=== PATIENT | female | born 1960 | race Caucasian/White ===

== ENCOUNTER 2018-01-17 21:27 | Inpatient (IN) | payer OTHER ==
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
--- OUTSIDE RECORDS SUMMARY | 2018-01-17 21:30 | XMS REPORT ---
:1960 [facility] [address] [place] [address] Care Team Providers Name Role Phone HESHAM MENDOZA Unavailable Unavailable Problems This patient has no known problems. Allergies, Adverse Reactions, Alerts This patient has no known allergies or adverse reactions. Medications This patient has no known medications. Results Test Description Test Time Test Comments Text Results Atomic Results Result Comments BASIC METABOLIC PANEL 2017-02-26 05:26:00 Test Item Value Reference Range Comments SODIUM (BEAKER) (test 139 meq/L 136-145 gyoq=268) POTASSIUM (BEAKER) (test 3.5 meq/L 3.5-5.1 kmat=120) CHLORIDE (BEAKER) (test 95 meq/L 98-107 onpv=177) CO2 (BEAKER) (test yauv=186) 40 meq/L 22-29 BLOOD UREA NITROGEN (BEAKER) 14 mg/dL 7-21 (test fomj=065) CREATININE (BEAKER) (test 0.64 mg/dL 0.57-1.25 ralb=872) GLUCOSE RANDOM (BEAKER) 92 mg/dL 70-105 (test wjau=768) CALCIUM (BEAKER) (test 8.4 mg/dL 8.4-10.2 qfsl=061) EGFR (BEAKER) (test 96 mL/min/1.73 sq m ESTIMATED GFR IS NOT fydi=1843) ACCURATE CREATININE CLEARANCE IN PREDICTING GLOMERULAR FILTRATION RATE. ESTIMATED GFR IS NOT APPLICABLE FOR DIALYSIS PATIENTS. CBC (HEMOGRAM ONLY)2017-02-26 05:21:00 Test Item Value Reference Range Comments WHITE BLOOD CELL COUNT (BEAKER) (test audj=362) 6.4 K/ L 4.0-10.0 RED BLOOD CELL COUNT (BEAKER) (test mana=084) 4.17 M/ L 4.00-5.00 HEMOGLOBIN (BEAKER) (test lnol=519) 12.0 GM/DL 12.0-15.0 HEMATOCRIT (BEAKER) (test dzpe=204) 39.4 % 36.0-45.0 MEAN CORPUSCULAR VOLUME (BEAKER) (test ftjy=547) 94.4 fL 82.0-99.0 MEAN CORPUSCULAR HEMOGLOBIN (BEAKER) (test 28.8 pg 27.0-33.0 sign=281) MEAN CORPUSCULAR HEMOGLOBIN CONC (BEAKER) (test 30.5 GM/DL 32.0-36.0 vvsz=369) RED CELL DISTRIBUTION WIDTH (BEAKER) (test 13.1 % 10.3-14.2 jaah=674) PLATELET COUNT (BEAKER) (test umrp=191) 137 K/CU MM 150-430 MEAN PLATELET VOLUME (BEAKER) (test oyfk=739) 7.2 fL 6.5-10.5 NUCLEATED RED BLOOD CELLS (BEAKER) (test 0 /100 WBC 0-0 rvif=164) 0.00POCT-GLUCOSE [id number] 17:50:00 Test Item Value Reference Range Comments POC-GLUCOSE METER (BEAKER) 118 mg/dL 70-110 TESTED AT [address] (test wnkm=3614) [place] [address] POCT-GLUCOSE [id number] 11:59:00 Test Item Value Reference Range Comments POC-GLUCOSE METER (BEAKER) 247 mg/dL 70-110 TESTED AT [address] (test rnou=6696) [place] [id number] POCT-GLUCOSE [id number] 07:54:00 Test Item Value Reference Range Comments POC-GLUCOSE METER (BEAKER) 141 mg/dL 70-110 TESTED AT [address] (test wdeq=0219) [place] [id number] CBC W/PLT COUNT & AUTO [id number] 03:45:00 Test Item Value Reference Range Comments WHITE BLOOD CELL COUNT (BEAKER) (test dmvp=436) 4.9 K/ L 4.0-10.0 RED BLOOD CELL COUNT (BEAKER) (test fyto=073) 4.03 M/ L 4.00-5.00 HEMOGLOBIN (BEAKER) (test ujop=118) 12.2 GM/DL 12.0-15.0 HEMATOCRIT (BEAKER) (test zmrs=841) 37.3 % 36.0-45.0 MEAN CORPUSCULAR VOLUME (BEAKER) (test aivy=886) 92.5 fL 82.0-99.0 MEAN CORPUSCULAR HEMOGLOBIN (BEAKER) (test 30.3 pg 27.0-33.0 jnwu=763) MEAN CORPUSCULAR HEMOGLOBIN CONC (BEAKER) (test 32.8 GM/DL 32.0-36.0 mpiz=810) RED CELL DISTRIBUTION WIDTH (BEAKER) (test 14.3 % 10.3-14.2 nfrl=749) PLATELET COUNT (BEAKER) (test ptgh=119) 122 K/CU MM 150-430 MEAN PLATELET VOLUME (BEAKER) (test eloo=281) 8.0 fL 6.5-10.5 NUCLEATED RED BLOOD CELLS (BEAKER) (test 0 /100 WBC 0-0 sizq=618) NEUTROPHILS RELATIVE PERCENT (BEAKER) (test 88 % cwgp=997) LYMPHOCYTES RELATIVE PERCENT (BEAKER) (test 10 % ijzy=593) MONOCYTES RELATIVE PERCENT (BEAKER) (test 2 % cwsv=253) EOSINOPHILS RELATIVE PERCENT (BEAKER) (test 0 % sipz=881) BASOPHILS RELATIVE PERCENT (BEAKER) (test 0 % fedd=027) NEUTROPHILS ABSOLUTE COUNT (BEAKER) (test 4.32 K/ L 1.80-8.00 vkcr=475) LYMPHOCYTES ABSOLUTE COUNT (BEAKER) (test 0.49 K/ L 1.48-4.50 yegy=976) MONOCYTES ABSOLUTE COUNT (BEAKER) (test 0.09 K/ L 0.00-1.30 yudr=512) EOSINOPHILS ABSOLUTE COUNT (BEAKER) (test 0.02 K/ L 0.00-0.50 zqsj=539) BASOPHILS ABSOLUTE COUNT (BEAKER) (test 0.01 K/ L 0.00-0.20 askk=574) [id number] 03:29:00 Test Item Value Reference Range Comments MAGNESIUM (BEAKER) (test 1.8 mg/dL 1.6-2.6 Specimen slightly hemolyzed youb=656) BASIC METABOLIC [id number] 03:29:00 Test Item Value Reference Range Comments SODIUM (BEAKER) (test 139 meq/L 136-145 asol=093) POTASSIUM (BEAKER) (test 4.4 meq/L 3.5-5.1 Specimen slightly vsll=350) hemolyzed CHLORIDE (BEAKER) (test 93 meq/L 98-107 kfqj=350) CO2 (BEAKER) (test 39 meq/L 22-29 bvtv=866) BLOOD UREA NITROGEN 15 mg/dL 7-21 (BEAKER) (test ducr=706) CREATININE (BEAKER) (test 0.67 mg/dL 0.57-1.25 Specimen slightly cpde=246) hemolyzed GLUCOSE RANDOM (BEAKER) 150 mg/dL 70-105 (test hnpt=116) CALCIUM (BEAKER) (test 8.6 mg/dL 8.4-10.2 losv=898) EGFR (BEAKER) (test 91 mL/min/1.73 sq m ESTIMATED GFR IS NOT uhso=6035) ACCURATE CREATININE CLEARANCE IN PREDICTING GLOMERULAR FILTRATION RATE. ESTIMATED GFR IS NOT APPLICABLE FOR DIALYSIS PATIENTS. POCT-GLUCOSE [id number] 00:05:00 Test Item Value Reference Range Comments POC-GLUCOSE METER (BEAKER) 117 mg/dL 70-110 TESTED AT [address] (test hktq=1840) [facility] [address] POCT-GLUCOSE [id number] 18:17:00 Test Item Value Reference Range Comments POC-GLUCOSE METER (BEAKER) 141 mg/dL 70-110 TESTED AT [address] (test vyma=0026) [place] [id number] CREATINE KINASE (CK), TOTAL AND [id number] 15:43:00 Test Item Value Reference Range Comments CREATINE KINASE TOTAL (BEAKER) (test fgvl=316) 31 U/L 29-200 CREATINE KINASE-MB (BEAKER) (test klzi=573) 1.3 ng/mL 0.0-6.6 CREATINE KINASE-MB INDEX (BEAKER) (test hzyo=067) 4.2 % Effective 08/09/2014: CK-MB Reference Range ChangeNew: 0.0-6.6 Previous: 0.0- 4.9CK-MB Reference Range:<6.7 Normal6.7-10.0 Borderline>10.0 AbnormalBLOOD GAS, [id number] 15:26:00 Test Item Value Reference Range Comments PH ARTERIAL (BEAKER) (test cxfu=783) 7.41 7.35-7.45 PCO2 ARTERIAL (BEAKER) (test tzbg=348) 68 mmHg 35-45 PO2 ARTERIAL (BEAKER) (test qhpj=329) 67 mmHg 80-90 O2 SATURATION ARTERIAL (BEAKER) (test dyql=087) 92.2 % 96.0-97.0 HCO3 ARTERIAL (BEAKER) (test ergz=425) 42 mmol/L 21-29 BASE EXCESS ARTERIAL (BEAKER) (test jfoe=121) 14.8 mmol/L -2.0-3.0 PATIENT TEMPERATURE (BEAKER) (test ewvq=2102) 37.5 C FIO2 (BEAKER) (test udva=5670) 35.0 % POCT-GLUCOSE [id number] 11:45:00 Test Item Value Reference Range Comments POC-GLUCOSE METER (BEAKER) 122 mg/dL 70-110 TESTED AT [facility] [address] [facility] (test rmcl=4251) [facility] [address] CREATINE KINASE (CK), TOTAL AND [id number] 10:29:00 Test Item Value Reference Range Comments CREATINE KINASE TOTAL (BEAKER) (test qusm=470) 31 U/L 29-200 CREATINE KINASE-MB (BEAKER) (test dvuc=570) 1.5 ng/mL 0.0-6.6 CREATINE KINASE-MB INDEX (BEAKER) (test svww=311) 4.8 % Effective 08/09/2014: CK-MB Reference Range ChangeNew: 0.0-6.6 Previous: 0.0- 4.9CK-MB Reference Range:<6.7 Normal6.7-10.0 Borderline>10.0 AbnormalTROPONIN [id number] 10:29:00 Test Item Value Reference Range Comments TROPONIN I (BEAKER) (test zthc=410) < ng/mL 0.00-0.03 Effective 08/09/2014: Reference Range ChangeNew: 0.00-0.03 Previous 0.00- 0.15Troponin I (TnI) levels must be interpreted in the context of the presenting symptoms and the clinical findings. Elevated TnI levels indicate myocardial damage, but are not specific for ischemic heart disease. Elevated TnI levels are seen in patients with other cardiac conditions (including myocarditis and congestive heartfailure), and slight TnI elevations occur in patients with other conditions, including sepsis, renalfailure, acidosis, acute neurological disease, and persistent tachyarrhythmia.[id number] 10:22:00 Test Item Value Reference Range Comments PARTIAL THROMBOPLASTIN TIME (BEAKER) (test 22.5 seconds 22.5-36.0 sndz=518) PROTHROMBIN TIME/[id number] 10:21:00 Test Item Value Reference Range Comments PROTIME (BEAKER) (test tifc=678) 12.4 seconds 11.7-14.7 INR (BEAKER) (test ikqi=378) 0.9 <=5.9 RECOMMENDED COUMADIN/WARFARIN INR THERAPY RANGESSTANDARD DOSE: 2.0 - 3.0 Includes: PROPHYLAXIS forvenous thrombosis, systemic embolization; TREATMENT for venous thrombosis and/or pulmonary embolus.HIGH RISK: Target INR is 2.5-3.5 for patients with mechanical heart valves.BLOOD GAS, [id number] 10:17:00 Test Item Value Reference Range Comments PH ARTERIAL (BEAKER) (test kkwu=493) 7.42 7.35-7.45 PCO2 ARTERIAL (BEAKER) (test nbnj=438) 63 mmHg 35-45 PO2 ARTERIAL (BEAKER) (test kbsl=181) 51 mmHg 80-90 O2 SATURATION ARTERIAL (BEAKER) (test jawm=486) 85.7 % 96.0-97.0 HCO3 ARTERIAL (BEAKER) (test pmbm=618) 40 mmol/L 21-29 BASE EXCESS ARTERIAL (BEAKER) (test ozay=279) 12.7 mmol/L -2.0-3.0 PATIENT TEMPERATURE (BEAKER) (test jjyp=5024) 37.0 C FIO2 (BEAKER) (test wohr=8361) 40.0 % PLATELET [id number] 10:13:00 Test Item Value Reference Range Comments PLATELET COUNT (BEAKER) (test fuxg=936) 111 K/CU MM 150-430
[2018-01-17] MEDS ORDERED: METHYLPREDNISOLONE 125 MG INJ ONE (21:43)
[2018-01-17] MEDS ORDERED: IPRATROPIUM BROM 0.5MG/2.5ML ONE (21:43)
[2018-01-17] MEDS ORDERED: LEVALBUTEROL 0.63 MG/3 ML NEB ONE (21:43)
[2018-01-17] MEDS ORDERED: MEPERIDINE HCL 25 MG/0.5 ML ONE (22:26)
[2018-01-17 22:27] LABS: Absolute Lymphocytes (CBC) 2.5 K/uL (0.7-4.9); Absolute Monocytes 1.1 K/uL (0.1-1.3); Basophils % 0.3 % (0-1.3); Eosinophils % 1.1 % (0-4.4); Hematocrit 39.2 % (36.0-45.0); Lymphocytes % 25.7 % (15.3-44.8); MCH 27.6 pg (27.0-35.0); MCV 84.9 fL (80-100); MPV 7.6 fL (7.6-11.3); Monocytes % 11.3 % (3.3-12.3); RBC Red Blood Cell Count 4.62 M/uL (3.86-4.86)
[2018-01-17 22:33] LABS: Protime INR 0.84
[2018-01-17 23:10] LABS: Bicarbonate 39 mEq/L (21-31); Potassium 3.8 mEq/L (3.6-5.0); Sodium Level 141 mEq/L (135-145)
[2018-01-17 23:14] LABS: BUN Blood Urea Nitrogen 10 mg/dL (6-20); Glucose Level 103 mg/dL (65-120)
--- NOTE | 2018-01-18 00:40 | ER ---
Nurse's Notes [facility] Name: Vikki Zamudio Age: 57 yrs Sex: Female : 1960 Arrival Date: 01/17/2018 Time: 21:28 Bed 4 Private MD: Diagnosis: Chronic obstructive pulmonary disease, unspecified;Dyspnea, unspecified Presentation: 01/17 21:28 Presenting complaint: Patient states: neck pain x 1.5 weeks and was recently started on aa1 steroids and Flexeril but reports about 3 hrs ago it became worse and she started having SOB. States, "It feels like someone hit me with a baseball bat." EMS reports O2 sat on 2L home O2 was 78% which increased to 92% after breathing tx. Upon arrival to ED pt RA O2 sat 90%. Transition of care: patient was not received from another setting of care. Onset of symptoms was January 17, 2018 at 18:30. Initial Sepsis Screen: Does the patient meet any 2 criteria? No. Patient's initial sepsis screen is negative. Does the patient have a suspected source of infection? Yes: Productive cough/pneumonia. Care prior to arrival: Medication(s) given: Albuterol Neb x 1, Atrovent Neb x 1. 21:28 Method Of Arrival: EMS: [facility] aa1 21:28 Acuity: LIZETH 3 aa1 Historical: - Allergies: 21:51 Codeine; aa1 - Home Meds: 21:51 Albuterol Inhl [Active]; aspirin 81 mg Oral TbEC 1 tab once daily [Active]; prednisone aa1 20 mg oral tab 1 tab 2 times per day [Active]; clonazepam 0.5 mg oral tab 1 tab daily [Active]; cyclobenzaprine 5 mg Oral tab 1 tab nightly [Active]; fluticasone 50 mcg/actuation nasal spsn 1 spray once daily [Active]; furosemide 20 mg Oral tab 1 tab once daily [Active]; acetazolamide 250 mg Oral tab 1 tab 2 times per day [Active]; atorvastatin 20 mg oral tab 1 tab once daily [Active]; levothyroxine 112 mcg oral tab 1 tab once daily [Active]; carvedilol 6.25 mg oral tab 1 tab 2 times per day [Active]; Daliresp 500 mcg oral tab 1 tab once daily [Active]; latanoprost 0.005 % ophthalmic drop 1 drop once daily [Active]; - PMHx: 21:51 CHF; COPD; High Cholesterol; Hypertension; Hypothyroidism; Panic Attacks; aa1 - Immunization history:: Flu vaccine is not up to date. - Social history:: Smoking status: Patient/guardian denies using tobacco, the patient reports quitting approximately 0.2 years ago. - Family history:: not pertinent. - Hospitalizations: : No recent hospitalization is reported. Screenin:30 Abuse screen: Denies threats or abuse. Denies injuries from another. Nutritional aa1 screening: No deficits noted. Tuberculosis screening: No symptoms or risk factors identified. Fall Risk None identified. Assessment: 21:30 General: Appears in no apparent distress. uncomfortable, obese, Behavior is calm, aa1 cooperative, appropriate for age. Pain: Complains of pain in back and neck Pain currently is 10 out of 10 on a pain scale. Pain began 1 week ago Is continuous. Neuro: Level of Consciousness is awake, alert, obeys commands, Oriented to person, place, time, situation. Cardiovascular: Heart tones S1 S2 Rhythm is regular. Respiratory: Reports shortness of breath at rest cough that is productive, Airway is patent Respiratory effort is even, labored, Respiratory pattern is symmetrical, tachypnea Breath sounds with wheezes bilaterally. the patient has moderate shortness of breath. GI: No signs and/or symptoms were reported involving the gastrointestinal system. : No signs and/or symptoms were reported regarding the genitourinary system. EENT: No signs and/or symptoms were reported regarding the EENT system. Derm: Skin is intact, is healthy with good turgor, Skin is pink, warm \\T\\ dry. Musculoskeletal: Circulation, motion, and sensation intact. Capillary refill < 3 seconds, Range of motion: intact in all extremities. 22:32 Reassessment: Patient appears in no apparent distress at this time. Patient and/or aa1 family updated on plan of care and expected duration. Pain level reassessed. Patient is alert, oriented x 3, equal unlabored respirations, skin warm/dry/pink. Awaiting lab results. Pt reports SOB improved but still having severe pain in neck. MD notified Patient states symptoms have improved. 23:36 Reassessment: Patient appears in no apparent distress at this time. Patient and/or aa1 family updated on plan of care and expected duration. Pain level reassessed. Patient is alert, oriented x 3, equal unlabored respirations, skin warm/dry/pink. Awaiting provider reassessment. 01/18 00:34 Reassessment: Patient appears in no apparent distress at this time. Patient and/or aa1 family updated on plan of care and expected duration. Pain level reassessed. Patient is alert, oriented x 3, equal unlabored respirations, skin warm/dry/pink. Awaiting admission orders. 01:32 Reassessment: Patient appears in no apparent distress at this time. Patient is alert, aa1 oriented x 3, equal unlabored respirations, skin warm/dry/pink. Report given to Aby on 4th floor Patient denies pain at this time. Patient states feeling better. Vital Signs: 01/17 21:28 BP 169 / 105; Pulse 78; Resp 30; Temp 99.1; Pulse Ox 90% on R/A; Weight 125.19 kg; aa1 Height 5 ft. 9 in. (175.26 cm); Pain 10/10; 22:32 BP 147 / 95; Pulse 84; Resp 24; Pulse Ox 93% on 2 lpm NC; aa1 23:36 BP 125 / 72; Pulse 77; Resp 22; Pulse Ox 95% on 2 lpm NC; aa1 01/18 00:34 BP 131 / 67; Pulse 68; Resp 20; Pulse Ox 93% on 2 lpm NC; aa1 01:27 BP 154 / 87; Pulse 66; Resp 20; Temp 98.8; Pulse Ox 96% on 3 lpm NC; Pain 0/10; aa1 01/17 21:28 Body Mass Index 40.76 (125.19 kg, 175.26 cm) [facility] ED Course: 01/17 21:28 Patient arrived in ED. am2 21:28 Arm band placed on left wrist. Patient placed in an exam room, on a stretcher. aa1 21:30 Donta An MD is Attending Physician. rn 21:30 Patient has correct armband on for positive identification. Bed in low position. Call aa1 light in reach. Side rails up X2. supervisor marble on. Pulse ox on. NIBP on. Warm blanket given. 21:30 Initial lab(s) drawn, by ED staff, sent to lab. Inserted saline lock: 20 gauge in right aa1 hand, using aseptic technique. ,using aseptic technique. by García Ramirez RN. 21:31 Oxygen administration via nasal cannula \\T\\ 2L/min. aa1 21:39 Pooja Levine RN is Primary Nurse. aa1 21:44 Triage completed. aa1 22:14 X-ray completed. Portable x-ray completed in exam room. Patient tolerated procedure ml well. 22:17 XRAY CXR (1 view) In Process Unspecified. EDMS 22:35 EKG done, by ED staff, reviewed by Donta An MD. aa1 01/18 00:35 No provider procedures requiring assistance completed. Patient admitted, IV remains in aa1 place. 00:38 Sarah Young MD is Hospitalizing Provider. rn Administered Medications: 01/17 21:52 Drug: Xopenex (3) 1.25 mg Route: Inhalation; tl2 21:52 Drug: AtroVENT Aerosol 0.5 mg Route: Inhalation; tl2 21:53 Drug: SOLU-Medrol 125 mg Route: IVP; Site: right hand; tl2 22:35 Drug: Demerol 25 mg Route: IVP; Site: right hand; aa1 01/18 00:54 Follow up: Response: No adverse reaction; Pain is decreased aa1 Outcome: 00:39 Decision to Hospitalize by Provider. rn 01:54 Admitted to Tele accompanied by tech, via wheelchair, room 428, with oxygen, with aa1 chart, Report called to Aby 01:54 Condition: stable 01:54 Instructed on the need for admit, Demonstrated understanding of instructions. 01:55 Patient left the ED. aa1 Signatures: Dispatcher [employer] EDMS Pooja Levine, RN RN aa1 Candida Turcios Roman, MD MD rn Knox, Taylor, RN RN tl2 Marleny Vazquez am2 Corrections: (The following items were deleted from the chart) 01/17 23:37 23:36 BP 125 / 72; Pulse 77bpm; Resp 22bpm; Pulse Ox 93% 2 lpm Nasal Cannula; aa1 aa1
--- NOTE | 2018-01-18 00:40 | EDPHYS ---
Physician Documentation [facility] Name: Vikki Zamudio Age: 57 yrs Sex: Female : 1960 Arrival Date: 01/17/2018 Time: 21:28 Bed 4 Private MD: ED Physician Donta An HPI: 01/17 21:45 This 57 yrs old Female presents to ER via EMS with complaints of Breathing rn Difficulty. 21:45 The patient has shortness of breath at rest, with light activity. Onset: The rn symptoms/episode began/occurred this morning. Duration: The symptoms are continuous. Severity of symptoms: At their worst the symptoms were moderate in the emergency department the symptoms have improved. The patient has experienced similar episodes in the past. Reports sob, productive cough, no fever, got worse this AM, no chest pain. seen recently for "crick in my neck", given steroids. No trauma. . Historical: - Allergies: 21:51 Codeine; aa1 - Home Meds: 21:51 Albuterol Inhl [Active]; aspirin 81 mg Oral TbEC 1 tab once daily [Active]; prednisone aa1 20 mg oral tab 1 tab 2 times per day [Active]; clonazepam 0.5 mg oral tab 1 tab daily [Active]; cyclobenzaprine 5 mg Oral tab 1 tab nightly [Active]; fluticasone 50 mcg/actuation nasal spsn 1 spray once daily [Active]; furosemide 20 mg Oral tab 1 tab once daily [Active]; acetazolamide 250 mg Oral tab 1 tab 2 times per day [Active]; atorvastatin 20 mg oral tab 1 tab once daily [Active]; levothyroxine 112 mcg oral tab 1 tab once daily [Active]; carvedilol 6.25 mg oral tab 1 tab 2 times per day [Active]; Daliresp 500 mcg oral tab 1 tab once daily [Active]; latanoprost 0.005 % ophthalmic drop 1 drop once daily [Active]; - PMHx: 21:51 CHF; COPD; High Cholesterol; Hypertension; Hypothyroidism; Panic Attacks; aa1 - Immunization history:: Flu vaccine is not up to date. - Social history:: Smoking status: Patient/guardian denies using tobacco, the patient reports quitting approximately 0.2 years ago. - Family history:: not pertinent. - Hospitalizations: : No recent hospitalization is reported. ROS: 21:45 Constitutional: Negative for fever, chills, and weight loss, Eyes: Negative for injury, rn pain, redness, and discharge, Cardiovascular: Negative for chest pain, palpitations, and edema, Respiratory: + cough and sob Abdomen/GI: Negative for abdominal pain, nausea, vomiting, diarrhea, and constipation, Back: Negative for injury and pain, MS/Extremity: Negative for injury and deformity, Skin: Negative for injury, rash, and discoloration, Neuro: Negative for headache, weakness, numbness, tingling, and seizure. Exam: 21:45 Constitutional: This is a well developed, well nourished patient who is awake, alert, rn + mild tachypnea Head/Face: Normocephalic, atraumatic. Eyes: Pupils equal round and reactive to light, extra-ocular motions intact. Lids and lashes normal. Conjunctiva and sclera are non-icteric and not injected. Cornea within normal limits. Periorbital areas with no swelling, redness, or edema. ENT: dry MM, no stridor Neck: Trachea midline, no thyromegaly or masses palpated, and no cervical lymphadenopathy. Supple, full range of motion without nuchal rigidity, or vertebral point tenderness. No Meningismus. Cardiovascular: Regular rate and rhythm with a normal S1 and S2. No gallops, murmurs, or rubs. Normal PMI, no JVD. No pulse deficits. Respiratory: + mild tachypnea with poor inspiratory air movement MS/ Extremity: Pulses equal, no cyanosis. Neurovascular intact. Full, normal range of motion. Equal circumference. Neuro: Awake and alert, GCS 15, oriented to person, place, time, and situation. Cranial nerves II-XII grossly intact. Motor strength 5/5 in all extremities. Sensory grossly intact. 23:49 ECG was reviewed by the Attending Physician. rn Vital Signs: 21:28 BP 169 / 105; Pulse 78; Resp 30; Temp 99.1; Pulse Ox 90% on R/A; Weight 125.19 kg; aa1 Height 5 ft. 9 in. (175.26 cm); Pain 10/10; 22:32 BP 147 / 95; Pulse 84; Resp 24; Pulse Ox 93% on 2 lpm NC; aa1 23:36 BP 125 / 72; Pulse 77; Resp 22; Pulse Ox 95% on 2 lpm NC; aa1 01/18 00:34 BP 131 / 67; Pulse 68; Resp 20; Pulse Ox 93% on 2 lpm NC; aa1 01:27 BP 154 / 87; Pulse 66; Resp 20; Temp 98.8; Pulse Ox 96% on 3 lpm NC; Pain 0/10; aa1 01/17 21:28 Body Mass Index 40.76 (125.19 kg, 175.26 cm) [facility] MDM: 01/17 21:30 Patient medically screened. rn 01/18 00:34 Differential diagnosis: Bronchitis CHF exacerbation, Chronic Obstructive Pulmonary rn Disease pneumonia. Data reviewed: vital signs, nurses notes, lab test result(s), EKG, radiologic studies, plain films, and as a result, I will admit patient. Counseling: I had a detailed discussion with the patient and/or guardian regarding: the historical points, exam findings, and any diagnostic results supporting the discharge/admit diagnosis, lab results, radiology results, the need for further work-up and treatment in the hospital. Response to treatment: the patient's symptoms have mildly improved after treatment, and as a result, I will admit patient. Admission orders: after a detailed discussion of the patient's condition and case, the admit orders are written by me. 01/17 21:36 Order name: Blood Culture Adult (2) rn 01/17 21:36 Order name: BMP; Complete Time: 23:27 01/17 21:36 Order name: BNP rn 01/17 21:36 Order name: CBC with Diff; Complete Time: 23:27 01/17 21:36 Order name: PT-INR; Complete Time: 23:27 01/17 21:36 Order name: Ptt, Activated; Complete Time: 23:27 01/17 21:36 Order name: Troponin (emerg Dept Use Only); Complete Time: 23:27 rn 01/18 01:20 Order name: CBC with Automated Diff EDMS 01/18 01:20 Order name: CBC with Automated Diff EDMS 01/18 01:20 Order name: CBC with Automated Diff EDMS 01/18 01:20 Order name: Comprehensive Metabolic Panel EDMS 01/18 01:20 Order name: Comprehensive Metabolic Panel EDMS 01/18 01:20 Order name: Comprehensive Metabolic Panel EDMS 01/18 01:20 Order name: Magnesium EDMS 01/17 21:36 Order name: XRAY CXR (1 view) rn 01/17 21:36 Order name: EKG; Complete Time: 21:36 rn 01/17 21:36 Order name: Cardiac monitoring; Complete Time: 22:56 rn 01/17 21:36 Order name: EKG - Nurse/Tech; Complete Time: 22:39 rn 01/17 21:36 Order name: IV Saline Lock; Complete Time: 21:53 rn 01/18 01:20 Order name: Heart Healthy [facility] 01/18 01:20 Order name: Magnesium EDFL 01/18 01:20 Order name: Magnesium EDFL 01/18 01:20 Order name: Phosphorus [facility] 01/18 01:20 Order name: Phosphorus EDFL 01/18 01:20 Order name: Phosphorus [facility] 01/18 01:21 Order name: Urinalysis [facility] 01/17 21:36 Order name: Labs collected and sent; Complete Time: 21:53 rn 01/17 21:36 Order name: O2 Per Protocol; Complete Time: 21:39 rn 01/17 21:36 Order name: O2 Sat Monitoring; Complete Time: 21:39 rn EC/28 23:49 Rate is 84 beats/min. Rhythm is regular. QRS [place] is Normal. SD interval is normal. QRS rn interval is normal. QT interval is normal. No Q waves. T waves are Normal. No ST changes noted. Clinical impression: Normal ECG. Interpreted by me. Administered Medications: 21:52 Drug: Xopenex (3) 1.25 mg Route: Inhalation; tl2 21:52 Drug: AtroVENT Aerosol 0.5 mg Route: Inhalation; tl2 21:53 Drug: SOLU-Medrol 125 mg Route: IVP; Site: right hand; tl2 22:35 Drug: Demerol 25 mg Route: IVP; Site: right hand; aa1 01/18 00:54 Follow up: Response: No adverse reaction; Pain is decreased aa1 Disposition: 01/18/18 00:39 Hospitalization ordered by Sarah Young for Inpatient Admission. Preliminary diagnosis are Chronic obstructive pulmonary disease, unspecified, Dyspnea, unspecified. - Bed requested for Telemetry/MedSurg (Inpatient). - Status is Inpatient Admission. aa1 - Condition is Stable. - Problem is an acute exacerbation. - Symptoms have improved. UTI on Admission? No Signatures: Dispatcher [employer] EDMS Sheryl Olivia RN RN Pooja Cuellar RN RN aa1 Donta An MD MD rn Knox, Taylor RN RN tl2
[2018-01-18] MEDS ORDERED: MAGNESIUM HYDROXIDE 8% 30 ML PO PRN (01:17)
[2018-01-18] MEDS ORDERED: ONDANSETRON 4 MG/2 ML VIAL IV PRN (01:17)
[2018-01-18] MEDS: ALBUTEROL 2.5 MG/3 ML NEB SOL NEB SCH ×4 (02:00→19:32)
[2018-01-18] MEDS: IPRATROPIUM BROM 0.5MG/2.5ML NEB SCH ×4 (02:00→19:32)
[2018-01-18] MEDS ORDERED: CYCLOBENZAPRINE 10 MG TAB PO ONE (04:40)
[2018-01-18] MEDS: METHYLPREDNISOLONE 125 MG INJ IV SCH ×3 (05:08→17:07)
--- NOTE | 2018-01-18 06:20 | P.HP ---
Certification for Inpatient Patient admitted to: Inpatient With expected LOS: >2 Midnights Patient will require the following post-hospital care: None Practitioner: I am a practitioner with admitting privileges, knowledge of patient current condition, hospital course, and medical plan of care. Services: Services provided to patient in accordance with Admission requirements found in Title 42 Section 412.3 of the Code of Federal Regulations Patient History Date of Service: 01/18/18 Reason for admission: Acute COPD exacerbation History of Present Illness: Patient is a 57-year-old female who is well known to me from multiple admissions in the past. Patient states she has been getting weighed in her lower extremities for the last few days. She had been doing well and keeping her feet elevated had helped her quite a bit. However, she started drinking more and the swelling in her lower extremity has increased. Patient was brought into the hospital for further evaluation. Patient was given nebs, steroids, and we will also start on antibiotics. Patient may need some diuresis as well. Will need to monitor fluid status very carefully. Otherwise , patient states she stopped smoking 7 8 months ago. She does not smoke and has been doing better and caring for herself. Hopefully this will continue. At this time, we will go ahead and admit patient for treatment of COPD. Allergies codeine [Codeine] Adverse Reaction (Mild, Verified 02/07/16 19:04) itch Home Medications: Clonazepam [Klonopin*] 0.5 mg PO BID PRN #60 tab 04/26/15 Albuterol Sulfate [Proair Hfa] 8.5 gm IH Q6HP PRN 10/22/15 Formoterol Fumarate [Perforomist*] 20 mcg NEB BIDRESP #60 vial.neb 06/02/16 Levothyroxine [Synthroid*] 0.075 mg PO DAILYAC #30 tab 06/02/16 Pantoprazole [Protonix Tab*] 40 mg PO DAILYAC #30 tab 06/02/16 Prednisone [Deltasone*] 10 mg PO DAILY 9 Days #21 tab 09/12/17 Atorvastatin Calcium [Atorvastatin Calcium] 20 mg PO BEDTIME 10/10/17 Carvedilol [Carvedilol] 6.25 mg PO BID 10/10/17 Fluticasone [Flonase 50MCG Nasal [place]*] 1 spr IN DAILY 10/10/17 Furosemide [Furosemide] 20 mg PO DAILY 10/10/17 Latanoprost Ophth [Xalatan 0.005%*] 1 gtt EACH EYE BEDTIME 10/10/17 Nicotine [Nicoderm] 1 patch TD DAILY 10/10/17 Roflumilast [Daliresp*] 500 mcg PO DAILY 10/10/17 Umeclidinium Brm/Vilanterol Tr [Anoro Ellipta 62.5-25 Mcg INH] 1 puff IH DAILY 10/10/17 Prednisone [Deltasone*] 10 mg PO BID #21 tab 10/14/17 Acetazolamide [Diamox*] 250 mg PO BID #60 tab 10/20/17 Prednisone [Deltasone*] 10 mg PO BID 7 Days #14 tab 10/20/17 - Past Medical/Surgical History Has patient received pneumonia vaccine in the past: Yes Diabetic: No -: Severe COPD, oxygen/steroid dependent,Pulmonary-Dr. Do -: Mild pulmonary hypertension -: Hypothyroidism -: Bipolar disorder -: Hypertension -: Chronic low back pain -: Obstructive sleep apnea -: Tobacco abuse -: Appendectomy -: Psychosocial/ Personal History: She lives with a partner. She has 1 child. She is currently disabled. - Family History Father Medical History: Heart disease, Diabetes Notes: from CHF Mother Medical History: Heart disease, Diabetes Notes: from CHF Brother Medical History: Diabetes Sister Medical History: Heart disease, Diabetes Notes: from CHF - Social History Smoking Status: Former smoker Alcohol use: No CD- Drugs: No Caffeine use: Yes Place of Residence: Home Review of Systems 10-point ROS is otherwise unremarkable Physical Examination - Vital Signs Temperature: 99.4 F Blood Pressure: 134/66 Pulse: 90 Respirations: 20 Pulse Ox (%): 90 - Physical Exam General: Alert, In no apparent distress, Oriented x3 HEENT: Atraumatic, PERRLA, Mucous membr. moist/pink, EOMI, Sclerae nonicteric Neck: Supple, 2+ carotid pulse no bruit, No LAD, Without JVD or thyroid abnormality Respiratory: Diminished, Expiratory wheezes Cardiovascular: Regular rate/rhythm, Normal S1 S2, No murmurs Gastrointestinal: Normal bowel sounds, Soft and benign, Non-distended, No tenderness Musculoskeletal: No clubbing, No tenderness, Swelling Integumentary: No rashes Neurological: Normal gait, Normal speech, Normal strength at 5/5 x4 extr, Normal tone, Sensation intact, Cranial nerves 3-12 intact, Normal affect Lymphatics: No axilla or inguinal lymphadenopathy - Studies Laboratory Data (last 24 hrs) 01/17/18 22:14: PT 9.9, INR 0.84, APTT 23.4 L 01/17/18 22:14: WBC 9.7, Hgb 12.7, Hct 39.2, Plt Count 165 01/17/18 22:14: B-Natriuretic Peptide 58 01/17/18 22:14: Sodium 141, Potassium 3.8, BUN 10, Creatinine 0.61, Glucose 103 Assessment & Plan - Problems (Diagnosis) (1) Acute exacerbation of chronic obstructive airways disease Onset Date: 05/09/15 Current Visit: No Status: Acute (2) Atypical angina Onset Date: 09/02/14 Current Visit: No Status: Acute (3) Fever Onset Date: 09/07/14 Current Visit: No Status: Acute Qualifiers: (4) Respiratory distress Onset Date: 05/30/16 Current Visit: No Status: Acute (5) Bipolar 1 disorder Onset Date: 09/12/14 Current Visit: No Status: Chronic (6) Hypertension Onset Date: 03/20/17 Current Visit: No Status: Chronic Qualifiers: (7) Hypothyroidism Onset Date: 09/12/14 Current Visit: No Status: Chronic Qualifiers: (8) Nicotine dependence Onset Date: 03/20/17 Current Visit: No Status: Chronic Qualifiers: (9) Obesity Onset Date: 03/05/17 Current Visit: No Status: Chronic (10) Obstructive sleep apnea Onset Date: 03/20/17 Current Visit: No Status: Chronic (11) Steroid dependent Current Visit: No Status: Chronic (12) Tobacco abuse Onset Date: 03/05/17 Current Visit: No Status: Chronic Discharge Plan: Prison Plan to discharge in: 72 Hours - Advance Directives Does patient have a Living Will: No Does patient have a Durable POA for Healthcare: No - Code Status/Comfort Care Code Status Assessed: Yes Code Status: Full Code Critical Care: No Time Spent Managing PTS Care (In Minutes): 50
[2018-01-18 07:40] LABS: Absolute Lymphocytes (CBC) 0.6 K/uL (0.7-4.9); Absolute Monocytes 0.1 K/uL (0.1-1.3); Absolute Neutrophil 8.2 K/uL (1.8-8.0); Basophils % 0.1 % (0-1.3); Eosinophils % 0.1 % (0-4.4); Lymphocytes % 6.7 % (15.3-44.8); MCH 27.5 pg (27.0-35.0); MCV 85.6 fL (80-100); MPV 7.5 fL (7.6-11.3); Monocytes % 0.9 % (3.3-12.3); RBC Red Blood Cell Count 4.44 M/uL (3.86-4.86)
[2018-01-18] MEDS: CEFTRIAXONE/SWI 1gm 1 GM/10 ML SYR IV SCH (08:31)
[2018-01-18] MEDS: ENOXAPARIN 40 MG/0.4 ML SQ SCH (08:31)
[2018-01-18 08:34] LABS: ALT/SGPT 19 IU/L (10-60); AST/SGOT 19 IU/L (10-42); Albumin 3.7 g/dL (3.2-5.5); Alkaline Phosphatase 79 IU/L (42-121); BUN Blood Urea Nitrogen 11 mg/dL (6-20); Bilirubin Total 0.4 mg/dL (0.3-1.2); Glucose Level 168 mg/dL (65-120); Phosphorus 5.4 mg/dL (2.5-4.3); Protein, Total 6.4 g/dL (6.0-8.3)
[2018-01-18 08:35] LABS: Bicarbonate 40 mEq/L (21-31); Potassium 4.9 mEq/L (3.6-5.0); Sodium Level 140 mEq/L (135-145)
[2018-01-18] MEDS ORDERED: CEFTRIAXONE 1 GM/NS 50 ML 1 GM/50 ML BAG IV SCH (09:00)
[2018-01-18] MEDS: AZITHROMYCIN IV 250 MG in NA CHLORIDE 0.9% 250 ML IVPB SCH (09:07)
--- NOTE | 2018-01-18 10:06 | RAD REPORT ---
EXAM DESCRIPTION: RAD - Chest Single View - 01/17/2018 10:17 pm CLINICAL HISTORY: Cough, dyspnea, shortness of breath COMPARISON: October 15 TECHNIQUE: AP portable chest image was obtained 2206 hours . FINDINGS: No peripheral mass, consolidation or failure finding. Patient has chronic interstitial ramo g disease that is similar to the comparison. Trachea is midline. Heart and vasculature are normal. No measurable pleural effusion and no pneumothorax. No gross bony abnormality seen. No acute aortic fin dings suspected. IMPRESSION: No acute cardiopulmonary process. Chronic interstitial lung disease is present similar to comparison.
[2018-01-18 10:12] LABS: Blood Morphology Comment NOT SEEN (NOT SEEN); Platelet Estimate ADEQ
[2018-01-18 12:55] LABS: Urine Appearance CLEAR; Urine Bilirubin NEGATIVE (NEG); Urine Blood NEGATIVE (NEG); Urine Color YELLOW; Urine Glucose NEGATIVE (NEG); Urine Protein NEGATIVE (NEG); Urine Specific Gravity 1.015 (1.005-1.030); Urine Urobilinogen 0.2 mg/dL (0.2-1.0)
[2018-01-18 13:10] LABS: Urine Microscopic Reflex NO UMIC
[2018-01-18] MEDS: CYCLOBENZAPRINE 10 MG TAB PO PRN (17:05)
[2018-01-18] MEDS: BENZONATATE 100 MG CAP PO PRN (17:06)
[2018-01-18] MEDS: ACETAMINOPHEN 500 MG TAB PO PRN (18:46)
[2018-01-18] MEDS: NICOTINE 21 MG/PAT TD SCH (21:13)
[2018-01-18] MEDS: HYDROCODONE/APAP 10/325 TAB PO PRN (23:05)
[2018-01-19] MEDS: METHYLPREDNISOLONE 125 MG INJ IV SCH ×4 (00:35→17:38)
[2018-01-19] MEDS: IPRATROPIUM BROM 0.5MG/2.5ML NEB SCH ×4 (01:10→20:01)
[2018-01-19] MEDS: ALBUTEROL 2.5 MG/3 ML NEB SOL NEB SCH ×4 (01:10→20:01)
[2018-01-19] MEDS: HYDROCODONE/APAP 10/325 TAB PO PRN ×3 (06:22→20:34)
[2018-01-19 06:28] LABS: ALT/SGPT 17 IU/L (10-60); AST/SGOT 19 IU/L (10-42); Albumin 3.4 g/dL (3.2-5.5); Alkaline Phosphatase 69 IU/L (42-121); BUN Blood Urea Nitrogen 13 mg/dL (6-20); Bilirubin Total 0.5 mg/dL (0.3-1.2); Glucose Level 144 mg/dL (65-120); Magnesium 2.2 mg/dL (1.8-2.5); Phosphorus 4.3 mg/dL (2.5-4.3)
[2018-01-19 06:29] LABS: Potassium 4.5 mEq/L (3.6-5.0); Sodium Level 141 mEq/L (135-145)
[2018-01-19 06:32] LABS: Bicarbonate 42 mEq/L (21-31)
[2018-01-19 06:44] LABS: Absolute Lymphocytes (CBC) 0.8 K/uL (0.7-4.9); Absolute Monocytes 0.3 K/uL (0.1-1.3); Basophils % 0.1 % (0-1.3); Hematocrit 35.8 % (36.0-45.0); MCH 27.7 pg (27.0-35.0); MCV 84.4 fL (80-100); MPV 7.8 fL (7.6-11.3); Monocytes % 3.5 % (3.3-12.3); RBC Red Blood Cell Count 4.25 M/uL (3.86-4.86)
--- NOTE | 2018-01-19 07:19 | EKG ---
Test Date: 2018-01-17 Test Time: 22:33:05 Middleware Architect: MEASUREMENT RESULTS: Intervals: Rate: 94 DC: 142 QRSD: 78 QT: 360 QTc: 450 [place]: P: 84 DC: 142 QRS: 78 T: 69 INTERPRETIVE STATEMENTS: Sinus rhythm with sinus arrhythmia Normal ECG Compared to ECG 10/15/2017 05:01:57 Right-axis deviation no longer present Myocardial infarct finding no longer present Electronically Signed On 01-19-18 07:18:47 CDT by Carlos Montaño
[2018-01-19 07:40] LABS: Blood Morphology Comment NOT SEEN (NOT SEEN); Platelet Estimate ADEQ; Urine White Blood Cell Casts OK
[2018-01-19] MEDS: ENOXAPARIN 40 MG/0.4 ML SQ SCH (08:56)
[2018-01-19] MEDS: NICOTINE 21 MG/PAT TD SCH (08:57)
[2018-01-19] MEDS: AZITHROMYCIN IV 250 MG in NA CHLORIDE 0.9% 250 ML IVPB SCH (08:58)
[2018-01-19] MEDS: CEFTRIAXONE/SWI 1gm 1 GM/10 ML SYR IV SCH (09:00)
--- NOTE | 2018-01-19 10:33 | EKG ---
Test Date: 2018-01-17 Test Time: 22:33:58 [employer]el Supervisor: MEASUREMENT RESULTS: Intervals: Rate: 84 [place]: 146 QRSD: 84 QT: 364 QTc: 430 [place]: P: 72 [place]: 146 QRS: 77 T: 72 INTERPRETIVE STATEMENTS: Sinus rhythm with marked sinus arrhythmia Otherwise normal ECG Compared to ECG 01/17/2018 22:33:05 No significant changes Electronically Signed On 01-19-18 10:32:42 CDT by Carlos Montaño
[2018-01-19] MEDS: BENZONATATE 100 MG CAP PO PRN (12:28)
[2018-01-19] MEDS ORDERED: TRAMADOL HCL 50 MG TAB PO PRN (13:20)
[2018-01-19] MEDS: LORazepam 2 MG/ML VIAL IV PRN ×2 (13:42→20:19)
[2018-01-19 15:14] LABS: Arterial Blood Carboxyhemoglob 1.3 % (0-1.5); Blood Gas Oxyhemoglobin 77.2 % (94-97); Blood O2 Saturation 79.6 % (92-98.5)
--- NOTE | 2018-01-19 15:48 | RAD REPORT ---
EXAM DESCRIPTION: Nel Single View01/19/2018 3:18 pm CLINICAL HISTORY: Shortness of breath COMPARISON: January 17 FINDINGS: The lungs appear clear of acute infiltrate. The heart is normal size IMPRESSION: No acute abnormalities displayed
[2018-01-19] MEDS ORDERED: LORazepam 2 MG/ML VIAL IV ONE (17:31)
--- NOTE | 2018-01-19 18:25 | P.PN ---
Subjective Date of Service: 01/19/18 Primary Care Provider: Dr. Enriquez Chief Complaint: Acute COPD exacerbation Subjective: Other (Patient with respiratory distress. Patient was having increasing shortness of breath with anxiety. She also reported some neck pain.) Physical Examination - Vital Signs Temperature: 97.8 F Blood Pressure: 136/60 Pulse: 73 Respirations: 20 Pulse Ox (%): 87 - Physical Exam General: Alert, Other (Patient appears very anxious but appropriate. Patient answers questions.) HEENT: Atraumatic Neck: Supple Respiratory: Expiratory wheezes (Bilateral), Other (Poor inspiration and expiration.) Cardiovascular: Abnormal pulses (Sinus tachycardia) Gastrointestinal: Normal bowel sounds, Non-distended, No ascites, No tenderness , No masses, No rebound Musculoskeletal: No erythema, No tenderness, No warmth Integumentary: No erythema, No warmth, No cyanosis, Tenderness/swelling (Mild edema to the lower extremities) Neurological: Normal speech, Normal strength at 5/5 x4 extr, Normal tone, Normal affect - Studies Medications List Reviewed: Yes Assessment & Plan - Problems (Diagnosis) (1) Acute and chronic respiratory failure ([id number]-[id number]) Onset Date: 03/05/17 Current Visit: No Status: Acute Plan: Patient was on a nasal cannular earlier. Patient was having increasing shortness of breath. ABG ordered. Patient switched to BiPAP. Patient still with increased anxiety. Patient still tachypneic at times. Will transition the patient to ICU for close monitoring. Will discuss case with pulmonology. If her condition continues the patient may need to be intubated. Will recheck ABG. X-ray shows no significant pneumonia. Patient on DVT prophylaxis, IV antibiotic therapy, IV steroids, and medication for anxiety. Will continue monitor patient closely. Patient currently on BiPAP. Patient started on her medications for CHF. Patient likely has underlying obesity hypoventilation syndrome. Will discuss case with PCP who will take over tomorrow. Qualifiers: Respiratory failure complication: hypoxia and hypercapnia Qualified Code(s) : J96.21 - Acute and chronic respiratory failure with hypoxia; J96.22 - Acute and chronic respiratory failure with hypercapnia; J96.22 - Acute and chronic respiratory failure with hypercapnia; J96.22 - Acute and chronic respiratory failure with hypercapnia (2) Acute exacerbation of chronic obstructive airways disease Onset Date: 05/09/15 Current Visit: No Status: Acute Plan: Will continue with BiPAP. Will recheck ABG. Patient on IV steroids, COPD medication. Pulmonology consulted. Await further recommendation. (3) Acute respiratory acidosis Onset Date: 02/08/16 Current Visit: No Status: Acute Plan: Will recheck ABG. Will continue monitor closely. Patient be transferred to ICU. (4) CHF (congestive heart failure) Onset Date: 05/09/15 Current Visit: No Status: Chronic Plan: Patient with history of CHF. This is likely diastolic dysfunction. Patient on Lasix. Will continue with this. Will give IV Lasix at this time. Qualifiers: Heart failure type: diastolic Heart failure chronicity: acute on chronic Qualified Code(s): I50.33 - Acute on chronic diastolic (congestive) heart failure (5) Bipolar 1 disorder Onset Date: 09/12/14 Current Visit: No Status: Chronic Plan: Will need to review home medication. Will provide medication for anxiety. (6) Hypertension Onset Date: 03/20/17 Current Visit: No Status: Chronic Plan: Will continue with her medication. Will monitor and adjust appropriately. Qualifiers: Hypertension type: essential hypertension (7) Hypothyroidism Onset Date: 09/12/14 Current Visit: No Status: Chronic Plan: Will continue with her thyroid medication. Qualifiers: (8) Nicotine dependence Onset Date: 03/20/17 Current Visit: No Status: Chronic Plan: Will provide nicotine patch. Cessation addressed. Qualifiers: (9) Obesity Onset Date: 03/05/17 Current Visit: No Status: Chronic Plan: Will address lifestyle modification education. Qualifiers: Obesity type: due to excess calories Obesity classification: adult class 3 (BMI >= 40) Serious obesity comorbidity presence: with serious comorbidity Body mass index: BMI 40.0-44.9 Qualified Code(s): E66.01 - Morbid (severe) obesity due to excess calories; Z68.41 - Body mass index (BMI) 40.0-44.9, adult ; Z68.41 - Body mass index (BMI) 40.0-44.9, adult; Z68.41 - Body mass index (BMI ) 40.0-44.9, adult; Z68.41 - Body mass index (BMI) 40.0-44.9, adult (10) Obstructive sleep apnea Onset Date: 03/20/17 Current Visit: No Status: Chronic Plan: Will continue with CPAP at night. (11) Obesity hypoventilation syndrome Current Visit: Yes Status: Acute Plan: Will continue as above. Await further recommendations from pulmonology. Discharge Plan: Home Plan to discharge in: Greater than 2 days Time Spent Managing Pts Care (In Minutes): 55
[2018-01-19] MEDS ORDERED: FUROSEMIDE 40 MG/4 ML VIAL IV ONE (18:33)
[2018-01-19 18:39] LABS: Arterial Blood Carboxyhemoglob 1.4 % (0-1.5); Blood Gas Oxyhemoglobin 89.2 % (94-97); Blood O2 Saturation 92.2 % (92-98.5)
[2018-01-19] MEDS: CYCLOBENZAPRINE 10 MG TAB PO PRN (20:34)
[2018-01-19] MEDS: acetaZOLAMIDE 250 MG TAB PO SCH (20:35)
[2018-01-19] MEDS: CARVEDILOL 6.25 MG TAB PO SCH (20:35)
[2018-01-19] MEDS: ATORVASTATIN 20 MG TAB PO SCH (20:35)
[2018-01-19 22:45] LABS: Arterial Blood Carboxyhemoglob 1.4 % (0-1.5); Blood Gas Oxyhemoglobin 79.7 % (94-97); Blood O2 Saturation 82.4 % (92-98.5)
[2018-01-20 00:22] LABS: Arterial Blood Carboxyhemoglob 1.4 % (0-1.5); Blood Gas Oxyhemoglobin 86.7 % (94-97); Blood O2 Saturation 89.7 % (92-98.5)
[2018-01-20] MEDS: METHYLPREDNISOLONE 125 MG INJ IV SCH ×4 (00:34→17:40)
[2018-01-20] MEDS ORDERED: RSI MEDICATION KIT IV ONE (01:36)
[2018-01-20] MEDS ORDERED: PROPOFOL 1,000 MG/100 ML VIAL IV ONE (01:42)
[2018-01-20] MEDS ORDERED: ETOMIDATE 20 MG/10 ML VIAL IV ONE ×3 (01:48→10:44)
[2018-01-20] MEDS ORDERED: PROPOFOL 1,000 MG/100 ML VIAL IV PRN (02:00)
[2018-01-20] MEDS ORDERED: NA CHLORIDE 0.9% 250 ML ONE ×2 (02:21→02:34)
--- NOTE | 2018-01-20 02:28 | P.PN ---
Date of Service: 01/20/18 The patient gradually become more exauted, ABG shows CO2 escalating from 109 to 132, PH 7.11 on BiPAP. It was decided to intubate the patient. This was a difficult procedure and she was at risk for aspiration. Will change antibiotics for Zosyn. D/C Rocephin and Azithromycin.
[2018-01-20] MEDS ORDERED: NA CHLORIDE 0.9% 100 ML ONE (02:31)
[2018-01-20] MEDS ORDERED: NOREPINEPHRINE 4 MG/4 ML VIAL ONE (02:32)
[2018-01-20] MEDS ORDERED: NOREPINEPHRINE 4 MG in D5W 250 ML IV PRN (02:35)
[2018-01-20] MEDS ORDERED: FENTANYL CITR 100 MCG/2 ML ONE (02:36)
[2018-01-20] MEDS: IPRATROPIUM BROM 0.5MG/2.5ML NEB SCH ×4 (02:42→19:36)
[2018-01-20] MEDS: ALBUTEROL 2.5 MG/3 ML NEB SOL NEB SCH ×4 (02:42→19:36)
[2018-01-20] MEDS ORDERED: DOPAMINE/D5W 0 MG/0 ML BAG IV ONE (02:52)
[2018-01-20 03:06] LABS: Arterial Blood Carboxyhemoglob 1.6 % (0-1.5); Blood Gas Oxyhemoglobin 95.6 % (94-97); Blood O2 Saturation 98.8 % (92-98.5)
[2018-01-20 03:31] LABS: Potassium 4.9 mEq/L (3.6-5.0)
[2018-01-20 05:50] LABS: Arterial Blood Carboxyhemoglob 1.8 % (0-1.5); Blood Gas Oxyhemoglobin 82.5 % (94-97); Blood O2 Saturation 85.4 % (92-98.5)
[2018-01-20] MEDS ORDERED: PIPER/TAZO/NS 3.375gm 3.375 GM/100 ML BAG IVPB SCH (06:00)
[2018-01-20] MEDS: LEVOTHYROXINE SOD 0.112 MG TAB PO SCH (06:30)
--- NOTE | 2018-01-20 06:37 | RAD REPORT ---
EXAM DESCRIPTION: RAD - Chest Single View - 01/20/2018 4:15 am CLINICAL HISTORY: PICC line placement COMPARISON: January 20, 2018 FINDINGS: Two portable chest films were obtained following placement of a right upper extremity PICC line. The initial image shows the left subclavian PICC line extending across the midline tracking ou tward into the right subclavian vein. The second, final image shows the tip of the left subclavian PI CC line in the proximal SVC.
--- NOTE | 2018-01-20 06:43 | RAD REPORT ---
EXAM DESCRIPTION: RAD - Chest Single View - 01/20/2018 2:18 am CLINICAL HISTORY: Intubation, respiratory distress COMPARISON: January 19 TECHNIQUE: AP portable chest image was obtained 0206 hours supine position . FINDINGS: No new or enlarging lung parenchymal process. Trachea is midline. Heart and vasculature ar e normal. No measurable pleural effusion and no pneumothorax. ET tube tip is top of the aortic arch T 3 -T4 level. Gastric tube extends below the diaphragm, off the field of view. No acute aortic finding s suspected. IMPRESSION: Endotracheal tube tip is T3-4 level top of the aortic arch. Gastric tube extends below t he diaphragm. Heart, vasculature and lung markings are not outside of normal range.
[2018-01-20] MEDS ORDERED: NA CHLORIDE 0.9% 250 ML IV PRN (07:24)
--- NOTE | 2018-01-20 07:27 | P.CNS ---
Date of Consult: 01/20/18 Reason for Consult: Respiratory failure Primary Care Provider: Dr. Enriquez Chief Complaint: Acute COPD exacerbation History of Present Illness: Patient is 57 years of age recurrent hospital admissions terminal COPD admitted with worsening dyspnea hypoxemia intolerance to BiPAP and was subsequently intubated last night she is alert responsive cooperative right now wants to be extubated hemodynamically stable no evidence of sepsis Allergies codeine [Codeine] Adverse Reaction (Mild, Verified 02/07/16 19:04) itch Home Medications: Albuterol Sulfate [Proair Hfa] 8.5 gm IH DAILY 10/22/15 Atorvastatin Calcium [Atorvastatin Calcium] 20 mg PO BEDTIME 10/10/17 Carvedilol [Carvedilol] 6.25 mg PO BID 10/10/17 Fluticasone [Flonase 50MCG Nasal Bruno*] 1 spr IN DAILY 10/10/17 Furosemide [Furosemide] 20 mg PO DAILY 10/10/17 Latanoprost Ophth [Xalatan 0.005%*] 1 gtt EACH EYE BEDTIME 10/10/17 Nicotine [Nicoderm] 1 patch TD DAILY 10/10/17 Roflumilast [Daliresp*] 500 mcg PO DAILY 10/10/17 Umeclidinium Brm/Vilanterol Tr [Anoro Ellipta 62.5-25 Mcg INH] 1 puff IH DAILY 10/10/17 Acetazolamide [Diamox*] 250 mg PO BID #60 tab 10/20/17 Aspirin [Aspirin EC 81 MG] 81 mg PO DAILY 01/18/18 Clonazepam [Klonopin*] 0.5 mg PO DAILY 01/18/18 Cyclobenzaprine HCl [Flexeril] 5 mg PO BEDTIME 01/18/18 Levothyroxine [Synthroid*] 112 mcg PO DAILYAC 01/18/18 Prednisone [Deltasone*] 20 mg PO BID 01/18/18 - Past Medical/Surgical History Diabetic: No -: Severe COPD, oxygen/steroid dependent,Pulmonary-Dr. Do -: Mild pulmonary hypertension -: Hypothyroidism -: Bipolar disorder -: Hypertension -: Chronic low back pain -: Obstructive sleep apnea -: Tobacco abuse -: Appendectomy -: Psychosocial/ Personal History: She lives with a partner. She has 1 child. She is currently disabled. - Family History Father Medical History: Heart disease, Diabetes Notes: from CHF Mother Medical History: Heart disease, Diabetes Notes: from CHF Brother Medical History: Diabetes Sister Medical History: Heart disease, Diabetes Notes: from CHF - Social History Smoking Status: Current every day smoker Alcohol use: No CD- Drugs: No Caffeine use: Yes Place of Residence: Home Review of Systems is unable to be obtained Physical Examination Temp Pulse Resp BP Pulse Ox 98.7 F 74 14 91/60 96 01/20/18 04:00 01/20/18 07:00 01/20/18 07:00 01/20/18 07:00 01/20/18 07:00 General: Alert, Cooperative Neck: Supple Respiratory: Clear to auscultation bilaterally, Diminished Cardiovascular: No edema, Normal pulses Gastrointestinal: Normal bowel sounds, Soft and benign Musculoskeletal: No clubbing, No swelling, No contractures Integumentary: No rashes, No breakdown - Problems (1) Acute and chronic respiratory failure (wyqdq-nv-[id number]) Onset Date: 03/05/17 Current Visit: No Status: Acute Plan: Patient is 57 years of age admitted with acute on chronic respiratory failure recurrent hospital admissions frequent exacerbations intermittent smoker terminal COPD no evidence of sepsis chest x-rays clear white count is normal became worse overnight and had to be intubated start patient on bra 9 9 ipratropium cultures are pending wean off propofol rule out pulmonary embolism change to SIMV Qualifiers: Respiratory failure complication: hypoxia and hypercapnia Qualified Code(s) : J96.21 - Acute and chronic respiratory failure with hypoxia; J96.22 - Acute and chronic respiratory failure with hypercapnia; J96.22 - Acute and chronic respiratory failure with hypercapnia; J96.22 - Acute and chronic respiratory failure with hypercapnia
[2018-01-20] MEDS ORDERED: IPRATROPIUM BROM 0.5MG/2.5ML NEB SCH (08:00)
[2018-01-20] MEDS: ARFORMOTEROL TARTRATE 15 MCG/2 ML VIAL.NEB NEB SCH ×2 (08:04→19:34)
--- NOTE | 2018-01-20 08:13 | P.PN ---
Subjective Date of Service: 01/20/18 Primary Care Provider: Dr. Enriquze Chief Complaint: Acute COPD exacerbation Subjective: No new changes Review of Systems is unable to be obtained Physical Examination - Vital Signs Temperature: 98.7 F Blood Pressure: 91/60 Pulse: 74 Respirations: 14 Pulse Ox (%): 96 - Physical Exam General: Unresponsive (on propfol) HEENT: Atraumatic, PERRLA, EOMI Neck: Supple, JVD not distended Respiratory: Clear to auscultation bilaterally, Diminished Cardiovascular: Regular rate/rhythm, Normal S1 S2 Gastrointestinal: Normal bowel sounds, No tenderness Musculoskeletal: No tenderness Integumentary: No rashes Neurological: Normal speech, Normal tone, Normal affect Lymphatics: No axilla or inguinal lymphadenopathy - Studies Medications List Reviewed: Yes Assessment & Plan - Problems (Diagnosis) (1) Acute and chronic respiratory failure (zecms-vp-[id number]) Onset Date: 03/05/17 Current Visit: No Status: Acute Plan: Patient to have a ct today to rule out PE. If negative will most likely try stopping the propfol and weaning her off the vent. Qualifiers: Respiratory failure complication: hypoxia and hypercapnia Qualified Code(s) : J96.21 - Acute and chronic respiratory failure with hypoxia; J96.22 - Acute and chronic respiratory failure with hypercapnia; J96.22 - Acute and chronic respiratory failure with hypercapnia; J96.22 - Acute and chronic respiratory failure with hypercapnia (2) CHF (congestive heart failure) Onset Date: 05/09/15 Current Visit: No Status: Chronic Plan: She is not currently fluid overloaded Lungs are clear Qualifiers: Heart failure type: diastolic Heart failure chronicity: acute on chronic Qualified Code(s): I50.33 - Acute on chronic diastolic (congestive) heart failure (3) Tobacco abuse Onset Date: 03/05/17 Current Visit: No Status: Chronic Plan: Will need to [place] tobacco cessation again. She has had multiple intubations due to smoking. The patient is aware. however it is a bad addiction to treat. Discharge Plan: Home Plan to discharge in: Greater than 2 days - Code Status/Comfort Care Code Status Assessed: No Code Status: Full Code Physician Review: Patient Assessed, Agree with Above Assessment and Plan Critical Care: Yes Time Spent Managing Pts Care (In Minutes): 20
[2018-01-20] MEDS: FUROSEMIDE 40 MG/4 ML VIAL IV SCH (08:24)
[2018-01-20] MEDS: acetaZOLAMIDE 250 MG TAB PO SCH ×2 (08:25→21:25)
[2018-01-20] MEDS: NICOTINE 21 MG/PAT TD SCH (08:26)
[2018-01-20] MEDS: ENOXAPARIN 40 MG/0.4 ML SQ SCH (08:27)
[2018-01-20] MEDS: ROFLUMILAST 500 MCG TABLET PO SCH (08:27)
[2018-01-20] MEDS: ASPIRIN EC 81 MG TAB PO SCH (08:28)
[2018-01-20] MEDS: FAMOTIDINE 20 MG/2 ML VIAL IV SCH ×2 (08:51→21:24)
[2018-01-20] MEDS: PIPER/TAZO/NS 3.375gm 3.375 GM/100 ML BAG IVPB SCH ×2 (08:51→16:18)
[2018-01-20] MEDS: CARVEDILOL 6.25 MG TAB PO SCH ×2 (09:00→21:00)
[2018-01-20] MEDS ORDERED: FUROSEMIDE 40 MG/4 ML VIAL IV SCH (09:00)
[2018-01-20] MEDS ORDERED: FUROSEMIDE 20 MG TABLET PO SCH (09:00)
[2018-01-20] MEDS: FLUTICASONE 50MCG NASAL SPRAY NAS SCH (09:00)
[2018-01-20] MEDS ORDERED: SUCCINYLCHOLINE 20 MG/ML (10 ML) IV ONE (10:44)
[2018-01-20] MEDS: FENTANYL CITR 100 MCG/2 ML IV PRN ×3 (10:52→18:11)
--- NOTE | 2018-01-20 11:09 | RAD REPORT ---
EXAM DESCRIPTION: CT - Chest For Pe Angio - 01/20/2018 10:43 am CLINICAL HISTORY: Chest pain, shortness of breath, possible pulmonary embolism COMPARISON: Portable chest January 20, 2018 TECHNIQUE: Dynamically enhanced 3 mm thick images of the chest were obtained during administration o f approximately 150mL Isovue 370 IV contrast. Coronal and oblique reconstruction images were generate d and reviewed. Exam utilizes a protocol to evaluate the pulmonary arterial tree. All CT scans are performed using dose optimization technique as appropriate and may include automated exposure control or mA/KV adjustment according to patient size. FINDINGS: No pulmonary emboli are identified. No acute aortic abnormality. Patient has a normal variant aortic arch configuration with the right odom bclavian artery arising as the fourth vessel from the aortic arch. This courses between the esophagus and vertebral column. No pericardial thickening or effusion. No mass or infiltrate in the lung parenchyma. Interstitial markings are not outside of normal range. No pleural effusion or pleural thickening. Endotracheal tube is in place. Tip is mid aortic arch leve l. NG tube is in place well positioned in the antrum of the stomach. No mediastinal or hilar suspicious masses. No chest wall masses or abnormal axillary lymphadenopathy. IMPRESSION: No pulmonary emboli identified. ET tube and NG tube in good position. No other acute or significant CT chest or abdomen findings. 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
[2018-01-20] MEDS: LORazepam 2 MG/ML VIAL IV PRN ×2 (14:12→16:40)
[2018-01-20] MEDS: MIDAZOLAM HCL 2 MG/2 ML INJ IV PRN ×2 (15:49→20:25)
[2018-01-20] MEDS: HALOPERIDOL LACT 5 MG/ML INJ IV PRN (20:26)
[2018-01-20] MEDS: ATORVASTATIN 20 MG TAB PO SCH (21:25)
[2018-01-21] MEDS: HALOPERIDOL LACT 5 MG/ML INJ IV PRN (01:05)
[2018-01-21] MEDS: METHYLPREDNISOLONE 125 MG INJ IV SCH ×5 (01:06→23:48)
[2018-01-21] MEDS: MIDAZOLAM HCL 2 MG/2 ML INJ IV PRN (01:06)
[2018-01-21] MEDS: IPRATROPIUM BROM 0.5MG/2.5ML NEB SCH ×4 (01:24→20:28)
[2018-01-21] MEDS: ALBUTEROL 2.5 MG/3 ML NEB SOL NEB SCH ×4 (01:25→20:27)
[2018-01-21] MEDS: PIPER/TAZO/NS 3.375gm 3.375 GM/100 ML BAG IVPB SCH ×3 (01:46→17:10)
[2018-01-21] MEDS: FENTANYL CITR 100 MCG/2 ML IV PRN (02:57)
[2018-01-21 06:05] LABS: Arterial Blood Carboxyhemoglob 1.1 % (0-1.5); Blood Gas Oxyhemoglobin 84.3 % (94-97); Blood O2 Saturation 85.8 % (92-98.5)
[2018-01-21] MEDS: LEVOTHYROXINE SOD 0.112 MG TAB PO SCH (06:46)
[2018-01-21 07:35] LABS: Absolute Lymphocytes (CBC) 0.7 K/uL (0.7-4.9); Absolute Monocytes 0.4 K/uL (0.1-1.3); Absolute Neutrophil 6.3 K/uL (1.8-8.0); Hematocrit 34.9 % (36.0-45.0); Lymphocytes % 9.2 % (15.3-44.8); MCH 27.9 pg (27.0-35.0); MCV 83.7 fL (80-100); MPV 7.7 fL (7.6-11.3); Monocytes % 5.9 % (3.3-12.3); RBC Red Blood Cell Count 4.17 M/uL (3.86-4.86)
[2018-01-21] MEDS: ARFORMOTEROL TARTRATE 15 MCG/2 ML VIAL.NEB NEB SCH ×2 (07:38→20:28)
[2018-01-21 08:02] LABS: Magnesium 2.4 mg/dL (1.8-2.5); Potassium 3.3 mEq/L (3.6-5.0)
[2018-01-21] MEDS: FAMOTIDINE 20 MG/2 ML VIAL IV SCH ×2 (08:34→23:11)
[2018-01-21] MEDS: NICOTINE 21 MG/PAT TD SCH (08:35)
[2018-01-21] MEDS: ENOXAPARIN 40 MG/0.4 ML SQ SCH (08:46)
[2018-01-21] MEDS: FUROSEMIDE 40 MG/4 ML VIAL IV SCH (08:47)
[2018-01-21] MEDS: FLUTICASONE 50MCG NASAL SPRAY NAS SCH (09:00)
[2018-01-21] MEDS: KCL 20 MEQ/100 mL IVPB 20 MEQ/100 ML BAG IV SCH ×2 (10:03→13:09)
[2018-01-21] MEDS: acetaZOLAMIDE 250 MG TAB PO SCH ×2 (11:27→21:53)
[2018-01-21] MEDS: CARVEDILOL 6.25 MG TAB PO SCH ×3 (11:27→21:53)
[2018-01-21] MEDS: HYDROCODONE/APAP 10/325 TAB PO PRN (13:06)
[2018-01-21] MEDS: ASPIRIN EC 81 MG TAB PO SCH (13:23)
[2018-01-21] MEDS: ROFLUMILAST 500 MCG TABLET PO SCH (13:24)
--- NOTE | 2018-01-21 17:11 | P.PN ---
Subjective Date of Service: 01/21/18 Primary Care Provider: Dr. Enriquez Chief Complaint: Acute COPD exacerbation Subjective: Improving (patient extubated to a bipap) Review of Systems is unable to be obtained Physical Examination - Vital Signs Temperature: 97.6 F Blood Pressure: 112/82 Pulse: 65 Respirations: 20 Pulse Ox (%): 92 - Physical Exam General: Alert, In no apparent distress HEENT: Atraumatic, PERRLA, EOMI Neck: Supple, JVD not distended Respiratory: Clear to auscultation bilaterally, Normal air movement, Expiratory wheezes (Mild) Cardiovascular: Regular rate/rhythm, Normal S1 S2 Gastrointestinal: Normal bowel sounds, No tenderness Musculoskeletal: No tenderness Integumentary: No rashes Neurological: Normal speech, Normal tone, Normal affect Lymphatics: No axilla or inguinal lymphadenopathy - Studies Medications List Reviewed: Yes Assessment & Plan - Problems (Diagnosis) (1) Acute and chronic respiratory failure ([id number]-[id number]) Onset Date: 03/05/17 Current Visit: No Status: Acute Plan: Negative CT. She is extubated to the bipap. Qualifiers: Respiratory failure complication: hypoxia and hypercapnia Qualified Code(s) : J96.21 - Acute and chronic respiratory failure with hypoxia; J96.22 - Acute and chronic respiratory failure with hypercapnia; J96.22 - Acute and chronic respiratory failure with hypercapnia; J96.22 - Acute and chronic respiratory failure with hypercapnia (2) CHF (congestive heart failure) Onset Date: 05/09/15 Current Visit: No Status: Chronic Plan: She is not currently fluid overloaded Lungs are clear Qualifiers: Heart failure type: diastolic Heart failure chronicity: acute on chronic Qualified Code(s): I50.33 - Acute on chronic diastolic (congestive) heart failure (3) Tobacco abuse Onset Date: 03/05/17 Current Visit: No Status: Chronic Plan: Will need to [place] tobacco cessation again. She has had multiple intubations due to smoking. The patient is aware. however it is a bad addiction to treat. Discharge Plan: Home Plan to discharge in: Greater than 2 days - Code Status/Comfort Care Code Status Assessed: No Code Status: Full Code Physician Review: Patient Assessed, Agree with Above Assessment and Plan Critical Care: Yes Time Spent Managing Pts Care (In Minutes): 25
[2018-01-21] MEDS: ATORVASTATIN 20 MG TAB PO SCH (21:53)
[2018-01-21] MEDS ORDERED: FAMOTIDINE 20 MG/2 ML VIAL IV ONE ×2 (22:34)
[2018-01-21] MEDS: ALPRAZOLAM 0.25 MG TABLET PO PRN (23:48)
[2018-01-22] MEDS: PIPER/TAZO/NS 3.375gm 3.375 GM/100 ML BAG IVPB SCH (00:02)
[2018-01-22] MEDS: IPRATROPIUM BROM 0.5MG/2.5ML NEB SCH ×4 (02:49→20:00)
[2018-01-22] MEDS: ALBUTEROL 2.5 MG/3 ML NEB SOL NEB SCH ×4 (02:49→20:00)
[2018-01-22] MEDS: METHYLPREDNISOLONE 125 MG INJ IV SCH (05:54)
[2018-01-22] MEDS: LEVOTHYROXINE SOD 0.112 MG TAB PO SCH (05:55)
[2018-01-22 06:21] LABS: Magnesium 2.3 mg/dL (1.8-2.5); Potassium 3.5 mEq/L (3.6-5.0)
[2018-01-22] MEDS: ARFORMOTEROL TARTRATE 15 MCG/2 ML VIAL.NEB NEB SCH ×2 (07:26→20:00)
--- NOTE | 2018-01-22 07:39 | P.PN ---
Subjective Date of Service: 01/21/18 Primary Care Provider: Dr. Enriquez Chief Complaint: Acute COPD exacerbation Subjective: Improving (Patient was agitated cooperative and was extubated paced on BiPAP) Review of Systems is unable to be obtained Physical Examination - Vital Signs Temperature: 97.4 F Blood Pressure: 131/75 Pulse: 54 Respirations: 17 Pulse Ox (%): 98 - Physical Exam General: Alert, Mild distress Respiratory: Expiratory wheezes Cardiovascular: No edema, Normal S1 S2 Gastrointestinal: Normal bowel sounds, Soft and benign - Studies Medications List Reviewed: Yes Assessment & Plan - Problems (Diagnosis) (1) Acute and chronic respiratory failure ([id number]-ko-fhisnsk) Onset Date: 03/05/17 Current Visit: No Status: Acute Plan: Patient admitted with COPD exacerbation she was extubated placed on BiPAP hemodynamically stable no evidence of sepsis labs all reviewed continue with bronchodilator monitor in ICU for another they transferred to the floor Qualifiers: Respiratory failure complication: hypoxia and hypercapnia Qualified Code(s) : J96.21 - Acute and chronic respiratory failure with hypoxia; J96.22 - Acute and chronic respiratory failure with hypercapnia; J96.22 - Acute and chronic respiratory failure with hypercapnia; J96.22 - Acute and chronic respiratory failure with hypercapnia Physician Review: Patient Assessed, Agree with Above Assessment and Plan
--- NOTE | 2018-01-22 07:42 | P.PN ---
Subjective Date of Service: 01/22/18 Primary Care Provider: Dr. Enriquez Chief Complaint: Acute COPD exacerbation Subjective: Improving (Patient is doing well alert responsive cooperative tolerating BiPAP) Review of Systems Unremarkable Physical Examination - Vital Signs Temperature: 97.4 F Blood Pressure: 131/75 Pulse: 54 Respirations: 17 Pulse Ox (%): 98 - Physical Exam General: Alert, Oriented x3 HEENT: Atraumatic Neck: Supple Respiratory: Diminished Cardiovascular: No edema, Regular rate/rhythm, Normal S1 S2 Gastrointestinal: Normal bowel sounds - Studies Medications List Reviewed: Yes Assessment & Plan - Problems (Diagnosis) (1) Acute and chronic respiratory failure ([id number]-hu-[id number]) Onset Date: 03/05/17 Current Visit: No Status: Acute Plan: Patient admitted with acute on chronic respiratory failure currently hemodynamically stable transfer to the floor titrate sat to 88-90% medications reviewed doses adjusted possible discharge tomorrow Qualifiers: Respiratory failure complication: hypoxia and hypercapnia Qualified Code(s) : J96.21 - Acute and chronic respiratory failure with hypoxia; J96.22 - Acute and chronic respiratory failure with hypercapnia; J96.22 - Acute and chronic respiratory failure with hypercapnia; J96.22 - Acute and chronic respiratory failure with hypercapnia Physician Review: Patient Assessed, Agree with Above Assessment and Plan
[2018-01-22] MEDS ORDERED: POTASSIUM CL SA 10 MEQ TAB PO ONE (07:52)
--- NOTE | 2018-01-22 08:36 | P.PN ---
Subjective Date of Service: 01/22/18 Primary Care Provider: Dr. Enriquez Chief Complaint: Acute COPD exacerbation Subjective: Improving Review of Systems 10-point ROS is otherwise unremarkable Physical Examination - Vital Signs Temperature: 97.4 F Blood Pressure: 131/75 Pulse: 54 Respirations: 17 Pulse Ox (%): 98 - Physical Exam General: Alert, In no apparent distress HEENT: Atraumatic, PERRLA, EOMI Neck: Supple, JVD not distended Respiratory: Clear to auscultation bilaterally, Normal air movement Cardiovascular: Regular rate/rhythm, Normal S1 S2 Gastrointestinal: Normal bowel sounds, No tenderness Musculoskeletal: No tenderness Integumentary: No rashes Neurological: Normal speech, Normal tone, Normal affect Lymphatics: No axilla or inguinal lymphadenopathy - Studies Medications List Reviewed: Yes Assessment & Plan - Problems (Diagnosis) (1) Acute and chronic respiratory failure ([id number]-[id number]) Onset Date: 03/05/17 Current Visit: No Status: Acute Plan: Negative CT. She is extubated to the bipap. No complaints possible discharge tomorrow or Friday. Qualifiers: Respiratory failure complication: hypoxia and hypercapnia Qualified Code(s) : J96.21 - Acute and chronic respiratory failure with hypoxia; J96.22 - Acute and chronic respiratory failure with hypercapnia; J96.22 - Acute and chronic respiratory failure with hypercapnia; J96.22 - Acute and chronic respiratory failure with hypercapnia (2) CHF (congestive heart failure) Onset Date: 05/09/15 Current Visit: No Status: Chronic Plan: She is not currently fluid overloaded Lungs are clear Qualifiers: Heart failure type: diastolic Heart failure chronicity: acute on chronic Qualified Code(s): I50.33 - Acute on chronic diastolic (congestive) heart failure (3) Tobacco abuse Onset Date: 03/05/17 Current Visit: No Status: Chronic Plan: Will need to [place] tobacco cessation again. She has had multiple intubations due to smoking. The patient is aware. however it is a bad addiction to treat. Discharge Plan: Home Plan to discharge in: 48 Hours - Code Status/Comfort Care Code Status Assessed: No Code Status: Full Code Physician Review: Patient Assessed, Agree with Above Assessment and Plan Critical Care: Yes Time Spent Managing Pts Care (In Minutes): 20
[2018-01-22] MEDS: ENOXAPARIN 40 MG/0.4 ML SQ SCH (08:49)
[2018-01-22] MEDS: acetaZOLAMIDE 250 MG TAB PO SCH ×2 (08:50→20:37)
[2018-01-22] MEDS: predniSONE 20 MG TAB PO SCH ×2 (08:50→20:37)
[2018-01-22] MEDS: ROFLUMILAST 500 MCG TABLET PO SCH (08:51)
[2018-01-22] MEDS: ASPIRIN EC 81 MG TAB PO SCH (08:51)
[2018-01-22] MEDS: FLUTICASONE 50MCG NASAL SPRAY NAS SCH (09:00)
[2018-01-22] MEDS: NICOTINE 21 MG/PAT TD SCH (09:00)
[2018-01-22] MEDS: CARVEDILOL 6.25 MG TAB PO SCH ×2 (09:00→20:37)
[2018-01-22] MEDS: BENZONATATE 100 MG CAP PO PRN (20:36)
[2018-01-22] MEDS: ALPRAZOLAM 0.25 MG TABLET PO PRN (20:37)
[2018-01-22] MEDS: ATORVASTATIN 20 MG TAB PO SCH (20:37)
[2018-01-22] MEDS: XALATAN OPTH SCH (20:37)
[2018-01-22] MEDS: HYDROCODONE/APAP 10/325 TAB PO PRN (20:38)
[2018-01-23] MEDS: IPRATROPIUM BROM 0.5MG/2.5ML NEB SCH ×4 (01:13→19:29)
[2018-01-23] MEDS: ARFORMOTEROL TARTRATE 15 MCG/2 ML VIAL.NEB NEB SCH ×3 (01:13→19:29)
[2018-01-23] MEDS: ALBUTEROL 2.5 MG/3 ML NEB SOL NEB SCH ×4 (01:13→19:29)
[2018-01-23] MEDS: HYDROCODONE/APAP 10/325 TAB PO PRN (02:11)
[2018-01-23] MEDS: LEVOTHYROXINE SOD 0.112 MG TAB PO SCH (05:46)
[2018-01-23 08:05] LABS: Potassium 4.1 mEq/L (3.6-5.0)
[2018-01-23] MEDS: NICOTINE 21 MG/PAT TD SCH (09:00)
[2018-01-23] MEDS: ASPIRIN EC 81 MG TAB PO SCH (09:43)
[2018-01-23] MEDS: ROFLUMILAST 500 MCG TABLET PO SCH (09:43)
[2018-01-23] MEDS: acetaZOLAMIDE 250 MG TAB PO SCH ×2 (09:43→22:49)
[2018-01-23] MEDS: ENOXAPARIN 40 MG/0.4 ML SQ SCH (09:43)
[2018-01-23] MEDS: FLONASE NAS SCH (09:44)
[2018-01-23] MEDS: CARVEDILOL 6.25 MG TAB PO SCH ×2 (09:44→22:45)
[2018-01-23] MEDS: predniSONE 20 MG TAB PO SCH ×2 (09:44→22:46)
--- NOTE | 2018-01-23 12:15 | RAD REPORT ---
EXAM DESCRIPTION: RAD - Chest Single View - 01/23/2018 12:07 pm CLINICAL HISTORY: Shortness of breath COMPARISON: 01/20/2018 FINDINGS: The lungs are mildly emphysematous with mild linear atelectasis is suspected in the left l rosalino base. A left-sided PICC line has tip in the SVC. The heart is normal in size.
[2018-01-23 16:20] LABS: Arterial Blood Carboxyhemoglob 1.3 % (0-1.5); Blood Gas Oxyhemoglobin 93.4 % (94-97); Blood O2 Saturation 95.4 % (92-98.5)
--- NOTE | 2018-01-23 19:19 | PN ---
Date of Progress Note: 01/23/2018 Subjective: The patient seen and examined, chart reviewed, and case discussed with RN and Dr. Clarisa herbert. The patient of Dr. Enriquez's. Hospitalist Service is covering while he is out of town. Review of Systems: Respiratory: The patient complains some shortness of breath, however, states improved. Otherwise negative except as per HPI. Medications: Reviewed. Objective: Vital Signs: Temperature 97.1, heart rate 52, blood pressure 113/68, respirations 21, an d O2 99% on 4 L via nasal cannula. General: Awake, alert, oriented x3, in some mild distress, appears older than stated age. Obese, BM I 39. CV: S1 and S2. Regular rate and rhythm. Peripheral pulses present bilaterally. Respiratory: Moving air well bilaterally. No wheezing. Gastrointestinal: Abdomen is soft, nontender, nondistended. Positive bowel sounds. Extremities: No clubbing, cyanosis, edema. Neurologic: Nonfocal. Laboratory Data: Sodium 137, potassium 4.1, chloride 96, CO2 39, BUN 33, creatinine 0.84, glucose 10 3, and calcium 8.5. WBC 7.4, H and H 11.6, 34.9, and platelets 163. Blood cultures negative. Final sputum culture shows normal quantity of respiratory sheila. Chest x-ray, lungs are mildly emphysemat ous with mild linear atelectasis suspected in the left lung base. PICC line in place. Assessment And Plan: 1.Acute on chronic respiratory failure. The patient now extubated, on BiPAP, currently on nasal can nula. We will attempt to wean off. 2.Congestive heart failure, chronic diastolic. 3.Nicotine dependence with cigarette smoking. 4.Obesity, body mass index 39. 5.Mild pulmonary hypertension. 6.Hypothyroidism. Continue replacement. 7.Bipolar disorder. 8.Chronic low back pain, midline, without sciatica. 9.Obstructive sleep apnea. Continue BiPAP at night. 10.Essential hypertension. SA/MODL Voice ID: [id number] Report ID: [id number]
[2018-01-23] MEDS: ATORVASTATIN 20 MG TAB PO SCH (22:44)
[2018-01-23] MEDS: XALATAN OPTH SCH (22:47)
[2018-01-24] MEDS: IPRATROPIUM BROM 0.5MG/2.5ML NEB SCH ×4 (01:08→19:58)
[2018-01-24] MEDS: ALBUTEROL 2.5 MG/3 ML NEB SOL NEB SCH ×4 (01:08→19:58)
[2018-01-24 05:42] LABS: Absolute Lymphocytes (CBC) 1.1 K/uL (0.7-4.9); Absolute Monocytes 0.5 K/uL (0.1-1.3); Absolute Neutrophil 5.1 K/uL (1.8-8.0); Basophils % 0.2 % (0-1.3); Eosinophils % 0.5 % (0-4.4); Hematocrit 36.9 % (36.0-45.0); Lymphocytes % 16.5 % (15.3-44.8); MPV 7.5 fL (7.6-11.3); Monocytes % 6.9 % (3.3-12.3); RBC Red Blood Cell Count 4.29 M/uL (3.86-4.86)
[2018-01-24] MEDS: LEVOTHYROXINE SOD 0.112 MG TAB PO SCH (06:12)
[2018-01-24 06:20] LABS: Bilirubin Total 0.6 mg/dL (0.3-1.2); Potassium 4.4 mEq/L (3.6-5.0); Protein, Total 5.1 g/dL (6.0-8.3)
[2018-01-24 07:07] LABS: Blood Morphology Comment NOT SEEN (NOT SEEN); Platelet Estimate DECR; Urine White Blood Cell Casts OK
[2018-01-24] MEDS: ARFORMOTEROL TARTRATE 15 MCG/2 ML VIAL.NEB NEB SCH ×2 (07:53→19:58)
[2018-01-24] MEDS: NICOTINE 21 MG/PAT TD SCH (09:00)
[2018-01-24] MEDS: acetaZOLAMIDE 250 MG TAB PO SCH ×2 (09:43→21:33)
[2018-01-24] MEDS: ASPIRIN EC 81 MG TAB PO SCH (09:43)
[2018-01-24] MEDS: CARVEDILOL 6.25 MG TAB PO SCH ×2 (09:43→21:33)
[2018-01-24] MEDS: predniSONE 20 MG TAB PO SCH ×2 (09:43→21:33)
[2018-01-24] MEDS: ENOXAPARIN 40 MG/0.4 ML SQ SCH (09:43)
[2018-01-24] MEDS: ROFLUMILAST 500 MCG TABLET PO SCH (09:43)
[2018-01-24] MEDS: FLONASE NAS SCH (09:44)
--- NOTE | 2018-01-24 10:17 | P.PN ---
Subjective Date of Service: 01/24/18 Primary Care Provider: Dr. Enriquez Chief Complaint: Acute COPD exacerbation Patient's condition is stable although she does experience significant desats with minimal exertion still has some chest congestion otherwise no change alert responsive cooperative his hypoxemia with hypercapnia Review of Systems General: Weakness Respiratory: Cough, Shortness of Breath Physical Examination - Vital Signs Temperature: 97.8 F Blood Pressure: 132/79 Pulse: 63 Respirations: 16 Pulse Ox (%): 94 - Physical Exam General: Alert, Oriented x2, Mild distress Respiratory: Expiratory wheezes Cardiovascular: No edema, Regular rate/rhythm - Studies Medications List Reviewed: Yes Assessment & Plan - Problems (Diagnosis) (1) Acute and chronic respiratory failure ([id number]) Onset Date: 03/05/17 Current Visit: No Status: Acute Plan: Patient's condition is stable she is experiencing significant desat on minimal exertion I have added a low-dose of spironolactone patient is on maximum bronchodilator therapy trial of low-dose the ophthaine Dc dial arrest cultures negative no evidence of thromboembolism vital signs are satisfactory trial of levofloxacin Qualifiers: Respiratory failure complication: hypoxia and hypercapnia Qualified Code(s) : J96.21 - Acute and chronic respiratory failure with hypoxia; J96.22 - Acute and chronic respiratory failure with hypercapnia; J96.22 - Acute and chronic respiratory failure with hypercapnia; J96.22 - Acute and chronic respiratory failure with hypercapnia Physician Review: Patient Assessed, Agree with Above Assessment and Plan
[2018-01-24] MEDS: levoFLOXacin 500 MG TAB PO SCH (10:37)
[2018-01-24] MEDS: SPIRONOLACTONE 25 MG TABLET PO SCH (10:37)
[2018-01-24] MEDS: BENZONATATE 100 MG CAP PO PRN (10:38)
--- NOTE | 2018-01-24 14:26 | PN ---
Date of Progress Note: 01/24/2018 Subjective: The patient seen and examined, chart reviewed, and case discussed with RN and Dr. Clarisa herbert. The patient is getting very winded with minimal exertion. Not able to ambulate too far. Review of Systems: Negative except as per HPI. Medications: Reviewed. Physical Examination: Vital Signs: Temperature 97.8, heart rate 62, blood pressure is 132/79, respirations 16, O2 of 94% o n 3.5 L via nasal cannula. General: Awake, alert, oriented x3. Appears older than stated age. Slight respiratory distress. O bese, BMI 39. CV: S1, S2. No murmurs. Peripheral pulses present. Respiratory: Diminished breath. No rhonchi. No wheezing. Gastrointestinal: Abdomen is soft, nontender, nondistended. Positive bowel sounds. Extremities: No clubbing, cyanosis, edema. Neurologic: Nonfocal. Laboratory Data: Sodium 140, potassium 4.4, chloride 99, CO2 of 38, BUN 23, creatinine 0.77, glucose 107, calcium 8.4. WBC 6.7, H and H 11.6 and 36.9, platelets 137, neutrophils 75%. Blood cultures, no growth. Final sputum cultures showing normal respiratory sheila. Assessment: A 57-year-old female with: 1.Bxlsh-jk-lgzvzne respiratory failure, on BiPAP at night. Currently on 3.5 L via nasal cannula. W e will continue to be weaned off. The patient continues to have dyspnea upon exertion. 2.Chronic diastolic heart failure. Continue with treatment. Compensated. We will monitor I's and O's. Fluid restriction. 3.Nicotine dependence with cigarette smoking. Counseled. 4.Obesity, BMI 39. 5.Mild primary hypertension. 6.Hypothyroidism, stable. 7.Bipolar disorder. 8.Chronic low back pain, midline, without sciatica. Continue pain medication. 9.Obstructive sleep apnea, on BiPAP at night. 10.Essential hypertension, stable. 11.Gastrointestinal and deep venous thrombosis prophylaxis addressed. Plan: Continue to wean off as tolerated. Spironolactone has been added. We will continue to monito r closely and continuous pulse ox. SA/MODL Voice ID: [id number] Report ID: [id number]
[2018-01-24] MEDS: XALATAN OPTH SCH (21:32)
[2018-01-24] MEDS: ATORVASTATIN 20 MG TAB PO SCH (21:33)
[2018-01-24] MEDS: THEOPHYLLINE SR 100 MG TAB PO SCH (21:33)
[2018-01-25] MEDS: ALBUTEROL 2.5 MG/3 ML NEB SOL NEB SCH ×4 (01:41→19:25)
[2018-01-25] MEDS: IPRATROPIUM BROM 0.5MG/2.5ML NEB SCH ×4 (01:42→19:25)
[2018-01-25 05:26] LABS: Absolute Lymphocytes (CBC) 1.1 K/uL (0.7-4.9); Absolute Monocytes 0.4 K/uL (0.1-1.3); Basophils % 0.1 % (0-1.3); Eosinophils % 0.3 % (0-4.4); Hematocrit 36.5 % (36.0-45.0); Lymphocytes % 14.8 % (15.3-44.8); MCH 27.3 pg (27.0-35.0); MPV 7.9 fL (7.6-11.3); Monocytes % 5.7 % (3.3-12.3); RBC Red Blood Cell Count 4.24 M/uL (3.86-4.86)
[2018-01-25] MEDS: LEVOTHYROXINE SOD 0.112 MG TAB PO SCH (05:44)
[2018-01-25 05:51] LABS: Albumin 3.1 g/dL (3.2-5.5); Bilirubin Total 0.7 mg/dL (0.3-1.2); Protein, Total 5.5 g/dL (6.0-8.3)
[2018-01-25 05:56] LABS: Potassium 4.5 mEq/L (3.6-5.0)
[2018-01-25 06:27] LABS: Platelet Estimate DECR; Urine White Blood Cell Casts OK
[2018-01-25 06:28] LABS: Anisocytosis SLIGHT; Blood Morphology Comment NOTED (NOT SEEN); Ovalocytes SLIGHT; Platelets, Giant FEW
[2018-01-25] MEDS: LORazepam 2 MG/ML VIAL IV PRN ×2 (06:59→07:02)
[2018-01-25] MEDS: FLONASE NAS SCH (08:28)
[2018-01-25] MEDS: ENOXAPARIN 40 MG/0.4 ML SQ SCH (08:29)
[2018-01-25] MEDS: acetaZOLAMIDE 250 MG TAB PO SCH ×2 (08:29→22:30)
[2018-01-25] MEDS: THEOPHYLLINE SR 100 MG TAB PO SCH ×2 (08:29→21:38)
[2018-01-25] MEDS: levoFLOXacin 500 MG TAB PO SCH (08:29)
[2018-01-25] MEDS: predniSONE 20 MG TAB PO SCH ×2 (08:30→21:38)
[2018-01-25] MEDS: ASPIRIN EC 81 MG TAB PO SCH (08:30)
[2018-01-25] MEDS: ARFORMOTEROL TARTRATE 15 MCG/2 ML VIAL.NEB NEB SCH ×2 (08:35→19:25)
[2018-01-25] MEDS: NICOTINE 21 MG/PAT TD SCH (09:00)
[2018-01-25] MEDS: CARVEDILOL 6.25 MG TAB PO SCH ×2 (09:39→21:38)
[2018-01-25] MEDS: SPIRONOLACTONE 25 MG TABLET PO SCH (09:39)
--- NOTE | 2018-01-25 14:37 | PN ---
Date of Progress Note: 01/25/2018 Subjective: The patient seen and examined, chart reviewed, and case discussed with RN. Dr. Enriquez's patient, who is being covered by the Hospitalist Service over the weekend. The patient is still having dyspnea with exertion. Review of Systems: Negative except as above. Medications: Reviewed. Physical Examination: Vital Signs: Temperature 97.9, heart rate 60, blood pressure 104/68, respirations 18, O2 of 96% on 3.5 L. General: Awake, alert, oriented, in some mild respiratory distress. Morbidly obese with BMI 40.6. Appears older than stated age, ill-appearing female. CV: S1, S2. No murmurs. Regular rate and rhythm. Peripheral pulses present. Respiratory: Diminished breath sounds. Gastrointestinal: Abdomen is soft, nontender, nondistended. Positive bowel sounds. No guarding or rigidity. Extremities: No clubbing, cyanosis, edema. Neurologic: Nonfocal. Laboratory Data: Sodium 140, potassium 4.5, chloride 98, CO2 of 40, BUN 20, creatinine 0.75, glucose 130, calcium 8.7. WBC 7.6, H and H are 11.6 and 36.5, platelets 141. Assessment And Plan: A 57-year-old female with: 1. Guwyi-io-hxnhzek respiratory failure: We will continue BiPAP as needed. Currently on 3.5 L of oxygen. Continues to have significant dyspnea on exertion. 2. Chronic diastolic heart failure: Continue medications. Monitor I's and O' s. Fluid restriction. 3. Nicotine dependence: Cigarette smoking, counseled. 4. Obesity, BMI 39. 5. Mild pulmonary hypertension. 6. Hypothyroidism. 7. Bipolar disorder. 8. Chronic low back pain, midline, without sciatica. Continue pain medications. 9. Obstructive sleep apnea: Continue BiPAP at night. 10. Essential hypertension, stable. 11. Gastrointestinal and deep venous thrombosis prophylaxis addressed. Transfer service back to Dr. Enriquez in am. /JENI Voice ID: [id number] Report ID: [id number] MTDD
[2018-01-25] MEDS: XALATAN OPTH SCH (21:38)
[2018-01-25] MEDS: ATORVASTATIN 20 MG TAB PO SCH (21:38)
[2018-01-25] MEDS ORDERED: clonazePAM 0.5 MG TAB PO ONE (23:45)
[2018-01-26] MEDS: IPRATROPIUM BROM 0.5MG/2.5ML NEB SCH ×4 (01:19→19:59)
[2018-01-26] MEDS: ALBUTEROL 2.5 MG/3 ML NEB SOL NEB SCH ×4 (01:19→19:59)
[2018-01-26 05:45] LABS: Absolute Lymphocytes (CBC) 1.4 K/uL (0.7-4.9); Absolute Monocytes 0.5 K/uL (0.1-1.3); Absolute Neutrophil 8.5 K/uL (1.8-8.0); Basophils % 0.4 % (0-1.3); Eosinophils % 0.5 % (0-4.4); Hematocrit 39.9 % (36.0-45.0); Lymphocytes % 13.8 % (15.3-44.8); MCH 27.4 pg (27.0-35.0); MCV 85.3 fL (80-100); MPV 8.1 fL (7.6-11.3); Monocytes % 4.3 % (3.3-12.3); RBC Red Blood Cell Count 4.67 M/uL (3.86-4.86)
[2018-01-26 05:57] LABS: Albumin 3.7 g/dL (3.2-5.5); Bilirubin Total 0.6 mg/dL (0.3-1.2); Potassium 4.5 mEq/L (3.6-5.0); Protein, Total 6.3 g/dL (6.0-8.3)
[2018-01-26] MEDS: LEVOTHYROXINE SOD 0.112 MG TAB PO SCH (06:34)
[2018-01-26] MEDS: ARFORMOTEROL TARTRATE 15 MCG/2 ML VIAL.NEB NEB SCH ×2 (08:22→19:59)
[2018-01-26] MEDS: NICOTINE 21 MG/PAT TD SCH (09:00)
[2018-01-26] MEDS: THEOPHYLLINE SR 100 MG TAB PO SCH ×2 (09:04→21:12)
[2018-01-26] MEDS: FLONASE NAS SCH (09:04)
[2018-01-26] MEDS: ASPIRIN EC 81 MG TAB PO SCH (09:05)
[2018-01-26] MEDS: acetaZOLAMIDE 250 MG TAB PO SCH ×2 (09:05→21:11)
[2018-01-26] MEDS: predniSONE 20 MG TAB PO SCH ×2 (09:05→21:11)
[2018-01-26] MEDS: ENOXAPARIN 40 MG/0.4 ML SQ SCH (09:05)
[2018-01-26] MEDS: SPIRONOLACTONE 25 MG TABLET PO SCH (09:05)
[2018-01-26] MEDS: levoFLOXacin 500 MG TAB PO SCH (09:06)
[2018-01-26] MEDS: CARVEDILOL 6.25 MG TAB PO SCH ×2 (09:06→21:11)
[2018-01-26] MEDS ORDERED: NA CHLORIDE 0.9% 250 ML IV ONE (11:23)
[2018-01-26] MEDS: ACETAMINOPHEN 500 MG TAB PO PRN (13:32)
--- NOTE | 2018-01-26 19:11 | P.PN ---
Subjective Date of Service: 01/26/18 Primary Care Provider: Dr. Enriquez Chief Complaint: Acute COPD exacerbation Subjective: No new changes Review of Systems 10-point ROS is otherwise unremarkable Respiratory: Shortness of Breath Musculoskeletal: Neck Pain Physical Examination - Vital Signs Temperature: 97.1 F Blood Pressure: 101/71 Pulse: 74 Respirations: 18 Pulse Ox (%): 90 - Physical Exam General: Alert, In no apparent distress HEENT: Atraumatic, PERRLA, EOMI Neck: Supple, JVD not distended Respiratory: Diminished, Stridor Cardiovascular: Regular rate/rhythm, Normal S1 S2 Gastrointestinal: Normal bowel sounds, No tenderness Musculoskeletal: No tenderness Integumentary: No rashes Neurological: Normal speech, Normal tone, Normal affect Lymphatics: No axilla or inguinal lymphadenopathy - Studies Medications List Reviewed: Yes Assessment & Plan - Problems (Diagnosis) (1) Acute and chronic respiratory failure (eqtzp-[id number]) Onset Date: 03/05/17 Current Visit: No Status: Acute Plan: She desaturates on exertion. Is improving. Possible discharge in the morning Qualifiers: Respiratory failure complication: hypoxia and hypercapnia Qualified Code(s) : J96.21 - Acute and chronic respiratory failure with hypoxia; J96.22 - Acute and chronic respiratory failure with hypercapnia; J96.22 - Acute and chronic respiratory failure with hypercapnia; J96.22 - Acute and chronic respiratory failure with hypercapnia (2) CHF (congestive heart failure) Onset Date: 05/09/15 Current Visit: No Status: Chronic Plan: She is not currently fluid overloaded Lungs are clear Qualifiers: Heart failure type: diastolic Heart failure chronicity: acute on chronic Qualified Code(s): I50.33 - Acute on chronic diastolic (congestive) heart failure (3) Tobacco abuse Onset Date: 03/05/17 Current Visit: No Status: Chronic Plan: Will need to af[place] tobacco cessation again. She has had multiple intubations due to smoking. The patient is aware. however it is a bad addiction to treat. Discharge Plan: Home Plan to discharge in: 24 Hours - Code Status/Comfort Care Code Status Assessed: No Code Status: Full Code Physician Review: Patient Assessed, Agree with Above Assessment and Plan Critical Care: No Time Spent Managing Pts Care (In Minutes): 25
[2018-01-26] MEDS: ATORVASTATIN 20 MG TAB PO SCH (21:11)
[2018-01-26] MEDS: XALATAN OPTH SCH (21:12)
[2018-01-26] MEDS: clonazePAM 0.5 MG TAB PO PRN (23:55)
[2018-01-27] MEDS: ALBUTEROL 2.5 MG/3 ML NEB SOL NEB SCH ×3 (01:00→14:10)
[2018-01-27] MEDS: IPRATROPIUM BROM 0.5MG/2.5ML NEB SCH ×3 (01:00→14:10)
[2018-01-27 05:07] VITALS: BMI 39.9
[2018-01-27] MEDS: LEVOTHYROXINE SOD 0.112 MG TAB PO SCH (06:13)
--- NOTE | 2018-01-27 08:03 | P.PN ---
Subjective Date of Service: 01/27/18 Primary Care Provider: Dr. Enriquez Chief Complaint: Acute COPD exacerbation Patient is back to her baseline she no longer desaturates on mild exertion slight cough wants to go home Review of Systems General: Weakness Respiratory: Cough, Shortness of Breath Physical Examination - Vital Signs Temperature: 97.2 F Blood Pressure: 108/62 Pulse: 54 Respirations: 20 Pulse Ox (%): 94 - Physical Exam General: Alert, Oriented x3 HEENT: Atraumatic Neck: Supple Respiratory: Clear to auscultation bilaterally, Diminished Cardiovascular: No edema, Regular rate/rhythm - Studies Medications List Reviewed: Yes Assessment & Plan - Problems (Diagnosis) (1) Acute and chronic respiratory failure (alrhb-cq-pofojqh) Onset Date: 03/05/17 Current Visit: No Status: Acute Plan: Patient was admitted with an exacerbation is back to her baseline patient can be discharged home on her regular medication reduce prednisone to 10 mg twice a day for 7 days and back to her 10 mg daily no antibiotics necessary all cultures are negative continue with Diamox patient to resume 2 L of nasal cannula oxygen discharge today Qualifiers: Respiratory failure complication: hypoxia and hypercapnia Qualified Code(s) : J96.21 - Acute and chronic respiratory failure with hypoxia; J96.22 - Acute and chronic respiratory failure with hypercapnia; J96.22 - Acute and chronic respiratory failure with hypercapnia; J96.22 - Acute and chronic respiratory failure with hypercapnia Physician Review: Patient Assessed, Agree with Above Assessment and Plan
[2018-01-27] MEDS: ARFORMOTEROL TARTRATE 15 MCG/2 ML VIAL.NEB NEB SCH (08:05)
[2018-01-27] MEDS: CARVEDILOL 6.25 MG TAB PO SCH (09:00)
[2018-01-27] MEDS: NICOTINE 21 MG/PAT TD SCH (09:00)
[2018-01-27] MEDS: levoFLOXacin 500 MG TAB PO SCH (09:03)
[2018-01-27] MEDS: FLONASE NAS SCH (09:03)
[2018-01-27] MEDS: ACETAMINOPHEN 500 MG TAB PO PRN (09:03)
[2018-01-27] MEDS: predniSONE 20 MG TAB PO SCH (09:04)
[2018-01-27] MEDS: acetaZOLAMIDE 250 MG TAB PO SCH (09:04)
[2018-01-27] MEDS: SPIRONOLACTONE 25 MG TABLET PO SCH (09:04)
[2018-01-27] MEDS: ENOXAPARIN 40 MG/0.4 ML SQ SCH (09:04)
[2018-01-27] MEDS: ASPIRIN EC 81 MG TAB PO SCH (09:04)
[2018-01-27] MEDS: THEOPHYLLINE SR 100 MG TAB PO SCH (09:07)
--- NOTE | 2018-01-27 16:05 | P.DS ---
Admission Date: 01/18/18 Discharge Date: 01/27/18 Primary Care Provider: Dr. Enriquez Disposition: ROUTINE DISCHARGE Discharge Condition: FAIR Reason for Admission: Acute COPD exacerbation - Problems (1) Acute and chronic respiratory failure ([id number]-[id number]) Onset Date: 03/05/17 Current Visit: No Status: Acute Qualifiers: Respiratory failure complication: hypoxia and hypercapnia Qualified Code(s) : J96.21 - Acute and chronic respiratory failure with hypoxia; J96.22 - Acute and chronic respiratory failure with hypercapnia; J96.22 - Acute and chronic respiratory failure with hypercapnia; J96.22 - Acute and chronic respiratory failure with hypercapnia (2) CHF (congestive heart failure) Onset Date: 05/09/15 Current Visit: No Status: Chronic Qualifiers: Heart failure type: diastolic Heart failure chronicity: acute on chronic Qualified Code(s): I50.33 - Acute on chronic diastolic (congestive) heart failure (3) Tobacco abuse Onset Date: 03/05/17 Current Visit: No Status: Chronic Brief History of Present Illness: Patient was admitted for Respiratory failure. Attempted bipap therapy in the Er. However her CO2 cont to go up and the patient was intubated. Hospital Course: Patient was admitted to the ICU. She was able to get off the vent in 2 days. Transfered to the floor on bipap. She is has been having some hypoxia on exertion. Unfortunately normal in severe copd. Will set up home health. have her follow up with myself and Dr. Antonio. Vital Signs/Physical Exam: Temp Pulse Resp BP Pulse Ox 97.8 F 76 20 105/69 95 01/27/18 12:00 01/27/18 12:00 01/27/18 12:00 01/27/18 12:00 01/27/18 12:00 General: Alert, In no apparent distress HEENT: Atraumatic, PERRLA, EOMI Neck: Supple, JVD not distended Respiratory: Normal air movement, Diminished Cardiovascular: Regular rate/rhythm, Normal S1 S2 Gastrointestinal: Normal bowel sounds, No tenderness Musculoskeletal: No tenderness Integumentary: No rashes Neurological: Normal speech, Normal tone, Normal affect Lymphatics: No axilla or inguinal lymphadenopathy Laboratory Data at Discharge: WBC 10.5 K/uL (4.3-10.9) D 01/26/18 04:55 Hgb 12.8 g/dL (12.0-15.0) 01/26/18 04:55 Hct 39.9 % (36.0-45.0) 01/26/18 04:55 Plt Count 141 K/uL (152-406) L 01/26/18 04:55 PT 9.9 SECONDS (9.5-12.5) 01/17/18 22:14 INR 0.84 01/17/18 22:14 APTT 23.4 SECONDS (24.3-36.9) L 01/17/18 22:14 Sodium 140 mEq/L (135-145) 01/26/18 04:55 Potassium 4.5 mEq/L (3.6-5.0) 01/26/18 04:55 BUN 18 mg/dL (6-20) 01/26/18 04:55 Creatinine 0.78 mg/dL (0.44-1.00) 01/26/18 04:55 Glucose 129 mg/dL (65-120) H 01/26/18 04:55 Phosphorus 4.3 mg/dL (2.5-4.3) 01/19/18 05:48 Magnesium 2.3 mg/dL (1.8-2.5) 01/22/18 05:35 Total Bilirubin 0.6 mg/dL (0.3-1.2) 01/26/18 04:55 AST 16 IU/L (10-42) 01/26/18 04:55 ALT 23 IU/L (10-60) 01/26/18 04:55 Alkaline Phosphatase 53 IU/L (42-121) 01/26/18 04:55 B-Natriuretic Peptide 58 pg/ml (<=100) 01/17/18 22:14 Home Medications: Albuterol Sulfate [Proair Hfa] 8.5 gm IH DAILY 10/22/15 Atorvastatin Calcium 20 mg PO BEDTIME 10/10/17 Carvedilol 6.25 mg PO BID 10/10/17 Fluticasone [Flonase 50MCG Nasal [place]*] 1 spr IN DAILY 10/10/17 Furosemide 20 mg PO DAILY 10/10/17 Latanoprost Ophth [Xalatan 0.005%*] 1 gtt EACH EYE BEDTIME 10/10/17 Nicotine [Nicoderm*] 1 patch TD DAILY 10/10/17 Roflumilast [Daliresp*] 500 mcg PO DAILY 10/10/17 Umeclidinium Brm/Vilanterol Tr [Anoro Ellipta 62.5-25 Mcg INH] 1 puff IH DAILY 10/10/17 Acetazolamide [Diamox*] 250 mg PO BID #60 tab 10/20/17 Aspirin [Aspirin EC 81 MG] 81 mg PO DAILY 01/18/18 Clonazepam [Klonopin*] 0.5 mg PO DAILY 01/18/18 Cyclobenzaprine HCl [Flexeril] 5 mg PO BEDTIME 01/18/18 Levothyroxine [Synthroid*] 112 mcg PO DAILYAC 01/18/18 Prednisone [Deltasone*] 20 mg PO BID 01/18/18 Benzonatate [Tessalon Perle*] 100 mg PO TID PRN #30 cap 01/23/18 Clonazepam [Klonopin*] 0.5 mg PO DAILY PRN tab 01/27/18 Prednisone [Deltasone*] 10 mg PO BID 7 Days #14 tab 01/27/18 New Medications: Benzonatate [Tessalon Perle*] 100 mg PO TID PRN #30 cap PRN Reason: Cough Prednisone [Deltasone*] 10 mg PO BID 7 Days #14 tab Patient Discharge Instructions: f/up w PCP in 2-3 days. 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 Return to ER for worsening condition Diet: Low sodium (1500 ml fluid restriction) Activity: no strenuous activity Followup: Isai Do MD [ACTIVE - CAN ADMIT] - (follow up in 2 weeks, call to schedule appointment) Time spent managing pt's care (in minutes): 45
[2018-01-27 16:50] VITALS: O2SAT 92
[2018-01-27 17:02] VITALS: BP 129/71; TEMP 98.3
[2018-01-27] MEDS: clonazePAM 0.5 MG TAB PO PRN (17:57)
[2018-01-27] MEDS ORDERED: CARVEDILOL 3.125 MG TAB PO SCH (21:00)
== END 2018-01-27 18:09 | disposition home or self-care (01) | DRG 208 ==
LOC: ER 21:27 → 4TH 01-18 01:37 → 3RD-ICU 01-19 18:50 → 4TH 01-22 12:00
PROVIDERS: ADMIT Hospitalist; ATTEND Internal Medicine
PROC: 5A09357 Assistance with Respiratory Ventilation, Less than 24 Consecutive Hours, Continuous Positive Airway Pressure (ICD-10-PCS; 2018-01-19)
PROC: 5A1945Z Respiratory Ventilation, 24-96 Consecutive Hours (ICD-10-PCS; principal; 2018-01-20)
PROC: 02HV33Z Insertion of Infusion Device into Superior Vena Cava, Percutaneous Approach (ICD-10-PCS; 2018-01-20)
DX: J96.21 Acute and chronic respiratory failure with hypoxia (principal); I50.33 Acute on chronic diastolic (congestive) heart failure; E87.2 Acidosis; E66.2 Morbid (severe) obesity with alveolar hypoventilation; J96.22 Acute and chronic respiratory failure with hypercapnia; I27.20 Pulmonary hypertension, unspecified; E03.9 Hypothyroidism, unspecified; F31.9 Bipolar disorder, unspecified; I10 Essential (primary) hypertension; G47.33 Obstructive sleep apnea (adult) (pediatric); F17.200 Nicotine dependence, unspecified, uncomplicated; Z68.39 Body mass index [BMI] 39.0-39.9, adult
CPT/HCPCS: 36415; 71045; 71275; 80048; 80053; 81003; 82805; 83735; 83880; 84100; 84132; 84145; 84484; 85025; 85379; 85610; 85730; 87040; 87070; 87205; 93005; 94002; 94003; 94640; 94660; 94760; 96374; 96375; 99285; J0330; J0456; J0696; J1265; J1630; J1650; J2175; J2250; J2405; J2543; J2930; J3010; J7512; J7605; Q9967

== ENCOUNTER 2018-02-17 15:04 | Inpatient (IN) | payer OTHER ==
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
--- OUTSIDE RECORDS SUMMARY | 2018-02-17 15:07 | XMS REPORT ---
:1960 [facility] [place] [address] Care Team Providers Name Role Phone HESHAM [...] Comments SODIUM (BEAKER) (test 139 meq/L 136-145 jrra=126) POTASSIUM (BEAKER) (test 3.5 meq/L 3.5-5.1 vdus=560) CHLORIDE (BEAKER) (test 95 meq/L 98-107 fkmo=170) CO2 (BEAKER) (test bmao=909) 40 meq/L 22-29 BLOOD UREA NITROGEN (BEAKER) 14 mg/dL 7-21 (test wqfj=493) CREATININE (BEAKER) (test 0.64 mg/dL 0.57-1.25 cxsg=540) GLUCOSE RANDOM (BEAKER) 92 mg/dL 70-105 (test lhtd=928) CALCIUM (BEAKER) (test 8.4 mg/dL 8.4-10.2 acps=377) EGFR (BEAKER) (test 96 mL/min/1.73 sq m ESTIMATED GFR IS NOT jmyq=9515) ACCURATE CREATININE CLEARANCE IN PREDICTING GLOMERULAR FILTRATION RATE. ESTIMATED GFR IS NOT APPLICABLE FOR DIALYSIS PATIENTS. CBC (HEMOGRAM ONLY)2017-02-26 05:21:00 Test Item Value Reference Range Comments WHITE BLOOD CELL COUNT (BEAKER) (test jcpv=573) 6.4 K/ L 4.0-10.0 RED BLOOD CELL COUNT (BEAKER) (test udcf=713) 4.17 M/ L 4.00-5.00 HEMOGLOBIN (BEAKER) (test shct=693) 12.0 GM/DL 12.0-15.0 HEMATOCRIT (BEAKER) (test fvit=354) 39.4 % 36.0-45.0 MEAN CORPUSCULAR VOLUME (BEAKER) (test ofqy=086) 94.4 fL 82.0-99.0 MEAN CORPUSCULAR HEMOGLOBIN (BEAKER) (test 28.8 pg 27.0-33.0 bqnj=849) MEAN CORPUSCULAR HEMOGLOBIN CONC (BEAKER) (test 30.5 GM/DL 32.0-36.0 inni=431) RED CELL DISTRIBUTION WIDTH (BEAKER) (test 13.1 % 10.3-14.2 pazz=338) PLATELET COUNT (BEAKER) (test ynfb=606) 137 K/CU MM 150-430 MEAN PLATELET VOLUME (BEAKER) (test ebzd=713) 7.2 fL 6.5-10.5 NUCLEATED RED BLOOD CELLS (BEAKER) (test 0 /100 WBC 0-0 wnbe=740) 0.00POCT-GLUCOSE [id number] 17:50:00 Test Item Value Reference Range Comments POC-GLUCOSE METER (BEAKER) 118 mg/dL 70-110 TESTED AT [address] (test jhyq=6636) [place] [address] POCT-GLUCOSE [id number] 11:59:00 Test Item Value Reference Range Comments POC-GLUCOSE METER (BEAKER) 247 mg/dL 70-110 TESTED AT [address] (test grhc=9000) [place] [id number] POCT-GLUCOSE [id number] 07:54:00 Test Item Value Reference Range Comments POC-GLUCOSE METER (BEAKER) 141 mg/dL 70-110 TESTED AT [address] (test glpa=7840) [place] [id number] CBC W/PLT COUNT & AUTO [id number] 03:45:00 Test Item Value Reference Range Comments WHITE BLOOD CELL COUNT (BEAKER) (test lyjg=958) 4.9 K/ L 4.0-10.0 RED BLOOD CELL COUNT (BEAKER) (test jwwx=091) 4.03 M/ L 4.00-5.00 HEMOGLOBIN (BEAKER) (test nscs=180) 12.2 GM/DL 12.0-15.0 HEMATOCRIT (BEAKER) (test shpc=573) 37.3 % 36.0-45.0 MEAN CORPUSCULAR VOLUME (BEAKER) (test zrdm=972) 92.5 fL 82.0-99.0 MEAN CORPUSCULAR HEMOGLOBIN (BEAKER) (test 30.3 pg 27.0-33.0 ccbn=243) MEAN CORPUSCULAR HEMOGLOBIN CONC (BEAKER) (test 32.8 GM/DL 32.0-36.0 ncuv=259) RED CELL DISTRIBUTION WIDTH (BEAKER) (test 14.3 % 10.3-14.2 kqeb=429) PLATELET COUNT (BEAKER) (test loph=961) 122 K/CU MM 150-430 MEAN PLATELET VOLUME (BEAKER) (test jtfl=341) 8.0 fL 6.5-10.5 NUCLEATED RED BLOOD CELLS (BEAKER) (test 0 /100 WBC 0-0 knme=269) NEUTROPHILS RELATIVE PERCENT (BEAKER) (test 88 % zwsh=216) LYMPHOCYTES RELATIVE PERCENT (BEAKER) (test 10 % qvti=125) MONOCYTES RELATIVE PERCENT (BEAKER) (test 2 % zumu=018) EOSINOPHILS RELATIVE PERCENT (BEAKER) (test 0 % tqwk=093) BASOPHILS RELATIVE PERCENT (BEAKER) (test 0 % wbah=624) NEUTROPHILS ABSOLUTE COUNT (BEAKER) (test 4.32 K/ L 1.80-8.00 ubln=549) LYMPHOCYTES ABSOLUTE COUNT (BEAKER) (test 0.49 K/ L 1.48-4.50 pfnz=862) MONOCYTES ABSOLUTE COUNT (BEAKER) (test 0.09 K/ L 0.00-1.30 sgzw=478) EOSINOPHILS ABSOLUTE COUNT (BEAKER) (test 0.02 K/ L 0.00-0.50 pjbi=989) BASOPHILS ABSOLUTE COUNT (BEAKER) (test 0.01 K/ L 0.00-0.20 exrd=217) [id number] 03:29:00 Test Item Value Reference Range Comments MAGNESIUM (BEAKER) (test 1.8 mg/dL 1.6-2.6 Specimen slightly hemolyzed nisu=668) BASIC METABOLIC [id number] 03:29:00 Test Item Value Reference Range Comments SODIUM (BEAKER) (test 139 meq/L 136-145 vzsc=971) POTASSIUM (BEAKER) (test 4.4 meq/L 3.5-5.1 Specimen slightly dlgx=041) hemolyzed CHLORIDE (BEAKER) (test 93 meq/L 98-107 wbje=014) CO2 (BEAKER) (test 39 meq/L 22-29 swdw=351) BLOOD UREA NITROGEN 15 mg/dL 7-21 (BEAKER) (test sjke=457) CREATININE (BEAKER) (test 0.67 mg/dL 0.57-1.25 Specimen slightly gwfn=177) hemolyzed GLUCOSE RANDOM (BEAKER) 150 mg/dL 70-105 (test iulx=743) CALCIUM (BEAKER) (test 8.6 mg/dL 8.4-10.2 kxva=837) EGFR (BEAKER) (test 91 mL/min/1.73 sq m ESTIMATED GFR IS NOT rqlq=5271) ACCURATE CREATININE CLEARANCE IN PREDICTING GLOMERULAR FILTRATION RATE. ESTIMATED GFR IS NOT APPLICABLE FOR DIALYSIS PATIENTS. POCT-GLUCOSE [id number] 00:05:00 Test Item Value Reference Range Comments POC-GLUCOSE METER (BEAKER) 117 mg/dL 70-110 TESTED AT [address] (test funf=4906) [facility] [address] POCT-GLUCOSE [id number] 18:17:00 Test Item Value Reference Range Comments POC-GLUCOSE METER (BEAKER) 141 mg/dL 70-110 TESTED AT [address] (test huuz=0114) [place] [id number] CREATINE KINASE (CK), TOTAL AND [id number] 15:43:00 Test Item Value Reference Range Comments CREATINE KINASE TOTAL (BEAKER) (test hzzc=199) 31 U/L 29-200 CREATINE KINASE-MB (BEAKER) (test jxlk=264) 1.3 ng/mL 0.0-6.6 CREATINE KINASE-MB INDEX (BEAKER) (test jsyf=176) 4.2 % Effective 08/09/2014: CK-MB Reference Range ChangeNew: 0.0-6.6 Previous: 0.0- 4.9CK-MB Reference Range:<6.7 Normal6.7-10.0 Borderline>10.0 AbnormalBLOOD GAS, [id number] 15:26:00 Test Item Value Reference Range Comments PH ARTERIAL (BEAKER) (test ahna=859) 7.41 7.35-7.45 PCO2 ARTERIAL (BEAKER) (test jktg=226) 68 mmHg 35-45 PO2 ARTERIAL (BEAKER) (test dkzp=222) 67 mmHg 80-90 O2 SATURATION ARTERIAL (BEAKER) (test dnvv=786) 92.2 % 96.0-97.0 HCO3 ARTERIAL (BEAKER) (test tnvw=109) 42 mmol/L 21-29 BASE EXCESS ARTERIAL (BEAKER) (test grus=440) 14.8 mmol/L -2.0-3.0 PATIENT TEMPERATURE (BEAKER) (test nfhv=2190) 37.5 C FIO2 (BEAKER) (test ytvs=2742) 35.0 % POCT-GLUCOSE [id number] 11:45:00 Test Item Value Reference Range Comments POC-GLUCOSE METER (BEAKER) 122 mg/dL 70-110 TESTED AT [facility] [address] (test wmhp=7940) [facility] [address] CREATINE KINASE (CK), TOTAL AND [id number] 10:29:00 Test Item Value Reference Range Comments CREATINE KINASE TOTAL (BEAKER) (test decn=218) 31 U/L 29-200 CREATINE KINASE-MB (BEAKER) (test mogu=964) 1.5 ng/mL 0.0-6.6 CREATINE KINASE-MB INDEX (BEAKER) (test gkcy=957) 4.8 % Effective 08/09/2014: CK-MB Reference Range ChangeNew: 0.0-6.6 Previous: 0.0- 4.9CK-MB Reference Range:<6.7 Normal6.7-10.0 Borderline>10.0 AbnormalTROPONIN [id number] 10:29:00 Test Item Value Reference Range Comments TROPONIN I (BEAKER) (test hciu=633) < ng/mL 0.00-0.03 Effective 08/09/2014: Reference Range [...] renalfailure, acidosis, acute neurological disease, and persistent tachyarrhythmia.[id number] 10:22:00 Test Item Value Reference Range Comments PARTIAL THROMBOPLASTIN TIME (BEAKER) (test 22.5 seconds 22.5-36.0 xsws=034) PROTHROMBIN TIME/[id number] 10:21:00 Test Item Value Reference Range Comments PROTIME (BEAKER) (test ihtg=088) 12.4 seconds 11.7-14.7 INR (BEAKER) (test thyd=380) 0.9 <=5.9 RECOMMENDED COUMADIN/WARFARIN INR THERAPY RANGESSTANDARD DOSE: 2.0 - 3.0 Includes: PROPHYLAXIS forvenous thrombosis, systemic embolization; TREATMENT for venous thrombosis and/or pulmonary embolus.HIGH RISK: Target INR is 2.5-3.5 for patients with mechanical heart valves.BLOOD GAS, [id number] 10:17:00 Test Item Value Reference Range Comments PH ARTERIAL (BEAKER) (test cemp=118) 7.42 7.35-7.45 PCO2 ARTERIAL (BEAKER) (test dbvu=242) 63 mmHg 35-45 PO2 ARTERIAL (BEAKER) (test cjek=244) 51 mmHg 80-90 O2 SATURATION ARTERIAL (BEAKER) (test abzq=941) 85.7 % 96.0-97.0 HCO3 ARTERIAL (BEAKER) (test gane=788) 40 mmol/L 21-29 BASE EXCESS ARTERIAL (BEAKER) (test ehpe=539) 12.7 mmol/L -2.0-3.0 PATIENT TEMPERATURE (BEAKER) (test czio=5824) 37.0 C FIO2 (BEAKER) (test wncn=5555) 40.0 % PLATELET [id number] 10:13:00 Test Item Value Reference Range Comments PLATELET COUNT (BEAKER) (test udmm=449) 111 K/CU MM 150-430
[2018-02-17] MEDS ORDERED: ALBUTEROL 2.5 MG/3 ML NEB SOL ONE (15:27)
[2018-02-17] MEDS ORDERED: IPRATROPIUM BROM 0.5MG/2.5ML ONE (15:28)
[2018-02-17 16:18] LABS: Absolute Lymphocytes (CBC) 1.4 K/uL (0.7-4.9); Absolute Monocytes 0.5 K/uL (0.1-1.3); Absolute Neutrophil 2.7 K/uL (1.8-8.0); Basophils % 0.3 % (0-1.3); Eosinophils % 2.9 % (0-4.4); Hematocrit 36.4 % (36.0-45.0); Lymphocytes % 29.9 % (15.3-44.8); MCH 28.2 pg (27.0-35.0); MCV 87.3 fL (80-100); MPV 7.1 fL (7.6-11.3); Monocytes % 10.2 % (3.3-12.3); RBC Red Blood Cell Count 4.17 M/uL (3.86-4.86)
[2018-02-17 16:27] LABS: Glucose Level 121 mg/dL (65-120)
[2018-02-17 16:28] LABS: BUN Blood Urea Nitrogen 10 mg/dL (6-20); Potassium 3.9 mEq/L (3.6-5.0); Sodium Level 140 mEq/L (135-145)
[2018-02-17 16:31] LABS: Bicarbonate 44 mEq/L (21-31); Protime INR 0.97
--- NOTE | 2018-02-17 17:32 | ER ---
Nurse's Notes [facility] Name: Vikki Zamudio Age: 57 yrs Sex: Female : 1960 Arrival Date: 02/17/2018 Time: 15:06 Bed 4 Private MD: Isai Do K Diagnosis: Acute respiratory failure Presentation: 02/17 15:10 Presenting complaint: EMS states: pt was being evaluated since getting discharged from the hospital, c/o shortness of breath, dizziness, reports hand and feet swelling, fatigue, general weakness. Transition of care: patient was not received from another setting of care. Onset of symptoms was February 17, 2018. Risk Assessment: Do you want to hurt yourself or someone else? Patient reports no desire to harm self or others. Initial Sepsis Screen: Does the patient meet any 2 criteria? No. Patient's initial sepsis screen is negative. Does the patient have a suspected source of infection? No. Patient's initial sepsis screen is negative. Care prior to arrival: Medication(s) given: solumedrol 125 mg IVP IV initiated. 20 GA, in the right hand, Med neb given. Oxygen administered. via a nebulizer mask. 15:10 Method Of Arrival: EMS: [facility] 15:10 Acuity: LIZETH 2 Triage Assessment: 19:34 General: Appears in no apparent distress. Respiratory: Reports shortness of breath ak1 Onset: The symptoms/episode began/occurred today, the patient has moderate shortness of breath. Historical: - Allergies: 15:19 Codeine; sg - Home Meds: 15:19 acetazolamide 125 mg oral tab 1 tab once daily [Active]; Albuterol Inhl [Active]; sg aspirin 81 mg Oral TbEC 1 tab once daily [Active]; atorvastatin 20 mg Oral tab 1 tab once daily [Active]; Nicoderm CQ 21 mg/24 hr transdermal pt24 1 patch once daily [Active]; Tessalon Perles 100 mg Oral cap 1 cap 3 times per day [Active]; clonazepam 0.5 mg Oral tab 1 tab daily [Active]; levothyroxine 88 mcg oral tab 1 tab once daily [Active]; Anoro Ellipta 62.5-25 mcg/actuation inhalation dsdv 1 puff once daily [Active]; Daliresp 500 mcg oral tab 1 tab once daily [Active]; - PMHx: 15:19 CHF; COPD; High Cholesterol; Panic Attacks; Hypertension; Hypothyroidism; Sleep Apnea; sg GERD; - Immunization history:: Adult Immunizations unknown. - Social history:: The patient lives at home, Smoking status: unknown. - Ebola Screening: : No symptoms or risks identified at this time. Screenin:10 Abuse screen: Denies threats or abuse. Denies injuries from another. Nutritional sg screening: No deficits noted. Tuberculosis screening: No symptoms or risk factors identified. Never had TB. Fall Risk None identified. Assessment: 15:10 General: Appears well groomed, well developed, well nourished, Behavior is calm, sg cooperative, appropriate for age. Pain: Denies pain. Neuro: Level of Consciousness is awake, alert, obeys commands, Oriented to person, place, time, situation, Pigs Feet Finisher are equal bilaterally Moves all extremities. Full function Speech is normal, Facial symmetry appears normal. Cardiovascular: Heart tones S1 S2 present Capillary refill is brisk in bilateral fingers Patient's skin is warm and dry. Chest pain is denied. Respiratory: Airway is patent Respiratory effort is even, unlabored, Breath sounds are coarse Breath sounds with wheezes. GI: Abdomen is round non-distended, obese, Bowel sounds present X 4 quads. : No signs and/or symptoms were reported regarding the genitourinary system. EENT: No signs and/or symptoms were reported regarding the EENT system. Derm: Skin is pink, warm \T\ dry. Musculoskeletal: No signs and/or symptoms reported regarding the musculoskeletal system. 15:15 Reassessment: Resp at bedside for application of BiPAP, pt tolerating BiPAP well. sg 16:00 Reassessment: Patient appears in no apparent distress at this time. Patient and/or sg family updated on plan of care and expected duration. Pain level reassessed. Patient is alert, oriented x 3, equal unlabored respirations, skin warm/dry/pink. Patient states feeling better. 17:00 Reassessment: Patient appears in no apparent distress at this time. Patient and/or sg family updated on plan of care and expected duration. Pain level reassessed. Patient is alert, oriented x 3, equal unlabored respirations, skin warm/dry/pink. pt requesting water, pt took off BiPAP mask removed for drink of water, pt tolerated well Patient states feeling better. 18:00 Reassessment: Patient appears in no apparent distress at this time. Patient and/or sg family updated on plan of care and expected duration. Pain level reassessed. Patient is alert, oriented x 3, equal unlabored respirations, skin warm/dry/pink. awaiting a bed assignment at this time Patient states feeling better. 19:35 Cardiovascular: Rhythm is regular. ak1 Vital Signs: 15:07 BP 121 / 107; Pulse 73; Resp 26 S; Temp 97.9; Pulse Ox 100% on 15% Nebulizer Mask; sg Weight 122.92 kg (R); Height 5 ft. 9 in. (175.26 cm) (R); Pain 3/10; 16:00 BP 142 / 88; Pulse 70; Resp 17 S; Pulse Ox 99% on 30% BiPAP; Pain 3/10; sg 18:00 BP 133 / 89; Pulse 70; Resp 16 S; Temp 97.9; Pulse Ox 96% on 30% BiPAP; Pain 3/10; sg 20:30 BP 140 / 84; Pulse 72; Resp 22; Temp 98.0; Pulse Ox 95% on 30% BiPAP; Pain 3/10; fc 15:07 Body Mass Index 40.02 (122.92 kg, 175.26 cm) sg ED Course: 15:06 Patient arrived in ED. sg 15:06 Isai Do MD is Private Physician. sg 15:10 Warner Pickens MD is Attending Physician. gs 15:13 Triage completed. sg 15:22 Andre Greenfield, RN is Primary Nurse. sg 15:22 EKG done, by screening technician. reviewed by Warner Pickens MD. sm3 15:44 Inserted saline lock: 22 gauge in left upper arm, using aseptic technique. Blood ss collected. 15:45 XRAY Chest (1 view) In Process Unspecified. EDMS 16:31 Notified ED physician of a critical lab result(s). CO2 44. sg 17:31 Chris Enriquez MD is Hospitalizing Provider. gs 19:34 Arm band placed on Patient placed in an exam room, on a stretcher, on awake overnight monitor, ak1 on pulse oximetry. 19:35 Patient has correct armband on for positive identification. Bed in low position. Call ak1 light in reach. Side rails up X 1. Side rails up X2. pt refused gown at this time. phototypesetting equipment monitor on. Pulse ox on. NIBP on. 19:36 No provider procedures requiring assistance completed. Patient admitted, IV remains in ak1 place. Administered Medications: 15:22 Drug: Albuterol - atroVENT (3:1) (2.5 mg - 0.5 mg) 3 ml Route: Nebulizer; 19:38 Follow up: Response: No adverse reaction ak1 Outcome: 17:31 Decision to Hospitalize by Provider. 19:37 Condition: stable ak1 19:37 Instructed on the need for admit. 20:30 Admitted to Tele accompanied by tech, via stretcher, room 215, with oxygen, with chart, fc Report called to Reena CARDONA 20:46 Patient left the ED. ak1 Signatures: Dispatcher [employer] EDMS Andre Greenfield RN Carol Marks RN RN Jaimie Fontana RN RN ss Krenek, Amber, RN RN ak1 Warner Pickens MD MD gs Montes, Shakira 3
--- NOTE | 2018-02-17 17:32 | EDPHYS ---
Physician Documentation [facility] Name: Vikki Zamudio Age: 57 yrs Sex: Female : 1960 Arrival Date: 02/17/2018 Time: 15:06 Bed 4 Private MD: Isai Do K ED Physician Warner Pickens HPI: 02/17 17:27 This 57 yrs old Female presents to ER via EMS with complaints of Shortness Of gs Breath. 17:27 The patient has shortness of breath at rest. Onset: The symptoms/episode began/occurred gs acutely, today. Duration: The symptoms are continuous, and are steadily getting worse. The patient's shortness of breath has no apparent modifying factors. Associated signs and symptoms: Pertinent positives: non-productive cough, Pertinent negatives:. Severity of symptoms: At their worst the symptoms were severe in the emergency department the symptoms are unchanged. The patient has experienced similar episodes in the past, chronically. Historical: - Allergies: 15:19 Codeine; sg - Home Meds: 15:19 acetazolamide 125 mg oral tab 1 tab once daily [Active]; Albuterol Inhl [Active]; sg aspirin 81 mg Oral TbEC 1 tab once daily [Active]; atorvastatin 20 mg Oral tab 1 tab once daily [Active]; Nicoderm CQ 21 mg/24 hr transdermal pt24 1 patch once daily [Active]; Tessalon Perles 100 mg Oral cap 1 cap 3 times per day [Active]; clonazepam 0.5 mg Oral tab 1 tab daily [Active]; levothyroxine 88 mcg oral tab 1 tab once daily [Active]; Anoro Ellipta 62.5-25 mcg/actuation inhalation dsdv 1 puff once daily [Active]; Daliresp 500 mcg oral tab 1 tab once daily [Active]; - PMHx: 15:19 CHF; COPD; High Cholesterol; Panic Attacks; Hypertension; Hypothyroidism; Sleep Apnea; sg GERD; - Immunization history:: Adult Immunizations unknown. - Social history:: The patient lives at home, Smoking status: unknown. - Ebola Screening: : No symptoms or risks identified at this time. ROS: 17:27 All other systems are negative. gs Exam: 17:27 Head/Face: Normocephalic, atraumatic. Eyes: Pupils equal round and reactive to light, gs extra-ocular motions intact. Lids and lashes normal. Conjunctiva and sclera are non-icteric and not injected. Cornea within normal limits. Periorbital areas with no swelling, redness, or edema. ENT: Nares patent. No nasal discharge, no septal abnormalities noted. Tympanic membranes are normal and external auditory canals are clear. Oropharynx with no redness, swelling, or masses, exudates, or evidence of obstruction, uvula midline. Mucous membranes moist. Neck: Trachea midline, no thyromegaly or masses palpated, and no cervical lymphadenopathy. Supple, full range of motion without nuchal rigidity, or vertebral point tenderness. No Meningismus. Chest/axilla: Normal chest wall appearance and motion. Nontender with no deformity. No lesions are appreciated. 17:27 Abdomen/GI: Soft, non-tender, with normal bowel sounds. No distension or tympany. No guarding or rebound. No evidence of tenderness throughout. Back: No spinal tenderness. No costovertebral tenderness. Full range of motion. MS/ Extremity: Pulses equal, no cyanosis. Neurovascular intact. Full, normal range of motion. Neuro: Awake and alert, GCS 15, oriented to person, place, time, and situation. Cranial nerves II-XII grossly intact. Motor strength 5/5 in all extremities. Sensory grossly intact. Cerebellar exam normal. Normal gait. 17:27 Constitutional: The patient appears alert, awake, in obvious distress, severely distressed. 17:27 Cardiovascular: Rate: tachycardic, Rhythm: regular, Pulses: no pulse deficits are appreciated, Heart sounds: normal. 17:27 ECG was reviewed by the Attending Physician. 17:27 Respiratory: severe repiratory distress is noted, Respirations: labored breathing, tachypnea, Breath sounds: decreased breath sounds, that are severe. Vital Signs: 15:07 BP 121 / 107; Pulse 73; Resp 26 S; Temp 97.9; Pulse Ox 100% on 15% Nebulizer Mask; sg Weight 122.92 kg (R); Height 5 ft. 9 in. (175.26 cm) (R); Pain 3/10; 16:00 BP 142 / 88; Pulse 70; Resp 17 S; Pulse Ox 99% on 30% BiPAP; Pain 3/10; sg 18:00 BP 133 / 89; Pulse 70; Resp 16 S; Temp 97.9; Pulse Ox 96% on 30% BiPAP; Pain 3/10; sg 20:30 BP 140 / 84; Pulse 72; Resp 22; Temp 98.0; Pulse Ox 95% on 30% BiPAP; Pain 3/10; fc 15:07 Body Mass Index 40.02 (122.92 kg, 175.26 cm) sg MDM: 15:10 Patient medically screened. 17:27 Differential diagnosis: Bronchitis CHF exacerbation, Chronic Obstructive Pulmonary gs Disease pneumonia. Data reviewed: vital signs, nurses notes. 17: Response to treatment: the patient's symptoms have markedly improved after treatment. Physician consultation: Chris Enriquez MD regarding admission, and will see patient in inpatient room, would like consultation with Dr. do. 02/17 15:11 Order name: Basic Metabolic Panel; Complete Time: 17: 02/17 15:11 Order name: BNP; Complete Time: : 02/17 15:11 Order name: CBC with Diff; Complete Time: : 02/17 15:11 Order name: PT-INR; Complete Time: : 02/17 15:11 Order name: Troponin (emerg Dept Use Only); Complete Time: 17: 02/17 15:11 Order name: XRAY Chest (1 view) 02/17 15:11 Order name: EKG; Complete Time: 15:12 02/17 15:11 Order name: Cardiac monitoring; Complete Time: 15:20 02/17 15:11 Order name: EKG - Nurse/Tech; Complete Time: 15:20 02/17 15:11 Order name: IV Saline Lock; Complete Time: 15:20 02/17 15:11 Order name: Labs collected and sent; Complete Time: 15:20 02/17 15:11 Order name: O2 Per Protocol; Complete Time: 15:20 02/17 15:11 Order name: BIPAP 02/17 15:11 Order name: O2 Sat Monitoring; Complete Time: 15:20 EC: Rate is 94 beats/min. Rhythm is regular. SC interval is normal. QRS interval is normal. gs T waves are Normal. No ST changes noted. Clinical impression: Abnormal EKG without significant change. Interpreted by me. Administered Medications: 15: Drug: Albuterol - atroVENT (3:1) (2.5 mg - 0.5 mg) 3 ml Route: Nebulizer; 19:38 Follow up: Response: No adverse reaction ak1 Disposition: 17:27 Critical Care:. Disposition: 02/17/18 17:31 Hospitalization ordered by Chris Enriquez for Inpatient Admission. Preliminary diagnosis is Acute respiratory failure. - Bed requested for Telemetry/MedSurg (Inpatient). - Status is Inpatient Admission. ak1 - Condition is Stable. - Problem is an acute exacerbation. - Symptoms have improved. UTI on Admission? No Critical care time excluding procedures: 17:27 Critical care time: Bedside Care: 10 minutes, Consultation: 10 minutes, Family gs Intervention: 10 minutes. Total time: 30 minutes Signatures: Dispatcher [employer] Dayanna Dumont RN RN Andre Greenfield RN RN Leena Alvarez RN RN ak1 Warner Pickens MD MD Hetal Shetty Corrections: (The following items were deleted from the chart) 19:15 17:31 Hospitalization Ordered by Chris Enriquez MD for Inpatient Admission. Preliminary diagnosis is Acute respiratory failure. Bed requested for Telemetry/MedSurg (Inpatient). Status is Inpatient Admission. Condition is Stable. Problem is an acute exacerbation. Symptoms have improved. UTI on Admission? No. gs 19:52 19:15 02/17/2018 17:31 Hospitalization Ordered by Chris Enriquez MD for Inpatient eb Admission. Preliminary diagnosis is Acute respiratory failure. Bed requested for Telemetry/MedSurg (Inpatient). Status is Inpatient Admission. Condition is Stable. Problem is an acute exacerbation. Symptoms have improved. UTI on Admission? No. dw 20:46 19:52 02/17/2018 17:31 Hospitalization Ordered by Chris Enriquez MD for Inpatient ak1 Admission. Preliminary diagnosis is Acute respiratory failure. Bed requested for Telemetry/MedSurg (Inpatient). Status is Inpatient Admission. Condition is Stable. Problem is an acute exacerbation. Symptoms have improved. UTI on Admission? No. eb
[2018-02-17] MEDS ORDERED: ACETAMINOPHEN 500 MG TAB PO PRN (17:35)
[2018-02-17] MEDS ORDERED: ALBUTEROL 2.5 MG/3 ML NEB SOL NEB PRN (17:37)
[2018-02-17] MEDS ORDERED: IPRATROPIUM BROM 0.5MG/2.5ML NEB PRN (17:38)
--- NOTE | 2018-02-17 19:14 | RAD REPORT ---
EXAM DESCRIPTION: RAD - Chest Single View - 02/17/2018 3:51 pm CLINICAL HISTORY: Shortness of breath COMPARISON: January 23 TECHNIQUE: AP portable chest image was obtained 1543 hours . FINDINGS: No peripheral mass or consolidation. Left base opacification is believed to be artifact of body habitus and portable technique. Heart and vasculature are normal. No measurable pleural effusio n and no pneumothorax. No gross bony abnormality seen. No acute aortic findings suspected. IMPRESSION: No acute cardiopulmonary process. No significant change from comparison.
[2018-02-17] MEDS: IPRATROPIUM BROM 0.5MG/2.5ML NEB SCH (20:48)
[2018-02-17] MEDS: ALBUTEROL 2.5 MG/3 ML NEB SOL NEB SCH (20:48)
[2018-02-17 20:53] VITALS: BMI 40.2
--- NOTE | 2018-02-17 21:34 | EKG ---
Test Date: 2018-02-17 Test Time: 15:13:54 Locomotive Switch Operator: MARGARETTE MEASUREMENT RESULTS: Intervals: Rate: 94 WA: 160 QRSD: 80 QT: 368 QTc: 460 [place]: P: 82 WA: 160 QRS: 90 T: 85 INTERPRETIVE STATEMENTS: Sinus rhythm with marked sinus arrhythmia Rightward axis Borderline ECG Compared to ECG 01/21/2018 11:35:11 Right-axis deviation now present Electronically Signed On 02-17-18 21:33:17 CDT by Selvin Mar
[2018-02-17] MEDS: NACHLORIDE 0.45% 1,000 ML IV SCH (22:25)
[2018-02-18] MEDS: ALBUTEROL 2.5 MG/3 ML NEB SOL NEB SCH ×5 (00:06→20:10)
[2018-02-18] MEDS: IPRATROPIUM BROM 0.5MG/2.5ML NEB SCH ×5 (00:06→20:10)
[2018-02-18] MEDS ORDERED: METHYLPREDNISOLONE 40 MG INJ IV SCH (01:00)
[2018-02-18 06:22] LABS: Arterial Blood Carboxyhemoglob 1.8 % (0-1.5); Blood Gas Oxyhemoglobin 86.1 % (94-97); Blood O2 Saturation 87.9 % (92-98.5)
[2018-02-18] MEDS: NACHLORIDE 0.45% 1,000 ML IV SCH ×2 (07:20→20:52)
[2018-02-18] MEDS ORDERED: BENZONATATE 100 MG CAP PO PRN (08:40)
--- NOTE | 2018-02-18 08:45 | P.PN ---
Subjective Date of Service: 02/18/18 Chief Complaint: Respiratory failure Subjective: Improving (Patient is doing better she was seen in my office yesterday with shortness of breath and hypoxemia patient is back to her baseline denies any cough sputum) Review of Systems General: Weakness Respiratory: Shortness of Breath Physical Examination - Vital Signs Temperature: 98 F Blood Pressure: 112/61 Pulse: 65 Respirations: 20 Pulse Ox (%): 90 - Physical Exam General: Alert, Moderate distress Respiratory: Diminished, Expiratory wheezes Cardiovascular: No edema, Normal S1 S2 - Studies Laboratory Data (last 24 hrs) 02/17/18 15:44: PT 11.5, INR 0.97 02/17/18 15:44: WBC 4.8, Hgb 11.7 L, Hct 36.4, Plt Count 232 02/17/18 15:44: B-Natriuretic Peptide 40 02/17/18 15:44: Sodium 140, Potassium 3.9, BUN 10, Creatinine 0.61, Glucose 121 H Assessment & Plan - Problems (Diagnosis) (1) Chronic respiratory failure Current Visit: Yes Status: Acute Plan: Patient is 57 years of age recurrent hospital admissions terminal COPD dated from my office come with hypoxemia patient is noncompliant with her BiPAP otherwise plan to resume all her home medication patient is not edematous bicarbonate is mildly elevated niece to be on Diamox at home which is not listed as 1 of her home medication she is on maximum bronchodilator medications continue with IV fluids 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 prednisone chest x-ray is clear there is no evidence of sepsis CO2 is at baseline loss the respiratory therapist to evaluate the use of her home BiPAP monitor for another day possible discharge tomorrow Qualifiers: Respiratory failure complication: hypoxia and hypercapnia Qualified Code(s) : J96.11 - Chronic respiratory failure with hypoxia; J96.12 - Chronic respiratory failure with hypercapnia
[2018-02-18] MEDS ORDERED: HOME MED 1 EA UNK (Umeclidinium Brm/Vilanterol Tr [Anoro Ellipta 62.5-25 Mcg Inh] 1 PUFF) IH SCH (09:00)
[2018-02-18] MEDS: NICOTINE 21 MG/PAT TD SCH (09:00)
[2018-02-18] MEDS: predniSONE 20 MG TAB PO SCH ×2 (09:00→20:53)
[2018-02-18] MEDS: clonazePAM 0.5 MG TAB PO SCH (09:00)
[2018-02-18] MEDS: ROFLUMILAST 500 MCG TABLET PO SCH (09:00)
[2018-02-18] MEDS: acetaZOLAMIDE 250 MG TAB PO SCH ×2 (09:00→20:52)
--- NOTE | 2018-02-18 10:18 | P.HP ---
Certification for Inpatient Patient admitted to: Observation With expected LOS: <2 Midnights Patient will require the following post-hospital care: None Practitioner: I am a practitioner with admitting privileges, knowledge of patient current condition, hospital course, and medical plan of care. Services: Services provided to patient in accordance with Admission requirements found in Title 42 Section 412.3 of the Code of Federal Regulations Patient History Date of Service: 02/18/18 Primary Care Provider: Mina Reason for admission: Respiratory failure History of Present Illness: Patient is well know to my service. She was following up at Dr. Frost office. Was found to be hypoxia and was sent to the ER. She has a history of severe copd. Has been intubated at least twice in the last year. Was suppose to be on diamox. She is doing better this morning and having her breakfast. Has been seen by Dr. Antonio. Would like to see how she does on her cpap at home. Allergies codeine [Codeine] Adverse Reaction (Mild, Verified 02/18/18 03:03) itch Home Medications: Albuterol Sulfate [Proair Hfa] 8.5 gm IH QID PRN 10/22/15 Atorvastatin Calcium 20 mg PO BEDTIME 10/10/17 Latanoprost Ophth [Xalatan 0.005%*] 1 gtt EACH EYE BEDTIME 10/10/17 Nicotine [Nicoderm*] 1 patch TD DAILY 10/10/17 Roflumilast [Daliresp*] 500 mcg PO DAILY 10/10/17 Umeclidinium Brm/Vilanterol Tr [Anoro Ellipta 62.5-25 Mcg INH] 1 puff IH DAILY 10/10/17 Clonazepam [Klonopin*] 0.5 mg PO DAILY 01/18/18 Levothyroxine [Synthroid*] 112 mcg PO DAILYAC 01/18/18 Albuterol Sulfate [Albuterol Sulfate 0.083% Neb Soln] 2.5 mg IH BID PRN Benzonatate 1 cap PO TID PRN 02/18/18 - Past Medical/Surgical History Has patient received pneumonia vaccine in the past: No Diabetic: No -: Severe COPD, oxygen/steroid dependent,Pulmonary-Dr. Do -: Mild pulmonary hypertension -: Hypothyroidism -: Bipolar disorder -: Hypertension -: Chronic low back pain -: Obstructive sleep apnea -: Tobacco abuse -: Appendectomy -: Psychosocial/ Personal History: She lives with a partner. She has 1 child. She is currently disabled. - Family History Father -: Heart disease, Diabetes Notes: from CHF Mother -: Heart disease, Diabetes Notes: from CHF Brother -: Diabetes Sister -: Heart disease, Diabetes Notes: from CHF - Social History Smoking Status: Former smoker Alcohol use: No CD- Drugs: No Caffeine use: Yes Place of Residence: Home Review of Systems 10-point ROS is otherwise unremarkable Respiratory: Shortness of Breath Physical Examination - Vital Signs Temperature: 98 F Blood Pressure: 112/61 Pulse: 65 Respirations: 20 Pulse Ox (%): 90 - Physical Exam General: Alert, In no apparent distress HEENT: Atraumatic, PERRLA, Mucous membr. moist/pink, EOMI, Sclerae nonicteric Neck: Supple, 2+ carotid pulse no bruit, No LAD, Without JVD or thyroid abnormality Respiratory: Clear to auscultation bilaterally, Diminished Cardiovascular: Regular rate/rhythm, Normal S1 S2 Gastrointestinal: Normal bowel sounds, No tenderness Musculoskeletal: No tenderness Integumentary: No rashes Neurological: Normal gait, Normal speech, Normal strength at 5/5 x4 extr, Normal tone, Normal affect Lymphatics: No axilla or inguinal lymphadenopathy - Studies Laboratory Data (last 24 hrs) 02/17/18 15:44: PT 11.5, INR 0.97 02/17/18 15:44: WBC 4.8, Hgb 11.7 L, Hct 36.4, Plt Count 232 02/17/18 15:44: B-Natriuretic Peptide 40 02/17/18 15:44: Sodium 140, Potassium 3.9, BUN 10, Creatinine 0.61, Glucose 121 H Assessment and Plan - Problems (Diagnosis) (1) Acute and chronic respiratory failure ([id number]) Onset Date: 03/05/17 Current Visit: No Status: Acute Plan: Patient is doing better. Must make sure she is on diamox when she is discharged. Will have her check her home bipap as per Dr. Antonio. Qualifiers: Respiratory failure complication: hypoxia and hypercapnia Qualified Code(s) : J96.21 - Acute and chronic respiratory failure with hypoxia; J96.22 - Acute and chronic respiratory failure with hypercapnia; J96.22 - Acute and chronic respiratory failure with hypercapnia; J96.22 - Acute and chronic respiratory failure with hypercapnia (2) Tobacco abuse counseling Onset Date: 09/10/17 Current Visit: No Status: Acute Plan: have discussed with the patient. She has been off the cigarettes (3) CHF (congestive heart failure) Onset Date: 05/09/15 Current Visit: No Status: Chronic Plan: Currently stable. No signs of fluid overload. Qualifiers: Heart failure type: diastolic Heart failure chronicity: acute on chronic Qualified Code(s): I50.33 - Acute on chronic diastolic (congestive) heart failure Discharge Plan: Home Plan to discharge in: 24 Hours - Advance Directives Does patient have a Living Will: No Does patient have a Durable POA for Healthcare: No - Code Status/Comfort Care Code Status Assessed: Yes Code Status: Full Code Physician Review: Patient Assessed, Agree with Above Assessment and Plan Critical Care: No Time Spent Managing Pts Care (In Minutes): 40
[2018-02-18] MEDS: ATORVASTATIN 20 MG TAB PO SCH (20:53)
[2018-02-19] MEDS: IPRATROPIUM BROM 0.5MG/2.5ML NEB SCH ×4 (02:00→19:27)
[2018-02-19] MEDS: ALBUTEROL 2.5 MG/3 ML NEB SOL NEB SCH ×4 (02:00→19:28)
[2018-02-19] MEDS: LEVOTHYROXINE SOD 0.112 MG TAB PO SCH (06:47)
--- NOTE | 2018-02-19 08:14 | P.PN ---
Subjective Date of Service: 02/19/18 Primary Care Provider: Mina Chief Complaint: Respiratory failure Subjective: Improving (Patient is improving doing well back to her baseline intolerant to CPAP) Review of Systems No change Physical Examination - Vital Signs Temperature: 97.2 F Blood Pressure: 110/57 Pulse: 61 Respirations: 16 Pulse Ox (%): 99 - Physical Exam General: Alert, Oriented x3 Neck: Supple Respiratory: Clear to auscultation bilaterally, Diminished Assessment & Plan - Problems (Diagnosis) (1) Chronic respiratory failure Current Visit: Yes Status: Acute Plan: Patient is 57 years of age well known to me recurrent hospital admissions admitted with hypoxemia hypercapnia at her baseline she is doing a well intolerant to CPAP failed BIPAP due to elevated bicarbonate. recurrent hospital admissions. Pt has recurrent hospital admissions and needs NIPPV to prevent hospital admissions Qualifiers: Respiratory failure complication: hypoxia and hypercapnia Qualified Code(s) : J96.11 - Chronic respiratory failure with hypoxia; J96.12 - Chronic respiratory failure with hypercapnia Physician Review: Patient Assessed, Agree with Above Assessment and Plan
[2018-02-19 09:03] LABS: BUN Blood Urea Nitrogen 11 mg/dL (6-20); Bicarbonate 34 mEq/L (21-31); Glucose Level 117 mg/dL (65-120); Potassium 4.2 mEq/L (3.6-5.0); Sodium Level 139 mEq/L (135-145)
[2018-02-19] MEDS: clonazePAM 0.5 MG TAB PO SCH (09:21)
[2018-02-19] MEDS: acetaZOLAMIDE 250 MG TAB PO SCH ×2 (09:21→22:01)
[2018-02-19] MEDS: ROFLUMILAST 500 MCG TABLET PO SCH (09:22)
[2018-02-19] MEDS: NICOTINE 21 MG/PAT TD SCH (09:22)
[2018-02-19] MEDS: predniSONE 20 MG TAB PO SCH ×2 (09:22→22:01)
[2018-02-19] MEDS: ATORVASTATIN 20 MG TAB PO SCH (22:01)
[2018-02-20] MEDS: IPRATROPIUM BROM 0.5MG/2.5ML NEB SCH ×4 (01:36→19:34)
[2018-02-20] MEDS: ALBUTEROL 2.5 MG/3 ML NEB SOL NEB SCH ×4 (01:36→19:34)
[2018-02-20] MEDS: LEVOTHYROXINE SOD 0.112 MG TAB PO SCH (05:53)
[2018-02-20] MEDS: ROFLUMILAST 500 MCG TABLET PO SCH (09:03)
[2018-02-20] MEDS: clonazePAM 0.5 MG TAB PO SCH (09:03)
[2018-02-20] MEDS: acetaZOLAMIDE 250 MG TAB PO SCH ×2 (09:03→20:52)
[2018-02-20] MEDS: predniSONE 20 MG TAB PO SCH ×2 (09:03→20:52)
[2018-02-20] MEDS: NICOTINE 21 MG/PAT TD SCH (09:03)
--- NOTE | 2018-02-20 13:21 | P.PN ---
Subjective Date of Service: 02/19/18 Primary Care Provider: Mina Chief Complaint: Respiratory failure Subjective: Improving Review of Systems 10-point ROS is otherwise unremarkable Respiratory: SOB with Excertion Physical Examination - Vital Signs Temperature: 98 F Blood Pressure: 135/72 Pulse: 69 Respirations: 20 Pulse Ox (%): 98 - Physical Exam General: Alert, In no apparent distress HEENT: Atraumatic, PERRLA, EOMI Neck: Supple, JVD not distended Respiratory: Clear to auscultation bilaterally, Diminished Cardiovascular: Regular rate/rhythm, Normal S1 S2 Gastrointestinal: Normal bowel sounds, No tenderness Musculoskeletal: No tenderness Integumentary: No rashes Neurological: Normal speech, Normal tone, Normal affect Lymphatics: No axilla or inguinal lymphadenopathy Assessment & Plan - Problems (Diagnosis) (1) Acute and chronic respiratory failure ([id number]) Onset Date: 03/05/17 Current Visit: No Status: Acute Plan: Patient is doing better. Must make sure she is on diamox when she is discharged. Will have her check her home bipap as per Dr. Antonio. Qualifiers: Respiratory failure complication: hypoxia and hypercapnia Qualified Code(s) : J96.21 - Acute and chronic respiratory failure with hypoxia; J96.22 - Acute and chronic respiratory failure with hypercapnia; J96.22 - Acute and chronic respiratory failure with hypercapnia; J96.22 - Acute and chronic respiratory failure with hypercapnia (2) Tobacco abuse counseling Onset Date: 09/10/17 Current Visit: No Status: Acute Plan: have discussed with the patient. She has been off the cigarettes (3) CHF (congestive heart failure) Onset Date: 05/09/15 Current Visit: No Status: Chronic Plan: Currently stable. No signs of fluid overload. Qualifiers: Heart failure type: diastolic Heart failure chronicity: acute on chronic Qualified Code(s): I50.33 - Acute on chronic diastolic (congestive) heart failure Discharge Plan: Home Plan to discharge in: 24 Hours - Code Status/Comfort Care Code Status Assessed: No Code Status: Full Code Physician Review: Patient Assessed, Agree with Above Assessment and Plan Critical Care: No Time Spent Managing Pts Care (In Minutes): 25
--- NOTE | 2018-02-20 13:23 | P.DS ---
Admission Date: 02/19/18 Discharge Date: 02/20/18 Primary Care Provider: Mina Discharge Condition: GOOD Reason for Admission: Respiratory failure - Problems (1) Acute and chronic respiratory failure ([id number]) Onset Date: 03/05/17 Current Visit: No Status: Acute Qualifiers: Respiratory failure complication: hypoxia and hypercapnia Qualified Code(s) : J96.21 - Acute and chronic respiratory failure with hypoxia; J96.22 - Acute and chronic respiratory failure with hypercapnia; J96.22 - Acute and chronic respiratory failure with hypercapnia; J96.22 - Acute and chronic respiratory failure with hypercapnia (2) Tobacco abuse counseling Onset Date: 09/10/17 Current Visit: No Status: Acute (3) CHF (congestive heart failure) Onset Date: 05/09/15 Current Visit: No Status: Chronic Qualifiers: Heart failure type: diastolic Heart failure chronicity: acute on chronic Qualified Code(s): I50.33 - Acute on chronic diastolic (congestive) heart failure Brief History of Present Illness: Patient is well know to my service. She was following up at Dr. Frost office. Was found to be hypoxia and was sent to the ER. She has a history of severe copd. Has been intubated at least twice in the last year. Was suppose to be on diamox. She is doing better this morning and having her breakfast. Has been seen by Dr. Antonio. Would like to see how she does on her cpap at home. Hospital Course: Patient was admitted and doing well. She was non compliant with her home cpap as the continous pressure was too uncomfortable. We have arranged for a home bipap. This will be easier for her to tolerate. Will discharge her home today Vital Signs/Physical Exam: Temp Pulse Resp BP Pulse Ox 98 F 69 20 135/72 98 02/20/18 13:21 02/20/18 13:21 02/20/18 13:21 02/20/18 13:21 02/20/18 13:21 General: Alert, In no apparent distress HEENT: Atraumatic, PERRLA, EOMI Neck: Supple, JVD not distended Respiratory: Clear to auscultation bilaterally, Diminished Cardiovascular: Regular rate/rhythm, Normal S1 S2 Gastrointestinal: Normal bowel sounds, No tenderness Musculoskeletal: No tenderness Integumentary: No rashes Neurological: Normal speech, Normal tone, Normal affect Lymphatics: No axilla or inguinal lymphadenopathy Laboratory Data at Discharge: WBC 4.8 K/uL (4.3-10.9) 02/17/18 15:44 Hgb 11.7 g/dL (12.0-15.0) L 02/17/18 15:44 Hct 36.4 % (36.0-45.0) 02/17/18 15:44 Plt Count 232 K/uL (152-406) 02/17/18 15:44 PT 11.5 SECONDS (9.5-12.5) 02/17/18 15:44 INR 0.97 02/17/18 15:44 Sodium 139 mEq/L (135-145) 02/19/18 08:30 Potassium 4.2 mEq/L (3.6-5.0) 02/19/18 08:30 BUN 11 mg/dL (6-20) 02/19/18 08:30 Creatinine 0.60 mg/dL (0.44-1.00) 02/19/18 08:30 Glucose 117 mg/dL (65-120) 02/19/18 08:30 Troponin I < 0.03 ng/mL (<0.03) 02/18/18 03:05 B-Natriuretic Peptide 40 pg/ml (<=100) 02/17/18 15:44 Home Medications: Albuterol Sulfate [Proair Hfa] 8.5 gm IH QID PRN 10/22/15 Atorvastatin Calcium 20 mg PO BEDTIME 10/10/17 Latanoprost Ophth [Xalatan 0.005%*] 1 gtt EACH EYE BEDTIME 10/10/17 Nicotine [Nicoderm*] 1 patch TD DAILY 10/10/17 Roflumilast [Daliresp*] 500 mcg PO DAILY 10/10/17 Umeclidinium Brm/Vilanterol Tr [Anoro Ellipta 62.5-25 Mcg INH] 1 puff IH DAILY 10/10/17 Clonazepam [Klonopin*] 0.5 mg PO DAILY 01/18/18 Levothyroxine [Synthroid*] 112 mcg PO DAILYAC 01/18/18 Albuterol Sulfate [Albuterol Sulfate 0.083% Neb Soln] 2.5 mg IH BID PRN Benzonatate 1 cap PO TID PRN 02/18/18 Albuterol Neb [Proventil 0.083% Neb Soln] 2.5 mg NEB Q2H PRN amp 02/19/18 Albuterol Neb [Proventil 0.083% Neb Soln] 2.5 mg NEB [id number] amp 02/19/18 Clonazepam [Klonopin*] 0.5 mg PO DAILY tab 02/19/18 Ipratropium Neb [Atrovent*] 0.5 mg NEB [id number] amp 02/19/18 Levothyroxine [Synthroid*] 0.112 mg PO DAILYAC tab 02/19/18 Prednisone [Prednisone*] 20 mg PO BID tab 02/19/18 Diet: Regular Activity: Ad kristopher Physician Review: Patient Assessed, Agree with Above Assessment and Plan Time spent managing pt's care (in minutes): 30
[2018-02-20] MEDS: ATORVASTATIN 20 MG TAB PO SCH (20:52)
[2018-02-21] MEDS: IPRATROPIUM BROM 0.5MG/2.5ML NEB SCH ×4 (01:22→19:24)
[2018-02-21] MEDS: ALBUTEROL 2.5 MG/3 ML NEB SOL NEB SCH ×4 (01:22→19:24)
[2018-02-21] MEDS: LEVOTHYROXINE SOD 0.112 MG TAB PO SCH (06:11)
[2018-02-21] MEDS: NICOTINE 21 MG/PAT TD SCH (09:17)
[2018-02-21] MEDS: clonazePAM 0.5 MG TAB PO SCH (09:19)
[2018-02-21] MEDS: acetaZOLAMIDE 250 MG TAB PO SCH ×2 (09:19→20:08)
[2018-02-21] MEDS: predniSONE 20 MG TAB PO SCH ×2 (09:19→20:10)
[2018-02-21] MEDS: ROFLUMILAST 500 MCG TABLET PO SCH (09:20)
--- NOTE | 2018-02-21 09:44 | P.PN ---
Subjective Date of Service: 02/21/18 Primary Care Provider: Mina Chief Complaint: Respiratory failure Subjective: No new changes home bipap not delivered Review of Systems 10-point ROS is otherwise unremarkable Respiratory: SOB with Excertion Physical Examination - Vital Signs Temperature: 97.0 F Blood Pressure: 131/63 Pulse: 67 Respirations: 20 Pulse Ox (%): 96 - Physical Exam General: Alert, In no apparent distress HEENT: Atraumatic, PERRLA, EOMI Neck: Supple, JVD not distended Respiratory: Clear to auscultation bilaterally, Diminished Cardiovascular: Regular rate/rhythm, Normal S1 S2 Gastrointestinal: Normal bowel sounds, No tenderness Musculoskeletal: No tenderness Integumentary: No rashes Neurological: Normal speech, Normal tone, Normal affect Lymphatics: No axilla or inguinal lymphadenopathy Assessment & Plan - Problems (Diagnosis) (1) Acute and chronic respiratory failure ([id number]) Onset Date: 03/05/17 Current Visit: No Status: Acute Plan: Patient is doing better. Must make sure she is on diamox when she is discharged. Her bipap was not delivered yesterday. Discharge was held to prevent readmissions. Qualifiers: Respiratory failure complication: hypoxia and hypercapnia Qualified Code(s) : J96.21 - Acute and chronic respiratory failure with hypoxia; J96.22 - Acute and chronic respiratory failure with hypercapnia; J96.22 - Acute and chronic respiratory failure with hypercapnia; J96.22 - Acute and chronic respiratory failure with hypercapnia (2) Tobacco abuse counseling Onset Date: 09/10/17 Current Visit: No Status: Acute Plan: have discussed with the patient. She has been off the cigarettes (3) CHF (congestive heart failure) Onset Date: 05/09/15 Current Visit: No Status: Chronic Plan: Currently stable. No signs of fluid overload. Qualifiers: Heart failure type: diastolic Heart failure chronicity: acute on chronic Qualified Code(s): I50.33 - Acute on chronic diastolic (congestive) heart failure Discharge Plan: Home Plan to discharge in: 24 Hours - Code Status/Comfort Care Code Status Assessed: No Code Status: Full Code Physician Review: Patient Assessed, Agree with Above Assessment and Plan Critical Care: No Time Spent Managing Pts Care (In Minutes): 20
--- NOTE | 2018-02-21 11:24 | P.PN ---
Subjective Date of Service: 02/21/18 Primary Care Provider: Mina Chief Complaint: Respiratory failure Subjective: Improving (Patient is doing well no new complaints awaiting BiPAP) Review of Systems Unremarkable Physical Examination - Vital Signs Temperature: 97.0 F Blood Pressure: 131/63 Pulse: 67 Respirations: 20 Pulse Ox (%): 96 - Physical Exam General: Alert, Oriented x3 Respiratory: Clear to auscultation bilaterally, Diminished Assessment & Plan - Problems (Diagnosis) (1) Chronic respiratory failure Current Visit: Yes Status: Acute Plan: Patient admitted with acute on chronic respiratory failure frequent exacerbations hospitalizations intolerant to CPAP I have ordered a BiPAP or noninvasive ventilator he has chronic hypoxemic hypercapnic respiratory failure with an elevated bicarbonate despite being on BiPAP and she has responded been much better to the BiPAP at the hospital appears to be less dyspneic more alert responsive cooperative continue with Diamox at home and resume all her home medications Qualifiers: Respiratory failure complication: hypoxia and hypercapnia Qualified Code(s) : J96.11 - Chronic respiratory failure with hypoxia; J96.12 - Chronic respiratory failure with hypercapnia Physician Review: Patient Assessed, Agree with Above Assessment and Plan
[2018-02-21] MEDS: ATORVASTATIN 20 MG TAB PO SCH (20:09)
[2018-02-22] MEDS: ALBUTEROL 2.5 MG/3 ML NEB SOL NEB SCH ×3 (00:59→13:45)
[2018-02-22] MEDS: IPRATROPIUM BROM 0.5MG/2.5ML NEB SCH ×3 (00:59→13:45)
[2018-02-22 01:36] VITALS: O2SAT 97
[2018-02-22] MEDS: LEVOTHYROXINE SOD 0.112 MG TAB PO SCH (05:30)
[2018-02-22] MEDS: NICOTINE 21 MG/PAT TD SCH (08:53)
[2018-02-22] MEDS: acetaZOLAMIDE 250 MG TAB PO SCH (08:54)
[2018-02-22] MEDS: ROFLUMILAST 500 MCG TABLET PO SCH (08:55)
[2018-02-22] MEDS: clonazePAM 0.5 MG TAB PO SCH (08:55)
[2018-02-22] MEDS: predniSONE 20 MG TAB PO SCH (08:55)
[2018-02-22 10:16] VITALS: TEMP 97.2
[2018-02-22 12:13] VITALS: BP 144/72
--- NOTE | 2018-02-22 12:44 | P.PN ---
Subjective Date of Service: 02/22/18 Primary Care Provider: Mina Chief Complaint: Respiratory failure Patient says she spoke to her bipap company on the phone Said they will deliver to the hospital today. If this happens she can go home today Review of Systems 10-point ROS is otherwise unremarkable Respiratory: SOB with Excertion Physical Examination - Vital Signs Temperature: 97.2 F Blood Pressure: 144/72 Pulse: 84 Respirations: 20 Pulse Ox (%): 88 - Physical Exam General: Alert, In no apparent distress HEENT: Atraumatic, PERRLA, EOMI Neck: Supple, JVD not distended Respiratory: Clear to auscultation bilaterally, Diminished Cardiovascular: Regular rate/rhythm, Normal S1 S2 Gastrointestinal: Normal bowel sounds, No tenderness Musculoskeletal: No tenderness Integumentary: No rashes Neurological: Normal speech, Normal tone, Normal affect Lymphatics: No axilla or inguinal lymphadenopathy Assessment & Plan - Problems (Diagnosis) (1) Acute and chronic respiratory failure ([id number]) Onset Date: 03/05/17 Current Visit: No Status: Acute Plan: Patient is doing better. Must make sure she is on diamox when she is discharged. Her bipap was not delivered yesterday. Discharge was held to prevent readmissions. Qualifiers: Respiratory failure complication: hypoxia and hypercapnia Qualified Code(s) : J96.21 - Acute and chronic respiratory failure with hypoxia; J96.22 - Acute and chronic respiratory failure with hypercapnia; J96.22 - Acute and chronic respiratory failure with hypercapnia; J96.22 - Acute and chronic respiratory failure with hypercapnia (2) Tobacco abuse counseling Onset Date: 09/10/17 Current Visit: No Status: Acute Plan: have discussed with the patient. She has been off the cigarettes (3) CHF (congestive heart failure) Onset Date: 05/09/15 Current Visit: No Status: Chronic Plan: Currently stable. No signs of fluid overload. Qualifiers: Heart failure type: diastolic Heart failure chronicity: acute on chronic Qualified Code(s): I50.33 - Acute on chronic diastolic (congestive) heart failure Discharge Plan: Home Plan to discharge in: 24 Hours - Code Status/Comfort Care Code Status Assessed: No Code Status: Full Code Physician Review: Patient Assessed, Agree with Above Assessment and Plan Critical Care: No Time Spent Managing Pts Care (In Minutes): 15
--- NOTE | 2018-02-23 09:54 | P.DS ---
Admission Date: 02/19/18 Discharge Date: 02/23/18 Primary Care Provider: Mina Disposition: ROUTINE DISCHARGE Discharge Condition: GOOD Reason for Admission: Respiratory failure - Problems (1) Acute and chronic respiratory failure (poedg-mr-vpdacio) Onset Date: 03/05/17 Status: Acute Qualifiers: Respiratory failure complication: hypoxia and hypercapnia Qualified Code(s) : J96.21 - Acute and chronic respiratory failure with hypoxia; J96.22 - Acute and chronic respiratory failure with hypercapnia; J96.22 - Acute and chronic respiratory failure with hypercapnia; J96.22 - Acute and chronic respiratory failure with hypercapnia (2) Tobacco abuse counseling Onset Date: 09/10/17 Status: Acute (3) CHF (congestive heart failure) Onset Date: 05/09/15 Status: Chronic Qualifiers: Heart failure type: diastolic Heart failure chronicity: acute on chronic Qualified Code(s): I50.33 - Acute on chronic diastolic (congestive) heart failure Brief History of Present Illness: Patient is well know to my service. She was following up at Dr. Frost office. Was found to be hypoxia and was sent to the ER. She has a history of severe copd. Has been intubated at least twice in the last year. Was suppose to be on diamox. She is doing better this morning and having her breakfast. Has been seen by Dr. Antonio. Would like to see how she does on her cpap at home. Hospital Course: Patient was admitted and doing well. She was non compliant with her home cpap as the continous pressure was too uncomfortable. We have arranged for a home bipap. This will be easier for her to tolerate. Pyreg delivered her bipap on 02/22/18 and she was discharged home Vital Signs/Physical Exam: Temp Pulse Resp BP Pulse Ox 97.2 F 84 20 144/72 H 88 L 02/22/18 12:43 02/22/18 12:43 02/22/18 12:43 02/22/18 12:43 02/22/18 12:43 General: Alert, In no apparent distress HEENT: Atraumatic, PERRLA, EOMI Neck: Supple, JVD not distended Respiratory: Clear to auscultation bilaterally, Diminished Cardiovascular: Regular rate/rhythm, Normal S1 S2 Gastrointestinal: Normal bowel sounds, No tenderness Musculoskeletal: No tenderness Integumentary: No rashes Neurological: Normal speech, Normal tone, Normal affect Lymphatics: No axilla or inguinal lymphadenopathy Laboratory Data at Discharge: WBC 4.8 K/uL (4.3-10.9) 02/17/18 15:44 Hgb 11.7 g/dL (12.0-15.0) L 02/17/18 15:44 Hct 36.4 % (36.0-45.0) 02/17/18 15:44 Plt Count 232 K/uL (152-406) 02/17/18 15:44 PT 11.5 SECONDS (9.5-12.5) 02/17/18 15:44 INR 0.97 02/17/18 15:44 Sodium 139 mEq/L (135-145) 02/19/18 08:30 Potassium 4.2 mEq/L (3.6-5.0) 02/19/18 08:30 BUN 11 mg/dL (6-20) 02/19/18 08:30 Creatinine 0.60 mg/dL (0.44-1.00) 02/19/18 08:30 Glucose 117 mg/dL (65-120) 02/19/18 08:30 Troponin I < 0.03 ng/mL (<0.03) 02/18/18 03:05 B-Natriuretic Peptide 40 pg/ml (<=100) 02/17/18 15:44 Home Medications: RX: Albuterol Sulfate [Proair Hfa] 8.5 gm IH QID PRN 10/22/15 RX: Atorvastatin Calcium 20 mg PO BEDTIME 10/10/17 RX: Latanoprost Ophth [Xalatan 0.005%*] 1 gtt EACH EYE BEDTIME 10/10/17 RX: Nicotine [Nicoderm*] 1 patch TD DAILY 10/10/17 RX: Roflumilast [Daliresp*] 500 mcg PO DAILY 10/10/17 RX: Umeclidinium Brm/Vilanterol Tr [Anoro Ellipta 62.5-25 Mcg INH] 1 puff IH DAILY 10/10/17 RX: Clonazepam [Klonopin*] 0.5 mg PO DAILY 01/18/18 RX: Levothyroxine [Synthroid*] 112 mcg PO DAILYAC 01/18/18 Albuterol Sulfate [Albuterol Sulfate 0.083% Neb Soln] 2.5 mg IH BID PRN RX: Benzonatate 1 cap PO TID PRN 02/18/18 RX: Albuterol Neb [Proventil 0.083% Neb Soln] 2.5 mg NEB Q2H PRN amp 02/19/18 RX: Albuterol Neb [Proventil 0.083% Neb Soln] 2.5 mg NEB [id number] amp 02/19/18 RX: Clonazepam [Klonopin*] 0.5 mg PO DAILY tab 02/19/18 RX: Ipratropium Neb [Atrovent*] 0.5 mg NEB [id number] amp 02/19/18 RX: Levothyroxine [Synthroid*] 0.112 mg PO DAILYAC tab 02/19/18 RX: Prednisone [Prednisone*] 20 mg PO BID tab 02/19/18 RX: Acetazolamide [Diamox*] 125 mg PO BID #180 tab 02/20/18 New Medications: RX: Acetazolamide [Diamox*] 125 mg PO BID #180 tab Diet: Regular Activity: Ad kristopher Followup: Isai Do MD [Primary Care Provider] - 1 Week Chris Enriquez MD [ACTIVE - CAN ADMIT] - 1-2 Weeks Time spent managing pt's care (in minutes): 35
== END 2018-02-22 16:27 | disposition home or self-care (01) | DRG 189 ==
LOC: ER 15:04 → ERHOLD 17:31 → INTOOBSV 17:31 → 2ND 20:05 → OBSVTOIN 02-19 16:14
PROVIDERS: ADMIT Internal Medicine; ATTEND Internal Medicine
DX: J96.22 Acute and chronic respiratory failure with hypercapnia (principal); I50.32 Chronic diastolic (congestive) heart failure; J96.21 Acute and chronic respiratory failure with hypoxia; J44.9 Chronic obstructive pulmonary disease, unspecified; I11.0 Hypertensive heart disease with heart failure; Z91.19 Patient's noncompliance with other medical treatment and regimen; G47.33 Obstructive sleep apnea (adult) (pediatric); Z87.891 Personal history of nicotine dependence; E03.9 Hypothyroidism, unspecified
CPT/HCPCS: 36415; 71045; 80048; 82805; 83880; 84484; 85025; 85610; 93005; 94640; 94660; 94760; 99285; G0378; J2920; J7512

== ENCOUNTER 2018-07-18 10:44 | Emergency (ER) | payer OTHER ==
[2012-05-02 20:04] VITALS: BP 123/64
--- OUTSIDE RECORDS SUMMARY | 2018-07-18 10:46 | XMS REPORT ---
:1960 [facility] Address [facility] [place] [address] Care Team Providers Name Role Phone HESHAM [...] Comments SODIUM (BEAKER) (test 139 meq/L 136-145 swlh=438) POTASSIUM (BEAKER) (test 3.5 meq/L 3.5-5.1 tcdz=090) CHLORIDE (BEAKER) (test 95 meq/L 98-107 mcsy=241) CO2 (BEAKER) (test wkgw=530) 40 meq/L 22-29 BLOOD UREA NITROGEN (BEAKER) 14 mg/dL 7-21 (test lawl=460) CREATININE (BEAKER) (test 0.64 mg/dL 0.57-1.25 simc=562) GLUCOSE RANDOM (BEAKER) 92 mg/dL 70-105 (test ktin=948) CALCIUM (BEAKER) (test 8.4 mg/dL 8.4-10.2 heje=169) EGFR (BEAKER) (test 96 mL/min/1.73 sq m ESTIMATED GFR IS NOT muhb=4679) ACCURATE CREATININE CLEARANCE IN PREDICTING GLOMERULAR FILTRATION RATE. ESTIMATED GFR IS NOT APPLICABLE FOR DIALYSIS PATIENTS. CBC (HEMOGRAM ONLY)2017-02-26 05:21:00 Test Item Value Reference Range Comments WHITE BLOOD CELL COUNT (BEAKER) (test fjmd=775) 6.4 K/ L 4.0-10.0 RED BLOOD CELL COUNT (BEAKER) (test joxw=384) 4.17 M/ L 4.00-5.00 HEMOGLOBIN (BEAKER) (test zcwl=154) 12.0 GM/DL 12.0-15.0 HEMATOCRIT (BEAKER) (test pfog=668) 39.4 % 36.0-45.0 MEAN CORPUSCULAR VOLUME (BEAKER) (test mkir=408) 94.4 fL 82.0-99.0 MEAN CORPUSCULAR HEMOGLOBIN (BEAKER) (test 28.8 pg 27.0-33.0 smct=637) MEAN CORPUSCULAR HEMOGLOBIN CONC (BEAKER) (test 30.5 GM/DL 32.0-36.0 qjzs=184) RED CELL DISTRIBUTION WIDTH (BEAKER) (test 13.1 % 10.3-14.2 cbpu=231) PLATELET COUNT (BEAKER) (test pmvo=349) 137 K/CU MM 150-430 MEAN PLATELET VOLUME (BEAKER) (test bhlo=204) 7.2 fL 6.5-10.5 NUCLEATED RED BLOOD CELLS (BEAKER) (test 0 /100 WBC 0-0 lpef=943) 0.00POCT-GLUCOSE [id number] 17:50:00 Test Item Value Reference Range Comments POC-GLUCOSE METER (BEAKER) 118 mg/dL 70-110 TESTED AT [address] (test nyuo=9548) [place] [address] POCT-GLUCOSE [id number] 11:59:00 Test Item Value Reference Range Comments POC-GLUCOSE METER (BEAKER) 247 mg/dL 70-110 TESTED AT [address] (test blzf=2924) [place] [id number] POCT-GLUCOSE [id number] 07:54:00 Test Item Value Reference Range Comments POC-GLUCOSE METER (BEAKER) 141 mg/dL 70-110 TESTED AT [address] (test qsmf=7487) [place] [id number] CBC W/PLT COUNT & AUTO [id number] 03:45:00 Test Item Value Reference Range Comments WHITE BLOOD CELL COUNT (BEAKER) (test gtmj=110) 4.9 K/ L 4.0-10.0 RED BLOOD CELL COUNT (BEAKER) (test pcvx=120) 4.03 M/ L 4.00-5.00 HEMOGLOBIN (BEAKER) (test iygu=825) 12.2 GM/DL 12.0-15.0 HEMATOCRIT (BEAKER) (test rywn=910) 37.3 % 36.0-45.0 MEAN CORPUSCULAR VOLUME (BEAKER) (test nrqb=373) 92.5 fL 82.0-99.0 MEAN CORPUSCULAR HEMOGLOBIN (BEAKER) (test 30.3 pg 27.0-33.0 yuvd=241) MEAN CORPUSCULAR HEMOGLOBIN CONC (BEAKER) (test 32.8 GM/DL 32.0-36.0 zhkm=270) RED CELL DISTRIBUTION WIDTH (BEAKER) (test 14.3 % 10.3-14.2 umcj=389) PLATELET COUNT (BEAKER) (test jfml=768) 122 K/CU MM 150-430 MEAN PLATELET VOLUME (BEAKER) (test vfou=136) 8.0 fL 6.5-10.5 NUCLEATED RED BLOOD CELLS (BEAKER) (test 0 /100 WBC 0-0 ysxe=101) NEUTROPHILS RELATIVE PERCENT (BEAKER) (test 88 % xezy=797) LYMPHOCYTES RELATIVE PERCENT (BEAKER) (test 10 % qajo=494) MONOCYTES RELATIVE PERCENT (BEAKER) (test 2 % gjor=042) EOSINOPHILS RELATIVE PERCENT (BEAKER) (test 0 % jfxj=683) BASOPHILS RELATIVE PERCENT (BEAKER) (test 0 % ncyi=976) NEUTROPHILS ABSOLUTE COUNT (BEAKER) (test 4.32 K/ L 1.80-8.00 losh=307) LYMPHOCYTES ABSOLUTE COUNT (BEAKER) (test 0.49 K/ L 1.48-4.50 lckk=557) MONOCYTES ABSOLUTE COUNT (BEAKER) (test 0.09 K/ L 0.00-1.30 ezoo=313) EOSINOPHILS ABSOLUTE COUNT (BEAKER) (test 0.02 K/ L 0.00-0.50 nbno=743) BASOPHILS ABSOLUTE COUNT (BEAKER) (test 0.01 K/ L 0.00-0.20 meic=361) [id number] 03:29:00 Test Item Value Reference Range Comments MAGNESIUM (BEAKER) (test 1.8 mg/dL 1.6-2.6 Specimen slightly hemolyzed xlrz=791) BASIC METABOLIC [id number] 03:29:00 Test Item Value Reference Range Comments SODIUM (BEAKER) (test 139 meq/L 136-145 vmkp=627) POTASSIUM (BEAKER) (test 4.4 meq/L 3.5-5.1 Specimen slightly jhkt=138) hemolyzed CHLORIDE (BEAKER) (test 93 meq/L 98-107 afms=895) CO2 (BEAKER) (test 39 meq/L 22-29 yfvp=409) BLOOD UREA NITROGEN 15 mg/dL 7-21 (BEAKER) (test gldx=693) CREATININE (BEAKER) (test 0.67 mg/dL 0.57-1.25 Specimen slightly dnok=264) hemolyzed GLUCOSE RANDOM (BEAKER) 150 mg/dL 70-105 (test odao=644) CALCIUM (BEAKER) (test 8.6 mg/dL 8.4-10.2 tphq=881) EGFR (BEAKER) (test 91 mL/min/1.73 sq m ESTIMATED GFR IS NOT yoyk=3420) ACCURATE CREATININE CLEARANCE IN PREDICTING GLOMERULAR FILTRATION RATE. ESTIMATED GFR IS NOT APPLICABLE FOR DIALYSIS PATIENTS. POCT-GLUCOSE [id number] 00:05:00 Test Item Value Reference Range Comments POC-GLUCOSE METER (BEAKER) 117 mg/dL 70-110 TESTED AT [address] (test sdzu=1172) [facility] [address] POCT-GLUCOSE [id number] 18:17:00 Test Item Value Reference Range Comments POC-GLUCOSE METER (BEAKER) 141 mg/dL 70-110 TESTED AT [address] (test syok=8323) [place] [id number] CREATINE KINASE (CK), TOTAL AND [id number] 15:43:00 Test Item Value Reference Range Comments CREATINE KINASE TOTAL (BEAKER) (test thkk=481) 31 U/L 29-200 CREATINE KINASE-MB (BEAKER) (test hazv=579) 1.3 ng/mL 0.0-6.6 CREATINE KINASE-MB INDEX (BEAKER) (test cold=494) 4.2 % Effective 08/09/2014: CK-MB Reference Range ChangeNew: 0.0-6.6 Previous: 0.0- 4.9CK-MB Reference Range:<6.7 Normal6.7-10.0 Borderline>10.0 AbnormalBLOOD GAS, [id number] 15:26:00 Test Item Value Reference Range Comments PH ARTERIAL (BEAKER) (test jqeg=955) 7.41 7.35-7.45 PCO2 ARTERIAL (BEAKER) (test xxfz=827) 68 mmHg 35-45 PO2 ARTERIAL (BEAKER) (test ooio=773) 67 mmHg 80-90 O2 SATURATION ARTERIAL (BEAKER) (test ppbd=096) 92.2 % 96.0-97.0 HCO3 ARTERIAL (BEAKER) (test whsb=204) 42 mmol/L 21-29 BASE EXCESS ARTERIAL (BEAKER) (test jlax=493) 14.8 mmol/L -2.0-3.0 PATIENT TEMPERATURE (BEAKER) (test fmjz=5703) 37.5 C FIO2 (BEAKER) (test fnkn=8808) 35.0 % POCT-GLUCOSE [id number] 11:45:00 Test Item Value Reference Range Comments POC-GLUCOSE METER (BEAKER) 122 mg/dL 70-110 TESTED AT [facility] [address] [facility] (test asyn=7240) [facility] [address] CREATINE KINASE (CK), TOTAL AND [id number] 10:29:00 Test Item Value Reference Range Comments CREATINE KINASE TOTAL (BEAKER) (test wsca=541) 31 U/L 29-200 CREATINE KINASE-MB (BEAKER) (test wmyg=759) 1.5 ng/mL 0.0-6.6 CREATINE KINASE-MB INDEX (BEAKER) (test feol=993) 4.8 % Effective 08/09/2014: CK-MB Reference Range ChangeNew: 0.0-6.6 Previous: 0.0- 4.9CK-MB Reference Range:<6.7 Normal6.7-10.0 Borderline>10.0 AbnormalTROPONIN [id number] 10:29:00 Test Item Value Reference Range Comments TROPONIN I (BEAKER) (test fsuh=646) < ng/mL 0.00-0.03 Effective 08/09/2014: Reference Range [...] renalfailure, acidosis, acute neurological disease, and persistent tachyarrhythmia.[id number] 10:22:00 Test Item Value Reference Range Comments PARTIAL THROMBOPLASTIN TIME (BEAKER) (test 22.5 seconds 22.5-36.0 twif=820) PROTHROMBIN TIME/[id number] 10:21:00 Test Item Value Reference Range Comments PROTIME (BEAKER) (test xgyz=876) 12.4 seconds 11.7-14.7 INR (BEAKER) (test jvme=711) 0.9 <=5.9 RECOMMENDED COUMADIN/WARFARIN INR THERAPY RANGESSTANDARD DOSE: 2.0 - 3.0 Includes: PROPHYLAXIS forvenous thrombosis, systemic embolization; TREATMENT for venous thrombosis and/or pulmonary embolus.HIGH RISK: Target INR is 2.5-3.5 for patients with mechanical heart valves.BLOOD GAS, [id number] 10:17:00 Test Item Value Reference Range Comments PH ARTERIAL (BEAKER) (test hnbn=258) 7.42 7.35-7.45 PCO2 ARTERIAL (BEAKER) (test ypvi=062) 63 mmHg 35-45 PO2 ARTERIAL (BEAKER) (test phlh=767) 51 mmHg 80-90 O2 SATURATION ARTERIAL (BEAKER) (test ackz=769) 85.7 % 96.0-97.0 HCO3 ARTERIAL (BEAKER) (test qgvo=267) 40 mmol/L 21-29 BASE EXCESS ARTERIAL (BEAKER) (test utvr=438) 12.7 mmol/L -2.0-3.0 PATIENT TEMPERATURE (BEAKER) (test xutx=9649) 37.0 C FIO2 (BEAKER) (test rchy=9049) 40.0 % PLATELET [id number] 10:13:00 Test Item Value Reference Range Comments PLATELET COUNT (BEAKER) (test fqgx=754) 111 K/CU MM 150-430
--- OUTSIDE RECORDS SUMMARY | 2018-07-18 10:46 | XMS REPORT | Clinical Summary ---
:1960 Author Organization [facility] Address [address] [place] [address] Care Team Providers Name Role Phone Unavailable Primary Care Provider Unavailable Allergies No Known Allergies Medications Medication Sig Dispensed Refills Start Date End Date Status predniSONE [...] (0.25 mg 60 mL 0 02/26/2017 02/26/2018 (PULMICORT) 0.25 total) by mg/2 mL nebulizer nebulization 2 solution (two) times daily. Active Problems Problem Noted Date Tobacco abuse 02/25/2017 Hypoxemia 02/25/2017 COPD exacerbation 02/24/2017 Acute hypercapnic respiratory failure 02/24/2017 Social History Tobacco Use Types Packs/Day Years Used Date Never Assessed Sex Assigned at Date Recorded Not on file Job Start Date Occupation Industry Not on file Not on file Not on file Travel History Travel Start Travel End No recent travel history available. Last Filed Vital Signs Not on file Plan of Treatment Not on file Results Not on fileafter 07/17/2017 Insurance Payer Benefit Plan / Subscriber ID Type Phone Address Group MEDICAID - MEDICAID [facility] STAR xxxxxxxxx Medicaid Contracted MGD CARE PLAN Advance Directives For more information, please contact:[facility] [place], [place] [phone] Code Status Date Activated Date Inactivated Comments Full Code 02/24/2017 8:19 AM 02/26/2017 1:59 PM This code status was determined by: Patient
--- NOTE | 2018-07-18 12:12 | RAD REPORT ---
EXAM DESCRIPTION: CT - Stone Protocol - 07/18/2018 11:51 am CLINICAL HISTORY: Abdominal pain. Right flank pain COMPARISON: None. TECHNIQUE: Computed axial tomography of the abdomen pelvis was obtained without oral or IV contrast. Lack of IV and oral contrast limits evaluation of solid organs, bowel, and vessels. Coronal reformat sarah images were obtained and reviewed. All CT scans are performed using dose optimization technique as appropriate and may include automated exposure control or mA/KV adjustment according to patient size. FINDINGS: A renal calculus is not seen. An ureteral calculus is not noted. A bladder calculus is not present. The liver, spleen, pancreas and adrenals appear grossly normal There is no evidence of diverticulitis. The appendix is not clearly seen Small bilateral hernias contain fat. Umbilical hernia is present. The neck measures 3 centimeters. An adnexal mass is not noted . Small calcification is present in the gallbladder wall IMPRESSION: Negative for a genitourinary calculus
--- NOTE | 2018-07-18 12:14 | RAD REPORT ---
EXAM DESCRIPTION: Nel Single View07/18/2018 11:54 am CLINICAL HISTORY: sob COMPARISON: none FINDINGS: The lungs appear clear of acute infiltrate. The heart is normal size IMPRESSION: No acute abnormalities displayed
[2018-07-18] MEDS ORDERED: KETOROLAC 30 MG/ML INJ ONE (12:26)
[2018-07-18] MEDS ORDERED: DIAZEPAM 10 MG/2 ML INJ SYRINGE ONE (13:18)
[2018-07-18 13:30] LABS: Absolute Lymphocytes (CBC) 2.2 K/uL (0.7-4.9); Absolute Monocytes 0.6 K/uL (0.1-1.3); Absolute Neutrophil 4.3 K/uL (1.8-8.0); Basophils % 0.5 % (0-1.3); Eosinophils % 4.7 % (0-4.4); Hematocrit 38.1 % (36.0-45.0); Lymphocytes % 29.8 % (15.3-44.8); MCH 28.1 pg (27.0-35.0); MCV 84.2 fL (80-100); MPV 7.6 fL (7.6-11.3); Monocytes % 7.9 % (3.3-12.3); Protime INR 0.97; RBC Red Blood Cell Count 4.53 M/uL (3.86-4.86)
[2018-07-18 13:35] LABS: ALT/SGPT 23 U/L (12-78); AST/SGOT 13 U/L (15-37); Albumin 3.5 g/dL (3.4-5.0); Alkaline Phosphatase 120 U/L (45-117); BUN Blood Urea Nitrogen 11 mg/dL (7-18); Bicarbonate 34 mmol/L (21-32); Bilirubin Direct < 0.1 mg/dL (0-0.2); Bilirubin Total 0.5 mg/dL (0.2-1.0); Glucose Level 105 mg/dL (74-106); Magnesium 2.2 mg/dL (1.8-2.4); NT PRO-BNP 27 pg/mL (<125); Potassium 3.9 mmol/L (3.5-5.1); Protein, Total 6.7 g/dL (6.4-8.2); Sodium Level 143 mmol/L (136-145); Troponin (Emerg Dept Use Only) < 0.02 ng/mL (0.0-0.045)
--- NOTE | 2018-07-18 15:12 | ER ---
Nurse's Notes [facility] Name: Vikki Zamudio Age: 57 yrs Sex: Female : 1960 Arrival Date: 07/18/2018 Time: 10:49 Bed 13 Private MD: Diagnosis: Strain of muscle and tendon of back wall of thorax Presentation: 07/18 10:50 Presenting complaint: Patient states: right middle back pain. Pt reports having MRI aa5 scheduled for Friday07/20/18. Transition of care: patient was not received from another setting of care. Onset of symptoms was June 2018. Risk Assessment: Do you want to hurt yourself or someone else? Patient reports no desire to harm self or others. Initial Sepsis Screen: Does the patient meet any 2 criteria? No. Patient's initial sepsis screen is negative. Does the patient have a suspected source of infection? No. Patient's initial sepsis screen is negative. Care prior to arrival: None. 10:50 Method Of Arrival: EMS: [facility] aa5 10:50 Acuity: LIZETH 3 aa5 Historical: - Allergies: 10:50 Codeine; aa5 - PMHx: 10:50 CHF; COPD; GERD; High Cholesterol; Hypertension; Hypothyroidism; Panic Attacks; Sleep aa5 Apnea; - Immunization history:: Flu vaccine is not up to date. - Social history:: Smoking status: Patient/guardian denies using tobacco. - Ebola Screening: : No symptoms or risks identified at this time. Screenin:30 Abuse screen: Denies threats or abuse. Nutritional screening: No deficits noted. em Tuberculosis screening: No symptoms or risk factors identified. Fall Risk None identified. Assessment: 11:33 General: Appears in no apparent distress. uncomfortable, Behavior is calm, cooperative, em Denies fever. Pain: Complains of pain in right flank Pain currently is 10 out of 10 on a pain scale. Neuro: Level of Consciousness is awake, alert, obeys commands, Oriented to person, place, time, situation. Cardiovascular: Denies chest pain, Heart tones S1 S2 present Capillary refill < 3 seconds Patient's skin is warm and dry. Respiratory: Airway is patent Respiratory effort is even, unlabored, Respiratory pattern is regular, symmetrical, pt lives on 2 L per NC at home, hx of COPD. GI: Abdomen is round non-distended, Patient currently denies nausea, vomiting. : No signs and/or symptoms were reported regarding the genitourinary system. EENT: No signs and/or symptoms were reported regarding the EENT system. Derm: Skin is intact, Skin is pink, warm \T\ dry. Musculoskeletal: Range of motion: intact in all extremities. 11:33 Reassessment: I agree with assessment completed by Gonzales French LVN . aa5 13:34 Reassessment: Patient appears in no apparent distress at this time. Patient and/or em family updated on plan of care and expected duration. Pain level reassessed. Patient is alert, oriented x 3, equal unlabored respirations, skin warm/dry/pink. rates pain 6/10 Patient states feeling better. Patient states symptoms have improved. 14:30 Reassessment: Patient appears in no apparent distress at this time. Patient and/or em family updated on plan of care and expected duration. Pain level reassessed. Patient is alert, oriented x 3, equal unlabored respirations, skin warm/dry/pink. assisted pt to bedside commode to obtain UA, pt tolerated well Patient states feeling better. 15:27 Reassessment: Patient appears in no apparent distress at this time. Patient and/or em family updated on plan of care and expected duration. Pain level reassessed. Patient is alert, oriented x 3, equal unlabored respirations, skin warm/dry/pink. Patient states feeling better. Patient states symptoms have improved. Vital Signs: 10:50 aa5 10:58 BP 146 / 94; Pulse 47; Resp 22; Temp 98.4(O); Pulse Ox 100% on 2 lpm NC; mh5 12:30 BP 130 / 79; Pulse 84; Resp 21; Pulse Ox 99% on 2 lpm NC; Pain 10/10; em 13:35 BP 109 / 57; Pulse 86; Resp 16; Pulse Ox 100% on R/A; Pain 6/10; em 14:30 BP 124 / 73; Pulse 81; Resp 19; Pulse Ox 99% on R/A; em 15:26 BP 112 / 61; Pulse 87; Resp 22; Pulse Ox 98% on 2 lpm NC; em 10:50 Pt refusing VS at this time aa5 ED Course: 10:49 Patient arrived in ED. aa5 10:49 Arm band placed on. aa5 10:55 Triage completed. aa5 10:58 Patient has correct armband on for positive identification. Placed in gown. Bed in low mh5 position. Call light in reach. Side rails up X2. Warm blanket given. Pulse ox on. NIBP on. 11:02 Gonzales French LVN is Primary Nurse. em 11:02 Deandre Lozoya PA is PHCP. [facility] 11:02 Warner Pickens MD is Attending Physician. [facility] 11:50 CT completed. Patient moved to CT via stretcher. Patient moved back from CT. cw1 11:52 CT Stone Protocol In Process Unspecified. EDMS 11:54 XRAY Chest (1 view) In Process Unspecified. EDMS 13:00 Initial lab(s) drawn, by me, sent to lab. Inserted saline lock: 22 gauge in right em antecubital area, using aseptic technique. Blood collected. 13:23 EKG done, by ED staff, reviewed by Deandre LIMON. [facility] 14:52 Urine collected: clean catch specimen, cloudy. em 15:10 Chris Enriquez MD is Referral Physician. [facility] 15:25 IV discontinued, intact, bleeding controlled, No redness/swelling at site. Pressure em dressing applied. 15:25 No provider procedures requiring assistance completed. em Administered Medications: 13:09 Drug: Ketorolac 30 mg Route: IVP; Site: right antecubital; aa5 13:20 Follow up: Response: No adverse reaction; Temperature is decreased em 13:10 Drug: Valium 2 mg Route: IVP; Site: right antecubital; aa5 13:41 Follow up: Response: No adverse reaction; Pain is decreased em Outcome: 15:11 Discharge ordered by . [facility] 15:39 Discharged to home ambulatory. em 15:39 Condition: good 15:39 Discharge instructions given to patient, Instructed on discharge instructions, follow up and referral plans. medication usage, Demonstrated understanding of instructions, follow-up care, medications, Prescriptions given X 2. 15:40 Patient left the ED. em Signatures: Dispatcher [employer] EDNH Deandre Lozoya PA PA [facility] Gonzales French LVN [employer] MARK[employer] em Mackenzie Delgado, DULCE RN aa5 Jessica Mendoza 1 Rowan Alba 5 Corrections: (The following items were deleted from the chart) 13:35 12:30 BP 130 / 79; Pulse 84bpm; Resp 21bpm; Pulse Ox 99% RA; Pain 07/01; em em
--- NOTE | 2018-07-18 15:12 | EDPHYS ---
Physician Documentation [facility] Name: Vikki Zamudio Age: 57 yrs Sex: Female : 1960 Arrival Date: 07/18/2018 Time: 10:49 Bed 13 Private MD: ED Physician Warner Pickens HPI: 07/18 11:09 This 57 yrs old Female presents to ER via EMS with complaints of Back Pain. jmm 11:09 The patient presents with pain that is acute, with no known mechanism of injury. The jmm symptoms are located in the right flank. Onset: The symptoms/episode began/occurred acutely, this morning. The pain does not radiate. Associated signs and symptoms: Pertinent negatives: fever, vomiting. This is a 57 year old female with a history of chf, copd, GERD that presents to the ED with right midback pain beginning earlier today. Patient states she was sitting down. Denies vomiting. Patient states she is scheduled for mri due to chronic back pain. . Historical: - Allergies: 10:50 Codeine; aa5 - PMHx: 10:50 CHF; COPD; GERD; High Cholesterol; Hypertension; Hypothyroidism; Panic Attacks; Sleep aa5 Apnea; - Immunization history:: Flu vaccine is not up to date. - Social history:: Smoking status: Patient/guardian denies using tobacco. - Ebola Screening: : No symptoms or risks identified at this time. ROS: 11:09 Constitutional: Negative for fever, chills, and weight loss, Cardiovascular: Negative jmm for chest pain, palpitations, and edema, Respiratory: Negative for shortness of breath, cough, wheezing, and pleuritic chest pain, Abdomen/GI: Negative for abdominal pain, nausea, vomiting, diarrhea, and constipation. 11:09 Back: Positive for pain at rest, pain with movement. 11:09 All other systems are negative. Exam: 11:09 Head/Face: atraumatic. Chest/axilla: Normal chest wall appearance and motion. jmm Cardiovascular: Regular rate and rhythm. No edema appreciated Respiratory: Normal respirations, no respiratory distress appreciated 11:09 Constitutional: The patient appears in no acute distress, alert, awake. 11:09 Back: CVA tenderness, that is moderate, is noted on the right, vertebral tenderness, is not appreciated, right paraspinal back pain on palpation. 11:09 Neuro: Orientation: is normal, Mentation: is normal, Memory: is normal. 11:09 Psych: Behavior/mood is pleasant, cooperative. 11:09 Musculoskeletal/extremity: ROM: intact in all extremities. [facility] 11:09 Skin: Appearance: Color: normal in color. [facility] Vital Signs: 10:50 aa5 10:58 BP 146 / 94; Pulse 47; Resp 22; Temp 98.4(O); Pulse Ox 100% on 2 lpm NC; mh5 12:30 BP 130 / 79; Pulse 84; Resp 21; Pulse Ox 99% on 2 lpm NC; Pain 10/10; em 13:35 BP 109 / 57; Pulse 86; Resp 16; Pulse Ox 100% on R/A; Pain 6/10; em 14:30 BP 124 / 73; Pulse 81; Resp 19; Pulse Ox 99% on R/A; em 15:26 BP 112 / 61; Pulse 87; Resp 22; Pulse Ox 98% on 2 lpm NC; em 10:50 Pt refusing VS at this time [facility] MDM: 11:09 Patient medically screened. [facility] 15:08 Data reviewed: vital signs, nurses notes. Counseling: I had a detailed discussion with [facility] the patient and/or guardian regarding: the historical points, exam findings, and any diagnostic results supporting the discharge/admit diagnosis, lab results, radiology results, the need for outpatient follow up, to return to the emergency department if symptoms worsen or persist or if there are any questions or concerns that arise at home. ED course: Patient's pain is relieved in the ED. Symptoms appear mostly musculoskeletal. Patient has point tender at the right costophrenic angle. . ED course: Patient is normotensive. I do not currently suspect dissection. . 07/18 11:10 Order name: Basic Metabolic Panel; Complete Time: 13:38 [facility] 07/18 11:10 Order name: CBC with Diff; Complete Time: 13:38 [facility] 07/18 11:10 Order name: LFT's; Complete Time: 13:38 [facility] 07/18 11:10 Order name: Magnesium; Complete Time: 13:38 [facility] 07/18 11:10 Order name: NT PRO-BNP; Complete Time: 13:38 [facility] 07/18 11:10 Order name: PT-INR; Complete Time: 13:42 [facility] 07/18 11:10 Order name: Troponin (emerg Dept Use Only); Complete Time: 13:38 [facility] 07/18 11:10 Order name: XRAY Chest (1 view); Complete Time: 12:21 [facility] 07/18 11:10 Order name: EKG; Complete Time: 11:13 [facility] 07/18 11:10 Order name: Cardiac monitoring; Complete Time: 11:42 [facility] 07/18 11:10 Order name: EKG - Nurse/Tech; Complete Time: 13:18 [facility] 07/18 11:10 Order name: CT Stone Protocol; Complete Time: 12:21 [facility] 07/18 11:10 Order name: IV Saline Lock; Complete Time: 13:18 [facility] 07/18 11:10 Order name: Labs collected and sent; Complete Time: 11:42 [facility] 07/18 11:10 Order name: O2 Per Protocol; Complete Time: 11:41 [facility] 07/18 11:10 Order name: O2 Sat Monitoring; Complete Time: 11:41 [facility] 07/18 11:10 Order name: Urine Dipstick-Ancillary (obtain specimen); Complete Time: 14:52 jmm Administered Medications: 13:09 Drug: Ketorolac 30 mg Route: IVP; Site: right antecubital; aa5 13:20 Follow up: Response: No adverse reaction; Temperature is decreased em 13:10 Drug: Valium 2 mg Route: IVP; Site: right antecubital; aa5 13:41 Follow up: Response: No adverse reaction; Pain is decreased em Disposition: 17:57 Co-signature as Attending Physician, Warner Pickens MD. Disposition: 07/18/18 15:11 Discharged to Home. Impression: Strain of muscle and tendon of back wall of thorax. - Condition is Stable. - Discharge Instructions: Thoracic Strain. - Prescriptions for Ibuprofen 800 mg Oral Tablet - take 1 tablet by ORAL route every 8 hours As needed take with food; 30 tablet. orphenadrine citrate 100 mg Oral Tablet Sustained Release - take 1 tablet by ORAL route 2 times per day As needed; 20 tablet. - Medication Reconciliation Form, Thank You Letter, Antibiotic Education, Prescription Opioid Use form. - Follow up: Chris Enriquez MD; When: 2 - 3 days; Reason: Recheck today's complaints, Continuance of care, Re-evaluation by your physician. Signatures: Dispatcher [employer] EDMS Deandre Lozoya PA PA jmm Gonzales French, GASOLINE POWER SHOVEL OPERATOR GASOLINE POWER SHOVEL OPERATOR em Mackenzie Delgado, RN RN aa5 Warner Pickens MD MD gs Corrections: (The following items were deleted from the chart) 15:40 15:11 07/18/2018 15:11 Discharged to Home. Impression: Strain of muscle and tendon of em back wall of thorax. Condition is Stable. Forms are Medication Reconciliation Form, Thank You Letter, Antibiotic Education, Prescription Opioid Use. Follow up: Chris Enriquez; When: 2 - 3 days; Reason: Recheck today's complaints, Continuance of care, Re-evaluation by your physician. [facility] 20:58 11:09 Back: CVA tenderness, that is moderate, is noted on the right, vertebral jmm tenderness, is not appreciated, right paraspinal back pain on palpation, jmm
[2018-07-18 20:23] LABS: Urine Blood NEGATIVE (NEG); Urine Glucose NEGATIVE (NEG); Urine Protein NEGATIVE (NEG); Urine pH 5.5 (5.0-7.0)
--- NOTE | 2018-07-19 19:16 | EKG ---
Test Date: 2018-07-18 Test Time: 13:16:46 Strategy Execution Consultant: SLIM MEASUREMENT RESULTS: Intervals: Rate: 83 WI: 208 QRSD: 86 QT: 374 QTc: 439 [place]: P: 71 WI: 208 QRS: 72 T: 78 INTERPRETIVE STATEMENTS: Normal sinus rhythm with sinus arrhythmia Normal ECG Compared to ECG 02/17/2018 15:13:54 Right-axis deviation no longer present Electronically Signed On 07-19-18 19:14:50 CDT by Selvin Mar
== END 2018-07-18 15:40 | disposition home or self-care (01) ==
LOC: ER 10:44
DX: S29.012A Strain of muscle and tendon of back wall of thorax, initial encounter (principal); I10 Essential (primary) hypertension; Z88.5 Allergy status to narcotic agent
CPT/HCPCS: 36415; 71045; 74176; 76377; 80048; 80076; 81003; 83735; 83880; 84484; 85025; 85610; 93005; 96374; 96375; 99285; J3360

== ENCOUNTER 2018-10-14 08:17 | Day surgery (SDC) | payer OTHER ==
--- OUTSIDE RECORDS SUMMARY | 2018-10-14 08:18 | XMS REPORT | Clinical Summary ---
:1960 [address] [facility] Address [address] [place] [address] Care Team Providers Name Role Phone Unavailable [...] Not on file Results Not on fileafter 10/13/2017 Insurance Payer Benefit Plan / Subscriber ID Type Phone Address Group MEDICAID - MEDICAID [facility] xxxxxxxxx Medicaid Contracted [facility] CARE PLAN Advance Directives For more information, please contact:[facility] [facility] [place], [place] [phone] Code Status Date Activated Date Inactivated Comments Full Code 02/24/2017 8:19 AM 02/26/2017 1:59 PM This code status was determined by: Patient
--- OUTSIDE RECORDS SUMMARY | 2018-10-14 08:19 | XMS REPORT ---
:1960 Author [facility] Address [facility] [place] [address] Care Team Providers Name Role Phone HESHAM [...] Comments SODIUM (BEAKER) (test 139 meq/L 136-145 lpze=193) POTASSIUM (BEAKER) (test 3.5 meq/L 3.5-5.1 kkbf=254) CHLORIDE (BEAKER) (test 95 meq/L 98-107 ztyi=474) CO2 (BEAKER) (test ltqg=614) 40 meq/L 22-29 BLOOD UREA NITROGEN (BEAKER) 14 mg/dL 7-21 (test nzpk=972) CREATININE (BEAKER) (test 0.64 mg/dL 0.57-1.25 gnkr=416) GLUCOSE RANDOM (BEAKER) 92 mg/dL 70-105 (test ywrg=566) CALCIUM (BEAKER) (test 8.4 mg/dL 8.4-10.2 kgpc=477) EGFR (BEAKER) (test 96 mL/min/1.73 sq m ESTIMATED GFR IS NOT vtif=8494) ACCURATE CREATININE CLEARANCE IN PREDICTING GLOMERULAR FILTRATION RATE. ESTIMATED GFR IS NOT APPLICABLE FOR DIALYSIS PATIENTS. CBC (HEMOGRAM ONLY)2017-02-26 05:21:00 Test Item Value Reference Range Comments WHITE BLOOD CELL COUNT (BEAKER) (test nzpb=139) 6.4 K/ L 4.0-10.0 RED BLOOD CELL COUNT (BEAKER) (test oupc=377) 4.17 M/ L 4.00-5.00 HEMOGLOBIN (BEAKER) (test gcwp=976) 12.0 GM/DL 12.0-15.0 HEMATOCRIT (BEAKER) (test badn=155) 39.4 % 36.0-45.0 MEAN CORPUSCULAR VOLUME (BEAKER) (test pjyz=278) 94.4 fL 82.0-99.0 MEAN CORPUSCULAR HEMOGLOBIN (BEAKER) (test 28.8 pg 27.0-33.0 rufj=379) MEAN CORPUSCULAR HEMOGLOBIN CONC (BEAKER) (test 30.5 GM/DL 32.0-36.0 npxn=443) RED CELL DISTRIBUTION WIDTH (BEAKER) (test 13.1 % 10.3-14.2 yrfo=070) PLATELET COUNT (BEAKER) (test rzbp=854) 137 K/CU MM 150-430 MEAN PLATELET VOLUME (BEAKER) (test qrkd=803) 7.2 fL 6.5-10.5 NUCLEATED RED BLOOD CELLS (BEAKER) (test 0 /100 WBC 0-0 cxbj=140) 0.00POCT-GLUCOSE [id number] 17:50:00 Test Item Value Reference Range Comments POC-GLUCOSE METER (BEAKER) 118 mg/dL 70-110 TESTED AT [address] (test fgkh=1943) [place] [address] POCT-GLUCOSE [id number] 11:59:00 Test Item Value Reference Range Comments POC-GLUCOSE METER (BEAKER) 247 mg/dL 70-110 TESTED AT [address] (test fgol=4598) [place] [id number] POCT-GLUCOSE [id number] 07:54:00 Test Item Value Reference Range Comments POC-GLUCOSE METER (BEAKER) 141 mg/dL 70-110 TESTED AT [address] (test dncz=6818) [place] [id number] CBC W/PLT COUNT & AUTO [id number] 03:45:00 Test Item Value Reference Range Comments WHITE BLOOD CELL COUNT (BEAKER) (test mqhb=817) 4.9 K/ L 4.0-10.0 RED BLOOD CELL COUNT (BEAKER) (test yozz=742) 4.03 M/ L 4.00-5.00 HEMOGLOBIN (BEAKER) (test kapw=163) 12.2 GM/DL 12.0-15.0 HEMATOCRIT (BEAKER) (test mlsf=484) 37.3 % 36.0-45.0 MEAN CORPUSCULAR VOLUME (BEAKER) (test niaq=252) 92.5 fL 82.0-99.0 MEAN CORPUSCULAR HEMOGLOBIN (BEAKER) (test 30.3 pg 27.0-33.0 zpok=838) MEAN CORPUSCULAR HEMOGLOBIN CONC (BEAKER) (test 32.8 GM/DL 32.0-36.0 xcvz=002) RED CELL DISTRIBUTION WIDTH (BEAKER) (test 14.3 % 10.3-14.2 jsrs=101) PLATELET COUNT (BEAKER) (test kmzs=479) 122 K/CU MM 150-430 MEAN PLATELET VOLUME (BEAKER) (test glye=545) 8.0 fL 6.5-10.5 NUCLEATED RED BLOOD CELLS (BEAKER) (test 0 /100 WBC 0-0 whza=849) NEUTROPHILS RELATIVE PERCENT (BEAKER) (test 88 % oevz=422) LYMPHOCYTES RELATIVE PERCENT (BEAKER) (test 10 % odml=967) MONOCYTES RELATIVE PERCENT (BEAKER) (test 2 % kglr=634) EOSINOPHILS RELATIVE PERCENT (BEAKER) (test 0 % txqv=199) BASOPHILS RELATIVE PERCENT (BEAKER) (test 0 % oqed=770) NEUTROPHILS ABSOLUTE COUNT (BEAKER) (test 4.32 K/ L 1.80-8.00 dfip=586) LYMPHOCYTES ABSOLUTE COUNT (BEAKER) (test 0.49 K/ L 1.48-4.50 nofw=139) MONOCYTES ABSOLUTE COUNT (BEAKER) (test 0.09 K/ L 0.00-1.30 rucu=808) EOSINOPHILS ABSOLUTE COUNT (BEAKER) (test 0.02 K/ L 0.00-0.50 tqid=932) BASOPHILS ABSOLUTE COUNT (BEAKER) (test 0.01 K/ L 0.00-0.20 tmmu=667) [id number] 03:29:00 Test Item Value Reference Range Comments MAGNESIUM (BEAKER) (test 1.8 mg/dL 1.6-2.6 Specimen slightly hemolyzed body=201) BASIC METABOLIC [id number] 03:29:00 Test Item Value Reference Range Comments SODIUM (BEAKER) (test 139 meq/L 136-145 ywyq=199) POTASSIUM (BEAKER) (test 4.4 meq/L 3.5-5.1 Specimen slightly sqsh=725) hemolyzed CHLORIDE (BEAKER) (test 93 meq/L 98-107 vxyg=571) CO2 (BEAKER) (test 39 meq/L 22-29 huyq=118) BLOOD UREA NITROGEN 15 mg/dL 7-21 (BEAKER) (test dxyf=397) CREATININE (BEAKER) (test 0.67 mg/dL 0.57-1.25 Specimen slightly fhjm=093) hemolyzed GLUCOSE RANDOM (BEAKER) 150 mg/dL 70-105 (test kkqf=432) CALCIUM (BEAKER) (test 8.6 mg/dL 8.4-10.2 enuj=623) EGFR (BEAKER) (test 91 mL/min/1.73 sq m ESTIMATED GFR IS NOT lzov=0991) ACCURATE CREATININE CLEARANCE IN PREDICTING GLOMERULAR FILTRATION RATE. ESTIMATED GFR IS NOT APPLICABLE FOR DIALYSIS PATIENTS. POCT-GLUCOSE [id number] 00:05:00 Test Item Value Reference Range Comments POC-GLUCOSE METER (BEAKER) 117 mg/dL 70-110 TESTED AT [address] (test biho=5009) [facility] [address] POCT-GLUCOSE [id number] 18:17:00 Test Item Value Reference Range Comments POC-GLUCOSE METER (BEAKER) 141 mg/dL 70-110 TESTED AT [address] (test zmdr=6037) [place] [id number] CREATINE KINASE (CK), TOTAL AND [id number] 15:43:00 Test Item Value Reference Range Comments CREATINE KINASE TOTAL (BEAKER) (test lhxi=075) 31 U/L 29-200 CREATINE KINASE-MB (BEAKER) (test unjs=637) 1.3 ng/mL 0.0-6.6 CREATINE KINASE-MB INDEX (BEAKER) (test jhhp=716) 4.2 % Effective 08/09/2014: CK-MB Reference Range ChangeNew: 0.0-6.6 Previous: 0.0- 4.9CK-MB Reference Range:<6.7 Normal6.7-10.0 Borderline>10.0 AbnormalBLOOD GAS, [id number] 15:26:00 Test Item Value Reference Range Comments PH ARTERIAL (BEAKER) (test uoyz=564) 7.41 7.35-7.45 PCO2 ARTERIAL (BEAKER) (test smow=490) 68 mmHg 35-45 PO2 ARTERIAL (BEAKER) (test crac=768) 67 mmHg 80-90 O2 SATURATION ARTERIAL (BEAKER) (test ztou=585) 92.2 % 96.0-97.0 HCO3 ARTERIAL (BEAKER) (test nudm=824) 42 mmol/L 21-29 BASE EXCESS ARTERIAL (BEAKER) (test stlu=201) 14.8 mmol/L -2.0-3.0 PATIENT TEMPERATURE (BEAKER) (test xyia=2134) 37.5 C FIO2 (BEAKER) (test hrxu=7710) 35.0 % POCT-GLUCOSE [id number] 11:45:00 Test Item Value Reference Range Comments POC-GLUCOSE METER (BEAKER) 122 mg/dL 70-110 TESTED AT [facility] [address] [facility] (test vtlz=4426) [facility] [address] CREATINE KINASE (CK), TOTAL AND [id number] 10:29:00 Test Item Value Reference Range Comments CREATINE KINASE TOTAL (BEAKER) (test irmo=894) 31 U/L 29-200 CREATINE KINASE-MB (BEAKER) (test dalq=572) 1.5 ng/mL 0.0-6.6 CREATINE KINASE-MB INDEX (BEAKER) (test mplm=848) 4.8 % Effective 08/09/2014: CK-MB Reference Range ChangeNew: 0.0-6.6 Previous: 0.0- 4.9CK-MB Reference Range:<6.7 Normal6.7-10.0 Borderline>10.0 AbnormalTROPONIN [id number] 10:29:00 Test Item Value Reference Range Comments TROPONIN I (BEAKER) (test xcqa=092) < ng/mL 0.00-0.03 Effective 08/09/2014: Reference Range [...] renalfailure, acidosis, acute neurological disease, and persistent tachyarrhythmia.[id number] 10:22:00 Test Item Value Reference Range Comments PARTIAL THROMBOPLASTIN TIME (BEAKER) (test 22.5 seconds 22.5-36.0 eiuq=212) PROTHROMBIN [id number] 10:21:00 Test Item Value Reference Range Comments PROTIME (BEAKER) (test jmhz=286) 12.4 seconds 11.7-14.7 INR (BEAKER) (test kazq=981) 0.9 <=5.9 RECOMMENDED COUMADIN/WARFARIN INR THERAPY RANGESSTANDARD DOSE: 2.0 - 3.0 Includes: PROPHYLAXIS forvenous thrombosis, systemic embolization; TREATMENT for venous thrombosis and/or pulmonary embolus.HIGH RISK: Target INR is 2.5-3.5 for patients with mechanical heart valves.BLOOD GAS, [id number] 10:17:00 Test Item Value Reference Range Comments PH ARTERIAL (BEAKER) (test ripm=968) 7.42 7.35-7.45 PCO2 ARTERIAL (BEAKER) (test ejrx=125) 63 mmHg 35-45 PO2 ARTERIAL (BEAKER) (test vkmk=852) 51 mmHg 80-90 O2 SATURATION ARTERIAL (BEAKER) (test ekjp=101) 85.7 % 96.0-97.0 HCO3 ARTERIAL (BEAKER) (test obuy=919) 40 mmol/L 21-29 BASE EXCESS ARTERIAL (BEAKER) (test eopj=422) 12.7 mmol/L -2.0-3.0 PATIENT TEMPERATURE (BEAKER) (test zxtg=6594) 37.0 C FIO2 (BEAKER) (test egjm=0244) 40.0 % PLATELET [id number] 10:13:00 Test Item Value Reference Range Comments PLATELET COUNT (BEAKER) (test ehob=206) 111 K/CU MM 150-430
[2018-10-14] MEDS ORDERED: LIDOCAINE 1% MPF 5 ML VIAL ONE (08:52)
[2018-10-14] MEDS ORDERED: PROPOFOL 200 MG/20 ML VIAL IV ONE ×2 (08:52)
[2018-10-14] MEDS ORDERED: Ringers Lactate 1,000 ML IV ONE (09:21)
--- NOTE | 2018-10-14 10:13 | ENDO RPT ---
[address], [address] COLONOSCOPY PROCEDURE REPORT EXAM DATE: 10/14/2018 PATIENT NAME: Vikki Zamudio MR #: [id number] BIRTHDATE: 1960 ATTENDING: Martin Valencia DR STATUS: outpatient YOGHURT MAKER: Karen Hammer RN, Reginald Kim Tech, and Jayashree Rolon INDICATIONS: The patient is a 58 yr old Female here for a colonoscopy due to colon cancer screening PROCEDURE PERFORMED: Screening Colonoscopy and Colonoscopy MEDICATIONS: Per Anesthesia. ESTIMATED BLOOD LOSS: None CONSENT: The patient understands the risks and benefits of the procedure and understands that these risks include, but are not limited to: sedation, allergic reaction, infection, perforation and/or bleeding. Alternative means of evaluation and treatment include, among others: physical exam, x-rays, and/or surgical intervention. The patient elects to proceed with this endoscopic procedure. DESCRIPTION OF PROCEDURE: During intra-op preparation period all mechanical medical equipment was checked for proper function. Hand hygiene and appropriate measures for infection prevention was taken. Procedure, possible complications, alternatives including, but not limited to possibility of bleeding, perforation, tear, infection, sepsis, need for surgery, need for blood transfusion, were explained to the patient. After the risks, benefits and alternatives of the procedure were thoroughly explained, Informed consent was verified, confirmed and timeout was successfully executed by the treatment team. The patient was placed in the left lateral position. A digital rectal exam was performed and revealed internal hemorrhoids. After appropriate level of anesthesia, the scope was passed. The EC-3890Li ([id number]) and EC-3890Li ([id number]) endoscope was introduced through the anus and advanced to the cecum, which was identified by both the appendix and ileocecal valve. The quality of the prep was fair. The instrument was then slowly withdrawn as the colon was fully examined. Scope withdrawal time was 9 minutes. COLON FINDINGS: Moderate diverticulosis was noted in the left colon. No bleeding was noted from the diverticulosis. Small internal hemorrhoids were found. Retroflexed views revealed no abnormalities. The scope was then completely withdrawn from the patient and the procedure terminated. ADVERSE EVENTS: There were no complications. IMPRESSIONS: 1. Moderate diverticulosis was noted in the left colon 2. Small internal hemorrhoids RECOMMENDATIONS: 1. yearly hemoccult starting in 4 years 2. low fiber / diverticular diet 3. increase dietary water 4. hemorrhoidal hygiene RECALL: Return in 10 year(s) for Colonoscopy. Martin Valencia DR eSigned: Martin Valencia DR 10/14/2018 10:12 AM cc: CPT CODES: ICD9 CODES: PATIENT NAME: LizzVikki MR#: [id number]
[2018-10-14 11:55] VITALS: TEMP 98.6
[2018-10-14 11:56] VITALS: BP 136/61; O2SAT 97
== END 2018-10-14 11:00 | disposition home or self-care (01) ==
LOC: OR 08:17
PROVIDERS: ATTEND Surgery
PROC: 0DJD8ZZ Inspection of Lower Intestinal Tract, Via Natural or Artificial Opening Endoscopic (ICD-10-PCS; principal; 2018-10-14 09:00)
DX: Z12.11 Encounter for screening for malignant neoplasm of colon (principal); K57.30 Diverticulosis of large intestine without perforation or abscess without bleeding; K64.8 Other hemorrhoids; I10 Essential (primary) hypertension; J44.9 Chronic obstructive pulmonary disease, unspecified; G47.30 Sleep apnea, unspecified; K21.9 Gastro-esophageal reflux disease without esophagitis; E03.9 Hypothyroidism, unspecified; E78.5 Hyperlipidemia, unspecified; Z87.891 Personal history of nicotine dependence; Z88.6 Allergy status to analgesic agent; Z83.3 Family history of diabetes mellitus; Z82.49 Family history of ischemic heart disease and other diseases of the circulatory system; Z82.3 Family history of stroke
CPT/HCPCS: J2704

== ENCOUNTER 2019-03-15 23:50 | Inpatient (IN) | payer OTHER ==
--- OUTSIDE RECORDS SUMMARY | 2019-03-15 23:53 | XMS REPORT ---
:1960 [facility] [place] [address] Care Team Providers Name Role Phone HESHAM [...] Comments SODIUM (BEAKER) (test 139 meq/L 136-145 vwrq=092) POTASSIUM (BEAKER) (test 3.5 meq/L 3.5-5.1 qlev=952) CHLORIDE (BEAKER) (test 95 meq/L 98-107 aesb=000) CO2 (BEAKER) (test laqq=956) 40 meq/L 22-29 BLOOD UREA NITROGEN (BEAKER) 14 mg/dL 7-21 (test zwns=294) CREATININE (BEAKER) (test 0.64 mg/dL 0.57-1.25 esec=584) GLUCOSE RANDOM (BEAKER) 92 mg/dL 70-105 (test gqzk=322) CALCIUM (BEAKER) (test 8.4 mg/dL 8.4-10.2 bkio=909) EGFR (BEAKER) (test 96 mL/min/1.73 sq m ESTIMATED GFR IS NOT mbsz=6403) ACCURATE CREATININE CLEARANCE IN PREDICTING GLOMERULAR FILTRATION RATE. ESTIMATED GFR IS NOT APPLICABLE FOR DIALYSIS PATIENTS. CBC (HEMOGRAM ONLY)2017-02-26 05:21:00 Test Item Value Reference Range Comments WHITE BLOOD CELL COUNT (BEAKER) (test afta=191) 6.4 K/ L 4.0-10.0 RED BLOOD CELL COUNT (BEAKER) (test ezmq=175) 4.17 M/ L 4.00-5.00 HEMOGLOBIN (BEAKER) (test xoks=051) 12.0 GM/DL 12.0-15.0 HEMATOCRIT (BEAKER) (test dvys=461) 39.4 % 36.0-45.0 MEAN CORPUSCULAR VOLUME (BEAKER) (test tolv=305) 94.4 fL 82.0-99.0 MEAN CORPUSCULAR HEMOGLOBIN (BEAKER) (test 28.8 pg 27.0-33.0 txne=628) MEAN CORPUSCULAR HEMOGLOBIN CONC (BEAKER) (test 30.5 GM/DL 32.0-36.0 aurs=153) RED CELL DISTRIBUTION WIDTH (BEAKER) (test 13.1 % 10.3-14.2 lmmf=164) PLATELET COUNT (BEAKER) (test xowa=516) 137 K/CU MM 150-430 MEAN PLATELET VOLUME (BEAKER) (test rqnn=031) 7.2 fL 6.5-10.5 NUCLEATED RED BLOOD CELLS (BEAKER) (test 0 /100 WBC 0-0 cjgi=187) 0.00POCT-GLUCOSE [id number] 17:50:00 Test Item Value Reference Range Comments POC-GLUCOSE METER (BEAKER) 118 mg/dL 70-110 TESTED AT [address] (test bdhw=5592) [place] [address] POCT-GLUCOSE [id number] 11:59:00 Test Item Value Reference Range Comments POC-GLUCOSE METER (BEAKER) 247 mg/dL 70-110 TESTED AT [address] (test rgig=2840) [place] [id number] POCT-GLUCOSE [id number] 07:54:00 Test Item Value Reference Range Comments POC-GLUCOSE METER (BEAKER) 141 mg/dL 70-110 TESTED AT [address] (test esau=4253) [place] [id number] CBC W/PLT COUNT & AUTO [id number] 03:45:00 Test Item Value Reference Range Comments WHITE BLOOD CELL COUNT (BEAKER) (test xssz=985) 4.9 K/ L 4.0-10.0 RED BLOOD CELL COUNT (BEAKER) (test ufah=547) 4.03 M/ L 4.00-5.00 HEMOGLOBIN (BEAKER) (test gtbs=917) 12.2 GM/DL 12.0-15.0 HEMATOCRIT (BEAKER) (test ctxq=486) 37.3 % 36.0-45.0 MEAN CORPUSCULAR VOLUME (BEAKER) (test vxnm=701) 92.5 fL 82.0-99.0 MEAN CORPUSCULAR HEMOGLOBIN (BEAKER) (test 30.3 pg 27.0-33.0 rumc=020) MEAN CORPUSCULAR HEMOGLOBIN CONC (BEAKER) (test 32.8 GM/DL 32.0-36.0 fplz=367) RED CELL DISTRIBUTION WIDTH (BEAKER) (test 14.3 % 10.3-14.2 wznc=537) PLATELET COUNT (BEAKER) (test ctpr=843) 122 K/CU MM 150-430 MEAN PLATELET VOLUME (BEAKER) (test rtlp=629) 8.0 fL 6.5-10.5 NUCLEATED RED BLOOD CELLS (BEAKER) (test 0 /100 WBC 0-0 msni=633) NEUTROPHILS RELATIVE PERCENT (BEAKER) (test 88 % fokf=898) LYMPHOCYTES RELATIVE PERCENT (BEAKER) (test 10 % airs=019) MONOCYTES RELATIVE PERCENT (BEAKER) (test 2 % jens=862) EOSINOPHILS RELATIVE PERCENT (BEAKER) (test 0 % mwyz=902) BASOPHILS RELATIVE PERCENT (BEAKER) (test 0 % pqat=854) NEUTROPHILS ABSOLUTE COUNT (BEAKER) (test 4.32 K/ L 1.80-8.00 mthj=014) LYMPHOCYTES ABSOLUTE COUNT (BEAKER) (test 0.49 K/ L 1.48-4.50 mffc=804) MONOCYTES ABSOLUTE COUNT (BEAKER) (test 0.09 K/ L 0.00-1.30 xihl=486) EOSINOPHILS ABSOLUTE COUNT (BEAKER) (test 0.02 K/ L 0.00-0.50 rmbs=799) BASOPHILS ABSOLUTE COUNT (BEAKER) (test 0.01 K/ L 0.00-0.20 ijyf=627) [id number] 03:29:00 Test Item Value Reference Range Comments MAGNESIUM (BEAKER) (test 1.8 mg/dL 1.6-2.6 Specimen slightly hemolyzed bxcx=953) BASIC METABOLIC [id number] 03:29:00 Test Item Value Reference Range Comments SODIUM (BEAKER) (test 139 meq/L 136-145 khlq=623) POTASSIUM (BEAKER) (test 4.4 meq/L 3.5-5.1 Specimen slightly eivy=472) hemolyzed CHLORIDE (BEAKER) (test 93 meq/L 98-107 rgwm=092) CO2 (BEAKER) (test 39 meq/L 22-29 vvya=634) BLOOD UREA NITROGEN 15 mg/dL 7-21 (BEAKER) (test zqcs=058) CREATININE (BEAKER) (test 0.67 mg/dL 0.57-1.25 Specimen slightly tozm=567) hemolyzed GLUCOSE RANDOM (BEAKER) 150 mg/dL 70-105 (test xxat=743) CALCIUM (BEAKER) (test 8.6 mg/dL 8.4-10.2 otov=546) EGFR (BEAKER) (test 91 mL/min/1.73 sq m ESTIMATED GFR IS NOT pezo=4276) ACCURATE CREATININE CLEARANCE IN PREDICTING GLOMERULAR FILTRATION RATE. ESTIMATED GFR IS NOT APPLICABLE FOR DIALYSIS PATIENTS. POCT-GLUCOSE [id number] 00:05:00 Test Item Value Reference Range Comments POC-GLUCOSE METER (BEAKER) 117 mg/dL 70-110 TESTED AT [address] (test wojq=5096) [facility] [address] POCT-GLUCOSE [id number] 18:17:00 Test Item Value Reference Range Comments POC-GLUCOSE METER (BEAKER) 141 mg/dL 70-110 TESTED AT [address] (test movx=2451) [place] [id number] CREATINE KINASE (CK), TOTAL AND [id number] 15:43:00 Test Item Value Reference Range Comments CREATINE KINASE TOTAL (BEAKER) (test lwhd=178) 31 U/L 29-200 CREATINE KINASE-MB (BEAKER) (test adba=799) 1.3 ng/mL 0.0-6.6 CREATINE KINASE-MB INDEX (BEAKER) (test ehcg=135) 4.2 % Effective 08/09/2014: CK-MB Reference Range ChangeNew: 0.0-6.6 Previous: 0.0- 4.9CK-MB Reference Range:<6.7 Normal6.7-10.0 Borderline>10.0 AbnormalBLOOD GAS, [id number] 15:26:00 Test Item Value Reference Range Comments PH ARTERIAL (BEAKER) (test crig=325) 7.41 7.35-7.45 PCO2 ARTERIAL (BEAKER) (test tvvy=689) 68 mmHg 35-45 PO2 ARTERIAL (BEAKER) (test mfwm=438) 67 mmHg 80-90 O2 SATURATION ARTERIAL (BEAKER) (test xsxt=198) 92.2 % 96.0-97.0 HCO3 ARTERIAL (BEAKER) (test qbip=376) 42 mmol/L 21-29 BASE EXCESS ARTERIAL (BEAKER) (test reaw=181) 14.8 mmol/L -2.0-3.0 PATIENT TEMPERATURE (BEAKER) (test fgrb=0151) 37.5 C FIO2 (BEAKER) (test gyol=9347) 35.0 % POCT-GLUCOSE [id number] 11:45:00 Test Item Value Reference Range Comments POC-GLUCOSE METER (BEAKER) 122 mg/dL 70-[address] [facility] [address] [facility] (test olpe=3940) [facility] [address] CREATINE KINASE (CK), TOTAL AND [id number] 10:29:00 Test Item Value Reference Range Comments CREATINE KINASE TOTAL (BEAKER) (test dpfk=912) 31 U/L 29-200 CREATINE KINASE-MB (BEAKER) (test pein=312) 1.5 ng/mL 0.0-6.6 CREATINE KINASE-MB INDEX (BEAKER) (test yfjp=122) 4.8 % Effective 08/09/2014: CK-MB Reference Range ChangeNew: 0.0-6.6 Previous: 0.0- 4.9CK-MB Reference Range:<6.7 Normal6.7-10.0 Borderline>10.0 AbnormalTROPONIN [id number] 10:29:00 Test Item Value Reference Range Comments TROPONIN I (BEAKER) (test knwf=859) < ng/mL 0.00-0.03 Effective 08/09/2014: Reference Range [...] renalfailure, acidosis, acute neurological disease, and persistent tachyarrhythmia.[id number] 10:22:00 Test Item Value Reference Range Comments PARTIAL THROMBOPLASTIN TIME (BEAKER) (test 22.5 seconds 22.5-36.0 evke=536) PROTHROMBIN TIME/[id number] 10:21:00 Test Item Value Reference Range Comments PROTIME (BEAKER) (test qtyp=632) 12.4 seconds 11.7-14.7 INR (BEAKER) (test rgjm=325) 0.9 <=5.9 RECOMMENDED COUMADIN/WARFARIN INR THERAPY RANGESSTANDARD DOSE: 2.0 - 3.0 Includes: PROPHYLAXIS forvenous thrombosis, systemic embolization; TREATMENT for venous thrombosis and/or pulmonary embolus.HIGH RISK: Target INR is 2.5-3.5 for patients with mechanical heart valves.BLOOD GAS, [id number] 10:17:00 Test Item Value Reference Range Comments PH ARTERIAL (BEAKER) (test vvmc=210) 7.42 7.35-7.45 PCO2 ARTERIAL (BEAKER) (test hqzc=115) 63 mmHg 35-45 PO2 ARTERIAL (BEAKER) (test kgcg=061) 51 mmHg 80-90 O2 SATURATION ARTERIAL (BEAKER) (test uxtl=530) 85.7 % 96.0-97.0 HCO3 ARTERIAL (BEAKER) (test baaj=146) 40 mmol/L 21-29 BASE EXCESS ARTERIAL (BEAKER) (test agfk=159) 12.7 mmol/L -2.0-3.0 PATIENT TEMPERATURE (BEAKER) (test hnhl=6234) 37.0 C FIO2 (BEAKER) (test rtlw=4378) 40.0 % PLATELET [id number] 10:13:00 Test Item Value Reference Range Comments PLATELET COUNT (BEAKER) (test ofbu=630) 111 K/CU MM 150-430
--- OUTSIDE RECORDS SUMMARY | 2019-03-15 23:53 | XMS REPORT | Clinical Summary ---
:1960 Author Organization [facility] Address [address] [place] [address] Care Team Providers Name Role Phone Unavailable Primary Care Provider Unavailable Allergies No Known Allergies Medications Medication Sig Dispensed Refills Start Date End Date Status predniSONE (DELTASONE) Take 4 tablets 36 tablet 0 02/26/2017 Active 10 MG tablet daily for 4 days, then 3 tablets daily for 4 days, then 2 tablets daily until tablets run out.. azithromycin Take 1 tablet 4 tablet 0 02/26/2017 Active (ZITHROMAX) 250 MG (250 mg total) by tablet mouth daily Take by mouth as directed.. Active Problems Problem Noted Date Tobacco abuse [...] Not on file Results Not on fileafter 03/14/2018 Insurance Payer Benefit Plan / Subscriber ID Type Phone Address Group MEDICAID - MEDICAID [facility] xxxxxxxxx Medicaid Contracted [employer] CARE PLAN [address] (Home) [place] [address] Advance Directives For more information, please contact:[facility] [phone] Code Status Date Activated Date Inactivated Comments Full Code 02/24/2017 8:19 AM 02/26/2017 1:59 PM This code status was determined by: Patient
[2019-03-16] MEDS ORDERED: AZITHROMYCIN 500 MG INJ IVPB ONE (00:17)
[2019-03-16] MEDS ORDERED: DEXAMETHASONE 10 MG/ML VIAL ONE (00:17)
[2019-03-16] MEDS ORDERED: METHYLPREDNISOLONE 125 MG INJ ONE (00:17)
[2019-03-16] MEDS ORDERED: ACETAMINOPHEN 325 MG TABLET ONE (00:17)
[2019-03-16] MEDS ORDERED: NA CHLORIDE 0.9% 1,000 ML ONE (00:18)
[2019-03-16] MEDS ORDERED: NA CHLORIDE 0.9% 250 ML ONE (00:18)
[2019-03-16] MEDS ORDERED: IPRATROPIUM BROM 0.5MG/2.5ML ONE (00:19)
[2019-03-16] MEDS ORDERED: LEVALBUTEROL 1.25 MG/3 ML NEB ONE (00:20)
--- NOTE | 2019-03-16 00:22 | ER ---
Nurse's Notes [facility] Name: Vikki Zamudio Age: 58 yrs Sex: Female : 1960 Arrival Date: 03/15/2019 Time: 23:53 Bed 24 Private MD: Diagnosis: Chronic obstructive pulmonary disease with (acute) exacerbation;Fever, unspecified;Hypoxemia;Obesity, unspecified;Bandemia Presentation: 03/15 23:55 Presenting complaint: Patient states: SOB and back since this am. Reports hx of COPD aa1 and is on continuous O2 at home at 2.5 L. Upon arrival to ED pt tachypneic with grunting respirations. Transition of care: patient was not received from another setting of care. Onset of symptoms was March 15, 2019. Risk Assessment: Do you want to hurt yourself or someone else? Patient reports no desire to harm self or others. Initial Sepsis Screen: Does the patient meet any 2 criteria? RR > 20 per min. HR > 90 bpm. Does the patient have a suspected source of infection? No. Patient's initial sepsis screen is negative. Care prior to arrival: Oxygen administered. via nasal cannula. 23:55 Method Of Arrival: EMS: [facility] aa1 23:55 Acuity: LIZETH 2 aa1 Historical: - Allergies: 03/16 00:06 Codeine; aa1 - PMHx: 00:06 CHF; Hypothyroidism; GERD; COPD; High Cholesterol; Hypertension; Panic Attacks; Sleep aa1 Apnea; - Immunization history:: Hepatitis A vaccine is not up to date. - Social history:: Smoking status: Patient/guardian denies using tobacco, the patient reports quitting approximately 2 years ago. - Family history:: not pertinent. - Ebola Screening: : Patient denies exposure to infectious person Patient denies travel to an Ebola-affected area in the 21 days before illness onset. Screenin:00 Abuse screen: Denies threats or abuse. Denies injuries from another. Nutritional aa1 screening: No deficits noted. Tuberculosis screening: No symptoms or risk factors identified. Fall Risk None identified. Assessment: 00:00 General: Appears distressed, uncomfortable, Behavior is cooperative, appropriate for aa1 age, anxious. Pain: Complains of pain in left subscapular area and right subscapular area Pain currently is 10 out of 10 on a pain scale. Quality of pain is described as stabbing, Pain began suddenly, Is continuous. Neuro: Level of Consciousness is awake, alert, obeys commands, Oriented to person, place, time, situation, Moves all extremities. Speech is normal. Cardiovascular: Heart tones S1 S2 present Rhythm is regular. Respiratory: Reports shortness of breath at rest labored breathing pain with respiration Airway is patent Respiratory effort is even, labored, Respiratory pattern is tachypnea Breath sounds with wheezes bilaterally. Onset: The symptoms/episode began/occurred this morning, the patient has severe shortness of breath. GI: No signs and/or symptoms were reported involving the gastrointestinal system. : No signs and/or symptoms were reported regarding the genitourinary system. EENT: No signs and/or symptoms were reported regarding the EENT system. Derm: Skin is intact, is healthy with good turgor, Skin is pink, warm \T\ dry. Musculoskeletal: Circulation, motion, and sensation intact. Capillary refill < 3 seconds. 01:11 Reassessment: Patient appears in no apparent distress at this time. Patient and/or aa1 family updated on plan of care and expected duration. Pain level reassessed. Patient is alert, oriented x 3, equal unlabored respirations, skin warm/dry/pink. Pt states she is feeling much better Patient states symptoms have improved. 02:00 Reassessment: Patient appears in no apparent distress at this time. Patient and/or aa1 family updated on plan of care and expected duration. Pain level reassessed. Patient is alert, oriented x 3, equal unlabored respirations, skin warm/dry/pink. Awaiting bed assignment. 02:40 Reassessment: Patient appears in no apparent distress at this time. Patient is alert, aa1 oriented x 3, equal unlabored respirations, skin warm/dry/pink. Report given to DULCE Ring on 4th floor Patient states feeling better. Vital Signs: 03/15 23:55 BP 103 / 93; Pulse 119; Resp 36; Temp 99.7(O); Pulse Ox 97% on 4 lpm NC; Weight 136.08 aa1 kg; Height 5 ft. 9 in. (175.26 cm); Pain 07/01; 03/16 00:37 BP 101 / 87; Pulse 110; Resp 32; Pulse Ox 99% on BiPAP; aa1 01:30 BP 100 / 86; Pulse 94; Resp 28; Pulse Ox 98% on BiPAP; aa1 02:20 BP 108 / 52; Pulse 89; Resp 24; Temp 98.9; Pulse Ox 94% on 4 lpm NC; aa1 03/15 23:55 Body Mass Index 44.30 (136.08 kg, 175.26 cm) aa1 ED Course: 03/15 23:53 Patient arrived in ED. bb 23:53 Po Toure MD is Attending Physician. chato 23:55 Arm band placed on right wrist. aa1 23:59 Pooja Bentley, DULCE is Primary Nurse. aa1 03/16 00:00 Patient has correct armband on for positive identification. Bed in low position. Call aa1 light in reach. vp ad products and planning on. Pulse ox on. NIBP on. 00:00 O2 via BiPAP. aa1 00:04 Triage completed. aa1 00:05 Initial lab(s) drawn, by ia, sent to lab. First set of blood cultures drawn by ED aa1 staff, Second set of blood cultures drawn. Inserted saline lock: 20 gauge in left wrist, using aseptic technique. ,using aseptic technique. by García Ramirez RN Blood collected. 00:08 EKG done, by ED staff, reviewed by Po Toure MD. aa1 00:18 Sarah Young MD is Hospitalizing Provider. chato 01:06 X-ray completed. Patient tolerated procedure well. kw 01:10 BIPAP Sent. aa1 01:11 XRAY Chest (1 view) In Process Unspecified. EDMS 02:35 No provider procedures requiring assistance completed. Patient admitted, IV remains in aa1 place. Administered Medications: 00:13 Drug: Xopenex 3.75 mg Route: Inhalation; aa1 00:13 Drug: AtroVENT Aerosol 0.5 mg Route: Inhalation; aa1 00:15 Drug: Tylenol 650 mg Route: PO; aa1 01:08 Follow up: Response: No adverse reaction; Temperature is decreased aa1 00:22 CANCELLED (Duplicate Order): Rocephin - (cefTRIAXone) 2 grams IVPB once over 30 mins; aa1 (mix in 100 mL NS) 00:34 Drug: Decadron - Dexamethasone 10 mg Route: IVP; Site: right wrist; mg2 01:08 Follow up: Response: No adverse reaction; Marked relief of symptoms aa1 00:34 Drug: Zithromax 500 mg Route: IVPB; Infused Over: 1 hrs; Site: right wrist; mg2 01:35 Follow up: IV Status: Completed infusion aa1 00:34 Drug: Rocephin 2 grams Route: IV; Rate: calculated rate; Site: right wrist; mg2 00:44 Follow up: IV Status: Completed infusion; IV Intake: 20ml aa1 00:35 Drug: NS 0.9% 500 ml Route: IV; Rate: bolus; Site: right wrist; mg2 01:09 Follow up: IV Status: Completed infusion; IV Intake: 500ml aa1 00:35 Drug: SOLU-Medrol 125 mg Route: IVP; Site: right wrist; mg2 01:09 Follow up: Response: No adverse reaction; Marked relief of symptoms aa1 01:10 Drug: NS 0.9% 1000 ml Route: IV; Rate: 125 ml/hr; Site: right wrist; aa1 02:48 Follow up: IV Status: Infusion continued upon admission aa1 Intake: 00:44 IV: 20ml; Total: 20ml. aa1 01:09 IV: 500ml; Total: 520ml. aa1 Outcome: 00:19 Decision to Hospitalize by Provider. chato 02:46 Admitted to Tele accompanied by tech, via wheelchair, room 409, with oxygen, with aa1 chart, Report called to DULCE Ring 02:46 Condition: stable 02:46 Instructed on the need for admit, Demonstrated understanding of instructions. 02:51 Patient left the ED. aa1 Signatures: Dispatcher [employer] EDPooja Flanagan RN RN aa1 Po Toure MD MD cha Ballard, Brenda, RN RN Eden Caballero Michele, RN RN mg2
--- NOTE | 2019-03-16 00:23 | EDPHYS ---
Physician Documentation [facility] Name: Vikki Zamudio Age: 58 yrs Sex: Female : 1960 Arrival Date: 03/15/2019 Time: 23:53 Bed 24 Private MD: ED Physician Po Toure HPI: 03/15 23:58 This 58 yrs old Female presents to ER via Unassigned with complaints of copd, chato fever and sob. 23:58 The patient has shortness of breath at rest, with light activity. Onset: The chato symptoms/episode began/occurred 2 day(s) ago. Duration: The symptoms are continuous, and are steadily getting worse. The patient's shortness of breath is aggravated by coughing, supine position, talking, walking. The patient or guardian reports chest pain that is located primarily in the anterior chest wall, bilaterally. Onset: this morning, today. Modifying factors: The symptoms are alleviated by changing position, remaining still, the symptoms are aggravated by activity, lying flat, talking. Historical: - Allergies: 03/16 00:06 Codeine; aa1 - PMHx: 00:06 CHF; Hypothyroidism; GERD; COPD; High Cholesterol; Hypertension; Panic Attacks; Sleep aa1 Apnea; - Immunization history:: Hepatitis A vaccine is not up to date. - Social history:: Smoking status: Patient/guardian denies using tobacco, the patient reports quitting approximately 2 years ago. - Family history:: not pertinent. - Ebola Screening: : Patient denies exposure to infectious person Patient denies travel to an Ebola-affected area in the 21 days before illness onset. ROS: 03/15 23:58 Eyes: Negative for injury, pain, redness, and discharge, ENT: Negative for injury, chato pain, and discharge, Neck: Negative for injury, pain, and swelling, Cardiovascular: Negative for chest pain, palpitations, and edema, Abdomen/GI: Negative for abdominal pain, nausea, vomiting, diarrhea, and constipation. : Negative for injury, bleeding, discharge, and swelling, MS/Extremity: Negative for injury and deformity, Skin: Negative for injury, rash, and discoloration, Neuro: Negative for headache, weakness, numbness, tingling, and seizure. Constitutional: Positive for body aches, chills, fever. Respiratory: Positive for cough, shortness of breath, wheezing, inspiratory, expiratory. Exam: 03/16 00:00 Head/Face: Normocephalic, atraumatic. Eyes: Pupils equal round and reactive to light, chato extra-ocular motions intact. Lids and lashes normal. Conjunctiva and sclera are non-icteric and not injected. Cornea within normal limits. Periorbital areas with no swelling, redness, or edema. ENT: Nares patent. No nasal discharge, no septal abnormalities noted. Tympanic membranes are normal and external auditory canals are clear. Oropharynx with no redness, swelling, or masses, exudates, or evidence of obstruction, uvula midline. Mucous membranes moist. Neck: Trachea midline, no thyromegaly or masses palpated, and no cervical lymphadenopathy. Supple, full range of motion without nuchal rigidity, or vertebral point tenderness. No Meningismus. Chest/axilla: Normal chest wall appearance and motion. Nontender with no deformity. No lesions are appreciated. Abdomen/GI: Soft, non-tender, with normal bowel sounds. No distension or tympany. No guarding or rebound. No evidence of tenderness throughout. Back: No spinal tenderness. No costovertebral tenderness. Full range of motion. Female : Normal external genitalia. Skin: Warm, dry with normal turgor. Normal color with no rashes, no lesions, and no evidence of cellulitis. MS/ Extremity: Pulses equal, no cyanosis. Neurovascular intact. Full, normal range of motion. Neuro: Awake and alert, GCS 15, oriented to person, place, time, and situation. Cranial nerves II-XII grossly intact. Motor strength 5/5 in all extremities. Sensory grossly intact. Cerebellar exam normal. Normal gait. Psych: Awake, alert, with orientation to person, place and time. Behavior, mood, and affect are within normal limits. Cardiovascular: Rate: tachycardic, Rhythm: regular, Pulses: Pulses are 4+ in bilateral radial, brachial, femoral, popliteal, posterior tibial and and dorsalis pedis arteries.. Heart sounds: normal, Edema: is not appreciated, JVD: is not appreciated. Vital Signs: 03/15 23:55 BP 103 / 93; Pulse 119; Resp 36; Temp 99.7(O); Pulse Ox 97% on 4 lpm NC; Weight 136.08 aa1 kg; Height 5 ft. 9 in. (175.26 cm); Pain 10/10; 03/16 00:37 BP 101 / 87; Pulse 110; Resp 32; Pulse Ox 99% on BiPAP; aa1 01:30 BP 100 / 86; Pulse 94; Resp 28; Pulse Ox 98% on BiPAP; aa1 02:20 BP 108 / 52; Pulse 89; Resp 24; Temp 98.9; Pulse Ox 94% on 4 lpm NC; aa1 03/15 23:55 Body Mass Index 44.30 (136.08 kg, 175.26 cm) aa1 MDM: 03/15 23:53 Patient medically screened. [facility] [place] 03/16 00:00 Data reviewed: vital signs, nurses notes, lab test result(s), EKG, radiologic studies, [facility] [place] CT scan, plain films. 03/15 23:57 Order name: Basic Metabolic Panel; Complete Time: : [facility] [place] 03/15 23:57 Order name: CBC with Diff; Complete Time: : [facility] [place] 03/15 23:57 Order name: LFT's; Complete Time: : [facility] [place] 03/15 23:57 Order name: Magnesium; Complete Time: : [facility] [place] 03/15 23:57 Order name: NT PRO-BNP; Complete Time: : [facility] [place] 03/15 23:57 Order name: PT-INR; Complete Time: : [facility] [place] 03/15 23:57 Order name: Troponin (emerg Dept Use Only); Complete Time: : [facility] [place] 03/15 23:57 Order name: Blood Culture Adult (2) [facility] [place] 03/15 23:57 Order name: Procalcitonin; Complete Time: : [facility] [place] 03/15 23:57 Order name: Lactate; Complete Time: : [facility] [place] 03/15 23:57 Order name: Flu; Complete Time: : [facility] [place] 03/16 00:20 Order name: ABG; Complete Time: : [facility] [place] 03/16 00:44 Order name: Manual Differential; Complete Time: 01: EDVT 03/16 01:43 Order name: NT PRO-BNP [facility] 03/15 23:57 Order name: XRAY Chest (1 view) [facility] [place] 03/15 23:57 Order name: EKG; Complete Time: 00:08 [facility] [place] 03/15 23:57 Order name: Cardiac monitoring; Complete Time: 00:18 [facility] [place] 03/15 23:57 Order name: BIPAP [facility] [place] 03/16 01:43 Order name: NPO [facility] 03/16 01:43 Order name: Troponin I [facility] 03/15 23:57 Order name: EKG - Nurse/Tech; Complete Time: 00:18 [facility] [place] 03/15 23:57 Order name: IV Saline Lock; Complete Time: 00:18 [facility] [place] 03/15 23:57 Order name: Labs collected and sent; Complete Time: 00:18 [facility] [place] 03/15 23:57 Order name: O2 Per Protocol; Complete Time: 00:18 [facility] [place] 03/15 23:57 Order name: O2 Sat Monitoring; Complete Time: 00:18 [facility] [place] 03/16 00:01 Order name: IV Saline Lock - Large Bore; Complete Time: 00:17 [facility] [place] Administered Medications: 00:13 Drug: Xopenex 3.75 mg Route: Inhalation; aa1 00:13 Drug: AtroVENT Aerosol 0.5 mg Route: Inhalation; aa1 00:15 Drug: Tylenol 650 mg Route: PO; aa1 01:08 Follow up: Response: No adverse reaction; Temperature is decreased aa1 00:22 CANCELLED (Duplicate Order): Rocephin - (cefTRIAXone) 2 grams IVPB once over 30 mins; aa1 (mix in 100 mL NS) 00:34 Drug: Decadron - Dexamethasone 10 mg Route: IVP; Site: right wrist; mg2 01:08 Follow up: Response: No adverse reaction; Marked relief of symptoms aa1 00:34 Drug: Zithromax 500 mg Route: IVPB; Infused Over: 1 hrs; Site: right wrist; mg2 01:35 Follow up: IV Status: Completed infusion aa1 00:34 Drug: Rocephin 2 grams Route: IV; Rate: calculated rate; Site: right wrist; mg2 00:44 Follow up: IV Status: Completed infusion; IV Intake: 20ml aa1 00:35 Drug: NS 0.9% 500 ml Route: IV; Rate: bolus; Site: right wrist; mg2 01:09 Follow up: IV Status: Completed infusion; IV Intake: 500ml aa1 00:35 Drug: SOLU-Medrol 125 mg Route: IVP; Site: right wrist; mg2 01:09 Follow up: Response: No adverse reaction; Marked relief of symptoms aa1 01:10 Drug: NS 0.9% 1000 ml Route: IV; Rate: 125 ml/hr; Site: right wrist; aa1 02:48 Follow up: IV Status: Infusion continued upon admission aa1 Disposition: 03/16/19 00:19 Hospitalization ordered by Sarah Young for Inpatient Admission. Preliminary diagnosis are Chronic obstructive pulmonary disease with (acute) exacerbation, Fever, unspecified, Hypoxemia, Obesity, unspecified, Bandemia. - Bed requested for Telemetry/MedSurg (Inpatient). - Status is Inpatient Admission. aa1 - Condition is Fair. - Problem is new. - Symptoms have improved. UTI on Admission? No Signatures: Dispatcher [employer] EDMS Sheryl Olivia RN RN Pooja Bentley RN RN aa1 Po Toure MD MD cha Gardose, Michele RN RN mg2 Corrections: (The following items were deleted from the chart) 00:22 03/15 23:57 Rocephin - (cefTRIAXone) 2 grams IVPB once over 30 mins; (mix in 100 mL NS) aa1 ordered. [facility] [place] 03/16 01:23 00:19 Hospitalization Ordered by Sarah Young MD for Inpatient Admission. Preliminary [facility] [place] diagnosis is Chronic obstructive pulmonary disease with (acute) exacerbation; Fever, unspecified; Hypoxemia; Obesity, unspecified. Bed requested for Telemetry/MedSurg (Inpatient). Status is Inpatient Admission. Condition is Fair. Problem is new. Symptoms have improved. UTI on Admission? No. chato 02:09 01:23 03/16/2019 00:19 Hospitalization Ordered by Sarah Young MD for Inpatient Admission. Preliminary diagnosis is Chronic obstructive pulmonary disease with (acute) exacerbation; Fever, unspecified; Hypoxemia; Obesity, unspecified; Bandemia. Bed requested for Telemetry/MedSurg (Inpatient). Status is Inpatient Admission. Condition is Fair. Problem is new. Symptoms have improved. UTI on Admission? No. chato 02:51 02:09 03/16/2019 00:19 Hospitalization Ordered by Sarah Young MD for Inpatient aa1 Admission. Preliminary diagnosis is Chronic obstructive pulmonary disease with (acute) exacerbation; Fever, unspecified; Hypoxemia; Obesity, unspecified; Bandemia. Bed requested for Telemetry/MedSurg (Inpatient). Status is Inpatient Admission. Condition is Fair. Problem is new. Symptoms have improved. UTI on Admission? No. mw
[2019-03-16 00:33] LABS: Absolute Lymphocytes (CBC) 0.6 K/uL (0.7-4.9); Basophils % 0.1 % (0-1.3); Eosinophils % 1.5 % (0-4.4); Hematocrit 46.4 % (36.0-45.0); Lymphocytes % 6.4 % (15.3-44.8); MPV 7.9 fL (7.6-11.3); Monocytes % 3.7 % (3.3-12.3); Protime INR 0.98
[2019-03-16 00:39] LABS: Arterial Blood Carboxyhemoglob 0.9 % (0-1.5); Blood Gas Oxyhemoglobin 97.8 % (94-97); Blood O2 Saturation 99.6 % (92-98.5)
[2019-03-16] MEDS ORDERED: CEFTRIAXONE/SWI 1gm 2 GM/20 ML SYR ONE (00:43)
[2019-03-16 00:47] LABS: ALT/SGPT 20 U/L (12-78); AST/SGOT 25 U/L (15-37); Albumin 3.9 g/dL (3.4-5.0); Alkaline Phosphatase 142 U/L (45-117); BUN Blood Urea Nitrogen 12 mg/dL (7-18); Bicarbonate 27 mmol/L (21-32); Bilirubin Direct < 0.1 mg/dL (0-0.2); Bilirubin Total 0.6 mg/dL (0.2-1.0); Glucose Level 133 mg/dL (74-106); NT PRO-BNP 100 pg/mL (<125); Potassium 4.1 mmol/L (3.5-5.1); Protein, Total 7.8 g/dL (6.4-8.2); Sodium Level 138 mmol/L (136-145)
[2019-03-16] MEDS ORDERED: ONDANSETRON 4 MG/2 ML VIAL ONE (01:07)
[2019-03-16 01:14] LABS: Blood Morphology Comment NOT SEEN (NOT SEEN); Platelet Estimate ADEQ
[2019-03-16] MEDS ORDERED: ACETAMINOPHEN 500 MG TAB PO PRN (01:35)
[2019-03-16] MEDS: IPRATROPIUM BROM 0.5MG/2.5ML NEB SCH ×4 (02:00→19:25)
[2019-03-16] MEDS ORDERED: NA CHLORIDE 0.9% 1,000 ML IV SCH (02:00)
[2019-03-16] MEDS: ALBUTEROL 2.5 MG/3 ML NEB SOL NEB SCH ×4 (02:00→19:25)
[2019-03-16] MEDS: ALPRAZOLAM 0.25 MG TABLET PO PRN (04:17)
[2019-03-16 05:13] VITALS: BMI 44.3
[2019-03-16] MEDS ORDERED: METHYLPREDNISOLONE 125 MG INJ IV SCH (06:00)
[2019-03-16 06:46] LABS: NT PRO-BNP 117 pg/mL (<125); Troponin I < 0.02 ng/mL (0.0-0.045)
--- NOTE | 2019-03-16 09:10 | RAD REPORT ---
EXAM DESCRIPTION: RAD - Chest Single View - 03/16/2019 1:10 am CLINICAL HISTORY: COPD, chest pain, shortness of breath COMPARISON: June 2018 TECHNIQUE: AP portable chest image was obtained 0046 hours . FINDINGS: No acute lung parenchymal process. A few small granulomas are present. Lung markings match the prior study. Heart and vasculature are normal. No measurable pleural effusion and no pneumothorax. No acute bony abnormality seen. No acute aortic findings suspected. IMPRESSION: No acute cardiopulmonary process. No significant interval change.
[2019-03-16] MEDS ORDERED: ALBUTEROL INHALER 60 PUFF/8 GM IH PRN (09:16)
[2019-03-16] MEDS ORDERED: PROMETHAZINE 25 MG/ML VIAL IV PRN (09:27)
[2019-03-16] MEDS ORDERED: LEVALBUTEROL 0.63 MG/3 ML NEB NEB PRN (09:27)
[2019-03-16] MEDS: ENOXAPARIN 40 MG/0.4 ML SQ SCH (09:29)
--- NOTE | 2019-03-16 09:35 | P.HP ---
Certification for Inpatient Patient admitted to: Inpatient With expected LOS: >2 Midnights Patient will require the following post-hospital care: None Practitioner: I am a practitioner with admitting privileges, knowledge of patient current condition, hospital course, and medical plan of care. Services: Services provided to patient in accordance with Admission requirements found in Title 42 Section 412.3 of the Code of Federal Regulations Patient History Date of Service: 03/16/19 Reason for admission: COPD exacerbation History of Present Illness: Patient is a 58-year-old female who is well known to me from prior admissions. She came in with shortness of breath and was found to have COPD exacerbation. Patient was requiring BiPAP support because she was hypoxic. Patient was also febrile with a temp of a 102 and tachycardic. After BiPAP placement and IV steroids and neb treatments patient is feeling better. Will gradually wean her off the BiPAP. Patient has severe respiratory distress and is was not doing well on a 50% Ventimask so BiPAP was placed. At this time will continue with nebs, steroids, and antibiotics. Will get records from Pulmonary physician. Will admit patient to the hospital for further workup. Gradually wean off the BiPAP tonight. Patient will be admitted for inpatient hospitalization because of her degree of distress on admission. Allergies codeine [Codeine] Adverse Reaction (Mild, Verified 03/16/19 04:03) itch Home Medications: Albuterol Sulfate [Proair Hfa] 8.5 gm IH QID PRN 10/22/15 Atorvastatin Calcium 20 mg PO BEDTIME 10/10/17 Latanoprost Ophth [Xalatan 0.005%*] 1 gtt EACH EYE BEDTIME 10/10/17 Roflumilast [Daliresp*] 500 mcg PO DAILY 10/10/17 Umeclidinium Brm/Vilanterol Tr [Anoro Ellipta 62.5-25 Mcg INH] 1 puff IH DAILY 10/10/17 acetaZOLAMIDE [Diamox*] 125 mg PO BID #180 tab 02/20/18 Aspirin [Aspirin EC 81 MG] 81 mg PO BEDTIME 03/16/19 Brimonidine/Dorzolamide/Pf [Brimonidine 0.15%-Dorzolam 2%] 1 gtt OPTH BID Furosemide [Lasix*] 20 mg PO DAILY 03/16/19 Tramadol HCl [Ultram] 50 mg PO TID 03/16/19 - Past Medical/Surgical History Has patient received pneumonia vaccine in the past: No Diabetic: No -: Severe COPD, oxygen/steroid dependent,Pulmonary-Dr. Do -: Mild pulmonary hypertension -: Hypothyroidism -: Bipolar disorder -: Hypertension -: Chronic low back pain -: Obstructive sleep apnea -: Tobacco abuse -: HLD -: GERD -: Appendectomy -: Psychosocial/ Personal History: She lives with a partner. She has 1 child. She is currently disabled. - Family History Father Medical History: Heart disease, Hypertension, Diabetes Notes: from CHF Mother Medical History: Heart disease, Hypertension, Diabetes Notes: from CHF Brother Medical History: Diabetes Sister Medical History: Heart disease, Diabetes Notes: from CHF - Social History Smoking Status: Former smoker Alcohol use: Yes CD- Drugs: No Caffeine use: Yes Place of Residence: Home Review of Systems 10-point ROS is otherwise unremarkable Physical Examination - Vital Signs Temperature: 98.7 F Blood Pressure: 108/68 Pulse: 101 Respirations: 20 Pulse Ox (%): 99 - Physical Exam General: Alert, In no apparent distress, Oriented x3 HEENT: Atraumatic, PERRLA, Mucous membr. moist/pink, EOMI, Sclerae nonicteric Neck: Supple, 2+ carotid pulse no bruit, No LAD, Without JVD or thyroid abnormality Respiratory: Diminished, Expiratory wheezes Cardiovascular: Regular rate/rhythm, Normal S1 S2, No murmurs Gastrointestinal: Normal bowel sounds, Soft and benign, Non-distended, No tenderness, No rebound, No guarding Musculoskeletal: No clubbing, No swelling, No tenderness Integumentary: No rashes Neurological: Normal gait, Normal speech, Normal strength at 5/5 x4 extr, Normal tone, Sensation intact, Cranial nerves 3-12 intact, Normal affect Lymphatics: No axilla or inguinal lymphadenopathy - Studies Laboratory Data (last 24 hrs) 03/15/19 23:59: PT 11.6, INR 0.98 03/15/19 23:59: WBC 10.1, Hgb 14.8, Hct 46.4 H, Plt Count 188 03/15/19 23:59: Sodium 138, Potassium 4.1, BUN 12, Creatinine 0.91, Glucose 133 H, Magnesium 2.0, Total Bilirubin 0.6, AST 25, ALT 20, Alkaline Phosphatase 142 H Microbiology Data (last 24 hrs): 03/16/19 00:30 Nasopharnyx Influenza Type A Antigen Screen - Final 03/16/19 00:30 Nasopharnyx Influenza Type B Antigen Screen - Final Assessment & Plan - Problems (Diagnosis) (1) Acute exacerbation of chronic obstructive airways disease Onset Date: 05/09/15 Current Visit: No Status: Acute (2) Fever Onset Date: 01/19/18 Current Visit: No Status: Acute (3) Hypoxia Onset Date: 02/08/16 Current Visit: No Status: Acute (4) Obesity hypoventilation syndrome Current Visit: No Status: Acute (5) CHF (congestive heart failure) Onset Date: 05/09/15 Current Visit: No Status: Chronic Qualifiers: (6) Hypertension Onset Date: 03/20/17 Current Visit: No Status: Chronic Qualifiers: Hypertension type: essential hypertension (7) Hypothyroidism Onset Date: 09/12/14 Current Visit: No Status: Chronic Qualifiers: Hypothyroidism type: acquired Qualified Code(s): E03.9 - Hypothyroidism, unspecified - Plan - nebs, steroids, and antibiotics - O2 per protocol. - BiPAP support - CT of the abdomen to evaluate abdominal pain with distention - repeat chest x-ray - pulmonary consultation if symptoms do not improve Discharge Plan: Home Plan to discharge in: Greater than 2 days - Advance Directives Does patient have a Living Will: No Does patient have a Durable POA for Healthcare: No - Code Status/Comfort Care Code Status Assessed: Yes Code Status: Full Code Critical Care: No Time Spent Managing PTS Care (In Minutes): 50
[2019-03-16] MEDS: NA CHLORIDE 0.9% 1,000 ML IV SCH ×2 (09:43→21:34)
[2019-03-16] MEDS: MORPHINE 2 MG/ML SYR IV PRN ×3 (09:44→21:32)
[2019-03-16] MEDS: ONDANSETRON 4 MG/2 ML VIAL IV PRN (09:44)
[2019-03-16] MEDS: PANTOPRAZOLE 40MG TABLET PO SCH (09:45)
[2019-03-16 10:01] LABS: Urine Appearance CLEAR; Urine Bilirubin NEGATIVE (NEG); Urine Blood NEGATIVE (NEG); Urine Color YELLOW; Urine Glucose NEGATIVE (NEG); Urine Protein NEGATIVE (NEG); Urine Specific Gravity 1.015 (1.005-1.030); Urine Urobilinogen 0.2 mg/dL (0.2-1.0); Urine pH 5.5 (5.0-7.0)
[2019-03-16 10:50] LABS: Urine Microscopic Reflex NO UMIC
--- NOTE | 2019-03-16 14:49 | EKG ---
Test Date: 2019-03-16 Test Time: 00:11:34 Outboard Motorboat Rigger: A MEASUREMENT RESULTS: Intervals: Rate: 119 [place]: 152 QRSD: 86 QT: 326 QTc: 458 [place]: P: 80 [place]: 152 QRS: 78 T: 80 INTERPRETIVE STATEMENTS: Sinus tachycardia Otherwise normal ECG Compared to ECG 07/18/2018 13:16:46 Sinus rhythm no longer present Sinus arrhythmia no longer present Electronically Signed On 03-16-19 14:47:21 CDT by Selvin Mar
--- NOTE | 2019-03-16 15:06 | P.HP ---
Certification for Inpatient Patient admitted to: Observation With expected LOS: <2 Midnights Practitioner: I am a practitioner with admitting privileges, knowledge of patient current condition, hospital course, and medical plan of care. Services: Services provided to patient in accordance with Admission requirements found in Title 42 Section 412.3 of the Code of Federal Regulations Patient History Date of Service: 03/16/19 Primary Care Provider: Mina Reason for admission: gastroenteritis History of Present Illness: Patient of mine. She had one day of abdominal pain. She was getting some nausea and decided to come to the ER. No complaints of nausea or vomiting. No diarrhea. She states she was never short of breath or wheezing. The patient was admitted for copd. However she normally has chronic hypoxia. She denies any recent sick contacts. Has not been on steroids recently. She has stopped smoking several months ago. Allergies codeine [Codeine] Adverse Reaction (Mild, Verified 03/16/19 04:03) itch Home Medications: Albuterol Sulfate [Proair Hfa] 8.5 gm IH QID PRN 10/22/15 Atorvastatin Calcium 20 mg PO BEDTIME 10/10/17 Latanoprost Ophth [Xalatan 0.005%*] 1 gtt EACH EYE BEDTIME 10/10/17 Roflumilast [Daliresp*] 500 mcg PO DAILY 10/10/17 Umeclidinium Brm/Vilanterol Tr [Anoro Ellipta 62.5-25 Mcg INH] 1 puff IH DAILY 10/10/17 acetaZOLAMIDE [Diamox*] 125 mg PO BID #180 tab 02/20/18 Aspirin [Aspirin EC 81 MG] 81 mg PO BEDTIME 03/16/19 Brimonidine/Dorzolamide/Pf [Brimonidine 0.15%-Dorzolam 2%] 1 gtt OPTH BID Furosemide [Lasix*] 20 mg PO DAILY 03/16/19 Tramadol HCl [Ultram] 50 mg PO TID 03/16/19 - Past Medical/Surgical History Has patient received pneumonia vaccine in the past: No Diabetic: No -: Severe COPD, oxygen/steroid dependent,Pulmonary-Dr. Do -: Mild pulmonary hypertension -: Hypothyroidism -: Bipolar disorder -: Hypertension -: Chronic low back pain -: Obstructive sleep apnea -: Tobacco abuse -: HLD -: GERD -: Appendectomy -: Psychosocial/ Personal History: She lives with a partner. She has 1 child. She is currently disabled. - Family History Father -: Heart disease, Hypertension, Diabetes Notes: from CHF Mother -: Heart disease, Hypertension, Diabetes Notes: from CHF Brother -: Diabetes Sister -: Heart disease, Diabetes Notes: from CHF - Social History Smoking Status: Former smoker Alcohol use: Yes CD- Drugs: No Caffeine use: Yes Place of Residence: Home Review of Systems 10-point ROS is otherwise unremarkable Respiratory: Shortness of Breath (which is chronic) Gastrointestinal: Nausea, Abdominal Pain Physical Examination - Vital Signs Temperature: 97.3 F Blood Pressure: 115/64 Pulse: 76 Respirations: 18 Pulse Ox (%): 92 - Physical Exam General: Alert, In no apparent distress HEENT: Atraumatic, PERRLA, Mucous membr. moist/pink, EOMI, Sclerae nonicteric Neck: Supple, 2+ carotid pulse no bruit, No LAD, Without JVD or thyroid abnormality Respiratory: Clear to auscultation bilaterally, Normal air movement Cardiovascular: Regular rate/rhythm, Normal S1 S2 Gastrointestinal: Normal bowel sounds, No tenderness Musculoskeletal: Tenderness (mostly in the suprapubic area. However some generalized tenderness all over ) Integumentary: No rashes Neurological: Normal gait, Normal speech, Normal strength at 5/5 x4 extr, Normal tone, Normal affect Lymphatics: No axilla or inguinal lymphadenopathy - Studies Laboratory Data (last 24 hrs) 03/15/19 23:59: PT 11.6, INR 0.98 03/15/19 23:59: WBC 10.1, Hgb 14.8, Hct 46.4 H, Plt Count 188 03/15/19 23:59: Sodium 138, Potassium 4.1, BUN 12, Creatinine 0.91, Glucose 133 H, Magnesium 2.0, Total Bilirubin 0.6, AST 25, ALT 20, Alkaline Phosphatase 142 H Microbiology Data (last 24 hrs): 03/16/19 00:30 Nasopharnyx Influenza Type A Antigen Screen - Final 03/16/19 00:30 Nasopharnyx Influenza Type B Antigen Screen - Final Assessment and Plan - Problems (Diagnosis) (1) Gastroenteritis Current Visit: Yes Status: Acute Plan: will start feeding the patient. Hold the CT scan. Will check stool studies. Continue fluids. (2) Bipolar 1 disorder Onset Date: 09/12/14 Current Visit: No Status: Chronic Plan: she is currently stable. No signs of a manic episode. (3) COPD (chronic obstructive pulmonary disease) Onset Date: 10/23/15 Current Visit: No Status: Chronic Plan: Patient has mild baseline wheeze. She lives with a pulse ox in the 80's. Will hold the steroids. Will continue breathing treatments and azetalomide. Will adjust her treatments as necessary. Qualifiers: COPD type: chronic bronchitis Chronic bronchitis type: unspecified Qualified Code(s): J42 - Unspecified chronic bronchitis (4) Hypertension Onset Date: 03/20/17 Current Visit: No Status: Chronic Plan: continue home medications. Qualifiers: Hypertension type: essential hypertension Discharge Plan: Home Plan to discharge in: 24 Hours - Advance Directives Does patient have a Living Will: No Does patient have a Durable POA for Healthcare: No - Code Status/Comfort Care Code Status Assessed: No Code Status: Full Code Physician Review: Patient Assessed, Agree with Above Assessment and Plan Critical Care: No Time Spent Managing Pts Care (In Minutes): 45
[2019-03-16] MEDS ORDERED: ATORVASTATIN 20 MG TAB PO SCH (21:00)
[2019-03-16] MEDS ORDERED: LATANOPROST 0.005% OPTH SCH (21:00)
[2019-03-16] MEDS ORDERED: ASPIRIN EC 81 MG TAB PO SCH (21:00)
[2019-03-16] MEDS: acetaZOLAMIDE 250 MG TAB PO SCH (21:27)
[2019-03-16] MEDS: BRIMONIDINE 0.2% OPTH SCH (21:29)
[2019-03-17] MEDS: ALPRAZOLAM 0.25 MG TABLET PO PRN (00:35)
[2019-03-17] MEDS: ONDANSETRON 4 MG/2 ML VIAL IV PRN (00:36)
[2019-03-17] MEDS: IPRATROPIUM BROM 0.5MG/2.5ML NEB SCH ×3 (01:05→14:00)
[2019-03-17] MEDS: ALBUTEROL 2.5 MG/3 ML NEB SOL NEB SCH ×3 (01:05→14:00)
[2019-03-17] MEDS: MORPHINE 2 MG/ML SYR IV PRN ×2 (01:15→09:20)
[2019-03-17 06:04] LABS: Absolute Lymphocytes (CBC) 0.9 K/uL (0.7-4.9); Hematocrit 33.3 % (36.0-45.0); Lymphocytes % 12.8 % (15.3-44.8); MPV 8.4 fL (7.6-11.3); Monocytes % 6.1 % (3.3-12.3); RBC Red Blood Cell Count 3.89 M/uL (3.86-4.86)
[2019-03-17] MEDS: PANTOPRAZOLE 40MG TABLET PO SCH (06:11)
[2019-03-17 06:28] LABS: Bilirubin Total 0.2 mg/dL (0.2-1.0); Magnesium 2.2 mg/dL (1.8-2.4); Phosphorus 3.4 mg/dL (2.5-4.9); Potassium 4.1 mmol/L (3.5-5.1); Protein, Total 6.1 g/dL (6.4-8.2); Thyroid Stimulating Hormone 0.272 uIU/mL (0.360-3.740)
[2019-03-17 08:35] LABS: Platelet Estimate ADEQ; Urine White Blood Cell Casts OK
[2019-03-17 08:36] LABS: Blood Morphology Comment NOT SEEN (NOT SEEN)
--- NOTE | 2019-03-17 08:45 | P.DS ---
Admission Date: 03/16/19 Discharge Date: 03/17/19 Primary Care Provider: Mina Disposition: ROUTINE DISCHARGE Discharge Condition: GOOD Reason for Admission: gastroenteritis - Problems (1) Gastroenteritis Current Visit: Yes Status: Acute (2) Bipolar 1 disorder Onset Date: 09/12/14 Current Visit: No Status: Chronic (3) COPD (chronic obstructive pulmonary disease) Onset Date: 10/23/15 Current Visit: No Status: Chronic Qualifiers: COPD type: chronic bronchitis Chronic bronchitis type: unspecified Qualified Code(s): J42 - Unspecified chronic bronchitis (4) Hypertension Onset Date: 03/20/17 Current Visit: No Status: Chronic Qualifiers: Hypertension type: essential hypertension Brief History of Present Illness: Patient of mine. She had one day of abdominal pain. She was getting some nausea and decided to come to the ER. No complaints of nausea or vomiting. No diarrhea. She states she was never short of breath or wheezing. The patient was admitted for copd. However she normally has chronic hypoxia. She denies any recent sick contacts. Has not been on steroids recently. She has stopped smoking several months ago. Hospital Course: Patient is here for 1 day of abdominal pain. She has some anemia. Possible dilution due to the IV fluids. She is tolerating oral. on a clear liquid diet. However is getting sprite's. She has no wheezing. Will discharge when she is tolerating full or soft diet. Will have the patient follow up with us in the out patient setting. Vital Signs/Physical Exam: Temp Pulse Resp BP Pulse Ox 97.3 F 71 20 111/68 97 03/17/19 04:00 03/17/19 04:00 03/17/19 04:00 03/17/19 04:00 03/17/19 04:00 General: Alert, In no apparent distress HEENT: Atraumatic, PERRLA, EOMI Neck: Supple, JVD not distended Respiratory: Clear to auscultation bilaterally, Normal air movement Cardiovascular: Regular rate/rhythm, Normal S1 S2 Gastrointestinal: Normal bowel sounds, No tenderness Musculoskeletal: No tenderness Integumentary: No rashes Neurological: Normal speech, Normal tone, Normal affect Lymphatics: No axilla or inguinal lymphadenopathy Laboratory Data at Discharge: WBC 6.7 K/uL (4.3-10.9) D 03/17/19 05:18 Hgb 10.8 g/dL (12.0-15.0) L D 03/17/19 05:18 Hct 33.3 % (36.0-45.0) L D 03/17/19 05:18 Plt Count 162 K/uL (152-406) 03/17/19 05:18 PT 11.6 SECONDS (9.5-12.5) 03/15/19 23:59 INR 0.98 03/15/19 23:59 Sodium 140 mmol/L (136-145) 03/17/19 05:18 Potassium 4.1 mmol/L (3.5-5.1) 03/17/19 05:18 BUN 10 mg/dL (7-18) 03/17/19 05:18 Creatinine 0.81 mg/dL (0.55-1.3) 03/17/19 05:18 Glucose 137 mg/dL (74-106) H 03/17/19 05:18 Phosphorus 3.4 mg/dL (2.5-4.9) 03/17/19 05:18 Magnesium 2.2 mg/dL (1.8-2.4) 03/17/19 05:18 Total Bilirubin 0.2 mg/dL (0.2-1.0) 03/17/19 05:18 AST 17 U/L (15-37) 03/17/19 05:18 ALT 18 U/L (12-78) 03/17/19 05:18 Alkaline Phosphatase 88 U/L (45-117) 03/17/19 05:18 Troponin I < 0.02 ng/mL (0.0-0.045) 03/16/19 05:43 Triglycerides 128 mg/dL (<150) 03/17/19 05:18 Cholesterol 170 mg/dL (<200) 03/17/19 05:18 HDL Cholesterol 57 mg/dL (40-60) 03/17/19 05:18 Cholesterol/HDL Ratio 2.98 03/17/19 05:18 Home Medications: Albuterol Sulfate [Proair Hfa] 8.5 gm IH QID PRN 10/22/15 Atorvastatin Calcium 20 mg PO BEDTIME 10/10/17 Latanoprost Ophth [Xalatan 0.005%*] 1 gtt EACH EYE BEDTIME 10/10/17 Roflumilast [Daliresp*] 500 mcg PO DAILY 10/10/17 Umeclidinium Brm/Vilanterol Tr [Anoro Ellipta 62.5-25 Mcg INH] 1 puff IH DAILY 10/10/17 acetaZOLAMIDE [Diamox*] 125 mg PO BID #180 tab 02/20/18 Aspirin [Aspirin EC 81 MG] 81 mg PO BEDTIME 03/16/19 Brimonidine/Dorzolamide/Pf [Brimonidine 0.15%-Dorzolam 2%] 1 gtt OPTH BID Furosemide [Lasix*] 20 mg PO DAILY 03/16/19 Tramadol HCl [Ultram] 50 mg PO TID 03/16/19 Bismuth Subsalicylate [Bismatrol] 262 mg PO QID PRN 15 Days #60 tab.chew Promethazine HCl [Phenergan] 25 mg PO TIDP PRN 10 Days #30 supp.rect 03/17/19 New Medications: Bismuth Subsalicylate [Bismatrol] 262 mg PO QID PRN 15 Days #60 tab.chew PRN Reason: Abdominal Pain Promethazine HCl [Phenergan] 25 mg PO TIDP PRN 10 Days #30 supp.rect PRN Reason: Abdominal Pain Diet: Millard (stay on liquid/soft diet as an out patient) Activity: Ad kristopher Time spent managing pt's care (in minutes): 30
[2019-03-17] MEDS: acetaZOLAMIDE 250 MG TAB PO SCH (09:19)
[2019-03-17] MEDS: BRIMONIDINE 0.2% OPTH SCH (09:20)
[2019-03-17] MEDS: ENOXAPARIN 40 MG/0.4 ML SQ SCH (09:20)
[2019-03-17 10:56] VITALS: O2SAT 95
[2019-03-17 12:36] VITALS: BP 115/73; TEMP 97.4
== END 2019-03-17 15:17 | disposition home or self-care (01) | DRG 191 ==
LOC: ER 23:50 → ERHOLD 03-16 01:57 → 4TH 03-16 02:41
PROVIDERS: ADMIT Internal Medicine; ATTEND Internal Medicine
DX: J44.1 Chronic obstructive pulmonary disease with (acute) exacerbation (principal); E66.2 Morbid (severe) obesity with alveolar hypoventilation; Z68.41 Body mass index [BMI] 40.0-44.9, adult; K52.9 Noninfective gastroenteritis and colitis, unspecified; F31.9 Bipolar disorder, unspecified; I27.20 Pulmonary hypertension, unspecified; E03.9 Hypothyroidism, unspecified; K21.9 Gastro-esophageal reflux disease without esophagitis; E78.5 Hyperlipidemia, unspecified; I11.0 Hypertensive heart disease with heart failure; I50.9 Heart failure, unspecified; D64.9 Anemia, unspecified; G89.29 Other chronic pain; M54.5 Low back pain; Z79.82 Long term (current) use of aspirin; Z79.51 Long term (current) use of inhaled steroids; Z87.891 Personal history of nicotine dependence
CPT/HCPCS: 36415; 71045; 80048; 80053; 80061; 80076; 81003; 82274; 82805; 83605; 83735; 83880; 84100; 84145; 84443; 84484; 85025; 85610; 87040; 87045; 87046; 87177; 87209; 87493; 87804; 89055; 93005; 94640; 94660; 94760; 96361; 96365; 96375; 99285; J0456; J0696; J1100; J1650; J2270; J2405; J2550; J2930; J7030

== ENCOUNTER 2019-04-29 17:41 | Inpatient (IN) | payer OTHER ==
--- OUTSIDE RECORDS SUMMARY | 2019-04-29 17:43 | XMS REPORT | Clinical Summary ---
:1960 Author Organization [facility] Address [address] [place] [address] Care Team Providers Name Role Phone Unavailable [...] Not on file Results Not on fileafter 04/28/2018 Insurance Payer Benefit Plan / Subscriber ID Type Phone Address Group MEDICAID - MEDICAID [facility] xxxxxxxxx Medicaid Contracted MGD CARE PLAN [employer] (Home) [place] [address] Advance Directives For more information, please contact:[facility] [employer] [phone] Code Status Date Activated Date Inactivated Comments Full Code 02/24/2017 8:19 AM 02/26/2017 1:59 PM This code status was determined by: Patient
--- OUTSIDE RECORDS SUMMARY | 2019-04-29 17:43 | XMS REPORT ---
:1960 [facility] [place] [address] Care Team Providers Name Role Phone HESHAM [...] Comments SODIUM (BEAKER) (test 139 meq/L 136-145 ytbb=577) POTASSIUM (BEAKER) (test 3.5 meq/L 3.5-5.1 pciz=301) CHLORIDE (BEAKER) (test 95 meq/L 98-107 kzxj=630) CO2 (BEAKER) (test dycf=956) 40 meq/L 22-29 BLOOD UREA NITROGEN (BEAKER) 14 mg/dL 7-21 (test bwsl=531) CREATININE (BEAKER) (test 0.64 mg/dL 0.57-1.25 jtek=300) GLUCOSE RANDOM (BEAKER) 92 mg/dL 70-105 (test fjxg=950) CALCIUM (BEAKER) (test 8.4 mg/dL 8.4-10.2 bpoz=173) EGFR (BEAKER) (test 96 mL/min/1.73 sq m ESTIMATED GFR IS NOT xula=1379) ACCURATE CREATININE CLEARANCE IN PREDICTING GLOMERULAR FILTRATION RATE. ESTIMATED GFR IS NOT APPLICABLE FOR DIALYSIS PATIENTS. CBC (HEMOGRAM ONLY)2017-02-26 05:21:00 Test Item Value Reference Range Comments WHITE BLOOD CELL COUNT (BEAKER) (test jmqh=339) 6.4 K/ L 4.0-10.0 RED BLOOD CELL COUNT (BEAKER) (test fnmx=135) 4.17 M/ L 4.00-5.00 HEMOGLOBIN (BEAKER) (test mjou=568) 12.0 GM/DL 12.0-15.0 HEMATOCRIT (BEAKER) (test pmrm=222) 39.4 % 36.0-45.0 MEAN CORPUSCULAR VOLUME (BEAKER) (test dnww=537) 94.4 fL 82.0-99.0 MEAN CORPUSCULAR HEMOGLOBIN (BEAKER) (test 28.8 pg 27.0-33.0 kdps=539) MEAN CORPUSCULAR HEMOGLOBIN CONC (BEAKER) (test 30.5 GM/DL 32.0-36.0 pquz=854) RED CELL DISTRIBUTION WIDTH (BEAKER) (test 13.1 % 10.3-14.2 baqb=331) PLATELET COUNT (BEAKER) (test tvoj=913) 137 K/CU MM 150-430 MEAN PLATELET VOLUME (BEAKER) (test gxxl=798) 7.2 fL 6.5-10.5 NUCLEATED RED BLOOD CELLS (BEAKER) (test 0 /100 WBC 0-0 eazy=278) 0.00POCT-GLUCOSE [id number] 17:50:00 Test Item Value Reference Range Comments POC-GLUCOSE METER (BEAKER) 118 mg/dL 70-110 TESTED AT [address] (test epqe=9325) [place] [id number] POCT-GLUCOSE [id number] 11:59:00 Test Item Value Reference Range Comments POC-GLUCOSE METER (BEAKER) 247 mg/dL 70-110 TESTED AT [address] (test bufe=5605) [place] [id number] POCT-GLUCOSE [id number] 07:54:00 Test Item Value Reference Range Comments POC-GLUCOSE METER (BEAKER) 141 mg/dL 70-110 TESTED AT [address] (test rweh=8174) [place] [id number] CBC W/PLT COUNT & AUTO [id number] 03:45:00 Test Item Value Reference Range Comments WHITE BLOOD CELL COUNT (BEAKER) (test oasf=439) 4.9 K/ L 4.0-10.0 RED BLOOD CELL COUNT (BEAKER) (test ydis=181) 4.03 M/ L 4.00-5.00 HEMOGLOBIN (BEAKER) (test zwvi=353) 12.2 GM/DL 12.0-15.0 HEMATOCRIT (BEAKER) (test spag=314) 37.3 % 36.0-45.0 MEAN CORPUSCULAR VOLUME (BEAKER) (test ngfr=168) 92.5 fL 82.0-99.0 MEAN CORPUSCULAR HEMOGLOBIN (BEAKER) (test 30.3 pg 27.0-33.0 xkvi=581) MEAN CORPUSCULAR HEMOGLOBIN CONC (BEAKER) (test 32.8 GM/DL 32.0-36.0 sfdx=261) RED CELL DISTRIBUTION WIDTH (BEAKER) (test 14.3 % 10.3-14.2 ambq=179) PLATELET COUNT (BEAKER) (test lhvd=287) 122 K/CU MM 150-430 MEAN PLATELET VOLUME (BEAKER) (test mkzk=559) 8.0 fL 6.5-10.5 NUCLEATED RED BLOOD CELLS (BEAKER) (test 0 /100 WBC 0-0 cfrr=763) NEUTROPHILS RELATIVE PERCENT (BEAKER) (test 88 % feng=593) LYMPHOCYTES RELATIVE PERCENT (BEAKER) (test 10 % wgtr=408) MONOCYTES RELATIVE PERCENT (BEAKER) (test 2 % dsea=838) EOSINOPHILS RELATIVE PERCENT (BEAKER) (test 0 % tdap=347) BASOPHILS RELATIVE PERCENT (BEAKER) (test 0 % xiop=489) NEUTROPHILS ABSOLUTE COUNT (BEAKER) (test 4.32 K/ L 1.80-8.00 zjev=255) LYMPHOCYTES ABSOLUTE COUNT (BEAKER) (test 0.49 K/ L 1.48-4.50 hptf=700) MONOCYTES ABSOLUTE COUNT (BEAKER) (test 0.09 K/ L 0.00-1.30 joam=018) EOSINOPHILS ABSOLUTE COUNT (BEAKER) (test 0.02 K/ L 0.00-0.50 easo=711) BASOPHILS ABSOLUTE COUNT (BEAKER) (test 0.01 K/ L 0.00-0.20 vuim=422) [id number] 03:29:00 Test Item Value Reference Range Comments MAGNESIUM (BEAKER) (test 1.8 mg/dL 1.6-2.6 Specimen slightly hemolyzed ktpa=086) BASIC METABOLIC [id number] 03:29:00 Test Item Value Reference Range Comments SODIUM (BEAKER) (test 139 meq/L 136-145 hqqf=028) POTASSIUM (BEAKER) (test 4.4 meq/L 3.5-5.1 Specimen slightly mppu=464) hemolyzed CHLORIDE (BEAKER) (test 93 meq/L 98-107 ekhm=211) CO2 (BEAKER) (test 39 meq/L 22-29 ppeo=749) BLOOD UREA NITROGEN 15 mg/dL 7-21 (BEAKER) (test yudb=298) CREATININE (BEAKER) (test 0.67 mg/dL 0.57-1.25 Specimen slightly qxsq=269) hemolyzed GLUCOSE RANDOM (BEAKER) 150 mg/dL 70-105 (test qqkr=852) CALCIUM (BEAKER) (test 8.6 mg/dL 8.4-10.2 myzi=654) EGFR (BEAKER) (test 91 mL/min/1.73 sq m ESTIMATED GFR IS NOT otkz=3334) ACCURATE CREATININE CLEARANCE IN PREDICTING GLOMERULAR FILTRATION RATE. ESTIMATED GFR IS NOT APPLICABLE FOR DIALYSIS PATIENTS. POCT-GLUCOSE [id number] 00:05:00 Test Item Value Reference Range Comments POC-GLUCOSE METER (BEAKER) 117 mg/dL 70-110 TESTED AT [address] (test srwb=2618) [facility] [address] POCT-GLUCOSE [id number] 18:17:00 Test Item Value Reference Range Comments POC-GLUCOSE METER (BEAKER) 141 mg/dL 70-110 TESTED AT [address] (test aqiq=6328) [place] [id number] CREATINE KINASE (CK), TOTAL AND [id number] 15:43:00 Test Item Value Reference Range Comments CREATINE KINASE TOTAL (BEAKER) (test cfqa=944) 31 U/L 29-200 CREATINE KINASE-MB (BEAKER) (test zceo=984) 1.3 ng/mL 0.0-6.6 CREATINE KINASE-MB INDEX (BEAKER) (test itmd=463) 4.2 % Effective 08/09/2014: CK-MB Reference Range ChangeNew: 0.0-6.6 Previous: 0.0- 4.9CK-MB Reference Range:<6.7 Normal6.7-10.0 Borderline>10.0 AbnormalBLOOD GAS, [id number] 15:26:00 Test Item Value Reference Range Comments PH ARTERIAL (BEAKER) (test gllt=412) 7.41 7.35-7.45 PCO2 ARTERIAL (BEAKER) (test sdec=513) 68 mmHg 35-45 PO2 ARTERIAL (BEAKER) (test uztz=733) 67 mmHg 80-90 O2 SATURATION ARTERIAL (BEAKER) (test sylc=939) 92.2 % 96.0-97.0 HCO3 ARTERIAL (BEAKER) (test reyc=197) 42 mmol/L 21-29 BASE EXCESS ARTERIAL (BEAKER) (test uaqc=993) 14.8 mmol/L -2.0-3.0 PATIENT TEMPERATURE (BEAKER) (test rvxu=1542) 37.5 C FIO2 (BEAKER) (test qzyn=7166) 35.0 % POCT-GLUCOSE [id number] 11:45:00 Test Item Value Reference Range Comments POC-GLUCOSE METER (BEAKER) 122 mg/dL 70-[address] [facility] [address] [facility] (test pods=6123) [facility] [address] CREATINE KINASE (CK), TOTAL AND [id number] 10:29:00 Test Item Value Reference Range Comments CREATINE KINASE TOTAL (BEAKER) (test ecty=960) 31 U/L 29-200 CREATINE KINASE-MB (BEAKER) (test qtvj=136) 1.5 ng/mL 0.0-6.6 CREATINE KINASE-MB INDEX (BEAKER) (test sjsh=783) 4.8 % Effective 08/09/2014: CK-MB Reference Range ChangeNew: 0.0-6.6 Previous: 0.0- 4.9CK-MB Reference Range:<6.7 Normal6.7-10.0 Borderline>10.0 AbnormalTROPONIN [id number] 10:29:00 Test Item Value Reference Range Comments TROPONIN I (BEAKER) (test rpgz=606) < ng/mL 0.00-0.03 Effective 08/09/2014: Reference Range [...] renalfailure, acidosis, acute neurological disease, and persistent tachyarrhythmia.[id number] 10:22:00 Test Item Value Reference Range Comments PARTIAL THROMBOPLASTIN TIME (BEAKER) (test 22.5 seconds 22.5-36.0 updw=557) PROTHROMBIN TIME/[id number] 10:21:00 Test Item Value Reference Range Comments PROTIME (BEAKER) (test xlar=336) 12.4 seconds 11.7-14.7 INR (BEAKER) (test fcwd=605) 0.9 <=5.9 RECOMMENDED COUMADIN/WARFARIN INR THERAPY RANGESSTANDARD DOSE: 2.0 - 3.0 Includes: PROPHYLAXIS forvenous thrombosis, systemic embolization; TREATMENT for venous thrombosis and/or pulmonary embolus.HIGH RISK: Target INR is 2.5-3.5 for patients with mechanical heart valves.BLOOD GAS, [id number] 10:17:00 Test Item Value Reference Range Comments PH ARTERIAL (BEAKER) (test frnf=793) 7.42 7.35-7.45 PCO2 ARTERIAL (BEAKER) (test kvlw=593) 63 mmHg 35-45 PO2 ARTERIAL (BEAKER) (test ssqw=990) 51 mmHg 80-90 O2 SATURATION ARTERIAL (BEAKER) (test bidm=462) 85.7 % 96.0-97.0 HCO3 ARTERIAL (BEAKER) (test qxxm=443) 40 mmol/L 21-29 BASE EXCESS ARTERIAL (BEAKER) (test gkeh=582) 12.7 mmol/L -2.0-3.0 PATIENT TEMPERATURE (BEAKER) (test xwep=0251) 37.0 C FIO2 (BEAKER) (test adxg=3220) 40.0 % PLATELET [id number] 10:13:00 Test Item Value Reference Range Comments PLATELET COUNT (BEAKER) (test wmjj=311) 111 K/CU MM 150-430
[2019-04-29] MEDS ORDERED: ALBUTEROL 2.5 MG/3 ML NEB SOL ONE (17:46)
[2019-04-29] MEDS ORDERED: IPRATROPIUM BROM 0.5MG/2.5ML ONE (17:46)
[2019-04-29] MEDS ORDERED: Magnesium Sulfate 2gm IVPB 2 G/50 ML BAG IV ONE (17:48)
[2019-04-29] MEDS ORDERED: FUROSEMIDE 100 MG/10 ML VIAL IV ONE (17:48)
[2019-04-29 18:08] LABS: Arterial Blood Carboxyhemoglob 0.9 % (0-1.5); Blood Gas Oxyhemoglobin 97.2 % (94-97); Blood O2 Saturation 98.8 % (92-98.5)
[2019-04-29 18:18] LABS: Absolute Lymphocytes (CBC) 2.2 K/uL (0.7-4.9); Basophils % 0.2 % (0-1.3); Hematocrit 42.2 % (36.0-45.0); Lymphocytes % 17.9 % (15.3-44.8); MPV 8.4 fL (7.6-11.3); Protime INR 0.97; RBC Red Blood Cell Count 4.93 M/uL (3.86-4.86)
[2019-04-29 18:34] LABS: ALT/SGPT 24 U/L (12-78); AST/SGOT 16 U/L (15-37); Albumin 3.9 g/dL (3.4-5.0); Alkaline Phosphatase 135 U/L (45-117); BUN Blood Urea Nitrogen 7 mg/dL (7-18); Bicarbonate 32 mmol/L (21-32); Bilirubin Direct 0.1 mg/dL (0-0.2); Bilirubin Total 0.8 mg/dL (0.2-1.0); Glucose Level 137 mg/dL (74-106); Magnesium 2.2 mg/dL (1.8-2.4); NT PRO-BNP 91 pg/mL (<125); Potassium 3.9 mmol/L (3.5-5.1); Sodium Level 143 mmol/L (136-145); Troponin (Emerg Dept Use Only) < 0.02 ng/mL (0.0-0.045)
--- NOTE | 2019-04-29 19:05 | RAD REPORT ---
EXAM DESCRIPTION: RAD - Chest Single View - 04/29/2019 6:02 pm CLINICAL HISTORY: Dyspnea COMPARISON: March 16 TECHNIQUE: AP portable chest image was obtained 1759 hours . FINDINGS: No focal lung parenchymal process. Body habitus and under penetrated portable technique ac centuate lung base markings. True change is not suspected. Heart and vasculature are normal. No measurable pleural effusion and no pneumothorax. No acute bony abnormality seen. No acute aortic findings suspected. IMPRESSION: No acute cardiopulmonary process. No significant change from comparison.
[2019-04-29] MEDS ORDERED: LORazepam 2 MG/ML VIAL ONE (19:25)
--- NOTE | 2019-04-29 19:27 | ER ---
Nurse's Notes [facility] Name: Vikki Zamudio Age: 58 yrs Sex: Female : 1960 Arrival Date: 04/29/2019 Time: 17:45 Bed 3 Private MD: Diagnosis: Acute and chronic respiratory failure with hypercapnia;Chronic obstructive pulmonary disease with (acute) exacerbation Presentation: 04/29 17:39 Presenting complaint: EMS states: SOB x1 day and low back pain; was 60% RA, wears O2 sv via NC. BP 137/91 HR-114. Transition of care: patient was not received from another setting of care. Onset of symptoms was April 29, 2019. Risk Assessment: Do you want to hurt yourself or someone else? Patient reports no desire to harm self or others. Initial Sepsis Screen: Does the patient meet any 2 criteria? RR > 20 per min. HR > 90 bpm. Yes Does the patient have a suspected source of infection? No. Patient's initial sepsis screen is negative. Care prior to arrival: Medication(s) given: Albuterol Neb x 1, Atrovent Neb x 1, Solumedrol 125 mg IVP. 17:39 Method Of Arrival: EMS: [facility] sv 17:39 Acuity: LIZETH 1 sv Triage Assessment: 17:40 General: Appears distressed, obese, well developed, Behavior is appropriate for age, sv anxious. Pain: Denies pain. Neuro: Level of Consciousness is awake, alert, obeys commands, Oriented to person, place, time, situation, Moves all extremities. Respiratory: Reports shortness of breath labored breathing Airway is patent Respiratory effort is labored, with nasal flaring, pursed lip, Respiratory pattern is regular, tachypnea Onset: The symptoms/episode began/occurred yesterday, the patient has severe shortness of breath. Derm: Skin is pink, warm \T\ dry. Historical: - Allergies: 17:48 Codeine; sv - PMHx: 17:48 CHF; COPD; GERD; High Cholesterol; Hypertension; Hypothyroidism; Panic Attacks; Sleep sv Apnea; - Immunization history:: Adult Immunizations up to date. - Ebola Screening: : No symptoms or risks identified at this time. - Social history:: Smoking status: Patient/guardian denies using tobacco. Screenin:51 Abuse screen: Denies threats or abuse. Denies injuries from another. Nutritional sv screening: No deficits noted. Tuberculosis screening: No symptoms or risk factors identified. Fall Risk None identified. Assessment: 18:00 Reassessment: Patient appears in no apparent distress at this time. Patient and/or sv family updated on plan of care and expected duration. Pain level reassessed. Patient states feeling better. Patient states symptoms have improved. Respiratory: Airway is patent Respiratory effort is even, unlabored, Respiratory pattern is symmetrical, tachypnea the patient has mild shortness of breath. 18:20 Reassessment: Patient appears in no apparent distress at this time. Patient and/or sv family updated on plan of care and expected duration. Pain level reassessed. Patient is alert, oriented x 3, equal unlabored respirations, skin warm/dry/pink. Requesting pain medication for her chest pain. Informed Malachi LIMON Patient states symptoms have improved. 19:10 General: Appears uncomfortable, Behavior is cooperative. Pain: Denies pain. Neuro: ea Level of Consciousness is awake, alert, obeys commands, Oriented to person, place, time, situation. Cardiovascular: Patient's skin is warm and dry. Cardiovascular: Patient's skin is warm and dry. Respiratory: Airway is patent Respiratory effort is even, unlabored, Respiratory pattern is symmetrical, tachypnea Breath sounds are diminished bilaterally. the patient has mild shortness of breath. Derm: Skin is pink, warm \T\ dry. Musculoskeletal: Circulation, motion, and sensation intact. 20:15 Reassessment: Patient and/or family updated on plan of care and expected duration. Pain ea level reassessed. Patient is alert, oriented x 3, equal unlabored respirations, skin warm/dry/pink. Report called to receiving nurse on second floor. 20:42 Reassessment: Patient and/or family updated on plan of care and expected duration. Pain ea level reassessed. Pt alert and oriented x 3, respirations even and unlabored. Respiratory at bedside, placed pt on Venturi mask for tranfer, pt left ED via stretcher, per range technician, pt tolerating well. Vital Signs: 17:45 BP 111 / 94; Pulse 117; Resp 42; Pulse Ox 100% on BiPAP; Weight 122 kg; Height 5 ft. 9 sv in. (175.26 cm); 18:36 Pulse 105; Resp 22; Pulse Ox 99% on 40% BiPAP; sv 19:04 BP 137 / 95; Pulse 99; Resp 20; Pulse Ox 98% on 40% BiPAP; sv 20:22 BP 140 / 91; Pulse 92; Resp 18; Pulse Ox 95% on BiPAP; ea 20:40 BP 148 / 80; Pulse 90; Resp 22; Temp 98; Pulse Ox 96% on BiPAP; ea 17:45 Body Mass Index 39.72 (122.00 kg, 175.26 cm) sv ED Course: 17:39 Maintain EMS IV. Dressing intact. Site clean \T\ dry. Gauge \T\ site: 20G R AC. sv 17:40 loss prevention consultant on. Pulse ox on. NIBP on. Head of bed elevated. sv 17:45 Patient arrived in ED. sv 17:45 Reena Jarrell RN is Primary Nurse. sv 17:46 Malachi Falk PA is PHCP. jr8 17:46 Andrea Willson MD is Attending Physician. jr8 17:48 Triage completed. sv 17:49 BIPAP Sent. hb 17:50 Arm band placed on. sv 17:51 Patient has correct armband on for positive identification. Bed in low position. Call sv light in reach. Side rails up X2. 17:52 EKG done, by security system technician. reviewed by Malachi LIMON. at1 17:58 X-ray(s) taken. sv 18:01 XRAY Chest (1 view) In Process Unspecified. EDMS 18:02 Inserted saline lock: 20 gauge in left wrist, using aseptic technique. Blood collected. sg IV inserted by DULCE Kapoor. 18:37 Awaiting lab results, Awaiting radiology results. sv 19:07 Primary Nurse role handed off by Reena Jarrell RN sv 19:22 Mary Ellen Villanueva, DULCE is Primary Nurse. ea 19:25 Chris Enriquez MD is Hospitalizing Provider. jr8 20:15 No provider procedures requiring assistance completed. Patient admitted, IV remains in ea place. Administered Medications: 17:52 Drug: Lasix 60 mg Route: IVP; Site: right antecubital; hb 18:36 Follow up: Response: No adverse reaction sv 17:53 Drug: Albuterol - atroVENT (3:1) (2.5 mg - 0.5 mg) 3 ml Route: Nebulizer; sv 18:36 Follow up: Response: No adverse reaction sv 18:05 Drug: Magnesium Sulfate 2 grams Route: IVPB; Infused Over: 2 hrs; Site: left wrist; hb 19:55 Follow up: Response: No adverse reaction; IV Status: Completed infusion ea 19:20 Drug: Ativan 1 mg Route: IVP; Site: left antecubital; ea 20:24 Follow up: Response: Marked relief of symptoms ea Outcome: 19:25 Decision to Hospitalize by Provider. diane 20:15 Condition: stable ea 20:15 Instructed on the need for admit. 20:46 Admitted to Med/surg accompanied by tech, via stretcher, room 413, with oxygen, with ea chart, Report called to Receiving nurse on second floor 20:48 Patient left the ED. ea Signatures: Dispatcher [employer] EDReena Montesinos, RN Andre Dowell RN RN Malachi Agrawal PA PA jr8 Marleny Davenport, container finisher EKG Tat1 Emelia Aburto RN RN Mary Ellen Villanueva RN RN ea Corrections: (The following items were deleted from the chart) 17:50 17:45 BP 111 / 94; Pulse 117bpm; Resp 42bpm; Pulse Ox 100% BiPAP; sv sv
--- NOTE | 2019-04-29 19:27 | EDPHYS ---
Physician Documentation [facility] Name: Vikki Zamudio Age: 58 yrs Sex: Female : 1960 Arrival Date: 04/29/2019 Time: 17:45 Bed 3 Private MD: ED Physician Andrea Willson HPI: 04/29 18:45 This 58 yrs old Female presents to ER via EMS with complaints of Shortness Of jr8 Breath. 18:45 The patient has shortness of breath at rest. Onset: The symptoms/episode began/occurred jr8 suddenly, yesterday, and became worse and became persistent. Duration: The symptoms are continuous. The patient's shortness of breath is aggravated by talking, walking. Associated signs and symptoms: The patient has no apparent associated signs or symptoms. Severity of symptoms: At their worst the symptoms were moderate in the emergency department the symptoms are unchanged. The patient has experienced similar episodes in the past, a few times. The patient has not recently seen a physician. 18:45 Patient with history of CHF and COPD. Started to have shortness of breath last night. jr8 Worse throughout today. Historical: - Allergies: 17:48 Codeine; sv - PMHx: 17:48 CHF; COPD; GERD; High Cholesterol; Hypertension; Hypothyroidism; Panic Attacks; Sleep sv Apnea; - Immunization history:: Adult Immunizations up to date. - Ebola Screening: : No symptoms or risks identified at this time. - Social history:: Smoking status: Patient/guardian denies using tobacco. ROS: 19:23 Eyes: Negative for injury, pain, redness, and discharge, ENT: Negative for injury, jr8 pain, and discharge, Neck: Negative for injury, pain, and swelling, Cardiovascular: Negative for chest pain, palpitations, and edema, Abdomen/GI: Negative for abdominal pain, nausea, vomiting, diarrhea, and constipation, Back: Negative for injury and pain, MS/Extremity: Negative for injury and deformity, Skin: Negative for injury, rash, and discoloration, Neuro: Negative for headache, weakness, numbness, tingling, and seizure. 19:23 Respiratory: Positive for dyspnea on exertion, shortness of breath. Exam: 19:23 Eyes: Pupils equal round and reactive to light, extra-ocular motions intact. Lids and jr8 lashes normal. Conjunctiva and sclera are non-icteric and not injected. Cornea within normal limits. Periorbital areas with no swelling, redness, or edema. ENT: Nares patent. No nasal discharge, no septal abnormalities noted. Tympanic membranes are normal and external auditory canals are clear. Oropharynx with no redness, swelling, or masses, exudates, or evidence of obstruction, uvula midline. Mucous membranes moist. Neck: Trachea midline, no thyromegaly or masses palpated, and no cervical lymphadenopathy. Supple, full range of motion without nuchal rigidity, or vertebral point tenderness. No Meningismus. Cardiovascular: Regular rate and rhythm with a normal S1 and S2. No gallops, murmurs, or rubs. Normal PMI, no JVD. No pulse deficits. Abdomen/GI: Soft, non-tender, with normal bowel sounds. No distension or tympany. No guarding or rebound. No evidence of tenderness throughout. Back: No spinal tenderness. No costovertebral tenderness. Full range of motion. Skin: Warm, dry with normal turgor. Normal color with no rashes, no lesions, and no evidence of cellulitis. MS/ Extremity: Pulses equal, no cyanosis. Neurovascular intact. Full, normal range of motion. Neuro: Awake and alert, GCS 15, oriented to person, place, time, and situation. Cranial nerves II-XII grossly intact. Motor strength 5/5 in all extremities. Sensory grossly intact. Cerebellar exam normal. Normal gait. 19:23 Respiratory: moderate respiratory distress is noted, Respirations: labored breathing, tachypnea, Breath sounds: decreased breath sounds, that are moderate, are scattered. Vital Signs: 17:45 BP 111 / 94; Pulse 117; Resp 42; Pulse Ox 100% on BiPAP; Weight 122 kg; Height 5 ft. 9 sv in. (175.26 cm); 18:36 Pulse 105; Resp 22; Pulse Ox 99% on 40% BiPAP; sv 19:04 BP 137 / 95; Pulse 99; Resp 20; Pulse Ox 98% on 40% BiPAP; sv 20:22 BP 140 / 91; Pulse 92; Resp 18; Pulse Ox 95% on BiPAP; ea 20:40 BP 148 / 80; Pulse 90; Resp 22; Temp 98; Pulse Ox 96% on BiPAP; ea 17:45 Body Mass Index 39.72 (122.00 kg, 175.26 cm) sv MDM: 17:46 Patient medically screened. [facility] 19:23 Data reviewed: vital signs, nurses notes, lab test result(s), EKG, radiologic studies, 8 plain films. Data interpreted: Pulse oximetry: on room air is 60 %. Interpretation: hypoxia. Counseling: I had a detailed discussion with the patient and/or guardian regarding: the historical points, exam findings, and any diagnostic results supporting the discharge/admit diagnosis, lab results, radiology results, the need for further work-up and treatment in the hospital. Physician consultation: Chris Enriquez MD was called at 19:24, was contacted at 19:24, regarding admission, to the telemetry unit. consult, patient's condition, and will see patient. 04/29 17:46 Order name: Basic Metabolic Panel; Complete Time: 18:42 04/29 17:46 Order name: CBC with Diff; Complete Time: 18:22 04/29 17:46 Order name: LFT's; Complete Time: 18:42 04/29 17:46 Order name: Magnesium; Complete Time: 18:42 04/29 17:46 Order name: NT PRO-BNP; Complete Time: 18:42 04/29 17:46 Order name: PT-INR; Complete Time: 18:22 04/29 17:46 Order name: Troponin (emerg Dept Use Only); Complete Time: 18:42 04/29 17:46 Order name: XRAY Chest (1 view); Complete Time: 19:22 04/29 17:47 Order name: BIPAP 04/29 17:47 Order name: ABG 04/29 19:29 Order name: Urine Dipstick--Ancillary (enter results); Complete Time: 19:59 cm6 04/29 17:46 Order name: EKG; Complete Time: 17:48 04/29 17:46 Order name: Cardiac monitoring; Complete Time: 17:49 04/29 17:46 Order name: EKG - Nurse/Tech; Complete Time: 17:56 04/29 17:46 Order name: IV Saline Lock; Complete Time: 17:56 04/29 17:46 Order name: Labs collected and sent; Complete Time: 18:05 /08 17:46 Order name: O2 Per Protocol; Complete Time: 17:49 8 04/29 17:46 Order name: O2 Sat Monitoring; Complete Time: 17:49 8 Administered Medications: 17:52 Drug: Lasix 60 mg Route: IVP; Site: right antecubital; hb 18:36 Follow up: Response: No adverse reaction sv 17:53 Drug: Albuterol - atroVENT (3:1) (2.5 mg - 0.5 mg) 3 ml Route: Nebulizer; sv 18:36 Follow up: Response: No adverse reaction sv 18:05 Drug: Magnesium Sulfate 2 grams Route: IVPB; Infused Over: 2 hrs; Site: left wrist; hb 19:55 Follow up: Response: No adverse reaction; IV Status: Completed infusion ea 19:20 Drug: Ativan 1 mg Route: IVP; Site: left antecubital; ea 20:24 Follow up: Response: Marked relief of symptoms ea Disposition: 04/30 08:11 Co-signature as Attending Physician, Andrea Willson MD I agree with the assessment and kdr plan of care. PA/FLAG CAR DRIVER's history reviewed, patient interviewed, and examined. Disposition: 04/29/19 19:25 Hospitalization ordered by Chris Enriquez for Inpatient Admission. Preliminary diagnosis are Acute and chronic respiratory failure with hypercapnia, Chronic obstructive pulmonary disease with (acute) exacerbation. - Bed requested for Telemetry/MedSurg (Inpatient). - Status is Inpatient Admission. ea - Condition is Stable. - Problem is new. - Symptoms have improved. UTI on Admission? No Signatures: Dispatcher [employer] [facility] Reena Jarrell RN RN sv Webb, Martha, RN RN Andrea Willson MD MD kdr Roszak, Josh, PA PA jr8 Emelia Aburto, RN Mary Ellen Christine RN DULCE bruner Corrections: (The following items were deleted from the chart) 04/29 19:54 19:25 Hospitalization Ordered by Chris Enriquez MD for Inpatient Admission. Preliminary diagnosis is Acute and chronic respiratory failure with hypercapnia; Chronic obstructive pulmonary disease with (acute) exacerbation. Bed requested for Telemetry/MedSurg (Inpatient). Status is Inpatient Admission. Condition is Stable. Problem is new. Symptoms have improved. UTI on Admission? No. jr8 20:48 19:54 04/29/2019 19:25 Hospitalization Ordered by Chris Enriquez MD for Inpatient ea Admission. Preliminary diagnosis is Acute and chronic respiratory failure with hypercapnia; Chronic obstructive pulmonary disease with (acute) exacerbation. Bed requested for Telemetry/MedSurg (Inpatient). Status is Inpatient Admission. Condition is Stable. Problem is new. Symptoms have improved. UTI on Admission? No. mw
[2019-04-29 19:56] LABS: Urine Blood TRACE (NEG); Urine Glucose NEGATIVE (NEG); Urine Protein NEGATIVE (NEG); Urine Specific Gravity 1.015 (1.005-1.030); Urine pH 5.5 (5.0-7.0)
[2019-04-29] MEDS ORDERED: ALBUTEROL 2.5 MG/3 ML NEB SOL NEB PRN (20:50)
[2019-04-29] MEDS ORDERED: ONDANSETRON 4 MG/2 ML VIAL IV PRN (20:50)
[2019-04-29 21:02] VITALS: BMI 42.7
[2019-04-29] MEDS: LORazepam 2 MG/ML VIAL IV PRN (21:52)
[2019-04-30] MEDS: METHYLPREDNISOLONE 40 MG INJ IV SCH ×3 (01:16→16:47)
[2019-04-30] MEDS: BENZONATATE 100 MG CAP PO PRN ×3 (04:23→16:49)
[2019-04-30 06:27] LABS: Absolute Lymphocytes (CBC) 0.6 K/uL (0.7-4.9); Basophils % 0.1 % (0-1.3); Hematocrit 38.7 % (36.0-45.0); Lymphocytes % 9.3 % (15.3-44.8); MPV 8.2 fL (7.6-11.3); RBC Red Blood Cell Count 4.53 M/uL (3.86-4.86)
[2019-04-30 06:46] LABS: Potassium 4.1 mmol/L (3.5-5.1)
--- NOTE | 2019-04-30 07:36 | EKG ---
Test Date: 2019-04-29 Test Time: 17:49:28 [employer] Worker: MARGARETTE MEASUREMENT RESULTS: Intervals: Rate: 116 AK: 156 QRSD: 82 QT: 326 QTc: 453 [place]: P: 70 AK: 156 QRS: 78 T: 62 INTERPRETIVE STATEMENTS: Sinus tachycardia Otherwise normal ECG Compared to ECG 03/16/2019 00:11:34 No significant changes Electronically Signed On 04-30-19 07:35:57 CDT by Carlos Montaño
[2019-04-30] MEDS: IPRATROPIUM BROM 0.5MG/2.5ML NEB PRN ×2 (07:50→13:32)
[2019-04-30] MEDS ORDERED: ASPIRIN EC 81 MG TAB PO SCH (09:00)
[2019-04-30] MEDS ORDERED: LORATADINE 10 MG TAB PO PRN (09:33)
[2019-04-30] MEDS: FLUTICASONE 50MCG NASAL SPRAY NAS SCH ×2 (10:21→22:24)
[2019-04-30] MEDS: ACETAMINOPHEN 325 MG TABLET PO SCH ×2 (10:22→22:29)
[2019-04-30] MEDS ORDERED: guaiFENesin 100 MG/5 ML UCUP PO PRN (10:43)
[2019-04-30] MEDS ORDERED: D50W 25 GM/50 ML SYRINGE IV PRN (12:28)
[2019-04-30] MEDS ORDERED: GLUCAGON 1 MG/VIAL IM PRN (12:28)
[2019-04-30] MEDS ORDERED: BISMUTH SUBSALICYLATE 262 MG PO PRN (12:36)
--- NOTE | 2019-04-30 12:36 | P.HP ---
Certification for Inpatient Patient admitted to: Inpatient With expected LOS: >2 Midnights Practitioner: I am a practitioner with admitting privileges, knowledge of patient current condition, hospital course, and medical plan of care. Services: Services provided to patient in accordance with Admission requirements found in Title 42 Section 412.3 of the Code of Federal Regulations Patient History Date of Service: 04/30/19 Primary Care Provider: Mina Reason for admission: Copd Exacerbation History of Present Illness: Patient has been having 2 days of nasal congestions. She has been getting worse. Called an ambulance last night and was brought to the ER. Was found to be hypercapnia. Started on Bipap and steroids and admitted to the floor. Allergies codeine [Codeine] Adverse Reaction (Mild, Verified 04/30/19 01:29) itch Home Medications: Albuterol Sulfate [Proair Hfa] 8.5 gm IH QID PRN 10/22/15 Atorvastatin Calcium 20 mg PO BEDTIME 10/10/17 Latanoprost Ophth [Xalatan 0.005%*] 1 gtt EACH EYE BEDTIME 10/10/17 Roflumilast [Daliresp*] 500 mcg PO DAILY 10/10/17 Umeclidinium Brm/Vilanterol Tr [Anoro Ellipta 62.5-25 Mcg INH] 1 puff IH DAILY 10/10/17 acetaZOLAMIDE [Diamox*] 125 mg PO BID #180 tab 02/20/18 Aspirin [Aspirin EC 81 MG] 81 mg PO BEDTIME 03/16/19 Brimonidine/Dorzolamide/Pf [Brimonidine 0.15%-Dorzolam 2%] 1 gtt OPTH BID Furosemide [Lasix*] 20 mg PO DAILY 03/16/19 Tramadol HCl [Ultram] 50 mg PO TID 03/16/19 Bismuth Subsalicylate [Bismatrol] 262 mg PO QID PRN 15 Days #60 tab.chew Promethazine HCl [Phenergan] 25 mg PO TIDP PRN 10 Days #30 supp.rect 03/17/19 - Past Medical/Surgical History Has patient received pneumonia vaccine in the past: No Diabetic: No -: Severe COPD, oxygen/steroid dependent,Pulmonary-Dr. Do -: Mild pulmonary hypertension -: Hypothyroidism -: Bipolar disorder -: Hypertension -: Chronic low back pain -: Obstructive sleep apnea -: Tobacco abuse -: HLD -: GERD -: Appendectomy -: Psychosocial/ Personal History: She lives with a partner. She has 1 child. She is currently disabled. - Family History Father -: Heart disease, Hypertension, Diabetes Notes: from CHF Mother -: Heart disease, Hypertension, Diabetes Notes: from CHF Brother -: Diabetes Sister -: Heart disease, Diabetes Notes: from CHF - Social History Smoking Status: Former smoker Alcohol use: Yes CD- Drugs: No Caffeine use: Yes Review of Systems 10-point ROS is otherwise unremarkable ENT: Nose Discharge Respiratory: SOB with Excertion Physical Examination - Vital Signs Temperature: 97.5 F Blood Pressure: 165/72 Pulse: 78 Respirations: 19 Pulse Ox (%): 97 - Physical Exam General: Alert, In no apparent distress HEENT: Atraumatic, PERRLA, Mucous membr. moist/pink, EOMI, Sclerae nonicteric Neck: Supple, 2+ carotid pulse no bruit, No LAD, Without JVD or thyroid abnormality Respiratory: Diminished Cardiovascular: Regular rate/rhythm, Normal S1 S2 Gastrointestinal: Normal bowel sounds, No tenderness Musculoskeletal: No tenderness Integumentary: No rashes Neurological: Normal gait, Normal speech, Normal strength at 5/5 x4 extr, Normal tone, Normal affect Lymphatics: No axilla or inguinal lymphadenopathy - Studies Laboratory Data (last 24 hrs) 04/29/19 17:54: PT 11.5, INR 0.97 04/29/19 17:54: WBC 12.4 H, Hgb 13.4, Hct 42.2, Plt Count 207 04/29/19 17:54: Sodium 143, Potassium 3.9, BUN 7, Creatinine 1.07, Glucose 137 H , Magnesium 2.2, Total Bilirubin 0.8, AST 16, ALT 24, Alkaline Phosphatase 135 H Assessment and Plan - Problems (Diagnosis) (1) COPD exacerbation Onset Date: 05/30/16 Current Visit: No Status: Acute Plan: will continue steroids and breathing treatments. Will add some decongestants as well (2) Hypertension Onset Date: 03/20/17 Current Visit: No Status: Chronic Plan: will start the patient on her home medications. She is currently stable. Qualifiers: Hypertension type: essential hypertension (3) Hypothyroidism Onset Date: 09/12/14 Current Visit: No Status: Chronic Plan: will check a tsh on the patient. Qualifiers: Discharge Plan: Home Plan to discharge in: 48 Hours - Advance Directives Does patient have a Living Will: No Does patient have a Durable POA for Healthcare: No - Code Status/Comfort Care Code Status Assessed: No Code Status: Full Code Physician Review: Patient Assessed, Agree with Above Assessment and Plan Critical Care: No Time Spent Managing Pts Care (In Minutes): 30
[2019-04-30] MEDS: ALBUTEROL 2.5 MG/3 ML NEB SOL NEB PRN (13:32)
[2019-04-30] MEDS ORDERED: TRAMADOL HCL 50 MG TAB PO SCH (14:00)
[2019-04-30] MEDS ORDERED: guaiFENesin 100 MG/5 ML UCUP PO SCH (14:00)
[2019-04-30] MEDS: ENOXAPARIN 40 MG/0.4 ML SQ SCH (16:47)
[2019-04-30] MEDS: INSULIN -REGULAR HUMAN 50 UNIT/0.5 ML ML SQ SCH ×2 (17:29→21:00)
[2019-04-30] MEDS: LORazepam 2 MG/ML VIAL IV PRN (19:09)
[2019-04-30] MEDS: DORZOLAMIDE OPTH SCH (21:00)
[2019-04-30] MEDS: BRIMONIDINE OPTH SCH (21:00)
[2019-04-30] MEDS: LATANOPROST 0.005% 2.5ML OPTH OPTH SCH (21:00)
[2019-04-30] MEDS: ATORVASTATIN 20 MG TAB PO SCH (22:26)
[2019-04-30] MEDS: ASPIRIN EC 81 MG TAB PO SCH (22:26)
[2019-04-30] MEDS: acetaZOLAMIDE 250 MG TAB PO SCH (22:27)
[2019-05-01] MEDS: METHYLPREDNISOLONE 40 MG INJ IV SCH ×3 (00:30→17:03)
[2019-05-01] MEDS: BENZONATATE 100 MG CAP PO PRN (02:15)
[2019-05-01] MEDS: LORazepam 2 MG/ML VIAL IV PRN ×2 (02:16→21:51)
[2019-05-01] MEDS: PANTOPRAZOLE 40MG TABLET PO SCH (05:41)
[2019-05-01] MEDS: DORZOLAMIDE OPTH SCH (09:00)
[2019-05-01] MEDS: BRIMONIDINE OPTH SCH (09:00)
[2019-05-01] MEDS ORDERED: HOME MED 1 EA UNK (Umeclidinium Brm/Vilanterol Tr [Anoro Ellipta 62.5-25 Mcg Inh] 1 PUFF) IH SCH (09:00)
--- NOTE | 2019-05-01 10:24 | P.PN ---
Subjective Date of Service: 05/01/19 Primary Care Provider: Mina Chief Complaint: Copd Exacerbation Subjective: No new changes Review of Systems 10-point ROS is otherwise unremarkable Respiratory: Cough, Shortness of Breath, Pleuritic Pain Physical Examination - Vital Signs Temperature: 97.4 F Blood Pressure: 136/63 Pulse: 67 Respirations: 15 Pulse Ox (%): 95 - Physical Exam General: Alert, In no apparent distress HEENT: Atraumatic, PERRLA, EOMI Neck: Supple, JVD not distended Respiratory: Clear to auscultation bilaterally, Diminished (improved from yesterday) Cardiovascular: Regular rate/rhythm, Normal S1 S2 Gastrointestinal: Normal bowel sounds, No tenderness Musculoskeletal: No tenderness Integumentary: No rashes Neurological: Normal speech, Normal tone, Normal affect Lymphatics: No axilla or inguinal lymphadenopathy Assessment & Plan - Problems (Diagnosis) (1) COPD exacerbation Onset Date: 05/30/16 Current Visit: No Status: Acute Plan: will continue steroids and breathing treatments. Will add some decongestants as well Nsaid and tylenol for pleuritic pain. will keep her for the weekend. As the patient is very labile (2) Hypertension Onset Date: 03/20/17 Current Visit: No Status: Chronic Plan: will start the patient on her home medications. She is currently stable. Qualifiers: Hypertension type: essential hypertension (3) Hypothyroidism Onset Date: 09/12/14 Current Visit: No Status: Chronic Plan: will check a tsh on the patient. Qualifiers: Discharge Plan: Home Plan to discharge in: 48 Hours - Code Status/Comfort Care Code Status Assessed: No Physician Review: Patient Assessed, Agree with Above Assessment and Plan Critical Care: No Time Spent Managing Pts Care (In Minutes): 25
[2019-05-01] MEDS: ACETAMINOPHEN 325 MG TABLET PO SCH ×3 (10:26→21:52)
[2019-05-01] MEDS: FUROSEMIDE 20 MG TABLET PO SCH (10:27)
[2019-05-01] MEDS: ROFLUMILAST 500 MCG TABLET PO SCH (10:27)
[2019-05-01] MEDS: LORATADINE 10 MG TAB PO SCH (10:28)
[2019-05-01] MEDS: acetaZOLAMIDE 250 MG TAB PO SCH ×2 (10:28→21:53)
[2019-05-01] MEDS: FLUTICASONE 50MCG NASAL SPRAY NAS SCH ×2 (10:29→21:52)
[2019-05-01] MEDS: INSULIN -REGULAR HUMAN 50 UNIT/0.5 ML ML SQ SCH ×4 (10:30→21:54)
[2019-05-01] MEDS: TRAMADOL HCL 50 MG TAB PO PRN (12:55)
[2019-05-01] MEDS: ALBUTEROL 2.5 MG/3 ML NEB SOL NEB PRN (14:50)
[2019-05-01] MEDS: IPRATROPIUM BROM 0.5MG/2.5ML NEB PRN (14:50)
[2019-05-01] MEDS: ENOXAPARIN 40 MG/0.4 ML SQ SCH (17:02)
[2019-05-01] MEDS: DICLOFENAC SOD D.R. 75 MG TAB PO SCH (21:00)
[2019-05-01] MEDS: LATANOPROST 0.005% 2.5ML OPTH OPTH SCH (21:51)
[2019-05-01] MEDS: BRIMONIDINE 0.2% OPTH SCH (21:51)
[2019-05-01] MEDS: EYE OPTH SCH (21:51)
[2019-05-01] MEDS: ATORVASTATIN 20 MG TAB PO SCH (21:53)
[2019-05-01] MEDS: ASPIRIN EC 81 MG TAB PO SCH (21:53)
[2019-05-02] MEDS: METHYLPREDNISOLONE 40 MG INJ IV SCH ×3 (01:36→16:53)
[2019-05-02] MEDS: PANTOPRAZOLE 40MG TABLET PO SCH (05:47)
[2019-05-02] MEDS: IPRATROPIUM BROM 0.5MG/2.5ML NEB PRN ×2 (08:26→13:34)
[2019-05-02] MEDS: ALBUTEROL 2.5 MG/3 ML NEB SOL NEB PRN ×2 (08:26→13:34)
[2019-05-02] MEDS: TRAMADOL HCL 50 MG TAB PO PRN (08:54)
[2019-05-02] MEDS: INSULIN -REGULAR HUMAN 50 UNIT/0.5 ML ML SQ SCH ×4 (08:54→21:29)
[2019-05-02] MEDS: FUROSEMIDE 20 MG TABLET PO SCH (08:55)
[2019-05-02] MEDS: ROFLUMILAST 500 MCG TABLET PO SCH (08:55)
[2019-05-02] MEDS: LORATADINE 10 MG TAB PO SCH (08:55)
[2019-05-02] MEDS: ACETAMINOPHEN 325 MG TABLET PO SCH ×3 (08:55→21:27)
[2019-05-02] MEDS: EYE OPTH SCH ×2 (08:56→21:28)
[2019-05-02] MEDS: BRIMONIDINE 0.2% OPTH SCH ×2 (08:56→21:28)
[2019-05-02] MEDS: acetaZOLAMIDE 250 MG TAB PO SCH ×2 (09:03→21:28)
[2019-05-02] MEDS: DICLOFENAC SOD D.R. 75 MG TAB PO SCH ×2 (09:04→21:27)
[2019-05-02] MEDS: FLUTICASONE 50MCG NASAL SPRAY NAS SCH ×2 (09:04→21:29)
--- NOTE | 2019-05-02 11:47 | P.PN ---
Subjective Date of Service: 05/02/19 Primary Care Provider: Mina Chief Complaint: Copd Exacerbation Patient is breathing well when I walked in the room. The patient then started coughing Review of Systems 10-point ROS is otherwise unremarkable Respiratory: Shortness of Breath Physical Examination - Vital Signs Temperature: 97.5 F Blood Pressure: 141/88 Pulse: 77 Respirations: 20 Pulse Ox (%): 95 - Physical Exam General: Alert, In no apparent distress HEENT: Atraumatic, PERRLA, EOMI Neck: Supple, JVD not distended Respiratory: Clear to auscultation bilaterally, Diminished (improving since yesteday) Cardiovascular: Regular rate/rhythm, Normal S1 S2 Gastrointestinal: Normal bowel sounds, No tenderness Musculoskeletal: No tenderness Integumentary: No rashes Neurological: Normal speech, Normal tone, Normal affect Lymphatics: No axilla or inguinal lymphadenopathy Assessment & Plan - Problems (Diagnosis) (1) COPD exacerbation Onset Date: 05/30/16 Current Visit: No Status: Acute Plan: will continue steroids and breathing treatments. Will add some decongestants as well Nsaid and tylenol for pleuritic pain. will keep her for the weekend. As the patient is very labile. Will plan to discharge tomorrow (2) Hypertension Onset Date: 03/20/17 Current Visit: No Status: Chronic Plan: will start the patient on her home medications. She is currently stable. Qualifiers: Hypertension type: essential hypertension (3) Hypothyroidism Onset Date: 09/12/14 Current Visit: No Status: Chronic Plan: will check a tsh on the patient. Qualifiers: Discharge Plan: Home Plan to discharge in: 24 Hours - Code Status/Comfort Care Code Status Assessed: No Physician Review: Patient Assessed, Agree with Above Assessment and Plan Critical Care: No Time Spent Managing Pts Care (In Minutes): 20
[2019-05-02] MEDS: ENOXAPARIN 40 MG/0.4 ML SQ SCH (16:51)
[2019-05-02] MEDS: LORazepam 2 MG/ML VIAL IV PRN (21:23)
[2019-05-02] MEDS: ATORVASTATIN 20 MG TAB PO SCH (21:27)
[2019-05-02] MEDS: ASPIRIN EC 81 MG TAB PO SCH (21:28)
[2019-05-02] MEDS: LATANOPROST 0.005% 2.5ML OPTH OPTH SCH (21:29)
[2019-05-03] MEDS: METHYLPREDNISOLONE 40 MG INJ IV SCH ×2 (00:37→08:25)
[2019-05-03 05:30] VITALS: O2SAT 93
[2019-05-03] MEDS: PANTOPRAZOLE 40MG TABLET PO SCH (05:45)
[2019-05-03 06:31] LABS: Absolute Lymphocytes (CBC) 1.3 K/uL (0.7-4.9); Basophils % 0.1 % (0-1.3); Hematocrit 39.1 % (36.0-45.0); Lymphocytes % 13.6 % (15.3-44.8); MPV 8.1 fL (7.6-11.3); RBC Red Blood Cell Count 4.54 M/uL (3.86-4.86)
[2019-05-03 06:41] LABS: Albumin 3.6 g/dL (3.4-5.0); Bilirubin Total 0.3 mg/dL (0.2-1.0); Protein, Total 6.9 g/dL (6.4-8.2)
[2019-05-03] MEDS: INSULIN -REGULAR HUMAN 50 UNIT/0.5 ML ML SQ SCH ×2 (07:30→12:18)
[2019-05-03] MEDS: acetaZOLAMIDE 250 MG TAB PO SCH (08:25)
[2019-05-03] MEDS: FUROSEMIDE 20 MG TABLET PO SCH (08:25)
[2019-05-03] MEDS: DICLOFENAC SOD D.R. 75 MG TAB PO SCH (08:25)
[2019-05-03] MEDS: ACETAMINOPHEN 325 MG TABLET PO SCH ×2 (08:26→13:36)
[2019-05-03] MEDS: LORATADINE 10 MG TAB PO SCH (08:26)
[2019-05-03] MEDS: TRAMADOL HCL 50 MG TAB PO PRN (08:27)
[2019-05-03] MEDS: ROFLUMILAST 500 MCG TABLET PO SCH (08:27)
[2019-05-03] MEDS: BRIMONIDINE 0.2% OPTH SCH (08:28)
[2019-05-03] MEDS: FLUTICASONE 50MCG NASAL SPRAY NAS SCH (08:28)
[2019-05-03] MEDS: EYE OPTH SCH (08:28)
--- NOTE | 2019-05-03 12:41 | P.DS ---
Admission Date: 04/29/19 Discharge Date: 05/03/19 Primary Care Provider: Mina Disposition: ROUTINE DISCHARGE Discharge Condition: FAIR Reason for Admission: Copd Exacerbation - Problems (1) COPD exacerbation Onset Date: 05/30/16 Current Visit: No Status: Acute (2) Hypertension Onset Date: 03/20/17 Current Visit: No Status: Chronic Qualifiers: Hypertension type: essential hypertension (3) Hypothyroidism Onset Date: 09/12/14 Current Visit: No Status: Chronic Qualifiers: Brief History of Present Illness: Patient has been having 2 days of nasal congestions. She has been getting worse. Called an ambulance last night and was brought to the ER. Was found to be hypercapnia. Started on Bipap and steroids and admitted to the floor. Hospital Course: Patient was admitted and started on steroids and breathing treatment. Is doing better. Will discharge home. Have her follow up with me and Dr. Antonio. Vital Signs/Physical Exam: Temp Pulse Resp BP Pulse Ox 97.8 F 71 19 021/60 98 05/03/19 04:00 05/03/19 08:25 05/03/19 09:27 05/03/19 08:25 05/03/19 09:27 General: Alert, In no apparent distress HEENT: Atraumatic, PERRLA, EOMI Neck: Supple, JVD not distended Respiratory: Clear to auscultation bilaterally, Normal air movement Cardiovascular: Regular rate/rhythm, Normal S1 S2 Gastrointestinal: Normal bowel sounds, No tenderness Musculoskeletal: No tenderness Integumentary: No rashes Neurological: Normal speech, Normal tone, Normal affect Lymphatics: No axilla or inguinal lymphadenopathy Laboratory Data at Discharge: WBC 9.3 K/uL (4.3-10.9) D 05/03/19 06:00 Hgb 12.6 g/dL (12.0-15.0) 05/03/19 06:00 Hct 39.1 % (36.0-45.0) 05/03/19 06:00 Plt Count 221 K/uL (152-406) D 05/03/19 06:00 PT 11.5 SECONDS (9.5-12.5) 04/29/19 17:54 INR 0.97 04/29/19 17:54 Sodium 141 mmol/L (136-145) 05/03/19 06:00 Potassium 4.0 mmol/L (3.5-5.1) 05/03/19 06:00 BUN 20 mg/dL (7-18) H 05/03/19 06:00 Creatinine 0.95 mg/dL (0.55-1.3) 05/03/19 06:00 Glucose 105 mg/dL (74-106) 05/03/19 06:00 Magnesium 2.2 mg/dL (1.8-2.4) 04/29/19 17:54 Total Bilirubin 0.3 mg/dL (0.2-1.0) 05/03/19 06:00 AST 11 U/L (15-37) L 05/03/19 06:00 ALT 24 U/L (12-78) 05/03/19 06:00 Alkaline Phosphatase 94 U/L (45-117) 05/03/19 06:00 Home Medications: Albuterol Sulfate [Proair Hfa] 8.5 gm IH QID PRN 10/22/15 Atorvastatin Calcium 20 mg PO BEDTIME 10/10/17 Latanoprost Ophth [Xalatan 0.005%*] 1 gtt EACH EYE BEDTIME 10/10/17 Roflumilast [Daliresp*] 500 mcg PO DAILY 10/10/17 Umeclidinium Brm/Vilanterol Tr [Anoro Ellipta 62.5-25 Mcg INH] 1 puff IH DAILY 10/10/17 acetaZOLAMIDE [Diamox*] 125 mg PO BID #180 tab 02/20/18 Aspirin [Aspirin EC 81 MG] 81 mg PO BEDTIME 03/16/19 Furosemide [Lasix*] 20 mg PO DAILY 03/16/19 Tramadol HCl [Ultram] 50 mg PO TID 03/16/19 Bismuth Subsalicylate [Bismatrol] 262 mg PO QID PRN 15 Days #60 tab.chew Promethazine HCl [Phenergan] 25 mg PO TIDP PRN 10 Days #30 supp.rect 03/17/19 Brimonidine [Alphagan P 0.15%*] 1 gtt OPTH BID 05/01/19 Prednisone [Sterapred Ds] 10 mg PO BID #21 tab.ds.pk 05/03/19 New Medications: Prednisone [Sterapred Ds] 10 mg PO BID #21 tab.ds.pk Diet: AHA Activity: Ad kristopher Followup: Chris Enriquez MD [ACTIVE - CAN ADMIT] - 1 Week Isai Do MD [ACTIVE - CAN ADMIT] - 1-2 Weeks Time spent managing pt's care (in minutes): 30
[2019-05-03 12:46] VITALS: BP 149/74; TEMP 97.6
== END 2019-05-03 14:30 | disposition home or self-care (01) | DRG 192 ==
LOC: ER 17:41 → ERHOLD 20:02 → 2ND 20:37
PROVIDERS: ADMIT Internal Medicine; ATTEND Internal Medicine
PROC: 5A09457 Assistance with Respiratory Ventilation, 24-96 Consecutive Hours, Continuous Positive Airway Pressure (ICD-10-PCS; principal; 2019-04-29)
DX: J44.1 Chronic obstructive pulmonary disease with (acute) exacerbation (principal); R06.89 Other abnormalities of breathing; E03.9 Hypothyroidism, unspecified; F31.9 Bipolar disorder, unspecified; I10 Essential (primary) hypertension
CPT/HCPCS: 36415; 71045; 80048; 80053; 80076; 81003; 82805; 82962; 83735; 83880; 84484; 85025; 85610; 87070; 87205; 93005; 94640; 94660; 94760; 96365; 96366; 96375; 99291; 99292; J1650; J2920; J3475

== ENCOUNTER 2020-02-26 20:13 | Emergency (ER) | payer OTHER ==
--- OUTSIDE RECORDS SUMMARY | 2020-02-26 20:15 | XMS REPORT | Clinical Summary ---
:1960 Author Organization [facility] Address [address] [place] [address] Care Team Providers Name Role Phone Unavailable [...] Take 1 tablet 4 tablet 0 02/26/2017 Ac tive (ZITHROMAX) 250 MG (250 mg total) by [...] Not on file Results Not on fileafter 02/25/2019 Insurance Payer Benefit Plan / Subscriber ID Type Phone Address Group MEDICAID - MEDICAID [facility] xxxxxxxxx Medicaid Contracted [employer] C[employer] PLAN Advance Directives For more information, please contact:[address] [phone] Code Status Date Activated Date Inactivated Comments Full Code 02/24/2017 8:19 AM 02/26/2017 1:59 PM This code status was determined by: Patient
--- OUTSIDE RECORDS SUMMARY | 2020-02-26 20:16 | XMS REPORT | Continuity of Care Document ---
:1960 Author Organization [facility] Address [address] [place] [address] Care Team Providers Name Role Phone Cece DIETRICH Attending Clinician KELLY Attending Clinician Unavailable KELLY Admitting Clinician Unavailable Problems Condition Condition Condition Status Onset Resolution Last Treating Co mments Source Name Details Category Date Date Treatment Clinician Date Tobacco Tobacco Disease Active [facility] 00 [place] Hypoxemia Hypoxemia Disease Active [facility] [place] COPD COPD Disease Active [facility] exacerbati exacerbati 6-05 Pema kes - on on 00:00: Medical 00 [place] Acute Acute Disease Active [facility] hypercapni hypercapni 6-05 P[facility] kes - c c 00:00: Medical respirator respirator 00 Ce nter y failure y failure Allergies, Adverse Reactions, Alerts This patient has no known allergies or adverse reactions. Social History Social Habit Start Date Stop Date Quantity Comments Source Sex Assigned At [facility] Medications Ordered Filled Start Stop Current Ordering Indication Dosage Frequency Signature Comments Components Source Medication Medication Date Date Medication? Clinician (SIG) Name Name predniSONE Yes [facility] 4 [facility] - 10 [facility] 00:00: daily for Medical tablet 00 4 days, Center then 3 tablets daily for 4 days, then 2 tablets daily until tablets run out.. azithromyci 2017-0 Yes 250mg QD Take [address] [facility] n 02-26 tablet [facility] - (ZITHROMAX) 00:00: (250 mg Med ical 250 MG 00 total) by Center tablet mouth daily Take by mouth as directed.. Procedures This patient has no known procedures. Encounters Start End Encounter Admission Attending Care Care Encounter Source Date/Time Date/Time Type Type Clinicians Facility Department ID 2019-10-26 2019-10-26 Office DAKOTA Zhao [id number] 14:08:12 15:44:07 Visit [facility] [id number] [place] [id number] [facility] [id number] Primary & 144 Specialty [facility] Results Test Description Test Time Test Comments Results Result Comments Source BASIC METABOLIC PANEL 2017-02-26 05:26:00 Test Item Value Reference Range Interpretation Comme nts SODIUM (BEAKER) (test code 139 meq/L 136-145 = 381) POTASSIUM (BEAKER) (test 3.5 meq/L 3.5-5.1 code = 379) CHLORIDE (BEAKER) (test 95 meq/L 98-107 L code = 382) CO2 (BEAKER) (test code = 40 meq/L 22-29 HH 355) BLOOD UREA NITROGEN 14 mg/dL 7-21 (BEAKER) (test code = 354) CREATININE (BEAKER) (test 0.64 mg/dL 0.57-1.25 code = 358) GLUCOSE RANDOM (BEAKER) 92 mg/dL 70-105 (test code = 652) CALCIUM (BEAKER) (test 8.4 mg/dL 8.4-10.2 code = 697) EGFR (BEAKER) (test code = 96 mL/min/1.73 sq m ESTIMATED GFR IS NOT 1092) ACCURATE CRE ATININE CLEARANCE IN [place] EDICTING GLOMERULAR FILT RATION RATE. ESTIMATED GFR IS NOT APPLICABLE FOR DIALYSIS PATIENTS. CBC (HEMOGRAM ONLY)2017-02-26 05:21:00 Test Item Value Reference Range Interpretation Comments WHITE BLOOD CELL COUNT (BEAKER) 6.4 K/ L 4.0-10.0 (test code = 775) RED BLOOD CELL COUNT (BEAKER) 4.17 M/ L 4.00-5.00 (test code = 761) HEMOGLOBIN (BEAKER) (test code = 12.0 GM/DL 12.0-15.0 410) HEMATOCRIT (BEAKER) (test code = 39.4 % 36.0-45.0 411) MEAN CORPUSCULAR VOLUME (BEAKER) 94.4 fL 82.0-99.0 (test code = 753) MEAN CORPUSCULAR HEMOGLOBIN 28.8 pg 27.0-33.0 (BEAKER) (test code = 751) MEAN CORPUSCULAR HEMOGLOBIN CONC 30.5 GM/DL 32.0-36.0 L (BEAKER) (test code = 752) RED CELL DISTRIBUTION WIDTH 13.1 % 10.3-14.2 (BEAKER) (test code = 412) PLATELET COUNT ([facility]) (test 137 K/CU MM 150-430 L code = 756) MEAN PLATELET VOLUME (AKER) 7.2 fL 6.5-10.5 (test code = 754) NUCLEATED RED BLOOD CELLS 0 /100 WBC 0-0 ([facility]) (test code = 413) 0.00POCT-GLUCOSE [id number] 17:50:00 Test Item Value Reference Range Interpretation Comments POC-GLUCOSE METER 118 mg/dL 70-110 H TESTED AT [place] [address] ([facility]) [facility] 1538) [id number] POCT-GLUCOSE [id number] 11:59:00 Test Item Value Reference Range Interpretation Comments POC-GLUCOSE METER 247 mg/dL 70-110 H TESTED AT [place] [address] ([facility]) (test [facility] = [facility] 1538) [id number] POCT-GLUCOSE [id number] 07:54:00 Test Item Value Reference Range Interpretation Comments POC-GLUCOSE METER 141 mg/dL 70-110 H TESTED AT [place] [address] ([facility]) (test code = [facility] Pepper [facility] 1538) [id number] CBC W/PLT COUNT & AUTO [id number] 03:45:00 Test Item Value Reference Range Interpretation Comments WHITE BLOOD CELL COUNT ([facility]) 4.9 K/ L 4.0-10.0 (test code = 775) RED BLOOD CELL COUNT ([facility]) 4.03 M/ L 4.00-5.00 (test code = 761) HEMOGLOBIN (BEAKER) (test code = 12.2 GM/DL 12.0-15.0 410) HEMATOCRIT (BEAKER) (test code = 37.3 % 36.0-45.0 411) MEAN CORPUSCULAR VOLUME (BEAKER) 92.5 fL 82.0-99.0 (test code = 753) MEAN CORPUSCULAR HEMOGLOBIN 30.3 pg 27.0-33.0 (BEAKER) (test code = 751) MEAN CORPUSCULAR HEMOGLOBIN CONC 32.8 GM/DL 32.0-36.0 (BEAKER) (test code = 752) RED CELL DISTRIBUTION WIDTH 14.3 % 10.3-14.2 H (BEAKER) (test code = 412) PLATELET COUNT (BEAKER) (test 122 K/CU MM 150-430 L code = 756) MEAN PLATELET VOLUME (BEAKER) 8.0 fL 6.5-10.5 (test code = 754) NUCLEATED RED BLOOD CELLS 0 /100 WBC 0-0 (BEAKER) (test code = 413) NEUTROPHILS RELATIVE PERCENT 88 % (BEAKER) (test code = 429) LYMPHOCYTES RELATIVE PERCENT 10 % (BEAKER) (test code = 430) MONOCYTES RELATIVE PERCENT 2 % (BEAKER) (test code = 431) EOSINOPHILS RELATIVE PERCENT 0 % (BEAKER) (test code = 432) BASOPHILS RELATIVE PERCENT 0 % (BEAKER) (test code = 437) NEUTROPHILS ABSOLUTE COUNT 4.32 K/ L 1.80-8.00 (BEAKER) (test code = 670) LYMPHOCYTES ABSOLUTE COUNT 0.49 K/ L 1.48-4.50 L (BEAKER) (test code = 414) MONOCYTES ABSOLUTE COUNT (BEAKER) 0.09 K/ L 0.00-1.30 (test code = 415) EOSINOPHILS ABSOLUTE COUNT 0.02 K/ L 0.00-0.50 (BEAKER) (test code = 416) BASOPHILS ABSOLUTE COUNT (BEAKER) 0.01 K/ L 0.00-0.20 (test code = 417) [id number] 03:29:00 Test Item Value Reference Range Interpretation Comments MAGNESIUM (BEAKER) 1.8 mg/dL 1.6-2.6 Specimen slightly (test code = 627) hemolyzed BASIC METABOLIC [id number] 03:29:00 Test Item Value Reference Range Interpretation Comments SODIUM (BEAKER) 139 meq/L 136-145 (test code = 381) POTASSIUM (BEAKER) 4.4 meq/L 3.5-5.1 Specimen slightly (test code = 379) hemolyzed CHLORIDE (BEAKER) 93 meq/L 98-107 L (test code = 382) CO2 (BEAKER) (test 39 meq/L 22-29 H code = 355) BLOOD UREA NITROGEN 15 mg/dL 7-21 (BEAKER) (test code = 354) CREATININE (BEAKER) 0.67 mg/dL 0.57-1.25 Specimen slightly (test code = 358) hemolyzed GLUCOSE RANDOM 150 mg/dL 70-105 H (BEAKER) (test code = 652) CALCIUM (BEAKER) 8.6 mg/dL 8.4-10.2 (test code = 697) EGFR (BEAKER) (test 91 mL/min/1.73 ESTIMA DANIEL GFR IS code = 1092) sq m NOT ACCURATE CREATININE CLEARANCE IN PREDICTING GLOMERULAR FILTRATION RATE . ESTIMATED GFR I S NOT APPLICABLE FOR DIALYSIS PATIEN TS. POCT-GLUCOSE [id number] 00:05:00 Test Item Value Reference Range Interpretation Comments POC-GLUCOSE METER 117 mg/dL 70-[address] [facility] 67[address] ([facility]) (test code = [facility] 1538) [id number] POCT-GLUCOSE [id number] 18:17:00 Test Item Value Reference Range Interpretation Comments POC-GLUCOSE METER 141 mg/dL 70-[address] [facility] 6720 ([facility]) (test code = [facility] 1538) [id number] CREATINE KINASE (CK), TOTAL AND [id number] 15:43:00 Test Item Value Reference Range Interpretation Comments CREATINE KINASE TOTAL (BEAKER) 31 U/L 29-200 (test code = 380) CREATINE KINASE-MB (BEAKER) (test 1.3 ng/mL 0.0-6.6 code = 750) CREATINE KINASE-MB INDEX (BEAKER) 4.2 % (test code = 395) Effective 08/09/2014: CK-MB Reference Range ChangeNew: 0.0-6.6 Previous: 0.0-4.9CK-MB Reference Range:<6.7 Normal6.7-10.0 Borderline>10.0 AbnormalBLOOD GAS, [id number] 15:26:00 Test Item Value Reference Range Interpretation Comments PH ARTERIAL (BEAKER) (test code = 7.41 7.35-7.45 383) PCO2 ARTERIAL (BEAKER) (test code 68 mmHg 35-45 H = 384) PO2 ARTERIAL (BEAKER) (test code 67 mmHg 80-90 L = 385) O2 SATURATION ARTERIAL (BEAKER) 92.2 % 96.0-97.0 L (test code = 386) HCO3 ARTERIAL (BEAKER) (test code 42 mmol/L 21-29 HH = 388) BASE EXCESS ARTERIAL (BEAKER) 14.8 mmol/L -2.0-3.0 H (test code = 387) PATIENT TEMPERATURE (BEAKER) 37.5 C (test code = 1818) FIO2 (BEAKER) (test code = 1819) 35.0 % POCT-GLUCOSE [id number] 11:45:00 Test Item Value Reference Range Interpretation Comments POC-GLUCOSE METER 122 mg/dL 70-[address] [facility] 6720 (BEAKER) (test code = [place] 1538) [id number] CREATINE KINASE (CK), TOTAL AND [id number] 10:29:00 Test Item Value Reference Range Interpretation Comments CREATINE KINASE TOTAL (BEAKER) 31 U/L 29-200 (test code = 380) CREATINE KINASE-MB (BEAKER) (test 1.5 ng/mL 0.0-6.6 code = 750) CREATINE KINASE-MB INDEX (BEAKER) 4.8 % (test code = 395) Effective 08/09/2014: CK-MB Reference Range ChangeNew: 0.0-6.6 Previous: 0.0-4.9CK-MB Reference Range:<6.7 Normal6.7-10.0 Borderline>10.0 AbnormalTROPONIN [id number] 10:29:00 Test Item Value Reference Range Interpretation Comments TROPONIN I (BEAKER) (test code = 397) < ng/mL 0.00-0.03 Effective 08/09/2014: Reference Range [...] renalfailure, acidosis, acute neurological disease, and persistent tachyarrhythmia.[id number] 10:22:00 Test Item Value Reference Range Interpretation Comments PARTIAL THROMBOPLASTIN TIME 22.5 seconds 22.5-36.0 (BEAKER) (test code = 760) PROTHROMBIN TIME/[id number] 10:21:00 Test Item Value Reference Range Interpretation Comments PROTIME (BEAKER) (test code = 12.4 seconds 11.7-14.7 759) INR (BEAKER) (test code = 370) 0.9 <=5.9 RECOMMENDED COUMADIN/WARFARIN INR THERAPY RANGESSTANDARD DOSE: 2.0 - 3.0 Includes: PROPHYLAXIS forvenous thrombosis, systemic embolization; TREATMENT for venous thrombosis and/or pulmonary embolus.HIGH RISK: Target INR is 2.5-3.5 for patients with mechanical heart valves.BLOOD GAS, [id number] 10:17:00 Test Item Value Reference Range Interpretation Comments PH ARTERIAL (BEAKER) (test code = 7.42 7.35-7.45 383) PCO2 ARTERIAL (BEAKER) (test code 63 mmHg 35-45 H = 384) PO2 ARTERIAL (BEAKER) (test code 51 mmHg 80-90 L = 385) O2 SATURATION ARTERIAL (BEAKER) 85.7 % 96.0-97.0 L (test code = 386) HCO3 ARTERIAL (BEAKER) (test code 40 mmol/L 21-29 HH = 388) BASE EXCESS ARTERIAL (BEAKER) 12.7 mmol/L -2.0-3.0 H (test code = 387) PATIENT TEMPERATURE (BEAKER) 37.0 C (test code = 1818) FIO2 (BEAKER) (test code = 1819) 40.0 % PLATELET [id number] 10:13:00 Test Item Value Reference Range Interpretation Comments PLATELET COUNT (BEAKER) (test 111 K/CU MM 150-430 L code = 756)
[2020-02-26 21:30] LABS: Absolute Lymphocytes (CBC) 2.5 K/uL (0.7-4.9); Basophils % 0.2 % (0-1.3); Hematocrit 37.4 % (36.0-45.0); Lymphocytes % 23.3 % (15.3-44.8); MPV 7.1 fL (7.6-11.3); RBC Red Blood Cell Count 4.39 M/uL (3.86-4.86)
[2020-02-26 21:50] LABS: Potassium 3.6 mmol/L (3.5-5.1)
[2020-02-26] MEDS ORDERED: KETOROLAC 30 MG/ML INJ ONE (22:22)
[2020-02-27] MEDS ORDERED: LIDOCAINE 1% 20 ML MDV ONE (02:17)
--- NOTE | 2020-02-27 02:34 | ER ---
Nurse's Notes [facility] Name: Vikki Zamudio Age: 59 yrs Sex: Female : 1960 Arrival Date: 02/26/2020 Time: 20:15 Bed 15 Private MD: Karen Callahan Diagnosis: Phlegmon perineum Presentation: 02/25 20:27 Chief complaint: Patient states: Reports abscess to left side of perineum area since ll1 last night getting progressively worse. No known drainage, no fever. Coronavirus screen: Proceed with normal triage. Patient denies a cough. Patient reports shortness of breath or difficulty breathing. Patient denies measured and/or subjective temperature greater than 100.4F prior to today's visit. Patient denies travel on a cruise ship or to a country the [facility] currently lists as an affected area. Patient denies contact with known and/or suspected case of COVID-19. SOB normal for her, COPD. Oxygen constantly at home. Ebola Screen: Patient denies travel to an Ebola-affected area in the 21 days before illness onset. Initial Sepsis Screen: Does the patient meet any 2 criteria? RR > 20 per min. HR > 90 bpm. Yes Does the patient have a suspected source of infection? Yes: Skin breakdown/wound If YES to both, name of provider notified: Raul Mittal MD. Risk Assessment: Do you want to hurt yourself or someone else? Patient reports no desire to harm self or others. Onset of symptoms was February 25, 2020. 20:27 Method Of Arrival: Wheelchair ll1 20:27 Acuity: LIZETH 3 ll1 20:34 Note spoke with provider regarding HR and respirations. Continue to monitor HR and ll1 resp., no sepsis alert called at this time. Historical: - Allergies: 20:31 Codeine; ll1 - PMHx: 20:31 CHF; COPD; Sleep Apnea; Hypothyroidism; High Cholesterol; GERD; Hypertension; Panic ll1 Attacks; - Immunization history:: Adult Immunizations up to date. - Social history:: Smoking status: Patient/guardian denies using tobacco, the patient reports quitting approximately 2 years ago, Patient/guardian denies using alcohol, street drugs. Screenin:30 Abuse screen: Denies threats or abuse. Nutritional screening: No deficits noted. vc Tuberculosis screening: No symptoms or risk factors identified. Fall Risk None identified. Assessment: 20:30 General: Appears in no apparent distress. uncomfortable, obese, Behavior is vc cooperative, anxious. Pain: Complains of pain in left labia majora and left buttocks. Pain does not radiate. Pain currently is 10 out of 10 on a pain scale. Neuro: Level of Consciousness is awake, alert, obeys commands, Oriented to person, place, time, situation, Appropriate for age. Cardiovascular: Capillary refill < 3 seconds Patient's skin is warm and dry. Respiratory: Airway is patent Respiratory effort is even, unlabored, Respiratory pattern is regular, symmetrical. GI: No signs and/or symptoms were reported involving the gastrointestinal system. : No signs and/or symptoms were reported regarding the genitourinary system. EENT: No signs and/or symptoms were reported regarding the EENT system. Derm: Skin Bruising that is dark purple. 21:30 Reassessment: Patient appears in no apparent distress at this time. Patient and/or vc family updated on plan of care and expected duration. Pain level reassessed. Patient is alert, oriented x 3, equal unlabored respirations, skin warm/dry/pink. 22:30 Reassessment: Patient appears in no apparent distress at this time. Patient and/or vc family updated on plan of care and expected duration. Pain level reassessed. Patient is alert, oriented x 3, equal unlabored respirations, skin warm/dry/pink. Patient states symptoms have not improved. 23:30 Reassessment: Patient appears in no apparent distress at this time. Patient and/or vc family updated on plan of care and expected duration. Pain level reassessed. Patient is alert, oriented x 3, equal unlabored respirations, skin warm/dry/pink. Patient states symptoms have not improved. 02/26 00:30 Reassessment: Patient appears in no apparent distress at this time. Patient and/or vc family updated on plan of care and expected duration. Pain level reassessed. Patient is alert, oriented x 3, equal unlabored respirations, skin warm/dry/pink. Patient states symptoms have not improved. 01:30 Reassessment: Patient appears in no apparent distress at this time. Patient and/or vc family updated on plan of care and expected duration. Pain level reassessed. Patient is alert, oriented x 3, equal unlabored respirations, skin warm/dry/pink. Patient states symptoms have improved. 02:45 Reassessment: Dressing place to site of wound, gauze and foam tape; No active bleeding. lp1 02:50 Reassessment: Assisted patient with dressing into clothing. lp1 03:08 Reassessment: Patient waiting for ride to arrive for discharge. lp1 Vital Signs: 02/25 20:27 BP 137 / 93; Pulse 99; Resp 22; Temp 99.6; Pulse Ox 92% on 3 lpm NC; Pain 10/10; ll1 20:45 BP 135 / 77; Pulse 77; Resp 20; Pulse Ox 92% on 2 lpm NC; vc 21:30 BP 150 / 63; Pulse 67; Resp 22; Pulse Ox 92% on 2 lpm NC; vc 22:00 BP 138 / 72; Pulse 82; Resp 20; Pulse Ox 96% on R/A; vc 23:00 BP 142 / 67; Pulse 69; Resp 24; Pulse Ox 94% on 2 lpm NC; vc 23:30 BP 135 / 62; Pulse 81; Resp 22; Pulse Ox 93% on 2 lpm NC; vc 02/26 01:30 BP 160 / 68; Pulse 65; Resp 21; Pulse Ox 96% on 2 lpm NC; vc 02:30 BP 138 / 97; Pulse 76; Resp 22; Pulse Ox 97% on 3 lpm NC; lp1 ED Course: 02/25 20:15 Patient arrived in ED. es 20:15 Karen Callahan MD is Private Physician. es 20:28 Raul Mittal MD is Attending Physician. 7 20:29 Triage completed. ll1 20:30 Patient has correct armband on for positive identification. Placed in gown. Bed in low vc position. Call light in reach. Side rails up X2. Pulse ox on. NIBP on. 20:31 Arm band placed on Patient placed in an exam room, on a stretcher. ll1 21:20 Inserted saline lock: 20 gauge in right antecubital area, using aseptic technique. oe Blood collected. 21:28 Damaris Dutta RN is Primary Nurse. vc 02/26 00:57 CT Pelvis w cont In Process Unspecified. EDMS 02:15 Assist provider with I \T\ D: of an abscess on Performed by Raul Mittal MD. lp1 02:40 IV discontinued, No redness/swelling at site. Pressure dressing applied. lp1 Administered Medications: 02/25 22:40 Drug: TORadol 30 mg Route: IVP; Site: right antecubital; vc 02/26 02:25 Follow up: Response: No adverse reaction vc 03:08 Drug: KeFLEX 500 mg Route: PO; lp1 03:08 Follow up: Response: Medication administered at discharge. lp1 03:08 Drug: Bactrim (160 mg-800 mg (DS) 1 tablet Route: PO; lp1 03:08 Follow up: Response: Medication administered at discharge. lp1 Outcome: 02:34 Discharge ordered by . 7 03:07 Discharged to home via wheelchair, with friend. lp1 03:07 Condition: good 03:07 Discharge instructions given to patient, Instructed on discharge instructions, follow up and referral plans. medication usage, Demonstrated understanding of instructions, follow-up care, medications, Prescriptions given X 3. 03:18 Patient left the ED. 1 Signatures: Dispatcher [employer] Mary Escobar Laura, RN RN lp1 Ever Zaldivar Vanessa, RN RN Randi Greco RN RN 1 Raul Mittal MD MD 7 Corrections: (The following items were deleted from the chart) 02/25 20:35 20:27 Initial Sepsis Screen: Does the patient meet any 2 criteria? RR > 20 per min. HR ll1 > 90 bpm. Yes Does the patient have a suspected source of infection? Yes: Skin breakdown/wound ll1
--- NOTE | 2020-02-27 02:34 | EDPHYS ---
Physician Documentation [facility] Name: Vikki Zamudio Age: 59 yrs Sex: Female : 1960 Arrival Date: 02/26/2020 Time: 20:15 Bed 15 Private MD: Karen Callahan ED Physician Raul Mittal HPI: 02/25 21:40 This 59 yrs old Female presents to ER via Wheelchair with complaints of Boil. mh7 21:40 The patient presents with an abscess of the left vaginal/groin area. Description: The mh7 affected area is small, localized. Onset: The symptoms/episode began/occurred yesterday. Possible cause(s): insect sting. Associated signs and symptoms: Pertinent negatives: discharge, drainage, erythema, foreign body sensation, fever, headache, nausea, shortness of breath, vomiting. Modifying factors: the symptoms are alleviated by nothing, the symptoms are aggravated by movement. Severity of symptoms: At their worst the symptoms were mild, earlier today, in the emergency department the symptoms are unchanged. Historical: - Allergies: 20:31 Codeine; ll1 - PMHx: 20:31 CHF; COPD; Sleep Apnea; Hypothyroidism; High Cholesterol; GERD; Hypertension; Panic ll1 Attacks; - Immunization history:: Adult Immunizations up to date. - Social history:: Smoking status: Patient/guardian denies using tobacco, the patient reports quitting approximately 2 years ago, Patient/guardian denies using alcohol, street drugs. ROS: 21:40 Constitutional: Negative for fever, chills, and weight loss, Eyes: Negative for injury, mh7 pain, redness, and discharge, ENT: Negative for injury, pain, and discharge, Neck: Negative for injury, pain, and swelling, Cardiovascular: Negative for chest pain, palpitations, and edema, Respiratory: Negative for shortness of breath, cough, wheezing, and pleuritic chest pain, Abdomen/GI: Negative for abdominal pain, nausea, vomiting, diarrhea, and constipation, Back: Negative for injury and pain, MS/Extremity: Negative for injury and deformity, Neuro: Negative for headache, weakness, numbness, tingling, and seizure, Psych: Negative for depression, anxiety, suicide ideation, homicidal ideation, and hallucinations, Allergy/Immunology: Negative for hives, rash, and allergies, Endocrine: Negative for neck swelling, polydipsia, polyuria, polyphagia, and marked weight changes, Hematologic/Lymphatic: Negative for swollen nodes, abnormal bleeding, and unusual bruising. Exam: 21:40 Constitutional: This is a well developed, well nourished patient who is awake, alert, mh7 and in no acute distress. Head/Face: Normocephalic, atraumatic. Eyes: Pupils equal round and reactive to light, extra-ocular motions intact. Lids and lashes normal. Conjunctiva and sclera are non-icteric and not injected. Cornea within normal limits. Periorbital areas with no swelling, redness, or edema. Neck: Trachea midline, no thyromegaly or masses palpated, and no cervical lymphadenopathy. Supple, full range of motion without nuchal rigidity, or vertebral point tenderness. No Meningismus. Chest/axilla: Normal chest wall appearance and motion. Nontender with no deformity. No lesions are appreciated. Cardiovascular: Regular rate and rhythm with a normal S1 and S2. No gallops, murmurs, or rubs. Normal PMI, no JVD. No pulse deficits. Respiratory: Lungs have equal breath sounds bilaterally, clear to auscultation and percussion. No rales, rhonchi or wheezes noted. No increased work of breathing, no retractions or nasal flaring. Abdomen/GI: Soft, non-tender, with normal bowel sounds. No distension or tympany. No guarding or rebound. No evidence of tenderness throughout. Back: No spinal tenderness. No costovertebral tenderness. Full range of motion. 21:40 MS/ Extremity: Pulses equal, no cyanosis. Neurovascular intact. Full, normal range of motion. Neuro: Awake and alert, GCS 15, oriented to person, place, time, and situation. Cranial nerves II-XII grossly intact. Motor strength 5/5 in all extremities. Sensory grossly intact. Cerebellar exam normal. Normal gait. Psych: Awake, alert, with orientation to person, place and time. Behavior, mood, and affect are within normal limits. 21:40 : CVA tenderness, is absent, Pelvic Exam: External exam: no appreciated Bartholin's cyst, no erythema, not excoriated, no evidence of foreign body, two small ecchymotic areas approximately 1 cm each on left lower labia majora and just inferior to left labia majora. Vital Signs: 20:27 BP 137 / 93; Pulse 99; Resp 22; Temp 99.6; Pulse Ox 92% on 3 lpm NC; Pain 10/10; ll1 20:45 BP 135 / 77; Pulse 77; Resp 20; Pulse Ox 92% on 2 lpm NC; vc 21:30 BP 150 / 63; Pulse 67; Resp 22; Pulse Ox 92% on 2 lpm NC; vc 22:00 BP 138 / 72; Pulse 82; Resp 20; Pulse Ox 96% on R/A; vc 23:00 BP 142 / 67; Pulse 69; Resp 24; Pulse Ox 94% on 2 lpm NC; vc 23:30 BP 135 / 62; Pulse 81; Resp 22; Pulse Ox 93% on 2 lpm NC; vc 02/26 01:30 BP 160 / 68; Pulse 65; Resp 21; Pulse Ox 96% on 2 lpm NC; vc 02:30 BP 138 / 97; Pulse 76; Resp 22; Pulse Ox 97% on 3 lpm NC; lp1 Procedures: 02:29 I \T\ D: Incision and drainage was performed for an abscess of the left perineal Prepped [facility] with Betadine, Anesthetized with 6 ml's 1% Lidocaine. Incised with Aspiration with 18 gauge needle. Drained no drainage. MDM: 02/25 21:05 Patient medically screened. [facility] 02/26 02:29 Differential diagnosis: abscess, allergic reaction, cellulitis, insect bite. Data [facility] reviewed: vital signs, nurses notes, lab test result(s), CBC, electrolytes, urinalysis, radiologic studies, CT scan. Counseling: I had a detailed discussion with the patient and/or guardian regarding: the historical points, exam findings, and any diagnostic results supporting the discharge/admit diagnosis, the presence of at least one elevated blood pressure reading (>120/80) during this emergency department visit, lab results, radiology results. Response to treatment: the patient's symptoms have markedly improved after treatment. 02/25 21:04 Order name: CBC with Diff; Complete Time: 22:09 [facility] 02/25 21:04 Order name: Basic Metabolic Panel; Complete Time: 22:09 [facility] 02/25 22:13 Order name: CT Pelvis w cont [facility] 02/25 21:04 Order name: Saline Lock; Complete Time: 21:29 [facility] Administered Medications: 02/25 22:40 Drug: TORadol 30 mg Route: IVP; Site: right antecubital; vc 02/26 02:25 Follow up: Response: No adverse reaction vc 03:08 Drug: KeFLEX 500 mg Route: PO; lp1 03:08 Follow up: Response: Medication administered at discharge. lp1 03:08 Drug: Bactrim (160 mg-800 mg (DS) 1 tablet Route: PO; lp1 03:08 Follow up: Response: Medication administered at discharge. lp1 Disposition: 02/27/20 02:34 Discharged to Home. Impression: Phlegmon perineum. - Condition is Stable. - Discharge Instructions: Cellulitis, Adult, Obhc-vt-Mhdv. - Prescriptions for Keflex 500 mg Oral Capsule - take 1 capsule by ORAL route every 6 hours for 10 days; 40 capsule. Tramadol 50 mg Oral Tablet - take 1 tablet by ORAL route every 8 hours as needed; 15 tablet. Bactrim DS 800- 160 mg Oral Tablet - take 1 tablet by ORAL route every 12 hours for 10 days; 20 tablet. - Medication Reconciliation Form, Thank You Letter, Antibiotic Education, Prescription Opioid Use form. - Follow up: Private Physician; When: 1 - 2 days; Reason: Worsening of condition, Recheck today's complaints, Re-evaluation by your physician. - Problem is new. - Symptoms have improved. Signatures: Dispatcher [employer] EDMS Kira Alcantar RN RN lp1 Damaris Dutta RN RN vc Lewis, Lynsay, RN RN 1 Raul Mittal MD MD 7 Corrections: (The following items were deleted from the chart) 03:18 02:34 02/27/2020 02:34 Discharged to Home. Impression: Phlegmon perineum. Condition is lp1 Stable. Forms are Medication Reconciliation Form, Thank You Letter, Antibiotic Education, Prescription Opioid Use. Follow up: Private Physician; When: 1 - 2 days; Reason: Worsening of condition, Recheck today's complaints, Re-evaluation by your physician. Problem is new. Symptoms have improved. [facility]
[2020-02-27] MEDS ORDERED: SMZ./TMP. 800/160 MG TABLET ONE (03:06)
[2020-02-27] MEDS ORDERED: CEPHALEXIN 250 MG CAP ONE (03:06)
[2020-02-27 03:31] VITALS: TEMP 99.6
[2020-02-27 03:48] VITALS: BP 138/97; O2SAT 97
--- NOTE | 2020-02-27 19:09 | RAD REPORT ---
EXAM DESCRIPTION: CT Pelvis With Intravenous Contrast CLINICAL HISTORY: The patient is 59 years old and is Female; SWELLING TECHNIQUE: Axial computed tomography images of the pelvis with intravenous contrast. Sagittal and coronal reformatted images were created and reviewed. This CT exam was performed using one or more of the following dose reduction techniques: automated exposure control, adjustment of the mA and/or kV according to patient size, and/or use of iterative reconstruction technique. COMPARISON: No relevant prior studies available. FINDINGS: BOWEL: Unremarkable. No obstruction. No mucosal thickening. APPENDIX: No findings to suggest acute appendicitis. INTRAPERITONEAL SPACE: Unremarkable. No free air. No significant fluid collection. BLADDER: The bladder is not well distended. REPRODUCTIVE: Unremarkable as visualized. BONES/JOINTS: Minimal degenerative change of the lower lumbar spine is present. SOFT TISSUES: A 4.5 x 1.8 cm slightly low attenuating collection with minimal stranding along the left aspect of the perineum is noted. VASCULATURE: Unremarkable. No lower abdominal aortic aneurysm. LYMPH NODES: Unremarkable. No enlarged lymph nodes. IMPRESSION: Findings suggest a small phlegmon within the left perineal region. Electronically signed by: Massiel Soto MD 02/27/2020 1:54 AM CDT Due to temporary technical issues with the PACS/Fluency reporting system, reports are being signed by the in house radiologist without review as a courtesy to ensure prompt reporting. The interpreting r adiologist is fully responsible for the content of the report.
== END 2020-02-27 03:18 | disposition home or self-care (01) ==
LOC: ER 20:13
PROC: 0W9N0ZZ Drainage of Female Perineum, Open Approach (ICD-10-PCS; principal; 2020-02-27)
DX: L02.215 Cutaneous abscess of perineum (principal); I10 Essential (primary) hypertension; Z88.5 Allergy status to narcotic agent; Z87.891 Personal history of nicotine dependence
CPT/HCPCS: 85025; 80048; 36415; 72193; 96374; 99284; 56405; Q9967

== ENCOUNTER 2020-05-15 19:39 | Emergency (ER) | payer OTHER ==
--- OUTSIDE RECORDS SUMMARY | 2020-05-15 19:41 | XMS REPORT | Summary of Care ---
:1960 Author Organization [facility] - Health Address [address] [place] [id number] Care Team Providers Name Role Phone Rome Moran Primary Care Provider Encounter Details Date Type Department Care Team Description 04/25/2020 Orders Only [facility] Doctor Unassigned, No 301 [facility] [place] [address] [place] [id number] Allergies Active Allergy Reactions Severity Noted Date Comments Codeine Itching Medium 08/30/2015 documented as of this encounter (statuses as of 04/25/2020) Medications Medication Sig Dispensed Refills Start Date End Date Status albuterol (PROVENTIL) Inhale 2.5 mg 0 Active 2.5 mg /3 mL (0.083 %) every 4 (four) nebulizer solution hours as needed for Wheezing or Shortness of Breath. carvedilol (COREG) Take 3.125 mg by 0 Active 3.125 mg tablet mouth 2 (two) times daily with meals. mometasone (NASONEX) 50 Use 2 Sprays in 0 Active mcg/actuation nasal each nostril spray daily. tiotropium (SPIRIVA Inhale 18 mcg 0 Active WITH HANDIHALER) 18 mcg daily. inhalation albuterol (PROAIR HFA) Inhale 2 Puffs 0 Active 90 mcg/actuation every 6 (six) inhaler hours as needed for Wheezing or Shortness of Breath. fluticasone-vilanterol Inhale 1 Puff 0 Active (BREO ELLIPTA) 100-25 daily. mcg/dose DsDv levothyroxine Take 100 mcg by 0 Active (SYNTHROID) 100 mcg mouth daily. tablet loratadine (CLARITIN) Take 10 mg by 0 Active 10 mg tablet mouth daily. aspirin 325 mg tablet Take 325 mg by 0 Active mouth daily. cyclobenzaprine Take 10 mg by 0 Active (FLEXERIL) 10 mg tablet mouth daily. divalproex ER (DEPAKOTE Take 500 mg by 0 Active ER) 500 mg 24 hr tablet mouth 2 (two) times daily. latanoprost 0.005 % Place 1 Drop in 3 03/14/2019 Active ophthalmic drops both eyes daily. fluticasone propionate Use 1 [place] in 0 03/15/2019 Active 50 mcg/actuation nasal each nostril spray daily. acetaZOLAMIDE 250 mg Take 250 mg by 0 Active tablet mouth. atorvastatin 20 mg Take 20 mg by 0 Active tablet mouth at bedtime. traMADol 50 mg tablet Take 50 mg by 0 Active mouth 3 (three) times daily. tiZANidine 4 mg tablet Take 4 mg by 0 Active mouth daily. clonazePAM 0.5 mg Take 0.5 mg by 0 Active tablet mouth as needed. roflumilast (DALIRESP) Take 1 tablet by 0 Active 500 mcg tablet mouth daily. umeclidinium-vilanterol Inhale. 0 Active (ANORO ELLIPTA) 62.5-25 mcg/actuation inhalation disk aspirin 81 mg EC tablet Take 81 mg by 0 Active mouth daily. lisinopril 10 mg tablet Take 10 mg by 0 Active mouth daily. furosemide 20 mg tablet Take 20 mg by 0 Active mouth daily. mupirocin 2 % Apply to area(s) 15 g 1 10/28/2019 Active creamIndications: 3 (three) times Epistaxis daily. documented as of this encounter (statuses as of 04/25/2020) Active Problems Problem Noted Date Morbid obesity with body mass index of 40.0-49.9 10/06 VIVEK on CPAP Hypothyroidism COPD (chronic obstructive pulmonary disease) Bipolar affective disorder Wears partial dentures documented as of this encounter (statuses as of 04/25/2020) Social History Tobacco Use Types Packs/Day Years Used Date Former Smoker Cigarettes Smokeless Tobacco: Never Used Alcohol Use Drinks/Week oz/Week Comments Yes 0 Standard drinks or equivalent 0.0 occasionaly Sex Assigned at Date Recorded Not on file COVID-19 Exposure Response Date Recorded In the last month, have you been in contact with No / Unsure 04/14/2020 1:49 PM CDT someone who was confirmed or suspected to have Coronavirus / COVID-19? documented as of this encounter Last Filed Vital Signs Not on filedocumented in this encounter Plan of Treatment Date Type Specialty Care Team Description 04/25/2020 Appointment Radiology Edilma Escobar MD [address] [place] [address] Dr. Buckley [address] [place] [address] [phone] 05/12/2020 Office Visit Obstetrics & Gynecology Nette Escobar MD [address] [place] [address] Dr. Buckley [address] [place] [address] [phone] 06/02/2020 Office Visit Obstetrics & Gynecology Nette Escobar MD [address] [place] [address] Dr. Buckley [address] [place] [address] [phone] Health Maintenance Due Date Last Done Comments HEPATITIS C (HCV) SCREEN 1960 PNEUMOCOCCAL 0-64 YEARS COMBINED SERIES (1 of 1 - 1967 PPSV23) DTaP,Tdap,and Td Vaccines (1 - Tdap) 1980 Breast Cancer Screening (MAMMOGRAM) 2001 COLON CANCER SCREENING ANNUAL FIT/FOBT 2011 COLON CANCER SCREENING FIT DNA EVERY 3 YEARS 2011 COLON CANCER SCREENING SIGMOIDOSCOPY EVERY 5 YEARS 2011 COLONOSCOPY 2011 Colorectal Cancer Screening 2011 Zoster Recombinant Vaccine (SHINGRIX) (1 of 2) 2011 LUNG CANCER SCREEN: Recommended for age 55-80 with 30 2016 + pack year history INFLUENZA VACCINE (#1) 2020 Depression Screening 10/06/2020 10/06/2019 PAP SMEAR 05/28/2022 05/28/2019 documented as of this encounter Implants Implanted Type Area Java Software Developer Device Shelf Model / Serial Identifier Expiration / Lot Date Lens LENS Left: Eye Perez 03/21/2020 [id number] / Implanted: Qty: 1 on 08/31/2015 by Freddy Guzmán MD at [facility] 1 [id number] / [id number] Lens LENS Right: Perez 02/20/2020 [id number] / Implanted: Qty: 1 on 10/05/2015 by Freddy Guzmán MD at [facility] 6 [id number] / [id number] documented as of this encounter Procedures Procedure Name Priority Date/Time Associated Diagnosis Comme nts CONSENT/REFUSAL FOR Routine 04/25/2020 3:49 PM DIAGNOSIS AND TREATMENT CDT ASSIGNMENT OF BENEFITS Routine 04/25/2020 3:49 PM CDT documented in this encounter Results Not on filedocumented in this encounter Insurance Payer Benefit Plan / Subscriber ID Effective Dates Phone Addre ss Type Group [facility] [id number] 2012-Present Medicaid COMM PLAN - PLUS MANAGED MEDICAID documented as of this encounter
--- OUTSIDE RECORDS SUMMARY | 2020-05-15 19:41 | XMS REPORT | Summary of Care ---
:1960 Author Organization [facility] Address [address] [place] [id number] Care Team Providers Name Role Phone Rome Moran Primary Care Provider Reason for Referral Radiology Services (Routine) Status Reason Specialty Diagnoses / Referred By Referred To Procedures Contact Contact New Request Diagnostic Diagnoses Post-menopausal bleeding Edilma Escobar, Radiology Procedures US PELVIS COMPLETE WITH TRANSVAGINAL [address] [place] [address] [phone] Reason for Visit Reason Comments POST MENOPAUSAL BLEEDING Encounter Details Date Type Department Care Team Description 04/14/2020 Office Visit [facility] Edilma Escobar MD Post-menopausal Healthcare- [address] mathias (Primary Dx) [address] [place] [address], [address] [place] [phone] Allergies Active Allergy Reactions Severity Noted Date Comments Codeine Itching Medium 08/30/2015 documented as of this encounter (statuses as of 04/14/2020) Medications Medication Sig Dispensed Refills Start Date [...] both eyes daily. fluticasone propionate Use 1 [place] in 0 03/15/2019 Active 50 mcg/actuation nasal [...] as of this encounter (statuses as of 04/14/2020) Active Problems Problem Noted Date Morbid obesity with body mass index of 40.0-49.9 10/06 VIVEK on CPAP Hypothyroidism COPD (chronic obstructive pulmonary disease) Bipolar affective disorder Wears partial dentures documented as of this encounter (statuses as of 04/14/2020) Social History Tobacco Use Types Packs/Day Years Used Date Former Smoker Cigarettes Smokeless Tobacco: Never Used Alcohol Use Drinks/Week oz/Week Comments Yes 0 Standard drinks or equivalent 0.0 occasionaly Sex Assigned at Date Recorded Not on file Job Start Date Occupation Industry Not on file Not on file Not on file Travel History Travel Start Travel End No recent travel history available. COVID-19 Exposure Response Date Recorded In the last month, have you been in contact with No / Unsure 04/14/2020 1:49 PM CDT someone who was confirmed or suspected to have Coronavirus / COVID-19? documented as of this encounter Last Filed Vital Signs Vital Sign Reading Time Taken Comments Blood Pressure 111/65 04/14/2020 1:50 PM CDT Pulse 72 04/14/2020 1:50 PM CDT Temperature 36.9 C (98.5 F) 04/14/2020 1:50 PM CDT Respiratory Rate 18 04/14/2020 1:50 PM CDT Oxygen Saturation - - Inhaled Oxygen Concentration - - Weight 125.9 kg (277 lb 9.6 oz) 04/14/2020 1:50 PM CDT Height 175.3 cm (5' 9") 04/14/2020 1:50 PM CDT Body Mass Index 40.99 04/14/2020 1:50 PM CDT documented in this encounter Patient Instructions Patient InstructionsFilomena Alba MA - 04/14/2020 1:30 PM CDT Patient Education Dysfunctional Uterine Bleeding Dysfunctional uterine bleeding, also called abnormal uterine bleeding, is a condition in which bleeding is abnormaland occurs at unexpected times of the month. This happens because of changes in the hormones that help control a womans menstrual cycle each month. The bleeding may be heavier or warehouse unloader than normal. If you have heavy bleeding often, this can lead to a problem called anemia.With anemia, your red blood cell count is too low. Red blood cells help carry oxygen throughout your body.Severe anemia may cause you to look pale and feel very weak or tired. You might also become short of breath easily. To treat dysfunctional uterine bleeding, medicines are often tried first. If these dont help, or if you have additional symptoms or have reached menopause, further testing and treatments may be needed. Discuss all of your options with your provider. Home care Medicines If youre prescribed medicines, be sure to take them as directed. Some of the more common medicines you may be prescribed include: Hormone therapy (Options include most methods of hormonal control such as pills, shots, or a hormone-releasing IUD) Nonsteroidal anti-inflammatory drugs (NSAIDs), such as ibuprofen Iron supplements, if you have anemia General care Get plenty of rest if you tire easily. Avoid heavy exertion. To help relieve pain or cramping that may occur with bleeding, try using a heating pad on the lower belly or back. A warm bath may also help. Follow-up care Follow up with your healthcare provider, or as directed. When to seek medical advice Call your healthcare provider right away if: Bleeding becomes heavy (soaking 1 pad or tampon every hour for 3 hours) Increased abdominal pain Irregular bleeding worsens or does not get better even with treatment Fever of 100.4F (38C) or higher, or as directed by your provider Signs of anemia, such as pale skin, extreme fatigue or weakness, or shortness of breath Dizziness or fainting [employer] last reviewed this educational content on 07/23/201719997373-3130 The [employer]. [address] [place] [address]. All rights reserved. This information is not intended as a substitute for professional medical care. Always follow your healthcare professional's instructions. Patient Education Understanding Uterine Bleeding Your uterine bleeding may be heavy. Or you may have bleeding between periods. These problems may be caused by hormonal imbalance. Or they can be caused by uterine growths, an intrauterine device (IUD),bleeding disorder, or . Hormonal imbalance Your menstrual cycle is controlled by hormones. The hormones include estrogen and progesterone. Sometimes there is too much or too little ofone or both of these hormones, causing an imbalance. This can cause heavy periods. Or it can cause bleeding between periods. Causes of hormonal imbalance can include: Hormonal changes in teens and in women nearing menopause Diabetes, thyroid disease, or other medical problems Obesity Stress Strenuous exercise Anorexia, an eating disorder Uterine growths There are different kinds of uterine growths. These include: Fibroids. These are round knots of noncancer (benign) muscle tissue in the uterus. Polyps. These are soft tissue growths in the uterine lining. They often extend into the uterus. Adenomyosis. This is when the uterine lining grows into the muscle wall. Hyperplasia. This is when the uterine lining gets too thick or grows too much. Endometrial cancer. This is uncontrolled growth of part of the uterine lining. Other causes of uterine bleeding There are other causes of uterine bleeding. These include: IUD (intrauterine device). This is a method of control. Some IUDs contain hormones. Bleeding disorders. This is when the blood can't clot properly. Treatment Your healthcare provider can help diagnose the cause of your bleeding problem. He or she will work with you to plan treatment as needed. [employer] last reviewed this educational content on 02/20/201719992888-1668 The [employer]. [address] [place] [address]. All rights reserved. This information is not intended as a substitute for professional medical care. Always follow your healthcare professional's instructions. Patient Education Endometrial Biopsy Endometrial biopsy is a procedure used to study the lining of the uterus. The uterus is also called the endometrium. The biopsy is usually done in your healthcare providers office. During the biopsy, small tissue samples are taken from inside the uterus. These are then sent to a lab for study. If any problems are found, you and your healthcare provider will discuss treatment options. The biopsy usually takes only a fewminutes, and you can often go back to your normal routine as soon as the procedure is over. Reasons for the procedure Endometrial biopsy may help pinpoint the cause of certain problems. These include: Abnormal Pap test results Bleeding after menopause Bleeding associated with hormone therapy Having certain types of cancer Heavy or irregular menstrual periods Prolonged bleeding Trouble getting (fertility problems) Damage to the uterine wall (very rare) What are the risks? Problems with endometrial biopsy are rare, but can include: Bleeding Damage to the uterine wall (very rare) Infection Getting ready for the procedure Yourhealthcare providerwill ask about your health and any medicines you take, like blood thinners. Before your biopsy, you may have tests to make sure youre not or have an infection. You may also be asked to sign a consent form. You should do the following 1 to 2 days before the biopsy: Don't use creams or other vaginal medicines. Don't douche. Ask your healthcare provider if you should take pain medicines shortly before the test. During the biopsy During the biopsy, you will likely experience the following: You will be asked to lie on an exam table with your knees bent, just as you do for a Pap test. You may have a brief pelvic exam. An instrument called a speculum is then inserted into the vagina to hold it open. An antiseptic solution may be applied to the cervix. The cervix may also be numbed with an anesthetic or dilated to widen the opening. A small tube is passed through the cervix into the uterus. It is normal to feel some cramping when the tube is inserted. But tell your healthcare provider if you have severe cramping or are very uncomfortable. Using mild suction, samples are taken from the uterine lining. You may feel pinching or additional cramping when this is done. The tube and speculum are then removed and the samples are sent to a lab for study. After the procedure After the procedure, you may experience the following: If you feel lightheaded or dizzy, you can rest on the table until youre ready to get dressed. For a few hours, you may feel some mild cramping. This can usually be relieved with nkmc-exq-pumfxkv pain medicines. You may have some bleeding for a few days. Use pads instead of tampons. Dont douche or use any vaginal medicines unless your healthcare provider says its OK. Ask your healthcare provider when its OK to have sex again. Follow-up care It will take about a week for the biopsy results to come back from the lab. Then you and your healthcare provider can discuss the results. These may show that no treatment is required. Or you may be scheduled for a follow-up appointment and more tests. If your biopsy was done for fertility problems, be sure to record the day when your next period begins. Call your healthcare provider Call your healthcare provider if you have any of the following: Fever of100.4F (38C) or higher, or as directed by your healthcare provider Foul-smelling or unusual vaginal discharge Heavy bleeding (soaking more than 1 pad an hour for 2 hours) Severe cramping or increasing pain [employer] last reviewed this educational content on 02/20/201719994216-6223 The [employer]. [address] [place] [address], [place] [address]. All rights reserved. This information is not intended as a substitute for professional medical care. Always follow your healthcare professional's instructions. Patient Education Endometrial Biopsy Endometrial biopsy is a procedure used to study the lining of the uterus. The uterus is also called the endometrium. The biopsy is usually done in your healthcare providers office. During the biopsy, small tissue samples are taken from inside the uterus. These are then sent to a lab for study. If any problems are found, you and your healthcare provider will discuss treatment options. The biopsy usually takes only a fewminutes, and you can often go back to your normal routine as soon as the procedure is over. Reasons for the procedure Endometrial biopsy may help pinpoint the cause of certain problems. These include: Abnormal Pap test results Bleeding after menopause Bleeding associated with hormone therapy Having certain types of cancer Heavy or irregular menstrual periods Prolonged bleeding Trouble getting (fertility problems) Damage to the uterine wall (very rare) What are the risks? Problems with endometrial biopsy are rare, but can include: Bleeding Damage to the uterine wall (very rare) Infection Getting ready for the procedure Yourhealthcare providerwill ask about your health and any medicines you take, like blood thinners. Before your biopsy, you may have tests to make sure youre not or have an infection. You may also be asked to sign a consent form. You should do the following 1 to 2 days before the biopsy: Don't use creams or other vaginal medicines. Don't douche. Ask your healthcare provider if you should take pain medicines shortly before the test. During the biopsy During the biopsy, you will likely experience the following: You will be asked to lie on an exam table with your knees bent, just as you do for a Pap test. You may have a brief pelvic exam. An instrument called a speculum is then inserted into the vagina to hold it open. An antiseptic solution may be applied to the cervix. The cervix may also be numbed with an anesthetic or dilated to widen the opening. A small tube is passed through the cervix into the uterus. It is normal to feel some cramping when the tube is inserted. But tell your healthcare provider if you have severe cramping or are very uncomfortable. Using mild suction, samples are taken from the uterine lining. You may feel pinching or additional cramping when this is done. The tube and speculum are then removed and the samples are sent to a lab for study. After the procedure After the procedure, you may experience the following: If you feel lightheaded or dizzy, you can rest on the table until youre ready to get dressed. For a few hours, you may feel some mild cramping. This can usually be relieved with uxox-tda-gxlquzx pain medicines. You may have some bleeding for a few days. Use pads instead of tampons. Dont douche or use any vaginal medicines unless your healthcare provider says its OK. Ask your healthcare provider when its OK to have sex again. Follow-up care It will take about a week for the biopsy results to come back from the lab. Then you and your healthcare provider can discuss the results. These may show that no treatment is required. Or you may be scheduled for a follow-up appointment and more tests. If your biopsy was done for fertility problems, be sure to record the day when your next period begins. Call your healthcare provider Call your healthcare provider if you have any of the following: Fever of100.4F (38C) or higher, or as directed by your healthcare provider Foul-smelling or unusual vaginal discharge Heavy bleeding (soaking more than 1 pad an hour for 2 hours) Severe cramping or increasing pain [employer] last reviewed this educational content on 02/20/201719997113-3352 The [employer]. [address] [place] [address]. All rights reserved. This information is not intended as a substitute for professional medical care. Always follow your healthcare professional's instructions. documented in this encounter Progress Notes Edilma Escobar MD - 04/14/2020 1:30 PM CDT Chief complaint: Chief Complaint Patient presents with POST MENOPAUSAL BLEEDING 59 year-old postmenopausal lady presents to the office with concerns of postmenopausal bleeding. Shereached menopause 10 years ago Ist bleeding episode was 2 weeks ago- spotting after she completed an course of antibiotics for a groin abscess. She then bleed again last weeks- this time around heavier, bright red that she had to wear a pad on two separate ocasions. She reports that she is currently cramping like she is about to have a period. She denies rectal bleeding. Last colonoscopy was a year ago and it was normal. She has never taken HRT and doesn't take any OTC hormonal supplements Histories OB History Para Term AB Living 2 1 1 1 SAB TAB Ectopic Multiple Live Births 1 # Outcome Date GA Lbr Johann/2nd Weight Sex Delivery Anes PTL Lv 2 SAB 1 Term 40w0d , C Past Medical History: Diagnosis Date Anesthesia complication Pt states she wakes up violently Bipolar affective disorder Cataract COPD (chronic obstructive pulmonary disease) Hypothyroidism VIVEK on CPAP Panic attacks Seasonal allergies Wears partial dentures No family history on file. No family status information on file. Past Surgical History: Procedure Laterality Date APPENDECTOMY SECTION EPIDURAL STEROID INJECTION MAGNETIC RESONANCE IMAGING UNDER ANESTHESIA 10/06/2019 Surgeon: Anesthesiology; [facility] PHACOEMULSIFICATION OF CATARACT WITH INTRAOCULAR LENS IMPLANT Left 08/31/2015 Surgeon: Freddy Guzmán MD; [facility] PHACOEMULSIFICATION OF CATARACT WITH INTRAOCULAR LENS IMPLANT Right 10/05/2015 Surgeon: Freddy Guzmán MD; Location: [facility] OR LOCATION Social History Socioeconomic History Marital status: Spouse name: Not on file Number of children: Not on file Years of education: Not on file Highest education level: Not on file Occupational History Not on file Social Needs Financial resource strain: Not on file Food insecurity: Worry: Not on file Inability: Not on file Transportation needs: Medical: Not on file Non-medical: Not on file Tobacco Use Smoking status: Former Smoker Types: Cigarettes Smokeless tobacco: Never Used Substance and Sexual Activity Alcohol use: Yes Alcohol/week: 0.0 standard drinks Comment: occasionaly Drug use: No Sexual activity: Not Currently Comment: 3 years ago Lifestyle Physical activity: Days per week: Not on file Minutes per session: Not on file Stress: Not on file Relationships Social connections: Talks on phone: Not on file Gets together: Not on file Attends lutheran service: Not on file Active member of club or organization: Not on file Attends meetings of clubs or organizations: Not on file Relationship status: Not on file Intimate partner violence: Fear of current or ex partner: Not on file Emotionally abused: Not on file Physically abused: Not on file Forced sexual activity: Not on file Other Topics Concern Not on file Social History Narrative Patient denies any abuse at home Patient has 4 cats. Taoism preference:none Social History Substance and Sexual Activity Sexual Activity Not Currently Comment: 3 years ago Labs No new labs Radiology No new radiology. Allergies Vikki is allergic to codeine. Medications Vikki has a current medication list which includes the following prescription(s): clonazepam, fluticasone propionate, tizanidine, tramadol, albuterol, albuterol, carvedilol, mometasone, mupirocin, aspirin, furosemide, lisinopril, acetazolamide, atorvastatin, latanoprost, roflumilast, umeclidinium-vilanterol, aspirin, cyclobenzaprine, divalproex er, fluticasone furoate-vilanterol, levothyroxine, loratadine, and tiotropium. Review of Systems Constitutional: Negative. HENT: Negative. Eyes: Negative. Respiratory: Negative. Breasts: Negative. Cardiovascular: Negative. Gastrointestinal: Positive for abdominal pain. Genitourinary: Positive for vaginal bleeding. Musculoskeletal: Negative. Skin: Negative. Neurological: Negative. Psychiatric/Behavioral: Negative. Endocrine: Endocrine negative BP 111/65 (BP Location: Left arm, Patient Position: Sitting, BP CUFF SIZE: Adult Large) | Pulse 72| Temp 36.9 C (98.5 F) (Oral) | Resp 18 | Ht 5' 9" (1.753 m) | Wt 277 lb 9.6 oz (125.9 kg) |BMI 40.99 kg/m Pregravid BMI: Could not be calculated Physical Exam Vitals reviewed. Constitutional: She is oriented to person, place, and time. She appears well- developed and well-groomed. Her body habitus is obese. Abdominal: Abdomen is soft. No mass palpated. No tenderness present. There is no guarding. Obese with panus Neuro/Psychiatric: She has a normal mood and affect. She is oriented to person, place, and time. External genitalia: Normal external genitalia appropriate for age. Vagina:No lesion inspected. No abnormal vaginal discharge found. Atrophic Cervix: Atrophic in appearance Uterus: Unable to assess adequately due to habitus Adnexa: Normal left adnexa and normal right adnexa ENDOMETRIAL BIOPSY PROCEDURE NOTE Preoperative Diagnoses: Post menopausal bleeding The risks, benefits and alternatives were discussed. The patient voiced her understanding. She wished to proceed and a verbal consent was obtained. Patient's allergies were confirmed. Patient has been identified by name and and will be undergoing a endometrial biopsy. Patient, procedure and site have been confirmed by the following clinicians: Edilma Escobar MDTimeout performedby Edilma Escobar MD at 2:30 PM. Procedure: A speculum placed in vagina with good visualization of cervix; cervix swabbed with Betadine solution. Anterior lip of cervix grasped with single toothed tenaculum; ECC was performed and endometrial sampling achieved with Pipelle sampling unit. Tissue collected, labeled and sent to Pathology. Instruments removed, hemostasis achieved. The patient tolerated the procedure well and there were no complications. Post-procedure instructions given. Patient verbalized understanding. Findings Uterus sounded to 6 cm Tissue amount collected: small Assessment/Plan Post-menopausal bleeding (primary encounter diagnosis) Explained that the most common etiology for postmenopausal bleeding is atrophic changes ( atrophic vaginitis), vaginal infections but it can be caused by polyps or fibroids. We also need to rule out premalignant causes like Endometrial hyperplasia or atypia, cervical pathologies and endometrial cancer. The typical evaluation usually include pelvic US, +/- sonohysterogram and endometrial biopsy. I explained that I would like to procedure with and endometrial biopsy today in the office, if feasible.The procedure was reviewed in detail. Patient accepted Plan: Follow up in 4 weeks after pelvic sonogram to discuss results This visit did not involve counseling and coordination that comprised more than 50% of the visit time. Edilma Escobar MD documented in this encounter Plan of Treatment Date Type Specialty Care Team Description 05/12/2020 Office Visit Obstetrics & Gynecology Nette Escobar MD [address] [place] [address] Dr. Daly [place], [place] [phone] 06/02/2020 Office Visit Obstetrics & Gynecology Nette Escobar MD [address] [place] [address] Dr. [place], [place] [phone] Name Type Priority Associated Diagnoses Order S [facility] SURGICAL PATHOLOGY EXAM LAB Routine Post-menopausal E xpected: bleeding 04/14/2020, Exp ires: 04/14/2021 US PELVIS COMPLETE WITH IMAGING Routine Post-menopausal E xpected: TRANSVAGINAL bleeding 04/14/2020, Exp ires: 04/14/2021 Health Maintenance Due Date Last Done Comments HEPATITIS C (HCV) SCREEN 1960 PNEUMOCOCCAL 0-64 YEARS COMBINED SERIES (1 of 1 - 1967 PPSV23) DTaP,Tdap,and Td Vaccines (1 - Tdap) 1972 Breast Cancer Screening (MAMMOGRAM) 2001 COLONOSCOPY 2011 Zoster Recombinant Vaccine (SHINGRIX) (1 of 2) 2011 LUNG CANCER SCREEN: Recommended for age 55-80 with 30 2016 + pack year history INFLUENZA VACCINE (#1) 2020 Depression Screening 10/06/2020 10/06/2019 PAP SMEAR 05/28/2022 05/28/2019 documented as of this encounter Implants Implanted Type Area Regional Guide Device Shelf Model / Serial Identifier Expiration / Lot Date Lens LENS Left: Eye Perez 03/21/2020 [id number] / Implanted: Qty: 1 on 08/31/2015 by Freddy Guzmán MD at [facility] 8 [id number] / [id number] Lens LENS Right: Perez 02/20/2020 [id number] / Implanted: Qty: 1 on 10/05/2015 by Freddy Guzmán MD at [facility] Eye 0 [id number] / [id number] documented as of this encounter Results Not on filedocumented in this encounter Visit Diagnoses Diagnosis Post-menopausal bleeding - Primary Postmenopausal bleeding documented in this encounter Insurance Payer Benefit Plan / Subscriber ID Effective Dates Phone Addre ss Type Group [facility] xxxxxxxxx 2012-Present Medicaid COMM PLAN - PLUS MANAGED MEDICAID documented as of this encounter
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
--- OUTSIDE RECORDS SUMMARY | 2020-05-15 19:41 | XMS REPORT | Summary of Care ---
:1960 Author Organization [facility] - Health Address [address] [place] [address] Care Team Providers Name Role Phone Rome Moran Primary Care Provider Encounter Details Date Type Department Care Team Description 04/13/2020 Orders Only [facility] Doctor Unassigned, No [address] [facility] [place] [address] [place] [address] Allergies Active Allergy Reactions Severity Noted Date Comments Codeine Itching Medium 08/30/2015 documented as of this encounter (statuses as of 04/22/2020) Medications Medication Sig Dispensed Refills Start Date [...] both eyes daily. fluticasone propionate Use 1 [place] in 0 03/15/2019 Active 50 mcg/actuation nasal [...] as of this encounter (statuses as of 04/22/2020) Active Problems Problem Noted Date Morbid obesity with body mass index of 40.0-49.9 10/06 VIVEK on CPAP Hypothyroidism COPD (chronic obstructive pulmonary disease) Bipolar affective disorder Wears partial dentures documented as of this encounter (statuses as of 04/22/2020) Social History Tobacco Use Types Packs/Day Years [...] Description 04/25/2020 Appointment Radiology Edilma Escobar MD [address] [place] [address] [phone] 05/12/2020 Office Visit Obstetrics & Gynecology Nette Escobar MD [address] [place] [address] [phone] 06/02/2020 Office Visit Obstetrics & Gynecology Nette Escobar MD [address] [place] [address] [phone] Health Maintenance Due Date Last [...] of this encounter Implants Implanted Type 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 Device Shelf Model / Serial Identifier Expiration / Lot Date Lens LENS Left: Eye Perez 03/21/2020 SN60WF / Implanted: Qty: 1 on 08/31/2015 by Freddy Guzmán MD at [facility] 8 [id number] / [id number] Lens LENS Right: Perez 02/20/2020 [id number] / Implanted: Qty: 1 on 10/05/2015 by Freddy Guzmán MD at [facility] Eye 6 [id number] / [id number] documented as of this encounter Procedures Procedure Name Priority Date/Time Associated Diagnosis Comme nts REFERRAL- Routine 04/13/2020 12:01 AM CDT REQUEST/RESPONSE documented in this encounter Results Not on filedocumented in this encounter Insurance Payer Benefit Plan / Subscriber ID Effective Dates Phone Addre ss Type Group [facility] xxxxxxxxx 2012-Present Medicaid COMM PLAN - PLUS MANAGED MEDICAID documented as of this encounter
--- OUTSIDE RECORDS SUMMARY | 2020-05-15 19:41 | XMS REPORT | Clinical Summary ---
:1960 Author Organization [facility] Address [address] [place] [address] Care Team Providers Name Role Phone Unavailable [...] Not on file Results Not on fileafter 05/15/2019 Insurance Payer Benefit Plan / Subscriber ID Type Phone Address Group MEDICAID - MEDICAID [facility] xxxxxxxxx Medicaid Contracted MGD CARE PLAN Advance Directives For more information, please contact:[address] [phone] Code Status Date Activated Date Inactivated Comments Full Code 02/24/2017 8:19 AM 02/26/2017 1:59 PM This code status was determined by: Patient
--- OUTSIDE RECORDS SUMMARY | 2020-05-15 19:42 | XMS REPORT | Summary of Care ---
:1960 Author Organization [facility] Address [address] [place] [address] Care Team Providers Name Role Phone Rome Moran Primary Care Provider Reason for Referral Radiology Services (Routine) Status Reason Specialty Diagnoses / Referred By Referred To Procedures Contact Contact Closed Diagnostic Diagnoses Post-menopausal bleeding Edilma Escobar, Radiology Procedures US PELVIS COMPLETE WITH TRANSVAGINKERI DIETRICH [address] [place] [address] Dr. Buckley [address] [place] [address] Reason for Visit Radiology Services (Routine) Status Reason Specialty Diagnoses / Referred By Referred To Procedures Contact Contact Closed Diagnostic Diagnoses Post-menopausal bleeding Edilma Escobar, Radiology Procedures US PELVIS COMPLETE WITH LAQUITA DIETRICH [address] [place] [address] Dr. Buckley [address] [place] [address] Encounter Details Date Type Department Care Team Description 04/25/2020 Hospital Encounter [facility] Nette Escobar MD Arrived [facility] [address] [place] [address] [address] [facility] [address] gissell Buckley [address] [place] [address] [place], [place] [phone] [address] Allergies Active Allergy Reactions Severity Noted Date Comments Codeine Itching Medium 08/30/2015 documented as of this encounter (statuses as of 04/26/2020) Medications Medication Sig Dispensed Refills Start Date [...] both eyes daily. fluticasone propionate Use 1 [place] in 0 03/15/2019 Active 50 mcg/actuation nasal [...] as of this encounter (statuses as of 04/26/2020) Active Problems Problem Noted Date Morbid obesity with body mass index of 40.0-49.9 10/06 VIVEK on CPAP Hypothyroidism COPD (chronic obstructive pulmonary disease) Bipolar affective disorder Wears partial dentures documented as of this encounter (statuses as of 04/26/2020) Social History Tobacco Use Types Packs/Day Years Used Date Former Smoker Cigarettes Smokeless Tobacco: Never Used Alcohol Use Drinks/Week oz/Week Comments Yes 0 Standard drinks or equivalent 0.0 occasionaly Sex Assigned at Date Recorded Not on file COVID-19 Exposure Response Date Recorded In the last month, have you been in contact with No / Unsure 04/25/2020 3:50 PM CDT someone who was confirmed or suspected to have Coronavirus / COVID-19? documented as of this encounter Last Filed Vital Signs Not on filedocumented in this encounter Plan of Treatment Date Type Specialty Care Team Description 05/12/2020 Office Visit Obstetrics & Gynecology Nette Escobar MD [address] [place] [address] Dr. Buckley [address] [place] [phone] 06/02/2020 Office Visit Obstetrics & Gynecology Nette Escobar MD [address] [place] [address] Dr. 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 Salesperson Meats Device Shelf Model / Serial Identifier Expiration / Lot Date Lens LENS Left: Eye Perez 03/21/2020 SN60WF / Implanted: Qty: 1 on 08/31/2015 by Freddy Guzmán MD at [facility] 6 [id number] / [id number] Lens LENS Right: Perez 02/20/2020 SN60WF / Implanted: Qty: 1 on 10/05/2015 by Freddy Guzmán MD at [facility] Eye 3 [id number] / [id number] 1 documented as of this encounter Results Not on filedocumented in this encounter Visit Diagnoses Diagnosis Post-menopausal bleeding Postmenopausal bleeding documented in this encounter Insurance Payer Benefit Plan / Subscriber ID Effective Dates Phone Addre ss Type Group [facility] [id number] 2012-Present Medicaid COMM PLAN - PLUS MANAGED MEDICAID documented as of this encounter
--- OUTSIDE RECORDS SUMMARY | 2020-05-15 19:42 | XMS REPORT | Continuity of Care Document ---
:1960 Author Organization [facility] Address [address] [place] [address] Care Team Providers Name Role Phone Luz DIETRICH L Attending Clinician Doctor Unassigned, Name Attending Clinician Unavailable KELLY Attending Clinician Unavailable KELLY Admitting Clinician Unavailable Problems Condition Condition Condition Status Onset Resolution Last Treating Co mments Source Name Details Category Date Date Treatment Clinician Date Tobacco Tobacco Disease Active [facility]06 [facility] 00 [place] Hypoxemia Hypoxemia Disease Active [facility] 00 [place] COPD COPD Disease Active [facility] exacerbati exacerbati 6-05 Pema kes - on on 00:00: Medical 00 [place] Acute Acute Disease Active [facility] hypercapni hypercapni 6-05 Epma kes - c c 00:00: Medical respirator respirator 00 Ce nter y failure y failure Allergies, Adverse Reactions, Alerts This patient has no known allergies or adverse reactions. Social History Social Habit Start Date Stop Date Quantity Comments Source Sex Assigned At [facility] Medications Ordered Filled Start Stop Current [...] 250mg QD Take [address] [facility] n 6-07 tablet [facility] - (ZITHROMAX) 00:00: (250 mg Med ical 250 MG 00 total) by Center tablet mouth daily Take by mouth as directed.. Procedures This patient has no known procedures. Encounters Start End Encounter Admission Attending Care Care Encounter Source Date/Time Date/Time Type Type Clinicians Facility Department ID 2020-04-25 2020-04-25 [facility] [id number] 15:50:23 23:59:00 Encounter Edilma Amador [id number] [place] 4.2.7.2.686 [place] [phone] [id number] 2020-04-25 2020-04-25 Orders Doctor NESS [id number] 00:00:00 00:00:00 Only UnassignedVIRGILIO [id number] [place] [address]686 [id number] [id number] 2020-04-14 2020-04-14 Office [facility] [id number] 14:15:54 14:56:38 Visit Edilma Amador [id number] [place] [id number] [facility] [phone] [address] 2020-04-13 2020-04-13 Orders Doctor NESS [id number] 00:00:00 00:00:00 Only UnassignedVIRGILIO [id number] [place]686 [id number] [id number] Results Test Description Test Time Test Comments [...] NOT 1092) ACCURATE CRE ATININE CLEARANCE IN [place] EDICTING GLOMERULAR FILT RATION RATE. ESTIMATED GFR [...] code = 412) PLATELET COUNT (BEAKER) (test 137 K/CU MM 150-430 L code = 756) MEAN PLATELET VOLUME (BEAKER) 7.2 fL 6.5-10.5 (test code = 754) NUCLEATED RED BLOOD CELLS 0 /100 WBC 0-0 (BEAKER) (test code = 413) 0.00POCT-GLUCOSE [id number] 17:50:00 Test Item Value Reference Range Interpretation Comments POC-GLUCOSE METER 118 mg/dL 70-110 H TESTED AT [facility] 6720 (BEAKER) (test code = KISHA Pabon [facility] 1538) [id number] POCT-GLUCOSE [id number] 11:59:00 Test Item Value Reference Range Interpretation Comments POC-GLUCOSE METER 247 mg/dL 70-110 H TESTED AT [place] [address] (BEAKER) (test code = KISHA Pabon [facility] 1538) [address] POCT-GLUCOSE [id number] 07:54:00 Test Item Value Reference Range Interpretation Comments POC-GLUCOSE METER 141 mg/dL 70-110 H TESTED AT [place] [address] (BEAKER) (test code = KISHA Pabon [facility] 1538) [address] CBC W/PLT COUNT & AUTO [id number] 03:45:00 Test Item Value Reference Range Interpretation Comments WHITE BLOOD CELL COUNT (BEAKER) 4.9 K/ L 4.0-10.0 (test code = 775) RED BLOOD CELL COUNT (BEAKER) 4.03 M/ L 4.00-5.00 (test code = [...] K/ L 0.00-0.20 (test code = 417) [id number] 03:29:00 Test Item Value Reference Range Interpretation Comments MAGNESIUM (BEAKER) 1.8 mg/dL 1.6-2.6 Specimen slightly (test code = 627) hemolyzed BASIC METABOLIC [id number] 03:29:00 Test Item Value Reference Range Interpretation [...] NOT APPLICABLE FOR DIALYSIS PATIEN TS. POCT-GLUCOSE [id number] 00:05:00 Test Item Value Reference Range Interpretation Comments POC-GLUCOSE METER 117 mg/dL 70-110 H TESTED AT [place] [address] (BEAKER) (test code = KISHA Pabon [place] 1538) [address] POCT-GLUCOSE [id number] 18:17:00 Test Item Value Reference Range Interpretation Comments POC-GLUCOSE METER 141 mg/dL 70-110 H TESTED AT [place] [address] (BEAKER) (test code = KISHA Pabon [place] 1538) [address] CREATINE KINASE (CK), TOTAL AND [id number] 15:43:00 Test Item Value Reference Range Interpretation Comments CREATINE KINASE TOTAL (BEAKER) 31 U/L 29-200 (test code = 380) CREATINE KINASE-MB (BEAKER) (test 1.3 ng/mL 0.0-6.6 code = 750) CREATINE KINASE-MB INDEX (BEAKER) 4.2 % (test code = 395) Effective 08/09/2014: CK-MB Reference Range ChangeNew: 0.0-6.6 Previous: 0.0-4.9CK-MB Reference Range:<6.7 Normal6.7-10.0 Borderline>10.0 AbnormalBLOOD GAS, [id number] 15:26:00 Test Item Value Reference Range Interpretation [...] (test code = 1819) 35.0 % POCT-GLUCOSE [id number] 11:45:00 Test Item Value Reference Range Interpretation Comments POC-GLUCOSE METER 122 mg/dL 70-110 H TESTED AT [place] [address] (BEAKER) (test code = KISHA Pabon [place] 1538) [address] CREATINE KINASE (CK), TOTAL AND [id number] 10:29:00 Test Item Value Reference Range Interpretation Comments CREATINE KINASE TOTAL (BEAKER) 31 U/L 29-200 (test code = 380) CREATINE KINASE-MB (BEAKER) (test 1.5 ng/mL 0.0-6.6 code = 750) CREATINE KINASE-MB INDEX (BEAKER) 4.8 % (test code = 395) Effective 08/09/2014: CK-MB Reference Range ChangeNew: 0.0-6.6 Previous: 0.0-4.9CK-MB Reference Range:<6.7 Normal6.7-10.0 Borderline>10.0 AbnormalTROPONIN [id number] 10:29:00 Test Item Value Reference Range Interpretation [...] renalfailure, acidosis, acute neurological disease, and persistent tachyarrhythmia.[id number] 10:22:00 Test Item Value Reference Range Interpretation Comments PARTIAL THROMBOPLASTIN TIME 22.5 seconds 22.5-36.0 (BEAKER) (test code = 760) PROTHROMBIN TIME/[id number] 10:21:00 Test Item Value Reference Range Interpretation Comments PROTIME (BEAKER) (test code = 12.4 seconds 11.7-14.7 759) INR (BEAKER) (test code = 370) 0.9 <=5.9 RECOMMENDED COUMADIN/WARFARIN INR THERAPY RANGESSTANDARD DOSE: 2.0 - 3.0 Includes: PROPHYLAXIS forvenous thrombosis, systemic embolization; TREATMENT for venous thrombosis and/or pulmonary embolus.HIGH RISK: Target INR is 2.5-3.5 for patients with mechanical heart valves.BLOOD GAS, [id number] 10:17:00 Test Item Value Reference Range Interpretation [...] (test code = 1819) 40.0 % PLATELET [id number] 10:13:00 Test Item Value Reference Range Interpretation Comments PLATELET COUNT (BEAKER) (test 111 K/CU MM 150-430 L code = 756)
[2020-05-15 20:32] LABS: Protime INR 0.94
--- NOTE | 2020-05-15 20:32 | RAD REPORT ---
EXAM DESCRIPTION: Nel Single View05/15/2020 8:02 pm CLINICAL HISTORY: Cough COMPARISON: 2018 FINDINGS: The lungs appear clear of acute infiltrate. The heart is normal size IMPRESSION: No acute abnormalities displayed
[2020-05-15 20:35] LABS: Absolute Lymphocytes (CBC) 1.3 K/uL (0.7-4.9); Basophils % 0.5 % (0-1.3); Hematocrit 43.6 % (36.0-45.0); Lymphocytes % 18.1 % (15.3-44.8); MPV 7.7 fL (7.6-11.3); RBC Red Blood Cell Count 5.08 M/uL (3.86-4.86)
[2020-05-15 20:59] LABS: ALT/SGPT 11 U/L (12-78); AST/SGOT 13 U/L (15-37); Albumin 3.2 g/dL (3.4-5.0); Alkaline Phosphatase 94 U/L (45-117); BUN Blood Urea Nitrogen 17 mg/dL (7-18); Bilirubin Direct 0.2 mg/dL (0-0.2); Bilirubin Total 0.6 mg/dL (0.2-1.0); Ferritin 40.2 ng/mL (8-388); Glucose Level 117 mg/dL (74-106); Lipase 169 U/L (73-393); Potassium 4.2 mmol/L (3.5-5.1); Protein, Total 7.5 g/dL (6.4-8.2); Sodium Level 140 mmol/L (136-145); Troponin (Emerg Dept Use Only) < 0.02 ng/mL (0.0-0.045)
[2020-05-15 21:03] LABS: Bicarbonate > 45 mmol/L (21-32)
--- NOTE | 2020-05-15 22:30 | ER ---
Nurse's Notes [facility] Name: Vikki Zamudio Age: 59 yrs Sex: Female : 1960 Arrival Date: 05/15/2020 Time: 19:40 Bed 27 Private MD: Diagnosis: Chronic obstructive pulmonary disease with (acute) exacerbation Presentation: 05/15 19:40 Chief complaint: Patient states: SOB for 2 weeks, O2 3L NC 65% at home. NRB en route, ll1 sat up to 95%. Coronavirus screen: Client denies travel out of the [place] in the last 14 days. At this time, the client does not indicate any symptoms associated with coronavirus-19. Coronavirus screen: cough unrelated to allergies, difficulty breathing, Client presents with at least one sign or symptom that may indicate coronavirus-19. Standard/surgical mask placed on the client. Ebola Screen: Patient denies travel to an Ebola-affected area in the 21 days before illness onset. Initial Sepsis Screen: Does the patient meet any 2 criteria? RR > 20 per min. HR > 90 bpm. Risk Assessment: Do you want to hurt yourself or someone else? Patient reports no desire to harm self or others. Onset of symptoms was May 15, 2020. 19:40 Method Of Arrival: EMS: [facility] ll1 19:40 Acuity: LIZETH 2 ll1 20:43 Initial Sepsis Screen: Does the patient have a suspected source of infection? No. jd3 Patient's initial sepsis screen is negative. Triage Assessment: 20:35 Respiratory: Onset: The symptoms/episode began/occurred gradually, the patient has jd3 moderate shortness of breath. Historical: - Allergies: 19:44 No Known Allergies; ll1 - PMHx: 19:44 COPD; High Cholesterol; GERD; Hypertension; CHF; Hypothyroidism; Sleep Apnea; Panic ll1 Attacks; - Immunization history:: Adult Immunizations. - Social history:: Smoking status: Patient denies any tobacco usage or history of. Screenin:37 Abuse screen: Denies threats or abuse. Nutritional screening: No deficits noted. jd3 Tuberculosis screening: No symptoms or risk factors identified. Fall Risk Fall in past 12 months (25 points). IV access (20 points). Ambulatory Aid- None/Bed Rest/Nurse Assist (0 pts). Gait- Normal/Bed Rest/Wheelchair (0 pts). Assessment: 19:55 General: Appears in no apparent distress. uncomfortable, Behavior is calm, cooperative, jd3 appropriate for age. Pain: Denies pain. Neuro: Level of Consciousness is awake, alert, obeys commands, Oriented to person, place, time, situation. Cardiovascular: Denies chest pain, Capillary refill < 3 seconds Patient's skin is warm and dry. Rhythm is regular. Respiratory: Reports shortness of breath at rest Airway is patent Respiratory effort is labored, shallow, Respiratory pattern is symmetrical, tachypnea Breath sounds are diminished bilaterally. GI: No signs and/or symptoms were reported involving the gastrointestinal system. : No signs and/or symptoms were reported regarding the genitourinary system. EENT: No signs and/or symptoms were reported regarding the EENT system. Derm: Skin is intact, Skin is dry, Skin is normal, Skin temperature is warm. Musculoskeletal: Circulation, motion, and sensation intact. Range of motion: intact in all extremities. 20:43 Reassessment: Patient appears in no apparent distress at this time. No changes from jd3 previously documented assessment. Patient and/or family updated on plan of care and expected duration. Pain level reassessed. 21:28 Reassessment: Patient appears in no apparent distress at this time. No changes from jd3 previously documented assessment. Patient and/or family updated on plan of care and expected duration. Pain level reassessed. awaiting results. 22:25 Reassessment: Patient appears in no apparent distress at this time. No changes from jd3 previously documented assessment. Patient and/or family updated on plan of care and expected duration. Pain level reassessed. pt reporting she is ready to go home. provider notified. 22:25 Respiratory: Airway is patent Respiratory effort is even, labored, Respiratory pattern jd3 is symmetrical, tachypnea. Vital Signs: 19:40 BP 147 / 82; Pulse 92; Resp 26; Temp 99.1; Pulse Ox 85% on 4 lpm NC; Pain 8/10; ll1 20:43 BP 124 / 57; Pulse 78; Resp 25 S; Pulse Ox 97% on 3 lpm NC; jd3 21:29 BP 148 / 77; Pulse 93; Resp 24 S; Pulse Ox 96% on 3 lpm NC; jd3 22:41 BP 138 / 57; Pulse 76; Resp 23; Pulse Ox 95% on 3 lpm NC; jd3 23:34 BP 125 / 55; Pulse 74; Resp 25 S; Pulse Ox 98% on 3 lpm NC; jd3 ED Course: 19:40 Patient arrived in ED. ll1 19:43 Triage completed. ll1 19:44 Arm band placed on Patient placed in an exam room, on a stretcher. ll1 19:47 Shorty Serrano MD is Attending Physician. tw4 19:50 Nestor Holt RN is Primary Nurse. jd3 20:02 CXR XRAY In Process Unspecified. EDMS 20:30 Patient has correct armband on for positive identification. Placed in gown. Bed in low jd3 position. Call light in reach. Side rails up X2. Adult w/ patient. threat monitoring analyst on. Pulse ox on. NIBP on. 20:31 EKG done, by ED staff, reviewed by Shorty Serrano MD. Inserted saline lock: 20 gauge jd3 in right antecubital area, using aseptic technique. Blood collected. 20:37 Notified ED physician of a critical lab result(s). D-dimer of 847 and CO2 of >45. jd3 23:34 No provider procedures requiring assistance completed. IV discontinued, intact, jd3 bleeding controlled, No redness/swelling at site. Pressure dressing applied. Administered Medications: 22:37 Drug: Albuterol HFA Inhaler 2 puffs Route: Inhalation; jd3 23:37 Follow up: Response: No change in condition; No change in condition, provider notified jd3 Outcome: 22:29 Discharge ordered by . tw4 23:34 Discharged to home via wheelchair, with family. jd3 23:34 Condition: stable 23:34 Discharge instructions given to patient, family, Instructed on discharge instructions, follow up and referral plans. medication usage, Demonstrated understanding of instructions, follow-up care, medications, Prescriptions given X 2. 23:38 Patient left the ED. jd3 Addendum: 05/18/2020 14:43 Addendum: COVID-19 Result: Negative result given to RN to notify pt. Notified pt of a a5 negative COVID 19 swab results. Pt advised that even with a negative test result they should remain in isolation until symptom free for 3 days without medication. Pt also advised to return to the ED for worsening symptoms. Signatures: Dispatcher [employer] EDMS Mackenzie Delgado, RN RN aa5 Nestor Holt RN RN jd3 Shorty Serrano MD MD tw4 Randi Gillespie RN RN ll1 Corrections: (The following items were deleted from the chart) 05/15 21:34 21:29 Pulse 93bpm; Resp 24bpm; Spontaneous; Pulse Ox 96% 4 lpm Nasal Cannula; jd3 jd3 22:39 20:44 Patient has correct armband on for positive identification. Placed in gown. Bed jd3 in low position. Call light in reach. Side rails up X2. Adult w/ patient. jd3 22:39 20:44 threat monitoring analyst on. Pulse ox on. NIBP on. jd3 jd3 22:41 22:30 Reassessment: Patient appears in no apparent distress at this time. No changes jd3 from previously documented assessment. Patient and/or family updated on plan of care and expected duration. Pain level reassessed. pt reporting she is ready to go home. provider notified. jd3 22:41 21:29 BP 148 / 77; Pulse 93bpm; Resp 24bpm; Spontaneous; Pulse Ox 96% 4 lpm Nasal jd3 Cannula; jd3 22:41 22:41 BP 138 / 47; Pulse 76bpm; Resp 23bpm; Pulse Ox 95% 3 lpm Nasal Cannula; jd3 jd3
--- NOTE | 2020-05-15 22:30 | EDPHYS ---
Physician Documentation [facility] Name: Vikki Zamudio Age: 59 yrs Sex: Female : 1960 Arrival Date: 05/15/2020 Time: 19:40 Bed 27 Private MD: ED Physician Shorty Serrano HPI: 05/16 04:40 This 59 yrs old Female presents to ER via EMS with complaints of Shortness Of tw4 Breath. 04:40 The patient has shortness of breath at rest. Onset: The symptoms/episode began/occurred tw4 2 week(s) ago. Duration: The symptoms are continuous, and are unchanged since they started. The patient's shortness of breath is aggravated by exertion, is alleviated by. Associated signs and symptoms: The patient has no apparent associated signs or symptoms. Severity of symptoms: At their worst the symptoms were moderate in the emergency department the symptoms are unchanged. The patient has not experienced similar symptoms in the past. Historical: - Allergies: 05/15 19:44 No Known Allergies; ll1 - PMHx: 19:44 COPD; High Cholesterol; GERD; Hypertension; CHF; Hypothyroidism; Sleep Apnea; Panic ll1 Attacks; - Immunization history:: Adult Immunizations. - Social history:: Smoking status: Patient denies any tobacco usage or history of. ROS: 05/16 04:40 Constitutional: Negative for fever, chills, and weight loss, Eyes: Negative for injury, tw4 pain, redness, and discharge, Cardiovascular: Negative for chest pain, palpitations, and edema, Abdomen/GI: Negative for abdominal pain, nausea, vomiting, diarrhea, and constipation, Back: Negative for injury and pain, MS/Extremity: Negative for injury and deformity, Skin: Negative for injury, rash, and discoloration, Neuro: Negative for headache, weakness, numbness, tingling, and seizure. Respiratory: Positive for cough, shortness of breath. Exam: 04:40 Constitutional: This is a well developed, well nourished patient who is awake, alert, tw4 and in no acute distress. Head/Face: Normocephalic, atraumatic. Chest/axilla: Normal chest wall appearance and motion. Nontender with no deformity. No lesions are appreciated. Cardiovascular: Regular rate and rhythm with a normal S1 and S2. No gallops, murmurs, or rubs. Normal PMI, no JVD. No pulse deficits. 04:40 Respiratory: the patient does not display signs of respiratory distress, Respirations: normal, Breath sounds: wheezing: Vital Signs: 05/15 19:40 BP 147 / 82; Pulse 92; Resp 26; Temp 99.1; Pulse Ox 85% on 4 lpm NC; Pain 8/10; ll1 20:43 BP 124 / 57; Pulse 78; Resp 25 S; Pulse Ox 97% on 3 lpm NC; jd3 21:29 BP 148 / 77; Pulse 93; Resp 24 S; Pulse Ox 96% on 3 lpm NC; jd3 22:41 BP 138 / 57; Pulse 76; Resp 23; Pulse Ox 95% on 3 lpm NC; jd3 23:34 BP 125 / 55; Pulse 74; Resp 25 S; Pulse Ox 98% on 3 lpm NC; jd3 MDM: 19:47 Patient medically screened. tw4 05/16 04:50 Differential diagnosis: reactive airway disease. Antibiotic administration: Not tw4 indicated. Data reviewed: vital signs, nurses notes. Data interpreted: Pulse oximetry: Interpretation:. Test interpretation: by ED physician or midlevel provider: plain radiologic studies. Counseling: I had a detailed discussion with the patient and/or guardian regarding: the historical points, exam findings, and any diagnostic results supporting the discharge/admit diagnosis. Medication response: Response to treatment: and as a result, I will discharge patient. Special discussion: I discussed with the patient/guardian in detail that at this point there is no indication for admission to the hospital. It is understood, however, that if the symptoms persist or worsen the patient needs to return immediately for re-evaluation. 05/15 19:48 Order name: Blood Culture Adult (2) tw05/15 19:48 Order name: BMP; Complete Time: 22:13 4 05/15 22:13 Interpretation: Normal except: CL 90; GLUC 117; CO2 > 45; GFR 87. 05/15 19:48 Order name: C-Reactive Protein; Complete Time: 22:13 tw4 05/15 22:13 Interpretation: Abnormal: C-REACTIVE PROT 27.60. tw05/15 19:48 Order name: CBC with Diff; Complete Time: 20:48 4 05/15 20:48 Interpretation: Normal except: RBC 5.08. 05/15 19:48 Order name: COVID-19 05/15 19:48 Order name: D-Dimer; Complete Time: 20:48 05/15 20:49 Interpretation: Abnormal: D-DIMER 847. 05/15 19:48 Order name: Ferritin; Complete Time: 22:13 05/15 22:14 Interpretation: Within normal limits: CM 40.2. 05/15 19:48 Order name: Flu; Complete Time: 22:13 05/15 22:14 Interpretation: Within normal limits. 05/15 19:48 Order name: Lactate; Complete Time: 20:48 05/15 20:49 Interpretation: Within normal limits: LAC 1.2. 05/15 19:48 Order name: LFT's; Complete Time: 22:13 05/15 22:13 Interpretation: Normal except: AST 13; ALT 11; ALB 3.2; GLOB 4.3; A/G 0.7. 05/15 19:48 Order name: Lipase; Complete Time: 22:13 05/15 22:14 Interpretation: Within normal limits: LIP 169. 05/15 19:48 Order name: Procalcitonin; Complete Time: 22:13 05/15 22:14 Interpretation: Within normal limits: Procalcitonin < 0.05. 05/15 19:48 Order name: PT-INR; Complete Time: 20:48 05/15 20:49 Interpretation: Within normal limits: PT 11.1. 05/15 19:48 Order name: Ptt, Activated; Complete Time: 20:48 05/15 20:49 Interpretation: Within normal limits: PTT 28.3. 05/15 19:48 Order name: Strep; Complete Time: 22:13 05/15 22:14 Interpretation: Within normal limits. 05/15 19:48 Order name: Troponin (emerg Dept Use Only); Complete Time: 22:13 05/15 22:14 Interpretation: Within normal limits: TROPED < 0.02. 05/15 19:48 Order name: CXR XRAY; Complete Time: 20:48 05/15 20:49 Interpretation: No acute disease. 05/15 19:48 Order name: EKG; Complete Time: 19:49 05/15 19:48 Order name: Cardiac monitoring; Complete Time: 19:51 05/15 19:48 Order name: Document PUI#; Complete Time: 19:51 05/15 19:48 Order name: Droplet/Contact Precautions; Complete Time: 19:50 05/15 19:48 Order name: EKG - Nurse/Tech; Complete Time: 20:29 05/15 19:48 Order name: IV Start; Complete Time: 20:29 05/15 19:48 Order name: Labs collected and sent; Complete Time: 20:29 05/15 19:48 Order name: Notify [facility] Dept [phone]/ ; Complete Time: 19:51 05/15 19:48 Order name: O2 Per Protocol; Complete Time: 19:50 05/15 19:48 Order name: O2 Sat Monitoring; Complete Time: 19:50 05/15 21:26 Order name: Throat Culture EDMS EC:42 Rate is 76 beats/min. Rhythm is regular. QRS [place] is Normal. HI interval is normal. QRS tw4 interval is normal. QT interval is normal. No Q waves. T waves are Normal. No ST changes noted. Clinical impression: Normal ECG. Interpreted by me. Reviewed by me. Administered Medications: 05/15 22:37 Drug: Albuterol HFA Inhaler 2 puffs Route: Inhalation; jd3 23:37 Follow up: Response: No change in condition; No change in condition, provider notified jd3 Disposition: 05/15/20 22:29 Discharged to Home. Impression: Chronic obstructive pulmonary disease with (acute) exacerbation. - Condition is Stable. - Discharge Instructions: Chronic Obstructive Pulmonary Disease. - Prescriptions for Albuterol Sulfate 2.5 mg /3 mL (0.083 %) Inhalation Solution for Nebulization - inhale 1 unit by NEBULIZATION route every 8 hours As needed; 1 box. Medrol (Giancarlo) 4 mg Oral Tablets, Dose Pack - take 1 tablet by ORAL route as directed - follow package instructions; 1 packet. - Medication Reconciliation Form, Thank You Letter, Antibiotic Education, Prescription Opioid Use form. - Follow up: Private Physician; When: Upon discharge from the Emergency Department; Reason: Recheck today's complaints, Continuance of care, Re-evaluation by your physician. - Problem is new. - Symptoms have improved. Signatures: Dispatcher [employer] Nestor Tucker RN RN jd3 Shorty Serrano MD MD tw4 Randi Gillespie RN RN ll1 Corrections: (The following items were deleted from the chart) 22:37 19:48 Allen ordered. 4 jd3 23:37 19:48 Urine Dipstick-Ancillary ordered. [facility] jtiffany 23:38 22:29 05/15/2020 22:29 Discharged to Home. Impression: Chronic obstructive pulmonary jd3 disease with (acute) exacerbation. Condition is Stable. Forms are Medication Reconciliation Form, Thank You Letter, Antibiotic Education, Prescription Opioid Use. Follow up: Private Physician; When: Upon discharge from the Emergency Department; Reason: Recheck today's complaints, Continuance of care, Re-evaluation by your physician. Problem is new. Symptoms have improved. tw4
[2020-05-15] MEDS ORDERED: ALBUTEROL INHALER 60 PUFF/8 GM IH ONE (22:45)
--- NOTE | 2020-05-16 10:44 | EKG ---
Test Date: 2020-05-15 Test Time: 20:24:50 Show Host Or Hostess: GILBERTO MEASUREMENT RESULTS: Intervals: Rate: 76 WI: 144 QRSD: 84 QT: 398 QTc: 447 [place]: P: 67 WI: 144 QRS: 77 T: 84 INTERPRETIVE STATEMENTS: Normal sinus rhythm with sinus arrhythmia Normal ECG Compared to ECG 04/29/2019 17:49:28 Sinus tachycardia no longer present Electronically Signed On 05-16-20 10:43:20 CDT by Selvin Mar
[2020-05-20 07:17] VITALS: TEMP 99.1
[2020-05-20 07:22] VITALS: BP 125/55; O2SAT 98
== END 2020-05-15 23:38 | disposition home or self-care (01) ==
LOC: ER 19:39
DX: J44.1 Chronic obstructive pulmonary disease with (acute) exacerbation (principal); Z20.828 Contact with and (suspected) exposure to other viral communicable diseases; I10 Essential (primary) hypertension
CPT/HCPCS: 93005; 87040 ×2; 87070; 85025; 80048; 36415; 85610; 85379; 80076; 87081; 83605; 85730; 84484; 82728; 83690; 84145; 86140; 87804 ×2; 71045; 99285; U0002

== ENCOUNTER 2020-07-27 19:19 | Emergency (ER) | payer OTHER ==
[2020-07-27] MEDS ORDERED: ETOMIDATE 20 MG/10 ML VIAL IV ONE ×2 (19:20→21:43)
--- OUTSIDE RECORDS SUMMARY | 2020-07-27 19:22 | XMS REPORT | Clinical Summary ---
:1960 Author Organization [facility] Address [address] [place] [address] Care Team Providers Name Role Phone Unavailable [...] Not on file Last Filed Vital Signs Not on file Plan of Treatment Not on file Results Not on fileafter 07/27/2019 Insurance Payer Benefit Plan Subscriber ID Effective Dates Phone Address Type / Group MEDICAID - [facility] [id number] 2011-Gladys soliz MEDICAID D STAR PLAN [facility] Advance Directives For more information, please contact: [phone] Code Status Date Activated Date Inactivated Comments Full Code 02/24/2017 8:19 AM 02/26/2017 1:59 PM This code status was determined by: Patient
--- OUTSIDE RECORDS SUMMARY | 2020-07-27 19:22 | XMS REPORT | Continuity of Care Document ---
:1960 Author Organization [facility] t Address [address] [place] [address] Care Team Providers Name Role Phone Enriqueta CAKE PUNCHER Attending Clinician Doctor Unassigned, Name Attending Clinician Unavailable KELLY Attending Clinician Unavailable KELLY Admitting Clinician Unavailable Problems Condition Condition Condition Status Onset Resolution Last Treating Co mments Source Name Details Category Date Date Treatment Clinician Date Tobacco Tobacco Disease Active [facility]06 [facility]: [facility] 00 Reading Hypoxemia Hypoxemia Disease Active [facility] 00 Reading COPD COPD Disease Active [facility] exacerbati exacerbati 6-05 Pema kes - on on 00:00: Medical 00 Reading Acute Acute Disease Active [facility] hypercapni hypercapni 6-05 Pema kes - c c 00:00: Medical respirator respirator 00 Ce nter y failure y failure Allergies, Adverse Reactions, Alerts This patient has no known allergies or adverse reactions. Social History Social Habit Start Date Stop Date Quantity Comments Source Sex Assigned At [facility] Medications Ordered Filled Start Stop Current Ordering [...] Date/Time Type Type Clinicians Facility Department ID 2020-07-12 2020[facility]07[id number] 11:56:24 23:59:00 Encounter samuel Pediatric [id number] Shibi s and [id number] Adult [id number] Primary 9 [facility] 2020-07-12 2020-07-12 [facility] [id number] 11:00:10 13:58:54 Visit [facility] Pediatric [id number] Shibi s and [id number] Adult [id number] Primary [facility] 2020-07-03 2020-07-03 Orders Doctor THI [id number] 00:00:00 00:00:00 Only Unassigned, VIRGILIO [id number] [facility] [id number] [id number] Results Test Description Test Time Test [...] NOT 1092) ACCURATE CRE ATININE CLEARANCE IN [place] EDICTING GLOMERULAR FILT RATION RATE. ESTIMATED GFR [...] 0-0 (BEAKER) (test code = 413) 0.00POCT-GLUCOSE [id number] 17:50:00 Test Item Value Reference Range Interpretation Comments POC-GLUCOSE METER 118 mg/dL 70-110 H TESTED AT [facility] [address] (BEAKER) (test code = [place] 1538) [id number] POCT-GLUCOSE [id number] 11:59:00 Test Item Value Reference Range Interpretation Comments POC-GLUCOSE METER 247 mg/dL 70-110 H TESTED AT [facility] [address] (BEAKER) (test code = KISHA [place] 1538) [id number] POCT-GLUCOSE [id number] 07:54:00 Test Item Value Reference Range Interpretation Comments POC-GLUCOSE METER 141 mg/dL 70-110 H TESTED AT [facility] [address] (BEAKER) (test code = [place] 1538) [id number] CBC W/PLT COUNT & AUTO [id number] 03:45:00 Test Item Value Reference Range Interpretation [...] K/ L 0.00-0.20 (test code = 417) [id number] 03:29:00 Test Item Value Reference Range Interpretation Comments MAGNESIUM (BEAKER) 1.8 mg/dL 1.6-2.6 Specimen slightly (test code = 627) hemolyzed BASIC METABOLIC [id number] 03:29:00 Test Item Value Reference Range Interpretation [...] NOT APPLICABLE FOR DIALYSIS PATIEN TS. POCT-GLUCOSE [id number] 00:05:00 Test Item Value Reference Range Interpretation Comments POC-GLUCOSE METER 117 mg/dL 70-110 H TESTED AT [facility] [address] (BEAKER) (test code = KISHA [place] 1538) [id number] POCT-GLUCOSE [id number] 18:17:00 Test Item Value Reference Range Interpretation Comments POC-GLUCOSE METER 141 mg/dL 70-110 H TESTED AT [facility] [address] (BEAKER) (test code = KISHA [place] 1538) [id number] CREATINE KINASE (CK), TOTAL AND [id number] 15:43:00 Test Item Value Reference Range Interpretation Comments CREATINE KINASE TOTAL (BEAKER) 31 U/L 29-200 (test code = 380) CREATINE KINASE-MB (BEAKER) (test 1.3 ng/mL 0.0-6.6 code = 750) CREATINE KINASE-MB INDEX (BEAKER) 4.2 % (test code = 395) Effective 08/09/2014: CK-MB Reference Range ChangeNew: 0.0-6.6 Previous: 0.0-4.9CK-MB Reference Range:<6.7 Normal6.7-10.0 Borderline>10.0 AbnormalBLOOD GAS, [id number] 15:26:00 Test Item Value Reference Range Interpretation [...] (test code = 1819) 35.0 % POCT-GLUCOSE [id number] 11:45:00 Test Item Value Reference Range Interpretation Comments POC-GLUCOSE METER 122 mg/dL 70-110 H TESTED AT [facility] [address] (BEAKER) (test code = [facility] [place] 1538) [id number] CREATINE KINASE (CK), TOTAL AND [id number] 10:29:00 Test Item Value Reference Range Interpretation Comments CREATINE KINASE TOTAL (BEAKER) 31 U/L 29-200 (test code = 380) CREATINE KINASE-MB (BEAKER) (test 1.5 ng/mL 0.0-6.6 code = 750) CREATINE KINASE-MB INDEX (BEAKER) 4.8 % (test code = 395) Effective 08/09/2014: CK-MB Reference Range ChangeNew: 0.0-6.6 Previous: 0.0-4.9CK-MB Reference Range:<6.7 Normal6.7-10.0 Borderline>10.0 AbnormalTROPONIN [id number] 10:29:00 Test Item Value Reference Range Interpretation [...] renalfailure, acidosis, acute neurological disease, and persistent tachyarrhythmia.[id number] 10:22:00 Test Item Value Reference Range Interpretation Comments PARTIAL THROMBOPLASTIN TIME 22.5 seconds 22.5-36.0 (BEAKER) (test code = 760) PROTHROMBIN [id number] 10:21:00 Test Item Value Reference Range Interpretation Comments PROTIME (BEAKER) (test code = 12.4 seconds 11.7-14.7 759) INR (BEAKER) (test code = 370) 0.9 <=5.9 RECOMMENDED COUMADIN/WARFARIN INR THERAPY RANGESSTANDARD DOSE: 2.0 - 3.0 Includes: PROPHYLAXIS forvenous thrombosis, systemic embolization; TREATMENT for venous thrombosis and/or pulmonary embolus.HIGH RISK: Target INR is 2.5-3.5 for patients with mechanical heart valves.BLOOD GAS, [id number] 10:17:00 Test Item Value Reference Range Interpretation [...] (test code = 1819) 40.0 % PLATELET [id number] 10:13:00 Test Item Value Reference Range Interpretation Comments PLATELET COUNT (BEAKER) (test 111 K/CU MM 150-430 L code = 756)
--- OUTSIDE RECORDS SUMMARY | 2020-07-27 19:23 | XMS REPORT | Summary of Care ---
:1960 Author Organization [facility] - Health Address [address] [place] [id number] Care Team Providers Name Role Phone Rome Moran Primary Care Provider Encounter Details Date Type Department Care Team Description 06/02/2020 Orders Only [facility] Doctor Unassigned, No [address] [facility] [place] [address] [place] [id number] Allergies Active Allergy Reactions Severity Noted Date Comments Codeine Itching Medium 08/30/2015 documented as of this encounter (statuses as of 06/02/2020) Medications Medication Sig Dispensed Refills Start Date [...] both eyes daily. fluticasone propionate Use 1 [place] in 0 03/15/2019 Active 50 mcg/actuation nasal [...] as of this encounter (statuses as of 06/02/2020) Active Problems Problem Noted Date Morbid obesity with body mass index of 40.0-49.9 10/06 VIVEK on CPAP Hypothyroidism COPD (chronic obstructive pulmonary disease) Bipolar affective disorder Wears partial dentures documented as of this encounter (statuses as of 06/02/2020) Social History Tobacco Use Types Packs/Day Years Used Date Former Smoker Cigarettes Smokeless Tobacco: Never Used Alcohol Use Drinks/Week oz/Week Comments Yes 0 Standard drinks or equivalent 0.0 occasionaly Sex Assigned at Date Recorded Not on file COVID-19 Exposure Response Date Recorded In the last month, have you been in contact with No / Unsure 06/01/2020 12:41 PM CDT someone who was confirmed or suspected to have Coronavirus / COVID-19? documented as of this encounter Last Filed Vital Signs Not on filedocumented in this encounter Plan of Treatment Date Type Specialty Care Team Description 06/02/2020 Office Visit Obstetrics & Gynecology Nette Escobar MD [address] [place] [phone] Health Maintenance Due Date Last Done [...] of this encounter Implants Implanted Type Area [employer] Device Shelf Model / Serial Identifier Expiration / Lot Date Lens LENS Left: Eye Perez 03/21/2020 [id number] / Implanted: Qty: 1 on 08/31/2015 by Freddy Guzmán MD at [facility] 6 [id number] / [id number] Lens LENS Right: Perez 02/20/2020 [id number] / Implanted: Qty: 1 on 10/05/2015 by Freddy Guzmán MD at [facility] 9 [id number] / [id number] documented as of this encounter Procedures Procedure Name Priority Date/Time Associated Diagnosis Comme nts ASSIGNMENT OF BENEFITS Routine 06/02/2020 12:31 PM CDT documented in this encounter Results Not on filedocumented in this encounter Insurance Payer Benefit Plan / Subscriber ID Effective Dates Phone Addre ss Type Group [facility] [id number] 2012-Present Medicaid COMM PLAN - PLUS MANAGED MEDICAID documented as of this encounter
--- OUTSIDE RECORDS SUMMARY | 2020-07-27 19:23 | XMS REPORT | Summary of Care ---
:1960 Author Organization [facility] Address [address] [place] [id number] Care Team Providers Name Role Phone Rome Moran Primary Care Provider Reason for Referral Radiology Services (Routine) Status Reason Specialty Diagnoses / Referred By Referred To Procedures Contact Contact Pending Review Diagnostic Diagnoses Encounter for screening mammogram for breast cancer Edilma Escobar, Radiology Procedures BI SCREENING MAMMOGRAM BILATERAL [address] [place] [address] [phone] Reason for Visit Reason Comments Well Woman Exam Encounter Details Date Type Department Care Team Description 06/02/2020 Office Visit [facility] Edilma Escobar MD Well woman exam with routine gynecologic al exam (Primary Dx); [address] Encounter for screening mamm ogram for breast cancer; [address] [place] [address], [address] [phone] Allergies Active Allergy Reactions Severity Noted [...] both eyes daily. fluticasone propionate Use 1 [place] in 0 03/15/2019 Active 50 mcg/actuation nasal [...] of 06/02/2020) Active Problems Problem Noted Date Obesity (BMI 30-39.9) 06/02/2020 Morbid obesity with body mass index of 40.0-49.9 10/06 VIVEK on CPAP Hypothyroidism COPD (chronic obstructive pulmonary disease) Bipolar affective disorder Wears partial dentures documented as of this encounter (statuses as of 06/02/2020) Social History Tobacco Use Types Packs/Day Years Used Date Former Smoker Cigarettes 1 1972 - 2017 Smokeless Tobacco: Never Used Alcohol Use Drinks/Week [...] Sign Reading Time Taken Comments Blood Pressure 131/72 06/02/2020 1:12 PM CDT Pulse 68 06/02/2020 1:12 PM CDT Temperature 36.8 C (98.2 F) 06/02/2020 1:12 PM CDT Respiratory Rate 24 06/02/2020 1:12 PM CDT Oxygen Saturation - - Inhaled Oxygen Concentration - - Weight 122.2 kg (269 lb 6 oz) 06/02/2020 1:12 PM CDT Height 175.3 cm (5' 9") 06/02/2020 1:12 PM CDT Body Mass Index 39.78 06/02/2020 1:12 PM CDT documented in this encounter Patient Instructions Patient InstructionsJimmy, Kira Fontanez RN - 06/02/2020 1:00 PM CDT Patient Education Prevention Guidelines, Women Ages 50 to 64 Screening tests and vaccines are an important part of managing your health. A screening test is doneto find possible disorders or diseases in people who don't have any symptoms. The goal is to find a disease early so lifestyle changes can be made and you can be watched more closely to reduce the riskof disease, or to detect it early enough to treat it most effectively. Screening tests are not considered diagnostic, but are used to determine if more testing is needed.Health counseling is essential, too. Below are guidelines for these, for women ages 50 to 64. Talk with your healthcare provider to make sure youre up to date on what you need. Screening Who needs it How often Type 2 diabetes or prediabetes All women beginning at age 45 and women without symptoms at any age who are overweight or obese and have 1 or more additional risk factors for diabetes. At least every 3 years Type 2 diabetes or prediabetes All women diagnosed with gestational diabetes Lifelong testing every 3 years Type 2 diabetes All women with prediabetes Every year Alcohol misuse All women in this age group At routine exams Blood pressure All women in this age group Yearly checkup if your blood pressure is normal Normal blood pressure is less than 120/80 mm Hg If your blood pressure reading is higher than normal, follow the advice of your healthcare provider Breast cancer All women at average risk in this age group Yearly mammogram should be done until age 54. At age 55, you can switch to every other year or choose to continue yearly. All women should know the possible benefits and risks of breast cancer screening with mammograms. Cervical cancer All women in this age group, except women who have had a complete hysterectomy Pap test every 3 years or Pap test with human papillomavirus (HPV) test every 5 years Chlamydia Women at increased risk for infection At routine exams Colorectal cancer All women at average risk in this age group Multiple tests are available and are used at different times. Possible tests include: Flexible sigmoidoscopy every 5 years, or Colonoscopy every 10 [address], [address] colonography (virtual colonoscopy) every 5 years, or Yearly fecal occult blood test, or Yearly fecal immunochemical test every year, or Stool DNA test, every 3 years If you choose a test other than a colonoscopy and have an abnormal test result, you will need to follow up with a colonoscopy. Screening advice varies among expert groups. Talk with your healthcare provider about which tests are best for you. Some people should be screened using a different schedule because of their personal or family healthhistory. Talk with your healthcare provider about your health history. Depression All women in this age group At routine exams Gonorrhea Sexually active women at increased risk for infection At routine exams Hepatitis C Anyone at increased risk; 1 time for those born between 1945 and 1964 At routine exams High cholesterol or triglycerides All women in this age group who are at risk for coronary artery disease At least every 5 years HIV All women At routine exams Lung cancer Adults age 55 to 80 who have smoked Yearly screening in smokers with 30 pack-year history of smoking or who quit within 15 years Obesity All women in this age group At routine exams Osteoporosis Women who are postmenopausal Ask your healthcare provider Syphilis Women at increased risk for infection talk with your healthcare provider At routine exams Tuberculosis Women at increased risk for infection talk with your healthcare provider Ask your healthcare provider Vision All women in this age group Ask your healthcare provider Vaccine Who needs it How often Chickenpox (varicella) All women in this age group who have no record of this infection or vaccine 2doses; the second dose should be given at least 4 weeks after the first dose Hepatitis A Women at increased risk for infection talk with your healthcare provider 2 doses given at least 6 months apart Hepatitis B Women at increased risk for infection talk with your healthcare provider 3 doses over 6 months; second dose should be given 1 month after the first dose; the third dose should be given at least 2 months after the second dose and at least 4 months after the first dose Haemophilus influenzae Type B (HIB) Women at increased risk for infection talk with your healthcare provider 1 to 3 doses Influenza (flu) All women in this age group Once a year Measles, mumps, rubella (MMR) Women in this age group through their late 50s who have no record of these infections or vaccines 1 dose Meningococcal Women at increased risk for infection talk with your healthcare provider 1 or moredoses Pneumococcal conjugate vaccine (PCV13) and pneumococcal polysaccharide vaccine (PPSV23) Women at increased risk for infection talk with your healthcare provider PCV13: 1 dose ages 19 to 65 (protects against 13 types of pneumococcal bacteria) PPSV23: 1 to 2 doses through age 64, or 1 dose at 65 or older (protects against 23 types of pneumococcal bacteria) Tetanus/diphtheria/pertussis (Td/Tdap) booster All women in this age group Td every 10 years, or a 1-time dose of Tdap instead of a Td booster after age 18, then Td every 10 years Zoster All women ages 60 and older 1 dose Counseling Who needs it How often BRCA gene mutation testing for breast and ovarian cancer susceptibility Women with increased risk for having gene mutation When your risk is known Breast cancer and chemoprevention Women at high risk for breast cancer When your risk is known Diet and exercise Women who are overweight or obese When diagnosed, and then at routine exams Sexually transmitted infection prevention Women at increased risk for infection talk with your healthcare provider At routine exams Use of daily aspirin Women ages 55 and up in this age group who are at risk for cardiovascular health problems such as stroke When your risk is known Use of tobacco and the health effects it can cause All women in this age group Every exam 1 [employer] bin[employer] reviewed this educational content on 10/17/201519996261-8929 The [employer], [employer]. [address] [place] [address]. All rights reserved. This information is not intended as a substitute for professional medical care. Always follow your healthcare professional's instructions. Patient Education Breast Health: Breast Self-Awareness What is breast self-awareness? Breast self-awareness is knowing how your breasts normally look and feel. Your breasts change as yougo through different stages of your life. So its important to learn what is normal for your breasts. Knowing about your breasts helps you spot any changes in them right away. Tell your healthcare provider about any changes. Why is breast self-awareness important? Many experts now say that women should focus on breast self-awareness instead of doing a breast self-examination (BSE). These experts include the [employer] [place] [employer] and the [place] [employer]nec[employer]. Some experts even advise not teaching women to do a BSE. Thats because research hasnt shown a clear benefit to doing BSEs. Breast self-awareness is different than a BSE. It isnt about following a certain method and schedule. Its about knowing what's normal for your breasts. That way you can spot even small changes right away. If you see any changes, tell your healthcare provider. Changes to look for Call your healthcare provider if you find any changes in your breasts that worry you. These changes may be: A lump Nipple discharge other than breastmilk, especially if it's bloody Swelling A change in size or shape Skin changes, such as redness, thickening, or dimpling of the skin Swollen lymph nodes in the armpit Nipple problems, such as pain or redness If you find a lump Call your provider if you find lumpiness in one breast. Also call if you feel something different inthe tissue or feel a definite lump. Sometimes lumpiness may be due to menstrual changes. But there may be reason for concern. Your provider may want to see you right away if you have: Nipple discharge that is bloody Skin changes on your breast, such as dimpling or puckering Its okay to be upset if you find a lump. Be sure to call your provider right away. Remember that most breast lumps are benign. This means they are not cancer. [employer] reviewed this educational content on 04/22/201719993227-9436 The [employer]. [address] [place] [address]. All rights reserved. This information is not intended as a substitute for professional medical care. Always follow your healthcare professional's instructions. Patient Education Clinical Breast Exam Many health organizations recommend a yearly clinical breast exam. This exam may be done by a laundry tech, family healthcare provider, nurse practitioner, nurse wire tester, or specially trained nurse. Yearly breast exams help tomake surethat breast conditions are found early. Your healthcare providers role A healthcare professional knows the tests and follow-up care needed if a problem is found. Your clinical exam is also a great time to ask questions about breast self-exams. You can find out if yourechecking your breasts in the best way. Or you may want to ask how , breast implants, or breast reduction surgery affect the way you should check your breasts. Diagnostic tests If a clinical exam reveals a breast change, you may have other tests to find out more. These tests may include: Mammography. A low-dose X-ray of your breast tissue. Ultrasound. An imaging test that uses sound waves to create images of your breast. Biopsy. A small amount of breast tissue is removed by needle or by a cut (incision). The tissue is then checked under a microscope. Guidelines for having clinical breast exams The [place] [employer]nec[employer] recommends that starting at age 29, you should have a clinical breast exam every 1 to 3 years. After age 40, have a clinical breast exam each year. If youre at higher risk for breast cancer, you may need exams more often. Risk factors for breast cancer may include: Being over 50 or postmenopausal Having a family history of breast cancer Having the BRCA1 or BRCA2 gene mutation or certain other gene mutations Having more menstrual periods due to starting menstruation early(before age 12) or having a late menopause (after age 55) Having no pregnancies Having a first after age 30 Being obese Having a history of radiation treatment to your chest area Exposure to ROJAS during your mother's Not being active Drinking too much alcohol Having dense breast tissue Taking hormone therapy after menopause Other health organizations have different recommendations. Talk with your healthcare provider about what is best for you. Sigifredo schmid reviewed this educational content on 04/22/201719996654-0484 The [employer]. [address] [place] [address]. All rights reserved. This information is not intended as a substitute for professional medical care. Always follow your healthcare professional's instructions. documented in this encounter Progress Notes Edilma Escobar MD - 06/02/2020 1:00 PM CDT Chief complaint: Chief Complaint Patient presents with Well Woman Exam 58 year old female postmenopausal presents for her well woman exam. I evaluated her about a 6 weeks ago for PMB and all work up(TVS and EMBx) was negative. She reports that she has no further bleeding. She denies hot flashes, night sweats, and other menopausal symptoms . Her last MMG was 1 year agoand wnl. Last pap smear 3 years ago and also wnl. Patient reports a normal colonoscopy in 2019. She is being treated for multiple medical problems, including severe COPD for which she is oxygen dependent She plans on transferring care to [place] since it is nearer to her home. I have recommended she sees Dr Garza for her next WWE with [facility] women clinic in [place]. Histories OB History Para Term AB Living 3 1 1 2 1 SAB TAB Ectopic Multiple Live Births 2 1 # Outcome Date GA Lbr Johann/2nd Weight Sex Delivery Anes PTL Lv 3 SAB 2 SAB 1 Term 40w0d , C EDMUNDO Past Medical History: Diagnosis Date Anesthesia complication Pt states she wakes up violently Cataract COPD (chronic obstructive pulmonary disease) Hypothyroidism VIVEK on CPAP Panic attacks takes clonazepam Seasonal allergies Wears partial dentures Family History Problem Relation Age of Onset Hypertension Mother Diabetes Mother Heart Mother Hypertension Father Diabetes Father Heart Father Hypertension Sister Diabetes Sister Heart Sister Hypertension Brother Diabetes Brother Heart Brother No family status information on file. Past Surgical History: Procedure Laterality Date APPENDECTOMY SECTION EPIDURAL STEROID INJECTION LAPAROSCOPIC EXCISION OF ENDOMETRIOSIS (SHX) 1993 MAGNETIC RESONANCE IMAGING UNDER ANESTHESIA 10/06/2019 Surgeon: Anesthesiology; [facility]: [facility] PHACOEMULSIFICATION OF CATARACT WITH INTRAOCULAR LENS IMPLANT Left 08/31/2015 Surgeon: Freddy Guzmán MD; Location: [facility] OR LOCATION PHACOEMULSIFICATION OF CATARACT WITH INTRAOCULAR LENS IMPLANT Right 10/05/2015 Surgeon: Freddy Guzmán MD; Location: [facility] OR LOCATION Social History Socioeconomic History Marital status: Spouse name: Not on file Number of children: Not on file Years of education: Not on file Highest education level: Not on file Occupational History Not on file Social Needs Financial resource strain: Not on file Food insecurity Worry: Not on file Inability: Not on file Transportation needs Medical: Not on file Non-medical: Not on file Tobacco Use Smoking status: Former Smoker Packs/day: 1.00 Types: Cigarettes Start date: 1972 Quit date: 2017 Years since quittin.6 Smokeless tobacco: Never Used Substance and Sexual Activity Alcohol use: Yes Alcohol/week: 0.0 standard drinks Comment: occasionaly Drug use: No Sexual activity: Not Currently Partners: Male control/protection: Post-menopausal Lifestyle Physical activity Days per week: Not on file Minutes per session: Not on file Stress: Not on file Relationships Social connections Talks on phone: Not on file Gets together: Not on file Attends sikhism service: Not on file Active member of club or organization: Not on file Attends meetings of clubs or organizations: Not on file Relationship status: Not on file Intimate partner violence Fear of current or ex partner: Not on file Emotionally abused: Not on file Physically abused: Not on file Forced sexual activity: Not on file Other Topics Concern Not on file Social History Narrative Patient denies any abuse at home Patient has 4 cats. Sikhism preference:none Social History Substance and Sexual Activity Sexual Activity Not Currently Partners: Male control/protection: Post-menopausal Labs No new labs Radiology No new radiology. Allergies Vikki is allergic to codeine. Medications Vikki has a current medication list which includes the following prescription(s): mupirocin, aspirin, furosemide, lisinopril, acetazolamide, atorvastatin, clonazepam, fluticasone propionate, latanoprost,roflumilast, tizanidine, tramadol, umeclidinium-vilanterol, albuterol, albuterol, aspirin, carvedilol, cyclobenzaprine, divalproex er, fluticasone furoate-vilanterol, levothyroxine, loratadine, mometasone, and tiotropium. Review of Systems Constitutional: Negative. HENT: Negative. Eyes: Negative. Respiratory: Negative. Breasts: Negative. Cardiovascular: Negative. Gastrointestinal: Negative. Genitourinary: Negative. Musculoskeletal: Negative. Skin: Negative. Neurological: Negative. Psychiatric/Behavioral: Negative. Endocrine: Endocrine negative BP 131/72 (BP Location: Left arm, Patient Position: Sitting, BP CUFF SIZE: Adult Large) | Pulse 68| Temp 36.8 C (98.2 F) (Oral) | Resp 24 | Ht 5' 9" (1.753 m) | Wt 269 lb 6 oz (122.2 kg) | LMP 09/22/2011 (Approximate) | BMI 39.78 kg/m Pregravid BMI: Could not be calculated Physical Exam Vitals reviewed. Constitutional: She is oriented to person, place, and time. She appears well- developed and well-nourished. Her body habitus is obese. Neck: No mass. No thyroid nodules palpated. Cardiovascular: Regular rate and rhythm. No murmur auscultated. No peripheral edema present. Pulmonary/Chest: Breath sounds clear to auscultation. Normal inspiratory effort. Abdominal: Abdomen is soft. No mass palpated. No tenderness present. There is no hepatomegaly. Thereis no rigidity and no guarding. Scars noted. Obese with pannus. Neuro/Psychiatric: She has a normal mood and affect. She is oriented to person, place, and time. Skin: Skin normal. Breast: Right breast exhibits no mass, no nipple discharge and no tenderness. Left breast exhibits no mass, no nipple discharge and no tenderness. Breasts are symmetrical. External genitalia: Normal external genitalia appropriate for age. Vagina:Normal estrogen effect. Atrophic Cervix: No lesion. No discharge present. Atrophic Uterus: Uterus is normal size and non-tender. Adnexa: Right adnexa without tenderness or mass. Left adnexa without tenderness or mass. Assessment/Plan Well woman exam with routine gynecological exam (primary encounter diagnosis) Comment: Reviewed and encouraged good nutrition, regular exercise, use of sunscreen, awareness of her breasts, routine annuals and mammograms. Also age appropriate vaccinations and screening labs were discussed. Colonoscopy after age of 50. DEXA scan at 66 years of age Bone health-adequate Vit D and calcium with weight bearing exercise. Encounter for screening mammogram for breast cancer Comment: Mammogram order given to patient. She will schedule at [facility] which is closer to her home Screening for colon cancer Comment:Upto date on colonoscopy This visit did not involve counseling and coordination that comprised more than 50% of the visit time. Edilma Escobar MD documented in this encounter Plan of Treatment Date Type Specialty Care Team Description 06/04/2021 Office Visit Obstetrics & Gynecology Me erin Garza MD [address] [place] [phone] Name Type Priority Associated Diagnoses Order S chedule BI SCREENING MAMMOGRAM IMAGING Routine Encounter for scre ening Expected: 06/02/2020, BILATERAL mammogram for breast Expires : 08/02/2021 cancer Health Maintenance Due Date Last Done Comments [...] of this encounter Implants Implanted Type Area Supervisor Cell Room Device Shelf Model / Serial Identifier Expiration / Lot Date Lens LENS Left: Eye Perez 03/21/2020 [id number] / Implanted: Qty: 1 on 08/31/2015 by Freddy Guzmán MD at [facility] 4 [id number] / [id number] Lens LENS Right: Perez 02/20/2020 [id number] / Implanted: Qty: 1 on 10/05/2015 by Freddy Guzmán MD at [facility] Eye 0 [id number] / [id number] documented as of this encounter Results Not on filedocumented in this encounter Visit Diagnoses Diagnosis Well woman exam with routine gynecologic al exam - Primary Routine gynecological examination Encounter for screening mammogram for br east cancer Screening for colon cancer Special screening for malignant neoplasm s, colon documented in this encounter Insurance Payer Benefit Plan / Subscriber ID Effective Dates Phone Addre ss Type Group [facility] [id number] 2012-Present Medicaid COMM PLAN - PLUS MANAGED MEDICAID documented as of this encounter
--- OUTSIDE RECORDS SUMMARY | 2020-07-27 19:23 | XMS REPORT | Summary of Care ---
:1960 Author Organization [facility] Address [address] [place] [address] Care Team Providers Name Role Phone Rome Moran Primary Care Provider Reason for Visit Reason Comments Follow-up PMBx Encounter Details Date Type Department Care Team Description 05/26/2020 Telemedicine Visit [facility] AdumEdilma, Post-menopausal Healthcare- bleeding (Primary [address] Dx) [address] [place] [address] [address], [address] [place] [phone] Allergies Active Allergy Reactions Severity Noted Date Comments Codeine Itching Medium 08/30/2015 documented as of this encounter (statuses as of 05/26/2020) Medications Medication Sig Dispensed Refills Start Date [...] both eyes daily. fluticasone propionate Use 1 [place] in 0 03/15/2019 Active 50 mcg/actuation nasal [...] as of this encounter (statuses as of 05/26/2020) Active Problems Problem Noted Date Morbid obesity with body mass index of 40.0-49.9 10/06 VIVEK on CPAP Hypothyroidism COPD (chronic obstructive pulmonary disease) Bipolar affective disorder Wears partial dentures documented as of this encounter (statuses as of 05/26/2020) Social History Tobacco Use Types Packs/Day Years Used Date Former Smoker Cigarettes Smokeless Tobacco: Never Used Alcohol Use Drinks/Week oz/Week Comments Yes 0 Standard drinks or equivalent 0.0 occasionaly Sex Assigned at Date Recorded Not on file COVID-19 Exposure Response Date Recorded In the last month, have you been in contact with No / Unsure 05/10/2020 2:56 PM CDT someone who was confirmed or suspected to have Coronavirus / COVID-19? documented as of this encounter Last Filed Vital Signs Not on filedocumented in this encounter Progress Notes Edilma Escobar MD - 05/26/2020 10:45 AM CDT HPI: Verbal consent obtained from Patient: Vikki Zamudio due to COVID 19 pandemic telehealth services was provided below. Communication with patient was conducted via Telephone due to patient unable to obtain video call option. Location of Patient: Home Location of Provider: Clinic Date of Service: 05/26/2020 HPI: Vikki Zamudio is a 59 year old female with history PMB presents to discuss results of her pelvic sonogram and EMBx. She reports that she had continued to have intermittent spotting since I saw here but very scant and mostly on wiping. Past Medical History: Diagnosis Date Anesthesia complication Pt states she wakes up violently Bipolar affective disorder Cataract COPD (chronic obstructive pulmonary disease) Hypothyroidism VIVEK on CPAP Panic attacks Seasonal allergies Wears partial dentures MEDICATIONS: Outpatient Medications Marked as Taking for the 05/26/20 encounter (Telemedicine Visit) with Edilma Escobar MD Medication Sig Dispense Refill aspirin 81 mg EC tablet Take 81 mg by mouth daily. furosemide 20 mg tablet Take 20 mg by mouth daily. atorvastatin 20 mg tablet Take 20 mg by mouth at bedtime. clonazePAM 0.5 mg tablet Take 0.5 mg by mouth as needed. fluticasone propionate 50 mcg/actuation nasal spray Use 1 [place] in each nostril daily. 0 latanoprost 0.005 % ophthalmic drops Place 1 Drop in both eyes daily. 3 roflumilast (DALIRESP) 500 mcg tablet Take 1 tablet by mouth daily. tiZANidine 4 mg tablet Take 4 mg by mouth daily. traMADol 50 mg tablet Take 50 mg by mouth 3 (three) times daily. albuterol (PROAIR HFA) 90 mcg/actuation inhaler Inhale 2 Puffs every 6 (six) hours as needed forWheezing or Shortness of Breath. albuterol (PROVENTIL) 2.5 mg /3 mL (0.083 %) nebulizer solution Inhale 2.5 mg every 4 (four) hours as needed for Wheezing or Shortness of Breath. carvedilol (COREG) 3.125 mg tablet Take 3.125 mg by mouth 2 (two) times daily with meals. REVIEW OF SYSTEMS: Constitutional: Denies Fever, chills Cardiovascular: Denies chest pain or palpitations Respiratory: Denies shortness of breath Gastrointestinal: Denies nausea, vomiting, diarrhea or constipation Genitourinary: Denies dysuria, increased frequency or urgency Neuro: Denies headaches Psych: Denies depression or anxiety Vital Signs There were no vitals taken for this visit. TELEHEALTH EXAM Constitutional: Alert and in no distress Respiratory: Breathing comfortably Neuro: Answering questions appropriately Psych: Normal Affect Labs No visits with results within 1 Month(s) from this visit. Latest known visit with results is: Office Visit on 04/14/2020 Component Date Value Case Report 04/14/2020 Value:Surgical Pathology Case: [id number] Authorizing Provider: Edilma Escobar MD Collected: 04/14/2020 6513 Ordering Location: [facility] Received: 04/14/[address] [place] [address] Pathologist: Ryne Corey MD Specimens: A) - ENDOCERVICAL, cervix B) - ENDOMETRIUM, endometrium Final Diagnosis 04/14/2020 Value:This result contains rich text formatting which cannot be displayed here. Clinical Information 04/14/2020 Value:post menopausal bleeding Gross Description 04/14/2020 Value:This result contains rich text formatting which cannot be displayed here. Radiology EXAM: US PELVIS COMPLETE WITH TRANSVAGINAL HISTORY: 59 years -old Female with postmenopausal bleeding TECHNIQUE: Transabdominal and transvaginal ultrasound imaging of the pelvis was performed including color Doppler evaluation. Insulation Hoseman images were obtained for the record. COMPARISON: None FINDINGS: Uterus: Size: 5.6 x 2.7 x 3.5 cm Orientation: Anteverted Myometrium: Homogenous, an anechoic section scar is noted. Masses: None Cervix: Unremarkable Endometrial thickness: 3 mm Endometrium: Normal Right Adnexa: Right ovary is not visualized. No adnexal mass or collection. Left Adnexa: Ovary size: 2.8 x 1.5 x 1.4 cm, 3 mL Ovary appearance: Few small follicles. Other: No mass or collection. Cul-de-sac: No free fluid. IMPRESSION Unremarkable sonogram of the uterus and left ovary. Right ovary was not visualized I, Amanda Devine MD., have reviewed this study and agree with the above report. Physical Exam Discussion in lieu of physical examination. ASSESSMENT/ PLAN Vikki Zamudio is a 59 year old female with PMH as above presenting with: 1. Post-menopausal bleeding Results of EMBx was benign and Pelvic sonogram normal with an ET of 3mm. She had significant postmenopausal atrophy on her PE so will consider short term vaginal estrogen with her but I would like to discuss this further with her at her [employer] appointment especially she having a hard time hearing me on today's visit due her crying grandchild in the background.I explained that her results are reassuringbut we will discuss further and she agreed with plan Plan Plan of care, desired health behaviors, goals, Ddx, and any prescribed medications were discussed with the patient. I spent 15 minute(s) conducting this Telehealth encounter with the patient. Education resources and self- management tools were provided is the AVS which is accessible through [employer]. Patient/guardian/family verbalized understanding and agrees to the plan of care. Barriers to care:None. Ability to manage care: Good. If applicable, the [employer] database was accessed to review any controlled substance prescription claims data. If the patient is taking prescribed medications, the [employer] prescription claims data in [employer] was reviewed to assess patient compliance with the medication treatment plan. COVID-19 precautions given including frequent handwashing, social distancing, cleaning and disinfecting, indications for testing, etc. Follow-up: Return as scheduled. Follow-up sooner if any problems or concerns. Edilma Escobar MD documented in this encounter Plan of Treatment Date Type Specialty Care Team Description 06/02/2020 Office Visit Obstetrics & Gynecology Nette Escobar MD [address] [place] [address] [place] [address] Health Maintenance Due Date Last [...] of this encounter Implants Implanted Type Area Pack Worker Device Shelf Model / Serial Identifier Expiration / Lot Date Lens LENS Left: Eye Perez 03/21/2020 SN60WF / Implanted: Qty: 1 on 08/31/2015 by Freddy Guzmán MD at [facility] 1 [id number] / [id number] Lens LENS Right: Perez 02/20/2020 [id number] / Implanted: Qty: 1 on 10/05/2015 by Freddy Guzmán MD at [facility] Eye 0 [id number] / [id number] documented as of this encounter Results Not on filedocumented in this encounter Visit Diagnoses Diagnosis Post-menopausal bleeding - Primary Postmenopausal bleeding documented in this encounter Insurance Payer Benefit Plan / Subscriber ID Effective Dates Phone Addre ss Type Group [facility] [place] [place] [id number] 2012-Present Medicaid COMM PLAN - PLUS MANAGED MEDICAID documented as of this encounter
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
--- OUTSIDE RECORDS SUMMARY | 2020-07-27 19:24 | XMS REPORT | Summary of Care ---
:1960 Author Organization [facility] - Health Address [address] [place] [address] Care Team Providers Name Role Phone Rome Moran Primary Care Provider Encounter Details Date Type Department Care Team Description 07/03/2020 Orders Only [facility] Doctor Unassigned, No [address] [facility] [place] [address] [place] [address] Allergies Active Allergy Reactions Severity Noted Date Comments Codeine Itching Medium 08/30/2015 documented as of this encounter (statuses as of 07/16/2020) Medications Medication Sig Dispensed Refills Start Date [...] both eyes daily. fluticasone propionate Use 1 [place] in 0 03/15/2019 Active 50 mcg/actuation nasal [...] as of this encounter (statuses as of 07/16/2020) Active Problems Problem Noted Date Obesity (BMI 30-39.9) 06/02/2020 Morbid obesity with body mass index of 40.0-49.9 10/06 VIVEK on CPAP Hypothyroidism COPD (chronic obstructive pulmonary disease) Bipolar affective disorder Wears partial dentures documented as of this encounter (statuses as of 07/16/2020) Social History Tobacco Use Types Packs/Day Years [...] & Gynecology Me erin Garza MD [address] [facility] [address] [place] [address] Health Maintenance Due Date Last Done Comments [...] of this encounter Implants Implanted Type Area Peeler Operator Device Shelf Model / Serial Identifier Expiration / Lot Date Lens LENS Left: Eye Perez 03/21/2020 SN60WF / Implanted: Qty: 1 on 08/31/2015 by Freddy Guzmán MD at [facility] 0 [id number] / [id number] Lens LENS Right: Perez 02/20/2020 SN60WF / Implanted: Qty: 1 on 10/05/2015 by Freddy Guzmán MD at [facility] Eye 9 [id number] / [id number] documented as of this encounter Procedures Procedure Name Priority Date/Time Associated Diagnosis Comme nts REFERRAL- Routine 07/03/2020 12:01 AM CDT REQUEST/RESPONSE documented in this encounter Results Not on filedocumented in this encounter Insurance Payer Benefit Plan / Subscriber ID Effective Dates Phone Addre ss Type Group [facility] [id number] 2012-Present Medicaid COMM PLAN - PLUS MANAGED MEDICAID documented as of this encounter
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
--- OUTSIDE RECORDS SUMMARY | 2020-07-27 19:24 | XMS REPORT | Summary of Care ---
:1960 Author Organization [facility] Address [address] [place] [address] Care Team Providers Name Role Phone Rome Moran Primary Care Provider Encounter Details Date Type Department Care Team Description 07/12/2020 Hospital Encounter [facility] [address] [address] [place], [place] [phone] Allergies Active Allergy Reactions Severity Noted Date Comments Codeine Itching Medium 08/30/2015 documented as of this encounter (statuses as of 07/13/2020) Medications Medication Sig Dispensed Refills Start Date [...] both eyes daily. fluticasone propionate Use 1 [place] in 0 03/15/2019 Active 50 mcg/actuation nasal [...] for of spine, cervical 90 days. region documented as of this encounter (statuses as of 07/13/2020) Active Problems Problem Noted Date Obesity (BMI 30-39.9) 06/02/2020 Morbid obesity with body mass index of 40.0-49.9 10/06 VIVEK on CPAP Hypothyroidism COPD (chronic obstructive pulmonary disease) Bipolar affective disorder Wears partial dentures documented as of this encounter (statuses as of 07/13/2020) Social History Tobacco Use Types Packs/Day Years [...] Obstetrics & Gynecology Me erin Garza MD [address] [place] [address] Name Type Priority Associated Diagnoses Date/Ti me XR CERVICAL SPINE 2 VW IMAGING Routine Cervicalgia 07/12 12:12 PM CDT Name Type Priority Associated Diagnoses Order S chedule XR CERVICAL SPINE 2 VW IMAGING Routine Cervicalgia ONCE for 1 Occurrences starting 2019 until 07/12/2020 Health Maintenance Due Date Last Done Comments [...] of this encounter Implants Implanted Type Area Transformation Coach Device Shelf Model / Serial Identifier Expiration / Lot Date Lens LENS Left: Eye Perez 03/21/2020 SN60WF / Implanted: Qty: 1 on 08/31/2015 by Freddy Guzmán MD at [facility] 6 [id number] / [id number] Lens LENS Right: Perez 02/20/2020 [id number] / Implanted: Qty: 1 on 10/05/2015 by Freddy Guzmán MD at [facility] Eye 7 [id number] / [id number] documented as of this encounter Results Not on filedocumented in this encounter Visit Diagnoses Diagnosis Cervicalgia documented in this encounter Insurance Payer Benefit Plan / Subscriber ID Effective Dates Phone Addre ss Type Group [facility] [id number] 2012-Present Medicaid COMM PLAN - PLUS MANAGED MEDICAID documented as of this encounter
[2020-07-27] MEDS ORDERED: IPRATROPIUM BROM 0.5MG/2.5ML ONE (19:55)
[2020-07-27] MEDS ORDERED: METHYLPREDNISOLONE 125 MG INJ ONE (19:55)
[2020-07-27] MEDS ORDERED: MORPHINE 4 MG/ML SYR ONE (19:56)
[2020-07-27] MEDS ORDERED: ONDANSETRON 4 MG/2 ML VIAL ONE ×2 (19:56→21:13)
[2020-07-27] MEDS ORDERED: NA CHLORIDE 0.9% 1,000 ML ONE (19:56)
[2020-07-27] MEDS ORDERED: ALBUTEROL 2.5 MG/3 ML NEB SOL ONE (19:56)
[2020-07-27] MEDS ORDERED: FAMOTIDINE 20 MG/2 ML VIAL IV ONE (19:56)
[2020-07-27 19:59] LABS: Absolute Lymphocytes (CBC) 1.1 K/uL (0.7-4.9); Basophils % 0.3 % (0-1.3); Hematocrit 38.6 % (36.0-45.0); Lymphocytes % 12.2 % (15.3-44.8); MPV 7.8 fL (7.6-11.3)
[2020-07-27 20:00] LABS: Protime INR 1.01
[2020-07-27 20:17] LABS: ALT/SGPT 14 U/L (12-78); AST/SGOT 13 U/L (15-37); Albumin 3.2 g/dL (3.4-5.0); Alkaline Phosphatase 115 U/L (45-117); BUN Blood Urea Nitrogen 7 mg/dL (7-18); Bicarbonate 39 mmol/L (21-32); Bilirubin Direct < 0.1 mg/dL (0-0.2); Bilirubin Total 0.5 mg/dL (0.2-1.0); Glucose Level 109 mg/dL (74-106); Lipase 61 U/L (73-393); NT PRO-BNP 446 pg/mL (<125); Protein, Total 7.4 g/dL (6.4-8.2); Sodium Level 140 mmol/L (136-145); Troponin (Emerg Dept Use Only) < 0.02 ng/mL (0.0-0.045)
[2020-07-27] MEDS ORDERED: METRONIDAZOLE 500mg IVPB 500 MG/100 ML BAG IV ONE (20:17)
[2020-07-27] MEDS ORDERED: Levofloxacin500mg IV 500 MG/100 ML BAG IV ONE (20:17)
--- NOTE | 2020-07-27 20:34 | EDPHYS ---
Physician Documentation [facility] Name: Vikki Zamudio Age: 59 yrs Sex: Female : 1960 Arrival Date: 07/27/2020 Time: 19:23 Bed 2 Private MD: ED Physician HPI: 07/27 19:37 This 59 yrs old Female presents to ER via EMS with complaints of Breathing chato Difficulty. 19:37 The patient has shortness of breath at rest, with light activity. chato 19:38 Onset: The symptoms/episode began/occurred yesterday. Duration: The symptoms are chato continuous, and are steadily getting worse. The patient's shortness of breath is aggravated by coughing. The patient presents with abdominal pain. The patient presents with abdominal distention in the upper abdomen, in the lower abdomen. Onset: The symptoms/episode began/occurred 1 day(s) ago. The patient presents to the emergency department with nausea, vomiting, abdominal pain, of the right upper quadrant, left upper quadrant, right lower quadrant and left lower quadrant. Possible causes: unknown. The symptoms are aggravated by movement, The symptoms are alleviated by nothing. Historical: - Allergies: 19:28 Codeine; ea - PMHx: 19:28 Sleep Apnea; Panic Attacks; Hypothyroidism; Hypertension; High Cholesterol; COPD; GERD; ea CHF; - Immunization history:: Adult Immunizations up to date. - Social history:: Smoking status: Patient/guardian denies using tobacco. - Family history:: not pertinent. ROS: 19:38 Constitutional: Negative for fever, chills, and weight loss, Eyes: Negative for injury, chato pain, redness, and discharge, ENT: Negative for injury, pain, and discharge, Neck: Negative for injury, pain, and swelling, Cardiovascular: Negative for chest pain, palpitations, and edema, Back: Negative for injury and pain, : Negative for injury, bleeding, discharge, and swelling, MS/Extremity: Negative for injury and deformity, Skin: Negative for injury, rash, and discoloration, Neuro: Negative for headache, weakness, numbness, tingling, and seizure, Psych: Negative for depression, anxiety, suicide ideation, homicidal ideation, and hallucinations, Allergy/Immunology: Negative for hives, rash, and allergies, Endocrine: Negative for neck swelling, polydipsia, polyuria, polyphagia, and marked weight changes, Hematologic/Lymphatic: Negative for swollen nodes, abnormal bleeding, and unusual bruising. 19:38 Respiratory: Positive for cough, with no reported sputum. 19:38 Abdomen/GI: Positive for abdominal pain, nausea and vomiting, abdominal cramps, abdominal distension, of the right upper quadrant, left upper quadrant, right lower quadrant and left lower quadrant. Exam: 19:40 Constitutional: This is a well developed, well nourished patient who is awake, alert, chato and in no acute distress. Head/Face: Normocephalic, atraumatic. Eyes: Pupils equal round and reactive to light, extra-ocular motions intact. Lids and lashes normal. Conjunctiva and sclera are non-icteric and not injected. Cornea within normal limits. Periorbital areas with no swelling, redness, or edema. ENT: Nares patent. No nasal discharge, no septal abnormalities noted. Tympanic membranes are normal and external auditory canals are clear. Oropharynx with no redness, swelling, or masses, exudates, or evidence of obstruction, uvula midline. Mucous membranes moist. Neck: Trachea midline, no thyromegaly or masses palpated, and no cervical lymphadenopathy. Supple, full range of motion without nuchal rigidity, or vertebral point tenderness. No Meningismus. Chest/axilla: Normal chest wall appearance and motion. Nontender with no deformity. No lesions are appreciated. Cardiovascular: Regular rate and rhythm with a normal S1 and S2. No gallops, murmurs, or rubs. Normal PMI, no JVD. No pulse deficits. Back: No spinal tenderness. No costovertebral tenderness. Full range of motion. Female : Normal external genitalia. MS/ Extremity: Pulses equal, no cyanosis. Neurovascular intact. Full, normal range of motion. Neuro: Awake and alert, GCS 15, oriented to person, place, time, and situation. Cranial nerves II-XII grossly intact. Motor strength 5/5 in all extremities. Sensory grossly intact. Cerebellar exam normal. Normal gait. Psych: Awake, alert, with orientation to person, place and time. Behavior, mood, and affect are within normal limits. 19:40 Respiratory: mild respiratory distress is noted, Respirations: labored breathing, that is mild, Breath sounds: decreased breath sounds, rhonchi, that are mild, are scattered. 19:40 Abdomen/GI: Inspection: distension, Bowel sounds: diminished, Palpation: mild abdominal tenderness, moderate abdominal tenderness, in the right upper quadrant, left upper quadrant, right lower quadrant and left lower quadrant, Liver: no appreciated palpable abnormalities, Hernia: not appreciated. 19:44 ECG was reviewed by the Attending Physician. [facility] Vital Signs: 19:24 BP 157 / 115; Pulse 74; Resp 22; Temp 98.6; Pulse Ox 95% on 3 lpm NC; Weight 122.47 kg; ea Height 5 ft. 9 in. (175.26 cm); 22:28 BP 157 / 99; Pulse 84; Resp 20; Pulse Ox 100% on ETT vent; ea 23:01 BP 132 / 89; Pulse 68; Resp 20; Pulse Ox 100% on ETT vent; ea 23:53 BP 123 / 95; Pulse 70; Resp 20; Temp 98.1; Pulse Ox 100% on 30% FiO2 ETT vent; ea 19:24 Body Mass Index 39.87 (122.47 kg, 175.26 cm) Procedures: 22:57 Intubation: Ventilated with 100% NRB prior to procedure. O2 saturation prior to jr8 procedure was 88 %. Intubated orally using # 4 Vernell blade with 7.5 mm ETT. was successful on first attempt. Ventilated with Ambu bag. ventilator. Tube secured with ETT law at center of mouth measured 22 cm at lip. Placement verified by CXR, CO2 detector with (+) color change, auscultating bilateral breath sounds, O2 saturation after procedure was 100 %. Patient tolerated well. MDM: 19:23 Patient medically screened. chato 19:41 Differential diagnosis: Anemia CHF exacerbation, Chronic Obstructive Pulmonary Disease chato Nonspecific abd pain, cholecystitis, pancreatitis, appendicitis, diverticulitis, gastroenteritis, Psychogenic Pulmonary Embolism Unstable Angina bowel obstruction, Cholelithiasis, diverticulitis, gastroesophageal reflux disease, GI Bleed, Irritable bowel syndrome, Mesenteric ischemia or infarction, non-specific abd pain, pancreatitis, Perf. Gastric Ulcer, Pyelonephritis, Ureterolithiasis, urinary tract infection. Antibiotic administration: Levaquin given, flagyl. The patient's Wells Deep Vein Thrombosis Score was calculated as follows: Total Score: 0-2 Pts- Low Risk. The patient's pulmonary embolism risk score was calculated as follows: Total Score: 0-2 points. This patient was found to be at low risk for a pulmonary embolism by using the Well's assessment criteria. Immunization status: Influenza vaccine: Data reviewed: vital signs, nurses notes, lab test result(s), EKG, radiologic studies, CT scan, plain films. Data interpreted: audio installer: rhythm is regular, Pulse oximetry: on room air is 95 %. Test interpretation: by ED physician or midlevel provider: ECG, plain radiologic studies. Counseling: I had a detailed discussion with the patient and/or guardian regarding: the historical points, exam findings, and any diagnostic results supporting the discharge/admit diagnosis, lab results, radiology results, the need for further work-up and treatment in the hospital. 07/27 19:37 Order name: Basic Metabolic Panel; Complete Time: 20:23 [facility] 07/27 19:37 Order name: CBC with Diff; Complete Time: 20:23 [facility] 07/27 19:37 Order name: LFT's; Complete Time: 20:23 [facility] 07/27 19:37 Order name: Magnesium; Complete Time: 20:23 [facility] 07/27 19:37 Order name: NT PRO-BNP; Complete Time: 20:23 [facility] 07/27 19:37 Order name: PT-INR; Complete Time: 20:23 [facility] 07/27 19:37 Order name: Troponin (emerg Dept Use Only); Complete Time: 20:23 [facility] 07/27 19:37 Order name: Lipase; Complete Time: 20:23 [facility] 07/27 19:37 Order name: Lactate; Complete Time: 20:23 [facility] 07/27 19:45 Order name: Influenza Screen (a \T\ B); Complete Time: 23:32 [facility] 07/27 19:57 Order name: Glucose, Ancillary Testing; Complete Time: 20:23 [facility] 07/27 20:25 Order name: ABG; Complete Time: 23:32 [facility] 07/27 20:34 Order name: CREATININE WHOLE BLOOD; Complete Time: 20:44 [facility] 07/27 19:37 Order name: XRAY Chest (1 view); Complete Time: 23:32 [facility] 07/27 19:37 Order name: CT Abd/Pelvis - IV Contrast Only; Complete Time: 20:44 [facility] 07/27 20:48 Order name: BIPAP [facility] 07/27 21:44 Order name: XRAY Chest (1 view) 07/27 21:53 Order name: SARS-COV-2 RT PCR; Complete Time: 23:32 EDMS 07/27 23:33 Order name: ABG jr8 07/27 19:37 Order name: EKG; Complete Time: 19:38 chato 07/27 19:37 Order name: Cardiac monitoring; Complete Time: 19:40 chato 07/27 19:37 Order name: EKG - Nurse/Tech; Complete Time: 19:40 chato 07/27 19:37 Order name: IV Saline Lock; Complete Time: 19:40 chato 07/27 19:37 Order name: Labs collected and sent; Complete Time: 19:58 chato 07/27 19:37 Order name: O2 Per Protocol; Complete Time: 19:58 chato 07/27 19:37 Order name: O2 Sat Monitoring; Complete Time: 23:02 chato 07/27 21:45 Order name: NG Tube; Complete Time: 21:45 sg 07/27 21:45 Order name: Allen; Complete Time: 21:45 sg EC:44 Rate is 71 beats/min. Rhythm is regular. QRS Tyler is Normal. AR interval is normal. QRS chato interval is normal. QT interval is normal. No Q waves. T waves are Normal. No ST changes noted. Clinical impression: Normal ECG and No evidence of ischemia. Interpreted by me. Reviewed by me. Administered Medications: 19:46 Drug: Pepcid 20 mg Route: IVP; Site: right antecubital; ea 20:00 Follow up: Response: No adverse reaction ea 19:48 Drug: SOLU-Medrol 125 mg Route: IVP; Site: right antecubital; ea 20:00 Follow up: Response: No adverse reaction ea 19:50 Drug: NS 0.9% 1000 ml Route: IV; Rate: 1 bolus; Site: right antecubital; ea 21:50 Follow up: Response: No adverse reaction; IV Status: Completed infusion; IV Intake: ea 1000ml 19:50 Drug: Albuterol - atroVENT (3:1) (2.5 mg - 0.5 mg) 3 ml Route: Nebulizer; ea 20:10 Follow up: Response: No adverse reaction ea 19:56 Drug: Zofran (Ondansetron) 4 mg Route: IVP; Site: right antecubital; ea 20:00 Follow up: Response: No adverse reaction ea 19:58 Drug: morphine 4 mg Route: IVP; Site: right antecubital; ea 20:30 Follow up: Response: No adverse reaction; RASS: Alert and Calm (0) ea 20:15 Drug: Flagyl 500 mg Volume: 100 ml; Route: IVPB; Rate: 200 ml/hr; Infused Over: 30 ea mins; Site: right antecubital; 20:50 Follow up: Response: No adverse reaction; IV Status: Completed infusion; IV Intake: ea 100ml 21:04 Drug: Zofran (Ondansetron) 4 mg Route: IVP; Site: right antecubital; ea 21:30 Follow up: Response: No adverse reaction ea 21:15 Drug: levofloxacin 500 mg Volume: 100 ml; Route: IVPB; Infused Over: 60 mins; Site: ea left antecubital; 22:15 Follow up: Response: No adverse reaction; IV Status: Completed infusion ea 21:15 Drug: Xopenex (3) 1.25 mg Route: Inhalation; ea 21:35 Drug: Etomidate 20 mg Route: IVP; Site: left hand; mg2 22:19 Follow up: Response: No adverse reaction ea 21:36 Drug: Rocuronium 100 mg Route: IVP; Site: left hand; mg2 21:40 Follow up: Response: No adverse reaction ea 21:40 Drug: Phenergan 12.5 mg Route: IVP; Site: right antecubital; ea 22:20 Follow up: Response: No adverse reaction ea 21:50 Drug: Propofol 5 mcg/kg/min Route: IV; Rate: calculated rate; Site: left hand; ea 23:45 Follow up: Response: No adverse reaction; IV Status: Infusion continued upon transfer ea Disposition: 07/28 07:10 Co-signature as Attending Physician, Po Toure MD I agree with the assessment and chato plan of care. Disposition: 07/27/20 21:48 Transfer ordered to [facility]. Diagnosis are Chronic obstructive pulmonary disease with (acute) exacerbation, Respiratory failure, unspecified with hypercapnia, Respiratory failure, unspecified with hypoxia, Abdominal tenderness, Obesity, unspecified. - Reason for transfer: Higher level of care. - Accepting physician is [facility]. - Condition is Serious. - Problem is new. - Symptoms have improved. Signatures: Dispatcher [employer] EDAndre Flower RN RN sg Anderson, Corey, MD MD cha Roszak, Josh, PA PA [id number] Mary Ellen Villanueva RN RN ea Botello, Elizabeth eb Gardose, Michele, RN RN mg2 Corrections: (The following items were deleted from the chart) 07/27 20:50 20:33 Hospitalization Ordered by Prince Mickey DIETRICH for Inpatient Admission. Preliminary chato diagnosis is Abdominal tenderness; Vomiting; Chronic obstructive pulmonary disease with (acute) exacerbation; Obesity, unspecified. Bed requested for Telemetry/MedSurg (Inpatient). Status is Inpatient Admission. Condition is Fair. Problem is new. Symptoms have improved. [facility] 20:50 20:50 07/27/2020 20:33 Hospitalization Ordered by Prince Mickey DIETRICH for Inpatient chato Admission. Preliminary diagnosis is Abdominal tenderness; Vomiting; Chronic obstructive pulmonary disease with (acute) exacerbation; Obesity, unspecified; Respiratory failure, unspecified with hypercapnia; Respiratory failure, unspecified with hypoxia; Cholelithiasis; Diverticular disease of intestine. Bed requested for Telemetry/MedSurg (Inpatient). Status is Inpatient Admission. Condition is Fair. Problem is new. Symptoms have improved. [facility] 20:53 19:46 CORONAVIRUS+MR.LAB.ALESSIAZ ordered. EDNJ EDMS 21:46 20:50 07/27/2020 20:33 Hospitalization Ordered by Prince Mickey DIETRICH for Inpatient chato Admission. Preliminary diagnosis is Abdominal tenderness; Vomiting; Chronic obstructive pulmonary disease with (acute) exacerbation; Obesity, unspecified; Respiratory failure, unspecified with hypercapnia; Respiratory failure, unspecified with hypoxia; Cholelithiasis; Diverticular disease of intestine; Acidosis - respiratory. Bed requested for Telemetry/MedSurg (Inpatient). Status is Inpatient Admission. Condition is Fair. Problem is new. Symptoms have improved. [facility] 23:55 21:48 07/27/2020 21:48 Transfer ordered to [facility]. ea Diagnosis is Chronic obstructive pulmonary disease with (acute) exacerbation; Respiratory failure, unspecified with hypercapnia; Respiratory failure, unspecified with hypoxia; Abdominal tenderness; Obesity, unspecified. Reason for transfer: Higher level of care. Accepting physician is to [facility]. Condition is Serious. Problem is new. Symptoms have improved. chato 07/28 09:04 07/27 23:55 07/27/2020 21:48 Transfer ordered to [facility]. eb Diagnosis is Chronic obstructive pulmonary disease with (acute) exacerbation; Respiratory failure, unspecified with hypercapnia; Respiratory failure, unspecified with hypoxia; Abdominal tenderness; Obesity, unspecified. Reason for transfer: Higher level of care. Accepting physician is to [facility]. Condition is Serious. Problem is new. Symptoms have improved. ea 07/28 09:04 09:04 07/27/2020 21:48 Transfer ordered to [facility]. Diagnosis is eb Chronic obstructive pulmonary disease with (acute) exacerbation; Respiratory failure, unspecified with hypercapnia; Respiratory failure, unspecified with hypoxia; Abdominal tenderness; Obesity, unspecified. Reason for transfer: Higher level of care. Accepting physician is [facility]. Condition is Serious. Problem is new. Symptoms have improved. eb
--- NOTE | 2020-07-27 20:34 | ER ---
Nurse's Notes [facility] Name: Vikki Zamudio Age: 59 yrs Sex: Female : 1960 Arrival Date: 07/27/2020 Time: 19:23 Bed 2 Private MD: Diagnosis: Chronic obstructive pulmonary disease with (acute) exacerbation;Respiratory failure, unspecified with hypercapnia;Respiratory failure, unspecified with hypoxia;Abdominal tenderness;Obesity, unspecified Presentation: 07/27 19:24 Chief complaint: EMS states: Reports pt was complaining of abdominal pain, reports pt ea started getting short of breath on scene. Placed on non rebreather. Pt reports she has been having nausea and headaches. Coronavirus screen: headache, loss of taste or smell, Client presents with at least one sign or symptom that may indicate coronavirus-19. Standard/surgical mask placed on the client. Ebola Screen: No symptoms or risks identified at this time. Initial Sepsis Screen: Does the patient meet any 2 criteria? No. Patient's initial sepsis screen is negative. Does the patient have a suspected source of infection? No. Patient's initial sepsis screen is negative. Risk Assessment: Do you want to hurt yourself or someone else? Patient reports no desire to harm self or others. Onset of symptoms was July 27, 2020. 19:24 Method Of Arrival: EMS: [facility] 19:24 Acuity: LIZETH 3 ea Triage Assessment: 19:29 General: Appears uncomfortable, Behavior is restless. Pain: Complains of pain in ea abdomen. Neuro: Level of Consciousness is awake, alert, obeys commands, Oriented to person, place, time, situation. Cardiovascular: Patient's skin is warm and dry. Respiratory: Reports pain with respiration Airway is patent Respiratory effort is even, unlabored, Respiratory pattern is tachypnea Onset: The symptoms/episode began/occurred today, the patient has mild shortness of breath. GI: Reports nausea. Derm: Skin is pink, warm \T\ dry. Historical: - Allergies: 19:28 Codeine; ea - PMHx: 19:28 Sleep Apnea; Panic Attacks; Hypothyroidism; Hypertension; High Cholesterol; COPD; GERD; ea CHF; - Immunization history:: Adult Immunizations up to date. - Social history:: Smoking status: Patient/guardian denies using tobacco. - Family history:: not pertinent. Screenin:24 Abuse screen: Denies threats or abuse. Nutritional screening: No deficits noted. ea Tuberculosis screening: No symptoms or risk factors identified. Fall Risk None identified. Assessment: 19:30 Reassessment: see triage assessment. ea 21:04 Reassessment: Respiratory at bedside placing pt on BiPAP. ea 21:25 Reassessment: Pt slow to respond, responds to painful stimulus. Provider at bedside, ea verbal order to set up for intubation. 21:40 Respiratory: Ventilator assessment: ET Tube: 7.5 22cm at lip Ventilator Mode: Assist ea Control (AC) Tidal Volume: 600 Respiratory Rate: 20 FiO2: 30% HOB > 30 degrees. 22:53 Reassessment: Report called to Lisa CARDONA at [facility] [phone]. ea 22:55 Reassessment: Pt is resting with eyes closed. ETT in place respirations assisted, ena ea breath sounds present, NG tube in place to low intermittent suction. Allen catheter in place to BSD. IV sites patent with fluid infusing. No erythema or edema noted. Awaiting on [facility] for transport. 23:53 Reassessment: [facility] at facility for transfer. Pt resting with eyes closed. ea ETT in place respirations assisted, ena breath sounds present, NG tube in place to low intermittent suction. Allen catheter in place BSD. IV sites patent with fluid infusing. No erythema or edema noted. Pt left ED via stretcher per EMS. Vital Signs: 19:24 BP 157 / 115; Pulse 74; Resp 22; Temp 98.6; Pulse Ox 95% on 3 lpm NC; Weight 122.47 kg; ea Height 5 ft. 9 in. (175.26 cm); 22:28 BP 157 / 99; Pulse 84; Resp 20; Pulse Ox 100% on ETT vent; ea 23:01 BP 132 / 89; Pulse 68; Resp 20; Pulse Ox 100% on ETT vent; ea 23:53 BP 123 / 95; Pulse 70; Resp 20; Temp 98.1; Pulse Ox 100% on 30% FiO2 ETT vent; ea 19:24 Body Mass Index 39.87 (122.47 kg, 175.26 cm) ea ED Course: 19:23 Patient arrived in ED. am2 19:23 Po Toure MD is Attending Physician. [facility] 19:24 Mary Ellen Villanueva, RN is Primary Nurse. ea 19:25 Inserted saline lock: 20 gauge in right antecubital area, using aseptic technique. ea 19:27 Triage completed. ea 19:27 Patient has correct armband on for positive identification. Bed in low position. Call ea light in reach. 19:29 Arm band placed on right wrist. Patient placed in an exam room, on a stretcher, on ea pulse oximetry. 20:14 CT Abd/Pelvis - IV Contrast Only In Process Unspecified. EDMS 20:31 Prince Arevalo MD is Hospitalizing Provider. [facility] 21:00 XRAY Chest (1 view) In Process Unspecified. EDMS 21:40 Assisted provider with intubation via oral route. ET tube secured at lips. Placement ea verified by auscultating bilateral breath sounds, Patient tolerated well. 21:45 Inserted saline lock: 20 gauge in left hand, using aseptic technique. ea 22:06 XRAY Chest (1 view) In Process Unspecified. EDMS 22:47 Patient transferred, IV remains in place. ea 07/28 09:03 Attending Physician role handed off by Po Toure MD 09:03 Primary Nurse role handed off by Mary Ellen Villanueva, DULCE Administered Medications: 07/27 19:46 Drug: Pepcid 20 mg Route: IVP; Site: right antecubital; ea 20:00 Follow up: Response: No adverse reaction ea 19:48 Drug: SOLU-Medrol 125 mg Route: IVP; Site: right antecubital; ea 20:00 Follow up: Response: No adverse reaction ea 19:50 Drug: NS 0.9% 1000 ml Route: IV; Rate: 1 bolus; Site: right antecubital; ea 21:50 Follow up: Response: No adverse reaction; IV Status: Completed infusion; IV Intake: ea 1000ml 19:50 Drug: Albuterol - atroVENT (3:1) (2.5 mg - 0.5 mg) 3 ml Route: Nebulizer; ea 20:10 Follow up: Response: No adverse reaction ea 19:56 Drug: Zofran (Ondansetron) 4 mg Route: IVP; Site: right antecubital; ea 20:00 Follow up: Response: No adverse reaction ea 19:58 Drug: morphine 4 mg Route: IVP; Site: right antecubital; ea 20:30 Follow up: Response: No adverse reaction; RASS: Alert and Calm (0) ea 20:15 Drug: Flagyl 500 mg Volume: 100 ml; Route: IVPB; Rate: 200 ml/hr; Infused Over: 30 ea mins; Site: right antecubital; 20:50 Follow up: Response: No adverse reaction; IV Status: Completed infusion; IV Intake: ea 100ml 21:04 Drug: Zofran (Ondansetron) 4 mg Route: IVP; Site: right antecubital; ea 21:30 Follow up: Response: No adverse reaction ea 21:15 Drug: levofloxacin 500 mg Volume: 100 ml; Route: IVPB; Infused Over: 60 mins; Site: ea left antecubital; 22:15 Follow up: Response: No adverse reaction; IV Status: Completed infusion ea 21:15 Drug: Xopenex (3) 1.25 mg Route: Inhalation; ea 21:35 Drug: Etomidate 20 mg Route: IVP; Site: left hand; mg2 22:19 Follow up: Response: No adverse reaction ea 21:36 Drug: Rocuronium 100 mg Route: IVP; Site: left hand; mg2 21:40 Follow up: Response: No adverse reaction ea 21:40 Drug: Phenergan 12.5 mg Route: IVP; Site: right antecubital; ea 22:20 Follow up: Response: No adverse reaction ea 21:50 Drug: Propofol 5 mcg/kg/min Route: IV; Rate: calculated rate; Site: left hand; ea 23:45 Follow up: Response: No adverse reaction; IV Status: Infusion continued upon transfer ea Intake: 20:50 IV: 100ml; Total: 100ml. ea 21:50 IV: 1000ml; Total: 1100ml. ea Outcome: 20:33 Decision to Hospitalize by Provider. chato 21:48 ER care complete, transfer ordered by . chato 22:54 Condition: stable ea 22:54 Instructed on the need for transfer, Pt sedated and intubated 23:55 Transferred by ground EMS to [facility], Transfer form completed. ea 23:55 Patient left the ED. ea 07/28 09:04 Patient left the ED. eb Signatures: Dispatcher [employer] Po Thompson MD MD cha Moreno, Amanda am2 Mary Ellen Villanueva, RN RN Hetal Ruiz Michele, RN RN mg2 Corrections: (The following items were deleted from the chart) 07/27 22:29 22:28 BP 157 / 99; Pulse 84bpm; Resp 20bpm; Pulse Ox 100%; franc bruner 23:53 23:48 Reassessment: [facility] at facility for transfer. Pt resting with eyes ea closed. ETT in place respirations assisted, ena breath sounds present, NG tube in place to low intermittent suction. Allen catheter in place BSD. IV sites patent with fluid infusing. No erythema or edema noted. Pt left ED via stretcher per EMS. franc
--- NOTE | 2020-07-27 20:42 | RAD REPORT ---
EXAM DESCRIPTION: CTAbdomen Pelvis W Contrast - 07/27/2020 8:13 pm CLINICAL HISTORY: Abdominal pain. ABD PAIN COMPARISON: No comparisons TECHNIQUE: Biphasic CT imaging of the abdomen and pelvis was performed with 100 ml non-ionic IV cont rast. All CT scans are performed using dose optimization technique as appropriate and may include automated exposure control or mA/KV adjustment according to patient size. FINDINGS: The lung bases are clear.Cholelithiasis. The liver, spleen, pancreas, adrenal glands and kidneys are within normal limits. No bowel obstruction, free air, free fluid or abscess. Mild sigmoid diverticulosis without diverticul itis. The appendix is not identified as a discrete structure, however, no secondary findings of appen dicitis are identified. No evidence of significant lymphadenopathy. Moderate lumbosacral degenerative changes. IMPRESSION: Cholelithiasis. Sigmoid diverticulosis without diverticulitis.
[2020-07-27 20:45] LABS: Arterial Blood Carboxyhemoglob 5.3 % (0-1.5); Blood Gas Oxyhemoglobin 76.5 % (94-97); Blood O2 Saturation 81.6 % (92-98.5)
--- NOTE | 2020-07-27 21:09 | RAD REPORT ---
EXAM DESCRIPTION: RAD - Chest Single View - 07/27/2020 8:59 pm CLINICAL HISTORY: COPD;Abdominal distention Chest pain. COMPARISON: Chest Single View dated 05/15/2020; Chest Single View dated 04/29/2019; Chest Single View d ated 03/16/2019; Chest Single View dated 07/18/2018 FINDINGS: Portable technique limits examination quality. The lungs are grossly clear. The heart is normal in size. No displaced fractures. IMPRESSION: No acute intrathoracic process suspected.
[2020-07-27] MEDS ORDERED: LEVALBUTEROL 1.25 MG/3 ML NEB ONE (21:13)
[2020-07-27] MEDS ORDERED: PROMETHAZINE INJ 25 MG/ML AMP ONE (21:41)
[2020-07-27] MEDS ORDERED: RSI MEDICATION KIT IV ONE (21:44)
[2020-07-27] MEDS ORDERED: ROCURONIUM 50 MG/5 ML VIAL IV ONE (21:44)
[2020-07-27] MEDS ORDERED: propofoL 1,000 MG/100 ML VIAL IV ONE ×2 (22:04→23:56)
[2020-07-28 04:04] LABS: Blood Gas Oxyhemoglobin 12.8 % (94-97); Blood O2 Saturation 97.8 % (92-98.5)
[2020-07-28 04:05] VITALS: O2SAT 100
[2020-07-28 04:07] LABS: Arterial Blood Carboxyhemoglob 4.4 % (0-1.5)
[2020-07-28 04:08] VITALS: BP 123/95; TEMP 98.1
--- NOTE | 2020-07-28 08:47 | RAD REPORT ---
EXAM DESCRIPTION: RAD - Chest Single View - 07/27/2020 10:06 pm CLINICAL HISTORY: post intubation and NG tube placement Chest pain. COMPARISON: Chest Single View dated 07/27/2020; Chest Single View dated 05/15/2020; Chest Single View dated 04/29/2019; Chest Single View dated 03/16/2019 FINDINGS: Portable technique limits examination quality. The lungs are emphysematous but grossly clear. The heart is normal in size. No displaced fractures.ET tube tip is above the darrion. Endotracheal tube tip is at the level of midesophagus.
== END 2020-07-28 09:04 | disposition short-term general hospital (02) ==
LOC: ER 19:19
DX: J44.1 Chronic obstructive pulmonary disease with (acute) exacerbation (principal); J96.92 Respiratory failure, unspecified with hypercapnia; J96.91 Respiratory failure, unspecified with hypoxia; Z20.828 Contact with and (suspected) exposure to other viral communicable diseases; R10.819 Abdominal tenderness, unspecified site; E66.9 Obesity, unspecified; K80.20 Calculus of gallbladder without cholecystitis without obstruction; I10 Essential (primary) hypertension; I50.9 Heart failure, unspecified; Z88.5 Allergy status to narcotic agent
CPT/HCPCS: 93005; 85025; 80048; 36415; 83735; 85610; 82565; 82947; 80076; 83605; 84484; 83690; 83880; 87804 ×2; 74177; 71045 ×2; 94002; 82805 ×2; 94660; 31500; 99285; U0003; Q9967; J2550; J2704 ×2; J7030; J2930; J2405 ×2

== ENCOUNTER 2020-09-16 01:08 | Inpatient (IN) | payer OTHER ==
--- OUTSIDE RECORDS SUMMARY | 2020-09-16 01:10 | XMS REPORT | Clinical Summary ---
:1960 Author Organization [facility] Address [address] [place] [address] Care Team Providers Name Role Phone Unavailable [...] Not on file Results Not on fileafter 09/16/2019 Insurance Payer Benefit Plan Subscriber ID Effective Dates Phone Address Type / Group MEDICAID - [facility] [id number] 2011-Gladys soliz MEDICAID D STAR PLAN [facility] Advance Directives For more information, please contact: [phone] Code Status Date Activated Date Inactivated Comments Full Code 02/24/2017 8:19 AM 02/26/2017 1:59 PM This code status was determined by: Patient
--- OUTSIDE RECORDS SUMMARY | 2020-09-16 01:11 | XMS REPORT | Continuity of Care Document ---
:1960 Author Organization [facility] Address [address] [place] [address] Care Team Providers Name Role Phone NeelKelsie GRANULATOR OPERATOR Attending Clinician Doctor Unassigned, Name Attending Clinician Unavailable KELLY Attending Clinician Unavailable KELLY Admitting Clinician Unavailable Problems Condition Condition Condition Status Onset Resolution Last Treating Co mments Source Name Details Category Date Date Treatment Clinician Date Tobacco Tobacco Disease Active [facility] [place] Hypoxemia Hypoxemia Disease Active [facility] [place] COPD COPD Disease Active [facility] exacerbati exacerbati 6-05 Pema kes - on on 00:00: Medical 00 [place] Acute Acute Disease Active [facility] hypercapni hypercapni 6-05 P[facility] k[facility] - c c 00:00: Medical respirator respirator 00 Ce nter y failure y failure Allergies, Adverse Reactions, Alerts This patient has no known allergies or adverse reactions. Social History Social Habit Start Date Stop Date Quantity Comments Source Sex Assigned At [facility] Medications Ordered Filled Start Stop Current [...] Type Clinicians Facility Department ID 2020-07[facility]12 [id number] 11:56:24 23:59:00 Encounter [facility] [id number] Shibi s and [id number] Adult [id number] Primary [address] [place] [address] Clinic 2020-07-12 2020-07-12 Office Neel-Ku Tate [id number] 11:00:10 13:58:54 Visit [facility] [id number] Shibi s and [id number] Adult [id number] Primary [facility] 2020-07-03 2020-07-03 Orders Doctor THI [id number] 00:00:00 00:00:00 Only Unassigned, VIRGILIO [id number] [facility] [id number] Results Test Description Test Time Test [...] 0-0 (BEAKER) (test code = 413) 0.00POCT-GLUCOSE [id number] 17:50:00 Test Item Value Reference Range Interpretation Comments POC-GLUCOSE METER 118 mg/dL 70-110 H TESTED AT [facility] 6720 (BEAKER) (test code = DEANABRIANDA BLAKELY 1538) [id number] POCT-GLUCOSE [id number] 11:59:00 Test Item Value Reference Range Interpretation Comments POC-GLUCOSE METER 247 mg/dL 70-110 H TESTED AT [facility] 6720 (BEAKER) (test code = KISHA Pabon [place] 1538) [id number] POCT-GLUCOSE [id number] 07:54:00 Test Item Value Reference Range Interpretation Comments POC-GLUCOSE METER 141 mg/dL 70-110 H TESTED AT [facility] 6720 (BEAKER) (test code = KISHA Pabon [place] 1538) [id number] CBC W/PLT COUNT & AUTO [id number] 03:45:00 Test Item Value Reference Range Interpretation [...] K/ L 0.00-0.20 (test code = 417) [id number] 03:29:00 Test Item Value Reference Range Interpretation Comments MAGNESIUM (BEAKER) 1.8 mg/dL 1.6-2.6 Specimen slightly (test code = 627) hemolyzed BASIC METABOLIC [id number] 03:29:00 Test Item Value Reference Range Interpretation [...] NOT APPLICABLE FOR DIALYSIS PATIEN TS. POCT-GLUCOSE [id number] 00:05:00 Test Item Value Reference Range Interpretation Comments POC-GLUCOSE METER 117 mg/dL 70-110 H TESTED AT [facility] 67[address] (BEAKER) (test code = KISHA [place] 1538) [id number] POCT-GLUCOSE [id number] 18:17:00 Test Item Value Reference Range Interpretation Comments POC-GLUCOSE METER 141 mg/dL 70-110 H TESTED AT [facility] 6720 (BEAKER) (test code = KISHA Pabon [place] 1538) [id number] CREATINE KINASE (CK), TOTAL AND [id number] 15:43:00 Test Item Value Reference Range Interpretation Comments CREATINE KINASE TOTAL (BEAKER) 31 U/L 29-200 (test code = 380) CREATINE KINASE-MB (BEAKER) (test 1.3 ng/mL 0.0-6.6 code = 750) CREATINE KINASE-MB INDEX (BEAKER) 4.2 % (test code = 395) Effective 08/09/2014: CK-MB Reference Range ChangeNew: 0.0-6.6 Previous: 0.0-4.9CK-MB Reference Range:<6.7 Normal6.7-10.0 Borderline>10.0 AbnormalBLOOD GAS, [id number] 15:26:00 Test Item Value Reference Range Interpretation [...] (test code = 1819) 35.0 % POCT-GLUCOSE [id number] 11:45:00 Test Item Value Reference Range Interpretation Comments POC-GLUCOSE METER 122 mg/dL 70-110 H TESTED AT [facility] 6720 (BEAKER) (test code = KISHA Pabon [place] 1538) [id number] CREATINE KINASE (CK), TOTAL AND [id number] 10:29:00 Test Item Value Reference Range Interpretation Comments CREATINE KINASE TOTAL (BEAKER) 31 U/L 29-200 (test code = 380) CREATINE KINASE-MB (BEAKER) (test 1.5 ng/mL 0.0-6.6 code = 750) CREATINE KINASE-MB INDEX (BEAKER) 4.8 % (test code = 395) Effective 08/09/2014: CK-MB Reference Range ChangeNew: 0.0-6.6 Previous: 0.0-4.9CK-MB Reference Range:<6.7 Normal6.7-10.0 Borderline>10.0 AbnormalTROPONIN [id number] 10:29:00 Test Item Value Reference Range Interpretation [...] renalfailure, acidosis, acute neurological disease, and persistent tachyarrhythmia.[id number] 10:22:00 Test Item Value Reference Range Interpretation Comments PARTIAL THROMBOPLASTIN TIME 22.5 seconds 22.5-36.0 (BEAKER) (test code = 760) PROTHROMBIN [id number] 10:21:00 Test Item Value Reference Range Interpretation Comments PROTIME (BEAKER) (test code = 12.4 seconds 11.7-14.7 759) INR (BEAKER) (test code = 370) 0.9 <=5.9 RECOMMENDED COUMADIN/WARFARIN INR THERAPY RANGESSTANDARD DOSE: 2.0 - 3.0 Includes: PROPHYLAXIS forvenous thrombosis, systemic embolization; TREATMENT for venous thrombosis and/or pulmonary embolus.HIGH RISK: Target INR is 2.5-3.5 for patients with mechanical heart valves.BLOOD GAS, [id number] 10:17:00 Test Item Value Reference Range Interpretation [...] (test code = 1819) 40.0 % PLATELET [id number] 10:13:00 Test Item Value Reference Range Interpretation Comments PLATELET COUNT (BEAKER) (test 111 K/CU MM 150-430 L code = 756)
[2020-09-16 01:26] LABS: Absolute Lymphocytes (CBC) 1.5 K/uL (0.7-4.9); Basophils % 0.5 % (0-1.3); Hematocrit 39.4 % (36.0-45.0); Lymphocytes % 17.9 % (15.3-44.8); MPV 7.8 fL (7.6-11.3)
[2020-09-16 01:27] LABS: Protime INR 1.03
[2020-09-16] MEDS ORDERED: IPRATROPIUM BROM 0.5MG/2.5ML ONE ×4 (01:30→20:21)
[2020-09-16] MEDS ORDERED: ALBUTEROL 2.5 MG/3 ML NEB SOL ONE ×4 (01:30→20:21)
[2020-09-16 01:49] LABS: ALT/SGPT 7 U/L (12-78); AST/SGOT 6 U/L (15-37); Albumin 3.2 g/dL (3.4-5.0); Alkaline Phosphatase 92 U/L (45-117); BUN Blood Urea Nitrogen 10 mg/dL (7-18); Bicarbonate 43 mmol/L (21-32); Bilirubin Direct 0.1 mg/dL (0-0.2); Bilirubin Total 0.5 mg/dL (0.2-1.0); Glucose Level 115 mg/dL (74-106); Magnesium 2.1 mg/dL (1.8-2.4); NT PRO-BNP 173 pg/mL (<125); Protein, Total 6.4 g/dL (6.4-8.2); Sodium Level 144 mmol/L (136-145); Troponin (Emerg Dept Use Only) < 0.02 ng/mL (0.0-0.045)
[2020-09-16 01:53] LABS: Arterial Blood Carboxyhemoglob 3.8 % (0-1.5); Blood Gas Oxyhemoglobin 95.1 % (94-97); Blood O2 Saturation 99.7 % (92-98.5)
--- NOTE | 2020-09-16 02:24 | EDPHYS ---
Physician Documentation [facility] Name: Vikki Zamudio Age: 60 yrs Sex: Female : 1960 Arrival Date: 09/16/2020 Time: 01:09 Bed 5 Private MD: ED Physician Raul Mittal HPI: 09/16 02:10 This 60 yrs old Female presents to ER via EMS with complaints of Respiratory mh7 Distress. 02:10 The patient has shortness of breath at rest. Onset: The symptoms/episode began/occurred mh7 3 day(s) ago. Duration: The symptoms are intermittent, with no pattern. The patient's shortness of breath is aggravated by coughing, is alleviated by nothing. Associated signs and symptoms: Pertinent positives: chest pain, non-productive cough, Pertinent negatives: productive cough, diaphoresis, dizziness, fever, hemoptysis, loss of consciousness, nausea, numbness in extremities, visual changes, vomiting. Severity of symptoms: At their worst the symptoms were moderate last night, in the emergency department the symptoms are unchanged. The patient has experienced similar episodes in the past, multiple times. Historical: - Allergies: : Codeine; mg2 - Home Meds: :27 acetazolamide 125 mg Oral tab 1 tab once daily [Active]; mg2 - PMHx: :27 CHF; COPD; GERD; High Cholesterol; Hypertension; Hypothyroidism; Panic Attacks; Sleep mg2 Apnea; - Immunization history:: Flu vaccine status is unknown. - Social history:: Smoking status: unknown. ROS: 02:10 Constitutional: Negative for fever, chills, and weight loss, Eyes: Negative for injury, mh7 pain, redness, and discharge, ENT: Negative for injury, pain, and discharge, Neck: Negative for injury, pain, and swelling, Abdomen/GI: Negative for abdominal pain, nausea, vomiting, diarrhea, and constipation, Back: Negative for injury and pain, : Negative for injury, bleeding, discharge, and swelling, MS/Extremity: Negative for injury and deformity, Skin: Negative for injury, rash, and discoloration, Neuro: Negative for headache, weakness, numbness, tingling, and seizure, Psych: Negative for depression, anxiety, suicide ideation, homicidal ideation, and hallucinations, Allergy/Immunology: Negative for hives, rash, and allergies, Endocrine: Negative for neck swelling, polydipsia, polyuria, polyphagia, and marked weight changes, Hematologic/Lymphatic: Negative for swollen nodes, abnormal bleeding, and unusual bruising. Exam: 02:10 Head/Face: Normocephalic, atraumatic. Eyes: Pupils equal round and reactive to light, mh7 extra-ocular motions intact. Lids and lashes normal. Conjunctiva and sclera are non-icteric and not injected. Cornea within normal limits. Periorbital areas with no swelling, redness, or edema. Neck: Trachea midline, no thyromegaly or masses palpated, and no cervical lymphadenopathy. Supple, full range of motion without nuchal rigidity, or vertebral point tenderness. No Meningismus. Chest/axilla: Normal chest wall appearance and motion. Nontender with no deformity. No lesions are appreciated. Cardiovascular: Regular rate and rhythm with a normal S1 and S2. No gallops, murmurs, or rubs. Normal PMI, no JVD. No pulse deficits. 02:10 Abdomen/GI: Soft, non-tender, with normal bowel sounds. No distension or tympany. No guarding or rebound. No evidence of tenderness throughout. Back: No spinal tenderness. No costovertebral tenderness. Full range of motion. Skin: Warm, dry with normal turgor. Normal color with no rashes, no lesions, and no evidence of cellulitis. MS/ Extremity: Pulses equal, no cyanosis. Neurovascular intact. Full, normal range of motion. Neuro: Awake and alert, GCS 15, oriented to person, place, time, and situation. Cranial nerves II-XII grossly intact. Motor strength 5/5 in all extremities. Sensory grossly intact. Cerebellar exam normal. Normal gait. Psych: Awake, alert, with orientation to person, place and time. Behavior, mood, and affect are within normal limits. 02:10 Constitutional: The patient appears alert, awake, obviously ill, uncomfortable. 02:10 Respiratory: moderate respiratory distress is noted, Respirations: prolonged exhalation, that is moderate, tachypnea, that is moderate, Breath sounds: rhonchi, that are moderate, are scattered, wheezing: expiratory that is moderate, is heard diffusely. Vital Signs: 01:10 BP 182 / 83; Pulse 80; Resp 28; Temp 96.9; Pulse Ox 88% on R/A; Weight 122.47 kg; mg2 Height 5 ft. 9 in. (175.26 cm); 01:10 Body Mass Index 39.87 (122.47 kg, 175.26 cm) mg2 MDM: 02:21 Differential diagnosis: Anemia Anxiety Reaction asthma, Bronchitis CHF exacerbation, [facility] Chronic Obstructive Pulmonary Disease Myocardial Infarction pneumonia, Pneumothorax pulmonary edema. Data reviewed: vital signs, nurses notes, EMS record, old medical records, lab test result(s), cardiac enzymes, CBC, electrolytes, urinalysis, EKG, radiologic studies, plain films. Data interpreted: Pulse oximetry: on 4L(s) per nasal canula, is 93 %. Interpretation: acceptable. Counseling: I had a detailed discussion with the patient and/or guardian regarding: the historical points, exam findings, and any diagnostic results supporting the discharge/admit diagnosis, the presence of at least one elevated blood pressure reading (>120/80) during this emergency department visit, lab results, radiology results, the need for further work-up and treatment in the hospital. 02:23 Patient medically screened. [facility] 09/16 01:10 Order name: Basic Metabolic Panel [facility] 09/16 01:10 Order name: CBC with Diff; Complete Time: 02:21 [facility] 09/16 01:10 Order name: LFT's; Complete Time: 02:21 [facility] 09/16 01:10 Order name: Magnesium; Complete Time: 02:21 [facility] 09/16 01:10 Order name: NT PRO-BNP; Complete Time: 02:21 [facility] 09/16 01:10 Order name: PT-INR; Complete Time: 02:21 [facility] 09/16 01:10 Order name: Troponin (emerg Dept Use Only); Complete Time: 02:21 [facility] 09/16 01:10 Order name: XRAY Chest (1 view) [facility] 09/16 01:11 Order name: Basic Metabolic Panel; Complete Time: 02:21 [facility] 09/16 01:11 Order name: Arterial Blood Gas; Complete Time: 02:05 [facility] 09/16 02:20 Order name: COVID-19 ds4 09/16 04:01 Order name: SARS-COV-2 RT PCR [facility] 09/16 12:25 Order name: ABG Arterial Blood Gas; Complete Time: 17:59 [facility] 09/16 01:10 Order name: EKG; Complete Time: 01:11 7 09/16 01:10 Order name: Cardiac monitoring; Complete Time: 01:15 7 09/16 01:10 Order name: EKG - Nurse/Tech; Complete Time: 01:18 7 09/16 01:10 Order name: IV Saline Lock; Complete Time: 01:15 7 09/16 01:10 Order name: Labs collected and sent; Complete Time: 01:15 7 09/16 01:10 Order name: O2 Per Protocol; Complete Time: 01:15 7 09/16 01:10 Order name: O2 Sat Monitoring; Complete Time: 01:15 7 Administered Medications: 01:14 Drug: Albuterol - atroVENT (3:1) (2.5 mg - 0.5 mg) 3 ml Route: Nebulizer; mg2 02:34 Follow up: Response: No adverse reaction mg2 Disposition: 09/16/20 02:23 Hospitalization ordered by Isai Do for Inpatient Admission. Preliminary diagnosis is COPD Exacerbation. - Bed requested for Telemetry/MedSurg (Inpatient). - Status is Inpatient Admission. lp1 - Condition is Stable. - Problem is an acute exacerbation. - Symptoms have improved. Signatures: Dispatcher [employer] EDMS Kira Alcantar RN RN lp1 Rishi Holt, REHABILITATION CASEWORKER-C REHABILITATION CASEWORKER-Cla1 Shannan Badillo RN RN tl1 Belinda Damon RN RN García Ramirez RN RN mg2 Raul Mittal MD MD 7 Corrections: (The following items were deleted from the chart) 02:53 02:23 Hospitalization Ordered by Isai Do MD for Inpatient Admission. tl1 Preliminary diagnosis is COPD Exacerbation. Bed requested for Telemetry/MedSurg (Inpatient). Status is Inpatient Admission. Condition is Stable. Problem is an acute exacerbation. Symptoms have improved. 7 20:00 02:53 09/16/2020 02:23 Hospitalization Ordered by Isai Do MD for Inpatient cg Admission. Preliminary diagnosis is COPD Exacerbation. Bed requested for [facility] ER HOLD. Status is Inpatient Admission. Condition is Stable. Problem is an acute exacerbation. Symptoms have improved. tl1 20:49 20:00 09/16/2020 02:23 Hospitalization Ordered by Isai Do MD for Inpatient lp1 Admission. Preliminary diagnosis is COPD Exacerbation. Bed requested for Telemetry/MedSurg (Inpatient). Status is Inpatient Admission. Condition is Stable. Problem is an acute exacerbation. Symptoms have improved. cg
--- NOTE | 2020-09-16 02:24 | ER ---
Nurse's Notes [facility] Name: Vikki Zamudio Age: 60 yrs Sex: Female : 1960 Arrival Date: 09/16/2020 Time: 01:09 Bed 5 Private MD: Diagnosis: COPD Exacerbation Presentation: 09/16 01:10 Chief complaint: EMS states: she has shortness of breath and chest pain for 3 days. mg2 solu-medrol 125 mg given enroute. Coronavirus screen: Client denies travel out of the [place] in the last 14 days. Ebola Screen: No symptoms or risks identified at this time. Initial Sepsis Screen: Does the patient meet any 2 criteria? No. Patient's initial sepsis screen is negative. Does the patient have a suspected source of infection? No. Patient's initial sepsis screen is negative. Risk Assessment: Do you want to hurt yourself or someone else? Patient reports no desire to harm self or others. Onset of symptoms was September 14, 2020. 01:10 Method Of Arrival: EMS: [facility] [place] 01:10 Acuity: LIZETH 2 mg2 Triage Assessment: :27 General: Appears distressed, Behavior is cooperative. Pain: Complains of pain in chest. mg2 EENT: No signs and/or symptoms were reported regarding the EENT system. Neuro: Level of Consciousness is awake, alert, obeys commands, Oriented to person, place, time, situation. Cardiovascular: Capillary refill < 3 seconds Patient's skin is warm and dry. Respiratory: Reports shortness of breath at rest Onset: The symptoms/episode began/occurred gradually, the patient has moderate shortness of breath. GI: No signs and/or symptoms were reported involving the gastrointestinal system. : No signs and/or symptoms were reported regarding the genitourinary system. Derm: Skin is intact, is healthy with good turgor, Skin is pink, warm \T\ dry. normal. Musculoskeletal: Circulation, motion, and sensation intact. Capillary refill < 3 seconds. Historical: - Allergies: Codeine; mg2 - Home Meds: acetazolamide 125 mg Oral tab 1 tab once daily [Active]; mg2 - PMHx: : CHF; COPD; GERD; High Cholesterol; Hypertension; Hypothyroidism; Panic Attacks; Sleep mg2 Apnea; - Immunization history:: Flu vaccine status is unknown. - Social history:: Smoking status: unknown. Screenin:29 Abuse screen: Denies threats or abuse. Denies injuries from another. Nutritional mg2 screening: No deficits noted. Tuberculosis screening: No symptoms or risk factors identified. Fall Risk IV access (20 points). Assessment: 01:28 General: see triage assessment. mg2 01:29 Respiratory: Airway is patent Respiratory effort is labored. mg2 02:34 Reassessment: RT applied BIPAP to patient. mg2 Vital Signs: 01:10 BP 182 / 83; Pulse 80; Resp 28; Temp 96.9; Pulse Ox 88% on R/A; Weight 122.47 kg; mg2 Height 5 ft. 9 in. (175.26 cm); 01:10 Body Mass Index 39.87 (122.47 kg, 175.26 cm) mg2 ED Course: 01:09 Patient arrived in ED. am2 01:09 Raul Mittal MD is Attending Physician. 7 01:14 García Ramirez RN is Primary Nurse. mg2 01:20 EKG done, by ED staff, reviewed by Raul Mittal MD. ds4 01:26 Triage completed. mg2 01:28 Arm band placed on. mg2 01:29 No provider procedures requiring assistance completed. Maintain EMS IV. Dressing mg2 intact. Good blood return noted. Site clean \T\ dry. Gauge \T\ site: 20 \T\ LAC. 01:29 Patient has correct armband on for positive identification. patient monitor on. Pulse mg2 ox on. NIBP on. Door closed. Warm blanket given. 01:30 XRAY Chest (1 view) In Process Unspecified. EDMS 01:50 Notified ED physician of a critical lab result(s). Bicarb 43. lp1 02:22 Isai Do MD is Hospitalizing Provider. mh7 Administered Medications: 01:14 Drug: Albuterol - atroVENT (3:1) (2.5 mg - 0.5 mg) 3 ml Route: Nebulizer; mg2 02:34 Follow up: Response: No adverse reaction mg2 Outcome: 02:23 Decision to Hospitalize by Provider. mh7 20:25 Admitted to Med/surg room 220, with oxygen, with chart, Report called to DULCE Cook lp1 20:25 Condition: stable 20:25 Instructed on the need for admit. 20:49 Patient left the ED. lp1 Signatures: Dispatcher [employer] EDMS Kira Alcantar RN RN lp1 Yonny Murdock 4 Marleny Vazquez Michele, RN RN mg2 Raul Mittal MD MD 7
--- NOTE | 2020-09-16 03:34 | P.HP ---
Certification for Inpatient Patient admitted to: Inpatient With expected LOS: >2 Midnights Patient will require the following post-hospital care: None Practitioner: I am a practitioner with admitting privileges, knowledge of patient current condition, hospital course, and medical plan of care. Services: Services provided to patient in accordance with Admission requirements found in Title 42 Section 412.3 of the Code of Federal Regulations Patient History Date of Service: 09/16/20 Primary Care Provider: None Reason for admission: COPD exacerbation History of Present Illness: 60-year-old female with history of obesity, end-stage COPD on home oxygen in chronic steroid therapy, hypertension, hypothyroidism presents to the emergency department for shortness of breath. Patient was placed on BiPAP upon arrival, initial ABG reveals pH 7.26, CO2 120 HC03 51.9. Serum carbon-dioxide level 43, other labs unremarkable. Chest x-ray without any acute changes. Patient was seen on July 27 for similar complaints and intubated in the emergency department, transferred for ICU level care. Room air saturations were noted to be in the 80s by EMS. Patient was given IV steroids and nebs in the ER. Patient seems to be improving on BiPAP at this time but she keeps wanting to take it off, patient is mildly confused, a little bit lethargic likely due to the hypercapnia, patient explained that she absolutely needs to have the BiPAP on at least for the next few hr, warned that without the she would likely need to be intubated again. Patient verbalized understanding. Patient is full code at this time. Allergies codeine [Codeine] Adverse Reaction (Mild, Verified 04/30/19 01:29) itch Home Medications: Albuterol Sulfate [Proair Hfa] 8.5 gm IH QID PRN 10/22/15 Atorvastatin Calcium 20 mg PO BEDTIME 10/10/17 Latanoprost Ophth [Xalatan 0.005%*] 1 gtt EACH EYE BEDTIME 10/10/17 Roflumilast [Daliresp*] 500 mcg PO DAILY 10/10/17 Umeclidinium Brm/Vilanterol Tr [Anoro Ellipta 62.5-25 Mcg INH] 1 puff IH DAILY 10/10/17 acetaZOLAMIDE [Diamox*] 125 mg PO BID #180 tab 02/20/18 Aspirin [Aspirin EC 81 MG] 81 mg PO BEDTIME 03/16/19 Furosemide [Lasix*] 20 mg PO DAILY 03/16/19 Tramadol HCl [Ultram] 50 mg PO TID 03/16/19 Bismuth Subsalicylate [Bismatrol] 262 mg PO QID PRN 15 Days #60 tab.chew 03/17/19 Promethazine HCl [Phenergan] 25 mg PO TIDP PRN 10 Days #30 supp.rect 03/17/19 Brimonidine [Alphagan P 0.15%*] 1 gtt OPTH BID 05/01/19 Prednisone [Sterapred Ds] 10 mg PO BID #21 tab.ds.pk 05/03/19 - Past Medical/Surgical History Diabetic: No -: Severe COPD, oxygen/steroid dependent,Pulmonary-Dr. Do -: Mild pulmonary hypertension -: Hypothyroidism -: Bipolar disorder -: Hypertension -: Chronic low back pain -: Obstructive sleep apnea -: Tobacco abuse -: HLD -: GERD -: Appendectomy -: Psychosocial/ Personal History: She lives with a partner. She has 1 child. She is currently disabled. - Family History Father -: Heart disease, Hypertension, Diabetes Notes: from CHF Mother -: Heart disease, Hypertension, Diabetes Notes: from CHF Brother -: Diabetes Sister -: Heart disease, Diabetes Notes: from CHF - Social History Alcohol use: Yes CD- Drugs: No Caffeine use: Yes Review of Systems is unable to be obtained Physical Examination - Physical Exam General: Alert, Oriented x2, Moderate distress HEENT: Atraumatic, Normocephalic Neck: Supple Respiratory: Expiratory wheezes Cardiovascular: No edema, Normal S1 S2 Capillary refill: <2 Seconds Gastrointestinal: Normal bowel sounds, No tenderness, No masses, No rebound Musculoskeletal: No contractures, No erythema, No tenderness Integumentary: No significant lesion, No tenderness/swelling, No erythema Neurological: Normal speech, Normal strength at 5/5 x4 extr, Normal tone, Sensation intact - Studies Laboratory Data (last 24 hrs) 09/16/20 01:15: PT 12.2, INR 1.03 09/16/20 01:15: WBC 8.4, Hgb 12.4, Hct 39.4, Plt Count 154 09/16/20 01:15: Sodium 144, Potassium 4.0, BUN 10, Creatinine 0.49 L, Glucose 115 H, Magnesium 2.1, Total Bilirubin 0.5, AST 6 L, ALT 7 L, Alkaline Phosphatase 92 Assessment and Plan - Plan Assessment Acute on chronic hypoxic hypercapnic respiratory failure secondary to end-stage COPD on home oxygen and chronic oral steroid therapy Chronic Diastolic CHF Hypertension Hypothyroidism Plan Acute on chronic hypoxic hypercapnic respiratory failure secondary to end-stage COPD on home oxygen and chronic oral steroid therapy: Continue with IV s teroids, BiPAP. Admit ICU overnight due to patient's mild altered mentation and requirement for noninvasive ventilation. Can likely be downgraded in the morning. Daily ABG. Scheduled nebs. DVT prophylaxis with Lovenox 40 mg subcutaneous once daily. Fall and aspiration precautions. Chronic Diastolic CHF: Obtain and continue home medications Hypertension: Obtain and continue home medication Hypothyroidism: Obtain and continue home medications Discharge Plan: Home Plan to discharge in: 72 Hours - Advance Directives Does patient have a Living Will: No Does patient have a Durable POA for Healthcare: No - Code Status/Comfort Care Code Status Assessed: Yes (Full code) Critical Care: No Time Spent Managing Pts Care (In Minutes): 55
[2020-09-16] MEDS ORDERED: ONDANSETRON 4 MG/2 ML VIAL IV PRN (04:13)
[2020-09-16] MEDS ORDERED: SODIUM CHLORIDE 0.9% 10ML INJ IV PRN (04:13)
[2020-09-16] MEDS ORDERED: ACETAMINOPHEN 500 MG TAB PO PRN (04:13)
[2020-09-16] MEDS ORDERED: FUROSEMIDE 20 MG/ 2ML VIAL ONE (08:09)
[2020-09-16] MEDS ORDERED: ENOXAPARIN 40 MG/0.4 ML SQ ONE (08:09)
[2020-09-16] MEDS ORDERED: PANTOPRAZOLE 40 MG INJ ONE (08:09)
[2020-09-16] MEDS ORDERED: METHYLPREDNISOLONE 40 MG INJ ONE ×2 (08:09→17:22)
[2020-09-16] MEDS: IPRATROPIUM BROM 0.5MG/2.5ML NEB SCH ×3 (08:13→20:20)
[2020-09-16] MEDS: ALBUTEROL 2.5 MG/3 ML NEB SOL NEB SCH ×3 (08:13→20:20)
[2020-09-16] MEDS: PANTOPRAZOLE 40 MG INJ IVP SCH (08:29)
[2020-09-16] MEDS: ENOXAPARIN 40 MG/0.4 ML SQ SCH (08:29)
[2020-09-16] MEDS: METHYLPREDNISOLONE 40 MG INJ IV SCH ×2 (08:30→17:00)
[2020-09-16] MEDS ORDERED: FUROSEMIDE 20 MG/ 2ML VIAL IV SCH (09:00)
[2020-09-16] MEDS: ACETAZOLAMIDE 500 MG IV IV SCH ×2 (10:04→22:31)
[2020-09-16] MEDS: SPIRONOLACTONE 25 MG TABLET PO SCH ×2 (10:05→21:15)
[2020-09-16] MEDS ORDERED: WATER FOR INJ,STERILE 10 ML ONE (10:46)
[2020-09-16 12:24] LABS: Arterial Blood Carboxyhemoglob 2.6 % (0-1.5); Blood Gas Oxyhemoglobin 85.8 % (94-97); Blood O2 Saturation 88.8 % (92-98.5)
--- NOTE | 2020-09-16 12:45 | RAD REPORT ---
EXAM DESCRIPTION: RAD - Chest Single View - 09/16/2020 1:30 am CLINICAL HISTORY: SOB Chest pain. COMPARISON: Chest Single View dated 07/27/2020; Chest Single View dated 07/27/2020; Chest Single View dated 05/15/2020; Chest Single View dated 04/29/2019 FINDINGS: Portable technique limits examination quality. The lungs are emphysematous but grossly clear. The heart is normal in size. No displaced fractures. IMPRESSION: Mild diffuse COPD.
[2020-09-16] MEDS ORDERED: ACETAZOLAMIDE 500 MG IV ONE (21:46)
[2020-09-16 22:46] VITALS: BMI 38.9
[2020-09-17] MEDS ORDERED: MELATONIN 5 MG TABLET PO PRN (00:17)
[2020-09-17] MEDS: METHYLPREDNISOLONE 40 MG INJ IV SCH ×2 (00:41→09:54)
[2020-09-17] MEDS: IPRATROPIUM BROM 0.5MG/2.5ML NEB SCH ×2 (02:15→09:20)
[2020-09-17] MEDS: ALBUTEROL 2.5 MG/3 ML NEB SOL NEB SCH ×2 (02:15→09:20)
[2020-09-17 05:23] LABS: Arterial Blood Carboxyhemoglob 1.4 % (0-1.5); Blood O2 Saturation 96.3 % (92-98.5)
[2020-09-17 06:00] LABS: Absolute Lymphocytes (CBC) 0.3 K/uL (0.7-4.9); Basophils % 0.2 % (0-1.3); Hematocrit 37.3 % (36.0-45.0); Lymphocytes % 5.2 % (15.3-44.8); MPV 7.9 fL (7.6-11.3); RBC Red Blood Cell Count 4.32 M/uL (3.86-4.86)
[2020-09-17 06:28] LABS: Magnesium 2.5 mg/dL (1.8-2.4); Potassium 3.7 mmol/L (3.5-5.1)
[2020-09-17 08:54] VITALS: BP 139/77; TEMP 97.2
[2020-09-17] MEDS: PANTOPRAZOLE 40 MG INJ IVP SCH (09:00)
[2020-09-17] MEDS ORDERED: POTASSIUM CL SA 10 MEQ TAB PO ONE (09:00)
[2020-09-17] MEDS: ACETAZOLAMIDE 500 MG IV IV SCH (09:00)
[2020-09-17] MEDS: SPIRONOLACTONE 25 MG TABLET PO SCH (09:54)
[2020-09-17] MEDS: ENOXAPARIN 40 MG/0.4 ML SQ SCH (09:54)
[2020-09-17 10:27] VITALS: O2SAT 97
[2020-09-17 10:29] LABS: Platelet Estimate DECR; White Blood Cell Scan OK (OK)
[2020-09-17 10:30] LABS: Blood Morphology Comment NOT SEEN (NOT SEEN)
--- NOTE | 2020-09-17 10:39 | P.DS ---
Admission Date: 09/16/20 Discharge Date: 09/17/20 Primary Care Provider: None Disposition: ROUTINE DISCHARGE Discharge Condition: FAIR Reason for Admission: COPD exacerbation Brief History of Present Illness: Patient is 60 years of age admitted with worsening respiratory failure hypercapnia was admitted placed on BiPAP he is chronically hypercapnic Hospital Course: Patient did well on BiPAP no new complaints apparently she her of all her medications as a primary care physician quit recently the time of discharge patient was alert oriented responsive cooperative chest is clear diminished air entry extremities mild edema patient has terminal COPD of faxed all her medications to her pharmacy patient has CPAP at home bicarb is elevated due to chronic CO2 retention Diamox has also been faxed Vital Signs/Physical Exam: Temp Pulse Resp BP Pulse Ox 97.2 F 75 20 139/77 95 09/17/20 08:00 09/17/20 09:54 09/17/20 08:00 09/17/20 09:54 09/17/20 08:00 Laboratory Data at Discharge: WBC 6.3 K/uL (4.3-10.9) D 09/17/20 05:44 Hgb 11.8 g/dL (12.0-15.0) L 09/17/20 05:44 Hct 37.3 % (36.0-45.0) 09/17/20 05:44 Plt Count 150 K/uL (152-406) L 09/17/20 05:44 PT 12.2 SECONDS (9.5-12.5) 09/16/20 01:15 INR 1.03 09/16/20 01:15 Sodium 139 mmol/L (136-145) 09/17/20 05:44 Potassium 3.7 mmol/L (3.5-5.1) 09/17/20 05:44 BUN 22 mg/dL (7-18) H 09/17/20 05:44 Creatinine 0.79 mg/dL (0.55-1.3) 09/17/20 05:44 Glucose 165 mg/dL (74-106) H 09/17/20 05:44 Magnesium 2.5 mg/dL (1.8-2.4) H 09/17/20 05:44 Total Bilirubin 0.5 mg/dL (0.2-1.0) 09/16/20 01:15 AST 6 U/L (15-37) L 09/16/20 01:15 ALT 7 U/L (12-78) L 09/16/20 01:15 Alkaline Phosphatase 92 U/L (45-117) 09/16/20 01:15 Home Medications: Albuterol Sulfate [Proair Hfa] 8.5 gm IH QID PRN 10/22/15 Atorvastatin Calcium 20 mg PO BEDTIME 10/10/17 Roflumilast [Daliresp*] 500 mcg PO DAILY 10/10/17 Umeclidinium Brm/Vilanterol Tr [Anoro Ellipta 62.5-25 Mcg INH] 1 puff IH DAILY 10/10/17 Furosemide [Lasix*] 20 mg PO DAILY 03/16/19 Gabapentin 300 mg PO BID 09/16/20 carvediloL [Carvedilol] 6.25 mg PO DAILY 09/16/20 clonazePAM [Clonazepam] 0.5 mg PO DAILY PRN 09/16/20 predniSONE [Deltasone*] 10 mg PO BID #20 tab 09/17/20 New Medications: predniSONE [Deltasone*] 10 mg PO BID #20 tab Followup: ALEJANDRA MCGUIRE [OUTSIDE PHYSICIAN] -
[2020-09-18] MEDS ORDERED: acetaZOLAMIDE 250 MG TAB PO ONE (09:36)
== END 2020-09-17 11:00 | disposition home or self-care (01) | DRG 189 ==
LOC: ER 01:08 → ERHOLD 02:43 → 2ND 20:21
PROVIDERS: ADMIT Internal Medicine Sleep Medicine; ATTEND Internal Medicine Sleep Medicine
PROC: 5A09457 Assistance with Respiratory Ventilation, 24-96 Consecutive Hours, Continuous Positive Airway Pressure (ICD-10-PCS; principal; 2020-09-16)
DX: J96.21 Acute and chronic respiratory failure with hypoxia (principal); I50.32 Chronic diastolic (congestive) heart failure; J96.22 Acute and chronic respiratory failure with hypercapnia; I11.0 Hypertensive heart disease with heart failure; K21.9 Gastro-esophageal reflux disease without esophagitis; E78.5 Hyperlipidemia, unspecified; E03.9 Hypothyroidism, unspecified; J44.9 Chronic obstructive pulmonary disease, unspecified; Z88.5 Allergy status to narcotic agent; Z99.81 Dependence on supplemental oxygen; Z79.82 Long term (current) use of aspirin; Z79.899 Other long term (current) drug therapy; Z79.52 Long term (current) use of systemic steroids; Z20.828 Contact with and (suspected) exposure to other viral communicable diseases
CPT/HCPCS: 36415; 71045; 80048; 80076; 82805; 83735; 83880; 84443; 84484; 85025; 85610; 93005; 94640; 94660; 94760; 99285; C9113; J1120; J1650; J1940; J2920; U0003

== ENCOUNTER 2020-09-26 13:06 | Inpatient (IN) | payer OTHER ==
[~2020-09-26 13:06] MED LIST: METHYLPREDNISOLONE 40 MG INJ IV SCH
--- OUTSIDE RECORDS SUMMARY | 2020-09-26 13:10 | XMS REPORT | Continuity of Care Document ---
:1960 Author Organization [facility] Address [address] [place] [address] Care Team Providers Name Role Phone NeelAlexandramalvinkristine WAIST PLEATER Attending Clinician Doctor Unassigned, Name Attending Clinician Unavailable KELLY Attending Clinician Unavailable KELLY Admitting Clinician Unavailable Problems Condition Condition Condition Status Onset Resolution Last Treating Co mments Source Name Details Category Date Date Treatment Clinician Date Tobacco Tobacco Disease Active [facility] [place] Hypoxemia Hypoxemia Disease Active [facility] [place] COPD COPD Disease Active [facility] exacerbati exacerbati 6-05 Pema kes - on on 00:00: Medical 00 [place] Acute Acute Disease Active [facility] hypercapni [...] Type Clinicians Facility Department ID 2020-07-12 2020[facility]07[facility]12 [facility] [id number] 11:56:24 23:59:00 Encounter [facility] Pediatric [id number] [facility] and [id number] Adult [id number] Primary 9 [facility] 2020-07-12 2020-07-12 Office Neel-Ku Tate [id number] 11:00:10 13:58:54 Visit [facility] Pediatric [id number] [facility] and [id number] Adult [id number] [facility] 2020-07-03 2020-07-03 Orders Doctor THI [id number] 00:00:00 00:00:00 Only Unassigned, VIRGILIO [id number] [facility] [id number] [id number] Results Test Description Test Time Test [...] NOT 1092) ACCURATE CRE ATININE CLEARANCE IN [place] EDICTING GLOMERULAR FILT RATION RATE. ESTIMATED GFR [...] 0-0 (BEAKER) (test code = 413) 0.00POCT-GLUCOSE [id number] 17:50:00 Test Item Value Reference Range Interpretation Comments POC-GLUCOSE METER 118 mg/dL 70-110 H TESTED AT [facility] [address] (BEAKER) (test code = KISHA [place]ab[place] 1538) [id number] POCT-GLUCOSE [id number] 11:59:00 Test Item Value Reference Range Interpretation Comments POC-GLUCOSE METER 247 mg/dL 70-110 H TESTED AT [facility] [address] (BEAKER) (test code = KISHA Pabon [place] 1538) [id number] POCT-GLUCOSE [id number] 07:54:00 Test Item Value Reference Range Interpretation Comments POC-GLUCOSE METER 141 mg/dL 70-110 H TESTED AT [facility] [address] (BEAKER) (test code = KISHA Pabon [place] 1538) [id number] CBC W/PLT COUNT & AUTO [id number] 03:45:00 Test Item Value Reference Range Interpretation [...] K/ L 0.00-0.20 (test code = 417) [id number] 03:29:00 Test Item Value Reference Range Interpretation Comments MAGNESIUM (BEAKER) 1.8 mg/dL 1.6-2.6 Specimen slightly (test code = 627) hemolyzed BASIC METABOLIC [id number] 03:29:00 Test Item Value Reference Range Interpretation [...] NOT APPLICABLE FOR DIALYSIS PATIEN TS. POCT-GLUCOSE [id number] 00:05:00 Test Item Value Reference Range Interpretation Comments POC-GLUCOSE METER 117 mg/dL 70-110 H TESTED AT [facility] [address] (BEAKER) (test code = KISHA [place] 1538) [id number] POCT-GLUCOSE [id number] 18:17:00 Test Item Value Reference Range Interpretation Comments POC-GLUCOSE METER 141 mg/dL 70-110 H TESTED AT [facility] [address] (BEAKER) (test code = KISHA Pabon [place] 1538) [id number] CREATINE KINASE (CK), TOTAL AND [id number] 15:43:00 Test Item Value Reference Range Interpretation Comments CREATINE KINASE TOTAL (BEAKER) 31 U/L 29-200 (test code = 380) CREATINE KINASE-MB (BEAKER) (test 1.3 ng/mL 0.0-6.6 code = 750) CREATINE KINASE-MB INDEX (BEAKER) 4.2 % (test code = 395) Effective 08/09/2014: CK-MB Reference Range ChangeNew: 0.0-6.6 Previous: 0.0-4.9CK-MB Reference Range:<6.7 Normal6.7-10.0 Borderline>10.0 AbnormalBLOOD GAS, [id number] 15:26:00 Test Item Value Reference Range Interpretation [...] (test code = 1819) 35.0 % POCT-GLUCOSE [id number] 11:45:00 Test Item Value Reference Range Interpretation Comments POC-GLUCOSE METER 122 mg/dL 70-110 H TESTED AT [facility] [address] (BEAKER) (test code = KISHA Pabon [place] 1538) [id number] CREATINE KINASE (CK), TOTAL AND [id number] 10:29:00 Test Item Value Reference Range Interpretation Comments CREATINE KINASE TOTAL (BEAKER) 31 U/L 29-200 (test code = 380) CREATINE KINASE-MB (BEAKER) (test 1.5 ng/mL 0.0-6.6 code = 750) CREATINE KINASE-MB INDEX (BEAKER) 4.8 % (test code = 395) Effective 08/09/2014: CK-MB Reference Range ChangeNew: 0.0-6.6 Previous: 0.0-4.9CK-MB Reference Range:<6.7 Normal6.7-10.0 Borderline>10.0 AbnormalTROPONIN [id number] 10:29:00 Test Item Value Reference Range Interpretation [...] renalfailure, acidosis, acute neurological disease, and persistent tachyarrhythmia.[id number] 10:22:00 Test Item Value Reference Range Interpretation Comments PARTIAL THROMBOPLASTIN TIME 22.5 seconds 22.5-36.0 (BEAKER) (test code = 760) PROTHROMBIN TIME/[id number] 10:21:00 Test Item Value Reference Range Interpretation Comments PROTIME (BEAKER) (test code = 12.4 seconds 11.7-14.7 759) INR (BEAKER) (test code = 370) 0.9 <=5.9 RECOMMENDED COUMADIN/WARFARIN INR THERAPY RANGESSTANDARD DOSE: 2.0 - 3.0 Includes: PROPHYLAXIS forvenous thrombosis, systemic embolization; TREATMENT for venous thrombosis and/or pulmonary embolus.HIGH RISK: Target INR is 2.5-3.5 for patients with mechanical heart valves.BLOOD GAS, [id number] 10:17:00 Test Item Value Reference Range Interpretation [...] (test code = 1819) 40.0 % PLATELET [id number] 10:13:00 Test Item Value Reference Range Interpretation Comments PLATELET COUNT (BEAKER) (test 111 K/CU MM 150-430 L code = 756)
--- OUTSIDE RECORDS SUMMARY | 2020-09-26 13:10 | XMS REPORT | Clinical Summary ---
:[address] [facility] Address [address] [place] [address] Care Team Providers Name Role Phone Unavailable [...] Not on file Results Not on fileafter 09/26/2019 Insurance Payer Benefit Plan Subscriber ID Effective Dates Phone Address Type / Group MEDICAID - [facility] [id number] 2011-Gladys soliz MEDICAID D [employer] [facility] Advance Directives For more information, please contact: [phone] Code Status Date Activated Date Inactivated Comments Full Code 02/24/2017 8:19 AM 02/26/2017 1:59 PM This code status was determined by: Patient
[2020-09-26 13:23] LABS: Arterial Blood Carboxyhemoglob 3.2 % (0-1.5); Blood Gas Oxyhemoglobin 95.5 % (94-97); Blood O2 Saturation 99.6 % (92-98.5)
[2020-09-26] MEDS ORDERED: dexAMETHasone 10 MG/ML VIAL ONE (13:34)
[2020-09-26] MEDS ORDERED: NA CHLORIDE 0.9% 1,000 ML ONE (13:35)
[2020-09-26] MEDS ORDERED: FAMOTIDINE 20 MG/2 ML VIAL IV ONE ×2 (13:35→21:59)
[2020-09-26] MEDS ORDERED: LEVALBUTEROL 1.25 MG/3 ML NEB ONE (13:35)
[2020-09-26] MEDS ORDERED: IPRATROPIUM BROM 0.5MG/2.5ML ONE ×2 (13:35→23:03)
[2020-09-26] MEDS ORDERED: Levofloxacin 750mg IV 750 MG/150 ML BAG IV ONE (13:35)
[2020-09-26 13:54] LABS: Absolute Lymphocytes (CBC) 0.7 K/uL (0.7-4.9); Basophils % 0.2 % (0-1.3); Hematocrit 39.4 % (36.0-45.0); Lymphocytes % 9.6 % (15.3-44.8); MPV 7.8 fL (7.6-11.3); RBC Red Blood Cell Count 4.42 M/uL (3.86-4.86)
--- NOTE | 2020-09-26 14:03 | RAD REPORT ---
EXAM DESCRIPTION: RAD - Chest Single View - 09/26/2020 1:48 pm CLINICAL HISTORY: Cough;Dyspnea COMPARISON: Portable September 16, 2020 TECHNIQUE: AP portable chest image was obtained 09/26/2020 1:48 pm . FINDINGS: Diffuse interstitial prominence is present without a focal mass or consolidation. Pattern is similar to comparison. Severity could mask early edema or infiltrate. Hilar regions are prominent but stable. Heart and vasculature are normal. No measurable pleural effusion and no pneumothorax. No acute bony abnormality seen. No acute aortic findings suspected. IMPRESSION: Chronic interstitial pattern is present similar to comparison. Severity of interstitial disease could mask early edema or infiltrate.
[2020-09-26 14:39] LABS: ALT/SGPT 19 U/L (12-78); AST/SGOT 14 U/L (15-37); Albumin 3.3 g/dL (3.4-5.0); Alkaline Phosphatase 108 U/L (45-117); BUN Blood Urea Nitrogen 20 mg/dL (7-18); Bilirubin Direct 0.1 mg/dL (0-0.2); Bilirubin Total 0.5 mg/dL (0.2-1.0); Glucose Level 126 mg/dL (74-106); Magnesium 2.3 mg/dL (1.8-2.4); NT PRO-BNP 496 pg/mL (<125); Sodium Level 140 mmol/L (136-145); Troponin (Emerg Dept Use Only) < 0.02 ng/mL (0.0-0.045)
[2020-09-26 14:44] LABS: Bicarbonate > 45 mmol/L (21-32)
[2020-09-26 14:51] LABS: SARS-COV-2 RT PCR NEGATIVE (NEGATIVE)
--- NOTE | 2020-09-26 15:01 | ER ---
Nurse's Notes [facility] Name: Vikki Zamudio Age: 60 yrs Sex: Female : 1960 Arrival Date: 09/26/2020 Time: 13:10 Bed 3 Private MD: Diagnosis: Hypoxemia;Respiratory failure, unspecified;Respiratory failure, unspecified with hypercapnia;Tobacco abuse counseling;Tobacco use Presentation: 09/26 13:10 Chief complaint: EMS states: Toned out for respiratory distress, O2 54% on arrival, jl7 place don high-flow O2 and O2 came up to 99%, switch to NC and O2 remained in 90s. Pt altered and smells of urine. 13:10 Coronavirus screen: Client denies travel out of the [place] in the last 14 days. jl7 difficulty breathing, Client presents with at least one sign or symptom that may indicate coronavirus-19. Standard/surgical mask placed on the client. Provider contacted for isolation considerations. Ebola Screen: No symptoms or risks identified at this time. Initial Sepsis Screen: Does the patient meet any 2 criteria? Altered Mental Status. No. Patient's initial sepsis screen is negative. Does the patient have a suspected source of infection? No. Patient's initial sepsis screen is negative. Risk Assessment: Do you want to hurt yourself or someone else? Patient reports no desire to harm self or others. Onset of symptoms is unknown. Care prior to arrival: Medication(s) given: 125mg Solu-medrol at 1251. Transition of care: patient was not received from another setting of care. 13:10 Method Of Arrival: EMS: [facility] jl7 13:10 Acuity: LIZETH 2 jl7 Triage Assessment: 13:10 General: Appears distressed, obese, unkempt, Behavior is altered, grunting. Pain: jl7 Unable to use pain scale. altered. Neuro: Level of Consciousness is awake, alert, confused, Oriented to person, place. Cardiovascular: Patient's skin is warm and dry. Respiratory: Airway is patent Respiratory effort is labored, with retractions, using tripod position, Respiratory pattern is symmetrical, tachypnea. Derm: Skin is dry, Skin is pale, Skin temperature is cool. Historical: - Allergies: 13:17 Codeine; sv - PMHx: 13:17 CHF; COPD; High Cholesterol; GERD; Hypertension; Hypothyroidism; Panic Attacks; Sleep sv Apnea; - Immunization history:: Adult Immunizations unknown. - Social history:: Smoking status: unknown. Screenin:15 Abuse screen: Denies threats or abuse. Denies injuries from another. Nutritional jl7 screening: No deficits noted. Tuberculosis screening: No symptoms or risk factors identified. Fall Risk No fall in past 12 months (0 pts). No secondary diagnosis (0 pts). IV access (20 points). Ambulatory Aid- None/Bed Rest/Nurse Assist (0 pts). Gait- Weak (10 pts.). Mental Status- Overestimates/Forgets Limitations (15 pts.). Total Resendiz Fall Scale indicates High Risk Score (45 or more points). Fall prevention measures have been instituted. Side Rails Up X 2 Placed Close to Nursing Station Frequent Obs/Assessments Occuring As available patient and family educated on Fall Prevention Program and Strategies. Assessment: 13:10 General: See triage assessment. jl7 13:15 Reassessment: Pt placed on BiPap. jl7 14:43 Reassessment: Pt removed BiPap, refusing to put mask back on, pt refusing to allow IV jl7 to be flushed with NS, Pt A\\T\\Ox3 to self, year and situation, reports she is "At the place across from the hospital." ERD at bedside, pt continues to refuse BiPap at this time. Will continue to monitor. 15:10 Reassessment: TENA, diagnostic radiologic technologist and Rajani RT able to get pt to agree to keep BiPap on at jl7 this time, still refusing vitals equipment, will continue to monitor. 16:30 Reassessment: Dr. Enriquez at bedside. jl7 16:55 Reassessment: Dr. Banks at bedside. jl7 18:00 Reassessment: pt pulled left wrist IV, bleeding controlled. jl7 Vital Signs: 13:10 BP 136 / 75; Pulse 85; Resp 33 S; Temp 98.9; Pulse Ox 80% on R/A; jl7 13:20 Pulse Ox 98% on BiPAP; jl7 13:45 Pulse 88; Resp 25 A; Pulse Ox 93% on BiPAP; jl7 14:00 jl7 16:41 Pulse 84; Resp 22; Pulse Ox 99% on BiPAP; jl7 17:25 BP 142 / 78; Pulse 92; Resp 18; Pulse Ox 100% on BiPAP; jl7 18:30 BP 141 / 80; Pulse 86; Resp 24 S; Pulse Ox 98% on BiPAP; jl7 14:00 Pt refusing vitals equipment at this time, able to get pt to leave pulse ox on jl7 ED Course: 13:10 Patient arrived in ED. chato 13:10 Po Toure MD is Attending Physician. chato 13:10 Maintain EMS IV. Dressing intact. Good blood return noted. Site clean \\T\\ dry. Gauge \\T\\ sv site: 20G R AC. 13:10 Patient has correct armband on for positive identification. Bed in low position. Call sv light in reach. Side rails up X2. cooking teacher on. Pulse ox on. NIBP on. 13:10 Arm band placed on right wrist. jl7 13:15 Inserted saline lock: 20 gauge in left wrist, using aseptic technique. Blood collected. jl7 13:22 Second set of blood cultures drawn by ED staff. sv 13:30 Clinton Love RN is Primary Nurse. jl7 13:40 Triage completed. jl7 13:45 Lab(s) recollected, by me, sent to lab. sv 13:50 XRAY Chest (1 view) In Process Unspecified. EDMS 13:50 BIPAP Sent. sv 13:50 COVID swab sent to lab. jl7 14:59 Chris Enriquez MD is Hospitalizing Provider. chato 16:36 Gurinder Banks DO is Hospitalizing Provider. chato 19:00 No provider procedures requiring assistance completed. Patient admitted, IV remains in jl7 place. intact, No redness/swelling at site. Administered Medications: 13:34 Drug: Decadron - Dexamethasone 10 mg Route: IVP; Site: left wrist; sv 14:10 Follow up: Response: No adverse reaction jl7 13:34 Drug: Xopenex 3.75 mg Route: Inhalation; sv 14:00 Follow up: Response: No adverse reaction jl7 13:34 Drug: AtroVENT Aerosol 0.5 mg Route: Inhalation; sv 14:00 Follow up: Response: No adverse reaction jl7 13:35 Drug: NS 0.9% 1000 ml Route: IV; Rate: 125 ml/hr; Site: left wrist; sv 17:27 Follow up: IV Status: Infusion continued upon admission jl7 13:35 Drug: levofloxacin 750 mg Volume: 150 ml; Route: IVPB; Infused Over: 90 mins; Site: sv left wrist; 15:05 Follow up: Response: No adverse reaction; IV Status: Completed infusion jl7 13:35 Drug: Pepcid 20 mg Route: IVP; Site: left wrist; sv 14:00 Follow up: Response: No adverse reaction jl7 Outcome: 15:00 Decision to Hospitalize by Provider. chato 19:00 Admitted to ICU accompanied by nurse, accompanied by tech, via stretcher, room 11, with jl7 oxygen, with chart. 19:00 Condition: stable 19:00 Discharge instructions given to patient, Instructed on the need for admit, Demonstrated understanding of instructions. 19:16 Patient left the ED. sg Signatures: Dispatcher [employer] Reena Fry RN RN sv Gay, Steven, RN RN sg Anderson, Corey, MD MD cha Leal, Jahala, RN RN jl7 Corrections: (The following items were deleted from the chart) 16:38 13:10 BP 136 / 75; Pulse 85bpm; Resp 33bpm; Spontaneous; Pulse Ox 80% RA; jl7 jl7
--- NOTE | 2020-09-26 15:01 | EDPHYS ---
Physician Documentation [facility] Name: Vikki Zamudio Age: 60 yrs Sex: Female : 1960 Arrival Date: 09/26/2020 Time: 13:10 Bed 3 Private MD: ED Physician Po Toure HPI: 09/26 14:41 This 60 yrs old Female presents to ER via EMS with complaints of Shortness Of chato Breath. 14:41 The patient has shortness of breath at rest, with light activity. Onset: The chato symptoms/episode began/occurred 2 day(s) ago. Duration: The symptoms are continuous, and are steadily getting worse. The patient's shortness of breath is aggravated by coughing, light activity, supine position. Associated signs and symptoms: The patient has no apparent associated signs or symptoms. Severity of symptoms: At their worst the symptoms were mild in the emergency department the symptoms are unchanged. The patient has experienced similar episodes in the past, multiple times. copd, sats at home 54 %, alert and oriented. Historical: - Allergies: 13:17 Codeine; sv - PMHx: 13:17 CHF; COPD; High Cholesterol; GERD; Hypertension; Hypothyroidism; Panic Attacks; Sleep sv Apnea; - Immunization history:: Adult Immunizations unknown. - Social history:: Smoking status: unknown. ROS: 14:48 Constitutional: Negative for fever, chills, and weight loss, Eyes: Negative for injury, chato pain, redness, and discharge, ENT: Negative for injury, pain, and discharge, Neck: Negative for injury, pain, and swelling, Cardiovascular: Negative for chest pain, palpitations, and edema, Abdomen/GI: Negative for abdominal pain, nausea, vomiting, diarrhea, and constipation, Back: Negative for injury and pain, : Negative for injury, bleeding, discharge, and swelling, MS/Extremity: Negative for injury and deformity, Skin: Negative for injury, rash, and discoloration, Neuro: Negative for headache, weakness, numbness, tingling, and seizure, Psych: Negative for depression, anxiety, suicide ideation, homicidal ideation, and hallucinations, Allergy/Immunology: Negative for hives, rash, and allergies, Endocrine: Negative for neck swelling, polydipsia, polyuria, polyphagia, and marked weight changes, Hematologic/Lymphatic: Negative for swollen nodes, abnormal bleeding, and unusual bruising. 14:48 Respiratory: Positive for cough, shortness of breath, at rest. wheezing, expiratory. 14:48 MS/extremity: Negative for acute changes. Exam: 14:48 Constitutional: This is a well developed, well nourished patient who is awake, alert, chato and in no acute distress. Head/Face: Normocephalic, atraumatic. Eyes: Pupils equal round and reactive to light, extra-ocular motions intact. Lids and lashes normal. Conjunctiva and sclera are non-icteric and not injected. Cornea within normal limits. Periorbital areas with no swelling, redness, or edema. ENT: Nares patent. No nasal discharge, no septal abnormalities noted. Tympanic membranes are normal and external auditory canals are clear. Oropharynx with no redness, swelling, or masses, exudates, or evidence of obstruction, uvula midline. Mucous membranes moist. Neck: Trachea midline, no thyromegaly or masses palpated, and no cervical lymphadenopathy. Supple, full range of motion without nuchal rigidity, or vertebral point tenderness. No Meningismus. Chest/axilla: Normal chest wall appearance and motion. Nontender with no deformity. No lesions are appreciated. Cardiovascular: Regular rate and rhythm with a normal S1 and S2. No gallops, murmurs, or rubs. Normal PMI, no JVD. No pulse deficits. Abdomen/GI: Soft, non-tender, with normal bowel sounds. No distension or tympany. No guarding or rebound. No evidence of tenderness throughout. Back: No spinal tenderness. No costovertebral tenderness. Full range of motion. Female : Normal external genitalia. Skin: Warm, dry with normal turgor. Normal color with no rashes, no lesions, and no evidence of cellulitis. MS/ Extremity: Pulses equal, no cyanosis. Neurovascular intact. Full, normal range of motion. Neuro: Awake and alert, GCS 15, oriented to person, place, time, and situation. Cranial nerves II-XII grossly intact. Motor strength 5/5 in all extremities. Sensory grossly intact. Cerebellar exam normal. Normal gait. Psych: Awake, alert, with orientation to person, place and time. Behavior, mood, and affect are within normal limits. 14:48 Respiratory: mild respiratory distress is noted, Respirations: labored breathing, that is mild, Breath sounds: bronchial sounds, that are mild, are scattered, rhonchi, that are mild, stridor, is not appreciated, + upper airway congestion. wheezing: expiratory 14:48 Musculoskeletal/extremity: Circulation is intact in all extremities. Sensation intact. Compartment Syndrome exam of affected extremity: is normal. DVT Exam: No signs of deep vein thrombosis. no pain, no swelling, no tenderness, negative Homans' sign noted on exam, no appreciated bluish discoloration, no erythema, no increased warmth. 14:54 ECG was reviewed by the Attending Physician. [facility] Vital Signs: 13:10 BP 136 / 75; Pulse 85; Resp 33 S; Temp 98.9; Pulse Ox 80% on R/A; jl7 13:20 Pulse Ox 98% on BiPAP; jl7 13:45 Pulse 88; Resp 25 A; Pulse Ox 93% on BiPAP; jl7 14:00 jl7 16:41 Pulse 84; Resp 22; Pulse Ox 99% on BiPAP; jl7 17:25 BP 142 / 78; Pulse 92; Resp 18; Pulse Ox 100% on BiPAP; jl7 18:30 BP 141 / 80; Pulse 86; Resp 24 S; Pulse Ox 98% on BiPAP; jl7 14:00 Pt refusing vitals equipment at this time, able to get pt to leave pulse ox on jl7 MDM: 13:10 Patient medically screened. chato 14:50 Differential diagnosis: Chronic Obstructive Pulmonary Disease Pulmonary Embolism chato reactive airway disease. Antibiotic administration: Levaquin given. The patient's Wells Deep Vein Thrombosis Score was calculated as follows: Total Score: 0-2 Pts- Low Risk. The patient's pulmonary embolism risk score was calculated as follows: Total Score: 0-2 points. This patient was found to be at low risk for a pulmonary embolism by using the Well's assessment criteria. Immunization status: Influenza vaccine: Data reviewed: vital signs, nurses notes, lab test result(s), EKG, radiologic studies, plain films. Data interpreted: band presser: rate is 85 beats/min, rhythm is regular, Pulse oximetry: on room air is 54 %. Test interpretation: by ED physician or midlevel provider: ECG, plain radiologic studies. Counseling: I had a detailed discussion with the patient and/or guardian regarding: the historical points, exam findings, and any diagnostic results supporting the discharge/admit diagnosis, lab results, the need for further work-up and treatment in the hospital. 09/26 13:12 Order name: Basic Metabolic Panel; Complete Time: 14:58 chato 09/26 13:12 Order name: CBC with Diff; Complete Time: 14:32 chato 09/26 13:12 Order name: LFT's; Complete Time: 14:58 chato 09/26 13:12 Order name: Magnesium; Complete Time: 14:58 chato 09/26 13:12 Order name: NT PRO-BNP; Complete Time: 14:58 chato 09/26 13:12 Order name: PT-INR; Complete Time: 14:32 chato 09/26 13:12 Order name: Troponin (emerg Dept Use Only); Complete Time: 14:58 chato 09/26 13:12 Order name: Blood Culture Adult (2) chato 09/26 13:12 Order name: Flu chato 09/26 13:13 Order name: ABG; Complete Time: 14:32 chato 09/26 13:16 Order name: Lactate; Complete Time: 14:32 sv 09/26 13:27 Order name: Glucose, Ancillary Testing; Complete Time: 14:32 EDMS 09/26 14:51 Order name: COVID-19/FLU A+B; Complete Time: 14:58 EDMS 09/26 13:12 Order name: XRAY Chest (1 view); Complete Time: 14:32 chato 09/26 13:12 Order name: EKG; Complete Time: 13:13 chato 09/26 13:12 Order name: Cardiac monitoring; Complete Time: 13:35 chato 09/26 13:12 Order name: EKG - Nurse/Tech; Complete Time: 13:51 chato 09/26 13:12 Order name: IV Saline Lock; Complete Time: 13:35 chato 09/26 13:12 Order name: Labs collected and sent; Complete Time: 13:35 chato 09/26 13:12 Order name: O2 Per Protocol; Complete Time: 13:35 chato 09/26 13:12 Order name: O2 Sat Monitoring; Complete Time: 13:35 chato 09/26 13:12 Order name: BIPAP chato 09/26 15:21 Order name: CONS Physician Consult EDMS 09/26 13:31 Order name: Labs - recollect needed: recollect c7,liver,trop,blue top and cbc; Complete bd Time: 13:50 EC:54 Rate is 79 beats/min. Rhythm is regular. QRS [place] is Normal. NV interval is normal. QRS chato interval is normal. QT interval is normal. No Q waves. T waves are Normal. ST Segment is elevated in leads I, II, III, aVL, aVF, aVR, V1, V2, V3, V4, V5, V6. Clinical impression: NSR w/ Non-specific ST/T Changes. Interpreted by me. Reviewed by me. Administered Medications: 13:34 Drug: Decadron - Dexamethasone 10 mg Route: IVP; Site: left wrist; sv 14:10 Follow up: Response: No adverse reaction jl7 13:34 Drug: Xopenex 3.75 mg Route: Inhalation; sv 14:00 Follow up: Response: No adverse reaction jl7 13:34 Drug: AtroVENT Aerosol 0.5 mg Route: Inhalation; sv 14:00 Follow up: Response: No adverse reaction 7 13:35 Drug: NS 0.9% 1000 ml Route: IV; Rate: 125 ml/hr; Site: left wrist; sv 17:27 Follow up: IV Status: Infusion continued upon admission jl7 13:35 Drug: levofloxacin 750 mg Volume: 150 ml; Route: IVPB; Infused Over: 90 mins; Site: sv left wrist; 15:05 Follow up: Response: No adverse reaction; IV Status: Completed infusion jl7 13:35 Drug: Pepcid 20 mg Route: IVP; Site: left wrist; sv 14:00 Follow up: Response: No adverse reaction jl Disposition: 09/26/20 15:00 Hospitalization ordered by Gurinder Banks for Inpatient Admission. Preliminary diagnosis are Hypoxemia, Respiratory failure, unspecified, Respiratory failure, unspecified with hypercapnia, Tobacco abuse counseling, Tobacco use. - Bed requested for Intensive Care Unit. - Status is Inpatient Admission. sg - Condition is Fair. - Problem is new. - Symptoms have improved. Signatures: Dispatcher [employer] EDMS Maryanne Guerra Stephanie, RN Andre Dowell RN RN sg Anderson, Corey, MD MD cha Leal, Jahala, RN RN jl7 Corrections: (The following items were deleted from the chart) 14:01 13:13 CORONAVIRUS+MR.LAB.BRZ ordered. EDMS EDMS 16:30 15:00 Hospitalization Ordered by Chris Enriquez MD for Inpatient Admission. Preliminary bd diagnosis is Hypoxemia; Respiratory failure, unspecified; Respiratory failure, unspecified with hypercapnia; Tobacco abuse counseling; Tobacco use. Bed requested for Telemetry/MedSurg (Inpatient). Status is Inpatient Admission. Condition is Fair. Problem is new. Symptoms have improved. chato 16:36 16:30 09/26/2020 15:00 Hospitalization Ordered by Chris Enriquez MD for Inpatient chato Admission. Preliminary diagnosis is Hypoxemia; Respiratory failure, unspecified; Respiratory failure, unspecified with hypercapnia; Tobacco abuse counseling; Tobacco use. Bed requested for Telemetry/MedSurg (Inpatient). Status is Inpatient Admission. Condition is Fair. Problem is new. Symptoms have improved. bd 17:00 16:36 09/26/2020 15:00 Hospitalization Ordered by Gurinder Banks DO for Inpatient bd Admission. Preliminary diagnosis is Hypoxemia; Respiratory failure, unspecified; Respiratory failure, unspecified with hypercapnia; Tobacco abuse counseling; Tobacco use. Bed requested for Telemetry/MedSurg (Inpatient). Status is Inpatient Admission. Condition is Fair. Problem is new. Symptoms have improved. chato 19:00 17:00 09/26/2020 15:00 Hospitalization Ordered by Gurinder Banks DO for Inpatient bd Admission. Preliminary diagnosis is Hypoxemia; Respiratory failure, unspecified; Respiratory failure, unspecified with hypercapnia; Tobacco abuse counseling; Tobacco use. Bed requested for Intensive Care Unit. Status is Inpatient Admission. Condition is Fair. Problem is new. Symptoms have improved. bd 19:16 19:00 09/26/2020 15:00 Hospitalization Ordered by Gurinder Banks DO for Inpatient sg Admission. Preliminary diagnosis is Hypoxemia; Respiratory failure, unspecified; Respiratory failure, unspecified with hypercapnia; Tobacco abuse counseling; Tobacco use. Bed requested for Intensive Care Unit. Status is Inpatient Admission. Condition is Fair. Problem is new. Symptoms have improved. bd
--- NOTE | 2020-09-26 17:23 | P.HP ---
Certification for Inpatient Patient admitted to: Inpatient With expected LOS: >2 Midnights Patient will require the following post-hospital care: Other (Will need NIV set up at home) Practitioner: I am a practitioner with admitting privileges, knowledge of patient current condition, hospital course, and medical plan of care. Services: Services provided to patient in accordance with Admission requirements found in Title 42 Section 412.3 of the Code of Federal Regulations Patient History Date of Service: 09/26/20 Primary Care Provider: Dr. Enriquez; Pulmonary-Dr. Do Reason for admission: Shortness of breath History of Present Illness: 60-year-old female with history of COPD. Patient presented with increasing shortness of breath. Patient was brought in by EMS due to shortness of breath. Patient reports of cough is well. No significant fever noted. Patient has extensive COPD. She was recently hospitalized for COPD exacerbation. Patient was hypoxic at home. She denies nausea, vomiting. She was brought in to the ER for further evaluation. In the ER patient was evaluated. Patient was hypoxic with room-air saturations around 80%. ABG showed pH is 7.22 with a bicarb of 138. Troponin negative. COVID negative. Influenza test negative. White count 7.4, hemoglobin 12.3. Platelet count 152. Sodium 140, potassium 5.0. BN of 20, creatinine 0.7 with a GFR of 80. Glucose 126. Patient was placed on BiPAP. Patient shortness of breath improved. Patient stable at this time. Allergies codeine [Codeine] Adverse Reaction (Mild, Verified 09/16/20 21:07) itch Home medications list reviewed: Yes Home Medications: Albuterol Sulfate [Proair Hfa] 8.5 gm IH QID PRN 10/22/15 Atorvastatin Calcium 20 mg PO BEDTIME 10/10/17 Roflumilast [Daliresp*] 500 mcg PO DAILY 10/10/17 Umeclidinium Brm/Vilanterol Tr [Anoro Ellipta 62.5-25 Mcg INH] 1 puff IH DAILY 10/10/17 Furosemide [Lasix*] 20 mg PO DAILY 03/16/19 Gabapentin 300 mg PO BID 09/16/20 carvediloL [Carvedilol] 6.25 mg PO DAILY 09/16/20 clonazePAM [Clonazepam] 0.5 mg PO DAILY PRN 09/16/20 predniSONE [Deltasone*] 10 mg PO BID #20 tab 09/17/20 - Past Medical/Surgical History Diabetic: No -: Severe COPD, oxygen/steroid dependent,Pulmonary-Dr. Do -: Mild pulmonary hypertension -: Hypothyroidism -: Bipolar disorder -: Hypertension -: Chronic low back pain -: Obstructive sleep apnea -: Tobacco abuse -: HLD -: GERD -: Appendectomy -: Psychosocial/ Personal History: She lives with a partner. She has 1 child. She is currently disabled. - Family History Father -: Heart disease, Hypertension, Diabetes Notes: from CHF Mother -: Heart disease, Hypertension, Diabetes Notes: from CHF Brother -: Diabetes Sister -: Heart disease, Diabetes Notes: from CHF - Social History Smoking Status: Heavy Tobacco smoker (>10 cigarettes/day) Counseled patient to stop smoking for: less than 10 minutes Smoking therapy provided: Yes Patient receptive to therapy: No Alcohol use: Yes CD- Drugs: No Caffeine use: Yes Place of Residence: Home Review of Systems General: Weakness, As per HPI Eyes: Unremarkable ENT: Unremarkable Respiratory: Cough, Shortness of Breath, SOB with Excertion, As per HPI Cardiovascular: Unremarkable Gastrointestinal: Unremarkable Genitourinary: Unremarkable Musculoskeletal: Unremarkable Integumentary: Unremarkable Neurological: Unremarkable Lymphatics: Unremarkable Physical Examination - Physical Exam General: Alert, In no apparent distress, Oriented x2, Cooperative, Other (Patient on BiPAP) HEENT: Atraumatic Neck: Supple Respiratory: Other (Decreased breath sounds bilateral) Cardiovascular: Normal pulses, Regular rate/rhythm Gastrointestinal: Normal bowel sounds, Other (Morbid obesity) Musculoskeletal: No erythema, No tenderness, No warmth Integumentary: No tenderness/swelling, No erythema, No warmth, No cyanosis Neurological: Normal speech, Normal strength at 5/5 x4 extr, Normal tone, Normal affect - Studies Laboratory Data (last 24 hrs) 09/26/20 13:40: PT 11.8, INR 1.00 09/26/20 13:40: WBC 7.4 D, Hgb 12.3, Hct 39.4, Plt Count 182 D 09/26/20 13:40: Sodium 140, Potassium 5.0, BUN 20 H, Creatinine 0.74, Glucose 126 H, Magnesium 2.3, Total Bilirubin 0.5, AST 14 L, ALT 19, Alkaline Phosphatase 108 Assessment and Plan - Plan Impression: Dyspnea secondary to acute on chronic respiratory failure with hypoxia and hypercapnia complicated with COPD exacerbation with advanced disease Bipolar disorder Hypertension Obstructive sleep apnea with CPAP at home Morbid obesity Plan: Patient will be admitted to ICU for close monitoring. Will continue with BiPAP. Recheck ABG in 1 hr. Case discussed with pulmonology. Patient recently hospitalized and seen by pulmonology. Patient was hypercapnic at that time. She was discharged home with oxygen. CO2 usually runs around 80. Will continue with IV Solu-Medrol. Will wean off BiPAP. Patient on antibiotic therapy to cover for possible infection. Pulmonology plans for non invasive ventilator for patient at home at discharge. Social work to be consulted to help with this. Will need to obtain home medications. Will provide DVT prophylaxis. Discharge Plan: Home Plan to discharge in: 72 Hours - Advance Directives Does patient have a Living Will: No Does patient have a Durable POA for Healthcare: No - Code Status/Comfort Care Code Status Assessed: Yes (Patient is full code) Time Spent Managing Pts Care (In Minutes): 55
[2020-09-26] MEDS ORDERED: ACETAMINOPHEN 500 MG TAB PO PRN (20:00)
[2020-09-26] MEDS ORDERED: ONDANSETRON 4 MG/2 ML VIAL IV PRN (20:00)
[2020-09-26] MEDS: LORazepam 2 MG/ML VIAL IV PRN (20:55)
[2020-09-26] MEDS ORDERED: LORazepam 2 MG/ML VIAL ONE (20:59)
[2020-09-26] MEDS: FAMOTIDINE 20 MG/2 ML VIAL IV SCH (21:47)
[2020-09-26] MEDS: IPRATROPIUM BROM 0.5MG/2.5ML NEB PRN (23:00)
[2020-09-26] MEDS: ARFORMOTEROL TARTRATE 15 MCG/2 ML VIAL.NEB NEB SCH (23:00)
[2020-09-26] MEDS: ALBUTEROL 2.5 MG/3 ML NEB SOL NEB PRN (23:00)
[2020-09-26] MEDS ORDERED: ALBUTEROL 2.5 MG/3 ML NEB SOL ONE (23:03)
[2020-09-26] MEDS ORDERED: ARFORMOTEROL TARTRATE 15 MCG/2 ML VIAL.NEB ONE (23:03)
[2020-09-27] MEDS: LORazepam 2 MG/ML VIAL IV PRN ×2 (03:41→09:08)
[2020-09-27] MEDS ORDERED: LORazepam 2 MG/ML VIAL ONE ×2 (03:55→09:22)
[2020-09-27 05:28] LABS: Absolute Lymphocytes (CBC) 0.8 K/uL (0.7-4.9); Basophils % 0.3 % (0-1.3); Hematocrit 36.7 % (36.0-45.0); Lymphocytes % 17.3 % (15.3-44.8); MPV 7.9 fL (7.6-11.3)
[2020-09-27 05:45] LABS: Blood Gas Oxyhemoglobin 86.6 % (94-97); Blood O2 Saturation 89.2 % (92-98.5)
[2020-09-27 05:59] LABS: Anisocytosis 1+; Basophilic Stippling 1+; Blood Morphology Comment NOTED (NOT SEEN); Platelet Estimate ADEQ; Target Cells 1+
[2020-09-27 06:16] LABS: BUN Blood Urea Nitrogen 24 mg/dL (7-18); Bicarbonate > 45 mmol/L (21-32); Glucose Level 109 mg/dL (74-106); Magnesium 2.2 mg/dL (1.8-2.4); NT PRO-BNP 180 pg/mL (<125); Potassium 4.5 mmol/L (3.5-5.1); Sodium Level 140 mmol/L (136-145)
--- NOTE | 2020-09-27 07:35 | RAD REPORT ---
EXAM DESCRIPTION: RAD - Chest Single View - 09/27/2020 6:36 am CLINICAL HISTORY: Chest Pain COMPARISON: Portable September 26 TECHNIQUE: AP portable chest image was obtained 09/27/2020 6:36 am . FINDINGS: No new mass or consolidation. Vasculature and lung markings are accentuated by a more shal low inspiratory effort. Heart size is stable. Significant failure or volume overload doubtful. No stephane surable pleural effusion and no pneumothorax. No acute bony abnormality seen. No acute aortic finding s suspected. IMPRESSION: No new mass or consolidation. Low lung volumes accentuate vasculature and lung markings. No significant change from comparison.
[2020-09-27] MEDS: ARFORMOTEROL TARTRATE 15 MCG/2 ML VIAL.NEB NEB SCH ×2 (08:25→20:00)
[2020-09-27] MEDS: IPRATROPIUM BROM 0.5MG/2.5ML NEB PRN (08:25)
[2020-09-27] MEDS ORDERED: ALBUTEROL 2.5 MG/3 ML NEB SOL ONE ×2 (08:25→13:23)
[2020-09-27] MEDS: ALBUTEROL 2.5 MG/3 ML NEB SOL NEB PRN ×2 (08:25→13:15)
[2020-09-27] MEDS ORDERED: IPRATROPIUM BROM 0.5MG/2.5ML ONE ×3 (08:26→20:49)
[2020-09-27] MEDS: NACHLORIDE 0.45% 1,000 ML IV SCH (08:37)
[2020-09-27] MEDS: FAMOTIDINE 20 MG/2 ML VIAL IV SCH ×2 (08:38→19:48)
[2020-09-27] MEDS: ENOXAPARIN 40 MG/0.4 ML SQ SCH (08:38)
[2020-09-27] MEDS: METHYLPREDNISOLONE 40 MG INJ IV SCH ×2 (08:38→17:34)
[2020-09-27] MEDS ORDERED: METHYLPREDNISOLONE 40 MG INJ ONE ×2 (08:49→17:49)
[2020-09-27] MEDS ORDERED: ASPIRIN EC 81 MG TAB PO ONE (08:49)
[2020-09-27] MEDS ORDERED: NACHLORIDE 0.45% 1,000 ML IV ONE (08:50)
[2020-09-27] MEDS ORDERED: FAMOTIDINE 20 MG/2 ML VIAL IV ONE ×2 (08:50→20:00)
[2020-09-27] MEDS ORDERED: ENOXAPARIN 40 MG/0.4 ML SQ ONE (08:50)
[2020-09-27] MEDS: ASPIRIN EC 81 MG TAB PO SCH (08:53)
[2020-09-27] MEDS ORDERED: ACETAZOLAMIDE 500 MG IV IV SCH (09:00)
[2020-09-27] MEDS ORDERED: clonazePAM 0.5 MG TAB PO PRN (09:55)
--- NOTE | 2020-09-27 09:55 | P.PN ---
Subjective Date of Service: 09/27/20 Primary Care Provider: Dr. Enriquez; Pulmonary-Dr. Do Chief Complaint: Shortness of breath Subjective: Improving, Other (Patient stable on BiPAP.) Physical Examination - Vital Signs Temperature: 99.1 F Blood Pressure: 141/91 Pulse: 77 Respirations: 24 Pulse Ox (%): 90 - Physical Exam General: Alert, In no apparent distress, Cooperative HEENT: Atraumatic Neck: Supple Respiratory: Expiratory wheezes Cardiovascular: Normal pulses, Regular rate/rhythm Gastrointestinal: Normal bowel sounds, No masses, No rebound, No guarding Neurological: Normal speech, Normal strength at 5/5 x4 extr, Normal tone, Normal affect - Studies Laboratory Data (last 24 hrs) 09/26/20 13:40: PT 11.8, INR 1.00 09/26/20 13:40: WBC 7.4 D, Hgb 12.3, Hct 39.4, Plt Count 182 D 09/26/20 13:40: Sodium 140, Potassium 5.0, BUN 20 H, Creatinine 0.74, Glucose 126 H, Magnesium 2.3, Total Bilirubin 0.5, AST 14 L, ALT 19, Alkaline Phosphatase 108 Medications List Reviewed: Yes Assessment & Plan Discharge Plan: Home Plan to discharge in: 48 Hours Physician Review Additional Text: Impression: Dyspnea secondary to acute on chronic respiratory failure with hypoxia and hypercapnia complicated with COPD exacerbation with advanced disease Bipolar disorder Hypertension Obstructive sleep apnea with CPAP at home Morbid obesity Plan: Patient remains in ICU. Continue BiPAP. Will wean off. Case discussed with pulmonology. Patient will need non invasive ventilator. CO2 improved. Continue IV Solu-Medrol. Continue medication for COPD. Patient on DVT prophylaxis. Will need to obtain and restart home medications for hypertension and bipolar disorder. Will need to assess her needs at home. Patient may require home health and physical therapy at discharge. Will discuss further with pulmonology inpatient. Time Spent Managing Pts Care (In Minutes): 55
--- NOTE | 2020-09-27 12:53 | P.CNS ---
Date of Consult: 09/27/20 Primary Care Provider: Dr. Enriquez; Pulmonary-Dr. Do Chief Complaint: Respiratory failure History of Present Illness: Patient is 60 years of age with a history of terminal COPD was recently here discharge home this found to be hypoxic a gone at home admitted with hypoxic hypercapnic respiratory failure elevated bicarbonate Titus she is unresponsive on the BiPAP Allergies codeine [Codeine] Adverse Reaction (Mild, Verified 09/16/20 21:07) itch Home Medications: Albuterol Sulfate [Proair Hfa] 8.5 gm IH QID PRN 10/22/15 Atorvastatin Calcium 20 mg PO BEDTIME 10/10/17 Roflumilast [Daliresp*] 500 mcg PO DAILY 10/10/17 Umeclidinium Brm/Vilanterol Tr [Anoro Ellipta 62.5-25 Mcg INH] 1 puff IH DAILY 10/10/17 Furosemide [Lasix*] 20 mg PO DAILY 03/16/19 Gabapentin 300 mg PO BID 09/16/20 carvediloL [Carvedilol] 6.25 mg PO DAILY 09/16/20 clonazePAM [Clonazepam] 0.5 mg PO DAILY PRN 09/16/20 predniSONE [Deltasone*] 10 mg PO BID #20 tab 09/17/20 - Past Medical/Surgical History Diabetic: No -: Severe COPD, oxygen/steroid dependent,Pulmonary-Dr. Do -: Mild pulmonary hypertension -: Hypothyroidism -: Bipolar disorder -: Hypertension -: Chronic low back pain -: Obstructive sleep apnea -: Tobacco abuse -: HLD -: GERD -: Appendectomy -: Psychosocial/ Personal History: She lives with a partner. She has 1 child. She is currently disabled. - Family History Father Medical History: Heart disease, Hypertension, Diabetes Notes: from CHF Mother Medical History: Heart disease, Hypertension, Diabetes Notes: from CHF Brother Medical History: Diabetes Sister Medical History: Heart disease, Diabetes Notes: from CHF - Social History Smoking Status: Unknown if ever smoked Alcohol use: Yes CD- Drugs: No Caffeine use: Yes Place of Residence: Home Review of Systems is unable to be obtained Physical Examination Temp Pulse Resp BP Pulse Ox 99.1 F 77 24 H 141/91 H 90 L 09/27/20 09:55 09/27/20 09:55 09/27/20 09:55 09/27/20 09:55 09/27/20 09:55 General: Unresponsive Respiratory: Clear to auscultation bilaterally, Diminished Cardiovascular: Edema Gastrointestinal: Normal bowel sounds, Soft and benign Musculoskeletal: No swelling, No contractures Laboratory Data (last 24 hrs) 09/26/20 13:40: PT 11.8, INR 1.00 09/26/20 13:40: WBC 7.4 D, Hgb 12.3, Hct 39.4, Plt Count 182 D 09/26/20 13:40: Sodium 140, Potassium 5.0, BUN 20 H, Creatinine 0.74, Glucose 126 H, Magnesium 2.3, Total Bilirubin 0.5, AST 14 L, ALT 19, Alkaline Phosphatase 108 - Problems (1) Acute and chronic respiratory failure ([id number]) Onset Date: 03/05/17 Current Visit: No Status: Acute Plan: Patient is 60 years of age admitted with acute on chronic respiratory failure hypercapnia bicarbonate is significantly elevated Allen due to his CO2 retention PO2 was 138 currently on BiPAP and sent on 88-90% at [facility] IV fluids Allen has underlying contraction alkalosis doubt sepsis continue with IV fluids Dc antibiotics tsh on previous admission was normal patient has chronic respiratory failure patient has chronic respiratory failure secondary to COPD and needs noninvasive positive pressure ventilation to prevent hospital readmission patient will benefit from a trilogy volume ventilator for nocturnal and daytime use as needed the reduce the risk of hospitalization home BiPAP is insufficient due to severity of the condition Qualifiers: Respiratory failure complication: hypoxia and hypercapnia Qualified Code(s): J96.21 - Acute and chronic respiratory failure with hypoxia; J96.22 - Acute and chronic respiratory failure with hypercapnia
[2020-09-27] MEDS ORDERED: Levofloxacin 750mg IV 750 MG/150 ML BAG IV SCH (13:00)
[2020-09-27] MEDS: IPRATROPIUM BROM 0.5MG/2.5ML NEB SCH ×2 (13:15→20:00)
[2020-09-27] MEDS ORDERED: VANCOMYCIN 2 GM in NA CHLORIDE 0.9% 500 ML IVPB SCH (15:00)
--- NOTE | 2020-09-27 17:33 | EKG ---
Test Date: 2020-09-26 Test Time: 13:37:08 Chart Reader: TENA MEASUREMENT RESULTS: Intervals: Rate: 79 GA: 154 QRSD: 72 QT: 374 QTc: 428 [place]: P: 69 GA: 154 QRS: 69 T: 74 INTERPRETIVE STATEMENTS: Age and gender specific ECG analysis Sinus rhythm with premature supraventricular complexes ST elevation, consider inferior injury or acute infarct ACUTE MA Abnormal ECG Compared to ECG 09/16/2020 01:17:36 Atrial premature complex(es) now present ST (T wave) deviation now present Myocardial infarct finding now present Electronically Signed On 09-27-20 17:31:46 SQL DATABASE PROGRAMMER by Selvin Mar
[2020-09-27] MEDS: GABAPENTIN 300 MG CAP PO SCH (19:46)
[2020-09-27] MEDS: ATORVASTATIN 20 MG TAB PO SCH (19:46)
[2020-09-27] MEDS ORDERED: GABAPENTIN 300 MG CAP ONE (19:59)
[2020-09-27] MEDS ORDERED: ATORVASTATIN 20 MG TAB ONE (20:00)
[2020-09-28] MEDS: IPRATROPIUM BROM 0.5MG/2.5ML NEB SCH ×4 (01:10→20:40)
[2020-09-28] MEDS ORDERED: NACHLORIDE 0.45% 1,000 ML IV ONE (02:43)
[2020-09-28] MEDS: NACHLORIDE 0.45% 1,000 ML IV SCH (03:02)
[2020-09-28] MEDS: METHYLPREDNISOLONE 40 MG INJ IV SCH (03:02)
[2020-09-28] MEDS ORDERED: METHYLPREDNISOLONE 40 MG INJ ONE (03:15)
[2020-09-28 05:24] LABS: Potassium 4.5 mmol/L (3.5-5.1)
[2020-09-28] MEDS: carvediloL 6.25 MG TAB PO SCH (08:37)
[2020-09-28] MEDS: levoFLOXacin 500 MG TAB PO SCH (08:37)
[2020-09-28] MEDS: predniSONE 20 MG TAB PO SCH ×2 (08:38→21:53)
[2020-09-28] MEDS: ENOXAPARIN 40 MG/0.4 ML SQ SCH (08:38)
[2020-09-28] MEDS: FLUTICASONE 50MCG NASAL SPRAY NAS SCH (08:38)
[2020-09-28] MEDS: FAMOTIDINE 20 MG/2 ML VIAL IV SCH (08:38)
[2020-09-28] MEDS: ASPIRIN EC 81 MG TAB PO SCH (08:38)
[2020-09-28] MEDS: GABAPENTIN 300 MG CAP PO SCH ×2 (08:38→21:53)
[2020-09-28] MEDS ORDERED: GABAPENTIN 300 MG CAP ONE (08:48)
[2020-09-28] MEDS ORDERED: carvediloL 6.25 MG TAB ONE (08:48)
[2020-09-28] MEDS ORDERED: predniSONE 20 MG TAB ONE (08:49)
[2020-09-28] MEDS ORDERED: ENOXAPARIN 40 MG/0.4 ML SQ ONE (08:49)
[2020-09-28] MEDS ORDERED: ASPIRIN EC 81 MG TAB PO ONE (08:49)
[2020-09-28] MEDS ORDERED: levoFLOXacin 500 MG TAB ONE (08:49)
[2020-09-28] MEDS ORDERED: FAMOTIDINE 20 MG/2 ML VIAL IV ONE (08:50)
[2020-09-28] MEDS ORDERED: ALBUTEROL 2.5 MG/3 ML NEB SOL ONE (08:53)
[2020-09-28] MEDS ORDERED: IPRATROPIUM BROM 0.5MG/2.5ML ONE (08:53)
[2020-09-28] MEDS: ALBUTEROL 2.5 MG/3 ML NEB SOL NEB PRN ×2 (09:25→13:25)
[2020-09-28] MEDS: ARFORMOTEROL TARTRATE 15 MCG/2 ML VIAL.NEB NEB SCH ×2 (09:25→20:40)
[2020-09-28] MEDS ORDERED: ARFORMOTEROL TARTRATE 15 MCG/2 ML VIAL.NEB ONE (09:33)
[2020-09-28] MEDS: ROFLUMILAST 500 MCG TABLET PO SCH (10:40)
[2020-09-28] MEDS: acetaZOLAMIDE 250 MG TAB PO SCH (10:41)
--- NOTE | 2020-09-28 13:19 | P.PN ---
Subjective Date of Service: 09/29/20 Primary Care Provider: Dr. Enriquez; Pulmonary-Dr. Do Chief Complaint: Respiratory failure Subjective: Improving (Patient is doing well very alert responsive cooperative has some chest congestion productive cough) Review of Systems General: Weakness Respiratory: Cough, Shortness of Breath Physical Examination - Vital Signs Temperature: 98.6 F Blood Pressure: 139/92 Pulse: 89 Respirations: 26 Pulse Ox (%): 89 - Physical Exam General: Alert, Oriented x3, Mild distress Respiratory: Expiratory wheezes Cardiovascular: No edema, Regular rate/rhythm - Studies Medications List Reviewed: Yes Assessment & Plan - Problems (Diagnosis) (1) Acute and chronic respiratory failure ([id number]) Onset Date: 03/05/17 Current Visit: No Status: Acute Plan: Patient admitted with respiratory failure he has chronic end-stage COPD he will benefit from a noninvasive positive-pressure ventilation bicarbonate elevated at on some IV fluids p.o. Diamox sputum cultures p.o. levofloxacin white count is normal vital signs stable patient can be discharged home on Diamox 250 mg daily in addition to a noninvasive positive pressure ventilation patient to be discharged on spironolactone 25 mg once a day and Diamox 250 mg once a day use Lasix p.r.n. resume all her other home medications and to stay on prednisone 10 mg once a day follow up with me next week continue with levofloxacin for 7 days Qualifiers: Respiratory failure complication: hypoxia and hypercapnia Qualified Code (s): J96.21 - Acute and chronic respiratory failure with hypoxia; J96.22 - Acute and chronic respiratory failure with hypercapnia
[2020-09-28] MEDS: SPIRONOLACTONE 25 MG TABLET PO SCH (13:52)
--- NOTE | 2020-09-28 16:33 | P.PN ---
Subjective Date of Service: 09/28/20 Primary Care Provider: Dr. Enriquez; Pulmonary-Dr. Do Chief Complaint: Respiratory failure Subjective: Improving, Doing well Physical Examination - Vital Signs Temperature: 98.6 F Blood Pressure: 114/63 Pulse: 69 Respirations: 26 Pulse Ox (%): 89 - Physical Exam General: Alert, Cooperative HEENT: Atraumatic Neck: Supple Respiratory: Expiratory wheezes Cardiovascular: Normal pulses, Regular rate/rhythm Gastrointestinal: Normal bowel sounds Neurological: Normal speech, Normal strength at 5/5 x4 extr, Normal tone, Normal affect - Studies Medications List Reviewed: Yes Assessment & Plan Discharge Plan: Home Plan to discharge in: 24 Hours Physician Review Additional Text: Impression: Dyspnea secondary to acute on chronic respiratory failure with hypoxia and hypercapnia complicated with COPD exacerbation with advanced disease Bipolar disorder Hypertension Obstructive sleep apnea with CPAP at home Morbid obesity Plan: Patient much improved. Patient weaned off BiPAP. Pulmonology has made referral for NIV. Social work to help in this process. Pulmonology has adjusted medication. Will transfer the patient to the floor. Continue with home medication. Anticipate discharge once an IV in place for home. Will continue to monitor closely. Education on medications addressed in detail. Patient will need a continue with home health and PT at discharge. Time Spent Managing Pts Care (In Minutes): 55
[2020-09-28] MEDS ORDERED: MELATONIN 5 MG TABLET PO PRN (21:08)
[2020-09-28] MEDS: ATORVASTATIN 20 MG TAB PO SCH (21:53)
[2020-09-28 22:03] VITALS: BMI 39.4
[2020-09-29] MEDS: IPRATROPIUM BROM 0.5MG/2.5ML NEB SCH ×4 (02:00→19:50)
[2020-09-29 06:13] LABS: Potassium 4.4 mmol/L (3.5-5.1)
[2020-09-29] MEDS: ARFORMOTEROL TARTRATE 15 MCG/2 ML VIAL.NEB NEB SCH ×2 (09:25→19:50)
[2020-09-29] MEDS: FLUTICASONE 50MCG NASAL SPRAY NAS SCH (09:33)
[2020-09-29] MEDS: SPIRONOLACTONE 25 MG TABLET PO SCH (09:34)
[2020-09-29] MEDS: predniSONE 20 MG TAB PO SCH ×2 (09:34→20:25)
[2020-09-29] MEDS: ROFLUMILAST 500 MCG TABLET PO SCH (09:34)
[2020-09-29] MEDS: acetaZOLAMIDE 250 MG TAB PO SCH (09:34)
[2020-09-29] MEDS: levoFLOXacin 500 MG TAB PO SCH (09:34)
[2020-09-29] MEDS: ENOXAPARIN 40 MG/0.4 ML SQ SCH (09:34)
[2020-09-29] MEDS: GABAPENTIN 300 MG CAP PO SCH ×2 (09:34→20:25)
[2020-09-29] MEDS: ASPIRIN EC 81 MG TAB PO SCH (09:34)
[2020-09-29] MEDS: carvediloL 6.25 MG TAB PO SCH (09:34)
--- NOTE | 2020-09-29 10:59 | P.PN ---
Subjective Date of Service: 09/29/20 Primary Care Provider: Dr. Enriquez; Pulmonary-Dr. Do Chief Complaint: Respiratory failure Subjective: Improving Physical Examination - Vital Signs Temperature: 98 F Blood Pressure: 135/88 Pulse: 87 Respirations: 20 Pulse Ox (%): 86 - Physical Exam General: Alert, In no apparent distress, Oriented x3, Cooperative HEENT: Atraumatic Neck: Supple Respiratory: Clear to auscultation bilaterally, Normal air movement Cardiovascular: Normal pulses, Regular rate/rhythm Gastrointestinal: Normal bowel sounds, No masses, No rebound, No guarding Neurological: Normal speech, Normal strength at 5/5 x4 extr, Normal tone, Normal affect - Studies Medications List Reviewed: Yes Assessment & Plan Discharge Plan: Home Physician Review Additional Text: Impression: Dyspnea secondary to acute on chronic respiratory failure with hypoxia and hypercapnia complicated with COPD exacerbation with advanced disease Bipolar disorder Hypertension Obstructive sleep apnea with CPAP at home Morbid obesity Plan: Patient much improved. Patient weaned off BiPAP. Pulmonology has made referral for NIV. Awaiting approval for NIV. once approved then will [place]. Spoke to Social work to work on this. Pulmonology has adjusted medication. Patient will need Aldactone 25 mg daily and Diamox 250 mg daily at [place]. Anticipate possible discharge today if NIV can be arranged. Time Spent Managing Pts Care (In Minutes): 55
[2020-09-29 17:38] VITALS: O2SAT 98
[2020-09-29 17:59] VITALS: BP 115/69; TEMP 99
--- NOTE | 2020-09-29 19:01 | P.DS ---
Admission Date: 09/26/20 Discharge Date: 09/29/20 Primary Care Provider: Dr. Enriquez; Pulmonary-Dr. Do Disposition: ROUTINE DISCHARGE Discharge Condition: GOOD Reason for Admission: Respiratory failure Consultations: Dr. Do-pulmonology Procedures: Chest x-ray FINDINGS: No new mass or consolidation. Vasculature and lung markings are accentuated by a more shallow inspiratory effort. Heart size is stable. Significant failure or volume overload doubtful. No measurable pleural effusion and no pneumothorax. No acute bony abnormality seen. No acute aortic findings suspected. IMPRESSION: No new mass or consolidation. Low lung volumes accentuate vasculature and lung markings. No significant change from comparison. Medical problem list Dyspnea secondary to acute on chronic respiratory failure with hypoxia and hypercapnia complicated with COPD exacerbation with advanced disease Bipolar disorder Hypertension Obstructive sleep apnea with CPAP at home Morbid obesity Brief History of Present Illness: Patient was admitted for acute on chronic respiratory failure with chronic hypercapnia and hypoxia. Hospital Course: On initial date admission patient tolerated BiPAP well which greatly improved her respiratory status, at that time patient was able to be converted over to a nasal cannula. Patient was seen by pulmonology who continued to improve throughout her admission. Patient has home oxygen but it was determined that she would benefit from having a noninvasive ventilator at home. Pulmonology also recommended new medications Diamox, Aldactone, Levaquin which were prescribed. Patient with history of hypertension, hyperlipidemia, anxiety at discharge to continue her home medications carvedilol 6.25 mg daily, atorvastatin 20 mg p.o. daily, clonazepam 0.5 mg as needed, gabapentin 300 mg p.o. b.i.d.. Patient also with history of COPD, continue with home oxygen, noninvasive ventilator, Daliresp , home dose steroids, Levaquin for 7 days. Patient need to follow up with pulmonology within next 1 week. Patient also needs to follow up with her primary care doctor within 1-2 weeks to follow up this hospitalization. Vital Signs/Physical Exam: Temp Pulse Resp BP Pulse Ox 99 F 63 20 115/69 92 09/29/20 16:00 09/29/20 16:00 09/29/20 16:00 09/29/20 16:00 09/29/20 16:00 General: Alert, In no apparent distress HEENT: Atraumatic, PERRLA Neck: Supple, JVD not distended Respiratory: Clear to auscultation bilaterally, Diminished (Bilaterally) Cardiovascular: Regular rate/rhythm, Normal S1 S2 Gastrointestinal: Normal bowel sounds, No tenderness Musculoskeletal: No tenderness Integumentary: No rashes Neurological: Normal speech, Normal tone, Normal affect Laboratory Data at Discharge: WBC 4.8 K/uL (4.3-10.9) D 09/27/20 05:14 Hgb 11.6 g/dL (12.0-15.0) L 09/27/20 05:14 Hct 36.7 % (36.0-45.0) 09/27/20 05:14 Plt Count 165 K/uL (152-406) 09/27/20 05:14 PT 11.8 SECONDS (9.5-12.5) 09/26/20 13:40 INR 1.00 09/26/20 13:40 Sodium 139 mmol/L (136-145) 09/29/20 05:21 Potassium 4.4 mmol/L (3.5-5.1) 09/29/20 05:21 BUN 23 mg/dL (7-18) H 09/29/20 05:21 Creatinine 0.78 mg/dL (0.55-1.3) 09/29/20 05:21 Glucose 135 mg/dL (74-106) H 09/29/20 05:21 Magnesium 2.2 mg/dL (1.8-2.4) 09/27/20 05:14 Total Bilirubin 0.5 mg/dL (0.2-1.0) 09/26/20 13:40 AST 14 U/L (15-37) L 09/26/20 13:40 ALT 19 U/L (12-78) 09/26/20 13:40 Alkaline Phosphatase 108 U/L (45-117) 09/26/20 13:40 Troponin I < 0.02 ng/mL (0.0-0.045) 09/27/20 05:02 Home Medications: Albuterol Sulfate [Proair Hfa] 8.5 gm IH QID PRN 10/22/15 Atorvastatin Calcium 20 mg PO BEDTIME 10/10/17 Roflumilast [Daliresp*] 500 mcg PO DAILY 10/10/17 Umeclidinium Brm/Vilanterol Tr [Anoro Ellipta 62.5-25 Mcg INH] 1 puff IH DAILY 10/10/17 Furosemide [Lasix*] 20 mg PO DAILY 03/16/19 Gabapentin 300 mg PO BID 09/16/20 carvediloL [Carvedilol] 6.25 mg PO DAILY 09/16/20 clonazePAM [Clonazepam] 0.5 mg PO DAILY PRN 09/16/20 predniSONE [Deltasone*] 10 mg PO BID #20 tab 09/17/20 Spironolactone [Aldactone*] 25 mg PO DAILY #30 tab 09/29/20 acetaZOLAMIDE [Diamox*] 250 mg PO DAILY #30 tab 09/29/20 levoFLOXacin [Levaquin*] 500 mg PO DAILY #7 tab 09/29/20 New Medications: Spironolactone [Aldactone*] 25 mg PO DAILY #30 tab acetaZOLAMIDE [Diamox*] 250 mg PO DAILY #30 tab levoFLOXacin [Levaquin*] 500 mg PO DAILY #7 tab Patient Discharge Instructions: On initial date admission patient tolerated BiPAP well which greatly improved her respiratory status, at that time patient was able to be converted over to a nasal cannula. Patient was seen by pulmonology who continued to improve throughout her admission. Patient has home oxygen but it was determined that she would benefit from having a noninvasive ventilator at home. Pulmonology also recommended new medications Diamox, Aldactone, Levaquin which were prescribed. Patient with history of hypertension, hyperlipidemia, anxiety at discharge to continue her home medications carvedilol 6.25 mg daily, atorvastatin 20 mg p.o. daily, clonazepam 0.5 mg as needed, gabapentin 300 mg p.o. b.i.d.. Patient also with history of COPD, continue with home oxygen, noninvasive ventilator, Daliresp , home dose steroids, Levaquin for 7 days. Patient need to follow up with pulmonology within next 1 week. Patient also needs to follow up with her primary care doctor within 1-2 weeks to follow up this hospitalization. Diet: Low sodium Activity: Fall precautions Followup: Isai Do MD [ACTIVE - CAN ADMIT] - 1 Week Chris Enriquez MD [Primary Care Provider] - Time spent managing pt's care (in minutes): 55
[2020-09-29] MEDS: ATORVASTATIN 20 MG TAB PO SCH (20:25)
== END 2020-09-29 21:10 | disposition home or self-care (01) | DRG 189 ==
LOC: ER 13:06 → SUPCPDRO 13:06 → ERHOLD 15:16 → 2ND 09-28 10:15
PROVIDERS: ADMIT Family Medicine; ATTEND Family Medicine
PROC: 5A09457 Assistance with Respiratory Ventilation, 24-96 Consecutive Hours, Continuous Positive Airway Pressure (ICD-10-PCS; principal; 2020-09-26)
DX: J96.22 Acute and chronic respiratory failure with hypercapnia (principal); J44.1 Chronic obstructive pulmonary disease with (acute) exacerbation; J96.21 Acute and chronic respiratory failure with hypoxia; K21.9 Gastro-esophageal reflux disease without esophagitis; I10 Essential (primary) hypertension; E78.5 Hyperlipidemia, unspecified; F17.210 Nicotine dependence, cigarettes, uncomplicated; F31.9 Bipolar disorder, unspecified; G47.33 Obstructive sleep apnea (adult) (pediatric); E66.01 Morbid (severe) obesity due to excess calories; Z68.39 Body mass index [BMI] 39.0-39.9, adult; Z79.899 Other long term (current) drug therapy; Z90.49 Acquired absence of other specified parts of digestive tract; Z79.52 Long term (current) use of systemic steroids; Z99.89 Dependence on other enabling machines and devices; Z88.5 Allergy status to narcotic agent; Z20.822 Contact with and (suspected) exposure to COVID-19
CPT/HCPCS: 0240U; 36415; 71045; 80048; 80076; 82805; 82947; 83605; 83735; 83880; 84484; 85025; 85610; 87040; 87070; 87205; 93005; 94640; 94660; 94760; 96361; 96365; 96375; 99285; J1100; J1120; J1650; J2920; J3370; J7030; J7040; J7512; J7605

== ENCOUNTER 2020-10-19 11:44 | Inpatient (IN) | payer OTHER ==
--- OUTSIDE RECORDS SUMMARY | 2020-10-19 11:46 | XMS REPORT | Clinical Summary ---
:1960 Author Organization [facility] Address [address] [place] [address] Care Team Providers Name Role Phone Unavailable [...] Not on file Results Not on fileafter 10/19/2019 Insurance Payer Benefit Plan Subscriber ID Effective Dates Phone Address Type / Group MEDICAID - [facility] [id number] 2011-Gladys soliz MEDICAID [place] [employer]AN Critical access hospital Advance Directives For more information, please contact: [phone] Code Status Date Activated Date Inactivated Comments Full Code 02/24/2017 8:19 AM 02/26/2017 1:59 PM This code status was determined by: Patient
--- OUTSIDE RECORDS SUMMARY | 2020-10-19 11:46 | XMS REPORT | Continuity of Care Document ---
:1960 Author Organization [facility] Address [address] [place] [address] Care Team Providers Name Role Phone NeelAlexandramalvinkristine UPLANDS DIVISION DIRECTOR Attending Clinician Doctor Unassigned, Name Attending Clinician Unavailable KELLY Attending Clinician Unavailable KELLY Admitting Clinician Unavailable Problems Condition Condition Condition Status Onset Resolution Last Treating Co mments Source Name Details Category Date Date Treatment Clinician Date Tobacco Tobacco Disease Active [facility] Hypoxemia Hypoxemia Disease Active [facility] COPD COPD Disease Active [facility] exacerbati exacerbati 6-05 [facility] - on on 00:00: Medical 00 [facility] Acute Acute Disease Active [facility] hypercapni hypercapni 6-05 [facility] - c c 00:00: Medical respirator respirator 00 Ce nter y failure y failure Allergies, Adverse Reactions, Alerts This patient has no known allergies or adverse reactions. Social History Social Habit Start Date Stop Date Quantity Comments Source Sex Assigned At [facility] Medications Ordered Filled Start Stop [...] Type Clinicians Facility Department ID 2020-07-12 2020-07-12 [facility] [id number] 11:56:24 23:59:00 Encounter [facility] Pediatric [id number] Sh[facility] s and [id number] Adult [id number] Primary 9 [facility] 2020-07-12 2020-07-12 Office Neel-Ku Tate [id number] 11:00:10 13:58:54 Visit [facility] Pediatric [id number] [facility] s and [id number] Adult [id number] [facility] 2020-07-03 2020-07-03 Orders Doctor THI [id number] 00:00:00 00:00:00 Only Unassigned, VIRGILIO [id number] [facility] [id number] Results Test Description Test Time Test [...] NOT 1092) ACCURATE CRE ATININE CLEARANCE IN NC EDICTING GLOMERULAR FILT RATION RATE. ESTIMATED GFR [...] 0-0 (BEAKER) (test code = 413) 0.00POCT-GLUCOSE [id number] 17:50:00 Test Item Value Reference Range Interpretation Comments POC-GLUCOSE METER 118 mg/dL 70-110 H TESTED AT [facility] 67[address] (BEAKER) (test code = KISHA [place] 1538) [id number] POCT-GLUCOSE [id number] 11:59:00 Test Item Value Reference Range Interpretation Comments POC-GLUCOSE METER 247 mg/dL 70-110 H TESTED AT [facility] 67[address] (BEAKER) (test code = KISHA [place]ab[place] 1538) [id number] POCT-GLUCOSE [id number] 07:54:00 Test Item Value Reference Range Interpretation Comments POC-GLUCOSE METER 141 mg/dL 70-110 H TESTED AT [facility] 67[address] (BEAKER) (test code = KISHA [place] 1538) [address] CBC W/PLT COUNT & AUTO [id number] 03:45:00 Test Item Value Reference Range Interpretation [...] K/ L 0.00-0.20 (test code = 417) [id number] 03:29:00 Test Item Value Reference Range Interpretation Comments MAGNESIUM (BEAKER) 1.8 mg/dL 1.6-2.6 Specimen slightly (test code = 627) hemolyzed BASIC METABOLIC [id number] 03:29:00 Test Item Value Reference Range Interpretation [...] NOT APPLICABLE FOR DIALYSIS PATIEN TS. POCT-GLUCOSE [id number] 00:05:00 Test Item Value Reference Range Interpretation Comments POC-GLUCOSE METER 117 mg/dL 70-110 H TESTED AT [facility] [address] (BEAKER) (test code = KISHA [place] 1538) [address] POCT-GLUCOSE [id number] 18:17:00 Test Item Value Reference Range Interpretation Comments POC-GLUCOSE METER 141 mg/dL 70-110 H TESTED AT [facility] 67[address] (BEAKER) (test code = KISHA [place] 1538) [id number] CREATINE KINASE (CK), TOTAL AND [id number] 15:43:00 Test Item Value Reference Range Interpretation Comments CREATINE KINASE TOTAL (BEAKER) 31 U/L 29-200 (test code = 380) CREATINE KINASE-MB (BEAKER) (test 1.3 ng/mL 0.0-6.6 code = 750) CREATINE KINASE-MB INDEX (BEAKER) 4.2 % (test code = 395) Effective 08/09/2014: CK-MB Reference Range ChangeNew: 0.0-6.6 Previous: 0.0-4.9CK-MB Reference Range:<6.7 Normal6.7-10.0 Borderline>10.0 AbnormalBLOOD GAS, [id number] 15:26:00 Test Item Value Reference Range Interpretation [...] (test code = 1819) 35.0 % POCT-GLUCOSE [id number] 11:45:00 Test Item Value Reference Range Interpretation Comments POC-GLUCOSE METER 122 mg/dL 70-110 H TESTED AT [facility] 67[address] (BEAKER) (test code = KISHA [place] 1538) [id number] CREATINE KINASE (CK), TOTAL AND [id number] 10:29:00 Test Item Value Reference Range Interpretation Comments CREATINE KINASE TOTAL (BEAKER) 31 U/L 29-200 (test code = 380) CREATINE KINASE-MB (BEAKER) (test 1.5 ng/mL 0.0-6.6 code = 750) CREATINE KINASE-MB INDEX (BEAKER) 4.8 % (test code = 395) Effective 08/09/2014: CK-MB Reference Range ChangeNew: 0.0-6.6 Previous: 0.0-4.9CK-MB Reference Range:<6.7 Normal6.7-10.0 Borderline>10.0 AbnormalTROPONIN [id number] 10:29:00 Test Item Value Reference Range Interpretation [...] renalfailure, acidosis, acute neurological disease, and persistent tachyarrhythmia.[id number] 10:22:00 Test Item Value Reference Range Interpretation Comments PARTIAL THROMBOPLASTIN TIME 22.5 seconds 22.5-36.0 (BEAKER) (test code = 760) PROTHROMBIN [id number] 10:21:00 Test Item Value Reference Range Interpretation Comments PROTIME (BEAKER) (test code = 12.4 seconds 11.7-14.7 759) INR (BEAKER) (test code = 370) 0.9 <=5.9 RECOMMENDED COUMADIN/WARFARIN INR THERAPY RANGESSTANDARD DOSE: 2.0 - 3.0 Includes: PROPHYLAXIS forvenous thrombosis, systemic embolization; TREATMENT for venous thrombosis and/or pulmonary embolus.HIGH RISK: Target INR is 2.5-3.5 for patients with mechanical heart valves.BLOOD GAS, [id number] 10:17:00 Test Item Value Reference Range Interpretation [...] (test code = 1819) 40.0 % PLATELET [id number] 10:13:00 Test Item Value Reference Range Interpretation Comments PLATELET COUNT (BEAKER) (test 111 K/CU MM 150-430 L code = 756)
[2020-10-19] MEDS ORDERED: RSI MEDICATION KIT IV ONE (12:12)
[2020-10-19] MEDS ORDERED: propofoL 1,000 MG/100 ML VIAL IV ONE ×4 (12:19→23:37)
[2020-10-19] MEDS ORDERED: NA CHLORIDE 0.9% 1,000 ML ONE ×2 (12:21→19:48)
[2020-10-19 12:25] LABS: Protime INR 0.94
[2020-10-19] MEDS ORDERED: IPRATROPIUM BROM 0.5MG/2.5ML ONE ×2 (12:29→20:04)
[2020-10-19] MEDS ORDERED: LEVALBUTEROL 0.63 MG/3 ML NEB ONE (12:29)
[2020-10-19 12:31] LABS: Absolute Lymphocytes (CBC) 1.2 K/uL (0.7-4.9); Basophils % 0.3 % (0-1.3); Hematocrit 37.4 % (36.0-45.0); Lymphocytes % 12.7 % (15.3-44.8); MPV 7.7 fL (7.6-11.3); RBC Red Blood Cell Count 4.19 M/uL (3.86-4.86)
[2020-10-19 12:44] LABS: ALT/SGPT 15 U/L (12-78); AST/SGOT 11 U/L (15-37); Albumin 3.1 g/dL (3.4-5.0); Alkaline Phosphatase 105 U/L (45-117); BUN Blood Urea Nitrogen 10 mg/dL (7-18); Bilirubin Direct < 0.1 mg/dL (0-0.2); Bilirubin Total 0.3 mg/dL (0.2-1.0); Glucose Level 203 mg/dL (74-106); Magnesium 2.6 mg/dL (1.8-2.4); NT PRO-BNP 530 pg/mL (<125); Potassium 5.1 mmol/L (3.5-5.1); Protein, Total 7.2 g/dL (6.4-8.2); Sodium Level 143 mmol/L (136-145); Troponin (Emerg Dept Use Only) < 0.02 ng/mL (0.0-0.045)
[2020-10-19 12:47] LABS: Bicarbonate > 45 mmol/L (21-32)
[2020-10-19 12:52] LABS: Arterial Blood Carboxyhemoglob 3.3 % (0-1.5); Blood Gas Oxyhemoglobin 92.6 % (94-97); Blood O2 Saturation 96.9 % (92-98.5)
--- NOTE | 2020-10-19 12:52 | RAD REPORT ---
EXAM DESCRIPTION: RAD - Chest Single View - 10/19/2020 12:29 pm CLINICAL HISTORY: SOB Chest pain. COMPARISON: Chest Single View dated 09/27/2020; Chest Single View dated 09/26/2020; Chest Single View da sarah 09/16/2020; Chest Single View dated 07/27/2020 FINDINGS: Portable technique limits examination quality. Tip of the endotracheal tube is above the darrion. Mild interstitial lung opacities are present bilate rally. The heart is moderately enlarged.
[2020-10-19 12:59] LABS: Blood Morphology Comment NOT SEEN (NOT SEEN); Platelet Estimate ADEQ; White Blood Cell Scan OK (OK)
[2020-10-19 13:33] LABS: Urine Blood 2+ (NEG); Urine Glucose NEGATIVE (NEG); Urine Protein 3+ (NEG); Urine Specific Gravity >1.030 (1.005-1.030)
[2020-10-19 13:37] LABS: Urine Bacteria NONE SEEN /HPF (<20)
[2020-10-19] MEDS ORDERED: METHYLPREDNISOLONE 125 MG INJ ONE (13:55)
[2020-10-19] MEDS ORDERED: Levofloxacin 750mg IV 750 MG/150 ML BAG IV ONE ×2 (13:55→20:05)
[2020-10-19 14:35] LABS: SARS-COV-2 RT PCR NEGATIVE (NEGATIVE)
--- NOTE | 2020-10-19 15:22 | EDPHYS ---
Physician Documentation [facility] Name: Vikki Zamudio Age: 60 yrs Sex: Female : 1960 Arrival Date: 10/19/2020 Time: 11:57 Bed 18 Private MD: ED Physician Andrea Willson HPI: 10/19 13:00 This 60 yrs old Female presents to ER via EMS with complaints of Difficulty cp Breathing. 13:00 The patient or guardian reports difficulty breathing. Onset: The symptoms/episode cp began/occurred this morning. 13:00 Associated signs and symptoms: Pertinent negatives: fever. Patient brought to ED by EMS cp after being found this morning with difficulty breathing. Historical: - Allergies: 12:51 Codeine; jd3 - PMHx: 12:51 High Cholesterol; Panic Attacks; GERD; Hypothyroidism; Hypertension; COPD; CHF; Sleep jd3 Apnea; - Immunization history:: Adult Immunizations unknown. - Social history:: Smoking status: unknown. ROS: 13:05 Constitutional: Negative for fever. cp 13:05 Unable to obtain ROS due to altered mental status. cp Exam: 13:00 ECG was reviewed by the Attending Physician. cp 13:05 Head/Face: Normocephalic, atraumatic. cp 13:05 Constitutional: The patient appears non-diaphoretic, well developed, well nourished, obese. 13:05 Eyes: Pupils: equal, round, and reactive to light and accomodation. 13:05 ENT: External ear(s): are unremarkable, Nose: is normal, Mouth: Lips: moist, Oral mucosa: pink and intact, moist, Posterior pharynx: Airway: no evidence of obstruction, patent. 13:05 Chest/axilla: Inspection: normal. 13:05 Cardiovascular: Rate: normal, Rhythm: regular, Edema: is not appreciated, JVD: is not appreciated. 13:05 Respiratory: severe repiratory distress is noted, Respirations: shallow respirations, that is severe, Breath sounds: decreased breath sounds, that are severe, bilaterally. 13:05 Abdomen/GI: Inspection: obese 13:05 Skin: cellulitis, is not appreciated, no rash present. 13:05 Neuro: Mentation: somnolent. Vital Signs: 11:55 BP 155 / 99; Pulse 61; Resp 20 A; Pulse Ox 88% on BVM; Weight 150 kg (R); jd3 12:00 BP 171 / 100; Pulse 61; Resp 20 A; Pulse Ox 94% on ETT vent; jd3 12:15 BP 190 / 100; Pulse 73; Resp 22 A; Pulse Ox 97% on ETT vent; jd3 12:30 BP 169 / 80; Pulse 63; Resp 20 A; Pulse Ox 98% on ETT vent; jd3 13:36 BP 108 / 58; Pulse 57; Resp 17 A; Temp 95.8(C); Pulse Ox 100% on ETT vent; jd3 13:45 BP 110 / 62; Pulse 59; Resp 24 A; Temp 96.0(C); Pulse Ox 100% on ETT vent; jd3 14:55 BP 100 / 73; Pulse 71; Resp 22 A; Pulse Ox 100% on ETT vent; jd3 15:15 BP 113 / 65; Pulse 51; Resp 22 A; Pulse Ox 100% on ETT vent; jd3 15:30 BP 122 / 69; Pulse 52; Resp 24 A; Pulse Ox 100% on ETT vent; jd3 16:10 BP 122 / 84; Pulse 60; Resp 23 A; Temp 98.6(C); Pulse Ox 100% on ETT vent; jd3 16:30 BP 120 / 66; Pulse 61; Resp 22 A; Pulse Ox 98% on ETT vent; jd3 17:30 BP 107 / 67; Pulse 71; Resp 21 A; Pulse Ox 95% on ETT vent; jd3 18:36 BP 110 / 76; Pulse 74; Resp 23 A; Pulse Ox 96% on ETT vent; jd3 13:36 provider notfied of temp jd3 Matthews Coma Score: 13:00 Eye Response: none(1). Verbal Response: none(1). Motor Response: none(1). Total: 3. cp Procedures: 12:15 Intubation: Ventilated with 100% NRB prior to procedure. O2 saturation prior to cp procedure was 95 %. Intubated orally with 7.5 mm ETT. was successful on first attempt. Ventilated with ventilator. Tube secured with ETT law at right side of mouth measured 21 cm at teeth. Placement verified by CO2 detector with (+) color change, auscultating bilateral breath sounds, O2 saturation after procedure was 100 %. Patient tolerated well. MDM: 12:02 Patient medically screened. cp 15:15 Data reviewed: vital signs, nurses notes, lab test result(s), EKG, radiologic studies, cp plain films, I have discussed the patient's presentation/case with the attending Emergency Department Physician;. 15:15 Response to treatment: the patient's symptoms have markedly improved after treatment, cp and as a result, I will admit patient. 10/19 12:03 Order name: Basic Metabolic Panel; Complete Time: 13:44 10/19 13:44 Interpretation: Normal except: CO2 > 45; GLUC 203. 10/19 12:03 Order name: CBC with Diff; Complete Time: 13:44 10/19 13:45 Interpretation: Normal except: HGB 11.6; MCHC 31.1; LEXY% 78.8; LYM% 12.7. 10/19 12:03 Order name: LFT's; Complete Time: 13:44 10/19 13:45 Interpretation: Normal except: AST 11; ALB 3.1; GLOB 4.1; A/G 0.8. 10/19 12:03 Order name: Magnesium; Complete Time: 13:44 10/19 13:46 Interpretation: Reviewed. 10/19 12:03 Order name: NT PRO-BNP; Complete Time: 13:44 10/19 12:03 Order name: PT-INR; Complete Time: 13:44 10/19 12:03 Order name: Troponin (emerg Dept Use Only); Complete Time: 13:44 10/19 13:46 Interpretation: Within normal limits: TROPED < 0.02. 10/19 12:04 Order name: Lactate; Complete Time: 13:44 10/19 13:47 Interpretation: Within normal limits: LAC 0.5; Reviewed. 10/19 12:04 Order name: Procalcitonin; Complete Time: 13:44 10/19 13:47 Interpretation: Within normal limits: Procalcitonin < 0.05; Reviewed. 10/19 12:04 Order name: Blood Culture Adult (2) 10/19 12:05 Order name: Glucose, Ancillary Testing; Complete Time: 12:12 EDMS 10/19 12:06 Order name: Glucose, Ancillary Testing EDKS 10/19 12:15 Order name: Urine Microscopic Only; Complete Time: 13:44 cp 10/19 13:46 Interpretation: Normal except: UWBC 5-10; URBC 5-10; SQEPI 5-10. cp 10/19 12:33 Order name: CBC Smear Scan; Complete Time: 13:44 EDMS 10/19 12:52 Order name: ABG Arterial Blood Gas; Complete Time: 13:44 EDMS 10/19 13:26 Order name: Urine Dipstick--Ancillary (enter results); Complete Time: 13:44 em1 10/19 13:46 Interpretation: Normal except: USPGR >1.030; UBLD 2+; UPROT 3+. cp 10/19 14:36 Order name: COVID-19/FLU A+B; Complete Time: 15:13 EDMS 10/19 15:13 Order name: ABG; Complete Time: 18:28 cp 10/19 20:33 Order name: Troponin I EDMS 10/19 20:46 Order name: Glucose, Ancillary Testing EDMS 10/20 03:08 Order name: Glucose, Ancillary Testing EDMS 10/20 05:11 Order name: Troponin I EDMS 10/20 05:12 Order name: Comprehensive Metabolic Panel EDMS 10/20 05:12 Order name: Thyroid Stimulating Hormone EDMS 10/20 05:20 Order name: CBC with Automated Diff EDMS 10/19 12:03 Order name: XRAY Chest (1 view); Complete Time: 13:44 cp 10/19 12:03 Order name: EKG; Complete Time: 12:04 cp 10/19 12:03 Order name: Cardiac monitoring; Complete Time: 13:33 cp 10/19 12:03 Order name: EKG - Nurse/Tech; Complete Time: 12:25 cp 10/19 12:03 Order name: IV Saline Lock; Complete Time: 13:32 cp 10/19 12:03 Order name: Labs collected and sent; Complete Time: 13:32 cp 10/19 12:03 Order name: O2 Per Protocol; Complete Time: 13:32 cp 10/19 12:03 Order name: O2 Sat Monitoring; Complete Time: 13:33 cp 10/19 12:15 Order name: Allen; Complete Time: 13:32 cp 10/19 12:15 Order name: Urine Dipstick-Ancillary (obtain specimen); Complete Time: 13:32 cp 10/20 07:50 Order name: Glucose, Ancillary Testing EDMS 10/20 11:18 Order name: Gram Stain--Aerobic Bottle EDMS 10/20 11:18 Order name: Gram Stain--Anaerobic Bottle EDMS 10/20 16:05 Order name: Troponin I EDMS 10/20 16:23 Order name: Procalcitonin EDMS 10/20 18:09 Order name: Glucose, Ancillary Testing EDMS 10/21 08:35 Order name: Glucose, Ancillary Testing EDMS 10/21 11:27 Order name: ABG Arterial Blood Gas EDMS 10/21 13:57 Order name: Basic Metabolic Panel EDMS 10/22 06:13 Order name: CBC with Automated Diff EDMS 10/22 06:26 Order name: Basic Metabolic Panel EDMS 10/22 07:01 Order name: Blood Culture EDMS 10/22 08:33 Order name: RAD EDMS 10/22 13:34 Order name: CT EDMS 10/19 12:15 Order name: Urine Test (obtain specimen); Complete Time: 13:32 cp EC:00 Rate is 72 beats/min. Rhythm is regular. [place] interval is normal. QRS interval is normal. cp QT interval is normal. T waves are Inverted in leads aVL, aVR. Interpreted by me. Reviewed by me. Administered Medications: 11:58 Drug: Etomidate 20 mg Route: IVP; Site: right jugular; jd3 12:50 Follow up: Response: No adverse reaction jd3 11:59 Drug: Succinylcholine 100 mg Route: IVP; Site: right jugular; jd3 12:50 Follow up: Response: No adverse reaction jd3 12:30 Drug: NS 0.9% 1000 ml Route: IV; Rate: 100 ml/hr; Site: right jugular; jd3 18:07 Follow up: Response: No adverse reaction; IV Status: Infusion continued upon admission jd3 12:30 Drug: Propofol 5 mcg/kg/min Route: IV; Rate: calculated rate; Site: right jugular; jd3 18:07 Follow up: Response: No adverse reaction; IV Status: Infusion continued upon admission jd3 13:48 Drug: SOLU-Medrol 125 mg Route: IVP; Site: right jugular; jd3 14:40 Follow up: Response: No adverse reaction jd3 16:09 Drug: LevaQUIN 750 mg Volume: 150 ml; Route: IVPB; Infused Over: 90 mins; Site: left jd3 upper arm; 17:30 Follow up: Response: No adverse reaction; IV Status: Completed infusion jd3 17:00 Drug: Versed 2 mg Route: IVP; Site: left upper arm; bp 18:00 Follow up: Response: No adverse reaction jd3 19:55 Drug: Tylenol Suppository 650 mg Route: [place]; ea Disposition: 16:00 Chart complete. cp 10/20 07:02 Co-signature as Attending Physician, Andrea Willson MD I agree with the assessment and kdr plan of care. Disposition: 10/19/20 15:22 Hospitalization ordered by Sarwat Olvera for Inpatient Admission. Preliminary diagnosis is Respiratory failure, unspecified with hypoxia. - Bed requested for Telemetry/MedSurg (Inpatient). - Status is Inpatient Admission. ah - Condition is Stable. - Problem is new. - Symptoms have improved. Critical care time excluding procedures: 10/19 15:30 Critical care time: Bedside Care: 5 minutes, Consultation: 25 minutes. Total time: 30 cp minutes Signatures: Dispatcher [employer] EDKS Dayanna Almanzar RN RN dw Rittger, Kevin, MD MD kdr Roszak, Josh, PA PA jr8 Page, Corey, PA PA cp Antunez, Elena, RN RN ea Davies, Jonathon, RN RN jd3 Peltier, Brian, RN RN bp Harris, Amy, RN RN Corrections: (The following items were deleted from the chart) 13:47 12:15 Influenza Screen (A \T\ B)+BA.LAB.BRZ ordered. EDKS EDMS 13:47 12:16 Influenza Screen (A ordered. EDKS EDMS 14:47 12:15 BLOOD CULTURE*+BA.LAB.BRZ ordered. EDKS EDMS 16:59 15:22 Hospitalization Ordered by Sarah Young MD for Inpatient Admission. Preliminary cp diagnosis is Respiratory failure, unspecified with hypoxia. Bed requested for Telemetry/MedSurg (Inpatient). Status is Inpatient Admission. Condition is Stable. Problem is new. Symptoms have improved. cp 19:51 16:59 10/19/2020 15:22 Hospitalization Ordered by Sarwat Olvera for Inpatient Admission. Preliminary diagnosis is Respiratory failure, unspecified with hypoxia. Bed requested for Telemetry/MedSurg (Inpatient). Status is Inpatient Admission. Condition is Stable. Problem is new. Symptoms have improved. cp 10/22 17:03 10/19 19:51 10/19/2020 15:22 Hospitalization Ordered by Sarwat Olvera for Inpatient dw Admission. Preliminary diagnosis is Respiratory failure, unspecified with hypoxia. Bed requested for [facility] ER HOLD. Status is Inpatient Admission. Condition is Stable. Problem is new. Symptoms have improved. dw 10/22 18:04 17:03 10/19/2020 15:22 Hospitalization Ordered by Sarwat Olvera for Inpatient Admission. Preliminary diagnosis is Respiratory failure, unspecified with hypoxia. Bed requested for Telemetry/MedSurg (Inpatient). Status is Inpatient Admission. Condition is Stable. Problem is new. Symptoms have improved. dw
--- NOTE | 2020-10-19 15:22 | ER ---
Nurse's Notes [facility] Name: Vikki Zamudio Age: 60 yrs Sex: Female : 1960 Arrival Date: 10/19/2020 Time: 11:57 Bed 18 Private MD: Diagnosis: Respiratory failure, unspecified with hypoxia Presentation: 10/19 11:57 Chief complaint: Patient states: "pt was found unresponsive with weak respirations. jd3 normally with oxygen with a nasal canula she wake back up, but she continued to be unresponsive. we attempted multiple nasal and oral airways, but they did not stay in. 3 IV attempts with no luck. we bagged her until she got here.". Coronavirus screen: difficulty breathing, shortness of breath, Client presents with at least one sign or symptom that may indicate coronavirus-19. Standard/surgical mask placed on the client. Provider contacted for isolation considerations. Ebola Screen: Patient negative for fever greater than or equal to 101.5 degrees Fahrenheit, and additional compatible Ebola Virus Disease symptoms. Initial Sepsis Screen: Does the patient meet any 2 criteria? No. Patient's initial sepsis screen is negative. Does the patient have a suspected source of infection? No. Patient's initial sepsis screen is negative. Risk Assessment: Do you want to hurt yourself or someone else? Patient reports no desire to harm self or others. Onset of symptoms was October 19, 2020. 11:57 Method Of Arrival: EMS: [facility] jd3 11:57 Acuity: LIZETH 1 jd3 Historical: - Allergies: 12:51 Codeine; jd3 - PMHx: 12:51 High Cholesterol; Panic Attacks; GERD; Hypothyroidism; Hypertension; COPD; CHF; Sleep jd3 Apnea; - Immunization history:: Adult Immunizations unknown. - Social history:: Smoking status: unknown. Screenin:00 Abuse screen: Denies threats or abuse. Nutritional screening: No deficits noted. jd3 Tuberculosis screening: No symptoms or risk factors identified. Fall Risk None identified. Assessment: 12:00 General: Appears distressed, Behavior is unresponsive. Pain: Unable to use pain scale. jd3 Patient is unresponsive. Neuro: Level of Consciousness is unresponsive. Cardiovascular: Heart tones present Rhythm is regular. Respiratory: Airway via oral airway bagging with ambu-bag Respiratory effort is shallow, weak, Respiratory pattern is tachypnea Breath sounds are diminished bilaterally. the patient has severe shortness of breath. GI: No signs and/or symptoms were reported involving the gastrointestinal system. : No signs and/or symptoms were reported regarding the genitourinary system. EENT: No signs and/or symptoms were reported regarding the EENT system. Derm: Skin is intact, Skin is diaphoretic, Skin is pale, Skin temperature is warm. Musculoskeletal: No signs and/or symptoms reported regarding the musculoskeletal system. 12:15 Reassessment: Patient and/or family updated on plan of care and expected duration. Pain jd3 level reassessed. Cardiovascular: Rhythm is regular. Respiratory: Airway is patent via oral intubation pt appears more relaxed with respirations on ventilator Breath sounds are diminished bilaterally. 12:30 Reassessment: placed on bear hugger blanket. jd3 12:45 Reassessment: No changes from previously documented assessment. Patient and/or family jd3 updated on plan of care and expected duration. Pain level reassessed. no pain noted at this time, pt appears comfortable. sedated per prescribed propanal, blood pressure maintained at safe level. rails up X 2. IV with clean and dry dressings, no signs of infiltration. 13:00 Reassessment: No changes from previously documented assessment. Patient and/or family jd3 updated on plan of care and expected duration. Pain level reassessed. 13:30 Reassessment: No changes from previously documented assessment. Patient and/or family jd3 updated on plan of care and expected duration. Pain level reassessed. 14:00 Reassessment: No changes from previously documented assessment. Patient and/or family jd3 updated on plan of care and expected duration. Pain level reassessed. 14:53 Reassessment: Patient and/or family updated on plan of care and expected duration. Pain jd3 level reassessed. pt appears more relaxed with ventilator respirations. medications infusing through IV. IV with clean and dry dressings, no sign of infiltration. diminished lung sounds KEI. pt on ventilator. 15:30 Reassessment: No changes from previously documented assessment. Patient and/or family jd3 updated on plan of care and expected duration. Pain level reassessed. 16:12 Reassessment: No changes from previously documented assessment. Patient and/or family jd3 updated on plan of care and expected duration. Pain level reassessed. 17:00 Reassessment: Patient and/or family updated on plan of care and expected duration. Pain jd3 level reassessed. pt with eyes open and kicking legs, provider notified, medication order received, see MAR. Cardiovascular: Rhythm is regular. Respiratory: Airway is patent via oral intubation. 17:45 Reassessment: No changes from previously documented assessment. Patient and/or family jd3 updated on plan of care and expected duration. Pain level reassessed. General: Appears comfortable. Neuro: Level of Consciousness is intubated. Respiratory: Airway is patent via oral intubation. 18:36 Reassessment: No changes from previously documented assessment. Patient and/or family jd3 updated on plan of care and expected duration. Pain level reassessed. Vital Signs: 11:55 BP 155 / 99; Pulse 61; Resp 20 A; Pulse Ox 88% on BVM; Weight 150 kg (R); jd3 12:00 BP 171 / 100; Pulse 61; Resp 20 A; Pulse Ox 94% on ETT vent; jd3 12:15 BP 190 / 100; Pulse 73; Resp 22 A; Pulse Ox 97% on ETT vent; jd3 12:30 BP 169 / 80; Pulse 63; Resp 20 A; Pulse Ox 98% on ETT vent; jd3 13:36 BP 108 / 58; Pulse 57; Resp 17 A; Temp 95.8(C); Pulse Ox 100% on ETT vent; jd3 13:45 BP 110 / 62; Pulse 59; Resp 24 A; Temp 96.0(C); Pulse Ox 100% on ETT vent; jd3 14:55 BP 100 / 73; Pulse 71; Resp 22 A; Pulse Ox 100% on ETT vent; jd3 15:15 BP 113 / 65; Pulse 51; Resp 22 A; Pulse Ox 100% on ETT vent; jd3 15:30 BP 122 / 69; Pulse 52; Resp 24 A; Pulse Ox 100% on ETT vent; jd3 16:10 BP 122 / 84; Pulse 60; Resp 23 A; Temp 98.6(C); Pulse Ox 100% on ETT vent; jd3 16:30 BP 120 / 66; Pulse 61; Resp 22 A; Pulse Ox 98% on ETT vent; jd3 17:30 BP 107 / 67; Pulse 71; Resp 21 A; Pulse Ox 95% on ETT vent; jd3 18:36 BP 110 / 76; Pulse 74; Resp 23 A; Pulse Ox 96% on ETT vent; jd3 13:36 provider notfied of temp jd3 Lenny Coma Score: 13:00 Eye Response: none(1). Verbal Response: none(1). Motor Response: none(1). Total: 3. cp ED Course: 11:57 Patient arrived in ED. bp 11:57 Inserted saline lock: 18 gauge in right EJ, using aseptic technique. Blood collected. jd3 placed by Tremayne CARDOAN. 12:00 Assisted provider with intubation using 7.5 mm ETT via oral route. ET tube secured at jd3 21cm at the gums. Set up intubation tray. Intubated by Po LIMON Placement verified by CO2 detector w/ + color change, CXR, Patient tolerated well. 12:02 Po Alvarez PA is PHCP. cp 12:02 Andrea Willson MD is Attending Physician. cp 12:24 Nestor Holt RN is Primary Nurse. jd3 12:29 XRAY Chest (1 view) In Process Unspecified. EDMS 12:35 Speci-cath kit inserted, using sterile technique, 16 Fr., specimen obtained. returned jd3 cloudy urine. Patient tolerated well. 12:45 Triage completed. jd3 12:50 Arm band placed on. jd3 13:00 Placed in gown. Bed in low position. Call light in reach. Side rails up X2. Cardiac jd3 monitor on. Pulse ox on. NIBP on. Warm blanket given. 15:20 Sarah Young MD is Hospitalizing Provider. cp 16:59 Sarwat Olvera is Hospitalizing Provider. cp 19:55 Patient admitted, IV remains in place. ea 10/20 06:40 Primary Nurse role handed off by Nestor Holt RN eb 07:13 Clinton Love, DULCE is Primary Nurse. jl7 19:15 Primary Nurse role handed off by Clinton Love, DULCE mw2 10/21 07:34 Reena Jarrell, DULCE is Primary Nurse. sv 09:07 Glucose, Ancillary Testing Sent. sv 19:03 Primary Nurse role handed off by Reena Jarrell, DULCE sv Administered Medications: 10/19 11:58 Drug: Etomidate 20 mg Route: IVP; Site: right jugular; jd3 12:50 Follow up: Response: No adverse reaction jd3 11:59 Drug: Succinylcholine 100 mg Route: IVP; Site: right jugular; jd3 12:50 Follow up: Response: No adverse reaction jd3 12:30 Drug: NS 0.9% 1000 ml Route: IV; Rate: 100 ml/hr; Site: right jugular; jd3 18:07 Follow up: Response: No adverse reaction; IV Status: Infusion continued upon admission jd3 12:30 Drug: Propofol 5 mcg/kg/min Route: IV; Rate: calculated rate; Site: right jugular; jd3 18:07 Follow up: Response: No adverse reaction; IV Status: Infusion continued upon admission jd3 13:48 Drug: SOLU-Medrol 125 mg Route: IVP; Site: right jugular; jd3 14:40 Follow up: Response: No adverse reaction jd3 16:09 Drug: LevaQUIN 750 mg Volume: 150 ml; Route: IVPB; Infused Over: 90 mins; Site: left jd3 upper arm; 17:30 Follow up: Response: No adverse reaction; IV Status: Completed infusion jd3 17:00 Drug: Versed 2 mg Route: IVP; Site: left upper arm; bp 18:00 Follow up: Response: No adverse reaction jd3 19:55 Drug: Tylenol Suppository 650 mg Route: [place]; ea Outcome: 15:22 Decision to Hospitalize by Provider. cp 19:55 Condition: stable ea 19:55 Instructed on the need for admit. 19:55 Admitted to ER Hold. Please see [facility] for further documentation. ea 10/22 18:04 Patient left the ED. Signatures: Dispatcher [employer] EDMS Reena Jarrell RN RN Po Dickinson PA PA cp Clinton Love RN RN jl7 Mary Ellen Villanueva RN RN ea Davies, Jonathon, RN RN jTremayne Richmond RN RN bp Renard Lei mw2 Hetal Shetty Amy, RN RN Corrections: (The following items were deleted from the chart) 10/19 13:38 13:36 BP 108 / 58; Pulse 57bpm; Resp 17bpm; Assisted; Pulse Ox 100% ET / Ventilator; [id number] 16:35 13:30 Reassessment: placed on bear hugger blanket jd3 jd3 16:35 14:53 Reassessment: Patient and/or family updated on plan of care and expected jd3 duration. Pain level reassessed. pt appears more relaxed with ventilator respirations. medications infusing through right EJ. diminished lung sounds KEI. pt on ventilator. jd3
--- NOTE | 2020-10-19 15:27 | P.HP ---
Certification for Inpatient Patient admitted to: Inpatient With expected LOS: >2 Midnights Practitioner: I am a practitioner with admitting privileges, knowledge of patient current condition, hospital course, and medical plan of care. Services: Services provided to patient in accordance with Admission requirements found in Title 42 Section 412.3 of the Code of Federal Regulations Patient History Date of Service: 10/19/20 Reason for admission: Altered mental History of Present Illness: 60-year-old morbidly obese woman recently hospitalized for hypercarbic respiratory failure was brought to the emergency department unresponsive. EMS was called because patient was not arousable. Patient noted to have low oxygen saturation. She was bagged on the way to the ER. Arterial blood gas done in the emergency department demonstrated pCO2 of 220. Patient was intubated. Chest x-ray demonstrated mild interstitial opacities bilaterally. Patient was sedated and intubated and could not provide any history. She is admitted for further management. Allergies codeine [Codeine] Adverse Reaction (Mild, Verified 09/16/20 21:07) itch Home Medications: Albuterol Sulfate [Proair Hfa] 8.5 gm IH QID PRN 10/22/15 Atorvastatin Calcium 20 mg PO BEDTIME 10/10/17 Roflumilast [Daliresp*] 500 mcg PO DAILY 10/10/17 Umeclidinium Brm/Vilanterol Tr [Anoro Ellipta 62.5-25 Mcg INH] 1 puff IH DAILY 10/10/17 Furosemide [Lasix*] 20 mg PO DAILY 03/16/19 Gabapentin 300 mg PO BID 09/16/20 carvediloL [Carvedilol] 6.25 mg PO DAILY 09/16/20 clonazePAM [Clonazepam] 0.5 mg PO DAILY PRN 09/16/20 predniSONE [Deltasone*] 10 mg PO BID #20 tab 09/17/20 Spironolactone [Aldactone*] 25 mg PO DAILY #30 tab 09/29/20 acetaZOLAMIDE [Diamox*] 250 mg PO DAILY #30 tab 09/29/20 levoFLOXacin [Levaquin*] 500 mg PO DAILY #7 tab 09/29/20 - Past Medical/Surgical History Diabetic: No -: Severe COPD, oxygen/steroid dependent,Pulmonary-Dr. Do -: Mild pulmonary hypertension -: Hypothyroidism -: Bipolar disorder -: Hypertension -: Chronic low back pain -: Obstructive sleep apnea -: Tobacco abuse -: HLD -: GERD -: Appendectomy -: Psychosocial/ Personal History: She lives with a partner. She has 1 child. She is currently disabled. - Family History Father -: Heart disease, Hypertension, Diabetes Notes: from CHF Mother -: Heart disease, Hypertension, Diabetes Notes: from CHF Brother -: Diabetes Sister -: Heart disease, Diabetes Notes: from CHF - Social History Alcohol use: Yes CD- Drugs: No Caffeine use: Yes Review of Systems is unable to be obtained (Due to altered mental status) Physical Examination - Physical Exam General: Obese, Other (Sedated) HEENT: Other (Intubated) Neck: Supple, JVD not distended Respiratory: Diminished Cardiovascular: No edema, Regular rate/rhythm, Normal S1 S2 Capillary refill: <2 Seconds Gastrointestinal: Normal bowel sounds, Soft and benign, Non-distended, No tenderness Musculoskeletal: No swelling, No tenderness Integumentary: No rashes, No erythema Neurological: Other (Sedated, withdraws all extremities to touch.) - Studies Laboratory Data (last 24 hrs) 10/19/20 12:05: PT 11.1, INR 0.94 10/19/20 12:05: WBC 9.80, Hgb 11.6 L, Hct 37.4, Plt Count 239 10/19/20 12:05: Sodium 143, Potassium 5.1, BUN 10, Creatinine 0.64, Glucose 203 H, Magnesium 2.6 H, Total Bilirubin 0.3, AST 11 L, ALT 15, Alkaline Phosphatase 105 Assessment and Plan - Problems (Diagnosis) (1) Acute on chronic respiratory failure with hypoxia and hypercapnia Current Visit: Yes Status: Acute (2) Obesity hypoventilation syndrome Current Visit: No Status: Acute (3) COPD exacerbation Onset Date: 05/30/16 Current Visit: No Status: Chronic (4) Hypertension Onset Date: 03/20/17 Current Visit: No Status: Chronic Qualifiers: Hypertension type: essential hypertension Qualified Code(s): I10 - Essential (primary) hypertension (5) Obstructive sleep apnea Onset Date: 03/20/17 Current Visit: No Status: Chronic - Plan Patient admitted to the ICU. She is intubated and on mechanical ventilation. Will start IV Solu-Medrol. Will cover for infective bronchitis and possible pneumonia with IV.Levaquin. Scheduled albuterol and ipratropium nebulizers ordered. Consult to pulmonary. ICu ventilator protocol. IV fluid maintenance-with D5 normal saline. Monitor CBC and blood chemistry. - Advance Directives Does patient have a Living Will: No Does patient have a Durable POA for Healthcare: No
[2020-10-19] MEDS ORDERED: MIDAZOLAM HCL 2 MG/2 ML INJ ONE (17:24)
[2020-10-19 17:50] LABS: Arterial Blood Carboxyhemoglob 2.6 % (0-1.5); Blood O2 Saturation 99.5 % (92-98.5)
[2020-10-19] MEDS ORDERED: SUCCINYLCHOLINE 20 MG/ML (10 ML) IV ONE (17:50)
[2020-10-19] MEDS ORDERED: ETOMIDATE 20 MG/10 ML VIAL IV ONE (17:50)
[2020-10-19] MEDS: INSULIN -REGULAR HUMAN 50 UNIT/0.5 ML ML SQ SCH (19:34)
[2020-10-19] MEDS ORDERED: Levofloxacin 750mg IV 750 MG/150 ML BAG IV SCH (19:34)
[2020-10-19] MEDS: METHYLPREDNISOLONE 125 MG INJ IV SCH (19:34)
[2020-10-19] MEDS ORDERED: ONDANSETRON 4 MG/2 ML VIAL IV PRN (19:34)
[2020-10-19] MEDS: D5 0.9 NS 1,000 ML IV SCH (19:34)
[2020-10-19] MEDS ORDERED: ACETAMINOPHEN 650MG/RECT SUPP PR ONE (20:00)
[2020-10-19] MEDS ORDERED: METHYLPREDNISOLONE 40 MG INJ ONE (20:04)
[2020-10-19] MEDS ORDERED: D5W 1,000 ML IV ONE (20:04)
[2020-10-19] MEDS: IPRATROPIUM BROM 0.5MG/2.5ML NEB SCH (21:10)
[2020-10-19] MEDS: ALBUTEROL 2.5 MG/3 ML NEB SOL NEB SCH (21:10)
[2020-10-19 21:12] VITALS: BMI 50.3
[2020-10-19] MEDS ORDERED: ALBUTEROL 2.5 MG/3 ML NEB SOL ONE (21:23)
[2020-10-20] MEDS: IPRATROPIUM BROM 0.5MG/2.5ML NEB SCH ×5 (01:02→20:00)
[2020-10-20] MEDS: ALBUTEROL 2.5 MG/3 ML NEB SOL NEB SCH ×4 (01:02→20:00)
[2020-10-20] MEDS ORDERED: IPRATROPIUM BROM 0.5MG/2.5ML ONE ×4 (01:06→20:20)
[2020-10-20] MEDS ORDERED: propofoL 1,000 MG/100 ML VIAL IV ONE ×2 (02:22→05:23)
[2020-10-20] MEDS: INSULIN -REGULAR HUMAN 50 UNIT/0.5 ML ML SQ SCH ×4 (02:58→16:30)
[2020-10-20] MEDS ORDERED: METHYLPREDNISOLONE 125 MG INJ ONE ×2 (02:59→08:04)
[2020-10-20] MEDS ORDERED: INSULIN -REGULAR HUMAN 50 UNIT/0.5 ML ML ONE ×2 (03:19→08:05)
[2020-10-20 04:37] LABS: Absolute Lymphocytes (CBC) 0.5 K/uL (0.7-4.9); Basophils % 0.1 % (0-1.3); Lymphocytes % 8.2 % (15.3-44.8); MPV 8.1 fL (7.6-11.3); RBC Red Blood Cell Count 3.65 M/uL (3.86-4.86)
[2020-10-20 05:02] LABS: Albumin 2.8 g/dL (3.4-5.0); Bilirubin Total 0.3 mg/dL (0.2-1.0); Potassium 4.5 mmol/L (3.5-5.1); Protein, Total 6.3 g/dL (6.4-8.2); Thyroid Stimulating Hormone 0.432 uIU/mL (0.360-3.740)
[2020-10-20] MEDS ORDERED: FENTANYL CITR 100 MCG/2 ML ONE (05:24)
[2020-10-20] MEDS ORDERED: LORazepam 2 MG/ML VIAL ONE ×4 (05:24→18:05)
[2020-10-20] MEDS ORDERED: LORazepam 2 MG/ML VIAL IV ONE ×3 (05:45→14:45)
[2020-10-20] MEDS ORDERED: FENTANYL CITR 100 MCG/2 ML IV ONE (05:45)
[2020-10-20] MEDS ORDERED: Levofloxacin 750mg IV 750 MG/150 ML BAG IV ONE (08:05)
[2020-10-20] MEDS ORDERED: ENOXAPARIN 40 MG/0.4 ML SQ ONE (08:05)
[2020-10-20] MEDS: METHYLPREDNISOLONE 125 MG INJ IV SCH ×4 (08:13→18:00)
[2020-10-20] MEDS ORDERED: ALBUTEROL 2.5 MG/3 ML NEB SOL ONE ×2 (08:27→20:20)
[2020-10-20] MEDS: D5 0.9 NS 1,000 ML IV SCH ×2 (08:54→22:14)
[2020-10-20] MEDS ORDERED: ENOXAPARIN 40 MG/0.4 ML SQ SCH (09:00)
[2020-10-20] MEDS ORDERED: propofoL 200 MG/20 ML VIAL IV ONE (09:49)
[2020-10-20] MEDS ORDERED: D5W 1,000 ML IV ONE (09:51)
--- NOTE | 2020-10-20 11:06 | EKG ---
Test Date: 2020-10-19 Test Time: 11:49:59 [employer] Fab[employer]ator: GILBERTO MEASUREMENT RESULTS: Intervals: Rate: 72 NH: 178 QRSD: 94 QT: 402 QTc: 440 [place]: P: 81 NH: 178 QRS: 77 T: 78 INTERPRETIVE STATEMENTS: Normal sinus rhythm Normal ECG Compared to ECG 09/26/2020 13:37:08 Atrial premature complex(es) no longer present ST (T wave) deviation no longer present Myocardial infarct finding no longer present Electronically Signed On 10-20-20 11:05:08 WEATHER TEACHER by Selvin Mar
--- NOTE | 2020-10-20 12:38 | P.CNS ---
Date of Consult: 10/20/20 Reason for Consult: Respiratory failure Chief Complaint: Altered mental History of Present Illness: Patient is 60 years of age well known to me she has terminal COPD multiple comorbid problems was just recently discharged recurrent hospital admissions came in altered mental status hypercapnic hypercarbic was intubated this morning she is alert cooperative agitated otherwise stable Allergies codeine [Codeine] Adverse Reaction (Mild, Verified 09/16/20 21:07) itch Home Medications: Albuterol Sulfate [Proair Hfa] 8.5 gm IH QID PRN 10/22/15 Atorvastatin Calcium 20 mg PO BEDTIME 10/10/17 Roflumilast [Daliresp*] 500 mcg PO DAILY 10/10/17 Umeclidinium Brm/Vilanterol Tr [Anoro Ellipta 62.5-25 Mcg INH] 1 puff IH DAILY 10/10/17 Furosemide [Lasix*] 20 mg PO DAILY 03/16/19 Gabapentin 300 mg PO BID 09/16/20 carvediloL [Carvedilol] 6.25 mg PO DAILY 09/16/20 clonazePAM [Clonazepam] 0.5 mg PO DAILY PRN 09/16/20 predniSONE [Deltasone*] 10 mg PO BID #20 tab 09/17/20 Spironolactone [Aldactone*] 25 mg PO DAILY #30 tab 09/29/20 acetaZOLAMIDE [Diamox*] 250 mg PO DAILY #30 tab 09/29/20 levoFLOXacin [Levaquin*] 500 mg PO DAILY #7 tab 09/29/20 - Past Medical/Surgical History Diabetic: No -: Severe COPD, oxygen/steroid dependent,Pulmonary-Dr. Do -: Mild pulmonary hypertension -: Hypothyroidism -: Bipolar disorder -: Hypertension -: Chronic low back pain -: Obstructive sleep apnea -: Tobacco abuse -: HLD -: GERD -: Appendectomy -: Psychosocial/ Personal History: She lives with a partner. She has 1 child. She is currently disabled. - Family History Father Medical History: Heart disease, Hypertension, Diabetes Notes: from CHF Mother Medical History: Heart disease, Hypertension, Diabetes Notes: from CHF Brother Medical History: Diabetes Sister Medical History: Heart disease, Diabetes Notes: from CHF - Social History Smoking Status: Unknown if ever smoked Alcohol use: Yes CD- Drugs: No Caffeine use: Yes Review of Systems is unable to be obtained Physical Examination Temp Pulse Resp BP Pulse Ox 98.5 F 97 H 21 H 102/67 99 10/20/20 08:00 10/20/20 08:00 10/20/20 08:14 10/20/20 08:00 10/20/20 08:14 General: Alert, Moderate distress Respiratory: Expiratory wheezes Cardiovascular: No edema, Normal S1 S2 Laboratory Data (last 24 hrs) 10/19/20 12:05: WBC 9.80, Hgb 11.6 L, Hct 37.4, Plt Count 239 10/19/20 12:05: Sodium 143, Potassium 5.1, BUN 10, Creatinine 0.64, Glucose 203 H, Magnesium 2.6 H, Total Bilirubin 0.3, AST 11 L, ALT 15, Alkaline Phosphatase 105 - Problems (1) Acute and chronic respiratory failure ([id number]) Onset Date: 03/05/17 Current Visit: No Status: Acute Plan: Patient is 60 years of age with terminal COPD admitted with acute on chronic respiratory failure she does have a noninvasive ventilator at home right now patient is hemodynamically stable continue with bronchodilators steroids patient is compliant with her medication fully anti coagulated high risk for thromboembolism CT pulmonary angiogram serum procalcitonin level if negative can Dc antibiotic Qualifiers: Respiratory failure complication: hypoxia and hypercapnia Qualified Co de(s): J96.21 - Acute and chronic respiratory failure with hypoxia; J96.22 - Acute and chronic respiratory failure with hypercapnia
[2020-10-20] MEDS ORDERED: HALOPERIDOL LACT 5 MG/ML INJ IM PRN (13:36)
[2020-10-20] MEDS ORDERED: WATER FOR INJ,STERILE 10 ML IM PRN (13:49)
[2020-10-20] MEDS ORDERED: ZIPRASIDONE MESYLA 20 MG/VIAL IM ONE ×4 (13:49→21:06)
[2020-10-20] MEDS ORDERED: MIDAZOLAM HCL 2 MG/2 ML INJ IV ONE (13:50)
[2020-10-20] MEDS ORDERED: WATER FOR INJ,STERILE 10 ML ONE (14:05)
[2020-10-20] MEDS ORDERED: MIDAZOLAM HCL 2 MG/2 ML INJ ONE (14:58)
[2020-10-20] MEDS ORDERED: LORazepam 2 MG/ML VIAL IV PRN (17:59)
--- NOTE | 2020-10-20 18:03 | P.PN ---
Subjective Date of Service: 10/20/20 Chief Complaint: Altered mental Patient was extubated this morning but she became very agitated, aggressive, using abusive language. She is confused and refused to wear the BiPAP. Patient had to be given multiple doses of IV Ativan, a dose of IV midazolam as well as IM Geodon to calm. The nursing staff has managed to put the BiPAP on her. Physical Examination - Vital Signs Temperature: 98.8 F Blood Pressure: 162/94 Pulse: 90 Respirations: 22 Pulse Ox (%): 99 - Physical Exam General: In no apparent distress, Confused, Obese HEENT: Mucous membr. moist/pink Respiratory: Clear to auscultation bilaterally, Diminished Cardiovascular: No edema, Regular rate/rhythm, Normal S1 S2 Gastrointestinal: Normal bowel sounds, Soft and benign, Non-distended, No tenderness Musculoskeletal: No swelling, No tenderness Integumentary: No rashes Neurological: Normal strength at 5/5 x4 extr, Cranial nerves 3-12 intact Assessment And Plan - Current Problems (Diagnosis) (1) Acute on chronic respiratory failure with hypoxia and hypercapnia Current Visit: Yes Status: Acute (2) Obesity hypoventilation syndrome Current Visit: No Status: Acute (3) COPD exacerbation Onset Date: 05/30/16 Current Visit: No Status: Chronic (4) Hypertension Onset Date: 03/20/17 Current Visit: No Status: Chronic Qualifiers: Hypertension type: essential hypertension (5) Obstructive sleep apnea Onset Date: 03/20/17 Current Visit: No Status: Chronic - Plan Continue BiPAP as tolerated Continue IV Solu-Medrol. IV Ativan p.r.n. for agitation. Serial arterial blood gas. May have to intubate the patient remained agitated and aggressive making it impossible to use the BiPAP Continue IV Levaquin. Scheduled albuterol and ipratropium nebulizers ordered. Pulmonary input appreciated IV fluid maintenance-with D5 normal saline. Monitor CBC and blood chemistry.
[2020-10-20] MEDS ORDERED: METHYLPREDNISOLONE 40 MG INJ ONE (19:42)
[2020-10-20] MEDS ORDERED: Levofloxacin 750mg IV 750 MG/150 ML BAG IV SCH (21:00)
[2020-10-21] MEDS: IPRATROPIUM BROM 0.5MG/2.5ML NEB SCH ×4 (02:20→19:30)
[2020-10-21] MEDS: ALBUTEROL 2.5 MG/3 ML NEB SOL NEB SCH ×4 (02:20→19:30)
[2020-10-21] MEDS ORDERED: WATER FOR INJ,STERILE 10 ML IM PRN (04:32)
[2020-10-21] MEDS: METHYLPREDNISOLONE 125 MG INJ IV SCH ×2 (06:00)
[2020-10-21] MEDS ORDERED: METHYLPREDNISOLONE 125 MG INJ ONE (06:43)
[2020-10-21] MEDS: INSULIN -REGULAR HUMAN 50 UNIT/0.5 ML ML SQ SCH (07:30)
[2020-10-21] MEDS ORDERED: IPRATROPIUM BROM 0.5MG/2.5ML ONE ×3 (07:56→19:42)
[2020-10-21] MEDS ORDERED: ALBUTEROL 2.5 MG/3 ML NEB SOL ONE ×3 (07:56→19:42)
[2020-10-21] MEDS ORDERED: ENOXAPARIN 60 MG/0.6 ML SQ ONE (08:13)
[2020-10-21] MEDS ORDERED: ENOXAPARIN 100 MG/ML SYR SQ ONE (08:13)
[2020-10-21] MEDS ORDERED: METHYLPREDNISOLONE 40 MG INJ IV SCH (11:00)
[2020-10-21 11:25] LABS: Arterial Blood Carboxyhemoglob 1.4 % (0-1.5); Blood Gas Oxyhemoglobin 93.4 % (94-97); Blood O2 Saturation 95.5 % (92-98.5)
[2020-10-21] MEDS: D5 0.9 NS 1,000 ML IV SCH (11:34)
[2020-10-21 13:54] LABS: BUN Blood Urea Nitrogen 18 mg/dL (7-18); Glucose Level 141 mg/dL (74-106); Potassium 4.6 mmol/L (3.5-5.1); Sodium Level 143 mmol/L (136-145)
[2020-10-21 13:56] LABS: Bicarbonate 41 mmol/L (21-32)
--- NOTE | 2020-10-21 13:58 | P.PN ---
Subjective Date of Service: 10/21/20 Chief Complaint: Altered mental Patient is more calm and interactive today. She is tolerating the BiPAP. PCO2 has decreased to 77. Physical Examination - Vital Signs Temperature: 98 F Blood Pressure: 138/73 Pulse: 73 Respirations: 22 Pulse Ox (%): 96 - Physical Exam General: In no apparent distress, Obese (Morbidly obese), Other (Awake) HEENT: Other (BiPAP) Respiratory: Diminished Cardiovascular: Regular rate/rhythm, Normal S1 S2 Gastrointestinal: Soft and benign, Non-distended, No tenderness Musculoskeletal: No swelling, No tenderness Integumentary: No rashes Neurological: Normal strength at 5/5 x4 extr Assessment And Plan - Current Problems (Diagnosis) (1) Acute on chronic respiratory failure with hypoxia and hypercapnia Current Visit: Yes Status: Acute (2) Obesity hypoventilation syndrome Current Visit: No Status: Acute (3) COPD exacerbation Onset Date: 05/30/16 Current Visit: No Status: Chronic (4) Hypertension Onset Date: 03/20/17 Current Visit: No Status: Chronic Qualifiers: Hypertension type: essential hypertension Qualified Code(s): I10 - Essential (primary) hypertension (5) Obstructive sleep apnea Onset Date: 03/20/17 Current Visit: No Status: Chronic (6) Metabolic encephalopathy Current Visit: Yes Status: Acute (7) Chronic anemia Current Visit: Yes Status: Acute - Plan Continue BiPAP as tolerated Continue IV Solu-Medrol and scheduled bronchodilators. She is on empiric IV Levaquin. Pulmonary input appreciated. IV fluid maintenance-with D5 normal saline. Start feeding as tolerated. Monitor CBC and blood chemistry.
[2020-10-21] MEDS: METHYLPREDNISOLONE 40 MG INJ IV SCH (16:37)
[2020-10-21] MEDS ORDERED: METHYLPREDNISOLONE 40 MG INJ ONE (16:44)
[2020-10-21] MEDS: NICOTINE 14 MG/PAT TD SCH (20:36)
[2020-10-21] MEDS ORDERED: NICOTINE 14 MG/PAT TD ONE (21:43)
[2020-10-22] MEDS: METHYLPREDNISOLONE 40 MG INJ IV SCH ×3 (01:00→21:03)
[2020-10-22] MEDS ORDERED: IPRATROPIUM BROM 0.5MG/2.5ML ONE ×3 (01:24→13:02)
[2020-10-22] MEDS: ALBUTEROL 2.5 MG/3 ML NEB SOL NEB SCH ×4 (01:25→20:30)
[2020-10-22] MEDS ORDERED: ALBUTEROL 2.5 MG/3 ML NEB SOL ONE ×3 (01:25→13:02)
[2020-10-22] MEDS: IPRATROPIUM BROM 0.5MG/2.5ML NEB SCH ×4 (01:25→20:30)
[2020-10-22] MEDS ORDERED: METHYLPREDNISOLONE 40 MG INJ ONE ×2 (05:19→09:09)
[2020-10-22 06:10] LABS: Absolute Lymphocytes (CBC) 0.9 K/uL (0.7-4.9); Basophils % 0.1 % (0-1.3); Hematocrit 31.6 % (36.0-45.0); Lymphocytes % 14.3 % (15.3-44.8); MPV 7.6 fL (7.6-11.3); RBC Red Blood Cell Count 3.65 M/uL (3.86-4.86)
[2020-10-22 06:24] LABS: BUN Blood Urea Nitrogen 21 mg/dL (7-18); Glucose Level 105 mg/dL (74-106); Potassium 3.6 mmol/L (3.5-5.1); Sodium Level 143 mmol/L (136-145)
[2020-10-22 06:25] LABS: Bicarbonate 41 mmol/L (21-32)
--- NOTE | 2020-10-22 08:32 | RAD REPORT ---
EXAM DESCRIPTION: Nel Single View10/22/2020 6:20 am CLINICAL HISTORY: Chest pain COMPARISON: October 11 FINDINGS: Right lung base is hazy. Remainder the lungs appear Clear of acute infiltrate. The heart is normal size IMPRESSION: Right base is hazy probably a mild pneumonia
[2020-10-22] MEDS ORDERED: POTASSIUM CL SA 10 MEQ TAB PO ONE ×2 (09:00→09:09)
[2020-10-22] MEDS: NICOTINE 14 MG/PAT TD SCH (09:00)
[2020-10-22] MEDS ORDERED: ENOXAPARIN 100 MG/ML SYR SQ ONE (09:09)
[2020-10-22] MEDS ORDERED: ENOXAPARIN 60 MG/0.6 ML SQ ONE (09:10)
--- NOTE | 2020-10-22 11:18 | P.PN ---
Subjective Date of Service: 10/22/20 Chief Complaint: respiratory failure Subjective: Improving His doing well she was extubated she developed post extubation agitation but she was managed on BiPAP she is doing much better today very alert responsive as remember what happened to her was found to have altered mental status she is now on BiPAP cooperative Review of Systems General: Weakness Respiratory: Shortness of Breath Physical Examination - Vital Signs Temperature: 97.8 F Blood Pressure: 112/56 Pulse: 75 Respirations: 24 Pulse Ox (%): 98 - Physical Exam General: Alert, In no apparent distress, Oriented x3 Respiratory: Clear to auscultation bilaterally, Diminished Cardiovascular: No edema, Normal pulses Assessment & Plan - Problems (Diagnosis) (1) Acute and chronic respiratory failure ([id number]) Onset Date: 03/05/17 Current Visit: No Status: Acute Plan: Patient admitted with respiratory failure presumed Diamox start on some IV fluids continue with bronchodilators reduce dose of prednisone rule out pulmonary embolism continue full anticoagulation advice patient to use her home noninvasive ventilator maintain sats around 88 90% possible discharge tomorrow Qualifiers: Respiratory failure complication: hypoxia and hypercapnia Qualified Code(s): J96.21 - Acute and chronic respiratory failure with hypoxia; J96.22 - Acute and chronic respiratory failure with hypercapnia
[2020-10-22] MEDS: clonazePAM 0.5 MG TAB PO PRN ×2 (11:35→21:03)
[2020-10-22] MEDS ORDERED: clonazePAM 0.5 MG TAB ONE (12:11)
--- NOTE | 2020-10-22 12:40 | P.PN ---
Subjective Date of Service: 10/22/20 Chief Complaint: respiratory failure Patient is awake and alert. She is tolerating oxygen by nasal cannula. She has no complain. Physical Examination - Vital Signs Temperature: 97.8 F Blood Pressure: 112/56 Pulse: 75 Respirations: 24 Pulse Ox (%): 98 - Physical Exam General: Alert, In no apparent distress, Oriented x3, Obese Neck: JVD not distended Respiratory: Diminished Cardiovascular: No edema, Regular rate/rhythm, Normal S1 S2 Gastrointestinal: Soft and benign, Non-distended Musculoskeletal: No swelling, No tenderness Integumentary: No rashes Neurological: Other (No focal motor deficit.) Assessment And Plan - Current Problems (Diagnosis) (1) Acute on chronic respiratory failure with hypoxia and hypercapnia Current Visit: Yes Status: Acute (2) Obesity hypoventilation syndrome Current Visit: No Status: Acute (3) COPD exacerbation Onset Date: 05/30/16 Current Visit: No Status: Chronic (4) Hypertension Onset Date: 03/20/17 Current Visit: No Status: Chronic Qualifiers: Hypertension type: essential hypertension Qualified Code(s): I10 - Essential (primary) hypertension (5) Obstructive sleep apnea Onset Date: 03/20/17 Current Visit: No Status: Chronic (6) Metabolic encephalopathy Current Visit: Yes Status: Acute (7) Chronic anemia Current Visit: Yes Status: Acute - Plan Continue BiPAP and oxygen by nasal cannula as tolerated Continue IV Solu-Medrol and scheduled bronchodilators. Antibiotics discontinued Dr. Do is following. CTA thorax to rule out pulmonary embolism is requested. IV fluid maintenance-with D5 normal saline. Feeding as tolerated. Monitor CBC and blood chemistry.
--- NOTE | 2020-10-22 13:33 | RAD REPORT ---
EXAM DESCRIPTION: CT - Chest For Pe Angio - 10/22/2020 1:09 pm CLINICAL HISTORY: Chest pain COMPARISON: 2018 TECHNIQUE: Dynamically enhanced axial 3 mm thick images of the chest were obtained during administra tion of <100> mL Isovue 370 IV contrast. Coronal and oblique reconstruction images were generated and reviewed. Exam utilizes a protocol for optimal evaluation of pulmonary arterial tree. Maximum intensity projections 3D imaging was utilized All CT scans are performed using dose optimization technique as appropriate and may include automated exposure control or mA/KV adjustment according to patient size. FINDINGS: Some of the images are degraded by motion artifact. The opacification of pulmonary arteries is suboptimal. No gross central pulmonary embolus seen. Aberrant right subclavian artery A thoracic aortic aneurysm is not noted. Small pleural effusions. A pericardial effusion is not seen. A lung consolidation is not present. Mild right lower lobe atelectasis IMPRESSION: No gross central pulmonary embolus Small pleural effusions with mild right lower lobe atelectasis
[2020-10-22] MEDS: acetaZOLAMIDE 250 MG TAB PO SCH ×2 (16:30→21:04)
[2020-10-22] MEDS ORDERED: NACHLORIDE 0.45% 1,000 ML IV ONE (16:33)
[2020-10-22] MEDS: NACHLORIDE 0.45% 1,000 ML IV SCH (16:45)
[2020-10-22] MEDS ORDERED: acetaZOLAMIDE 250 MG TAB ONE (17:12)
[2020-10-23] MEDS: NACHLORIDE 0.45% 1,000 ML IV SCH (00:24)
[2020-10-23] MEDS: ALBUTEROL 2.5 MG/3 ML NEB SOL NEB SCH ×4 (01:40→20:00)
[2020-10-23] MEDS: IPRATROPIUM BROM 0.5MG/2.5ML NEB SCH ×4 (01:40→20:00)
[2020-10-23 05:51] LABS: Absolute Lymphocytes (CBC) 0.6 K/uL (0.7-4.9); Basophils % 0.1 % (0-1.3); Hematocrit 31.6 % (36.0-45.0); Lymphocytes % 13.7 % (15.3-44.8); MPV 7.5 fL (7.6-11.3); RBC Red Blood Cell Count 3.63 M/uL (3.86-4.86)
[2020-10-23 06:03] LABS: BUN Blood Urea Nitrogen 16 mg/dL (7-18); Bicarbonate 38 mmol/L (21-32); Glucose Level 206 mg/dL (74-106); Phosphorus 3.6 mg/dL (2.5-4.9); Potassium 4.3 mmol/L (3.5-5.1); Sodium Level 139 mmol/L (136-145)
[2020-10-23] MEDS: acetaZOLAMIDE 250 MG TAB PO SCH ×2 (08:38→21:07)
[2020-10-23] MEDS: METHYLPREDNISOLONE 40 MG INJ IV SCH ×2 (08:38→21:07)
[2020-10-23] MEDS: NICOTINE 14 MG/PAT TD SCH (08:38)
--- NOTE | 2020-10-23 12:49 | P.PN ---
Subjective Date of Service: 10/23/20 Chief Complaint: respiratory failure Patient is doing well feels very weak apparently she took melatonin prior to admission may have precipitated respiratory failure Review of Systems General: Weakness Respiratory: Shortness of Breath Physical Examination - Vital Signs Temperature: 97.9 F Blood Pressure: 129/73 Pulse: 67 Respirations: 24 Pulse Ox (%): 95 - Physical Exam General: Alert, Oriented x3, Moderate distress Respiratory: Clear to auscultation bilaterally, Expiratory wheezes Gastrointestinal: Normal bowel sounds, Soft and benign - Studies Microbiology Data (last 24 hrs): 10/19/20 12:20 Blood - Blood Aerobic Blood Culture - Final Staphylococcus Simulans 10/19/20 12:20 Blood - Blood Blood Culture Gram Stain - Final 10/19/20 12:20 Blood - Blood Anaerobic Blood Culture - Final Staphylococcus Simulans 10/19/20 12:20 Blood - Blood Gram Stain - Final Assessment & Plan - Problems (Diagnosis) (1) Acute and chronic respiratory failure ([id number]) Onset Date: 03/05/17 Current Visit: No Status: Acute Plan: Patient is doing much better rating have noninvasive ventilator feels very weak physical therapy console possible discharge tomorrow morning bicarbonate is declined I have instructed patient not to use melatonin which may have precipitated her respiratory failure was only change in medication patient does take Klonopin daily bicarb level is decline titrate patient to maintain sats around 90% discharge tomorrow on prednisone 10 mg twice a day for 2 weeks will do a telephone visit in a week or so continue with bronchodilators Qualifiers: Respiratory failure complication: hypoxia and hypercapnia Qualified Code(s ): J96.21 - Acute and chronic respiratory failure with hypoxia; J96.22 - Acute and chronic respiratory failure with hypercapnia
--- NOTE | 2020-10-23 14:26 | P.PN ---
Subjective Date of Service: 10/23/20 Chief Complaint: respiratory failure Patient is awake and alert. She has been tolerating oxygen by nasal cannula. She complained of generalized weakness. Physical Examination - Vital Signs Temperature: 97.9 F Blood Pressure: 129/73 Pulse: 67 Respirations: 24 Pulse Ox (%): 95 - Physical Exam General: Alert, In no apparent distress, Oriented x3, Obese HEENT: Mucous membr. moist/pink Neck: JVD not distended Respiratory: Diminished (Bilateral) Cardiovascular: No edema, Regular rate/rhythm, Normal S1 S2 Gastrointestinal: Normal bowel sounds, Soft and benign, No tenderness Musculoskeletal: No swelling, No tenderness Integumentary: No rashes Neurological: Normal speech, Normal strength at 5/5 x4 extr, Cranial nerves 3-12 intact - Studies Microbiology Data (last 24 hrs): 10/19/20 12:20 Blood - Blood Aerobic Blood Culture - Final Staphylococcus Simulans 10/19/20 12:20 Blood - Blood Blood Culture Gram Stain - Final 10/19/20 12:20 Blood - Blood Anaerobic Blood Culture - Final Staphylococcus Simulans 10/19/20 12:20 Blood - Blood Gram Stain - Final Assessment And Plan - Current Problems (Diagnosis) (1) Acute on chronic respiratory failure with hypoxia and hypercapnia Current Visit: Yes Status: Acute (2) Obesity hypoventilation syndrome Current Visit: No Status: Acute (3) COPD exacerbation Onset Date: 05/30/16 Current Visit: No Status: Chronic (4) Hypertension Onset Date: 03/20/17 Current Visit: No Status: Chronic Qualifiers: Hypertension type: essential hypertension Qualified Code(s): I10 - Essential (primary) hypertension (5) Obstructive sleep apnea Onset Date: 03/20/17 Current Visit: No Status: Chronic (6) Metabolic encephalopathy Current Visit: Yes Status: Acute (7) Chronic anemia Current Visit: Yes Status: Acute - Plan Continue BiPAP and oxygen by nasal cannula as tolerated Continue IV Solu-Medrol and scheduled bronchodilators. Antibiotics discontinued Dr. Do is following. CTA thorax to rule out pulmonary embolism: No PE. IV fluid discontinued. Patient is feeding well. Seen by nephrology, and started on Diamox for metabolic alkalosis. Monitor CBC and blood chemistry. PT to evaluate.
[2020-10-23] MEDS: CEPACOL LOZENGES PO PRN ×2 (18:35→22:53)
[2020-10-24] MEDS: IPRATROPIUM BROM 0.5MG/2.5ML NEB SCH ×3 (01:55→13:36)
[2020-10-24] MEDS: ALBUTEROL 2.5 MG/3 ML NEB SOL NEB SCH ×3 (01:55→13:36)
[2020-10-24 04:48] LABS: Potassium 4.6 mmol/L (3.5-5.1)
[2020-10-24] MEDS: NICOTINE 14 MG/PAT TD SCH (08:53)
[2020-10-24] MEDS: acetaZOLAMIDE 250 MG TAB PO SCH (08:53)
[2020-10-24] MEDS: CEPACOL LOZENGES PO PRN (09:01)
[2020-10-24] MEDS: METHYLPREDNISOLONE 40 MG INJ IV SCH (09:01)
[2020-10-24 12:01] VITALS: BP 135/63; TEMP 98.1
[2020-10-24 14:33] VITALS: O2SAT 96
--- NOTE | 2020-10-24 22:01 | P.DS ---
Admission Date: 10/19/20 Discharge Date: 10/24/20 Disposition: ROUTINE DISCHARGE Discharge Condition: FAIR Reason for Admission: respiratory failure Procedures: CTA Chest (10/22): no PE, small pleural effusions with mild right lower lobe atelectasis Problem List: Acute on chronic respiratory failure with hypoxia and hypercapnia secondary to COPD acute on chronic COPD Exacerbation end stage COPD Obesity hypoventilation syndrome HTN VIVEK Acute metabolic encephalopathy anemia of chronic disease Brief History of Present Illness: 60-year-old morbidly obese woman recently hospitalized for hypercarbic respiratory failure was brought to the emergency department unresponsive. EMS was called because patient was not arousable. Patient noted to have low oxygen saturation. She was bagged on the way to the ER. Arterial blood gas done in the emergency department demonstrated pCO2 of 220. Patient was intubated. Chest x-ray demonstrated mild interstitial opacities bilaterally. Patient was sedated and intubated and could not provide any history. She is admitted for further management. Hospital Course: Patient was admitted and treated with IV Solumedrol and bronchodilators. Initially covered with empiric antibiotics. Pulmonology was consulted, patient was extubated, antibiotics were discontinued. CTA chest was negative for PE. Patient slowly improved and was discharged home on oxygen and to continue her non-invasive ventilator at home. She is to f/u with Dr. Do in 1 week. She wwas discharged with 2 weeks of prednisone. She was noted to have elevated bicarb which improved with BIPAP, Diamox, and holding home lasix. Vital Signs/Physical Exam: Temp Pulse Resp BP Pulse Ox 98.1 F 68 16 135/63 93 10/24/20 12:00 10/24/20 12:10/24/20 12:00 10/24/20 12:10/24/20 12:00 General: Alert, In no apparent distress, Oriented x3 HEENT: Sclerae nonicteric Respiratory: Diminished Cardiovascular: No edema, Regular rate/rhythm Gastrointestinal: Soft and benign, No tenderness Musculoskeletal: No tenderness Integumentary: No rashes Neurological: Normal speech, Normal affect Laboratory Data at Discharge: WBC 4.70 K/uL (4.3-10.9) D 10/23/20 05:21 Hgb 9.7 g/dL (12.0-15.0) L 10/23/20 05:21 Hct 31.6 % (36.0-45.0) L 10/23/20 05:21 Plt Count 229 K/uL (152-406) 10/23/20 05:21 PT 11.1 SECONDS (9.5-12.5) 10/19/20 12:05 INR 0.94 10/19/20 12:05 Sodium 143 mmol/L (136-145) 10/24/20 04:11 Potassium 4.6 mmol/L (3.5-5.1) 10/24/20 04:11 BUN 17 mg/dL (7-18) 10/24/20 04:11 Creatinine 0.81 mg/dL (0.55-1.3) 10/24/20 04:11 Glucose 212 mg/dL (74-106) H 10/24/20 04:11 Phosphorus 3.6 mg/dL (2.5-4.9) 10/23/20 05:21 Magnesium 2.6 mg/dL (1.8-2.4) H 10/19/20 12:05 Total Bilirubin 0.3 mg/dL (0.2-1.0) 10/20/20 04:10 AST 9 U/L (15-37) L 10/20/20 04:10 ALT 8 U/L (12-78) L 10/20/20 04:10 Alkaline Phosphatase 79 U/L (45-117) 10/20/20 04:10 Troponin I 0.03 ng/mL (0.0-0.045) 10/20/20 15:29 Home Medications: Albuterol Sulfate [Proair Hfa] 1 puff IH QID PRN 10/23/20 Atorvastatin Calcium [Lipitor*] 20 mg PO BEDTIME 10/23/20 Gabapentin 300 mg PO BID 10/23/20 Roflumilast [Daliresp*] 500 mcg PO DAILY 10/23/20 Spironolactone [Aldactone*] 25 mg PO DAILY 10/23/20 Umeclidinium Brm/Vilanterol Tr [Anoro Ellipta 62.5-25 Mcg INH] 1 puff IN DAILY 10/23/20 acetaZOLAMIDE [Diamox*] 250 mg PO DAILY 10/23/20 carvediloL [Carvedilol] 6.25 mg PO DAILY 02/01/21 clonazePAM [Klonopin*] 0.5 mg PO DAILY PRN 10/23/20 predniSONE [Deltasone*] 10 mg PO BID 14 Days #28 tab 10/24/20 New Medications: predniSONE [Deltasone*] 10 mg PO BID 14 Days #28 tab Physician Discharge Instructions: Your breathing difficulty was related to your severe COPD and some slight fluid. You improved with steroids, oxygen, and a few extra doses of your diamox. You are discharged home with 2 weeks of prednisone 10mg twice a day for your COPD. Please continue Diamox at home, and stop taking your Lasix (furosemide) until you follow up with Dr Do / or your PCP. Continue with your inhalers and noninvasive ventilator at home. Diet: AHA Activity: Bedrest Followup: Isai Do MD [ACTIVE - CAN ADMIT] - NONE,NONE [Primary Care Provider] - Time spent managing pt's care (in minutes): 40
== END 2020-10-24 15:57 | disposition home or self-care (01) | DRG 208 ==
LOC: ER 11:44 → ERHOLD 15:12 → 2ND 10-22 17:56
PROVIDERS: ADMIT Internal Medicine; ATTEND Hospitalist
PROC: 5A1935Z Respiratory Ventilation, Less than 24 Consecutive Hours (ICD-10-PCS; principal; 2020-10-19)
PROC: 0BH17EZ Insertion of Endotracheal Airway into Trachea, Via Natural or Artificial Opening (ICD-10-PCS; 2020-10-19)
DX: J96.21 Acute and chronic respiratory failure with hypoxia (principal); G93.41 Metabolic encephalopathy; Z68.43 Body mass index [BMI] 50.0-59.9, adult; E66.2 Morbid (severe) obesity with alveolar hypoventilation; J44.1 Chronic obstructive pulmonary disease with (acute) exacerbation; E87.3 Alkalosis; J96.22 Acute and chronic respiratory failure with hypercapnia; K21.9 Gastro-esophageal reflux disease without esophagitis; D63.8 Anemia in other chronic diseases classified elsewhere; I10 Essential (primary) hypertension; E78.5 Hyperlipidemia, unspecified; Z79.52 Long term (current) use of systemic steroids; Z79.899 Other long term (current) drug therapy; Z90.49 Acquired absence of other specified parts of digestive tract; Z88.5 Allergy status to narcotic agent; Z20.822 Contact with and (suspected) exposure to COVID-19
CPT/HCPCS: 0240U; 31500; 36415; 71045; 71275; 80048; 80053; 80076; 81003; 81015; 82805; 82947; 83605; 83735; 83880; 84100; 84145; 84443; 84484; 85025; 85610; 87040; 87077; 87186; 87205; 93005; 94002; 94003; 94660; 94760; 97116; 97161; 97530; 99291; 99292; J0330; J1650; J2250; J2704; J2920; J2930; J3010; J3486; J7030; Q9967

== ENCOUNTER 2020-11-17 14:29 | Inpatient (IN) | payer OTHER ==
--- OUTSIDE RECORDS SUMMARY | 2020-11-17 14:33 | XMS REPORT | Continuity of Care Document ---
:[address] [facility] t Address [address] [place] [address] Care Team Providers Name Role Phone David CARDONA, M Attending Clinician Mykel DIETRICH Attending Clinician Christian DIETRICH S Attending Clinician Ronaldo DIETRICH, G Attending Clinician Emelina DIETRICH Attending Clinician Jordin DIETRICH Attending Clinician Sung DIETRICH, Moreno Attending Clinician Enriqueta COON Attending Clinician Kartik CARDONA Attending Clinician Gita DIETRICH Attending Clinician Doctor Unassigned, Name Attending Clinician Unavailable KELLY Attending Clinician Unavailable Jordin DIETRICH Admitting Clinician Gita DIETRICH Admitting Clinician KELLY Admitting Clinician Unavailable Problems Condition Condition Condition Status Onset Resolution Last Treating Co mments Source Name Details Category Date Date Treatment Clinician Date Tobacco Tobacco Disease Active [facility] St abuse abuse 02-25 [facility] 00 [place] Hypoxemia Hypoxemia Disease Active [facility] 00 [place] COPD COPD Disease Active [facility] St exacerbati exacerbati 605 Pema kes - on on 00:00: Medical 00 [place] Acute Acute Disease Active [facility] hypercapni hypercapni 6-05 Pema kes - c c 00:00: Medical respirator respirator 00 Ce nter y failure y failure Allergies, Adverse Reactions, Alerts This patient has no known allergies or adverse reactions. Social History Social Habit Start Date Stop Date Quantity Comments Source Sex Assigned At [facility] Medications Ordered Filled Start Stop Current Ordering Indication Dosage Frequency Signature Comments Components Source Medication Medication Date Date Medication? Clinician (SIG) Name Name predniSONE Yes [facility] 4 [facility] - 10 [facility] 00:00: daily for Medical tablet 00 4 days, Center then 3 tablets daily for 4 days, then 2 tablets daily until tablets run out.. azithromyci Yes 250mg QD Take [address] [facility] [address] [facility] 6[facility]07 tablet [facility] - (ZITHROMAX) 00:00: (250 mg Med ical 250 MG 00 total) by Center tablet mouth daily Take by mouth as directed.. Procedures This patient has no known procedures. Encounters Start End Encounter Admission Attending Care Care Encounter Source Date/Time Date/Time Type Type Clinicians Facility Department ID 2020-11-17 2020-11-17 Transition Molly Hernandez [id number] 00:00:00 00:00:00 of Care Viviana Chiu [id number] [place] [id number] 2020-11-12 2020-11-16 Hospital Jeronimo [place] 1.2.840.1 [id number] 18:33:00 16:20:00 Encounter Julian Gonzales [id number] [facility] [id number] Sammie Tarango [phone] Nash Brenner [address] Almaraz Sloanesanjiv Nash Chu Almaraz Moreno 2020-11-14 2020-11-14 [facility] [id number] 00:00:00 00:00:00 samuel, SPECIALTY [id number] [facility] [id number] [place] AT [phone] [facility] [place] [facility] 2020-11-13 2020-11-13 Transition Molly Verdugo [id number] 00:00:00 00:00:00 of Care Lizbeth Chiu [id number] [place] [id number] 2020-11-07 2020-11-11 [facility] Jeronimo [place]ogue [facility] 1.2.840.1 [id number] 06:48:00 14:50:00 Encounter Adán Pelayo [place] [id number] [place] [id number] Adán Pelayo Maybeury [id number] 2020-07-12 2020[facility].2[facility]840.114 [id number] 11:56:24 23:59:00 Encounter yonion, Pediatric [id number] [place] and [id number] Adult [id number] Primary [facility] 2020-07-12 2020-07-12 Office [facility] 1.2.840.114 [id number] 11:00:10 13:58:54 Visit njumon, Pediatric [id number] [place] and [id number] Adult [id number] Primary 198 Care Clinic 2020-07-03 2020-07-03 Orders Doctor THI [id number] 00:00:00 00:00:00 Only Unassigned, VIRGILIO [id number] [facility] [id number] Results Test Description Test Time Test [...] NOT 1092) ACCURATE CRE ATININE CLEARANCE IN [place] EDICTING GLOMERULAR FILT RATION RATE. ESTIMATED GFR [...] 0-0 (BEAKER) (test code = 413) 0.00POCT-GLUCOSE [id number] 17:50:00 Test Item Value Reference Range Interpretation Comments POC-GLUCOSE METER 118 mg/dL 70-110 H TESTED AT [place] [address] ([facility]) (test code = KISHA Pabon [facility] 1538) [id number] POCT-GLUCOSE [id number] 11:59:00 Test Item Value Reference Range Interpretation Comments POC-GLUCOSE METER 247 mg/dL 70-110 H TESTED AT [place] [address] ([facility]) (test code = KISHA Pabon [facility] 1538) [id number] POCT-GLUCOSE [id number] 07:54:00 Test Item Value Reference Range Interpretation Comments POC-GLUCOSE METER 141 mg/dL 70-110 H TESTED AT [place] [address] ([facility]) (test code = [facility] Pepper [facility] 1538) [id number] CBC W/PLT COUNT & AUTO [id number] 03:45:00 Test Item Value Reference Range Interpretation [...] K/ L 0.00-0.20 (test code = 417) [id number] 03:29:00 Test Item Value Reference Range Interpretation Comments MAGNESIUM (BEAKER) 1.8 mg/dL 1.6-2.6 Specimen slightly (test code = 627) hemolyzed BASIC METABOLIC [id number] 03:29:00 Test Item Value Reference Range Interpretation [...] NOT APPLICABLE FOR DIALYSIS PATIEN TS. POCT-GLUCOSE [id number] 00:05:00 Test Item Value Reference Range Interpretation Comments POC-GLUCOSE METER 117 mg/dL 70-110 H TESTED AT [facility] 6720 ([facility]) (test code = [facility] [place] 1538) [id number] POCT-GLUCOSE [id number] 18:17:00 Test Item Value Reference Range Interpretation Comments POC-GLUCOSE METER 141 mg/dL 70-110 H TESTED AT [facility] 6720 ([facility]) (test code = [facility] 1538) [id number] CREATINE KINASE (CK), TOTAL AND [id number] 15:43:00 Test Item Value Reference Range Interpretation Comments CREATINE KINASE TOTAL (BEAKER) 31 U/L 29-200 (test code = 380) CREATINE KINASE-MB (BEAKER) (test 1.3 ng/mL 0.0-6.6 code = 750) CREATINE KINASE-MB INDEX (BEAKER) 4.2 % (test code = 395) Effective 08/09/2014: CK-MB Reference Range ChangeNew: 0.0-6.6 Previous: 0.0-4.9CK-MB Reference Range:<6.7 Normal6.7-10.0 Borderline>10.0 AbnormalBLOOD GAS, [id number] 15:26:00 Test Item Value Reference Range Interpretation [...] (test code = 1819) 35.0 % POCT-GLUCOSE [id number] 11:45:00 Test Item Value Reference Range Interpretation Comments POC-GLUCOSE METER 122 mg/dL 70-110 H TESTED AT [facility] 6720 ([facility]) (test code = [place] 1538) [id number] CREATINE KINASE (CK), TOTAL AND [id number] 10:29:00 Test Item Value Reference Range Interpretation Comments CREATINE KINASE TOTAL ([facility]) 31 U/L 29-200 (test code = 380) CREATINE KINASE-MB ([facility]) (test 1.5 ng/mL 0.0-6.6 code = 750) CREATINE KINASE-MB INDEX ([facility]) 4.8 % (test code = 395) Effective 08/09/2014: CK-MB Reference Range ChangeNew: 0.0-6.6 Previous: 0.0-4.9CK-MB Reference Range:<6.7 Normal6.7-10.0 Borderline>10.0 AbnormalTROPONIN [id number] 10:29:00 Test Item Value Reference Range Interpretation Comments TROPONIN I ([facility]) (test code = 397) < ng/mL 0.00-0.03 [...] renalfailure, acidosis, acute neurological disease, and persistent tachyarrhythmia.[id number] 10:22:00 Test Item Value Reference Range Interpretation Comments PARTIAL THROMBOPLASTIN TIME 22.5 seconds 22.5-36.0 (AKER) (test code = 760) PROTHROMBIN [id number] 10:21:00 Test Item Value Reference Range Interpretation Comments PROTIME (BEAKER) (test code = 12.4 seconds 11.7-14.7 759) INR ([facility]) (test code = 370) 0.9 <=5.9 RECOMMENDED COUMADIN/WARFARIN INR THERAPY RANGESSTANDARD DOSE: 2.0 - 3.0 Includes: PROPHYLAXIS forvenous thrombosis, systemic embolization; TREATMENT for venous thrombosis and/or pulmonary embolus.HIGH RISK: Target INR is 2.5-3.5 for patients with mechanical heart valves.BLOOD GAS, [id number] 10:17:00 Test Item Value Reference Range Interpretation [...] (test code = 1819) 40.0 % PLATELET [id number] 10:13:00 Test Item Value Reference Range Interpretation Comments PLATELET COUNT (BEAKER) (test 111 K/CU MM 150-430 L code = 756)
[2020-11-17] MEDS ORDERED: LEVALBUTEROL 1.25 MG/3 ML NEB ONE (15:13)
--- NOTE | 2020-11-17 15:13 | RAD REPORT ---
EXAM DESCRIPTION: RAD - Chest Single View - 11/17/2020 3:05 pm CLINICAL HISTORY: SOB Chest pain. COMPARISON: Chest Single View dated 10/22/2020; Chest Single View dated 10/19/2020; Chest Single View dated 09/27/2020; Chest Single View dated 09/26/2020; Chest For Pe Angio dated 10/22/2020 FINDINGS: Portable technique limits examination quality. Mild interstitial pulmonary edema suspected. The heart is upper limit normal in size. Tortuous thorac ic aorta. IMPRESSION: Mild CHF.
[2020-11-17 15:14] LABS: Absolute Lymphocytes (CBC) 2.4 K/uL (0.7-4.9); Basophils % 0.6 % (0-1.3); Hematocrit 38.3 % (36.0-45.0); Lymphocytes % 23.2 % (15.3-44.8); MPV 7.6 fL (7.6-11.3); RBC Red Blood Cell Count 4.46 M/uL (3.86-4.86)
[2020-11-17 15:18] LABS: Protime INR 0.88
[2020-11-17] MEDS ORDERED: METHYLPREDNISOLONE 125 MG INJ ONE (15:18)
[2020-11-17 15:36] LABS: ALT/SGPT 25 U/L (12-78); AST/SGOT 13 U/L (15-37); Albumin 3.5 g/dL (3.4-5.0); Alkaline Phosphatase 67 U/L (45-117); BUN Blood Urea Nitrogen 11 mg/dL (7-18); Bilirubin Direct 0.1 mg/dL (0-0.2); Bilirubin Total 0.4 mg/dL (0.2-1.0); Glucose Level 114 mg/dL (74-106); Magnesium 2.3 mg/dL (1.8-2.4); NT PRO-BNP 293 pg/mL (<125); Potassium 3.8 mmol/L (3.5-5.1); Protein, Total 6.8 g/dL (6.4-8.2); Sodium Level 143 mmol/L (136-145); Troponin (Emerg Dept Use Only) 0.02 ng/mL (0.0-0.045)
[2020-11-17 15:39] LABS: Bicarbonate 45 mmol/L (21-32)
--- NOTE | 2020-11-17 16:06 | ER ---
Nurse's Notes [facility] Name: Vikki Zamudio Age: 60 yrs Sex: Female : 1960 Arrival Date: 11/17/2020 Time: 14:37 Bed 4 Private MD: Diagnosis: COPD Exacerbation, CHF, Hypoxia (76% on 4 L NC) Presentation: 11/17 14:37 Acuity: LIZETH 2 ss 14:37 Chief complaint: Patient's son or daughter states: "she just got out of [facility] yesterday, ss and she was taking her to a doctor's appointment and couldn't get out of the car." Pt reports that her O2 was "in the 50's" on 5 L NC. Coronavirus screen: Client denies travel out of the [place] in the last 14 days. Ebola Screen: Patient denies exposure to infectious person. Patient denies travel to an Ebola-affected area in the 21 days before illness onset. 14:37 Method Of Arrival: Wheelchair ss 15:21 Initial Sepsis Screen: Does the patient meet any 2 criteria? RR > 20 per min. No. jd3 Patient's initial sepsis screen is negative. Does the patient have a suspected source of infection? No. Patient's initial sepsis screen is negative. Risk Assessment: Do you want to hurt yourself or someone else? Patient reports no desire to harm self or others. Onset of symptoms was November 17, 2020. Triage Assessment: 15:21 Respiratory: Onset: The symptoms/episode began/occurred this morning, the patient has jd3 moderate shortness of breath. Historical: - Allergies: 15:06 Codeine; ss - PMHx: 15:06 CHF; Hypertension; High Cholesterol; GERD; COPD; Hypothyroidism; Panic Attacks; Sleep ss Apnea; - Immunization history:: Adult Immunizations unknown. - Social history:: Smoking status: Patient reports the use of cigarette tobacco products. Screenin:08 Abuse screen: Denies threats or abuse. Denies injuries from another. Nutritional ss screening: No deficits noted. Tuberculosis screening: Never had TB. 15:21 Fall Risk IV access (20 points). Ambulatory Aid- Crutches/Cane/Walker (15 pts). Gait- jd3 Weak (10 pts.). Mental Status- Oriented to own ability (0 pts). Total Resendiz Fall Scale indicates High Risk Score (45 or more points). Fall prevention measures have been instituted. Side Rails Up X 2 Placed Close to Nursing Station Frequent Obs/Assessments Occuring. Assessment: 14:50 Reassessment: BiPAP mask placed on patient at 30% FiO2. Pt reports feeling much better. ss O2 saturation now 100%. 15:19 General: Appears in no apparent distress. uncomfortable, Behavior is calm, cooperative, jd3 appropriate for age. Pain: Denies pain. Neuro: Level of Consciousness is awake, alert, obeys commands, Oriented to person, place, time, situation. Cardiovascular: Denies chest pain, Capillary refill < 3 seconds Patient's skin is warm and dry. Rhythm is irregular. Respiratory: Reports shortness of breath at rest Airway is patent Respiratory effort is labored, shallow, Respiratory pattern is symmetrical, tachypnea Breath sounds are diminished bilaterally. GI: No signs and/or symptoms were reported involving the gastrointestinal system. : No signs and/or symptoms were reported regarding the genitourinary system. EENT: No signs and/or symptoms were reported regarding the EENT system. Derm: Skin is intact, Skin is dry, Skin is normal, Skin temperature is warm. Musculoskeletal: Circulation, motion, and sensation intact. Range of motion: intact in all extremities. 16:50 Reassessment: Patient and/or family updated on plan of care and expected duration. Pain jd3 level reassessed. respirations appear more relaxed. pt resting in bed. Patient states feeling better. 18:07 Reassessment: Patient appears in no apparent distress at this time. No changes from jd3 previously documented assessment. Patient and/or family updated on plan of care and expected duration. Pain level reassessed. awaiting admission. 19:21 Reassessment: nurse will call me back to receive report. mg2 Vital Signs: 14:37 BP 133 / 88; Pulse 87; Resp 28; Temp 97.5(TE); Pulse Ox 76% on 4 lpm NC; Weight 121.56 ss kg; Pain 8/10; 15:08 Pulse Ox 100% on 30% BiPAP; ss 15:26 BP 111 / 68; Pulse 74; Resp 25 S; Pulse Ox 100% on BiPAP; jd3 15:54 BP 115 / 56; Pulse 71; Resp 23; Pulse Ox 96% ; jl7 16:49 BP 114 / 75; Pulse 77; Resp 26 S; Pulse Ox 99% on BiPAP; jd3 18:08 BP 104 / 88; Pulse 73; Resp 17 S; Pulse Ox 97% on R/A; jd3 19:46 BP 134 / 78; Pulse 72; Resp 22; Temp 97.8; Pulse Ox 95% on 30% BiPAP; mg2 ED Course: 14:37 Patient arrived in ED. ss 14:38 Triage completed. ss 14:40 Andrea Willson MD is Attending Physician. kdr 14:59 Nestor Holt, DULCE is Primary Nurse. jd3 15:05 XRAY Chest (1 view) In Process Unspecified. EDMS 15:06 Arm band placed on left wrist. ss 15:08 Patient has correct armband on for positive identification. Placed in gown. Bed in low ss position. Call light in reach. Side rails up X 1. night monitor on. Pulse ox on. NIBP on. 15:18 Initial lab(s) drawn, by me, sent to lab. Missed attempt(s): 20 gauge in left mt antecubital area. 15:19 Inserted saline lock: 22 gauge in right wrist, using aseptic technique. jd3 16:01 Chris Enriquez MD is Hospitalizing Provider. kdr 19:20 No provider procedures requiring assistance completed. Patient admitted, IV remains in mg2 place. Administered Medications: 14:57 Drug: Xopenex (3) 1.25 mg Route: Inhalation; jl7 15:50 Follow up: Response: No adverse reaction jd3 15:19 Drug: SOLU-Medrol 125 mg Route: IVP; Site: right wrist; jd3 16:15 Follow up: Response: No adverse reaction jd3 Outcome: 16:05 Decision to Hospitalize by Provider. kdr 19:46 Admitted to Med/surg accompanied by tech, room 214, with oxygen, with chart, Report mg2 called to DULCE Hughes 19:46 Condition: improved 19:46 Instructed on the need for admit, Demonstrated understanding of instructions. 19:57 Patient left the ED. mg2 Signatures: Dispatcher [employer] EDMS Andrea Willson MD MD kdr Jaimie Fontana RN RN Clinton Love RN RN [facility] Jessa Elmore ri Nestor Holt RN RN jd3 García Ramirez, RN RN mg2
--- NOTE | 2020-11-17 16:06 | EDPHYS ---
Physician Documentation [facility] Name: Vikki Zamudio Age: 60 yrs Sex: Female : 1960 Arrival Date: 11/17/2020 Time: 14:37 Bed 4 Private MD: ED Physician Andrea Willson Historical: - Allergies: 11/17 15:06 Codeine; ss - PMHx: 15:06 CHF; Hypertension; High Cholesterol; GERD; COPD; Hypothyroidism; Panic Attacks; Sleep ss Apnea; - Immunization history:: Adult Immunizations unknown. - Social history:: Smoking status: Patient reports the use of cigarette tobacco products. Exam: 18:52 ECG was reviewed by the Attending Physician. kdr Vital Signs: 14:37 BP 133 / 88; Pulse 87; Resp 28; Temp 97.5(TE); Pulse Ox 76% on 4 lpm NC; Weight 121.56 ss kg; Pain 8/10; 15:08 Pulse Ox 100% on 30% BiPAP; ss 15:26 BP 111 / 68; Pulse 74; Resp 25 S; Pulse Ox 100% on BiPAP; jd3 15:54 BP 115 / 56; Pulse 71; Resp 23; Pulse Ox 96% ; jl7 16:49 BP 114 / 75; Pulse 77; Resp 26 S; Pulse Ox 99% on BiPAP; jd3 18:08 BP 104 / 88; Pulse 73; Resp 17 S; Pulse Ox 97% on R/A; jd3 19:46 BP 134 / 78; Pulse 72; Resp 22; Temp 97.8; Pulse Ox 95% on 30% BiPAP; mg2 MDM: 16:05 Patient medically screened. kdr 11/17 14:41 Order name: Basic Metabolic Panel kdr 11/17 14:41 Order name: CBC with Diff kdr 11/17 14:41 Order name: LFT's kdr 11/17 14:41 Order name: Magnesium; Complete Time: 15:54 kdr 11/17 14:41 Order name: NT PRO-BNP; Complete Time: 15:54 kdr 11/17 14:41 Order name: PT-INR; Complete Time: 15:54 kdr 11/17 14:41 Order name: Troponin (emerg Dept Use Only); Complete Time: 15:54 kdr 11/17 14:42 Order name: Basic Metabolic Panel; Complete Time: 15:54 EDMS 11/17 14:42 Order name: CBC with Automated Diff; Complete Time: 15:54 [facility] 11/17 14:42 Order name: Liver (Hepatic) Function; Complete Time: 15:54 [facility] 11/17 15:57 Order name: COVID-19 : Document "Date of Symptom Onset" if Symptomatic. 11/17 15:58 Order name: CORONAVIRUS [facility] 11/17 16:18 Order name: Basic Metabolic Panel [facility] 11/17 16:18 Order name: Basic Metabolic Panel [facility] 11/17 14:41 Order name: XRAY Chest (1 view); Complete Time: 15:54 [facility] 11/17 14:41 Order name: EKG; Complete Time: 14:42 [facility] 11/17 14:41 Order name: Cardiac monitoring; Complete Time: 14:55 [facility] 11/17 14:41 Order name: EKG - Nurse/Tech; Complete Time: 15:17 [facility] 11/17 14:41 Order name: IV Saline Lock; Complete Time: 15:19 [facility] 11/17 16:18 Order name: Low Sodium [facility] 11/17 16:18 Order name: CBC with Automated Diff [facility] 11/17 16:18 Order name: CBC with Automated Diff [facility] 11/17 16:18 Order name: NT PRO-BNP [facility] 11/17 16:18 Order name: NT PRO-BNP [facility] 11/17 16:18 Order name: Troponin I [facility] 11/17 16:18 Order name: Troponin I [facility] 11/17 16:18 Order name: Troponin I [facility] 11/17 17:29 Order name: SARS-COV-2 RT PCR [facility] 11/17 14:41 Order name: Labs collected and sent; Complete Time: 15:17 [facility] 11/17 14:41 Order name: O2 Per Protocol; Complete Time: 14:55 [facility] 11/17 14:41 Order name: O2 Sat Monitoring; Complete Time: 14:55 kdr EC:52 Rate is 100 beats/min. Rhythm is irregular, Sinus arrythmia with PACs. QRS [place] is kdr Normal. [place] interval is normal. QRS interval is normal. Clinical impression: NSR w/ Non-specific ST/T Changes. Administered Medications: 14:57 Drug: Xopenex (3) 1.25 mg Route: Inhalation; jl7 15:50 Follow up: Response: No adverse reaction jd3 15:19 Drug: SOLU-Medrol 125 mg Route: IVP; Site: right wrist; jd3 16:15 Follow up: Response: No adverse reaction jd3 Disposition: 11/17/20 16:05 Hospitalization ordered by Chris Enriquez for Inpatient Admission. Preliminary diagnosis is COPD Exacerbation, CHF, Hypoxia (76% on 4 L NC). - Bed requested for Telemetry/MedSurg (Inpatient). - Status is Inpatient Admission. mg2 - Condition is Fair. - Problem is an acute exacerbation. - Symptoms have improved. Addendum: 11/23/2020 07:32 Addendum: CC: Shortness of breath HPI: ADALI patient was just released from [facility] yesterday for pneumonia and was taking her to his doctor when she became more short of breath and so she came to the ED. She reports that her sat was in the 50's on 5 L of O2. ROS: No fever, chills or weight loss, Eyes: no visual changes or c/o, Neck: no pain or injury, CV: no CP or palpitations, Resp: SOB with mild cough and congestion, no sputum, Abd: no n/v/d or pain, Back, no pain or injury, : no pain or bleeding, Ms/Ext: no pain, injury or swelling, tingling, Skin, no pain, injury, skin turgor good, Neuro: CN grossly intact and no other deficits, Psych: Appropriate for age, Allergy/Immunology:no rashes or other s/s, Endo: no evidence of polyuria, polydypsia, temperature control or other s/s, EXAM: WDWN WF mild distress, Head/Face: no injury pain or deformity, Eyes: PERRLA, ENT: no pain, injury or bleeding, Neck: no pain, injury or deformity, full ROM, Chest/Axilla:no pain, injury or deformity, CV: no rubs, gallops or murmurs, regular rate, Resp: mildly labored breathing and dyspnea, rhonchi and rales throughout, Abd/GI:soft, NT, BS present in all quads and normal, Back< no injury or deformity, full ROM, Ms/Ext:no injury or deformity, FROM, distal pulses good and equal, Skin: No rashes, ecchymosis, skin turgor good, Neuro: CN grossly intact, no other neuro deficits, Psych: appropriate for age, no SI/HI, no depression, MDM: All VS and nursing notes reviewed. [facility] patient and/or family were counseled on the results and need for admission. The patient was admitted in stable condition. They were happy with the care received and the plan for admission for further evaluation and treatment. Signatures: Dispatcher [employer] EDMS Dayanna Almanzar, RN RN dw Andrea Willson MD MD [facility] Jaimie Fontana RN RN ss Clinton Love RN RN jl7 Nestor Holt RN RN jd3 García Ramirez, RN RN mg2 Corrections: (The following items were deleted from the chart) 11/17 18:49 16:05 Hospitalization Ordered by Chris Enriquez MD for Inpatient Admission. Preliminary dw diagnosis is COPD Exacerbation, CHF, Hypoxia (76% on 4 L NC). Bed requested for Telemetry/MedSurg (Inpatient). Status is Inpatient Admission. Condition is Fair. Problem is an acute exacerbation. Symptoms have improved. kdr 19:57 18:49 11/17/2020 16:05 Hospitalization Ordered by Chris Enriquez MD for Inpatient mg2 Admission. Preliminary diagnosis is COPD Exacerbation, CHF, Hypoxia (76% on 4 L NC). Bed requested for Telemetry/MedSurg (Inpatient). Status is Inpatient Admission. Condition is Fair. Problem is an acute exacerbation. Symptoms have improved. dw
[2020-11-17] MEDS ORDERED: ALBUTEROL 2.5 MG/3 ML NEB SOL NEB PRN (16:10)
[2020-11-17] MEDS ORDERED: IPRATROPIUM BROM 0.5MG/2.5ML NEB PRN (16:10)
--- NOTE | 2020-11-17 17:08 | P.HP ---
Certification for Inpatient Patient admitted to: Inpatient With expected LOS: >2 Midnights Patient will require the following post-hospital care: Half-Way Practitioner: I am a practitioner with admitting privileges, knowledge of patient current condition, hospital course, and medical plan of care. Services: Services provided to patient in accordance with Admission requirements found in Title 42 Section 412.3 of the Code of Federal Regulations Patient History Date of Service: 11/17/20 Primary Care Provider: Mina Reason for admission: Copd exacerbation. History of Present Illness: Patient of mine with a history of severe copd. The patient has been in and out of the hospital the last few months. Stated she started smoking again in Jun. She was just discharged from [facility] yesterday. The patient has went home. Denies being around any smoking or tobacco products. She denies any fumes as well. However she found that her spO2 was in the 50's and called ems. She was brought to the ER where her pulse ox was 77 on 4 lts NC and the patient was started on a bipap. Allergies codeine [Codeine] Adverse Reaction (Mild, Verified 09/16/20 21:07) itch Home medications list reviewed: Yes Home Medications: Albuterol Sulfate [Proair Hfa] 1 puff IH QID PRN 10/23/20 Atorvastatin Calcium [Lipitor*] 20 mg PO BEDTIME 10/23/20 Gabapentin 300 mg PO BID 10/23/20 Roflumilast [Daliresp*] 500 mcg PO DAILY 10/23/20 Spironolactone [Aldactone*] 25 mg PO DAILY 10/23/20 Umeclidinium Brm/Vilanterol Tr [Anoro Ellipta 62.5-25 Mcg INH] 1 puff IN DAILY 10/23/20 acetaZOLAMIDE [Diamox*] 250 mg PO DAILY 10/23/20 carvediloL [Carvedilol] 6.25 mg PO DAILY 10/23/20 clonazePAM [Klonopin*] 0.5 mg PO DAILY PRN 10/23/20 predniSONE [Deltasone*] 10 mg PO BID 14 Days #28 tab 10/24/20 - Past Medical/Surgical History Diabetic: No -: Severe COPD, oxygen/steroid dependent,Pulmonary-Dr. Do -: Mild pulmonary hypertension -: Hypothyroidism -: Bipolar disorder -: Hypertension -: Chronic low back pain -: Obstructive sleep apnea -: Tobacco abuse -: HLD -: GERD -: Appendectomy -: Psychosocial/ Personal History: She lives with a partner. She has 1 child. She is currently disabled. - Family History Father -: Heart disease, Hypertension, Diabetes Notes: from CHF Mother -: Heart disease, Hypertension, Diabetes Notes: from CHF Brother -: Diabetes Sister -: Heart disease, Diabetes Notes: from CHF - Social History Alcohol use: Yes CD- Drugs: No Caffeine use: Yes Review of Systems 10-point ROS is otherwise unremarkable Respiratory: Shortness of Breath Physical Examination - Physical Exam General: Alert, In no apparent distress HEENT: Atraumatic, PERRLA, Mucous membr. moist/pink, EOMI, Sclerae nonicteric Neck: Supple, 2+ carotid pulse no bruit, No LAD, Without JVD or thyroid abnormality Respiratory: Clear to auscultation bilaterally, Rhonchi/gurgles Cardiovascular: Regular rate/rhythm, Normal S1 S2 Gastrointestinal: Normal bowel sounds, No tenderness Musculoskeletal: No tenderness Integumentary: No rashes Neurological: Normal gait, Normal speech, Normal strength at 5/5 x4 extr, Normal tone, Normal affect Lymphatics: No axilla or inguinal lymphadenopathy - Studies Laboratory Data (last 24 hrs) 11/17/20 15:00: PT 10.1, INR 0.88 11/17/20 15:00: WBC 10.20, Hgb 11.9 L, Hct 38.3, Plt Count 217 11/17/20 15:00: Sodium 143, Potassium 3.8, BUN 11, Creatinine 0.54 L, Glucose 114 H, Magnesium 2.3, Total Bilirubin 0.4, AST 13 L, ALT 25, Alkaline Phosphatase 67 Assessment and Plan - Problems (Diagnosis) (1) Acute respiratory failure Onset Date: 02/18/18 Current Visit: No Status: Acute Plan: Will admit for bipap. Steroids, and breathing treatment. will consult Dr Antonio. Qualifiers: Respiratory failure complication: hypoxia Qualified Code(s): J96.01 - Acute respiratory failure with hypoxia (2) COPD (chronic obstructive pulmonary disease) Current Visit: No Status: Acute Plan: residential copd. She seems to be declining. Has come to our hospital just 3 weeks Ago. This would be her third admission this month for copd Qualifiers: COPD type: chronic bronchitis (3) Obstructive sleep apnea Onset Date: 03/20/17 Current Visit: No Status: Chronic Plan: continue bipap (4) Steroid dependent Onset Date: 01/19/18 Current Visit: No Status: Chronic Plan: usually on prednisone to prevent copd (5) Tobacco abuse Onset Date: 03/05/17 Current Visit: No Status: Chronic Plan: She states she is not currently smoking. Does not want a nicotine patch. Discharge Plan: Home Plan to discharge in: Greater than 2 days - Advance Directives Does patient have a Living Will: No Does patient have a Durable POA for Healthcare: No - Code Status/Comfort Care Code Status Assessed: Yes Code Status: Full Code Physician Review: Patient Assessed, Agree with Above Assessment and Plan Critical Care: No Time Spent Managing Pts Care (In Minutes): 35
[2020-11-17 20:40] VITALS: BMI 39.6
[2020-11-18] MEDS: METHYLPREDNISOLONE 40 MG INJ IV SCH ×3 (01:18→16:53)
[2020-11-18 06:03] LABS: Absolute Lymphocytes (CBC) 0.7 K/uL (0.7-4.9); Basophils % 0.2 % (0-1.3); Hematocrit 38.1 % (36.0-45.0); Lymphocytes % 9.8 % (15.3-44.8); MPV 7.9 fL (7.6-11.3); RBC Red Blood Cell Count 4.42 M/uL (3.86-4.86)
[2020-11-18 06:17] LABS: BUN Blood Urea Nitrogen 16 mg/dL (7-18); Bicarbonate 41 mmol/L (21-32); Glucose Level 141 mg/dL (74-106); NT PRO-BNP 167 pg/mL (<125); Potassium 4.6 mmol/L (3.5-5.1); Sodium Level 141 mmol/L (136-145)
--- NOTE | 2020-11-18 07:55 | EKG ---
Test Date: 2020-11-17 Test Time: 15:13:15 Corrugator: ANKIT MEASUREMENT RESULTS: Intervals: Rate: 100 MD: 134 QRSD: 76 QT: 362 QTc: 466 [place]: P: 35 MD: 134 QRS: 60 T: 72 INTERPRETIVE STATEMENTS: Sinus rhythm with premature supraventricular complexes and fusion complexes Otherwise normal ECG Compared to ECG 10/19/2020 11:49:59 Atrial premature complex(es) now present Fusion complex(es) now present Electronically Signed On 11-18-20 07:54:12 LEASING DIRECTOR by Selvin Mar
[2020-11-18] MEDS: ASPIRIN EC 81 MG TAB PO SCH (09:39)
[2020-11-18] MEDS: ARFORMOTEROL TARTRATE 15 MCG/2 ML VIAL.NEB NEB SCH ×2 (09:56→20:05)
[2020-11-18] MEDS ORDERED: ACETAZOLAMIDE 500 MG IV IV ONE (09:59)
[2020-11-18 10:14] LABS: Blood Morphology Comment NOT SEEN (NOT SEEN); Platelet Estimate ADEQ; White Blood Cell Scan OK (OK)
[2020-11-18] MEDS: APIXABAN 2.5 MG TABLET PO SCH ×2 (10:55→20:01)
[2020-11-18] MEDS: ROFLUMILAST 500 MCG TABLET PO SCH (10:56)
[2020-11-18] MEDS ORDERED: acetaZOLAMIDE 250 MG TAB PO ONE (11:00)
--- NOTE | 2020-11-18 11:33 | P.PN ---
Subjective Date of Service: 11/18/20 Primary Care Provider: Mina Chief Complaint: Copd exacerbation. Subjective: No new changes Review of Systems 10-point ROS is otherwise unremarkable Respiratory: Shortness of Breath Physical Examination - Vital Signs Temperature: 97.5 F Blood Pressure: 150/75 Pulse: 84 Respirations: 26 Pulse Ox (%): 90 - Physical Exam General: Alert, In no apparent distress HEENT: Atraumatic, PERRLA, EOMI Neck: Supple, JVD not distended Respiratory: Clear to auscultation bilaterally, Normal air movement Cardiovascular: Regular rate/rhythm, Normal S1 S2 Gastrointestinal: Normal bowel sounds, No tenderness Musculoskeletal: No tenderness Integumentary: No rashes Neurological: Normal speech, Normal tone, Normal affect Lymphatics: No axilla or inguinal lymphadenopathy - Studies Laboratory Data (last 24 hrs) 11/17/20 15:00: PT 10.1, INR 0.88 11/17/20 15:00: WBC 10.20, Hgb 11.9 L, Hct 38.3, Plt Count 217 11/17/20 15:00: Sodium 143, Potassium 3.8, BUN 11, Creatinine 0.54 L, Glucose 114 H, Magnesium 2.3, Total Bilirubin 0.4, AST 13 L, ALT 25, Alkaline Phosphatase 67 Assessment & Plan - Problems (Diagnosis) (1) Acute respiratory failure Onset Date: 02/18/18 Current Visit: No Status: Acute Plan: Will admit for bipap. Steroids, and breathing treatment. will consult Dr Antonio. 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 She seems to be declining. Has come to our hospital just 3 weeks Ago. This would be her third admission this month for copd 11/12/20 Patient has been admitted 5-6 times in the past month. States she is not sure which meds to take at home. Per Dr. Antonio she does well in the hospital and gets in trouble at home. Qualifiers: COPD type: chronic bronchitis (3) Obstructive sleep apnea Onset Date: 03/20/17 Current Visit: No Status: Chronic Plan: continue bipap (4) Steroid dependent Onset Date: 01/19/18 Current Visit: No Status: Chronic Plan: usually on prednisone to prevent copd (5) Tobacco abuse Onset Date: 03/05/17 Current Visit: No Status: Chronic Plan: She states she is not currently smoking. Does not want a nicotine patch. (6) Palliative care encounter Current Visit: Yes Status: Acute Plan: Patient has spent most of the last 3 months in the hospitals. The patient usually goes home and comes back in a few days. The patient is doing well in the hospital however will get in trouble as soon as we discharge. Had a discussion with her this morning. It would be best is she goes to a NH where her medications can be managed. (She gets confused when her oxygen drops). She can also go into hospice. I have discussed that her copd is end stage. She does not want to be intubated. Which is appropriate. I do not think she would ever make it off the vent. She can not live without the bipap on 14/04. Which is a very difficult way to live. Will consult hospice and social work coordinator for placement. Have spent 20 min discussing with the patient. Discharge Plan: Home Plan to discharge in: Greater than 2 days - Code Status/Comfort Care Code Status Assessed: Yes Code Status: Do Not Intubate Comfort Measures: Palliative Care Physician Review: Patient Assessed, Agree with Above Assessment and Plan Critical Care: No Time Spent Managing Pts Care (In Minutes): 35
[2020-11-18] MEDS: IPRATROPIUM BROM 0.5MG/2.5ML NEB SCH ×2 (14:33→20:05)
[2020-11-18] MEDS ORDERED: ALBUTEROL 2.5 MG/3 ML NEB SOL NEB PRN (16:00)
[2020-11-18] MEDS: ATORVASTATIN 20 MG TAB PO SCH (20:01)
[2020-11-18] MEDS: clonazePAM 0.5 MG TAB PO PRN (20:10)
[2020-11-19] MEDS: METHYLPREDNISOLONE 40 MG INJ IV SCH ×2 (00:11→08:57)
[2020-11-19] MEDS: IPRATROPIUM BROM 0.5MG/2.5ML NEB SCH ×4 (01:05→19:50)
[2020-11-19] MEDS: ARFORMOTEROL TARTRATE 15 MCG/2 ML VIAL.NEB NEB SCH ×2 (08:36→19:50)
[2020-11-19] MEDS: APIXABAN 2.5 MG TABLET PO SCH (08:56)
[2020-11-19] MEDS: acetaZOLAMIDE 250 MG TAB PO SCH (08:56)
[2020-11-19] MEDS: ASPIRIN EC 81 MG TAB PO SCH (08:57)
[2020-11-19] MEDS: ROFLUMILAST 500 MCG TABLET PO SCH (08:57)
[2020-11-19] MEDS: SPIRONOLACTONE 25 MG TABLET PO SCH (08:58)
[2020-11-19] MEDS ORDERED: carvediloL 6.25 MG TAB PO SCH (09:00)
[2020-11-19] MEDS: ACETAMINOPHEN 500 MG TAB PO PRN ×2 (09:09→16:29)
--- NOTE | 2020-11-19 11:23 | P.CNS ---
Date of Consult: 11/19/20 Primary Care Provider: Mina Chief Complaint: Copd exacerbation. History of Present Illness: patient is 60 years of age with terminal COPD admitted with worsening dyspnea is this is a 4th hospitalization this morning patient is doing well very alert responsive back to her baseline compliant with the therapy at home denies any cough complains of some neck pain Allergies codeine [Codeine] Adverse Reaction (Mild, Verified 09/16/20 21:07) itch Home Medications: Albuterol Sulfate [Proair Hfa] 1 puff IH QID PRN 10/23/20 Atorvastatin Calcium [Lipitor*] 20 mg PO BEDTIME 10/23/20 Gabapentin 300 mg PO BID 10/23/20 Roflumilast [Daliresp*] 500 mcg PO DAILY 10/23/20 Spironolactone [Aldactone*] 25 mg PO DAILY 10/23/20 Umeclidinium Brm/Vilanterol Tr [Anoro Ellipta 62.5-25 Mcg INH] 1 puff IN DAILY 10/23/20 acetaZOLAMIDE [Diamox*] 250 mg PO DAILY 10/23/20 carvediloL [Carvedilol] 6.25 mg PO DAILY 10/23/20 clonazePAM [Klonopin*] 0.5 mg PO DAILY PRN 10/23/20 predniSONE [Deltasone*] 10 mg PO BID 14 Days #28 tab 10/24/20 - Past Medical/Surgical History Diabetic: No -: Severe COPD, oxygen/steroid dependent,Pulmonary-Dr. Do -: Mild pulmonary hypertension -: Hypothyroidism -: Bipolar disorder -: Hypertension -: Chronic low back pain -: Obstructive sleep apnea -: Tobacco abuse -: HLD -: GERD -: Appendectomy -: Psychosocial/ Personal History: She lives with a partner. She has 1 child. She is currently disabled. - Family History Father Medical History: Heart disease, Hypertension, Diabetes Notes: from CHF Mother Medical History: Heart disease, Hypertension, Diabetes Notes: from CHF Brother Medical History: Diabetes Sister Medical History: Heart disease, Diabetes Notes: from CHF - Social History Smoking Status: Unknown if ever smoked Alcohol use: Yes CD- Drugs: No Caffeine use: Yes Review of Systems 10-point ROS is otherwise unremarkable General: Weakness Respiratory: Shortness of Breath Physical Examination Temp Pulse Resp BP Pulse Ox 96.9 F 64 22 H 121/58 L 95 11/19/20 08:00 11/19/20 08:58 11/19/20 08:00 11/19/20 08:58 11/19/20 08:00 General: Alert, In no apparent distress, Oriented x3 Respiratory: Clear to auscultation bilaterally, Diminished Cardiovascular: No edema, Regular rate/rhythm Gastrointestinal: Soft and benign - Problems (1) Acute exacerbation of chronic obstructive airways disease Onset Date: 05/09/15 Current Visit: No Status: Acute Plan: patient is 60 years of age with terminal COPD admitted with worsening dyspnea she is back at her baseline confused about her medications I have instructed her for a relatives to bring a list of for all her medications and the noninvasive ventilator here to the hospital so that I can make some changes patient is stable titrate sat to 90% do ABGs Dc coreg doubt DVT or pulmonary embolism D- dimer is less than 500 Dc Eliquis change to Lovenox for DVT prophylaxis
[2020-11-19 12:17] LABS: BUN Blood Urea Nitrogen 20 mg/dL (7-18); Bicarbonate 35 mmol/L (21-32); Glucose Level 165 mg/dL (74-106); Potassium 4.3 mmol/L (3.5-5.1); Sodium Level 139 mmol/L (136-145)
[2020-11-19 12:32] LABS: Blood Gas Oxyhemoglobin 88.7 % (94-97); Blood O2 Saturation 90.6 % (92-98.5)
[2020-11-19 12:33] LABS: Arterial Blood Carboxyhemoglob 1.4 % (0-1.5)
--- NOTE | 2020-11-19 13:14 | P.PN ---
Subjective Date of Service: 11/19/20 Primary Care Provider: Mina Chief Complaint: Copd exacerbation. Subjective: Improving Patient off the bipap. Comfortable on 4lts nc Review of Systems 10-point ROS is otherwise unremarkable Respiratory: Shortness of Breath Physical Examination - Vital Signs Temperature: 96.9 F Blood Pressure: 121/58 Pulse: 64 Respirations: 22 Pulse Ox (%): 95 - Physical Exam General: Alert, In no apparent distress HEENT: Atraumatic, PERRLA, EOMI Neck: Supple, JVD not distended Respiratory: Clear to auscultation bilaterally, Diminished Cardiovascular: Regular rate/rhythm, Normal S1 S2 Gastrointestinal: Normal bowel sounds, No tenderness Musculoskeletal: No tenderness Integumentary: No rashes Neurological: Normal speech, Normal tone, Normal affect Lymphatics: No axilla or inguinal lymphadenopathy Assessment & Plan - Problems (Diagnosis) (1) COPD (chronic obstructive pulmonary disease) Current Visit: No Status: Chronic 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 Has come to our hospital just 3 weeks Ago. This would be her third admission this month for copd 11/19 She is improving. Will consider alf placement. She does well on a stable regiment of medications. However she goes home and gets confused on her meds. Dr. Antonio wishes to review her meds and her home non invasive machine. See if we can get her stable. Get her to a NH for a few weeks to get used to a new medication regiment. Qualifiers: COPD type: chronic bronchitis (2) Acute respiratory failure Onset Date: 02/18/18 Current Visit: No Status: Acute Plan: Will admit for bipap. Steroids, and breathing treatment. will consult Dr Antonio. Qualifiers: Respiratory failure complication: hypoxia Qualified Code(s): J96.01 - Acute respiratory failure with hypoxia (3) Obstructive sleep apnea Onset Date: 03/20/17 Current Visit: No Status: Chronic Plan: continue bipap (4) Steroid dependent Onset Date: 01/19/18 Current Visit: No Status: Chronic Plan: usually on prednisone to prevent copd (5) Tobacco abuse Onset Date: 03/05/17 Current Visit: No Status: Chronic Plan: She states she is not currently smoking. Does not want a nicotine patch. (6) Palliative care encounter Current Visit: Yes Status: Acute Plan: Patient has spent most of the last 3 months in the hospitals. The patient usually goes home and comes back in a few days. The patient is doing well in the hospital however will get in trouble as soon as we discharge. Had a discussion with her this morning. It would be best is she goes to a NH where her medications can be managed. (She gets confused when her oxygen drops). She can also go into hospice. I have discussed that her copd is end stage. She does not want to be intubated. Which is appropriate. I do not think she would ever make it off the vent. She can not live without the bipap on 14/04. Which is a very difficult way to live. Will consult hospice and social services director for placement. Have spent 20 min discussing with the patient. Discharge Plan: [facility] Plan to discharge in: 24 Hours - Code Status/Comfort Care Code Status Assessed: No Code Status: Do Not Intubate Physician Review: Patient Assessed, Agree with Above Assessment and Plan Critical Care: No Time Spent Managing Pts Care (In Minutes): 25
[2020-11-19] MEDS ORDERED: TRAMADOL HCL 50 MG TAB PO PRN (17:11)
[2020-11-19] MEDS: predniSONE 20 MG TAB PO SCH (20:04)
[2020-11-19] MEDS: clonazePAM 0.5 MG TAB PO PRN (20:04)
[2020-11-19] MEDS: ATORVASTATIN 20 MG TAB PO SCH (20:04)
[2020-11-20] MEDS: IPRATROPIUM BROM 0.5MG/2.5ML NEB SCH ×4 (01:10→20:00)
[2020-11-20 06:01] LABS: Absolute Lymphocytes (CBC) 0.9 K/uL (0.7-4.9); Basophils % 0.1 % (0-1.3); Hematocrit 31.5 % (36.0-45.0); Lymphocytes % 12.6 % (15.3-44.8); MPV 7.4 fL (7.6-11.3); RBC Red Blood Cell Count 3.75 M/uL (3.86-4.86)
[2020-11-20] MEDS: ARFORMOTEROL TARTRATE 15 MCG/2 ML VIAL.NEB NEB SCH ×2 (08:04→20:00)
[2020-11-20] MEDS: ENOXAPARIN 40 MG/0.4 ML SQ SCH (10:13)
[2020-11-20] MEDS: predniSONE 20 MG TAB PO SCH (10:14)
[2020-11-20] MEDS: SPIRONOLACTONE 25 MG TABLET PO SCH (10:14)
[2020-11-20] MEDS: ROFLUMILAST 500 MCG TABLET PO SCH (10:14)
[2020-11-20] MEDS: acetaZOLAMIDE 250 MG TAB PO SCH (10:14)
[2020-11-20] MEDS: ASPIRIN EC 81 MG TAB PO SCH (10:14)
--- NOTE | 2020-11-20 12:41 | P.PN ---
Subjective Date of Service: 11/20/20 Primary Care Provider: Mina Chief Complaint: Copd exacerbation. Subjective: Improving (Patient is doing much better she is more alert responsive) Review of Systems General: Weakness Respiratory: Shortness of Breath Physical Examination - Vital Signs Temperature: 97.7 F Blood Pressure: 146/66 Pulse: 50 Respirations: 26 Pulse Ox (%): 92 - Physical Exam General: Alert, Oriented x3 Neck: Supple Respiratory: Expiratory wheezes Cardiovascular: No edema, Regular rate/rhythm Assessment & Plan - Problems (Diagnosis) (1) Acute exacerbation of chronic obstructive airways disease Onset Date: 05/09/15 Current Visit: No Status: Acute Plan: Patient is doing much better CO2 satisfactory on 2 L nasal cannula oxygen she is alert oriented responsive cooperative labs reviewed patient is now is back at her baseline ovoid Lasix continue with spironolactone and Diamox reduce prednisone 10 mg twice a day patient to try her noninvasive ventilator while in the hospital evaluate for home are possible alf ovoid gabapentin the causing some problems use tramadol p.r.n. instead for her neck pain Physician Review: Patient Assessed, Agree with Above Assessment and Plan
--- NOTE | 2020-11-20 16:27 | P.PN ---
Subjective Date of Service: 11/20/20 Primary Care Provider: Mina Chief Complaint: Copd exacerbation. Patient is stable on NC. she states that she is not approved for a prison the director social welfare states she simply refused. Review of Systems 10-point ROS is otherwise unremarkable Physical Examination - Vital Signs Temperature: 97.7 F Blood Pressure: 146/66 Pulse: 50 Respirations: 26 Pulse Ox (%): 92 - Physical Exam General: Alert, In no apparent distress HEENT: Atraumatic, PERRLA, EOMI Neck: Supple, JVD not distended Respiratory: Clear to auscultation bilaterally, Diminished Cardiovascular: Regular rate/rhythm, Normal S1 S2 Gastrointestinal: Normal bowel sounds, No tenderness Musculoskeletal: No tenderness Integumentary: No rashes Neurological: Normal speech, Normal tone, Normal affect Lymphatics: No axilla or inguinal lymphadenopathy Assessment & Plan - Problems (Diagnosis) (1) COPD (chronic obstructive pulmonary disease) Current Visit: No Status: Chronic Plan: snf copd. She seems to be declining. Has come to our hospital just 3 weeks Ago. This would be her third admission this month for copd 11/20 Ivonne is doing better. Is not likely to accept prison. Will discharge in the am. The patient will be on tramadol, spirnolactone and diamo. Will stop the gabapentin. She needs to find a pcp. Unfortuanatly I do not have a contract with her insurance Qualifiers: COPD type: chronic bronchitis (2) Acute respiratory failure Onset Date: 02/18/18 Current Visit: No Status: Acute Plan: Will admit for bipap. Steroids, and breathing treatment. will consult Dr Antonio. Qualifiers: Respiratory failure complication: hypoxia Qualified Code(s): J96.01 - Acute respiratory failure with hypoxia (3) Obstructive sleep apnea Onset Date: 03/20/17 Current Visit: No Status: Chronic Plan: continue bipap (4) Steroid dependent Onset Date: 01/19/18 Current Visit: No Status: Chronic Plan: usually on prednisone to prevent copd (5) Tobacco abuse Onset Date: 03/05/17 Current Visit: No Status: Chronic Plan: She states she is not currently smoking. Does not want a nicotine patch. (6) Palliative care encounter Current Visit: Yes Status: Acute Plan: Patient has spent most of the last 3 months in the hospitals. The patient usually goes home and comes back in a few days. The patient is doing well in the hospital however will get in trouble as soon as we discharge. Had a discussion with her this morning. It would be best is she goes to a NH where her medications can be managed. (She gets confused when her oxygen drops). She can also go into hospice. I have discussed that her copd is end stage. She does not want to be intubated. Which is appropriate. I do not think she would ever make it off the vent. She can not live without the bipap on 14/04. Which is a very difficult way to live. Will consult hospice and director social welfare for placement. Have spent 20 min discussing with the patient. Discharge Plan: Home Plan to discharge in: 24 Hours - Code Status/Comfort Care Code Status Assessed: No Physician Review: Patient Assessed, Agree with Above Assessment and Plan Critical Care: No Time Spent Managing Pts Care (In Minutes): 20
[2020-11-20] MEDS: ATORVASTATIN 20 MG TAB PO SCH (20:48)
[2020-11-20] MEDS: predniSONE 10 MG TAB PO SCH (20:48)
[2020-11-20] MEDS: clonazePAM 0.5 MG TAB PO PRN (20:51)
[2020-11-21] MEDS: IPRATROPIUM BROM 0.5MG/2.5ML NEB SCH ×2 (02:05→08:44)
[2020-11-21 06:24] LABS: Absolute Lymphocytes (CBC) 1.1 K/uL (0.7-4.9); Basophils % 0.1 % (0-1.3); Hematocrit 36.8 % (36.0-45.0); Lymphocytes % 15.1 % (15.3-44.8); MPV 7.7 fL (7.6-11.3); RBC Red Blood Cell Count 4.26 M/uL (3.86-4.86)
[2020-11-21] MEDS: ARFORMOTEROL TARTRATE 15 MCG/2 ML VIAL.NEB NEB SCH (08:44)
[2020-11-21] MEDS: ENOXAPARIN 40 MG/0.4 ML SQ SCH (09:05)
[2020-11-21] MEDS: SPIRONOLACTONE 25 MG TABLET PO SCH (09:05)
[2020-11-21] MEDS: acetaZOLAMIDE 250 MG TAB PO SCH (09:06)
[2020-11-21] MEDS: predniSONE 10 MG TAB PO SCH (09:08)
[2020-11-21] MEDS: ASPIRIN EC 81 MG TAB PO SCH (09:08)
[2020-11-21] MEDS: ROFLUMILAST 500 MCG TABLET PO SCH (09:08)
[2020-11-21 09:10] VITALS: BP 148/66
[2020-11-21 09:15] VITALS: TEMP 97
[2020-11-21 09:45] VITALS: O2SAT 95
--- NOTE | 2020-11-21 11:24 | P.DS ---
Admission Date: 11/17/20 Discharge Date: 11/21/20 Primary Care Provider: Mina Disposition: ROUTINE DISCHARGE Discharge Condition: FAIR Reason for Admission: Copd exacerbation. - Problems (1) COPD (chronic obstructive pulmonary disease) Current Visit: No Status: Chronic Qualifiers: COPD type: chronic bronchitis (2) Acute respiratory failure Onset Date: 02/18/18 Current Visit: No Status: Acute Qualifiers: Respiratory failure complication: hypoxia Qualified Code(s): J96.01 - Acute respiratory failure with hypoxia (3) Obstructive sleep apnea Onset Date: 03/20/17 Current Visit: No Status: Chronic (4) Steroid dependent Onset Date: 01/19/18 Current Visit: No Status: Chronic (5) Tobacco abuse Onset Date: 03/05/17 Current Visit: No Status: Chronic (6) Palliative care encounter Current Visit: Yes Status: Acute Brief History of Present Illness: Patient of mine with a history of severe copd. The patient has been in and out of the hospital the last few months. Stated she started smoking again in Jun. She was just discharged from [facility] yesterday. The patient has went home. Denies being around any smoking or tobacco products. She denies any fumes as well. However she found that her spO2 was in the 50's and called ems. She was brought to the ER where her pulse ox was 77 on 4 lts NC and the patient was started on a bipap. Hospital Course: Patient admitted. Improved on nursing care and regular use of her medications. Offered correction care as she seems to not be able to take care of herself at home. The patient refused. She was seen by Dr. Antonio Will send her home on daliresp, tramadol and spirnolactone. She should have the prednisone from her last admission. She has a very poor prognosis. Vital Signs/Physical Exam: Temp Pulse Resp BP Pulse Ox 97.0 F 75 22 H 148/66 H 97 11/21/20 08:00 11/21/20 09:05 11/21/20 08:00 11/21/20 09:05 11/21/20 08:00 General: Alert, In no apparent distress HEENT: Atraumatic, PERRLA, EOMI Neck: Supple, JVD not distended Respiratory: Clear to auscultation bilaterally, Diminished Cardiovascular: Regular rate/rhythm, Normal S1 S2 Gastrointestinal: Normal bowel sounds, No tenderness Musculoskeletal: No tenderness Integumentary: No rashes Neurological: Normal speech, Normal tone, Normal affect Lymphatics: No axilla or inguinal lymphadenopathy Laboratory Data at Discharge: WBC 7.10 K/uL (4.3-10.9) 11/21/20 06:07 Hgb 11.2 g/dL (12.0-15.0) L 11/21/20 06:07 Hct 36.8 % (36.0-45.0) D 11/21/20 06:07 Plt Count 201 K/uL (152-406) 11/21/20 06:07 PT 10.1 SECONDS (9.5-12.5) 11/17/20 15:00 INR 0.88 11/17/20 15:00 Sodium 139 mmol/L (136-145) 11/19/20 11:49 Potassium 4.3 mmol/L (3.5-5.1) 11/19/20 11:49 BUN 20 mg/dL (7-18) H 11/19/20 11:49 Creatinine 0.63 mg/dL (0.55-1.3) 11/19/20 11:49 Glucose 165 mg/dL (74-106) H 11/19/20 11:49 Magnesium 2.3 mg/dL (1.8-2.4) 11/17/20 15:00 Total Bilirubin 0.4 mg/dL (0.2-1.0) 11/17/20 15:00 AST 13 U/L (15-37) L 11/17/20 15:00 ALT 25 U/L (12-78) 11/17/20 15:00 Alkaline Phosphatase 67 U/L (45-117) 11/17/20 15:00 Troponin I < 0.02 ng/mL (0.0-0.045) 11/17/20 20:26 Home Medications: Albuterol Sulfate [Proair Hfa] 1 puff IH QID PRN 10/23/20 Atorvastatin Calcium [Lipitor*] 20 mg PO BEDTIME 10/23/20 Gabapentin 300 mg PO BID 10/23/20 Roflumilast [Daliresp*] 500 mcg PO DAILY 10/23/20 Spironolactone [Aldactone*] 25 mg PO DAILY 10/23/20 Umeclidinium Brm/Vilanterol Tr [Anoro Ellipta 62.5-25 Mcg INH] 1 puff IN DAILY 10/23/20 acetaZOLAMIDE [Diamox*] 250 mg PO DAILY 10/23/20 carvediloL [Carvedilol] 6.25 mg PO DAILY 10/23/20 clonazePAM [Klonopin*] 0.5 mg PO DAILY PRN 10/23/20 predniSONE [Deltasone*] 10 mg PO BID 14 Days #28 tab 10/24/20 Roflumilast [Daliresp] 500 mcg PO DAILY 90 Days #90 tablet 11/21/20 Spironolactone 25 mg PO DAILY 90 Days #90 tablet 11/21/20 Tramadol HCl [Ultram] 50 mg PO TID PRN 30 Days #60 tablet 11/21/20 New Medications: Roflumilast [Daliresp] 500 mcg PO DAILY 90 Days #90 tablet Spironolactone 25 mg PO DAILY 90 Days #90 tablet Tramadol HCl [Ultram] 50 mg PO TID PRN 30 Days #60 tablet PRN Reason: Pain Scale 8-10 (Severe) Physician Discharge Instructions: Follow up with a Family Medicine Physician of your choice: TELMA DIETRICH, MAYELA Avery [address] [place] [address] DELMA Solis O, [facility] [address] [address] ALYSIA VALLE MD [address] [facility] [address] [place] [address] JENN WALSH MD [address] [place] [address] VAN FALK MD 201 [facility], [facility] [address] [place] [address] VANNA ADAMSON MD [address] [facility] [place] [address] SHAUNA BEE MD [address] [facility] [place] [address] BLANCO CONCHIS LY [address] [facility], [address] [place] [address] RYNE CROWLEY K [address] [facility], [address] [place] [address] FAREED ARNETT KARI [address] [facility], [address] [place], [place] [id number] Diet: Regular Activity: Ad kristopher Followup: Isai Do MD [ACTIVE - CAN ADMIT] - 1 Week Time spent managing pt's care (in minutes): 30
== END 2020-11-21 12:45 | disposition home or self-care (01) | DRG 189 ==
LOC: ER 14:29 → ERHOLD 16:18 → 2ND 19:17
PROVIDERS: ADMIT Internal Medicine; ATTEND Internal Medicine
PROC: 5A09457 Assistance with Respiratory Ventilation, 24-96 Consecutive Hours, Continuous Positive Airway Pressure (ICD-10-PCS; principal; 2020-11-17)
DX: J96.01 Acute respiratory failure with hypoxia (principal); J44.1 Chronic obstructive pulmonary disease with (acute) exacerbation; I10 Essential (primary) hypertension; K21.9 Gastro-esophageal reflux disease without esophagitis; G47.33 Obstructive sleep apnea (adult) (pediatric); F17.210 Nicotine dependence, cigarettes, uncomplicated; Z79.52 Long term (current) use of systemic steroids; Z79.899 Other long term (current) drug therapy; Z90.49 Acquired absence of other specified parts of digestive tract; Z51.5 Encounter for palliative care; Z88.5 Allergy status to narcotic agent; Z66 Do not resuscitate; Z20.822 Contact with and (suspected) exposure to COVID-19
CPT/HCPCS: 36415; 71045; 80048; 80076; 82805; 83735; 83880; 84484; 85025; 85379; 85610; 93005; 94660; 94760; 96374; 99285; J1650; J2920; J2930; J7512; J7605; U0003

== ENCOUNTER 2021-02-15 08:07 | Day surgery (SDC) | payer OTHER ==
[2021-02-15] MEDS ORDERED: Ringers Lactate 1,000 ML IV ONE (08:44)
[2021-02-15] MEDS ORDERED: propofoL 200 MG/20 ML VIAL IV ONE (09:35)
[2021-02-15] MEDS ORDERED: LIDOCAINE 1% MPF 2 ML AMPULE ONE (09:35)
[2021-02-15 10:59] VITALS: TEMP 98.3; O2SAT 93
[2021-02-15 11:00] VITALS: BP 133/89
--- NOTE | 2021-02-15 20:41 | OP ---
Surgeon: Rojelio Flood MD Procedure Performed: Esophagogastroduodenoscopy. Indication For Procedure: Epigastric pain, GERD. Plan For Anesthesia: Monitored anesthesia care. Complexity: Very high due to patient's severe comorbidities including cardiac and pulmonary issues. Technique: After obtaining informed consent from the patient explaining risks and complications, the patient was placed in the left lateral position and sedation was given. From then on, the scope was advanced into the mouth and carefully guided up to the second portion of the duodenum. After the co mpletion of examination, scope and equipment were withdrawn, and procedure was terminated in a safe m louise. Findings: Esophagus: No gross lesion is seen in the upper and mid esophagus. In the distal esophag us, very small 2 cm hiatal hernia was seen. The Z-line was irregular. Biopsies were taken. Stomach: Minimal patchy erythema seen in the body and antrum. Biopsies were taken. Duodenum: The bulb and second portion appeared normal. Biopsies were taken from the second part as well to evaluate for other causes of the patient's pain. Complications: None. Tolerance To Anesthesia: Excellent. Postoperative Diagnoses: 1.Hiatal hernia. 2.Gastritis. Plan: 1.Await pathology results. 2.Continue PPI. 3.No GI cause for patient's symptoms, likely related to her cardiac and pulmonary issues. 4.No further intervention from GI at this time. Follow up in the clinic. US/MODL Voice ID: [id number] Report ID: [id number]
== END 2021-02-15 10:33 | disposition home or self-care (01) ==
LOC: OR 08:07
PROVIDERS: ATTEND Internal Medicine Gastroenterology
PROC: 0DB98ZX Excision of Duodenum, Via Natural or Artificial Opening Endoscopic, Diagnostic (ICD-10-PCS; 2021-02-15)
PROC: 0DB68ZX Excision of Stomach, Via Natural or Artificial Opening Endoscopic, Diagnostic (ICD-10-PCS; 2021-02-15)
PROC: 0DB38ZX Excision of Lower Esophagus, Via Natural or Artificial Opening Endoscopic, Diagnostic (ICD-10-PCS; 2021-02-15)
PROC: 0DJ08ZZ Inspection of Upper Intestinal Tract, Via Natural or Artificial Opening Endoscopic (ICD-10-PCS; principal; 2021-02-15 08:45)
DX: K21.00 Gastro-esophageal reflux disease with esophagitis, without bleeding (principal); K29.50 Unspecified chronic gastritis without bleeding; K44.9 Diaphragmatic hernia without obstruction or gangrene; I51.89 Other ill-defined heart diseases; Z20.822 Contact with and (suspected) exposure to COVID-19
CPT/HCPCS: 88312; 88305; 43235; 43239; U0003; J2704; J7120

== ENCOUNTER 2021-03-13 14:21 | Inpatient (IN) | payer OTHER ==
--- OUTSIDE RECORDS SUMMARY | 2021-03-13 14:24 | XMS REPORT | Continuity of Care Document ---
:1960 Author Organization [facility] Address [address] [place] [address] Care Team Providers Name Role Phone Doctor Unassigned, Name Attending Clinician Unavailable Иван Higgins MD Attending Clinician David CARDONA, M Attending Clinician Mykel DIETRICH Attending Clinician Christian DIETRICH S Attending Clinician Emelina DIETRICH Attending Clinician Jordin DIETRICH Attending Clinician Moreno Almaraz MD Attending Clinician Enriqueta COON Attending Clinician Kartik CARDONA Attending Clinician Gita DIETRICH Attending Clinician KELLY Attending Clinician Unavailable Jordin DIETRICH Admitting Clinician Gita DIETRICH Admitting Clinician KELLY Admitting Clinician Unavailable Problems Condition Condition Condition Status Onset Resolution Last Treating Co mments Source Name Details Category Date Date Treatment Clinician Date Tobacco Tobacco Disease Active [facility] St abuse [facility] 00 [place] Hypoxemia Hypoxemia Disease Active [facility] 00 [place] COPD COPD Disease Active [facility] exacerbati exacerbati 6 Pema kes - on on 00:00: Medical 00 [place] Acute Acute Disease Active [facility] hypercapni hypercapni 6- Pema kes - c c 00:00: Medical respirator respirator 00 Ce nter y failure y failure Allergies, Adverse Reactions, Alerts This patient has no known allergies or adverse reactions. Social History Social Habit Start Date Stop Date Quantity Comments Source Sex Assigned At [facility] Medications Ordered Filled Start Stop Current Ordering Indication Dosage Frequency Signature Comments Components Source Medication Medication Date Date Medication? Clinician (SIG) Name Name predniSONE Yes Take 4 [facility] (DELTASONE[facility] 6 tablets [facility] - 10 MG 00:00: daily [...] Date/Time Type Type Clinicians Facility Department ID 2021-01-25 2021-01-25 Orders Doctor NESS 1.2.840.114 [id number] 00:00:00 00:00:00 Only UnassignedVIRGILIO [id number] [place] [facility] 4.2.7.2.686 [id number] 2021-01-15 2021-01-15 Orders Doctor NESS 1.2.840.114 [id number] 00:00:00 00:00:00 Only UnassignedVIRGILIO [id number] [place] [facility] 4.2.7.2.686 [id number] 2020-11-17 2020-11-17 DEEDEE Oliva 1.2.840.114 [id number] 22 00:00:00 00:00:00 Management [place] [facility] [id number] [facility] 42.7.2.686 CENTER [id number] [facility] 2020-11-17 2020-11-17 Transition Molly Hernandez 1.2.840.114 [id number] 00:00:00 00:00:00 of Care Viviana Person Aram [id number] [place] 4.2.7.2.686 [id number] 2020-11-12 2020-11-16 [facility] Jeronimo Hogue 1.2.840.1 14 [id number] 18:33:00 16:20:00 Encounter Julian Gonzales [id number] [facility] 4.2.7.2.686 Sammie Tarango [id number] Nash Brenner [address] Almaraz MorenoNash Harris Krishna Moreno 2020-11-14 2020-11-14 Telephone [facility] 1.2.840.114 [id number] 00:00:00 00:00:00 MAXI baker [id number] [facility] 4.2.7.2.686 CENTER AT [phone] [place] [address] [place] [address] 2020-11-13 2020-11-13 Transition Molly Verdugo 1.2.840.114 [id number] 00:00:00 00:00:00 of Care Lizbeth Aram [id number] [place] 4.2.7.2.686 [id number] 2020-11-07 2020-11-11 [facility] Jeronimo Hogue [facility] 1.2.840.1 14 [id number] 06:48:00 14:50:00 Encounter Adán Pelayo [id number] Jeronimo Hogue 4.2.7.2.686 Adán Pelayo [place] [id number] 2020-07-12 2020-07-12 [facility] 1.2.840.114 [id number] 11:56:24 23:59:00 Encounter samuel, Pediatric [id number] [place] and 4.2.7.2.686 Adult [id number] Primary [address] [place] [address] Clinic 2020-07-12 2020-07-12 Office Hillary Ybarra 1.2.840.114 [id number] 11:00:10 13:58:54 Visit samuel Pediatric [id number] [place] and 4.2.7.2.686 Adult [id number] Primary [address] [place] [address] 2020-07-03 2020-07-03 Orders Doctor THI 1.2.840.114 [id number] 00:00:00 00:00:00 Only Unassigned, VIRGILIO [id number] [place] [facility] 4.2.7.2.686 [id number] Results Test Description Test Time Test [...] NOT 1092) ACCURATE CRE ATININE CLEARANCE IN [place] EDICTING GLOMERULAR FILT RATION RATE. ESTIMATED GFR IS NOT APPLICABLE FOR DIALYSIS PATIENTS. CBC (HEMOGRAM ONLY)2017-02-26 05:21:00 Test Item Value Reference Range Interpretation Comments WHITE BLOOD CELL COUNT (BEAKER) 6.4 K/ L 4.0-10.0 (test code = 775) RED BLOOD CELL COUNT (AKER) 4.17 M/ L 4.00-5.00 (test code = [...] (BEAKER) (test code = 412) PLATELET COUNT (AKER) (test 137 K/CU MM 150-430 L code = 756) MEAN PLATELET VOLUME (BEAKER) 7.2 fL 6.5-10.5 (test code = 754) NUCLEATED RED BLOOD CELLS 0 /100 WBC 0-0 (AKER) (test code = 413) 0.00POCT-GLUCOSE [id number] 17:50:00 Test Item Value Reference Range Interpretation Comments POC-GLUCOSE METER 118 mg/dL 70-110 H TESTED AT [place] [address] ([facility]) (test code = KISHA Pabon [facility] 1538) [address] POCT-GLUCOSE [id number] 11:59:00 Test Item Value Reference Range Interpretation Comments POC-GLUCOSE METER 247 mg/dL 70-110 H TESTED AT [place] [address] ([facility]) (test code = BANNERBRIANDA Pabon [facility] 1538) [address] POCT-GLUCOSE [id number] 07:54:00 Test Item Value Reference Range Interpretation Comments POC-GLUCOSE METER 141 mg/dL 70-110 H TESTED AT [place] [address] ([facility]) (test code = BANNERBRIANDA Pabon [facility] 1538) [address] CBC W/PLT COUNT & AUTO [id number] 03:45:00 Test Item Value Reference Range Interpretation Comments WHITE BLOOD CELL COUNT ([facility]) 4.9 K/ L 4.0-10.0 (test code [...] K/ L 0.00-0.20 (test code = 417) [id number] 03:29:00 Test Item Value Reference Range Interpretation Comments MAGNESIUM (BEAKER) 1.8 mg/dL 1.6-2.6 Specimen slightly (test code = 627) hemolyzed BASIC METABOLIC [id number] 03:29:00 Test Item Value Reference Range Interpretation [...] NOT APPLICABLE FOR DIALYSIS PATIEN TS. POCT-GLUCOSE [id number] 00:05:00 Test Item Value Reference Range Interpretation Comments POC-GLUCOSE METER 117 mg/dL 70-110 H TESTED AT [facility] [address] [facility] (test code = [facility] 1538) [address] POCT-GLUCOSE [id number] 18:17:00 Test Item Value Reference Range Interpretation Comments POC-GLUCOSE METER 141 mg/dL 70-110 H TESTED AT [facility] 6720 ([facility] (test code = [facility] 1538) [address] CREATINE KINASE (CK), TOTAL AND [id number] 15:43:00 Test Item Value Reference Range Interpretation Comments CREATINE KINASE TOTAL (BEAKER) 31 U/L 29-200 (test code = 380) CREATINE KINASE-MB (BEAKER) (test 1.3 ng/mL 0.0-6.6 code = 750) CREATINE KINASE-MB INDEX (BEAKER) 4.2 % (test code = 395) Effective 08/09/2014: CK-MB Reference Range ChangeNew: 0.0-6.6 Previous: 0.0-4.9CK-MB Reference Range:<6.7 Normal6.7-10.0 Borderline>10.0 AbnormalBLOOD GAS, [id number] 15:26:00 Test Item Value Reference Range Interpretation [...] (test code = 1819) 35.0 % POCT-GLUCOSE [id number] 11:45:00 Test Item Value Reference Range Interpretation Comments POC-GLUCOSE METER 122 mg/dL 70-110 H TESTED AT [facility] 6720 (BEAKER) (test code = KISHA GARCÍA [place] 1538) [address] CREATINE KINASE (CK), TOTAL AND [id number] 10:29:00 Test Item Value Reference Range Interpretation Comments CREATINE KINASE TOTAL (BEAKER) 31 U/L 29-200 (test code = 380) CREATINE KINASE-MB (BEAKER) (test 1.5 ng/mL 0.0-6.6 code = 750) CREATINE KINASE-MB INDEX (BEAKER) 4.8 % (test code = 395) Effective 08/09/2014: CK-MB Reference Range ChangeNew: 0.0-6.6 Previous: 0.0-4.9CK-MB Reference Range:<6.7 Normal6.7-10.0 Borderline>10.0 AbnormalTROPONIN [id number] 10:29:00 Test Item Value Reference Range Interpretation [...] renalfailure, acidosis, acute neurological disease, and persistent tachyarrhythmia.[id number] 10:22:00 Test Item Value Reference Range Interpretation Comments PARTIAL THROMBOPLASTIN TIME 22.5 seconds 22.5-36.0 (BEAKER) (test code = 760) PROTHROMBIN TIME/[id number] 10:21:00 Test Item Value Reference Range Interpretation Comments PROTIME (BEAKER) (test code = 12.4 seconds 11.7-14.7 759) INR (BEAKER) (test code = 370) 0.9 <=5.9 RECOMMENDED COUMADIN/WARFARIN INR THERAPY RANGESSTANDARD DOSE: 2.0 - 3.0 Includes: PROPHYLAXIS forvenous thrombosis, systemic embolization; TREATMENT for venous thrombosis and/or pulmonary embolus.HIGH RISK: Target INR is 2.5-3.5 for patients with mechanical heart valves.BLOOD GAS, [id number] 10:17:00 Test Item Value Reference Range Interpretation [...] (test code = 1819) 40.0 % PLATELET [id number] 10:13:00 Test Item Value Reference Range Interpretation Comments PLATELET COUNT (BEAKER) (test 111 K/CU MM 150-430 L code = 756)
[2021-03-13 15:05] LABS: Basophils % 0.4 % (0-1.3); Hematocrit 35.9 % (36.0-45.0); Lymphocytes % 22.1 % (15.3-44.8); MPV 7.4 fL (7.6-11.3)
[2021-03-13] MEDS ORDERED: FUROSEMIDE 20 MG/ 2ML VIAL ONE (15:07)
[2021-03-13 15:12] LABS: Protime INR 0.95
[2021-03-13 15:28] LABS: ALT/SGPT 15 U/L (12-78); AST/SGOT 10 U/L (15-37); Albumin 3.3 g/dL (3.4-5.0); Alkaline Phosphatase 68 U/L (45-117); BUN Blood Urea Nitrogen 11 mg/dL (7-18); Bilirubin Direct 0.1 mg/dL (0-0.2); Bilirubin Total 0.5 mg/dL (0.2-1.0); Glucose Level 99 mg/dL (74-106); NT PRO-BNP 54 pg/mL (<125); Potassium 4.2 mmol/L (3.5-5.1); Protein, Total 6.6 g/dL (6.4-8.2); Sodium Level 141 mmol/L (136-145); Troponin (Emerg Dept Use Only) < 0.02 ng/mL (0.0-0.045)
[2021-03-13 15:31] LABS: Bicarbonate > 45 mmol/L (21-32)
[2021-03-13 16:00] LABS: Arterial Blood Carboxyhemoglob 1.6 % (0-1.5); Blood Gas Oxyhemoglobin 96.9 % (94-97); Blood O2 Saturation 99.7 % (92-98.5)
--- NOTE | 2021-03-13 16:32 | RAD REPORT ---
EXAM DESCRIPTION: RAD - Chest Single View - 03/13/2021 3:04 pm CLINICAL HISTORY: DYSPNEA COMPARISON: Portable December 15 TECHNIQUE: AP portable chest image was obtained 03/13/2021 3:04 pm . FINDINGS: Fibrotic lung changes are present matching comparison. Granulomatous calcifications are pr esent as well. No peripheral mass or consolidations seen. Hilar regions within normal limits. Heart and vasculature are normal. No measurable pleural effusion and no pneumothorax. No acute bony abnormality seen. No acute aortic findings suspected. IMPRESSION: No acute cardiopulmonary process. No significant change from comparison study.
--- NOTE | 2021-03-13 16:43 | EDPHYS ---
Physician Documentation [facility] Name: Vikki Zamudio Age: 60 yrs Sex: Female : 1960 Arrival Date: 03/13/2021 Time: 14:25 Bed 5 Private MD: ED Physician Andrea Willson HPI: 03/13 16:42 This 60 yrs old Female presents to ER via EMS with complaints of Shortness Of jr8 Breath. 16:42 The patient has shortness of breath at rest. Onset: The symptoms/episode began/occurred jr8 suddenly, yesterday. Duration: The symptoms are continuous. The patient's shortness of breath is aggravated by talking, walking. Associated signs and symptoms: The patient has no apparent associated signs or symptoms. Severity of symptoms: At their worst the symptoms were moderate in the emergency department the symptoms are unchanged. The patient has experienced similar episodes in the past, several times. The patient has not recently seen a physician. 16:42 Patient with history of end stage COPD. Started to feel more short of breath yesterday. jr8 EMS called today for worsening of condition. Patient sleepy but awake and easy to talk to upon arrival . Historical: - Allergies: 14:33 Codeine; ld1 - PMHx: 14:33 CHF; COPD; GERD; High Cholesterol; Hypertension; Hypothyroidism; Panic Attacks; Sleep ld1 Apnea; - Immunization history:: Adult Immunizations up to date. - Social history:: Smoking status: Patient/guardian denies using tobacco. ROS: 16:42 Eyes: Negative for injury, pain, redness, and discharge, ENT: Negative for injury, jr8 pain, and discharge, Neck: Negative for injury, pain, and swelling, Cardiovascular: Negative for chest pain, palpitations, and edema, Abdomen/GI: Negative for abdominal pain, nausea, vomiting, diarrhea, and constipation, Back: Negative for injury and pain, MS/Extremity: Negative for injury and deformity, Skin: Negative for injury, rash, and discoloration, Neuro: Negative for headache, weakness, numbness, tingling, and seizure. 16:42 Respiratory: Positive for dyspnea on exertion, shortness of breath. Exam: 16:42 Cardiovascular: Regular rate and rhythm with a normal S1 and S2. No gallops, murmurs, jr8 or rubs. Normal PMI, no JVD. No pulse deficits. Abdomen/GI: Soft, non-tender, with normal bowel sounds. No distension or tympany. No guarding or rebound. No evidence of tenderness throughout. Back: No spinal tenderness. No costovertebral tenderness. Full range of motion. Skin: Warm, dry with normal turgor. Normal color with no rashes, no lesions, and no evidence of cellulitis. MS/ Extremity: Pulses equal, no cyanosis. Neurovascular intact. Full, normal range of motion. Neuro: Awake and alert, GCS 15, oriented to person, place, time, and situation Motor strength 5/5 in all extremities. Sensory grossly intact. 16:42 Respiratory: the patient does not display signs of respiratory distress, Respirations: tachypnea, that is mild, Breath sounds: decreased breath sounds, that are moderate, are scattered. Vital Signs: 14:30 BP 130 / 62; Pulse 71; Resp 22; Temp 98.4(O); Pulse Ox 100% on 15% Non-rebreather mask; ld1 Pain 0/10; 15:37 BP 140 / 66; Pulse 75; Resp 20; Pulse Ox 100% on 15% Non-rebreather mask; ld1 16:26 BP 154 / 76; Pulse 76; Resp 20; Pulse Ox 100% on .35% BiPAP; ld1 18:09 BP 118 / 87; Pulse 67; Resp 16; Pulse Ox 93% on .35% BiPAP; ld1 MDM: 14:30 Patient medically screened. [facility] 16:57 Data reviewed: vital signs, nurses notes, lab test result(s), EKG, radiologic studies, [facility] plain films. Data interpreted: Pulse oximetry: on 100 % NRB is 100 %. Interpretation: acceptable. Counseling: I had a detailed discussion with the patient and/or guardian regarding: the historical points, exam findings, and any diagnostic results supporting the discharge/admit diagnosis, lab results, radiology results, the need for further work-up and treatment in the hospital. 03/13 14:30 Order name: Basic Metabolic Panel [facility] 03/13 14:30 Order name: CBC with Diff [facility] 03/13 14:30 Order name: LFT's [facility] 03/13 14:30 Order name: Magnesium [facility] 03/13 14:30 Order name: NT PRO-BNP jr03/13 14:30 Order name: PT-INR 03/13 14:30 Order name: Troponin (emerg Dept Use Only) 03/13 15:10 Order name: ABG [facility] 03/13 15:12 Order name: CBC with Automated Diff; Complete Time: 15:37 EDMS 03/13 15:12 Order name: Protime (+INR); Complete Time: 15:37 EDMS 03/13 15:31 Order name: Basic Metabolic Panel; Complete Time: 15:37 EDMS 03/13 15:31 Order name: Liver (Hepatic) Function; Complete Time: 15:37 EDMS 03/13 15:31 Order name: Troponin (Emerg Dept Use Only); Complete Time: 15:37 EDMS 03/13 15:31 Order name: NT PRO-BNP; Complete Time: 15:37 EDMS 03/13 14:30 Order name: XRAY Chest (1 view) 03/13 14:30 Order name: EKG; Complete Time: 14:32 [facility] 03/13 14:30 Order name: Cardiac monitoring; Complete Time: 14:36 03/13 14:30 Order name: EKG - Nurse/Tech; Complete Time: 15:02 03/13 14:30 Order name: IV Saline Lock; Complete Time: 15:01 [facility] 03/13 14:30 Order name: Labs collected and sent; Complete Time: 15:01 03/13 14:30 Order name: O2 Per Protocol; Complete Time: 14:35 [facility] 03/13 14:30 Order name: O2 Sat Monitoring; Complete Time: 14:36 [facility] 03/13 15:31 Order name: Magnesium; Complete Time: 15:37 EDMS 03/13 16:32 Order name: RAD; Complete Time: 16:57 EDMS 03/13 16:54 Order name: COVID-19 : Document "Date of Symptom Onset" if Symptomatic. 03/13 16:57 Order name: ABG Arterial Blood Gas; Complete Time: 16:58 EDMS 03/13 17:53 Order name: [facility] 03/13 18:50 Order name: SARS-COV-2 RT PCR; Complete Time: 18:55 EDMS Administered Medications: 15:02 Drug: Lasix (furosemide) 60 mg Route: IVP; Site: right antecubital; ld1 15:30 Follow up: Response: No adverse reaction ld1 17:08 Drug: SOLU-Medrol (methylPrednisoLONE) 125 mg Route: IVP; Site: right wrist; ld1 17:30 Follow up: Response: No adverse reaction ld1 Disposition: 03/14 06:14 Co-signature as Attending Physician, Andrea Willson MD I agree with the assessment and kdr plan of care. Disposition: 03/13/21 16:42 Hospitalization ordered by El An for Inpatient Admission. Preliminary diagnosis are Chronic obstructive pulmonary disease with (acute) exacerbation, Chronic diastolic (congestive) heart failure, Acute respiratory failure with hypercapnia. - Bed requested for Intensive Care Unit. - Status is Inpatient Admission. ea - Condition is Fair. - Problem is new. - Symptoms have improved. Signatures: Dispatcher [employer] Dayanna Dumont RN RN dw Rittger, Kevin, MD MD kdr Roszak, Josh, PA PA jr8 Mary Ellen Villanueva RN RN ea Dibbern, Lauren, RN RN ld1 Corrections: (The following items were deleted from the chart) 03/13 16:42 16:42 Hospitalization Ordered by El An MD for Inpatient Admission. Preliminary jr8 diagnosis is Chronic obstructive pulmonary disease with (acute) exacerbation; Chronic diastolic (congestive) heart failure. Bed requested for Intensive Care Unit. Status is Inpatient Admission. Condition is Fair. Problem is new. Symptoms have improved. 8 19:02 16:42 03/13/2021 16:42 Hospitalization Ordered by El An MD for Inpatient dw Admission. Preliminary diagnosis is Chronic obstructive pulmonary disease with (acute) exacerbation; Chronic diastolic (congestive) heart failure; Acute respiratory failure with hypercapnia. Bed requested for Intensive Care Unit. Status is Inpatient Admission. Condition is Fair. Problem is new. Symptoms have improved. jr8 19:10 19:02 03/13/2021 16:42 Hospitalization Ordered by El An MD for Inpatient dw Admission. Preliminary diagnosis is Chronic obstructive pulmonary disease with (acute) exacerbation; Chronic diastolic (congestive) heart failure; Acute respiratory failure with hypercapnia. Bed requested for Intensive Care Unit. Status is Inpatient Admission. Condition is Fair. Problem is new. Symptoms have improved. 19:53 19:10 03/13/2021 16:42 Hospitalization Ordered by El An MD for Inpatient ea Admission. Preliminary diagnosis is Chronic obstructive pulmonary disease with (acute) exacerbation; Chronic diastolic (congestive) heart failure; Acute respiratory failure with hypercapnia. Bed requested for Intensive Care Unit. Status is Inpatient Admission. Condition is Fair. Problem is new. Symptoms have improved. dw
--- NOTE | 2021-03-13 16:43 | ER ---
Nurse's Notes [facility] Name: Vikki Zamudio Age: 60 yrs Sex: Female : 1960 Arrival Date: 03/13/2021 Time: 14:25 Bed 5 Private MD: Diagnosis: Chronic obstructive pulmonary disease with (acute) exacerbation;Chronic diastolic (congestive) heart failure;Acute respiratory failure with hypercapnia Presentation: 03/13 14:30 Chief complaint: EMS states: toned out for SOB. EMS reported SpO2 74% upon arrival on 3 ld1 LPM. Arrived on non re breather 15 LPM with SpO2 of 100%. Coronavirus screen: At this time, the client does not indicate any symptoms associated with coronavirus-19. Ebola Screen: No symptoms or risks identified at this time. Initial Sepsis Screen: Does the patient meet any 2 criteria? No. Patient's initial sepsis screen is negative. Does the patient have a suspected source of infection? No. Patient's initial sepsis screen is negative. Risk Assessment: Do you want to hurt yourself or someone else? Patient reports no desire to harm self or others. Onset of symptoms was March 13, 2021. 14:30 Method Of Arrival: EMS: [facility] ld1 14:30 Acuity: LIZETH 3 ld1 Triage Assessment: 14:33 General: Appears in no apparent distress. comfortable. General: Behavior is calm, ld1 cooperative, appropriate for age. Pain: Denies pain. EENT: No signs and/or symptoms were reported regarding the EENT system. Neuro: Level of Consciousness is awake, alert, obeys commands, Oriented to person, place, time, situation, Appropriate for age. Cardiovascular: Reports shortness of breath, Denies chest pain, Capillary refill < 3 seconds Patient's skin is warm and dry. Rhythm is regular. Respiratory: Airway is patent Respiratory effort is even, labored, Respiratory pattern is regular, symmetrical. GI: Abdomen is non-distended, obese. : No signs and/or symptoms were reported regarding the genitourinary system. Derm: No signs and/or symptoms reported regarding the dermatologic system. Musculoskeletal: No signs and/or symptoms reported regarding the musculoskeletal system. Historical: - Allergies: 14:33 Codeine; ld1 - PMHx: 14:33 CHF; COPD; GERD; High Cholesterol; Hypertension; Hypothyroidism; Panic Attacks; Sleep ld1 Apnea; - Immunization history:: Adult Immunizations up to date. - Social history:: Smoking status: Patient/guardian denies using tobacco. Screenin:34 Abuse screen: Denies threats or abuse. Denies injuries from another. Nutritional ld1 screening: No deficits noted. Tuberculosis screening: No symptoms or risk factors identified. Fall Risk None identified. Assessment: 14:34 Reassessment: See triage assessment. ld1 14:34 Cardiovascular: Capillary refill < 3 seconds Patient's skin is warm and dry. ld1 Respiratory: Airway is patent Respiratory effort is even, unlabored, Respiratory pattern is regular, symmetrical, Breath sounds with crackles bilaterally. 15:37 Reassessment: Patient appears in no apparent distress at this time. No changes from ld1 previously documented assessment. Pt denies concerns at this time. 16:25 Reassessment: Patient appears in no apparent distress at this time. Patient denies pain ld1 at this time. 18:09 Reassessment: Patient appears in no apparent distress at this time. No changes from ld1 previously documented assessment. Laying in bed talking on phone. Denies concerns at this time. 19:17 Reassessment: Report given to receiving ICU nurse. ea Vital Signs: 14:30 BP 130 / 62; Pulse 71; Resp 22; Temp 98.4(O); Pulse Ox 100% on 15% Non-rebreather mask; ld1 Pain 0/10; 15:37 BP 140 / 66; Pulse 75; Resp 20; Pulse Ox 100% on 15% Non-rebreather mask; ld1 16:26 BP 154 / 76; Pulse 76; Resp 20; Pulse Ox 100% on .35% BiPAP; ld1 18:09 BP 118 / 87; Pulse 67; Resp 16; Pulse Ox 93% on .35% BiPAP; ld1 ED Course: 14:25 Patient arrived in ED. iw 14:30 Malachi Falk PA is PHCP. jr8 14:30 Andrea Willson MD is Attending Physician. jr8 14:30 Cathy Lazaro RN is Primary Nurse. ld1 14:32 Triage completed. ld1 14:33 Arm band placed on right wrist. ld1 14:57 Initial lab(s) drawn, by me, sent to lab. Inserted saline lock: 20 gauge in right dh3 wrist, using aseptic technique. Blood collected. 16:41 El An MD is Hospitalizing Provider. jr8 17:08 COVID-19 : Document "Date of Symptom Onset" if Symptomatic. Sent. ld1 19:16 No provider procedures requiring assistance completed. Patient admitted, IV remains in ea place. 19:17 Patient has correct armband on for positive identification. Bed in low position. Call ea light in reach. Administered Medications: 15:02 Drug: Lasix (furosemide) 60 mg Route: IVP; Site: right antecubital; ld1 15:30 Follow up: Response: No adverse reaction ld1 17:08 Drug: SOLU-Medrol (methylPrednisoLONE) 125 mg Route: IVP; Site: right wrist; ld1 17:30 Follow up: Response: No adverse reaction ld1 Outcome: 16:42 Decision to Hospitalize by Provider. jr8 19:17 Admitted to ICU accompanied by nurse, via stretcher, room ED ICU 11, with oxygen, with ea chart, Report called to Receiving nurse in ICU 19:17 Condition: stable 19:17 Instructed on the need for admit. 19:53 Patient left the ED. ea Signatures: Treva Ji, RN RN Malachi Cooney PA PA jr8 Azra Joseph formerly [facility] Mray Ellen Villanueva RN Cathy Guzman ea RN RN ld1
[2021-03-13] MEDS ORDERED: METHYLPREDNISOLONE 125 MG INJ ONE (17:23)
--- NOTE | 2021-03-13 17:32 | P.HP ---
Certification for Inpatient Patient admitted to: Inpatient With expected LOS: >2 Midnights Practitioner: I am a practitioner with admitting privileges, knowledge of patient current condition, hospital course, and medical plan of care. Services: Services provided to patient in accordance with Admission requirements found in Title 42 Section 412.3 of the Code of Federal Regulations Patient History Date of Service: 03/13/21 Primary Care Provider: Dr. Billy Howard Reason for admission: acute on chronic COPD exacerbation History of Present Illness: 60yo F, PMH: severe COPD on 3L O2 and NIV at home, VIVEK, hypothyroidism, chronic low back pain, h/o nicotine dependence, GERD. Patient reports sudden onset of SOB / difficulty breathing yesterday. Symptoms w orsened and her O2 saturation was <80% at home. She spoke with PCP's office and advised to come to ED. Associated with some confusion, feeling like she has mild "dementia". Patient noted to have SpO2 74% on 3L NC. Patient states she has been taking medications as prescribed. Denies tobacco use since last hospitalization. Otherwise denies any nausea/vomiting, no fever/chills, no diarrhea. She does report some LUQ/flank pain over the last several weeks - nothing in particular improves/worsens the pain. In the ER, CXR rather unremarkable compared to prior imaging. ABG with respiratory acidosis, CO2: 157. She was placed on BIPAP. Reported mild improvement in symptoms. Allergies codeine [Codeine] Adverse Reaction (Mild, Verified 02/15/21 08:47) itch Home Medications: Albuterol Sulfate [Proair Hfa] 1 puff IH QID PRN 10/23/20 Atorvastatin Calcium [Lipitor*] 20 mg PO BEDTIME 10/23/20 Gabapentin 300 mg PO BID 10/23/20 Roflumilast [Daliresp*] 500 mcg PO DAILY 10/23/20 Umeclidinium Brm/Vilanterol Tr [Anoro Ellipta 62.5-25 Mcg INH] 1 puff IN DAILY 10/23/20 clonazePAM [Klonopin*] 0.5 mg PO DAILY PRN 10/23/20 predniSONE [Deltasone*] 10 mg PO BID 14 Days #28 tab 10/24/20 Spironolactone 25 mg PO DAILY 90 Days #90 tablet 11/21/20 Tramadol HCl [Ultram] 50 mg PO TID PRN 30 Days #60 tablet 11/21/20 Pantoprazole [Protonix Tab] 40 mg PO DAILY 02/14/21 Ropinirole HCl [Requip] 1 mg PO BEDTIME 02/14/21 - Past Medical/Surgical History Diabetic: No -: Severe COPD, oxygen/steroid dependent,Pulmonary-Dr. Do -: Mild pulmonary hypertension -: Hypothyroidism -: Bipolar disorder -: Hypertension -: Chronic low back pain -: Obstructive sleep apnea -: Tobacco abuse -: HLD -: GERD -: Appendectomy -: Psychosocial/ Personal History: She lives with a partner. She has 1 child. She is currently disabled. - Family History Father -: Heart disease, Hypertension, Diabetes Notes: from CHF Mother -: Heart disease, Hypertension, Diabetes Notes: from CHF Brother -: Diabetes Sister -: Heart disease, Diabetes Notes: from CHF - Social History Smoking Status: Former smoker (quit ~3 months ago) Alcohol use: Yes CD- Drugs: No Caffeine use: Yes Place of Residence: Home Review of Systems 10-point ROS is otherwise unremarkable Physical Examination - Physical Exam General: Alert, Oriented x3, Moderate distress HEENT: EOMI, Sclerae nonicteric Respiratory: Diminished (throughout, minimal air movement) Cardiovascular: No edema, Regular rate/rhythm, Normal S1 S2 Capillary refill: <2 Seconds Gastrointestinal: Soft and benign, Non-distended, Tenderness (LUQ) Musculoskeletal: No swelling, No tenderness Integumentary: No rashes Neurological: Normal speech, Normal strength at 5/5 x4 extr, Normal affect - Studies Laboratory Data (last 24 hrs) 03/13/21 14:57: PT 10.9, INR 0.95 03/13/21 14:57: WBC 4.50, Hgb 11.1 L, Hct 35.9 L, Plt Count 110 L 03/13/21 14:57: Sodium 141, Potassium 4.2, BUN 11, Creatinine 0.45 L, Glucose 99, Magnesium 2.0, Total Bilirubin 0.5, AST 10 L, ALT 15, Alkaline Phosphatase 68 Assessment and Plan - Advance Directives Does patient have a Living Will: No Does patient have a Durable POA for Healthcare: No Physician Review Additional Text: Problem List Acute on chronic COPD exacerbation Severe COPD, on chronic 3L NC and NIV hypothyroidism bipolar disorder hypertension GERD -patient with severe COPD, history of elevated CO2 even up to 200 at times -does not appear septic, no evidence of infection at this time -with self-reported confusion at home -admit to ICU, BIPAP -repeat ABG in AM -steroids, nebs -pulm consulted -obtain/confirm home medications and restart as appropriate -patient does NOT want intubation, but ok with chest compressions Code: DNI VTE: lovenox Dispo: admit to ICU, anticipate hospitalization ~2-3 days Time Spent Managing Pts Care (In Minutes): 60
[2021-03-13] MEDS ORDERED: ALBUTEROL 2.5 MG/3 ML NEB SOL NEB PRN (19:18)
[2021-03-13] MEDS ORDERED: clonazePAM 0.5 MG TAB PO PRN (19:18)
[2021-03-13] MEDS: ALBUTEROL 2.5 MG/3 ML NEB SOL NEB SCH (20:10)
[2021-03-13] MEDS: IPRATROPIUM BROM 0.5MG/2.5ML NEB SCH (20:10)
[2021-03-13] MEDS ORDERED: ALBUTEROL 2.5 MG/3 ML NEB SOL ONE (20:25)
[2021-03-13] MEDS ORDERED: IPRATROPIUM BROM 0.5MG/2.5ML ONE (20:25)
[2021-03-14] MEDS: METHYLPREDNISOLONE 40 MG INJ IV SCH ×2 (00:36→08:32)
[2021-03-14] MEDS ORDERED: METHYLPREDNISOLONE 40 MG INJ ONE ×2 (00:54→08:06)
[2021-03-14] MEDS: ALBUTEROL 2.5 MG/3 ML NEB SOL NEB SCH ×4 (01:05→20:10)
[2021-03-14] MEDS: IPRATROPIUM BROM 0.5MG/2.5ML NEB SCH ×5 (01:05→20:10)
[2021-03-14] MEDS ORDERED: IPRATROPIUM BROM 0.5MG/2.5ML ONE ×4 (01:27→20:20)
[2021-03-14] MEDS ORDERED: ALBUTEROL 2.5 MG/3 ML NEB SOL ONE ×4 (01:27→20:20)
[2021-03-14 01:49] VITALS: BMI 37.8
[2021-03-14 05:22] LABS: Absolute Lymphocytes (CBC) 0.3 K/uL (0.7-4.9); Basophils % 0.2 % (0-1.3); Hematocrit 33.6 % (36.0-45.0); Lymphocytes % 12.3 % (15.3-44.8); MPV 7.7 fL (7.6-11.3); RBC Red Blood Cell Count 4.01 M/uL (3.86-4.86)
[2021-03-14 05:33] LABS: Arterial Blood Carboxyhemoglob 1.9 % (0-1.5); Blood Gas Oxyhemoglobin 87.2 % (94-97); Blood O2 Saturation 89.7 % (92-98.5)
[2021-03-14 05:49] LABS: ALT/SGPT 15 U/L (12-78); AST/SGOT 11 U/L (15-37); Albumin 3.2 g/dL (3.4-5.0); Alkaline Phosphatase 63 U/L (45-117); BUN Blood Urea Nitrogen 19 mg/dL (7-18); Bicarbonate > 45 mmol/L (21-32); Bilirubin Total 0.5 mg/dL (0.2-1.0); Glucose Level 157 mg/dL (74-106); Magnesium 1.8 mg/dL (1.8-2.4); Potassium 4.4 mmol/L (3.5-5.1); Protein, Total 6.2 g/dL (6.4-8.2); Sodium Level 138 mmol/L (136-145)
[2021-03-14 06:27] LABS: Blood Morphology Comment NOT SEEN (NOT SEEN); Platelet Estimate ADEQ; Platelets, Giant FEW
[2021-03-14] MEDS ORDERED: ENOXAPARIN 40 MG/0.4 ML SQ ONE (08:07)
[2021-03-14] MEDS: ENOXAPARIN 40 MG/0.4 ML SQ SCH (08:32)
--- NOTE | 2021-03-14 11:54 | P.CNS ---
Date of Consult: 03/21/21 Reason for Consult: Respiratory failure Primary Care Provider: Dr. Billy Howard Chief Complaint: acute on chronic COPD exacerbation History of Present Illness: Patient is 60 years of age terminal COPD recurrent hospital admissions well known to me apparently developed altered mental status came to the hospital was very hypercarbic this morning patient is alert responsive cooperative currently was using her noninvasive ventilator was confused about her medication denies any fever chills cough sputum hemoptysis pack to her baseline no edema Allergies codeine [Codeine] Adverse Reaction (Mild, Verified 02/15/21 08:47) itch Home Medications: Albuterol Sulfate [Proair Hfa] 1 puff IH QID PRN 10/23/20 Atorvastatin Calcium [Lipitor*] 20 mg PO BEDTIME 10/23/20 Gabapentin 300 mg PO BID 10/23/20 Roflumilast [Daliresp*] 500 mcg PO DAILY 10/23/20 Umeclidinium Brm/Vilanterol Tr [Anoro Ellipta 62.5-25 Mcg INH] 1 puff IN DAILY 10/23/20 clonazePAM [Klonopin*] 0.5 mg PO DAILY PRN 10/23/20 Spironolactone 25 mg PO DAILY 90 Days #90 tablet 11/21/20 Tramadol HCl [Ultram] 50 mg PO TID PRN 30 Days #60 tablet 11/21/20 Pantoprazole [Protonix Tab] 40 mg PO DAILY 02/14/21 Ropinirole HCl [Requip] 1 mg PO BEDTIME 02/14/21 predniSONE [Deltasone*] 10 mg PO DAILY 03/14/21 - Past Medical/Surgical History Diabetic: No -: Severe COPD, oxygen/steroid dependent,Pulmonary-Dr. Do -: Mild pulmonary hypertension -: Hypothyroidism -: Bipolar disorder -: Hypertension -: Chronic low back pain -: Obstructive sleep apnea -: Tobacco abuse -: HLD -: GERD -: Appendectomy -: Psychosocial/ Personal History: She lives with a partner. She has 1 child. She is currently disabled. - Family History Father Medical History: Heart disease, Hypertension, Diabetes Notes: from CHF Mother Medical History: Heart disease, Hypertension, Diabetes Notes: from CHF Brother Medical History: Diabetes Sister Medical History: Heart disease, Diabetes Notes: from CHF - Social History Smoking Status: Unknown if ever smoked Alcohol use: Yes CD- Drugs: No Caffeine use: Yes Place of Residence: Home Review of Systems 10-point ROS is otherwise unremarkable General: Weakness Respiratory: Shortness of Breath Physical Examination Temp Pulse Resp BP Pulse Ox 99.3 F 83 21 H 127/80 93 03/14/21 11:00 03/14/21 11:00 03/14/21 11:00 03/14/21 11:00 03/14/21 11:00 General: Alert, In no apparent distress Respiratory: Clear to auscultation bilaterally, Diminished Cardiovascular: Regular rate/rhythm Gastrointestinal: Normal bowel sounds, Soft and benign Laboratory Data (last 24 hrs) 03/13/21 14:57: PT 10.9, INR 0.95 03/13/21 14:57: WBC 4.50, Hgb 11.1 L, Hct 35.9 L, Plt Count 110 L 03/13/21 14:57: Sodium 141, Potassium 4.2, BUN 11, Creatinine 0.45 L, Glucose 99, Magnesium 2.0, Total Bilirubin 0.5, AST 10 L, ALT 15, Alkaline Phosphatase 68 - Problems (1) Acute on chronic respiratory failure with hypoxia and hypercapnia Current Visit: No Status: Acute Plan: Patient is 60 years of age terminal COPD admitted with yet another exacerbation from our underlying COPD he is back to her baseline she is a recurrent admissions with significant hypercarbia responds well to noninvasive ventilator patient does have a noninvasive ventilator at home denies any symptoms of worsening COPD infuse about her medications compliant with NIV at home bicarb was significantly elevated I have also start on half-normal saline once of bicarb risk and his corrected will plan to discharge right now has greater than 45 chest x-ray shows COPD changes
[2021-03-14] MEDS ORDERED: TRAMADOL HCL 50 MG TAB PO PRN (12:11)
[2021-03-14] MEDS: WATER FOR INJ,STERILE 10 ML IV SCH (12:33)
[2021-03-14] MEDS: ACETAZOLAMIDE 500 MG IV IV SCH ×2 (12:33→22:22)
[2021-03-14] MEDS: NACHLORIDE 0.45% 1,000 ML IV SCH (12:33)
[2021-03-14] MEDS ORDERED: NACHLORIDE 0.45% 1,000 ML IV ONE (12:51)
[2021-03-14] MEDS ORDERED: WATER FOR INJ,STERILE 10 ML ONE ×2 (12:53→22:50)
--- NOTE | 2021-03-14 12:54 | P.PN ---
Subjective Date of Service: 03/14/21 Primary Care Provider: Dr. Billy Howard Chief Complaint: acute on chronic COPD exacerbation Subjective: Improving (Difficult to arouse this morning. feeling better, on BIPAP most of night intermittently. upset with heart healthy diet this morning.) Review of Systems 10-point ROS is otherwise unremarkable Physical Examination - Vital Signs Temperature: 99.3 F Blood Pressure: 127/80 Pulse: 83 Respirations: 21 Pulse Ox (%): 91 - Studies Laboratory Data (last 24 hrs) 03/13/21 14:57: PT 10.9, INR 0.95 03/13/21 14:57: WBC 4.50, Hgb 11.1 L, Hct 35.9 L, Plt Count 110 L 03/13/21 14:57: Sodium 141, Potassium 4.2, BUN 11, Creatinine 0.45 L, Glucose 99, Magnesium 2.0, Total Bilirubin 0.5, AST 10 L, ALT 15, Alkaline Phosphatase 68 Assessment & Plan Physician Review Additional Text: Physical Exam General: Alert, Oriented x3, NAD HEENT: EOMI, Sclerae nonicteric Respiratory: Diminished throughout, minimal air movement, no wheeze Cardiovascular: No edema, Regular rate/rhythm, Normal S1 S2 Gastrointestinal: Soft and benign, Non-distended, no tenderness Integumentary: No rashes Neurological: Normal speech, Normal affect Problem List Acute on chronic COPD exacerbation with hypercarbia Severe COPD, on chronic 3L NC and NIV hypothyroidism bipolar disorder hypertension GERD -patient with severe COPD, history of elevated CO2 even up to 200 in the past -does not appear septic, no evidence of infection at this time -with self-reported confusion at home -continue ICU level of care today, possible downgrade later this afternoon -CO2 significantly elevated no admission, improved to 90s this morning, ABG improved -tirtate O2 for SpO2 > 90% -continue nebs, steroids changed to PO prednisone -pulm consulted -confirm home medications, restart as appropriate -patient does NOT want intubation, but ok with chest compressions Code: DNI VTE: lovenox Dispo: ICU, anticipate dc home in 24-48hrs Time Spent Managing Pts Care (In Minutes): 40
--- NOTE | 2021-03-14 16:31 | EKG ---
Test Date: 2021-03-13 Test Time: 14:43:06 School Age Lead Teacher: BELLA MEASUREMENT RESULTS: Intervals: Rate: 66 HI: 152 QRSD: 84 QT: 394 QTc: 413 [place]: P: 52 HI: 152 QRS: 63 T: 69 INTERPRETIVE STATEMENTS: Normal sinus rhythm with sinus arrhythmia Low voltage QRS Borderline ECG Compared to ECG 11/17/2020 15:13:15 Low QRS voltage now present Atrial premature complex(es) no longer present Fusion complex(es) no longer present Electronically Signed On 03-14-21 16:29:49 CDT by Selvin Mar
[2021-03-14] MEDS ORDERED: ATORVASTATIN 20 MG TAB PO SCH (21:00)
[2021-03-14] MEDS ORDERED: ROPINIROLE HCL 1 MG TAB PO SCH (21:00)
[2021-03-14] MEDS ORDERED: ATORVASTATIN 20 MG TAB ONE (21:35)
[2021-03-14] MEDS ORDERED: predniSONE 20 MG TAB ONE (21:36)
[2021-03-14] MEDS: predniSONE 20 MG TAB PO SCH (22:22)
[2021-03-15] MEDS: IPRATROPIUM BROM 0.5MG/2.5ML NEB SCH ×3 (02:30→13:10)
[2021-03-15] MEDS: ALBUTEROL 2.5 MG/3 ML NEB SOL NEB SCH ×3 (02:30→13:10)
[2021-03-15] MEDS ORDERED: IPRATROPIUM BROM 0.5MG/2.5ML ONE (02:53)
[2021-03-15] MEDS ORDERED: ALBUTEROL 2.5 MG/3 ML NEB SOL ONE (02:53)
[2021-03-15] MEDS ORDERED: NA CHLORIDE 0.9% 0 ML ONE (03:27)
[2021-03-15] MEDS: NACHLORIDE 0.45% 1,000 ML IV SCH ×2 (04:15→14:40)
[2021-03-15] MEDS ORDERED: NACHLORIDE 0.45% 1,000 ML IV ONE (04:35)
[2021-03-15 06:09] LABS: Absolute Lymphocytes (CBC) 0.6 K/uL (0.7-4.9); Basophils % 0.2 % (0-1.3); Hematocrit 32.5 % (36.0-45.0); Lymphocytes % 10.5 % (15.3-44.8); MPV 7.9 fL (7.6-11.3); RBC Red Blood Cell Count 3.86 M/uL (3.86-4.86)
[2021-03-15 06:18] LABS: Potassium 3.6 mmol/L (3.5-5.1)
[2021-03-15 06:48] LABS: Urine Appearance CLEAR (Clear); Urine Bilirubin NEGATIVE (Negative); Urine Blood NEGATIVE (Negative); Urine Color YELLOW (Yellow); Urine Glucose NEGATIVE (Negative); Urine Protein NEGATIVE (Negative); Urine pH 8.5 (5.0-7.0)
[2021-03-15 06:51] LABS: Urine Microscopic Reflex NO UMIC
[2021-03-15] MEDS: SUCRALFATE 1 GM TABLET PO SCH ×2 (08:21→11:30)
[2021-03-15] MEDS: predniSONE 20 MG TAB PO SCH (08:22)
[2021-03-15] MEDS: ENOXAPARIN 40 MG/0.4 ML SQ SCH (08:23)
[2021-03-15] MEDS ORDERED: POTASSIUM CL SA 10 MEQ TAB PO ONE (09:00)
[2021-03-15] MEDS ORDERED: PANTOPRAZOLE 40MG TABLET PO SCH (09:00)
[2021-03-15] MEDS ORDERED: ROFLUMILAST 500 MCG TABLET PO SCH (09:00)
--- NOTE | 2021-03-15 09:03 | P.PN ---
Subjective Date of Service: 03/15/21 Primary Care Provider: Dr. Billy Howard Chief Complaint: acute on chronic COPD exacerbation Subjective: Improving (breathing more comfortably, reporting worsening LUQ/L flank pain. worse with eating, only able to eat small amounts of food at a time. Otherwise feeling better. Memory is somewhat hazy per patient) Review of Systems 10-point ROS is otherwise unremarkable Physical Examination - Vital Signs Temperature: 97.9 F Blood Pressure: 110/79 Pulse: 69 Respirations: 16 Pulse Ox (%): 98 Assessment & Plan Physician Review Additional Text: Physical Exam General: Alert, Oriented x3, NAD HEENT: EOMI, Sclerae nonicteric Respiratory: Diminished throughout, on 5L NC, no wheeze Cardiovascular: No edema, Regular rate/rhythm, Normal S1 S2 Gastrointestinal: Soft and benign, Non-distended, tenderness in epigastrium, LUQ MSK: tenderness with minimal palpation of L upper flank just under rib Integumentary: No rashes Neurological: Normal speech, Normal affect Problem List Acute on chronic COPD exacerbation with hypoxemia and hypercarbia Severe COPD, on chronic 3L NC and NIV Hypothyroidism bipolar disorder Hypertension GERD -patient with severe COPD, history of elevated CO2 up to 200 in the past -with self-reported confusion at home -transsferred to floor early this morning -CO2 significantly elevated no admission, improved to 90s yesterday, ABG pending this morning -bicarb on BMP improved but still elevated -tirtate O2 for SpO2 > 90%, pt still requiring 5L NC -continue nebs, PO prednisone -pulm consulted - diamox added on 03/14 -patient does NOT want intubation, but ok with chest compressions -LUQ/flank pain - worse over last 2 weeks or so, reports at some level has been going on for a few months -EGD done last month revealed gastritis, no ulceration -will obtain CT abd/pelvis Code: DNI VTE: lovenox Dispo: dc home in next ~24hrs, once O2 <4LNC, pending ABG, CT results social service manager consulted for HH Time Spent Managing Pts Care (In Minutes): 40
[2021-03-15] MEDS: ACETAZOLAMIDE 500 MG IV IV SCH (09:35)
[2021-03-15] MEDS: WATER FOR INJ,STERILE 10 ML IV SCH (09:39)
--- NOTE | 2021-03-15 09:46 | RAD REPORT ---
EXAM DESCRIPTION: CTAbdomen Pelvis W Contrast - 03/15/2021 8:07 am CLINICAL HISTORY: Abdominal pain. epigastric and LUQ pain COMPARISON: Abdomen Pelvis W Contrast dated 07/27/2020 TECHNIQUE: Biphasic CT imaging of the abdomen and pelvis was performed with 100 ml non-ionic IV cont rast. All CT scans are performed using dose optimization technique as appropriate and may include automated exposure control or mA/KV adjustment according to patient size. FINDINGS: The lung bases are clear.Cholelithiasis. The liver, spleen, pancreas, adrenal glands and kidneys are within normal limits. No bowel obstruction, free air, free fluid or abscess. Sigmoid diverticulosis coli without diverticul itis. The appendix is not identified as a discrete structure, however, no secondary findings of appen dicitis are identified. No evidence of significant lymphadenopathy. No suspicious bony findings. IMPRESSION: Cholelithiasis. Sigmoid diverticulosis coli without diverticulitis.
[2021-03-15 13:11] VITALS: O2SAT 91
[2021-03-15 13:55] VITALS: TEMP 98.1
--- NOTE | 2021-03-15 14:07 | P.DS ---
Admission Date: 03/13/21 Discharge Date: 03/15/21 Primary Care Provider: Dr. Billy Howard Disposition: DC HOME/HOME HEALTH CARE Discharge Condition: FAIR Reason for Admission: acute on chronic COPD exacerbation Consultations: Pulmonology - Dr. Do Procedures: CXR (03/13): FINDINGS: Fibrotic lung changes are present matching comparison. Granulomatous calcifications are present as well. No peripheral mass or consolidations seen. Hilar regions within normal limits. Heart and vasculature are normal. No measurable pleural effusion and no pneumothorax. No acute bony abnormality seen. No acute aortic findings suspected. IMPRESSION: No acute cardiopulmonary process. No significant change from comparison study. CT Abd/pelvis (03/15): FINDINGS: The lung bases are clear.Cholelithiasis. The liver, spleen, pancreas, adrenal glands and kidneys are within normal limits. No bowel obstruction, free air, free fluid or abscess. Sigmoid diverticulosis coli without diverticulitis. The appendix is not identified as a discrete structure, however, no secondary findings of appendicitis are identified. No evidence of significant lymphadenopathy. No suspicious bony findings. IMPRESSION: Cholelithiasis. Sigmoid diverticulosis coli without diverticulitis. Problem List Acute on chronic COPD exacerbation with hypoxemia and hypercarbia Severe COPD, on chronic 3L NC and NIV Hypothyroidism bipolar disorder Hypertension GERD Brief History of Present Illness: 60yo F, PMH: severe COPD on 3L O2 and NIV at home, VIVEK, hypothyroidism, chronic low back pain, h/o nicotine dependence, GERD. Patient reports sudden onset of SOB / difficulty breathing yesterday. Symptoms worsened and her O2 saturation was <80% at home. She spoke with PCP's office and advised to come to ED. Associated with some confusion, feeling like she has mild "dementia". Patient noted to have SpO2 74% on 3L NC. Patient states she has been taking medications as prescribed. Denies tobacco use since last hospitalization. Otherwise denies any nausea/vomiting, no fever/chills, no diarrhea. She does report some LUQ/flank pain over the last several weeks - nothing in particular improves/worsens the pain. In the ER, CXR rather unremarkable compared to prior imaging. ABG with respiratory acidosis, CO2: 157. She was placed on BIPAP. Reported mild improvement in symptoms. Hospital Course: Patient's ABG on admission with CO2 of 157, improved to 96 the following day. Patient was maintained on BIPAP and continued to improve. Pulmonology was consulted. Patient was started on diamox as well. Patient refused ABG on day of discharge. she reported feeling much better and ready to be discharged home. She was recommended to utilize her BIPAP more often, ensure using it over night. She was breathing comfortably on 3-4L NC on day of discharge. She would desaturate and dyspneic with ambulation but stated was similar to baseline. Discharged with 2 additional days of 20mg prednisone BID, then to resume chronic daily prednisone. There was no evidence of infection / pneumonia. She did not receive antibiotics. Spironolactone was discontinued and Diamox was prescribed on discharge per pulm's recommendations. Follow up with Dr. Do in ~2 weeks. She report ~2 weeks of worsening LUQ/flank pain. She had been dealing with similar pain in the area for a "few months", and was seen by GI ~1 month ago. She underwent EGD that revealed gastritis. A CT abd/pelvis was performed and did not show any acute findings. She is to follow up with her PCP in 3-5 days. Vital Signs/Physical Exam: Physical Exam General: Alert, Oriented x3, NAD HEENT: EOMI, Sclerae nonicteric Respiratory: Diminished throughout, on 3L NC, no wheeze Cardiovascular: No edema, Regular rate/rhythm, Normal S1 S2 Gastrointestinal: Soft and benign, Non-distended, tenderness in epigastrium, LUQ MSK: tenderness with minimal palpation of L upper flank just under rib Integumentary: No rashes Neurological: Normal speech, Normal affect Temp Pulse Resp BP Pulse Ox 98.1 F 73 16 127/77 91 03/15/21 12:00 03/15/21 12:00 03/15/21 12:00 03/15/21 12:00 03/15/21 12:00 Laboratory Data at Discharge: WBC 5.30 K/uL (4.3-10.9) D 03/15/21 05:44 Hgb 10.2 g/dL (12.0-15.0) L 03/15/21 05:44 Hct 32.5 % (36.0-45.0) L 03/15/21 05:44 Plt Count 126 K/uL (152-406) L 03/15/21 05:44 PT 10.9 SECONDS (9.5-12.5) 03/13/21 14:57 INR 0.95 03/13/21 14:57 Sodium 136 mmol/L (136-145) 03/15/21 05:44 Potassium 3.6 mmol/L (3.5-5.1) 03/15/21 05:44 BUN 19 mg/dL (7-18) H 03/15/21 05:44 Creatinine 0.72 mg/dL (0.55-1.3) 03/15/21 05:44 Glucose 153 mg/dL (74-106) H 03/15/21 05:44 Phosphorus 3.6 mg/dL (2.5-4.9) 03/14/21 04:53 Magnesium 2.0 mg/dL (1.8-2.4) 03/15/21 05:44 Total Bilirubin 0.5 mg/dL (0.2-1.0) 03/14/21 04:53 AST 11 U/L (15-37) L 03/14/21 04:53 ALT 15 U/L (12-78) 03/14/21 04:53 Alkaline Phosphatase 63 U/L (45-117) 03/14/21 04:53 Home Medications: Albuterol Sulfate [Proair Hfa] 1 puff IH QID PRN 10/23/20 Atorvastatin Calcium [Lipitor*] 20 mg PO BEDTIME 10/23/20 Gabapentin 300 mg PO BID 10/23/20 Roflumilast [Daliresp*] 500 mcg PO DAILY 10/23/20 Umeclidinium Brm/Vilanterol Tr [Anoro Ellipta 62.5-25 Mcg INH] 1 puff IN DAILY 10/23/20 clonazePAM [Klonopin*] 0.5 mg PO DAILY PRN 10/23/20 Tramadol HCl [Ultram] 50 mg PO TID PRN 30 Days #60 tablet 11/21/20 Pantoprazole [Protonix Tab*] 40 mg PO DAILY 02/14/21 Ropinirole HCl [Requip*] 1 mg PO BEDTIME 02/14/21 predniSONE [Deltasone*] 10 mg PO DAILY 03/14/21 acetaZOLAMIDE [Diamox] 250 mg PO DAILY 30 Days #30 tab 03/15/21 predniSONE [Prednisone*] 20 mg PO BID 2 Days #4 tab 03/15/21 New Medications: acetaZOLAMIDE [Diamox] 250 mg PO DAILY 30 Days #30 tab predniSONE [Prednisone*] 20 mg PO BID 2 Days #4 tab Physician Discharge Instructions: PROBLEM: COPD exacerbation GOAL: Clear understanding of disease process INSTRUCTIONS: Diet: Regular Activity: As tolerated If your symptoms worsen call 911 or go to the ED. Call [phone] if you have any questions regarding your stay. You were found to have an acute on chronic copd exacerbation that was causing your shortness of breath. you improved with steroids, nebulizers, and more frequent use of your ventilator. Your CO2 was noted to be very high indicating y ou were not exchanging air very well. This is helped by your ventilator. You were not found to have an infection /pneumonia. You did not require antibiotics. On discharge, recommend using your ventilator more often. Continue to use it every night. You are discharged with 2 days of prednisone 20mg twice a day, after completing this, resume your usual 10mg daily prednisone dose. Stop spironolactone, start Diamox to help with your CO2 and your water retention. Follow up with Dr. Do in ~2 weeks. library services dean was consulted to assist with setting up Home health Diet: Regular Activity: Ad kristopher Followup: Isai Do MD [ACTIVE - CAN ADMIT] - NONE,NONE [Primary Care Provider] - Time spent managing pt's care (in minutes): 45
[2021-03-15 14:41] VITALS: BP 118/69
== END 2021-03-15 15:56 | disposition home health service (06) | DRG 192 ==
LOC: ER 14:21 → ERHOLD 17:19 → 2ND 03-15 04:19
PROVIDERS: ADMIT Hospitalist; ATTEND Hospitalist
PROC: 5A09357 Assistance with Respiratory Ventilation, Less than 24 Consecutive Hours, Continuous Positive Airway Pressure (ICD-10-PCS; principal; 2021-03-13)
DX: J44.1 Chronic obstructive pulmonary disease with (acute) exacerbation (principal); R09.02 Hypoxemia; R06.89 Other abnormalities of breathing; E03.9 Hypothyroidism, unspecified; F31.9 Bipolar disorder, unspecified; I10 Essential (primary) hypertension; K21.9 Gastro-esophageal reflux disease without esophagitis; R10.12 Left upper quadrant pain; M54.5 Low back pain; Z99.81 Dependence on supplemental oxygen; Z87.891 Personal history of nicotine dependence; Z20.822 Contact with and (suspected) exposure to COVID-19
CPT/HCPCS: 36415; 71045; 74177; 80048; 80053; 80076; 81003; 82805; 83735; 83880; 84100; 84484; 85025; 85610; 93005; 94640; 94660; 94760; 99285; J1120; J1650; J1940; J2920; J2930; J7030; J7512; Q9967; U0003

== ENCOUNTER 2021-03-17 17:00 | Inpatient (IN) | payer OTHER ==
--- OUTSIDE RECORDS SUMMARY | 2021-03-17 17:03 | XMS REPORT | Continuity of Care Document ---
:1960 Author Organization [facility] Address [address] [place] [address] Care Team Providers Name Role Phone Doctor Unassigned, Name Attending Clinician Unavailable Иван Higgins MD Attending Clinician David CARDONA, M Attending Clinician Mykel DIETRICH Attending Clinician Christian DIETRICH S Attending Clinician Emelian DIETRICH Attending Clinician Jordin DIETRICH Attending Clinician Moreno Almaraz MD Attending Clinician Enriqueta COON Attending Clinician Kartik CARDONA Attending Clinician Gita DIETRICH Attending Clinician KELLY Attending Clinician Unavailable Jordin DIETRICH Admitting Clinician Gita DIETRICH Admitting Clinician KLELY Admitting Clinician Unavailable Problems Condition Condition Condition Status Onset Resolution Last Treating Co mments Source Name Details Category Date Date Treatment Clinician Date Tobacco Tobacco Disease Active [facility] St [facility] [place] Hypoxemia Hypoxemia Disease Active [facility] [place] COPD COPD Disease Active [facility] exacerbati exacerbati 6 Pema kes - on on 00:00: Medical 00 [place] Acute Acute Disease Active [facility] hypercapni hypercapni 6- Pema kes - c c 00:00: Medical respirator respirator 00 Ce nter y failure y failure Allergies, Adverse Reactions, Alerts This patient has no known allergies or adverse reactions. Social History Social Habit Start Date Stop Date Quantity Comments Source Sex Assigned At [facility] Medications Ordered Filled Start Stop [...] ID 2021-01-25 2021-01-25 Orders Doctor NESS 1.2.840.114 [id number] 00:00:00 00:00:00 Only UnassignedVIRGILIO [id number] [place] [facility] 4.2.7.2.686 [id number] 2021-01-15 2021-01-15 Orders Doctor NESS 1.2.840.114 [id number] 00:00:00 00:00:00 Only UnassignedVIRGILIO [id number] [place] [facility] 4.2.7.2.686 [id number] 2020-11-17 2020-11-17 DEEDEE Oliva 1.2.840.114 [id number] 00:00:00 00:00:00 Management [place] [facility] [id number] [facility] 42.7.2.686 CENTER [phone] [facility] 2020-11-17 2020-11-17 Transition Molly Hernandez 1.2.840.114 [id number] 00:00:00 00:00:00 of Care Viviana Person Aram [id number] [place] 4.2.7.2.686 [id number] 2020-11-12 2020-11-16 [facility] Jeronimo Hogue 1.2.840.1 [id number] 18:33:00 16:20:00 Encounter Julian Gonzales [id number] [facility] 4.2.7.2.686 Sammie Tarango [id number] Nash Brenner 095 [address] Almaraz MorenoNash Harris Krishna Moreno 2020-11-14 2020-11-14 Telephone [facility] 1.2.840.114 [id number] 00:00:00 00:00:00 MAXI baker [id number] [facility] 4.2.7.2.686 CENTER AT [id number] [place] [address] [place] [address] 2020-11-13 2020-11-13 Transition Molly Verdugo 1.2.840.114 [id number] 00:00:00 00:00:00 of Care Lizbeth Aram [id number] [place] 4.2.7.2.686 [id number] 2020-11-07 2020-11-11 [facility] Jeronimo Hogue [facility] 1.2.840.1 14 [id number] 06:48:00 14:50:00 Encounter Adán Pelayo [id number] Jeronimo Hogue 4.2.7.2.686 Adán Pelayo [place] [id number] [id number] 2020-07-12 2020-07-12 [facility] 1.2.840.114 [id number] 11:56:24 23:59:00 Encounter samuel, Pediatric 350.1.13.10 Shibi s and 4.2.7.2.686 Adult [id number] Primary [address] [place] [address] Clinic 2020-07-12 2020-07-12 Office Hillary Ybarra 1.2.840.114 [id number] 11:00:10 13:58:54 Visit samuel Pediatric [id number] Shibi s and 4.2.7.2.686 Adult [id number] Primary [address] [place] [address] 2020-07-03 2020-07-03 Orders Doctor THI 1.2.840.114 [id number] 00:00:00 00:00:00 Only Unassigned, VIRGILIO 350.1.13.10 [facility] 4.2.7.2.686 [id number] Results Test Description Test Time Test [...] NOT 1092) ACCURATE CRE ATININE CLEARANCE IN CO EDICTING GLOMERULAR FILT RATION RATE. ESTIMATED GFR [...] 0-0 (AKER) (test code = 413) 0.00POCT-GLUCOSE [id number] 17:50:00 Test Item Value Reference Range Interpretation Comments POC-GLUCOSE METER 118 mg/dL 70-110 H TESTED AT [place] [address] ([facility]) (test code = KISHA Pabon [facility] 1538) [address] POCT-GLUCOSE [id number] 11:59:00 Test Item Value Reference Range Interpretation Comments POC-GLUCOSE METER 247 mg/dL 70-110 H TESTED AT [place] [address] ([facility]) ([facility] = [facility] 1538) [address] POCT-GLUCOSE [id number] 07:54:00 Test Item Value Reference Range Interpretation Comments POC-GLUCOSE METER 141 mg/dL 70-110 H TESTED AT [place] [address] ([facility]) (test code = [facility] 1538) [address] CBC W/PLT COUNT & AUTO [id number] 03:45:00 Test Item Value Reference Range Interpretation Comments WHITE BLOOD CELL COUNT ([facility]) 4.9 K/ L 4.0-10.0 (test [...] K/ L 0.00-0.20 (test code = 417) [id number] 03:29:00 Test Item Value Reference Range Interpretation Comments MAGNESIUM (BEAKER) 1.8 mg/dL 1.6-2.6 Specimen slightly (test code = 627) hemolyzed BASIC METABOLIC [id number] 03:29:00 Test Item Value Reference Range Interpretation [...] NOT APPLICABLE FOR DIALYSIS PATIEN TS. POCT-GLUCOSE [id number] 00:05:00 Test Item Value Reference Range Interpretation Comments POC-GLUCOSE METER 117 mg/dL 70-110 H TESTED AT [facility] (test code = [facility] 1538) [address] POCT-GLUCOSE [id number] 18:17:00 Test Item Value Reference Range Interpretation Comments POC-GLUCOSE METER 141 mg/dL 70-110 H TESTED AT [facility] 6720 [facility] (test code = [facility] 1538) [id number] CREATINE KINASE (CK), TOTAL AND [id number] 15:43:00 Test Item Value Reference Range Interpretation Comments CREATINE KINASE TOTAL (BEAKER) 31 U/L 29-200 (test code = 380) CREATINE KINASE-MB (BEAKER) (test 1.3 ng/mL 0.0-6.6 code = 750) CREATINE KINASE-MB INDEX (BEAKER) 4.2 % (test code = 395) Effective 08/09/2014: CK-MB Reference Range ChangeNew: 0.0-6.6 Previous: 0.0-4.9CK-MB Reference Range:<6.7 Normal6.7-10.0 Borderline>10.0 AbnormalBLOOD GAS, [id number] 15:26:00 Test Item Value Reference Range Interpretation [...] (test code = 1819) 35.0 % POCT-GLUCOSE [id number] 11:45:00 Test Item Value Reference Range Interpretation Comments POC-GLUCOSE METER 122 mg/dL 70-110 H TESTED AT [facility] 6720 (BEAKER) (test code = [facility]ARC[facility] 1538) [id number] CREATINE KINASE (CK), TOTAL AND [id number] 10:29:00 Test Item Value Reference Range Interpretation Comments CREATINE KINASE TOTAL (BEAKER) 31 U/L 29-200 (test code = 380) CREATINE KINASE-MB (BEAKER) (test 1.5 ng/mL 0.0-6.6 code = 750) CREATINE KINASE-MB INDEX (BEAKER) 4.8 % (test code = 395) Effective 08/09/2014: CK-MB Reference Range ChangeNew: 0.0-6.6 Previous: 0.0-4.9CK-MB Reference Range:<6.7 Normal6.7-10.0 Borderline>10.0 AbnormalTROPONIN [id number] 10:29:00 Test Item Value Reference Range Interpretation [...] renalfailure, acidosis, acute neurological disease, and persistent tachyarrhythmia.[id number] 10:22:00 Test Item Value Reference Range Interpretation Comments PARTIAL THROMBOPLASTIN TIME 22.5 seconds 22.5-36.0 (BEAKER) (test code = 760) PROTHROMBIN [id number] 10:21:00 Test Item Value Reference Range Interpretation Comments PROTIME (BEAKER) (test code = 12.4 seconds 11.7-14.7 759) INR (BEAKER) (test code = 370) 0.9 <=5.9 RECOMMENDED COUMADIN/WARFARIN INR THERAPY RANGESSTANDARD DOSE: 2.0 - 3.0 Includes: PROPHYLAXIS forvenous thrombosis, systemic embolization; TREATMENT for venous thrombosis and/or pulmonary embolus.HIGH RISK: Target INR is 2.5-3.5 for patients with mechanical heart valves.BLOOD GAS, [id number] 10:17:00 Test Item Value Reference Range Interpretation [...] (test code = 1819) 40.0 % PLATELET [id number] 10:13:00 Test Item Value Reference Range Interpretation Comments PLATELET COUNT (BEAKER) (test 111 K/CU MM 150-430 L code = 756)
[2021-03-17 17:26] LABS: Arterial Blood Carboxyhemoglob 1.6 % (0-1.5); Blood Gas Oxyhemoglobin 96.8 % (94-97); Blood O2 Saturation 99.6 % (92-98.5)
--- NOTE | 2021-03-17 17:36 | ER ---
Nurse's Notes [facility] Name: Vikki Zamudio Age: 60 yrs Sex: Female : 1960 Arrival Date: 03/17/2021 Time: 17:06 Bed 3 Private MD: Diagnosis: Dyspnea, unspecified;Obesity, unspecified;Chronic obstructive pulmonary disease with (acute) exacerbation;Respiratory failure, unspecified with hypercapnia;Acidosis-respiratory Presentation: 03/17 17:06 Chief complaint: EMS states: SOB pt was at daughters house and became SOB. pt uses 6L tr6 NC PRN. per EMS, pt was found SPO2 in the 30s. pt was placed on NRB \T\ 15 L and brought up to 98%. currently in ED pt on NRB O2 sat 100%. Coronavirus screen: At this time, unable to obtain information related to travel outside the [place] Ebola Screen: No symptoms or risks identified at this time. Initial Sepsis Screen: Does the patient meet any 2 criteria? RR > 20 per min. Does the patient have a suspected source of infection?. Risk Assessment: Do you want to hurt yourself or someone else? Patient reports no desire to harm self or others. Onset of symptoms was March 17, 2021. 17:06 Method Of Arrival: EMS: [facility] tr6 17:06 Acuity: LIZETH 2 tr6 Historical: - Allergies: 17:16 Codeine; tr6 - PMHx: 18:36 CHF; GERD; COPD; High Cholesterol; Hypertension; Panic Attacks; Hypothyroidism; Sleep kg Apnea; - Immunization history:: Adult Immunizations unknown. - Social history:: Smoking status: unknown. Screenin:16 Abuse screen: Denies threats or abuse. Denies injuries from another. Nutritional tr6 screening: No deficits noted. Tuberculosis screening: No symptoms or risk factors identified. Fall Risk None identified. Pneumonia Screening: Shortness of Breath (3pts), Total Score: 2 Pts or < (Low Risk) Monitor patient for changes in condition and report to provider. Assessment: 17:19 Reassessment: MD Toure at bedside to assess pt. tr6 17:58 General: Appears distressed, Behavior is calm, cooperative, drowsy, quiet. Pain: Denies kg pain. Pain: Denies pain. Neuro: Level of Consciousness is obeys commands, drowsy. Oriented to person, place, time, situation, Appropriate for age. Cardiovascular: No deficits noted. Heart tones S1 S2 Capillary refill < 3 seconds Rhythm is sinus rhythm. Respiratory: Reports shortness of breath at rest on exertion labored breathing Airway is patent Trachea midline Respiratory effort is labored, with retractions, Respiratory pattern is tachypnea Patient placed on BiPAP: Breath sounds are diminished bilaterally. the patient has moderate shortness of breath. GI: Abdomen is obese. : No deficits noted. EENT: No deficits noted. 19:24 General: Appears in no apparent distress. comfortable, Behavior is calm, cooperative. rr5 Neuro: Level of Consciousness is awake, alert, obeys commands, Oriented to person, place, time. Cardiovascular: Capillary refill < 3 seconds Patient's skin is warm and dry. Respiratory: Airway is patent Respiratory effort is even, unlabored, Respiratory pattern is regular, symmetrical. GI: Abdomen is obese. Derm: Skin is intact, Skin temperature is warm. Musculoskeletal: Capillary refill < 3 seconds. 20:10 Reassessment: refused for BIPAP machine take off the mask, she stated I want on nasal rr5 cannula. encouraged to put the machine back but opted to be on cannula. 20:21 Reassessment: patient hooked back to BIPAP. rr5 21:21 Reassessment: Patient appears in no apparent distress at this time. resting on side rr5 lying position complaints made. awaiting for ICU room to be available. 22:33 Reassessment: Patient and/or family updated on plan of care and expected duration. Pain ea level reassessed. Pt alert and oriented x 3. Pt admitted to ED ICU. Report given to receiving nurse. Pt denies pain at this time. Pt moved to ED ICU via stretcher per ED nurse and respiratory, pt tolerating well. Vital Signs: 17:06 Pulse 78; Resp 23; Pulse Ox 100% on 15% Non-rebreather mask; Height 5 ft. 3 in. (160.02 tr6 cm); 17:33 BP 100 / 73; Pulse 106; Resp 20; Pulse Ox 97% on BiPAP; kg 18:30 BP 102 / 62; Pulse 69; Resp 20; Pulse Ox 93% on R/A; kg 19:23 BP 112 / 71; Pulse 64; Resp 19; Temp 97; Pulse Ox 100% on 15% Nebulizer Mask; rr5 19:25 Weight 114.76 kg; rr5 20:15 BP 97 / 62; Pulse 95; Resp 20; Pulse Ox 85% on 6 lpm NC; rr5 20:21 Pulse Ox 100% on BiPAP; rr5 21:20 BP 107 / 94; Pulse 72; Resp 19; Pulse Ox 92% on 40% BiPAP; rr5 22:34 BP 115 / 66; Pulse 70; Resp 20; Temp 97.2; Pulse Ox 93% on BiPAP; ea 19:25 Body Mass Index 44.82 (114.76 kg, 160.02 cm) rr5 ED Course: 17:06 Patient arrived in ED. iw 17:10 Po Toure MD is Attending Physician. chato 17:12 Pattie Davila, RN is Primary Nurse. kg 17:14 Triage completed. tr6 17:16 Patient has correct armband on for positive identification. Bed in low position. Call tr6 light in reach. Side rails up X2. monitor worker on. Pulse ox on. NIBP on. Door closed. Noise minimized. Visitors limited. Lights dimmed. Moved to private room. Diet: Patient is NPO. 17:16 No provider procedures requiring assistance completed. tr6 17:34 Gurinder Banks DO is Hospitalizing Provider. chato 17:51 XRAY Chest (1 view) In Process Unspecified. EDMS 17:57 El An MD is Hospitalizing Provider. la1 18:25 BIPAP Sent. kg 18:25 Basic Metabolic Panel Sent. kg 18:25 LFT's Sent. kg 18:25 Magnesium Sent. kg 18:25 NT PRO-BNP Sent. kg 18:25 Troponin (emerg Dept Use Only) Sent. kg 19:31 Primary Nurse role handed off by Pattie Davila, RN mw2 19:38 Arm band placed on right wrist. Patient placed in an exam room, on a stretcher, on ea pulse oximetry. 19:38 Patient admitted, IV remains in place. ea 19:45 El Vance RN is Primary Nurse. rr5 Administered Medications: 17:50 Drug: Xopenex (levalbuterol) 3.75 mg Route: Inhalation; tr6 17:50 Drug: AtroVENT (ipratropium) Aerosol 0.5 mg Route: Inhalation; tr6 17:50 Drug: NS 0.9% 1000 ml Route: IV; Rate: 125 ml/hr; Site: left antecubital; tr6 19:44 Follow up: Response: No adverse reaction; IV Status: Infusion continued upon admission ea 17:50 Drug: levofloxacin 500 mg Volume: 100 ml; Route: IVPB; Infused Over: 60 mins; Site: tr6 left antecubital; 19:00 Follow up: Response: No adverse reaction; IV Status: Completed infusion ea 17:51 Drug: SOLU-Medrol (methylPrednisoLONE) 125 mg Route: IVP; Site: left antecubital; tr6 19:44 Follow up: Response: No adverse reaction ea 19:17 Drug: Xopenex (levalbuterol) 2.5 mg Route: Inhalation; rr5 19:27 Drug: Decadron - Dexamethasone 10 mg Route: IVP; Site: left antecubital; rr5 19:45 Follow up: Response: No adverse reaction ea Outcome: 17:35 Decision to Hospitalize by Provider. chato 19:37 Instructed on the need for admit, Demonstrated understanding of instructions. ea 22:32 Admitted to ICU accompanied by nurse, room ER treatment room, with chart, Report called ea to Receiving nurse in ICU 22:32 Condition: stable 22:38 Patient left the ED. ea Signatures: Dispatcher [employer] EDPo Soriano MD MD cha Williams, Irene, RN Rishi Douglas, PAPER SPOOLER-C PAPER SPOOLER-Cla1 Mary Ellen Villanueva RN RN Renard Lei mw2 El Vance RN RN rr5 Mary Kay Todd RN RN tr6 Pattie Davila RN RN kg Corrections: (The following items were deleted from the chart) 21:22 21:21 Reassessment: Patient appears in no apparent distress at this time. resting on rr5 side lying position complaints made. awaiting for ICU available rr5
--- NOTE | 2021-03-17 17:36 | EDPHYS ---
Physician Documentation [facility] Name: Vikki Zamudio Age: 60 yrs Sex: Female : 1960 Arrival Date: 03/17/2021 Time: 17:06 Bed 3 Private MD: ED Physician Po Toure HPI: 03/17 17:25 This 60 yrs old Female presents to ER via EMS with complaints of dyspnea, chato copd exacerbation. 17:25 The patient has shortness of breath at rest. Onset: The symptoms/episode began/occurred chato 2 day(s) ago. Duration: The symptoms are continuous, and are steadily getting worse. The patient's shortness of breath is aggravated by light activity. Associated signs and symptoms: Pertinent positives: non-productive cough. Severity of symptoms: At their worst the symptoms were moderate in the emergency department the symptoms have improved mildly. The patient has not experienced similar symptoms in the past. Historical: - Allergies: 17:16 Codeine; tr6 - PMHx: 18:36 CHF; GERD; COPD; High Cholesterol; Hypertension; Panic Attacks; Hypothyroidism; Sleep kg Apnea; - Immunization history:: Adult Immunizations unknown. - Social history:: Smoking status: unknown. ROS: 17:29 Constitutional: Negative for fever, chills, and weight loss, Eyes: Negative for injury, chato pain, redness, and discharge, ENT: Negative for injury, pain, and discharge, Neck: Negative for injury, pain, and swelling, Cardiovascular: Negative for chest pain, palpitations, and edema, Abdomen/GI: Negative for abdominal pain, nausea, vomiting, diarrhea, and constipation, Back: Negative for injury and pain, : Negative for injury, bleeding, discharge, and swelling, MS/Extremity: Negative for injury and deformity, Skin: Negative for injury, rash, and discoloration, Neuro: Negative for headache, weakness, numbness, tingling, and seizure, Psych: Negative for depression, anxiety, suicide ideation, homicidal ideation, and hallucinations, Allergy/Immunology: Negative for hives, rash, and allergies, Endocrine: Negative for neck swelling, polydipsia, polyuria, polyphagia, and marked weight changes, Hematologic/Lymphatic: Negative for swollen nodes, abnormal bleeding, and unusual bruising. 17:29 Respiratory: Positive for cough, shortness of breath, at rest. Exam: 17:29 Constitutional: This is a well developed, well nourished patient who is awake, alert, chato and in no acute distress. Head/Face: Normocephalic, atraumatic. Eyes: Pupils equal round and reactive to light, extra-ocular motions intact. Lids and lashes normal. Conjunctiva and sclera are non-icteric and not injected. Cornea within normal limits. Periorbital areas with no swelling, redness, or edema. ENT: Nares patent. No nasal discharge, no septal abnormalities noted. Tympanic membranes are normal and external auditory canals are clear. Oropharynx with no redness, swelling, or masses, exudates, or evidence of obstruction, uvula midline. Mucous membranes moist. Neck: Trachea midline, no thyromegaly or masses palpated, and no cervical lymphadenopathy. Supple, full range of motion without nuchal rigidity, or vertebral point tenderness. No Meningismus. Chest/axilla: Normal chest wall appearance and motion. Nontender with no deformity. No lesions are appreciated. Cardiovascular: Regular rate and rhythm with a normal S1 and S2. No gallops, murmurs, or rubs. Normal PMI, no JVD. No pulse deficits. Abdomen/GI: Soft, non-tender, with normal bowel sounds. No distension or tympany. No guarding or rebound. No evidence of tenderness throughout. Back: No spinal tenderness. No costovertebral tenderness. Full range of motion. Skin: Warm, dry with normal turgor. Normal color with no rashes, no lesions, and no evidence of cellulitis. MS/ Extremity: Pulses equal, no cyanosis. Neurovascular intact. Full, normal range of motion. Neuro: Awake and alert, GCS 15, oriented to person, place, time, and situation. Cranial nerves II-XII grossly intact. Motor strength 5/5 in all extremities. Sensory grossly intact. Cerebellar exam normal. Normal gait. Psych: Awake, alert, with orientation to person, place and time. Behavior, mood, and affect are within normal limits. 17:29 Respiratory: mild respiratory distress is noted, Respirations: labored breathing, that is mild, Breath sounds: decreased breath sounds, that are severe, are heard in the left posterior upper lobe, right posterior upper lobe, left posterior lower lobe, right posterior middle lobe and right posterior lower lobe, Respiratory rate: 23 18:07 ECG was reviewed by the Attending Physician. chato 18:17 ECG was reviewed by the Attending Physician. chato Vital Signs: 17:06 Pulse 78; Resp 23; Pulse Ox 100% on 15% Non-rebreather mask; Height 5 ft. 3 in. (160.02 tr6 cm); 17:33 BP 100 / 73; Pulse 106; Resp 20; Pulse Ox 97% on BiPAP; kg 18:30 BP 102 / 62; Pulse 69; Resp 20; Pulse Ox 93% on R/A; kg 19:23 BP 112 / 71; Pulse 64; Resp 19; Temp 97; Pulse Ox 100% on 15% Nebulizer Mask; rr5 19:25 Weight 114.76 kg; rr5 20:15 BP 97 / 62; Pulse 95; Resp 20; Pulse Ox 85% on 6 lpm NC; rr5 20:21 Pulse Ox 100% on BiPAP; rr5 21:20 BP 107 / 94; Pulse 72; Resp 19; Pulse Ox 92% on 40% BiPAP; rr5 22:34 BP 115 / 66; Pulse 70; Resp 20; Temp 97.2; Pulse Ox 93% on BiPAP; ea 19:25 Body Mass Index 44.82 (114.76 kg, 160.02 cm) rr5 MDM: 17:10 Patient medically screened. chato 17:32 Differential diagnosis: CHF exacerbation, Chronic Obstructive Pulmonary Disease chato pneumonia, Pneumothorax pulmonary edema, Pulmonary Embolism reactive airway disease, Unstable Angina. Antibiotic administration: Levaquin given. The patient's Wells Deep Vein Thrombosis Score was calculated as follows: Total Score: 0-2 Pts- Low Risk. The patient's pulmonary embolism risk score was calculated as follows: Total Score: 0-2 points. This patient was found to be at low risk for a pulmonary embolism by using the Well's assessment criteria. Immunization status: Influenza vaccine: within last 5 years. Data reviewed: vital signs, nurses notes, lab test result(s), EKG, radiologic studies, plain films. Data interpreted: cuff runner: rate is 78 beats/min, rhythm is regular, Pulse oximetry: on room air is 78 %. Test interpretation: by ED physician or midlevel provider: ECG, plain radiologic studies. Counseling: I had a detailed discussion with the patient and/or guardian regarding: the historical points, exam findings, and any diagnostic results supporting the discharge/admit diagnosis, lab results. 03/17 17:12 Order name: Basic Metabolic Panel [facility] 03/17 17:12 Order name: CBC with Diff; Complete Time: 20:20 [facility] 03/17 17:12 Order name: LFT's [facility] 03/17 17:12 Order name: Magnesium [facility] 03/17 17:12 Order name: NT PRO-BNP [facility] 03/17 17:12 Order name: PT-INR; Complete Time: 18:34 [facility] 03/17 17:12 Order name: Troponin (emerg Dept Use Only); Complete Time: 18:47 [facility] 03/17 17:12 Order name: Blood Culture Adult (2) [facility] 03/17 17:12 Order name: Lactate; Complete Time: 18:34 [facility] 03/17 17:12 Order name: ABG; Complete Time: 18:02 [facility] 03/17 17:13 Order name: Basic Metabolic Panel; Complete Time: 18:47 [facility] 03/17 17:13 Order name: Liver (Hepatic) Function; Complete Time: 18:47 [facility] 03/17 17:13 Order name: Magnesium; Complete Time: 18:47 [facility] 03/17 17:12 Order name: XRAY Chest (1 view); Complete Time: 18:34 [facility] 03/17 17:12 Order name: EKG; Complete Time: 17:13 [facility] 03/17 17:12 Order name: Cardiac monitoring; Complete Time: 17:32 [facility] 03/17 17:12 Order name: EKG - Nurse/Tech; Complete Time: 18:26 [facility] 03/17 17:12 Order name: BIPAP [facility] 03/17 17:13 Order name: NT PRO-BNP; Complete Time: 18:47 [facility] 03/17 17:15 Order name: Flu; Complete Time: 18:34 [facility] 03/17 18:54 Order name: SARS-COV-2 RT PCR; Complete Time: 20:20 [facility] 03/17 19:36 Order name: CBC Smear Scan; Complete Time: 20:20 [facility] 03/17 17:12 Order name: IV Saline Lock; Complete Time: 17:32 [facility] 03/17 17:12 Order name: Labs collected and sent; Complete Time: 17:32 [facility] 03/17 17:12 Order name: O2 Per Protocol; Complete Time: 17:32 [facility] 03/17 17:12 Order name: O2 Sat Monitoring; Complete Time: 17:32 chato EC:07 Rate is 63 beats/min. Rhythm is regular. QRS [place] is Normal. PA interval is normal. QRS chato interval is normal. QT interval is normal. No Q waves. T waves are Normal. No ST changes noted. Clinical impression: Abnormal EKG without significant change and No evidence of ischemia. Interpreted by me. Reviewed by me. 18:17 Rate is 60 beats/min. Rhythm is regular. QRS [place] is Normal. PA interval is normal. QRS chato interval is normal. QT interval is normal. No Q waves. T waves are Normal. No ST changes noted. Clinical impression: Sinus bradycardia. Interpreted by me. Reviewed by me. Administered Medications: 17:50 Drug: Xopenex (levalbuterol) 3.75 mg Route: Inhalation; tr6 17:50 Drug: AtroVENT (ipratropium) Aerosol 0.5 mg Route: Inhalation; tr6 17:50 Drug: NS 0.9% 1000 ml Route: IV; Rate: 125 ml/hr; Site: left antecubital; tr6 19:44 Follow up: Response: No adverse reaction; IV Status: Infusion continued upon admission ea 17:50 Drug: levofloxacin 500 mg Volume: 100 ml; Route: IVPB; Infused Over: 60 mins; Site: tr6 left antecubital; 19:00 Follow up: Response: No adverse reaction; IV Status: Completed infusion ea 17:51 Drug: SOLU-Medrol (methylPrednisoLONE) 125 mg Route: IVP; Site: left antecubital; tr6 19:44 Follow up: Response: No adverse reaction ea 19:17 Drug: Xopenex (levalbuterol) 2.5 mg Route: Inhalation; rr5 19:27 Drug: Decadron - Dexamethasone 10 mg Route: IVP; Site: left antecubital; rr5 19:45 Follow up: Response: No adverse reaction ea Disposition: 03/17/21 17:35 Hospitalization ordered by El An for Inpatient Admission. Preliminary diagnosis are Dyspnea, unspecified, Obesity, unspecified, Chronic obstructive pulmonary disease with (acute) exacerbation, Respiratory failure, unspecified with hypercapnia, Acidosis - respiratory. - Bed requested for Intensive Care Unit. - Status is Inpatient Admission. ea - Condition is Fair. - Problem is new. - Symptoms have improved. Signatures: Dispatcher [employer] EDMS Po Toure MD MD cha Attema, Lee, DOORKEEPER-C DOORKEEPER-Cla1 Mary Ellen Villanueva, RN RN ea Renard Lei mw2 El Vance, RN RN rr5 Mary Kay Todd, RN RN tr6 Pattie Davila, DULCE RN kg Corrections: (The following items were deleted from the chart) 17:53 17:13 CORONAVIRUS+MR.LAB.BRZ ordered. [facility] 17:57 17:35 Hospitalization Ordered by Gurinder Banks DO for Inpatient Admission. Preliminary la1 diagnosis is Dyspnea, unspecified; Obesity, unspecified; Chronic obstructive pulmonary disease with (acute) exacerbation; Respiratory failure, unspecified with hypercapnia; Acidosis - respiratory. Bed requested for Telemetry/MedSurg (Inpatient). Status is Inpatient Admission. Condition is Fair. Problem is new. Symptoms have improved. [facility] 17:59 17:57 03/17/2021 17:35 Hospitalization Ordered by El An MD for Inpatient la1 Admission. Preliminary diagnosis is Dyspnea, unspecified; Obesity, unspecified; Chronic obstructive pulmonary disease with (acute) exacerbation; Respiratory failure, unspecified with hypercapnia; Acidosis - respiratory. Bed requested for Telemetry/MedSurg (Inpatient). Status is Inpatient Admission. Condition is Fair. Problem is new. Symptoms have improved. oh1 22:15 17:59 03/17/2021 17:35 Hospitalization Ordered by El An MD for Inpatient mw2 Admission. Preliminary diagnosis is Dyspnea, unspecified; Obesity, unspecified; Chronic obstructive pulmonary disease with (acute) exacerbation; Respiratory failure, unspecified with hypercapnia; Acidosis - respiratory. Bed requested for Intensive Care Unit. Status is Inpatient Admission. Condition is Fair. Problem is new. Symptoms have improved. la1 22:38 22:15 03/17/2021 17:35 Hospitalization Ordered by El An MD for Inpatient ea Admission. Preliminary diagnosis is Dyspnea, unspecified; Obesity, unspecified; Chronic obstructive pulmonary disease with (acute) exacerbation; Respiratory failure, unspecified with hypercapnia; Acidosis - respiratory. Bed requested for Intensive Care Unit. Status is Inpatient Admission. Condition is Fair. Problem is new. Symptoms have improved. mw2
[2021-03-17] MEDS ORDERED: NA CHLORIDE 0.9% 1,000 ML ONE (18:00)
[2021-03-17] MEDS ORDERED: METHYLPREDNISOLONE 125 MG INJ ONE (18:00)
[2021-03-17] MEDS ORDERED: LEVALBUTEROL 1.25 MG/3 ML NEB ONE ×2 (18:00→19:29)
[2021-03-17] MEDS ORDERED: Levofloxacin500mg IV 500 MG/100 ML BAG IV ONE (18:00)
[2021-03-17] MEDS ORDERED: IPRATROPIUM BROM 0.5MG/2.5ML ONE (18:00)
[2021-03-17 18:03] LABS: Absolute Lymphocytes (CBC) 0.7 K/uL (0.7-4.9); Basophils % 0.1 % (0-1.3); Hematocrit 38.8 % (36.0-45.0); Lymphocytes % 10.3 % (15.3-44.8); MPV 8.5 fL (7.6-11.3); RBC Red Blood Cell Count 4.42 M/uL (3.86-4.86)
[2021-03-17 18:11] LABS: Protime INR 0.91
--- NOTE | 2021-03-17 18:18 | RAD REPORT ---
EXAM DESCRIPTION: RAD - Chest Single View - 03/17/2021 5:51 pm CLINICAL HISTORY: COPD;Cough COMPARISON: Portable March 13 TECHNIQUE: AP portable chest image was obtained 03/17/2021 5:51 pm . FINDINGS: Lung volumes are low. No peripheral mass consolidation. Interstitial pattern is accentuate d by the low lung volumes, not substantially different from comparison. Hilar regions within normal l imits and similar to comparison. Heart and vasculature are normal. No measurable pleural effusion and no pneumothorax. No acute bony abnormality seen. No acute aortic findings suspected. IMPRESSION: Limited portable examination without acute cardiopulmonary finding. No significant change from comparison.
[2021-03-17 18:37] LABS: ALT/SGPT 53 U/L (12-78); AST/SGOT 21 U/L (15-37); Albumin 3.4 g/dL (3.4-5.0); Alkaline Phosphatase 76 U/L (45-117); BUN Blood Urea Nitrogen 16 mg/dL (7-18); Bilirubin Direct 0.1 mg/dL (0-0.2); Bilirubin Total 0.5 mg/dL (0.2-1.0); Glucose Level 161 mg/dL (74-106); Magnesium 2.2 mg/dL (1.8-2.4); NT PRO-BNP 885 pg/mL (<125); Potassium 4.5 mmol/L (3.5-5.1); Protein, Total 6.8 g/dL (6.4-8.2); Sodium Level 140 mmol/L (136-145); Troponin (Emerg Dept Use Only) < 0.02 ng/mL (0.0-0.045)
[2021-03-17 18:39] LABS: Bicarbonate 43 mmol/L (21-32)
--- NOTE | 2021-03-17 18:43 | P.HP ---
Certification for Inpatient Patient admitted to: Inpatient With expected LOS: >2 Midnights Patient will require the following post-hospital care: None Practitioner: I am a practitioner with admitting privileges, knowledge of patient current condition, hospital course, and medical plan of care. Services: Services provided to patient in accordance with Admission requirements found in Title 42 Section 412.3 of the Code of Federal Regulations Patient History Date of Service: 03/17/21 Primary Care Provider: Dr. Howard Reason for admission: Acute respiratory failure History of Present Illness: 60-year-old female with severe COPD done home oxygen/anion the/chronic steroid therapy at home, VIVEK, hypothyroidism, GERD presents emergency department in respiratory distress. Patient with multiple admissions for similar in the past, patient reports she was at a family event in using her nasal cannula at the time when she became very short of breath. Up laterally emergency department patient in respiratory distress and placed on BiPAP, initially ABG demonstrates pCO2 133 pH 7.14, PO2 375 without abnormal lactic acid 0.6 chest x- ray are unremarkable. Patient drowsy but alert/oriented, discussed patient's wishes, patient is admit that she does not want to be intubated even if she would otherwise , patient does wish for chest compressions/defibrillation/chemical resuscitation otherwise. ED provider wishes to admit for acute respiratory failure to the ICU. Allergies codeine [Codeine] Adverse Reaction (Mild, Verified 02/15/21 08:47) itch Home Medications: Albuterol Sulfate [Proair Hfa] 1 puff IH QID PRN 10/23/20 Atorvastatin Calcium [Lipitor*] 20 mg PO BEDTIME 10/23/20 Gabapentin 300 mg PO BID 10/23/20 Roflumilast [Daliresp*] 500 mcg PO DAILY 10/23/20 Umeclidinium Brm/Vilanterol Tr [Anoro Ellipta 62.5-25 Mcg INH] 1 puff IN DAILY 10/23/20 clonazePAM [Klonopin*] 0.5 mg PO DAILY PRN 10/23/20 Tramadol HCl [Ultram] 50 mg PO TID PRN 30 Days #60 tablet 11/21/20 Pantoprazole [Protonix Tab*] 40 mg PO DAILY 02/14/21 Ropinirole HCl [Requip*] 1 mg PO BEDTIME 02/14/21 predniSONE [Deltasone*] 10 mg PO DAILY 03/14/21 acetaZOLAMIDE [Diamox] 250 mg PO DAILY 30 Days #30 tab 03/15/21 predniSONE [Prednisone*] 20 mg PO BID 2 Days #4 tab 03/15/21 - Past Medical/Surgical History Diabetic: No -: Severe COPD, oxygen/steroid dependent,Pulmonary-Dr. Do -: Mild pulmonary hypertension -: Hypothyroidism -: Bipolar disorder -: Hypertension -: Chronic low back pain -: Obstructive sleep apnea -: Tobacco abuse -: HLD -: GERD -: Appendectomy -: Psychosocial/ Personal History: She lives with a partner. She has 1 child. She is currently disabled. - Family History Father -: Heart disease, Hypertension, Diabetes Notes: from CHF Mother -: Heart disease, Hypertension, Diabetes Notes: from CHF Brother -: Diabetes Sister -: Heart disease, Diabetes Notes: from CHF - Social History Alcohol use: Yes CD- Drugs: No Caffeine use: Yes Review of Systems 10-point ROS is otherwise unremarkable Respiratory: Cough, Shortness of Breath, SOB with Excertion, Wheezing Physical Examination - Physical Exam General: In no apparent distress, Oriented x3, Obese, Other (Drowsy) HEENT: Atraumatic, PERRLA, Mucous membr. moist/pink, EOMI, Sclerae nonicteric Neck: Supple, 2+ carotid pulse no bruit, No LAD, Without JVD or thyroid abnormality Respiratory: Other (Dyspnea, tachypneic, expiratory wheezing, diminished bilaterally) Cardiovascular: Regular rate/rhythm, Normal S1 S2 Gastrointestinal: Normal bowel sounds, No tenderness Musculoskeletal: No tenderness Integumentary: No rashes Neurological: Normal speech, Normal strength at 5/5 x4 extr, Normal tone, Normal affect - Studies Laboratory Data (last 24 hrs) 03/17/21 17:50: PT 10.5, INR 0.91 03/17/21 17:50: WBC 6.80 D, Hgb 11.5 L, Hct 38.8 D, Plt Count 147 L Microbiology Data (last 24 hrs): 03/17/21 17:46 Nasopharnyx Influenza Type A Antigen Screen - Final 03/17/21 17:46 Nasopharnyx Influenza Type B Antigen Screen - Final Assessment and Plan - Plan Assessment Acute on chronic hypercapnic, hypoxic respiratory failure secondary to severe COPD with exacerbation on home oxygen with NC, NIV and chronic steroid therapy Hypothyroidism Hypertension VIVEK BPD GERD Plan Acute on chronic hypercapnic, hypoxic respiratory failure secondary to severe COPD with exacerbation on home oxygen with NC, NIV and chronic steroid therapy: Continue with BiPAP continuously, monitor pulse ox. Patient wishes for DNI. Will monitor in the ICU, daily ABG, labs. No sign of infection, fever, chest x- ray negative. Continue steroids, scheduled nebs, home medications. Pulmonology consulted. DVT prophylaxis Lovenox 40 mg subcutaneous once daily. Anticipate clinical improvement over the course next 24-48 hr. Patient will need to increase her usage of her NIV at home, may need to consider hospice. Hypothyroidism: Continue home meds Hypertension: Continue home meds adjust as necessary VIVEK: Continue with BiPAP BPD: Continue home meds GERD: Continue home meds Discharge Plan: Home Plan to discharge in: Greater than 2 days - Advance Directives Does patient have a Living Will: No Does patient have a Durable POA for Healthcare: No - Code Status/Comfort Care Code Status Assessed: Yes (DNI) Critical Care: No Time Spent Managing Pts Care (In Minutes): 55
[2021-03-17 19:36] LABS: Blood Morphology Comment NOT SEEN (NOT SEEN); Platelet Estimate DECR; White Blood Cell Scan OK (OK)
[2021-03-17] MEDS ORDERED: dexAMETHasone 10 MG/ML VIAL ONE (19:48)
[2021-03-17] MEDS: ATORVASTATIN 20 MG TAB PO SCH (23:09)
[2021-03-17] MEDS: ROPINIROLE HCL 1 MG TAB PO SCH (23:09)
[2021-03-17] MEDS ORDERED: ONDANSETRON 4 MG/2 ML VIAL IV PRN (23:09)
[2021-03-17] MEDS: GABAPENTIN 300 MG CAP PO SCH (23:09)
[2021-03-17 23:50] LABS: Urine Appearance CLOUDY (Clear); Urine Blood NEGATIVE (Negative); Urine Color DK YELLOW (Yellow); Urine Glucose NEGATIVE (Negative); Urine Protein 2+ (Negative); Urine Specific Gravity 1.025 (1.005-1.030)
[2021-03-17 23:55] LABS: Urine Bilirubin NEGATIVE (Negative); Urine Microscopic Reflex ORDER UMIC
[2021-03-18 00:17] LABS: Urine Amorphous Sediment 1+ /HPF (NONE SEEN); Urine Bacteria >50 /HPF (<20); Urine Mucus 2+ /HPF (NONE SEEN); Urine RBC <5 /HPF (NONE SEEN)
[2021-03-18 00:19] VITALS: BMI 44.8
[2021-03-18] MEDS ORDERED: METHYLPREDNISOLONE 125 MG INJ ONE ×2 (00:23→11:08)
[2021-03-18] MEDS ORDERED: ATORVASTATIN 20 MG TAB ONE ×2 (00:24→20:37)
[2021-03-18] MEDS ORDERED: GABAPENTIN 300 MG CAP ONE ×3 (00:24→20:38)
[2021-03-18] MEDS ORDERED: ROPINIROLE HCL 1 MG TAB ONE (00:53)
[2021-03-18 05:44] LABS: Arterial Blood Carboxyhemoglob 1.7 % (0-1.5); Blood Gas Oxyhemoglobin 90.6 % (94-97); Blood O2 Saturation 93.1 % (92-98.5)
[2021-03-18 05:57] LABS: Absolute Lymphocytes (CBC) 0.4 K/uL (0.7-4.9); Basophils % 0.1 % (0-1.3); Hematocrit 32.2 % (36.0-45.0); Lymphocytes % 11.3 % (15.3-44.8); MPV 8.5 fL (7.6-11.3); RBC Red Blood Cell Count 3.72 M/uL (3.86-4.86)
[2021-03-18] MEDS: METHYLPREDNISOLONE 40 MG INJ IV SCH ×3 (06:00→10:56)
[2021-03-18 06:26] LABS: Albumin 2.7 g/dL (3.4-5.0); Bilirubin Total 0.3 mg/dL (0.2-1.0); Magnesium 2.2 mg/dL (1.8-2.4); Potassium 5.2 mmol/L (3.5-5.1); Protein, Total 5.8 g/dL (6.4-8.2)
[2021-03-18] MEDS ORDERED: PNEUMOCOCCAL VACCINE 0.5 ML IMVAC ONE (08:00)
--- NOTE | 2021-03-18 08:45 | EKG ---
Test Date: 2021-03-17 Test Time: 18:10:55 Delivery Driver Assistant: SANJIV MEASUREMENT RESULTS: Intervals: Rate: 60 MD: 144 QRSD: 84 QT: 414 QTc: 414 Triplett: P: 40 MD: 144 QRS: 63 T: 67 INTERPRETIVE STATEMENTS: Normal sinus rhythm ST elevation, consider early repolarization, pericarditis, or injury Abnormal ECG Compared to ECG 03/13/2021 14:43:06 ST (T wave) deviation now present Sinus arrhythmia no longer present Electronically Signed On 03-18-21 08:43:13 CDT by Selvin Mar
[2021-03-18] MEDS ORDERED: acetaZOLAMIDE 250 MG TAB PO SCH (09:00)
[2021-03-18] MEDS ORDERED: Umeclidinium Brm/Vilanterol Tr [Anoro Ellipta 62.5-25 Mcg Inh] IH SCH (09:00)
[2021-03-18] MEDS: ENOXAPARIN 40 MG/0.4 ML SQ SCH (09:00)
[2021-03-18] MEDS: ROFLUMILAST 500 MCG TABLET PO SCH (10:56)
[2021-03-18] MEDS: PANTOPRAZOLE 40MG TABLET PO SCH (10:56)
[2021-03-18] MEDS: acetaZOLAMIDE 250 MG TAB PO SCH (10:57)
[2021-03-18] MEDS: GABAPENTIN 300 MG CAP PO SCH ×2 (10:58→20:43)
[2021-03-18] MEDS: clonazePAM 0.5 MG TAB PO PRN ×2 (10:58→21:11)
[2021-03-18] MEDS ORDERED: clonazePAM 0.5 MG TAB ONE ×2 (11:08→20:38)
[2021-03-18] MEDS ORDERED: ENOXAPARIN 40 MG/0.4 ML SQ ONE (11:09)
[2021-03-18] MEDS ORDERED: PANTOPRAZOLE 40 MG INJ ONE (11:09)
[2021-03-18] MEDS ORDERED: PANTOPRAZOLE 40MG TABLET PO ONE (11:14)
--- NOTE | 2021-03-18 12:39 | P.PN ---
Subjective Date of Service: 03/18/21 Primary Care Provider: Dr. Howard Chief Complaint: Acute respiratory failure Subjective: Improving (breathing better, still very weak, short of breath. hypoxic. no confusion) Review of Systems 10-point ROS is otherwise unremarkable Physical Examination - Vital Signs Temperature: 97.8 F Blood Pressure: 98/78 Pulse: 80 Respirations: 28 Pulse Ox (%): 91 - Studies Laboratory Data (last 24 hrs) 03/17/21 17:50: PT 10.5, INR 0.91 03/17/21 17:50: WBC 6.80 D, Hgb 11.5 L, Hct 38.8 D, Plt Count 147 L 03/17/21 17:50: Sodium 140, Potassium 4.5, BUN 16, Creatinine 0.74, Glucose 161 H, Magnesium 2.2, Total Bilirubin 0.5, AST 21, ALT 53, Alkaline Phosphatase 76 Microbiology Data (last 24 hrs): 03/17/21 17:46 Nasopharnyx Influenza Type A Antigen Screen - Final 03/17/21 17:46 Nasopharnyx Influenza Type B Antigen Screen - Final Assessment & Plan Physician Review Additional Text: Physical Exam General: NAD, AAOx3, fatigued HEENT: EOMI, normal conjunctiva, sclera anicteric Respiratory: tachypnea, mildly labored respirations, diminished throughout Cardiovascular: Regular rate/rhythm, Normal S1 S2 Gastrointestinal: soft, no distention, mild LUQ tenderness Integumentary: No rashes Neurological: Normal speech, Normal strength at 5/5 x4 extr, Normal tone, Normal affect Problem List Acute on chronic hypercapnic, hypoxic respiratory failure secondary to severe COPD with exacerbation on home oxygen with NC, NIV and chronic steroid therapy Hypothyroidism Hypertension VIVEK BPD GERD -continue BIPAP, advised to have home NIV brought in again -daily ABG, CO2 improved, symptomatic improvement as well -no sign of infection -reduce dose of steroids, continue nebs, home meds -pulm consulted -pt left home and was on nasal cannula moving around, likely over-exerted self too early -seems she did not mushroom picker prescriptions yet, but she is unsure VTE: lovenox Code: DNI Dispo: anticipate dc home in ~24-48hrs Time Spent Managing Pts Care (In Minutes): 40
[2021-03-18 12:41] LABS: Basophilic Stippling 1+; Blood Morphology Comment NOT SEEN (NOT SEEN); Platelet Estimate ADEQ
[2021-03-18] MEDS: TRAMADOL HCL 50 MG TAB PO PRN (18:48)
[2021-03-18] MEDS ORDERED: TRAMADOL HCL 50 MG TAB ONE (19:08)
[2021-03-18] MEDS: ATORVASTATIN 20 MG TAB PO SCH (20:43)
[2021-03-18] MEDS: ROPINIROLE HCL 1 MG TAB PO SCH (21:00)
[2021-03-19 05:20] LABS: Absolute Lymphocytes (CBC) 1.1 K/uL (0.7-4.9); Hematocrit 34.9 % (36.0-45.0); Lymphocytes % 19.4 % (15.3-44.8); MPV 8.5 fL (7.6-11.3); RBC Red Blood Cell Count 4.03 M/uL (3.86-4.86)
[2021-03-19 05:21] LABS: Arterial Blood Carboxyhemoglob 1.3 % (0-1.5); Blood Gas Oxyhemoglobin 95.5 % (94-97)
[2021-03-19 05:36] LABS: ALT/SGPT 38 U/L (12-78); AST/SGOT 11 U/L (15-37); Albumin 3.2 g/dL (3.4-5.0); Alkaline Phosphatase 64 U/L (45-117); BUN Blood Urea Nitrogen 21 mg/dL (7-18); Bilirubin Total 0.2 mg/dL (0.2-1.0); Glucose Level 112 mg/dL (74-106); Magnesium 2.4 mg/dL (1.8-2.4); Potassium 5.2 mmol/L (3.5-5.1); Protein, Total 6.4 g/dL (6.4-8.2); Sodium Level 140 mmol/L (136-145)
[2021-03-19 05:41] LABS: Bicarbonate > 45 mmol/L (21-32)
--- NOTE | 2021-03-19 06:26 | P.PN ---
Subjective Date of Service: 03/19/21 Primary Care Provider: Dr. Howard Chief Complaint: Acute respiratory failure Subjective: Worsening (worsened CO2, more groggy. on home NIV all night since 9pm. spo2 down to 70s when sleeping. placed back on BIPAP this morning) Physical Examination - Vital Signs Temperature: 97.8 F Blood Pressure: 139/107 Pulse: 85 Respirations: 20 Pulse Ox (%): 97 Assessment & Plan Physician Review Additional Text: Physical Exam General: NAD, AAOx3, fatigued, falling asleep during discussion HEENT: EOMI, normal conjunctiva, sclera anicteric Respiratory: tachypnea, mildly labored respirations, diminished throughout Cardiovascular: Regular rate/rhythm, Normal S1 S2 Gastrointestinal: soft, no distention, mild LUQ tenderness Integumentary: No rashes Neurological: Normal speech, Normal strength at 5/5 x4 extr, Normal tone, Normal affect Problem List Acute on chronic hypercapnic, hypoxic respiratory failure secondary to severe COPD with exacerbation on home oxygen with NC, NIV and chronic steroid therapy Hypothyroidism Hypertension VIVEK BPD GERD -worsened ABG on home NIV, mask ill-fitting / broken strap -daily ABG, CO2 worse, pt more groggy / falling asleep during our discussion -no sign of infection -steroids, continue nebs, home meds -pulm consulted -seems to have issue with home NIV and mask, company rep to come evaluate - social secretary consulted -pt placed back on hospital BIPAP VTE: lovenox Code: DNI Dispo: anticipate dc home in ~24-48hrs Time Spent Managing Pts Care (In Minutes): 40
[2021-03-19] MEDS: PANTOPRAZOLE 40MG TABLET PO SCH ×3 (06:30→19:12)
--- NOTE | 2021-03-19 08:24 | P.CNS ---
Date of Consult: 03/19/21 Reason for Consult: Respiratory failure Primary Care Provider: Dr. Howard Chief Complaint: Acute on chronic respiratory failure History of Present Illness: Patient is 60 years of age terminal COPD current hospital admissions came in aga in was found to be short of breath unresponsive gain was very hypercapnic acidotic this morning she is also drowsy apparently she has a noninvasive ventilator at the bedside mask is [facility] patient was supposed to visit with her denies any fever chills minimal lower extremity edema Allergies codeine [Codeine] Adverse Reaction (Mild, Verified 02/15/21 08:47) itch Home Medications: Albuterol Sulfate [Proair Hfa] 1 puff IH QID PRN 10/23/20 Atorvastatin Calcium [Lipitor*] 20 mg PO BEDTIME 10/23/20 Gabapentin 300 mg PO BID 10/23/20 Roflumilast [Daliresp*] 500 mcg PO DAILY 10/23/20 Umeclidinium Brm/Vilanterol Tr [Anoro Ellipta 62.5-25 Mcg INH] 1 puff IN DAILY 10/23/20 clonazePAM [Klonopin*] 0.5 mg PO DAILY PRN 10/23/20 Tramadol HCl [Ultram] 50 mg PO TID PRN 30 Days #60 tablet 11/21/20 Pantoprazole [Protonix Tab*] 40 mg PO DAILY 02/14/21 Ropinirole HCl [Requip*] 1 mg PO BEDTIME 02/14/21 predniSONE [Deltasone*] 10 mg PO DAILY 03/14/21 acetaZOLAMIDE [Diamox] 250 mg PO DAILY 30 Days #30 tab 03/15/21 predniSONE [Prednisone*] 20 mg PO BID 2 Days #4 tab 03/15/21 - Past Medical/Surgical History Diabetic: No -: Severe COPD, oxygen/steroid dependent,Pulmonary-Dr. Do -: Mild pulmonary hypertension -: Hypothyroidism -: Bipolar disorder -: Hypertension -: Chronic low back pain -: Obstructive sleep apnea -: Tobacco abuse -: HLD -: GERD -: Appendectomy -: Psychosocial/ Personal History: She lives with a partner. She has 1 child. She is currently disabled. - Family History Father Medical History: Heart disease, Hypertension, Diabetes Notes: from CHF Mother Medical History: Heart disease, Hypertension, Diabetes Notes: from CHF Brother Medical History: Diabetes Sister Medical History: Heart disease, Diabetes Notes: from CHF - Social History Smoking Status: Unknown if ever smoked Alcohol use: Yes CD- Drugs: No Caffeine use: Yes Place of Residence: Home Review of Systems General: Weakness Respiratory: Shortness of Breath Physical Examination Temp Pulse Resp BP Pulse Ox 97.8 F 85 20 139/107 H 97 03/19/21 06:26 03/19/21 06:26 03/19/21 06:26 03/19/21 06:26 03/19/21 06:26 General: Alert, Mild distress Respiratory: Expiratory wheezes Cardiovascular: Normal S1 S2, Edema Gastrointestinal: Normal bowel sounds, Soft and benign Musculoskeletal: No clubbing, No swelling, No warmth Integumentary: No breakdown - Problems (1) Acute on chronic respiratory failure with hypoxia and hypercapnia Current Visit: No Status: Acute Plan: Patient is 60 years of age terminal COPD recurrent hospital admissions she has a noninvasive ventilator at home mask is torn of contacted [facility] patient/the come and evaluate her machine and place the mass will will monitor her on her and trilogy the for a discharging her bicarbonate significantly elevated chest x-ray in no significant changes blood pressure is mildly elevated will recheck her blood gases patient is back on hospital BiPAP
[2021-03-19] MEDS ORDERED: PANTOPRAZOLE 40MG TABLET PO SCH (09:00)
[2021-03-19] MEDS ORDERED: predniSONE 10 MG TAB PO SCH (09:00)
[2021-03-19] MEDS ORDERED: PANTOPRAZOLE 40MG TABLET PO ONE ×2 (09:35→19:30)
[2021-03-19] MEDS ORDERED: predniSONE 10 MG TAB ONE (09:35)
[2021-03-19] MEDS ORDERED: ENOXAPARIN 40 MG/0.4 ML SQ ONE (09:36)
[2021-03-19] MEDS ORDERED: GABAPENTIN 300 MG CAP ONE ×2 (09:36→20:33)
[2021-03-19 10:06] LABS: Arterial Blood Carboxyhemoglob 1.4 % (0-1.5); Blood Gas Oxyhemoglobin 89.7 % (94-97); Blood O2 Saturation 91.9 % (92-98.5)
[2021-03-19] MEDS: ENOXAPARIN 40 MG/0.4 ML SQ SCH (10:33)
[2021-03-19] MEDS: ROFLUMILAST 500 MCG TABLET PO SCH (10:33)
[2021-03-19] MEDS: acetaZOLAMIDE 250 MG TAB PO SCH (10:33)
[2021-03-19] MEDS: GABAPENTIN 300 MG CAP PO SCH ×2 (10:34→20:21)
[2021-03-19] MEDS: ALBUTEROL 2.5 MG/3 ML NEB SOL IH SCH ×2 (15:05→20:20)
[2021-03-19] MEDS: IPRATROPIUM BROM 0.5MG/2.5ML NEB SCH ×2 (15:05→20:20)
[2021-03-19] MEDS ORDERED: ALBUTEROL 2.5 MG/3 ML NEB SOL ONE ×2 (15:18→20:18)
[2021-03-19] MEDS ORDERED: IPRATROPIUM BROM 0.5MG/2.5ML ONE (15:18)
[2021-03-19] MEDS ORDERED: predniSONE 20 MG TAB ONE (17:33)
[2021-03-19] MEDS: ATORVASTATIN 20 MG TAB PO SCH (20:21)
[2021-03-19] MEDS ORDERED: ATORVASTATIN 20 MG TAB ONE (20:33)
[2021-03-19] MEDS: ROPINIROLE HCL 1 MG TAB PO SCH (21:00)
[2021-03-20] MEDS: IPRATROPIUM BROM 0.5MG/2.5ML NEB SCH ×3 (02:30→14:04)
[2021-03-20] MEDS: ALBUTEROL 2.5 MG/3 ML NEB SOL IH SCH ×3 (02:30→14:04)
[2021-03-20] MEDS ORDERED: IPRATROPIUM BROM 0.5MG/2.5ML ONE ×3 (03:08→13:32)
[2021-03-20] MEDS ORDERED: ALBUTEROL 2.5 MG/3 ML NEB SOL ONE ×3 (03:08→13:32)
[2021-03-20 05:40] LABS: Absolute Lymphocytes (CBC) 1.6 K/uL (0.7-4.9); Basophils % 0.2 % (0-1.3); Hematocrit 29.9 % (36.0-45.0); Lymphocytes % 33.1 % (15.3-44.8); MPV 8.2 fL (7.6-11.3); RBC Red Blood Cell Count 3.49 M/uL (3.86-4.86)
[2021-03-20 06:03] LABS: ALT/SGPT 27 U/L (12-78); AST/SGOT 7 U/L (15-37); Albumin 2.6 g/dL (3.4-5.0); Alkaline Phosphatase 52 U/L (45-117); BUN Blood Urea Nitrogen 23 mg/dL (7-18); Bilirubin Total 0.2 mg/dL (0.2-1.0); Glucose Level 112 mg/dL (74-106); Magnesium 2.1 mg/dL (1.8-2.4); Potassium 4.1 mmol/L (3.5-5.1); Protein, Total 5.2 g/dL (6.4-8.2); Sodium Level 143 mmol/L (136-145)
[2021-03-20 06:07] LABS: Bicarbonate > 45 mmol/L (21-32)
[2021-03-20] MEDS: TRAMADOL HCL 50 MG TAB PO PRN (08:07)
[2021-03-20] MEDS: ENOXAPARIN 40 MG/0.4 ML SQ SCH (08:09)
[2021-03-20] MEDS: PANTOPRAZOLE 40MG TABLET PO SCH (08:10)
[2021-03-20] MEDS: GABAPENTIN 300 MG CAP PO SCH (08:10)
[2021-03-20] MEDS ORDERED: PANTOPRAZOLE 40MG TABLET PO ONE (08:18)
[2021-03-20] MEDS ORDERED: predniSONE 20 MG TAB ONE (08:18)
[2021-03-20] MEDS ORDERED: GABAPENTIN 300 MG CAP ONE (08:18)
[2021-03-20] MEDS ORDERED: ENOXAPARIN 40 MG/0.4 ML SQ ONE (08:18)
[2021-03-20] MEDS ORDERED: TRAMADOL HCL 50 MG TAB ONE (08:20)
[2021-03-20] MEDS ORDERED: predniSONE 20 MG TAB PO SCH (09:00)
[2021-03-20] MEDS: acetaZOLAMIDE 250 MG TAB PO SCH (09:32)
[2021-03-20] MEDS: ROFLUMILAST 500 MCG TABLET PO SCH (09:32)
[2021-03-20 11:38] LABS: Arterial Blood Carboxyhemoglob 1.4 % (0-1.5); Blood Gas Oxyhemoglobin 77.8 % (94-97); Blood O2 Saturation 79.7 % (92-98.5)
--- NOTE | 2021-03-20 12:18 | P.PN ---
Subjective Date of Service: 03/20/21 Primary Care Provider: Dr. Howard Chief Complaint: Chronic respiratory failure Subjective: Improving (Improving more alert responsive cooperative) Review of Systems General: Weakness Respiratory: Shortness of Breath Physical Examination - Vital Signs Temperature: 98.5 F Blood Pressure: 123/73 Pulse: 82 Respirations: 24 Pulse Ox (%): 93 - Physical Exam General: Alert, In no apparent distress, Oriented x3 Respiratory: Clear to auscultation bilaterally, Diminished Assessment & Plan - Problems (Diagnosis) (1) Acute on chronic respiratory failure with hypoxia and hypercapnia Current Visit: No Status: Acute Plan: Doing much better more alert Stephane can home patient to her provided new mask review the machine settings she has chronic hypercapnia bicarb is still elevated increase Diamox Physician Review Additional Text: Physical Exam General: NAD, AAOx3, fatigued, falling asleep during discussion HEENT: EOMI, normal conjunctiva, sclera anicteric Respiratory: tachypnea, mildly labored respirations, diminished throughout Cardiovascular: Regular rate/rhythm, Normal S1 S2 Gastrointestinal: soft, no distention, mild LUQ tenderness Integumentary: No rashes Neurological: Normal speech, Normal strength at 5/5 x4 extr, Normal tone, Normal affect Problem List Acute on chronic hypercapnic, hypoxic respiratory failure secondary to severe COPD with exacerbation on home oxygen with NC, NIV and chronic steroid therapy Hypothyroidism Hypertension VIVEK BPD GERD -worsened ABG on home NIV, mask ill-fitting / broken strap -daily ABG, CO2 worse, pt more groggy / falling asleep during our discussion -no sign of infection -steroids, continue nebs, home meds -pulm consulted -seems to have issue with home NIV and mask, company rep to come evaluate -soci al services consulted -pt placed back on hospital BIPAP VTE: lovenox Code: DNI Dispo: anticipate dc home in ~24-48hrs
--- NOTE | 2021-03-20 14:07 | P.DS ---
Admission Date: 03/17/21 Discharge Date: 03/20/21 Primary Care Provider: Dr. Howard Disposition: DC HOME/HOME HEALTH CARE Discharge Condition: FAIR Reason for Admission: Acute on chronic respiratory failure - Problems (1) Acute on chronic respiratory failure with hypoxia and hypercapnia Status: Acute (2) Acute exacerbation of chronic obstructive airways disease Onset Date: 05/09/15 Status: Acute (3) Chronic anemia Status: Acute (4) Obesity hypoventilation syndrome Status: Acute (5) Bipolar 1 disorder Onset Date: 09/12/14 Status: Chronic (6) Hypertension Onset Date: 03/20/17 Status: Chronic Qualifiers: Hypertension type: essential hypertension Qualified Code(s): I10 - Essential (primary) hypertension (7) Obesity Onset Date: 03/05/17 Status: Chronic Qualifiers: Obesity type: due to excess calories Obesity classification: adult class 3 (BMI >= 40) Serious obesity comorbidity presence: with serious comorbidity Body mass index: BMI 40.0-44.9 Qualified Code(s): E66.01 - Morbid (severe) obesity due to excess calories; Z68.41 - Body mass index (BMI) 40.0-44.9, adult; Z68.41 - Body mass index (BMI) 40.0-44.9, adult; Z68.41 - Body mass index (BMI) 40.0-44.9, adult; Z68.41 - Body mass index (BMI) 40.0-44.9, adult (8) Obstructive sleep apnea Onset Date: 03/20/17 Status: Chronic Brief History of Present Illness: 60-year-old female with a history of severe COPD on home oxygen, chronic steroid therapy at home, VIVEK, on trilogy. hypothyroidism, GERD presented to the emergency department in respiratory distress. Patient with multiple admissions in the past. She also noted her trilogy is not functioning well. Patient noted to be in respiratory distress and placed on BiPAP, initially ABG demonstrated pCO2 133 pH 7.14, chest x-ray are unremarkable. Patient admitted to the ICU for further management. Hospital Course: Acute on chronic hypercapnic, hypoxic respiratory failure secondary to severe COPD with exacerbation on home oxygen with NC, NIV and chronic steroid therapy Hypothyroidism Hypertension VIVEK BPD GERD -patient reported her Trilogy at home as an ill-fitting mask and broken strap -patient treated with IV steroid and scheduled bronchodilators. -she used BiPAP most of the time during the hospital stay. -ABG today demonstrate pCO2 of 97 which is about her baseline. -patient seen by pulmonary -her trilogy brought to the hospital and fixed by the oxygen company. -she is currently at baseline -she is discharged and advised to use her NIV all the time. She will follow Dr. Do as an outpatient. Vital Signs/Physical Exam: Temp Pulse Resp BP Pulse Ox 98.5 F 87 23 H 126/73 93 03/20/21 12:18 03/20/21 13:00 03/20/21 13:00 03/20/21 13:00 03/20/21 13:00 General: Alert, In no apparent distress, Oriented x3 HEENT: Mucous membr. moist/pink Neck: JVD not distended Respiratory: Diminished Cardiovascular: No edema, Regular rate/rhythm, Normal S1 S2 Gastrointestinal: Soft and benign, Non-distended, No tenderness Musculoskeletal: No swelling Integumentary: No rashes Laboratory Data at Discharge: WBC 5.00 K/uL (4.3-10.9) 03/20/21 05:10 Hgb 9.3 g/dL (12.0-15.0) L 03/20/21 05:10 Hct 29.9 % (36.0-45.0) L 03/20/21 05:10 Plt Count 150 K/uL (152-406) L 03/20/21 05:10 PT 10.5 SECONDS (9.5-12.5) 03/17/21 17:50 INR 0.91 03/17/21 17:50 Sodium 143 mmol/L (136-145) 03/20/21 05:10 Potassium 4.1 mmol/L (3.5-5.1) 03/20/21 05:10 BUN 23 mg/dL (7-18) H 03/20/21 05:10 Creatinine 0.78 mg/dL (0.55-1.3) 03/20/21 05:10 Glucose 112 mg/dL (74-106) H 03/20/21 05:10 Magnesium 2.1 mg/dL (1.8-2.4) 03/20/21 05:10 Total Bilirubin 0.2 mg/dL (0.2-1.0) 03/20/21 05:10 AST 7 U/L (15-37) L 03/20/21 05:10 ALT 27 U/L (12-78) 03/20/21 05:10 Alkaline Phosphatase 52 U/L (45-117) 03/20/21 05:10 Home Medications: Albuterol Sulfate [Proair Hfa] 1 puff IH QID PRN 10/23/20 Atorvastatin Calcium [Lipitor*] 20 mg PO BEDTIME 10/23/20 Gabapentin 300 mg PO BID 10/23/20 Roflumilast [Daliresp*] 500 mcg PO DAILY 10/23/20 Umeclidinium Brm/Vilanterol Tr [Anoro Ellipta 62.5-25 Mcg INH] 1 puff IN DAILY 10/23/20 clonazePAM [Klonopin*] 0.5 mg PO DAILY PRN 10/23/20 Tramadol HCl [Ultram] 50 mg PO TID PRN 30 Days #60 tablet 11/21/20 Pantoprazole [Protonix Tab*] 40 mg PO DAILY 02/14/21 Ropinirole HCl [Requip*] 1 mg PO BEDTIME 02/14/21 acetaZOLAMIDE [Diamox*] 250 mg PO DAILY 30 Days #30 tab 03/15/21 predniSONE [Deltasone*] 10 mg PO DAILY #60 tab 03/20/21 New Medications: predniSONE [Deltasone*] 10 mg PO DAILY #60 tab Physician Discharge Instructions: Please wear the Trilogy all the time. Diet: AHA Activity: Ad kristopher Followup: Unknown,U [Primary Care Provider] - 1-2 Weeks Isai Do MD [ACTIVE - CAN ADMIT] - 1 Week Time spent managing pt's care (in minutes): 38
[2021-03-20 16:06] VITALS: BP 112/67; TEMP 97.8; O2SAT 94
[2021-03-20] MEDS ORDERED: acetaZOLAMIDE 250 MG TAB PO SCH (21:00)
== END 2021-03-20 17:30 | disposition home health service (06) | DRG 189 ==
LOC: ER 17:00 → ERHOLD 18:52
PROVIDERS: ADMIT Hospitalist; ATTEND Internal Medicine
PROC: 5A09357 Assistance with Respiratory Ventilation, Less than 24 Consecutive Hours, Continuous Positive Airway Pressure (ICD-10-PCS; principal; 2021-03-17)
DX: J96.22 Acute and chronic respiratory failure with hypercapnia (principal); J44.1 Chronic obstructive pulmonary disease with (acute) exacerbation; E66.2 Morbid (severe) obesity with alveolar hypoventilation; Z68.41 Body mass index [BMI] 40.0-44.9, adult; J96.21 Acute and chronic respiratory failure with hypoxia; Z79.52 Long term (current) use of systemic steroids; D64.9 Anemia, unspecified; F31.9 Bipolar disorder, unspecified; I10 Essential (primary) hypertension; Z99.81 Dependence on supplemental oxygen; E03.9 Hypothyroidism, unspecified; K21.9 Gastro-esophageal reflux disease without esophagitis; Z20.822 Contact with and (suspected) exposure to COVID-19
CPT/HCPCS: 36415; 71045; 80048; 80053; 80076; 81003; 81015; 82805; 83605; 83735; 83880; 84145; 84484; 85025; 85610; 87040; 87086; 87088; 87804; 93005; 94640; 94660; 94760; 96361; 96365; 96375; 99285; C9113; J1100; J1650; J2930; J7030; J7512; U0003

== ENCOUNTER 2021-03-29 10:37 | Inpatient (IN) | payer OTHER ==
[2021-03-29 11:05] LABS: Absolute Lymphocytes (CBC) 0.6 K/uL (0.7-4.9); Basophils % 0.2 % (0-1.3); Hematocrit 39.4 % (36.0-45.0); Lymphocytes % 6.1 % (15.3-44.8); RBC Red Blood Cell Count 4.54 M/uL (3.86-4.86)
[2021-03-29 11:07] LABS: Protime INR 0.99
[2021-03-29] MEDS ORDERED: ALBUTEROL 2.5 MG/3 ML NEB SOL ONE (11:07)
[2021-03-29] MEDS ORDERED: IPRATROPIUM BROM 0.5MG/2.5ML ONE (11:07)
[2021-03-29 11:11] LABS: Arterial Blood Carboxyhemoglob 2.4 % (0-1.5); Blood Gas Oxyhemoglobin 87.8 % (94-97); Blood O2 Saturation 90.9 % (92-98.5)
--- OUTSIDE RECORDS SUMMARY | 2021-03-29 11:33 | XMS REPORT | Continuity of Care Document ---
:1960 Author Organization [facility] Address [address] [place] [address] Care Team Providers Name Role Phone Doctor [...] Treatment Clinician Date Tobacco Tobacco Disease Active [facility] 00 [place] Hypoxemia Hypoxemia Disease Active [facility] [place] COPD COPD Disease Active [facility] exacerbati exacerbati 6 Pema kes - on on 00:00: Medical 00 [place] Acute Acute Disease Active [facility] hypercapni hypercapni 6- Pema kes - [...] ID 2021-01-25 2021-01-25 Orders Doctor NESS 1.2.840.114 [id number] 00:00:00 00:00:00 Only UnassignedVIRGILIO [id number] [facility] 4.2.7.2.686 [id number] 2021-01-15 2021-01-15 Orders Doctor NESS 1.2.840.114 [id number] 00:00:00 00:00:00 Only UnassignedVIRGILIO 350.1.13.10 [facility] 4.2.7.2.686 [id number] 2020-11-17 2020-11-17 DEEDEE Oliva 1.2.840.114 [id number] 00:00:00 00:00:00 Management [place] [facility] [id number] [facility] 42.7.2.686 CENTER [id number] [facility] 2020-11-17 2020-11-17 Transition Molly Hernandez 1.2.840.114 [id number] 00:00:00 00:00:00 of Care Viviana Person Aram [id number] [place] 4.2.7.2.686 [id number] 2020-11-12 2020-11-16 [facility] Jeronimo Hogue 1.2.840.1 14 [id number] 18:33:00 16:20:00 Encounter Julian [id number] [facility] 4.2.7[facility]2.686 Sammie Tarango [phone] Nash Brenner [address] Almaraz MorenoNash Harris Krishna Moreno 2020-11-14 2020-11-14 Telephone [facility] 1.2.840.114 [id number] 00:00:00 00:00:00 MAXI baker 350.1.13.10 [facility] 4.2.7.2.686 CENTER AT [phone] [facility] [address] [place] [address] 2020-11-13 2020-11-13 Transition Molly Verdugo 1.2.840.114 [id number] 00:00:00 00:00:00 of Care Lizbeth Aram [id number] [place] 4.2.7.2.686 [id number] 2020-11-07 2020-11-11 [facility] Jeronimo Hogue [facility] 1.2.840.1 14 [id number] 06:48:00 14:50:00 Encounter Adán Pelayo 350.1.13.10 Jeronimo [place] 4.2.7.2.686 Adán Pelayo Gordon [id number] [id number] 2020-07-12 2020-07-12 [facility] 1.2.840.114 [id number] 11:56:24 23:59:00 Encounter samuel, Pediatric 350.1.13.10 Shibi s and 4.2.7.2.686 Adult [phone] Primary [address] [place] [address] Clinic 2020-07-12 2020-07-12 Office Hillary Ybarra 1.2.840.114 [id number] 11:00:10 13:58:54 Visit samuel Pediatric 350.1.13.10 Shibi s and 4.2.7.2.686 Adult [phone] Primary [address] [place] [address] 2020-07-03 2020-07-03 Orders Doctor THI 1.2.840.114 [id number] 00:00:00 00:00:00 Only Unassigned, VIRGILIO 350.1.13.10 [facility] 4.2.7.2.686 [id number] Results Test Description Test Time Test [...] NOT 1092) ACCURATE CRE ATININE CLEARANCE IN AL EDICTING GLOMERULAR FILT RATION RATE. ESTIMATED GFR [...] 0-0 (AKER) (test code = 413) 0.00POCT-GLUCOSE [id number] 17:50:00 Test Item Value Reference Range Interpretation Comments POC-GLUCOSE METER 118 mg/dL 70-110 H TESTED AT [place] [address] ([facility] (test code = KISHA Pabon [facility] 1538) [address] POCT-GLUCOSE [id number] 11:59:00 Test Item Value Reference Range Interpretation Comments POC-GLUCOSE METER 247 mg/dL 70-110 H TESTED AT [place] [address] ([facility] (test [facility] = [facility] 1538) [id number] POCT-GLUCOSE [id number] 07:54:00 Test Item Value Reference Range Interpretation Comments POC-GLUCOSE METER 141 mg/dL 70-110 H TESTED AT [place] [address] ([facility] (test code = [facility] 1538) [id number] CBC W/PLT COUNT & AUTO [id number] 03:45:00 Test Item Value Reference Range Interpretation Comments WHITE BLOOD CELL COUNT ([facility] 4.9 K/ L 4.0-10.0 (test code = [...] K/ L 0.00-0.20 (test code = 417) [id number] 03:29:00 Test Item Value Reference Range Interpretation Comments MAGNESIUM (BEAKER) 1.8 mg/dL 1.6-2.6 Specimen slightly (test code = 627) hemolyzed BASIC METABOLIC [id number] 03:29:00 Test Item Value Reference Range Interpretation [...] NOT APPLICABLE FOR DIALYSIS PATIEN TS. POCT-GLUCOSE [id number] 00:05:00 Test Item Value Reference Range Interpretation Comments POC-GLUCOSE METER 117 mg/dL 70-[address] [facility] [address] [facility] (test code = [facility] 1538) [address] POCT-GLUCOSE [id number] 18:17:00 Test Item Value Reference Range Interpretation Comments POC-GLUCOSE METER 141 mg/dL 70-[address] [facility] 67[address] [facility] (test code = [facility] 1538) [address] CREATINE KINASE (CK), TOTAL AND [id number] 15:43:00 Test Item Value Reference Range Interpretation Comments CREATINE KINASE TOTAL (BEAKER) 31 U/L 29-200 (test code = 380) CREATINE KINASE-MB (BEAKER) (test 1.3 ng/mL 0.0-6.6 code = 750) CREATINE KINASE-MB INDEX (BEAKER) 4.2 % (test code = 395) Effective 08/09/2014: CK-MB Reference Range ChangeNew: 0.0-6.6 Previous: 0.0-4.9CK-MB Reference Range:<6.7 Normal6.7-10.0 Borderline>10.0 AbnormalBLOOD GAS, [id number] 15:26:00 Test Item Value Reference Range Interpretation [...] (test code = 1819) 35.0 % POCT-GLUCOSE [id number] 11:45:00 Test Item Value Reference Range Interpretation Comments POC-GLUCOSE METER 122 mg/dL 70-[address] [facility] 6720 (BEAKER) (test code = [place]HA [place] 1538) [address] CREATINE KINASE (CK), TOTAL AND [id number] 10:29:00 Test Item Value Reference Range Interpretation Comments CREATINE KINASE TOTAL (BEAKER) 31 U/L 29-200 (test code = 380) CREATINE KINASE-MB (BEAKER) (test 1.5 ng/mL 0.0-6.6 code = 750) CREATINE KINASE-MB INDEX (BEAKER) 4.8 % (test code = 395) Effective 08/09/2014: CK-MB Reference Range ChangeNew: 0.0-6.6 Previous: 0.0-4.9CK-MB Reference Range:<6.7 Normal6.7-10.0 Borderline>10.0 AbnormalTROPONIN [id number] 10:29:00 Test Item Value Reference Range Interpretation [...] renalfailure, acidosis, acute neurological disease, and persistent tachyarrhythmia.[id number] 10:22:00 Test Item Value Reference Range Interpretation Comments PARTIAL THROMBOPLASTIN TIME 22.5 seconds 22.5-36.0 (BEAKER) (test code = 760) PROTHROMBIN [id number] 10:21:00 Test Item Value Reference Range Interpretation Comments PROTIME (BEAKER) (test code = 12.4 seconds 11.7-14.7 759) INR (BEAKER) (test code = 370) 0.9 <=5.9 RECOMMENDED COUMADIN/WARFARIN INR THERAPY RANGESSTANDARD DOSE: 2.0 - 3.0 Includes: PROPHYLAXIS forvenous thrombosis, systemic embolization; TREATMENT for venous thrombosis and/or pulmonary embolus.HIGH RISK: Target INR is 2.5-3.5 for patients with mechanical heart valves.BLOOD GAS, [id number] 10:17:00 Test Item Value Reference Range Interpretation [...] (test code = 1819) 40.0 % PLATELET [id number] 10:13:00 Test Item Value Reference Range Interpretation Comments PLATELET COUNT (BEAKER) (test 111 K/CU MM 150-430 L code = 756)
[2021-03-29] MEDS ORDERED: Magnesium Sulfate 2gm IVPB 2 G/50 ML BAG IV ONE (11:52)
--- NOTE | 2021-03-29 11:54 | RAD REPORT ---
EXAM DESCRIPTION: RAD - Chest Single View - 03/29/2021 11:46 am CLINICAL HISTORY: DYSPNEA COMPARISON: Portable March 17 TECHNIQUE: AP portable chest image was obtained 03/29/2021 11:46 am . FINDINGS: Moderately large area consolidation has developed in the left upper lobe. Baseline interst itial pattern is otherwise stable. Heart and vasculature are normal. No measurable pleural effusion a nd no pneumothorax. No acute bony abnormality seen. No acute aortic findings suspected. IMPRESSION: Left upper lobe pneumonia
[2021-03-29] MEDS ORDERED: Levofloxacin 750mg IV 750 MG/150 ML BAG IV ONE (12:02)
[2021-03-29] MEDS ORDERED: CEFTRIAXONE/SWI 1gm 1 GM/10 ML SYR ONE (12:02)
[2021-03-29 12:03] LABS: ALT/SGPT 22 U/L (12-78); AST/SGOT 20 U/L (15-37); Albumin 3.4 g/dL (3.4-5.0); Alkaline Phosphatase 79 U/L (45-117); BUN Blood Urea Nitrogen 14 mg/dL (7-18); Bilirubin Direct 0.2 mg/dL (0-0.2); Bilirubin Total 0.9 mg/dL (0.2-1.0); Glucose Level 131 mg/dL (74-106); Magnesium 2.2 mg/dL (1.8-2.4); NT PRO-BNP 522 pg/mL (<125); Protein, Total 7.1 g/dL (6.4-8.2); Sodium Level 138 mmol/L (136-145); Troponin (Emerg Dept Use Only) 0.04 ng/mL (0.0-0.045)
[2021-03-29 12:06] LABS: Bicarbonate > 45 mmol/L (21-32)
[2021-03-29 12:34] LABS: Basophilic Stippling 1+; Blood Morphology Comment NOTED (NOT SEEN); Platelet Estimate ADEQ
--- NOTE | 2021-03-29 14:11 | EDPHYS ---
Physician Documentation [facility] Name: Vikki Zamudio Age: 60 yrs Sex: Female : 1960 Arrival Date: 03/29/2021 Time: 10:39 Bed 3 Private MD: ED Physician Donta An HPI: 03/29 11:27 This 60 yrs old Female presents to ER via EMS with complaints of Respiratory jr8 Distress, Unresponsive. 11:27 The patient has shortness of breath at rest. Onset: The symptoms/episode began/occurred jr8 acutely. Duration: The symptoms are continuous. The patient's shortness of breath has no apparent modifying factors. Associated signs and symptoms: Pertinent positives: altered mentation. Severity of symptoms: At their worst the symptoms were moderate in the emergency department the symptoms are unchanged. The patient has experienced similar episodes in the past, multiple times. It is unknown whether or not the patient has recently seen a physician. Patients family called EMS because patient became unresponsive and had increased respiratory difficulty. EMS stated that they immediately put her on BIPAP which improved patients status but still altered. Patient with history of severe COPD . Historical: - Allergies: 10:43 Codeine; ss - PMHx: 10:43 CHF; GERD; Hypertension; High Cholesterol; COPD; Hypothyroidism; Panic Attacks; Sleep ss Apnea; Hypercarbia; - Immunization history:: Adult Immunizations unknown. - Social history:: Smoking status: Patient reports the use of cigarette tobacco products, unknown. ROS: 14:13 Unable to obtain ROS due to altered mental status. jr8 Exam: 14:13 Neck: Trachea midline, no thyromegaly or masses palpated, and no cervical jr8 lymphadenopathy. Supple, full range of motion without nuchal rigidity, or vertebral point tenderness. No Meningismus. Cardiovascular: Regular rate and rhythm with a normal S1 and S2. No gallops, murmurs, or rubs. Normal PMI, no JVD. No pulse deficits. 14:13 Abdomen/GI: Soft with normal bowel sounds. No distension or tympany. No guarding or rebound. Skin: Warm, dry with normal turgor. Normal color with no rashes, no lesions, and no evidence of cellulitis. MS/ Extremity: Pulses equal, no cyanosis. Neurovascular intact. Full, normal range of motion. 14:13 Constitutional: The patient appears awake, obviously ill, restless. 14:13 Respiratory: moderate respiratory distress is noted, Respirations: labored breathing, tachypnea, Breath sounds: decreased breath sounds, that are severe, are scattered. 14:13 Neuro: Orientation: to person, Mentation: slow to respond, confused, Memory: unable to test, Cranial nerves: unable to test, Motor: moves all fours, Sensation: no obvious gross deficits, seizure activity, is not displayed by the patient, Abnormal movements: there are no abnormal movements. Vital Signs: 10:39 BP 142 / 78; Pulse 117; Resp 32; Temp 97.5(A); Pulse Ox 50% on CPAP; ss 10:47 Pulse 95; Pulse Ox 93% on 100% CPAP; ss 11:09 BP 142 / 63; Pulse 88; Resp 40; Pulse Ox 98% on BiPAP; ll1 12:06 BP 125 / 80; Pulse 79; Resp 26; Pulse Ox 95% on BiPAP; ll1 12:11 Temp 97.8(TE); ll1 13:37 BP 107 / 50; Pulse 76; Resp 22; Pulse Ox 90% on BiPAP; ll1 14:23 Weight 114.76 kg (R); ll1 15:03 BP 120 / 65; Pulse 72; Resp 22; Pulse Ox 96% on BiPAP; ll1 15:39 BP 118 / 65; Pulse 71; Resp 22; Temp 97.1; Pulse Ox 96% on BiPAP; ll1 16:37 BP 114 / 62; Pulse 70; Resp 22; Pulse Ox 95% on BiPAP; Pain 0/10; ll1 19:02 BP 107 / 63; Pulse 82; Resp 22; Pulse Ox 98% on BiPAP; ll1 21:29 BP 110 / 65; Pulse 74; Resp 20; Pulse Ox 98% on BiPAP; ak2 14:23 Weight from admission on 03/19/21. ll1 Lenny Coma Score: 14:13 Eye Response: to voice(3). Verbal Response: confused(4). Motor Response: obeys jr8 commands(6). Total: 13. MDM: 10:39 Patient medically screened. jr8 14:08 Data reviewed: vital signs, nurses notes, lab test result(s), EKG, radiologic studies, jr8 plain films. Data interpreted: Pulse oximetry: on BIPAP is 90 %. Interpretation: acceptable. Counseling: I had a detailed discussion with the patient and/or guardian regarding: the historical points, exam findings, and any diagnostic results supporting the discharge/admit diagnosis, lab results, radiology results, the need for further work-up and treatment in the hospital. 17:22 ED course: Dr. Banks would like for us to transfer if possible for higher level of [facility] care as patient may require ventilatory support which family is wanting us to do if needed . 03/29 10:40 Order name: Basic Metabolic Panel; Complete Time: 12:25 03/29 10:40 Order name: CBC with Diff; Complete Time: 12:41 03/29 10:40 Order name: LFT's; Complete Time: 12:25 [facility] 03/29 10:40 Order name: Magnesium; Complete Time: 12:25 03/29 10:40 Order name: NT PRO-BNP; Complete Time: 12:25 [facility] 03/29 10:40 Order name: PT-INR; Complete Time: 11:39 [facility] 03/29 10:40 Order name: Troponin (emerg Dept Use Only); Complete Time: 12:25 [facility] 03/29 10:40 Order name: ABG; Complete Time: 12:25 [facility] 03/29 11:32 Order name: Blood Culture Adult (2) 03/29 11:32 Order name: Procalcitonin; Complete Time: 13:14 8 03/29 11:32 Order name: Lactate; Complete Time: 12:25 [facility] 03/29 12:34 Order name: Manual Differential; Complete Time: 12:41 EDLA 03/29 13:11 Order name: SARS-COV-2 RT PCR; Complete Time: 13:14 EDMS 03/29 10:40 Order name: XRAY Chest (1 view); Complete Time: 12:02 03/29 10:40 Order name: EKG; Complete Time: 10:41 8 03/29 10:40 Order name: Cardiac monitoring; Complete Time: 10:48 8 03/29 10:40 Order name: BIPAP 03/29 13:24 Order name: AB:00 03/29 13:24 Order name: ABG Arterial Blood Gas; Complete Time: 15:52 EDMS 03/29 17:44 Order name: ABG ss 03/29 17:45 Order name: ABG Arterial Blood Gas; Complete Time: 07:02 EDMS 03/29 18:44 Order name: C-Reactive Protein; Complete Time: 07:02 EDMS 03/29 18:44 Order name: Ferritin; Complete Time: 07:02 EDLA 03/29 10:40 Order name: EKG - Nurse/Tech; Complete Time: 11:04 [facility] 03/29 10:40 Order name: IV Saline Lock; Complete Time: 10:55 8 03/29 10:40 Order name: Labs collected and sent; Complete Time: 10:55 8 03/29 10:40 Order name: O2 Per Protocol; Complete Time: 10:48 8 03/29 10:40 Order name: O2 Sat Monitoring; Complete Time: 10:48 Administered Medications: 10:48 Not Given (given prior to arrival by EMSs): SOLU-Medrol (methylPrednisoLONE) 125 mg IVP ss once 10:48 Drug: Albuterol - atroVENT (ipratropium) (3:1) (2.5 mg - 0.5 mg) 3 ml Route: Nebulizer; ss 12:24 Follow up: Response: No adverse reaction ll1 11:43 Drug: Rocephin (cefTRIAXone) 1 grams Route: IV; Rate: calculated rate; Site: left upper ll1 arm; 12:24 Follow up: Response: No adverse reaction; RASS: Alert and Calm (0); IV Status: ll1 Completed infusion; IV Intake: 20ml 11:45 Drug: Magnesium Sulfate 2 grams Route: IVPB; Infused Over: 1 hrs; Site: left upper arm; ll1 12:24 Follow up: Response: No adverse reaction; IV Status: Completed infusion; IV Intake: 79dxrd8 12:24 Drug: LevaQUIN (levofloxacin) 750 mg Volume: 150 ml; Route: IVPB; Infused Over: 90 ll1 mins; Site: left upper arm; 13:59 Follow up: Response: No adverse reaction; IV Status: Completed infusion; IV Intake: ll1 150ml 14:31 Drug: Lovenox (enoxaparin) 1 mg/kg {Note: Lovenox 100 MG per Antonio Bhakta} Route: Sub-Q; ll1 Site: left lower abdomen; 14:33 Follow up: Response: No adverse reaction ll1 Disposition: 17:22 Critical Care:. jr8 Disposition Summary: 03/29/21 14:10 Hospitalization Ordered Hospitalization Status: Inpatient Admission jr8 Provider: El An Condition: Fair jr8 Problem: new jr8 Symptoms: have improved jr8 Bed/Room Type: Standard jr8 Location: Intensive Care Unit(03/29/21 20:48) cg Room Assignment: 3-(03/29/21 20:48) cg Diagnosis - Acute and chronic respiratory failure with hypercapnia jr8 - COVID-19 jr8 - Pneumonia due to other specified bacteria jr8 - COPD/ Chronic obstructive pulmonary disease with (acute) exacerbation jr8 Forms: - Medication Reconciliation Form jr8 - SBAR form jr8 Critical care time excluding procedures: 17:22 Critical care time: Bedside Care: 20 minutes, Consultation: 30 minutes, Family jr8 Intervention: 20 minutes. Total time: 70 minutes Addendum: 04/02/2021 07:29 Co-signature as Attending Physician, Donta An MD I agree with the assessment and r n plan of care. PA/QUARRY EXTRACTION WORKER's history reviewed, patient interviewed, and examined. HPI: 60 year old female with respiratory difficulty and AMS. My personal exam of patient reveals: overweight female, + tachypnea and shallow breathing I agree with assessment and care plan and confirm the diagnosis (es) above. Signatures: Dispatcher [employer] [facility] Donta An MD MD rn Smirch, Shelby, RN RN Malachi Falk PA PA [facility] Belinda Damon RN RN Randi Gillespie RN RN ll1 Corrections: (The following items were deleted from the chart) 03/29 12:06 11:32 CORONAVIRUS+MR.LAB.BRZ ordered. [facility] EDLA 14:15 11:27 Patients family called EMS . jr8 jr8 20:48 14:10 Telemetry/MedSurg (Inpatient) jr8 cg 20:48 14:10 jr8 cg
--- NOTE | 2021-03-29 14:11 | ER ---
Nurse's Notes [facility] Name: Vikki Zamudio Age: 60 yrs Sex: Female : 1960 Arrival Date: 03/29/2021 Time: 10:39 Bed 3 Private MD: Diagnosis: Acute and chronic respiratory failure with hypercapnia;COVID-19;Pneumonia due to other specified bacteria;COPD/ Chronic obstructive pulmonary disease with (acute) exacerbation Presentation: 03/29 10:39 Chief complaint: Called out for unresponsive patient. Pt has history of COPD and ss hypercarbia. O2 upon arrival was 42% on home O2 VIA NC. Pt is awake, confused upon arrival and placed on CPAP. Coronavirus screen: Client presents with at least one sign or symptom that may indicate coronavirus-19. Ebola Screen: Patient denies exposure to infectious person. Initial Sepsis Screen: Does the patient meet any 2 criteria? RR > 20 per min. HR > 90 bpm. Does the patient have a suspected source of infection? No. Patient's initial sepsis screen is negative. Risk Assessment: Do you want to hurt yourself or someone else? Unable to obtain. Onset of symptoms was March 29, 2021. 10:39 Acuity: LIZETH 1 ss 10:39 Method Of Arrival: EMS: [facility] 10:44 Care prior to arrival: Medication(s) given: Solu Medrol 125 mg give IVP IV initiated. ss 20 GA, in the right antecubital area, Glucose check: 123 Oxygen administered. via CPAP or BiPAP. Historical: - Allergies: 10:43 Codeine; ss - PMHx: 10:43 CHF; GERD; Hypertension; High Cholesterol; COPD; Hypothyroidism; Panic Attacks; Sleep ss Apnea; Hypercarbia; - Immunization history:: Adult Immunizations unknown. - Social history:: Smoking status: Patient reports the use of cigarette tobacco products, unknown. Screenin:08 Abuse screen: Denies threats or abuse. Nutritional screening: No deficits noted. ll1 Tuberculosis screening: No symptoms or risk factors identified. Fall Risk Secondary diagnosis (15 points) BIPAP. IV access (20 points). Gait- Impaired (20 pts.). Mental Status- Overestimates/Forgets Limitations (15 pts.). Total Resendiz Fall Scale indicates High Risk Score (45 or more points). Fall prevention measures have been instituted. Side Rails Up X 2 Frequent Obs/Assessments Occuring As available patient and family educated on Fall Prevention Program and Strategies. Assessment: 10:50 General: Appears uncomfortable, unkempt, Behavior is listless, restless. Pain: Denies ll1 pain. Neuro: Level of Consciousness is awake, confused, Boom Master are weak bilaterally Weakness Facial symmetry appears normal. Cardiovascular: Capillary refill < 3 seconds Clubbing of nail beds is absent Rhythm is sinus tachycardia. Respiratory: Airway is compromised Trachea midline Respiratory effort is labored, gasping, using tripod position, Respiratory pattern is symmetrical, tachypnea Breath sounds are diminished bilaterally. Onset: The symptoms/episode began/occurred at an unknown time. the patient has severe shortness of breath. 11:50 Reassessment: Patient states symptoms have improved. appears more comfortable. General: ll1 Appears unkempt, Behavior is calm, appropriate for age, quiet. 12:50 Reassessment: No changes from previously documented assessment. Patient and/or family ll1 updated on plan of care and expected duration. Pain level reassessed. 13:50 Reassessment: No changes from previously documented assessment. Patient and/or family ll1 updated on plan of care and expected duration. Pain level reassessed. 14:50 Reassessment: No changes from previously documented assessment. Patient and/or family ll1 updated on plan of care and expected duration. Pain level reassessed. 15:50 Reassessment: No changes from previously documented assessment. Patient and/or family ll1 updated on plan of care and expected duration. Pain level reassessed. Patient states symptoms have improved. 16:50 Reassessment: No changes from previously documented assessment. Patient and/or family ll1 updated on plan of care and expected duration. Pain level reassessed. 17:29 Reassessment: [facility] Spoke with Kimberly Hayes ss coordinator. Awaiting returned call. 17:48 Reassessment: [facility] declined as there is no bed capacity. ASHLY Waller notified. 17:50 Reassessment: No changes from previously documented assessment. Patient and/or family ll1 updated on plan of care and expected duration. Pain level reassessed. 19:39 Reassessment: Patient and/or family updated on plan of care and expected duration. Pain ak2 level reassessed. 21:18 General: report called to rn. ak2 Vital Signs: 10:39 BP 142 / 78; Pulse 117; Resp 32; Temp 97.5(A); Pulse Ox 50% on CPAP; ss 10:47 Pulse 95; Pulse Ox 93% on 100% CPAP; ss 11:09 BP 142 / 63; Pulse 88; Resp 40; Pulse Ox 98% on BiPAP; ll1 12:06 BP 125 / 80; Pulse 79; Resp 26; Pulse Ox 95% on BiPAP; ll1 12:11 Temp 97.8(TE); ll1 13:37 BP 107 / 50; Pulse 76; Resp 22; Pulse Ox 90% on BiPAP; ll1 14:23 Weight 114.76 kg (R); ll1 15:03 BP 120 / 65; Pulse 72; Resp 22; Pulse Ox 96% on BiPAP; ll1 15:39 BP 118 / 65; Pulse 71; Resp 22; Temp 97.1; Pulse Ox 96% on BiPAP; ll1 16:37 BP 114 / 62; Pulse 70; Resp 22; Pulse Ox 95% on BiPAP; Pain 0/10; ll1 19:02 BP 107 / 63; Pulse 82; Resp 22; Pulse Ox 98% on BiPAP; ll1 21:29 BP 110 / 65; Pulse 74; Resp 20; Pulse Ox 98% on BiPAP; ak2 14:23 Weight from admission on 03/19/21. ll1 Lenny Coma Score: 14:13 Eye Response: to voice(3). Verbal Response: confused(4). Motor Response: obeys jr8 commands(6). Total: 13. ED Course: 10:39 Patient arrived in ED. ss 10:39 Malachi Falk PA is PHCP. jr8 10:39 Donta An MD is Attending Physician. jr8 10:40 Patient has correct armband on for positive identification. Bed in low position. Call ll1 light in reach. Side rails up X 1. groundwater monitoring technician on. Pulse ox on. NIBP on. 10:43 Triage completed. ss 10:43 Arm band placed on right wrist. ss 10:49 IV discontinued, intact, bleeding controlled, No redness/swelling at site. Pressure ss dressing applied, 20 gauge in R AC that was inserted by EMS does not pull nor flush. IV dc'd. O2 via BIPAP \T\ 100% Response to oxygen therapy: symptoms improved. 10:54 Randi Gillespie, RN is Primary Nurse. ll1 10:54 Inserted saline lock: 20 gauge in left upper arm, using aseptic technique. Blood ll1 collected. 10:55 BIPAP Sent. ll1 11:46 XRAY Chest (1 view) In Process Unspecified. EDMS 14:09 El An MD is Hospitalizing Provider. jr8 Administered Medications: 10:48 Not Given (given prior to arrival by EMSs): SOLU-Medrol (methylPrednisoLONE) 125 mg IVP ss once 10:48 Drug: Albuterol - atroVENT (ipratropium) (3:1) (2.5 mg - 0.5 mg) 3 ml Route: Nebulizer; ss 12:24 Follow up: Response: No adverse reaction ll1 11:43 Drug: Rocephin (cefTRIAXone) 1 grams Route: IV; Rate: calculated rate; Site: left upper ll1 arm; 12:24 Follow up: Response: No adverse reaction; RASS: Alert and Calm (0); IV Status: ll1 Completed infusion; IV Intake: 20ml 11:45 Drug: Magnesium Sulfate 2 grams Route: IVPB; Infused Over: 1 hrs; Site: left upper arm; ll1 12:24 Follow up: Response: No adverse reaction; IV Status: Completed infusion; IV Intake: [id number] 12:24 Drug: LevaQUIN (levofloxacin) 750 mg Volume: 150 ml; Route: IVPB; Infused Over: 90 ll1 mins; Site: left upper arm; 13:59 Follow up: Response: No adverse reaction; IV Status: Completed infusion; IV Intake: ll1 150ml 14:31 Drug: Lovenox (enoxaparin) 1 mg/kg {Note: Lovenox 100 MG per J. Sahrak.} Route: Sub-Q; ll1 Site: left lower abdomen; 14:33 Follow up: Response: No adverse reaction ll1 Intake: 12:24 IV: 20ml; Total: 20ml. ll1 12:24 IV: 50ml; Total: 70ml. ll1 13:59 IV: 150ml; Total: 220ml. ll1 Outcome: 14:10 Decision to Hospitalize by Provider. jr8 21:30 Admitted to ICU ak2 21:30 Admitted to ICU 21:30 Condition: stable 22:04 Patient left the ED. ak2 Signatures: Dispatcher [employer] EDMS Jaimie Fontana RN RN Malachi Falk PA PA jr8 Randi Gillespie RN RN ll1 Cory Cortes ak2
[2021-03-29 14:44] LABS: Arterial Blood Carboxyhemoglob 2.3 % (0-1.5); Blood Gas Oxyhemoglobin 89.9 % (94-97); Blood O2 Saturation 92.8 % (92-98.5)
[2021-03-29] MEDS ORDERED: ENOXAPARIN 100 MG/ML SYR SQ ONE (14:48)
[2021-03-29 17:50] LABS: Blood Gas Oxyhemoglobin 92.7 % (94-97); Blood O2 Saturation 95.5 % (92-98.5)
--- NOTE | 2021-03-29 20:17 | P.HP ---
Certification for Inpatient Patient admitted to: Inpatient With expected LOS: >2 Midnights Patient will require the following post-hospital care: None Practitioner: I am a practitioner with admitting privileges, knowledge of patient current condition, hospital course, and medical plan of care. Services: Services provided to patient in accordance with Admission requirements found in Title 42 Section 412.3 of the Code of Federal Regulations Patient History Date of Service: 03/29/21 Primary Care Provider: Dr. Howard Reason for admission: Respiratory failure History of Present Illness: 60-year-old female with history of severe COPD on home oxygen/NIV/chronic steroid therapy, VIVEK, hypothyroidism, GERD presents [facility] for acute respiratory failure. Patient with multiple admissions for similar in the past, patient was reportedly at home with her when she is found without her nasal cannula or BiPAP on and confused with saturations in the 30s. Patient was brought to the emergency department found to be in respiratory distress and placed on BiPAP. Further evaluation in the emergency department revealed initial pH 7.2 PCO to 126 PO2 69.6, this improved with BiPAP over the course of the next few hr, most recent ABG pH 7.32 PCO 292.6, PO2 78.3 white blood cell count 9.3 chest x-ray significant for left upper lobe pneumonia, patient also tested positive for Fields virus for the 1st time. CRP level pending. Pro calcitonin 0.14. Patient doing better with BiPAP at this time, previously patient had informed staff that she did not wish to be intubated under any circumstances, family was called daughter Rafaela reported that patient had previously told her that she would be okay with being intubated if it was like for situation. At this time patient is adamant that she would not want to be intubated but she is disoriented stating that she believes the year is 2002. Discussed this at length with daughter in informed her that she needs to have a discussion with her mother and get something in writing, at this time will proceed with full code as patient is disoriented and daughter reports that her wishes are for full code. Will admit to the ICU as patient is still drowsy, requiring high concentrations of oxygen and pressures on BiPAP. Attempt was made to transfer patient as we do not currently have pulmonology available but transfer was declined at receiving facilities at this time due to capacity. Allergies codeine [Codeine] Adverse Reaction (Mild, Verified 02/15/21 08:47) itch Home Medications: Albuterol Sulfate [Proair Hfa] 1 puff IH QID PRN 10/23/20 Atorvastatin Calcium [Lipitor*] 20 mg PO BEDTIME 10/23/20 Gabapentin 300 mg PO BID 10/23/20 Roflumilast [Daliresp*] 500 mcg PO DAILY 10/23/20 Umeclidinium Brm/Vilanterol Tr [Anoro Ellipta 62.5-25 Mcg INH] 1 puff IN DAILY 10/23/20 clonazePAM [Klonopin*] 0.5 mg PO DAILY PRN 10/23/20 Tramadol HCl [Ultram] 50 mg PO TID PRN 30 Days #60 tablet 11/21/20 Pantoprazole [Protonix Tab*] 40 mg PO DAILY 02/14/21 Ropinirole HCl [Requip*] 1 mg PO BEDTIME 02/14/21 acetaZOLAMIDE [Diamox*] 250 mg PO DAILY 30 Days #30 tab 03/15/21 predniSONE [Deltasone*] 10 mg PO DAILY #60 tab 03/20/21 - Past Medical/Surgical History Diabetic: No -: Severe COPD, oxygen/steroid dependent,Pulmonary-Dr. Do -: Mild pulmonary hypertension -: Hypothyroidism -: Bipolar disorder -: Hypertension -: Chronic low back pain -: Obstructive sleep apnea -: Tobacco abuse -: HLD -: GERD -: Appendectomy -: Psychosocial/ Personal History: She lives with a partner. She has 1 child. She is currently disabled. - Family History Father -: Heart disease, Hypertension, Diabetes Notes: from CHF Mother -: Heart disease, Hypertension, Diabetes Notes: from CHF Brother -: Diabetes Sister -: Heart disease, Diabetes Notes: from CHF - Social History Smoking Status: Former smoker Alcohol use: Yes CD- Drugs: No Caffeine use: Yes Review of Systems 10-point ROS is otherwise unremarkable Respiratory: Cough, Shortness of Breath, Wheezing Physical Examination - Physical Exam General: Alert, In no apparent distress, Oriented x2 HEENT: Atraumatic, PERRLA, Mucous membr. moist/pink Neck: Supple, 2+ carotid pulse no bruit, No LAD Respiratory: Diminished, Expiratory wheezes Cardiovascular: Regular rate/rhythm, Normal S1 S2 Gastrointestinal: Normal bowel sounds, No tenderness Musculoskeletal: No tenderness Integumentary: No rashes Neurological: Normal gait, Normal speech, Normal strength at 5/5 x4 extr, Normal tone, Normal affect Lymphatics: No axilla or inguinal lymphadenopathy - Studies Laboratory Data (last 24 hrs) 03/29/21 10:45: PT 11.4, INR 0.99 03/29/21 10:45: WBC 9.30 D, Hgb 12.0 D, Hct 39.4 D, Plt Count 103 L D 03/29/21 10:45: Sodium 138, Potassium 5.0, BUN 14, Creatinine 0.71, Glucose 131 H, Magnesium 2.2, Total Bilirubin 0.9, AST 20, ALT 22, Alkaline Phosphatase 79 Assessment and Plan - Plan Assessment Acute on chronic hypoxic hypercapnic respiratory failure secondary to end-stage COPD on home oxygen/home NIV/chronic steroid therapy complicated with left upper lobe pneumonia and COVID+ Hypothyroidism, hypertension, DVT, GERD Plan Acute on chronic hypoxic hypercapnic respiratory failure secondary to end-stage COPD on home oxygen/home NIV/chronic steroid therapy complicated with left upper lobe pneumonia and COVID+: Continue BiPAP, daily ABG, continuous pulse oximetry, admit to the ICU. CRP level trending, continue with IV steroids, scheduled nebs, inhalers. Not sure how much of a component COVID is at this time, will need to trend CRP levels and monitor chest x-ray for progression. Will continue with oral supplements, Rocephin/Zithromax for left upper lobe pneumonia. Blood cultures obtained. Daily labs. DVT prophylaxis with Lovenox 40 mg subcutaneous once daily. Anticipate clinical improvement over the course of the next 48-72 hr, discussed case at length with daughter who reports patient told her that her BiPAP was not working at home will need to have this e valuated prior to discharge, daughter also reports that patient told her she was willing to be intubated again if it was a life urgent situation, this is not what the patient is reporting at this time but she is disoriented, oriented x2 stating that the years 2002. Will continue as full code for now, explicitly stated with daughter that a discussion needs to be had regarding advanced directives and a formal advanced directive should be made. Daughter understanding at this time. Will admit to the ICU for further evaluation and management. Hypothyroidism, hypertension, BPD, GERD: Continue home medications as appropriate. Discharge Plan: Home Plan to discharge in: Greater than 2 days - Advance Directives Does patient have a Living Will: No Does patient have a Durable POA for Healthcare: No - Code Status/Comfort Care Code Status Assessed: Yes (Full code) Critical Care: No Time Spent Managing Pts Care (In Minutes): 55
[2021-03-29 20:41] LABS: Ferritin 84.1 ng/mL (8-388)
[2021-03-29] MEDS ORDERED: KETOROLAC 30 MG/ML INJ ONE (21:31)
[2021-03-29] MEDS: DULERA 200/5 (MOMETASONE/FORMOTEROL) INHALER IH SCH (22:03)
[2021-03-29] MEDS ORDERED: ACETAMINOPHEN 500 MG TAB PO PRN (22:03)
[2021-03-29] MEDS ORDERED: ONDANSETRON 4 MG/2 ML VIAL IV PRN (22:03)
[2021-03-29] MEDS: ASCORBIC ACID 500 MG TABLET PO SCH (22:36)
[2021-03-29 22:39] LABS: Arterial Blood Carboxyhemoglob 1.5 % (0-1.5); Blood Gas Oxyhemoglobin 85.7 % (94-97); Blood O2 Saturation 87.9 % (92-98.5)
[2021-03-29] MEDS: ALBUTEROL 2.5 MG/3 ML NEB SOL NEB SCH (22:40)
[2021-03-29] MEDS: IPRATROPIUM BROM 0.5MG/2.5ML NEB SCH (22:40)
[2021-03-29 23:23] VITALS: BMI 37.3
[2021-03-30] MEDS: METHYLPREDNISOLONE 40 MG INJ IV SCH ×3 (00:01→17:29)
[2021-03-30] MEDS: IPRATROPIUM BROM 0.5MG/2.5ML NEB SCH ×4 (02:00→20:40)
[2021-03-30] MEDS: ALBUTEROL 2.5 MG/3 ML NEB SOL NEB SCH ×4 (02:00→20:40)
[2021-03-30 05:49] LABS: Absolute Lymphocytes (CBC) 0.2 K/uL (0.7-4.9); Basophils % 0.1 % (0-1.3); Hematocrit 31.9 % (36.0-45.0); MPV 8.6 fL (7.6-11.3); RBC Red Blood Cell Count 3.77 M/uL (3.86-4.86)
[2021-03-30 06:16] LABS: ALT/SGPT 16 U/L (12-78); AST/SGOT 12 U/L (15-37); Albumin 2.7 g/dL (3.4-5.0); Alkaline Phosphatase 56 U/L (45-117); BUN Blood Urea Nitrogen 31 mg/dL (7-18); Bilirubin Total 0.5 mg/dL (0.2-1.0); Ferritin 91.5 ng/mL (8-388); Glucose Level 162 mg/dL (74-106); Magnesium 2.5 mg/dL (1.8-2.4); Potassium 4.4 mmol/L (3.5-5.1); Protein, Total 5.8 g/dL (6.4-8.2); Sodium Level 137 mmol/L (136-145); Troponin I 0.02 ng/mL (0.0-0.045)
[2021-03-30 06:17] LABS: Bicarbonate > 45 mmol/L (21-32)
[2021-03-30 07:25] LABS: White Blood Cell Scan OK (OK)
[2021-03-30 07:26] LABS: Blood Morphology Comment NOT SEEN (NOT SEEN); Platelet Estimate DECR
--- NOTE | 2021-03-30 07:46 | EKG ---
Test Date: 2021-03-29 Test Time: 11:00:44 Ultrasonic Tester: MICHEAL MEASUREMENT RESULTS: Intervals: Rate: 90 IA: 146 QRSD: 82 QT: 372 QTc: 455 [place]: P: 81 IA: 146 QRS: 90 T: 89 INTERPRETIVE STATEMENTS: Sinus rhythm with premature supraventricular complexes Rightward axis Borderline ECG Compared to ECG 03/17/2021 18:10:55 Atrial premature complex(es) now present Right-axis deviation now present ST (T wave) deviation no longer present Electronically Signed On 03-30-21 07:42:52 CDT by Selvin Mar
--- NOTE | 2021-03-30 08:02 | P.PN ---
Subjective Date of Service: 03/30/21 Primary Care Provider: Dr. Howard Chief Complaint: Respiratory failure Subjective: Improving (awake/alert this morning, feeling much better, asking for BIPAP to be removed, feeling hungry, short of breath, +cough) Review of Systems 10-point ROS is otherwise unremarkable Physical Examination - Vital Signs Temperature: 99.2 F Blood Pressure: 117/73 Pulse: 70 Respirations: 21 Pulse Ox (%): 94 - Studies Laboratory Data (last 24 hrs) 03/29/21 10:45: PT 11.4, INR 0.99 03/29/21 10:45: WBC 9.30 D, Hgb 12.0 D, Hct 39.4 D, Plt Count 103 L D 03/29/21 10:45: Sodium 138, Potassium 5.0, BUN 14, Creatinine 0.71, Glucose 131 H, Magnesium 2.2, Total Bilirubin 0.9, AST 20, ALT 22, Alkaline Phosphatase 79 Assessment & Plan Physician Review Additional Text: Physical Exam General: Alert, Oriented x3 HEENT: PERRL, on BIPAP Respiratory: Diminished, mild expiratory wheezes, crackles bilaterally Cardiovascular: Regular rate/rhythm, Normal S1 S2 Gastrointestinal: soft, nontender Musculoskeletal: No joint swelling Integumentary: No rashes / lesions Neurological: normal strength 5/5 bilaterally upper/lower extremities Problem List Acute on chronic hypoxic hypercapnic respiratory failure secondary to end-stage COPD on home oxygen/home NIV/chronic steroid therapy complicated with left upper lobe pneumonia and COVID+ SANDRITA pneumonia COVID-19+ pneumonia Hypothyroidism Hypertension GERD -concern SANDRITA opacity is due to bacterial pneumonia -follow up cultures, continue Rocephin and Zithromax -continue treatment for COVID per protocol, steroids vitamin supplementation, DVT prophylaxis -continue BiPAP, CO2 significantly improved -patient more alert and oriented this morning, again adamant that she does not want to be intubated again, advised to further discuss with her daughter -patient does seem to have some slight confusion at this time -bedside swallow screen, more alert, can advance diet -will confirm home medications and restart as appropriate VTE: lovenox Code: full Dispo: anticipate hospitalization >48hrs Time Spent Managing Pts Care (In Minutes): 45
--- NOTE | 2021-03-30 08:40 | RAD REPORT ---
EXAM DESCRIPTION: RAD - Chest Single View - 03/30/2021 8:20 am CLINICAL HISTORY: COVID; Respiratory Failure COMPARISON: Chest Single View dated 03/29/2021; Chest Single View dated 03/17/2021; Chest Single View d ated 03/13/2021; Chest Single View dated 11/17/2020 FINDINGS: Masslike consolidation in the left upper lobe without significant change. The right lung i s clear similar mild cardiomegalyNo acute osseous abnormality. No significant pleural effusions or pn eumothorax. IMPRESSION: Masslike consolidation in the left upper lobe without significant change and most likely representing pneumonia.
[2021-03-30] MEDS: DULERA 200/5 (MOMETASONE/FORMOTEROL) INHALER IH SCH ×2 (09:00→21:35)
[2021-03-30] MEDS ORDERED: CEFTRIAXONE 1 GM/NS 50 ML 1 GM/50 ML BAG IV SCH (09:00)
[2021-03-30] MEDS: ZINC SULFATE 220 MG CAP PO SCH (09:29)
[2021-03-30] MEDS: ASCORBIC ACID 500 MG TABLET PO SCH ×4 (09:29→21:35)
[2021-03-30] MEDS: VITAMIN D 1000 UNIT TAB PO SCH (09:29)
[2021-03-30] MEDS: THIAMINE HCL 100 MG TABLET PO SCH (09:29)
[2021-03-30] MEDS: AZITHROMYCIN IV 500 MG in NA CHLORIDE 0.9% 250 ML IVPB SCH (09:30)
[2021-03-30] MEDS: ASPIRIN EC 81 MG TAB PO SCH (09:30)
[2021-03-30] MEDS: BENZONATATE 100 MG CAP PO PRN (09:30)
[2021-03-30] MEDS: CEFTRIAXONE/SWI 1gm 1 GM/10 ML SYR IV SCH (09:30)
[2021-03-30 13:17] LABS: Urine Appearance CLEAR (Clear); Urine Blood 2+ (Negative); Urine Color DK YELLOW (Yellow); Urine Glucose NEGATIVE (Negative); Urine Protein 1+ (Negative)
[2021-03-30 13:24] LABS: Urine Bilirubin 1+ (Negative); Urine Microscopic Reflex ORDER UMIC
[2021-03-30 13:34] LABS: Urine Bacteria 20-50 /HPF (<20); Urine Mucus LIGHT /HPF (NONE SEEN); Urine RBC 20-50 /HPF (NONE SEEN)
[2021-03-30 14:23] LABS: Arterial Blood Carboxyhemoglob 1.1 % (0-1.5); Blood Gas Oxyhemoglobin 95.6 % (94-97); Blood O2 Saturation 97.4 % (92-98.5)
[2021-03-30] MEDS: clonazePAM 0.5 MG TAB PO SCH (23:17)
[2021-03-31] MEDS: ALBUTEROL 2.5 MG/3 ML NEB SOL NEB SCH ×4 (01:30→19:40)
[2021-03-31] MEDS: IPRATROPIUM BROM 0.5MG/2.5ML NEB SCH ×4 (01:30→19:40)
[2021-03-31] MEDS: METHYLPREDNISOLONE 40 MG INJ IV SCH ×3 (02:02→17:16)
[2021-03-31 05:18] LABS: Absolute Lymphocytes (CBC) 0.3 K/uL (0.7-4.9); Hematocrit 30.6 % (36.0-45.0); Lymphocytes % 5.4 % (15.3-44.8); MPV 8.6 fL (7.6-11.3); RBC Red Blood Cell Count 3.63 M/uL (3.86-4.86)
--- NOTE | 2021-03-31 05:53 | P.PN ---
Subjective Date of Service: 03/31/21 Primary Care Provider: Dr. Howard Chief Complaint: Respiratory failure Subjective: Improving (awake/alert this morning, AAOx3, asking if bipap can be removed. nursing reports desaturation to 50% on 6L NC trial. Doing well on BIPAP now) Review of Systems 10-point ROS is otherwise unremarkable Physical Examination - Vital Signs Temperature: 97.7 F Blood Pressure: 107/65 Pulse: 66 Respirations: 27 Pulse Ox (%): 94 Assessment & Plan Physician Review Additional Text: Physical Exam General: Alert, Oriented x3 HEENT: PERRL, on BIPAP Respiratory: Diminished, crackles bilaterally, on BIPAP Cardiovascular: Regular rate/rhythm, Normal S1 S2, no edema Gastrointestinal: soft, nontender Musculoskeletal: No joint swelling Integumentary: No rashes / lesions Neurological: normal strength 5/5 bilaterally upper/lower extremities Problem List Acute on chronic hypoxic hypercapnic respiratory failure secondary to end-stage COPD on home oxygen/home NIV/chronic steroid therapy complicated with left upper lobe pneumonia and COVID+ SANDRITA pneumonia COVID-19+ pneumonia Hypothyroidism Hypertension GERD -concern SANDRITA opacity is due to bacterial pneumonia, follow up cultures, continue Rocephin and Zithromax -continue treatment for COVID per protocol, steroids vitamin supplementation, DVT prophylaxis -continue BiPAP, CO2 significantly improved -clinically improving. likely around day 5-6 of COVID exposure, may decompensate in next 2-3 days -alert/oriented, adamant she does not want to have a tube down her throat ever again, does not want to be intubated, states she spoke with daughter briefly yesterday. -I spoke with daughter, and she states the patient told her that as a last resort she would want to be intubated -will have a phone conference later today to clear this up. VTE: lovenox Code: full Dispo: anticipate hospitalization >48hrs may need LTAC given minimal reserve from chronic respiratory failure / end-stage COPD high mortality risk from COVID infection Time Spent Managing Pts Care (In Minutes): 45
[2021-03-31 06:01] LABS: ALT/SGPT 16 U/L (12-78); AST/SGOT 12 U/L (15-37); Albumin 2.8 g/dL (3.4-5.0); Alkaline Phosphatase 51 U/L (45-117); BUN Blood Urea Nitrogen 37 mg/dL (7-18); Bilirubin Total 0.3 mg/dL (0.2-1.0); Glucose Level 148 mg/dL (74-106); Magnesium 2.4 mg/dL (1.8-2.4); Potassium 3.9 mmol/L (3.5-5.1); Protein, Total 5.8 g/dL (6.4-8.2); Sodium Level 138 mmol/L (136-145)
[2021-03-31 06:02] LABS: Bicarbonate > 45 mmol/L (21-32)
[2021-03-31] MEDS: ASPIRIN EC 81 MG TAB PO SCH (08:15)
[2021-03-31] MEDS: THIAMINE HCL 100 MG TABLET PO SCH (08:15)
[2021-03-31] MEDS: ASCORBIC ACID 500 MG TABLET PO SCH ×4 (08:15→21:15)
[2021-03-31] MEDS: clonazePAM 0.5 MG TAB PO SCH ×2 (08:15→21:16)
[2021-03-31] MEDS: ZINC SULFATE 220 MG CAP PO SCH (08:15)
[2021-03-31] MEDS: DULERA 200/5 (MOMETASONE/FORMOTEROL) INHALER IH SCH ×2 (08:15→21:16)
[2021-03-31] MEDS: CEFTRIAXONE/SWI 1gm 1 GM/10 ML SYR IV SCH (08:16)
[2021-03-31] MEDS: VITAMIN D 1000 UNIT TAB PO SCH (08:16)
[2021-03-31] MEDS: AZITHROMYCIN IV 500 MG in NA CHLORIDE 0.9% 250 ML IVPB SCH (08:16)
[2021-03-31] MEDS ORDERED: POTASSIUM CL SA 10 MEQ TAB PO ONE (09:00)
[2021-03-31] MEDS: NA CHLORIDE 0.9% 1,000 ML IV SCH (12:41)
[2021-03-31] MEDS ORDERED: REMDESIVIR (EUA) 200 MG in NA CHLORIDE 0.9% 250 ML IV ONE (16:00)
[2021-03-31] MEDS ORDERED: BARICITINIB 2 MG TABLET PO SCH (16:00)
[2021-03-31] MEDS: TRAMADOL HCL 50 MG TAB PO PRN (23:29)
[2021-04-01] MEDS: METHYLPREDNISOLONE 40 MG INJ IV SCH ×3 (01:40→17:23)
[2021-04-01] MEDS: ALBUTEROL 2.5 MG/3 ML NEB SOL NEB SCH ×4 (02:50→20:50)
[2021-04-01] MEDS: IPRATROPIUM BROM 0.5MG/2.5ML NEB SCH ×4 (02:50→20:50)
[2021-04-01 04:31] LABS: Protime INR 0.97
[2021-04-01 04:32] LABS: Absolute Lymphocytes (CBC) 0.2 K/uL (0.7-4.9); Lymphocytes % 3.1 % (15.3-44.8); MPV 8.6 fL (7.6-11.3); RBC Red Blood Cell Count 3.53 M/uL (3.86-4.86)
[2021-04-01 04:49] LABS: ALT/SGPT 15 U/L (12-78); AST/SGOT 15 U/L (15-37); Albumin 2.7 g/dL (3.4-5.0); Alkaline Phosphatase 45 U/L (45-117); BUN Blood Urea Nitrogen 23 mg/dL (7-18); Bilirubin Direct < 0.1 mg/dL (0-0.2); Bilirubin Total 0.2 mg/dL (0.2-1.0); Glucose Level 147 mg/dL (74-106); Magnesium 2.2 mg/dL (1.8-2.4); Potassium 4.2 mmol/L (3.5-5.1); Protein, Total 5.6 g/dL (6.4-8.2); Sodium Level 139 mmol/L (136-145)
[2021-04-01 04:50] LABS: Bicarbonate 41 mmol/L (21-32)
[2021-04-01] MEDS: NA CHLORIDE 0.9% 1,000 ML IV SCH ×3 (05:51→20:51)
--- NOTE | 2021-04-01 06:35 | P.PN ---
Subjective Date of Service: 04/01/21 Primary Care Provider: Dr. Howard Chief Complaint: Respiratory failure Subjective: Improving (feeling better, tolerating HFNC, no new complaints) Review of Systems 10-point ROS is otherwise unremarkable Physical Examination - Vital Signs Temperature: 98.6 F Blood Pressure: 103/72 Pulse: 76 Respirations: 22 Pulse Ox (%): 98 Assessment & Plan Physician Review Additional Text: Physical Exam General: Alert, Oriented x3 HEENT: PERRL, on HFNC Respiratory: Diminished, crackles bilaterally, on HFNC Cardiovascular: Regular rate/rhythm, Normal S1 S2, no edema Gastrointestinal: soft, nontender Musculoskeletal: No joint swelling Integumentary: No rashes / lesions Neurological: normal strength 5/5 bilaterally upper/lower extremities Problem List Acute on chronic hypoxic hypercapnic respiratory failure secondary to end-stage COPD on home oxygen/home NIV/chronic steroid therapy complicated with left upper lobe pneumonia and COVID+ SANDRITA pneumonia COVID-19+ pneumonia Hypothyroidism Hypertension GERD -concern SANDRITA opacity is due to bacterial pneumonia, follow up cultures, continue Rocephin and Zithromax -continue treatment for COVID per protocol, steroids vitamin supplementation, DVT prophylaxis, not candidate for baricitinib -continue BiPAP qHS, HFNC throughout day as tolerated, wean as tolerated -clinically improving. likely around day 7 of COVID exposure, may decompensate in next 2-3 days -reviewed with patient and daughter - patient does not want to be intubated under any circumstance, ok with chest compressions/shock -improving, but requiring high levels of oxygen VTE: lovenox Code: full Dispo: anticipate hospitalization >48hrs may need LTAC given minimal reserve from chronic respiratory failure / end-stage COPD, briefly discussed with patient this morning high mortality risk from COVID infection Time Spent Managing Pts Care (In Minutes): 40
[2021-04-01] MEDS: DULERA 200/5 (MOMETASONE/FORMOTEROL) INHALER IH SCH ×2 (09:00→20:51)
[2021-04-01] MEDS: ASCORBIC ACID 500 MG TABLET PO SCH ×4 (09:22→20:51)
[2021-04-01] MEDS: ZINC SULFATE 220 MG CAP PO SCH (09:22)
[2021-04-01] MEDS: THIAMINE HCL 100 MG TABLET PO SCH (09:22)
[2021-04-01] MEDS: ASPIRIN EC 81 MG TAB PO SCH (09:22)
[2021-04-01] MEDS: REMDESIVIR (EUA) 100 MG in NA CHLORIDE 0.9% 250 ML IV SCH (09:22)
[2021-04-01] MEDS: CEFTRIAXONE/SWI 1gm 1 GM/10 ML SYR IV SCH (09:22)
[2021-04-01] MEDS: VITAMIN D 1000 UNIT TAB PO SCH (09:22)
[2021-04-01] MEDS: ACETAZOLAMIDE 500 MG IV IV SCH (09:23)
[2021-04-01] MEDS ORDERED: WATER FOR INJ,STERILE 10 ML ONE (09:50)
[2021-04-01] MEDS: AZITHROMYCIN IV 500 MG in NA CHLORIDE 0.9% 250 ML IVPB SCH (10:50)
[2021-04-01] MEDS: clonazePAM 0.5 MG TAB PO SCH (20:51)
[2021-04-02] MEDS: METHYLPREDNISOLONE 40 MG INJ IV SCH (01:21)
[2021-04-02] MEDS: ALBUTEROL 2.5 MG/3 ML NEB SOL NEB SCH ×4 (01:50→19:35)
[2021-04-02] MEDS: IPRATROPIUM BROM 0.5MG/2.5ML NEB SCH ×4 (01:50→19:35)
[2021-04-02] MEDS: NA CHLORIDE 0.9% 1,000 ML IV SCH ×3 (04:00→17:20)
[2021-04-02 05:16] LABS: Absolute Lymphocytes (CBC) 0.1 K/uL (0.7-4.9); Hematocrit 29.6 % (36.0-45.0); Lymphocytes % 4.5 % (15.3-44.8); MPV 8.3 fL (7.6-11.3); RBC Red Blood Cell Count 3.43 M/uL (3.86-4.86)
[2021-04-02 05:35] LABS: ALT/SGPT 46 U/L (12-78); AST/SGOT 43 U/L (15-37); Albumin 2.4 g/dL (3.4-5.0); Alkaline Phosphatase 41 U/L (45-117); BUN Blood Urea Nitrogen 23 mg/dL (7-18); Bicarbonate 40 mmol/L (21-32); Bilirubin Direct < 0.1 mg/dL (0-0.2); Bilirubin Total 0.2 mg/dL (0.2-1.0); Ferritin 253.4 ng/mL (8-388); Glucose Level 216 mg/dL (74-106); Magnesium 2.3 mg/dL (1.8-2.4); Potassium 4.2 mmol/L (3.5-5.1); Protein, Total 5.4 g/dL (6.4-8.2); Sodium Level 139 mmol/L (136-145)
--- NOTE | 2021-04-02 06:56 | P.PN ---
Subjective Date of Service: 04/02/21 Primary Care Provider: Dr. Howard Chief Complaint: Respiratory failure Subjective: No new changes (no significant change, desaturates quickly, takes a long time to come back up. off/on bipap, needing HFNC. some worsening anxiety today) Review of Systems 10-point ROS is otherwise unremarkable Physical Examination - Vital Signs Temperature: 97.7 F Blood Pressure: 111/66 Pulse: 58 Respirations: 20 Pulse Ox (%): 93 Assessment & Plan Physician Review Additional Text: Physical Exam General: Alert, Oriented x3, +anxious HEENT: PERRL, normal conjunctiva Respiratory: Diminished, crackles bilaterally, on HFNC Cardiovascular: Regular rate/rhythm, Normal S1 S2, no edema Gastrointestinal: soft, nontender Musculoskeletal: No joint swelling Integumentary: No rashes / lesions Neurological: normal strength 5/5 bilaterally upper/lower extremities Problem List Acute on chronic hypoxic hypercapnic respiratory failure secondary to end-stage COPD on home oxygen/NIV/chronic steroid therapy complicated with left upper lobe pneumonia and COVID+ SANDRITA pneumonia COVID-19+ pneumonia Hypothyroidism Hypertension Anxiety GERD -concern SANDRITA opacity is due to bacterial pneumonia, follow up cultures, continue Rocephin and Zithromax -continue treatment for COVID per protocol, steroids vitamin supplementation, DVT prophylaxis, not candidate for baricitinib -continue BiPAP qHS, HFNC throughout day as tolerated, wean as tolerated -clinically improving. likely around day ~8 of COVID exposure, at risk to decompensate in next ~2 days -ferritin rising but WNL, CRP stable -reviewed with patient and daughter - patient does not want to be intubated under any circumstance, ok with chest compressions/shock -stable, but requiring high levels of oxygen, desaturates quickly, rebound is slow VTE: lovenox Code: full Dispo: anticipate hospitalization >48hrs discussed with patient and daughter today - regarding potential need for LTAC given minimal reserve from chronic respiratory failure / end-stage COPD seem receptive to this, understand her risk and pulm history. If continues to improve / stabilize, may be able to start that process tomorrow Time Spent Managing Pts Care (In Minutes): 35
[2021-04-02] MEDS: DULERA 200/5 (MOMETASONE/FORMOTEROL) INHALER IH SCH ×2 (07:00→21:36)
[2021-04-02 08:16] LABS: Blood Morphology Comment NOT SEEN (NOT SEEN); Platelet Estimate DECR
[2021-04-02] MEDS: METHYLPREDNISOLONE 125 MG INJ IV SCH ×2 (08:29→16:44)
[2021-04-02] MEDS: CEFTRIAXONE/SWI 1gm 1 GM/10 ML SYR IV SCH (08:30)
[2021-04-02] MEDS: ASCORBIC ACID 500 MG TABLET PO SCH ×4 (08:30→21:19)
[2021-04-02] MEDS: ASPIRIN EC 81 MG TAB PO SCH (08:30)
[2021-04-02] MEDS: VITAMIN D 1000 UNIT TAB PO SCH (08:30)
[2021-04-02] MEDS: THIAMINE HCL 100 MG TABLET PO SCH (08:31)
[2021-04-02] MEDS: ZINC SULFATE 220 MG CAP PO SCH (08:31)
[2021-04-02] MEDS: ACETAZOLAMIDE 500 MG IV IV SCH (08:31)
[2021-04-02] MEDS: AZITHROMYCIN IV 500 MG in NA CHLORIDE 0.9% 250 ML IVPB SCH (08:36)
--- NOTE | 2021-04-02 09:24 | RAD REPORT ---
EXAM DESCRIPTION: RAD - Chest Single View - 04/02/2021 6:22 am CLINICAL HISTORY: hypoxia, f/u pneumonia / opacity. +COVID Chest pain. COMPARISON: Chest Single View dated 03/30/2021; Chest Single View dated 03/29/2021; Chest Single View da sarah 03/17/2021; Chest Single View dated 03/13/2021 FINDINGS: Portable technique limits examination quality. Asymmetric pulmonary opacities are again seen, with mild improvement in left lung aeration since 05/2021 study. The heart is mildly enlarged in size. No displaced fractures. IMPRESSION: Mild improvement in left lung aeration is noted since comparative examination.
[2021-04-02] MEDS: REMDESIVIR (EUA) 100 MG in NA CHLORIDE 0.9% 250 ML IV SCH (09:45)
[2021-04-02] MEDS: clonazePAM 0.5 MG TAB PO PRN (21:23)
[2021-04-03] MEDS: METHYLPREDNISOLONE 125 MG INJ IV SCH ×3 (00:41→16:30)
[2021-04-03] MEDS: ALBUTEROL 2.5 MG/3 ML NEB SOL NEB SCH ×4 (01:40→20:00)
[2021-04-03] MEDS: IPRATROPIUM BROM 0.5MG/2.5ML NEB SCH ×4 (01:40→20:00)
[2021-04-03] MEDS: NA CHLORIDE 0.9% 1,000 ML IV SCH ×2 (02:11→20:06)
[2021-04-03 04:46] LABS: Absolute Lymphocytes (CBC) 0.1 K/uL (0.7-4.9); Basophils % 0.2 % (0-1.3); Hematocrit 28.8 % (36.0-45.0); Lymphocytes % 4.7 % (15.3-44.8); MPV 8.7 fL (7.6-11.3); RBC Red Blood Cell Count 3.39 M/uL (3.86-4.86)
[2021-04-03 05:15] LABS: ALT/SGPT 40 U/L (12-78); AST/SGOT 21 U/L (15-37); Albumin 2.3 g/dL (3.4-5.0); Alkaline Phosphatase 39 U/L (45-117); BUN Blood Urea Nitrogen 27 mg/dL (7-18); Bicarbonate 38 mmol/L (21-32); Bilirubin Direct < 0.1 mg/dL (0-0.2); Bilirubin Total 0.2 mg/dL (0.2-1.0); Ferritin 332.9 ng/mL (8-388); Glucose Level 221 mg/dL (74-106); Magnesium 2.1 mg/dL (1.8-2.4); Potassium 4.6 mmol/L (3.5-5.1); Protein, Total 5.1 g/dL (6.4-8.2); Sodium Level 139 mmol/L (136-145)
[2021-04-03] MEDS: ASPIRIN EC 81 MG TAB PO SCH (08:07)
[2021-04-03] MEDS: THIAMINE HCL 100 MG TABLET PO SCH (08:07)
[2021-04-03] MEDS: VITAMIN D 1000 UNIT TAB PO SCH (08:08)
[2021-04-03] MEDS: ZINC SULFATE 220 MG CAP PO SCH (08:08)
[2021-04-03] MEDS: ASCORBIC ACID 500 MG TABLET PO SCH ×4 (08:08→20:05)
[2021-04-03] MEDS: ACETAZOLAMIDE 500 MG IV IV SCH (08:09)
[2021-04-03] MEDS: AZITHROMYCIN IV 500 MG in NA CHLORIDE 0.9% 250 ML IVPB SCH (08:09)
[2021-04-03] MEDS: CEFTRIAXONE/SWI 1gm 1 GM/10 ML SYR IV SCH (08:09)
[2021-04-03] MEDS: DULERA 200/5 (MOMETASONE/FORMOTEROL) INHALER IH SCH ×2 (08:10→20:05)
[2021-04-03] MEDS: REMDESIVIR (EUA) 100 MG in NA CHLORIDE 0.9% 250 ML IV SCH (08:59)
[2021-04-03] MEDS: TRAMADOL HCL 50 MG TAB PO PRN ×2 (10:13→22:56)
--- NOTE | 2021-04-03 18:18 | P.PN ---
Subjective Date of Service: 04/03/21 Primary Care Provider: Dr. Howard Chief Complaint: Respiratory failure No new complaint today. Patient still alternating between high-flow oxygen and BiPAP. She has severe COPD requiring home NIV at baseline. Physical Examination - Vital Signs Temperature: 98.2 F Blood Pressure: 128/80 Pulse: 93 Respirations: 24 Pulse Ox (%): 96 - Physical Exam General: Alert, Oriented x3, Mild distress (Respiratory distress), Obese HEENT: Mucous membr. moist/pink Neck: JVD not distended Respiratory: Diminished, Other (Pursed lip breathing.) Cardiovascular: Normal pulses, Regular rate/rhythm, Normal S1 S2 Gastrointestinal: Soft and benign, Non-distended Musculoskeletal: No swelling, No tenderness Integumentary: No rashes, No erythema Neurological: Normal strength at 5/5 x4 extr - Studies Microbiology Data (last 24 hrs): 03/29/21 11:35 Blood - Blood Aerobic Blood Culture - Final No growth in 5 days. 03/29/21 11:35 Blood - Blood Anaerobic Blood Culture - Final No growth in 5 days. 03/29/21 11:00 Blood - Blood Aerobic Blood Culture - Final No growth in 5 days. 03/29/21 11:00 Blood - Blood Anaerobic Blood Culture - Final No growth in 5 days. Assessment And Plan Physician Review Additional Text: Problem List Acute on chronic hypoxic hypercapnic respiratory failure secondary to end-stage COPD on home oxygen/NIV/chronic steroid therapy complicated with left upper lobe pneumonia and COVID+ SANDRITA pneumonia COVID-19+ pneumonia Hypothyroidism Hypertension Anxiety GERD -concern SANDRITA opacity is due to bacterial pneumonia. continue Rocephin and Zithromax -continue treatment for COVID per protocol, steroids vitamin supplementation, DVT prophylaxis, not candidate for baricitinib -continue BiPAP qHS, HFNC throughout day as tolerated, wean as tolerated -baseline end-stage COPD with severe respiratory failure on home NIV and oxygen -chest x-ray reading shows some improvement. -DNI per patient. -Patient requiring high levels of oxygen, desaturates quickly, rebound is slow -continue Remdesivir. VTE: lovenox Code: full Dispo: telephone worker evaluating for LTAC palcement.
[2021-04-03] MEDS: clonazePAM 0.5 MG TAB PO PRN (20:05)
[2021-04-04] MEDS: METHYLPREDNISOLONE 125 MG INJ IV SCH ×3 (00:05→17:03)
[2021-04-04] MEDS: IPRATROPIUM BROM 0.5MG/2.5ML NEB SCH ×5 (01:35→20:30)
[2021-04-04] MEDS: ALBUTEROL 2.5 MG/3 ML NEB SOL NEB SCH ×5 (01:35→20:30)
[2021-04-04 05:10] LABS: Absolute Lymphocytes (CBC) 0.2 K/uL (0.7-4.9); Basophils % 0.1 % (0-1.3); Lymphocytes % 5.9 % (15.3-44.8); MPV 8.4 fL (7.6-11.3); RBC Red Blood Cell Count 3.62 M/uL (3.86-4.86)
[2021-04-04 05:17] LABS: ALT/SGPT 48 U/L (12-78); AST/SGOT 18 U/L (15-37); Albumin 2.4 g/dL (3.4-5.0); Alkaline Phosphatase 41 U/L (45-117); BUN Blood Urea Nitrogen 27 mg/dL (7-18); Bicarbonate 38 mmol/L (21-32); Bilirubin Direct < 0.1 mg/dL (0-0.2); Bilirubin Total 0.2 mg/dL (0.2-1.0); Glucose Level 200 mg/dL (74-106); Magnesium 2.1 mg/dL (1.8-2.4); Potassium 5.1 mmol/L (3.5-5.1); Protein, Total 5.3 g/dL (6.4-8.2); Sodium Level 140 mmol/L (136-145)
[2021-04-04] MEDS: ASCORBIC ACID 500 MG TABLET PO SCH ×4 (08:17→20:18)
[2021-04-04] MEDS: ZINC SULFATE 220 MG CAP PO SCH (08:17)
[2021-04-04] MEDS: THIAMINE HCL 100 MG TABLET PO SCH (08:17)
[2021-04-04] MEDS: VITAMIN D 1000 UNIT TAB PO SCH (08:17)
[2021-04-04] MEDS: CEFTRIAXONE/SWI 1gm 1 GM/10 ML SYR IV SCH (08:17)
[2021-04-04] MEDS: ASPIRIN EC 81 MG TAB PO SCH (08:17)
[2021-04-04] MEDS: AZITHROMYCIN IV 500 MG in NA CHLORIDE 0.9% 250 ML IVPB SCH (08:18)
[2021-04-04] MEDS: DULERA 200/5 (MOMETASONE/FORMOTEROL) INHALER IH SCH ×2 (08:18→20:23)
[2021-04-04] MEDS: ACETAZOLAMIDE 500 MG IV IV SCH (08:19)
[2021-04-04] MEDS: clonazePAM 0.5 MG TAB PO PRN ×2 (08:48→20:18)
[2021-04-04] MEDS: REMDESIVIR (EUA) 100 MG in NA CHLORIDE 0.9% 250 ML IV SCH (09:36)
[2021-04-04] MEDS: NA CHLORIDE 0.9% 1,000 ML IV SCH (09:36)
--- NOTE | 2021-04-04 17:01 | P.PN ---
Subjective Date of Service: 04/04/21 Primary Care Provider: Dr. Howard Chief Complaint: Respiratory failure Patient doing better today. She is dependent on high-flow oxygen and BiPAP but weaning down FiO2. Patient is currently tolerating 50 - 55%. No fever. She is eating well. Physical Examination - Vital Signs Temperature: 97.9 F Blood Pressure: 125/77 Pulse: 98 Respirations: 19 Pulse Ox (%): 90 - Physical Exam General: Alert, In no apparent distress, Oriented x3 HEENT: Other (BiPAP) Respiratory: Other (Nonlabored breathing) Cardiovascular: No edema, Regular rate/rhythm, Normal S1 S2 Gastrointestinal: Soft and benign, Non-distended Musculoskeletal: No swelling Integumentary: No rashes Neurological: Normal strength at 5/5 x4 extr Assessment And Plan Physician Review Additional Text: Problem List Acute on chronic hypoxic hypercapnic respiratory failure secondary to end-stage COPD on home oxygen/NIV/chronic steroid therapy complicated with left upper lobe pneumonia and COVID+ SANDRITA pneumonia COVID-19+ pneumonia Hypothyroidism Hypertension Anxiety GERD -concern SANDRITA opacity is due to bacterial pneumonia. continue antibiotics. -continue treatment for COVID per protocol, steroids vitamin supplementation, DVT prophylaxis, not candidate for baricitinib -continue BiPAP qHS, HFNC throughout day as tolerated, wean FiO2 as tolerated -baseline end-stage COPD with severe respiratory failure on home NIV and oxygen -chest x-ray reading shows some improvement. -DNI per patient. -continue Remdesivir. VTE: lovenox Code: full Dispo: Home with home health.
[2021-04-05] MEDS: METHYLPREDNISOLONE 125 MG INJ IV SCH ×2 (00:08→09:36)
[2021-04-05] MEDS: ALBUTEROL 2.5 MG/3 ML NEB SOL NEB SCH ×3 (01:10→14:00)
[2021-04-05] MEDS: IPRATROPIUM BROM 0.5MG/2.5ML NEB SCH ×3 (01:10→14:00)
[2021-04-05 04:53] LABS: Absolute Lymphocytes (CBC) 0.1 K/uL (0.7-4.9); Basophils % 0.3 % (0-1.3); Hematocrit 29.4 % (36.0-45.0); Lymphocytes % 3.5 % (15.3-44.8); MPV 8.1 fL (7.6-11.3); RBC Red Blood Cell Count 3.45 M/uL (3.86-4.86)
[2021-04-05 05:00] LABS: BUN Blood Urea Nitrogen 26 mg/dL (7-18); Bicarbonate 35 mmol/L (21-32); Glucose Level 230 mg/dL (74-106); Potassium 5.1 mmol/L (3.5-5.1); Sodium Level 138 mmol/L (136-145)
[2021-04-05] MEDS: DULERA 200/5 (MOMETASONE/FORMOTEROL) INHALER IH SCH ×2 (09:00→21:00)
[2021-04-05] MEDS: VITAMIN D 1000 UNIT TAB PO SCH (09:35)
[2021-04-05] MEDS: THIAMINE HCL 100 MG TABLET PO SCH (09:36)
[2021-04-05] MEDS: ASCORBIC ACID 500 MG TABLET PO SCH ×4 (09:36→21:14)
[2021-04-05] MEDS: ZINC SULFATE 220 MG CAP PO SCH (09:36)
[2021-04-05] MEDS: CEFTRIAXONE/SWI 1gm 1 GM/10 ML SYR IV SCH (09:36)
[2021-04-05] MEDS: ASPIRIN EC 81 MG TAB PO SCH (09:36)
[2021-04-05] MEDS: AZITHROMYCIN IV 500 MG in NA CHLORIDE 0.9% 250 ML IVPB SCH (09:36)
[2021-04-05] MEDS: ACETAZOLAMIDE 500 MG IV IV SCH (09:37)
[2021-04-05] MEDS: clonazePAM 0.5 MG TAB PO PRN ×2 (09:42→17:35)
[2021-04-05] MEDS: BENZONATATE 100 MG CAP PO PRN (11:31)
[2021-04-05] MEDS: TRAMADOL HCL 50 MG TAB PO PRN ×2 (11:32→22:51)
--- NOTE | 2021-04-05 12:47 | P.PN ---
Subjective Date of Service: 04/05/21 Primary Care Provider: Dr. Howard Chief Complaint: Respiratory failure Patient is doing better. She is more interactive. Seen on high-flow oxygen in the ED. FiO2 is currently 85%. Physical Examination - Vital Signs Temperature: 97.2 F Blood Pressure: 127/70 Pulse: 81 Respirations: 14 Pulse Ox (%): 87 - Physical Exam General: Alert, In no apparent distress HEENT: Mucous membr. moist/pink Neck: JVD not distended Respiratory: Other (Nonlabored breathing) Cardiovascular: Regular rate/rhythm, Normal S1 S2, Edema (Lower extremities) Gastrointestinal: Soft and benign, Non-distended Musculoskeletal: No swelling Assessment And Plan Physician Review Additional Text: Problem List Acute on chronic hypoxic hypercapnic respiratory failure secondary to end-stage COPD on home oxygen/NIV/chronic steroid therapy complicated with left upper lobe pneumonia and COVID+ SANDRITA pneumonia COVID-19+ pneumonia Hypothyroidism Hypertension Anxiety GERD -concern SANDRITA opacity is due to bacterial pneumonia. Completed antibiotics for pneumonia. -continue treatment for COVID per protocol, steroids vitamin supplementation, DVT prophylaxis, not candidate for baricitinib -continue BiPAP qHS, HFNC throughout day as tolerated, wean FiO2 as tolerated. -baseline end-stage COPD with severe respiratory failure on home NIV and oxygen -DNI per patient. -completed Remdesivir. VTE: lovenox Code: full Dispo: Home with home health.
[2021-04-05] MEDS: predniSONE 20 MG TAB PO SCH ×2 (12:48→21:14)
--- NOTE | 2021-04-05 20:52 | P.CNS ---
Date of Consult: 04/05/21 (TV) Reason for Consult: A/C resp failure from COVID Primary Care Provider: Dr. Howard Chief Complaint: Respiratory failure History of Present Illness: Age 60 Well knoen to me recurrent hosp admissions/ Terminal COPD/ Found confused and desaturation and tested pos for COVID, CXRY ILD. Feeling better today back to her baseline Allergies codeine [Codeine] Adverse Reaction (Mild, Verified 02/15/21 08:47) itch Home Medications: Albuterol Sulfate [Proair Hfa] 1 puff IH QID PRN 10/23/20 Atorvastatin Calcium [Lipitor*] 20 mg PO BEDTIME 10/23/20 Gabapentin 300 mg PO BID 10/23/20 Roflumilast [Daliresp*] 500 mcg PO DAILY 10/23/20 Umeclidinium Brm/Vilanterol Tr [Anoro Ellipta 62.5-25 Mcg INH] 1 puff IN DAILY 10/23/20 clonazePAM [Klonopin*] 0.5 mg PO DAILY PRN 10/23/20 Tramadol HCl [Ultram] 50 mg PO TID PRN 30 Days #60 tablet 11/21/20 Pantoprazole [Protonix Tab*] 40 mg PO DAILY 02/14/21 Ropinirole HCl [Requip*] 1 mg PO BEDTIME 02/14/21 acetaZOLAMIDE [Diamox*] 250 mg PO DAILY 30 Days #30 tab 03/15/21 - Past Medical/Surgical History Diabetic: No -: Severe COPD, oxygen/steroid dependent,Pulmonary-Dr. Do -: Mild pulmonary hypertension -: Hypothyroidism -: Bipolar disorder -: Hypertension -: Chronic low back pain -: Obstructive sleep apnea -: Tobacco abuse -: HLD -: GERD -: Appendectomy -: Psychosocial/ Personal History: She lives with a partner. She has 1 child. She is currently disabled. - Family History Father Medical History: Heart disease, Hypertension, Diabetes Notes: from CHF Mother Medical History: Heart disease, Hypertension, Diabetes Notes: from CHF Brother Medical History: Diabetes Sister Medical History: Heart disease, Diabetes Notes: from CHF - Social History Smoking Status: Unknown if ever smoked Alcohol use: Yes CD- Drugs: No Caffeine use: Yes Review of Systems General: Weakness Respiratory: Shortness of Breath Physical Examination Temp Pulse Resp BP Pulse Ox 98.4 F 88 19 121/68 94 04/05/21 20:00 04/05/21 20:00 04/05/21 20:00 04/05/21 20:00 04/05/21 20:00 - Problems (1) COVID Current Visit: Yes Status: Acute Plan: Pt is 60 yrs of age terminal CODP Aw A/C resp failure from COVID. CXRY ILD/ Now alert feeling better/ ABG better than baseline/ Titrate O2 sat fo 88-90%/ unable to transfer to LTAC/CW pred/ Discharge when 4 l ncan O2
[2021-04-05] MEDS: acetaZOLAMIDE 250 MG TAB PO SCH (21:13)
[2021-04-05] MEDS: ENOXAPARIN 40 MG/0.4 ML SQ SCH (21:13)
[2021-04-05] MEDS: ROPINIROLE HCL 1 MG TAB PO SCH (21:14)
[2021-04-06] MEDS: IPRATROPIUM BROM 0.5MG/2.5ML NEB SCH ×4 (01:40→20:20)
[2021-04-06] MEDS: ALBUTEROL 2.5 MG/3 ML NEB SOL NEB SCH ×4 (01:40→20:20)
[2021-04-06 06:46] LABS: Absolute Lymphocytes (CBC) 0.3 K/uL (0.7-4.9); Basophils % 0.1 % (0-1.3)
[2021-04-06 07:04] LABS: Potassium 4.7 mmol/L (3.5-5.1)
[2021-04-06 07:07] LABS: Hematocrit 32.2 % (36.0-45.0); Lymphocytes % 4.4 % (15.3-44.8); MPV 7.6 fL (7.6-11.3); RBC Red Blood Cell Count 3.74 M/uL (3.86-4.86)
[2021-04-06 07:34] LABS: C-Reactive Protein 5.98 mg/L (<3.00); Ferritin 134.1 ng/mL (8-388)
[2021-04-06] MEDS: HOME MED 1 EA UNK (Umeclidinium Brm/Vilanterol Tr [Anoro Ellipta 62.5-25 Mcg Inh] Blst.W.D IH SCH (09:00)
[2021-04-06] MEDS: DULERA 200/5 (MOMETASONE/FORMOTEROL) INHALER IH SCH ×2 (09:00→21:22)
[2021-04-06] MEDS: predniSONE 20 MG TAB PO SCH ×3 (09:36→21:23)
[2021-04-06] MEDS: VITAMIN D 1000 UNIT TAB PO SCH (09:36)
[2021-04-06] MEDS: THIAMINE HCL 100 MG TABLET PO SCH (09:36)
[2021-04-06] MEDS: ASPIRIN EC 81 MG TAB PO SCH (09:36)
[2021-04-06] MEDS: ROFLUMILAST 500 MCG TABLET PO SCH (09:36)
[2021-04-06] MEDS: acetaZOLAMIDE 250 MG TAB PO SCH ×2 (09:36→21:23)
[2021-04-06] MEDS: ZINC SULFATE 220 MG CAP PO SCH (09:36)
[2021-04-06] MEDS: ASCORBIC ACID 500 MG TABLET PO SCH ×4 (09:37→21:23)
[2021-04-06] MEDS: IVERMECTIN 3 MG TABLET PO SCH (09:37)
[2021-04-06] MEDS: clonazePAM 0.5 MG TAB PO PRN ×2 (11:41→21:23)
--- NOTE | 2021-04-06 12:36 | P.PN ---
Subjective Date of Service: 04/06/21 Primary Care Provider: Dr. Howard Chief Complaint: Respiratory failure Patient has no new complain. She denies shortness of breath. Seen on high-flow oxygen in the ED. FiO2 is currently 65%. Physical Examination - Vital Signs Temperature: 98.3 F Blood Pressure: 134/82 Pulse: 86 Respirations: 20 Pulse Ox (%): 92 - Physical Exam General: Alert, In no apparent distress, Oriented x3 HEENT: Other (High-flow oxygen) Neck: JVD not distended Respiratory: Other (Nonlabored breathing) Cardiovascular: Regular rate/rhythm, Normal S1 S2 Gastrointestinal: Soft and benign, Non-distended Musculoskeletal: No swelling Integumentary: No rashes Neurological: Normal strength at 5/5 x4 extr Assessment And Plan Physician Review Additional Text: Problem List Acute on chronic hypoxic hypercapnic respiratory failure secondary to end-stage COPD on home oxygen/NIV/chronic steroid therapy complicated with left upper lobe pneumonia and COVID+ SANDRITA pneumonia COVID-19+ pneumonia Hypothyroidism Hypertension Anxiety GERD -Completed antibiotics for pneumonia. -continue treatment for COVID per protocol, steroids vitamin supplementation, DVT prophylaxis, not candidate for baricitinib -continue BiPAP qHS, HFNC throughout day as tolerated, wean FiO2 as tolerated. -baseline end-stage COPD with severe respiratory failure on home NIV and oxygen -DNI per patient. -completed Remdesivir. -target FiO2 for discharge is 28 to 30% VTE: lovenox Code: full Dispo: Home with home health.
[2021-04-06 14:33] LABS: Blood Gas Oxyhemoglobin 85.7 % (94-97); Blood O2 Saturation 87.4 % (92-98.5)
--- NOTE | 2021-04-06 17:06 | P.PN ---
Subjective Date of Service: 04/06/21 (TV) Primary Care Provider: Dr. Howard Chief Complaint: Respiratory failure NC more unresponsice today/ unable wean down on O2 Review of Systems Respiratory: Shortness of Breath Physical Examination - Vital Signs Temperature: 98.3 F Blood Pressure: 134/82 Pulse: 86 Respirations: 20 Pulse Ox (%): 92 Assessment & Plan - Problems (Diagnosis) (1) COVID Current Visit: Yes Status: Acute Plan: REsp failure/ On ivermectin/REquiring 50% [id number] reviewed/ CRY ordered/ NC in treatment
[2021-04-06] MEDS: ENOXAPARIN 40 MG/0.4 ML SQ SCH (21:22)
[2021-04-06] MEDS: ROPINIROLE HCL 1 MG TAB PO SCH (21:23)
[2021-04-07] MEDS: IPRATROPIUM BROM 0.5MG/2.5ML NEB SCH ×4 (02:40→20:00)
[2021-04-07] MEDS: ALBUTEROL 2.5 MG/3 ML NEB SOL NEB SCH ×3 (02:40→14:16)
--- NOTE | 2021-04-07 07:06 | RAD REPORT ---
EXAM DESCRIPTION: RAD - Chest Single View - 04/07/2021 6:43 am CLINICAL HISTORY: resp failure COMPARISON: Chest Single View dated 04/02/2021; Chest Single View dated 03/30/2021; Chest Single View d ated 03/29/2021; Chest Single View dated 03/17/2021 FINDINGS: Decreased lung volumes with increasing basilar opacities. Diffuse prominence of the pulmon marlo interstitium. Cardiomegaly.No acute osseous abnormality. Question bilateral pleural effusions. IMPRESSION: Decreased lung volumes with increased basilar opacities that may reflect atelectasis. Ed jessica with pleural effusions remain.
[2021-04-07] MEDS: HOME MED 1 EA UNK (Umeclidinium Brm/Vilanterol Tr [Anoro Ellipta 62.5-25 Mcg Inh] Blst.W.D IH SCH (09:00)
[2021-04-07] MEDS: DULERA 200/5 (MOMETASONE/FORMOTEROL) INHALER IH SCH ×2 (09:00→21:42)
[2021-04-07] MEDS: acetaZOLAMIDE 250 MG TAB PO SCH ×2 (09:55→21:36)
[2021-04-07] MEDS: ZINC SULFATE 220 MG CAP PO SCH (09:55)
[2021-04-07] MEDS: clonazePAM 0.5 MG TAB PO PRN ×2 (09:55→21:36)
[2021-04-07] MEDS: predniSONE 20 MG TAB PO SCH ×3 (09:55→21:36)
[2021-04-07] MEDS: ASCORBIC ACID 500 MG TABLET PO SCH ×4 (09:55→21:36)
[2021-04-07] MEDS: THIAMINE HCL 100 MG TABLET PO SCH (09:55)
[2021-04-07] MEDS: ASPIRIN EC 81 MG TAB PO SCH (09:56)
[2021-04-07] MEDS: VITAMIN D 1000 UNIT TAB PO SCH (09:56)
[2021-04-07] MEDS: ROFLUMILAST 500 MCG TABLET PO SCH (09:56)
[2021-04-07] MEDS: TRAMADOL HCL 50 MG TAB PO PRN ×2 (10:31→17:00)
--- NOTE | 2021-04-07 13:29 | P.PN ---
Subjective Date of Service: 04/07/21 Primary Care Provider: Dr. Howard Chief Complaint: Respiratory failure Patient has no new complain. She denies shortness of breath. Patient appear comfortable on her BiPAP. Physical Examination - Vital Signs Temperature: 97.8 F Blood Pressure: 123/81 Pulse: 93 Respirations: 26 Pulse Ox (%): 91 - Physical Exam General: In no apparent distress, Oriented x3 HEENT: Mucous membr. moist/pink Respiratory: Other (Nonlabored breathing.) Cardiovascular: No edema, Regular rate/rhythm Gastrointestinal: Soft and benign, Non-distended Integumentary: No rashes Assessment And Plan Physician Review Additional Text: Problem List Acute on chronic hypoxic hypercapnic respiratory failure secondary to end-stage COPD on home oxygen/NIV/chronic steroid therapy complicated with left upper lobe pneumonia and COVID+ SANDRITA pneumonia COVID-19+ pneumonia Hypothyroidism Hypertension Anxiety GERD -Completed antibiotics for pneumonia. -continue treatment for COVID per protocol, steroids vitamin supplementation, DVT prophylaxis, not candidate for baricitinib -continue BiPAP qHS, HFNC throughout day as tolerated, wean FiO2 as tolerated. -baseline end-stage COPD with severe respiratory failure on home NIV and oxygen -DNI per patient. -completed Remdesivir. -target FiO2 for discharge is 28 to 30% VTE: lovenox Code: full Dispo: Home with home health.
[2021-04-07] MEDS ORDERED: LORazepam 2 MG/ML VIAL IV ONE (13:56)
--- NOTE | 2021-04-07 16:45 | P.PN ---
Subjective Date of Service: 04/07/21 (TV) Primary Care Provider: Dr. Howard Chief Complaint: Respiratory failure NC Alert and responsive on BIPAP/ Still requiring high concentration of Fio2 Review of Systems Respiratory: Shortness of Breath Physical Examination - Vital Signs Temperature: 98.3 F Blood Pressure: 118/76 Pulse: 78 Respirations: 23 Pulse Ox (%): 92 Assessment & Plan - Problems (Diagnosis) (1) COVID Current Visit: Yes Status: Acute Plan: Resp failure. Cond stable No sig change/ CXRY bilateral ILD /reduce pred 20 BID. Repeat ABG am
[2021-04-07] MEDS: ROPINIROLE HCL 1 MG TAB PO SCH (21:41)
[2021-04-07] MEDS: ENOXAPARIN 40 MG/0.4 ML SQ SCH (21:41)
[2021-04-08] MEDS: IPRATROPIUM BROM 0.5MG/2.5ML NEB SCH ×4 (02:27→20:45)
--- NOTE | 2021-04-08 07:46 | RAD REPORT ---
EXAM DESCRIPTION: RAD - Chest Single View - 04/08/2021 6:16 am CLINICAL HISTORY: resp failure Chest pain. COMPARISON: Chest Single View dated 04/07/2021; Chest Single View dated 04/02/2021; Chest Single View dated 03/30/2021; Chest Single View dated 03/29/2021 FINDINGS: Portable technique limits examination quality. Since 04/07/2021, little overall change is seen in the moderate bilateral pulmonary opacities. The he art is mildly enlarged in size. No displaced fractures. IMPRESSION: Stable chest since yesterday's study.
[2021-04-08] MEDS: ALBUTEROL 2.5 MG/3 ML NEB SOL NEB PRN ×2 (08:56→14:28)
[2021-04-08] MEDS: predniSONE 20 MG TAB PO SCH (08:59)
[2021-04-08] MEDS: ASPIRIN EC 81 MG TAB PO SCH (08:59)
[2021-04-08] MEDS: VITAMIN D 1000 UNIT TAB PO SCH (08:59)
[2021-04-08] MEDS: ROFLUMILAST 500 MCG TABLET PO SCH (08:59)
[2021-04-08] MEDS: THIAMINE HCL 100 MG TABLET PO SCH (08:59)
[2021-04-08] MEDS: ASCORBIC ACID 500 MG TABLET PO SCH ×4 (08:59→21:10)
[2021-04-08] MEDS: ZINC SULFATE 220 MG CAP PO SCH (08:59)
[2021-04-08] MEDS: DULERA 200/5 (MOMETASONE/FORMOTEROL) INHALER IH SCH ×2 (09:00→21:00)
[2021-04-08] MEDS: acetaZOLAMIDE 250 MG TAB PO SCH ×2 (09:00→21:10)
[2021-04-08] MEDS: IVERMECTIN 3 MG TABLET PO SCH (09:02)
[2021-04-08] MEDS: TRAMADOL HCL 50 MG TAB PO PRN ×2 (10:48→19:40)
[2021-04-08] MEDS: clonazePAM 0.5 MG TAB PO PRN ×2 (12:57→21:11)
--- NOTE | 2021-04-08 13:30 | P.PN ---
Subjective Date of Service: 04/08/21 Primary Care Provider: Dr. Howard Chief Complaint: Respiratory failure Patient has no new complain. No major changes from yesterday. Physical Examination - Vital Signs Temperature: 97.9 F Blood Pressure: 121/74 Pulse: 88 Respirations: 27 Pulse Ox (%): 91 - Physical Exam General: In no apparent distress, Oriented x3 HEENT: Other (BiPAP) Neck: JVD not distended Respiratory: Other (Nonlabored brain) Cardiovascular: No edema, Regular rate/rhythm Gastrointestinal: Soft and benign, Non-distended Neurological: Normal strength at 5/5 x4 extr Assessment And Plan Physician Review Additional Text: Problem List Acute on chronic hypoxic hypercapnic respiratory failure secondary to end-stage COPD on home oxygen/NIV/chronic steroid therapy complicated with left upper lobe pneumonia and COVID+ SANDRITA pneumonia COVID-19+ pneumonia Hypothyroidism Hypertension Anxiety GERD -Completed antibiotics for pneumonia. -continue treatment for COVID per protocol, steroids, vitamin supplementation, DVT prophylaxis, not candidate for baricitinib -continue BiPAP qHS, HFNC, wean FiO2 as tolerated. -baseline end-stage COPD with severe respiratory failure on home NIV and oxygen -DNI per patient. -completed Remdesivir. -target FiO2 for discharge is 28 to 30% VTE: lovenox Code: full Dispo: Home with home health.
--- NOTE | 2021-04-08 19:05 | P.PN ---
Subjective Date of Service: 04/08/21 Primary Care Provider: Dr. Howard Chief Complaint: Respiratory failure Nc Still requirng high concentration of Fio2 Review of Systems Respiratory: Shortness of Breath Physical Examination - Vital Signs Temperature: 98.5 F Blood Pressure: 108/64 Pulse: 81 Respirations: 22 Pulse Ox (%): 92 Assessment & Plan - Problems (Diagnosis) (1) COVID Current Visit: Yes Status: Acute Plan: REsp failure add Barcitinib/ Nto improving/ labs reviewed/ increase aspirin/ CXRY sig ILD/ sull anticoagulation/
[2021-04-08] MEDS: APIXABAN 2.5 MG TABLET PO SCH (21:10)
[2021-04-08] MEDS: ROPINIROLE HCL 1 MG TAB PO SCH (21:10)
[2021-04-08] MEDS: METHYLPREDNISOLONE 125 MG INJ IV SCH (21:11)
[2021-04-09] MEDS: IPRATROPIUM BROM 0.5MG/2.5ML NEB SCH ×4 (02:00→20:25)
[2021-04-09 04:52] LABS: Absolute Lymphocytes (CBC) 0.2 K/uL (0.7-4.9); Basophils % 0.1 % (0-1.3); Hematocrit 28.7 % (36.0-45.0); Lymphocytes % 3.4 % (15.3-44.8); MPV 7.2 fL (7.6-11.3); RBC Red Blood Cell Count 3.38 M/uL (3.86-4.86)
[2021-04-09 05:07] LABS: BUN Blood Urea Nitrogen 25 mg/dL (7-18); Glucose Level 171 mg/dL (74-106); Sodium Level 138 mmol/L (136-145)
[2021-04-09 05:17] LABS: Blood Morphology Comment NOT SEEN (NOT SEEN); Platelet Estimate ADEQ
[2021-04-09 05:18] LABS: Bicarbonate 41 mmol/L (21-32)
--- NOTE | 2021-04-09 07:31 | RAD REPORT ---
EXAM DESCRIPTION: RAD - Chest Single View - 04/09/2021 6:05 am CLINICAL HISTORY: resp failure COMPARISON: Chest Single View dated 04/08/2021; Chest Single View dated 04/07/2021; Chest Single View dated 04/02/2021; Chest Single View dated 03/30/2021; Abdomen Pelvis W Contrast dated 03/15/2021 FINDINGS: Diffuse prominence of the pulmonary interstitium with slight decreased lung volumes. Cardi omegalyNo acute osseous abnormality. Effusions bilaterally which are unchanged. IMPRESSION: Interstitial edema which is similar to yesterday's radiograph.
[2021-04-09] MEDS: ALBUTEROL 2.5 MG/3 ML NEB SOL NEB PRN (08:15)
[2021-04-09] MEDS: METHYLPREDNISOLONE 125 MG INJ IV SCH ×2 (08:41→20:31)
[2021-04-09] MEDS: ZINC SULFATE 220 MG CAP PO SCH (08:42)
[2021-04-09] MEDS: ASCORBIC ACID 500 MG TABLET PO SCH ×4 (08:42→20:31)
[2021-04-09] MEDS: acetaZOLAMIDE 250 MG TAB PO SCH ×2 (08:42→20:31)
[2021-04-09] MEDS: ASPIRIN EC 81 MG TAB PO SCH (08:43)
[2021-04-09] MEDS: ROFLUMILAST 500 MCG TABLET PO SCH (08:43)
[2021-04-09] MEDS: APIXABAN 2.5 MG TABLET PO SCH ×2 (08:43→20:31)
[2021-04-09] MEDS: DULERA 200/5 (MOMETASONE/FORMOTEROL) INHALER IH SCH ×2 (08:43→20:32)
[2021-04-09] MEDS: VITAMIN D 1000 UNIT TAB PO SCH (08:43)
[2021-04-09] MEDS: THIAMINE HCL 100 MG TABLET PO SCH (08:43)
[2021-04-09 08:53] LABS: ALT/SGPT 26 U/L (12-78); AST/SGOT 9 U/L (15-37); Albumin 2.4 g/dL (3.4-5.0); Alkaline Phosphatase 44 U/L (45-117); Bilirubin Direct 0.1 mg/dL (0-0.2); Bilirubin Total 0.3 mg/dL (0.2-1.0); Protein, Total 5.4 g/dL (6.4-8.2)
[2021-04-09 08:54] LABS: C-Reactive Protein < 2.90 mg/L (<3.00)
--- NOTE | 2021-04-09 13:11 | P.PN ---
Subjective Date of Service: 04/09/21 Primary Care Provider: Dr. Howard Chief Complaint: Respiratory failure Patient has no new complain. Patient seen on 100% FiO2. She is complaining of sore throat. Physical Examination - Vital Signs Temperature: 98.5 F Blood Pressure: 134/74 Pulse: 80 Respirations: 18 Pulse Ox (%): 98 - Physical Exam General: In no apparent distress, Oriented x3 HEENT: Mucous membr. moist/pink Neck: JVD not distended Respiratory: Other (Pursed lip breathing.) Cardiovascular: Regular rate/rhythm, Normal S1 S2 Gastrointestinal: Soft and benign, Non-distended Integumentary: No rashes Neurological: Normal strength at 5/5 x4 extr Assessment And Plan Physician Review Additional Text: Problem List Acute on chronic hypoxic hypercapnic respiratory failure secondary to end-stage COPD on home oxygen/NIV/chronic steroid therapy complicated with left upper lobe pneumonia and COVID+ SANDRITA pneumonia COVID-19+ pneumonia Hypothyroidism Hypertension Anxiety GERD -Completed antibiotics for pneumonia. -continue treatment for COVID per protocol, steroids, vitamin supplementation, DVT prophylaxis, not candidate for baricitinib -continue BiPAP qHS, HFNC, wean FiO2 as tolerated. -baseline end-stage COPD with severe respiratory failure on home NIV and oxygen -DNI per patient. -completed Remdesivir. -target FiO2 for discharge is 28 to 30% -wean oxygen to keep SaO2 between 88-90% -Cepacol for sore throat. VTE: lovenox Code: full Dispo: Home with home health.
[2021-04-09] MEDS ORDERED: CETIRIZINE HCL 5 MG TABLET PO PRN (13:12)
[2021-04-09] MEDS: TRAMADOL HCL 50 MG TAB PO PRN (14:53)
[2021-04-09] MEDS: CEPACOL LOZENGES PO PRN (14:54)
[2021-04-09] MEDS: ROPINIROLE HCL 1 MG TAB PO SCH (20:32)
[2021-04-09] MEDS: clonazePAM 0.5 MG TAB PO PRN (20:35)
[2021-04-10] MEDS: BENZONATATE 100 MG CAP PO PRN ×2 (03:49→10:51)
[2021-04-10] MEDS: clonazePAM 0.5 MG TAB PO PRN ×2 (03:51→20:16)
[2021-04-10 05:23] LABS: Magnesium 2.2 mg/dL (1.8-2.4); Potassium 4.7 mmol/L (3.5-5.1)
[2021-04-10 06:32] LABS: Absolute Lymphocytes (CBC) 0.2 K/uL (0.7-4.9); Basophils % 0.6 % (0-1.3); Hematocrit 27.9 % (36.0-45.0); Lymphocytes % 3.9 % (15.3-44.8); MPV 6.7 fL (7.6-11.3); RBC Red Blood Cell Count 3.28 M/uL (3.86-4.86)
[2021-04-10 06:54] LABS: ALT/SGPT 22 U/L (12-78); AST/SGOT 9 U/L (15-37); Albumin 2.2 g/dL (3.4-5.0); Alkaline Phosphatase 40 U/L (45-117); BUN Blood Urea Nitrogen 30 mg/dL (7-18); Bicarbonate 41 mmol/L (21-32); Bilirubin Total 0.3 mg/dL (0.2-1.0); Glucose Level 169 mg/dL (74-106); Potassium 4.8 mmol/L (3.5-5.1); Sodium Level 140 mmol/L (136-145)
--- NOTE | 2021-04-10 07:10 | P.PN ---
Subjective Date of Service: 04/10/21 Primary Care Provider: Dr. Howard Chief Complaint: Respiratory failure Subjective: No new changes (pt reports feeling ok, no signficant changes. slight edematous. on BIPAP overnight. RN reports weight check overnight shows >20lb weight gain since admission, unsure if initial was accurate) Review of Systems 10-point ROS is otherwise unremarkable Physical Examination - Vital Signs Temperature: 97.1 F Blood Pressure: 107/69 Pulse: 59 Respirations: 22 Pulse Ox (%): 93 Assessment & Plan Physician Review Additional Text: Physical Exam General: In no apparent distress, Oriented x3 HEENT: BPIAP mask in place, conjunctiva normal, sclera anicteric Respiratory: nonlabored on bIPAP Cardiovascular: Regular rate/rhythm, Normal S1 S2, 1+ edema b/l to knees Gastrointestinal: Soft, nontender, nondistended Integumentary: No rashes Problem List Acute on chronic hypoxic hypercapnic respiratory failure secondary to end-stage COPD on home oxygen/NIV/chronic steroid therapy complicated with left upper lobe pneumonia and COVID+ SANDRITA pneumonia COVID-19+ pneumonia Hypothyroidism Hypertension Anxiety GERD -Completed antibiotics for bacterial pneumonia. -continue treatment for COVID per protocol, steroids, vitamin supplementation, DVT prophylaxis, not candidate for baricitinib -completed Remdesivir. -pulm following -continue BiPAP qHS, HFNC, wean FiO2 as tolerated. -baseline end-stage COPD with severe respiratory failure on home NIV and oxygen -DNI per patient. -target FiO2 for discharge is 28 to 30% -wean oxygen to keep SaO2 between 88-90% -Cepacol for sore throat. -monitor Hgb -continue diamox VTE: lovenox Code: DNI Dispo: Home with home health. no benefits for LTAC/SNF Time Spent Managing Pts Care (In Minutes): 40
--- NOTE | 2021-04-10 08:24 | P.PN ---
Subjective Date of Service: 04/10/21 Primary Care Provider: Dr. Howard Chief Complaint: Respiratory failure NC stable Review of Systems Respiratory: Shortness of Breath Physical Examination - Vital Signs Temperature: 97.1 F Blood Pressure: 107/69 Pulse: 59 Respirations: 22 Pulse Ox (%): 93 Assessment & Plan - Problems (Diagnosis) (1) COVID Current Visit: Yes Status: Acute Plan: Resp failure NC/ wean done on O2/reduce dose of solumederol/ wean down on O2
[2021-04-10 09:00] LABS: Blood Morphology Comment NOT SEEN (NOT SEEN); Platelet Estimate ADEQ
[2021-04-10] MEDS: DULERA 200/5 (MOMETASONE/FORMOTEROL) INHALER IH SCH ×2 (09:00→20:16)
[2021-04-10] MEDS: METHYLPREDNISOLONE 40 MG INJ IV SCH ×2 (09:00→20:16)
[2021-04-10] MEDS: ROFLUMILAST 500 MCG TABLET PO SCH (09:09)
[2021-04-10] MEDS: acetaZOLAMIDE 250 MG TAB PO SCH ×2 (09:09→20:16)
[2021-04-10] MEDS: THIAMINE HCL 100 MG TABLET PO SCH (09:09)
[2021-04-10] MEDS: ASPIRIN EC 81 MG TAB PO SCH (09:09)
[2021-04-10] MEDS: ZINC SULFATE 220 MG CAP PO SCH (09:09)
[2021-04-10] MEDS: VITAMIN D 1000 UNIT TAB PO SCH (09:09)
[2021-04-10] MEDS: ASCORBIC ACID 500 MG TABLET PO SCH ×4 (09:09→20:16)
[2021-04-10] MEDS: APIXABAN 2.5 MG TABLET PO SCH (09:09)
[2021-04-10] MEDS: TRAMADOL HCL 50 MG TAB PO PRN ×2 (10:51→21:21)
[2021-04-10] MEDS: CEPACOL LOZENGES PO PRN (10:51)
[2021-04-10] MEDS: BARICITINIB 2 MG TABLET PO SCH (16:55)
[2021-04-10] MEDS: APIXABAN 5 MG TABLET PO SCH (20:16)
[2021-04-10] MEDS: ROPINIROLE HCL 1 MG TAB PO SCH (20:17)
[2021-04-11] MEDS ORDERED: TRAMADOL HCL 50 MG TAB PO ONE (01:30)
[2021-04-11] MEDS: ALBUTEROL 2.5 MG/3 ML NEB SOL NEB PRN (01:34)
[2021-04-11 05:23] LABS: BUN Blood Urea Nitrogen 29 mg/dL (7-18); Glucose Level 116 mg/dL (74-106); Magnesium 2.3 mg/dL (1.8-2.4); Potassium 4.6 mmol/L (3.5-5.1); Sodium Level 139 mmol/L (136-145)
[2021-04-11 05:59] LABS: Bicarbonate 43 mmol/L (21-32)
[2021-04-11 06:19] LABS: Hematocrit 29.4 % (36.0-45.0); MPV 6.8 fL (7.6-11.3); RBC Red Blood Cell Count 3.41 M/uL (3.86-4.86)
[2021-04-11] MEDS: ASCORBIC ACID 500 MG TABLET PO SCH ×4 (08:17→20:47)
[2021-04-11] MEDS: acetaZOLAMIDE 250 MG TAB PO SCH ×2 (08:17→20:46)
[2021-04-11] MEDS: ASPIRIN EC 81 MG TAB PO SCH (08:17)
[2021-04-11] MEDS: ROFLUMILAST 500 MCG TABLET PO SCH (08:17)
[2021-04-11] MEDS: VITAMIN D 1000 UNIT TAB PO SCH (08:17)
[2021-04-11] MEDS: ZINC SULFATE 220 MG CAP PO SCH (08:17)
[2021-04-11] MEDS: THIAMINE HCL 100 MG TABLET PO SCH (08:17)
[2021-04-11] MEDS: APIXABAN 5 MG TABLET PO SCH ×2 (08:18→20:47)
[2021-04-11] MEDS: METHYLPREDNISOLONE 40 MG INJ IV SCH ×2 (08:18→20:47)
[2021-04-11] MEDS: DULERA 200/5 (MOMETASONE/FORMOTEROL) INHALER IH SCH ×2 (08:18→20:48)
--- NOTE | 2021-04-11 10:38 | P.PN ---
Subjective Date of Service: 04/11/21 Primary Care Provider: Dr. Howard Chief Complaint: Respiratory failure Subjective: No new changes (patient reports feeling ok, no significant changes, on BIPAP, tolerates HFNC at times, unable to tolerate 6L NC yesterday FiO2 weaning down. Edema maybe slightly better) Review of Systems 10-point ROS is otherwise unremarkable Physical Examination - Vital Signs Temperature: 97.1 F Blood Pressure: 144/84 Pulse: 82 Respirations: 22 Pulse Ox (%): 92 Assessment & Plan Physician Review Additional Text: Physical Exam General: In no apparent distress, Oriented x3 HEENT: BIPAP mask in place, conjunctiva normal, sclera anicteric Respiratory: nonlabored on BIPAP, poor air movement, diminished at bases bilaterally Cardiovascular: Regular rate/rhythm, Normal S1 S2, 1+ edema b/l to knees Gastrointestinal: Soft, nontender, nondistended Integumentary: No rashes Problem List Acute on chronic hypoxic hypercapnic respiratory failure secondary to end-stage COPD on home oxygen/NIV/chronic steroid therapy complicated with left upper lobe pneumonia and COVID+ SANDRITA pneumonia COVID-19+ pneumonia Hypothyroidism Hypertension Anxiety GERD -Completed antibiotics for bacterial pneumonia. -continue treatment for COVID per protocol, steroids, vitamin supplementation, DVT prophylaxis, not candidate for baricitinib, completed Remdesivir. -pulm following -continue BiPAP qHS, HFNC, wean FiO2 as tolerated. -baseline end-stage COPD with severe respiratory failure on home NIV and oxygen -DNI per patient. -target FiO2 for discharge is 28 to 30%; wean oxygen to keep SaO2 between 88- 90% -Cepacol for sore throat. -monitor Hgb - stable -continue diamox VTE: Eliquis Code: DNI Dispo: Home with home health. prolonged hospitalization due to COVID and end stage COPD no benefits for LTAC/SNF Time Spent Managing Pts Care (In Minutes): 35
--- NOTE | 2021-04-11 11:41 | P.PN ---
Subjective Date of Service: 04/11/21 (TV) Primary Care Provider: Dr. Howard Chief Complaint: Respiratory failure Subjective: Improving Imrpoving feeling better Review of Systems Respiratory: Shortness of Breath Physical Examination - Vital Signs Temperature: 97.1 F Blood Pressure: 144/84 Pulse: 82 Respirations: 22 Pulse Ox (%): 92 Assessment & Plan - Problems (Diagnosis) (1) COVID Current Visit: Yes Status: Acute Plan: Resp failure on Barcitinib now. ImprovingNC in meds/ on 85% Fio2
[2021-04-11] MEDS: clonazePAM 0.5 MG TAB PO PRN ×2 (12:59→20:46)
[2021-04-11] MEDS: TRAMADOL HCL 50 MG TAB PO PRN (15:22)
[2021-04-11] MEDS: BARICITINIB 2 MG TABLET PO SCH (16:49)
[2021-04-11] MEDS: DOCUSATE NA 100 MG CAP PO SCH (20:46)
[2021-04-11] MEDS: ROPINIROLE HCL 1 MG TAB PO SCH (20:47)
[2021-04-12] MEDS: clonazePAM 0.5 MG TAB PO PRN ×3 (04:10→22:35)
[2021-04-12] MEDS: ASPIRIN EC 81 MG TAB PO SCH (08:43)
[2021-04-12] MEDS: VITAMIN D 1000 UNIT TAB PO SCH (08:43)
[2021-04-12] MEDS: DOCUSATE NA 100 MG CAP PO SCH ×2 (08:43→20:21)
[2021-04-12] MEDS: APIXABAN 5 MG TABLET PO SCH ×2 (08:44→20:21)
[2021-04-12] MEDS: METHYLPREDNISOLONE 40 MG INJ IV SCH ×2 (08:44→20:21)
[2021-04-12] MEDS: acetaZOLAMIDE 250 MG TAB PO SCH ×2 (08:44→20:21)
[2021-04-12] MEDS: ROFLUMILAST 500 MCG TABLET PO SCH (08:44)
[2021-04-12] MEDS: DULERA 200/5 (MOMETASONE/FORMOTEROL) INHALER IH SCH ×2 (08:44→20:22)
[2021-04-12] MEDS: ZINC SULFATE 220 MG CAP PO SCH (08:44)
[2021-04-12] MEDS: ASCORBIC ACID 500 MG TABLET PO SCH ×4 (08:44→20:21)
[2021-04-12] MEDS: THIAMINE HCL 100 MG TABLET PO SCH (08:48)
[2021-04-12] MEDS: TRAMADOL HCL 50 MG TAB PO PRN ×2 (12:32→20:22)
[2021-04-12] MEDS: CEPACOL LOZENGES PO PRN (13:08)
--- NOTE | 2021-04-12 13:22 | P.PN ---
Subjective Date of Service: 04/12/21 Primary Care Provider: Dr. Howard Chief Complaint: Respiratory failure Subjective: Improving (slowly, FIO2 requirement decreasing) Review of Systems 10-point ROS is otherwise unremarkable Physical Examination - Vital Signs Temperature: 97.6 F Blood Pressure: 146/75 Pulse: 94 Respirations: 26 Pulse Ox (%): 94 Assessment & Plan Physician Review Additional Text: Physical Exam General: In no apparent distress, Oriented x3 HEENT: BIPAP mask in place, conjunctiva normal, sclera anicteric Respiratory: nonlabored on BIPAP, poor air movement, diminished at bases bilaterally Cardiovascular: Regular rate/rhythm, Normal S1 S2, 1+ edema b/l to knees Gastrointestinal: Soft, nontender, nondistended Integumentary: No rashes Problem List Acute on chronic hypoxic hypercapnic respiratory failure secondary to end-stage COPD on home oxygen/NIV/chronic steroid therapy complicated with left upper lobe pneumonia and COVID+ SANDRTIA pneumonia COVID-19+ pneumonia Hypothyroidism Hypertension Anxiety GERD -Completed antibiotics for bacterial pneumonia. -continue treatment for COVID per protocol, steroids, vitamin supplementation, DVT prophylaxis, not candidate for baricitinib initially, but now receiving, completed Remdesivir. -pulm following -continue BiPAP qHS, HFNC, wean FiO2 as tolerated. -baseline end-stage COPD with severe respiratory failure on home NIV and oxygen -target FiO2 for discharge is 28 to 30%; wean oxygen to keep SaO2 between 88- 90% -Cepacol for sore throat. -monitor Hgb - stable -continue diamox -DNI per patient. VTE: Eliquis Code: DNI Dispo: Home with home health in >2 days. prolonged hospitalization due to COVID and end stage COPD no benefits for LTAC/SNF Time Spent Managing Pts Care (In Minutes): 35
[2021-04-12] MEDS: BARICITINIB 2 MG TABLET PO SCH (16:17)
[2021-04-12] MEDS: ROPINIROLE HCL 1 MG TAB PO SCH (20:21)
[2021-04-12] MEDS: ALBUTEROL 2.5 MG/3 ML NEB SOL NEB PRN (20:31)
[2021-04-12] MEDS: BENZONATATE 100 MG CAP PO PRN (20:34)
[2021-04-13 05:31] LABS: Absolute Lymphocytes (CBC) 0.3 K/uL (0.7-4.9); Hematocrit 27.5 % (36.0-45.0); Lymphocytes % 6.4 % (15.3-44.8); MPV 6.9 fL (7.6-11.3); RBC Red Blood Cell Count 3.21 M/uL (3.86-4.86)
[2021-04-13 05:43] LABS: BUN Blood Urea Nitrogen 25 mg/dL (7-18); Glucose Level 112 mg/dL (74-106); Magnesium 2.3 mg/dL (1.8-2.4); Potassium 4.5 mmol/L (3.5-5.1); Sodium Level 142 mmol/L (136-145)
[2021-04-13 05:44] LABS: Bicarbonate 44 mmol/L (21-32)
--- NOTE | 2021-04-13 07:19 | P.PN ---
Subjective Date of Service: 04/13/21 Primary Care Provider: Dr. Howard Chief Complaint: Respiratory failure Subjective: Improving (breathing more comfortably, 50% fio2. swelling improved.) Review of Systems 10-point ROS is otherwise unremarkable Physical Examination - Vital Signs Temperature: 97.5 F Blood Pressure: 165/96 Pulse: 83 Respirations: 16 Pulse Ox (%): 98 Assessment & Plan Physician Review Additional Text: Physical Exam General: In no apparent distress, Oriented x3 HEENT: BIPAP mask in place, conjunctiva normal, sclera anicteric Respiratory: nonlabored on BIPAP, poor air movement, diminished at bases bilaterally, 50% FIO2 Cardiovascular: Regular rate/rhythm, Normal S1 S2, 1+ edema b/l to knees Gastrointestinal: Soft, nontender, nondistended Integumentary: No rashes Problem List Acute on chronic hypoxic hypercapnic respiratory failure secondary to end-stage COPD on home oxygen/NIV/chronic steroid therapy complicated with left upper lobe pneumonia and COVID+ SANDRITA pneumonia COVID-19+ pneumonia Hypothyroidism Hypertension Anxiety anemia of chronic disease GERD -Completed antibiotics for bacterial pneumonia. -continue treatment for COVID per protocol, steroids, vitamin supplementation, DVT prophylaxis, not candidate for baricitinib initially, but now receiving, completed Remdesivir. -pulm following -continue BiPAP qHS, HFNC, wean FiO2 as tolerated. -baseline end-stage COPD with severe respiratory failure on home NIV and oxygen -target FiO2 for discharge is 28 to 30%; wean oxygen to keep SaO2 between 88- 90% -monitor Hgb, no evidence of awilda bleeding -continue diamox per pulm -DNI per patient. VTE: Eliquis Code: DNI Dispo: Home with home health in >2 days. prolonged hospitalization due to COVID and end stage COPD no benefits for LTAC/SNF Time Spent Managing Pts Care (In Minutes): 35
[2021-04-13] MEDS: METHYLPREDNISOLONE 40 MG INJ IV SCH ×2 (07:33→20:06)
[2021-04-13] MEDS: ZINC SULFATE 220 MG CAP PO SCH (07:34)
[2021-04-13] MEDS: acetaZOLAMIDE 250 MG TAB PO SCH ×2 (07:34→20:07)
[2021-04-13] MEDS: THIAMINE HCL 100 MG TABLET PO SCH (07:34)
[2021-04-13] MEDS: ASPIRIN EC 81 MG TAB PO SCH (07:34)
[2021-04-13] MEDS: VITAMIN D 1000 UNIT TAB PO SCH (07:34)
[2021-04-13] MEDS: DOCUSATE NA 100 MG CAP PO SCH ×2 (07:34→20:07)
[2021-04-13] MEDS: APIXABAN 5 MG TABLET PO SCH ×2 (07:34→20:07)
[2021-04-13] MEDS: ROFLUMILAST 500 MCG TABLET PO SCH (07:35)
[2021-04-13] MEDS: ASCORBIC ACID 500 MG TABLET PO SCH ×4 (07:35→20:07)
[2021-04-13] MEDS: DULERA 200/5 (MOMETASONE/FORMOTEROL) INHALER IH SCH ×2 (07:35→20:08)
[2021-04-13 08:22] LABS: Anisocytosis 1+; Basophilic Stippling 1+; Blood Morphology Comment NOTED (NOT SEEN); Platelet Estimate ADEQ
[2021-04-13] MEDS: TRAMADOL HCL 50 MG TAB PO PRN (09:10)
--- NOTE | 2021-04-13 09:43 | P.PN ---
Subjective Date of Service: 04/13/21 Primary Care Provider: Dr. Howard Chief Complaint: Respiratory failure Subjective: Improving NC Doign well Review of Systems Respiratory: Shortness of Breath Physical Examination - Vital Signs Temperature: 97.5 F Blood Pressure: 165/96 Pulse: 83 Respirations: 16 Pulse Ox (%): 98 Assessment & Plan - Problems (Diagnosis) (1) COVID Current Visit: Yes Status: Acute Plan: Doing better CW present therapy, Maint. sat 85-90%, Try nasal canula/ BP elevated
--- NOTE | 2021-04-13 10:10 | RAD REPORT ---
EXAM DESCRIPTION: RAD - Chest Single View - 04/13/2021 10:04 am CLINICAL HISTORY: COVIDpneumonia COMPARISON: April 09 TECHNIQUE: AP portable chest image was obtained 04/13/2021 10:04 am . FINDINGS: Lung volumes remain low. Interstitial and alveolar opacities are present in both lung fiel ds. There may be slight clearing of the upper lung bacon. Lower lung bacon are not substantially di fferent. Prominent cardiac silhouette is stable. No pneumothorax seen. Bilateral costophrenic angle b lunting is present but may be artifact of portable technique and overlying soft tissues rather than p leural effusion. No acute bony abnormality seen. No acute aortic findings suspected. IMPRESSION: Bilateral COVID-19 pneumonia pattern showing slight improvement in the upper lung bacon .
[2021-04-13] MEDS: BARICITINIB 2 MG TABLET PO SCH (16:50)
[2021-04-13] MEDS: ROPINIROLE HCL 1 MG TAB PO SCH (20:07)
[2021-04-13] MEDS: clonazePAM 0.5 MG TAB PO PRN (20:08)
[2021-04-13] MEDS: CEPACOL LOZENGES PO PRN (23:47)
[2021-04-14] MEDS: TRAMADOL HCL 50 MG TAB PO PRN ×3 (07:00→23:45)
[2021-04-14] MEDS: VITAMIN D 1000 UNIT TAB PO SCH (07:56)
[2021-04-14] MEDS: METHYLPREDNISOLONE 40 MG INJ IV SCH (07:56)
[2021-04-14] MEDS: ROFLUMILAST 500 MCG TABLET PO SCH (07:57)
[2021-04-14] MEDS: acetaZOLAMIDE 250 MG TAB PO SCH ×2 (07:57→20:29)
[2021-04-14] MEDS: APIXABAN 5 MG TABLET PO SCH ×2 (07:57→20:29)
[2021-04-14] MEDS: ASPIRIN EC 81 MG TAB PO SCH (07:57)
[2021-04-14] MEDS: ZINC SULFATE 220 MG CAP PO SCH (07:58)
[2021-04-14] MEDS: ASCORBIC ACID 500 MG TABLET PO SCH ×4 (07:58→20:29)
[2021-04-14] MEDS: DOCUSATE NA 100 MG CAP PO SCH ×2 (07:58→20:29)
[2021-04-14] MEDS: THIAMINE HCL 100 MG TABLET PO SCH (07:58)
[2021-04-14] MEDS: DULERA 200/5 (MOMETASONE/FORMOTEROL) INHALER IH SCH ×2 (07:59→20:30)
--- NOTE | 2021-04-14 09:52 | P.PN ---
Subjective Date of Service: 04/14/21 Primary Care Provider: Dr. Howard Chief Complaint: Respiratory failure Subjective: Other (nursing reports pt with "rough night" had some shortness of breath, FIO2 increased. feeling better this morning, tolerating HFNC, oxygen requirment improving slowly, sore throat, swelling improving) Review of Systems 10-point ROS is otherwise unremarkable Physical Examination - Vital Signs Temperature: 97.7 F Blood Pressure: 115/68 Pulse: 79 Respirations: 19 Pulse Ox (%): 99 Assessment & Plan Physician Review Additional Text: Physical Exam General: In no apparent distress, Oriented x3 HEENT: conjunctiva normal, sclera anicteric Respiratory: poor air movement, nonlabored on 15L HFNC Cardiovascular: Regular rate/rhythm, Normal S1 S2, trace-1+ edema b/l to knees Gastrointestinal: Soft, nontender, nondistended Integumentary: No rashes Problem List Acute on chronic hypoxic hypercapnic respiratory failure secondary to end-stage COPD on home oxygen/NIV/chronic steroid therapy complicated with left upper lobe pneumonia and COVID+ SANDRITA pneumonia COVID-19+ pneumonia Hypothyroidism Hypertension Anxiety anemia of chronic disease GERD -Completed antibiotics for bacterial pneumonia. -continue treatment for COVID per protocol, steroids, vitamin supplementation, DVT prophylaxis, not candidate for baricitinib initially, but now receiving, completed Remdesivir. -pulm following -wean steroids -continue BiPAP qHS, HFNC, wean FiO2 as tolerated. tolerating short periods of 6L NC -baseline end-stage COPD with severe respiratory failure on home NIV and oxygen -target FiO2 for discharge is 28 to 30%; wean oxygen to keep SaO2 between 88- 90% -monitor Hgb, no evidence of awilda bleeding -continue diamox per pulm -DNI per patient. VTE: Eliquis Code: DNI Dispo: Home with home health in >2 days. prolonged hospitalization due to COVID and end stage COPD no benefits for LTAC/SNF Time Spent Managing Pts Care (In Minutes): 35
--- NOTE | 2021-04-14 10:18 | P.PN ---
Subjective Date of Service: 04/14/21 (TV) Primary Care Provider: Dr. Howard Chief Complaint: Respiratory failure Improving now onNC O2/ Review of Systems Respiratory: Shortness of Breath Physical Examination - Vital Signs Temperature: 97.7 F Blood Pressure: 115/68 Pulse: 79 Respirations: 19 Pulse Ox (%): 99 Assessment & Plan - Problems (Diagnosis) (1) COVID Current Visit: Yes Status: Acute Plan: Much better On 6l NC/ plan for Discharge 1-2 days, Titrate sat to 88-90%/ Po pred
--- NOTE | 2021-04-14 10:44 | RAD REPORT ---
EXAM DESCRIPTION: Nel Single View04/14/2021 6:55 am CLINICAL HISTORY: Chest pain COMPARISON: April 13, 2021 FINDINGS: No significant change in the diffuse bilateral pulmonary opacities with cardiomegaly. The re may be small pleural effusions IMPRESSION: No change the diffuse bilateral pulmonary opacities which may represent pulmonary edema or pneumonia
[2021-04-14] MEDS: clonazePAM 0.5 MG TAB PO PRN ×2 (13:58→23:45)
[2021-04-14] MEDS: BARICITINIB 2 MG TABLET PO SCH (16:50)
[2021-04-14] MEDS: predniSONE 20 MG TAB PO SCH (20:29)
[2021-04-14] MEDS: ROPINIROLE HCL 1 MG TAB PO SCH (20:30)
[2021-04-15] MEDS ORDERED: predniSONE 10 MG TAB ONE (08:03)
--- NOTE | 2021-04-15 08:16 | P.PN ---
Subjective Date of Service: 04/15/21 Primary Care Provider: Dr. Howard Chief Complaint: Respiratory failure Subjective: No new changes (Slowly improving, tolerated 6 L intermittently yesterday, otherwise on BiPAP, reports good appetite, urinating and stooling without issue) Review of Systems 10-point ROS is otherwise unremarkable Physical Examination - Vital Signs Temperature: 97.0 F Blood Pressure: 104/62 Pulse: 71 Respirations: 24 Pulse Ox (%): 98 Assessment & Plan Physician Review Additional Text: Physical Exam General: In no apparent distress, Oriented x3 HEENT: conjunctiva normal, sclera anicteric Respiratory: poor air movement, nonlabored on BIPAP Cardiovascular: Regular rate/rhythm, Normal S1 S2, trace RLE, 1+ LLE pedal edema, trace above ankle Gastrointestinal: Soft, nontender, nondistended Integumentary: No rashes Problem List Acute on chronic hypoxic hypercapnic respiratory failure secondary to 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 -improved/resolving from COVID pneumonia as well, transitioned to PO steroids 04/14, continue vitamin supplementation -s/p remdesevir, now on baricitinib - initially was not candidate -pulm following -continue BiPAP qHS, HFNC, wean FiO2 as tolerated. tolerating short periods of 6L NC -baseline end-stage COPD with severe respiratory failure on home NIV and oxygen -target FiO2 for discharge is 28 to 30%; wean oxygen to keep SaO2 between 88- 90% -monitor Hgb, no evidence of awilda bleeding, anemia of chronic disease and likely from infection -continue diamox per pulm -DNI per patient. VTE: Eliquis Code: DNI Dispo: likely home with home health in the next few days. prolonged hospitalization due to COVID and end stage COPD no benefits for LTAC/SNF Time Spent Managing Pts Care (In Minutes): 35
[2021-04-15] MEDS: APIXABAN 5 MG TABLET PO SCH ×2 (08:58→20:35)
[2021-04-15] MEDS: ROFLUMILAST 500 MCG TABLET PO SCH (08:58)
[2021-04-15] MEDS: THIAMINE HCL 100 MG TABLET PO SCH (08:58)
[2021-04-15] MEDS: VITAMIN D 1000 UNIT TAB PO SCH (08:58)
[2021-04-15] MEDS: ZINC SULFATE 220 MG CAP PO SCH (08:58)
[2021-04-15] MEDS: DOCUSATE NA 100 MG CAP PO SCH ×2 (08:58→20:35)
[2021-04-15] MEDS: predniSONE 20 MG TAB PO SCH ×2 (08:58→20:35)
[2021-04-15] MEDS: ASPIRIN EC 81 MG TAB PO SCH (08:58)
[2021-04-15] MEDS: acetaZOLAMIDE 250 MG TAB PO SCH ×2 (08:58→20:36)
[2021-04-15] MEDS: ASCORBIC ACID 500 MG TABLET PO SCH ×4 (08:59→20:35)
[2021-04-15] MEDS: DULERA 200/5 (MOMETASONE/FORMOTEROL) INHALER IH SCH ×2 (08:59→20:36)
[2021-04-15] MEDS: clonazePAM 0.5 MG TAB PO PRN ×2 (09:53→17:58)
[2021-04-15] MEDS: TRAMADOL HCL 50 MG TAB PO PRN ×2 (09:53→17:58)
--- NOTE | 2021-04-15 14:59 | P.PN ---
Subjective Date of Service: 04/15/21 (TV) Primary Care Provider: Dr. Howard Chief Complaint: Respiratory failure Improving/ on NCAN O2 4-6 l/min.no new complaints Physical Examination - Vital Signs Temperature: 98.1 F Blood Pressure: 131/80 Pulse: 82 Respirations: 23 Pulse Ox (%): 95 Assessment & Plan - Problems (Diagnosis) (1) COVID Current Visit: Yes Status: Acute Plan: Much better. NC in [place] plan for discharge/ meds and labs rev/ Titrate o2 sat 85- 90%
[2021-04-15] MEDS: BARICITINIB 2 MG TABLET PO SCH (17:56)
[2021-04-15] MEDS: ROPINIROLE HCL 1 MG TAB PO SCH (20:35)
[2021-04-16] MEDS: clonazePAM 0.5 MG TAB PO PRN ×2 (01:48→21:43)
[2021-04-16] MEDS: TRAMADOL HCL 50 MG TAB PO PRN ×3 (01:49→21:42)
[2021-04-16 06:23] LABS: Absolute Lymphocytes (CBC) 0.5 K/uL (0.7-4.9); Basophils % 0.2 % (0-1.3); Hematocrit 27.1 % (36.0-45.0); Lymphocytes % 14.2 % (15.3-44.8); MPV 7.3 fL (7.6-11.3); RBC Red Blood Cell Count 3.17 M/uL (3.86-4.86)
[2021-04-16 06:30] LABS: Potassium 4.2 mmol/L (3.5-5.1); Sodium Level 141 mmol/L (136-145)
[2021-04-16 06:59] LABS: ALT/SGPT 21 U/L (12-78); AST/SGOT 11 U/L (15-37); Albumin 2.7 g/dL (3.4-5.0); Alkaline Phosphatase 43 U/L (45-117); BUN Blood Urea Nitrogen 15 mg/dL (7-18); Bilirubin Total 0.5 mg/dL (0.2-1.0); Glucose Level 94 mg/dL (74-106); Magnesium 2.3 mg/dL (1.8-2.4); Protein, Total 5.1 g/dL (6.4-8.2)
[2021-04-16 07:06] LABS: Bicarbonate 45 mmol/L (21-32); C-Reactive Protein < 2.90 mg/L (<3.00)
[2021-04-16] MEDS: ROFLUMILAST 500 MCG TABLET PO SCH (07:50)
[2021-04-16] MEDS: APIXABAN 5 MG TABLET PO SCH ×2 (07:50→21:37)
[2021-04-16] MEDS: predniSONE 20 MG TAB PO SCH ×2 (07:50→21:37)
[2021-04-16] MEDS: THIAMINE HCL 100 MG TABLET PO SCH (07:50)
[2021-04-16] MEDS: acetaZOLAMIDE 250 MG TAB PO SCH ×2 (07:51→21:37)
[2021-04-16] MEDS: ASPIRIN EC 81 MG TAB PO SCH (07:51)
[2021-04-16] MEDS: VITAMIN D 1000 UNIT TAB PO SCH (07:51)
[2021-04-16] MEDS: DOCUSATE NA 100 MG CAP PO SCH ×2 (07:51→21:38)
[2021-04-16] MEDS: ZINC SULFATE 220 MG CAP PO SCH (07:51)
[2021-04-16] MEDS: DULERA 200/5 (MOMETASONE/FORMOTEROL) INHALER IH SCH ×2 (07:52→21:38)
[2021-04-16] MEDS: ASCORBIC ACID 500 MG TABLET PO SCH ×4 (07:53→21:37)
--- NOTE | 2021-04-16 11:41 | PN ---
Subjective: The patient with no significant new changes, no significant events overnight. She still feels well. She is tolerating 4 to 5 liters of nasal cannula, otherwise she is on her BiPAP. Repor ts minimal walking, only taking few steps and requiring BiPAP when she does this. Review of Systems: A 10-point review of systems is otherwise unremarkable. Objective: General: In no apparent distress, oriented x3. HEENT: Conjunctivae normal, sclerae anicteric. Respiratory: With poor air movement bilaterally at bases, but nonlabored on BiPAP. Cardiovascular: Regular rate and rhythm, no murmur. Trace right lower extremity edema, 1+ left lowe r extremity edema. Gastrointestinal: Soft, nontender, nondistended, obese. Neuro: Moves all extremities equally and bilaterally. Problem List: 1.Acute on chronic hypoxic hypercapnic respiratory failure secondary to end-stage chronic obstructiv e pulmonary disease, on home oxygen/NIV/chronic steroid therapy, complicated with left upper lobe pne umonia and COVID-19 pneumonia. 2.Left upper lobe pneumonia, resolved. 3.COVID-19 pneumonia. 4.Hypothyroidism. 5.Hypertension. 6.Anxiety. 7.Anemia of chronic disease. 8.Gastroesophageal reflux disease. 9.Debility. 10.- Completed antibiotics for bacterial pneumonia. 11.- Improved, resolving from COVID pneumonia. Continue p.o. steroids and vitamin supplementation. 12.- Status post remdesivir and on baricitinib. 13.- Pulmonary following. 14.- Continue BiPAP, nasal cannula as tolerated. 15.- Target FiO2 for discharge 28% to 30%, continue to wean oxygen, goal: 90% SpO2. 16.- Continue Diamox. 17.The patient is do not intubate per her wishes. 18.Continue Eliquis. Disposition: Home with home health, anticipate in the next several days. The patient will need assi stance at home, current roommate is suffering from COVID and she states will not be able to help her much at this time. DULCE/JENI Voice ID: [id number] Report ID: [id number]
[2021-04-16] MEDS: BARICITINIB 2 MG TABLET PO SCH (17:12)
[2021-04-16] MEDS: ROPINIROLE HCL 1 MG TAB PO SCH (21:38)
[2021-04-17] MEDS: ALBUTEROL 2.5 MG/3 ML NEB SOL NEB PRN (01:45)
[2021-04-17 04:50] LABS: Absolute Lymphocytes (CBC) 0.4 K/uL (0.7-4.9); Basophils % 0.1 % (0-1.3); Lymphocytes % 10.4 % (15.3-44.8); MPV 7.1 fL (7.6-11.3); RBC Red Blood Cell Count 3.03 M/uL (3.86-4.86)
[2021-04-17 05:29] LABS: BUN Blood Urea Nitrogen 13 mg/dL (7-18); Ferritin 83.2 ng/mL (8-388); Glucose Level 111 mg/dL (74-106); Potassium 4.2 mmol/L (3.5-5.1); Sodium Level 140 mmol/L (136-145)
[2021-04-17 05:33] LABS: Bicarbonate 41 mmol/L (21-32)
--- NOTE | 2021-04-17 07:05 | RAD REPORT ---
EXAM DESCRIPTION: RAD - Chest Single View - 04/17/2021 5:56 am CLINICAL HISTORY: hypoxia, covid COMPARISON: April 14 TECHNIQUE: AP portable chest image was obtained 04/17/2021 5:56 am . FINDINGS: Lung volumes remain low. Portable technique, large body habitus and overlying soft tissues all contribute to accentuated chest findings. Interstitial and alveolar opacities are still present similar or fractionally improved. Cardiomegaly remains. Central vasculature within range of normal an d probably improved slightly from comparison. No measurable pleural effusion and no pneumothorax. No acute bony abnormality seen. No acute aortic findings suspected. IMPRESSION: Bilateral interstitial and alveolar opacities showing similar or fractionally improved p attern compared to April 14.
[2021-04-17 07:10] LABS: Platelet Estimate DECR; White Blood Cell Scan OK (OK)
[2021-04-17 07:11] LABS: Blood Morphology Comment NOT SEEN (NOT SEEN)
[2021-04-17] MEDS: DULERA 200/5 (MOMETASONE/FORMOTEROL) INHALER IH SCH ×2 (09:00→20:17)
[2021-04-17] MEDS: NYSTATIN 500,000 UNIT/5 ML UDC PO SCH ×3 (09:28→20:16)
[2021-04-17] MEDS: ASCORBIC ACID 500 MG TABLET PO SCH ×4 (09:29→20:17)
[2021-04-17] MEDS: ZINC SULFATE 220 MG CAP PO SCH (09:29)
[2021-04-17] MEDS: ROFLUMILAST 500 MCG TABLET PO SCH (09:29)
[2021-04-17] MEDS: THIAMINE HCL 100 MG TABLET PO SCH (09:29)
[2021-04-17] MEDS: predniSONE 20 MG TAB PO SCH ×2 (09:29→20:17)
[2021-04-17] MEDS: TRAMADOL HCL 50 MG TAB PO PRN ×2 (09:29→17:14)
[2021-04-17] MEDS: acetaZOLAMIDE 250 MG TAB PO SCH ×2 (09:29→20:17)
[2021-04-17] MEDS: ASPIRIN EC 81 MG TAB PO SCH (09:30)
[2021-04-17] MEDS: DOCUSATE NA 100 MG CAP PO SCH ×2 (09:31→20:17)
[2021-04-17] MEDS: VITAMIN D 1000 UNIT TAB PO SCH (09:31)
[2021-04-17] MEDS: APIXABAN 5 MG TABLET PO SCH ×2 (09:31→20:17)
[2021-04-17] MEDS: clonazePAM 0.5 MG TAB PO PRN ×2 (11:50→20:17)
--- NOTE | 2021-04-17 16:27 | P.PN ---
Subjective Date of Service: 04/17/21 Primary Care Provider: Dr. Howard Chief Complaint: Respiratory failure Patient doing much better today. She is complaining of sore throat. She has been tolerating 4 L of oxygen by nasal canula. Physical Examination - Vital Signs Temperature: 97.5 F Blood Pressure: 131/93 Pulse: 81 Respirations: 27 Pulse Ox (%): 96 - Physical Exam General: Alert, In no apparent distress, Oriented x3 HEENT: Other (Oxygen by nasal cannula, white patches on tongue.) Neck: JVD not distended Respiratory: Other (Nonlabored breathing) Cardiovascular: Regular rate/rhythm, Normal S1 S2 Gastrointestinal: Soft and benign, Non-distended, No tenderness Musculoskeletal: No swelling Integumentary: No rashes Neurological: Normal speech, Normal strength at 5/5 x4 extr Assessment And Plan Physician Review Additional Text: Physical Exam General: In no apparent distress, Oriented x3 HEENT: conjunctiva normal, sclera anicteric Respiratory: poor air movement, nonlabored on BIPAP Cardiovascular: Regular rate/rhythm, Normal S1 S2, trace RLE, 1+ LLE pedal edema, trace above ankle Gastrointestinal: Soft, nontender, nondistended Integumentary: No rashes Problem List Acute on chronic hypoxic hypercapnic respiratory failure secondary to 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 -Completed antibiotics for bacterial pneumonia. -clinically improved and not tolerating 4 L oxygen by nasal cannula. Continue p.o. steroid. -s/p remdesevir, on baricitinib -pulm following -baseline end-stage COPD with severe respiratory failure on home NIV and oxygen -monitor Hgb, no evidence of awilda bleeding, anemia of chronic disease. -continue diamox per pulm -DNI per patient. -nystatin swish and swallow for oral candidiasis. -patient now tolerating 4 L/min by nasal cannula. -possible discharge with home health in a.m. VTE: Karenquis Code: DNI
[2021-04-17] MEDS: BARICITINIB 2 MG TABLET PO SCH (17:14)
[2021-04-17] MEDS: CEPACOL LOZENGES PO PRN (17:14)
[2021-04-17] MEDS: ROPINIROLE HCL 1 MG TAB PO SCH (20:16)
[2021-04-18] MEDS: TRAMADOL HCL 50 MG TAB PO PRN ×2 (00:10→11:24)
[2021-04-18] MEDS: CEPACOL LOZENGES PO PRN (03:54)
[2021-04-18] MEDS ORDERED: MORPHINE 2 MG/ML SYR IV ONE (03:57)
[2021-04-18 04:44] LABS: Absolute Lymphocytes (CBC) 0.5 K/uL (0.7-4.9); Basophils % 0.2 % (0-1.3); Hematocrit 26.1 % (36.0-45.0); Lymphocytes % 13.5 % (15.3-44.8); MPV 7.4 fL (7.6-11.3); RBC Red Blood Cell Count 3.05 M/uL (3.86-4.86)
[2021-04-18 05:01] LABS: BUN Blood Urea Nitrogen 11 mg/dL (7-18); Glucose Level 121 mg/dL (74-106); Potassium 4.1 mmol/L (3.5-5.1); Sodium Level 141 mmol/L (136-145)
[2021-04-18 05:02] LABS: Bicarbonate 41 mmol/L (21-32)
[2021-04-18] MEDS ORDERED: ALBUTEROL 2.5 MG/3 ML NEB SOL NEB PRN (07:23)
[2021-04-18] MEDS: ROFLUMILAST 500 MCG TABLET PO SCH (08:11)
[2021-04-18] MEDS: VITAMIN D 1000 UNIT TAB PO SCH (08:11)
[2021-04-18] MEDS: DOCUSATE NA 100 MG CAP PO SCH (08:11)
[2021-04-18] MEDS: acetaZOLAMIDE 250 MG TAB PO SCH (08:11)
[2021-04-18] MEDS: ASPIRIN EC 81 MG TAB PO SCH (08:11)
[2021-04-18] MEDS: predniSONE 20 MG TAB PO SCH (08:11)
[2021-04-18] MEDS: ZINC SULFATE 220 MG CAP PO SCH (08:12)
[2021-04-18] MEDS: ASCORBIC ACID 500 MG TABLET PO SCH ×2 (08:12→12:58)
[2021-04-18] MEDS: NYSTATIN 500,000 UNIT/5 ML UDC PO SCH ×2 (08:12→12:57)
[2021-04-18] MEDS: APIXABAN 5 MG TABLET PO SCH (08:12)
[2021-04-18] MEDS: THIAMINE HCL 100 MG TABLET PO SCH (08:12)
[2021-04-18] MEDS: DULERA 200/5 (MOMETASONE/FORMOTEROL) INHALER IH SCH (08:13)
--- NOTE | 2021-04-18 11:29 | P.DS ---
Admission Date: 03/29/21 Discharge Date: 04/18/21 Primary Care Provider: Dr. Howard Disposition: DC HOME/HOME HEALTH CARE Discharge Condition: FAIR Reason for Admission: Respiratory failure Brief History of Present Illness: 60-year-old woman with history of severe COPD on home oxygen, NIV and chronic steroid therapy, VIVEK, hypothyroidism, GERD presented to the emergency department for acute respiratory failure. Patient was brought in to the emergency department in respiratory distress. She was found without her nasal cannula or BiPAP on and confused with saturations in the 30s at home. She was immediately placed on BiPAP. ABG showed pH 7.2 PCO to 126 PO2 69.6. Chest x-ray showed left upper lobe pneumonia, patient also tested positive for Fields virus. Patient is DNI and refused intubation. Subsequently admitted to the ICU for further management. 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 Patient admitted to ICU and treated for acute respiratory failure with hypercapnia with BiPAP ventilation, bronchodilators and IV steroids. She developed metabolic acidosis, her Diamox dose was increased from 250 mg b.i.d. to 250 mg t.i.d. She was also treated for COVID pneumonia with IV steroid, bronchodilators, vitamin supplementation. Also suspected to have bacterial pneumonia Shecompleted antibiotics for bacterial pneumonia. Oxygen management done with BiPAP and high-flow oxygen She clinically improved after prolonged hospital stay and transition to oral steroid. She is now tolerating 4 L oxygen by nasal cannula. She was treated with remdesevir and baricitinib for the COVID pneumonia Dr. Do-pulmonary assisted with management. She has baseline end-stage COPD with severe respiratory failure on home NIV and oxygen She is anemic, no evidence of awilda bleeding. She has anemia of chronic disease. Noted to have oral candidiasis which is being treated with nystatin. She is discharged with tapering dose of prednisone. Vital Signs/Physical Exam: Temp Pulse Resp BP Pulse Ox 98 F 89 27 H 129/87 96 04/18/21 08:00 04/18/21 08:00 04/18/21 08:00 04/18/21 08:00 04/18/21 08:00 General: Alert, In no apparent distress, Oriented x3 HEENT: Mucous membr. moist/pink Neck: JVD not distended Respiratory: Other (Nonlabored breathing.) Cardiovascular: Regular rate/rhythm, Normal S1 S2, Edema (Lower extremities) Gastrointestinal: Soft and benign, Non-distended, No tenderness Musculoskeletal: No swelling Integumentary: No rashes Neurological: Normal strength at 5/5 x4 extr Laboratory Data at Discharge: WBC 3.50 K/uL (4.3-10.9) L 04/18/21 04:25 Hgb 8.1 g/dL (12.0-15.0) L 04/18/21 04:25 Hct 26.1 % (36.0-45.0) L 04/18/21 04:25 Plt Count 119 K/uL (152-406) L 04/18/21 04:25 PT 11.2 SECONDS (9.5-12.5) 04/01/21 03:45 INR 0.97 04/01/21 03:45 Sodium 141 mmol/L (136-145) 04/18/21 04:25 Potassium 4.1 mmol/L (3.5-5.1) 04/18/21 04:25 BUN 11 mg/dL (7-18) 04/18/21 04:25 Creatinine 0.43 mg/dL (0.55-1.3) L 04/18/21 04:25 Glucose 121 mg/dL (74-106) H 04/18/21 04:25 Magnesium 2.3 mg/dL (1.8-2.4) 04/16/21 06:03 Total Bilirubin 0.5 mg/dL (0.2-1.0) 04/16/21 06:03 AST 11 U/L (15-37) L 04/16/21 06:03 ALT 21 U/L (12-78) 04/16/21 06:03 Alkaline Phosphatase 43 U/L (45-117) L 04/16/21 06:03 Troponin I 0.02 ng/mL (0.0-0.045) 03/30/21 04:38 Home Medications: Albuterol Sulfate [Proair Hfa] 1 puff IH QID PRN 10/23/20 Atorvastatin Calcium [Lipitor*] 20 mg PO BEDTIME 10/23/20 Gabapentin 300 mg PO BID 10/23/20 Roflumilast [Daliresp*] 500 mcg PO DAILY 10/23/20 Umeclidinium Brm/Vilanterol Tr [Anoro Ellipta 62.5-25 Mcg INH] 1 puff IN DAILY 10/23/20 clonazePAM [Klonopin*] 0.5 mg PO DAILY PRN 10/23/20 Tramadol HCl [Ultram] 50 mg PO TID PRN 30 Days #60 tablet 11/21/20 Pantoprazole [Protonix Tab*] 40 mg PO DAILY 02/14/21 Ropinirole HCl [Requip*] 1 mg PO BEDTIME 02/14/21 Apixaban [Eliquis] 5 mg PO BID #30 tablet 04/18/21 Ascorbic Acid [Vitamin C*] 500 mg PO QID #120 tablet 04/18/21 Benzonatate [Tessalon Perle*] 100 mg PO TID PRN #30 cap 04/18/21 Cetirizine HCl [Zyrtec*] 10 mg PO DAILY PRN #30 tablet 04/18/21 Cholecalciferol (Vitamin D3) [Vitamin D 5,000 Iu Cap] 5,000 unit PO DAILY #30 cap 04/18/21 Docusate [Colace Cap*] 200 mg PO BID #60 cap 04/18/21 Nystatin 5 ml PO TID #120 ml 04/18/21 Thiamine HCl [Vitamin B-1*] 200 mg PO DAILY #60 tablet 04/18/21 Zinc Sulfate [Zinc Sulfate*] 220 mg PO DAILY #30 cap 04/18/21 acetaZOLAMIDE [Diamox*] 250 mg PO BID #60 tab 04/18/21 predniSONE [Deltasone] 20 mg PO BID #21 tab 04/18/21 New Medications: Docusate [Colace Cap*] 200 mg PO BID #60 cap acetaZOLAMIDE [Diamox*] 250 mg PO BID #60 tab Apixaban [Eliquis] 5 mg PO BID #30 tablet Nystatin 5 ml PO TID #120 ml predniSONE [Deltasone] 20 mg PO BID #21 tab Benzonatate [Tessalon Perle*] 100 mg PO TID PRN #30 cap PRN Reason: Cough Thiamine HCl [Vitamin B-1*] 200 mg PO DAILY #60 tablet Ascorbic Acid [Vitamin C*] 500 mg PO QID #120 tablet Cholecalciferol (Vitamin D3) [Vitamin D 5,000 Iu Cap] 5,000 unit PO DAILY #30 cap Zinc Sulfate [Zinc Sulfate*] 220 mg PO DAILY #30 cap Cetirizine HCl [Zyrtec*] 10 mg PO DAILY PRN #30 tablet PRN Reason: Allergies Diet: AHA Activity: Fall precautions Followup: Isai Do MD [ACTIVE - CAN ADMIT] - 1 Week () Billy Howard DO [Primary Care Provider] - Time spent managing pt's care (in minutes): 42
[2021-04-18 12:20] VITALS: BP 135/79; TEMP 97.8
[2021-04-18 12:49] VITALS: O2SAT 88
[2021-04-18] MEDS: clonazePAM 0.5 MG TAB PO PRN (12:57)
--- NOTE | 2021-04-19 07:35 | EKG ---
Test Date: 2021-04-17 Test Time: 10:42:00 [place] Picker: MARGARETTE MEASUREMENT RESULTS: Intervals: Rate: 88 MN: 150 QRSD: 86 QT: 340 QTc: 411 [place]: P: 31 MN: 150 QRS: 52 T: 66 INTERPRETIVE STATEMENTS: Sinus rhythm with premature atrial complexes with aberrant conduction Otherwise normal ECG Compared to ECG 03/29/2021 11:00:44 Aberrant conduction of supraventricular beat(s) now present Right-axis deviation no longer present Electronically Signed On 04-19-21 07:29:08 CDT by Selvin Mar
== END 2021-04-18 15:15 | disposition home health service (06) | DRG 177 ==
LOC: ER 10:37 → ERHOLD 19:00 → 3RD-ICU 21:23
PROVIDERS: ADMIT Hospitalist; ATTEND Hospitalist
PROC: 5A09357 Assistance with Respiratory Ventilation, Less than 24 Consecutive Hours, Continuous Positive Airway Pressure (ICD-10-PCS; principal; 2021-03-29)
DX: U07.1 COVID-19 (principal); J12.82 Pneumonia due to coronavirus disease 2019; J96.21 Acute and chronic respiratory failure with hypoxia; J15.9 Unspecified bacterial pneumonia; J96.02 Acute respiratory failure with hypercapnia; B37.0 Candidal stomatitis; E87.2 Acidosis; J44.0 Chronic obstructive pulmonary disease with (acute) lower respiratory infection; J44.1 Chronic obstructive pulmonary disease with (acute) exacerbation; E03.9 Hypothyroidism, unspecified; I10 Essential (primary) hypertension; F41.9 Anxiety disorder, unspecified; D63.8 Anemia in other chronic diseases classified elsewhere; K21.9 Gastro-esophageal reflux disease without esophagitis; Z99.81 Dependence on supplemental oxygen; Z79.52 Long term (current) use of systemic steroids
CPT/HCPCS: 36415; 71045; 80048; 80053; 80076; 81003; 81015; 82248; 82728; 82805; 82947; 83540; 83605; 83735; 83880; 84132; 84145; 84466; 84484; 85025; 85027; 85044; 85610; 86140; 87040; 87070; 87205; 93005; 94002; 94003; 94660; 94760; 96365; 96367; 96372; 97110; 97116; 97161; 97530; 99291; 99292; J0456; J0696; J1120; J1650; J2270; J2405; J2920; J2930; J3475; J7030; J7050; J7512; J7606; U0003

== ENCOUNTER 2021-04-22 00:23 | Inpatient (IN) | payer OTHER ==
--- OUTSIDE RECORDS SUMMARY | 2021-04-22 00:55 | XMS REPORT | Continuity of Care Document ---
:1960 Author Organization [facility] Address [address] [place] [address] Care Team Providers Name Role Phone Doctor [...] Treatment Clinician Date Tobacco Tobacco Disease Active [facility] 00 [facility] Hypoxemia Hypoxemia Disease Active [facility] COPD COPD Disease Active [facility] exacerbati exacerbati 6 Pema kes - on on 00:00: Medical 00 Rebuck Acute Acute Disease Active [facility] hypercapni hypercapni 6- Pema kes - c c 00:00: Medical respirator respirator 00 Ce nter y failure y failure Allergies, Adverse Reactions, Alerts This patient has no known allergies or adverse reactions. Social History Social Habit Start Date Stop Date Quantity Comments Source Sex Assigned At [facility] Medications Ordered Filled Start Stop [...] ID 2021-01-25 2021-01-25 Orders Doctor NESS 1.2.840.114 [id number] 00:00:00 00:00:00 Only UnassignedVIRGILIO 350.1.13.10 [place] [facility] 4.2.7.2.686 [id number] 2021-01-15 2021-01-15 Orders Doctor NESS 1.2.840.114 [id number] 00:00:00 00:00:00 Only UnassignedVIRGILIO 350.1.13.10 [place] [facility] 4.2.7.2.686 [id number] 2020-11-17 2020-11-17 DEEDEE Oliva 1.2.840.114 [id number] 00:00:00 00:00:00 Management [place] [facility] 350.1.13.10 [facility] 42.7.2.686 CENTER [phone] [facility] 2020-11-17 2020-11-17 Transition Molly Hernandez 1.2.840.114 [id number] 00:00:00 00:00:00 of Care Viviana Person Aram 350.1.13.10 [place] 4.2.7.2.686 [id number] 2020-11-12 2020-11-16 [facility] Jeronimo Hogue 1.2.840.1 14 [id number] 18:33:00 16:20:00 Encounter [facility]13.10 [facility] 4.2.7.2.686 Sammie Tarango [id number] Nash Brenner 0[address] Almaraz MorenoNash Harris Krishna Moreno 2020-11-14 2020-11-14 Telephone [facility] 1.2.840.114 [id number] 00:00:00 00:00:00 MAXI baker 350.1.13.10 [facility] 4.2.7.2.686 CENTER AT [phone] [place] [address] [place] [address] 2020-11-13 2020-11-13 Transition Molly Verdugo 1.2.840.114 [id number] 00:00:00 00:00:00 of Care Lizbeth Aram 350.1.13.10 [place] 4.2.7.2.686 [id number] 2020-11-07 2020-11-11 [facility] Jeronimo Hogue [facility] 1.2.840.1 14 [id number] 06:48:00 14:50:00 Encounter Adán Pelayo 350.1.13.10 Jeronimo Hogue 4.2.7.2.686 Adán Pelayo Howell [id number] 2020-07-12 2020-07-12 [facility] 1.2.840.114 7 [id number] 11:56:24 23:59:00 Encounter samuel, Pediatric 350.1.13.10 Shibi s and 4.2.7.2.686 Adult [id number] Primary [address] [place] [address] Clinic 2020-07-12 2020-07-12 Office Hillary Ybarra 1.2.840.114 [id number] 11:00:10 13:58:54 Visit samuel Pediatric 350.1.13.10 Shibi s and 4.2.7.2.686 Adult [id number] Primary [address] [place] [address] 2020-07-03 2020-07-03 Orders Doctor THI 1.2.840.114 [id number] 00:00:00 00:00:00 Only Unassigned, VIRGILIO 350.1.13.10 [place] [facility] 4.2.7.2.686 [id number] Results Test Description Test Time Test [...] NOT 1092) ACCURATE CRE ATININE CLEARANCE IN [place] EDICTING GLOMERULAR FILT RATION RATE. ESTIMATED GFR [...] 0-0 (AKER) (test code = 413) 0.00POCT-GLUCOSE [id number] 17:50:00 Test Item Value Reference Range Interpretation Comments POC-GLUCOSE METER 118 mg/dL 70-110 H TESTED AT [place] [address] ([facility]) (test code = KISHA Pabon [facility] 1538) [id number] POCT-GLUCOSE [id number] 11:59:00 Test Item Value Reference Range Interpretation Comments POC-GLUCOSE METER 247 mg/dL 70-110 H TESTED AT [place] [address] ([facility]) ([facility] 1538) [id number] POCT-GLUCOSE [id number] 07:54:00 Test Item Value Reference Range Interpretation Comments POC-GLUCOSE METER 141 mg/dL 70-110 H TESTED AT [place] [address] ([facility]) (test code = [facility] 1538) [id number] CBC W/PLT COUNT & AUTO [id number] 03:45:00 Test Item Value Reference Range Interpretation Comments WHITE BLOOD CELL COUNT ([facility]) 4.9 K/ L 4.0-10.0 (test [...] K/ L 0.00-0.20 (test code = 417) [id number] 03:29:00 Test Item Value Reference Range Interpretation Comments MAGNESIUM (BEAKER) 1.8 mg/dL 1.6-2.6 Specimen slightly (test code = 627) hemolyzed BASIC METABOLIC [id number] 03:29:00 Test Item Value Reference Range Interpretation [...] NOT APPLICABLE FOR DIALYSIS PATIEN TS. POCT-GLUCOSE [id number] 00:05:00 Test Item Value Reference Range Interpretation Comments POC-GLUCOSE METER 117 mg/dL 70-110 H [facility] AT [facility] 67 [facility] (test code = [facility] 1538) [id number] POCT-GLUCOSE [id number] 18:17:00 Test Item Value Reference Range Interpretation Comments POC-GLUCOSE METER 141 mg/dL 70-110 H TESTED AT [facility] 6720 [facility] (test code = [facility] 1538) [address] CREATINE KINASE (CK), TOTAL AND [id number] 15:43:00 Test Item Value Reference Range Interpretation Comments CREATINE KINASE TOTAL (BEAKER) 31 U/L 29-200 (test code = 380) CREATINE KINASE-MB (BEAKER) (test 1.3 ng/mL 0.0-6.6 code = 750) CREATINE KINASE-MB INDEX (BEAKER) 4.2 % (test code = 395) Effective 08/09/2014: CK-MB Reference Range ChangeNew: 0.0-6.6 Previous: 0.0-4.9CK-MB Reference Range:<6.7 Normal6.7-10.0 Borderline>10.0 AbnormalBLOOD GAS, [id number] 15:26:00 Test Item Value Reference Range Interpretation [...] (test code = 1819) 35.0 % POCT-GLUCOSE [id number] 11:45:00 Test Item Value Reference Range Interpretation Comments POC-GLUCOSE METER 122 mg/dL 70-110 H TESTED AT [facility] 6720 (BEAKER) (test code = K[place] 1538) [id number] CREATINE KINASE (CK), TOTAL AND [id number] 10:29:00 Test Item Value Reference Range Interpretation Comments CREATINE KINASE TOTAL (BEAKER) 31 U/L 29-200 (test code = 380) CREATINE KINASE-MB (BEAKER) (test 1.5 ng/mL 0.0-6.6 code = 750) CREATINE KINASE-MB INDEX (BEAKER) 4.8 % (test code = 395) Effective 08/09/2014: CK-MB Reference Range ChangeNew: 0.0-6.6 Previous: 0.0-4.9CK-MB Reference Range:<6.7 Normal6.7-10.0 Borderline>10.0 AbnormalTROPONIN [id number] 10:29:00 Test Item Value Reference Range Interpretation [...] renalfailure, acidosis, acute neurological disease, and persistent tachyarrhythmia.[id number] 10:22:00 Test Item Value Reference Range Interpretation Comments PARTIAL THROMBOPLASTIN TIME 22.5 seconds 22.5-36.0 (BEAKER) (test code = 760) PROTHROMBIN TIME/[id number] 10:21:00 Test Item Value Reference Range Interpretation Comments PROTIME (BEAKER) (test code = 12.4 seconds 11.7-14.7 759) INR (BEAKER) (test code = 370) 0.9 <=5.9 RECOMMENDED COUMADIN/WARFARIN INR THERAPY RANGESSTANDARD DOSE: 2.0 - 3.0 Includes: PROPHYLAXIS forvenous thrombosis, systemic embolization; TREATMENT for venous thrombosis and/or pulmonary embolus.HIGH RISK: Target INR is 2.5-3.5 for patients with mechanical heart valves.BLOOD GAS, [id number] 10:17:00 Test Item Value Reference Range Interpretation [...] (test code = 1819) 40.0 % PLATELET [id number] 10:13:00 Test Item Value Reference Range Interpretation Comments PLATELET COUNT (BEAKER) (test 111 K/CU MM 150-430 L code = 756)
[2021-04-22] MEDS ORDERED: LEVALBUTEROL 1.25 MG/3 ML NEB ONE (01:42)
[2021-04-22] MEDS ORDERED: METHYLPREDNISOLONE 125 MG INJ ONE (01:42)
[2021-04-22] MEDS ORDERED: IPRATROPIUM BROM 0.5MG/2.5ML ONE (01:42)
[2021-04-22] MEDS ORDERED: NA CHLORIDE 0.9% 1,000 ML ONE (01:42)
--- NOTE | 2021-04-22 01:45 | ER ---
Nurse's Notes [facility] Name: Vikki Zamudio Age: 60 yrs Sex: Female : 1960 Arrival Date: 04/22/2021 Time: 00:56 Bed 20 Private MD: Diagnosis: COPD/ Chronic obstructive pulmonary disease with (acute) exacerbation;Hypoxemia;Acute and chronic respiratory failure with hypercapnia Presentation: 04/22 01:09 Chief complaint: EMS states: Reports BiPAP machine at home broke woke up with sat of ea 86% called EMS. Coronavirus screen: At this time, the client does not indicate any symptoms associated with coronavirus-19. Ebola Screen: No symptoms or risks identified at this time. Initial Sepsis Screen: Does the patient meet any 2 criteria? No. Patient's initial sepsis screen is negative. Does the patient have a suspected source of infection? No. Patient's initial sepsis screen is negative. Risk Assessment: Do you want to hurt yourself or someone else? Patient reports no desire to harm self or others. Onset of symptoms was April 22, 2021. 01:09 Method Of Arrival: EMS: [facility] ea 01:09 Acuity: LIZETH 3 ea Historical: - Allergies: 02:12 Codeine; ea - Home Meds: 02:12 Tessalon Perles 100 mg Oral cap 1 cap 3 times per day [Active]; prednisone 20 mg Oral ea tab 1 tab 2 times per day [Active]; Nicoderm CQ 21 mg/24 hr transdermal pt24 1 patch once daily [Active]; levothyroxine 88 mcg tab 1 tab once daily [Active]; latanoprost 0.005 % ophthalmic drop 1 drop once daily [Active]; furosemide 20 mg Oral tab 1 tab once daily [Active]; fluticasone 50 mcg/actuation nasal spsn 1 spray once daily [Active]; Daliresp 500 mcg Oral tab 1 tab once daily [Active]; cyclobenzaprine 5 mg Oral tab 1 tab nightly [Active]; clonazepam 0.5 mg Oral tab 1 tab daily [Active]; carvedilol 6.25 mg Oral tab 1 tab 2 times per day [Active]; atorvastatin 20 mg Oral tab 1 tab once daily [Active]; aspirin 81 mg Oral TbEC 1 tab once daily [Active]; Anoro Ellipta 62.5-25 mcg/actuation inhalation dsdv 1 puff once daily [Active]; Albuterol Inhl [Active]; acetazolamide 125 mg Oral tab 1 tab once daily [Active]; - PMHx: 02:12 Sleep Apnea; Panic Attacks; Hypothyroidism; Hypertension; Hypercarbia; High ea Cholesterol; GERD; COPD; CHF; - Immunization history:: Adult Immunizations up to date. - Family history:: not pertinent. - Social history:: Smoking status: unknown. Screenin:12 Abuse screen: Denies threats or abuse. Nutritional screening: No deficits noted. ea Tuberculosis screening: No symptoms or risk factors identified. Fall Risk None identified. Assessment: 02:14 General: Appears uncomfortable, Behavior is appropriate for age. Pain: Denies pain. ea Neuro: Level of Consciousness is awake, alert, obeys commands, Oriented to person, place, time. Cardiovascular: Patient's skin is warm and dry. Respiratory: Airway is patent Respiratory effort is even, unlabored, Respiratory pattern is regular, symmetrical. Derm: Skin is pink, warm \T\ dry. 04:52 Reassessment: Patient and/or family updated on plan of care and expected duration. Pain ea level reassessed. Patient is alert, oriented x 3, equal unlabored respirations, skin warm/dry/pink. Awaiting on covid results. 05:32 Reassessment: Patient and/or family updated on plan of care and expected duration. Pain ea level reassessed. Patient is alert, oriented x 3, equal unlabored respirations, skin warm/dry/pink. Awaiting on covid results. Vital Signs: 02:39 BP 146 / 91; Pulse 103; Resp 18; Pulse Ox 99% ; ea 03:32 BP 131 / 64; Pulse 68; Resp 22; Temp 98.7; Pulse Ox 96% ; ea 04:00 BP 135 / 82; Pulse 67; Resp 18; Pulse Ox 95% ; ea 05:00 BP 123 / 77; Pulse 64; Resp 18; Pulse Ox 95% on BiPAP; ea ED Course: 00:56 Patient arrived in ED. mw2 01:04 Po Toure MD is Attending Physician. chato 01:08 Mary Ellen Villanueva RN is Primary Nurse. ea 01:10 Triage completed. ea 01:43 Sarah Young MD is Hospitalizing Provider. chato 02:00 Inserted saline lock: 20 gauge in right antecubital area, using aseptic technique. ea Blood collected. 02:13 Patient has correct armband on for positive identification. Bed in low position. Call ea light in reach. Side rails up X2. 02:14 Arm band placed on right wrist. Patient placed in an exam room, on a stretcher, on ea pulse oximetry. 02:23 XRAY CXR (1 view) In Process Unspecified. EDCT 03:33 No provider procedures requiring assistance completed. Patient admitted, IV remains in ea place. 07:22 Primary Nurse role handed off by Mary Ellen Villanueva, DULCE 07:22 Tremayne Peng, RN is Primary Nurse. bp Administered Medications: 01:28 Drug: SOLU-Medrol (methylPrednisoLONE) 125 mg Route: IVP; Site: right antecubital; ea 03:34 Follow up: Response: No adverse reaction ea 01:28 Drug: NS 0.9% 1000 ml Route: IV; Rate: 125 ml/hr; Site: right antecubital; ea 03:33 Follow up: IV Status: Infusion continued upon admission ea 01:28 Drug: Xopenex (levalbuterol) 3.75 mg Route: Inhalation; ea 01:28 Drug: AtroVENT (ipratropium) Aerosol 0.5 mg Route: Inhalation; ea Outcome: 01:45 Decision to Hospitalize by Provider. chato 03:33 Condition: stable ea 03:33 Instructed on the need for admit, Demonstrated understanding of instructions. 18:35 Patient left the ED. eb Signatures: Dispatcher [employer] EDCT Po Toure MD MD cha Antunez, Elena, Tremayne Moore RN, ea, DULCE CARDONA Renard Lei 2 Hetal Shetty
--- NOTE | 2021-04-22 01:45 | EDPHYS ---
Physician Documentation [facility] Name: Vikki Zamudio Age: 60 yrs Sex: Female : 1960 Arrival Date: 04/22/2021 Time: 00:56 Bed 20 Private MD: ED Physician Po Toure HPI: 04/22 01:37 This 60 yrs old Female presents to ER via EMS with complaints of Breathing chato Difficulty. 01:37 The patient has shortness of breath at rest, with light activity. Onset: The hcato symptoms/episode began/occurred 2 day(s) ago. Duration: The symptoms are continuous, and are steadily getting worse. The patient's shortness of breath is aggravated by nothing, is alleviated by nothing. Associated signs and symptoms: The patient has no apparent associated signs or symptoms. Severity of symptoms: At their worst the symptoms were mild moderate in the emergency department the symptoms are unchanged. The patient has not experienced similar symptoms in the past. Historical: - Allergies: 02:12 Codeine; ea - Home Meds: 02:12 Tessalon Perles 100 mg Oral cap 1 cap 3 times per day [Active]; prednisone 20 mg Oral ea tab 1 tab 2 times per day [Active]; Nicoderm CQ 21 mg/24 hr transdermal pt24 1 patch once daily [Active]; levothyroxine 88 mcg tab 1 tab once daily [Active]; latanoprost 0.005 % ophthalmic drop 1 drop once daily [Active]; furosemide 20 mg Oral tab 1 tab once daily [Active]; fluticasone 50 mcg/actuation nasal spsn 1 spray once daily [Active]; Daliresp 500 mcg Oral tab 1 tab once daily [Active]; cyclobenzaprine 5 mg Oral tab 1 tab nightly [Active]; clonazepam 0.5 mg Oral tab 1 tab daily [Active]; carvedilol 6.25 mg Oral tab 1 tab 2 times per day [Active]; atorvastatin 20 mg Oral tab 1 tab once daily [Active]; aspirin 81 mg Oral TbEC 1 tab once daily [Active]; Anoro Ellipta 62.5-25 mcg/actuation inhalation dsdv 1 puff once daily [Active]; Albuterol Inhl [Active]; acetazolamide 125 mg Oral tab 1 tab once daily [Active]; - PMHx: 02:12 Sleep Apnea; Panic Attacks; Hypothyroidism; Hypertension; Hypercarbia; High ea Cholesterol; GERD; COPD; CHF; - Immunization history:: Adult Immunizations up to date. - Family history:: not pertinent. - Social history:: Smoking status: unknown. ROS: 01:37 Constitutional: Negative for fever, chills, and weight loss, Eyes: Negative for injury, chato pain, redness, and discharge, ENT: Negative for injury, pain, and discharge, Neck: Negative for injury, pain, and swelling, Cardiovascular: Negative for chest pain, palpitations, and edema, Abdomen/GI: Negative for abdominal pain, nausea, vomiting, diarrhea, and constipation, Back: Negative for injury and pain, : Negative for injury, bleeding, discharge, and swelling, MS/Extremity: Negative for injury and deformity, Skin: Negative for injury, rash, and discoloration, Neuro: Negative for headache, weakness, numbness, tingling, and seizure, Psych: Negative for depression, anxiety, suicide ideation, homicidal ideation, and hallucinations, Allergy/Immunology: Negative for hives, rash, and allergies, Endocrine: Negative for neck swelling, polydipsia, polyuria, polyphagia, and marked weight changes, Hematologic/Lymphatic: Negative for swollen nodes, abnormal bleeding, and unusual bruising. 01:37 Respiratory: Positive for cough, shortness of breath, wheezing, expiratory. Exam: 01:37 Constitutional: This is a well developed, well nourished patient who is awake, alert, chato and in no acute distress. Head/Face: Normocephalic, atraumatic. Eyes: Pupils equal round and reactive to light, extra-ocular motions intact. Lids and lashes normal. Conjunctiva and sclera are non-icteric and not injected. Cornea within normal limits. Periorbital areas with no swelling, redness, or edema. ENT: Nares patent. No nasal discharge, no septal abnormalities noted. Tympanic membranes are normal and external auditory canals are clear. Oropharynx with no redness, swelling, or masses, exudates, or evidence of obstruction, uvula midline. Mucous membranes moist. Neck: Trachea midline, no thyromegaly or masses palpated, and no cervical lymphadenopathy. Supple, full range of motion without nuchal rigidity, or vertebral point tenderness. No Meningismus. Chest/axilla: Normal chest wall appearance and motion. Nontender with no deformity. No lesions are appreciated. Cardiovascular: Regular rate and rhythm with a normal S1 and S2. No gallops, murmurs, or rubs. Normal PMI, no JVD. No pulse deficits. Abdomen/GI: Soft, non-tender, with normal bowel sounds. No distension or tympany. No guarding or rebound. No evidence of tenderness throughout. Back: No spinal tenderness. No costovertebral tenderness. Full range of motion. Female : Normal external genitalia. Skin: Warm, dry with normal turgor. Normal color with no rashes, no lesions, and no evidence of cellulitis. MS/ Extremity: Pulses equal, no cyanosis. Neurovascular intact. Full, normal range of motion. Neuro: Awake and alert, GCS 15, oriented to person, place, time, and situation. Cranial nerves II-XII grossly intact. Motor strength 5/5 in all extremities. Sensory grossly intact. Cerebellar exam normal. Normal gait. Psych: Awake, alert, with orientation to person, place and time. Behavior, mood, and affect are within normal limits. 01:37 Respiratory: mild respiratory distress is noted, Respirations: labored breathing, that is mild, Breath sounds: bronchial sounds, that are mild, decreased breath sounds, that are moderate, are heard in the left posterior upper lobe, right posterior upper lobe, left posterior lower lobe, right posterior middle lobe and right posterior lower lobe, rhonchi, that are mild, stridor, is not appreciated. 02:47 ECG was reviewed by the Attending Physician. chato Vital Signs: 02:39 BP 146 / 91; Pulse 103; Resp 18; Pulse Ox 99% ; ea 03:32 BP 131 / 64; Pulse 68; Resp 22; Temp 98.7; Pulse Ox 96% ; ea 04:00 BP 135 / 82; Pulse 67; Resp 18; Pulse Ox 95% ; ea 05:00 BP 123 / 77; Pulse 64; Resp 18; Pulse Ox 95% on BiPAP; ea MDM: 01:04 Patient medically screened. chato 01:40 Differential diagnosis: CHF exacerbation, Chronic Obstructive Pulmonary Disease chato pneumonia, Pneumothorax pulmonary edema, reactive airway disease. Antibiotic administration: Not indicated. The patient's Wells Deep Vein Thrombosis Score was calculated as follows: Total Score: 0-2 Pts- Low Risk. The patient's pulmonary embolism risk score was calculated as follows: Total Score: 0-2 points. This patient was found to be at low risk for a pulmonary embolism by using the Well's assessment criteria. Immunization status: Influenza vaccine:. Data reviewed: vital signs, nurses notes, lab test result(s), EKG, radiologic studies, plain films. Data interpreted: title searcher: rate is 92 beats/min, rhythm is regular, Pulse oximetry: on room air is 88 %. Test interpretation: by ED physician or midlevel provider: ECG, plain radiologic studies. Counseling: I had a detailed discussion with the patient and/or guardian regarding: the historical points, exam findings, and any diagnostic results supporting the discharge/admit diagnosis, the presence of at least one elevated blood pressure reading (>120/80) during this emergency department visit, lab results, radiology results, the need for further work-up and treatment in the hospital. 04/22 01:09 Order name: BMP 04/22 01:09 Order name: Blood Culture Adult (2) 04/22 01:09 Order name: CBC with Diff 04/22 01:09 Order name: CPK 04/22 01:09 Order name: Ckmb 04/22 01:09 Order name: D-Dimer 04/22 01:09 Order name: Hepatic Function 04/22 01:09 Order name: Lipase 04/22 01:09 Order name: Magnesium 04/22 01:09 Order name: NT PRO-BNP 04/22 01:09 Order name: PT-INR 04/22 01:09 Order name: Ptt, Activated 04/22 01:09 Order name: Troponin (emerg Dept Use Only) 04/22 01:09 Order name: XRAY CXR (1 view) 04/22 01:10 Order name: ABG [facility] 04/22 01:10 Order name: BIPAP [facility] 04/22 01:54 Order name: COVID-19 : Document "Date of Symptom Onset" if Symptomatic. mw2 04/22 02:37 Order name: C-Reactive Protein [facility] 04/22 06:10 Order name: SARS-COV-2 RT PCR [facility] 04/22 01:09 Order name: EKG; Complete Time: 01:09 04/22 01:09 Order name: Cardiac monitoring; Complete Time: 02:40 04/22 01:09 Order name: EKG - Nurse/Tech; Complete Time: 02:40 ea 04/22 01:09 Order name: IV Saline Lock; Complete Time: 01: ea 04/22 01:09 Order name: Labs collected and sent; Complete Time: 01: ea 04/22 01:09 Order name: O2 Per Protocol; Complete Time: 01: ea 04/22 01:09 Order name: O2 Sat Monitoring; Complete Time: 01: ea 04/22 01:10 Order name: EKG; Complete Time: 01: chato 04/22 01:10 Order name: Cardiac monitoring; Complete Time: : chato 04/22 01:10 Order name: EKG - Nurse/Tech; Complete Time: 02:40 chato 04/22 01:10 Order name: IV Saline Lock; Complete Time: : chato 04/22 01:10 Order name: Labs collected and sent; Complete Time: : chato 04/22 01:10 Order name: O2 Per Protocol; Complete Time: : chato 04/22 01:10 Order name: O2 Sat Monitoring; Complete Time: : chato 04/22 09:27 Order name: Diet Heart Healthy; Complete Time: 09:27 eb EC:47 Rate is 76 beats/min. Rhythm is regular. QRS [place] is Normal. IN interval is normal. QRS chato interval is normal. QT interval is normal. No Q waves. T waves are Normal. No ST changes noted. Clinical impression: NSR w/ Non-specific ST/T Changes and No evidence of ischemia. Interpreted by me. Reviewed by me. Administered Medications: Drug: SOLU-Medrol (methylPrednisoLONE) 125 mg Route: IVP; Site: right antecubital; ea 03:34 Follow up: Response: No adverse reaction ea 01:28 Drug: NS 0.9% 1000 ml Route: IV; Rate: 125 ml/hr; Site: right antecubital; ea 03:33 Follow up: IV Status: Infusion continued upon admission ea :28 Drug: Xopenex (levalbuterol) 3.75 mg Route: Inhalation; ea 01:28 Drug: AtroVENT (ipratropium) Aerosol 0.5 mg Route: Inhalation; ea Disposition Summary: 04/22/21 01:45 Hospitalization Ordered Hospitalization Status: Inpatient Admission chato Provider: Young, Mohammad chato Condition: Fair chato Problem: new chato Symptoms: have improved chato Bed/Room Type: Standard chato Location: Telemetry/MedSurg (Inpatient)(04/22/21 17:31) eb Room Assignment: 412(04/22/21 17:31) eb Diagnosis - COPD/ Chronic obstructive pulmonary disease with (acute) exacerbation chato - Hypoxemia chato - Acute and chronic respiratory failure with hypercapnia chato Forms: - Medication Reconciliation Form chato - SBAR form chato Signatures: Dispatcher [employer] EDMS Sheryl Olivia RN RN mw Anderson, Corey, MD MD cha Antunez, Elena, RN RN ea Botello, Elizabeth eb Corrections: (The following items were deleted from the chart) 01:11 01:11 Arterial Blood Gas+RC.LAB.BRZ ordered. EDMS EDMS 01:32 01:10 CBC+H.LAB.BRZ ordered. EDMS EDMS 01:32 01:10 PROTIME (+INR)+COAG.LAB.BRZ ordered. EDMS EDMS 01:33 01:10 BASIC METABOLIC PANEL+C.LAB.BRZ ordered. EDMS EDMS 01:33 01:10 HEPATIC FUNCTION+C.LAB.BRZ ordered. EDMS EDMS 01:33 01:10 MAGNESIUM+C.LAB.BRZ ordered. EDMS EDMS 01:33 01:10 PROBNP+C.LAB.BRZ ordered. EDMS EDMS 01:33 01:10 TROPONIN (EMERG DEPT USE ONLY)+C.LAB.BRZ ordered. EDMS EDMS 02:23 01:10 Chest Single View+RAD.RAD.BRZ ordered. EDMS EDMS 06:15 01:45 Telemetry/MedSurg (Inpatient) chato mw 06:15 01:45 chato mw 17:31 06:15 [facility] ER HOLD mw eb 17:31 06:15 ERHOLD- mw eb
[2021-04-22 01:47] LABS: Absolute Lymphocytes (CBC) 0.5 K/uL (0.7-4.9); Basophils % 0.3 % (0-1.3); Hematocrit 28.9 % (36.0-45.0); Lymphocytes % 9.1 % (15.3-44.8); MPV 7.7 fL (7.6-11.3); RBC Red Blood Cell Count 3.29 M/uL (3.86-4.86)
--- NOTE | 2021-04-22 02:46 | P.HP ---
Certification for Inpatient Patient admitted to: Inpatient With expected LOS: >2 Midnights Patient will require the following post-hospital care: None Practitioner: I am a practitioner with admitting privileges, knowledge of patient current condition, hospital course, and medical plan of care. Services: Services provided to patient in accordance with Admission requirements found in Title 42 Section 412.3 of the Code of Federal Regulations <JonathonRishi - Last Filed: 04/22/21 02:43> Patient History Date of Service: 04/22/21 Reason for admission: Hypoxic hypercapnic respiratory failure History of Present Illness: 60-year-old female with history of end-stage COPD on home oxygen/NIV/chronic steroid therapy, obstructive sleep apnea, hypothyroidism, GERD presents the emergency department for shortness of breath. Patient reports that she has her BiPAP machine at home but it has not been working, upon arrival patient was 86% on her home oxygen without the NIV. Patient was evaluated in the emergency department, ABG demonstrated patient was hypercapnic with CO2 of 112, pH of 7.1. Chest x-ray does not look significantly different in comparison, otherwise vital signs are stable, patient tolerating BiPAP well at this time. ED provider wishes to admit for further evaluation and management of acute on chronic respiratory failure. - Past Medical/Surgical History Diabetic: No -: Severe COPD, oxygen/steroid dependent,Pulmonary-Dr. Do -: Mild pulmonary hypertension -: Hypothyroidism -: Bipolar disorder -: Hypertension -: Chronic low back pain -: Obstructive sleep apnea -: Tobacco abuse -: HLD -: GERD -: Appendectomy -: Psychosocial/ Personal History: She lives with a partner. She has 1 child. She is currently disabled. - Family History Father -: Heart disease, Hypertension, Diabetes Notes: from CHF Mother -: Heart disease, Hypertension, Diabetes Notes: from CHF Brother -: Diabetes Sister -: Heart disease, Diabetes Notes: from CHF - Social History Alcohol use: Yes CD- Drugs: No Caffeine use: Yes Place of Residence: Home <Rishi Holt - Last Filed: 04/22/21 02:43> Date of Service: 04/22/21 <Sarah Young - Last Filed: 04/22/21 20:17> Allergies codeine [Codeine] Adverse Reaction (Mild, Verified 02/15/21 08:47) itch Home Medications: Albuterol Sulfate [Proair Hfa] 1 puff IH QID PRN 10/23/20 Atorvastatin Calcium [Lipitor*] 20 mg PO BEDTIME 10/23/20 Gabapentin 300 mg PO BID 10/23/20 Roflumilast [Daliresp*] 500 mcg PO DAILY 10/23/20 Umeclidinium Brm/Vilanterol Tr [Anoro Ellipta 62.5-25 Mcg INH] 1 puff IN DAILY 10/23/20 clonazePAM [Klonopin*] 0.5 mg PO DAILY PRN 10/23/20 Tramadol HCl [Ultram] 50 mg PO TID PRN 30 Days #60 tablet 11/21/20 Pantoprazole [Protonix Tab*] 40 mg PO DAILY 02/14/21 Ropinirole HCl [Requip*] 1 mg PO BEDTIME 02/14/21 Apixaban [Eliquis] 5 mg PO BID #30 tablet 04/18/21 Ascorbic Acid [Vitamin C*] 500 mg PO QID #120 tablet 04/18/21 Benzonatate [Tessalon Perle*] 100 mg PO TID PRN #30 cap 04/18/21 Cetirizine HCl [Zyrtec*] 10 mg PO DAILY PRN #30 tablet 04/18/21 Cholecalciferol (Vitamin D3) [Vitamin D 5,000 Iu Cap] 5,000 unit PO DAILY #30 cap 04/18/21 Docusate [Colace Cap*] 200 mg PO BID #60 cap 04/18/21 Nystatin 5 ml PO TID #120 ml 04/18/21 Thiamine HCl [Vitamin B-1*] 200 mg PO DAILY #60 tablet 04/18/21 Zinc Sulfate [Zinc Sulfate*] 220 mg PO DAILY #30 cap 04/18/21 acetaZOLAMIDE [Diamox*] 250 mg PO BID #60 tab 04/18/21 predniSONE [Deltasone] 20 mg PO BID #21 tab 04/18/21 Review of Systems 10-point ROS is otherwise unremarkable Respiratory: Shortness of Breath <Rishi Holt - Last Filed: 04/22/21 02:43> Physical Examination - Physical Exam General: Alert, In no apparent distress, Oriented x3, Obese HEENT: Atraumatic, PERRLA, Mucous membr. moist/pink, EOMI, Sclerae nonicteric Neck: Supple, 2+ carotid pulse no bruit, No LAD, Without JVD or thyroid abnormality Respiratory: Normal air movement, Diminished, Expiratory wheezes Cardiovascular: Regular rate/rhythm, Normal S1 S2 Gastrointestinal: Normal bowel sounds, No tenderness Musculoskeletal: No tenderness Integumentary: No rashes Neurological: Normal gait, Normal speech, Normal strength at 5/5 x4 extr, Normal tone, Normal affect Lymphatics: No axilla or inguinal lymphadenopathy - Studies Laboratory Data (last 24 hrs) 04/22/21 01:23: WBC 5.20 D, Hgb 8.9 L, Hct 28.9 L, Plt Count 143 L D 04/22/21 01:10: PT Cancelled, INR Cancelled 04/22/21 01:10: WBC Cancelled, Hgb Cancelled, Hct Cancelled, Plt Count Cancelled 04/22/21 01:10: Sodium Cancelled, Potassium Cancelled, BUN Cancelled, Creatinine Cancelled, Glucose Cancelled, Magnesium Cancelled, Total Bilirubin Cancelled, AST Cancelled, ALT Cancelled, Alkaline Phosphatase Cancelled <Rishi Holt - Last Filed: 04/22/21 02:43> - Studies Laboratory Data (last 24 hrs) 04/22/21 01:23: PT 12.1, INR 1.02, APTT 28.0 04/22/21 01:23: WBC 5.20 D, Hgb 8.9 L, Hct 28.9 L, Plt Count 143 L D 04/22/21 01:23: Sodium 145, Potassium 4.1, BUN 11, Creatinine 0.54 L, Glucose 151 H, Magnesium 2.3, Total Bilirubin 0.4, AST 9 L, ALT 27, Alkaline Phosphatase 59, Lipase 78 04/22/21 01:10: PT Cancelled, INR Cancelled 04/22/21 01:10: WBC Cancelled, Hgb Cancelled, Hct Cancelled, Plt Count Cancelled 04/22/21 01:10: Sodium Cancelled, Potassium Cancelled, BUN Cancelled, Creatinine Cancelled, Glucose Cancelled, Magnesium Cancelled, Total Bilirubin Cancelled, AST Cancelled, ALT Cancelled, Alkaline Phosphatase Cancelled <Sarah Young - Last Filed: 04/22/21 20:17> Assessment and Plan - Plan Assessment: Acute on chronic hypoxic hypercapnic respiratory failure secondary to end-stage COPD on chronic steroids/oxygen/NIV VIVEK GERD Hypertension Hyperlipidemia Hypothyroidism Plan: Acute on chronic hypoxic hypercapnic respiratory failure secondary to end-stage COPD on chronic steroids/oxygen/NIV: Continue with BiPAP, supplemental oxygen as needed, scheduled nebs, oral steroids, daily ABGs for now. Patient also recently had Covid, will obtain CRP level and provide patient with oral supplements. Patient is DNI, reports her BiPAP is not working at home, patient will need to have this in working order prior to discharge. financial services rep consult in place for additional assistance in this aspect. VIVEK: BiPAP GERD: Continue home meds Hypertension: Continue home meds Hyperlipidemia:Continue home meds Hypothyroidism:Continue home meds DVT PPX: Lovenox Code status: DNI Discharge Plan: Home Plan to discharge in: 48 Hours - Advance Directives Does patient have a Living Will: Yes Does patient have a Durable POA for Healthcare: No - Code Status/Comfort Care Code Status Assessed: Yes (DNI) Critical Care: No Time Spent Managing Pts Care (In Minutes): 55 <Rishi Holt - Last Filed: 04/22/21 02:43> Date of Service: 04/22/21 Subjective: Agree with plan of care as mentioned above. Repeat ABGs Physical Examination: Vitals: Afebrile vital signs are stable Physical exam: Cardiovascular: Within normal limits. Lungs: Within normal limits Abdomen: Within normal limits Neuro: Awake, alert, oriented to person place and time Assessment: 1. Hypercapnic respiratory failure 2. BiPAP malfunction Plan: 1. Continue with current plan of care <Sarah Young - Last Filed: 04/22/21 20:17>
[2021-04-22 02:47] LABS: ALT/SGPT 27 U/L (12-78); AST/SGOT 9 U/L (15-37); Alkaline Phosphatase 59 U/L (45-117); BUN Blood Urea Nitrogen 11 mg/dL (7-18); Bilirubin Direct 0.1 mg/dL (0-0.2); Bilirubin Total 0.4 mg/dL (0.2-1.0); CKMB Creatine Kinase MB 2.1 ng/mL (1.0-3.6); Creatine Phosphokinase 21 U/L (26-192); Glucose Level 151 mg/dL (74-106); Lipase 78 U/L (73-393); Magnesium 2.3 mg/dL (1.8-2.4); NT PRO-BNP 973 pg/mL (<125); Potassium 4.1 mmol/L (3.5-5.1); Protein, Total 6.1 g/dL (6.4-8.2); Sodium Level 145 mmol/L (136-145); Troponin (Emerg Dept Use Only) 0.03 ng/mL (0.0-0.045)
[2021-04-22 02:53] LABS: Bicarbonate 43 mmol/L (21-32)
[2021-04-22 03:07] LABS: Arterial Blood Carboxyhemoglob 1.8 % (0-1.5); Blood O2 Saturation 97.7 % (92-98.5)
[2021-04-22 03:36] LABS: Protime INR 1.02
--- NOTE | 2021-04-22 10:02 | RAD REPORT ---
EXAM DESCRIPTION: RAD - Chest Single View - 04/22/2021 2:23 am CLINICAL HISTORY: SOB Chest pain. COMPARISON: Chest Single View dated 04/17/2021; Chest Single View dated 04/14/2021; Chest Single View dated 04/13/2021; Chest Single View dated 04/09/2021 FINDINGS: Portable technique limits examination quality. Moderate bilateral pulmonary opacities are again seen, appearing mildly progressive since the compara tive chest radiograph. The heart is mildly enlarged in size. No displaced fractures. IMPRESSION: Mild worsening in lung aeration is seen since the comparative study.
[2021-04-22] MEDS: predniSONE 20 MG TAB PO SCH (13:09)
[2021-04-22] MEDS ORDERED: ONDANSETRON 4 MG/2 ML VIAL IV PRN (13:09)
[2021-04-22] MEDS ORDERED: ACETAMINOPHEN 500 MG TAB PO PRN (13:09)
[2021-04-22] MEDS ORDERED: FAMOTIDINE 20 MG TAB PO PRN (13:09)
[2021-04-22] MEDS ORDERED: MELATONIN 5 MG TABLET PO PRN (13:09)
[2021-04-22] MEDS: ALBUTEROL 2.5 MG/3 ML NEB SOL NEB SCH ×2 (14:00→20:10)
[2021-04-22] MEDS: ASPIRIN EC 81 MG TAB PO SCH (14:00)
[2021-04-22] MEDS: ZINC SULFATE 220 MG CAP PO SCH (14:00)
[2021-04-22] MEDS: THIAMINE HCL 100 MG TABLET PO SCH (14:00)
[2021-04-22] MEDS: VITAMIN D 1000 UNIT TAB PO SCH (14:00)
[2021-04-22] MEDS: IPRATROPIUM BROM 0.5MG/2.5ML NEB SCH ×2 (14:00→20:10)
[2021-04-22] MEDS: ENOXAPARIN 40 MG/0.4 ML SQ SCH (14:00)
[2021-04-22] MEDS ORDERED: ZINC SULFATE 220 MG CAP ONE (15:41)
[2021-04-22] MEDS ORDERED: THIAMINE HCL 100 MG TABLET ONE (15:42)
[2021-04-22] MEDS ORDERED: VITAMIN D 1000 UNIT TAB ONE (15:42)
[2021-04-22] MEDS ORDERED: predniSONE 20 MG TAB ONE (15:42)
[2021-04-22] MEDS ORDERED: ASPIRIN EC 81 MG TAB PO ONE (15:42)
[2021-04-22] MEDS ORDERED: ASCORBIC ACID 500 MG TABLET ONE ×2 (15:43→18:42)
[2021-04-22] MEDS ORDERED: ENOXAPARIN 40 MG/0.4 ML SQ ONE (15:43)
[2021-04-22 16:59] VITALS: BMI 44.8
[2021-04-22] MEDS: ASCORBIC ACID 500 MG TABLET PO SCH ×2 (17:00→19:52)
[2021-04-22] MEDS: BENZONATATE 100 MG CAP PO PRN (19:51)
[2021-04-22] MEDS: clonazePAM 0.5 MG TAB PO PRN (19:53)
[2021-04-22] MEDS ORDERED: FUROSEMIDE 40 MG/4 ML VIAL ONE (20:18)
--- NOTE | 2021-04-22 20:21 | P.PN ---
Subjective Date of Service: 04/22/21 Patient is a little lethargic. I will go ahead and repeat ABGs. Review of Systems 10-point ROS is otherwise unremarkable Physical Examination - Vital Signs Temperature: 98.7 F Blood Pressure: 115/63 Pulse: 79 Respirations: 15 Pulse Ox (%): 96 - Physical Exam General: Alert, In no apparent distress, Oriented x3 Respiratory: Diminished Cardiovascular: Regular rate/rhythm, Normal S1 S2, No murmurs Gastrointestinal: Normal bowel sounds, Soft and benign, Non-distended, No tenderness, No rebound, No guarding Musculoskeletal: No clubbing, No swelling, No tenderness Neurological: Sensation intact, Cranial nerves 3-12 intact - Studies Laboratory Data (last 24 hrs) 04/22/21 01:23: PT 12.1, INR 1.02, APTT 28.0 04/22/21 01:23: WBC 5.20 D, Hgb 8.9 L, Hct 28.9 L, Plt Count 143 L D 04/22/21 01:23: Sodium 145, Potassium 4.1, BUN 11, Creatinine 0.54 L, Glucose 151 H, Magnesium 2.3, Total Bilirubin 0.4, AST 9 L, ALT 27, Alkaline Phosphatase 59, Lipase 78 04/22/21 01:10: PT Cancelled, INR Cancelled 04/22/21 01:10: WBC Cancelled, Hgb Cancelled, Hct Cancelled, Plt Count Cancelled 04/22/21 01:10: Sodium Cancelled, Potassium Cancelled, BUN Cancelled, Creatinine Cancelled, Glucose Cancelled, Magnesium Cancelled, Total Bilirubin Cancelled, AST Cancelled, ALT Cancelled, Alkaline Phosphatase Cancelled Medications List Reviewed: Yes Assessment & Plan - Problems (Diagnosis) (1) Dyspnea Onset Date: 09/07/14 Current Visit: No Status: Acute (2) Hypercapnic respiratory failure Onset Date: 10/10/17 Current Visit: No Status: Acute (3) COPD exacerbation Onset Date: 05/30/16 Current Visit: No Status: Acute (4) COVID Current Visit: No Status: Acute (5) Bipolar 1 disorder Onset Date: 09/12/14 Current Visit: No Status: Chronic (6) Hypertension Onset Date: 03/20/17 Current Visit: No Status: Chronic Qualifiers: Hypertension type: essential hypertension Qualified Code(s): I10 - Essential (primary) hypertension (7) Hypothyroidism Onset Date: 09/12/14 Current Visit: No Status: Chronic Qualifiers: (8) Tobacco abuse Onset Date: 03/05/17 Current Visit: No Status: Chronic - Plan PLAN: 1. Continue with BIPAP support 2. Continue with nebs 3, Continue with steroids 4. O2 per protocol 5. CM to assist in arranging for BIPAP repair 6. Repeat ABGs 7. GI/DVT prophylaxis Discharge Plan: Home Plan to discharge in: Greater than 2 days - Advance Directives Does patient have a Living Will: No Does patient have a Durable POA for Healthcare: No - Code Status/Comfort Care Code Status Assessed: Yes Code Status: Full Code Critical Care: No Time Spent Managing PTS Care (In Minutes): 35
[2021-04-22] MEDS: DULERA 200/5 (MOMETASONE/FORMOTEROL) INHALER IH SCH (21:00)
[2021-04-22 21:52] LABS: Arterial Blood Carboxyhemoglob 1.7 % (0-1.5); Blood Gas Oxyhemoglobin 90.5 % (94-97)
[2021-04-23] MEDS: ALBUTEROL 2.5 MG/3 ML NEB SOL NEB SCH ×3 (02:00→14:30)
[2021-04-23] MEDS: IPRATROPIUM BROM 0.5MG/2.5ML NEB SCH ×3 (02:00→14:30)
[2021-04-23 03:56] LABS: Absolute Lymphocytes (CBC) 0.7 K/uL (0.7-4.9); Basophils % 0.2 % (0-1.3); Hematocrit 25.3 % (36.0-45.0); Lymphocytes % 16.3 % (15.3-44.8); MPV 7.5 fL (7.6-11.3); RBC Red Blood Cell Count 2.92 M/uL (3.86-4.86)
[2021-04-23 04:16] LABS: ALT/SGPT 20 U/L (12-78); AST/SGOT 7 U/L (15-37); Albumin 2.6 g/dL (3.4-5.0); Alkaline Phosphatase 51 U/L (45-117); BUN Blood Urea Nitrogen 14 mg/dL (7-18); Bicarbonate 40 mmol/L (21-32); Bilirubin Total 0.4 mg/dL (0.2-1.0); Glucose Level 103 mg/dL (74-106); Potassium 4.3 mmol/L (3.5-5.1); Protein, Total 5.2 g/dL (6.4-8.2); Sodium Level 143 mmol/L (136-145)
[2021-04-23] MEDS: clonazePAM 0.5 MG TAB PO PRN ×3 (04:37→16:39)
[2021-04-23 05:17] LABS: Urine Appearance CLEAR (Clear); Urine Bilirubin NEGATIVE (Negative); Urine Blood NEGATIVE (Negative); Urine Color YELLOW (Yellow); Urine Glucose NEGATIVE (Negative); Urine Protein NEGATIVE (Negative)
[2021-04-23 05:21] LABS: Urine Microscopic Reflex ORDER UMIC
[2021-04-23 05:55] LABS: Urine Bacteria <20 /HPF (<20); Urine RBC <5 /HPF (NONE SEEN); Urine Urothelial Cells <5 /HPF (NONE SEEN)
[2021-04-23] MEDS: DULERA 200/5 (MOMETASONE/FORMOTEROL) INHALER IH SCH ×2 (09:00→20:40)
[2021-04-23] MEDS: ASCORBIC ACID 500 MG TABLET PO SCH ×4 (10:08→20:30)
[2021-04-23] MEDS: VITAMIN D 1000 UNIT TAB PO SCH (10:08)
[2021-04-23] MEDS: ZINC SULFATE 220 MG CAP PO SCH (10:08)
[2021-04-23] MEDS: predniSONE 20 MG TAB PO SCH (10:08)
[2021-04-23] MEDS: BENZONATATE 100 MG CAP PO PRN (10:08)
[2021-04-23] MEDS: ASPIRIN EC 81 MG TAB PO SCH (10:09)
[2021-04-23] MEDS: THIAMINE HCL 100 MG TABLET PO SCH (10:09)
[2021-04-23] MEDS: ENOXAPARIN 40 MG/0.4 ML SQ SCH (10:09)
[2021-04-23] MEDS ORDERED: TRAMADOL HCL 50 MG TAB PO PRN ×2 (10:41→17:01)
[2021-04-23] MEDS: NYSTATIN 500,000 UNIT/5 ML UDC PO SCH ×3 (12:25→20:31)
[2021-04-23] MEDS ORDERED: IPRATROPIUM BROM 0.5MG/2.5ML NEB PRN (17:02)
[2021-04-23] MEDS ORDERED: ALBUTEROL 2.5 MG/3 ML NEB SOL NEB PRN (17:02)
--- NOTE | 2021-04-23 17:03 | P.PN ---
Subjective Date of Service: 04/23/21 Primary Care Provider: Unknown Chief Complaint: Hypoxic hypercapnic respiratory failure Subjective: Improving Physical Examination - Vital Signs Temperature: 97.0 F Blood Pressure: 96/59 Pulse: 87 Respirations: 20 Pulse Ox (%): 91 - Studies Medications List Reviewed: Yes Assessment & Plan Discharge Plan: Home Plan to discharge in: 24 Hours Physician Review Additional Text: COVID: Positive Chest x-ray: Physical exam: General: Alert, In no apparent distress, Oriented x3 Respiratory: Diminished currently on BiPAP Cardiovascular: Regular rate/rhythm, Normal S1 S2, No murmurs Gastrointestinal: Normal bowel sounds, Soft and benign, Non-distended, No tenderness, No rebound, No guarding Musculoskeletal: No clubbing, No swelling, No tenderness Neurological: Sensation intact, Cranial nerves 3-12 intact Impression: Dyspnea secondary to acute on chronic hypercapnic respiratory failure with COPD exacerbation complicated with COVID-19 Bipolar disorder Hypertension Hypothyroidism Obesity, BMI 44.8 Tobacco abuse Anemia of chronic disease Plan: 1. Continue with BIPAP support, spoke with pulmonology concerning patient. Will try to arrange for NIV at home. Once this is arranged then will plan for discharge. Social work to help in this process. 2. Continue with nebs 3, Continue with steroids 4. O2 per protocol 5. strategic alliances manager to help with NIV at home 6. Monitor chest x-ray. 7. Continue with home medications 8. Tobacco cessation addressed in detail CODE STATUS: DO NOT INTUBATE Advance care [id number] minutes: Home at discharge with NIV DVT prophylaxis: Lovenox Time Spent Managing Pts Care (In Minutes): 55
[2021-04-23] MEDS: acetaZOLAMIDE 250 MG TAB PO SCH (20:29)
[2021-04-23] MEDS: GABAPENTIN 300 MG CAP PO SCH (20:31)
[2021-04-23] MEDS ORDERED: ROPINIROLE HCL 1 MG TAB PO SCH (21:00)
[2021-04-23] MEDS ORDERED: ATORVASTATIN 20 MG TAB PO SCH (21:00)
[2021-04-24 04:29] LABS: Absolute Lymphocytes (CBC) 1.5 K/uL (0.7-4.9); Basophils % 0.3 % (0-1.3); Hematocrit 28.1 % (36.0-45.0); Lymphocytes % 34.9 % (15.3-44.8); MPV 7.1 fL (7.6-11.3)
[2021-04-24 05:03] LABS: ALT/SGPT 24 U/L (12-78); AST/SGOT 7 U/L (15-37); Albumin 2.9 g/dL (3.4-5.0); Alkaline Phosphatase 56 U/L (45-117); BUN Blood Urea Nitrogen 13 mg/dL (7-18); Bicarbonate 40 mmol/L (21-32); Bilirubin Total 0.3 mg/dL (0.2-1.0); Ferritin 44.5 ng/mL (8-388); Glucose Level 91 mg/dL (74-106); Potassium 4.2 mmol/L (3.5-5.1); Protein, Total 5.8 g/dL (6.4-8.2); Sodium Level 142 mmol/L (136-145)
[2021-04-24 05:09] LABS: C-Reactive Protein < 2.90 mg/L (<3.00)
--- NOTE | 2021-04-24 07:29 | RAD REPORT ---
EXAM DESCRIPTION: RAD - Chest Single View - 04/24/2021 7:20 am CLINICAL HISTORY: Follow-up respiratory failure COMPARISON: Chest Single View dated 04/22/2021; Chest Single View dated 04/17/2021; Chest Single View d ated 04/14/2021; Chest Single View dated 04/13/2021; Abdomen Pelvis W Contrast dated 03/15/2021 FINDINGS: Mildly worsened aeration in the right lung compared with prior. Bilateral airspace disease again noted. Some of this may be technique related. Cardiomegaly. No fracture identified. IMPRESSION: Question worsening in aeration of the right lung versus increased patient rotation. Aera tion of the left lung is similar 04/22/2021.
[2021-04-24] MEDS ORDERED: ROFLUMILAST 500 MCG TABLET PO SCH (09:00)
[2021-04-24] MEDS ORDERED: PANTOPRAZOLE 40MG TABLET PO SCH (09:00)
[2021-04-24] MEDS: DULERA 200/5 (MOMETASONE/FORMOTEROL) INHALER IH SCH ×2 (09:00→09:49)
[2021-04-24] MEDS: ASCORBIC ACID 500 MG TABLET PO SCH ×2 (09:47→12:43)
[2021-04-24] MEDS: VITAMIN D 1000 UNIT TAB PO SCH (09:47)
[2021-04-24] MEDS: ASPIRIN EC 81 MG TAB PO SCH (09:47)
[2021-04-24] MEDS: NYSTATIN 500,000 UNIT/5 ML UDC PO SCH ×2 (09:47→12:43)
[2021-04-24] MEDS: GABAPENTIN 300 MG CAP PO SCH (09:48)
[2021-04-24] MEDS: acetaZOLAMIDE 250 MG TAB PO SCH (09:48)
[2021-04-24] MEDS: THIAMINE HCL 100 MG TABLET PO SCH (09:48)
[2021-04-24] MEDS: ENOXAPARIN 40 MG/0.4 ML SQ SCH (09:48)
[2021-04-24] MEDS: ZINC SULFATE 220 MG CAP PO SCH (09:49)
[2021-04-24] MEDS: predniSONE 20 MG TAB PO SCH (09:49)
--- NOTE | 2021-04-24 13:23 | P.DS ---
Admission Date: 04/22/21 Discharge Date: 04/24/21 Primary Care Provider: Unknown Disposition: DC HOME/HOME HEALTH CARE Discharge Condition: GOOD Reason for Admission: Hypoxic hypercapnic respiratory failure Consultations: PulmonologyDr. Reece Procedures: COVID: Positive Chest x-ray: COMPARISON: Chest Single View dated 04/17/2021; Chest Single View dated 04/14/2021; Chest Single View dated 04/13/2021; Chest Single View dated 04/09/2021 FINDINGS: Portable technique limits examination quality. Moderate bilateral pulmonary opacities are again seen, appearing mildly progressive since the comparative chest radiograph. The heart is mildly enlarged in size. No displaced fractures. IMPRESSION: Mild worsening in lung aeration is seen since the comparative study. Follow-up chest x-ray: COMPARISON: Chest Single View dated 04/22/2021; Chest Single View dated 04/17/2021; Chest Single View dated 04/14/2021; Chest Single View dated 04/13/2021; Abdomen Pelvis W Contrast dated 03/15/2021 FINDINGS: Mildly worsened aeration in the right lung compared with prior. Bilateral airspace disease again noted. Some of this may be technique related. Cardiomegaly. No fracture identified. IMPRESSION: Question worsening in aeration of the right lung versus increased patient rotation. Aeration of the left lung is similar 04/22/2021. Medical problem list: Dyspnea secondary to acute on chronic hypercapnic respiratory failure with COPD exacerbation complicated with COVID-19 Bipolar disorder Obesity, BMI 44.8 Tobacco abuse Anemia of chronic disease Brief History of Present Illness: 60-year-old female with history of end-stage COPD on home oxygen/NIV/chronic steroid therapy, obstructive sleep apnea, hypothyroidism, GERD presents the emergency department for shortness of breath. Patient reports that she has her BiPAP machine at home but it has not been working, upon arrival patient was 86% on her home oxygen without the NIV. Patient was evaluated in the emergency department, ABG demonstrated patient was hypercapnic with CO2 of 112, pH of 7.1. Chest x-ray does not look significantly different in comparison, otherwise vital signs are stable, patient tolerating BiPAP well at this time. Patient was admitted for further evaluation and treatment. Hospital Course: Patient presented with dyspnea secondary to acute on chronic hypercapnic respiratory failure with COPD exacerbation complicated with COVID-19. Patient had reported that her noninvasive ventilator was not properly working. Patient required treatment. During the course of her stay patient improved with IV steroids. Pulmonology was consulted. Social work helped arrange for her NIV to be reevaluated at home. Her machine was evaluated and adjusted appropriately. New tubing was provided. At discharge patient back to baseline. At discharge she will continue with prednisone 20 mg 1 pill twice daily for 7 days then 1 pill daily. Patient will continue with her NIV as directed. Patient to continue with home oxygen to maintain sats above 93%. At discharge she will continue with her COPD medication including Anoro 1 puff daily, ProAir 2 puffs 3 times a day as needed for shortness of breath and Daliresp 500 mcg 1 pill daily. Patient will continue with her other medications including Diamox 250 mg 1 pill twice daily. Recommend to recheck labBMP within 1 week. For her Covid infection the patient will continue with vitamin D supplementation daily, vitamin C 500 mg 3 times a day, thiamine 100 mg 1 pill twice daily, zinc 220 mg daily, Tessalon Perles 100 mg 3 times a day as needed for cough and Zyrtec 10 mg daily. Patient will continue with incentive spirometer, proning, COVID-19 isolation, facemask use and handwashing. Recommend follow-up with pulmonology in 1 week to follow-up his hospitalization. Patient will need to have her NIV further monitored and assessed appropriately by the NIV therapy company to ensure stability. Patient with other medical problems including bipolar disorder, obesity, tobacco abuse and anemia of chronic disease. Patient will continue with her other medications including gabapentin 300 mg 1 pill twice daily, Lipitor 20 mg daily, Requip 1 mg at bedtime. Recommend follow-up with PCP in 1 week to follow-up his hospitalization and continue her care. Vital Signs/Physical Exam: Temp Pulse Resp BP Pulse Ox 97.8 F 77 32 H 124/50 L 94 04/24/21 08:00 04/24/21 08:00 04/24/21 08:00 04/24/21 08:00 04/24/21 08:00 General: Alert, In no apparent distress, Oriented x3, Cooperative HEENT: Atraumatic Neck: Supple Respiratory: Clear to auscultation bilaterally, Normal air movement, Other (Currently on nasal cannula) Cardiovascular: Normal pulses, Regular rate/rhythm Gastrointestinal: Normal bowel sounds, No tenderness, No masses, No rebound, No guarding Musculoskeletal: No erythema, No tenderness, No warmth Integumentary: No tenderness/swelling Neurological: Normal speech, Normal strength at 5/5 x4 extr, Normal tone, Normal affect Laboratory Data at Discharge: WBC 4.20 K/uL (4.3-10.9) L 04/24/21 04:07 Hgb 8.6 g/dL (12.0-15.0) L 04/24/21 04:07 Hct 28.1 % (36.0-45.0) L 04/24/21 04:07 Plt Count 173 K/uL (152-406) D 04/24/21 04:07 PT 12.1 SECONDS (9.2-12.8) 04/22/21 01:23 INR 1.02 04/22/21 01:23 APTT 28.0 SECONDS (21.7-34.4) 04/22/21 01:23 Sodium 142 mmol/L (136-145) 04/24/21 04:07 Potassium 4.2 mmol/L (3.5-5.1) 04/24/21 04:07 BUN 13 mg/dL (7-18) 04/24/21 04:07 Creatinine 0.54 mg/dL (0.55-1.3) L 04/24/21 04:07 Glucose 91 mg/dL (74-106) 04/24/21 04:07 Magnesium 2.3 mg/dL (1.8-2.4) 04/22/21 01:23 Total Bilirubin 0.3 mg/dL (0.2-1.0) 04/24/21 04:07 AST 7 U/L (15-37) L 04/24/21 04:07 ALT 24 U/L (12-78) 04/24/21 04:07 Alkaline Phosphatase 56 U/L (45-117) 04/24/21 04:07 Lipase 78 U/L (73-393) 04/22/21 01:23 Home Medications: Atorvastatin Calcium [Lipitor*] 20 mg PO BEDTIME 10/23/20 Gabapentin 300 mg PO BID 10/23/20 Roflumilast [Daliresp*] 500 mcg PO DAILY 10/23/20 Umeclidinium Brm/Vilanterol Tr [Anoro Ellipta 62.5-25 Mcg INH] 1 puff IN DAILY 10/23/20 clonazePAM [Klonopin*] 0.5 mg PO DAILY PRN 10/23/20 Tramadol HCl [Ultram] 50 mg PO TID PRN 30 Days #60 tablet 11/21/20 Pantoprazole [Protonix Tab*] 40 mg PO DAILY 02/14/21 Ropinirole HCl [Requip*] 1 mg PO BEDTIME 02/14/21 Ascorbic Acid [Vitamin C*] 500 mg PO QID #120 tablet 04/18/21 Benzonatate [Tessalon Perle*] 100 mg PO TID PRN #30 cap 04/18/21 Cetirizine HCl [Zyrtec*] 10 mg PO DAILY PRN #30 tablet 04/18/21 Cholecalciferol (Vitamin D3) [Vitamin D 5,000 IU Cap*] 5,000 unit PO DAILY #30 cap 04/18/21 Thiamine HCl [Vitamin B-1*] 200 mg PO DAILY #60 tablet 04/18/21 Zinc Sulfate [Zinc Sulfate*] 220 mg PO DAILY #30 cap 04/18/21 acetaZOLAMIDE [Diamox*] 250 mg PO BID #60 tab 04/18/21 Albuterol Sulfate [Proair Hfa] 1 puff IH TID PRN #1 04/24/21 predniSONE [Prednisone*] 20 mg PO SEECOM #21 tab 04/24/21 New Medications: predniSONE [Prednisone*] 20 mg PO SEECOM #21 tab Albuterol Sulfate [Proair Hfa] 1 puff IH TID PRN #1 PRN Reason: shortness of breath Physician Discharge Instructions: Follow up with Pulmonary in one week to follow up hospitalization. Continue with Home oxygen to maintain sats above 93% Continue with NIV at home as directed. Continue with Prednisone 20 mg one pill twice daily for 7 days then one pill daily for 7 days. Continue with Anoro one puff daily, Proair 2 puffs three times a day as needed for SOB, and Daliresp 500 mcg one pill daily. Continue with Diamox 250 mg one pill twice daily. Recheck Lab-BMP in one week COntinue with other meds including: Vitamin D, Vitamin C, Thiamine, Zinc, Tessalon, and Zyrtec. COntinue with Gabapentin 300 mg one pill twice daily. COntinue with Lipitor 20 mg daily. COntinue with Requip 1 mg every bedtime. Follow up with PCP in one week to follow up hospitalization. COntinue with Home health and PT at home. PCP to further monitor and adjust. Diet: AHA Activity: Fall precautions Followup: NONE,NONE [Primary Care Provider] - Time spent managing pt's care (in minutes): 55
[2021-04-24 13:46] VITALS: BP 118/53; TEMP 97.6
[2021-04-24 15:58] VITALS: O2SAT 91
== END 2021-04-24 16:10 | disposition home health service (06) | DRG 189 ==
LOC: ER 00:23 → ERHOLD 02:37 → 4TH 18:58
PROVIDERS: ADMIT Hospitalist; ATTEND Hospitalist
PROC: 5A09357 Assistance with Respiratory Ventilation, Less than 24 Consecutive Hours, Continuous Positive Airway Pressure (ICD-10-PCS; principal; 2021-04-22)
DX: J96.22 Acute and chronic respiratory failure with hypercapnia (principal); U07.1 COVID-19; J44.1 Chronic obstructive pulmonary disease with (acute) exacerbation; Z68.41 Body mass index [BMI] 40.0-44.9, adult; F31.9 Bipolar disorder, unspecified; E66.9 Obesity, unspecified; D63.8 Anemia in other chronic diseases classified elsewhere; E03.9 Hypothyroidism, unspecified; G47.33 Obstructive sleep apnea (adult) (pediatric); K21.9 Gastro-esophageal reflux disease without esophagitis; I10 Essential (primary) hypertension; F17.210 Nicotine dependence, cigarettes, uncomplicated; Z99.81 Dependence on supplemental oxygen
CPT/HCPCS: 36415; 71045; 80048; 80053; 80076; 81003; 81015; 82550; 82553; 82728; 82805; 83690; 83735; 83880; 84484; 85025; 85610; 85730; 86140; 87040; 87077; 87086; 87088; 87186; 87205; 94640; 94660; 94760; 96361; 96374; 99284; J1650; J1940; J2930; J7030; J7512; J7606; U0003

== ENCOUNTER 2021-05-08 14:07 | Inpatient (IN) | payer OTHER ==
--- OUTSIDE RECORDS SUMMARY | 2021-05-08 14:12 | XMS REPORT | Continuity of Care Document ---
:1960 Author Organization [facility] Address [address] [place] [address] Care Team Providers Name Role Phone Doctor [...] Clinician Date Tobacco Tobacco Disease Active [facility] St [facility] 00 [place] Hypoxemia Hypoxemia Disease Active [facility] 00 [place] COPD COPD Disease Active [facility] exacerbati exacerbati 6 Pema kes - on on 00:00: Medical 00 [place] Acute Acute Disease Active [facility] hypercapni hypercapni 6- Pema kes - c c 00:00: Medical respirator respirator 00 Ce nter y failure y failure Allergies, Adverse Reactions, Alerts This patient has no known allergies or adverse reactions. Social History Social Habit Start Date Stop Date Quantity Comments Source Sex Assigned At [facility] Medications Ordered Filled Start Stop Current [...] ID 2021-01-25 2021-01-25 Orders Doctor NESS 1.2.840.114 [id number] 00:00:00 00:00:00 Only UnassignedVIRGILIO [id number] [place] [facility] 4.2.7.2.686 [id number] 2021-01-15 2021-01-15 Orders Doctor NESS 1.2.840.114 [id number] 00:00:00 00:00:00 Only UnassignedVIRGILIO [id number] [place] [facility] 4.2.7.2.686 [id number] 2020-11-17 2020-11-17 DEEDEE Oliva 1.2.840.114 [id number] 00:00:00 00:00:00 Management [place] [facility] [id number] [place] 42.7.2.686 C[facility] [phone] [facility] 2020-11-17 2020-11-17 Transition Molly Hernandez 1.2.840.114 [id number] 00:00:00 00:00:00 of Care Viviana Person Aram [id number] [place] 4.2.7.2.686 [id number] 2020-11-12 2020-11-16 [facility] Jeronimo Hogue 1.2.840.1 14 [id number] 18:33:00 16:20:00 Encounter [id number] 4.2.7[facility]2.686 Sammie Tarango [phone] Nash Brenner [address] Almaraz MorenoNash Harris Krishna Moreno 2020-11-14 2020-11-14 Telephone [facility] 1.2.840.114 [id number] 00:00:00 00:00:00 MAXI baker [id number] [facility] 4.2.7.2.686 CENTER AT [phone] [facility] [address] [place] [address] 2020-11-13 2020-11-13 Transition Molly Verdugo 1.2.840.114 [id number] 00:00:00 00:00:00 of Care Lizbeth Aram [id number] [place] 4.2.7.2.686 [id number] 2020-11-07 2020-11-11 [facility] Jeronimo Hogue [facility] 1.2.840.1 14 [id number] 06:48:00 14:50:00 Encounter Adán Pelayo [id number] Jeronimo Hogue 4.2.7.2.686 Adán Pelayo [place] [phone] [id number] 2020-07-12 2020-07-12 [facility] 1.2.840.114 [id number] 11:56:24 23:59:00 Encounter samuel, Pediatric 350.1.13.10 Shibi s and 4.2.7.2.686 Adult [phone] Primary [address] [place] [address] Clinic 2020-07-12 2020-07-12 Office Hillary Ybarra 1.2.840.114 [id number] 11:00:10 13:58:54 Visit samuel Pediatric 350.1.13.10 Sh[place] s and 4.2.7.2.686 Adult [phone] Primary [address] [place] [address] 2020-07-03 2020-07-03 Orders Doctor THI 1.2.840.114 [id number] 00:00:00 00:00:00 Only Unassigned, VIRGILIO 350.1.13.10 [place] [facility] 4.2.7.2.686 [id number] Results Test Description Test Time Test [...] NOT 1092) ACCURATE CRE ATININE CLEARANCE IN TN EDICTING GLOMERULAR FILT RATION RATE. ESTIMATED GFR [...] 0-0 (AKER) (test code = 413) 0.00POCT-GLUCOSE [id number] 17:50:00 Test Item Value Reference Range Interpretation Comments POC-GLUCOSE METER 118 mg/dL 70-110 H TESTED AT [place] [address] ([facility]) (test code = KISHA Pabon [facility] 1538) [id number] POCT-GLUCOSE [id number] 11:59:00 Test Item Value Reference Range Interpretation Comments POC-GLUCOSE METER 247 mg/dL 70-110 H TESTED AT [place] [address] ([facility]) (test code = [facility] 1538) [id number] POCT-GLUCOSE [id number] 07:54:00 Test Item Value Reference Range Interpretation Comments POC-GLUCOSE METER 141 mg/dL 70-110 H TESTED AT [place] [address] ([facility]) (test code = [facility] 1538) [address] CBC W/PLT COUNT & AUTO [id number] 03:45:00 Test Item Value Reference Range Interpretation Comments WHITE BLOOD CELL COUNT ([facility]) 4.9 K/ L 4.0-10.0 (test code = [...] K/ L 0.00-0.20 (test code = 417) [id number] 03:29:00 Test Item Value Reference Range Interpretation Comments MAGNESIUM (BEAKER) 1.8 mg/dL 1.6-2.6 Specimen slightly (test code = 627) hemolyzed BASIC METABOLIC [id number] 03:29:00 Test Item Value Reference Range Interpretation [...] NOT APPLICABLE FOR DIALYSIS PATIEN TS. POCT-GLUCOSE [id number] 00:05:00 Test Item Value Reference Range Interpretation Comments POC-GLUCOSE METER 117 mg/dL 70-110 H TESTED AT [facility] 67 ([facility]) (test code = [facility] 1538) [address] POCT-GLUCOSE [id number] 18:17:00 Test Item Value Reference Range Interpretation Comments POC-GLUCOSE METER 141 mg/dL 70-110 H TESTED AT [facility] 6720 ([facility]) (test code = [facility] 1538) [address] CREATINE KINASE (CK), TOTAL AND [id number] 15:43:00 Test Item Value Reference Range Interpretation Comments CREATINE KINASE TOTAL (BEAKER) 31 U/L 29-200 (test code = 380) CREATINE KINASE-MB (BEAKER) (test 1.3 ng/mL 0.0-6.6 code = 750) CREATINE KINASE-MB INDEX (BEAKER) 4.2 % (test code = 395) Effective 08/09/2014: CK-MB Reference Range ChangeNew: 0.0-6.6 Previous: 0.0-4.9CK-MB Reference Range:<6.7 Normal6.7-10.0 Borderline>10.0 AbnormalBLOOD GAS, [id number] 15:26:00 Test Item Value Reference Range Interpretation [...] (test code = 1819) 35.0 % POCT-GLUCOSE [id number] 11:45:00 Test Item Value Reference Range Interpretation Comments POC-GLUCOSE METER 122 mg/dL 70-110 H TESTED AT [facility] 6720 (BEAKER) (test code = KISHA GARCÍA [place] 1538) [address] CREATINE KINASE (CK), TOTAL AND [id number] 10:29:00 Test Item Value Reference Range Interpretation Comments CREATINE KINASE TOTAL (BEAKER) 31 U/L 29-200 (test code = 380) CREATINE KINASE-MB (BEAKER) (test 1.5 ng/mL 0.0-6.6 code = 750) CREATINE KINASE-MB INDEX (BEAKER) 4.8 % (test code = 395) Effective 08/09/2014: CK-MB Reference Range ChangeNew: 0.0-6.6 Previous: 0.0-4.9CK-MB Reference Range:<6.7 Normal6.7-10.0 Borderline>10.0 AbnormalTROPONIN [id number] 10:29:00 Test Item Value Reference Range Interpretation [...] renalfailure, acidosis, acute neurological disease, and persistent tachyarrhythmia.[id number] 10:22:00 Test Item Value Reference Range Interpretation Comments PARTIAL THROMBOPLASTIN TIME 22.5 seconds 22.5-36.0 (BEAKER) (test code = 760) PROTHROMBIN [id number] 10:21:00 Test Item Value Reference Range Interpretation Comments PROTIME (BEAKER) (test code = 12.4 seconds 11.7-14.7 759) INR (BEAKER) (test code = 370) 0.9 <=5.9 RECOMMENDED COUMADIN/WARFARIN INR THERAPY RANGESSTANDARD DOSE: 2.0 - 3.0 Includes: PROPHYLAXIS forvenous thrombosis, systemic embolization; TREATMENT for venous thrombosis and/or pulmonary embolus.HIGH RISK: Target INR is 2.5-3.5 for patients with mechanical heart valves.BLOOD GAS, [id number] 10:17:00 Test Item Value Reference Range Interpretation [...] (test code = 1819) 40.0 % PLATELET [id number] 10:13:00 Test Item Value Reference Range Interpretation Comments PLATELET COUNT (BEAKER) (test 111 K/CU MM 150-430 L code = 756)
[2021-05-08 15:15] LABS: Absolute Lymphocytes (CBC) 1.4 K/uL (0.7-4.9); Basophils % 0.5 % (0-1.3); Lymphocytes % 19.4 % (15.3-44.8); MPV 7.4 fL (7.6-11.3)
[2021-05-08 15:17] LABS: Protime INR 1.2
--- NOTE | 2021-05-08 15:39 | RAD REPORT ---
EXAM DESCRIPTION: RAD - Chest Single View - 05/08/2021 3:23 pm CLINICAL HISTORY: COVID positive;Cough COMPARISON: Chest Single View dated 04/24/2021; Chest Single View dated 04/22/2021; Chest Single View da sarah 04/17/2021; Chest Single View dated 04/14/2021 FINDINGS: Diffuse prominence of the pulmonary interstitium as well as other scattered airspace opaci ties. Cardiomegaly.No acute osseous abnormality. Difficult to exclude small effusions. IMPRESSION: Diffuse prominence of the pulmonary interstitium as well as scattered airspace disease m ay reflect multifocal pneumonia and/or edema.
[2021-05-08 15:41] LABS: BUN Blood Urea Nitrogen 10 mg/dL (7-18); Bicarbonate 40 mmol/L (21-32); Glucose Level 100 mg/dL (74-106); NT PRO-BNP 486 pg/mL (<125); Potassium 4.2 mmol/L (3.5-5.1); Sodium Level 140 mmol/L (136-145); Troponin (Emerg Dept Use Only) < 0.02 ng/mL (0.0-0.045)
[2021-05-08] MEDS ORDERED: FUROSEMIDE 20 MG/ 2ML VIAL ONE (16:15)
[2021-05-08] MEDS ORDERED: KETOROLAC 30 MG/ML INJ ONE (16:15)
--- NOTE | 2021-05-08 16:47 | ER ---
Nurse's Notes [facility] Name: Vikki Zamudio Age: 60 yrs Sex: Female : 1960 Arrival Date: 05/08/2021 Time: 14:15 Bed 17 Private MD: Diagnosis: Acute and chronic respiratory failure with hypoxia;Acute on chronic systolic (congestive) heart failure Presentation: 05/08 14:28 Chief complaint: EMS states: Worsening SOB, pain with breathing, and sore throat x 1 hb week. Recently inpatient > 1 month with COVID. SpO2 72% on 2LNC, improved to 78% on 5LNC. Coronavirus screen: Client presents with at least one sign or symptom that may indicate coronavirus-19. Standard/surgical mask placed on the client. Provider contacted for isolation considerations. Ebola Screen: No symptoms or risks identified at this time. Risk Assessment: Do you want to hurt yourself or someone else? Patient reports no desire to harm self or others. Onset of symptoms was May 01, 2021. 14:28 Method Of Arrival: EMS: [facility] 14:28 Acuity: LIZETH 2 hb Historical: - Allergies: 14:32 Codeine; hb - Home Meds: 14:32 acetazolamide 125 mg Oral tab 1 tab once daily [Active]; Albuterol Inhl [Active]; Anoro hb Ellipta 62.5-25 mcg/actuation inhalation dsdv 1 puff once daily [Active]; aspirin 81 mg Oral TbEC 1 tab once daily [Active]; atorvastatin 20 mg Oral tab 1 tab once daily [Active]; carvedilol 6.25 mg Oral tab 1 tab 2 times per day [Active]; clonazepam 0.5 mg Oral tab 1 tab daily [Active]; cyclobenzaprine 5 mg Oral tab 1 tab nightly [Active]; Daliresp 500 mcg Oral tab 1 tab once daily [Active]; fluticasone 50 mcg/actuation nasal spsn 1 spray once daily [Active]; furosemide 20 mg Oral tab 1 tab once daily [Active]; latanoprost 0.005 % ophthalmic drop 1 drop once daily [Active]; levothyroxine 88 mcg tab 1 tab once daily [Active]; Nicoderm CQ 21 mg/24 hr transdermal pt24 1 patch once daily [Active]; prednisone 20 mg Oral tab 1 tab 2 times per day [Active]; Tessalon Perles 100 mg Oral cap 1 cap 3 times per day [Active]; - PMHx: 14:32 COPD; GERD; High Cholesterol; CHF; Hypercarbia; Hypertension; Hypothyroidism; Panic hb Attacks; Sleep Apnea; - Immunization history:: Client reports having NOT received the Covid vaccine. - Social history:: Smoking status: Patient/guardian denies using tobacco, the patient reports quitting approximately 8 years ago. Screenin:35 Abuse screen: Denies threats or abuse. Denies injuries from another. Nutritional hb screening: No deficits noted. Tuberculosis screening: No symptoms or risk factors identified. Fall Risk Total Resendiz Fall Scale indicates Low Risk Score (25-44 pts). Fall prevention measures have been instituted. Side Rails Up X 2 Frequent Obs/Assesments occuring As available Patient and Family Educated on Fall Prevention Program and strategies. Assessment: 14:35 General: Appears mild distress noted. Behavior is cooperative. Pain: Pain currently is hb 10 out of 10 on a pain scale. Neuro: Level of Consciousness is awake, alert, obeys commands, Oriented to person, place, time, situation. Cardiovascular: Patient's skin is warm and dry. Rhythm is regular. Respiratory: Reports shortness of breath at rest on exertion cough that is productive, Airway is patent Respiratory effort is labored, Respiratory pattern is regular, symmetrical. GI: No signs and/or symptoms were reported involving the gastrointestinal system. : No signs and/or symptoms were reported regarding the genitourinary system. EENT: No signs and/or symptoms were reported regarding the EENT system. Derm: Skin is pink, warm \T\ dry. Musculoskeletal: No signs and/or symptoms reported regarding the musculoskeletal system. 15:30 Reassessment: Patient appears in no apparent distress at this time. No changes from hb previously documented assessment. Patient and/or family updated on plan of care and expected duration. Pain level reassessed. 16:30 Reassessment: Patient appears in no apparent distress at this time. No changes from hb previously documented assessment. Patient and/or family updated on plan of care and expected duration. Pain level reassessed. 17:51 Reassessment: Patient appears in no apparent distress at this time. No changes from hb previously documented assessment. Patient and/or family updated on plan of care and expected duration. Pain level reassessed. Vital Signs: 14:28 BP 126 / 53; Pulse 77; Resp 28; Temp 98.7; Pulse Ox 81% on 4 lpm NC; Pain 10/10; hb 14:58 BP 96 / 68; Pulse 71; Resp 24; Pulse Ox 95% on 4 lpm NC; hb 15:45 BP 110 / 70; Pulse 86; Resp 32; Pulse Ox 94% 4 lpm ; Pain 9/10; hb 16:30 BP 126 / 61; Pulse 65; Resp 20; Pulse Ox 94% on 4 lpm NC; hb 17:52 BP 106 / 64; Pulse 74; Resp 19; Pulse Ox 86% on 4 lpm NC; hb ED Course: 14:15 Patient arrived in ED. iw 14:28 Emelia Aburto, RN is Primary Nurse. hb 14:29 Kaila Howard is Attending Physician. sp3 14:31 Triage completed. hb 14:32 Arm band placed on. hb 14:35 Patient has correct armband on for positive identification. Bed in low position. Call hb light in reach. Side rails up X2. 14:52 Inserted saline lock: 22 gauge in right antecubital area, using aseptic technique. hb Blood collected. 15:00 account review specialist on. Pulse ox on. NIBP on. hb 15:23 XRAY Chest (1 view) In Process Unspecified. EDMS 16:26 EKG done, by ED staff, reviewed by Kaila Howard. dh3 16:46 El An MD is Hospitalizing Provider. sp3 18:25 No provider procedures requiring assistance completed. Patient admitted, IV remains in hb place. Administered Medications: 15:55 Drug: Lasix (furosemide) 20 mg Route: IVP; Site: right antecubital; iw 15:55 Drug: Ketorolac 15 mg Route: IVP; Site: right antecubital; iw 17:04 Drug: morphine 4 mg Route: IVP; Site: Other; hb 17:52 Follow up: Response: No adverse reaction hb Outcome: 16:47 Decision to Hospitalize by Provider. sp3 18:25 Admitted to ER Hold. Please see [facility] for further documentation. hb 18:25 Condition: stable 18:25 Instructed on the need for admit, Demonstrated understanding of instructions. 23:39 Patient left the ED. mw2 Signatures: Dispatcher [employer] EDTreva Christiansen, RN DULCE Emelia Aburto RN RN Azra Joseph 3 Renard Lei 2 Kaila Howard sp3 Corrections: (The following items were deleted from the chart) 17:52 15:30 Reassessment: Patient appears in no apparent distress at this time. Patient hb and/or family updated on plan of care and expected duration. Pain level reassessed. Patient is alert, oriented x 3, equal unlabored respirations, skin warm/dry/pink. 17:52 16:30 Reassessment: Patient appears in no apparent distress at this time. Patient hb and/or family updated on plan of care and expected duration. Pain level reassessed. Patient is alert, oriented x 3, equal unlabored respirations, skin warm/dry/pink. hb
--- NOTE | 2021-05-08 16:47 | EDPHYS ---
Physician Documentation [facility] Name: Vikki Zamudio Age: 60 yrs Sex: Female : 1960 Arrival Date: 05/08/2021 Time: 14:15 Bed 17 Private MD: ED Physician Kaila Howard HPI: 05/08 16:06 This 60 yrs old Female presents to ER via EMS with complaints of Shortness Of sp3 Breath, Sore Throat. 16:06 60-year-old female well-known to the emergency department with a history of CHF, COPD, sp3 hypertension, hyperlipidemia, and recent extended stay for hypoxia secondary to COVID-19 now presents to the ED for repeat shortness of breath and dyspnea on exertion brought in by EMS. In route patient had room air pulse ox of 76% on patient's 2 L which came up once patient was placed on 6 L to the low 90s. Patient does have home O2 and can have a maximum flow of 5 L at home per her recollection. Patient denies fever, chest pain, back pain, headache, syncope, nausea, vomiting, diarrhea, sputum production, rash, any other ROS at this time.. Historical: - Allergies: 14:32 Codeine; hb - Home Meds: 14:32 acetazolamide 125 mg Oral tab 1 tab once daily [Active]; Albuterol Inhl [Active]; Anoro hb Ellipta 62.5-25 mcg/actuation inhalation dsdv 1 puff once daily [Active]; aspirin 81 mg Oral TbEC 1 tab once daily [Active]; atorvastatin 20 mg Oral tab 1 tab once daily [Active]; carvedilol 6.25 mg Oral tab 1 tab 2 times per day [Active]; clonazepam 0.5 mg Oral tab 1 tab daily [Active]; cyclobenzaprine 5 mg Oral tab 1 tab nightly [Active]; Daliresp 500 mcg Oral tab 1 tab once daily [Active]; fluticasone 50 mcg/actuation nasal spsn 1 spray once daily [Active]; furosemide 20 mg Oral tab 1 tab once daily [Active]; latanoprost 0.005 % ophthalmic drop 1 drop once daily [Active]; levothyroxine 88 mcg tab 1 tab once daily [Active]; Nicoderm CQ 21 mg/24 hr transdermal pt24 1 patch once daily [Active]; prednisone 20 mg Oral tab 1 tab 2 times per day [Active]; Tessalon Perles 100 mg Oral cap 1 cap 3 times per day [Active]; - PMHx: 14:32 COPD; GERD; High Cholesterol; CHF; Hypercarbia; Hypertension; Hypothyroidism; Panic hb Attacks; Sleep Apnea; - Immunization history:: Client reports having NOT received the Covid vaccine. - Social history:: Smoking status: Patient/guardian denies using tobacco, the patient reports quitting approximately 8 years ago. ROS: 16:08 Eyes: Negative for injury, pain, redness, and discharge, ENT: Negative for injury, sp3 pain, and discharge, Neck: Negative for injury, pain, and swelling, Abdomen/GI: Negative for abdominal pain, nausea, vomiting, diarrhea, and constipation, Back: Negative for injury and pain, Skin: Negative for injury, rash, and discoloration, Neuro: Negative for headache, weakness, numbness, tingling, and seizure, Endocrine: Negative for neck swelling, polydipsia, polyuria, polyphagia, and marked weight changes, Hematologic/Lymphatic: Negative for swollen nodes, abnormal bleeding, and unusual bruising. 16:08 Constitutional: Positive for fatigue, malaise, Negative for body aches, chills, fever. 16:08 Cardiovascular: Positive for edema, Negative for chest pain, palpitations, acute changes. 16:08 Respiratory: Positive for dyspnea on exertion, shortness of breath, Negative for hemoptysis, pleurisy, wheezing, acute changes. Exam: 16:09 Constitutional: This is a well developed, well nourished patient who is awake, alert, sp3 and in no acute distress. Head/Face: Normocephalic, atraumatic. Eyes: Pupils equal round and reactive to light, extra-ocular motions intact. Lids and lashes normal. Conjunctiva and sclera are non-icteric and not injected. Cornea within normal limits. Periorbital areas with no swelling, redness, or edema. Neck: Trachea midline, no thyromegaly or masses palpated, and no cervical lymphadenopathy. Supple, full range of motion without nuchal rigidity, or vertebral point tenderness. No Meningismus. Chest/axilla: Normal chest wall appearance and motion. Nontender with no deformity. No lesions are appreciated. Cardiovascular: Regular rate and rhythm with a normal S1 and S2. No gallops, murmurs, or rubs. Normal PMI, no JVD. No pulse deficits. 16:09 Respiratory: mild respiratory distress is noted, Respirations: Breath sounds: rales, are heard diffusely, rhonchi, are heard diffusely. Vital Signs: 14:28 BP 126 / 53; Pulse 77; Resp 28; Temp 98.7; Pulse Ox 81% on 4 lpm NC; Pain 10/10; hb 14:58 BP 96 / 68; Pulse 71; Resp 24; Pulse Ox 95% on 4 lpm NC; hb 15:45 BP 110 / 70; Pulse 86; Resp 32; Pulse Ox 94% 4 lpm ; Pain 9/10; hb 16:30 BP 126 / 61; Pulse 65; Resp 20; Pulse Ox 94% on 4 lpm NC; hb 17:52 BP 106 / 64; Pulse 74; Resp 19; Pulse Ox 86% on 4 lpm NC; hb MDM: 14:29 Patient medically screened. sp3 16:10 ED course: Patient on a 6 L O2 requirement and x-ray demonstrates bilateral pulmonary sp3 edema pattern with possible underlying opacities representing pneumonia although clinically less likely. Patient already has had COVID-19. At this point given her mild elevation in BNP, we will give 20 mL of Lasix IV and placed under status with the hospitalist to monitor O2 requirement and delineate patient's true reason for hypoxia which at this point is likely CHF in etiology.. 16:14 ED course: This patient likely has a multietiology aspect to her hypoxia with currently sp3 COPD and CHF as lead contributors. Given that she already has had COVID-19 and an extensive stay, this is less likely Covid but could still be lingering manifestations from that. She has had multiple admissions in the past for dyspnea and this is proving to be a chronic problem for her. Given her current oxygen state and tri-factor aspect of her symptoms, we will again admit patient to the hospitalist service for ultimate diuresis and delineation of her hypoxia. Repeat EKG is also pending. Patient is in no acute distress does receive ketorolac 50 mg for generalized pain and 20 mg of Lasix IV.. 16:43 ED course: Initial EKG demonstrated lots of motion artifact therefore repeat EKG was sp3 ordered. EKG at 1623 demonstrates normal sinus rhythm at 82 bpm with normal intervals normal QRS normal axis and normal ST/T-segment with mild sinus arrhythmia. Patient does not have atrial fibrillation or atrial flutter.. 05/08 14:31 Order name: Basic Metabolic Panel 3 05/08 14:31 Order name: CBC with Diff sp3 05/08 14:31 Order name: NT PRO-BNP; Complete Time: 15:42 3 05/08 14:31 Order name: PT-INR; Complete Time: 15:42 3 05/08 14:31 Order name: Troponin (emerg Dept Use Only); Complete Time: 15:42 3 05/08 14:32 Order name: Basic Metabolic Panel; Complete Time: 15:42 EDMS 05/08 16:49 Order name: CBC Smear Scan EDRI 05/08 16:56 Order name: Strep 3 05/08 17:01 Order name: Urine Dipstick-Ancillary EDRI 05/08 17:15 Order name: Urinalysis W/Microscopic EDMS 05/08 17:19 Order name: COVID-19 : Document "Date of Symptom Onset" if Symptomatic. iw 05/08 17:26 Order name: ABG Arterial Blood Gas EDRI 05/08 14:31 Order name: XRAY Chest (1 view); Complete Time: 15:42 3 05/08 14:31 Order name: EKG; Complete Time: 14:32 3 05/08 14:31 Order name: Cardiac monitoring; Complete Time: 14:58 3 05/08 14:31 Order name: EKG - Nurse/Tech; Complete Time: 14:58 3 05/08 14:31 Order name: IV Saline Lock; Complete Time: 14:58 3 05/08 14:31 Order name: Labs collected and sent; Complete Time: 14:58 3 05/08 14:31 Order name: O2 Per Protocol; Complete Time: 14:58 3 05/08 14:31 Order name: O2 Sat Monitoring; Complete Time: 14:58 3 05/08 16:13 Order name: EKG; Complete Time: 16:15 3 05/08 16:13 Order name: EKG - Nurse/Tech; Complete Time: 16:26 3 05/08 20:01 Order name: SARS-COV-2 RT PCR EDMS Administered Medications: 15:55 Drug: Lasix (furosemide) 20 mg Route: IVP; Site: right antecubital; iw 15:55 Drug: Ketorolac 15 mg Route: IVP; Site: right antecubital; iw 17:04 Drug: morphine 4 mg Route: IVP; Site: Other; hb 17:52 Follow up: Response: No adverse reaction hb Disposition Summary: 05/08/21 16:47 Hospitalization Ordered Hospitalization Status: Observation sp3 Provider: El An sp3 Condition: Stable sp3 Problem: chronic sp3 Symptoms: have worsened sp3 Bed/Room Type: Standard sp3 Location: Telemetry/MedSurg (Inpatient)(05/08/21 20:27) Room Assignment: 429(05/08/21 20:27) Diagnosis - Acute and chronic respiratory failure with hypoxia sp3 - Acute on chronic systolic (congestive) heart failure sp3 Forms: - Medication Reconciliation Form sp3 - SBAR form sp3 Signatures: Dispatcher [employer] EDMS Sheryl Olivia RN RN Treva Ji RN RN Emelia Aburto RN RN hb Kaila Howard sp3 Corrections: (The following items were deleted from the chart) 17:13 16:56 UA MICROSCOPIC+U.LAB.BRZ ordered. EDMS EDMS 17:13 16:56 URINALYSIS+U.LAB.BRZ ordered. EDMS EDMS 18:25 16:47 Telemetry/MedSurg (observation) sp3 hb 18:25 16:47 sp3 hb 20:27 18:25 [facility] ER HOLD hb mw 20:27 18:25 ERHOLD- hb mw
[2021-05-08 16:48] LABS: White Blood Cell Scan OK (OK)
[2021-05-08 16:49] LABS: Blood Morphology Comment NOT SEEN (NOT SEEN); Platelet Estimate ADEQ
[2021-05-08 17:02] LABS: Urine Blood Negative (Negative); Urine Glucose Negative (Negative); Urine Protein Negative (Negative); Urine Specific Gravity 1.025 (1.005-1.030); Urine pH 6.5 (5.0-7.0)
[2021-05-08 17:18] LABS: Urine Appearance CLOUDY (Clear); Urine Bilirubin NEGATIVE (Negative); Urine Blood NEGATIVE (Negative); Urine Color YELLOW (Yellow); Urine Glucose NEGATIVE (Negative); Urine Protein NEGATIVE (Negative)
[2021-05-08] MEDS ORDERED: MORPHINE 4 MG/ML SYR ONE (17:25)
[2021-05-08] MEDS ORDERED: ACETAMINOPHEN 500 MG TAB PO PRN (17:32)
[2021-05-08] MEDS ORDERED: ONDANSETRON 4 MG/2 ML VIAL IV PRN (17:32)
[2021-05-08] MEDS ORDERED: SODIUM CHLORIDE 0.9% 10ML INJ IV PRN (17:36)
[2021-05-08] MEDS ORDERED: LABETALOL 20 MG/4ML SYRINGE IV PRN (17:40)
[2021-05-08] MEDS ORDERED: ALBUTEROL INHALER 60 PUFF/8 GM IH PRN (17:41)
--- NOTE | 2021-05-08 17:44 | P.HP ---
Certification for Inpatient Patient admitted to: Inpatient With expected LOS: >2 Midnights Patient will require the following post-hospital care: Home Health Services Practitioner: I am a practitioner with admitting privileges, knowledge of patient current condition, hospital course, and medical plan of care. Services: Services provided to patient in accordance with Admission requirements found in Title 42 Section 412.3 of the Code of Federal Regulations Patient History Date of Service: 05/08/21 Reason for admission: SOB, Sore Throat History of Present Illness: Patient is a 60-year-old female with a past medical history significant for CHF, COPD, hypertension, HLD, chronic respiratory failure who presents with complaint of shortness of breath and sore throat. Patient reported that she was hospitalized for Covid 19 infection and was discharged home 2 weeks ago. Patient is on home O2 therapy at 2 to 3 L/min. Patient reported that since discharge, her sore throat has been worsening as well as her shortness of breath. Patient reports that whenever she ambulates her O2 drops to the 60s while at rest her O2 remains in the 70s. Patient reports associated signs and symptoms of cough. Patient denies any other signs or symptoms. Symptoms are aggravated by exertion and relieved by nothing. Patient decided to present to the hospital due to worsening symptoms. Allergies codeine [Codeine] Adverse Reaction (Mild, Verified 02/15/21 08:47) itch Home medications list reviewed: No Home Medications: Atorvastatin Calcium [Lipitor*] 20 mg PO BEDTIME 10/23/20 Gabapentin 300 mg PO BID 10/23/20 Roflumilast [Daliresp*] 500 mcg PO DAILY 10/23/20 Umeclidinium Brm/Vilanterol Tr [Anoro Ellipta 62.5-25 Mcg INH] 1 puff IN DAILY 10/23/20 clonazePAM [Klonopin*] 0.5 mg PO DAILY PRN 10/23/20 Tramadol HCl [Ultram] 50 mg PO TID PRN 30 Days #60 tablet 11/21/20 Pantoprazole [Protonix Tab*] 40 mg PO DAILY 02/14/21 Ropinirole HCl [Requip*] 1 mg PO BEDTIME 02/14/21 Ascorbic Acid [Vitamin C*] 500 mg PO QID #120 tablet 04/18/21 Benzonatate [Tessalon Perle*] 100 mg PO TID PRN #30 cap 04/18/21 Cetirizine HCl [Zyrtec*] 10 mg PO DAILY PRN #30 tablet 04/18/21 Cholecalciferol (Vitamin D3) [Vitamin D 5,000 IU Cap*] 5,000 unit PO DAILY #30 cap 04/18/21 Thiamine HCl [Vitamin B-1*] 200 mg PO DAILY #60 tablet 04/18/21 Zinc Sulfate [Zinc Sulfate*] 220 mg PO DAILY #30 cap 04/18/21 acetaZOLAMIDE [Diamox*] 250 mg PO BID #60 tab 04/18/21 Albuterol Sulfate [Albuterol Sulfate Hfa] 8.5 gm IH TID #1 hfa.aer.ad 04/24/21 predniSONE [Prednisone*] 20 mg PO SEECOM #21 tab 04/24/21 - Past Medical/Surgical History Diabetic: No -: Severe COPD, oxygen/steroid dependent,Pulmonary-Dr. Do -: Mild pulmonary hypertension -: Hypothyroidism -: Bipolar disorder -: Hypertension -: Chronic low back pain -: Obstructive sleep apnea -: Tobacco abuse -: HLD -: GERD -: Appendectomy -: Psychosocial/ Personal History: She lives with a partner. She has 1 child. She is currently disabled. - Family History Father -: Heart disease, Hypertension, Diabetes Notes: from CHF Mother -: Heart disease, Hypertension, Diabetes Notes: from CHF Brother -: Diabetes Sister -: Heart disease, Diabetes Notes: from CHF - Social History Alcohol use: Yes CD- Drugs: No Caffeine use: Yes Place of Residence: Home Review of Systems General: Unremarkable Eyes: Unremarkable ENT: Throat Pain Respiratory: Cough, Shortness of Breath, SOB with Excertion Cardiovascular: Unremarkable Gastrointestinal: Unremarkable Genitourinary: Unremarkable Musculoskeletal: Unremarkable Integumentary: Unremarkable Neurological: Unremarkable Physical Examination - Physical Exam General: Alert, In no apparent distress, Oriented x3 HEENT: Atraumatic, PERRLA, Mucous membr. moist/pink, EOMI, Sclerae nonicteric Neck: Supple, 2+ carotid pulse no bruit, No LAD, Without JVD or thyroid abnormality Respiratory: Diminished, Expiratory wheezes, Inspiratory wheezes Cardiovascular: Regular rate/rhythm, Normal S1 S2 Capillary refill: <2 Seconds Gastrointestinal: Normal bowel sounds, No tenderness Musculoskeletal: No tenderness Integumentary: No rashes Neurological: Normal gait, Normal speech, Normal tone, Normal affect Lymphatics: No axilla or inguinal lymphadenopathy External genitalia: Deferred Rectal: Deferred - Studies Laboratory Data (last 24 hrs) 05/08/21 14:56: PT 13.8 H, INR 1.20 05/08/21 14:56: WBC 7.10, Hgb 8.5 L, Hct 28.0 L, Plt Count 210 05/08/21 14:56: Sodium 140, Potassium 4.2, BUN 10, Creatinine 0.48 L, Glucose 100 Microbiology Data (last 24 hrs): 05/08/21 17:06 Throat Group A Streptococcus Rapid Screen - Final Assessment and Plan - Plan --Acute on chronic respiratory failure with hypoxia and hypercapnia. Secondary to COPD and CHF exacerbation. ABG levels pending. Pulmonology consulted. Patient placed on steroids, albuterol inhaler and O2 therapy. Will further recommendation from councilman. --Acute on chronic CHF exacerbation. Patient placed on Lasix. Daily weight and strict I/O. Continue supportive care. --Acute on chronic COPD exacerbation. Continue current treatment regimen. --Hypertension. Continue home medications. --HLD. Continue home medication. --Class III obesity. Likely secondary to excess calories intake and sedentary lifestyle. Patient counseled on diet and exercise therapy. --Suspected COVID-19 infection. Patient was hospitalized for COVID-19 infection and discharged 2 weeks ago. Test results pending. Continue droplet, contact and airborne precautions. --Hypercarbia. Noted on chemistry. Patient has a history of hypercarbia. ABGs level pending. Patient alert and oriented x3. Continue current treatment regimen. Further management based on ABG levels. --GERD. Continue Protonix --DVT prophylaxis with heparin subQ I have had discussion about advanced directives with the patient during this hospital admission. Addressed code status and /or goals of care. Spent more than 15 minutes. Case discussed withpatient and nurse. Discharge Plan: Home Plan to discharge in: 48 Hours - Advance Directives Does patient have a Living Will: No Does patient have a Durable POA for Healthcare: No - Code Status/Comfort Care Code Status Assessed: Yes Code Status: Full Code Physician Review: Patient Assessed, Agree with Above Assessment and Plan Critical Care: No
[2021-05-08 17:52] LABS: Urine Bacteria 20-50 /HPF (<20); Urine RBC NONE SEEN /HPF (NONE SEEN)
[2021-05-08 18:03] LABS: Arterial Blood Carboxyhemoglob 1.9 % (0-1.5); Blood Gas Oxyhemoglobin 79.1 % (94-97); Blood O2 Saturation 81.5 % (92-98.5)
--- NOTE | 2021-05-08 20:13 | P.CNS ---
Date of Consult: 05/08/21 Reason for Consult: C Resp failure Chief Complaint: SOB, Sore Throat History of Present Illness: AGe 60 recurrent hosp admissions.treminal COPD aW SOB and sore throat/c/o worseng SOB, Sig decrease in sat with exertion/c/o coug Allergies codeine [Codeine] Adverse Reaction (Mild, Verified 02/15/21 08:47) itch Home Medications: Atorvastatin Calcium [Lipitor*] 20 mg PO BEDTIME 10/23/20 Gabapentin 300 mg PO BID 10/23/20 Roflumilast [Daliresp*] 500 mcg PO DAILY 10/23/20 Umeclidinium Brm/Vilanterol Tr [Anoro Ellipta 62.5-25 Mcg INH] 1 puff IN DAILY 10/23/20 clonazePAM [Klonopin*] 0.5 mg PO DAILY PRN 10/23/20 Tramadol HCl [Ultram] 50 mg PO TID PRN 30 Days #60 tablet 11/21/20 Pantoprazole [Protonix Tab*] 40 mg PO DAILY 02/14/21 Ropinirole HCl [Requip*] 1 mg PO BEDTIME 02/14/21 Ascorbic Acid [Vitamin C*] 500 mg PO QID #120 tablet 04/18/21 Benzonatate [Tessalon Perle*] 100 mg PO TID PRN #30 cap 04/18/21 Cetirizine HCl [Zyrtec*] 10 mg PO DAILY PRN #30 tablet 04/18/21 Cholecalciferol (Vitamin D3) [Vitamin D 5,000 IU Cap*] 5,000 unit PO DAILY #30 cap 04/18/21 Thiamine HCl [Vitamin B-1*] 200 mg PO DAILY #60 tablet 04/18/21 Zinc Sulfate [Zinc Sulfate*] 220 mg PO DAILY #30 cap 04/18/21 acetaZOLAMIDE [Diamox*] 250 mg PO BID #60 tab 04/18/21 Albuterol Sulfate [Albuterol Sulfate Hfa] 8.5 gm IH TID #1 hfa.aer.ad 04/24/21 predniSONE [Prednisone*] 20 mg PO SEECOM #21 tab 04/24/21 - Past Medical/Surgical History Diabetic: No -: Severe COPD, oxygen/steroid dependent,Pulmonary-Dr. Do -: Mild pulmonary hypertension -: Hypothyroidism -: Bipolar disorder -: Hypertension -: Chronic low back pain -: Obstructive sleep apnea -: Tobacco abuse -: HLD -: GERD -: Appendectomy -: Psychosocial/ Personal History: She lives with a partner. She has 1 child. She is currently disabled. - Family History Father Medical History: Heart disease, Hypertension, Diabetes Notes: from CHF Mother Medical History: Heart disease, Hypertension, Diabetes Notes: from CHF Brother Medical History: Diabetes Sister Medical History: Heart disease, Diabetes Notes: from CHF - Social History Smoking Status: Unknown if ever smoked Alcohol use: Yes CD- Drugs: No Caffeine use: Yes Place of Residence: Home Review of Systems General: Weakness Respiratory: Cough, Shortness of Breath Physical Examination General: Alert, In no apparent distress, Oriented x3, Moderate distress Laboratory Data (last 24 hrs) 05/08/21 14:56: PT 13.8 H, INR 1.20 05/08/21 14:56: WBC 7.10, Hgb 8.5 L, Hct 28.0 L, Plt Count 210 05/08/21 14:56: Sodium 140, Potassium 4.2, BUN 10, Creatinine 0.48 L, Glucose 100 - Problems (1) Acute on chronic respiratory failure with hypoxia and hypercapnia Current Visit: No Status: Acute Plan: age 60 recurrent hosp admiisions with COPD/c anemai/ Baselne hypercapnea/CXRY ILD/VS stable/ likely iron def anemia/ iron studies/meds and labs reviewed
[2021-05-08] MEDS: ARFORMOTEROL TARTRATE 15 MCG/2 ML VIAL.NEB NEB SCH (20:49)
[2021-05-08] MEDS: acetaZOLAMIDE 250 MG TAB PO SCH (21:00)
[2021-05-08] MEDS: GABAPENTIN 300 MG CAP PO SCH (21:00)
[2021-05-08] MEDS: predniSONE 20 MG TAB PO SCH (21:00)
[2021-05-08] MEDS: ROPINIROLE HCL 1 MG TAB PO SCH (21:00)
[2021-05-08] MEDS ORDERED: GABAPENTIN 300 MG CAP ONE (21:18)
[2021-05-08] MEDS ORDERED: acetaZOLAMIDE 250 MG TAB ONE (21:18)
[2021-05-08] MEDS ORDERED: predniSONE 20 MG TAB ONE (21:18)
[2021-05-08] MEDS ORDERED: BENZONATATE 100 MG CAP PO ONE (21:18)
[2021-05-09] MEDS ORDERED: HEPARIN 5000 UNIT/ML 1 ML VIAL SQ SCH (01:00)
[2021-05-09] MEDS ORDERED: METHYLPREDNISOLONE 40 MG INJ IV SCH (01:00)
[2021-05-09] MEDS: IPRATROPIUM BROM 0.5MG/2.5ML NEB SCH ×4 (02:00→20:50)
[2021-05-09 05:36] LABS: Absolute Lymphocytes (CBC) 0.8 K/uL (0.7-4.9); Basophils % 0.3 % (0-1.3); Hematocrit 27.4 % (36.0-45.0); Lymphocytes % 9.2 % (15.3-44.8); MPV 7.7 fL (7.6-11.3); RBC Red Blood Cell Count 3.21 M/uL (3.86-4.86)
[2021-05-09 05:54] LABS: BUN Blood Urea Nitrogen 16 mg/dL (7-18); Bicarbonate 39 mmol/L (21-32); Ferritin 74.8 ng/mL (8-388); Glucose Level 173 mg/dL (74-106); Potassium 4.8 mmol/L (3.5-5.1); Sodium Level 139 mmol/L (136-145)
--- NOTE | 2021-05-09 06:31 | P.PN ---
Subjective Date of Service: 05/09/21 Chief Complaint: SOB, Sore Throat Subjective: No new changes (feels about the same as yesterday, alert/oriented, reports ongoing sore throat x 1 week) Review of Systems 10-point ROS is otherwise unremarkable Physical Examination - Vital Signs Temperature: 97.5 F Blood Pressure: 121/59 Pulse: 67 Respirations: 17 Pulse Ox (%): 96 - Studies Laboratory Data (last 24 hrs) 05/08/21 14:56: PT 13.8 H, INR 1.20 05/08/21 14:56: WBC 7.10, Hgb 8.5 L, Hct 28.0 L, Plt Count 210 05/08/21 14:56: Sodium 140, Potassium 4.2, BUN 10, Creatinine 0.48 L, Glucose 100 Microbiology Data (last 24 hrs): 05/08/21 17:06 Throat Group A Streptococcus Rapid Screen - Final Assessment & Plan Physician Review Additional Text: Physical exam General: Alert/oriented, NAD HEENT: Normal conjunctiva, sclera anicteric, BiPAP in place CV: Regular rate and rhythm, mild bilateral lower extremity edema Pulmonary: Diminished bilaterally, on BiPAP Abdomen: Soft, nontender, nondistended MSK: No joint tenderness Neuro: Normal affect, normal speech Problem list Acute on chronic hypoxemic respiratory failure secondary to CHF and COPD exacerbation Acute on chronic CHF exacerbation Acute on chronic COPD exacerbation Hypertension Hyperlipidemia Morbid obesity Recent COVID-19 infection GERD -Hypercarbia appears to be at patient's baseline, she is alert and oriented -Continue steroids, nebs, Lasix -Patient with possible esophageal Candidiasis given recent prolonged steroid use, recent hospitalization -Start fluconazole, oral load today -Pulmonology consulted -Advised patient to get a family member to bring her NIV from home that way we can see how she does on it -Otherwise patient does not seem too far off from her baseline Time Spent Managing Pts Care (In Minutes): 35
[2021-05-09] MEDS: predniSONE 20 MG TAB PO SCH ×2 (08:49→17:00)
[2021-05-09] MEDS: acetaZOLAMIDE 250 MG TAB PO SCH ×2 (08:49→21:00)
[2021-05-09] MEDS: ASPIRIN 81 MG CHEWABLE TABLET PO SCH (08:49)
[2021-05-09] MEDS: BENZONATATE 100 MG CAP PO PRN (08:49)
[2021-05-09] MEDS: GABAPENTIN 300 MG CAP PO SCH ×2 (08:49→21:00)
[2021-05-09] MEDS: ROFLUMILAST 500 MCG TABLET PO SCH (08:49)
[2021-05-09] MEDS: ARFORMOTEROL TARTRATE 15 MCG/2 ML VIAL.NEB NEB SCH ×2 (08:52→20:50)
[2021-05-09] MEDS: PANTOPRAZOLE 40MG TABLET PO SCH (08:55)
[2021-05-09] MEDS ORDERED: PANTOPRAZOLE 40 MG INJ IVP SCH (09:00)
[2021-05-09] MEDS ORDERED: FUROSEMIDE 40 MG/4 ML VIAL IV SCH (09:00)
--- NOTE | 2021-05-09 09:03 | RAD REPORT ---
EXAM DESCRIPTION: RAD - Chest Single View - 05/09/2021 8:57 am CLINICAL HISTORY: SOB COMPARISON: Chest Single View dated 05/08/2021; Chest Single View dated 04/24/2021; Chest Single View d ated 04/22/2021; Chest Single View dated 04/17/2021 FINDINGS: Moderate multifocal airspace opacities bilaterally which are unchanged. Cardiomegaly. No a cute osseous abnormality. No significant pleural effusions or pneumothorax. IMPRESSION: Similar bilateral airspace disease which could reflect multifocal pneumonia and/or edema .
[2021-05-09] MEDS: HYDROCODONE/APAP 5/325 MG TAB PO PRN ×2 (09:20→21:00)
[2021-05-09] MEDS ORDERED: FLUCONAZOLE 100 MG TAB PO ONE (15:00)
--- NOTE | 2021-05-09 16:27 | EKG ---
Test Date: 2021-05-08 Test Time: 16:23:38 Drink Mixer: JC MEASUREMENT RESULTS: Intervals: Rate: 82 AL: 162 QRSD: 88 QT: 370 QTc: 432 [place]: P: 35 AL: 162 QRS: 59 T: 77 INTERPRETIVE STATEMENTS: Sinus rhythm with marked sinus arrhythmia Otherwise normal ECG Compared to ECG 05/08/2021 14:57:19 Atrial fibrillation no longer present Ventricular premature complex(es) no longer present ST (T wave) deviation no longer present Electronically Signed On 05-09-21 16:24:10 CDT by Selvin Mar
--- NOTE | 2021-05-09 16:28 | EKG ---
Test Date: 2021-05-08 Test Time: 14:57:19 Director Of State: MICHEAL MEASUREMENT RESULTS: Intervals: Rate: 84 AL: QRSD: 76 QT: 366 QTc: 432 [place]: P: AL: QRS: 68 T: 51 INTERPRETIVE STATEMENTS: Atrial fibrillation with a competing junctional pacemaker with premature ventricular or aberrantly conducted complexes Low voltage QRS Nonspecific ST abnormality Abnormal ECG Compared to ECG 04/22/2021 02:27:40 Ventricular premature complex(es) now present Low QRS voltage now present ST (T wave) deviation now present Sinus rhythm no longer present Electronically Signed On 05-09-21 16:24:14 CDT by Selvin Mar
--- NOTE | 2021-05-09 17:59 | RAD REPORT ---
EXAM DESCRIPTION: RAD - Chest Single View - 05/09/2021 5:37 pm CLINICAL HISTORY: Sob COMPARISON: May 09 TECHNIQUE: AP portable chest image was obtained 05/09/2021 5:37 pm . FINDINGS: A predominantly lower lung field interstitial and alveolar opacification pattern is presen t not clearly different from comparison. Cardiac silhouette is enlarged. Pulmonary vasculature is sim ilar to comparison. Trachea is midline. No pneumothorax is present. No new or enlarging pleural effus ion. No acute bony abnormality seen. No acute aortic findings suspected. IMPRESSION: Bilateral lung parenchymal opacification stable from prior imaging.
[2021-05-09] MEDS: ROPINIROLE HCL 1 MG TAB PO SCH (21:00)
[2021-05-09] MEDS: clonazePAM 0.5 MG TAB PO PRN (21:00)
[2021-05-10] MEDS: IPRATROPIUM BROM 0.5MG/2.5ML NEB SCH ×5 (02:00→19:25)
[2021-05-10] MEDS: ARFORMOTEROL TARTRATE 15 MCG/2 ML VIAL.NEB NEB SCH ×2 (08:00→19:25)
[2021-05-10 08:11] LABS: Absolute Lymphocytes (CBC) 1.3 K/uL (0.7-4.9); Basophils % 0.3 % (0-1.3); Hematocrit 26.2 % (36.0-45.0); Lymphocytes % 18.1 % (15.3-44.8); MPV 7.7 fL (7.6-11.3); RBC Red Blood Cell Count 3.09 M/uL (3.86-4.86)
[2021-05-10 08:29] LABS: ALT/SGPT 22 U/L (12-78); AST/SGOT 7 U/L (15-37); Albumin 2.6 g/dL (3.4-5.0); Alkaline Phosphatase 62 U/L (45-117); BUN Blood Urea Nitrogen 15 mg/dL (7-18); Bicarbonate 40 mmol/L (21-32); Bilirubin Total 0.2 mg/dL (0.2-1.0); Glucose Level 107 mg/dL (74-106); Potassium 4.2 mmol/L (3.5-5.1); Protein, Total 5.8 g/dL (6.4-8.2); Sodium Level 141 mmol/L (136-145)
--- NOTE | 2021-05-10 08:31 | EKG ---
Test Date: 2021-05-09 Test Time: 17:18:31 Attraction Attendant: TRENT MEASUREMENT RESULTS: Intervals: Rate: 66 ME: 166 QRSD: 86 QT: 406 QTc: 425 [place]: P: 61 ME: 166 QRS: 52 T: 63 INTERPRETIVE STATEMENTS: Sinus rhythm with premature supraventricular complexes Low voltage QRS Borderline ECG Compared to ECG 05/08/2021 16:23:38 Atrial premature complex(es) now present Low QRS voltage now present Sinus arrhythmia no longer present Electronically Signed On 05-10-21 08:29:31 CDT by Selvin Mar
[2021-05-10] MEDS: acetaZOLAMIDE 250 MG TAB PO SCH ×2 (08:48→20:09)
[2021-05-10] MEDS: GABAPENTIN 300 MG CAP PO SCH ×2 (08:48→20:09)
[2021-05-10] MEDS: FLUCONAZOLE 100 MG TAB PO SCH (08:48)
[2021-05-10] MEDS: PANTOPRAZOLE 40MG TABLET PO SCH (08:48)
[2021-05-10] MEDS: ASPIRIN 81 MG CHEWABLE TABLET PO SCH (08:48)
[2021-05-10] MEDS: predniSONE 20 MG TAB PO SCH ×2 (08:51→16:05)
[2021-05-10] MEDS: ROFLUMILAST 500 MCG TABLET PO SCH (08:54)
[2021-05-10 08:55] LABS: Blood Morphology Comment NOT SEEN (NOT SEEN); Platelet Estimate ADEQ; White Blood Cell Scan OK (OK)
[2021-05-10 13:44] LABS: Urine Appearance CLEAR (Clear); Urine Bilirubin NEGATIVE (Negative); Urine Blood NEGATIVE (Negative); Urine Color YELLOW (Yellow); Urine Glucose NEGATIVE (Negative); Urine Protein 1+ (Negative); Urine Specific Gravity 1.015 (1.005-1.030); Urine pH 6.5 (5.0-7.0)
[2021-05-10 14:38] LABS: Urine Microscopic Reflex ORDER UMIC
--- NOTE | 2021-05-10 14:52 | P.PN ---
Subjective Date of Service: 05/10/21 Chief Complaint: SOB, Sore Throat Subjective: Improving (Still hypxic C/o sore throat) Review of Systems Respiratory: Shortness of Breath Physical Examination - Vital Signs Temperature: 97.6 F Blood Pressure: 108/58 Pulse: 96 Respirations: 21 Pulse Ox (%): 95 - Physical Exam General: Alert, Cooperative - Studies Microbiology Data (last 24 hrs): 05/08/21 17:06 Throat Culture & Sensitivity - Final NORMAL UPPER RESPIRATORY WINSOME GROWN. Assessment & Plan - Problems (Diagnosis) (1) Acute on chronic respiratory failure with hypoxia and hypercapnia Current Visit: No Status: Acute Plan: Resp failur e/ Terminal COPD/ prog v poorVS stable Physician Review: Patient Assessed, Agree with Above Assessment and Plan
[2021-05-10 15:50] LABS: Urine Bacteria 20-50 /HPF (<20); Urine RBC NONE SEEN /HPF (NONE SEEN)
--- NOTE | 2021-05-10 16:35 | P.PN ---
Subjective Date of Service: 05/10/21 Chief Complaint: SOB, Sore Throat Subjective: No new changes (Feels about the same, on 80% FiO2, still with sore throat. Continues with anemia) Review of Systems 10-point ROS is otherwise unremarkable Physical Examination - Vital Signs Temperature: 97.6 F Blood Pressure: 108/58 Pulse: 96 Respirations: 21 Pulse Ox (%): 95 - Studies Microbiology Data (last 24 hrs): 05/08/21 17:06 Throat Culture & Sensitivity - Final NORMAL UPPER RESPIRATORY WINSOME GROWN. Assessment & Plan Physician Review Additional Text: Physical exam General: Alert/oriented, appears fatigued HEENT: Normal conjunctiva, sclera anicteric, BiPAP in place CV: Regular rate and rhythm, mild bilateral lower extremity edema Pulmonary: Diminished bilaterally, on BiPAP Abdomen: Soft, nontender, nondistended MSK: No joint tenderness Problem list Acute on chronic hypoxemic respiratory failure secondary to CHF and COPD exacerbation Acute on chronic CHF exacerbation Acute on chronic COPD exacerbation Anemia of chronic disease, and iron deficiency Hypertension Hyperlipidemia Morbid obesity Recent COVID-19 infection GERD -Hypercarbia appears to be at patient's baseline, she is alert and oriented -Continue steroids, nebs, Lasix -Patient with possible esophageal Candidiasis given recent prolonged steroid use, recent hospitalization -Fluconazole started 05/09 -Pulmonology consulted -Advised patient to get a family member to bring her NIV from home that way we can see how she does on it -Patient still fairly hypoxic, hemoglobin downtrending, work-up consistent with iron deficiency/chronic disease. Iron significantly dropped compared to last month -Start IV iron Dispo: anticipate dc home with home NIV in ~2 days Time Spent Managing Pts Care (In Minutes): 35
[2021-05-10] MEDS: SOD FERRIC GLUC COMPLX/SUCROSE 125 MG in NA CHLORIDE 0.9% 100 ML IV SCH (17:33)
[2021-05-10] MEDS: ROPINIROLE HCL 1 MG TAB PO SCH (20:09)
[2021-05-10] MEDS: HYDROCODONE/APAP 5/325 MG TAB PO PRN (20:09)
[2021-05-11] MEDS: IPRATROPIUM BROM 0.5MG/2.5ML NEB SCH ×4 (01:35→19:55)
[2021-05-11 06:00] LABS: Absolute Lymphocytes (CBC) 1.2 K/uL (0.7-4.9); Basophils % 0.1 % (0-1.3); Hematocrit 24.9 % (36.0-45.0); Lymphocytes % 17.5 % (15.3-44.8); MPV 7.6 fL (7.6-11.3); RBC Red Blood Cell Count 2.97 M/uL (3.86-4.86)
[2021-05-11 06:14] LABS: BUN Blood Urea Nitrogen 18 mg/dL (7-18); Bicarbonate 37 mmol/L (21-32); Glucose Level 123 mg/dL (74-106); Potassium 4.3 mmol/L (3.5-5.1); Sodium Level 141 mmol/L (136-145)
[2021-05-11] MEDS: GABAPENTIN 300 MG CAP PO SCH ×2 (09:20→21:49)
[2021-05-11] MEDS: FLUCONAZOLE 100 MG TAB PO SCH (09:20)
[2021-05-11] MEDS: ASPIRIN 81 MG CHEWABLE TABLET PO SCH (09:20)
[2021-05-11] MEDS: ROFLUMILAST 500 MCG TABLET PO SCH (09:20)
[2021-05-11] MEDS: acetaZOLAMIDE 250 MG TAB PO SCH ×2 (09:20→21:49)
[2021-05-11] MEDS: predniSONE 20 MG TAB PO SCH ×2 (09:20→17:18)
[2021-05-11] MEDS: PANTOPRAZOLE 40MG TABLET PO SCH (09:20)
[2021-05-11] MEDS: ARFORMOTEROL TARTRATE 15 MCG/2 ML VIAL.NEB NEB SCH ×2 (09:49→19:55)
[2021-05-11] MEDS: SOD FERRIC GLUC COMPLX/SUCROSE 125 MG in NA CHLORIDE 0.9% 100 ML IV SCH (10:16)
--- NOTE | 2021-05-11 16:12 | P.PN ---
Subjective Date of Service: 05/11/21 Chief Complaint: SOB, Sore Throat Subjective: No new changes (Continues with sore throat, no improvement. Worsened when swallowing liquids/food. Feels food is getting stuck much more frequently than before. Home NIV mask with large tear) Review of Systems 10-point ROS is otherwise unremarkable Physical Examination - Vital Signs Temperature: 97.9 F Blood Pressure: 101/59 Pulse: 90 Respirations: 22 Pulse Ox (%): 94 - Studies Microbiology Data (last 24 hrs): 05/08/21 16:59 Clean Catch Urine [place] Count - Final BETWEEN 10,000 & 100,000 CFU/ML 05/08/21 16:59 Clean Catch Urine - Final MIXED WINSOME. Assessment & Plan Physician Review Additional Text: Physical exam General: Alert/oriented, appears fatigued/sleepy HEENT: Normal conjunctiva, sclera anicteric, BiPAP in place CV: Regular rate and rhythm, mild bilateral lower extremity edema Pulmonary: Diminished bilaterally, on BiPAP Abdomen: Soft, nontender, nondistended MSK: No joint tenderness Problem list Acute on chronic hypoxemic respiratory failure secondary to CHF and COPD exacerbation Acute on chronic CHF exacerbation Acute on chronic COPD exacerbation Anemia of chronic disease, and iron deficiency Hypertension Hyperlipidemia Morbid obesity Recent COVID-19 infection GERD -Hypercarbia appears to be at patient's baseline, she is alert and oriented -Continue steroids, nebs, Lasix -Patient with possible esophageal Candidiasis given recent prolonged steroid use, recent hospitalization -Fluconazole started 05/09, PO lidocaine ordered -Pulmonology consulted -Pt has NIV, but mask is torn and unable to use it -Patient still fairly hypoxic, hemoglobin downtrending, work-up consistent with iron deficiency/chronic disease. Iron significantly dropped compared to last month -Start IV iron 05/10 -if hgb continues to downtrend may need to transfuse Dispo: anticipate dc home with home NIV in ~2 days Time Spent Managing Pts Care (In Minutes): 40
[2021-05-11 20:49] VITALS: BMI 38.3
[2021-05-11] MEDS: ROPINIROLE HCL 1 MG TAB PO SCH (21:49)
[2021-05-11] MEDS: clonazePAM 0.5 MG TAB PO PRN (21:49)
[2021-05-12] MEDS: IPRATROPIUM BROM 0.5MG/2.5ML NEB SCH ×4 (01:35→19:20)
[2021-05-12 05:55] LABS: Absolute Lymphocytes (CBC) 1.2 K/uL (0.7-4.9); Basophils % 0.2 % (0-1.3); Hematocrit 24.2 % (36.0-45.0); Lymphocytes % 14.7 % (15.3-44.8); MPV 7.5 fL (7.6-11.3); RBC Red Blood Cell Count 2.89 M/uL (3.86-4.86)
[2021-05-12 06:08] LABS: Arterial Blood Carboxyhemoglob 1.4 % (0-1.5); Blood Gas Oxyhemoglobin 95.1 % (94-97); Blood O2 Saturation 97.3 % (92-98.5)
[2021-05-12 08:34] LABS: ALT/SGPT 48 U/L (12-78); AST/SGOT 26 U/L (15-37); Albumin 2.7 g/dL (3.4-5.0); Alkaline Phosphatase 56 U/L (45-117); BUN Blood Urea Nitrogen 17 mg/dL (7-18); Bicarbonate 38 mmol/L (21-32); Bilirubin Total 0.2 mg/dL (0.2-1.0); Glucose Level 130 mg/dL (74-106); Potassium 4.3 mmol/L (3.5-5.1); Protein, Total 5.7 g/dL (6.4-8.2); Sodium Level 142 mmol/L (136-145)
[2021-05-12] MEDS: ARFORMOTEROL TARTRATE 15 MCG/2 ML VIAL.NEB NEB SCH ×2 (08:38→19:20)
[2021-05-12] MEDS: ROFLUMILAST 500 MCG TABLET PO SCH (08:53)
[2021-05-12] MEDS: PANTOPRAZOLE 40MG TABLET PO SCH (08:53)
[2021-05-12] MEDS: SOD FERRIC GLUC COMPLX/SUCROSE 125 MG in NA CHLORIDE 0.9% 100 ML IV SCH (08:53)
[2021-05-12] MEDS: predniSONE 20 MG TAB PO SCH ×2 (08:54→17:28)
[2021-05-12] MEDS: acetaZOLAMIDE 250 MG TAB PO SCH ×2 (08:54→20:23)
[2021-05-12] MEDS: ASPIRIN 81 MG CHEWABLE TABLET PO SCH (08:54)
[2021-05-12] MEDS: GABAPENTIN 300 MG CAP PO SCH ×2 (08:54→20:23)
[2021-05-12] MEDS: FLUCONAZOLE 100 MG TAB PO SCH (08:58)
[2021-05-12] MEDS ORDERED: FUROSEMIDE 20 MG/ 2ML VIAL IV ONE (11:06)
--- NOTE | 2021-05-12 11:10 | P.PN ---
Subjective Date of Service: 05/12/21 Chief Complaint: SOB, Sore Throat Subjective: No new changes (Feels about the same, breathing comfortably on our BiPAP, her NIV mask is broken. Continues with very tender throat pain, has not tried viscous lidocaine.) Review of Systems 10-point ROS is otherwise unremarkable Physical Examination - Vital Signs Temperature: 98.0 F Blood Pressure: 125/60 Pulse: 65 Respirations: 20 Pulse Ox (%): 92 - Studies Microbiology Data (last 24 hrs): 05/08/21 16:59 Clean Catch Urine [place] Count - Final BETWEEN 10,000 & 100,000 CFU/ML 05/08/21 16:59 Clean Catch Urine - Final MIXED WINSOME. Assessment & Plan Physician Review Additional Text: Physical exam General: Alert/oriented, NAD HEENT: Normal conjunctiva, sclera anicteric, BiPAP in place CV: Regular rate and rhythm, mild bilateral lower extremity edema Pulmonary: Diminished bilaterally, on BiPAP Abdomen: Soft, nontender, nondistended MSK: No joint tenderness Problem list Acute on chronic hypoxemic respiratory failure secondary to CHF and COPD exacerbation Acute on chronic CHF exacerbation Acute on chronic COPD exacerbation Anemia of chronic disease, and iron deficiency Throat Pain Hypertension Hyperlipidemia Morbid obesity Recent COVID-19 infection GERD -Hypercarbia appears to be at patient's baseline, she is alert and oriented -Continue steroids, nebs, diuretics -Patient with possible esophageal candidiasis given recent prolonged steroid use, recent hospitalization -Fluconazole started 05/09, PO lidocaine ordered - encouraged to try lidocaine today -Pulmonology consulted -Pt has NIV, but mask is torn and unable to use it - will have nursing staff contact company for new mask -hemoglobin downtrending, work-up consistent with iron deficiency/chronic disease. Iron significantly dropped compared to last month -Started IV iron 05/10 -hgb downtrending, transfuse 1u PRBC Dispo: anticipate dc home with home NIV in ~2 days Time Spent Managing Pts Care (In Minutes): 40
[2021-05-12] MEDS ORDERED: NA CHLORIDE 0.9% 250 ML IV SCH (12:00)
[2021-05-12] MEDS: ROPINIROLE HCL 1 MG TAB PO SCH (20:23)
[2021-05-13] MEDS: IPRATROPIUM BROM 0.5MG/2.5ML NEB SCH ×4 (01:30→20:25)
[2021-05-13 05:58] LABS: Absolute Lymphocytes (CBC) 1.6 K/uL (0.7-4.9); Basophils % 0.3 % (0-1.3); Lymphocytes % 14.5 % (15.3-44.8); MPV 7.6 fL (7.6-11.3)
[2021-05-13 06:18] LABS: BUN Blood Urea Nitrogen 19 mg/dL (7-18); Bicarbonate 38 mmol/L (21-32); Glucose Level 153 mg/dL (74-106); Potassium 4.1 mmol/L (3.5-5.1); Sodium Level 141 mmol/L (136-145)
[2021-05-13] MEDS: ARFORMOTEROL TARTRATE 15 MCG/2 ML VIAL.NEB NEB SCH ×2 (07:50→20:25)
[2021-05-13] MEDS: predniSONE 20 MG TAB PO SCH ×2 (09:09→16:49)
[2021-05-13] MEDS: GABAPENTIN 300 MG CAP PO SCH ×2 (09:09→21:36)
[2021-05-13] MEDS: ASPIRIN 81 MG CHEWABLE TABLET PO SCH (09:09)
[2021-05-13] MEDS: PANTOPRAZOLE 40MG TABLET PO SCH (09:09)
[2021-05-13] MEDS: FLUCONAZOLE 100 MG TAB PO SCH (09:09)
[2021-05-13] MEDS: clonazePAM 0.5 MG TAB PO PRN (09:09)
[2021-05-13] MEDS: ROFLUMILAST 500 MCG TABLET PO SCH (09:09)
[2021-05-13] MEDS: acetaZOLAMIDE 250 MG TAB PO SCH ×2 (09:09→21:36)
[2021-05-13] MEDS: SOD FERRIC GLUC COMPLX/SUCROSE 125 MG in NA CHLORIDE 0.9% 100 ML IV SCH (09:48)
[2021-05-13 11:44] LABS: Blood Morphology Comment NOT SEEN (NOT SEEN); Platelet Estimate ADEQ
[2021-05-13] MEDS: LIDOCAINE VISCOUS 2% SOLN 15 ML UDC PO PRN (12:25)
[2021-05-13] MEDS: BENZONATATE 100 MG CAP PO PRN ×2 (12:26→21:36)
--- NOTE | 2021-05-13 15:07 | P.PN ---
Subjective Date of Service: 05/13/21 Chief Complaint: SOB, Sore Throat Subjective: No new changes (Feels about the same, tolerating BiPAP, unable to use her NIV due to busted mask. Continues with sore throat, has to chew small portions to avoid food getting stuck in throat. Has generalized fatigue, now reporting more nasal drainage) Review of Systems 10-point ROS is otherwise unremarkable Physical Examination - Vital Signs Temperature: 98.2 F Blood Pressure: 122/63 Pulse: 70 Respirations: 24 Pulse Ox (%): 93 Assessment & Plan Physician Review Additional Text: Physical exam General: Alert/oriented, NAD HEENT: Normal conjunctiva, sclera anicteric, rhinorrhea CV: Regular rate and rhythm, mild bilateral lower extremity edema Pulmonary: Diminished bilaterally, on BiPAP Abdomen: Soft, nontender, nondistended MSK: No joint tenderness Problem list Acute on chronic hypoxemic respiratory failure secondary to CHF and COPD exacerbation Acute on chronic CHF exacerbation Acute on chronic COPD exacerbation Anemia of chronic disease, and iron deficiency Throat Pain Hypertension Hyperlipidemia Morbid obesity Recent COVID-19 infection GERD -Hypercarbia appears to be at patient's baseline, she is alert and oriented -Continue steroids, nebs, diuretics -Patient with possible esophageal candidiasis given recent prolonged steroid use, recent hospitalization -Fluconazole started 05/09, PO lidocaine ordered - encouraged to try lidocaine -Pulmonology consulted -Pt has NIV, but mask is torn and unable to use it - will have nursing staff contact company for new mask -hemoglobin downtrending, work-up consistent with iron deficiency/chronic disease. Iron significantly dropped compared to last month -Started IV iron 05/10 -hgb downtrending, transfused 1u PRBC on 05/12 -Restart home cetirizine, and Flonase on 05/13 -Awaiting for replacement mask for patient on IV Dispo: anticipate dc home with home NIV and new mask in ~2 days Time Spent Managing Pts Care (In Minutes): 35
[2021-05-13] MEDS: HYDROCODONE/APAP 5/325 MG TAB PO PRN (21:36)
[2021-05-13] MEDS: ROPINIROLE HCL 1 MG TAB PO SCH (21:36)
[2021-05-13] MEDS: FLUTICASONE 50MCG NASAL SPRAY NAS SCH (21:40)
[2021-05-14] MEDS: IPRATROPIUM BROM 0.5MG/2.5ML NEB SCH ×4 (01:15→19:50)
[2021-05-14 06:57] LABS: Absolute Lymphocytes (CBC) 1.6 K/uL (0.7-4.9); Basophils % 0.1 % (0-1.3); Hematocrit 28.6 % (36.0-45.0); Lymphocytes % 14.5 % (15.3-44.8); MPV 7.3 fL (7.6-11.3); RBC Red Blood Cell Count 3.37 M/uL (3.86-4.86)
[2021-05-14 07:07] LABS: BUN Blood Urea Nitrogen 18 mg/dL (7-18); Bicarbonate 40 mmol/L (21-32); Glucose Level 138 mg/dL (74-106); Potassium 3.9 mmol/L (3.5-5.1); Sodium Level 140 mmol/L (136-145)
[2021-05-14] MEDS: ARFORMOTEROL TARTRATE 15 MCG/2 ML VIAL.NEB NEB SCH ×2 (08:03→19:50)
[2021-05-14] MEDS: ASPIRIN 81 MG CHEWABLE TABLET PO SCH (08:10)
[2021-05-14] MEDS: FLUCONAZOLE 100 MG TAB PO SCH (08:10)
[2021-05-14] MEDS: clonazePAM 0.5 MG TAB PO PRN (08:10)
[2021-05-14] MEDS: ROFLUMILAST 500 MCG TABLET PO SCH (08:10)
[2021-05-14] MEDS: predniSONE 20 MG TAB PO SCH ×2 (08:10→16:53)
[2021-05-14] MEDS: acetaZOLAMIDE 250 MG TAB PO SCH ×2 (08:10→20:24)
[2021-05-14] MEDS: PANTOPRAZOLE 40MG TABLET PO SCH (08:10)
[2021-05-14] MEDS: GABAPENTIN 300 MG CAP PO SCH ×2 (08:10→20:24)
[2021-05-14] MEDS: FLUTICASONE 50MCG NASAL SPRAY NAS SCH ×2 (08:11→20:24)
[2021-05-14] MEDS: BENZONATATE 100 MG CAP PO PRN (08:13)
[2021-05-14] MEDS: CETIRIZINE HCL 5 MG TABLET PO PRN (08:13)
[2021-05-14] MEDS ORDERED: POTASSIUM CL SA 10 MEQ TAB PO ONE (09:00)
[2021-05-14] MEDS: SOD FERRIC GLUC COMPLX/SUCROSE 125 MG in NA CHLORIDE 0.9% 100 ML IV SCH (10:00)
--- NOTE | 2021-05-14 14:47 | P.PN ---
Subjective Date of Service: 05/14/21 Chief Complaint: SOB, Sore Throat Subjective: Improving (Overall feeling a little bit better, throat pain slightly better today, nasal drainage improved today. Still has not gotten a replacement mask for her NIV. Patient states she is now more agreeable to long- term/placement) Review of Systems 10-point ROS is otherwise unremarkable Physical Examination - Vital Signs Temperature: 98.8 F Blood Pressure: 112/59 Pulse: 60 Respirations: 21 Pulse Ox (%): 94 Assessment & Plan Physician Review Additional Text: Physical exam General: Alert/oriented, NAD HEENT: Normal conjunctiva, sclera anicteric, no oral lesions CV: Regular rate and rhythm, mild bilateral lower extremity edema Pulmonary: Diminished bilaterally, on 6L NC Abdomen: Soft, nontender, nondistended MSK: No joint tenderness Problem list Acute on chronic hypoxemic respiratory failure secondary to CHF and COPD exacerbation Acute on chronic CHF exacerbation Acute on chronic COPD exacerbation Anemia of chronic disease, and iron deficiency Throat Pain Hypertension Hyperlipidemia Morbid obesity Recent COVID-19 infection GERD -Hypercarbia appears to be at patient's baseline, she is alert and oriented -Continue steroids, nebs, diuretics -Patient with possible esophageal candidiasis given recent prolonged steroid use, recent hospitalization -Fluconazole started 05/09, PO lidocaine ordered - encouraged to try lidocaine -Pulmonology consulted -Pt has NIV, but mask is torn and unable to use it - will have nursing staff contact company for new mask -hemoglobin downtrended, work-up consistent with iron deficiency/chronic disease. Iron significantly dropped compared to last month -Started IV iron 05/10 -transfused 1u PRBC on 05/12 -Restarted home cetirizine, and Flonase on 05/13 -Awaiting for replacement mask for patient's home NIV Dispo: industrial services worker consulted for potential placement. Patient reliant on NIV and oxygen, does not have much help at home. Very high risk bounce back Time Spent Managing Pts Care (In Minutes): 35
[2021-05-14] MEDS: ROPINIROLE HCL 1 MG TAB PO SCH (20:24)
[2021-05-14] MEDS: HYDROCODONE/APAP 5/325 MG TAB PO PRN (20:25)
[2021-05-15] MEDS: clonazePAM 0.5 MG TAB PO PRN (00:54)
[2021-05-15] MEDS: IPRATROPIUM BROM 0.5MG/2.5ML NEB SCH ×4 (01:50→19:30)
[2021-05-15 03:52] LABS: Absolute Lymphocytes (CBC) 1.3 K/uL (0.7-4.9); Basophils % 0.1 % (0-1.3); Hematocrit 31.3 % (36.0-45.0); MPV 7.3 fL (7.6-11.3); RBC Red Blood Cell Count 3.64 M/uL (3.86-4.86)
[2021-05-15 04:09] LABS: C-Reactive Protein 2.93 mg/L (<3.00); Potassium 4.7 mmol/L (3.5-5.1)
--- NOTE | 2021-05-15 07:42 | RAD REPORT ---
EXAM DESCRIPTION: RAD - Barium Swallow Modified - 05/14/2021 2:44 pm CLINICAL HISTORY: feels food is getting stuck in throat Imaging system malfunction precluded earlier dictation. COMPARISON: None. TECHNIQUE: The patient was given liquid, semi-solid and solid forms of barium. Lateral view fluorosc opic imaging was performed in conjunction with speech pathology service. FINDINGS: Cineloop acquisitions: 13 Fluoro time: 2 minutes 9 seconds Laryngeal penetration cleared with thin by cup and with pill Pharyngeal residue: vallecular and pyriform mild with luis cracker mild esophageal stasis/ dysmotility with solid and thin IMPRESSION: Modified barium swallow as summarized above and fully detailed on speech pathology repor tXin
[2021-05-15] MEDS: FLUTICASONE 50MCG NASAL SPRAY NAS SCH ×2 (09:00→20:25)
[2021-05-15] MEDS: ARFORMOTEROL TARTRATE 15 MCG/2 ML VIAL.NEB NEB SCH ×2 (09:27→19:30)
[2021-05-15] MEDS: PANTOPRAZOLE 40MG TABLET PO SCH (09:44)
[2021-05-15] MEDS: ROFLUMILAST 500 MCG TABLET PO SCH (09:44)
[2021-05-15] MEDS: FLUCONAZOLE 100 MG TAB PO SCH (09:44)
[2021-05-15] MEDS: acetaZOLAMIDE 250 MG TAB PO SCH ×2 (09:44→20:12)
[2021-05-15] MEDS: predniSONE 20 MG TAB PO SCH ×2 (09:45→16:09)
[2021-05-15] MEDS: ASPIRIN 81 MG CHEWABLE TABLET PO SCH (09:45)
[2021-05-15] MEDS: LIDOCAINE VISCOUS 2% SOLN 15 ML UDC PO PRN (09:45)
[2021-05-15] MEDS: GABAPENTIN 300 MG CAP PO SCH ×2 (09:45→20:12)
[2021-05-15] MEDS: SOD FERRIC GLUC COMPLX/SUCROSE 125 MG in NA CHLORIDE 0.9% 100 ML IV SCH (09:56)
--- NOTE | 2021-05-15 17:40 | P.PN ---
Subjective Date of Service: 05/15/21 Chief Complaint: SOB, Sore Throat Patient has no new complain. She is maintained on 4-5 L oxygen by nasal cannula. Physical Examination - Vital Signs Temperature: 97.7 F Blood Pressure: 134/68 Pulse: 67 Respirations: 20 Pulse Ox (%): 90 - Physical Exam General: Alert, In no apparent distress HEENT: Mucous membr. moist/pink Neck: JVD not distended Respiratory: Diminished (Bilateral), Expiratory wheezes Cardiovascular: No edema, Regular rate/rhythm, Normal S1 S2 Gastrointestinal: Soft and benign, Non-distended, No tenderness Musculoskeletal: No swelling, No tenderness Integumentary: No rashes, No erythema Neurological: Normal strength at 5/5 x4 extr Assessment And Plan Physician Review: Patient Assessed, Agree with Above Assessment and Plan Physician Review Additional Text: Problem list Acute on chronic hypoxemic respiratory failure secondary to CHF and COPD exacerbation Acute on chronic CHF exacerbation Acute on chronic COPD exacerbation Anemia of chronic disease, and iron deficiency Throat Pain Hypertension Hyperlipidemia Morbid obesity Recent COVID-19 infection GERD -Hypercarbia appears to be at patient's baseline, she is alert and oriented -Continue steroids, nebs, diuretics -Patient with possible esophageal candidiasis given recent prolonged steroid use, recent hospitalization -Fluconazole started 05/09, PO lidocaine ordered. -Pulmonology consulted -Pt has NIV, but mask is torn and unable to use it - will have nursing staff contact company for new mask -hemoglobin downtrended, work-up consistent with iron deficiency/chronic disease. Iron significantly dropped compared to last month -Started IV iron 05/10 -transfused 1u PRBC on 05/12 -Restarted home cetirizine, and Flonase on 05/13 -Awaiting for replacement mask for patient's home NIV Dispo: tax services specialist consulted for potential placement. Patient reliant on NIV and oxygen, does not have much help at home. Very high risk bounce back. Patient declined alf placement.
[2021-05-15] MEDS: HYDROCODONE/APAP 5/325 MG TAB PO PRN (20:12)
[2021-05-15] MEDS: ROPINIROLE HCL 1 MG TAB PO SCH (20:12)
[2021-05-16] MEDS: IPRATROPIUM BROM 0.5MG/2.5ML NEB SCH ×3 (01:25→14:25)
[2021-05-16] MEDS: PANTOPRAZOLE 40MG TABLET PO SCH (08:15)
[2021-05-16] MEDS: GABAPENTIN 300 MG CAP PO SCH (08:15)
[2021-05-16] MEDS: CETIRIZINE HCL 5 MG TABLET PO PRN (08:15)
[2021-05-16] MEDS: FLUCONAZOLE 100 MG TAB PO SCH (08:15)
[2021-05-16] MEDS: predniSONE 20 MG TAB PO SCH ×2 (08:15→16:29)
[2021-05-16] MEDS: ASPIRIN 81 MG CHEWABLE TABLET PO SCH (08:15)
[2021-05-16] MEDS: ROFLUMILAST 500 MCG TABLET PO SCH (08:15)
[2021-05-16] MEDS: acetaZOLAMIDE 250 MG TAB PO SCH (08:15)
[2021-05-16] MEDS: FLUTICASONE 50MCG NASAL SPRAY NAS SCH (08:16)
[2021-05-16] MEDS: ARFORMOTEROL TARTRATE 15 MCG/2 ML VIAL.NEB NEB SCH (09:45)
[2021-05-16] MEDS: HYDROCODONE/APAP 5/325 MG TAB PO PRN (10:01)
[2021-05-16] MEDS: BENZONATATE 100 MG CAP PO PRN (10:01)
[2021-05-16] MEDS: SOD FERRIC GLUC COMPLX/SUCROSE 125 MG in NA CHLORIDE 0.9% 100 ML IV SCH (10:11)
[2021-05-16 13:20] VITALS: BP 115/56; TEMP 97.3
--- NOTE | 2021-05-16 16:15 | P.DS ---
Admission Date: 05/08/21 Discharge Date: 05/16/21 Disposition: DC HOME/HOME HEALTH CARE Discharge Condition: FAIR Reason for Admission: SOB, Sore Throat Consultations: Pulmonary-Dr. Do. Brief History of Present Illness: 60-year-old female with a past medical history significant for CHF, COPD, hypertension, HLD, chronic respiratory failure, on NIV at home, history of recurrent admissions for COPD presented with complaint of shortness of breath and sore throat. She was hospitalized for Covid 19 infection and was discharged home 2 weeks prior. Patient is on home O2 therapy at 2 to 3 L/min. Patient reported hypoxia with ambulation. Chest x-ray in the ED demonstrated multifocal pneumonia versus pulmonary edema. Patient admitted for further management. Hospital Course: Problem list Acute on chronic hypoxemic respiratory failure secondary to CHF and COPD exacerbation Acute on chronic CHF exacerbation Anemia of chronic disease, and iron deficiency Throat Pain Hypertension Hyperlipidemia Morbid obesity Recent COVID-19 infection GERD -patient admitted to the medical floor. Required up to 9 L of oxygen by nasal cannula. -she was treated for COPD exacerbation with IV steroid, scheduled bronchodilators and diuretics he -Hypercarbia appears to be at patient's baseline, she is alert and oriented -she was also diagnosed with possible esophageal candidiasis given recent prolonged steroid use, recent hospitalization and treated with oral fluconazole. Patient to complete 2 weeks of treatment. -seen in consultation by Pulmonology. -Pt uses NIV at home I was complaining of broken face mask. Oxygen company is replacing her facemask -hemoglobin downtrended, work-up consistent with iron deficiency/chronic disease. Iron significantly dropped compared to last month -patient treated with iron therapy. -she was transfused 1u PRBC. -she has clinically improved to baseline and deemed stable for discharge. Vital Signs/Physical Exam: Temp Pulse Resp BP Pulse Ox 97.3 F 69 25 H 115/56 L 97 05/16/21 12:00 05/16/21 12:00 05/16/21 12:00 05/16/21 12:00 05/16/21 12:00 General: Alert, In no apparent distress, Oriented x3 HEENT: Mucous membr. moist/pink Neck: JVD not distended Respiratory: Other (Nonlabored breathing.) Cardiovascular: Regular rate/rhythm, Normal S1 S2 Gastrointestinal: Non-distended Neurological: Normal strength at 5/5 x4 extr Laboratory Data at Discharge: WBC 13.20 K/uL (4.3-10.9) H D 05/15/21 03:30 Hgb 9.6 g/dL (12.0-15.0) L 05/15/21 03:30 Hct 31.3 % (36.0-45.0) L 05/15/21 03:30 Plt Count 239 K/uL (152-406) 05/15/21 03:30 PT 13.8 SECONDS (9.5-12.5) H 05/08/21 14:56 INR 1.20 05/08/21 14:56 Sodium 138 mmol/L (136-145) 05/15/21 03:30 Potassium 4.7 mmol/L (3.5-5.1) 05/15/21 03:30 BUN 23 mg/dL (7-18) H 05/15/21 03:30 Creatinine 0.73 mg/dL (0.55-1.3) 05/15/21 03:30 Glucose 166 mg/dL (74-106) H 05/15/21 03:30 Magnesium 2.0 mg/dL (1.8-2.4) 05/15/21 03:30 Total Bilirubin 0.2 mg/dL (0.2-1.0) 05/12/21 05:25 AST 26 U/L (15-37) 05/12/21 05:25 ALT 48 U/L (12-78) 05/12/21 05:25 Alkaline Phosphatase 56 U/L (45-117) 05/12/21 05:25 Home Medications: Atorvastatin Calcium [Lipitor*] 20 mg PO BEDTIME 10/23/20 Gabapentin 300 mg PO BID 10/23/20 Roflumilast [Daliresp*] 500 mcg PO DAILY 10/23/20 Umeclidinium Brm/Vilanterol Tr [Anoro Ellipta 62.5-25 Mcg INH] 1 puff IN DAILY 10/23/20 clonazePAM [Klonopin*] 0.5 mg PO DAILY PRN 10/23/20 Tramadol HCl [Ultram] 50 mg PO TID PRN 30 Days #60 tablet 11/21/20 Pantoprazole [Protonix Tab*] 40 mg PO DAILY 02/14/21 Ropinirole HCl [Requip*] 1 mg PO BEDTIME 02/14/21 Ascorbic Acid [Vitamin C*] 500 mg PO QID #120 tablet 04/18/21 Cetirizine HCl [Zyrtec*] 10 mg PO DAILY PRN #30 tablet 04/18/21 Cholecalciferol (Vitamin D3) [Vitamin D 5,000 IU Cap*] 5,000 unit PO DAILY #30 cap 04/18/21 Thiamine HCl [Vitamin B-1*] 200 mg PO DAILY #60 tablet 04/18/21 Zinc Sulfate [Zinc Sulfate*] 220 mg PO DAILY #30 cap 04/18/21 acetaZOLAMIDE [Diamox*] 250 mg PO BID #60 tab 04/18/21 Albuterol Sulfate [Albuterol Sulfate Hfa] 8.5 gm IH TID #1 [id number] 04/24/21 Benzonatate [Tessalon Perle*] 100 mg PO TID PRN #30 cap 05/16/21 Fluconazole 200 mg PO DAILY #7 tablet 05/16/21 Fluticasone [Flonase 50MCG Nasal [place]*] 1 sprays MINERVA BID #1 btl 05/16/21 Lidocaine Viscous 2% Soln [Xylocaine Viscous Oral 2%*] 15 ml PO TID PRN #30 udc 05/16/21 predniSONE [Prednisone*] 20 mg PO BIDWM #21 tab 05/16/21 New Medications: Fluticasone [Flonase 50MCG Nasal [place]*] 1 sprays [place] BID #1 btl Fluconazole 200 mg PO DAILY #7 tablet predniSONE [Prednisone*] 20 mg PO BIDWM #21 tab Benzonatate [Tessalon Perle*] 100 mg PO TID PRN #30 cap PRN Reason: Cough Lidocaine Viscous 2% Soln [Xylocaine Viscous Oral 2%*] 15 ml PO TID PRN #30 udc PRN Reason: Sore Throat Diet: AHA Activity: Ad kristopher Followup: Isai Do MD [ACTIVE - CAN ADMIT] - 1 Week NONE,NONE [Primary Care Provider] - Time spent managing pt's care (in minutes): 40
[2021-05-16 17:02] VITALS: O2SAT 94
== END 2021-05-16 17:29 | disposition home health service (06) | DRG 291 ==
LOC: ER 14:07 → ERHOLD 17:30 → 4TH 23:11
PROVIDERS: ADMIT Hospitalist; ATTEND Hospitalist
DX: I11.0 Hypertensive heart disease with heart failure (principal); J96.21 Acute and chronic respiratory failure with hypoxia; J96.22 Acute and chronic respiratory failure with hypercapnia; J44.1 Chronic obstructive pulmonary disease with (acute) exacerbation; B37.81 Candidal esophagitis; I50.23 Acute on chronic systolic (congestive) heart failure; E03.9 Hypothyroidism, unspecified; F31.9 Bipolar disorder, unspecified; G47.33 Obstructive sleep apnea (adult) (pediatric); E78.5 Hyperlipidemia, unspecified; Z68.37 Body mass index [BMI] 37.0-37.9, adult; K21.9 Gastro-esophageal reflux disease without esophagitis; I27.20 Pulmonary hypertension, unspecified; D50.9 Iron deficiency anemia, unspecified; E66.01 Morbid (severe) obesity due to excess calories; Z86.16 Personal history of COVID-19; Z99.81 Dependence on supplemental oxygen; Z20.822 Contact with and (suspected) exposure to COVID-19
CPT/HCPCS: 36415; 71045; 74230; 80048; 80053; 81001; 81003; 81015; 82728; 82805; 83540; 83735; 83880; 84145; 84466; 84484; 85014; 85018; 85025; 85044; 85610; 86140; 86850; 86900; 86901; 87070; 87081; 87086; 87088; 92611; 93005; 94640; 94660; 99285; J1940; J2916; J7050; J7512; J7605; P9016; U0003

== ENCOUNTER 2021-08-08 15:12 | Inpatient (IN) | payer OTHER ==
--- OUTSIDE RECORDS SUMMARY | 2021-08-08 15:17 | XMS REPORT | Continuity of Care Document ---
:1960 Author Organization [facility] t Address [address] [place] [address] Care Team Providers Name Role Phone Dean Rome Primary Care Physician Koki King MD Attending Clinician KOKI KING Attending Clinician Unavailable [facility] Attending Clinician Unavailable Doctor Unassigned, Name Attending Clinician Unavailable Иван Higgins MD Attending Clinician David CARDONA M Attending Clinician Mykel DIETRICH Attending Clinician Milton Gonzales MD Attending Clinician Emelina DIETRICH Attending Clinician Jordin DIETRICH Attending Clinician Moreno Almaraz MD Attending Clinician Gume COON Attending Clinician Kartik CARDONA Attending Clinician Gita DIETRICH Attending Clinician GUME Attending Clinician Unavailable ALYSIA BLACK Attending Clinician Unavailable Mohit RODRIGUEZ Attending Clinician Unavailable KELLY Attending Clinician Unavailable Jordin DIETRICH Admitting Clinician Gita DIETRICH Admitting Clinician KELLY Admitting Clinician Unavailable Payers Payer Name Policy Type Policy Number Effective Date Expiration Date Milton patricia [facility] [id number] 2012 00:00:00 PLUS Problems Condition Condition Condition Status Onset Resolution Last Treating Co mments Source Name Details Category Date Date Treatment Clinician Date COPD COPD Disease Active Univers (chronic (chronic 2-21 [place]y of obstruct[place] Medical pulmonary pulmonary Bran ch disease) disease) Acute on Acute on Disease Active Unive rs chronic chronic 2-17 ity of diastolic diastolic 00:00: Roxanne lockwood congestive congestive 00 Me dical heart heart Branch failure failure Essential Essential Disease Active Uni vers hypertensi hypertensi 2-17 it y of on on 00:00: [place] [facility] Other Other Disease Active Univers hyperlipid hyperlipid 2-17 it y of emia emia 00:00: [place] [facility] Respirator Respirator Disease Active U nivers y failure y failure 2-16 ity of 00:00: [place] [facility] Obesity Obesity Disease Active Univers (BMI (BMI 9-11 ity of 30-39.9) 30-39.9) 00:00: [place] [facility] Morbid Morbid Disease Active Univers obesity obesity 1-15 ity of with body with body 00:00: Roxanne lockwood mass index mass index 00 Me dical of of Branch 40.0-49.9 40.0-49.9 Tobacco Tobacco Disease Active [facility] Hypoxemia Hypoxemia Disease [facility] Acute Acute Disease Active [facility] hypercapni hypercapni 6-05 Pema kes - c c 00:00: Medical respirator respirator 00 Ce nter y failure y failure Chronic Chronic Disease Active Univers obstructiv obstructiv it y of e e [place] pulmonary pulmonary Medi derrick disease disease Branch with acute with acute exacerbati exacerbati on on VIVEK on VIVEK on Disease Active Univers CPAP CPAP ity of [facility] Hypothyroi Hypothyroi Disease Active U nivers dism dism ity of [facility] Bipolar Bipolar Disease Active Univers affective affective ity of disorder disorder [facility] Wears Wears Disease Active Univers partial partial ity of dentures dentures [facility] Allergies, Adverse Reactions, Alerts Allergy Allergy Status Severity Reaction(s) Onset Inactive Treating Comm ents Source Name Type Date Date Clinician CODEINE DRUG Active Med ITCHING 2014-09 Univers INGREDI 10-31 ity of 00:00: [place] 00 [facility] Codeine Propensi Active Itching 2014-09 Per pt Univer s ty to 10-31 she is no ity of adverse 00:00: longer [place] reaction 00 allergic Medica l s to to Branch drug codeine Social History Social Habit Start Date Stop Date Quantity Comments Source History SDOH University o f Alcohol Frequency [facility] edical Branch History SDOH University o f Alcohol Std [place] [facility] Drinks Branch History SDOH University o f Alcohol Binge [facility] al Branch History of Cigarette Smoker Universi ty of tobacco use [facility] Alcohol intake 2021-06-15 2021-06-15 0 /d University of 00:00:00 00:00:00 [facility] Alcohol Comment 2020-11-12 2020-11-12 occasionally Univers ity of 00:00:00 00:00:00 [facility] Tobacco Comment 2020-11-12 2020-11-12 1-1.5 packs a day, U niversity of 00:00:00 00:00:00 quit 2018 [facility] Tobacco use and 2019-05-28 2019-05-28 Never used Universit y of exposure 00:00:00 00:00:00 [facility] Sex Ass[birth year] At [birth year] Universit y of 00:00:00 00:00:00 [facility] Smoking Status Start Date Stop Date Source Former smoker 2019-05-28 00:00:00 2019-05-28 00:00:00 Universi ty of [facility] Medications Ordered Filled Start Stop Current Ordering Indication Dosage Frequency Signature Comments Components Source Medication Medication Date Date Medication? Clinician (SIG) Name Name carvedilol Yes 3.125mg Take 3.125 Univers (COREG) 9-24 mg by ity of 3.125 mg 14:31: mouth 2 [place] tablet 41 (two) Medical times Branch daily with meals. traMADol 50 Yes 50mg Take 50 mg Univers mg tablet 9-24 by mouth 3 ity of 14:31: (three) [place] 41 times Medical daily. Branch DALIRESP Yes Univers 500 mcg 9- ity of tablet 00:00: [place] 00 Medical Branch predniSONE Yes 10mg Take 10 mg U nivers 10 mg 8-31 by mouth ity of tablet 00:00: daily. Medical Branch predniSONE Yes TAKE 1 Unive rs 20 mg 8-26 TABLET BY ity of tablet 00:00: MOUTH [place] 00 TWICE Medical DAILY FOR Branch 7 DAYS THEN 1 TABLET FOR 7 DAYS benzonatate Yes TAKE 1 Univ ers 100 mg 8-25 CAPSULE BY ity of capsule 00:00: MOUTH [place] 00 THREE Medical TIMES Branch DAILY NEEDED FOR COUGH fluconazole Yes 200mg Take 200 U nivers 200 mg 8-25 mg by ity of tablet 00:00: mouth [place] 00 every Medical morning. Branch POLY-IRON Yes Take by Univ ers 150 mg iron 8-25 mouth ity of capsule 00:00: daily. Medical Branch LIDOCAINE Yes TAKE 15ML Uni vers VISCOUS 2 % 8-25 BY MOUTH ity of solution 00:00: THREE [place] 00 TIMES Medical DAILY Branch NEEDED FOR SORE THROAT ELIQUIS 5 Yes 5mg Take 5 mg Uni vers mg tablet 7-28 by mouth 2 ity of 00:00: (two) [place] 00 times Medical daily. Branch docusate Yes TAKE 2 Univers 100 mg 7-28 CAPSULES ity of capsule 00:00: BY MOUTH [place] 00 TWICE Medical DAILY. Branch nystatin Yes SHAKE Univers 100,000 7-28 LIQUID AND ity of unit/mL 00:00: TAKE 5 ML [place] suspension 00 BY MOUTH Medic al THREE Branch TIMES DAILY zinc Yes 220mg Take 220 Univers sulfate 50 7-28 mg by ity of mg zinc 00:00: mouth [place] (220 mg) 00 daily. Medical capsule Branch acetaZOLAMI Yes 250mg Take 250 U nivers DE 250 mg 7-28 mg by ity of tablet 00:00: mouth 2 [place] 00 (two) Medical times Branch daily. albuterol Yes 2.5mg Inhale 2.5 U nivers (PROVENTIL) 2-25 mg every 4 it y of 2.5 mg /3 16:35: (four) [place] mL (0.083 55 hours as Medica l %) needed for Branch nebulizer Wheezing solution or Shortness of Breath. albuterol Yes 2{puff} Inhale 2 U nivers (PROAIR 2-25 Puffs ity of HFA) 90 16:35: every 6 [place] mcg/actuati 55 (six) Medical on inhaler hours as Branc h needed for Wheezing or Shortness of Breath. atorvastati Yes 20mg Take 20 mg Univers n 20 mg 2-25 by mouth ity of tablet 16:35: at [place] 55 bedtime. Medical Branch clonazePAM Yes .5mg Take 0.5 Uni vers 0.5 mg 2-25 mg by ity of tablet 16:35: mouth as [place] 55 needed. Medical Branch umeclidiniu Yes Inhale. Uni vers m-vilantero 2-25 ity of l (ANORO 16:35: [place] ELLIPTA) 55 Medical 62.5-25 Branch mcg/actuati on inhalation disk guaiFENesin Yes [id number] 100mg Take 5 mL Univers 100 mg/5 mL 2-25 by mouth ity of solution 00:00: every 4 [place] 00 (four) Medical hours as Branch needed for Cough. furosemide Yes [id number] 40mg Take 2 Univers 20 mg 2-25 tablets by ity of tablet 00:00: mouth [place] 00 daily. Medical Branch pantoprazol Yes 40mg Take 1 Univ ers e 40 mg EC 2-21 tablet by ity of tablet 00:00: mouth [place] 00 daily. Medical Branch gabapentin Yes 300mg Take 1 Univ ers 300 mg 2-20 capsule by ity of capsule 00:00: mouth 2 [place] 00 (two) Medical times Branch daily. melatonin 3 Yes 6mg Take 2 Univ ers mg tablet 2-20 tablets by ity of 00:00: mouth at [place] 00 bedtime. Medical Branch fluticasone Yes 1{spray Use 1 Un merry propionate 6-24 } [place] in ity o f 50 00:00: each [place] mcg/actuati 00 nostril Medic al on nasal daily. [place] spray latanoprost Yes 1[drp] Place 1 U nivers 0.005 % 6- [place] in ity of ophthalmic 00:00: [place] eyes [place] drops 00 daily. [facility] Branch predniSONE Yes Take 4 [facility] mouth daily Take by mouth as directed.. Vital Signs Vital Name Observation Time Observation Value Comments Source Systolic blood 2021-06-15 19:50:00 131 mm[Hg] [facility] [place] [facility] Diastolic blood 2021-06-15 19:50:00 73 mm[Hg] [facility] Heart rate 2021-06-15 19:50:00 91 /min [facility] Respiratory rate 2021-06-15 19:50:00 30 /min [facility] acute hospital Body height 2021-06-15 19:50:00 175.3 cm [facility] Body weight 2021-06-15 19:50:00 114.76 kg [facility] BMI 2021-06-15 19:50:00 37.36 kg/m2 [facility] Procedures This patient has no known procedures. Encounters Start End Encounter Admission Attending Care Care Encounter Source Date/Time Date/Time Type Type Clinicians Facility Department ID 2021-07-22 Emergency [facility] [id number] Univers 00:20:26 ity [facility] [place] [facility] 2021-07-21 Emergency [facility] [id number] Univers 23:41:39 [facility] 2021-06-15 2021-06-15 Office Christa King [facility] Michael [id number] [facility] 14:04:32 15:05:28 Visit Koki Girard [id number] it y of Women's [id number] [facility] [id number] [address] 2021-06-15 2021-06-15 [facility]patient [facility] [id number] Univers 14:30:00 14:30:00 [id number] ity [facility] [place] [facility] 2021-06-15 2021-06-15 Outpatient Pepper KING [facility] [id number] Univers 14:30:00 14:30:00 ity [facility] [place] [facility] 2021-06-08 2021-06-08 Outpatient Pepper KING [facility] [id number] Univers 14:00:00 14:00:00 [id number] ity [facility] [place] [facility] 2021-06-08 2021-06-08 Outpatient Pepper KING [facility] [id number] Univers 14:00:00 14:00:00 ity [facility] [place] [facility] 2021-06-04 2021-06-04 Outpatient JESSE GOMEZ [facility] [id number] Univers 13:00:00 13:00:00 [id number] ity [facility] [place] [facility] 2021-06-04 2021-06-04 Outpatient Pepper ARREDONDO JESSE [facility] [id number] Univers 13:00:00 13:00:00 ity [facility] [place] [facility] 2021-01-25 2021-01-25 Orders Doctor NESS [id number] 00:00:00 00:00:00 Only UnassignedVIRGILIO [id number] [facility] 4.2.7.2.686 [id number] 2021-01-15 2021-01-15 Orders Doctor NESS [id number] 00:00:00 00:00:00 Only UnassignedVIRGILIO [id number] [place] [facility] 4.2.7.2.686 [id number] [id number] 2020-11-17 2020-11-17 Jimmy Higgins [facility] [id number] 00:00:00 00:00:00 Management [facility] [id number] [facility] 4.2.7.2.686 CENTER [id number] [facility] 2020-11-17 2020-11-17 Transition Molly Hernandez 1.2.840.114 [id number] 00:00:00 00:00:00 of Care Viviana Person Aram [id number] [place] 4.2.7.2.686 [id number] 2020-11-12 2020-11-16 [facility] Jeronimo Hogue 1.2.840.1 [id number] 18:33:00 16:20:00 Encounter Julian [id number] [facility] 4.2.7.2.686 Sammie Tarango [id number] Nash Brenner 095 Chu Almaraz MorenoNash Harris Krishna Moreno 2020-11-14 2020-11-14 Telephone [facility] 1.2.840.114 [id number] 00:00:00 00:00:00 samuel, MAXI [id number] [facility] 4.2.7.2.686 CENTER AT [id number] VIKLivia [address] [place] [address] 2020-11-13 2020-11-13 Transition Molly Verdugo 1.2.840.114 [id number] 00:00:00 00:00:00 of Care Lizbeth Chiu [id number] [facility] 4.2.7.2.686 [id number] 2020-11-07 2020-11-11 [facility] Jeronimo Hogue [facility] 1.2.840.1 [id number] 06:48:00 14:50:00 Encounter Adán Pelayo [id number] Jeronimo Hogue 4.2.7.2.686 Adán Pelayo Dickens [id number] 2020-07-12 2020-07-12 [facility] 1.2.840.114 [id number] 11:56:24 23:59:00 Encounter samuel, Pediatric [id number] Shibi s and 4.2.7.2.686 Adult [id number] Primary 809 Care [facility] 2020-07-12 2020-07-12 Office Hillary Ybarra 1.2.840.114 [id number] 11:00:10 13:58:54 Visit samuel Pediatric [id number] Shibi s and 4.2.7.2.686 Adult [id number] Primary 198 Care [facility] 2020-07-12 2020-07-12 Outpatient R HILLARY [facility] [id number] Univers 11:00:00 11:00:00 SAMUEL [id number] ity [facility] 2020-07-12 2020-07-12 Outpatient R HILLARY [facility] [id number] Univers 11:00:00 11:00:00 keisha RAMIREZ [facility] 2020-07-11 2020-07-11 Outpatient R SOFIA [facility] [id number] Univers 09:40:00 09:40:00 JETHRO ity [facility] [place] [facility] 2020-07-03 2020-07-03 Orders Doctor THI 1.2.840.114 [id number] 00:00:00 00:00:00 Only Unassigned, VIRGILIO 350.1.13.10 [facility] 4.2.7.2.686 [id number] 2020-06-02 2020-06-02 Outpatient R JENNIFER [facility] [id number] Univers 13:00:00 13:00:00 [id number] 2020-[facility]-02 2020-06-02 Outpatient R JENNIFER [facility] [id number] Univers 13:00:00 13:00:00 TEVIN valdes [facility] [place] [facility] 2020-05-26 2020-05-26 Outpatient R JENNIFER [facility] [id number] Univers 10:45:00 10:45:00 TEVIN ity [facility] [place] [facility] 2020-05-26 2020-05-26 Outpatient R JENNIFER [facility] [id number] Univers 10:45:00 10:45:00 TEVIN [facility] 2020-05-12 2020-05-12 Outpatient R ADUM, [facility] [id number] Univers 13:00:00 13:00:00 TEVIN [id number] [facility] 2020-05-12 2020-05-12 Outpatient R ADUM, [facility] [id number] Univers 13:00:00 13:00:00 TEVIN [facility] 2020-04-25 2020-04-25 Outpatient R ADUM, [facility] [id number] Univers 16:00:00 16:00:00 TEVIN [facility] 2020-04-25 2020-04-25 Outpatient R ADUM, [facility] [id number] Univers 00:00:00 00:00:00 TEVIN [facility] 2020-04-20 2020-04-20 Outpatient R ADUM, [facility] [id number] Univers 00:00:00 00:00:00 TEVIN [facility] 2020-04-14 2020-04-14 Outpatient R ADUM, [facility] [id number] Univers 13:30:00 13:30:00 TEVIN [id number] [facility] 2020-04-14 2020-04-14 Outpatient R ADUM, [facility] [id number] Univers 13:30:00 13:30:00 TEVIN [facility] Results Test Description Test Time Test Comments [...] NOT 1092) ACCURATE CRE ATININE CLEARANCE IN [place] EDICTING GLOMERULAR FILT RATION RATE. ESTIMATED GFR [...] 0-0 (BEAKER) (test code = 413) 0.00POCT-GLUCOSE [id number] 17:50:00 Test Item Value Reference Range Interpretation Comments POC-GLUCOSE METER 118 mg/dL 70-110 H TESTED AT [place] [address] ([facility]) (test code = KISHA BLAKELY 1538) [address] POCT-GLUCOSE [id number] 11:59:00 Test Item Value Reference Range Interpretation Comments POC-GLUCOSE METER 247 mg/dL 70-110 H TESTED AT [facility] [address] ([facility]) (test code = KISHA [place] 1538) [address] POCT-GLUCOSE [id number] 07:54:00 Test Item Value Reference Range Interpretation Comments POC-GLUCOSE METER 141 mg/dL 70-110 H TESTED AT [facility] 67[address] (BEAKER) (test code = KISHA Pabon [facility] 1538) [address] CBC W/PLT COUNT & AUTO [id number] 03:45:00 Test Item Value Reference Range Interpretation [...] K/ L 0.00-0.20 (test code = 417) [id number] 03:29:00 Test Item Value Reference Range Interpretation Comments MAGNESIUM (BEAKER) 1.8 mg/dL 1.6-2.6 Specimen slightly (test code = 627) hemolyzed BASIC METABOLIC [id number] 03:29:00 Test Item Value Reference Range Interpretation [...] NOT APPLICABLE FOR DIALYSIS PATIEN TS. POCT-GLUCOSE [id number] 00:05:00 Test Item Value Reference Range Interpretation Comments POC-GLUCOSE METER 117 mg/dL 70-110 H TESTED AT [facility] 67[address] (BEAKER) (test code = KISHA Pabon [facility] 1538) [address] POCT-GLUCOSE [id number] 18:17:00 Test Item Value Reference Range Interpretation Comments POC-GLUCOSE METER 141 mg/dL 70-110 H TEST[facility] AT [facility] (test code = KISHA [place]ab[place] 1538) [address] CREATINE KINASE (CK), TOTAL AND [id number] 15:43:00 Test Item Value Reference Range Interpretation Comments CREATINE KINASE TOTAL (BEAKER) 31 U/L 29-200 (test code = 380) CREATINE KINASE-MB (BEAKER) (test 1.3 ng/mL 0.0-6.6 code = 750) CREATINE KINASE-MB INDEX (BEAKER) 4.2 % (test code = 395) Effective 08/09/2014: CK-MB Reference Range ChangeNew: 0.0-6.6 Previous: 0.0-4.9CK-MB Reference Range:<6.7 Normal6.7-10.0 Borderline>10.0 AbnormalBLOOD GAS, [id number] 15:26:00 Test Item Value Reference Range Interpretation [...] (test code = 1819) 35.0 % POCT-GLUCOSE [id number] 11:45:00 Test Item Value Reference Range Interpretation Comments POC-GLUCOSE METER 122 mg/dL 70-110 H TESTED AT [facility] 67[address] (BEAKER) (test code = KISHA Pabon [facility] 1538) [address] CREATINE KINASE (CK), TOTAL AND [id number] 10:29:00 Test Item Value Reference Range Interpretation Comments CREATINE KINASE TOTAL (BEAKER) 31 U/L 29-200 (test code = 380) CREATINE KINASE-MB (BEAKER) (test 1.5 ng/mL 0.0-6.6 code = 750) CREATINE KINASE-MB INDEX (BEAKER) 4.8 % (test code = 395) Effective 08/09/2014: CK-MB Reference Range ChangeNew: 0.0-6.6 Previous: 0.0-4.9CK-MB Reference Range:<6.7 Normal6.7-10.0 Borderline>10.0 AbnormalTROPONIN [id number] 10:29:00 Test Item Value Reference Range Interpretation [...] renalfailure, acidosis, acute neurological disease, and persistent tachyarrhythmia.[id number] 10:22:00 Test Item Value Reference Range Interpretation Comments PARTIAL THROMBOPLASTIN TIME 22.5 seconds 22.5-36.0 (BEAKER) (test code = 760) PROTHROMBIN TIME/[id number] 10:21:00 Test Item Value Reference Range Interpretation Comments PROTIME (BEAKER) (test code = 12.4 seconds 11.7-14.7 759) INR (BEAKER) (test code = 370) 0.9 <=5.9 RECOMMENDED COUMADIN/WARFARIN INR THERAPY RANGESSTANDARD DOSE: 2.0 - 3.0 Includes: PROPHYLAXIS forvenous thrombosis, systemic embolization; TREATMENT for venous thrombosis and/or pulmonary embolus.HIGH RISK: Target INR is 2.5-3.5 for patients with mechanical heart valves.BLOOD GAS, [id number] 10:17:00 Test Item Value Reference Range Interpretation [...] (test code = 1819) 40.0 % PLATELET [id number] 10:13:00 Test Item Value Reference Range Interpretation Comments PLATELET COUNT (BEAKER) (test 111 K/CU MM 150-430 L code = 756)
[2021-08-08] MEDS ORDERED: METHYLPREDNISOLONE 125 MG INJ ONE (16:01)
[2021-08-08 16:08] LABS: Basophils % 0.5 % (0-1.3); Hematocrit 35.1 % (36.0-45.0); Lymphocytes % 13.3 % (15.3-44.8); RBC Red Blood Cell Count 4.06 M/uL (3.86-4.86)
[2021-08-08 16:39] LABS: Protime INR 0.97
--- NOTE | 2021-08-08 16:53 | RAD REPORT ---
EXAM DESCRIPTION: RAD - Chest Single View - 08/08/2021 4:19 pm CLINICAL HISTORY: SOB COMPARISON: May 09 TECHNIQUE: AP portable chest image was obtained 08/08/2021 4:19 pm . FINDINGS: No acute lung parenchymal process. Prominent interstitial pattern is similar to the compar xu. Large body habitus and under penetrated technique accentuate chest findings. Heart and vasculat ure are normal. No measurable pleural effusion and no pneumothorax. No acute bony abnormality seen. N o acute aortic findings suspected. IMPRESSION: No acute cardiopulmonary process. No significant change from comparison study.
[2021-08-08 17:01] LABS: ALT/SGPT 45 U/L (12-78); AST/SGOT 30 U/L (15-37); Albumin 3.1 g/dL (3.4-5.0); Alkaline Phosphatase 79 U/L (45-117); BUN Blood Urea Nitrogen 10 mg/dL (7-18); Bilirubin Direct 0.2 mg/dL (0-0.2); Bilirubin Total 0.6 mg/dL (0.2-1.0); Glucose Level 119 mg/dL (74-106); Magnesium 2.2 mg/dL (1.8-2.4); NT PRO-BNP 246 pg/mL (<125); Potassium 4.4 mmol/L (3.5-5.1); Protein, Total 6.9 g/dL (6.4-8.2); Sodium Level 144 mmol/L (136-145); Troponin (Emerg Dept Use Only) < 0.02 ng/mL (0.0-0.045)
[2021-08-08 17:08] LABS: Bicarbonate > 45 mmol/L (21-32)
--- NOTE | 2021-08-08 17:24 | ER ---
Nurse's Notes [facility] Name: Vikki Zamudio Age: 61 yrs Sex: Female : 1960 Arrival Date: 08/08/2021 Time: 15:20 Bed 5 Private MD: Billy Howard Diagnosis: COPD/ Chronic obstructive pulmonary disease with (acute) exacerbation;Hypoxia Presentation: 08/08 15:27 Chief complaint: Patient states: i use 3L at oxygen. i was getting ready to go to the 2 doctors. i have a portable pack and i wasn't paying attention and i only turned it to 2. and i should of put it on 3 or 4. by the time i got to the doctors office i was at 41% when i get in. the doctor said he couldn't see me. i was too low and it was dangerous. the doctor said i needed some blood work done Spouse and/or significant other states: she was at Dr. Morrison across [employer] and her oxygen 41%. she was not making much since. Coronavirus screen: At this time, the client does not indicate any symptoms associated with coronavirus-19. Ebola Screen: Patient denies travel to an Ebola-affected area in the 21 days before illness onset. Initial Sepsis Screen: Does the patient meet any 2 criteria? RR > 20 per min. Does the patient have a suspected source of infection? No. Patient's initial sepsis screen is negative. Risk Assessment: Do you want to hurt yourself or someone else? Patient reports no desire to harm self or others. Onset of symptoms was August 08, 2021. 15:27 Method Of Arrival: Wheelchair tw2 15:27 Acuity: LIZETH 2 tw2 20:30 Note report called to the 2nd floor, David RN will be assuming care of this pt. PT at [facility] the bs and ready for transport. Belongings sent with pt. Triage Assessment: 15:33 General: Appears in no apparent distress. Behavior is calm, cooperative, appropriate tw2 for age. Pain: Denies pain. Respiratory: Reports shortness of breath at rest on exertion Onset: The symptoms/episode began/occurred while driving to the doctor, the patient has moderate shortness of breath. Historical: - Allergies: 19:03 Codeine; jl7 19:03 Morphine; jl7 - Home Meds: 15:32 acetazolamide 125 mg Oral tab 1 tab once daily [Active]; Albuterol Inhl [Active]; Anoro tw2 Ellipta 62.5-25 mcg/actuation inhalation dsdv 1 puff once daily [Active]; aspirin 81 mg Oral TbEC 1 tab once daily [Active]; atorvastatin 20 mg Oral tab 1 tab once daily [Active]; carvedilol 6.25 mg Oral tab 1 tab 2 times per day [Active]; clonazepam 0.5 mg Oral tab 1 tab daily [Active]; cyclobenzaprine 5 mg Oral tab 1 tab nightly [Active]; Daliresp 500 mcg Oral tab 1 tab once daily [Active]; fluticasone 50 mcg/actuation nasal spsn 1 spray once daily [Active]; furosemide 20 mg Oral tab 1 tab once daily [Active]; latanoprost 0.005 % ophthalmic drop 1 drop once daily [Active]; levothyroxine 88 mcg tab 1 tab once daily [Active]; Nicoderm CQ 21 mg/24 hr transdermal pt24 1 patch once daily [Active]; prednisone 20 mg Oral tab 1 tab 2 times per day [Active]; Tessalon Perles 100 mg Oral cap 1 cap 3 times per day [Active]; - PMHx: 15:32 CHF; COPD; Hypothyroidism; GERD; High Cholesterol; Hypercarbia; Panic Attacks; Sleep tw2 Apnea; Hypertension; - Immunization history:: Client reports having NOT received the Covid vaccine. - Social history:: Smoking status: Patient/guardian denies using tobacco, the patient reports quitting approximately 3 years ago, pt reports 42 years of smoking. Screenin:15 Abuse screen: Denies threats or abuse. Denies injuries from another. Nutritional jl7 screening: No deficits noted. Tuberculosis screening: No symptoms or risk factors identified. Fall Risk IV access (20 points). Total Resendiz Fall Scale indicates No Risk (0-24 pts). Assessment: 16:15 General: Appears in no apparent distress. uncomfortable, Behavior is calm, cooperative, jl7 appropriate for age. Pain: Denies pain. Neuro: Level of Consciousness is awake, alert, obeys commands, Oriented to person, place, time, situation. Cardiovascular: Denies chest pain, Rhythm is regular Chest pain is denied. Respiratory: Airway is patent Respiratory effort is even, unlabored, Respiratory pattern is symmetrical, tachypnea Denies shortness of breath. Derm: Skin is pink, warm \\T\\ dry. 18:47 Reassessment: Pt reports pain to right shoulder, rated 10/10, requesting pain jl7 medication, Pt's O2 sat on bedside monitor reads 86%, RT came out of pt's room and reports pt's O2 sats are 96% per her pulse ox. ERP notified and gave VO for 4 mg morphine and 4 mg Zofran IVP. Pt medicated as ordered and pulse ox noted to decreased, unable to get a good saturation read. RT called back to bed and increased BiPap O2 to 100% and pulse ox 94%. RT decreased BiPap O2 to 40% and reports to keep pt awake. Pt continues to fall asleep and oxygen desats, ERP notified and gave VO for 0.4 mg Narcan IVP x 1, no change in condition. ERP gave another VO for 0.4 [address]an IVP and Dr. An gave VO for Xopenex 1.25 mg x 2, pt medicated as ordered. Pulse ox reads 96% and holding at this time. 20:01 Respiratory: Airway is patent Respiratory effort is labored, Respiratory pattern is kc4 symmetrical, Breath sounds are clear bilaterally. Denies cough, pain with respiration, pain with cough, pain with movement. 20:16 General: Appears uncomfortable, unkempt, well nourished, Behavior is cooperative, kc4 appropriate for age. Pain: Denies pain. Neuro: Level of Consciousness is awake, alert, obeys commands, Oriented to person, place, time, situation, Appropriate for age. Cardiovascular: Denies chest pain, Heart tones S1 S2 Capillary refill < 3 seconds JVD is absent Patient's skin is warm and dry. Pulses are all present. Rhythm is regular Chest pain is denied. Respiratory: Patient placed on BiPAP: Respiratory Rate: 18 GI: No deficits noted. No signs and/or symptoms were reported involving the gastrointestinal system. : No deficits noted. No signs and/or symptoms were reported regarding the genitourinary system. EENT: No deficits noted. No signs and/or symptoms were reported regarding the EENT system. Derm: Skin is pink, warm \\T\\ dry. Musculoskeletal: No deficits noted. No signs and/or symptoms reported regarding the musculoskeletal system. Vital Signs: 15:27 BP 102 / 53; Pulse 80; Resp 24; Temp 98.4; Pulse Ox 98% on 6 lpm NC; tw2 16:20 BP 111 / 64; Pulse 73; Resp 26; Pulse Ox 92% on BiPAP; ap3 17:40 BP 133 / 105; Pulse 86; Resp 23; Pulse Ox 85% on 30% BiPAP; jl7 17:57 BP 141 / 95; Pulse 73; Resp 24; Pulse Ox 86% on 30% BiPAP; jl7 18:55 BP 135 / 56; Pulse 58; Resp 21; Pulse Ox 99% on 40% BiPAP; jl7 20:02 BP 108 / 64; Pulse 72; Resp 18; Temp 98.6(O); Pulse Ox 90% on BiPAP; Pain 0/10; kc4 [place] Coma Score: 20:16 Eye Response: spontaneous(4). Verbal Response: oriented(5). Motor Response: obeys kc4 commands(6). Total: 15. ED Course: 15:20 Patient arrived in ED. am2 15:20 Billy Howard DO is Private Physician. am2 15:31 Triage completed. tw2 15:31 Arm band placed on. tw2 15:35 Deandre Lozoya PA is PHCP. [facility] 15:35 Donta An MD is Attending Physician. jmm 15:36 Clinton Love, RN is Primary Nurse. jl7 15:36 Primary Nurse role handed off by Clinton Love, DULCE ap3 15:36 Marleny Love, DULCE is Primary Nurse. ap3 15:45 EKG done, by ED staff, reviewed by Deandre LIMON. jl7 16:11 by ga, sent to lab. First set of blood cultures drawn by me, Second set of blood jl7 cultures drawn by me. Inserted saline lock: 22 gauge in left wrist, using aseptic technique. Blood collected. 16:15 Patient has correct armband on for positive identification. Bed in low position. Call jl7 light in reach. Side rails up X2. laboratory monitor on. Pulse ox on. NIBP on. 16:19 XRAY Chest (1 view) In Process Unspecified. EDMS 16:24 Lab(s) recollected, by me, sent to lab. jl7 17:22 Sarah Young MD is Hospitalizing Provider. jmm 18:00 COVID swab sent to lab. jl7 20:00 IV was discontinued by the patient. kc4 20:15 Inserted saline lock: 20 gauge in right antecubital area, using aseptic technique. kc4 20:24 No provider procedures requiring assistance completed. kc4 20:28 Patient admitted, IV remains in place. kc4 Administered Medications: 16:08 Drug: SOLU-Medrol (methylPrednisoLONE) 125 mg Route: IVP; Site: left hand; ap3 18:27 Follow up: Response: No adverse reaction ap3 17:58 Drug: Zofran (Ondansetron) 4 mg Route: IVP; Site: left wrist; jl7 18:56 Follow up: Response: No adverse reaction jl7 20:29 Follow up: Response: No adverse reaction kc4 18:00 Drug: morphine 4 mg Route: IVP; Site: left wrist; jl7 18:20 Follow up: Response: Adverse reaction, Physician notified jl7 20:29 Follow up: Response: No adverse reaction kc4 18:27 Drug: Magnesium Sulfate 1 grams Route: IVPB; Infused Over: 1 hrs; Site: left forearm; ap3 18:33 Drug: NARcan (naloxone) 0.4 mg Route: IVP; Site: left wrist; jl7 18:36 Follow up: Response: No change in condition jl7 20:29 Follow up: Response: No adverse reaction kc4 18:38 Drug: NARcan (naloxone) 0.4 mg Route: IVP; Site: left wrist; jl7 18:43 Follow up: Response: No adverse reaction; Marked relief of symptoms jl7 20:29 Follow up: Response: No adverse reaction kc4 18:40 Drug: Xopenex (levalbuterol) 2.5 mg Route: Inhalation; jl7 18:43 Follow up: Response: No adverse reaction; Marked relief of symptoms jl7 20:28 Follow up: Response: No adverse reaction kc4 Outcome: 17:23 Decision to Hospitalize by Provider. jmm 20:27 Admitted to Med/surg accompanied by nurse, via stretcher, room 209, with oxygen, with kc4 chart, Report called to Vijaya CARDONA 20:27 Condition: stable 20:27 Instructed on the need for admit. 20:31 Patient left the ED. kc4 Signatures: Dispatcher [employer] EDMS Deandre Lozoya PA PA jmm Wise, Tara RN RN tw2 Clinton Love RN RN jl7 Marleny Vazquez amMarleny Bartlett, RN RN ap3 Corina Hernandez kc4 Corrections: (The following items were deleted from the chart) 15:33 15:27 Acuity: LIZETH 3 tw2 tw2 18:47 18:19 Reassessment: Patient and/or family updated on plan of care and expected jl7 duration. Pain level reassessed. Patient is alert, oriented x 3, equal unlabored respirations, skin warm/dry/pink. RT and nurse at bedside ap3 18:55 18:12 BP 141 / 95; Pulse 94bpm; Resp 24bpm; Pulse Ox 94% BiPAP; ap3 jl7 19:05 15:32 Allergies: Codeine; "not any more"; tw2 jl7
--- NOTE | 2021-08-08 17:24 | EDPHYS ---
Physician Documentation [facility] Name: Vikki Zamudio Age: 61 yrs Sex: Female : 1960 Arrival Date: 08/08/2021 Time: 15:20 Bed 5 Private MD: Tabby Howardh ED Physician Donta An HPI: 08/08 15:36 This 61 yrs old Female presents to ER via Wheelchair with complaints of Breathing jmm Difficulty. 15:36 The patient has shortness of breath at rest. Onset: The symptoms/episode began/occurred jmm today. Duration: The symptoms are continuous, and are steadily getting worse. The patient's shortness of breath is aggravated by nothing, is alleviated by nothing. Associated signs and symptoms: Pertinent negatives: chest pain, fever. The patient has experienced similar episodes in the past. Historical: - Allergies: 19:03 Codeine; jl7 19:03 Morphine; jl7 - Home Meds: 15:32 acetazolamide 125 mg Oral tab 1 tab once daily [Active]; Albuterol Inhl [Active]; Anoro tw2 Ellipta 62.5-25 mcg/actuation inhalation dsdv 1 puff once daily [Active]; aspirin 81 mg Oral TbEC 1 tab once daily [Active]; atorvastatin 20 mg Oral tab 1 tab once daily [Active]; carvedilol 6.25 mg Oral tab 1 tab 2 times per day [Active]; clonazepam 0.5 mg Oral tab 1 tab daily [Active]; cyclobenzaprine 5 mg Oral tab 1 tab nightly [Active]; Daliresp 500 mcg Oral tab 1 tab once daily [Active]; fluticasone 50 mcg/actuation nasal spsn 1 spray once daily [Active]; furosemide 20 mg Oral tab 1 tab once daily [Active]; latanoprost 0.005 % ophthalmic drop 1 drop once daily [Active]; levothyroxine 88 mcg tab 1 tab once daily [Active]; Nicoderm CQ 21 mg/24 hr transdermal pt24 1 patch once daily [Active]; prednisone 20 mg Oral tab 1 tab 2 times per day [Active]; Tessalon Perles 100 mg Oral cap 1 cap 3 times per day [Active]; - PMHx: 15:32 CHF; COPD; Hypothyroidism; GERD; High Cholesterol; Hypercarbia; Panic Attacks; Sleep tw2 Apnea; Hypertension; - Immunization history:: Client reports having NOT received the Covid vaccine. - Social history:: Smoking status: Patient/guardian denies using tobacco, the patient reports quitting approximately 3 years ago, pt reports 42 years of smoking. ROS: 15:36 Constitutional: Negative for fever, chills, and weight loss. jmm 15:36 Cardiovascular: Negative for chest pain, palpitations, and edema, Respiratory: Negative for shortness of breath, cough, wheezing, and pleuritic chest pain. 15:36 Neck: Positive for pain with movement. 15:36 All other systems are negative. Exam: 15:36 Constitutional: This is a well developed, well nourished patient who is awake, alert, jmm and in no acute distress. Head/Face: atraumatic. Eyes: EOMI, no conjunctival erythema appreciated ENT: Moist Mucus Membranes Neck: Trachea midline, Supple Chest/axilla: Normal chest wall appearance and motion. Cardiovascular: Regular rate and rhythm. No edema appreciated 15:36 Abdomen/GI: Non distended, soft Back: Normal ROM Skin: General appearance color normal MS/ Extremity: Moves all extremities, no obvious deformities appreciated, no edema noted to the lower extremities Neuro: Awake and alert, normal gait Psych: Behavior is normal, Mood is normal, Patient is cooperative and pleasant 15:36 Respiratory: moderate respiratory distress is noted, Respirations: labored breathing, that is moderate, Breath sounds: wheezing: is heard diffusely. Vital Signs: 15:27 BP 102 / 53; Pulse 80; Resp 24; Temp 98.4; Pulse Ox 98% on 6 lpm NC; tw2 16:20 BP 111 / 64; Pulse 73; Resp 26; Pulse Ox 92% on BiPAP; ap3 17:40 BP 133 / 105; Pulse 86; Resp 23; Pulse Ox 85% on 30% BiPAP; jl7 17:57 BP 141 / 95; Pulse 73; Resp 24; Pulse Ox 86% on 30% BiPAP; jl7 18:55 BP 135 / 56; Pulse 58; Resp 21; Pulse Ox 99% on 40% BiPAP; jl7 20:02 BP 108 / 64; Pulse 72; Resp 18; Temp 98.6(O); Pulse Ox 90% on BiPAP; Pain 0/10; kc4 [place] Coma Score: 20:16 Eye Response: spontaneous(4). Verbal Response: oriented(5). Motor Response: obeys kc4 commands(6). Total: 15. MDM: 15:43 Patient medically screened. [facility] 17:21 Data reviewed: vital signs, nurses notes. Counseling: I had a detailed discussion with mickey the patient and/or guardian regarding: the historical points, exam findings, and any diagnostic results supporting the discharge/admit diagnosis, lab results, radiology results, the need for further work-up and treatment in the hospital. ED course: I discussed the patient with Dr. Young whom accepted the patient for admission. . 08/08 15:36 Order name: Basic Metabolic Panel [facility] 08/08 15:36 Order name: CBC with Diff [facility] 08/08 15:36 Order name: LFT's [facility] 08/08 15:36 Order name: Magnesium; Complete Time: 17:10 [facility] 08/08 15:36 Order name: NT PRO-BNP; Complete Time: 17:10 [facility] 08/08 15:36 Order name: PT-INR; Complete Time: 16:42 [facility] 08/08 15:36 Order name: Troponin (emerg Dept Use Only); Complete Time: 17:10 [facility] 08/08 15:36 Order name: Basic Metabolic Panel; Complete Time: 17:10 [facility] 08/08 15:36 Order name: CBC with Automated Diff; Complete Time: 16:10 [facility] 08/08 15:36 Order name: Liver (Hepatic) Function; Complete Time: 17:10 [facility] 08/08 15:48 Order name: Procalcitonin; Complete Time: 17:00 [facility] 08/08 15:48 Order name: Lactate; Complete Time: 16:42 [facility] 08/08 15:48 Order name: Blood Culture Adult (2) [facility] 08/08 17:52 Order name: SARS-COV-2 RT PCR (Document "Date of Onset" if Symptomatic); Complete Time: [facility] 19:32 08/08 15:36 Order name: XRAY Chest (1 view); Complete Time: 17:00 [facility] 08/08 16:04 Order name: BIPAP [facility] 08/08 18:25 Order name: CBC with Automated Diff [facility] 08/08 18:25 Order name: CBC with Automated Diff [facility] 08/08 18:25 Order name: Comprehensive Metabolic Panel [facility] 08/08 18:25 Order name: Comprehensive Metabolic Panel [facility] 08/08 18:26 Order name: Chest Single View [facility] 08/08 18:26 Order name: Chest Single View [facility] 08/08 19:36 Order name: ABG [facility] 08/08 15:36 Order name: EKG; Complete Time: 15:37 [facility] 08/08 15:36 Order name: Cardiac monitoring; Complete Time: 16:09 [facility] 08/08 15:36 Order name: EKG - Nurse/Tech; Complete Time: 16:09 [facility] 08/08 15:36 Order name: IV Saline Lock; Complete Time: 16: [facility] 08/08 15:36 Order name: Labs collected and sent; Complete Time: 16: [facility] 08/08 15:36 Order name: O2 Per Protocol; Complete Time: 16: [facility] 08/08 15:36 Order name: O2 Sat Monitoring; Complete Time: 16: [facility] 08/08 16:11 Order name: Labs - recollect needed: PT, Chemistry; Complete Time: 16:29 08/08 18:25 Order name: CONS Physician Consult [facility] 08/08 18:25 Order name: Heart Healthy [facility] Administered Medications: 16:08 Drug: SOLU-Medrol (methylPrednisoLONE) 125 mg Route: IVP; Site: left hand; ap3 18:27 Follow up: Response: No adverse reaction ap3 17:58 Drug: Zofran (Ondansetron) 4 mg Route: IVP; Site: left wrist; jl7 18:56 Follow up: Response: No adverse reaction jl7 20:29 Follow up: Response: No adverse reaction kc4 18:00 Drug: morphine 4 mg Route: IVP; Site: left wrist; jl7 18:20 Follow up: Response: Adverse reaction, Physician notified jl7 20:29 Follow up: Response: No adverse reaction kc4 18:27 Drug: Magnesium Sulfate 1 grams Route: IVPB; Infused Over: 1 hrs; Site: left forearm; ap3 18:33 Drug: NARcan (naloxone) 0.4 mg Route: IVP; Site: left wrist; jl7 18:36 Follow up: Response: No change in condition jl7 20:29 Follow up: Response: No adverse reaction kc4 18:38 Drug: NARcan (naloxone) 0.4 mg Route: IVP; Site: left wrist; jl7 18:43 Follow up: Response: No adverse reaction; Marked relief of symptoms jl7 20:29 Follow up: Response: No adverse reaction kc4 18:40 Drug: Xopenex (levalbuterol) 2.5 mg Route: Inhalation; jl7 18:43 Follow up: Response: No adverse reaction; Marked relief of symptoms jl7 20:28 Follow up: Response: No adverse reaction kc4 Disposition Summary: 08/08/21 17:23 Hospitalization Ordered Hospitalization Status: Inpatient Admission [facility] Provider: Sarah Young Location: Telemetry/MedSurg (Inpatient) [facility] Condition: Stable jm Problem: an acute exacerbation jm Symptoms: have improved [facility] Bed/Room Type: Standard [facility] Room Assignment: 209(08/08/21 19:52) cg Diagnosis - COPD/ Chronic obstructive pulmonary disease with (acute) exacerbation jmm - Hypoxia [facility] Forms: - Medication Reconciliation Form [facility] - SBAR form [facility] Addendum: 08/11/2021 07:37 Co-signature as Attending Physician, Donta An MD I agree with the assessment and r n plan of care. Attestation: The patient's history, exam findings, diagnostics, and a summary of any interventions or procedures was reviewed in detail with Deandre LIMON. Signatures: Dispatcher [employer] Deandre Sequeira PA PA jmm Williams, Irene, RN RN iw Nieto, Roman, MD MD rn Garcia, Cindy, RN RN Yokasta Portillo RN RN 2 Clinton Love RN RN jl7 Marleny Love RN RN [email or web address] Corina Hernandez kc4 Corrections: (The following items were deleted from the chart) 08/08 19:05 15:32 Allergies: Codeine; "not any more"; 2 jl7 19:52 17:23 [facility]
[2021-08-08] MEDS ORDERED: MORPHINE 4 MG/ML SYR ONE (17:52)
[2021-08-08] MEDS ORDERED: ONDANSETRON 4 MG/2 ML VIAL ONE (17:52)
[2021-08-08] MEDS ORDERED: ONDANSETRON 4 MG/2 ML VIAL IV PRN (18:22)
[2021-08-08] MEDS ORDERED: ACETAMINOPHEN 500 MG TAB PO PRN (18:22)
[2021-08-08] MEDS ORDERED: MAGNESIUM SULFATE 1 gm IVPB 1 GM/100 ML BAG IV ONE (18:23)
[2021-08-08] MEDS ORDERED: NALOXONE 0.4 MG/ML VIAL ONE ×2 (18:30→18:35)
[2021-08-08] MEDS ORDERED: LEVALBUTEROL 1.25 MG/3 ML NEB ONE (18:37)
[2021-08-08] MEDS ORDERED: Levofloxacin500mg IV 500 MG/100 ML BAG IV SCH (19:00)
[2021-08-08] MEDS: ARFORMOTEROL TARTRATE 15 MCG/2 ML VIAL.NEB NEB SCH (20:00)
[2021-08-08] MEDS: IPRATROPIUM BROM 0.5MG/2.5ML NEB SCH (20:00)
[2021-08-08] MEDS: ALBUTEROL 2.5 MG/3 ML NEB SOL NEB SCH (20:00)
[2021-08-08] MEDS ORDERED: ALBUTEROL 2.5 MG/3 ML NEB SOL ONE (20:10)
[2021-08-08] MEDS ORDERED: IPRATROPIUM BROM 0.5MG/2.5ML ONE (20:10)
[2021-08-08] MEDS: METHYLPREDNISOLONE 125 MG INJ IV SCH (23:17)
[2021-08-09] MEDS: ARFORMOTEROL TARTRATE 15 MCG/2 ML VIAL.NEB NEB SCH ×3 (00:02→19:50)
[2021-08-09] MEDS: ALBUTEROL 2.5 MG/3 ML NEB SOL NEB SCH ×5 (00:02→19:50)
[2021-08-09] MEDS: IPRATROPIUM BROM 0.5MG/2.5ML NEB SCH ×5 (00:02→19:50)
[2021-08-09 00:36] LABS: Arterial Blood Carboxyhemoglob 1.6 % (0-1.5); Blood Gas Oxyhemoglobin 89.9 % (94-97); Blood O2 Saturation 92.3 % (92-98.5)
[2021-08-09] MEDS: METHYLPREDNISOLONE 125 MG INJ IV SCH (05:39)
[2021-08-09 06:27] LABS: Absolute Lymphocytes (CBC) 0.6 K/uL (0.7-4.9); Basophils % 0.2 % (0-1.3); Hematocrit 31.4 % (36.0-45.0); Lymphocytes % 13.8 % (15.3-44.8); RBC Red Blood Cell Count 3.59 M/uL (3.86-4.86)
[2021-08-09 06:48] LABS: Albumin 2.8 g/dL (3.4-5.0); Bilirubin Total 0.5 mg/dL (0.2-1.0); Potassium 4.9 mmol/L (3.5-5.1); Protein, Total 6.4 g/dL (6.4-8.2)
[2021-08-09 08:02] VITALS: BMI 36.6
--- NOTE | 2021-08-09 08:40 | RAD REPORT ---
EXAM DESCRIPTION: RAD - Chest Single View - 08/09/2021 5:46 am CLINICAL HISTORY: Acute COPD exacerbation Chest pain. COMPARISON: Chest Single View dated 08/08/2021; Chest Single View dated 05/09/2021; Chest Single View dated 05/09/2021; Chest Single View dated 05/08/2021 FINDINGS: Portable technique limits examination quality. Interstitial markings are prominent bilaterally. This appears unchanged compared to 08/08/2021 study. The heart is mildly enlarged in size. No displaced fractures. IMPRESSION: Stable chest since 08/08/2021 examination.
[2021-08-09] MEDS: METHYLPREDNISOLONE 40 MG INJ IV SCH ×2 (09:55→20:56)
[2021-08-09] MEDS: acetaZOLAMIDE 250 MG TAB PO SCH ×2 (09:55→20:56)
--- NOTE | 2021-08-09 10:04 | P.HP ---
Certification for Inpatient Patient admitted to: Inpatient With expected LOS: >2 Midnights Patient will require the following post-hospital care: None Practitioner: I am a practitioner with admitting privileges, knowledge of patient current condition, hospital course, and medical plan of care. Services: Services provided to patient in accordance with Admission requirements found in Title 42 Section 412.3 of the Code of Federal Regulations Patient History Date of Service: 08/08/21 Reason for admission: Shortness of breath History of Present Illness: Patient is a 61-year-old female came to the hospital with difficulty breathing. Patient presented to the hospital with acute COPD exacerbation. Patient has frequent hospitalizations and patient presents with similar complaints. Patient was started on IV steroids along with nebs, BiPAP, and antibiotics. Patient is on long-term inhaler therapy. Patient's clinical symptoms have gradually deteriorated. Patient is on chronic medications in will continue acute flare up at this time. Patient was admitted for further treatment of the COPD exacerbation. Currently on BiPAP support. Patient will be weaned off of BiPAP support. Patient be admitted for further evaluation. Allergies codeine [Codeine] Adverse Reaction (Mild, Verified 02/15/21 08:47) itch Home Medications: Atorvastatin Calcium [Lipitor*] 20 mg PO BEDTIME 10/23/20 Gabapentin 300 mg PO BID 10/23/20 Roflumilast [Daliresp*] 500 mcg PO DAILY 10/23/20 Umeclidinium Brm/Vilanterol Tr [Anoro Ellipta 62.5-25 Mcg INH] 1 puff IN DAILY 10/23/20 clonazePAM [Klonopin*] 0.5 mg PO DAILY PRN 10/23/20 Tramadol HCl [Ultram] 50 mg PO TID PRN 30 Days #60 tablet 11/21/20 Pantoprazole [Protonix Tab*] 40 mg PO DAILY 02/14/21 Ropinirole HCl [Requip*] 1 mg PO BEDTIME 02/14/21 Ascorbic Acid [Vitamin C*] 500 mg PO QID #120 tablet 04/18/21 Cetirizine HCl [Zyrtec*] 10 mg PO DAILY PRN #30 tablet 04/18/21 Cholecalciferol (Vitamin D3) [Vitamin D 5,000 IU Cap*] 5,000 unit PO DAILY #30 cap 04/18/21 Thiamine HCl [Vitamin B-1*] 200 mg PO DAILY #60 tablet 04/18/21 Zinc Sulfate [Zinc Sulfate*] 220 mg PO DAILY #30 cap 04/18/21 acetaZOLAMIDE [Diamox*] 250 mg PO BID #60 tab 04/18/21 Albuterol Sulfate [Albuterol Sulfate Hfa] 8.5 gm IH TID #1 hfa.aer.ad 04/24/21 Benzonatate [Tessalon Perle*] 100 mg PO TID PRN #30 cap 05/16/21 Fluconazole 200 mg PO DAILY #7 tablet 05/16/21 Fluticasone [Flonase 50MCG Nasal [place]*] 1 sprays MINERVA BID #1 btl 05/16/21 Iron Polysaccharide Complex [Polysaccharide Iron] 150 mg PO DAILY #30 capsule 05/16/21 Lidocaine Viscous 2% Soln [Xylocaine Viscous Oral 2%*] 15 ml PO TID PRN #30 udc 05/16/21 - Past Medical/Surgical History Diabetic: No -: Severe COPD, oxygen/steroid dependent,Pulmonary-Dr. Do -: Mild pulmonary hypertension -: Hypothyroidism -: Bipolar disorder -: Hypertension -: Chronic low back pain -: Obstructive sleep apnea -: Tobacco abuse -: HLD -: GERD -: Appendectomy -: Psychosocial/ Personal History: She lives with a partner. She has 1 child. She is currently disabled. - Family History Father Medical History: Heart disease, Hypertension, Diabetes Notes: from CHF Mother Medical History: Heart disease, Hypertension, Diabetes Notes: from CHF Brother Medical History: Diabetes Sister Medical History: Heart disease, Diabetes Notes: from CHF - Social History Smoking Status: Unknown if ever smoked Alcohol use: No CD- Drugs: No Review of Systems 10-point ROS is otherwise unremarkable Physical Examination - Vital Signs Temperature: 97.8 F Blood Pressure: 119/56 Pulse: 60 Respirations: 20 Pulse Ox (%): 99 - Physical Exam General: Alert, In no apparent distress, Oriented x3 HEENT: Atraumatic, PERRLA, Mucous membr. moist/pink, EOMI, Sclerae nonicteric Neck: Supple, 2+ carotid pulse no bruit, No LAD, Without JVD or thyroid abnormality Respiratory: Diminished, Expiratory wheezes Cardiovascular: Regular rate/rhythm, Normal S1 S2, No murmurs Gastrointestinal: Normal bowel sounds, Soft and benign, Non-distended, No tenderness Musculoskeletal: No clubbing, No swelling, No tenderness Integumentary: No rashes Neurological: Normal gait, Normal speech, Normal strength at 5/5 x4 extr, Normal tone, Sensation intact, Cranial nerves 3-12 intact, Normal affect Lymphatics: No axilla or inguinal lymphadenopathy - Studies Laboratory Data (last 24 hrs) 08/08/21 16:21: PT 11.2, INR 0.97 08/08/21 16:21: Sodium 144, Potassium 4.4, BUN 10, Creatinine 0.63, Glucose 119 H, Magnesium 2.2, Total Bilirubin 0.6, AST 30, ALT 45, Alkaline Phosphatase 79 08/08/21 15:54: WBC 7.20, Hgb 11.3 L, Hct 35.1 L, Plt Count 180 Assessment & Plan - Problems (Diagnosis) (1) COPD with acute exacerbation Current Visit: Yes Status: Acute (2) Hypertension Onset Date: 03/20/17 Current Visit: No Status: Chronic (3) Hypothyroidism Onset Date: 09/12/14 Current Visit: No Status: Chronic Qualifiers: (4) Obstructive sleep apnea Onset Date: 03/20/17 Current Visit: No Status: Chronic (5) Steroid dependent Onset Date: 01/19/18 Current Visit: No Status: Chronic (6) Tobacco abuse Onset Date: 03/05/17 Current Visit: No Status: Chronic - Plan Plan: 1. Continue with albuterol and Atrovent nebs 2. Continue with IV steroids 3. Pulmonary consultation 4. Continue with BiPAP support and gradually wean off 5. Room air O2 sats 6. Repeat chest x-ray in the morning 7. Monitor hemodynamics and strict blood pressure control; reviewed echocardiogram 8. GI and DVT prophylaxis Discharge Plan: Home Plan to discharge in: Greater than 2 days - Advance Directives Does patient have a Living Will: Yes Does patient have a Durable POA for Healthcare: Yes - Code Status/Comfort Care Code Status Assessed: Yes Code Status: Full Code Critical Care: No Time Spent Managing PTS Care (In Minutes): 45
--- NOTE | 2021-08-09 10:05 | P.PN ---
Subjective Date of Service: 08/09/21 Continue with weaning off BiPAP support. Continue with current therapy at this time. Review of Systems 10-point ROS is otherwise unremarkable Physical Examination - Vital Signs Temperature: 97.8 F Blood Pressure: 119/56 Pulse: 60 Respirations: 20 Pulse Ox (%): 99 - Physical Exam General: Alert, In no apparent distress HEENT: Atraumatic, PERRLA, EOMI Neck: Supple, JVD not distended Respiratory: Clear to auscultation bilaterally, Normal air movement Cardiovascular: Regular rate/rhythm, Normal S1 S2 Gastrointestinal: Normal bowel sounds, No tenderness Musculoskeletal: No tenderness Integumentary: No rashes Neurological: Normal speech, Normal tone, Normal affect Lymphatics: No axilla or inguinal lymphadenopathy - Studies Laboratory Data (last 24 hrs) 08/08/21 16:21: PT 11.2, INR 0.97 08/08/21 16:21: Sodium 144, Potassium 4.4, BUN 10, Creatinine 0.63, Glucose 119 H, Magnesium 2.2, Total Bilirubin 0.6, AST 30, ALT 45, Alkaline Phosphatase 79 08/08/21 15:54: WBC 7.20, Hgb 11.3 L, Hct 35.1 L, Plt Count 180 Medications List Reviewed: Yes Assessment & Plan - Problems (Diagnosis) (1) COPD with acute exacerbation Status: Acute (2) Hypertension Onset Date: 03/20/17 Status: Chronic (3) Hypothyroidism Onset Date: 09/12/14 Status: Chronic Qualifiers: (4) Obstructive sleep apnea Onset Date: 03/20/17 Status: Chronic (5) Steroid dependent Onset Date: 01/19/18 Status: Chronic (6) Tobacco abuse Onset Date: 03/05/17 Status: Chronic - Plan continue with plan of care as mentioned below: 1. Continue with albuterol and Atrovent nebs 2. Continue with IV steroids 3. Pulmonary consultation appreciated 4. Continue with BiPAP support and gradually wean off 5. Room air O2 sats 6. Repeat chest x-ray in the morning 7. Monitor hemodynamics and strict blood pressure control; reviewed echocardiogram 8. GI and DVT prophylaxis - Advance Directives Does patient have a Living Will: Yes Does patient have a Durable POA for Healthcare: Yes - Code Status/Comfort Care Code Status: Full Code
[2021-08-09 11:09] LABS: Arterial Blood Carboxyhemoglob 1.7 % (0-1.5); Blood Gas Oxyhemoglobin 94.6 % (94-97); Blood O2 Saturation 97.3 % (92-98.5)
--- NOTE | 2021-08-09 12:10 | P.CNS ---
Date of Consult: 08/09/21 Reason for Consult: Acute on chronic respiratory failure Chief Complaint: Shortness of breath History of Present Illness: Patient is 61 years of age with terminal COPD recurrent hospital admissions history of noncompliance currently has symptoms Sherry became gradually worse in quite some time she has had a hospital admission as apparently living with her daughter found to be very hypercapnic elevated bicarbonate Apparently she was now apparently she was not on her oxygen this happened all of a sudden denies any fever chills otherwise compliant with therapy at home ran out of her medication for the past 2 weeks went to see her primary care doctor Allergies codeine [Codeine] Adverse Reaction (Mild, Verified 02/15/21 08:47) itch Home Medications: Atorvastatin Calcium [Lipitor*] 20 mg PO BEDTIME 10/23/20 Gabapentin 300 mg PO BID 10/23/20 Roflumilast [Daliresp*] 500 mcg PO DAILY 10/23/20 Umeclidinium Brm/Vilanterol Tr [Anoro Ellipta 62.5-25 Mcg INH] 1 puff IN DAILY 10/23/20 clonazePAM [Klonopin*] 0.5 mg PO DAILY PRN 10/23/20 Tramadol HCl [Ultram] 50 mg PO TID PRN 30 Days #60 tablet 11/21/20 Pantoprazole [Protonix Tab*] 40 mg PO DAILY 02/14/21 Ropinirole HCl [Requip*] 1 mg PO BEDTIME 02/14/21 Ascorbic Acid [Vitamin C*] 500 mg PO QID #120 tablet 04/18/21 Cetirizine HCl [Zyrtec*] 10 mg PO DAILY PRN #30 tablet 04/18/21 Cholecalciferol (Vitamin D3) [Vitamin D 5,000 IU Cap*] 5,000 unit PO DAILY #30 cap 04/18/21 Thiamine HCl [Vitamin B-1*] 200 mg PO DAILY #60 tablet 04/18/21 Zinc Sulfate [Zinc Sulfate*] 220 mg PO DAILY #30 cap 04/18/21 acetaZOLAMIDE [Diamox*] 250 mg PO BID #60 tab 04/18/21 Albuterol Sulfate [Albuterol Sulfate Hfa] 8.5 gm IH TID #1 hfa.aer.ad 04/24/21 Benzonatate [Tessalon Perle*] 100 mg PO TID PRN #30 cap 05/16/21 Fluconazole 200 mg PO DAILY #7 tablet 05/16/21 Fluticasone [Flonase 50MCG Nasal [place]*] 1 sprays MINERVA BID #1 btl 05/16/21 Iron Polysaccharide Complex [Polysaccharide Iron] 150 mg PO DAILY #30 capsule 05/16/21 Lidocaine Viscous 2% Soln [Xylocaine Viscous Oral 2%*] 15 ml PO TID PRN #30 udc 05/16/21 - Past Medical/Surgical History Diabetic: No -: Severe COPD, oxygen/steroid dependent,Pulmonary-Dr. Do -: Mild pulmonary hypertension -: Hypothyroidism -: Bipolar disorder -: Hypertension -: Chronic low back pain -: Obstructive sleep apnea -: Tobacco abuse -: HLD -: GERD -: Appendectomy -: Psychosocial/ Personal History: She lives with a partner. She has 1 child. She is currently disabled. - Family History Father Medical History: Heart disease, Hypertension, Diabetes Notes: from CHF Mother Medical History: Heart disease, Hypertension, Diabetes Notes: from CHF Brother Medical History: Diabetes Sister Medical History: Heart disease, Diabetes Notes: from CHF - Social History Smoking Status: Unknown if ever smoked Alcohol use: No CD- Drugs: No Caffeine use: Yes Review of Systems 10-point ROS is otherwise unremarkable General: Weakness Respiratory: Cough, Shortness of Breath Physical Examination Temp Pulse Resp BP Pulse Ox 97.8 F 60 20 119/56 L 99 08/09/21 10:05 08/09/21 10:05 08/09/21 10:05 08/09/21 10:05 08/09/21 10:05 General: Alert, In no apparent distress, Oriented x3 Respiratory: Diminished, Expiratory wheezes Cardiovascular: No edema, Normal S1 S2 Gastrointestinal: Normal bowel sounds, Soft and benign Laboratory Data (last 24 hrs) 08/08/21 16:21: PT 11.2, INR 0.97 08/08/21 16:21: Sodium 144, Potassium 4.4, BUN 10, Creatinine 0.63, Glucose 119 H, Magnesium 2.2, Total Bilirubin 0.6, AST 30, ALT 45, Alkaline Phosphatase 79 08/08/21 15:54: WBC 7.20, Hgb 11.3 L, Hct 35.1 L, Plt Count 180 - Problems (1) Acute on chronic respiratory failure with hypoxia and hypercapnia Current Visit: No Status: Acute Plan: Patient is 61 years of age patient is 61 years of age well-known to me recurrent hospital admissions with respiratory failure has been doing well recently appar ently she ran out of her medications went to see her primary care doctor for refills developed some respiratory distress ran out of oxygen ended up here in the hospital hypoxic hypercapnic she is doing much better denies any symptoms of infection back to her back to her baseline chest x-ray unchanged chest x-ray unchanged I have sent all her refills to her pharmacy plan to follow-up with me in 2 weeks patient is compliant with her noninvasive ventilator
[2021-08-09] MEDS ORDERED: Levofloxacin500mg IV 500 MG/100 ML BAG IV SCH (21:00)
[2021-08-10] MEDS: ALBUTEROL 2.5 MG/3 ML NEB SOL NEB SCH ×3 (01:40→13:56)
[2021-08-10] MEDS: IPRATROPIUM BROM 0.5MG/2.5ML NEB SCH ×3 (01:40→13:56)
[2021-08-10] MEDS: ARFORMOTEROL TARTRATE 15 MCG/2 ML VIAL.NEB NEB SCH (09:40)
[2021-08-10] MEDS: acetaZOLAMIDE 250 MG TAB PO SCH (10:10)
[2021-08-10] MEDS: METHYLPREDNISOLONE 40 MG INJ IV SCH (10:10)
[2021-08-10 15:43] VITALS: O2SAT 96
[2021-08-12 20:10] VITALS: BP 119/56; TEMP 97.8
--- NOTE | 2021-08-12 20:11 | P.DS ---
Discharge Date: 08/10/21 Disposition: ROUTINE DISCHARGE Discharge Condition: GOOD Reason for Admission: Shortness of breath - Problems (1) COPD with acute exacerbation Status: Acute (2) Hypertension Onset Date: 03/20/17 Status: Chronic (3) Hypothyroidism Onset Date: 09/12/14 Status: Chronic Qualifiers: (4) Obstructive sleep apnea Onset Date: 03/20/17 Status: Chronic (5) Steroid dependent Onset Date: 01/19/18 Status: Chronic (6) Tobacco abuse Onset Date: 03/05/17 Status: Chronic Brief History of Present Illness: Patient is a 61-year-old female came to the hospital with difficulty breathing. Patient presented to the hospital with acute COPD exacerbation. Patient has frequent hospitalizations and patient presents with similar complaints. Patient was started on IV steroids along with nebs, BiPAP, and antibiotics. Patient is on long-term inhaler therapy. Patient's clinical symptoms have gradually deteriorated. Patient is on chronic medications in will continue acute flare up at this time. Patient was admitted for further treatment of the COPD exacerbation. Currently on BiPAP support. Patient will be weaned off of BiPAP support. Patient be admitted for further evaluation. Hospital Course: Patient has done well during hospital stay. Patient's clinical symptoms are improving. Discharged with nebs, steroids, and antibiotics. Outpatient pulmonary follow-up. Vital Signs/Physical Exam: Temp Pulse Resp BP Pulse Ox 97.8 F 60 20 119/56 L 99 08/12/21 20:10 08/12/21 20:10 08/12/21 20:10 08/12/21 20:10 08/12/21 20:10 General: Alert, In no apparent distress, Oriented x3 Laboratory Data at Discharge: WBC 4.20 K/uL (4.3-10.9) L D 08/09/21 06:15 Hgb 9.7 g/dL (12.0-15.0) L 08/09/21 06:15 Hct 31.4 % (36.0-45.0) L 08/09/21 06:15 Plt Count 164 K/uL (152-406) 08/09/21 06:15 PT 11.2 SECONDS (9.5-12.5) 08/08/21 16:21 INR 0.97 08/08/21 16:21 Sodium 139 mmol/L (136-145) 08/09/21 06:15 Potassium 4.9 mmol/L (3.5-5.1) 08/09/21 06:15 BUN 20 mg/dL (7-18) H 08/09/21 06:15 Creatinine 0.97 mg/dL (0.55-1.3) 08/09/21 06:15 Glucose 183 mg/dL (74-106) H 08/09/21 06:15 Magnesium 2.2 mg/dL (1.8-2.4) 08/08/21 16:21 Total Bilirubin 0.5 mg/dL (0.2-1.0) 08/09/21 06:15 AST 27 U/L (15-37) 08/09/21 06:15 ALT 44 U/L (12-78) 08/09/21 06:15 Alkaline Phosphatase 73 U/L (45-117) 08/09/21 06:15 Home Medications: Atorvastatin Calcium [Lipitor*] 20 mg PO BEDTIME 10/23/20 Gabapentin 300 mg PO BID 10/23/20 Roflumilast [Daliresp*] 500 mcg PO DAILY 10/23/20 Umeclidinium Brm/Vilanterol Tr [Anoro Ellipta 62.5-25 Mcg INH] 1 puff IN DAILY 10/23/20 clonazePAM [Klonopin*] 0.5 mg PO DAILY PRN 10/23/20 Tramadol HCl [Ultram] 50 mg PO TID PRN 30 Days #60 tablet 11/21/20 Pantoprazole [Protonix Tab*] 40 mg PO DAILY 02/14/21 Ropinirole HCl [Requip*] 1 mg PO BEDTIME 02/14/21 Ascorbic Acid [Vitamin C*] 500 mg PO QID #120 tablet 04/18/21 Cetirizine HCl [Zyrtec*] 10 mg PO DAILY PRN #30 tablet 04/18/21 Cholecalciferol (Vitamin D3) [Vitamin D 5,000 IU Cap*] 5,000 unit PO DAILY #30 cap 04/18/21 Thiamine HCl [Vitamin B-1*] 200 mg PO DAILY #60 tablet 04/18/21 Zinc Sulfate [Zinc Sulfate*] 220 mg PO DAILY #30 cap 04/18/21 acetaZOLAMIDE [Diamox*] 250 mg PO BID #60 tab 04/18/21 Albuterol Sulfate [Albuterol Sulfate Hfa] 8.5 gm IH TID #1 hfa.aer.ad 04/24/21 Benzonatate [Tessalon Perle*] 100 mg PO TID PRN #30 cap 05/16/21 Fluconazole 200 mg PO DAILY #7 tablet 05/16/21 Fluticasone [Flonase 50MCG Nasal [place]*] 1 sprays [place]ERVA BID #1 btl 05/16/21 Iron Polysaccharide Complex [Polysaccharide Iron] 150 mg PO DAILY #30 capsule 05/16/21 Lidocaine Viscous 2% Soln [Xylocaine Viscous Oral 2%*] 15 ml PO TID PRN #30 udc 05/16/21 predniSONE [Deltasone] 20 mg PO DAILY #7 tab 08/10/21 New Medications: predniSONE [Deltasone] 20 mg PO DAILY #7 tab Physician Discharge Instructions: OK TO DC IV AND DC HOME FOLLOW-UP WITH PRIMARY CARE PROVIDER IN 1-2 WEEKS FOLLOW-UP WITH Pulmonary IN 1-2 WEEKS RETURN TO THE ER IF symptoms worsens CALL or TEXT DR. TAPIA AT [phone] IF ANY QUESTIONS REGARDING HOSPITAL STAY. PLEASE CALL THE FLOOR AT [phone] IF ANY MEDICATION OR NURSING QUESTIONS. Diet: AHA Activity: Fall precautions Followup: Isai Do MD [ACTIVE - CAN ADMIT] - 1-2 Weeks (call to schedule an appointment ) Billy Howard DO [Primary Care Provider] - 1-2 Weeks (call to schedule an appointment ) Time spent managing pt's care (in minutes): 35
== END 2021-08-10 17:31 | disposition home or self-care (01) | DRG 190 ==
LOC: ER 15:12 → ERHOLD 18:22 → 2ND 20:11
PROVIDERS: ADMIT Hospitalist; ATTEND Hospitalist
PROC: 5A09457 Assistance with Respiratory Ventilation, 24-96 Consecutive Hours, Continuous Positive Airway Pressure (ICD-10-PCS; principal; 2021-08-08)
DX: J44.1 Chronic obstructive pulmonary disease with (acute) exacerbation (principal); J96.22 Acute and chronic respiratory failure with hypercapnia; J96.21 Acute and chronic respiratory failure with hypoxia; I50.21 Acute systolic (congestive) heart failure; I11.0 Hypertensive heart disease with heart failure; E03.9 Hypothyroidism, unspecified; G47.33 Obstructive sleep apnea (adult) (pediatric); F17.210 Nicotine dependence, cigarettes, uncomplicated; Z79.51 Long term (current) use of inhaled steroids; Z20.822 Contact with and (suspected) exposure to COVID-19
CPT/HCPCS: 36415; 71045; 80048; 80053; 80076; 82805; 82947; 83605; 83735; 83880; 84145; 84484; 85025; 85610; 87040; 93005; 94660; 94760; 99285; J2310; J2405; J2920; J2930; J3475; J7605; U0003

== ENCOUNTER 2022-07-08 12:54 | Inpatient (IN) | payer OTHER ==
--- OUTSIDE RECORDS SUMMARY | 2022-07-08 12:58 | XMS REPORT | Continuity of Care Document ---
:1960 Author Organization [facility] t Address [address] [place] [place] [address] Care Team Providers Name Role Phone JOSE MCGUIRE Primary Care Physician Unavailable Billy Howard Attending Clinician Unavailable NEGRA DUNAWAY Attending Clinician Unavailable Jethro Dodge MD Attending Clinician [phone] JETHRO DODGE Attending Clinician Unavailable Doctor Unassigned, [place] Attending Clinician Unavailable Christa King MD Attending Clinician CHRISTA KING Attending Clinician Unavailable JESSE ARREDONDO Attending Clinician Unavailable Dallas Higgins MD Attending Clinician David CARDONA, Viviana Person Attending Clinician Jeronimo Hogue MD Attending Clinician Julian Gonzales MD Attending Clinician Emelina DIETRICH, Sammie Attending Clinician Jordin DIETRICH, Tyler Attending Clinician Chu Marin MD Attending Clinician [phone] CHU MARIN Attending Clinician Unavailable Enriqueta HANNAP, Negra Attending Clinician [phone] Lizbeth Verdugo RN Attending Clinician Annette Conrad MD Attending Clinician ANNETTE CONRAD Attending Clinician Unavailable Edilma Escobar MD Attending Clinician EDILMA ESCOBAR Attending Clinician Unavailable Jethro Zhao MD Attending Clinician JETHRO ZHAO Attending Clinician Unavailable Nesha Regalado MD Attending Clinician HESHAM MENDOZA Attending Clinician Unavailable Tyler Trevizo MD Admitting Clinician TYLER TREVIZO Admitting Clinician Unavailable Annette Conrad MD Admitting Clinician ANNETTE CONRAD Admitting Clinician Unavailable JETHRO ZHAO Admitting Clinician Unavailable Jethro Zhao MD Admitting Clinician HESHAM MENDOZA Admitting Clinician Unavailable Payers Payer Name Policy Type Policy Number Effective Date Expiration Date [place] patricia [facility] [id number] 2012 00:00:00 PLUS Problems Condition Condition Condition [...] chronic 2-17 [place] of [place] congest[place] congestive 00 [place] dical heart heart Branch failure failure Essential Essential Disease Active Uni vers hypertensi hypertensi 2-17 it y of on on 00:00: Medical Branch Other Other Disease Active Univers hyperlipid hyperlipid 2-17 it y of emia emia 00:00: [facility] Branch Respirator Respirator Disease Active U nivers y failure y failure 2-16 ity of 00:00: Medical Branch Obesity Obesity Disease Active Univers (BMI (BMI 9-11 ity of 30-39.9) 30-39.9) 00:00: Medical Branch Morbid Morbid Disease Active Univers obesity obesity 1-15 [place] of with body with body 00:[place] mass index mass index 00 Me dical of of Branch 40.0-49.9 40.0-49.9 Tobacco Tobacco Disease Active [facility] Hypoxemia Hypoxemia Disease [facility] Acute Acute Disease Active [facility] hypercapni hypercapni 6-05 Pema kes c c 00:00: Medical respirator respirator 00 Ce nter y failure y failure Chronic Chronic Disease Active Univers obstructiv obstructiv it y of e e [place] pulmonary pulmonary [facility] derrick disease disease Branch with acute with acute exacerbati exacerbati on on VIVEK on VIVEK on Disease Active Univers CPAP CPAP ity of [facility] Hypothyroi Hypothyroi Disease Active U nivers dism dism ity of [facility] Bipolar Bipolar Disease Active Univers affective affective ity of disorder disorder [facility] Wears Wears Disease Active Univers partial partial ity of dentures dentures [facility] Allergies, Adverse Reactions, Alerts Allergy Allergy Status Severity Reaction(s) Onset Inactive Treating Comm ents Source Name Type Date Date Clinician CODEINE DRUG Active Med ITCHING 2014-09 Univers INGREDI 10-31 ity of 00:00: [facility] Codeine Propensi Active Itching 2014-09 Per pt Univer s ty to 10-31 she is no ity of adverse 00:00: longer [place] reaction 00 allergic Medica l s to to Branch drug codeine Social History Social Habit Start Date Stop Date Quantity Comments Source History SDOH University o f Alcohol Frequency [place] M edical Branch History SDOH University o f Alcohol Std [place] Medical Drinks Branch History SDOH University o f Alcohol Binge [place] Medic al Branch History of Cigarette Smoker Universi ty of tobacco use [facility] Exposure to 2022-05-28 2022-06-07 Not sure University of SARS-CoV-2 00:00:00 12:57:00 [facility] (event) [place] Tobacco use and 2022-06-07 2022-06-07 Smokeless tobacco Un iversity of exposure 00:00:00 00:00:00 non-user [facility] Alcohol intake 2022-06-07 2022-06-07 0 /d University of 00:00:00 00:00:00 [facility] Tobacco Comment 2022-06-07 2022-06-07 1-1.5 packs a day, U niversity of 00:00:00 00:00:00 quit 2019 [facility] Alcohol Comment 2020-11-12 2020-11-12 occasionally Univers ity of 00:00:00 00:00:00 [facility] Sex Ass[birth year] At [birth year] Universit y of 00:00:00 00:00:00 [facility] Smoking Status Start Date Stop Date Source Ex-smoker 2022-06-07 00:00:00 2022-06-07 00:00:00 [facility] Medications Ordered Filled Start Stop Current Ordering Indication Dosage Frequency Signature Comments Components Source Medication Medication Date Date Medication? Clinician (SIG) Name Name methylPREDN 2021- No [id number] 80mg U nivers ISolone 06-07 ity of acetate 19:30: 18:38 [place] (DEPO-MEDRO 00 :00 Medical L) Branch injection 80 mg methylPREDN 2021- No [id number] 80mg 80 mg, Univers ISolone 06-07 Intramuscu ity o f acetate 19:30: 18:38 lar, ONCE, Satish as (DEPO-MEDRO 00 :00 1 dose, On Me dical L) Fri Branch injection 06/07/22 at 80 mg 1430, Routine methylPREDN 2021- No [id number] 80mg U nivers ISolone 06-07 ity of acetate 19:30: 18:38 [place] (DEPO-MEDRO 00 :00 Medical L) Branch injection 80 mg methylPREDN 2021- No [id number] 80mg 80 mg, Univers ISolone 06-07 Intramuscu ity o f acetate 19:30: 18:38 lar, ONCE, Satish as (DEPO-MEDRO 00 :00 1 dose, On Me dical L) Fri Branch injection 06/07/22 at 80 mg 1430, Routine carvedilol Yes 3.125mg Take 3.125 Univers (COREG) 9-24 mg by ity of 3.125 mg 14:31: mouth 2 [place] tablet 41 (two) Medical times [place] daily with meals. traMADol 50 Yes 50mg Take 50 mg Univers mg tablet 9-24 by mouth 3 ity of 14:31: (three) [place] 41 times Medical daily. Branch carvedilol Yes 3.125mg Take 3.125 Univers (COREG) 9-24 mg by ity of 3.125 mg 14:31: mouth 2 [place] tablet 41 (two) Medical times [place] daily with meals. traMADol 50 Yes 50mg Take 50 mg Univers mg tablet 9-24 by mouth 3 ity of 14:31: (three) [place] 41 times Medical daily. Branch carvedilol Yes 3.125mg Take 3.125 Univers (COREG) 9-24 mg by ity of 3.125 mg 14:31: mouth 2 [place] tablet 41 (two) Medical times [place] daily with meals. traMADol 50 Yes 50mg Take 50 mg Univers mg tablet 9-24 by mouth 3 ity of 14:31: (three) [place] 41 times Medical daily. Branch DALIRESP Yes Univers 500 mcg 9-22 ity of tablet 00:00: [facility] DALIRESP 0 Yes Univers 500 mcg 9-22 ity of tablet 00:00: [place] [facility] DALIRESP 0 Yes Univers 500 mcg 9-22 ity of tablet 00:00: [address] predniSONE 2020-0 Yes 10mg Take 10 mg U nivers 10 mg 8-31 by mouth ity of tablet 00:00: daily. [address] predniSONE 2020-0 Yes 10mg Take 10 mg U nivers 10 mg 8-31 by mouth ity of tablet 00:00: daily. [place] [facility] predniSONE 2020-0 Yes 10mg Take 10 mg U nivers 10 mg 8-31 by mouth ity of tablet 00:00: daily. [place] [address] Medical Branch predniSONE 2020-0 Yes TAKE 1 Unive rs 20 mg 8-26 TABLET BY ity of tablet 00:00: MOUTH [place] 00 TWICE Medical DAILY FOR Branch 7 DAYS THEN 1 TABLET FOR 7 DAYS predniSONE 2020-0 Yes TAKE 1 Unive rs 20 mg 8-26 TABLET BY ity of tablet 00:00: MOUTH [place] TWICE Medical DAILY FOR Branch 7 DAYS THEN 1 TABLET FOR 7 DAYS predniSONE 2020-0 Yes TAKE 1 Unive rs 20 mg 8-26 TABLET BY ity of tablet 00:00: MOUTH [place] TWICE Medical DAILY FOR Branch 7 DAYS THEN 1 TABLET FOR 7 DAYS benzonatate 0 Yes TAKE 1 Univ ers 100 mg 8-25 CAPSULE BY ity of capsule 00:00: MOUTH [place] THREE Medical TIMES Branch DAILY NEEDED FOR COUGH fluconazole 0 Yes 200mg Take 200 U nivers 200 mg 8-25 mg by ity of tablet 00:00: mouth [place] every Medical morning. Branch POLY-IRON Yes Take by Unive rs 150 mg iron 8-25 mouth ity of capsule 00:00: daily. [place] [address] Medical Branch LIDOCAINE 2020-0 Yes TAKE 15ML Uni vers VISCOUS 2 % 8-25 BY MOUTH ity of solution 00:00: THREE [place] TIMES Medical DAILY Branch NEEDED FOR SORE THROAT benzonatate 0 Yes TAKE 1 Univ ers 100 mg 8-25 CAPSULE BY ity of capsule 00:00: MOUTH [place] [address] THREE Medical TIMES Branch DAILY NEEDED FOR COUGH fluconazole 2020-0 Yes 200mg Take 200 U nivers 200 mg 8-25 mg by ity of tablet 00:00: mouth [place] [address] every Medical morning. Branch POLY-IRON 0 Yes Take by Unive rs 150 mg iron 8-25 mouth ity of capsule 00:00: daily. [place] [address] Medical Branch LIDOCAINE 2020-0 Yes TAKE 15ML Uni vers VISCOUS 2 % 8-25 BY MOUTH ity of solution 00:00: THREE [place] [address] TIMES Medical DAILY Branch NEEDED FOR SORE THROAT benzonatate 0 Yes TAKE 1 Univ ers 100 mg 8-25 CAPSULE BY ity of capsule 00:00: MOUTH [place] [address] THREE Medical TIMES Branch DAILY NEEDED FOR COUGH fluconazole 2020-0 Yes 200mg Take 200 U nivers 200 mg 8-25 mg by ity of tablet 00:00: mouth [place] 00 every Medical morning. Branch POLY-IRON Yes Take by Unive rs 150 mg iron 8-25 mouth ity of capsule 00:00: daily. [place] 00 Medical Branch LIDOCAINE Yes TAKE 15ML Uni vers VISCOUS 2 % 8-25 BY MOUTH ity of solution 00:00: THREE [place] 00 TIMES Medical DAILY Branch NEEDED FOR SORE THROAT acetaZOLAMI Yes 250mg Take 250 U nivers DE 250 mg 7-28 mg by ity of tablet 00:00: mouth 2 [place] 00 (two) Medical times Branch daily. ELIQUIS 5 Yes 5mg Take 5 mg Uni vers mg tablet 7-28 by mouth 2 ity of 00:00: (two) [place] 00 times Medical daily. Branch docusate Yes TAKE 2 Univers 100 mg 7-28 CAPSULES ity of capsule 00:00: BY MOUTH [place] 00 TWICE Medical DAILY. Branch nystatin Yes SHAKE Univers 100,000 7-28 LIQUID AND ity of unit/mL 00:00: TAKE 5 ML [place] suspension 00 BY MOUTH Medic al THREE Branch TIMES DAILY zinc 2020- Yes 220mg Take 220 Univers sulfate 50 7-28 mg by ity of mg zinc 00:00: mouth [place] (220 mg) 00 daily. Medical capsule Branch acetaZOLAMI Yes 250mg Take 250 U nivers DE 250 mg 7-28 mg by ity of tablet 00:00: mouth 2 00 (two) Medical times Branch daily. ELIQUIS 5 Yes 5mg Take 5 mg Uni vers mg tablet 7-28 by mouth 2 ity of 00:00: (two) [place] 00 times Medical daily. Branch docusate Yes TAKE 2 Univers 100 mg 7-28 CAPSULES ity of capsule 00:00: BY MOUTH [place] 00 TWICE Medical DAILY. Branch nystatin Yes SHAKE Univers 100,000 7-28 LIQUID AND ity of unit/mL 00:00: TAKE 5 ML [place] suspension 00 BY MOUTH Medic al THREE Branch TIMES DAILY zinc 2020-0 Yes 220mg Take 220 Univers sulfate 50 7-28 mg by ity of mg zinc 00:00: mouth [place] (220 mg) 00 daily. Medical capsule Branch acetaZOLAMI Yes 250mg Take 250 U nivers DE 250 mg 7-28 mg by ity of tablet 00:00: mouth 2 [place] 00 (two) Medical times Branch daily. ELIQUIS 5 Yes 5mg Take 5 mg Uni vers mg tablet 7-28 by mouth 2 ity of 00:00: (two) [place] 00 times Medical daily. Branch docusate Yes [...] (220 mg) 00 daily. Medical capsule Branch albuterol Yes 2.5mg Inhale 2.5 U nivers [...] Medical 62.5-25 Branch mcg/actuati on inhalation disk albuterol Yes 2.5mg Inhale 2.5 U nivers [...] Medical 62.5-25 Branch mcg/actuati on inhalation disk albuterol Yes 2.5mg Inhale 2.5 U nivers [...] at [place] 55 bedtime. Medical Branch clonazePAM 0 Yes .5mg Take 0.5 Uni vers 0.5 mg 2-25 mg by ity of tablet 16:35: mouth as [place] 55 needed. Medical Branch umeclidiniu Yes Inhale. Uni vers m-vilantero 2-25 ity of l (ANORO 16:35: [place] ELLIPTA) 55 Medical 62.5-25 Branch mcg/actuati on inhalation disk guaiFENesin 2020-0 Yes [id number] 100mg Take 5 mL Univers 100 mg/5 mL 2-25 by mouth ity of solution 00:00: every 4 [place] 00 (four) Medical hours as Branch needed for Cough. furosemide 2020-0 Yes [id number] 40mg Take 2 Univers 20 mg 2-25 tablets by ity of tablet 00:00: mouth [place] 00 daily. Medical Branch guaiFENesin 2020-0 Yes [id number] 100mg Take 5 mL Univers 100 mg/5 mL 2-25 by mouth ity of solution 00:00: every 4 [place] 00 (four) Medical hours as Branch needed for Cough. furosemide 2020-0 Yes [id number] 40mg Take 2 Univers 20 mg 2-25 tablets by ity of tablet 00:00: mouth 00 daily. Medical Branch guaiFENesin 2020-0 Yes [id number] 100mg Take 5 mL Univers 100 mg/5 mL 2-25 by mouth ity of solution 00:00: every 4 [place] 00 (four) Medical hours as Branch needed for Cough. furosemide 2020-0 Yes [id number] 40mg Take 2 Univers 20 mg 2-25 tablets by ity of tablet 00:00: mouth 00 daily. Medical Branch pantoprazol 2020-0 Yes 40mg Take 1 Univ ers e 40 mg EC 2-21 tablet by ity of tablet 00:00: mouth 00 daily. Medical Branch pantoprazol 2020-0 Yes 40mg Take 1 Univ ers e 40 mg EC 2-21 tablet by ity of tablet 00:00: mouth 00 daily. Medical Branch pantoprazol 2020-0 Yes 40mg Take 1 Univ ers e 40 mg EC 2-21 tablet by ity of tablet 00:00: mouth [place] 00 daily. Medical Branch gabapentin 2020-0 Yes 300mg Take 1 Univ ers 300 mg 2-20 capsule by ity of capsule 00:00: mouth 2 00 (two) Medical times Branch daily. melatonin 3 2020-0 Yes 6mg Take 2 Univ ers mg tablet 2-20 tablets by ity of 00:00: mouth at [place] 00 bedtime. Medical Branch gabapentin 2020-0 Yes 300mg Take 1 Univ ers 300 mg 2-20 capsule by ity of capsule 00:00: mouth 2 [place] 00 (two) Medical times Branch daily. melatonin 3 Yes 6mg Take 2 Univ ers mg tablet 2-20 tablets by ity of 00:00: mouth at [place] [address] bedtime. Medical Branch gabapentin Yes 300mg Take 1 Univ ers 300 mg 2-20 capsule by ity of capsule 00:00: mouth 2 [place] (two) Medical times Branch daily. melatonin 3 Yes 6mg Take 2 Univ ers mg tablet 2-20 tablets by ity of 00:00: mouth at [place] [address] bedtime. Medical Branch fluticasone Yes 1{spray Use 1 Un merry propionate 6-24 } Wana in ity o f 50 00:00: each [place] mcg/actuati 00 nostril Medic al on nasal daily. Branch spray fluticasone Yes 1{spray Use 1 Un merry propionate 6-24 } Wana in ity o f 50 00:00: each [place] mcg/actuati 00 nostril Medic al on nasal daily. Branch spray fluticasone Yes 1{spray Use 1 Un merry propionate 6-24 } Wana in ity o f 50 00:00: each [place] mcg/actuati 00 nostril Medic al on nasal daily. Branch spray latanoprost Yes 1[drp] Place 1 U nivers 0.005 % 6-23 Drop in ity of ophthalmic 00:00: [place] eyes [place] drops 00 daily. Medical Branch latanoprost Yes 1[drp] Place 1 U nivers 0.005 % 6-23 Drop in ity of ophthalmic 00:00: [place] eyes [place] drops 00 daily. Medical Branch latanoprost Yes 1[drp] Place 1 U nivers 0.005 % 6-23 Drop in ity of ophthalmic 00:00: [place] eyes [place] drops 00 daily. Medical Branch azithromyci Yes 250mg QD Take [address] [facility] [facility] 6-07 tablet [facility] (ZITHROMAX) 00:00: (250 mg Med ical 250 MG 00 total) by Center tablet mouth daily Take by mouth as directed.. predniSONE Yes Take 4 [facility] (DELTASONE) 6-07 [facility] 10 MG 00:00: daily for Medical tablet 00 4 days, Center then 3 tablets daily for 4 days, then 2 tablets daily until tablets run out.. azithromyci 2017-0 Yes 250mg QD Take [address] [facility] 6-07 tablet [facility] (ZITHROMAX) 00:00: (250 mg Med ical 250 MG 00 total) by Center tablet mouth daily Take by mouth as directed.. predniSONE 2016- Yes Take 4 [facility] (DELTASONE) 6[facility]07 [facility] 10 MG 00:00: daily for Medical tablet 00 4 days, Center then 3 tablets daily for 4 days, then 2 tablets daily until tablets run out.. Vital Signs Vital Name Observation Time Observation Value Comments Source Systolic blood 2022-06-07 18:07:00 153 mm[Hg] [facility] Di[facility] 2022-06-07 18:07:00 97 mm[Hg] [facility] Heart rate 2022-06-07 18:07:00 96 /min [facility] Body temperature 2022-06-07 18:07:00 36.39 [facility] Body height 2022-06-07 18:07:00 175.3 cm [facility] Body weight 2022-06-07 18:07:00 130.636 kg [facility] BMI 2022-06-07 18:07:00 42.53 kg/m2 [facility] Procedures Procedure Date / Time Performed Performing Clinician Sourc e XR SHOULDER 2+ VW 2022-06-07 18:28:19 Jethro Dodge [facility] Encounters Start End Encounter Admission Attending Care Care Encounter Source Date/Time Date/Time Type Type Clinicians Facility Department ID 2022-05-07 Outpatient UBALDO Howrad [facility] [id number] Common 14:36:03 [facility] [address] [facility] 2022-06-24 2022-06-24 Outpatient Pepper LEACH [facility] [id number] [facility] 11:40:00 11:40:00 keisha RAMIREZ [facility] 2022-06-07 2022-06-07 [facility] Sofia [facility] 1.2.840.114 [id number] Univers 13:11:58 23:59:00 Encounter Jethro SPECIALTY [id number] ity of [facility] 4.2.7.2.686 [facility] s CENTER AT [id number] Dc terrence HOOK 809 [facility] 2022-06-07 2022-06-07 [facility] [id number] Univers 13:20:00 13:44:39 Visit Jethro SPECIALTY 350.1.13.10 ity of [facility] 4.2.7.2.686 [facility] [place] [facility] AT [id number] Dc terrence HOOK 198 [facility] 2022-06-07 2022-06-07 [facility] [id number] Univers 13:20:00 13:44:[address] [facility] 2022-06-07 2022-06-07 [facility] [id number] Univers 13:20:00 13:44:[address] [facility] 2022-06-07 2022-06-07 [facility] [id number] Univers 13:20:00 13:20:[address] [facility] 2022-05-30 2022-05-30 [facility] [id number] Univers 13:10:00 13:10:00 JETHRO [facility] 2022-05-22 2022-05-22 Orders Doctor THI Alvarez2.840.114 [id number] Univers 00:00:00 00:00:00 Only Unassigned, VANESSA 350.1.13.10 ity of [facility] 4.2.7.2.686 Satish [id number] [address] 2022-05-07 2022-05-07 ambulatory STLMLC STLMLC [id number] Common 00:00:00 00:00:00 [facility] 2022-05-07 2022-05-07 ambulatory STLMLC STLMLC [id number] Common 00:00:00 00:00:00 [facility] 2022-04-18 2022-04-18 Orders Doctor THI Alvarez2.840.114 [id number] Univers 00:00:00 00:00:00 Only Unassigned, VANESSA 350.1.13.10 ity of [place] [facility] 4.2.7.2.686 Satish as [id number] [address] 2021-06-15 2021-06-15 Office Christa King [facility] Michael 1.2.840.114 [id number] Univers 14:04:32 15:05:28 Visit Salazar Girard 350.1.13.10 it y of [facility] 4.2.7.2.686 [place] [facility] [id number] [place] [address] Branch 2021-06-15 2021-06-15 Outpatient R CHRISTINE [facility] [id number] Univers 14:30:00 14:30:[address] [facility] 2021-06-08 2021-06-08 Outpatient R CHRISTINE [facility] [id number] Univers 14:00:00 14:00:[address] [facility] 2021-06-04 2021-06-04 Outpatient R JESSE ARREDONDO [facility] [id number] Univers 13:00:00 13:00:[address] [facility] 2021-01-25 2021-01-25 Orders Doctor NESS 1.2.840.114 [id number] 00:00:00 00:00:00 Only Unassigned, VANESSA 350.1.13.10 [facility] 4.2.7.2.686 [id number] 2021-01-25 2021-01-25 Orders Doctor NESS 1.2.840.114 [id number] Univers 00:00:00 00:00:00 Only Unassigned, VANESSA 350.1.13.10 ity of [place] [facility] 4.2.7.2.686 Satish as [id number] [address] 2021-01-15 2021-01-15 Orders Doctor NESS 1.2.840.114 [id number] 00:00:00 00:00:00 Only Unassigned, VANESSA 350.1.13.10 [facility] 4.2.7.2.686 [id number] 2021-01-15 2021-01-15 Orders Doctor THI 1.2.840.114 [id number] Univers 00:00:00 00:00:00 Only Unassigned, VANESSA 350.1.13.10 ity of [place] [facility] 4.2.7.2.686 Satish as [id number] [facility] 009 Branch 2020-11-17 2020-11-17 [facility] 1.2.840.114 [id number] 00:00:00 00:00:00 Management [place] Oates MULTISPEC 350.1.13.10 IALTY 4.2.7.2.686 CENTER [id number] [facility]ES [facility] 2020-11-17 2020-11-17 Transition Molly Hernandez 1.2.840.114 [id number] 00:00:00 00:00:00 of Care Viviana Leviy 350.1.13.10 [place] 4.2.7.2.686 [id number] 2020-11-17 2020-11-17 Transition Molly Hernandez 1.2.840.114 [id number] Univers 00:00:00 00:00:00 of Care Viviana Person Chiu 350.1.13.10 i ty of [place] 4.2.7.2.686 [place] [id number] [facility] 403 Branch 2020-11-17 2020-11-17 [facility] 1.2.840.114 [id number] Univers 00:00:00 00:00:00 Management [place] Oates MULTISPEC 350.1.13.10 ity of [place] 4.2.7.2.686 [place] CENTER [id number] [facility] AND CLARICE 085 Branch DIABETES CLINIC 2020-11-12 2020-11-16 Hospital Jeronimo Hogue 1.2.840.1 [id number] 18:33:00 16:20:00 Encounter Julian Gonzales 350.1.13.10 [facility]gins [facility] 4.2.7.2.686 Sammie Tarango [id number] [place] Trevizo 09Chu Causey Shahzad Suthar, Krishna Hemant 2020-11-12 2020-11-16 [facility] [id number] Univers 18:33:00 16:20:00 CHU ity of [facility] 2020-11-12 2020-11-16 [facility] Jeronimo Hogue 1.2.840.1 [id number] Univers 18:33:00 16:20:00 Encounter Julian Gonzales 350.1.13.10 ity of [facility] 4.2.7.2.686 [facility] [place] Sammie [id number] [facility] Tyler Trevizo 5 [place] Sung Chu MorenoTyler Harris Chu Marin Moreno 2020-11-14 2020-11-14 Telephone [facility] 1.2.840.114 [id number] 00:00:00 00:00:00 ashley, SPECIALTY 350.1.13.10 [place] [facility] 4.2.7.2.686 CENTER AT [id number] [address] 2020-11-14 2020-11-14 Telephone [facility] 1.2.840.114 [id number] Univers 00:00:00 00:00:00 ashley, SPECIALTY 350.1.13.10 ity of [place] 4[place]2.7.2.686 [place] C[place] AT [id number] Dc dical [address] 2020-11-13 2020-11-13 Transition Molly Verdugo 1.2.840.114 [id number] 00:00:00 00:00:00 of Care Lizbeth Chiu 350.1.13.10 [place] 4.2.7.2.686 [id number] 2020-11-13 2020-11-13 Transition Molly Verdugo 1.2.840.114 [id number] Univers 00:00:00 00:00:00 of Care Lizbeth Chiu 350.1.13.10 it y of [place] 4.2.7.2.686 [place] [id number] [place] [address] Branch 2020-11-07 2020-11-11 [facility] Jeronimo Hogue [facility] 1.2.840.1 [id number] 06:48:00 14:50:00 Encounter Gita Annette Amador 350.1.13.10 [place] 4.2.7.2.686 [facility] [id number] [facility] 2020-11-07 2020-11-11 Inpatient X GITA DEEDEE [facility] [id number] Univers 06:48:00 14:50:[address] [facility] 2020-11-07 2020-11-11 [facility] Mykel [facility] 1.2.840.1 [id number] [facility] 06:48:00 14:50:00 Encounter Annette Conrad [place] 350.1.13.10 ity of [place] 4.2.7.2.686 [facility] [id number] [address] 2020-07-12 2020-07-12 [facility] 1.2.840.114 [id number] 11:56:24 23:59:00 Encounter ashley, Pediatric 350.1.13.10 [place] and 4.2.7.2.686 Adult [id number] [address] 2020-07-12 2020-07-12 [facility] 1.2.840.114 [id number] [facility] 11:56:24 23:59:00 Encounter ashley, Pediatric 350.1.13.10 ity of [place] and 4[place]2.7.2.686 [place] Adult [id number] [facility] Primary 9 Branch Care [facility] 2020-07-12 2020-07-12 [facility] 1.2.840.114 [id number] 11:00:10 13:58:54 Visit ashley, Pediatric 350.1.13.10 [place] and 4.2.7.2.686 Adult [phone] [address] 2020-07-12 2020-07-12 Office [facility] 1.2.840.114 [id number] Univers 11:00:10 13:58:54 Visit ashley, Pediatric 350.1.13.10 it[place] [phone] [facility] [address] [facility] 2020-07-12 2020-07-12 Outpatient R HARMONY-KU [facility] [id number] Univers 11:00:00 11:00:00 ASHLEY, ity of [place] [facility] 2020-07-03 2020-07-03 Orders Doctor THI 1.2.840.114 [id number] 00:00:00 00:00:00 Only Unassigned, VANESSA 350.1.13.10 [facility] [id number] 2020-07-03 2020-07-03 Orders Doctor THI 1.2.840.114 [id number] Univers 00:00:00 00:00:00 Only Unassigned, VANESSA 350.1.13.10 ity of [facility] 4.2.7.2.686 Satish as [phone] [address] 2020-06-02 2020-06-02 Office [facility] 1.2.840.114 [id number] Univers 12:31:11 14:20:12 Visit Edilma Amador 350.1.13.10 [place] [phone] [address] 2020-06-02 2020-06-02 Outpatient R ADUM, [facility] [id number] Univers 13:00:00 13:00:00 EDILMA valdes of [facility] 2020-06-02 2020-06-02 Orders Doctor NESS 1.2.840.114 [id number] Univers 00:00:00 00:00:00 Only Unassigned, VANESSA 350.1.13.10 ity of [facility] 4.2.7.2.686 Satish as [phone] [address] 2020-05-26 2020-05-26 Outpatient R ADUM, [facility] [id number] Univers 10:45:00 10:45:00 [facility] 2020-05-26 2020-05-26 Telemedici [facility] 1.2.840.114 [id number] Univers 08:07:24 08:37:24 ne Visit Edilma Mohit [place] 350.1.13.10 [place] [phone] Dc dic[address] 2020-05-12 2020-05-12 Outpatient R [facility] [id number] Univers 13:00:00 13:00:[address] [facility] 2020-04-25 2020-04-25 Hospital [facility] 1.2.840.114 [id number] Univers 15:50:23 23:59:00 Encounter Edilma Aamdor 350.1.13.10 [place] [phone] [facility] [address] 2020-04-25 2020-04-25 Outpatient R [facility] [id number] Univers 00:00:00 00:00:[address] [facility] 2020-04-25 2020-04-25 Orders Doctor THI 1.2.840.114 [id number] Univers 00:00:00 00:00:00 Only Unassigned, VANESSA 350.1.13.10 ity of [place] [facility] 4.2.7.2.686 Satish as [phone] [facility] [address] 2020-04-14 2020-04-14 Office [facility] 1.2.840.114 [id number] Univers 14:15:54 14:56:38 Visit Edilma Mohit [place] 350.1.13.10 [place] [phone] Dc dical [address] 2020-04-14 2020-04-14 [facility] [id number] Univers 13:30:00 13:30:[address] [facility] 2020-04-13 2020-04-13 Orders Doctor THI 1.2.840.114 [id number] Univers 00:00:00 00:00:00 Only Unassigned, VANESSA 350.1.13.10 ity of [facility] 4.2.7.2.686 Satish as [phone] [facility] [address] 2019-11-01 2019-11-01 Telephone [facility] 1.2.840.114 [id number] Univers 00:00:00 00:00:00 Jethro HEALTH 350.1.13.10 it y of [place] 4.2.7.2.686 [facility] [phone] [facility] Primary & [address] [facility] 2019-10-28 2019-10-28 Telephone [facility] 1.2.840.114 [id number] Univers 00:00:00 00:00:00 Jethro HEALTH 350.1.13.10 it [place] 4.2.7.2.686 [facility] [phone] [facility] [address] [facility] 2019-10-26 2019-10-26 Office [facility] 1.2.840.114 [id number] Univers 14:08:12 15:44:07 Visit Jethro ESTES 350.1.13.10 it y of [place] 4.2.7.2.686 [facility] [phone] [facility] Primary & [address] [facility] 2019-10-07 2019-10-07 Telephone [facility] 1.2.840.114 [id number] Univers 00:00:00 00:00:00 Jethro LUCAS 350.1.13.10 i ty of [facility] [place] [phone] [facility] [address] 2019-10-06 2019-10-06 [facility] [id number] Univers 10:39:27 23:59:00 JETHRO ity of [facility] 2019-10-06 2019-10-06 [facility] Aleida Zhao 1.2.341.348 [id number] Univers 10:39:00 23:59:00 Encounter Jethro Vanessa 350.1.13.10 ity of [facility] 4.2.7.2.686 Satish as [phone] [facility] [address] 2019-10-06 2019-10-06 [facility] Aleida Zhoa [id number] Univers 09:41:27 16:32:00 Encounter Jethro Mendez 350.1.13.10 ity of [facility] 4.2.7.2.686 Satish as [phone] [facility] [address] 2019-10-06 2019-10-06 Orders Doctor THI 1.2.840.[id number] [place] [address] 00:00:00 00:00:00 Only Unassigned, VANESSA 350.1.13.10 ity of [place] [facility] 4.2.7.2.686 Satish as [phone] [facility] [address] 2019-05-28 2019-05-28 Office Regalado, [facility] 1.2.840.114 [id number] [facility] 13:10:51 15:03:17 Visit Nesha Amador 350.1.13.10 [place] [phone] Me dical nal [address] Results Test Description Test Time Test Comments [...] NOT 1092) ACCURATE CRE ATININE CLEARANCE IN HI EDICTING GLOMERULAR FILT RATION RATE. ESTIMATED GFR [...] 0-0 (BEAKER) (test code = 413) 0.00POCT-GLUCOSE [id number] 17:50:00 Test Item Value Reference Range Interpretation Comments POC-GLUCOSE METER 118 mg/dL 70-110 H TESTED AT [place] [address] ([facility]) (test code = KISHA Pabon [facility] 1538) [id number] POCT-GLUCOSE [id number] 11:59:00 Test Item Value Reference Range Interpretation Comments POC-GLUCOSE METER 247 mg/dL 70-110 H TESTED AT [place] [address] ([facility]) (test code = KISHA Pabon [facility] 1538) [address] POCT-GLUCOSE [id number] 07:54:00 Test Item Value Reference Range Interpretation Comments POC-GLUCOSE METER 141 mg/dL 70-110 H TESTED AT [place] [address] ([facility]) (test code = KISHA Pabon [facility] 1538) [id number] CBC W/PLT COUNT & AUTO [id number] 03:45:00 Test Item Value Reference Range Interpretation Comments WHITE BLOOD CELL COUNT (AKER) 4.9 K/ L 4.0-10.0 (test code = [...] K/ L 0.00-0.20 (test code = 417) [id number] 03:29:00 Test Item Value Reference Range Interpretation Comments MAGNESIUM (BEAKER) 1.8 mg/dL 1.6-2.6 Specimen slightly (test code = 627) hemolyzed BASIC METABOLIC [id number] 03:29:00 Test Item Value Reference Range Interpretation [...] NOT APPLICABLE FOR DIALYSIS PATIEN TS. POCT-GLUCOSE [id number] 00:05:00 Test Item Value Reference Range Interpretation Comments POC-GLUCOSE METER 117 mg/dL 70-110 H TESTED AT [facility] 6720 (BEAKER) (test code = [facility] [place] 1538) [id number] POCT-GLUCOSE [id number] 18:17:00 Test Item Value Reference Range Interpretation Comments POC-GLUCOSE METER 141 mg/dL 70-110 H TESTED AT [facility] 6720 [facility] (test code = [facility] [place] 1538) [address] CREATINE KINASE (CK), TOTAL AND [id number] 15:43:00 Test Item Value Reference Range Interpretation Comments CREATINE KINASE TOTAL (BEAKER) 31 U/L 29-200 (test code = 380) CREATINE KINASE-MB (BEAKER) (test 1.3 ng/mL 0.0-6.6 code = 750) CREATINE KINASE-MB INDEX (BEAKER) 4.2 % (test code = 395) Effective 08/09/2014: CK-MB Reference Range ChangeNew: 0.0-6.6 Previous: 0.0-4.9CK-MB Reference Range:<6.7 Normal6.7-10.0 Borderline>10.0 Abnormal BLOOD GAS, [id number] 15:26:00 Test Item Value Reference Range Interpretation [...] (test code = 1819) 35.0 % POCT-GLUCOSE [id number] 11:45:00 Test Item Value Reference Range Interpretation Comments POC-GLUCOSE METER 122 mg/dL 70-110 H TESTED AT [facility] 6720 (BEAKER) (test code = [place] 1538) [id number] CREATINE KINASE (CK), TOTAL AND [id number] 10:29:00 Test Item Value Reference Range Interpretation Comments CREATINE KINASE TOTAL (BEAKER) 31 U/L 29-200 (test code = 380) CREATINE KINASE-MB (BEAKER) (test 1.5 ng/mL 0.0-6.6 code = 750) CREATINE KINASE-MB INDEX (BEAKER) 4.8 % (test code = 395) Effective 08/09/2014: CK-MB Reference Range ChangeNew: 0.0-6.6 Previous: 0.0-4.9CK-MB Reference Range:<6.7 Normal6.7-10.0 Borderline>10.0 Abnormal TROPONIN [id number] 10:29:00 Test Item Value Reference Range Interpretation Comments TROPONIN I (BEAKER) (test code = 397) < ng/mL 0.00-0.03 Effective 08/09/2014: Reference Range ChangeNew: 0.00-0.03 Previous 0.00- 0.15Troponin I (TnI) levelsmust be interpreted in the context of the [...] failure, acidosis, acute neurological disease, and persistent tachyarrhythmia.[id number] 10:22:00 Test Item Value Reference Range Interpretation Comments PARTIAL THROMBOPLASTIN TIME 22.5 seconds 22.5-36.0 (BEAKER) (test code = 760) PROTHROMBIN [id number] 10:21:00 Test Item Value Reference Range Interpretation Comments PROTIME (BEAKER) (test code = 12.4 seconds 11.7-14.7 759) INR (BEAKER) (test code = 370) 0.9 <=5.9 RECOMMENDED COUMADIN/WARFARIN INR THERAPY RANGESSTANDARD DOSE: 2.0 - 3.0 Includes: PROPHYLAXIS for venous thrombosis, systemic embolization; TREATMENT for venous thrombosis and/or pulmonary embolus.HIGH RISK: Target INR is 2.5-3.5 for patients with mechanical heart valves.BLOOD GAS, [id number] 10:17:00 Test Item Value Reference Range Interpretation [...] (test code = 1819) 40.0 % PLATELET [id number] 10:13:00 Test Item Value Reference Range Interpretation Comments PLATELET COUNT (BEAKER) (test 111 K/CU MM 150-430 L code = 756)
[2022-07-08] MEDS ORDERED: ALBUTEROL 2.5 MG/3 ML NEB SOL ONE (15:42)
[2022-07-08] MEDS ORDERED: IPRATROPIUM BROM 0.5MG/2.5ML ONE (15:42)
[2022-07-08] MEDS ORDERED: METHYLPREDNISOLONE 125 MG INJ ONE (16:29)
--- NOTE | 2022-07-08 16:29 | RAD REPORT ---
EXAM DESCRIPTION: RAD - Chest Single View - 07/08/2022 4:24 pm CLINICAL HISTORY: SOB Chest pain. COMPARISON: Chest Single View dated 08/09/2021; Chest Single View dated 08/08/2021; Chest Single Vie w dated 05/09/2021; Chest Single View dated 05/09/2021 FINDINGS: Portable technique limits examination quality. Moderate pulmonary edema. The heart is moderately enlarged. No displaced fractures. IMPRESSION: Moderate CHF.
[2022-07-08] MEDS ORDERED: ONDANSETRON 4 MG/2 ML VIAL ONE ×3 (16:30→22:24)
[2022-07-08] MEDS ORDERED: MORPHINE 4 MG/ML SYR ONE ×2 (16:30→22:23)
[2022-07-08 16:46] LABS: Absolute Lymphocytes (CBC) 1.9 K/uL (0.7-4.9); Hematocrit 38.5 % (36.0-45.0); Lymphocytes % 21.3 % (15.3-44.8); MCV 87.4 fL (80-100); MPV 7.2 fL (7.6-11.3)
[2022-07-08 17:55] LABS: Bilirubin Total 0.5 mg/dL (0.2-1.0)
[2022-07-08 17:56] LABS: Albumin 3.4 g/dL (3.4-5.0); Magnesium 2.2; Protein, Total 7.1 g/dL (6.4-8.2)
[2022-07-08 18:14] LABS: Potassium 4.3 mmol/L (3.5-5.1); Troponin High Sensitivity 17.6 pg/mL (<58.9)
--- NOTE | 2022-07-08 19:43 | EDPHYS ---
Physician Documentation [facility] Name: Vikki Zamudio Age: 61 yrs Sex: Female : 1960 Arrival Date: 07/08/2022 Time: 12:57 Bed 15 Private MD: ED Physician Reena Little HPI: 07/08 15:27 This 61 yrs old Female presents to ER via EMS with complaints of Shortness Of Breath. sd2 15:27 61-year-old female presents via EMS with chief complaint of shortness of breath. She sd2 has a history of CHF and COPD which has caused similar symptoms in the past and is on 3 L nasal cannula at all times. She also complains of chest wall soreness from her coughing and that she coughed up some blood-tinged sputum today. She denies any fevers, vomiting, diarrhea or sick contacts. She has been using her home inhalers and normal medications without relief.. Historical: - Allergies: 13:57 No Known Allergies; vg1 - Home Meds: 13:57 Albuterol Inhl [Active]; atorvastatin 20 mg Oral tab 1 tab once daily [Active]; aspirin vg1 81 mg Oral TbEC 1 tab once daily [Active]; clonazepam 0.5 mg Oral tab 1 tab daily [Active]; levothyroxine 88 mcg tab 1 tab once daily [Active]; prednisone 20 mg Oral tab 1 tab 2 times per day [Active]; - PMHx: 13:56 CHF; COPD; GERD; High Cholesterol; Hypercarbia; Hypertension; Hypothyroidism; Panic vg1 Attacks; Sleep Apnea; - Immunization history:: Client reports having NOT received the Covid vaccine. - Social history:: Smoking status: Patient/guardian denies using tobacco, the patient reports quitting approximately 4 years ago. ROS: 15:27 Constitutional: Negative for fever, chills, and weight loss, Eyes: Negative for injury, sd2 pain, redness, and discharge. 15:27 Abdomen/GI: Negative for abdominal pain, nausea, vomiting, diarrhea. MS/Extremity: Negative for injury and deformity, Skin: Negative for injury, rash, and discoloration, Neuro: Negative for headache, numbness and tingling. 15:27 Cardiovascular: Positive for chest pain, Negative for edema, orthopnea. 15:27 Respiratory: Positive for cough, hemoptysis, shortness of breath, wheezing. Exam: 15:27 Constitutional: This is a well developed, well nourished patient who is awake, alert, sd2 and in no acute distress. Head/Face: Normocephalic, atraumatic. Eyes: EOMI, normal conjunctiva bilaterally Chest/axilla: Normal chest wall appearance and motion. Nontender with no deformity. Cardiovascular: Regular rate and rhythm with a normal S1 and S2. No gallops, murmurs, or rubs. 2+ distal pulses. Respiratory: Lungs have equal breath sounds bilaterally, mostly clear to auscultation and percussion with occasional expiratory wheeze. No rales, rhonchi or wheezes noted. No increased work of breathing, no retractions or nasal flaring. Abdomen/GI: Soft, non-tender, with normal bowel sounds. No guarding or rebound. No evidence of tenderness throughout. Skin: Warm, dry with normal turgor. Normal color with no rashes, no lesions, and no evidence of cellulitis. MS/ Extremity: Pulses equal, no cyanosis. Neurovascular intact. Full, normal range of motion. Ambulatory without difficulty. Psych: Awake, alert, with orientation to person, place and time. Behavior, mood, and affect are within normal limits. 16:04 ECG was reviewed by the Attending Physician. NSR, rate 79, sinus arrhythmia present, no sd2 STEMI criteria Vital Signs: 12:54 BP 116 / 58; Pulse 80; Resp 26; Temp 99.2(O); Pulse Ox 98% on 4 lpm NC; Weight 127.01 vg1 kg; Height 5 ft. 9 in. (175.26 cm); Pain 10/10; 14:30 BP 122 / 62; Pulse Ox 93% 3 lpm ; ko1 16:00 BP 116 / 62; Pulse 82; Pulse Ox 91% ; ko1 17:00 BP 118 / 64; ko1 18:00 BP 111 / 67; Pulse 78; Resp 22; Pulse Ox 89% ; ko1 19:49 BP 111 / 90; Pulse 80; Resp 20; Pulse Ox 92% on 5 lpm NC; Pain 10/10; aa9 21:30 BP 114 / 88; Pulse 76; Resp 16 A; Pulse Ox 95% on BiPAP; aa9 12:54 Body Mass Index 41.35 (127.01 kg, 175.26 cm) vg1 MDM: 14:40 Patient medically screened. sd2 16:04 Differential diagnosis: Differential diagnosis includes but is not limited to: ACS, sd2 DVT/PE, pneumothorax, dissection, musculoskeletal, anxiety, anemia, electrolyte abnormality, pneumonia, CHF, COPD among others. Data reviewed: vital signs, nurses notes. 19:41 Data reviewed: lab test result(s), EKG, radiologic studies. Counseling: I had a sd2 detailed discussion with the patient and/or guardian regarding: the historical points, exam findings, and any diagnostic results supporting the discharge/admit diagnosis, lab results, radiology results, the need for further work-up and treatment in the hospital. ED course: ABG with hypercapnic respiratory acidosis. Pt to be placed on BIPAP and admitted at this time. . 07/08 15:01 Order name: CBC with Diff; Complete Time: 17:27 sd2 07/08 15:01 Order name: CMP; Complete Time: 18:16 sd2 07/08 15:01 Order name: Magnesium; Complete Time: 18:16 sd2 07/08 15:01 Order name: Troponin High Sensitivity; Complete Time: 18:16 sd2 07/08 15:01 Order name: BNP; Complete Time: 18:16 sd2 07/08 15:01 Order name: Influenza Screen (a \\T\\ B); Complete Time: 16:31 sd2 07/08 15:01 Order name: SARS-COV-2 RT PCR (Document "Date of Onset" if Symptomatic); Complete Time: sd2 16:31 07/08 18:32 Order name: Troponin High Sensitivity: Send repeat \\T\\1935; Complete Time: 00:00 sd2 07/08 19:00 Order name: ABG sd2 07/08 21:56 Order name: ABG Arterial Blood Gas; Complete Time: 00:00 EDMS 07/09 03:05 Order name: CBC with Automated Diff EDMS 07/09 03:44 Order name: Basic Metabolic Panel EDMS 07/09 03:44 Order name: Phosphorus EDMS 07/09 03:44 Order name: Lipid Profile EDMS 07/08 15:01 Order name: XRAY Chest (1 view); Complete Time: 16:31 sd2 07/08 15:01 Order name: EKG - Nurse/Tech; Complete Time: 15:38 sd2 07/09 03:44 Order name: Magnesium EDMS 07/09 03:44 Order name: Thyroid Stimulating Hormone EDMS 07/09 04:39 Order name: Potassium EDMS 07/09 07:26 Order name: Glucose, Ancillary Testing EDMS 07/09 08:47 Order name: ABG Arterial Blood Gas EDMS Administered Medications: 16:28 Drug: Albuterol 5 mg Route: Inhalation; ko1 16:28 Drug: AtroVENT (ipratropium) Aerosol 0.5 mg Route: Inhalation; ko1 16:33 Drug: Zofran (Ondansetron) 4 mg Route: IVP; Site: right antecubital; ko1 16:34 Drug: SOLU-Medrol (methylPrednisoLONE) 125 mg Route: IVP; Site: right antecubital; ko1 16:34 Drug: morphine 4 mg Route: IVP; Infused Over: 4 mins; Site: right antecubital; ko1 18:39 Drug: Zofran (Ondansetron) 4 mg Route: IVP; Site: right antecubital; ko1 Disposition Summary: 07/08/22 19:43 Hospitalization Ordered Hospitalization Status: Inpatient Admission sd2 Provider: Sarwat Olvera sd2 Condition: Stable sd2 Problem: an acute exacerbation sd2 Symptoms: have improved sd2 Bed/Room Type: Standard sd2 Location: Telemetry/MedSurg (Inpatient)(07/09/22 09:27) ja1 Room Assignment: [facility](07/09/22 09:27) ja Diagnosis - Acute and chronic respiratory failure with hypercapnia sd2 Forms: - Medication Reconciliation Form sd2 - SBAR form sd2 Signatures: Dispatcher [employer] EDMS Belinda Damon, RN RN Jomar Denton RN RN tony1 Mallory Damon RN RN Reena Whatley MD MD sd2 Almita Freed RN RN ko1 Yanelis John PA-C PA-C sb4 Corrections: (The following items were deleted from the chart) 13:59 13:56 Allergies: Codeine; vg1 vg1 13:59 13:56 Allergies: Morphine; vg1 vg1 19:47 19:43 Telemetry/MedSurg (Inpatient) sd2 cg 19:47 19:43 sd2 cg 07/09 19:47 BR ER HOLD cg ja1 07/09 19:47 ERHOLD- cg ja1
--- NOTE | 2022-07-08 19:43 | ER ---
Nurse's Notes [facility] Name: Vikki Zamudio Age: 61 yrs Sex: Female : 1960 Arrival Date: 07/08/2022 Time: 12:57 Bed 15 Private MD: Diagnosis: Acute and chronic respiratory failure with hypercapnia Presentation: 07/08 12:54 Method Of Arrival: EMS: [facility] vg1 12:54 Coronavirus screen: Vaccine status: Patient reports being unvaccinated. Client denies vg1 travel out of the [place] in the last 14 days. Ebola Screen: Patient negative for fever greater than or equal to 101.5 degrees Fahrenheit, and additional compatible Ebola Virus Disease symptoms Patient denies exposure to infectious person. Initial Sepsis Screen: Does the patient meet any 2 criteria? RR > 20 per min. Yes Does the patient have a suspected source of infection? No. Patient's initial sepsis screen is negative. Risk Assessment: Do you want to hurt yourself or someone else? Patient reports no desire to harm self or others. Onset of symptoms was July 01, 2022. 12:54 Acuity: LIZETH 3 vg1 13:51 Chief complaint: Patient states: CP x 2 days, does not radiate with SOB. EMS states: vg1 cough and congestion x 1 week and sore throat with blood tinged sputum that was seen yesterday. KEI lung sounds diminished. Hx of COPD and CHF. Uses oxygen at home. Triage Assessment: 13:57 General: Appears uncomfortable, obese, Behavior is cooperative. Pain: Complains of pain vg1 in mid-sternal area Pain currently is 10 out of 10 on a pain scale. Pain began 2-3 days ago. Respiratory: Reports shortness of breath at rest cough that is productive, Airway is patent Respiratory effort is even, labored, Respiratory pattern is tachypnea Breath sounds are diminished bilaterally. Onset: The symptoms/episode began/occurred x 1 week, the patient has moderate shortness of breath. Historical: - Allergies: 13:57 No Known Allergies; vg1 - Home Meds: 13:57 Albuterol Inhl [Active]; atorvastatin 20 mg Oral tab 1 tab once daily [Active]; aspirin vg1 81 mg Oral TbEC 1 tab once daily [Active]; clonazepam 0.5 mg Oral tab 1 tab daily [Active]; levothyroxine 88 mcg tab 1 tab once daily [Active]; prednisone 20 mg Oral tab 1 tab 2 times per day [Active]; - PMHx: 13:56 CHF; COPD; GERD; High Cholesterol; Hypercarbia; Hypertension; Hypothyroidism; Panic vg1 Attacks; Sleep Apnea; - Immunization history:: Client reports having NOT received the Covid vaccine. - Social history:: Smoking status: Patient/guardian denies using tobacco, the patient reports quitting approximately 4 years ago. Screenin:30 Abuse screen: Denies threats or abuse. Denies injuries from another. Nutritional ko1 screening: No deficits noted. Tuberculosis screening: No symptoms or risk factors identified. Fall Risk. Assessment: 14:30 General: Appears in no apparent distress. comfortable, Behavior is calm, cooperative, ko1 appropriate for age. Pain: Denies pain. Neuro: No deficits noted. Cardiovascular: Rhythm is regular. Respiratory: Respiratory effort is pursed lip, using tripod position, Respiratory pattern is tachypnea. GI: No deficits noted. : No deficits noted. EENT: No deficits noted. Derm: No deficits noted. Musculoskeletal: No deficits noted. 19:45 General: Appears uncomfortable, obese, Behavior is cooperative, drowsy. General: upon aa9 arrival pt on 5 L NC, O2 \\T\\92, RT currently placing pt on BIPAP, pt states to feel nausea and reports chest pain 10/10. pt appears drowsy. . Pain: Complains of pain in chest Aggravated by increased activity, Noted to be. Neuro: Level of Consciousness is awake, obeys commands, Oriented to person, place, time, situation. Respiratory: Airway is patent Respiratory effort is pursed lip, using tripod position, Respiratory pattern is tachypnea. Derm: Skin with poor turgor Skin is dry, Skin is pale. 19:51 Respiratory: Patient placed on BiPAP: Inspiratory Pressure: 16 Expiratory (EPAP) aa9 Pressure: 7 FiO2%: 45 Respiratory Rate: 16. 20:22 General: Lab called to pull repeat troponin level . aa9 Vital Signs: 12:54 BP 116 / 58; Pulse 80; Resp 26; Temp 99.2(O); Pulse Ox 98% on 4 lpm NC; Weight 127.01 vg1 kg; Height 5 ft. 9 in. (175.26 cm); Pain 10/10; 14:30 BP 122 / 62; Pulse Ox 93% 3 lpm ; ko1 16:00 BP 116 / 62; Pulse 82; Pulse Ox 91% ; ko1 17:00 BP 118 / 64; ko1 18:00 BP 111 / 67; Pulse 78; Resp 22; Pulse Ox 89% ; ko1 19:49 BP 111 / 90; Pulse 80; Resp 20; Pulse Ox 92% on 5 lpm NC; Pain 10/10; aa9 21:30 BP 114 / 88; Pulse 76; Resp 16 A; Pulse Ox 95% on BiPAP; aa9 12:54 Body Mass Index 41.35 (127.01 kg, 175.26 cm) vg1 ED Course: 12:57 Patient arrived in ED. rg4 13:56 Triage completed. vg1 13:57 Arm band placed on. vg1 14:30 Patient has correct armband on for positive identification. Bed in low position. Call ko1 light in reach. Side rails up X 1. Client placed on continuous cardiac and pulse oximetry monitoring. NIBP monitoring applied. 14:40 Reena Little MD is Attending Physician. sd2 14:42 Almita Freed RN is Primary Nurse. ko1 15:38 Influenza Screen (a \\T\\ B) Sent. ko1 15:38 SARS-COV-2 RT PCR (Document "Date of Onset" if Symptomatic) Sent. ko1 16:26 XRAY Chest (1 view) In Process Unspecified. EDMS 16:50 Initial lab(s) drawn, by me, sent to lab. Inserted saline lock: 22 gauge in right jw7 antecubital area, using aseptic technique. Blood collected. 19:42 Sarwat Olvera is Hospitalizing Provider. sd2 20:12 Missed attempt(s): 20 gauge in left forearm. Bleeding controlled, band aid applied, aa9 catheter tip intact. 20:30 No provider procedures requiring assistance completed. Patient admitted, IV remains in aa9 place. 07/09 03:43 Notified Nurse Practitioner and/or Physician Senior Systems Architect of a critical lab result(s), bb potassium of 5.7 Viola John notified. Administered Medications: 07/08 16:28 Drug: Albuterol 5 mg Route: Inhalation; ko1 16:28 Drug: AtroVENT (ipratropium) Aerosol 0.5 mg Route: Inhalation; ko1 16:33 Drug: Zofran (Ondansetron) 4 mg Route: IVP; Site: right antecubital; ko1 16:34 Drug: SOLU-Medrol (methylPrednisoLONE) 125 mg Route: IVP; Site: right antecubital; ko1 16:34 Drug: morphine 4 mg Route: IVP; Infused Over: 4 mins; Site: right antecubital; ko1 18:39 Drug: Zofran (Ondansetron) 4 mg Route: IVP; Site: right antecubital; ko1 Medication: 19:49 VIS not applicable for this client. aa9 Outcome: 19:43 Decision to Hospitalize by Provider. sd2 19:45 Condition: stable aa9 19:45 Instructed on the need for admit. 19:45 Admitted to ER Hold. [facility] see [facility] for further documentation. aa9 07/09 10:45 Patient left the ED. ss Signatures: Dispatcher [employer] EDMS Joselyn Mcclendon RN RN bb Smirch, Shelby, RN RN ss Garcia, Rubi rg4 Mallory Damon RN RN vg1 Brandee Nixon7 Reena Little MD MD sd2 Darlin Graves RN RN aa9 Almita Freed, DULCE RN ko1 Corrections: (The following items were deleted from the chart) 07/08 13:59 13:56 Allergies: Codeine; vg1 vg1 13:59 13:56 Allergies: Morphine; vg1 vg1 18:40 16:00 BP 116 / 62; Pulse 82bpm; Pulse Ox 95%; ko1 ko1 18:40 18:00 BP 111 / 67; Pulse 78bpm; Resp 22bpm; Pulse Ox 95%; ko1 ko1
[2022-07-08] MEDS ORDERED: ONDANSETRON 4 MG/2 ML VIAL IV PRN (20:48)
--- NOTE | 2022-07-08 21:29 | P.HP ---
Certification for Inpatient Patient admitted to: Inpatient With expected LOS: >2 Midnights Patient will require the following post-hospital care: None Practitioner: I am a practitioner with admitting privileges, knowledge of patient current condition, hospital course, and medical plan of care. Services: Services provided to patient in accordance with Admission requirements found in Title 42 Section 412.3 of the Code of Federal Regulations Patient History Date of Service: 07/09/22 Primary Care Provider: Lee Reason for admission: COPD Exacerbation History of Present Illness: Patient is a 61-year-old female with history of hypertension, COPD on home O2, CHF, obesity, hypothyroidism, and VIVEK who presented to the ED with complaints of shortness of breath. She also complains of chest wall soreness from coughing and reports minimal blood-tinged sputum. She has been using her home inhalers and normal medications without relief. Her ABG showed a pH of 7.25 with PCO2 of 74.5. She was given breathing treatment, Solu-Medrol, and morphine in the ED. BiPAP therapy was also initiated. She supposed to be on BiPAP at home but has not been compliant. BNP 616. Chest x-ray showed moderate CHF. Other labs within normal limits. Patient is admitted for further treatment of the COPD exacerbation. Allergies codeine [Codeine] Adverse Reaction (Mild, Verified 02/15/21 08:47) itch Home medications list reviewed: Yes Home Medications: Atorvastatin Calcium [Lipitor*] 20 mg PO BEDTIME 10/23/20 Gabapentin 300 mg PO BID 10/23/20 Roflumilast [Daliresp*] 500 mcg PO DAILY 10/23/20 Umeclidinium Brm/Vilanterol Tr [Anoro Ellipta 62.5-25 Mcg INH] 1 puff IN DAILY 10/23/20 clonazePAM [Klonopin*] 0.5 mg PO DAILY PRN 10/23/20 Tramadol HCl [Ultram] 50 mg PO TID PRN 30 Days #60 tablet 11/21/20 Pantoprazole [Protonix Tab*] 40 mg PO DAILY 02/14/21 Ropinirole HCl [Requip*] 1 mg PO BEDTIME 02/14/21 Ascorbic Acid [Vitamin C*] 500 mg PO QID #120 tablet 04/18/21 Cetirizine HCl [Zyrtec*] 10 mg PO DAILY PRN #30 tablet 04/18/21 Cholecalciferol (Vitamin D3) [Vitamin D 5,000 IU Cap*] 5,000 unit PO DAILY #30 cap 04/18/21 Thiamine HCl [Vitamin B-1*] 200 mg PO DAILY #60 tablet 04/18/21 Zinc Sulfate [Zinc Sulfate*] 220 mg PO DAILY #30 cap 04/18/21 acetaZOLAMIDE [Diamox*] 250 mg PO BID #60 tab 04/18/21 Albuterol Sulfate [Albuterol Sulfate Hfa] 8.5 gm IH TID #1 hfa.aer.ad 04/24/21 Benzonatate [Tessalon Perle*] 100 mg PO TID PRN #30 cap 05/16/21 Fluconazole 200 mg PO DAILY #7 tablet 05/16/21 Fluticasone [Flonase 50MCG Nasal [place]*] 1 sprays MINERVA BID #1 btl 05/16/21 Iron Polysaccharide Complex [Polysaccharide Iron] 150 mg PO DAILY #30 capsule 05/16/21 Lidocaine Viscous 2% Soln [Xylocaine Viscous Oral 2%*] 15 ml PO TID PRN #30 udc 05/16/21 predniSONE [Deltasone] 20 mg PO DAILY #7 tab 08/10/21 - Past Medical/Surgical History Diabetic: No -: Severe COPD, oxygen/steroid dependent,Pulmonary-Dr. Do -: Mild pulmonary hypertension -: Hypothyroidism -: Bipolar disorder -: Hypertension -: Chronic low back pain -: Obstructive sleep apnea -: GERD -: HLD -: Appendectomy -: Psychosocial/ Personal History: She lives with a partner. She has 1 child. She is currently disabled. - Family History Father -: Heart disease, Hypertension, Diabetes Notes: from CHF Mother -: Heart disease, Hypertension, Diabetes Notes: from CHF Brother -: Diabetes Sister -: Heart disease, Diabetes Notes: from CHF - Social History Smoking Status: Former smoker Alcohol use: No CD- Drugs: No Caffeine use: Yes Place of Residence: Home Review of Systems Respiratory: Cough, Shortness of Breath, Hemoptysis, Pleuritic Pain Physical Examination - Physical Exam General: Alert, In no apparent distress, Obese HEENT: Atraumatic, PERRLA, EOMI, Sclerae nonicteric Neck: Supple, 2+ carotid pulse no bruit, No LAD, Without JVD or thyroid abnormality Respiratory: Clear to auscultation bilaterally, Normal air movement Cardiovascular: Regular rate/rhythm, Normal S1 S2 Gastrointestinal: Normal bowel sounds, No tenderness Musculoskeletal: No tenderness Integumentary: No rashes Neurological: Normal speech, Normal strength at 5/5 x4 extr, Normal tone, Normal affect - Studies Laboratory Data (last 24 hrs) 07/08/22 16:24: Sodium 140, Potassium 4.3, BUN 9, Creatinine 0.91, Glucose 114 H, Magnesium 2.2, Total Bilirubin 0.5, AST 9 L, ALT 16, Alkaline Phosphatase 111 07/08/22 16:24: WBC 8.80, Hgb 12.1, Hct 38.5, Plt Count 190 Microbiology Data (last 24 hrs): 07/08/22 15:20 Nasopharnyx Influenza Type A Antigen Screen - Final 07/08/22 15:20 Nasopharnyx Influenza Type B Antigen Screen - Final Assessment and Plan - Problems (Diagnosis) (1) Acute on chronic respiratory failure with hypoxia and hypercapnia Current Visit: Yes Status: Acute (2) COPD exacerbation Current Visit: Yes Status: Acute (3) Hypertension Current Visit: Yes Status: Chronic Qualifiers: Hypertension type: primary hypertension Qualified Code(s): I10 - Essential (primary) hypertension (4) Hypothyroidism Current Visit: Yes Status: Chronic Qualifiers: Hypothyroidism type: acquired Qualified Code(s): E03.9 - Hypothyroidism, unspecified (5) Obesity Current Visit: Yes Status: Chronic Qualifiers: Obesity type: due to excess calories Obesity classification: adult class 3 (BMI >= 40) Serious obesity comorbidity presence: with serious comorbidity Body mass index: BMI 40.0-44.9 Qualified Code(s): E66.01 - Morbid (severe) obesity due to excess calories; Z68.41 - Body mass index [BMI] 40.0-44.9, adult (6) Obstructive sleep apnea Current Visit: Yes Status: Chronic (7) CHF (congestive heart failure) Current Visit: Yes Status: Chronic Qualifiers: Heart failure type: diastolic Heart failure chronicity: chronic Qualified Code(s): I50.32 - Chronic diastolic (congestive) heart failure - Plan -Continue bipap. Wean as tolerated. Patient on 3L NC at home. -Monitor pulse ox and telemetry -Scheduled nebs and steroids -Pulmonology consult -Will hold off on antibiotic therapy at this time -Monitor and replete electrolytes per protocol -Reconcile and continue home medications -Lovenox for VTE ppx -Full code Discharge Plan: Home Plan to discharge in: Greater than 2 days - Advance Directives Does patient have a Living Will: Yes Does patient have a Durable POA for Healthcare: Yes - Code Status/Comfort Care Code Status Assessed: Yes (Full) Critical Care: No Time Spent Managing Pts Care (In Minutes): 50
[2022-07-08 21:53] LABS: Arterial Blood Carboxyhemoglob 1.4 % (0-1.5); Blood Gas Oxyhemoglobin 94.3 % (94-97); Blood O2 Saturation 96.5 % (92-98.5)
[2022-07-08] MEDS ORDERED: MORPHINE 4 MG/ML SYR IV ONE (22:19)
[2022-07-09] MEDS: METHYLPREDNISOLONE 125 MG INJ IV SCH ×2 (00:15→06:00)
[2022-07-09] MEDS ORDERED: METHYLPREDNISOLONE 125 MG INJ ONE ×2 (00:30→05:54)
[2022-07-09 00:33] VITALS: BMI 41.3
[2022-07-09] MEDS ORDERED: ALBUTEROL 2.5 MG/3 ML NEB SOL ONE ×2 (01:38→07:22)
[2022-07-09] MEDS ORDERED: IPRATROPIUM BROM 0.5MG/2.5ML ONE ×2 (01:39→07:22)
[2022-07-09] MEDS: IPRATROPIUM BROM 0.5MG/2.5ML NEB SCH ×4 (02:00→20:30)
[2022-07-09] MEDS: ALBUTEROL 2.5 MG/3 ML NEB SOL NEB SCH ×4 (02:00→20:30)
[2022-07-09 02:59] LABS: Absolute Lymphocytes (CBC) 0.4 K/uL (0.7-4.9); Hematocrit 39.3 % (36.0-45.0); Lymphocytes % 4.2 % (15.3-44.8); MCV 89.4 fL (80-100); MPV 7.2 fL (7.6-11.3)
[2022-07-09 03:41] LABS: Magnesium 2.4 mg/dL (1.8-2.4); Thyroid Stimulating Hormone 1.1 uIU/mL (0.360-3.740)
[2022-07-09 03:44] LABS: Potassium 5.7 mmol/L (3.5-5.1)
[2022-07-09] MEDS ORDERED: D50W 25 GM/50 ML SYRINGE IV PRN (05:49)
[2022-07-09] MEDS ORDERED: CALCIUM GLUC 10% INJ 4.65 MEQ in NA CHLORIDE 0.9% 100 ML IV ONE (05:49)
[2022-07-09] MEDS ORDERED: GLUCAGON 1 MG/VIAL IM PRN (05:49)
[2022-07-09] MEDS ORDERED: D10W 250 ML IV ONE ×2 (05:50→06:25)
[2022-07-09] MEDS: INSULIN -REGULAR HUMAN 50 UNIT/0.5 ML ML IV ONE ×2 (05:50)
[2022-07-09] MEDS ORDERED: SOD POLYSTYREN SUL 15 GM/60 ML UCUP PO ONE (05:51)
[2022-07-09] MEDS ORDERED: D10W 125 ML IV PRN (05:59)
[2022-07-09] MEDS ORDERED: CALCIUM GLUCONATE 1 GM IVPB 1 GM/50 ML BAG IV ONE ×2 (06:00→06:30)
[2022-07-09] MEDS ORDERED: SOD POLYSTYREN SUL 15 GM/60 ML UCUP ONE ×2 (06:32→06:54)
[2022-07-09] MEDS ORDERED: INSULIN -REGULAR HUMAN 50 UNIT/0.5 ML ML ONE (07:30)
[2022-07-09] MEDS ORDERED: INFLUENZA VACCINE (for 6+ mo) 0.5 ML DOSE IMVAC ONE ×2 (08:00→09:19)
[2022-07-09 08:42] LABS: Arterial Blood Carboxyhemoglob 1.6 % (0-1.5); Blood Gas Oxyhemoglobin 85.9 % (94-97); Blood O2 Saturation 88.4 % (92-98.5)
[2022-07-09] MEDS: ENOXAPARIN 40 MG/0.4 ML SQ SCH (09:00)
[2022-07-09] MEDS ORDERED: ENOXAPARIN 40 MG/0.4 ML SQ ONE (09:18)
[2022-07-09 11:17] LABS: Potassium 5.4 mmol/L (3.5-5.1)
[2022-07-09] MEDS ORDERED: clonazePAM 0.5 MG TAB PO PRN (12:01)
--- NOTE | 2022-07-09 12:05 | P.CNS ---
Date of Consult: 07/16/22 Reason for Consult: Respiratory failure acute on chronic Primary Care Provider: Lee Chief Complaint: COPD Exacerbation History of Present Illness: Patient is 61 years of age well-known to me history of terminal COPD suddenly became sick started having worsening shortness of breath and hemoptysis patient has a BiPAP at home is noncompliant so has some hemoptysis was doing well has not been hospitalized for quite some time compliant with her medication Allergies codeine [Codeine] Adverse Reaction (Mild, Verified 02/15/21 08:47) itch Home Medications: Atorvastatin Calcium [Lipitor*] 20 mg PO BEDTIME 10/23/20 Gabapentin 300 mg PO BID 10/23/20 Roflumilast [Daliresp*] 500 mcg PO DAILY 10/23/20 Umeclidinium Brm/Vilanterol Tr [Anoro Ellipta 62.5-25 Mcg INH] 1 puff IN DAILY 10/23/20 clonazePAM [Klonopin*] 0.5 mg PO DAILY PRN 10/23/20 Tramadol HCl [Ultram] 50 mg PO TID PRN 30 Days #60 tablet 11/21/20 Pantoprazole [Protonix Tab*] 40 mg PO DAILY 02/14/21 Ropinirole HCl [Requip*] 1 mg PO BEDTIME 02/14/21 Ascorbic Acid [Vitamin C*] 500 mg PO QID #120 tablet 04/18/21 Cetirizine HCl [Zyrtec*] 10 mg PO DAILY PRN #30 tablet 04/18/21 Cholecalciferol (Vitamin D3) [Vitamin D 5,000 IU Cap*] 5,000 unit PO DAILY #30 cap 04/18/21 Thiamine HCl [Vitamin B-1*] 200 mg PO DAILY #60 tablet 04/18/21 Zinc Sulfate [Zinc Sulfate*] 220 mg PO DAILY #30 cap 04/18/21 acetaZOLAMIDE [Diamox*] 250 mg PO BID #60 tab 04/18/21 Albuterol Sulfate [Albuterol Sulfate Hfa] 8.5 gm IH TID #1 hfa.aer.ad 04/24/21 Benzonatate [Tessalon Perle*] 100 mg PO TID PRN #30 cap 05/16/21 Fluconazole 200 mg PO DAILY #7 tablet 05/16/21 Fluticasone [Flonase 50MCG Nasal [place]*] 1 sprays MINERVA BID #1 btl 05/16/21 Iron Polysaccharide Complex [Polysaccharide Iron] 150 mg PO DAILY #30 capsule 05/16/21 Lidocaine Viscous 2% Soln [Xylocaine Viscous Oral 2%*] 15 ml PO TID PRN #30 udc 05/16/21 predniSONE [Deltasone] 20 mg PO DAILY #7 tab 08/10/21 - Past Medical/Surgical History Diabetic: No -: Severe COPD, oxygen/steroid dependent,Pulmonary-Dr. Do -: Mild pulmonary hypertension -: Hypothyroidism -: Bipolar disorder -: Hypertension -: Chronic low back pain -: Obstructive sleep apnea -: GERD -: HLD -: GERD -: Appendectomy -: Psychosocial/ Personal History: She lives with a partner. She has 1 child. She is currently disabled. - Family History Father Medical History: Heart disease, Hypertension, Diabetes Notes: from CHF Mother Medical History: Heart disease, Hypertension, Diabetes Notes: from CHF Brother Medical History: Diabetes Sister Medical History: Heart disease, Diabetes Notes: from CHF - Social History Smoking Status: Unknown if ever smoked Alcohol use: No CD- Drugs: No Caffeine use: Yes Place of Residence: Home Review of Systems 10-point ROS is otherwise unremarkable General: Weakness Respiratory: Cough, Shortness of Breath, Hemoptysis Physical Examination Temp Pulse Resp BP Pulse Ox 97 F 77 25 H 125/71 89 L 07/09/22 08:00 07/09/22 08:00 07/09/22 08:00 07/09/22 08:00 07/09/22 08:00 General: Alert, Oriented x3, Mild distress Respiratory: Diminished, Expiratory wheezes Cardiovascular: No edema, Regular rate/rhythm, Normal S1 S2 Gastrointestinal: Normal bowel sounds, Soft and benign Musculoskeletal: No clubbing, No swelling, No contractures Neurological: Normal speech, Normal strength at 5/5 x4 extr Laboratory Data (last 24 hrs) 07/08/22 16:24: Sodium 140, Potassium 4.3, BUN 9, Creatinine 0.91, Glucose 114 H, Magnesium 2.2, Total Bilirubin 0.5, AST 9 L, ALT 16, Alkaline Phosphatase 111 07/08/22 16:24: WBC 8.80, Hgb 12.1, Hct 38.5, Plt Count 190 - Problems (1) Acute on chronic respiratory failure with hypoxia and hypercapnia Current Visit: Yes Status: Acute Plan: Patient is 61 years of age admitted with acute on chronic respiratory failure history of terminal COPD has done well for the past year use dose of Solu-Medrol to 40 mg IV every 8 add p.o. levofloxacin chest x-ray shows some interstitial change continue with BiPAP titrate sat to 90% add Diamox she was noncompliant with her noninvasive ventilator at home despite being acidotic looks well alert oriented responsive cooperative patient developed renal failure with mild hyperkalemia
--- NOTE | 2022-07-09 13:16 | P.PN ---
Subjective Date of Service: 07/09/22 Primary Care Provider: Lee Chief Complaint: COPD Exacerbation Patient noted to be somnolent on the BiPAP. Can we give any subjective complaint. Noted the BiPAP mask was not fitting her face well. Repeat arterial blood gas showed worsening respiratory acidosis. Physical Examination - Vital Signs Temperature: 97.7 F Blood Pressure: 118/65 Pulse: 89 Respirations: 20 Pulse Ox (%): 89 - Studies Laboratory Data (last 24 hrs) 07/08/22 16:24: Sodium 140, Potassium 4.3, BUN 9, Creatinine 0.91, Glucose 114 H, Magnesium 2.2, Total Bilirubin 0.5, AST 9 L, ALT 16, Alkaline Phosphatase 111 07/08/22 16:24: WBC 8.80, Hgb 12.1, Hct 38.5, Plt Count 190 Microbiology Data (last 24 hrs): 07/08/22 15:20 Nasopharnyx Influenza Type A Antigen Screen - Final 07/08/22 15:20 Nasopharnyx Influenza Type B Antigen Screen - Final Assessment And Plan - Current Problems (Diagnosis) (1) Acute on chronic respiratory failure with hypoxia and hypercapnia Current Visit: Yes Status: Acute (2) COPD exacerbation Current Visit: Yes Status: Acute (3) Hypertension Current Visit: Yes Status: Chronic Qualifiers: Hypertension type: primary hypertension Qualified Code(s): I10 - Essential (primary) hypertension (4) Hypothyroidism Current Visit: Yes Status: Chronic Qualifiers: Hypothyroidism type: acquired Qualified Code(s): E03.9 - Hypothyroidism, unspecified (5) Obstructive sleep apnea Current Visit: Yes Status: Chronic (6) Acute renal failure Current Visit: Yes Status: Acute (7) Metabolic encephalopathy Current Visit: No Status: Acute (8) Obesity hypoventilation syndrome Current Visit: No Status: Acute - Plan Physical Exam General: Somnolent, obese HEENT: On BiPAP Respiratory: Markedly diminished breath sounds bilaterally, no crackles. Cardiovascular: Regular rate/rhythm, Normal S1 S2 Gastrointestinal: Normal bowel sounds, No tenderness Musculoskeletal: No tenderness Integumentary: No rashes Neurological: Somnolent, no focal motor deficit. Plan: BiPAP mask replaced and fitting well. Tidal volume significantly improved and anticipating improvement in CO2 retention, respiratory acidosis and mental status going forward. Continue treatment for COPD exacerbation with IV steroid, scheduled bronchodilators. Continue antibiotic. Status post Kayexalate for hyperkalemia. Hyperkalemia likely secondary to respiratory acidosis. Potassium level improved. Continue to monitor. Pulmonary consulted to assist with management.
--- NOTE | 2022-07-09 14:04 | EKG ---
Test Date: 2022-07-08 Test Time: 14:45:48 Mixing Machine Attendant: CHIQUITA MEASUREMENT RESULTS: Intervals: Rate: 79 KS: 174 QRSD: 82 QT: 378 QTc: 433 Deloit: P: 48 KS: 174 QRS: 78 T: 62 INTERPRETIVE STATEMENTS: Sinus rhythm with marked sinus arrhythmia Septal infarct, age undetermined Abnormal ECG Compared to ECG 08/08/2021 15:43:20 Myocardial infarct finding now present Atrial premature complex(es) no longer present Electronically Signed On 07-09-22 14:01:37 CDT by Maykel Posey
[2022-07-09 14:36] LABS: Specific Gravity 1.019 (1.005-1.030); Urine Bacteria <20 /HPF (<20); Urine Bilirubin NEGATIVE (Negative); Urine Blood Negative (Negative); Urine Clarity Turbid (Clear); Urine Color Yellow (Yellow); Urine Glucose NEGATIVE (Negative); Urine Mucus Slight /HPF (None Seen); Urine Protein 2+ (Negative); Urine RBC <5 /HPF (None Seen); Urine Urobilinogen Normal (Normal); Urine pH 5.5 (5.0-7.0)
[2022-07-09] MEDS: METHYLPREDNISOLONE 40 MG INJ IV SCH (16:25)
[2022-07-09 16:58] LABS: Arterial Blood Carboxyhemoglob 1.6 % (0-1.5); Blood Gas Oxyhemoglobin 88.5 % (94-97); Blood O2 Saturation 91.1 % (92-98.5)
[2022-07-09] MEDS: ACETAMINOPHEN 500 MG TAB PO PRN (20:09)
[2022-07-09] MEDS: acetaZOLAMIDE 250 MG TAB PO SCH (20:10)
[2022-07-09] MEDS: MORPHINE 4 MG/ML SYR IV PRN (21:57)
[2022-07-09 22:25] LABS: Arterial Blood Carboxyhemoglob 1.6 % (0-1.5); Blood Gas Oxyhemoglobin 95.4 % (94-97); Blood O2 Saturation 98.1 % (92-98.5)
[2022-07-10] MEDS: METHYLPREDNISOLONE 40 MG INJ IV SCH ×2 (00:58→09:28)
[2022-07-10] MEDS: IPRATROPIUM BROM 0.5MG/2.5ML NEB SCH ×4 (01:25→20:50)
[2022-07-10] MEDS: ALBUTEROL 2.5 MG/3 ML NEB SOL NEB SCH ×4 (01:25→20:50)
[2022-07-10 03:24] LABS: Absolute Lymphocytes (CBC) 0.5 K/uL (0.7-4.9); Hematocrit 33.1 % (36.0-45.0); Lymphocytes % 8.4 % (15.3-44.8); MCV 88.4 fL (80-100); MPV 7.7 fL (7.6-11.3); RBC Red Blood Cell Count 3.74 M/uL (3.86-4.86)
[2022-07-10 03:56] LABS: Potassium 4.9 mmol/L (3.5-5.1)
[2022-07-10 06:25] LABS: Magnesium 2.4 mg/dL (1.8-2.4)
[2022-07-10] MEDS: levoFLOXacin 750 MG TAB PO SCH (09:27)
[2022-07-10] MEDS: ENOXAPARIN 40 MG/0.4 ML SQ SCH (09:28)
[2022-07-10] MEDS: acetaZOLAMIDE 250 MG TAB PO SCH ×2 (09:28→20:42)
--- NOTE | 2022-07-10 11:52 | P.PN ---
Subjective Date of Service: 07/10/22 Primary Care Provider: Lee Chief Complaint: Respiratory failure Patient's condition is stable still requiring BiPAP is hypercapnic morning was sleepy unresponsive Review of Systems is unable to be obtained Physical Examination - Vital Signs Temperature: 97.0 F Blood Pressure: 107/53 Pulse: 61 Respirations: 17 Pulse Ox (%): 98 - Physical Exam General: Unresponsive Respiratory: Clear to auscultation bilaterally, Diminished Cardiovascular: No edema, Regular rate/rhythm, Normal S1 S2 Assessment And Plan - Current Problems (Diagnosis) (1) Acute on chronic respiratory failure with hypoxia and hypercapnia Current Visit: Yes Status: Acute Plan: History of terminal COPD admitted with hypoxic hypercapnic respiratory failure has been a year since she came to the hospital blood gases reviewed labs reviewed renal function is now normal hyperkalemia resolved requested again for a noninvasive ventilator resume [facility]
--- NOTE | 2022-07-10 13:00 | P.PN ---
Subjective Date of Service: 07/10/22 Primary Care Provider: Lee Chief Complaint: Respiratory failure Patient more awake today and now alternating between BiPAP and oxygen by nasal cannula. Physical Examination - Vital Signs Temperature: 97.0 F Blood Pressure: 107/53 Pulse: 61 Respirations: 17 Pulse Ox (%): 98 Assessment And Plan - Current Problems (Diagnosis) (1) Acute on chronic respiratory failure with hypoxia and hypercapnia Current Visit: Yes Status: Acute (2) COPD exacerbation Current Visit: Yes Status: Acute (3) Hypertension Current Visit: Yes Status: Chronic Qualifiers: Hypertension type: primary hypertension Qualified Code(s): I10 - Essential (primary) hypertension (4) Hypothyroidism Current Visit: Yes Status: Chronic Qualifiers: Hypothyroidism type: acquired Qualified Code(s): E03.9 - Hypothyroidism, unspecified (5) Obstructive sleep apnea Current Visit: Yes Status: Chronic (6) Acute renal failure Current Visit: Yes Status: Acute (7) Metabolic encephalopathy Current Visit: No Status: Acute (8) Obesity hypoventilation syndrome Current Visit: No Status: Acute - Plan Physical Exam General: Awake Respiratory: Markedly diminished breath sounds bilaterally, no crackles. Cardiovascular: Regular rate/rhythm, Normal S1 S2 Gastrointestinal: Normal bowel sounds, No tenderness Musculoskeletal: No tenderness Integumentary: No rashes Neurological: Somnolent, no focal motor deficit. Plan: Continue BiPAP therapy oxygen by nasal cannula. Neuro checks, serial ABG. Continue treatment for COPD exacerbation with IV steroid, scheduled bronchodilators. According to report patient was noncompliant with her NIV at home. Continue antibiotic. Status post Kayexalate for hyperkalemia. Hyperkalemia likely secondary to respiratory acidosis-resolved. Pulmonary input appreciated. Patient reports faulty NIV. Social service is arranging for her home NIV to be checked.
[2022-07-10] MEDS: ACETAMINOPHEN 500 MG TAB PO PRN (17:08)
[2022-07-10] MEDS: predniSONE 20 MG TAB PO SCH (20:42)
[2022-07-10] MEDS: MORPHINE 4 MG/ML SYR IV PRN (20:48)
[2022-07-11] MEDS: ALBUTEROL 2.5 MG/3 ML NEB SOL NEB SCH ×4 (02:20→19:10)
[2022-07-11] MEDS: IPRATROPIUM BROM 0.5MG/2.5ML NEB SCH ×4 (02:20→19:10)
[2022-07-11 06:16] LABS: Absolute Lymphocytes (CBC) 0.7 K/uL (0.7-4.9); Hematocrit 35.4 % (36.0-45.0); Lymphocytes % 12.2 % (15.3-44.8); MCV 88.2 fL (80-100); MPV 7.4 fL (7.6-11.3); RBC Red Blood Cell Count 4.01 M/uL (3.86-4.86)
[2022-07-11 06:32] LABS: Potassium 4.3 mmol/L (3.5-5.1)
[2022-07-11] MEDS: ENOXAPARIN 40 MG/0.4 ML SQ SCH (08:08)
[2022-07-11] MEDS: acetaZOLAMIDE 250 MG TAB PO SCH ×2 (08:08→20:22)
[2022-07-11] MEDS: predniSONE 20 MG TAB PO SCH ×2 (08:09→20:22)
[2022-07-11] MEDS: levoFLOXacin 750 MG TAB PO SCH (08:09)
[2022-07-11] MEDS: ROFLUMILAST 500 MCG TABLET PO SCH (08:13)
[2022-07-11] MEDS: ACETAMINOPHEN 500 MG TAB PO PRN (08:20)
[2022-07-11] MEDS: MORPHINE 4 MG/ML SYR IV PRN (10:54)
--- NOTE | 2022-07-11 12:34 | P.PN ---
Subjective Date of Service: 07/11/22 Primary Care Provider: Lee Chief Complaint: Respiratory failure Patient is feeling better complaining of a sore throat Review of Systems General: Weakness Respiratory: Cough, Shortness of Breath Physical Examination - Vital Signs Temperature: 97.7 F Blood Pressure: 163/71 Pulse: 72 Respirations: 20 Pulse Ox (%): 93 - Physical Exam General: Alert, Moderate distress Respiratory: Clear to auscultation bilaterally, Diminished Cardiovascular: No edema Assessment And Plan - Current Problems (Diagnosis) (1) Acute on chronic respiratory failure with hypoxia and hypercapnia Current Visit: Yes Status: Acute Plan: Acute on chronic respiratory failure noninvasive ventilator ordered complaining of sore throat benzocaine lozenges ordered feeling better possible discharge tomorrow continue with prednisone 10 twice a day for a week then 10 once a day patient takes scheduled clonazepam daily labs reviewed bicarbonate mildly elevated
[2022-07-11] MEDS: clonazePAM 0.5 MG TAB PO SCH (13:00)
--- NOTE | 2022-07-11 13:15 | P.PN ---
Subjective Date of Service: 07/11/22 Primary Care Provider: Lee Chief Complaint: Respiratory failure Patient states she feels better today. She is awake and communicating meaningfully. Seen on BiPAP this morning. She tolerated oxygen by nasal cannula periodically yesterday. Physical Examination - Vital Signs Temperature: 97.7 F Blood Pressure: 163/71 Pulse: 72 Respirations: 20 Pulse Ox (%): 93 Assessment And Plan - Current Problems (Diagnosis) (1) Acute on chronic respiratory failure with hypoxia and hypercapnia Current Visit: Yes Status: Acute (2) COPD exacerbation Current Visit: Yes Status: Acute (3) Hypertension Current Visit: Yes Status: Chronic Qualifiers: Hypertension type: primary hypertension Qualified Code(s): I10 - Essential (primary) hypertension (4) Hypothyroidism Current Visit: Yes Status: Chronic Qualifiers: Hypothyroidism type: acquired Qualified Code(s): E03.9 - Hypothyroidism, unspecified (5) Obstructive sleep apnea Current Visit: Yes Status: Chronic (6) Acute renal failure Current Visit: Yes Status: Acute (7) Metabolic encephalopathy Current Visit: No Status: Acute (8) Obesity hypoventilation syndrome Current Visit: No Status: Acute - Plan Physical Exam General: Awake, NAD Respiratory: Markedly diminished breath sounds bilaterally, no crackles. Cardiovascular: Regular rate/rhythm, Normal S1 S2 Gastrointestinal: Normal bowel sounds, No tenderness Musculoskeletal: No tenderness Integumentary: No rashes Neurological: Somnolent, no focal motor deficit. Plan: Clinically improved Continue BiPAP therapy and oxygen by nasal cannula. Serial ABG. Continue treatment for COPD exacerbation with IV steroid, scheduled bronchodilators. According to report patient was noncompliant with her NIV at home. Continue antibiotic. Hyperkalemia corrected. Patient reports faulty NIV. Social service is arranging for her home NIV to be checked. Seen by pulmonary who is assisting with a replacement for her NIV.
[2022-07-11] MEDS ORDERED: HYDROCODONE/APAP 10/325 TAB PO ONE (20:52)
[2022-07-12] MEDS ORDERED: MORPHINE 4 MG/ML SYR IV ONE ×2 (00:39→23:38)
[2022-07-12] MEDS: IPRATROPIUM BROM 0.5MG/2.5ML NEB SCH ×4 (01:20→19:05)
[2022-07-12] MEDS: ALBUTEROL 2.5 MG/3 ML NEB SOL NEB SCH ×4 (01:20→19:05)
[2022-07-12 05:14] LABS: Potassium 4.4 mmol/L (3.5-5.1)
[2022-07-12] MEDS: predniSONE 20 MG TAB PO SCH ×2 (08:06→20:45)
[2022-07-12] MEDS: acetaZOLAMIDE 250 MG TAB PO SCH ×2 (08:06→20:45)
[2022-07-12] MEDS: ROFLUMILAST 500 MCG TABLET PO SCH (08:06)
[2022-07-12] MEDS: levoFLOXacin 750 MG TAB PO SCH (08:06)
[2022-07-12] MEDS: ENOXAPARIN 40 MG/0.4 ML SQ SCH (08:06)
[2022-07-12] MEDS: clonazePAM 0.5 MG TAB PO SCH (08:07)
[2022-07-12] MEDS: ACETAMINOPHEN 500 MG TAB PO PRN (11:28)
[2022-07-12] MEDS: CHLORASEPTIC LOZENGES PO PRN (11:30)
--- NOTE | 2022-07-12 15:54 | P.PN ---
Subjective Date of Service: 07/12/22 Primary Care Provider: Lee Chief Complaint: Respiratory failure Patient reports sore throat otherwise feeling much better She is awake and alert. She has been tolerating oxygen by nasal cannula. Physical Examination - Vital Signs Temperature: 98.1 F Blood Pressure: 155/65 Pulse: 70 Respirations: 18 Pulse Ox (%): 94 Assessment And Plan - Current Problems (Diagnosis) (1) Acute on chronic respiratory failure with hypoxia and hypercapnia Current Visit: Yes Status: Acute (2) COPD exacerbation Current Visit: Yes Status: Acute (3) Hypertension Current Visit: Yes Status: Chronic Qualifiers: Hypertension type: primary hypertension Qualified Code(s): I10 - Essential (primary) hypertension (4) Hypothyroidism Current Visit: Yes Status: Chronic Qualifiers: Hypothyroidism type: acquired Qualified Code(s): E03.9 - Hypothyroidism, unspecified (5) Obstructive sleep apnea Current Visit: Yes Status: Chronic (6) Acute renal failure Current Visit: Yes Status: Acute (7) Metabolic encephalopathy Current Visit: No Status: Acute (8) Obesity hypoventilation syndrome Current Visit: No Status: Acute - Plan Physical Exam General: Awake, NAD Respiratory: Markedly diminished breath sounds bilaterally, no crackles. Cardiovascular: Regular rate/rhythm, Normal S1 S2 Gastrointestinal: Normal bowel sounds, No tenderness Musculoskeletal: No tenderness Integumentary: No rashes Neurological: Somnolent, no focal motor deficit. Plan: Clinically improved. Continue BiPAP therapy during sleep and oxygen by nasal cannula during the day. Continue treatment for COPD exacerbation with steroid, scheduled bronchodilators. According to report patient was noncompliant with her NIV at home. Continue oral Levaquin Hyperkalemia corrected. Patient reports faulty NIV. Social service is arranging for her home NIV to be checked. Pulmonary-Dr. Do who is assisting with a replacement for her NIV.
[2022-07-13] MEDS: ALBUTEROL 2.5 MG/3 ML NEB SOL NEB SCH ×5 (01:10→20:00)
[2022-07-13] MEDS: IPRATROPIUM BROM 0.5MG/2.5ML NEB SCH ×5 (01:10→20:00)
[2022-07-13] MEDS: CHLORASEPTIC LOZENGES PO PRN ×2 (05:33→11:57)
[2022-07-13] MEDS: predniSONE 20 MG TAB PO SCH ×2 (08:22→20:18)
[2022-07-13] MEDS: ROFLUMILAST 500 MCG TABLET PO SCH (08:22)
[2022-07-13] MEDS: clonazePAM 0.5 MG TAB PO SCH (08:22)
[2022-07-13] MEDS: ENOXAPARIN 40 MG/0.4 ML SQ SCH (08:22)
[2022-07-13] MEDS: acetaZOLAMIDE 250 MG TAB PO SCH ×2 (08:22→20:18)
[2022-07-13] MEDS: levoFLOXacin 750 MG TAB PO SCH (08:22)
--- NOTE | 2022-07-13 10:54 | P.PN ---
Subjective Date of Service: 07/13/22 Primary Care Provider: Lee Chief Complaint: Respiratory failure Patient is improving has been complaining of sore throat for the past 6-month slightly better says that she was coughing up some blood Review of Systems General: Weakness Respiratory: Cough, Shortness of Breath Physical Examination - Vital Signs Temperature: 97.3 F Blood Pressure: 122/64 Pulse: 57 Respirations: 17 Pulse Ox (%): 96 - Physical Exam General: Alert, In no apparent distress, Oriented x3 Respiratory: Clear to auscultation bilaterally, Diminished Cardiovascular: No edema, Normal S1 S2 Assessment And Plan - Current Problems (Diagnosis) (1) Acute on chronic respiratory failure with hypoxia and hypercapnia Current Visit: Yes Status: Acute Plan: Currently stable awaiting for NIV (2) Sore throat Current Visit: Yes Status: Acute Plan: Patient sore throat is better has been complaining of it for the past 6 months. May have a fungal infection will add some Diflucan patient is on levofloxacin will need ENT evaluation as an outpatient
[2022-07-13] MEDS: FLUCONAZOLE 100 MG TAB PO SCH (11:56)
--- NOTE | 2022-07-13 14:19 | P.PN ---
Subjective Date of Service: 07/13/22 Primary Care Provider: Lee Chief Complaint: Respiratory failure Patient lanes of burning sensation in her throat and retrosternal. She attributes the burning sensation to the dry blown by the BiPAP. She is awake and alert. Physical Examination - Vital Signs Temperature: 97.6 F Blood Pressure: 136/57 Pulse: 75 Respirations: 18 Pulse Ox (%): 95 Assessment And Plan - Current Problems (Diagnosis) (1) Acute on chronic respiratory failure with hypoxia and hypercapnia Current Visit: Yes Status: Acute (2) COPD exacerbation Current Visit: Yes Status: Acute (3) Hypertension Current Visit: Yes Status: Chronic Qualifiers: Hypertension type: primary hypertension Qualified Code(s): I10 - Essential (primary) hypertension (4) Hypothyroidism Current Visit: Yes Status: Chronic Qualifiers: Hypothyroidism type: acquired Qualified Code(s): E03.9 - Hypothyroidism, u nspecified (5) Obstructive sleep apnea Current Visit: Yes Status: Chronic (6) Acute renal failure Current Visit: Yes Status: Acute (7) Metabolic encephalopathy Current Visit: No Status: Acute (8) Obesity hypoventilation syndrome Current Visit: No Status: Acute - Plan Physical Exam General: Awake, NAD Respiratory: Markedly diminished breath sounds bilaterally, no crackles. Cardiovascular: Regular rate/rhythm, Normal S1 S2 Gastrointestinal: Normal bowel sounds, No tenderness Musculoskeletal: No tenderness Integumentary: No rashes Neurological: no focal motor deficit. Plan: Clinically improved. Awake and alert. Continue BiPAP therapy during sleep and oxygen by nasal cannula during the day. Continue treatment for COPD exacerbation with steroid, scheduled bronchodilators. Continue oral Levaquin Hyperkalemia corrected. Patient reports faulty NIV. Social service is arranging for her home NIV to be checked and replaced. Pulmonary-Dr. Do who is assisting with a replacement for her NIV. Patient will need moisturized with her BIPAP. Cepacol prn.
[2022-07-13] MEDS: ACETAMINOPHEN 500 MG TAB PO PRN (15:13)
[2022-07-13] MEDS: HYDROCODONE/APAP 5/325 MG TAB PO PRN (16:33)
[2022-07-14] MEDS: ALBUTEROL 2.5 MG/3 ML NEB SOL NEB SCH ×4 (01:01→19:05)
[2022-07-14] MEDS: IPRATROPIUM BROM 0.5MG/2.5ML NEB SCH ×4 (01:01→19:05)
[2022-07-14] MEDS: HYDROCODONE/APAP 5/325 MG TAB PO PRN ×3 (01:11→21:22)
[2022-07-14] MEDS: CHLORASEPTIC LOZENGES PO PRN ×3 (07:14→21:20)
[2022-07-14] MEDS: ROFLUMILAST 500 MCG TABLET PO SCH (08:35)
[2022-07-14] MEDS: clonazePAM 0.5 MG TAB PO SCH (08:35)
[2022-07-14] MEDS: FLUCONAZOLE 100 MG TAB PO SCH (08:35)
[2022-07-14] MEDS: predniSONE 20 MG TAB PO SCH ×2 (08:35→21:20)
[2022-07-14] MEDS: acetaZOLAMIDE 250 MG TAB PO SCH ×2 (08:35→21:20)
[2022-07-14] MEDS: ENOXAPARIN 40 MG/0.4 ML SQ SCH (08:36)
--- NOTE | 2022-07-14 11:43 | P.PN ---
Subjective Date of Service: 07/14/22 Primary Care Provider: Lee Chief Complaint: Respiratory failure Patient has no new complaint today. She is refusing heart healthy diet and want regular diet. Physical Examination - Vital Signs Temperature: 97.1 F Blood Pressure: 142/79 Pulse: 67 Respirations: 18 Pulse Ox (%): 96 Assessment And Plan - Current Problems (Diagnosis) (1) Acute on chronic respiratory failure with hypoxia and hypercapnia Current Visit: Yes Status: Acute (2) COPD exacerbation Current Visit: Yes Status: Acute (3) Hypertension Current Visit: Yes Status: Chronic Qualifiers: Hypertension type: primary hypertension Qualified Code(s): I10 - Essential (primary) hypertension (4) Hypothyroidism Current Visit: Yes Status: Chronic Qualifiers: Hypothyroidism type: acquired Qualified Code(s): E03.9 - Hypothyroidism, unspecified (5) Obstructive sleep apnea Current Visit: Yes Status: Chronic (6) Acute renal failure Current Visit: Yes Status: Acute (7) Metabolic encephalopathy Current Visit: No Status: Acute (8) Obesity hypoventilation syndrome Current Visit: No Status: Acute - Plan Physical Exam General: Awake, NAD Respiratory: Markedly diminished breath sounds bilaterally, no crackles. Cardiovascular: Regular rate/rhythm, Normal S1 S2 Gastrointestinal: Normal bowel sounds, No tenderness Musculoskeletal: No tenderness Integumentary: No rashes Neurological: no focal motor deficit. Plan: Clinically stable. Continue BiPAP therapy during sleep and oxygen by nasal cannula during the day. Continue treatment for COPD exacerbation with ORAL steroid, scheduled bronchodilators. Continue oral Levaquin. Patient to complete at least 5 days of antibiotic. Hyperkalemia corrected. Patient reports faulty NIV. Social service is arranging for her home NIV to be checked and replaced. Pulmonary-Dr. Do who is assisting with a replacement for her NIV. Patient will need moisturized air with her BIPAP. Anticipating discharge in a.m.
[2022-07-15] MEDS: IPRATROPIUM BROM 0.5MG/2.5ML NEB SCH ×2 (01:00→08:00)
[2022-07-15] MEDS: ALBUTEROL 2.5 MG/3 ML NEB SOL NEB SCH ×2 (01:00→08:00)
[2022-07-15 06:08] LABS: Absolute Lymphocytes (CBC) 1.2 K/uL (0.7-4.9); Hematocrit 33.4 % (36.0-45.0); Lymphocytes % 15.2 % (15.3-44.8); MCV 88.1 fL (80-100); MPV 7.4 fL (7.6-11.3); RBC Red Blood Cell Count 3.79 M/uL (3.86-4.86)
[2022-07-15 06:24] LABS: Potassium 4.3 mmol/L (3.5-5.1)
[2022-07-15] MEDS: clonazePAM 0.5 MG TAB PO SCH (08:04)
[2022-07-15] MEDS: FLUCONAZOLE 100 MG TAB PO SCH (08:04)
[2022-07-15] MEDS: acetaZOLAMIDE 250 MG TAB PO SCH (08:04)
[2022-07-15] MEDS: predniSONE 20 MG TAB PO SCH (08:04)
[2022-07-15] MEDS: ROFLUMILAST 500 MCG TABLET PO SCH (08:04)
[2022-07-15] MEDS: ENOXAPARIN 40 MG/0.4 ML SQ SCH (08:04)
[2022-07-15 09:50] VITALS: BP 132/56; TEMP 96.9
[2022-07-15 10:04] VITALS: O2SAT 89
--- NOTE | 2022-07-15 10:20 | P.DS ---
Admission Date: 07/08/22 Discharge Date: 07/15/22 Primary Care Provider: Lee Disposition: DC HOME/HOME HEALTH CARE Discharge Condition: FAIR Reason for Admission: Respiratory failure - Problems (1) Acute on chronic respiratory failure with hypoxia and hypercapnia Current Visit: Yes Status: Acute (2) COPD exacerbation Current Visit: Yes Status: Acute (3) Hypertension Current Visit: Yes Status: Chronic Qualifiers: Hypertension type: primary hypertension Qualified Code(s): I10 - Essential (primary) hypertension (4) Hypothyroidism Current Visit: Yes Status: Chronic Qualifiers: Hypothyroidism type: acquired Qualified Code(s): E03.9 - Hypothyroidism, unspecified (5) Obstructive sleep apnea Current Visit: Yes Status: Chronic (6) Acute renal failure Current Visit: Yes Status: Acute (7) Metabolic encephalopathy Current Visit: No Status: Acute (8) Obesity hypoventilation syndrome Current Visit: No Status: Acute Brief History of Present Illness: Patient is a 61-year-old female with history of hypertension, COPD on home O2, CHF, obesity, hypothyroidism, and VIVEK who presented to the ED with complaints of shortness of breath. She also complained of chest wall soreness from coughing and reports minimal blood-tinged sputum. She has been using her home inhalers and normal medications without relief. Her ABG showed a pH of 7.25 with PCO2 of 74.5. She was given breathing treatment, Solu-Medrol, and morphine in the ED. BiPAP therapy was also initiated. She supposed to be on BiPAP at home but was not been compliant. BNP 616. Chest x-ray showed moderate CHF. Other labs within normal limits. Patient was admitted for further treatment of the COPD exacerbation. Hospital Course: Patient admitted to the medical floor on BiPAP. She was noted to be acidotic. Serial arterial blood gas showed improvement in acidosis and hypercapnia with a BiPAP. Patient was initially somnolent but her mental status improved. She was subsequently weaned off continuous BiPAP and was using oxygen by nasal cannula during the day and BiPAP during sleep. She was treated for COPD exacerbation with steroids, antibiotics and scheduled bronchodilators. Electrolyte abnormalities including hyperkalemia were corrected Patient reports faulty NIV. Social service arranged for her home NIV to be checked and replaced. Pulmonary-Dr. Do saw patient and assisted with management. Home health set up for NIV is complete. Patient has clinically improved and deemed stable for discharge. Vital Signs/Physical Exam: Temp Pulse Resp BP Pulse Ox 96.9 F 62 18 132/56 L 97 07/15/22 08:00 07/15/22 08:00 07/15/22 08:00 07/15/22 08:00 07/15/22 08:00 General: Alert, In no apparent distress, Obese HEENT: Mucous membr. moist/pink Neck: JVD not distended Respiratory: Diminished Cardiovascular: No edema, Regular rate/rhythm, Normal S1 S2 Gastrointestinal: Normal bowel sounds, Soft and benign, Non-distended Musculoskeletal: No swelling Integumentary: No rashes Neurological: Normal strength at 5/5 x4 extr Laboratory Data at Discharge: WBC 7.70 K/uL (4.3-10.9) 07/15/22 05:40 Hgb 10.6 g/dL (12.0-15.0) L 07/15/22 05:40 Hct 33.4 % (36.0-45.0) L 07/15/22 05:40 Plt Count 168 K/uL (152-406) 07/15/22 05:40 Sodium 139 mmol/L (136-145) 07/15/22 05:40 Potassium 4.3 mmol/L (3.5-5.1) 07/15/22 05:40 BUN 26 mg/dL (7-18) H 07/15/22 05:40 Creatinine 0.92 mg/dL (0.55-1.3) 07/15/22 05:40 Glucose 189 mg/dL (74-106) H 07/15/22 05:40 Phosphorus 7.0 mg/dL (2.5-4.9) H 07/09/22 02:40 Magnesium 2.4 mg/dL (1.8-2.4) 07/10/22 02:46 Total Bilirubin 0.5 mg/dL (0.2-1.0) 07/08/22 16:24 AST 9 U/L (15-37) L 07/08/22 16:24 ALT 16 U/L (12-78) 07/08/22 16:24 Alkaline Phosphatase 111 U/L (45-117) 07/08/22 16:24 Triglycerides 52 mg/dL (<150) 07/09/22 02:40 Cholesterol 186 mg/dL (<200) 07/09/22 02:40 HDL Cholesterol 80 mg/dL (40-60) H 07/09/22 02:40 Cholesterol/HDL Ratio 2.33 07/09/22 02:40 Home Medications: Atorvastatin Calcium [Lipitor*] 20 mg PO BEDTIME 10/23/20 Gabapentin 300 mg PO BID 10/23/20 Roflumilast [Daliresp*] 500 mcg PO DAILY 10/23/20 Umeclidinium Brm/Vilanterol Tr [Anoro Ellipta 62.5-25 Mcg INH] 1 puff IN DAILY 10/23/20 clonazePAM [Klonopin*] 0.5 mg PO DAILY PRN 10/23/20 Tramadol HCl [Ultram] 50 mg PO TID PRN 30 Days #60 tablet 11/21/20 Pantoprazole [Protonix Tab*] 40 mg PO DAILY 02/14/21 Ropinirole HCl [Requip*] 1 mg PO BEDTIME 02/14/21 Cetirizine HCl [Zyrtec*] 10 mg PO DAILY PRN #30 tablet 04/18/21 Cholecalciferol (Vitamin D3) [Vitamin D 5,000 IU Cap*] 5,000 unit PO DAILY #30 cap 04/18/21 Zinc Sulfate [Zinc Sulfate*] 220 mg PO DAILY #30 cap 04/18/21 acetaZOLAMIDE [Diamox*] 250 mg PO BID #60 tab 04/18/21 Albuterol Sulfate [Albuterol Sulfate Hfa] 8.5 gm IH TID #1 hfa.aer.[id number] 04/24/21 Fluconazole 200 mg PO DAILY #7 tablet 05/16/21 Iron Polysaccharide Complex [Polysaccharide Iron] 150 mg PO DAILY #30 capsule 05/16/21 Lidocaine Viscous 2% Soln [Xylocaine Viscous Oral 2%*] 15 ml PO TID PRN #30 udc 05/16/21 predniSONE [Prednisone*] 20 mg PO DAILY #7 tab 08/10/21 Albuterol Neb [Proventil 0.083% Neb Soln] 2.5 mg NEB [id number] #120 amp 07/15/22 Benzocaine/Menthol [Chloraseptic Sore Throat Lozng] 1 shyla PO Q6HP PRN #30 shyla 07/15/22 Benzonatate [Tessalon Perle*] 100 mg PO TID PRN #30 cap 07/15/22 Fluticasone [Flonase 50MCG Nasal Maury*] 1 sprays MINERVA BID #1 btl 07/15/22 Oxymetazoline HCl [Nasal Maury] 5 drop NS PRN PRN #30 ml 07/15/22 New Medications: Benzocaine/Menthol [Chloraseptic Sore Throat Lozng] 1 shyla PO Q6HP PRN #30 shyla PRN Reason: Sore throat Albuterol Neb [Proventil 0.083% Neb Soln] 2.5 mg NEB [id number] #120 amp Fluticasone [Flonase 50MCG Nasal Maury*] 1 sprays MINERVA BID #1 btl Oxymetazoline HCl [Nasal Maury] 5 drop NS PRN PRN #30 ml PRN Reason: Nasal Congestion Benzonatate [Tessalon Perle*] 100 mg PO TID PRN #30 cap PRN Reason: Cough Diet: AHA Activity: Ad kristopher Followup: Billy Howard DO [Primary Care Provider] - 1 Week Isai Do MD [ACTIVE - CAN ADMIT] - 1-2 Weeks Time spent managing pt's care (in minutes): 40
== END 2022-07-15 11:23 | disposition home or self-care (01) | DRG 190 ==
LOC: ER 12:54 → ERHOLD 20:37 → 2ND 07-09 10:11
PROVIDERS: ADMIT Internal Medicine; ATTEND Internal Medicine
PROC: 5A09557 Assistance with Respiratory Ventilation, Greater than 96 Consecutive Hours, Continuous Positive Airway Pressure (ICD-10-PCS; principal; 2022-07-08)
DX: J44.1 Chronic obstructive pulmonary disease with (acute) exacerbation (principal); G93.41 Metabolic encephalopathy; J96.21 Acute and chronic respiratory failure with hypoxia; J96.22 Acute and chronic respiratory failure with hypercapnia; E87.29 Other acidosis; N17.9 Acute kidney failure, unspecified; E66.2 Morbid (severe) obesity with alveolar hypoventilation; Z68.41 Body mass index [BMI] 40.0-44.9, adult; R04.2 Hemoptysis; I50.32 Chronic diastolic (congestive) heart failure; I11.0 Hypertensive heart disease with heart failure; J02.9 Acute pharyngitis, unspecified; G89.29 Other chronic pain; M54.50 Low back pain, unspecified; E87.5 Hyperkalemia; E03.9 Hypothyroidism, unspecified; K21.9 Gastro-esophageal reflux disease without esophagitis; Z23 Encounter for immunization; Z88.5 Allergy status to narcotic agent; Z79.82 Long term (current) use of aspirin; Z79.52 Long term (current) use of systemic steroids; Z99.81 Dependence on supplemental oxygen; Z99.89 Dependence on other enabling machines and devices; Z79.899 Other long term (current) drug therapy; Z79.890 Hormone replacement therapy; Z28.310 Unvaccinated for COVID-19; Z91.199 Patient's noncompliance with other medical treatment and regimen due to unspecified reason; Z87.891 Personal history of nicotine dependence; Z20.822 Contact with and (suspected) exposure to COVID-19
CPT/HCPCS: 36415; 71045; 80048; 80053; 80061; 81001; 82805; 82947; 83735; 83880; 84100; 84132; 84443; 84484; 85025; 87804; 90471; 93005; 94640; 94660; 94760; 96374; 96375; 99285; J0610; J1650; J1815; J2405; J2920; J2930; J7512; Q2035; U0003

== ENCOUNTER 2022-07-29 12:19 | Inpatient (IN) | payer OTHER ==
--- OUTSIDE RECORDS SUMMARY | 2022-07-29 12:25 | XMS REPORT | Continuity of Care Document ---
:1960 Author Organization [facility] t Address [address] [place] [address] Care Team Providers Name Role Phone JOSE MCGUIRE Primary Care Physician Unavailable Billy Howard Attending Clinician Unavailable NEGRA DUNAWAY Attending Clinician Unavailable Jethro Dodge MD Attending Clinician [phone] JETHRO DODGE Attending Clinician Unavailable Doctor Unassigned, [place] Attending Clinician Unavailable Christa King MD Attending Clinician CHRISTA KING Attending Clinician Unavailable JESSE ARREDONDO Attending Clinician Unavailable Dallas Higgins MD Attending Clinician David CARDONA, Viviana Person Attending Clinician Jeronimo Hogue MD Attending Clinician Julian Gonzales MD Attending Clinician Emelina DIETRICH, Sammie Attending Clinician Jordin DIETRICH, Tyler Attending Clinician Sung DIETRICH, Chu Mayer Attending Clinician [phone] CHU MARIN Attending Clinician Unavailable Enriqueta COON, Negra Attending Clinician [phone] Lizbeth Verdugo RN Attending Clinician Annette Conrad [...] Type Policy Number Effective Date Expiration Date S harshad [facility] [id number] 2012 PL[place] 00:00:00 [place] [id number] 2019 [facility] 00:00:00 [facility] Problems Condition Condition Condition Status Onset Resolution Last Treating Co mments Source Name Details Category Date Date Treatment Clinician Date Acute on Acute on Disease Active Unive rs chronic chronic 2-17 [place] of [place] congest[place] congestive 00 Me dical heart heart Branch failure failure Respirator Respirator Disease Active U nivers y failure y failure 2-16 ity of 00:00: [place] 00 Medical Branch Obesity Obesity Disease Active Univers (BMI (BMI 9-11 ity of 30-39.9) 30-39.9) 00:00: [place] 00 Medical Branch Tobacco Tobacco Disease Active [facility] Hypoxemia Hypoxemia Disease [facility] COPD COPD Disease Active [facility] exacerbati exacerbati 02-24 Pema kes on on 00:00: Medical 00 Center Acute Acute Disease Active [facility] hypercapni hypercapni 02-24 Pema kes c c 00:00: Medical respirator respirator 00 Ce nter y failure y failure Pulmonary Pulmonary Problem Active Com mon hypertensi hypertensi Sp kiley on on, - CHI unspecifie [facility] Chronic Chronic Problem Active Common obstructiv obstructiv Sp kiley e e - CHI pulmonary pulmonary St disease disease, [facility] unspecifie Medica l d COPD Center type [id number] Morbid Problem Active Common obesity [facility] [id number] On Problem Active Common supplement Spirit al oxygen - CHI by nasal [facility] [id number] Body mass Problem Active Com mon index Spirit (BMI) - CHI 40.0-44.9, [facility] [id number] CPAP Problem Active Common (continuou Spirit s positive - CHI airway St pressure) [facility] dependence [facility] [id number] Nasal Problem Active Common congestion [facility] Vaginal Vaginal Problem Active Common bleeding bleeding [facility] Congestive Congestive Problem Active C ommon heart heart Spirit disease disease - CHI [facility] [id number] Pain in Problem Active Comm on [id number] right Spirit shoulder - CHI [facility] [id number] VIVEK Problem Active Common (obstructi Spirit ve sleep - CHI apnea) [facility] [id number] Nontraumat Problem Active C ommon [id number] ic Spirit complete - CHI tear of right 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 [id number] SARS Problem Active Common pneumonia [facility] [id number] Other Problem Active Common chronic Spirit pain [facility] Wears Wears Disease Active Univers partial partial ity of dentures dentures [facility] [place] [facility] [id number] Severe Problem Active Common chronic Spirit obstructiv - [facility] e pulmonary [facility] Hypertensi Hypertensi Problem Active C ommon on on Spirit [facility] Hypothyroi Hypothyroi Problem Active C ommon dism dism [facility] Counseling Tobacco Problem Active Comm on about abuse Spirit tobacco counseling - [facility] use [facility] Hyperlipid Hyperlipid Problem Active C ommon emia emia, Spirit unspecifie - [facility] d hyperlipid [facility] emia type [facility] Chronic Chronic Problem Active Common pain pain Spirit syndrome syndrome [facility] Bipolar Bipolar Problem Active Common disorder disorder [facility] [id number] Nasal Problem Active Common bleeding [facility] Essential Essential Problem Active Com mon hypertensi hypertensi Sp kiley on on [facility] [id number] History of Problem Active Co mmon congestive [facility] heart - [facility] failure [facility] Allergies, Adverse Reactions, Alerts Allergy Allergy Status Severity Reaction(s) Onset Inactive Treating Comm ents Source Name Type Date Date Clinician CODEINE DRUG Active Med ITCHING 2014-09 Univers INGREDI 10-31 ity of 00:00: [place] 00 Medical Branch Codeine Propensi Active Itching 2014-09 Per pt Univer s ty to 10-31 she is no ity of adverse 00:00: longer [place] reaction 00 allergic Medica l s to to Branch drug codeine Codeine Codeine Active Unknown Common Spirit - [facility] Social History Social Habit Start Date Stop Date Quantity Comments Source History of Common Spirit - Tobacco Use [facility] History [facility] o f Alcohol Frequency [place] M edical Branch History [facility] University o f Alcohol Std [place] Medical Drinks Branch History [facility] University o f Alcohol Binge [place] Medic al Branch Exposure to 2022-05-28 2022-06-07 Not sure University of SARS-CoV-2 00:00:00 12:57:00 [place] Medical (event) Branch Tobacco use and 2022-06-07 2022-06-07 Smokeless tobacco Un iversity of exposure 00:00:00 00:00:00 non-user [facility] [place] [facility] Alcohol intake 2022-06-07 2022-06-07 0 /d University of 00:00:00 00:00:00 [facility] [place] [facility] Tobacco Comment 2022-06-07 2022-06-07 1-1.5 packs a day, U niversity of 00:00:00 00:00:00 quit 2018 [facility] [place] [facility] Alcohol Comment 2020-11-12 2020-11-12 occasionally Univers ity of 00:00:00 00:00:00 [facility] [place] [facility] Sex Ass[birth year] At [birth year] [facility] kes 00:00:00 00:00:00 [facility] Smoking Status Start Date Stop Date Source Former Smoker 2022-05-07 00:00:00 2022-05-07 00:00:00 Common S pirit - [facility] Medications Ordered Filled Start Stop Current Ordering Indication Dosage Frequency Signature Comments Components Source Medication Medication Date Date Medication? Clinician (SIG) Name Name methylPREDN 2021- No [id number] 80mg U nivers ISolone 06-07 ity of acetate 19:30: 18:38 [place] (DEPO-MEDRO 00 :00 Medical L) Branch injection 80 mg methylPREDN 2021- No [id number] 80mg 80 mg, Univers ISolone 06-07 Intramuscu ity o f acetate 19:30: 18:38 lar, ONCE, Satish as (DEPO-MEDRO 00 :00 1 dose, On Me dical L) Fri Branch injection 06/07/22 at 80 mg 1430, Routine methylPREDN 2021- No [id number] 80mg U nivers ISolone 06-07 ity of acetate 19:30: 18:38 [place] (DEPO-MEDRO 00 :00 Medical L) Branch injection 80 mg methylPREDN 2021- No [id number] 80mg 80 mg, Univers ISolone 06-07 Intramuscu ity o f acetate 19:30: 18:38 lar, ONCE, Satish as (DEPO-MEDRO 00 :00 1 dose, On Me dical L) Fri Branch injection 06/07/22 at 80 mg 1430, Routine Kenalog Kenalog 2021-0 No 40mg Common (Triamcinol (Triamcinol 7-21 S pirit one) one) 00:00: - CHI [facility] Bupivicaine Bupivicaine 2021-0 No 2.5mg Common Acton Acton 7-21 Spirit 00:00: - CHI [facility] Johannalog Kenalog 0 No 40mg Common (Triamcinol (Triamcinol 7-21 S pirit one) one) 00:00: - [facility]I [facility] Bupivicaine Bupivicaine 0 No 2.5mg Common Acton Acton 7-21 Spirit 00:00: - CHI [facility] Johannalog Kenalog 0 No 40mg Common (Triamcinol (Triamcinol 4-27 S pirit one) one) 00:00: - [facility]I [facility] Lidocaine Lidocaine 2021-0 No 10mg Com mon 4- Spirit 00:00: - [facility] Johannalog Kenalog 0 No 40mg Common (Triamcinol (Triamcinol 4-27 S pirit one) one) 00:00: - [facility]I [facility] Lidocaine Lidocaine 2021-0 No 10mg Com mon 4- Spirit 00:00: - [facility]I [facility] Lidocaine Lidocaine 2021-0 No 10mg Com mon 3- Spirit 00:00: - [facility] Johannalog Kenalog 2021-0 No 40mg Common (Triamcinol (Triamcinol 3-17 S pirit one) one) 00:00: - [facility] Lidocaine Lidocaine 2021-0 No 10mg Com mon 3-17 Spirit 00:00: - [facility]I [facility] Johannalog Kenalog 0 No 40mg Common (Triamcinol (Triamcinol 3-17 S pirit one) one) 00:00: - [facility] carvedilol 0 Yes 3.125mg Take 3.125 Univers (COREG) 9-24 mg by ity of 3.125 mg 14:31: mouth 2 [place] tablet 41 (two) Medical times Branch daily with meals. traMADol 50 0 Yes 50mg Take 50 mg Univers mg tablet 9-24 by mouth 3 ity of 14:31: (three) [place] 41 times Medical daily. Branch carvedilol Yes 3.125mg Take 3.125 Univers (COREG) 9-24 mg by ity of 3.125 mg 14:31: mouth 2 [place] tablet 41 (two) Medical times [place] daily with meals. traMADol 50 0 Yes 50mg Take 50 mg Univers mg tablet 9-24 by mouth 3 ity of 14:31: (three) [place] 41 times Medical daily. Branch carvedilol Yes 3.125mg Take 3.125 Univers (COREG) 9-24 mg by ity of 3.125 mg 14:31: mouth 2 [place] tablet 41 (two) Medical times [place] daily with meals. traMADol 50 0 Yes 50mg Take 50 mg Univers mg tablet 9-24 by mouth 3 ity of 14:31: (three) [place] 41 times Medical daily. Branch DALIRESP Yes Univers 500 mcg 9-22 ity of tablet 00:00: [place] [facility] DALIRESP 2020-0 Yes Univers 500 mcg 9-22 ity of tablet 00:00: [place] [facility] DALIRESP 2020-0 Yes Univers 500 mcg 9-22 ity of tablet 00:00: [address] predniSONE 2020-0 Yes 10mg Take 10 mg U nivers 10 mg 8-31 by mouth ity of tablet 00:00: daily. [place] [facility] predniSONE 2020-0 Yes 10mg Take 10 mg U nivers 10 mg 8-31 by mouth ity of tablet 00:00: daily. [place] [facility] predniSONE 2020-0 Yes 10mg Take 10 mg U nivers 10 mg 8-31 by mouth ity of tablet 00:00: daily. [place] [facility] predniSONE 2020-0 Yes TAKE 1 Unive rs 20 mg 8-26 TABLET BY ity of tablet 00:00: MOUTH [place] 00 TWICE Medical DAILY FOR Branch 7 DAYS THEN 1 TABLET FOR 7 DAYS predniSONE 2020-0 Yes TAKE 1 Unive rs 20 mg 8-26 TABLET BY ity of tablet 00:00: MOUTH [place] TWICE Medical DAILY FOR Branch 7 DAYS THEN 1 TABLET FOR 7 DAYS predniSONE 2020-0 Yes TAKE 1 Unive rs 20 mg 8-26 TABLET BY ity of tablet 00:00: MOUTH [place] TWICE Medical DAILY FOR Branch 7 DAYS THEN 1 TABLET FOR 7 DAYS benzonatate 0 Yes TAKE 1 Univ ers 100 mg 8-25 CAPSULE BY ity of capsule 00:00: MOUTH [place] THREE Medical TIMES Branch DAILY NEEDED FOR COUGH fluconazole 2020-0 Yes 200mg Take 200 U nivers 200 mg 8-25 mg by ity of tablet 00:00: mouth [place] every Medical morning. Branch POLY-IRON 0 Yes Take by Unive rs 150 mg iron 8-25 mouth ity of capsule 00:00: daily. [place] Medical Branch LIDOCAINE 2020-0 Yes TAKE 15ML Uni vers VISCOUS 2 % 8-25 BY MOUTH ity of solution 00:00: THREE [place] TIMES Medical DAILY Branch NEEDED FOR SORE THROAT benzonatate 0 Yes TAKE 1 Univ ers 100 mg 8-25 CAPSULE BY ity of capsule 00:00: MOUTH [place] THREE Medical TIMES Branch DAILY NEEDED FOR COUGH fluconazole 2020-0 Yes 200mg Take 200 U nivers 200 mg 8-25 mg by ity of tablet 00:00: mouth [place] every Medical morning. Branch POLY-IRON 0 Yes Take by Unive rs 150 mg iron 8-25 mouth ity of capsule 00:00: daily. [place] Medical Branch LIDOCAINE 2020-0 Yes TAKE 15ML Uni vers VISCOUS 2 % 8-25 BY MOUTH ity of solution 00:00: THREE [place] TIMES Medical DAILY Branch NEEDED FOR SORE THROAT benzonatate 2020-0 Yes TAKE 1 Univ ers 100 mg 8-25 CAPSULE BY ity of capsule 00:00: MOUTH [place] [address] THREE Medical TIMES Branch DAILY NEEDED FOR COUGH fluconazole 2020-0 Yes 200mg Take 200 U nivers 200 mg 8-25 mg by ity of tablet 00:00: mouth [place] [address] every Medical morning. Branch POLY-IRON 2020-0 Yes Take by Unive rs 150 mg iron 8-25 mouth ity of capsule 00:00: daily. [place] Medical Branch LIDOCAINE 2020-0 Yes TAKE 15ML Uni vers VISCOUS 2 % 8-25 BY MOUTH ity of solution 00:00: THREE [place] TIMES Medical DAILY Branch NEEDED FOR SORE THROAT acetaZOLAMI 2020-0 Yes 250mg Take 250 U nivers DE 250 mg 7-28 mg by ity of tablet 00:00: mouth 2 [place] 00 (two) Medical times Branch daily. ELIQUIS 5 2020-0 Yes 5mg Take 5 mg Uni vers [...] CAPSULES ity of capsule 00:00: BY MOUTH 00 TWICE Medical DAILY. Branch nystatin Yes [...] (two) Medical times Branch daily. ELIQUIS 5 2020-0 Yes 5mg Take 5 mg Uni vers [...] (220 mg) 00 daily. Medical capsule Branch Omeprazole Omeprazole No QD Omeprazole 20 MG 20 MG 4-02 20 MG 00:00: 00 Omeprazole Omeprazole No QD Omeprazole 20 MG 20 MG 4-02 20 MG 00:00: 00 albuterol Yes 2.5mg Inhale 2.5 U nivers [...] Branch mcg/actuati on inhalation disk guaiFENesin Yes [id number] 100mg Take 5 mL Univers 100 mg/5 mL 2-25 by mouth ity of solution 00:00: every 4 [place] 00 (four) Medical hours as Branch needed for Cough. furosemide 2021-0 Yes [id number] 40mg Take 2 Univers 20 mg 2-25 tablets by ity of tablet 00:00: mouth [place] 00 daily. Medical Branch guaiFENesin 2020-0 Yes [id number] 100mg Take 5 mL Univers 100 mg/5 mL 2-25 by mouth ity of solution 00:00: every 4 00 (four) Medical hours as Branch needed for Cough. furosemide 2020-0 Yes [id number] 40mg Take 2 Univers 20 mg 2-25 tablets by ity of tablet 00:00: mouth [place] 00 daily. Medical Branch guaiFENesin 2020-0 Yes [id number] 100mg Take 5 mL Univers 100 mg/5 mL 2-25 by mouth ity of solution 00:00: every 4 (four) Medical hours as Branch needed for Cough. furosemide 2020-0 Yes [id number] 40mg Take 2 Univers 20 mg 2-25 [...] tablet 00:00: mouth 00 daily. Medical Branch gabapentin 2020-0 Yes 300mg Take 1 Univ ers 300 mg 2-20 capsule by ity of capsule 00:00: mouth 2 (two) Medical times Branch daily. melatonin 3 2020-0 Yes 6mg Take 2 Univ ers mg tablet 2-20 tablets by ity of 00:00: mouth at [place] 00 bedtime. Medical Branch gabapentin 2020-0 Yes 300mg Take 1 Univ ers 300 mg 2-20 capsule by ity of capsule 00:00: mouth 2 [place] (two) Medical times Branch daily. melatonin 3 2021-0 Yes 6mg Take 2 Univ ers mg tablet 2-20 tablets by ity of 00:00: mouth at [place] 00 bedtime. Medical Branch gabapentin 2020-0 Yes 300mg Take 1 Univ ers 300 mg 2-20 capsule by ity of capsule 00:00: mouth 2 [place] 00 (two) Medical times Branch daily. melatonin 3 Yes 6mg Take 2 Univ ers mg tablet 2-20 tablets by ity of 00:00: mouth at [place] 00 bedtime. Medical Branch fluticasone Yes 1{spray Use 1 Un merry propionate 6-24 } [place] in ity o f 50 00:00: each [place] mcg/actuati 00 nostril Medic al on nasal daily. Branch spray fluticasone Yes 1{spray Use 1 Un merry propionate 6-24 } [place] in ity o f 50 00:00: each [place] mcg/actuati 00 nostril Medic al on nasal daily. Branch spray fluticasone Yes 1{spray Use 1 Un merry propionate 6-24 } [place] in ity o f 50 00:00: each [place] mcg/actuati 00 nostril Medic al on nasal [...] [place] drops 00 daily. Medical Branch Kenalog Kenalog No 40mg Common (Triamcinol (Triamcinol 4-25 S pirit one) one) 00:00: - [facility] Kenalog Kenalog No 40mg Common (Triamcinol (Triamcinol 4-25 S pirit one) one) 00:00: - [facility] azithromyci Yes 250mg QD Take 1 CHI [...] tablets daily until tablets run out.. azithromyci 2017- Yes 250mg QD Take [address] [...] 2 tablets daily until tablets run out.. predniSONE Yes Take 4 CHI S t [...] mouth daily Take by mouth as directed.. Flonase Flonase No Flonase Furosemide Furosemide No 1{table QD Furosemide 20 MG 20 MG t} 20 MG Atorvastati Atorvastati No Atorvastat n Calcium n Calcium in Calcium 20 MG 20 MG 20 MG Daliresp Daliresp No 1{table QD Daliresp 500 MCG 500 MCG t} 500 MCG Albuterol Albuterol No 1{ml_as QID Albuterol Sulfate (5 Sulfate (5 _needed Sulfate (5 MG/ML) 0.5% MG/ML) 0.5% } MG/ML) 0.5% acetaZOLAMI acetaZOLAMI No acetaZOLAM DE 250 MG DE 250 MG GAURAV 250 MG Aleve Aleve No Aleve Anoro Anoro No 1{puff} QD Anoro Ellipta Ellipta Ellipta 62.5-25 62.5-25 62.5-25 MCG/INH MCG/INH MCG/INH Aspirin 81 Aspirin 81 No 1{table QD Aspirin 81 MG MG t} MG Levothyroxi Levothyroxi No QD Levothyrox ne Sodium ne Sodium ine Sodium 88 MCG 88 MCG 88 MCG Melatonin Melatonin No Melatonin Latanoprost Latanoprost No 1{drop_ QD Latanopros 0.005 % 0.005 % into_af t 0.005 % fected_ eye_in_ the_eve gera} Atorvastati Atorvastati No QD Atorvastat n Calcium n Calcium in Calcium 20 MG 20 MG 20 MG traMADol traMADol No 1{table TID traMADol HCl 50 MG HCl 50 MG t_as_ne HCl 50 MG eded} rOPINIRole rOPINIRole No QD rOPINIRole HCl 1 MG HCl 1 MG HCl 1 MG Flonase 50 Flonase 50 No 2{spray QD Flonase 50 MCG/ACT MCG/ACT s_in_ea MCG/ACT ch_nost ril} Pantoprazol Pantoprazol No 1{table QD Pantoprazo e Sodium 40 e Sodium 40 t} le Sodium MG MG 40 MG clonazePAM clonazePAM No 1{table QD clonazePAM 0.5 MG 0.5 MG t_at_be 0.5 MG dtime} Carvedilol Carvedilol No BID Carvedilol 3.125 MG 3.125 MG 3.125 MG rOPINIRole rOPINIRole No rOPINIRole HCl 1 MG HCl 1 MG HCl 1 MG Levothyroxi Levothyroxi No Levothyrox ne Sodium ne Sodium ine Sodium 88 MCG 88 MCG 88 MCG Flonase Flonase No Flonase Furosemide Furosemide No 1{table QD Furosemide 20 MG 20 MG t} 20 MG Atorvastati Atorvastati No Atorvastat n Calcium n Calcium in Calcium 20 MG 20 MG 20 MG Daliresp Daliresp No 1{table QD Daliresp 500 MCG 500 MCG t} 500 MCG Albuterol Albuterol No 1{ml_as QID Albuterol Sulfate (5 Sulfate (5 _needed Sulfate (5 MG/ML) 0.5% MG/ML) 0.5% } MG/ML) 0.5% acetaZOLAMI acetaZOLAMI No acetaZOLAM DE 250 MG DE 250 MG GAURAV 250 MG Aleve Aleve No Aleve Anoro Anoro No 1{puff} QD Anoro Ellipta Ellipta Ellipta 62.5-25 62.5-25 62.5-25 MCG/INH MCG/INH MCG/INH Aspirin 81 Aspirin 81 No 1{table QD Aspirin 81 MG MG t} MG Levothyroxi Levothyroxi No QD Levothyrox ne Sodium ne Sodium ine Sodium 88 MCG 88 MCG 88 MCG Melatonin Melatonin No Melatonin Latanoprost Latanoprost No 1{drop_ QD Latanopros 0.005 % 0.005 % into_af t 0.005 % fected_ eye_in_ the_eve gera} Atorvastati Atorvastati No QD Atorvastat n Calcium n Calcium in Calcium 20 MG 20 MG 20 MG traMADol traMADol No 1{table TID traMADol HCl 50 MG HCl 50 MG t_as_ne HCl 50 MG eded} rOPINIRole rOPINIRole No QD rOPINIRole HCl 1 MG HCl 1 MG HCl 1 MG Flonase 50 Flonase 50 No 2{spray QD Flonase 50 MCG/ACT MCG/ACT s_in_ea MCG/ACT ch_nost ril} Pantoprazol Pantoprazol No 1{table QD Pantoprazo e Sodium 40 e Sodium 40 t} le Sodium MG MG 40 MG clonazePAM clonazePAM No 1{table QD clonazePAM 0.5 MG 0.5 MG t_at_be 0.5 MG dtime} Carvedilol Carvedilol No BID Carvedilol 3.125 MG 3.125 MG 3.125 MG rOPINIRole rOPINIRole No rOPINIRole HCl 1 MG HCl 1 MG HCl 1 MG Levothyroxi Levothyroxi No Levothyrox ne Sodium ne Sodium ine Sodium 88 MCG 88 MCG 88 MCG Vital Signs Vital Name Observation Time Observation Value Comments Source Systolic blood 2022-06-07 18:07:00 153 [facility] Diastolic blood 2022-06-07 18:07:00 97 mm[Hg] [facility] Heart rate 2022-06-07 18:07:00 96 /min [facility] Body temperature 2022-06-07 18:07:00 36.39 Sapna [facility] Body height 2022-06-07 18:07:00 175.3 cm [facility] Body weight 2022-06-07 18:07:00 130.636 kg [facility] BMI 2022-06-07 18:07:00 42.53 kg/m2 [facility] height 2022-05-07 14:40:00 69 [in_i] [facility] weight 2022-05-07 14:40:00 282 [lb_av] [facility] temperature 2022-05-07 14:40:00 98.0 [degF] [facility] bmi 2022-05-07 14:40:00 41.64 kg/m2 [facility] oximetry 2022-05-07 14:40:00 96 % [facility] respiratory rate 2022-05-07 14:40:00 16 /min Comm on [facility] blood pressure 2022-05-07 14:40:00 132 mm[Hg] Common [facility] systolic [facility] blood pressure 2022-05-07 14:40:00 86 mm[Hg] Common [facility] diastolic [facility] Procedures Procedure Date / Time Performed Performing Clinician Sour e XR SHOULDER 2+ VW 2022-06-07 18:28:[address] [facility] Encounters Start End Encounter Admission Attending Care Care Encounter Source Date/Time Date/Time Type Type Clinicians Facility Department ID 2022-05-07 Outpatient HowardUBALDO STLMLC [id number] Common 14:36:[facility] [id number] [facility] 2022-07-29 2022-07-29 Outpatient Pepper LEACH [facility] [id number] Univers 16:00:00 16:00:00 keisha RAMIREZ [facility] 2022-06-24 2022-06-24 Outpatient Pepper LEACH [facility] [id number] Univers 11:40:00 11:40:00 keisha RAMIREZ [facility] 2022-06-07 2022-06-07 [facility] [id number] Univers 13:11:58 23:59:00 Encounter [facility]eth[id number] [id number] [facility] AT [phone] Wi terrence HOOK 809 [facility] 2022-06-07 2022-06-07 [facility] [id number] Univers 13:20:00 13:44:39 Visit Jethro MAXI [id number] ity of [facility] [id number] [place] [phone] Wi terrence HOOK 198 [facility] 2022-06-07 2022-06-07 [facility] [id number] Univers 13:20:00 13:44:39 JETHRO keisha [facility] 2022-06-07 2022-06-07 Outpatient Pepper DODGE [facility] [id number] Univers 13:20:00 13:44:39 JETHRO keisha [facility] 2022-06-07 2022-06-07 [facility] [id number] Univers 13:20:00 13:20:00 JETHRO valdes [facility] 2022-05-30 2022-05-30 Outpatient Pepper DODGE [facility] [id number] Univers 13:10:00 13:10:00 JETHRO valdes [facility] 2022-05-22 2022-05-22 Orders Doctor THI [id number] Univers 00:00:00 00:00:00 Only Unassigned, VANESSA [id number] ity of [place] [facility] [id number] Satish [id number] [address] 2022-05-07 2022-05-07 OFFICE [facility] [id number] Co mmon 00:00:00 00:00:00 VISIT Spirit ESTAB PT - CHI LEVEL 4 [facility] 2022-05-07 2022-05-07 (TEL) [facility] [id number] Co mmon 00:00:00 00:00:00 Spirit - [facility] 2022-04-18 2022-04-18 Orders Doctor THI Alvarez2.840.114 [id number] Univers 00:00:00 00:00:00 Only Unassigned, VANESSA 350.1.13.10 ity of [place] [facility] 4.2.7.2.686 Satish as [phone] [facility] [address] 2021-06-15 2021-06-15 Office Christa King [facility] Rodriguez 1.2.840.114 [id number] Univers 14:04:32 15:05:28 Visit Salazar Girard 350.1.13.10 it y of Women[facility] 4.2.7.2.686 [facility] [phone] [facility] [address] 2021-06-15 2021-06-15 Outpatient R CHRISTA KING [facility] [id number] Univers 14:30:00 14:30:00 ity [facility] 2021-06-08 2021-06-08 Outpatient R [facility] [id number] Univers 14:00:00 14:00:00 ity [facility] 2021-06-04 2021-06-04 Outpatient R JESSE ARREDONDO [facility] [id number] Univers 13:00:00 13:00:00 ity [facility] 2021-01-25 2021-01-25 Orders Doctor NESS 1.2.840.114 [id number] 00:00:00 00:00:00 Only Unassigned, VANESSA 350.1.13.10 [place] [facility] 4.2.7.2.686 [id number] 009 2021-01-25 2021-01-25 Orders Doctor NESS 1.2.840.114 [id number] Univers 00:00:00 00:00:00 Only Unassigned, VANESSA 350.1.13.10 ity of [facility] 4.2.7.2.686 Satish as [phone] [address] 2021-01-15 2021-01-15 Orders Doctor THI Thomas.2.840.114 [id number] 00:00:00 00:00:00 Only Unassigned, VANESSA 350.1.13.10 [facility] 4.2.7.2.686 [phone] 009 2021-01-15 2021-01-15 Orders Doctor THI Alvarez2.840.114 [id number] Univers 00:00:00 00:00:00 Only Unassigned, VANESSA 350.1.13.10 [facility] 4.2.7.2.686 Satish as [phone] [facility] [address] 2020-11-17 2020-11-17 [facility] 1.2.840.114 [id number] 00:00:00 00:00:00 Management [place] Oates MULTISPEC 350.1.13.10 [facility]ALTY 4.2.7.2.686 CENTER [phone] [facility] 2020-11-17 2020-11-17 Transition Molly Hernandez 1.2.840.114 [id number] 00:00:00 00:00:00 of Care Viviana Leviy 350.1.13.10 [place] [id number] [id number] 2020-11-17 2020-11-17 Transition Molly Hernandez 1.2.840.114 [id number] Univers 00:00:00 00:00:00 of Care Viviana Person Chiu 350.1.13.10 i ty of [place].2.[place] [phone] [facility] [address] 2020-11-17 2020-11-17 [facility] 1.2.840.114 [id number] Univers 00:00:00 00:00:00 Management [place] Oates MULTISPEC 350.1.13.10 ity of [place] [phone] [facility] [address] [facility] 2020-11-12 2020-11-16 [facility] Jeronimo Hogue 1.2.840.1 14 [id number] 18:33:00 16:20:00 Encounter Julian Gonzales Milton Vanessa 350.1.13.10 Ronaldo [facility] 4.2.7.2.686 Sammie Tarango [phone] [place] Trevizo 09Chu Causey Shahzad Suthar, Krishna Hemant 2020-11-12 2020-11-16 [facility] [id number] Univers 18:33:00 16:20:00 CHU ity of [facility] 2020-11-12 2020-11-16 [facility] Jeronimo Hogue 1.2.840.1 14 [id number] Univers 18:33:00 16:20:00 Encounter Julian Gonzales 350.1.13.10 ity of [facility] 4.2.7.2.686 [facility] Sammie [phone] [facility] Tyler Trevizo 095 [facility], Chu Moreno Jessicasanjiv Tyler [facility], Chu Moreno 2020-11-14 2020-11-14 Telephone [employer] [facility] 1.2.840.114 [id number] 00:00:00 00:00:00 samuel, SPECIALTY 350.1.13.10 [place] [facility] 4.2.7.2.686 CENTER AT [phone] [address] 2020-11-14 2020-11-14 Telephone [employer] [facility] 1.2.840.114 [id number] Univers 00:00:00 00:00:00 samuel, SPECIALTY 350.1.13.10 ity of [place] [facility] 4.2.7.2.686 [facility] AT [phone] [address] 2020-11-13 2020-11-13 Transition Molly Verdugo 1.2.840.114 [id number] 00:00:00 00:00:00 of Care Lizbeth Chiu 350.1.13.10 [place] 4.2.7.2.686 [id number] [facility] 2020-11-13 2020-11-13 Transition Molly Verdugo 1.2.840.114 [id number] Univers 00:00:00 00:00:00 of Care Lizbeth Chiu 350.1.13.10 it y of [place].2.[place] [phone] [place] [address] Branch 2020-11-07 2020-11-11 [facility] Jeronimo Hogue [facility] 1.2.840.1 14 [id number] 06:48:00 14:50:00 Encounter Annette Conrad 350.1.13.10 [place] Yoder 4.2.7.2.686 [facility] [phone] [facility] 2020-11-07 2020-11-11 Inpatient X DEEDEE CONRAD [facility] [id number] [facility] 06:48:00 14:50:00 ANNETTE ity [facility] 2020-11-07 2020-11-11 [facility] Tima Hoguenell [facility] 1.2.840.1 14 [id number] [facility] 06:48:00 14:50:00 Encounter Annette Conrad 350.1.13.10 ity of [place] 4.2.7.2.686 [facility] [phone] [address] 2020-07-12 2020-07-12 [facility] 1.2.840.114 7 [id number] 11:56:24 23:59:00 Encounter njumon, Pediatric 350.1.13.10 [place] and 4.2.7.2.686 Adult [id number] [address] 2020-07-12 2020-07-12 [facility] 1.2.840.114 [id number] [facility] 11:56:24 23:59:00 Encounter njumon, Pediatric 350.1.13.10 ity of [place] [phone] [address] 2020-07-12 2020-07-12 Office [facility] 1.2.840.114 [id number] 11:00:10 13:58:54 Visit njumon, Pediatric 350.1.13.10 [place] and 4.2.7.2.686 Adult [phone] [address] 2020-07-12 2020-07-12 Office Harmony-Zane Tate 1.2.840.114 [id number] [facility] 11:00:10 13:58:54 Visit azaelumon, Pediatric 350.1.13.10 ity of [place] and [place] [phone] [facility] [address] [facility] 2020-07-12 2020-07-12 Outpatient R HARMONY-KU [facility] [id number] Univers 11:00:00 11:00:00 NJROSANGELA, ity of [place] [facility] 2020-07-03 2020-07-03 Orders Doctor NESS 1.2.840.114 [id number] 00:00:00 00:00:00 Only Unassigned, VANESSA 350.1.13.10 [facility] 4.2.7.2.686 [id number] 009 2020-07-03 2020-07-03 Orders Doctor THI 1.2.840.114 [id number] Univers 00:00:00 00:00:00 Only Unassigned, VANESSA 350.1.13.10 ity of [facility] 4.2.7.2.686 Satish as [phone] [address] 2020-06-02 2020-06-02 Office [facility] 1.2.840.114 [id number] Univers 12:31:11 14:20:12 Visit Edilma Amador 350.1.13.10 ity of [place] [phone] [address] 2020-06-02 2020-06-02 Outpatient R AD, [facility] [id number] Univers 13:00:00 13:00:00 EDILMA valdes [facility] 2020-06-02 2020-06-02 Orders Doctor NESS 1.2.840.114 [id number] Univers 00:00:00 00:00:00 Only Unassigned, VNAESSA 350.1.13.10 ity of [facility] 4.2.7.2.686 Satish as [phone] [address] 2020-05-26 2020-05-26 [facility] [id number] Univers 10:45:00 10:45:00 EDILMA valdes [facility] 2020-05-26 2020-05-26 [facility] 1.2.840.114 [id number] Univers 08:07:24 08:37:24 ne Visit Edilma Amador 350.1.13.10 ity of [place] [phone] [address] 2020-05-12 2020-05-12 Outpatient R AD, [facility] [id number] Univers 13:00:00 13:00:00 EDILMA itchiki [facility] 2020-04-25 2020-04-25 [facility] 1.2.840.114 [id number] Univers 15:50:23 23:59:00 Encounter Edilma Amador 350.1.13.10 ity of [place] [phone] [facility] [address] 2020-04-25 2020-04-25 [facility] [id number] Univers 00:00:00 00:00:00 EDILMA valdes [facility] 2020-04-25 2020-04-25 Orders Doctor THI 1.2.840.114 [id number] Univers 00:00:00 00:00:00 Only Unassigned, VANESSA 350.1.13.10 ity of [facility] 4.2.7.2.686 Satish as [phone] [address] 2020-04-14 2020-04-14 [facility] 1.2.840.114 [id number] Univers 14:15:54 14:56:38 Visit Edilma Amador 350.1.13.10 ity of [place] [phone] [address] 2020-04-14 2020-04-14 Outpatient R AD, [facility] [id number] Univers 13:30:00 13:30:00 EDILMA valdes [facility] 2020-04-13 2020-04-13 Orders Doctor THI 1.2.840.114 [id number] Univers 00:00:00 00:00:00 Only Unassigned, VANESSA 350.1.13.10 ity of [facility] 4.2.7.2.686 Satish as [phone] [address] 2019-11-01 2019-11-01 Telephone [facility] 1.2.840.114 [id number] Univers 00:00:00 00:00:00 Jethro HEALTH 350.1.13.10 it y of [place] 4.2.7.2.686 [facility] [phone] [facility] & [address] Specialty Care 2019-10-28 2019-10-28 Telephone [facility] 1.2.840.114 [id number] Univers 00:00:00 00:00:00 Jethro HEALTH 350.1.13.10 it y of [place] 4.2.7.2.686 [facility] [phone] [facility] [address] Specialty Care 2019-10-26 2019-10-26 Office [facility] 1.2.840.114 [id number] Univers 14:08:12 15:44:07 Visit Jethro HEALTH 350.1.13.10 it y of [place] 4.2.7.2.686 [facility] [phone] [facility] [address] Specialty Care 2019-10-07 2019-10-07 Telephone [facility] 1.2.840.114 [id number] Univers 00:00:00 00:00:00 Jethro ZAVALA 350.1.13.10 i ty [facility] [place].2.[place] [id number] [facility] [address] 2019-10-06 2019-10-06 [facility] [id number] Univers 10:39:27 23:59:00 JETHRO valdes of [facility] 2019-10-06 2019-10-06 [facility] [address], Aleida 1.2.755.762 [id number] Univers 10:39:00 23:59:00 Encounter Jethro Mendez 350.1.13.10 ity of [facility] 4.2.7.2.686 Satish as [phone] [facility] [address] 2019-10-06 2019-10-06 [facility] Aleida Zhao 1.2.770.589 [id number] Univers 09:41:27 16:32:00 Encounter Jethro Mendez 350.1.13.10 ity of [facility] 4.2.7.2.686 Satish as [phone] [facility] [address] 2019-10-06 2019-10-06 Orders Doctor THI 1.2.840.114 [id number] Univers 00:00:00 00:00:00 Only Unassigned, VANESSA 350.1.13.10 ity of [place] [facility] 4.2.7.2.686 Satish as [phone] [facility] [address] 2019-05-28 2019-05-28 Office [facility] 1.2.840.114 [id number] Univers 13:10:51 15:03:17 Visit Nesha Amador 350.1.13.10 i ty of [place] [phone] Me dical nal [address] Building Results [...] NOT 1092) ACCURATE CRE ATININE CLEARANCE IN DC EDICTING GLOMERULAR FILT RATION RATE. ESTIMATED GFR [...] 0-0 (AKER) (test code = 413) 0.00POCT-GLUCOSE [id number] 17:50:00 Test Item Value Reference Range Interpretation Comments POC-GLUCOSE METER 118 mg/dL 70-110 H TESTED AT [place] [address] ([facility]) (test code = KISHA [facility] 1538) 13473 POCT-GLUCOSE [id number] 11:59:00 Test Item Value Reference Range Interpretation Comments POC-GLUCOSE METER 247 mg/dL 70-110 H TESTED AT [place] [address] ([facility]) (test code = KISHA Pabon [facility] 1538) 15215 POCT-GLUCOSE [id number] 07:54:00 Test Item Value Reference Range Interpretation Comments POC-GLUCOSE METER 141 mg/dL 70-110 H TESTED AT [place] [address] ([facility]) (test [facility] = [facility]) 75087 CBC W/PLT COUNT & AUTO [id number] 03:45:00 Test Item Value Reference Range Interpretation Comments WHITE BLOOD CELL COUNT ([facility]) 4.9 K/ L 4.0-10.0 (test code = 775) RED BLOOD CELL COUNT (AKER) 4.03 M/ L 4.00-5.00 (test code = [...] K/ L 0.00-0.20 (test code = 417) [id number] 03:29:00 Test Item Value Reference Range Interpretation Comments MAGNESIUM (BEAKER) 1.8 mg/dL 1.6-2.6 Specimen slightly (test code = 627) hemolyzed BASIC METABOLIC [id number] 03:29:00 Test Item Value Reference Range Interpretation [...] NOT APPLICABLE FOR DIALYSIS PATIEN TS. POCT-GLUCOSE [id number] 00:05:00 Test Item Value Reference Range Interpretation Comments POC-GLUCOSE METER 117 mg/dL 70-[address] [facility] 6720 ([facility]) (test code = [facility] 1538) [address]38 POCT-GLUCOSE [id number] 18:17:00 Test Item Value Reference Range Interpretation Comments POC-GLUCOSE METER 141 mg/dL 70-[address] [facility] 6720 ([facility]) (test code = [facility] 1538) 92114 CREATINE KINASE (CK), TOTAL AND [id number] 15:43:00 Test Item Value Reference Range Interpretation Comments CREATINE KINASE TOTAL (BEAKER) 31 U/L 29-200 (test code = 380) CREATINE KINASE-MB (BEAKER) (test 1.3 ng/mL 0.0-6.6 code = 750) CREATINE KINASE-MB INDEX (BEAKER) 4.2 % (test code = 395) Effective 08/09/2014: CK-MB Reference Range ChangeNew: 0.0-6.6 Previous: 0.0-4.9CK-MB Reference Range:<6.7 Normal6.7-10.0 Borderline>10.0 Abnormal BLOOD GAS, [id number] 15:26:00 Test Item Value Reference Range Interpretation [...] (test code = 1819) 35.0 % POCT-GLUCOSE [id number] 11:45:00 Test Item Value Reference Range Interpretation Comments POC-GLUCOSE METER 122 mg/dL 70-[address] [facility] 6720 (BEAKER) (test code = KISHA GARCÍA [place] 1538) 19377 CREATINE KINASE (CK), TOTAL AND [id number] 10:29:00 Test Item Value Reference Range Interpretation Comments CREATINE KINASE TOTAL (BEAKER) 31 U/L 29-200 (test code = 380) CREATINE KINASE-MB (BEAKER) (test 1.5 ng/mL 0.0-6.6 code = 750) CREATINE KINASE-MB INDEX (BEAKER) 4.8 % (test code = 395) Effective 08/09/2014: CK-MB Reference Range ChangeNew: 0.0-6.6 Previous: 0.0-4.9CK-MB Reference Range:<6.7 Normal6.7-10.0 Borderline>10.0 Abnormal TROPONIN [id number] 10:29:00 Test Item Value Reference Range Interpretation [...] failure, acidosis, acute neurological disease, and persistent tachyarrhythmia.[id number] 10:22:00 Test Item Value Reference Range Interpretation Comments PARTIAL THROMBOPLASTIN TIME 22.5 seconds 22.5-36.0 (BEAKER) (test code = 760) PROTHROMBIN TIME/[id number] 10:21:00 Test Item Value Reference Range Interpretation Comments PROTIME (BEAKER) (test code = 12.4 seconds 11.7-14.7 759) INR (BEAKER) (test code = 370) 0.9 <=5.9 RECOMMENDED COUMADIN/WARFARIN INR THERAPY RANGESSTANDARD DOSE: 2.0 - 3.0 Includes: PROPHYLAXIS for venous thrombosis, systemic embolization; TREATMENT for venous thrombosis and/or pulmonary embolus.HIGH RISK: Target INR is 2.5-3.5 for patients with mechanical heart valves.BLOOD GAS, [id number] 10:17:00 Test Item Value Reference Range Interpretation [...] (test code = 1819) 40.0 % PLATELET [id number] 10:13:00 Test Item Value Reference Range Interpretation Comments PLATELET COUNT (BEAKER) (test 111 K/CU MM 150-430 L code = 756)
[2022-07-29] MEDS ORDERED: METHYLPREDNISOLONE 125 MG INJ ONE (12:26)
[2022-07-29] MEDS ORDERED: IPRATROPIUM BROM 0.5MG/2.5ML ONE (12:27)
[2022-07-29] MEDS ORDERED: ALBUTEROL 2.5 MG/3 ML NEB SOL ONE (12:27)
[2022-07-29 12:56] LABS: Absolute Lymphocytes (CBC) 1.3 K/uL (0.7-4.9); Hematocrit 35.3 % (36.0-45.0); Lymphocytes % 18.4 % (15.3-44.8); MCV 87.6 fL (80-100); MPV 7.2 fL (7.6-11.3); RBC Red Blood Cell Count 4.03 M/uL (3.86-4.86)
--- NOTE | 2022-07-29 13:01 | RAD REPORT ---
EXAM DESCRIPTION: RAD - Chest Single View - 07/29/2022 12:49 pm CLINICAL HISTORY: Cough,, shortness of breath COMPARISON: Portable 07/08/2022 TECHNIQUE: AP portable chest image was obtained 07/29/2022 12:49 pm . FINDINGS: No peripheral mass or consolidation. Chronic interstitial opacification is present potenti ally masking superimposed interstitial edema or infiltrate. Heart size is upper normal. Central vascu lature is prominent. Similar appearance was seen on the July 08 study. No measurable pleural effusion and no pneumothorax. No acute bony abnormality seen. No acute aortic findings suspected. IMPRESSION: CHF/volume overload pattern superimposed on chronic interstitial lung disease. Findings are similar to the July 08 imaging.
[2022-07-29 13:14] LABS: Potassium 4.4 mmol/L (3.5-5.1)
[2022-07-29 14:03] LABS: Troponin High Sensitivity 16.7 pg/mL (<58.9)
--- NOTE | 2022-07-29 14:45 | EDPHYS ---
Physician Documentation [facility] Name: Vikki Zamudio Age: 61 yrs Sex: Female : 1960 Arrival Date: 07/29/2022 Time: 12:21 Bed 30 Private MD: ED Physician Donta An HPI: 07/29 14:19 This 61 yrs old Female presents to ER via EMS with complaints of shortness of breath. kb 14:19 The patient has shortness of breath at rest. Onset: The symptoms/episode began/occurred kb last night. Duration: The symptoms are continuous. The patient's shortness of breath is aggravated by nothing, is alleviated by nothing. Associated signs and symptoms: The patient has no apparent associated signs or symptoms. Severity of symptoms: At their worst the symptoms were moderate in the emergency department the symptoms are unchanged. The patient has experienced similar episodes in the past, multiple times. The patient has not recently seen a physician. 14:24 Pt reports shortness of breath since last night. Pt has history of CHF and COPD, on 3L kb O2 at all times. . Historical: - Allergies: 12:34 No Known Allergies; kr3 - PMHx: 12:34 CHF; COPD; GERD; High Cholesterol; Hypercarbia; Hypertension; Hypothyroidism; Panic kr3 Attacks; Sleep Apnea; - PSHx: 12:34 None; kr3 - Immunization history:: Adult Immunizations not up to date. - Social history:: Smoking status: Patient/guardian denies using tobacco, the patient reports quitting approximately 5 years ago. ROS: 14:21 Constitutional: Negative for fever, chills, and weight loss. kb 14:21 Respiratory: Positive for dyspnea on exertion, shortness of breath. 14:21 All other systems are negative. Exam: 14:20 Constitutional: This is a well developed, well nourished patient who is awake, alert, kb and in no acute distress. Head/Face: Normocephalic, atraumatic. ENT: Moist Mucous membranes Cardiovascular: Regular rate and rhythm with a normal S1 and S2. No gallops, murmurs, or rubs. No pulse deficits. Abdomen/GI: Soft, non-tender. No distention Skin: Warm, dry with normal turgor. Normal color. MS/ Extremity: Pulses equal, no cyanosis. Neurovascular intact. Full, normal range of motion. Neuro: Awake and alert, GCS 15, oriented to person, place, time, and situation. Moves all extremities. Normal gait. Psych: Awake, alert, with orientation to person, place and time. Behavior, mood, and affect are within normal limits. 14:20 ECG was reviewed by the Attending Physician. 14:20 Respiratory: the patient does not display signs of respiratory distress, Respirations: normal, Breath sounds: decreased breath sounds, that are mild, are located in both bases. Vital Signs: 12:28 BP 121 / 69; Pulse 77; Resp 24; Temp 98.5; Pulse Ox 92% on 5 lpm NC; Height 5 ft. 9 in. kr3 (175.26 cm); 12:52 Pulse Ox 90% on 4 lpm NC; tp1 12:54 Weight 128.82 kg; tp1 13:28 BP 122 / 65; Pulse 74; Resp 24; Pulse Ox 92% on 5 lpm NC; tp1 13:39 Resp 24; Pulse Ox 92% on 3 lpm NC; tp1 14:42 BP 116 / 61; Pulse 82; Resp 25; Pulse Ox 97% on 55% BiPAP; tp1 16:08 BP 125 / 67; Pulse 68; Resp 22; Pulse Ox 96% on 55% BiPAP; tp1 17:17 BP 123 / 70; Pulse 64; Resp 22; Pulse Ox 96% on 55% BiPAP; tp1 17:45 BP 139 / 79; Pulse 74; Resp 23; Pulse Ox 100% on BiPAP; tp1 19:30 BP 112 / 72; Pulse 64; Resp 22; Pulse Ox 100% on 55% BiPAP; tp1 12:54 Body Mass Index 41.94 (128.82 kg, 175.26 cm) tp1 MDM: 12:21 Patient medically screened. kb 14:21 Data reviewed: vital signs, nurses notes. Data interpreted: Pulse oximetry: on 3L(s) kb per nasal canula, home o2 is 92 %. Interpretation: normal. 14:25 Counseling: I had a detailed discussion with the patient and/or guardian regarding: the kb historical points, exam findings, and any diagnostic results supporting the discharge/admit diagnosis, lab results, radiology results, the need for further work-up and treatment in the hospital. 15:51 Physician consultation: Sarwat Olvera regarding admission, patient's condition, and kb will see patient in ED. 15:52 Physician consultation: Isai Do MD regarding consult, patient's condition. kb 07/29 12:22 Order name: CBC with Diff; Complete Time: 13:10 kb 07/29 12:22 Order name: Basic Metabolic Panel; Complete Time: 13:15 kb 07/29 12:22 Order name: Blood Culture Adult (2) kb 07/29 12:22 Order name: Lactate; Complete Time: 14:02 kb 07/29 13:29 Order name: Flu; Complete Time: 14:59 kb 07/29 13:29 Order name: COVID-19 SARS RT PCR (Document "Date of Onset" if Symptomatic); Complete kb Time: 14:27 07/29 12:22 Order name: Chest Single View XRAY; Complete Time: 13:10 kb 07/29 13:28 Order name: RC 02 HUMIDIFIER EDMS 07/29 13:43 Order name: BNP; Complete Time: 14:05 kb 07/29 13:43 Order name: Troponin High Sensitivity; Complete Time: 14:05 kb 07/29 13:45 Order name: ABG; Complete Time: 15:56 kb 07/29 14:42 Order name: Strep; Complete Time: 15:08 kb 07/29 15:10 Order name: Throat Culture EDMS 07/29 12:22 Order name: IV Start; Complete Time: 12:52 kb 07/29 13:43 Order name: EKG; Complete Time: 13:43 kb 07/29 13:43 Order name: EKG - Nurse/Tech; Complete Time: 14:20 kb EC:20 Rate is 95 beats/min. Rhythm is regular. QRS Brady is Normal. OR interval is normal at kb 192 msec. QRS interval is normal at 86 msec. QT interval is normal at 459 msec. Administered Medications: 12:30 Drug: Albuterol 2.5 mg Route: Inhalation; tp1 16:10 Follow up: Response: No adverse reaction tp1 12:30 Drug: AtroVENT (ipratropium) Aerosol 0.5 mg Route: Inhalation; tp1 16:10 Follow up: Response: No adverse reaction tp1 12:48 Drug: SOLU-Medrol (methylPrednisoLONE) 125 mg Route: IVP; Site: left wrist; tp1 16:10 Follow up: Response: No adverse reaction tp1 Disposition: 07/30 17:08 Co-signature as Attending Physician, Donta An MD. rn Disposition Summary: 07/29/22 14:45 Hospitalization Ordered Hospitalization Status: Inpatient Admission kb Provider: Sarwat Olvera Location: Telemetry/MedSurg (Inpatient) kb Condition: Fair kb Problem: an acute exacerbation kb Symptoms: are unchanged kb Bed/Room Type: Standard Room Assignment: 411(07/29/22 18:28) bd Diagnosis - COPD/ Chronic obstructive pulmonary disease with (acute) exacerbation kb - Acute and chronic respiratory failure with hypercapnia kb Forms: - Medication Reconciliation Form kb - SBAR form kb Signatures: Dispatcher [employer] EDMS Lo Girard, LINEN CONTROLLER-C LINEN CONTROLLER-Ckb Maryanne Guerra Roman, MD MD rn Parker, Tiffany, RN RN tp1 Chiquis Andrew RN RN kr3 Corrections: (The following items were deleted from the chart) 07/29 18:28 14:45 kb bd
--- NOTE | 2022-07-29 14:45 | ER ---
Nurse's Notes [facility] Name: Vikki Zamudio Age: 61 yrs Sex: Female : 1960 Arrival Date: 07/29/2022 Time: 12:21 Bed 30 Private MD: Diagnosis: COPD/ Chronic obstructive pulmonary disease with (acute) exacerbation;Acute and chronic respiratory failure with hypercapnia Presentation: 07/29 12:28 Chief complaint: EMS states: patient was SOB at home so she called EMS. Upon arrival kr3 the patients O2 was 85 on 3 LPM home oxygen. She was put on 4 LPM and it came up to 93. CPAP not being used at home due to malfunction. Dual nebulizer used at home last night. C/O sore throat and nose bleeds. Coronavirus screen: Vaccine status: Patient reports being unvaccinated. Ebola Screen: Patient denies travel to an Ebola-affected area in the 21 days before illness onset. Initial Sepsis Screen: Does the patient meet any 2 criteria?. Initial Sepsis Screen: Does the patient have a suspected source of infection? No. Patient's initial sepsis screen is negative. Risk Assessment: Do you want to hurt yourself or someone else? Patient reports no desire to harm self or others. Onset of symptoms was July 29, 2022. 12:28 Method Of Arrival: EMS kr3 12:28 Acuity: LIZETH 3 kr3 Triage Assessment: 12:34 General: Appears in no apparent distress. uncomfortable, obese, Behavior is calm, kr3 cooperative, appropriate for age. Pain: Complains of pain in throat Pain currently is 10 out of 10 on a pain scale. Historical: - Allergies: 12:34 No Known Allergies; kr3 - PMHx: 12:34 CHF; COPD; GERD; High Cholesterol; Hypercarbia; Hypertension; Hypothyroidism; Panic kr3 Attacks; Sleep Apnea; - PSHx: 12:34 None; kr3 - Immunization history:: Adult Immunizations not up to date. - Social history:: Smoking status: Patient/guardian denies using tobacco, the patient reports quitting approximately 5 years ago. Screenin:53 Abuse screen: Denies threats or abuse. Denies injuries from another. Nutritional tp1 screening: No deficits noted. Tuberculosis screening: No symptoms or risk factors identified. 19:43 Fall Risk No fall in past 12 months (0 pts). No secondary diagnosis (0 pts). IV access tp1 (20 points). Ambulatory Aid- None/Bed Rest/Nurse Assist (0 pts). Gait- Normal/Bed Rest/Wheelchair (0 pts) Mental Status- Oriented to own ability (0 pts). Total Resendiz Fall Scale indicates No Risk (0-24 pts). Assessment: 12:38 General: Appears in no apparent distress. comfortable, Behavior is calm, cooperative. tp1 Pain: Complains of pain in throat Pain does not radiate. Pain currently is 10 out of 10 on a pain scale. Neuro: Level of Consciousness is awake, alert, obeys commands, Oriented to person, place, time, situation. Cardiovascular: Patient's skin is warm and dry. Respiratory: Reports shortness of breath at rest Airway is patent Respiratory effort is even, unlabored, Respiratory pattern is regular, Breath sounds are diminished bilaterally. GI: Abdomen is obese, Patient currently denies diarrhea, nausea, vomiting. : No signs and/or symptoms were reported regarding the genitourinary system. EENT: No signs and/or symptoms were reported regarding the EENT system. Derm: Skin is pink, warm \\T\\ dry. Musculoskeletal: Circulation, motion, and sensation intact. 12:38 Reassessment: PT CO nose bleed due to irritation from O2 therapy via NC. tp1 13:30 Reassessment: Patient appears in no apparent distress at this time. No changes from tp1 previously documented assessment. Patient and/or family updated on plan of care and expected duration. Pain level reassessed. Patient is alert, oriented x 3, equal unlabored respirations, skin warm/dry/pink. 13:31 Reassessment: Provider at bedside. Provider decreased O2 therapy to 3L via NC. tp1 14:20 Reassessment: Respiratory therapist at bedside, BIPAP applied. Respiratory: Patient tp1 placed on BiPAP: Inspiratory Pressure: 18 Expiratory (EPAP) Pressure: 8 FiO2%: 55 Respiratory Rate: 20. 14:43 Reassessment: Patient appears in no apparent distress at this time. No changes from tp1 previously documented assessment. Patient is alert, oriented x 3, equal unlabored respirations, skin warm/dry/pink. resting in bed with eyes closed. 15:45 Reassessment: Patient appears in no apparent distress at this time. No changes from tp1 previously documented assessment. Patient is alert, oriented x 3, equal unlabored respirations, skin warm/dry/pink. Patient denies pain at this time. 16:50 Reassessment: Patient appears in no apparent distress at this time. No changes from tp1 previously documented assessment. Patient is alert, oriented x 3, equal unlabored respirations, skin warm/dry/pink. resting in bed with eyes closed. Patient denies pain at this time. 17:50 Reassessment: Patient appears in no apparent distress at this time. No changes from tp1 previously documented assessment. Patient is alert, oriented x 3, equal unlabored respirations, skin warm/dry/pink. assisted to bedside commode. 18:50 Reassessment: Patient appears in no apparent distress at this time. No changes from tp1 previously documented assessment. Patient and/or family updated on plan of care and expected duration. Pain level reassessed. Patient is alert, oriented x 3, equal unlabored respirations, skin warm/dry/pink. resting in bed with eyes closed. 19:47 Reassessment: report given to Singh CARDONA. tp1 Vital Signs: 12:28 BP 121 / 69; Pulse 77; Resp 24; Temp 98.5; Pulse Ox 92% on 5 lpm NC; Height 5 ft. 9 in. kr3 (175.26 cm); 12:52 Pulse Ox 90% on 4 lpm NC; tp1 12:54 Weight 128.82 kg; tp1 13:28 BP 122 / 65; Pulse 74; Resp 24; Pulse Ox 92% on 5 lpm NC; tp1 13:39 Resp 24; Pulse Ox 92% on 3 lpm NC; tp1 14:42 BP 116 / 61; Pulse 82; Resp 25; Pulse Ox 97% on 55% BiPAP; tp1 16:08 BP 125 / 67; Pulse 68; Resp 22; Pulse Ox 96% on 55% BiPAP; tp1 17:17 BP 123 / 70; Pulse 64; Resp 22; Pulse Ox 96% on 55% BiPAP; tp1 17:45 BP 139 / 79; Pulse 74; Resp 23; Pulse Ox 100% on BiPAP; tp1 19:30 BP 112 / 72; Pulse 64; Resp 22; Pulse Ox 100% on 55% BiPAP; tp1 12:54 Body Mass Index 41.94 (128.82 kg, 175.26 cm) tp1 ED Course: 12:21 Patient arrived in ED. kb 12:21 Lo Girard FNP-C is [facility]. kb 12:21 Donta An MD is Attending Physician. kb 12:30 Mary Kay Christopher, RN is Primary Nurse. tp1 12:34 Triage completed. kr3 12:35 Patient placed in an exam room, on a stretcher. kr3 12:38 Patient has correct armband on for positive identification. Bed in low position. Call tp1 light in reach. 12:51 Chest Single View XRAY In Process Unspecified. EDMS 12:53 Inserted saline lock: 20 gauge in left wrist, using aseptic technique. Blood collected. tp1 13:33 Inserted saline lock: 22 gauge in right antecubital area, using aseptic technique. kr3 Blood collected. 13:38 Flu Sent. tp1 13:38 COVID-19 SARS RT PCR (Document "Date of Onset" if Symptomatic) Sent. tp1 14:44 Sarwat Olvera is Hospitalizing Provider. kb 19:43 No provider procedures requiring assistance completed. Patient admitted, IV remains in tp1 place. Administered Medications: 12:30 Drug: Albuterol 2.5 mg Route: Inhalation; tp1 16:10 Follow up: Response: No adverse reaction tp1 12:30 Drug: AtroVENT (ipratropium) Aerosol 0.5 mg Route: Inhalation; tp1 16:10 Follow up: Response: No adverse reaction tp1 12:48 Drug: SOLU-Medrol (methylPrednisoLONE) 125 mg Route: IVP; Site: left wrist; tp1 16:10 Follow up: Response: No adverse reaction tp1 Medication: 19:43 VIS not applicable for this client. tp1 Outcome: 14:45 Decision to Hospitalize by Provider. kb 20:04 Admitted to Med/surg accompanied by tech, via stretcher, room 411, with oxygen, with tp1 chart, Report called to singh 20:04 Condition: good 20:04 Discharge instructions given to patient, Instructed on the need for admit, Demonstrated understanding of instructions. 20:05 Patient left the ED. tp1 Signatures: Dispatcher [employer] EDMS Lo Girard FNP-C FNP-Mary Kay De Leon, RN RN tp1 Kamran, Chiquis, RN RN kr3 Corrections: (The following items were deleted from the chart) 13:33 13:28 BP 122 / 65; Pulse 74bpm; Resp 24bpm; Pulse Ox 92% 4 lpm Nasal Cannula; tp1 tp1 16:09 14:42 BP 116 / 61; Pulse 82bpm; Resp 25bpm; Pulse Ox 97% RA; tp1 tp1
[2022-07-29 15:51] LABS: Arterial Blood Carboxyhemoglob 1.9 % (0-1.5); Blood Gas Oxyhemoglobin 85.8 % (94-97); Blood O2 Saturation 88.4 % (92-98.5)
--- NOTE | 2022-07-29 16:49 | P.HP ---
Certification for Inpatient Patient admitted to: Inpatient With expected LOS: >2 Midnights Practitioner: I am a practitioner with admitting privileges, knowledge of patient current condition, hospital course, and medical plan of care. Services: Services provided to patient in accordance with Admission requirements found in Title 42 Section 412.3 of the Code of Federal Regulations Patient History Date of Service: 07/29/22 Reason for admission: Shortness of breath History of Present Illness: 61-year-old morbidly obese woman with a history of severe COPD, pulm hypertension, obstructive sleep apnea and obesity hypoventilation syndrome presented to the emergency department with a complaint of progressive shortness of breath. According to report patient was also complaining of sore throat. Arterial blood gas showed respiratory acidosis and carbon dioxide retention. Patient seen on BiPAP, somnolent and could not provide any history. CBC unremarkable, BMP unremarkable except elevated bicarb. Chest x-ray showed volume overload pattern superimposed on chronic interstitial changes. Patient is admitted for further management. Allergies codeine [Codeine] Adverse Reaction (Mild, Verified 02/15/21 08:47) itch Home Medications: Atorvastatin Calcium [Lipitor*] 20 mg PO BEDTIME 10/23/20 Gabapentin 300 mg PO BID 10/23/20 Roflumilast [Daliresp*] 500 mcg PO DAILY 10/23/20 Umeclidinium Brm/Vilanterol Tr [Anoro Ellipta 62.5-25 Mcg INH] 1 puff IN DAILY 10/23/20 clonazePAM [Klonopin*] 0.5 mg PO DAILY PRN 10/23/20 Tramadol HCl [Ultram] 50 mg PO TID PRN 30 Days #60 tablet 11/21/20 Pantoprazole [Protonix Tab*] 40 mg PO DAILY 02/14/21 Ropinirole HCl [Requip*] 1 mg PO BEDTIME 02/14/21 Cetirizine HCl [Zyrtec*] 10 mg PO DAILY PRN #30 tablet 04/18/21 Cholecalciferol (Vitamin D3) [Vitamin D 5,000 IU Cap*] 5,000 unit PO DAILY #30 cap 04/18/21 Zinc Sulfate [Zinc Sulfate*] 220 mg PO DAILY #30 cap 04/18/21 acetaZOLAMIDE [Diamox*] 250 mg PO BID #60 tab 04/18/21 Albuterol Sulfate [Albuterol Sulfate Hfa] 8.5 gm IH TID #1 hfa.aer.ad 04/24/21 Fluconazole 200 mg PO DAILY #7 tablet 05/16/21 Iron Polysaccharide Complex [Polysaccharide Iron] 150 mg PO DAILY #30 capsule 05/16/21 Lidocaine Viscous 2% Soln [Xylocaine Viscous Oral 2%*] 15 ml PO TID PRN #30 udc 05/16/21 predniSONE [Prednisone*] 20 mg PO DAILY #7 tab 08/10/21 Albuterol Neb [Proventil 0.083% Neb Soln] 2.5 mg NEB [id number] #120 amp 07/15/22 Benzocaine/Menthol [Chloraseptic Sore Throat Lozng] 1 shyla PO Q6HP PRN #30 shyla 07/15/22 Benzonatate [Tessalon Perle*] 100 mg PO TID PRN #30 cap 07/15/22 Fluticasone [Flonase 50MCG Nasal [place]*] 1 sprays MINERVA BID #1 btl 07/15/22 Oxymetazoline HCl [Nasal [place]] 5 drop NS PRN PRN #30 ml 07/15/22 - Past Medical/Surgical History Diabetic: No -: Severe COPD, oxygen/steroid dependent,Pulmonary-Dr. Do -: Mild pulmonary hypertension -: Hypothyroidism -: Bipolar disorder -: Hypertension -: Chronic low back pain -: Obstructive sleep apnea -: GERD -: HLD -: GERD -: Appendectomy -: Psychosocial/ Personal History: She lives with a partner. She has 1 child. She is currently disabled. - Family History Father -: Heart disease, Hypertension, Diabetes Notes: from CHF Mother -: Heart disease, Hypertension, Diabetes Notes: from CHF Brother -: Diabetes Sister -: Heart disease, Diabetes Notes: from CHF - Social History Alcohol use: No CD- Drugs: No Caffeine use: Yes Review of Systems is unable to be obtained (Due to altered mental status) Physical Examination - Physical Exam General: In no apparent distress, Other (Somnolent) HEENT: Normocephalic, Other (BiPAP), Sclerae nonicteric Neck: Supple, JVD not distended Respiratory: Diminished (Bilateral), Other (No crackles) Cardiovascular: No edema, Regular rate/rhythm, Normal S1 S2 Capillary refill: <2 Seconds Gastrointestinal: Normal bowel sounds, Soft and benign, Non-distended, No tenderness, Other (Obese abdomen) Musculoskeletal: No swelling, No tenderness Integumentary: No rashes, No cyanosis Neurological: Normal strength at 5/5 x4 extr Lymphatics: No axilla or inguinal lymphadenopathy - Studies Laboratory Data (last 24 hrs) 07/29/22 12:44: Sodium 140, Potassium 4.4, BUN 9, Creatinine 0.80, Glucose 118 H 07/29/22 12:44: WBC 7.20, Hgb 11.0 L, Hct 35.3 L, Plt Count 132 L Microbiology Data (last 24 hrs): 07/29/22 14:48 Throat Group A Streptococcus Rapid Screen - Final 07/29/22 13:36 Nasopharnyx Influenza Type A Antigen Screen - Final 07/29/22 13:36 Nasopharnyx Influenza Type B Antigen Screen - Final Assessment and Plan - Problems (Diagnosis) (1) Acute on chronic respiratory failure with hypoxia and hypercapnia Current Visit: No Status: Acute (2) COPD exacerbation Current Visit: No Status: Acute (3) Metabolic encephalopathy Current Visit: No Status: Acute (4) Obesity hypoventilation syndrome Current Visit: No Status: Acute (5) Sore throat Current Visit: No Status: Acute (6) Obstructive sleep apnea Current Visit: No Status: Chronic - Plan Admit to the medical floor. Continue BiPAP. Treat COPD exacerbation with scheduled bronchodilators, IV steroid. No indication for antibiotics at this time. ENT consult for chronic sore throat. Consult to social service to assess home NIV use. Patient is known for noncompliance with NIV use. - Advance Directives Does patient have a Living Will: Yes Does patient have a Durable POA for Healthcare: Yes Time Spent Managing Pts Care (In Minutes): 70
[2022-07-29] MEDS ORDERED: ONDANSETRON 4 MG/2 ML VIAL IV PRN (17:20)
[2022-07-29] MEDS ORDERED: ACETAMINOPHEN 500 MG TAB PO PRN (17:20)
[2022-07-29] MEDS ORDERED: HEPARIN 5000 UNIT/ML 1 ML VIAL SQ SCH (17:20)
[2022-07-29] MEDS ORDERED: METHYLPREDNISOLONE 40 MG INJ IV SCH (18:00)
[2022-07-29] MEDS: IPRATROPIUM BROM 0.5MG/2.5ML NEB SCH (20:30)
[2022-07-29] MEDS: ALBUTEROL 2.5 MG/3 ML NEB SOL NEB SCH (20:30)
[2022-07-30] MEDS: IPRATROPIUM BROM 0.5MG/2.5ML NEB SCH ×4 (02:40→19:45)
[2022-07-30] MEDS: ALBUTEROL 2.5 MG/3 ML NEB SOL NEB SCH ×4 (02:40→19:45)
[2022-07-30 03:14] LABS: Absolute Lymphocytes (CBC) 0.5 K/uL (0.7-4.9); Hematocrit 32.9 % (36.0-45.0); Lymphocytes % 14.3 % (15.3-44.8); MCV 87.3 fL (80-100); MPV 7.3 fL (7.6-11.3); RBC Red Blood Cell Count 3.77 M/uL (3.86-4.86)
[2022-07-30 03:35] LABS: Albumin 2.8 g/dL (3.4-5.0); Bilirubin Total 0.5 mg/dL (0.2-1.0); Magnesium 2.3 mg/dL (1.8-2.4); Potassium 4.3 mmol/L (3.5-5.1); Protein, Total 6.6 g/dL (6.4-8.2)
[2022-07-30] MEDS: BENZONATATE 100 MG CAP PO PRN (04:26)
[2022-07-30] MEDS: METHYLPREDNISOLONE 40 MG INJ IV SCH ×2 (04:27→09:20)
[2022-07-30 05:16] LABS: Specific Gravity 1.025 (1.005-1.030); Urine Bacteria <20 /HPF (<20); Urine Bilirubin NEGATIVE (Negative); Urine Blood Negative (Negative); Urine Clarity Clear (Clear); Urine Color Yellow (Yellow); Urine Glucose NEGATIVE (Negative); Urine Mucus Slight /HPF (None Seen); Urine Protein 1+ (Negative); Urine Urobilinogen Normal (Normal)
[2022-07-30] MEDS ORDERED: HEPARIN 5000 UNIT/ML 1 ML VIAL SQ SCH (06:00)
[2022-07-30 06:18] VITALS: BMI 43.3
--- NOTE | 2022-07-30 12:40 | P.CNS ---
Date of Consult: 07/30/22 Reason for Consult: Chronic respiratory failure Chief Complaint: Sore throat History of Present Illness: Patient is 61 years of age she has chronic hypoxic respiratory failure in addition to morbid obesity admitted complaining of unable to swallow sore throat for the past 3 weeks tried Augmentin and [id number] lozenges no relief has become progressively worse [place] status is stable patient was recently prescribed a noninvasive ventilator pliant with her medication Allergies codeine [Codeine] Adverse Reaction (Mild, Verified 02/15/21 08:47) itch Home Medications: Umeclidinium Brm/Vilanterol Tr [Anoro Ellipta 62.5-25 Mcg INH] 1 puff IN DAILY 10/23/20 clonazePAM [Klonopin*] 0.5 mg PO DAILY PRN 10/23/20 Fluticasone [Flonase 50MCG Nasal [place]*] 1 sprays MINERVA BID #1 btl 07/15/22 Amoxicillin/Potassium Clav [Amox-Clav 500-125 mg Tablet] 1 tab PO Q8H 07/30/22 Aspirin [Aspirin EC 81 MG] 1 tab PO DAILY 07/30/22 Atorvastatin Calcium [Lipitor*] 1 tab PO DAILY 07/30/22 Benzonatate [Tessalon Perle*] 1 cap PO TID PRN 07/30/22 Levothyroxine [Synthroid*] 1 tab PO DAILY 07/30/22 Roflumilast [Daliresp] 1 tab PO DAILY 07/30/22 Ropinirole HCl [Requip*] 1 tab PO BEDTIME 07/30/22 acetaZOLAMIDE [Acetazolamide] 1 tab PO DAILY 07/30/22 - Past Medical/Surgical History Diabetic: No -: Severe COPD, oxygen/steroid dependent,Pulmonary-Dr. Do -: Mild pulmonary hypertension -: Hypothyroidism -: Bipolar disorder -: Hypertension -: Chronic low back pain -: Obstructive sleep apnea -: GERD -: HLD -: GERD -: Appendectomy -: Psychosocial/ Personal History: She lives with a partner. She has 1 child. She is currently disabled. - Family History Father Medical History: Heart disease, Hypertension, Diabetes Notes: from CHF Mother Medical History: Heart disease, Hypertension, Diabetes Notes: from CHF Brother Medical History: Diabetes Sister Medical History: Heart disease, Diabetes Notes: from CHF - Social History Smoking Status: Unknown if ever smoked Alcohol use: No CD- Drugs: No Caffeine use: Yes Place of Residence: Home Review of Systems General: Weakness ENT: Throat Pain Respiratory: Shortness of Breath Physical Examination Temp Pulse Resp BP Pulse Ox 97.2 F 60 24 H 133/69 94 07/30/22 10:25 07/30/22 10:25 07/30/22 10:25 07/30/22 10:25 07/30/22 10:25 General: Alert, In no apparent distress, Oriented x3 Respiratory: Clear to auscultation bilaterally, Diminished Cardiovascular: No edema, Normal pulses, Regular rate/rhythm, Normal S1 S2 Laboratory Data (last 24 hrs) 07/29/22 12:44: Sodium 140, Potassium 4.4, BUN 9, Creatinine 0.80, Glucose 118 H 07/29/22 12:44: WBC 7.20, Hgb 11.0 L, Hct 35.3 L, Plt Count 132 L - Problems (1) Odynophagia Current Visit: Yes Status: Acute Plan: Patient is 61 years of age has been complaining of a sore throat for the past 3 weeks has difficulty swallow dry Augmentin no relief came to the emergency room some burning in the back of her throat ENT consult (2) Chronic respiratory failure Current Visit: Yes Status: Acute Plan: Patient has chronic hypoxic hypercapnic respiratory failure is currently stable compliant with her medication at home patient to come and adjust her NIV to increase pressure support reduce the level of the pain chest x-ray shows some interstitial changes patient is currently stable Qualifiers: Respiratory failure complication: hypoxia and hypercapnia Qualified Code(s): J96.11 - Chronic respiratory failure with hypoxia; J96.12 - Chronic respiratory failure with hypercapnia
[2022-07-30] MEDS: clonazePAM 0.5 MG TAB PO PRN (13:26)
--- NOTE | 2022-07-30 13:57 | EKG ---
Test Date: 2022-07-29 Test Time: 14:16:17 [employer] Stripper: TP MEASUREMENT RESULTS: Intervals: Rate: 95 CA: 192 QRSD: 86 QT: 366 QTc: 459 [place]: P: 46 CA: 192 QRS: 80 T: 65 INTERPRETIVE STATEMENTS: Sinus rhythm with marked sinus arrhythmia with premature atrial complexes Otherwise normal ECG Compared to ECG 07/08/2022 14:45:48 Atrial premature complex(es) now present Myocardial infarct finding no longer present Electronically Signed On 07-30-22 13:55:46 [employer] by Maykel Posey
[2022-07-30] MEDS ORDERED: INFLUENZA VACCINE (for 6+ mo) 0.5 ML DOSE IMVAC ONE (18:00)
--- NOTE | 2022-07-30 20:51 | P.PN ---
Date of Service: 07/30/22 Subjective: slight improvement in respirations continues with sore throat, pain with swallowing ROS: 10 point ROS as noted above, otherwise negative Physical Exam: Gen: NAD, AOx3 HEENT: normal conjunctiva, sclera anicteric CV: regular rate & rhythm, no edema Pulm: diminished bilaterally, on BIPAP Abd: soft, non-tender, non-distended Neuro: normal speech, normal affect, moves all extremities vitals reviewed Problem List acute on chronic respiratory failure with hypoxia and hypercapnia acute on chronic COPD exacerbation Metabolic encephalopathy Obesity hypoventilation syndrome sore throat VIVEK continue BIPAP family to bring patient's NIV from home pulm consulted home health / NIV rep to come by and check /set up machine continue treatment for COPD, bronchodilators, steroid ENT consutled for acute on chronic sore throat unclear etiology remote history of thrush patient is at risk with inhalers, chronic steroids patient with h/o noncompliance VTE: ambulatory Code: full Dispo: home, ~1-2 days Time Spent Managing Pts Care (In Minutes): 35
[2022-07-30] MEDS: predniSONE 10 MG TAB PO SCH (20:57)
[2022-07-30] MEDS: ATORVASTATIN 20 MG TAB PO SCH (20:57)
[2022-07-30] MEDS: ROPINIROLE HCL 1 MG TAB PO SCH (20:57)
[2022-07-30] MEDS: HOME MED 1 EA UNK [FLUTICASONE 50MCG NASAL SPRAY] NAS SCH (21:00)
[2022-07-31] MEDS: ALBUTEROL 2.5 MG/3 ML NEB SOL NEB SCH ×4 (01:25→20:05)
[2022-07-31] MEDS: IPRATROPIUM BROM 0.5MG/2.5ML NEB SCH ×4 (01:25→20:05)
[2022-07-31] MEDS: BENZONATATE 100 MG CAP PO PRN (03:35)
[2022-07-31 05:51] LABS: Magnesium 2.1 mg/dL (1.8-2.4); Potassium 4.3 mmol/L (3.5-5.1)
[2022-07-31] MEDS: LEVOTHYROXINE SOD 0.088 MG TAB PO SCH (06:06)
[2022-07-31] MEDS: acetaZOLAMIDE 250 MG TAB PO SCH (08:38)
[2022-07-31] MEDS: predniSONE 10 MG TAB PO SCH ×2 (08:38→20:43)
[2022-07-31] MEDS: HOME MED 1 EA UNK (Umeclidinium Brm/Vilanterol Tr [Anoro Ellipta 62.5-25 Mcg Inh] Blst.W.D IH SCH (08:38)
[2022-07-31] MEDS: ROFLUMILAST 500 MCG TABLET PO SCH (08:38)
[2022-07-31] MEDS: clonazePAM 0.5 MG TAB PO PRN (08:38)
[2022-07-31] MEDS: HOME MED 1 EA UNK [FLUTICASONE 50MCG NASAL SPRAY] NAS SCH ×2 (08:40→20:44)
--- NOTE | 2022-07-31 16:11 | P.PN ---
Date of Service: 07/31/22 Subjective: improvement in respirations slept well with home NIV continues with sore throat, pain with swallowing ROS: 10 point ROS as noted above, otherwise negative Physical Exam: Gen: NAD, AOx3 HEENT: normal conjunctiva, sclera anicteric; no oral lesions seen CV: regular rate & rhythm, no edema Pulm: diminished bilaterally, on BIPAP Abd: soft, non-tender, non-distended Neuro: normal speech, normal affect, moves all extremities vitals reviewed Problem List acute on chronic respiratory failure with hypoxia and hypercapnia acute on chronic COPD exacerbation Metabolic encephalopathy Obesity hypoventilation syndrome sore throat VIVEK continue home NIV pulm consulted home health / NIV rep angelia by 07/30- to check /set up machine continue treatment for COPD, bronchodilators, steroid ENT consutled for acute on chronic sore throat unclear etiology remote history of thrush patient is at risk with inhalers, chronic steroids pt reports acute on chronic sinus inflammation / congestion possible postnasal drip component continue home flonase ENT consulted patient with h/o noncompliance VTE: ambulatory Code: full Dispo: home, ~1-2 days Time Spent Managing Pts Care (In Minutes): 35
[2022-07-31] MEDS: ATORVASTATIN 20 MG TAB PO SCH (20:43)
[2022-07-31] MEDS: ROPINIROLE HCL 1 MG TAB PO SCH (20:43)
[2022-07-31] MEDS ORDERED: FAMOTIDINE 20 MG/2 ML VIAL IV ONE (20:58)
[2022-08-01] MEDS: IPRATROPIUM BROM 0.5MG/2.5ML NEB SCH ×2 (01:15→08:20)
[2022-08-01] MEDS: ALBUTEROL 2.5 MG/3 ML NEB SOL NEB SCH ×2 (01:15→08:20)
[2022-08-01 03:43] LABS: MPV 7.5 fL (7.6-11.3); RBC Red Blood Cell Count 3.53 M/uL (3.86-4.86)
[2022-08-01 03:51] LABS: Potassium 4.3 mmol/L (3.5-5.1)
[2022-08-01] MEDS: LEVOTHYROXINE SOD 0.088 MG TAB PO SCH (06:28)
[2022-08-01] MEDS: clonazePAM 0.5 MG TAB PO PRN (06:28)
[2022-08-01 08:08] VITALS: BP 143/68; TEMP 97.9
[2022-08-01] MEDS: acetaZOLAMIDE 250 MG TAB PO SCH (08:38)
[2022-08-01] MEDS: HOME MED 1 EA UNK (Umeclidinium Brm/Vilanterol Tr [Anoro Ellipta 62.5-25 Mcg Inh] Blst.W.D IH SCH (08:38)
[2022-08-01] MEDS: predniSONE 10 MG TAB PO SCH (08:38)
[2022-08-01] MEDS: ROFLUMILAST 500 MCG TABLET PO SCH (08:38)
[2022-08-01] MEDS: HOME MED 1 EA UNK [FLUTICASONE 50MCG NASAL SPRAY] NAS SCH (08:40)
[2022-08-01] MEDS ORDERED: FAMOTIDINE 20 MG TAB PO SCH (09:00)
[2022-08-01 11:21] VITALS: O2SAT 93
--- NOTE | 2022-08-01 12:51 | P.PN ---
Subjective Date of Service: 08/01/22 Chief Complaint: Sore throat Subjective: Improving (Patient is doing better patient is an IV was adjusted last night is tolerating it much better) Review of Systems General: Weakness ENT: Throat Pain Respiratory: Cough, Shortness of Breath Physical Examination - Vital Signs Temperature: 97.9 F Blood Pressure: 143/68 Pulse: 74 Respirations: 18 Pulse Ox (%): 91 - Physical Exam General: Alert, In no apparent distress, Oriented x3 Respiratory: Diminished Cardiovascular: No edema, Regular rate/rhythm - Studies Microbiology Data (last 24 hrs): 07/29/22 14:48 Throat Culture & Sensitivity - Final NORMAL UPPER RESPIRATORY WINSOME GROWN. Assessment And Plan - Current Problems (Diagnosis) (1) Odynophagia Status: Acute Plan: Patient still has some discomfort in her throat by ENT they recommend an outpatient laryngoscopy and while I agree treatment with some Diflucan for 7 days high risk for Kasie infection due to steroids been no change in her voice denies any dysphagia (2) Chronic respiratory failure Status: Acute Plan: Doing well compliant NIV has been adjusted patient has been tolerating it much better medication list reviewed stable for discharge Qualifiers: Respiratory failure complication: hypoxia and hypercapnia Qualified Code(s): J96.11 - Chronic respiratory failure with hypoxia; J96.12 - Chronic respiratory failure with hypercapnia
--- NOTE | 2022-08-01 22:06 | P.DS ---
Admission Date: 07/29/22 Discharge Date: 08/01/22 Disposition: ROUTINE DISCHARGE Reason for Admission: Sore throat Consultations: Pulmonology - Dr. Do Brief History of Present Illness: 61-year-old morbidly obese woman with a history of severe COPD, pulm hypertension, obstructive sleep apnea and obesity hypoventilation syndrome presented to the emergency department with a complaint of progressive shortness of breath. According to report patient was also complaining of sore throat. Arterial blood gas showed respiratory acidosis and carbon dioxide retention. Patient seen on BiPAP, somnolent and could not provide any history. CBC unremarkable, BMP unremarkable except elevated bicarb. Chest x-ray showed volume overload pattern superimposed on chronic interstitial changes. Patient is admitted for further management. Hospital Course: Problem List acute on chronic respiratory failure with hypoxia and hypercapnia acute on chronic COPD exacerbation Metabolic encephalopathy Obesity hypoventilation syndrome sore throat VIVEK Patient presented with shortness of breath and sore throat. She was recently set up with an NIV at home and didn't feel it was working properly. Pulmonology and ENT were consulted She was treated with steroids, nebulizers, and bipap. Her NIV was brought from home and settings adjusted. She did well on her home NIV while hospitalized. Patient was deemed stable for discharge home, with empiric treatment for possible esophageal thrush with diflucan after discussion with stock preparer. ENT, Dr. Joseph, evaluated the patient on 07/31, and did not note any oropharyngeal lesions on bedside exam. Given history and acute on chronic symptoms, recommended evaluation by flexible laryngoscopy as outpatient. Patient had improvement of her sore throat, and was tolerating regular foods with some discomfort. Discussed use of nasal saline spray daily Follow up: PCP within 1 week Pulmonology in 1-2 weeks ENT in next few weeks Vital Signs/Physical Exam: Temp Pulse Resp BP Pulse Ox 97.9 F 74 18 143/68 H 91 08/01/22 12:51 08/01/22 12:51 08/01/22 12:51 08/01/22 12:51 08/01/22 12:51 Physical Exam: Gen: NAD, AOx3 HEENT: normal conjunctiva, sclera anicteric; no oral lesions seen CV: regular rate & rhythm, no edema Pulm: diminished bilaterally, on BIPAP Abd: soft, non-tender, non-distended Neuro: normal speech, normal affect, moves all extremities Laboratory Data at Discharge: WBC 5.30 K/uL (4.3-10.9) 08/01/22 02:58 Hgb 9.9 g/dL (12.0-15.0) L 08/01/22 02:58 Hct 30.0 % (36.0-45.0) L 08/01/22 02:58 Plt Count 157 K/uL (152-406) 08/01/22 02:58 Sodium 139 mmol/L (136-145) 08/01/22 02:58 Potassium 4.3 mmol/L (3.5-5.1) 08/01/22 02:58 BUN 27 mg/dL (7-18) H 08/01/22 02:58 Creatinine 0.97 mg/dL (0.55-1.3) 08/01/22 02:58 Glucose 146 mg/dL (74-106) H 08/01/22 02:58 Phosphorus 3.0 mg/dL (2.5-4.9) 07/30/22 02:54 Magnesium 2.1 mg/dL (1.8-2.4) 07/31/22 03:19 Total Bilirubin 0.5 mg/dL (0.2-1.0) 07/30/22 02:54 AST 7 U/L (15-37) L 07/30/22 02:54 ALT 15 U/L (12-78) 07/30/22 02:54 Alkaline Phosphatase 86 U/L (45-117) 07/30/22 02:54 Home Medications: Umeclidinium Brm/Vilanterol Tr [Anoro Ellipta 62.5-25 Mcg INH] 1 puff IN DAILY 10/23/20 clonazePAM [Klonopin*] 0.5 mg PO DAILY PRN 10/23/20 Fluticasone [Flonase 50MCG Nasal [place]*] 1 sprays MINERVA BID #1 btl 07/15/22 Aspirin [Aspirin EC 81 MG] 1 tab PO DAILY 07/30/22 Atorvastatin Calcium [Lipitor*] 1 tab PO DAILY 07/30/22 Benzonatate [Tessalon [place]*] 1 cap PO TID PRN 07/30/22 Levothyroxine [Synthroid*] 1 tab PO DAILY 07/30/22 Roflumilast [Daliresp] 1 tab PO DAILY 07/30/22 Ropinirole HCl [Requip*] 1 tab PO BEDTIME 07/30/22 acetaZOLAMIDE [Acetazolamide] 1 tab PO DAILY 07/30/22 Famotidine [Pepcid] 20 mg PO DAILY 30 Days #30 tab 08/01/22 Fluconazole [Diflucan] 200 mg PO DAILY 14 Days #14 tab 08/01/22 New Medications: Fluconazole [Diflucan] 200 mg PO DAILY 14 Days #14 tab Famotidine [Pepcid] 20 mg PO DAILY 30 Days #30 tab Physician Discharge Instructions: Patient presented with shortness of breath and sore throat. She was recently set up with an NIV at home and didn't feel it was working properly. Pulmonology and ENT were consulted She was treated with steroids, nebulizers, and bipap. Her NIV was brought from home and settings adjusted. She did well on her home NIV whlie hospitalized. Patient was deemed stable for discharge home, with empiric treatment for possible esophageal thrush with diflucan after discussion with stock preparer. ENT, Dr. Joseph, evaluated the patient on 07/31, and did not note any oropharyngeal lesions on bedside exam. Given history and acute on chronic symptoms, recommended evaluation by flexible laryngoscopy as outpatient. Patient had improvement of her sore throat, and was tolerating regular foods with some discomfort. Follow up: PCP within 1 week Pulmonology in 1-2 weeks ENT in next few weeks Followup: Unknown,U [Primary Care Provider] - Time spent managing pt's care (in minutes): 45
--- NOTE | 2022-08-02 10:10 | P.CNS ---
Date of Consult: 07/31/22 I was asked to evaluate the patient in regards to her sore throat. The patient was admitted for shortness of breath and possible COPD exacerbation. In regards to the sore throat, the patient reported that she had had some sore throat for at least 3 weeks and had been treated as an outpatient with oral antibiotics without significant improvement. She does not have any ear pain, difficulty swallowing, hemoptysis, or voice changes. The patient does have a significant history of tobacco use in the past but has been tobacco free for several years. The patient also has complaints of postnasal drainage and was previously evaluated by Dr. Tarun Zhao, ev[facility] operations at [facility] but the details of the work-up and recommendations are not clearly discernible from the patient. The patient's last visit with Dr. Zhao was approximately a year ago. The patient's medical record in regards to past medical history etc. is reviewed without significant changes. Physical exam the patient is in no acute distress she her face is normocephalic and atraumatic. Her pupils are equal round and reactive. Her conjunctive appear quiet. Her external nose and nares on anterior rhinoscopy appear mildly crusted and mildly inflamed, likely associated with chronic nasal cannula. Her lips, teeth, gingiva, buccal mucosa, floor of mouth, and oral tongue all appear unremarkable with no ulcers, lesions, plaques. She has no significant dryness. Her oropharynx demonstrates small residual tonsil tissue but no significant erythema. The posterior pharyngeal wall is not erythematous and there is no obvious exudate or cobblestoning. On palpation, the tonsillar fossa and base of tongue are soft with no areas of induration or point tenderness. Assessment: Sore throat, NOS and history of tobacco use Recommendations: Given the patient's tobacco history I do recommend a flexible laryngoscopy which can be arranged as an outpatient. I do not see any current findings suggestive of or indication for treatment of thrush though the patient has a history of thrush in the past. Following documentation, it was noted that the patient has a managed care Medicaid plan for which both Dr. Joseph and Dr. Bourgeois are out of network. I communicated with Dr. An that outpatient evaluation with Dr. Zhao for assessment of her subacute sore throat would be appropriate.
--- NOTE | 2022-08-02 16:01 | EKG ---
Test Date: 2022-07-29 Test Time: 22:21:17 [place] Department Supervisor: FRIDA MEASUREMENT RESULTS: Intervals: Rate: 64 [place]: 178 QRSD: 88 QT: 426 QTc: 439 [place]: P: 53 [place]: 178 QRS: 69 T: 83 INTERPRETIVE STATEMENTS: Sinus rhythm with marked sinus arrhythmia Low voltage QRS Borderline ECG Compared to ECG 07/29/2022 14:16:17 Low QRS voltage now present Atrial premature complex(es) no longer present Electronically Signed On 08-02-22 15:59:08 [employer] TUTOR by Maykel Posey
== END 2022-08-01 10:04 | disposition home or self-care (01) | DRG 190 ==
LOC: ER 12:19 → ERHOLD 15:09 → 4TH 19:50
PROVIDERS: ADMIT Internal Medicine; ATTEND Hospitalist
PROC: 5A09457 Assistance with Respiratory Ventilation, 24-96 Consecutive Hours, Continuous Positive Airway Pressure (ICD-10-PCS; principal; 2022-07-30)
DX: J44.1 Chronic obstructive pulmonary disease with (acute) exacerbation (principal); G93.41 Metabolic encephalopathy; J96.21 Acute and chronic respiratory failure with hypoxia; J96.22 Acute and chronic respiratory failure with hypercapnia; Z68.41 Body mass index [BMI] 40.0-44.9, adult; E66.2 Morbid (severe) obesity with alveolar hypoventilation; E87.20 Acidosis, unspecified; B37.81 Candidal esophagitis; E78.5 Hyperlipidemia, unspecified; J02.9 Acute pharyngitis, unspecified; E03.9 Hypothyroidism, unspecified; I10 Essential (primary) hypertension; K21.9 Gastro-esophageal reflux disease without esophagitis; G89.29 Other chronic pain; M54.50 Low back pain, unspecified; R13.10 Dysphagia, unspecified; Z88.5 Allergy status to narcotic agent; Z79.82 Long term (current) use of aspirin; Z79.52 Long term (current) use of systemic steroids; Z90.49 Acquired absence of other specified parts of digestive tract; Z99.81 Dependence on supplemental oxygen; Z79.899 Other long term (current) drug therapy; Z87.891 Personal history of nicotine dependence; Z20.822 Contact with and (suspected) exposure to COVID-19
CPT/HCPCS: 36415; 71045; 80048; 80053; 81001; 82805; 83605; 83735; 83880; 84100; 84484; 85025; 85027; 87040; 87070; 87081; 87804; 93005; 94660; 94760; 96374; 99285; J1644; J2920; J2930; J7512; U0003

== ENCOUNTER 2022-09-11 22:41 | Inpatient (IN) | payer OTHER ==
--- OUTSIDE RECORDS SUMMARY | 2022-09-11 22:47 | XMS REPORT | Continuity of Care Document ---
:1960 Author Organization [facility] t Address [address] [place] [address] Care Team Providers Name Role Phone Reena Moran Primary Care Physician Billy Howard Attending Clinician Unavailable JETHRO ZHAO Attending Clinician Unavailable NEGRA DUNAWAY Attending Clinician Unavailable LOAN LEBLANC Attending Clinician Unavailable Negra Gregory Attending Clinician [phone] Sheryl Ca MD Attending Clinician Doctor Unassigned, [place] Attending Clinician Unavailable Jethro Dodge MD Attending Clinician [phone] JETHRO DODGE Attending Clinician Unavailable Christa King MD Attending Clinician CHRISTA KING Attending Clinician Unavailable JESSE ARREDONDO Attending Clinician Unavailable Ronaldo DIETRICH, [place] Oates Attending Clinician David CARDONA, Viviana Person Attending Clinician Jeronimo Hogue MD Attending Clinician Christian DIETRICH, Julian Lockwood Attending Clinician Emelina DIETRICH, Sammie Attending Clinician Jordin DIETRICH, Tyler Attending Clinician Sung DIETRICH, Chu Mayer Attending Clinician [phone] CHU MARIN Attending Clinician Unavailable Kartik CARDONA, Lizbeth Attending Clinician Gita DIETRICH, Annette Attending Clinician ANNETTE CONRAD Attending Clinician Unavailable Edilma Escobar MD Attending Clinician EDILMA ESCOBAR Attending Clinician Unavailable Jethro Zhao MD Attending Clinician Nesha Regalado MD Attending Clinician HESHAM MENDOZA Attending Clinician Unavailable Jordin DIETRICH, Tyler Admitting Clinician TYLER TREVIZO Admitting Clinician Unavailable Annette Conrad MD Admitting Clinician ANNETTE CONRAD Admitting Clinician Unavailable JETHRO ZHAO Admitting Clinician Unavailable Jethro Zhao MD Admitting Clinician HESHAM MENDOZA Admitting Clinician Unavailable Payers Payer Name Policy Type Policy Number Effective Date Expiration Date S harshad [facility] [id number] 2012 PLUS 00:00:00 [place] [id number] [id number] 2019 [facility] 00:00:00 [facility] Problems Condition Condition Condition Status Onset Resolution Last Treating Co mments Source Name Details Category Date Date Treatment Clinician Date Acute on Acute on Disease Active Unive rs chronic chronic 2-17 ity of diastolic diastolic 00:00: Satisha s congestive congestive 00 Me dical heart heart Branch failure failure Respirator Respirator Disease Active U nivers y failure y failure 2-16 ity of 00:00: [address] Obesity Obesity Disease Active Univers (BMI (BMI 9-11 ity of 30-39.9) 30-39.9) 00:00: [address] Branch Tobacco Tobacco Disease [facility] Hypoxemia Hypoxemia Disease [facility] COPD COPD Disease Active [facility] exacerbati exacerbati 6-05 Pema kes on on 00:00: Medical 00 Center Acute Acute Disease Active [facility] hypercapni hypercapni -05 Pema kes c c 00:00: Medical respirator respirator 00 Ce nter y failure y failure [id number] Severe Problem Common chronic Spirit obstructiv - [facility] e [facility] Hypertensi Hypertensi Problem C ommon on on [facility] Hypothyroi Hypothyroi Problem C ommon dism dism [facility] Counseling Tobacco Problem Comm on about abuse Spirit tobacco counseling - CHI use [facility] Hyperlipid Hyperlipid Problem C ommon emia emia, Spirit [facility]ie [facility] [place] Chronic Chronic Problem Common pain pain Spirit syndrome syndrome - [facility] Bipolar Bipolar Problem Common disorder disorder [facility] [id number] Nasal Problem Common bleeding [facility] Essential Essential Problem Com mon hypertensi hypertensi Sp kiley on on - CHI [facility] [id number] History of Problem Co mmon congestive Spirit heart - CHI failure [facility] Pulmonary Pulmonary Problem Com mon hypertensi hypertensi Sp kiley on on, - CHI unspecie [facility] Chronic Chronic Problem Common obstructiv obstructiv Sp kiley e e - [facility] pulmonary pulmonary St disease [facility] unspecifie Medica l d COPD Center type [id number] Morbid Problem Common obesity [facility] [id number] On Problem Common supplement Spirit al oxygen - CHI by nasal [facility] [id number] Body mass Problem Com mon index Spirit (BMI) - [facility] 40.0-44.9, [facility] [id number] CPAP Problem Common (continuou Spirit s positive - CHI airway St pressure) [facility] dependence Medica l [place] [id number] Nasal Problem Common congestion [facility] Vaginal Vaginal Problem Common bleeding bleeding [facility] Congestive Congestive Problem C ommon heart heart Spirit disease disease - [facility] [id number] Pain in Problem Comm on [id number] right Spirit shoulder - CHI [facility] [id number] VIVEK Problem Common (obstructi Spirit ve sleep - CHI apnea) [facility] [id number] Nontraumat Problem C ommon [id number] ic Spirit complete - CHI tear of [facility] rotator Medical cuff [place] [id number] Abnormal Problem Comm on thyroid [facility] function - CHI test [facility] [id number] RLS Problem Common (restless Spirit legs - CHI syndrome) [facility] [id number] 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 - CHI s [facility] [id number] SARS Problem Common pneumonia [facility] [id number] Other Problem Common chronic Spirit pain - [facility] Wears Wears Disease Active Univers partial partial ity of dentures dentures [facility] Allergies, Adverse Reactions, Alerts Allergy [...] Codeine Codeine Active Unknown Common Spirit - CH[facility] Social History Social Habit Start Date Stop Date Quantity Comments Source History of Common Spirit - Tobacco Use [facility] History [facility] University o f Alcohol Frequency [place] M edical Branch History [facility] University o f Alcohol Std [place] Medical Drinks Branch History [facility] o f Alcohol Binge [place] Medic al Branch Exposure to 2022 2022-08-13 Not sure University of SARS-CoV-2 00:00:00 13:48:00 [place] Medical (event) Branch Alcohol intake 2022-08-13 2022-08-13 0 /d University of 00:00:00 00:00:00 [facility] Tobacco use and 2022-06-07 2022-06-07 Smokeless tobacco Un iversity of exposure 00:00:00 00:00:00 non-user [facility] Tobacco Comment 2022-06-07 2022-06-07 1-1.5 packs a day, U niversity of 00:00:00 00:00:00 quit 2018 [facility] Alcohol Comment 2020-11-12 2020-11-12 occasionally Univers ity of 00:00:00 00:00:00 [facility] Sex Assigned At [address] [facility] 00:00:00 00:[facility]:00 [facility] Smoking Status Start Date Stop Date Source Ex-smoker 2022-06-07 00:00:00 2022-06-07 00:00:00 Universi ty of [facility] Medications Ordered Filled Start Stop Current Ordering Indication Dosage Frequency Signature Comments Components Source Medication Medication Date Date Medication? Clinician (SIG) Name Name Diclofenac 2021-09 Yes [id number] Apply to Univers Sodium 1-22 area(s) ity of (VOLTAREN) 00:00: daily. [place] 1 % gel [facility] gabapentin 2021-09 Yes [id number] 100mg Take 1 Univers 100 mg 1-22 capsule by ity of capsule 00:00: mouth in [place] [address] the Medical morning Branch and 1 capsule in the evening. Diclofenac 2021-09 Yes [id number] Apply to Univers Sodium 1-22 area(s) ity of (VOLTAREN) 00:00: daily. [place] 1 % gel 00 [facility] gabapentin 2021-09 Yes [id number] 100mg Take 1 Univers 100 mg 1-22 capsule by ity of capsule 00:00: mouth in [address] Medical morning [place] and 1 capsule in the evening. Diclofenac 2021-09 Yes [id number] Apply to Univers Sodium 1-22 area(s) ity of (VOLTAREN) 00:00: daily. [place] 1 % gel 00 [facility] gabapentin 2021-09 Yes [id number] 100mg Take 1 Univers 100 mg 1-22 capsule by ity of capsule 00:00: mouth in [address] morning [place] and 1 capsule in the evening. Diclofenac 2021-09 Yes [id number] Apply to Univers Sodium 1-22 area(s) ity of (VOLTAREN) 00:00: daily. [place] 1 % gel 00 Medical Branch gabapentin 2021-09 Yes [id number] 100mg Take 1 Univers 100 mg 1-22 capsule by ity of capsule 00:00: mouth in [place] 00 the Medical morning Branch and 1 capsule in the evening. Diclofenac 2021-09 Yes [id number] Apply to Univers Sodium 1-22 area(s) ity of (VOLTAREN) 00:00: daily. [place] 1 % gel Medical Branch gabapentin 2021-09 Yes [id number] 100mg Take 1 Univers 100 mg 1-22 capsule by ity of capsule 00:00: mouth in [place] 00 the Medical morning Branch and 1 capsule in the evening. triamcinolo 2021-09- No [id number] 40mg Univers ne 10-05 ity of acetonide 19:00: 18:04 [place] (KENALOG) 00 :00 Medical injection Branch 40 mg triamcinolo 2021-09- No [id number] 40mg 40 mg, Univers ne 10-05 Intramuscu ity of acetonide 19:00: 18:04 [place], [place]CE, [place] (KENALOG) 00 :00 1 dose, On Medi derrick injection Mon Branch 40 mg 08/05/22 at 1300, Routine triamcinolo 2021-09- No [id number] 40mg Univers ne 10-05 ity of acetonide 19:00: 18:04 [place] (KENALOG) 00 :00 Medical injection Branch 40 mg triamcinolo 2021-09- No [id number] 40mg 40 mg, Univers ne 10-05 Intramuscu ity of acetonide 19:00: 18:04 [place], [place]CE, [place] (KENALOG) 00 :00 1 dose, On Medi derrick injection Mon Branch 40 mg 08/05/22 at 1300, Routine methylPREDN 2021- No [id number] 80mg U nivers ISolone 06-07 ity of acetate 19:30: 18:38 [place] (DEPO-MEDRO 00 :00 Medical L) Branch injection 80 mg methylPREDN 2021- No [id number] 80mg 80 mg, Univers ISolone 06-07 Intramuscu ity o f acetate 19:30: 18:38 lar, ONCE, [place] (DEPO-MEDRO 00 :00 1 dose, On Me dical L) Fri Branch injection 06/07/22 at 80 mg 1430, Routine methylPREDN 2021-0 2021- No [id number] 80mg U nivyenni ISolone 06-07 ity of acetate 19:30: 18:38 [place] (DEPO-MEDRO 00 :00 Medical L) Branch injection 80 mg methylPREDN 2021-0 2021- No [id number] 80mg 80 mg, Univers [facility] 06-07 Intramuscu ity o f acetate 19:30: 18:38 lar, ONCE, [place] (DEPO-MEDRO 00 :00 1 dose, On Me dical L) Fri Branch injection 06/07/22 at 80 mg 1430, Routine Kenalog Kenalog 0 No 40mg Common (Triamcinol (Triamcinol 7-21 S pirit one) one) 00:00: - CHI [facility] Bupivicaine Bupivicaine 2021-0 No 2.5mg Common [place] 7-21 Spirit 00:00: - CHI 00 [facility] Kenalog Kenalog 2021-0 No 40mg Common (Triamcinol (Triamcinol 7-21 S pirit one) one) 00:00: - [facility] Bupivicaine Bupivicaine 2-0 No 2.5mg Common [place] 7-21 Spirit 00:00: - CHI 00 [facility] Kenalog Kenalog 2021-0 No 40mg Common (Triamcinol (Triamcinol 7-21 S pirit one) one) 00:00: - CHI 00 [facility] Bupivicaine Bupivicaine 2021-0 No 2.5mg Common [place] 7-21 Spirit 00:00: - [facility] Kenalog Kenalog 2021-0 No 40mg Common (Triamcinol (Triamcinol 4-27 S pirit one) one) 00:00: - [facility] Lidocaine Lidocaine 2021-0 No 10mg Com mon Spirit 00:00: - CHI 00 [facility] Kenalog Kenalog 2021-0 No 40mg Common (Triamcinol (Triamcinol 4-27 S pirit one) one) 00:00: - [facility] Lidocaine Lidocaine 2-0 No 10mg Com 01-16 Spirit 00:00: - [facility] Kenalog Kenalog 2021-0 No 40mg Common (Triamcinol (Triamcinol 4-27 S pirit one) one) 00:00: - [facility] Lidocaine Lidocaine 2-0 No 10mg Com 01-16 Spirit 00:00: - [facility] Lidocaine Lidocaine 2-0 No 10mg Com 12-06 Spirit 00:00: - [facility] Kenalog Kenalog 2021-0 No 40mg Common (Triamcinol (Triamcinol 3-17 S pirit one) one) 00:00: - [facility] Lidocaine Lidocaine 2-0 No 10mg Com 12-06 Spirit 00:00: - [facility] Kenalog Kenalog 2021-0 No 40mg Common (Triamcinol (Triamcinol 3-17 S pirit one) one) 00:00: - [facility] Lidocaine Lidocaine 2-0 No 10mg Com 12-06 Spirit 00:00: - [facility] Kenalog Kenalog 2021-0 No 40mg Common (Triamcinol (Triamcinol 3-17 S pirit one) one) 00:00: - [facility] carvedilol Yes 3.125mg Take 3.125 Univers (COREG) [...] times Branch daily with meals. traMADol 50 2020-0 Yes 50mg Take 50 mg Univers mg tablet 9-24 by mouth 3 ity of 14:31: (three) [place] 41 times Medical daily. Branch carvedilol 2020-0 Yes 3.125mg Take 3.125 Univers (COREG) 9-24 mg by ity of 3.125 mg 14:31: mouth 2 [place] tablet 41 (two) Medical times Branch daily with meals. traMADol 50 2020-0 Yes 50mg Take 50 mg Univers mg tablet 9-24 by mouth 3 ity of 14:31: (three) [place] 41 times Medical daily. Branch carvedilol 2020-0 Yes 3.125mg Take 3.125 Univers (COREG) 9-24 mg by ity of 3.125 mg 14:31: mouth 2 [place] tablet 41 (two) Medical times Branch daily with meals. traMADol 50 2020-0 Yes 50mg Take 50 mg Univers mg tablet 9-24 by mouth 3 ity of 14:31: (three) [place] 41 times Medical daily. Branch carvedilol 2020-0 Yes 3.125mg Take 3.125 Univers (COREG) 9-24 mg by ity of 3.125 mg 14:31: mouth 2 [place] tablet 41 (two) Medical times Branch daily with meals. traMADol 50 2020-0 Yes 50mg Take 50 mg Univers mg tablet 9-24 by mouth 3 ity of 14:31: (three) [place] 41 times Medical daily. Branch carvedilol 2020-0 Yes 3.125mg Take 3.125 Univers (COREG) 9-24 mg by ity of 3.125 mg 14:31: mouth 2 [place] tablet 41 (two) Medical times Branch daily with meals. traMADol 50 2020-0 Yes 50mg Take 50 mg Univers mg tablet 9-24 by mouth 3 ity of 14:31: (three) [place] 41 times Medical daily. Branch carvedilol 2020-0 Yes 3.125mg Take 3.125 Univers (COREG) 9-24 mg by ity of 3.125 mg 14:31: mouth 2 [place] tablet 41 (two) Medical times Branch daily with meals. traMADol 50 1-0 Yes 50mg Take 50 mg Univers mg tablet 9-24 by mouth 3 ity of 14:31: (three) [place] 41 times Medical daily. Branch carvedilol 0 Yes 3.125mg Take 3.125 Univers (COREG) 9-24 mg by ity of 3.125 mg 14:31: mouth 2 [place] tablet 41 (two) Medical times Branch daily with meals. traMADol 50 2020-0 Yes 50mg Take 50 mg Univers mg tablet 9-24 by mouth 3 ity of 14:31: (three) [place] 41 times Medical daily. Branch carvedilol 0 Yes 3.125mg Take 3.125 Univers (COREG) 9-24 mg by ity of 3.125 mg 14:31: mouth 2 [place] tablet 41 (two) Medical times Branch daily with meals. traMADol 50 2020-0 Yes 50mg Take 50 mg Univers mg tablet 9-24 by mouth 3 ity of 14:31: (three) [place] 41 times Medical daily. Branch carvedilol 0 Yes 3.125mg Take 3.125 Univers (COREG) 9-24 mg by ity of 3.125 mg 14:31: mouth 2 [place] tablet 41 (two) Medical times [place] daily with meals. traMADol 50 2020-0 Yes 50mg Take 50 mg Univers mg tablet 9-24 by mouth 3 ity of 14:31: (three) [place] 41 times Medical daily. Branch carvedilol 0 Yes 3.125mg Take 3.125 Univers (COREG) 9-24 mg by ity of 3.125 mg 14:31: mouth 2 [place] tablet 41 (two) Medical times [place] daily with meals. traMADol 50 2020-0 Yes 50mg Take 50 mg Univers mg tablet 9-24 by mouth 3 ity of 14:31: (three) [place] 41 times Medical daily. Branch carvedilol 0 Yes 3.125mg Take 3.125 Univers (COREG) 9-24 mg by ity of 3.125 mg 14:31: mouth 2 [place] tablet 41 (two) Medical times [place] daily with meals. traMADol 50 2020-0 Yes 50mg Take 50 mg Univers mg tablet 9-24 by mouth 3 ity of 14:31: (three) [place] 41 times Medical daily. Branch DALIRESP 2020-0 Yes Univers 500 mcg 9-22 ity of tablet 00:00: [place] 00 Medical Branch DALIRESP 2020-0 Yes Univers 500 mcg 9-22 ity of tablet 00:00: [place] [facility] 2020-0 Yes Univers 500 mcg 9-22 ity of tablet 00:00: [place] [facility] 2020-0 Yes Univers 500 mcg 9-22 ity of tablet 00:00: [place] [facility] 2020-0 Yes Univers 500 mcg 9-22 ity of tablet 00:00: [place] [facility] 2020-0 Yes Univers 500 mcg 9-22 ity of tablet 00:00: [place] [facility] 2020-0 Yes Univers 500 mcg 9-22 ity of tablet 00:00: [place] [facility] 2020-0 Yes Univers 500 mcg 9-22 ity of tablet 00:00: [place] [facility] 2020-0 Yes Univers 500 mcg 9-22 ity of tablet 00:00: [address] 2020-0 Yes Univers 500 mcg 9-22 ity of tablet 00:00: [place] [facility] 2020-0 Yes Univers 500 mcg 9-22 ity of tablet 00:00: [place] [facility] 2020-0 Yes Univers 500 mcg 9-22 ity of tablet 00:00: [address] predniSONE 2020-0 Yes 10mg Take 10 mg U nivers 10 mg 8-31 by mouth ity of tablet 00:00: daily. [place] [facility] predniSONE 2020-0 Yes 10mg Take 10 mg U nivers 10 mg 8-31 by mouth ity of tablet 00:00: daily. [address] predniSONE 1-0 Yes 10mg Take 10 mg U nivers 10 mg 8-31 by mouth ity of tablet 00:00: daily. [address] predniSONE 1-0 Yes 10mg Take 10 mg U nivers 10 mg 8-31 by mouth ity of tablet 00:00: daily. [place] [facility] predniSONE 2021-0 2022- No 10mg Take 10 mg Univers 10 mg 8-31 11-14 by mouth ity of tablet 00:00: 00:00 daily. [place] 00 :00 [facility] predniSONE 2021-0 2022- No 10mg Take 10 mg Univers 10 mg 8-31 11-14 by mouth ity of tablet 00:00: 00:00 daily. [place] 00 :00 Medical Branch predniSONE 2021-0 Yes TAKE 1 Unive rs 20 mg 8-26 TABLET BY ity of tablet 00:00: MOUTH [place] 00 TWICE Medical DAILY FOR Branch 7 DAYS THEN 1 TABLET FOR 7 DAYS predniSONE Yes TAKE 1 Unive rs 20 mg 8-26 TABLET BY ity of tablet 00:00: MOUTH [place] 00 TWICE Medical DAILY FOR Branch 7 DAYS THEN 1 TABLET FOR 7 DAYS predniSONE Yes TAKE 1 Unive rs 20 mg 8-26 TABLET BY ity of tablet 00:00: MOUTH [place] 00 TWICE Medical DAILY FOR Branch 7 DAYS THEN 1 TABLET FOR 7 DAYS predniSONE Yes TAKE 1 Unive rs 20 mg 8-26 TABLET BY ity of tablet 00:00: MOUTH [place] 00 TWICE Medical DAILY FOR Branch 7 DAYS THEN 1 TABLET FOR 7 DAYS predniSONE 2021- No TAKE 1 Univ ers 20 mg 8-26 11-14 TABLET BY ity of tablet 00:00: 00:00 MOUTH [place] 00 :00 TWICE Medical DAILY FOR Branch 7 DAYS THEN 1 TABLET FOR 7 DAYS predniSONE 2021- No TAKE 1 Univ ers 20 mg 8-26 11-14 TABLET BY ity of tablet 00:00: 00:00 MOUTH [place] 00 :00 TWICE Medical DAILY FOR Branch 7 DAYS THEN 1 TABLET FOR 7 DAYS benzonatate Yes TAKE 1 Univ ers 100 mg 8-25 CAPSULE BY ity of capsule 00:00: MOUTH [place] 00 THREE Medical TIMES Branch DAILY NEEDED FOR COUGH fluconazole Yes 200mg Take 200 U nivers 200 mg 8-25 mg by ity of tablet 00:00: mouth [place] 00 every Medical morning. Branch POLY-IRON Yes Take by Unive rs 150 mg iron 8-25 mouth ity of capsule 00:00: daily. [place] 00 Medical Branch LIDOCAINE Yes TAKE 15ML Uni vers VISCOUS 2 % 8-25 BY MOUTH ity of solution 00:00: THREE [place] 00 TIMES Medical DAILY Branch NEEDED FOR SORE THROAT benzonatate Yes TAKE 1 Univ ers 100 mg 8-25 CAPSULE BY ity of capsule 00:00: MOUTH [place] 00 THREE Medical TIMES Branch DAILY NEEDED FOR COUGH fluconazole Yes 200mg Take 200 U nivers 200 mg 8-25 mg by ity of tablet 00:00: mouth [place] 00 every Medical morning. Branch POLY-IRON 2021-0 Yes Take by Unive rs 150 mg iron 8-25 mouth ity of capsule 00:00: daily. [place] Medical Branch LIDOCAINE 2020-0 Yes TAKE 15ML Uni vers VISCOUS 2 % 8-25 BY MOUTH ity of solution 00:00: THREE [place] TIMES Medical DAILY Branch NEEDED FOR SORE THROAT benzonatate 2020-0 Yes TAKE 1 Univ ers 100 mg 8-25 CAPSULE BY ity of capsule 00:00: MOUTH [place] THREE Medical TIMES Branch DAILY NEEDED FOR COUGH fluconazole 2020-0 Yes 200mg Take 200 U nivers 200 mg 8-25 mg by ity of tablet 00:00: mouth [place] every Medical morning. Branch POLY-IRON Yes Take by Unive rs 150 mg iron 8-25 mouth ity of capsule 00:00: daily. [place] Medical Branch LIDOCAINE 2020-0 Yes TAKE 15ML Uni vers VISCOUS 2 % 8-25 BY MOUTH ity of solution 00:00: THREE [place] TIMES Medical DAILY Branch NEEDED FOR SORE THROAT benzonatate 0 Yes TAKE 1 Univ ers 100 mg 8-25 CAPSULE BY ity of capsule 00:00: MOUTH [place] THREE Medical TIMES Branch DAILY NEEDED FOR COUGH fluconazole 2020-0 Yes 200mg Take 200 U nivers 200 mg 8-25 mg by ity of tablet 00:00: mouth [place] every Medical morning. Branch POLY-IRON 2020-0 Yes Take by Unive rs 150 mg iron 8-25 mouth ity of capsule 00:00: daily. [place] Medical Branch LIDOCAINE 2020-0 Yes TAKE 15ML Uni vers VISCOUS 2 % 8-25 BY MOUTH ity of solution 00:00: THREE [place] 00 TIMES Medical DAILY Branch NEEDED FOR SORE THROAT benzonatate 0 Yes TAKE 1 Univ ers 100 mg 8-25 CAPSULE BY ity of capsule 00:00: MOUTH [place] [address] THREE Medical TIMES Branch DAILY NEEDED FOR COUGH fluconazole 2020-0 Yes 200mg Take 200 U nivers 200 mg 8-25 mg by ity of tablet 00:00: mouth [place] [address] every Medical morning. Branch POLY-IRON 2020-0 Yes Take by Unive rs 150 mg iron 8-25 mouth ity of capsule 00:00: daily. [place] Medical Branch LIDOCAINE 2020-0 Yes TAKE 15ML Uni vers VISCOUS 2 % 8-25 BY MOUTH ity of solution 00:00: THREE [place] 00 TIMES Medical DAILY Branch NEEDED FOR SORE THROAT benzonatate 2020-0 Yes TAKE 1 Univ ers 100 mg 8-25 CAPSULE BY ity of capsule 00:00: MOUTH THREE Medical TIMES Branch DAILY NEEDED FOR COUGH fluconazole 2020-0 Yes 200mg Take 200 U nivers 200 mg 8-25 mg by ity of tablet 00:00: mouth [place] every Medical morning. Branch POLY-IRON 2020-0 Yes Take by Unive rs 150 mg iron 8-25 mouth ity of capsule 00:00: daily. [place] Medical Branch LIDOCAINE 2020-0 Yes TAKE 15ML Uni vers VISCOUS 2 % 8-25 BY MOUTH ity of solution 00:00: [place] TIMES Medical DAILY Branch NEEDED FOR SORE THROAT benzonatate 2020-0 Yes TAKE 1 Univ ers 100 mg 8-25 CAPSULE BY ity of capsule 00:00: MOUTH THREE Medical TIMES Branch DAILY NEEDED FOR COUGH fluconazole 2020-0 Yes 200mg Take 200 U nivers 200 mg 8-25 mg by ity of tablet 00:00: mouth [place] every Medical morning. Branch POLY-IRON 2020-0 Yes Take by Unive rs 150 mg iron 8-25 mouth ity of capsule 00:00: daily. Medical Branch LIDOCAINE 2020-0 Yes TAKE 15ML Uni vers VISCOUS 2 % 8-25 BY MOUTH ity of solution 00:00: [place] TIMES Medical DAILY Branch NEEDED FOR SORE THROAT benzonatate 2020-0 Yes TAKE 1 Univ ers 100 mg 8-25 CAPSULE BY ity of capsule 00:00: MOUTH [place] THREE Medical TIMES Branch DAILY NEEDED FOR COUGH fluconazole 2020-0 Yes 200mg Take 200 U nivers 200 mg 8-25 mg by ity of tablet 00:00: mouth [place] every Medical morning. Branch POLY-IRON 2020-0 Yes Take by Unive rs 150 mg iron 8-25 mouth ity of capsule 00:00: daily. Medical Branch LIDOCAINE 2020-0 Yes TAKE 15ML Uni vers VISCOUS 2 % 8-25 BY MOUTH ity of solution 00:00: THREE [place] TIMES Medical DAILY Branch NEEDED FOR SORE THROAT benzonatate 2020-0 Yes TAKE 1 Univ ers 100 mg 8-25 CAPSULE BY ity of capsule 00:00: MOUTH [place] THREE Medical TIMES Branch DAILY NEEDED FOR COUGH fluconazole 2020-0 Yes 200mg Take 200 U nivers 200 mg 8-25 mg by ity of tablet 00:00: mouth [place] every Medical morning. Branch POLY-IRON 2020-0 Yes Take by Unive rs 150 mg iron 8-25 mouth ity of capsule 00:00: daily. [place] Medical Branch LIDOCAINE 2020-0 Yes TAKE 15ML Uni vers VISCOUS 2 % 8-25 BY MOUTH ity of solution 00:00: THREE [place] TIMES Medical DAILY Branch NEEDED FOR SORE THROAT benzonatate 2020-0 Yes TAKE 1 Univ ers 100 mg 8-25 CAPSULE BY ity of capsule 00:00: MOUTH [place] THREE Medical TIMES Branch DAILY NEEDED FOR COUGH fluconazole 2020-0 Yes 200mg Take 200 U nivers 200 mg 8-25 mg by ity of tablet 00:00: mouth [place] every Medical morning. Branch POLY-IRON 2020-0 Yes Take by Unive rs 150 mg iron 8-25 mouth ity of capsule 00:00: daily. [place] Medical Branch LIDOCAINE 2020-0 Yes TAKE 15ML Uni vers VISCOUS 2 % 8-25 BY MOUTH ity of solution 00:00: THREE [place] TIMES Medical DAILY Branch NEEDED FOR SORE THROAT benzonatate 2020-0 Yes TAKE 1 Univ ers 100 mg 8-25 CAPSULE BY ity of capsule 00:00: MOUTH [place] THREE Medical TIMES Branch DAILY NEEDED FOR COUGH fluconazole 2020-0 Yes 200mg Take 200 U nivers 200 mg 8-25 mg by ity of tablet 00:00: mouth [place] every Medical morning. Branch POLY-IRON 2020-0 Yes Take by Unive rs 150 mg iron 8-25 mouth ity of capsule 00:00: daily. [place] [facility] LIDOCAINE 2020-0 Yes TAKE 15ML Uni vers VISCOUS 2 % 8-25 BY MOUTH ity of solution 00:00: THREE [place] TIMES Medical DAILY Branch NEEDED FOR SORE THROAT benzonatate 2020-0 Yes TAKE 1 Univ ers 100 mg 8-25 CAPSULE BY ity of capsule 00:00: MOUTH [place] THREE Medical TIMES Branch DAILY NEEDED FOR COUGH fluconazole 2020-0 Yes 200mg Take 200 U nivers 200 mg 8-25 mg by ity of tablet 00:00: mouth [place] every Medical morning. Branch POLY-IRON 2020-0 Yes Take by Unive rs 150 mg iron 8-25 mouth ity of capsule 00:00: daily. 00 Medical Branch LIDOCAINE Yes TAKE 15ML [...] CAPSULES ity of capsule 00:00: BY MOUTH TWICE Medical DAILY. Branch nystatin Yes SHAKE [...] by ity of tablet 00:00: mouth 2 (two) Medical times Branch daily. ELIQUIS 5 [...] (two) Medical times Branch daily. ELIQUIS 5 0 Yes 5mg Take 5 mg Uni vers [...] (two) Medical times Branch daily. ELIQUIS 5 0 Yes 5mg Take 5 mg Uni vers [...] (two) Medical times Branch daily. ELIQUIS 5 2021-0 Yes 5mg Take 5 mg Uni vers [...] 4-02 20 MG 00:00: 00 Omeprazole Omeprazole 0 No QD Omeprazole 20 MG 20 MG [...] Wheezing solution or Shortness of Breath. albuterol 0 Yes 2{puff} Inhale 2 U nivers (PROAIR 2-25 Puffs ity of HFA) 90 16:35: every 6 [place] mcg/actuati 55 (six) Medical on inhaler hours as Branc h needed for Wheezing or Shortness of Breath. atorvastati 2021-0 Yes 20mg Take 20 mg Univers n 20 mg 2-25 by mouth ity of tablet 16:35: at [place] 55 bedtime. Medical Branch clonazePAM 0 Yes .5mg Take 0.5 Uni vers 0.5 mg 2-25 mg by ity of tablet 16:35: mouth as [place] 55 needed. Medical Branch mckayiu Yes Inhale. Uni vers m-vilantero 2-25 ity [...] mouth as [place] 55 needed. Medical Branch mckayiu Yes Inhale. Uni vers m-vilantero 2-25 ity of l (ANORO 16:35: [place] ELLIPTA) 55 Medical 62.5-25 Branch mcg/actuati on inhalation disk albuterol 0 Yes 2.5mg Inhale 2.5 U nivers (PROVENTIL) 2-25 mg every 4 it y of 2.5 mg /3 16:35: (four) [place] mL (0.083 55 hours as Medica l %) needed for Branch nebulizer Wheezing solution or Shortness of Breath. albuterol 0 Yes 2{puff} Inhale 2 U nivers (PROAIR [...] 62.5-25 Branch mcg/actuati on inhalation disk albuterol 0 Yes 2.5mg Inhale 2.5 U nivers (PROVENTIL) [...] 62.5-25 Branch mcg/actuati on inhalation disk albuterol 0 Yes 2.5mg Inhale 2.5 U nivers (PROVENTIL) [...] 62.5-25 Branch mcg/actuati on inhalation disk guaiFENesin 0 Yes [id number] 100mg Take 5 mL Univers 100 mg/5 mL 2-25 by mouth ity of solution 00:00: every 4 [place] 00 (four) Medical hours as Branch needed for Cough. furosemide 0 Yes [id number] 40mg Take 2 Univers 20 mg 2-25 tablets by ity of tablet 00:00: mouth [place] 00 daily. Medical Branch guaiFENesin 0 Yes [id number] 100mg Take 5 mL Univers 100 mg/5 mL 2-25 by mouth ity of solution 00:00: every 4 [place] 00 (four) Medical hours as Branch needed for Cough. furosemide 0 Yes [id number] 40mg Take 2 Univers 20 mg 2-25 tablets by ity of tablet 00:00: mouth [place] 00 daily. Medical Branch guaiFENesin 2020-0 Yes [id number] 100mg Take 5 mL Univers 100 mg/5 mL 2-25 by mouth ity of solution 00:00: every 4 [place] 00 (four) Medical hours as Branch needed for Cough. furosemide 2020-0 Yes [id number] 40mg Take 2 Univers 20 mg 2-25 tablets by ity of tablet 00:00: mouth [place] 00 daily. Medical Branch guaiFENesin 2020-0 Yes [id number] 100mg Take 5 mL Univers 100 mg/5 mL 2-25 by mouth ity of solution 00:00: every 4 [place] 00 (four) Medical hours as Branch needed for Cough. furosemide 2020-0 Yes [id number] 40mg Take 2 Univers 20 mg 2-25 tablets by ity of tablet 00:00: mouth [place] 00 daily. Medical Branch guaiFENesin 2020-0 Yes [id number] 100mg Take 5 mL Univers 100 mg/5 mL 2-25 by mouth ity of solution 00:00: every 4 [place] 00 (four) Medical hours as Branch needed for Cough. furosemide 2020-0 Yes [id number] 40mg Take 2 Univers 20 mg 2-25 tablets by ity of tablet 00:00: mouth [place] 00 daily. Medical Branch guaiFENesin 2020-0 Yes [id number] 100mg Take 5 mL Univers 100 mg/5 mL 2-25 by mouth ity of solution 00:00: every 4 [place] 00 (four) Medical hours as Branch needed for Cough. furosemide 2020-0 Yes [id number] 40mg Take 2 Univers 20 mg 2-25 tablets by ity of tablet 00:00: mouth [place] 00 daily. Medical Branch guaiFENesin 2020-0 Yes [id number] 100mg Take 5 mL Univers 100 mg/5 mL 2-25 by mouth ity of solution 00:00: every 4 [place] 00 (four) Medical hours as Branch needed for Cough. furosemide 2020-0 Yes [id number] 40mg Take 2 Univers 20 mg 2-25 tablets by ity of tablet 00:00: mouth [place] 00 daily. Medical Branch guaiFENesin 2020-0 Yes [id number] 100mg Take 5 mL Univers 100 mg/5 mL 2-25 by mouth ity of solution 00:00: every 4 [place] 00 (four) Medical hours as Branch needed for Cough. furosemide 2020-0 Yes [id number] 40mg Take 2 Univers 20 mg 2-25 tablets by ity of tablet 00:00: mouth [place] 00 daily. Medical Branch guaiFENesin 2020-0 Yes [id number] 100mg Take 5 mL Univers 100 mg/5 mL 2-25 by mouth ity of solution 00:00: every 4 [place] 00 (four) Medical hours as Branch needed for Cough. furosemide 2020-0 Yes [id number] 40mg Take 2 Univers 20 mg 2-25 tablets by ity of tablet 00:00: mouth [place] 00 daily. Medical Branch guaiFENesin 2020-0 Yes [id number] 100mg Take 5 mL Univers 100 mg/5 mL 2-25 by mouth ity of solution 00:00: every 4 [place] 00 (four) Medical hours as Branch needed for Cough. furosemide 2020-0 Yes [id number] 40mg Take 2 Univers 20 mg 2-25 tablets by ity of tablet 00:00: mouth [place] 00 daily. Medical Branch guaiFENesin 2020-0 Yes [id number] 100mg Take 5 mL Univers 100 mg/5 mL 2-25 by mouth ity of solution 00:00: every 4 [place] 00 (four) Medical hours as Branch needed for Cough. furosemide 2020-0 Yes [id number] 40mg Take 2 Univers 20 mg 2-25 tablets by ity of tablet 00:00: mouth [place] 00 daily. Medical Branch guaiFENesin 2020-0 Yes [id number] 100mg Take 5 mL Univers 100 mg/5 mL 2-25 by mouth ity of solution 00:00: every 4 [place] 00 (four) Medical hours as Branch needed for Cough. furosemide 2020-0 Yes [id number] 40mg Take 2 Univers 20 mg 2-25 tablets by ity of tablet 00:00: mouth [place] 00 daily. Medical Branch pantoprazol 2020-0 Yes 40mg Take 1 Univ ers e 40 mg EC 2-21 tablet by ity of tablet 00:00: mouth [place] 00 daily. Medical Branch pantoprazol 2020-0 Yes 40mg Take 1 Univ ers e 40 mg EC 2-21 tablet by ity of tablet 00:00: mouth [place] 00 daily. Medical Branch pantoprazol 2020-0 Yes 40mg Take 1 Univ ers e 40 mg EC 2-21 tablet by ity of tablet 00:00: mouth [place] 00 daily. Medical Branch pantoprazol 2021-0 Yes 40mg Take 1 Univ ers e 40 mg EC 2-21 tablet by ity of tablet 00:00: mouth [place] 00 daily. Medical Branch pantoprazol 1-0 Yes 40mg Take 1 Univ ers e 40 mg EC 2-21 tablet by ity of tablet 00:00: mouth [place] 00 daily. Medical Branch pantoprazol 1-0 Yes 40mg Take 1 Univ ers e 40 mg EC 2-21 tablet by ity of tablet 00:00: mouth 00 daily. Medical Branch pantoprazol 1-0 Yes 40mg Take 1 Univ ers e 40 mg EC 2-21 tablet by ity of tablet 00:00: mouth 00 daily. Medical Branch pantoprazol 1-0 Yes 40mg Take 1 Univ ers e 40 mg EC 2-21 tablet by ity of tablet 00:00: mouth 00 daily. Medical Branch pantoprazol 1-0 Yes 40mg Take 1 Univ ers e 40 mg EC 2-21 tablet by ity of tablet 00:00: mouth 00 daily. Medical Branch pantoprazol 1-0 Yes 40mg Take 1 Univ ers e 40 mg EC 2-21 tablet by ity of tablet 00:00: mouth 00 daily. Medical Branch pantoprazol 1-0 Yes 40mg Take 1 Univ ers e 40 mg EC 2-21 tablet by ity of tablet 00:00: mouth 00 daily. Medical Branch pantoprazol 1-0 Yes 40mg Take 1 Univ ers e 40 mg EC 2-21 tablet by ity of tablet 00:00: mouth 00 daily. Medical Branch gabapentin 2021-0 Yes 300mg Take 1 Univ ers 300 mg 2-20 capsule by ity of capsule 00:00: mouth 2 (two) Medical times Branch daily. melatonin 3 1-0 Yes 6mg Take 2 Univ ers mg tablet 2-20 tablets by ity of 00:00: mouth at bedtime. Medical Branch gabapentin 2021-0 Yes 300mg Take 1 Univ ers 300 mg 2-20 capsule by ity of capsule 00:00: mouth 2 (two) Medical times Branch daily. melatonin 3 2021-0 Yes 6mg Take 2 Univ ers mg tablet 2-20 tablets by ity of 00:00: mouth at 00 bedtime. Medical Branch gabapentin 2021-0 Yes 300mg Take 1 Univ ers 300 mg 2-20 capsule by ity of capsule 00:00: mouth 2 () Medical times Branch daily. melatonin 3 2020-0 Yes 6mg Take 2 Univ ers mg tablet 2-20 tablets by ity of 00:00: mouth at [place] [address] bedtime. Medical Branch gabapentin 2021-0 Yes 300mg Take 1 Univ ers 300 mg 2-20 capsule by ity of capsule 00:00: mouth 2 (two) Medical times Branch daily. melatonin 3 2020-0 Yes 6mg Take 2 Univ ers mg tablet 2-20 tablets by ity of 00:00: mouth at [place] [address] bedtime. Medical Branch gabapentin 202-0 Yes 300mg Take 1 Univ ers 300 mg 2-20 capsule by ity of capsule 00:00: mouth 2 () Medical times Branch daily. melatonin 3 2020-0 Yes 6mg Take 2 Univ ers mg tablet 2-20 tablets by ity of 00:00: mouth at [place] [address] bedtime. Medical Branch gabapentin 2020-0 Yes 300mg Take 1 Univ ers 300 mg 2-20 capsule by ity of capsule 00:00: mouth 2 () Medical times Branch daily. melatonin 3 2020-0 Yes 6mg Take 2 Univ ers mg tablet 2-20 tablets by ity of 00:00: mouth at [place] [address] bedtime. Medical Branch gabapentin 2020-0 Yes 300mg Take 1 Univ ers 300 mg 2-20 capsule by ity of capsule 00:00: mouth 2 [place] () Medical times Branch daily. melatonin 3 2020-0 Yes 6mg Take 2 Univ ers mg tablet 2-20 tablets by ity of 00:00: mouth at [place] [address] bedtime. Medical Branch gabapentin 2020-0 Yes 300mg Take 1 Univ ers 300 mg 2-20 capsule by ity of capsule 00:00: mouth 2 () Medical times Branch daily. melatonin 3 1-0 Yes 6mg Take 2 Univ ers mg tablet 2-20 tablets by ity of 00:00: mouth at [place] [address] bedtime. Medical Branch gabapentin 2021-0 Yes 300mg Take 1 Univ ers 300 mg 2-20 capsule by ity of capsule 00:00: mouth 2 [place] (two) Medical times Branch daily. melatonin 3 2020-0 Yes 6mg Take 2 Univ ers mg tablet 2-20 tablets by ity of 00:00: mouth at [place] [address] bedtime. Medical Branch gabapentin 2021-0 Yes 300mg Take 1 Univ ers 300 mg 2-20 capsule by ity of capsule 00:00: mouth 2 [place] (two) Medical times Branch daily. melatonin 3 2021-0 Yes 6mg Take 2 Univ ers mg tablet 2-20 tablets by ity of 00:00: mouth at [place] bedtime. Medical Branch gabapentin 2021-0 Yes 300mg Take 1 Univ ers 300 mg 2-20 capsule by ity of capsule 00:00: mouth 2 [place] (two) Medical times Branch daily. melatonin 3 2021-0 Yes 6mg Take 2 Univ ers mg tablet 2-20 tablets by ity of 00:00: mouth at [place] bedtime. Medical Branch gabapentin 2021-0 Yes 300mg Take 1 Univ ers 300 mg 2-20 capsule by ity of capsule 00:00: mouth 2 [place] (two) Medical times Branch daily. melatonin 3 2020-0 Yes 6mg Take 2 Univ ers mg tablet 2-20 tablets by ity of 00:00: mouth at [place] [address] bedtime. Medical Branch fluticasone 2018- Yes 1{spray Use 1 Un merry propionate 6-24 } [place] in ity o f 50 00:00: each [place] mcg/actuati 00 nostril Medic al on nasal daily. Branch spray fluticasone 2018- Yes 1{spray Use 1 Un merry propionate 6-24 } [place] in ity o f 50 00:00: each [place] mcg/actuati 00 nostril Medic al on nasal daily. Branch spray fluticasone 2018- Yes 1{spray Use 1 Un merry propionate 6-24 } [place] in ity o f 50 00:00: each [place] mcg/actuati 00 nostril Medic al on nasal daily. Branch spray fluticasone 2019-0 Yes 1{spray Use 1 Un merry propionate 6-24 } [place] in ity o f 50 00:00: each [place] mcg/actuati 00 nostril Medic al on nasal daily. Branch spray fluticasone 2018-0 Yes 1{spray Use 1 Un merry propionate 6-24 } [place] in ity o f 50 00:00: each [place] mcg/actuati 00 nostril Medic al on nasal daily. Branch spray fluticasone 2018-0 Yes 1{spray Use 1 Un merry propionate 6-24 } [place] in ity o f 50 00:00: each [place] mcg/actuati 00 nostril Medic al on nasal daily. Branch spray fluticasone 2018-0 Yes 1{spray Use 1 Un merry propionate 6-24 } [place] in ity o f 50 00:00: each [place] mcg/actuati 00 nostril Medic al on nasal daily. Branch spray fluticasone 2018-0 Yes 1{spray Use 1 Un merry propionate 6-24 } [place] in ity o f 50 00:00: each [place] mcg/actuati 00 nostril Medic al on nasal daily. Branch spray fluticasone 2018-0 Yes 1{spray Use 1 Un merry propionate 6-24 } [place] in ity o f 50 00:00: each [place] mcg/actuati 00 nostril Medic al on nasal daily. Branch spray fluticasone 2018-0 Yes 1{spray Use 1 Un merry propionate 6-24 } [place] in ity o f 50 00:00: each [place] mcg/actuati 00 nostril Medic al on nasal daily. Branch spray fluticasone 2018-0 Yes 1{spray Use 1 Un merry propionate 6-24 } [place] in ity o f 50 00:00: each [place] mcg/actuati 00 nostril Medic al on nasal daily. Branch spray fluticasone 2018-0 Yes 1{spray Use 1 Un merry propionate 6-24 } [place] in ity o f 50 00:00: each [place] mcg/actuati 00 nostril Medic al on nasal daily. Branch spray latanoprost 2018-0 Yes 1[drp] Place 1 U nivers 0.005 % 6-23 [place] in ity of ophthalmic 00:00: both eyes [place] drops 00 daily. Medical Branch latanoprost 2018-0 Yes 1[drp] Place 1 U nivers 0.005 % 6-23 Drop in ity of ophthalmic 00:00: both eyes [place] drops 00 daily. Medical Branch latanoprost 2018-0 Yes 1[drp] Place 1 U nivers 0.005 % 6-23 Drop in ity of ophthalmic 00:00: both eyes [place] drops 00 daily. Medical Branch latanoprost 2018-0 Yes 1[drp] Place 1 U nivers 0.005 % 6-23 Drop in ity of ophthalmic 00:00: both eyes [place] drops 00 daily. Medical Branch latanoprost 2018-0 Yes 1[drp] Place 1 U nivers 0.005 % 6-23 Drop in ity of ophthalmic 00:00: both eyes [place] drops 00 daily. Medical Branch latanoprost 2018-0 Yes 1[drp] Place 1 U nivers 0.005 % 6-23 Drop in ity of ophthalmic 00:00: both eyes [place] drops 00 daily. Medical Branch latanoprost 2018-0 Yes 1[drp] Place 1 U nivers 0.005 % 6-23 [place] in ity of ophthalmic 00:00: both eyes [place] drops 00 daily. [facility] Branch latanoprost 0 Yes 1[drp] Place 1 U nivers 0.005 % 6-23 Drop in ity of ophthalmic 00:00: both eyes [place] drops 00 daily. Medical Branch latanoprost 2018-0 Yes 1[drp] Place 1 U nivers 0.005 % 6-23 Drop in ity of ophthalmic 00:00: both eyes [place] drops 00 daily. Medical Branch latanoprost 2018-0 Yes 1[drp] Place 1 U nivers 0.005 % 6-23 Drop in ity of ophthalmic 00:00: both eyes [place] drops 00 daily. [facility] Branch latanoprost 2018-0 Yes 1[drp] Place 1 U nivers 0.005 % 6-23 Drop in ity of ophthalmic 00:00: both eyes [place] drops 00 daily. [facility] Branch latanoprost 0 Yes 1[drp] Place 1 U nivers 0.005 % 6-23 Drop in ity of ophthalmic 00:00: both eyes [place] drops 00 daily. [facility] Kenalog Kenalog 2018-0 No 40mg Common (Triamcinol (Triamcinol 4-25 S pirit one) one) 00:00: - [facility] 00 [facility] Kenalog Kenalog 2018-0 No 40mg Common (Triamcinol (Triamcinol 4-25 S pirit one) one) 00:00: - [facility] 00 [facility] Kenalog Kenalog 2017-0 No 40mg Common (Triamcinol (Triamcinol 4-25 S pirit one) one) 00:00: - [facility] 00 [facility] predniSONE Yes Take 4 [facility] t [...] mouth daily Take by mouth as directed.. azithromyci 2016- Yes 250mg QD Take [address] [facility] 6[facility]07 tablet [facility] (ZITHROMAX) 00:00: (250 mg Med ical 250 MG 00 total) by Center tablet mouth daily Take by mouth as directed.. Aleve Aleve No Aleve Aspirin 81 Aspirin 81 No 1{table QD Aspirin 81 MG MG t} MG Anoro Anoro No 1{puff} QD Anoro Ellipta Ellipta Ellipta 62.5-25 62.5-25 62.5-25 MCG/INH MCG/INH MCG/INH Levothyroxi Levothyroxi No QD Levothyrox ne Sodium [...] t 0.005 % fected_ eye_in_ the_eve gera} Pantoprazol Pantoprazol No 1{table QD Pantoprazo e Sodium 40 e Sodium 40 t} le Sodium MG MG 40 MG rOPINIRole rOPINIRole No QD rOPINIRole HCl 1 MG HCl 1 MG HCl 1 MG traMADol traMADol No 1{table TID traMADol HCl 50 MG HCl 50 MG t_as_ne HCl 50 MG eded} Flonase 50 Flonase 50 No 2{spray QD Flonase 50 MCG/ACT MCG/ACT s_in_ea MCG/ACT ch_nost ril} Atorvastati Atorvastati No QD Atorvastat n Calcium n Calcium in Calcium 20 MG 20 MG 20 MG clonazePAM clonazePAM No 1{table QD clonazePAM 0.5 MG 0.5 MG t_at_be 0.5 MG dtime} Albuterol Albuterol No 1{ml_as QID Albuterol Sulfate (5 Sulfate (5 _needed Sulfate (5 MG/ML) 0.5% MG/ML) 0.5% } MG/ML) 0.5% rOPINIRole rOPINIRole No rOPINIRole HCl 1 MG HCl 1 MG HCl 1 MG Levothyroxi Levothyroxi No Levothyrox ne Sodium ne Sodium ine Sodium 88 MCG 88 MCG 88 MCG Flonase Flonase No Flonase acetaZOLAMI acetaZOLAMI No acetaZOLAM DE 250 MG DE 250 MG GAURAV 250 MG Furosemide Furosemide No 1{table QD Furosemide 20 MG 20 MG t} 20 MG Daliresp Daliresp No 1{table QD Daliresp 500 MCG 500 MCG t} 500 MCG Carvedilol Carvedilol No BID Carvedilol 3.125 MG 3.125 MG 3.125 MG Atorvastati Atorvastati No Atorvastat n Calcium n Calcium in Calcium 20 MG 20 MG 20 MG Vital Signs Vital Name Observation Time Observation Value Comments Source Systolic blood 2022-08-13 20:06:00 158 mm[Hg] Univer sity of pressure [facility] Diastolic blood 2022-08-13 20:06:00 100 mm[Hg] Unive rsity of pressure [facility] Heart rate 2022-08-13 20:06:00 89 /min [facility] [place] [facility] Respiratory rate 2022-08-13 20:06:00 16 /min Univ ersity of [facility] Body height 2022-08-13 20:06:00 175.3 cm Universi ty of [place] [facility] Body weight 2022-08-13 20:06:00 130.636 kg [facility] [place] [facility] BMI 2022-08-13 20:06:00 42.53 kg/m2 [facility] [place] [facility] Oxygen saturation in 2022-08-13 20:06:00 87 /min University of Arterial blood by [place] [employer] derrick Pulse oximetry Branch Systolic blood 2022-08-05 17:15:00 111 mm[Hg] Univer sity of pressure [place] [facility] Diastolic blood 2022-08-05 17:15:00 73 mm[Hg] Unive rsity of pressure [facility] Heart rate 2022-08-05 17:15:00 97 /min [facility] [place] [facility] Respiratory rate 2022-08-05 17:15:00 26 /min Univ ersity of [facility] Body height 2022-08-05 17:15:00 175.3 cm [facility]i [facility] [place] [facility] Body weight 2022-08-05 17:15:00 130.636 kg [facility] [place] [facility] BMI 2022-08-05 17:15:00 42.53 kg/m2 [facility] [place] [facility] Oxygen saturation in 2022-08-05 17:15:00 86 /min University of Arterial blood by [place] [employer] Pulse oximetry Branch Systolic blood 2022-06-07 18:07:00 153 mm[Hg] Univer sity of pressure [place] [facility] Diastolic blood 2022-06-07 18:07:00 97 mm[Hg] Unive rsity of [facility] Heart rate 2022-06-07 18:07:00 96 /min [facility] Body temperature 2022-06-07 18:07:00 36.39 [facility] height 2022-06-07 18:07:00 175.3 cm [facility] Body weight 2022-06-07 18:07:00 130.636 kg [facility] BMI 2022-06-07 18:07:00 42.53 kg/m2 [facility] height 2022-05-07 14:40:00 69 [in_i] [facility] weight 2022-05-07 14:40:00 282 [lb_av] [facility] temperature 2022-05-07 14:40:00 98.0 [degF] [facility] bmi 2022-05-07 14:40:00 41.64 kg/m2 [facility] oximetry 2022-05-07 14:40:00 96 % [facility] respiratory rate 2022-05-07 14:40:00 16 /min [facility] blood pressure 2022-05-07 14:40:00 132 mm[Hg] Common [facility] - systolic [facility] blood pressure 2022-05-07 14:40:00 86 mm[Hg] Common [facility] - diastolic [facility] Procedures Procedure Date / Time Performing Clinician Source Performed DME/SUPPLY JUSTIFICATION 2022-08-13 06:01:00 Doctor Unassigned, No [facility] Name [facility] XR CERVICAL SPINE 2 VW 2022-08-05 17:43:18 Calos Dunaway [facility] XR SHOULDER 2+ VW RIGHT 2022-08-05 17:43:18 [facility] FOR 2022-08-05 17:20:37 Doctor Unassigned, No [facility] DIAGNOSIS AND TREATMENT [facility] ASSIGNMENT OF BENEFITS 2022-08-05 17:02:56 Doctor Unassigned, No [facility] XR SHOULDER 2+ VW RIGHT 2022-06-07 18:28:[address] [facility] Encounters Start End Encounter Admission Attending Care Care Encounter Source Date/Time Date/Time Type Type Clinicians Facility Department ID 2022-09-03 Outpatient [place], STLMLC [facility] [id number] Common 14:13:02 [facility] 2022-07-30 Outpatient [place], STLMLC [facility] [id number] Common 15:03:01 [facility] 2022-05-07 Outpatient Howard, STLC [facility] [id number] Common 14:36:03 [facility] 2022-10-21 2022-10-21 Outpatient R HILLARY [facility] [id number] Univers 13:00:00 13:00:00 keisha BAKER [facility] 2022-10-15 2022-10-15 [facility] [id number] Univers 14:00:00 14:00:00 LOAN [facility] 2022-09-10 2022-09-10 [facility] [id number] Univers 16:00:00 16:00:00 JETHRO [facility] 2022-09-06 2022-09-06 Telephone HarmonyRakel [facility] [id number] Univers 00:00:00 00:00:00 MAXI baker [id number] ity of [facility] CARE [id number] [facility] AT [phone] [address] 2022-09-06 2022-09-06 [facility] [id number] Univers 00:00:00 00:00:00 Sheryl MULTISPEC [id number] ity of [id number] [phone] [facility] AND [place] [address] Branch DIABETES CLINIC 2022-08-13 2022-08-13 Outpatient R [facility] [id number] Univers 14:00:00 15:50:10 ASHLEY ity of [facility] 2022-08-13 2022-08-13 Office Sheryl Ca [facility] [id number] Univers 14:00:00 15:50:10 Visit Enriqueta [facility] 350 .[id number] ity of [facility] [id number] [place] [address] [phone] [facility] AND [place] 011 Branch DIABETES CLINIC 2022-08-13 2022-08-13 Orders Doctor THI [id number] Univers 00:00:00 00:00:00 Only Unassigned, VIRGILIO [id number] ity of [place] [facility] [id number] [place] [address] [phone] [facility] 009 Branch 2022-08-07 2022-08-07 (TEL) STLMLC STLMLC [id number] Co mmon 00:00:00 00:00:00 [facility] 2022-08-05 2022-08-05 Hospital [facility] [id number] Univers 11:21:07 23:59:00 Encounter [facility] [id number] ity of [facility] [id number] [place] [address] [phone] [facility] PRIMARY & 809 Branch SPECIALTY CARE 2022-08-05 2022-08-05 Office [facility] [place] [id number] Univers 11:40:00 12:00:00 Visit [facility] [id number] it y of [facility] 4.2.7.2.[address] [place] [address] [phone] [facility] PRIMARY & 198 Branch SPECIALTY CARE 2022-08-05 2022-08-05 Outpatient R [facility] [id number] Univers 11:40:00 11:40:00 keisha BAKER of [facility] 2022-08-05 2022-08-05 Orders Doctor THI [id number] Univers 00:00:00 00:00:00 Only Unassigned, VIRGILIO [id number] ity of [place] [facility] [id number] Satish as [phone] [address] 2022-07-29 2022-07-29 [id number] Univers 16:00:00 16:00:00 keisha [facility]AKER [place] [facility] [facility] 2022-06-24 2022-06-24 [id number] Univers 11:40:00 11:40:00 keisha BAKER [facility] 2022-06-07 2022-06-07 [facility] 1.2.840.114 [id number] Univers 13:11:58 23:59:00 Encounter Jethro SPECIALTY 350.1.13.10 ity [facility] [phone] [place] terrence HOOK 809 [facility] 2022-06-07 2022-06-07 [facility] 1.2.078.351 [id number] Univers 13:20:00 13:44:39 Visit Jethro SPECIALTY 350.1.13.10 [facility] [place] [phone] [place] terrence HOOK 198 [facility] 2022-06-07 2022-06-07 Outpatient Pepper DODGE [facility] [id number] Univers 13:20:00 13:44:39 JETHRO valdes [facility] 2022-06-07 2022-06-07 Outpatient Pepper DODGE [facility] [id number] Univers 13:20:00 13:44:39 JETHRO valdes [facility] 2022-06-07 2022-06-07 Outpatient Pepper DODGE [facility] [id number] Univers 13:20:00 13:20:00 JETHRO valdes [facility] 2022-05-30 2022-05-30 Outpatient Pepper DODGE [facility] [id number] Univers 13:10:00 13:10:00 JETHRO ity [facility] 2022-05-22 2022-05-22 Orders Doctor THI 1.2.840.114 [id number] Univers 00:00:00 00:00:00 Only Unassigned, VIRGILIO 350.1.13.10 ity of [facility] 4.2.7.2.686 Satish as [phone] [address] 2022-05-07 2022-05-07 [facility]ICE [facility] [id number] Co mmon 00:00:00 00:00:00 VISIT [facility] LEVEL 4 [facility] 2022-05-07 2022-05-07 (TEL) [facility] [id number] Co mmon 00:00:00 00:00:00 [facility] 2022-04-18 2022-04-18 Orders Doctor THI 1.2.840.114 [id number] Univers 00:00:00 00:00:00 Only Unassigned, VIRGILIO 350.1.13.10 ity of [facility] 4.2.7.2.686 Satish as [phone] [address] 2021-06-15 2021-06-15 Office Christa King [facility] 1.2.840.114 [id number] Univers 14:04:32 15:05:28 Visit Salazar Girard 350.1.13.10 it y [facility] [place] [facility] [phone] [facility] [address] 2021-06-15 2021-06-15 Outpatient CHRISTA MEANS [facility] [id number] Univers 14:30:00 14:30:00 ity of [facility] 2021-06-08 2021-06-08 Outpatient CHRISTA MEANS [facility] [id number] Univers 14:00:00 14:00:00 ity of [facility] 2021-06-04 2021-06-04 Outpatient JESSE GOMEZ [facility] [id number] Univers 13:00:00 13:00:00 ity of [facility] 2021-01-25 2021-01-25 Orders Doctor THI 1.2.840.114 [id number] 00:00:00 00:00:00 Only Unassigned, VIRGILIO 350.1.13.10 [facility] 4.2.7.2.686 [id number] 009 2021-01-25 2021-01-25 Orders Doctor THI 1.2.840.114 [id number] [facility] 00:00:00 00:00:00 Only Unassigned, VIRGILIO 350.1.13.10 ity of [facility] 4.2.7.2.686 Satish as [phone] [address] 2021-01-15 2021-01-15 Orders Doctor THI 1.2.840.114 [id number] 00:00:00 00:00:00 Only Unassigned, VIRGILIO 350.1.13.10 [facility] 4.2.7.2.686 [id number] 009 2021-01-15 2021-01-15 Orders Doctor THI 1.2.840.114 [id number] [facility] 00:00:00 00:00:00 Only Unassigned, VIRGILIO 350.1.13.10 ity of [facility] 4.2.7.2.686 Satish as [phone] [address] 2020-11-17 2020-11-17 Jimmy Higgins [facility] 1.2.840.114 [id number] 00:00:00 00:00:00 Management [place] ADDISON 350.1.13.10 [facility] 4.2.7.2.686 [place] [phone] [facility] 2020-11-17 2020-11-17 Transition Molly Hernandez 1.2.840.114 [id number] 00:00:00 00:00:00 of Care Viviana Chiu 350.1.13.10 Vivian 4.2.7.2.686 [id number] [id number] 2020-11-17 2020-11-17 Transition Molly Hernandez 1.2.840.114 [id number] [facility] 00:00:00 00:00:00 of Care Viviana Chiu 350.1.13.10 i ty of [place] [phone] [facility] [address] 2020-11-17 2020-11-17 Case [facility] 1.2.840.114 [id number] Univers 00:00:00 00:00:00 Management [facility] 350.1.13.10 ity of [place].2.[place] [id number] [facility] AND ONEIL [address] [facility] 2020-11-12 2020-11-16 [facility] Jeronimo Hougenie 1.2.840.1 14 [id number] 18:33:00 16:20:00 Encounter Julian Gonzales 350.1.13.10 [facility] 4.2.7.2.686 Sammie Tarango [phone] Tyler Trevizo [address] [place] [address], Chu Moreno Jordin, Tyler Marin, Chu Moreno 2020-11-12 2020-11-16 Inpatient X [facility] [id number] Univers 18:33:00 16:20:00 CHU ity [facility] 2020-11-12 2020-11-16 [facility] 1.2.840.1 14 [id number] Univers 18:33:00 16:20:00 Encounter Julian Gonzales 350.1.13.10 ity of [facility] 4.2.7.2.686 [place] Sammie Tarango [phone] Medical Tyler Trevizo 5 [facility], Chu Moreno Joefrain, Tyler Marin, Chu Moreno 2020-11-14 2020-11-14 Telephone [facility] 1.2.840.114 [id number] 00:00:00 00:00:00 ashley, MAXI 350.1.13.10 [facility] CARE 4.2.7.2.686 CENTER AT [phone] [facility]STER [address] [place] [address] 2020-11-14 2020-11-14 [place] Hillary [facility] 1.2.840.114 [id number] Univers 00:00:00 00:00:00 MAXI baker 350.1.13.10 ity of [place]2.[place] [phone] [place] terrence [address] 2020-11-13 2020-11-13 Transition Molly Verdugo 1.2.840.114 [id number] 00:00:00 00:00:00 of Care Lizbeth Chiu 350.1.13.10 [place]ian 4.2.7.2.686 [id number] 403 2020-11-13 2020-11-13 Transition Molly Verdugo 1.2.840.114 [id number] Univers 00:00:00 00:00:00 of Care Lizbeth Chiu 350.1.13.10 it y of [place]ian 4.2.7.2.686 [facility] [phone] [address] 2020-11-07 2020-11-11 [facility] Jeronimo Hogue [facility] 1.2.840.1 14 [id number] 06:48:00 14:50:00 Encounter Annette Conrad 350.1.13.10 [place] 4.2.7.2.686 [facility] [id number] 0 2020-11-07 2020-11-11 Inpatient X DEEDEE CONRAD [facility] [id number] Univers 06:48:00 14:50:00 ANNETTE ity [facility] 2020-11-07 2020-11-11 [facility] Mykel [facility] 1.2.840.1 14 [id number] Univers 06:48:00 14:50:00 Encounter Annette Conrad 350.1.13.10 ity Jeronimo [place] 4.2[address] [facility] [phone] [place] [address] [address] 2020-07-12 2020-07-12 [facility] HarmonyRakel Ybarra 1.2.840.114 [id number] 11:56:24 23:59:00 Encounter ashley Pediatric 350.1.13.10 [place] and 4.2.7.2.686 Adult [id number] Primary [facility] 2020-07-12 2020-07-12 Hospital Hillary Ybarra 1.2.840.114 [id number] Univers 11:56:24 23:59:00 Encounter ashley Pediatric 350.1.13.10 ity of [place] and [place].2.[place] [phone] [facility] Primary [address] [facility] 2020-07-12 2020-07-12 Office HarmonyTyesha Tate 1.2.840.114 [id number] 11:00:10 13:58:54 Visit ashley Pediatric 350.1.13.10 [place] and 4.2.7.2.686 Adult [id number] Primary [facility] 2020-07-12 2020-07-[address] [facility] 1.2.840.114 [id number] [facility] 11:00:10 13:58:54 Visit ashley Pediatric 350.1.13.10 ity of [place] and [place].2.[place] [id number] [facility] 198 [facility] 2020-07-12 2020-07-12 Outpatient R HARMONYRAKEL [facility] [id number] [facility] 11:00:00 11:00:00 ASHLEY ity of [place] [facility] 2020-07-03 2020-07-03 Orders Doctor NESS 1.2.840.114 [id number] 00:00:00 00:00:00 Only Unassigned, VIRGILIO 350.1.13.10 [facility] 4.2.7.2.686 [id number] 009 2020-07-03 2020-07-03 Orders Doctor THI 1.2.840.114 [id number] Univers 00:00:00 00:00:00 Only Unassigned, VIRGILIO 350.1.13.10 ity of [facility] 4.2.7.2.686 Satish as [phone] [address] 2020-06-02 2020-06-02 Office [facility] 1.2.840.114 [id number] Univers 12:31:11 14:20:12 Visit Edilma Amador 350.1.13.10 ity [facility] [place].2.7.2.[place] [facility] [phone] [place] dical nal [address] [place] [address] 2020-06-02 2020-06-02 Outpatient R ADUM, [facility] [id number] Univers 13:00:00 13:00:00 EDILMA ity [facility] 2020-06-02 2020-06-02 Orders Doctor THI 1.2.840.114 [id number] Univers 00:00:00 00:00:00 Only Unassigned, VIRGILIO 350.1.13.10 ity of [facility] 4.2.7.2.686 Satish [phone] [facility] [address] 2020-05-26 2020-05-26 [facility] [id number] Univers 10:45:00 10:45:00 EDILMA ity [facility] 2020-05-26 2020-05-26 [facility] 1.2.840.114 [id number] Univers 08:07:24 08:37:24 id Visit Edilma Amador 350.1.13.10 ity [facility] 4.2.7.2.686 [facility] [phone] [place] dic[address] 2020-05-12 2020-05-12 Outpatient R ADUM, [facility] [id number] Univers 13:00:00 13:00:00 EDILMA ity of [facility] 2020-04-25 2020-04-25 [facility] 1.2.840.114 [id number] Univers 15:50:23 23:59:00 Encounter Edilma Amador 350.1.13.10 ity [facility] 4.2.7.2.686 [place] [phone] [facility] [address] 2020-04-25 2020-04-25 Outpatient R AD, [facility] [id number] Univers 00:00:00 00:00:00 EDILMA ity [facility] 2020-04-25 2020-04-25 Orders Doctor THI 1.2.840.114 [id number] Univers 00:00:00 00:00:00 Only Unassigned, VIRGILIO 350.1.13.10 ity of [facility] 4.2.7.2.686 Satish as [phone] [address] 2020-04-14 2020-04-14 Office [facility] 1.2.840.114 [id number] Univers 14:15:54 14:56:38 Visit Edilma Amador 350.1.13.10 ity of [place].2.[place] [phone] [place] dical [facility] 134 [facility] 2020-04-14 2020-04-14 Outpatient R [facility] [id number] Univers 13:30:00 13:30:00 EDILMA valdes of [facility] 2020-04-13 2020-04-13 Orders Doctor THI 1.2.840.114 [id number] Univers 00:00:00 00:00:00 Only Unassigned, VIRGILIO 350.1.13.10 ity of [facility] 4.2.7.2.686 Satish as [phone] [address] 2019-11-01 2019-11-01 Telephone [facility] 1.2.840.114 [id number] Univers 00:00:00 00:00:00 Jethro HEALTH 350.1.13.10 it y of [place] 4.2.7.2.686 [facility] s [facility] [id number] [facility] Primary & [address] Specialty Care 2019-10-28 2019-10-28 Telephone [facility] 1.2.840.114 [id number] Univers 00:00:00 00:00:00 Jethro HEALTH 350.1.13.10 it y of [place] 4.2.7.2.686 [facility] s [facility] [phone] [facility] Primary & [address] Specialty Care 2019-10-26 2019-10-26 Office [facility] 1.2.840.114 [id number] Univers 14:08:12 15:44:07 Visit Jethro HEALTH 350.1.13.10 [place] 4.2.7.2.686 [place] [facility] [id number] [facility] Primary & [address] Specialty Care 2019-10-07 2019-10-07 Telephone [facility] 1.2.840.114 [id number] Univers 00:00:00 00:00:00 Jethro SOLISY 350.1.13.10 i ty of [place].7.2.686 [place] [phone] [facility] [address] 2019-10-06 2019-10-06 [facility] [id number] Univers 10:39:27 23:59:00 JETHRO ity of [facility] 2019-10-06 2019-10-06 [facility] Aleida Zhao 1.2.154.162 [id number] Univers 10:39:00 23:59:00 Encounter Jethro Mendez 350.1.13.10 ity of [facility] 4.2.7.2.686 Satish as [phone] [facility] [address] 2019-10-06 2019-10-06 [facility] Aleida Zhao 1.2.024.134 [id number] Univers 09:41:27 16:32:00 Encounter Jethro Mendez 350.1.13.10 ity of [facility] 4.2.7.2.686 Satish as [phone] [facility] [address] 2019-10-06 2019-10-06 Orders Doctor THI 1.2.840.114 [id number] Univers 00:00:00 00:00:00 Only Unassigned, VIRGILIO 350.1.13.10 ity of [facility] 4.2.7.2.686 Satish as [phone] [facility] [address] 2019-05-28 2019-05-28 Office [facility] 1.2.840.114 [id number] Univers 13:10:51 15:03:17 Visit Nesha Amador 350.1.13.10 i ty of [place] 4.2.7.2.686 [place] [facility] [phone] [place] dical nal [address] Building Results Test [...] NOT 1092) ACCURATE CRE ATININE CLEARANCE IN DE EDICTING GLOMERULAR FILT RATION RATE. ESTIMATED GFR [...] 0-0 (BEAKER) (test code = 413) 0.00POCT-GLUCOSE [id number] 17:50:00 Test Item Value Reference Range Interpretation Comments POC-GLUCOSE METER 118 mg/dL 70-110 H TESTED AT [place] [address] ([facility]) (test code = [facility] 1538) 15085 POCT-GLUCOSE [id number] 11:59:00 Test Item Value Reference Range Interpretation Comments POC-GLUCOSE METER 247 mg/dL 70-110 H TESTED AT [place] [address] ([facility]) (test code = [facility] 1538) 03544 POCT-GLUCOSE [id number] 07:54:00 Test Item Value Reference Range Interpretation Comments POC-GLUCOSE METER 141 mg/dL 70-110 H TESTED AT [place] [address] ([facility]) (test code = [facility] 1538) 678[address] CBC W/PLT COUNT & AUTO [id number] 03:45:00 Test Item Value Reference Range Interpretation [...] K/ L 0.00-0.20 (test code = 417) [id number] 03:29:00 Test Item Value Reference Range Interpretation Comments MAGNESIUM (BEAKER) 1.8 mg/dL 1.6-2.6 Specimen slightly (test code = 627) hemolyzed BASIC METABOLIC [id number] 03:29:00 Test Item Value Reference Range Interpretation [...] NOT APPLICABLE FOR DIALYSIS PATIEN TS. POCT-GLUCOSE [id number] 00:05:00 Test Item Value Reference Range Interpretation Comments POC-GLUCOSE METER 117 mg/dL 70-[address] [facility] 6720 (BEAKER) (test code = [facility] [place] 1538) [address] POCT-GLUCOSE [id number] 18:17:00 Test Item Value Reference Range Interpretation Comments POC-GLUCOSE METER 141 mg/dL 70-[address] [facility] 6720 (BEAKER) (test code = [facility] 1538) [address]42 CREATINE KINASE (CK), TOTAL AND [id number] 15:43:00 Test Item Value Reference Range Interpretation Comments CREATINE KINASE TOTAL (BEAKER) 31 U/L 29-200 (test code = 380) CREATINE KINASE-MB (BEAKER) (test 1.3 ng/mL 0.0-6.6 code = 750) CREATINE KINASE-MB INDEX (BEAKER) 4.2 % (test code = 395) Effective 08/09/2014: CK-MB Reference Range ChangeNew: 0.0-6.6 Previous: 0.0-4.9CK-MB Reference Range:<6.7 Normal6.7-10.0 Borderline>10.0 Abnormal BLOOD GAS, [id number] 15:26:00 Test Item Value Reference Range Interpretation [...] (test code = 1819) 35.0 % POCT-GLUCOSE [id number] 11:45:00 Test Item Value Reference Range Interpretation Comments POC-GLUCOSE METER 122 mg/dL 70-[address] [facility] 6720 ([facility]) (test code = [place] 1538) [address]83[address] CREATINE KINASE (CK), TOTAL AND [id number] 10:29:00 Test Item Value Reference Range Interpretation Comments CREATINE KINASE TOTAL ([facility]) 31 U/L 29-200 (test code = 380) CREATINE KINASE-MB ([facility]) (test 1.5 ng/mL 0.0-6.6 code = 750) CREATINE KINASE-MB INDEX ([facility]) 4.8 % (test code = 395) Effective 08/09/2014: CK-MB Reference Range ChangeNew: 0.0-6.6 Previous: 0.0-4.9CK-MB Reference Range:<6.7 Normal6.7-10.0 Borderline>10.0 Abnormal TROPONIN [id number] 10:29:00 Test Item Value Reference Range Interpretation Comments TROPONIN I ([facility]) (test code = 397) < ng/mL 0.00-0.03 [...] failure, acidosis, acute neurological disease, and persistent tachyarrhythmia.[id number] 10:22:00 Test Item Value Reference Range Interpretation Comments PARTIAL THROMBOPLASTIN TIME 22.5 seconds 22.5-36.0 ([facility]) (test code = 760) PROTHROMBIN TIME/[id number] 10:21:00 Test Item Value Reference Range Interpretation Comments PROTIME (CAL) (test code = 12.4 seconds 11.7-14.7 759) INR ([facility]) (test code = 370) 0.9 <=5.9 RECOMMENDED COUMADIN/WARFARIN INR THERAPY RANGESSTANDARD DOSE: 2.0 - 3.0 Includes: PROPHYLAXIS for venous thrombosis, systemic embolization; TREATMENT for venous thrombosis and/or pulmonary embolus.HIGH RISK: Target INR is 2.5-3.5 for patients with mechanical heart valves.BLOOD GAS, [id number] 10:17:00 Test Item Value Reference Range Interpretation [...] (test code = 1819) 40.0 % PLATELET [id number] 10:13:00 Test Item Value Reference Range Interpretation Comments PLATELET COUNT (BEAKER) (test 111 K/CU MM 150-430 L code = 756)
[2022-09-11] MEDS ORDERED: METHYLPREDNISOLONE 125 MG INJ ONE (23:12)
[2022-09-11] MEDS ORDERED: IPRATROPIUM BROM 0.5MG/2.5ML ONE (23:12)
[2022-09-11] MEDS ORDERED: ALBUTEROL 2.5 MG/3 ML NEB SOL ONE (23:12)
[2022-09-11] MEDS ORDERED: KETOROLAC 30 MG/ML INJ ONE (23:12)
[2022-09-11 23:27] LABS: Absolute Lymphocytes (CBC) 1.6 K/uL (0.7-4.9); Hematocrit 38.1 % (36.0-45.0); Lymphocytes % 13.1 % (15.3-44.8); MCV 86.5 fL (80-100); MPV 7.9 fL (7.6-11.3)
[2022-09-11 23:41] LABS: Albumin 3.4 g/dL (3.4-5.0); Bilirubin Total 0.5 mg/dL (0.2-1.0); Magnesium 2.1 mg/dL (1.6-2.4); Protein, Total 7.1 g/dL (6.4-8.2); Troponin High Sensitivity 11.1 pg/mL (<58.9)
[2022-09-11 23:44] LABS: Arterial Blood Carboxyhemoglob 1.2 % (0-1.5); Blood Gas Oxyhemoglobin 93.8 % (94-97)
--- NOTE | 2022-09-11 23:51 | EDPHYS ---
Physician Documentation [facility] Name: Vikki Zamudio Age: 62 yrs Sex: Female : 1960 Arrival Date: 09/11/2022 Time: 22:45 Bed 16 Private MD: ED Physician Reena Little HPI: 09/11 23:46 This 62 yrs old Female presents to ER via EMS with complaints of Breathing Difficulty. sd2 23:46 62 yo F presents via EMS with CC of SOB. Reports progressively worsening for the past sd2 few days with productive cough of yellow sputum. Denies fever, vomiting or diarrhea. Has been using home albuterol with some relief. On 3L NC at home due to COPD but was saturating 87% on that upon EMS's arrival. Pt unable to tolerate nebulizer treatment en route. . Historical: - Allergies: 22:55 No Known Allergies; ke1 - PMHx: 22:55 CHF; COPD; GERD; High Cholesterol; Hypercarbia; Hypertension; Hypothyroidism; Panic ke1 Attacks; Sleep Apnea; - Immunization history:: Client reports having NOT received the Covid vaccine. - Social history:: Smoking status: Patient denies any tobacco usage or history of. ROS: 23:46 Constitutional: Negative for fever, chills, and weight loss, Eyes: Negative for injury, sd2 pain, redness, and discharge, Cardiovascular: Negative for chest pain, palpitations, and edema. 23:46 Abdomen/GI: Negative for abdominal pain, nausea, vomiting, diarrhea. MS/Extremity: Negative for injury and deformity, Skin: Negative for injury, rash, and discoloration, Neuro: Negative for headache, numbness and tingling. 23:46 Respiratory: Positive for cough, shortness of breath, wheezing, Negative for hemoptysis. Exam: 23:46 Constitutional: This is a well developed, well nourished patient who is awake, alert, sd2 and in no acute distress. Head/Face: Normocephalic, atraumatic. Eyes: EOMI, normal conjunctiva bilaterally Chest/axilla: Normal chest wall appearance and motion. Nontender with no deformity. Cardiovascular: Regular rate and rhythm with a normal S1 and S2. No gallops, murmurs, or rubs. 2+ distal pulses. Respiratory: Lungs have equal but diminished breath sounds bilaterally. No rales, rhonchi or wheezes noted. No increased work of breathing, no retractions or nasal flaring. Abdomen/GI: Soft, non-tender, with normal bowel sounds. No guarding or rebound. No evidence of tenderness throughout. Skin: Warm, dry with normal turgor. Normal color with no rashes, no lesions, and no evidence of cellulitis. MS/ Extremity: Pulses equal, no cyanosis. Neurovascular intact. Full, normal range of motion. Ambulatory without difficulty. Psych: Awake, alert, with orientation to person, place and time. Behavior, mood, and affect are within normal limits. 23:46 ECG was reviewed by the Attending Physician. NSR, rate 93, no clear STEMI criteria, sd2 PACs present, wandering baseline Vital Signs: 22:51 BP 114 / 82; Pulse 64; Resp 22; Temp 98.2(O); Pulse Ox 100% on Non-rebreather mask; ke1 Weight 128.82 kg; Height 5 ft. 9 in. (175.26 cm); Pain 6/10; 23:19 BP 135 / 79; Pulse 81; Resp 17; Pulse Ox 100% on Nebulizer Mask; Pain 6/10; ke1 23:36 Pulse Ox 97% on 5 lpm NC; ke1 23:49 Pain 0/10; ke1 22:51 Body Mass Index 41.94 (128.82 kg, 175.26 cm) ke1 MDM: 22:46 Patient medically screened. sd2 23:46 Differential diagnosis: Differential diagnosis includes but is not limited to: ACS, sd2 DVT/PE, pneumothorax, dissection, musculoskeletal, anxiety, anemia, electrolyte abnormality, pneumonia, CHF, COPD among others. Data reviewed: vital signs, nurses notes, lab test result(s), EKG, radiologic studies. Counseling: I had a detailed discussion with the patient and/or guardian regarding: the historical points, exam findings, and any diagnostic results supporting the discharge/admit diagnosis, lab results, radiology results, the need for further work-up and treatment in the hospital. 09/11 22:47 Order name: CBC with Diff; Complete Time: 23:47 sd2 09/11 22:47 Order name: CMP; Complete Time: 23:47 sd2 09/11 22:47 Order name: Magnesium; Complete Time: 23:47 sd2 09/11 22:47 Order name: Troponin High Sensitivity; Complete Time: 23:47 sd2 09/11 22:47 Order name: BNP; Complete Time: 23:47 sd2 09/11 22:47 Order name: Procalcitonin; Complete Time: 00:34 sd2 09/11 22:47 Order name: EKG - Nurse/Tech; Complete Time: 23:36 sd2 09/11 22:47 Order name: XRAY Chest (1 view) sd2 09/11 22:47 Order name: COVID-19/FLU A+B; Complete Time: 00:34 sd2 09/11 23:03 Order name: ABG; Complete Time: 00:34 sd2 Administered Medications: 23:18 Drug: Albuterol 5 mg Route: Inhalation; ke1 23:18 Drug: AtroVENT (ipratropium) Aerosol 0.5 mg Route: Inhalation; ke1 23:18 Drug: SOLU-Medrol (methylPrednisoLONE) 125 mg Route: IVP; Site: left antecubital; ke1 23:49 Follow up: Response: Marked relief of symptoms ke1 23:18 Drug: Ketorolac 15 mg Route: IVP; Site: left antecubital; ke1 23:49 Follow up: Pain 0/10 Adult; Response: Pain is decreased ke1 Disposition Summary: 09/11/22 23:51 Hospitalization Ordered Hospitalization Status: Inpatient Admission sd2 Provider: El An2 Location: Telemetry/MedSurg (Inpatient) sd2 Condition: Stable sd2 Problem: an acute exacerbation sd2 Symptoms: have improved sd2 Bed/Room Type: Standard mo2 Room Assignment: 402(09/12/22 00:43) eb1 Diagnosis - Acute on chronic respiratory failure with hypoxia and hypercarbia sd2 - COPD/ Chronic obstructive pulmonary disease with (acute) exacerbation sd2 Forms: - Medication Reconciliation Form sd2 - SBAR form sd2 Signatures: Dispatcher [employer] EDRishi Brown FNP-C FNP-Cla1 Yoselin Coffey RN RN eb1 Prabhu Billings RN RN ke1 Reena Little MD MD sd2 Corrections: (The following items were deleted from the chart) 09/12 00:43 09/11 23:51 sd2 eb1
--- NOTE | 2022-09-11 23:51 | ER ---
Nurse's Notes [facility] Name: Vikki Zamudio Age: 62 yrs Sex: Female : 1960 Arrival Date: 09/11/2022 Time: 22:45 Bed 16 Private MD: Diagnosis: Acute on chronic respiratory failure with hypoxia and hypercarbia;COPD/ Chronic obstructive pulmonary disease with (acute) exacerbation Presentation: 09/11 22:51 Chief complaint: EMS states: SOB and cough for couple days getting worsed, 87% on 3 L ke1 PNC on EMS arrival, c/o pain on coughing. Coronavirus screen: Vaccine status: Patient reports being unvaccinated. Ebola Screen: No symptoms or risks identified at this time. Initial Sepsis Screen: Does the patient meet any 2 criteria? RR > 20 per min. Initial Sepsis Screen: Does the patient have a suspected source of infection?. Risk Assessment: Do you want to hurt yourself or someone else? Patient reports no desire to harm self or others. Onset of symptoms. 22:51 Method Of Arrival: EMS: [facility] ke1 22:51 Acuity: LIZETH 3 ke1 22:54 Initial Sepsis Screen: Does the patient meet any 2 criteria? RR > 20 per min. No. ke1 Patient's initial sepsis screen is negative. Triage Assessment: 23:05 General: Appears uncomfortable, Behavior is appropriate for age. Pain: Complains of ke1 pain in abdomen on coughing. Respiratory: Reports cough that is productive, Onset: The symptoms/episode began/occurred couple days, the patient has moderate shortness of breath. Historical: - Allergies: 22:55 No Known Allergies; ke1 - PMHx: 22:55 CHF; COPD; GERD; High Cholesterol; Hypercarbia; Hypertension; Hypothyroidism; Panic ke1 Attacks; Sleep Apnea; - Immunization history:: Client reports having NOT received the Covid vaccine. - Social history:: Smoking status: Patient denies any tobacco usage or history of. Screenin:19 [facility] ED Fall Risk Assessment (Adult) History of falling in the last 3 months, ke1 including since admission No falls in past 3 months (0 pts) Confusion or Disorientation No (0 pts) Intoxicated or Sedated No (0 pts) Impaired Gait No (0 pts) Mobility Assist Device Used No (0 pt) Altered Elimination No (0 pt) Score/Fall Risk Level 0 - 2 = Low Risk. Abuse screen: Denies threats or abuse. Nutritional screening: No deficits noted. Tuberculosis screening: No symptoms or risk factors identified. Assessment: 23:20 Cardiovascular: Rhythm is. Respiratory: Airway is patent Respiratory effort is even, ke1 unlabored, Breath sounds with wheezes bilaterally. Vital Signs: 22:51 BP 114 / 82; Pulse 64; Resp 22; Temp 98.2(O); Pulse Ox 100% on Non-rebreather mask; ke1 Weight 128.82 kg; Height 5 ft. 9 in. (175.26 cm); Pain 6/10; 23:19 BP 135 / 79; Pulse 81; Resp 17; Pulse Ox 100% on Nebulizer Mask; Pain 6/10; ke1 23:36 Pulse Ox 97% on 5 lpm NC; ke1 23:49 Pain 0/10; ke1 22:51 Body Mass Index 41.94 (128.82 kg, 175.26 cm) ke1 ED Course: 22:45 Patient arrived in ED. wm 22:46 Reena Little MD is Attending Physician. sd2 22:50 Prabhu Billings, RN is Primary Nurse. ke1 22:54 Triage completed. ke1 22:58 XRAY Chest (1 view) In Process Unspecified. EDMS 23:05 Patient has correct armband on for positive identification. Bed in low position. Call [facility] light in reach. 23:08 COVID-19/FLU A+B Sent. ke1 23:08 Procalcitonin Sent. ke1 23:08 BNP Sent. ke1 23:08 Troponin High Sensitivity Sent. ke1 23:08 CMP Sent. ke1 23:08 Magnesium Sent. ke1 23:08 CBC with Diff Sent. ke1 23:18 Inserted saline lock: 20 gauge in left antecubital area, using aseptic technique. ke1 23:21 Arm band placed on right wrist. ke1 23:49 El An MD is Hospitalizing Provider. sd2 09/12 01:23 No provider procedures requiring assistance completed. Patient admitted, IV remains in ke1 place. Administered Medications: 09/11 23:18 Drug: Albuterol 5 mg Route: Inhalation; ke1 23:18 Drug: AtroVENT (ipratropium) Aerosol 0.5 mg Route: Inhalation; ke1 23:18 Drug: SOLU-Medrol (methylPrednisoLONE) 125 mg Route: IVP; Site: left antecubital; ke1 23:49 Follow up: Response: Marked relief of symptoms ke1 23:18 Drug: Ketorolac 15 mg Route: IVP; Site: left antecubital; ke1 23:49 Follow up: Pain 0/10 Adult; Response: Pain is decreased ke1 Medication: 09/12 01:23 VIS not applicable for this client. ke1 Outcome: 09/11 23:51 Decision to Hospitalize by Provider. sd2 09/12 01:23 Admitted to Med/surg accompanied by tech. ke1 01:23 Condition: good ke1 01:23 Discharge instructions given to patient. 01:33 Patient left the ED. ke1 Signatures: Dispatcher [employer] Shauna Miller Kouassi, RN RN ke1 Reena Little MD MD sd2
[2022-09-12 00:07] LABS: SARS-COV-2 RT PCR NEGATIVE (NEGATIVE)
--- NOTE | 2022-09-12 00:27 | P.HP ---
Certification for Inpatient Patient admitted to: Inpatient With expected LOS: >2 Midnights Patient will require the following post-hospital care: None Practitioner: I am a practitioner with admitting privileges, knowledge of patient current condition, hospital course, and medical plan of care. Services: Services provided to patient in accordance with Admission requirements found in Title 42 Section 412.3 of the Code of Federal Regulations <Rishi Holt - Last Filed: 09/12/22 00:20> Patient History Date of Service: 09/12/22 Reason for admission: Hypercapnic respiratory failure History of Present Illness: 62-year-old female with history of severe COPD on chronic home oxygen3 L with home NIV, pulmonary hypertension, VIVEK, obesity hypoventilation presents emergency department for 2 days worsening dyspnea unrelieved by home IV/nebulizer treatments. She is evaluated here in the emergency department she revealed hypercapnic respiratory failure with a pH of 7.29, PCO2 33.3, PO2 89.8. mild leukocytosis with white blood cell count 12.6. Patient was placed on BiPAP which she is currently tolerating well, ED provider wishes to admit her for evaluation and management of acute on chronic hypercapnic respiratory failure/COPD exacerbation. - Past Medical/Surgical History Diabetic: No -: Severe COPD, home oxygen/NIV,Pulmonary-Dr. Do -: Mild pulmonary hypertension -: Hypothyroidism -: Bipolar disorder -: Hypertension -: Chronic low back pain -: Obstructive sleep apnea -: GERD -: HLD -: GERD -: Appendectomy -: Psychosocial/ Personal History: She lives with a partner. She has 1 child. She is currently disabled. - Family History Father -: Heart disease, Hypertension, Diabetes Notes: from CHF Mother -: Heart disease, Hypertension, Diabetes Notes: from CHF Brother -: Diabetes Sister -: Heart disease, Diabetes Notes: from CHF - Social History Smoking Status: Former smoker Alcohol use: No CD- Drugs: No Caffeine use: Yes Place of Residence: Home <Rishi Holt - Last Filed: 09/12/22 00:20> Date of Service: 09/12/22 <El An - Last Filed: 09/12/22 21:34> Allergies codeine [Codeine] Adverse Reaction (Mild, Verified 02/15/21 08:47) itch Home Medications: Umeclidinium Brm/Vilanterol Tr [Anoro Ellipta 62.5-25 Mcg INH] 1 puff IN DAILY 10/23/20 clonazePAM [Klonopin*] 0.5 mg PO DAILY PRN 10/23/20 Fluticasone [Flonase 50MCG Nasal [place]*] 1 sprays IMNERVA BID #1 btl 07/15/22 Aspirin [Aspirin EC 81 MG] 1 tab PO DAILY 07/30/22 Atorvastatin Calcium [Lipitor*] 1 tab PO DAILY 07/30/22 Benzonatate [Tessalon Perle*] 1 cap PO TID PRN 07/30/22 Levothyroxine [Synthroid*] 1 tab PO DAILY 07/30/22 Roflumilast [Daliresp] 1 tab PO DAILY 07/30/22 Ropinirole HCl [Requip*] 1 tab PO BEDTIME 07/30/22 acetaZOLAMIDE [Acetazolamide] 1 tab PO DAILY 07/30/22 Famotidine [Pepcid] 20 mg PO DAILY 30 Days #30 tab 08/01/22 Fluconazole [Diflucan] 200 mg PO DAILY 14 Days #14 tab 08/01/22 Review of Systems 10-point ROS is otherwise unremarkable Respiratory: Cough, Shortness of Breath, Wheezing <Rishi Holt Carlos - Last Filed: 09/12/22 00:20> Physical Examination - Physical Exam General: Alert, In no apparent distress, Oriented x3, Obese HEENT: Atraumatic, PERRLA, Mucous membr. moist/pink, EOMI, Sclerae nonicteric Neck: Supple, 2+ carotid pulse no bruit, No LAD, Without JVD or thyroid abnormality Respiratory: Diminished, Expiratory wheezes Cardiovascular: Regular rate/rhythm, Normal S1 S2 Capillary refill: <2 Seconds Gastrointestinal: Normal bowel sounds, No tenderness Musculoskeletal: No tenderness Integumentary: No rashes Neurological: Normal speech, Normal strength at 5/5 x4 extr, Normal tone, Normal affect - Studies Laboratory Data (last 24 hrs) 09/11/22 23:00: Sodium 139, Potassium 4.0, BUN 13, Creatinine 0.96, Glucose 117 H, Magnesium 2.1, Total Bilirubin 0.5, AST 9 L, ALT 14, Alkaline Phosphatase 96 09/11/22 23:00: WBC 12.60 H, Hgb 12.1, Hct 38.1, Plt Count 167 <Rishi Holt - Last Filed: 09/12/22 00:20> - Studies Laboratory Data (last 24 hrs) 09/11/22 23:00: Sodium 139, Potassium 4.0, BUN 13, Creatinine 0.96, Glucose 117 H, Magnesium 2.1, Total Bilirubin 0.5, AST 9 L, ALT 14, Alkaline Phosphatase 96 09/11/22 23:00: WBC 12.60 H, Hgb 12.1, Hct 38.1, Plt Count 167 <El An - Last Filed: 09/12/22 21:34> Assessment and Plan - Plan Assessment: Acute on chronic hypoxic/hypercapnic respiratory failure secondary to COPD with exacerbationon home O2 with home NIV VIVEK/obesity hypoventilation syndrome Chronic diastolic CHF HTN HLD Hypothyroidism Plan: Acute on chronic hypoxic/hypercapnic respiratory failure secondary to COPD with exacerbationon home O2 with home NIV: Continue BiPAP, IV steroids, nebulizer treatments, ICS, home medications. Pulmonology consult in place. Patient reports she has been compliant with her medications as well as home NIV. Received report from pulmonology. Repeat ABG/VBG in the morning. VIVEK/obesity hypoventilation syndrome: Continue Bipap/pulm consult Chronic diastolic CHF: Does not appear overloaded, continue home meds. HTN HLD Hypothyroidism:continue home meds. DVT PPX: Lovenox Code status:full Discharge Plan: Home Plan to discharge in: 48 Hours - Advance Directives Does patient have a Living Will: No Does patient have a Durable POA for Healthcare: No - Code Status/Comfort Care Code Status Assessed: Yes (Full code) Critical Care: No Time Spent Managing Pts Care (In Minutes): 55 <Rishi Holt - Last Filed: 09/12/22 00:20> - Plan Patient seen and examined on rounds this morning continues with productive cough, sore chest dyspneic on minimal exertion continue NIV f/u cultures start levaquin for empiric coverage CXR: no acute cardiopulmonary disease seen pulm consulted Dispo: home, ~48hrs has NIV at home <El An - Last Filed: 09/12/22 21:34>
[2022-09-12] MEDS ORDERED: ACETAMINOPHEN 500 MG TAB PO PRN (00:38)
[2022-09-12] MEDS ORDERED: clonazePAM 0.5 MG TAB PO PRN (00:38)
[2022-09-12] MEDS ORDERED: ONDANSETRON 4 MG/2 ML VIAL IV PRN (00:38)
[2022-09-12] MEDS ORDERED: BENZONATATE 100 MG CAP PO PRN (00:38)
[2022-09-12] MEDS: METHYLPREDNISOLONE 40 MG INJ IV SCH ×2 (01:00→08:36)
[2022-09-12 06:17] LABS: Absolute Lymphocytes (CBC) 0.3 K/uL (0.7-4.9); Hematocrit 36.1 % (36.0-45.0); Lymphocytes % 2.6 % (15.3-44.8); MCV 86.5 fL (80-100); MPV 7.9 fL (7.6-11.3); RBC Red Blood Cell Count 4.18 M/uL (3.86-4.86)
[2022-09-12 06:33] LABS: Albumin 3.1 g/dL (3.4-5.0); Bilirubin Total 0.5 mg/dL (0.2-1.0); Potassium 4.3 mmol/L (3.5-5.1); Protein, Total 6.8 g/dL (6.4-8.2)
[2022-09-12] MEDS: ROFLUMILAST 500 MCG TABLET PO SCH (08:35)
[2022-09-12] MEDS: ENOXAPARIN 40 MG/0.4 ML SQ SCH (08:35)
[2022-09-12] MEDS: DULERA 200/5 (MOMETASONE/FORMOTEROL) INHALER IH SCH ×2 (08:36→20:05)
[2022-09-12] MEDS: ASPIRIN EC 81 MG TAB PO SCH (08:36)
[2022-09-12] MEDS: ATORVASTATIN 20 MG TAB PO SCH (08:36)
[2022-09-12] MEDS: acetaZOLAMIDE 250 MG TAB PO SCH (08:36)
--- NOTE | 2022-09-12 11:22 | RAD REPORT ---
EXAM DESCRIPTION: Chest Single View 09/11/2022 11:16 PM GRANT OFFICER CLINICAL HISTORY: 62 years, Female, SOB COMPARISON: None. FINDINGS: Single view of the chest was obtained portable. Prior films are available for comparison. The cardiomediastinal silhouette demonstrate to be unremarkable. The heart is not enlarged. The thora cic aorta is tortuous. The pulmonary vasculature is normal distribution. Costophrenic angles are sivakumar p. No areas of consolidation or masses are seen. The rest of the soft tissue and bony structures demonstrate to be unremarkable. IMPRESSION: No acute cardiopulmonary disease seen. Electronically signed by: Wei Vila MD 09/11/2022 11:16 PM GRANT OFFICER Due to temporary technical issues with the PACS/Fluency reporting system, reports are being signed by the in house radiologists without review as a courtesy to insure prompt reporting. The interpreting radiologist is fully responsible for the content of the report.
--- NOTE | 2022-09-12 13:08 | P.CNS ---
Date of Consult: 09/12/22 Reason for Consult: Acute on chronic respiratory failure Chief Complaint: Hypercapnic respiratory failure History of Present Illness: Patient is 62 years of age well-known to me recurrent hospital admissions for terminal COPD and while I saw her in my clinic last week admitted with deep coughing spells productive sputum patient is compliant with therapy using a noninvasive ventilator at that her second exacerbation this year Allergies codeine [Codeine] Adverse Reaction (Mild, Verified 02/15/21 08:47) itch Home Medications: Umeclidinium Brm/Vilanterol Tr [Anoro Ellipta 62.5-25 Mcg INH] 1 puff IN DAILY 10/23/20 clonazePAM [Klonopin*] 0.5 mg PO DAILY PRN 10/23/20 Fluticasone [Flonase 50MCG Nasal [place]*] 1 sprays MINERVA BID #1 btl 07/15/22 Aspirin [Aspirin EC 81 MG] 1 tab PO DAILY 07/30/22 Atorvastatin Calcium [Lipitor*] 1 tab PO DAILY 07/30/22 Benzonatate [Tessalon Perle*] 1 cap PO TID PRN 07/30/22 Levothyroxine [Synthroid*] 1 tab PO DAILY 07/30/22 Roflumilast [Daliresp] 1 tab PO DAILY 07/30/22 Ropinirole HCl [Requip*] 1 tab PO BEDTIME 07/30/22 acetaZOLAMIDE [Acetazolamide] 1 tab PO DAILY 07/30/22 Famotidine [Pepcid] 20 mg PO DAILY 30 Days #30 tab 08/01/22 Fluconazole [Diflucan] 200 mg PO DAILY 14 Days #14 tab 08/01/22 - Past Medical/Surgical History Diabetic: No -: Severe COPD, home oxygen/NIV,Pulmonary-Dr. Do -: Mild pulmonary hypertension -: Hypothyroidism -: Bipolar disorder -: Hypertension -: Chronic low back pain -: Obstructive sleep apnea -: GERD -: HLD -: GERD -: Appendectomy -: Psychosocial/ Personal History: She lives with a partner. She has 1 child. She is currently disabled. - Family History Father Medical History: Heart disease, Hypertension, Diabetes Notes: from CHF Mother Medical History: Heart disease, Hypertension, Diabetes Notes: from CHF Brother Medical History: Diabetes Sister Medical History: Heart disease, Diabetes Notes: from CHF - Social History Smoking Status: Unknown if ever smoked Alcohol use: No CD- Drugs: No Caffeine use: Yes Place of Residence: Home Review of Systems General: Weakness Respiratory: Cough, Shortness of Breath Physical Examination Temp Pulse Resp BP Pulse Ox 98.2 F 71 24 H 123/69 95 09/12/22 12:00 09/12/22 12:00 09/12/22 12:00 09/12/22 12:00 09/12/22 12:00 General: Alert, In no apparent distress, Oriented x3 Respiratory: Clear to auscultation bilaterally, Diminished Cardiovascular: No edema, Regular rate/rhythm, Normal S1 S2 Gastrointestinal: Normal bowel sounds, Soft and benign Musculoskeletal: No clubbing, No swelling Laboratory Data (last 24 hrs) 09/11/22 23:00: Sodium 139, Potassium 4.0, BUN 13, Creatinine 0.96, Glucose 117 H, Magnesium 2.1, Total Bilirubin 0.5, AST 9 L, ALT 14, Alkaline Phosphatase 96 09/11/22 23:00: WBC 12.60 H, Hgb 12.1, Hct 38.1, Plt Count 167 - Problems (1) Acute on chronic respiratory failure with hypoxia and hypercapnia Current Visit: No Status: Acute Plan: Is 62 years of age with terminal COPD morbid obesity admitted with worsening progressive cough in addition to shortness of breath the second exacerbation t his year she is compliant with all her therapy is all her inhalers I did follow- up recently in my office complaining of productive cough chest x-ray shows some interstitial changes and a mildly elevated white count patient can be discharged home on low-dose prednisone 10 mg twice a day in addition to high-dose levofloxacin 750 mg daily resume all her home medications. Sputum cultures have been ordered
[2022-09-12] MEDS: levoFLOXacin 750 MG TAB PO SCH (13:55)
[2022-09-12] MEDS: PROMETHAZINE-DM 5 ML OSYR PO SCH ×2 (13:56→20:04)
[2022-09-12] MEDS: predniSONE 20 MG TAB PO SCH (20:04)
[2022-09-12] MEDS: ROPINIROLE HCL 1 MG TAB PO SCH (20:09)
[2022-09-12] MEDS: IPRATROPIUM BROM 0.5MG/2.5ML NEB PRN (20:40)
[2022-09-12] MEDS: ALBUTEROL 2.5 MG/3 ML NEB SOL NEB PRN (20:40)
[2022-09-13] MEDS: PROMETHAZINE-DM 5 ML OSYR PO SCH ×4 (02:02→19:53)
[2022-09-13 04:40] LABS: Absolute Lymphocytes (CBC) 0.5 K/uL (0.7-4.9); Lymphocytes % 6.9 % (15.3-44.8); MCV 86.3 fL (80-100); MPV 8.4 fL (7.6-11.3); RBC Red Blood Cell Count 3.82 M/uL (3.86-4.86)
[2022-09-13 04:59] LABS: Albumin 2.9 g/dL (3.4-5.0); Bilirubin Total 0.2 mg/dL (0.2-1.0); Potassium 4.4 mmol/L (3.5-5.1); Protein, Total 6.2 g/dL (6.4-8.2)
[2022-09-13] MEDS: acetaZOLAMIDE 250 MG TAB PO SCH (08:31)
[2022-09-13] MEDS: ENOXAPARIN 40 MG/0.4 ML SQ SCH (08:31)
[2022-09-13] MEDS: ASPIRIN EC 81 MG TAB PO SCH (08:31)
[2022-09-13] MEDS: ROFLUMILAST 500 MCG TABLET PO SCH (08:31)
[2022-09-13] MEDS: levoFLOXacin 750 MG TAB PO SCH (08:31)
[2022-09-13] MEDS: predniSONE 20 MG TAB PO SCH ×2 (08:31→20:13)
[2022-09-13] MEDS: ATORVASTATIN 20 MG TAB PO SCH (08:31)
[2022-09-13] MEDS: DULERA 200/5 (MOMETASONE/FORMOTEROL) INHALER IH SCH ×2 (08:32→20:13)
--- NOTE | 2022-09-13 11:30 | P.PN ---
Subjective Date of Service: 09/13/22 Chief Complaint: Hypercapnic respiratory failure cough with chest pain No change still complaining of cough which is productive with some chest discomfort with coughing Review of Systems General: Weakness Respiratory: Shortness of Breath Physical Examination - Vital Signs Temperature: 97.9 F Blood Pressure: 131/62 Pulse: 82 Respirations: 20 Pulse Ox (%): 94 - Physical Exam General: Alert, Oriented x3, Mild distress Neck: Supple Respiratory: Clear to auscultation bilaterally, Diminished, Friction rub Cardiovascular: Regular rate/rhythm Assessment And Plan - Current Problems (Diagnosis) (1) Acute on chronic respiratory failure with hypoxia and hypercapnia Current Visit: No Status: Acute Plan: Patient has chronic respiratory failure admitted with a cough associated with significant desaturation. Repeat chest x-ray urine cultures are pending continue with antibiotic ordered some Tylenol with codeine stable discharge tomorrow her baseline she has significant hypercapnia and desaturation uses a noninvasive ventilator at home white count is decreased to 7
[2022-09-13] MEDS: CODEINE 30MG/APAP 300MG TAB PO PRN ×2 (12:53→20:12)
--- NOTE | 2022-09-13 14:53 | RAD REPORT ---
EXAM DESCRIPTION: RAD - Chest Single View - 09/13/2022 2:30 pm CLINICAL HISTORY: Chest pain COMPARISON: Portable 09/11/2022 TECHNIQUE: AP portable chest image was obtained 09/13/2022 2:30 pm . FINDINGS: No peripheral mass or consolidation. Interstitial markings are prominent but not clearly d ifferent from comparison. Vasculature is similar or only fractionally more pronounced. Heart size is upper normal, similar to comparison. No measurable pleural effusion and no pneumothora x. No acute bony abnormality seen. No acute aortic findings suspected. IMPRESSION: No focal mass or consolidation. Prominence of the central vasculature and lung markings. This is not substantially different from com parison but could indicate a mild edema.
[2022-09-13] MEDS ORDERED: INFLUENZA VACCINE (for 6+ mo) 0.5 ML DOSE IMVAC ONE (16:00)
--- NOTE | 2022-09-13 16:31 | P.PN ---
Date of Service: 09/13/22 Subjective: improving continues with significantly productive cough, green sputum sore throat, sore ribs from coughing desaturates while sitting up ROS: 10 point ROS as noted above, otherwise negative Physical exam GEN: Alert, oriented, NAD HEENT: Normal conjunctiva, sclera anicteric CV: Regular rate and rhythm, no edema Pulm: mild labored respirations on NIV, diminished bilaterally ABD: Soft, nontender, nondistended Neuro: Normal speech, normal affect Problem List Acute on chronic hypoxic/hypercapnic respiratory failure secondary to COPD with exacerbationon home O2 with home NIV VIVEK/obesity hypoventilation syndrome Chronic diastolic CHF HTN HLD Hypothyroidism continue NIV, O2 supplementation steroids nebs ICS home meds pulm consulted lots of greenish phlegm from coughing sore throat- - cough suppressant and spray HTN HLD Hypothyroidism:continue home meds. DVT PPX: Lovenox Code status:full Discharge Plan: Home Plan to discharge in: 24- 48 Hours
[2022-09-13] MEDS: GUAIFENESIN 600 MG SA TAB PO SCH (20:13)
[2022-09-13] MEDS: ROPINIROLE HCL 1 MG TAB PO SCH (20:13)
[2022-09-13] MEDS ORDERED: METOPROLOL TARTRATE 5 MG/5 ML INJ IV STA ×2 (20:49→22:48)
[2022-09-13] MEDS ORDERED: METOPROLOL TARTRATE 5 MG/5 ML INJ IV ONE ×2 (20:54→22:55)
[2022-09-14 00:22] VITALS: BMI 41.6
[2022-09-14] MEDS: PROMETHAZINE-DM 5 ML OSYR PO SCH ×4 (01:23→19:58)
[2022-09-14] MEDS: CODEINE 30MG/APAP 300MG TAB PO PRN ×4 (01:27→20:00)
[2022-09-14] MEDS: METOPROLOL TAR 25 MG TAB PO SCH ×3 (02:56→17:06)
[2022-09-14 04:59] LABS: Absolute Lymphocytes (CBC) 0.7 K/uL (0.7-4.9); Hematocrit 34.8 % (36.0-45.0); Lymphocytes % 8.6 % (15.3-44.8); MCV 86.5 fL (80-100); MPV 7.9 fL (7.6-11.3); RBC Red Blood Cell Count 4.02 M/uL (3.86-4.86)
[2022-09-14 05:39] LABS: Albumin 2.8 g/dL (3.4-5.0); Bilirubin Total 0.2 mg/dL (0.2-1.0); Potassium 4.8 mmol/L (3.5-5.1); Protein, Total 6.1 g/dL (6.4-8.2)
[2022-09-14] MEDS: ENOXAPARIN 40 MG/0.4 ML SQ SCH (08:41)
[2022-09-14] MEDS: predniSONE 20 MG TAB PO SCH ×2 (08:41→20:00)
[2022-09-14] MEDS: ATORVASTATIN 20 MG TAB PO SCH (08:41)
[2022-09-14] MEDS: ASPIRIN EC 81 MG TAB PO SCH (08:41)
[2022-09-14] MEDS: GUAIFENESIN 600 MG SA TAB PO SCH ×2 (08:41→20:00)
[2022-09-14] MEDS: levoFLOXacin 750 MG TAB PO SCH (08:41)
[2022-09-14] MEDS: ROFLUMILAST 500 MCG TABLET PO SCH (08:41)
[2022-09-14] MEDS: acetaZOLAMIDE 250 MG TAB PO SCH (08:41)
[2022-09-14] MEDS: DULERA 200/5 (MOMETASONE/FORMOTEROL) INHALER IH SCH ×2 (08:42→20:01)
--- NOTE | 2022-09-14 10:29 | P.PN ---
Subjective Date of Service: 09/14/22 Chief Complaint: Hypercapnic respiratory failure cough with chest pain Patient is improving chest pain has also improved well of 1 episode of A. fib last night back in normal sinus rhythm no prior history of A. fib Review of Systems General: Weakness Respiratory: Cough, Shortness of Breath Physical Examination - Vital Signs Temperature: 98.3 F Blood Pressure: 109/55 Pulse: 59 Respirations: 18 Pulse Ox (%): 98 - Physical Exam General: Alert, In no apparent distress, Oriented x3 Respiratory: Clear to auscultation bilaterally Cardiovascular: No edema, Regular rate/rhythm, Normal S1 S2 Assessment And Plan - Current Problems (Diagnosis) (1) Acute on chronic respiratory failure with hypoxia and hypercapnia Current Visit: No Status: Acute Plan: Patient's condition is stable coughing has improved productive sputum is decreased sputum cultures did not show any any significant organisms chest pain and cough is improved (2) Atrial fibrillation Current Visit: Yes Status: Acute Plan: Patient developed 1 episode of A. fib and reverted back to normal sinus rhythm no prior history of A. fib labs reviewed unremarkable plan to monitor for 1 more day possible discharge tomorrow labs reviewed Qualifiers: Atrial fibrillation type: paroxysmal Qualified Code(s): I48.0 - Paroxysmal atrial fibrillation
--- NOTE | 2022-09-14 17:29 | EKG ---
Test Date: 2022-09-11 Test Time: 23:30:33 [facility] Worker: VIDHI MEASUREMENT RESULTS: Intervals: Rate: 93 DE: 172 QRSD: 96 QT: 348 QTc: 432 [place]: P: 78 DE: 172 QRS: 79 T: 76 INTERPRETIVE STATEMENTS: Sinus rhythm with premature atrial complexes and premature ventricular complexes or fusion complexes Otherwise normal ECG Compared to ECG 07/29/2022 22:21:17 Atrial premature complex(es) now present Fusion complex(es) now present Ventricular premature complex(es) now present Sinus arrhythmia no longer present Electronically Signed On 09-14-22 17:25:50 ORE DRYER by Maykel Posey
--- NOTE | 2022-09-14 18:09 | CON ---
Date of Consultation: 09/14/2022 Reason For Consultation: Paroxysmal atrial fibrillation. History Of Present Illness: A 62-year-old female, history of COPD, on oxygen at home; history of pul monary hypertension; morbid obesity; diabetes; hypertension; bipolar disorder; obstructive sleep apne a, presented with shortness of breath and diagnosed with COPD exacerbation and respiratory failure. In the hospital, she had a brief episode of paroxysmal atrial fibrillation that converted to sinus rh ythm. No known history of atrial fibrillation. Past Medical History: As outlined above in HPI. Medications: Refer to reconciliation sheet for detailed list. Allergies: CODEINE. Family History: No premature coronary artery disease or cancer. Social History: She is an ex-smoker. Does not drink or use any drugs. Review of Systems: All systems reviewed were negative except what mentioned in HPI. Physical Examination: Vital Signs: Reviewed. Head and Neck: Pupils are equal, reactive to light. Intact eye movements. No JVD. No cervical lym phadenopathy. Neck is supple. Thyroid is not enlarged. Lungs: Decreased breathing sounds bilaterally with scattered wheezing and rhonchi. No accessory mus fausto use or muscle retraction. Heart: Regular rate and rhythm. No extra sounds. Abdomen: Soft, nontender. Bowel sounds positive. No organomegaly. No masses or hernia. No rigidi ty or rebound. Extremities: No edema, no clubbing, or cyanosis. Intact pulses. Skin: No rash. Neurologic: Alert, awake, oriented x3. No acute focal deficits appreciated. Investigation: Labs were reviewed. Assessment/recommendations: 1.Paroxysmal atrial fibrillation. She is back in sinus rhythm. Agree with metoprolol 25 mg twice a day. The patient's ANGIE-VASc score is high. She will need to be anticoagulated. Recommend Eliquis or Xarelto. 2.Dyslipidemia. Continue statin. 3.Chronic diastolic heart failure. The patient appears to be euvolemic from the fluid standpoint. I would continue home medications. Thank you for the consult. /JENI Voice ID: [id number] Report ID: [id number]
[2022-09-14] MEDS: ROPINIROLE HCL 1 MG TAB PO SCH (20:00)
[2022-09-14] MEDS: ALBUTEROL 2.5 MG/3 ML NEB SOL NEB PRN (21:30)
[2022-09-14] MEDS: IPRATROPIUM BROM 0.5MG/2.5ML NEB PRN (21:30)
[2022-09-15] MEDS: CODEINE 30MG/APAP 300MG TAB PO PRN (02:36)
[2022-09-15] MEDS: PROMETHAZINE-DM 5 ML OSYR PO SCH ×2 (02:38→08:19)
[2022-09-15 04:41] LABS: Potassium 4.5 mmol/L (3.5-5.1)
[2022-09-15] MEDS: METOPROLOL TAR 25 MG TAB PO SCH (06:00)
[2022-09-15] MEDS: predniSONE 20 MG TAB PO SCH (08:19)
[2022-09-15] MEDS: GUAIFENESIN 600 MG SA TAB PO SCH (08:19)
[2022-09-15] MEDS: ATORVASTATIN 20 MG TAB PO SCH (08:19)
[2022-09-15] MEDS: ROFLUMILAST 500 MCG TABLET PO SCH (08:19)
[2022-09-15] MEDS: ASPIRIN EC 81 MG TAB PO SCH (08:19)
[2022-09-15] MEDS: acetaZOLAMIDE 250 MG TAB PO SCH (08:19)
[2022-09-15] MEDS: DULERA 200/5 (MOMETASONE/FORMOTEROL) INHALER IH SCH (08:20)
[2022-09-15] MEDS ORDERED: levoFLOXacin 500 MG TAB PO SCH (09:00)
[2022-09-15] MEDS ORDERED: APIXABAN 5 MG TABLET PO SCH (09:00)
--- NOTE | 2022-09-15 09:28 | P.DS ---
Admission Date: 09/12/22 Discharge Date: 09/15/22 Disposition: ROUTINE DISCHARGE Discharge Condition: FAIR Reason for Admission: Hypercapnic respiratory failure cough with chest pain - Problems (1) Acute on chronic respiratory failure with hypoxia and hypercapnia Current Visit: No Status: Acute (2) Atrial fibrillation Current Visit: Yes Status: Acute Qualifiers: Atrial fibrillation type: paroxysmal Qualified Code(s): I48.0 - Paroxysmal atrial fibrillation Brief History of Present Illness: Patient is 62 years of age well-known to me recurrent hospital admissions for terminal COPD and while I saw her in my clinic last week admitted with deep coughing spells productive sputum patient is compliant with therapy using a noninvasive ventilator at that her second exacerbation this year Hospital Course: Patient is 62 years of age terminal COPD admitted with an exacerbation coughing spells patient remained stable she had only 1 episode of A. fib seen by [facility] supervisor dante Chew due to high progress score and had any further episodes of A. fib at time of discharge still complaining of some chest discomfort I will fax in some Tylenol 3 in addition to prednisone and levofloxacin advised patient to resume all her inhalers patient alert oriented stable vital signs all stable she has oxygen noninvasive ventilator at home follow-up with me in 2-week patient did not complain of any swallowing problems this time Examination alert oriented x3 chest diminished air entry with some wheezing vascular system heart sounds normal Vital Signs/Physical Exam: Temp Pulse Resp BP Pulse Ox 98.4 F 64 20 107/79 94 09/15/22 07:56 09/15/22 07:56 09/15/22 07:56 09/15/22 07:56 09/15/22 07:56 Laboratory Data at Discharge: WBC 8.40 K/uL (4.3-10.9) 09/14/22 04:42 Hgb 11.2 g/dL (12.0-15.0) L 09/14/22 04:42 Hct 34.8 % (36.0-45.0) L 09/14/22 04:42 Plt Count 175 K/uL (152-406) 09/14/22 04:42 Sodium 137 mmol/L (136-145) 09/15/22 04:10 Potassium 4.5 mmol/L (3.5-5.1) 09/15/22 04:10 BUN 24 mg/dL (7-18) H 09/15/22 04:10 Creatinine 0.97 mg/dL (0.55-1.02) 09/15/22 04:10 Glucose 164 mg/dL (74-106) H 09/15/22 04:10 Magnesium 2.1 mg/dL (1.6-2.4) 09/11/22 23:00 Total Bilirubin 0.2 mg/dL (0.2-1.0) 09/14/22 04:42 AST 13 U/L (15-37) L 09/14/22 04:42 ALT 20 U/L (13-56) 09/14/22 04:42 Alkaline Phosphatase 73 U/L (45-117) 09/14/22 04:42 Home Medications: Umeclidinium Brm/Vilanterol Tr [Anoro Ellipta 62.5-25 Mcg INH] 1 puff IN DAILY 10/23/20 clonazePAM [Klonopin*] 0.5 mg PO DAILY PRN 10/23/20 Fluticasone [Flonase 50MCG Nasal [place]*] 1 sprays MINERVA BID #1 btl 07/15/22 Aspirin [Aspirin EC 81 MG] 1 tab PO DAILY 07/30/22 Atorvastatin Calcium [Lipitor*] 1 tab PO DAILY 07/30/22 Benzonatate [Tessalon [place]*] 1 cap PO TID PRN 07/30/22 Levothyroxine [Synthroid*] 1 tab PO DAILY 07/30/22 Roflumilast [Daliresp] 1 tab PO DAILY 07/30/22 Ropinirole HCl [Requip*] 1 tab PO BEDTIME 07/30/22 acetaZOLAMIDE [Acetazolamide] 1 tab PO DAILY 07/30/22 Famotidine [Pepcid] 20 mg PO DAILY 30 Days #30 tab 08/01/22 Apixaban [Eliquis] 5 mg PO BID #60 tablet 09/15/22 levoFLOXacin [Levaquin*] 500 mg PO DAILY #7 tab 09/15/22 predniSONE [Deltasone*] 10 mg PO DAILY 7 Days #14 tab 09/15/22 New Medications: predniSONE [Deltasone*] 10 mg PO DAILY 7 Days #14 tab Apixaban [Eliquis] 5 mg PO BID #60 tablet levoFLOXacin [Levaquin*] 500 mg PO DAILY #7 tab Followup: Billy Howard DO [Primary Care Provider] -
[2022-09-15] MEDS: ALBUTEROL 2.5 MG/3 ML NEB SOL NEB PRN (09:30)
[2022-09-15] MEDS: IPRATROPIUM BROM 0.5MG/2.5ML NEB PRN (09:30)
[2022-09-15 10:58] VITALS: O2SAT 95
[2022-09-15 11:37] VITALS: BP 112/66; TEMP 98.5
== END 2022-09-15 11:25 | disposition home or self-care (01) | DRG 189 ==
LOC: ER 22:41 → ERHOLD 09-12 00:01 → 4TH 09-12 01:12
PROVIDERS: ADMIT Hospitalist; ATTEND Internal Medicine Sleep Medicine
PROC: 5A09457 Assistance with Respiratory Ventilation, 24-96 Consecutive Hours, Continuous Positive Airway Pressure (ICD-10-PCS; principal; 2022-09-12)
DX: J96.21 Acute and chronic respiratory failure with hypoxia (principal); J44.1 Chronic obstructive pulmonary disease with (acute) exacerbation; E66.2 Morbid (severe) obesity with alveolar hypoventilation; Z68.41 Body mass index [BMI] 40.0-44.9, adult; I50.32 Chronic diastolic (congestive) heart failure; J96.22 Acute and chronic respiratory failure with hypercapnia; I11.0 Hypertensive heart disease with heart failure; E78.5 Hyperlipidemia, unspecified; I48.0 Paroxysmal atrial fibrillation; E03.9 Hypothyroidism, unspecified; G89.29 Other chronic pain; M54.50 Low back pain, unspecified; K21.9 Gastro-esophageal reflux disease without esophagitis; Z88.5 Allergy status to narcotic agent; Z99.81 Dependence on supplemental oxygen; Z79.01 Long term (current) use of anticoagulants; Z79.52 Long term (current) use of systemic steroids; Z90.49 Acquired absence of other specified parts of digestive tract; Z79.82 Long term (current) use of aspirin; Z79.890 Hormone replacement therapy; Z28.310 Unvaccinated for COVID-19; Z87.891 Personal history of nicotine dependence; Z79.899 Other long term (current) drug therapy; Z20.822 Contact with and (suspected) exposure to COVID-19
CPT/HCPCS: 0240U; 36415; 71045; 80048; 80053; 82805; 83735; 83880; 84145; 84484; 85025; 87070; 87205; 93005; 94640; 94660; 94760; 96374; 96375; 99285; J1650; J2405; J2920; J2930; J3535; J7512; J7613; J7644

== ENCOUNTER 2022-10-19 19:25 | Inpatient (IN) | payer OTHER ==
[2022-10-19] MEDS ORDERED: ALBUTEROL 2.5 MG/3 ML NEB SOL ONE ×2 (19:57→20:01)
[2022-10-19] MEDS ORDERED: IPRATROPIUM BROM 0.5MG/2.5ML ONE ×2 (19:57→20:01)
[2022-10-19] MEDS ORDERED: METHYLPREDNISOLONE 125 MG INJ ONE (20:01)
[2022-10-19 20:12] LABS: Absolute Lymphocytes (CBC) 1.1 K/uL (0.7-4.9); Lymphocytes % 17.7 % (15.3-44.8); MCV 87.3 fL (80-100); MPV 7.2 fL (7.6-11.3); RBC Red Blood Cell Count 4.13 M/uL (3.86-4.86)
--- OUTSIDE RECORDS SUMMARY | 2022-10-19 20:21 | XMS REPORT | Continuity of Care Document ---
:1960 Author Organization [facility] t Address [address] [place] [address] Care Team Providers Name Role Phone Reena Moran Primary Care Physician Billy Howard Attending Clinician Unavailable JETHRO ZHAO Attending Clinician Unavailable MARTIN LEBLANC Attending Clinician Unavailable NEGRA DUNAWAY Attending Clinician Unavailable Martin Leblanc MD Attending Clinician Negra Gregory Attending Clinician [phone] Sheryl Ca MD Attending Clinician Doctor Unassigned, [place] Attending Clinician Unavailable Jethro Dodge MD Attending Clinician [phone] JETHRO DODGE Attending Clinician Unavailable Christa King MD Attending Clinician CHRISTA KING KOKI Attending Clinician Unavailable JESSE ARREDONDO Attending Clinician Unavailable Ronaldo DIETRICH, [place] Oates Attending Clinician David CARDONA, Viviana Person Attending Clinician Jeronimo Hogue MD Attending Clinician Christian DIETRICH, Julian Rose Attending Clinician Sammie Tarango MD Attending Clinician Jordin DIETRICH, [place] Attending Clinician Sung DIETRICH, Chu Mayer Attending Clinician [phone] CHU MARIN Attending Clinician Unavailable Lizbeth Verdugo RN Attending Clinician Gita DIETRICH, Annette Attending Clinician [...] Number Effective Date Expiration Date S harshad [facility] [id number] 2012 PLUS 00:00:00 [place] [address] [id number] 2019 [facility] 00:00:00 [facility] Problems Condition Condition Condition Status Onset Resolution Last Treating Co mments Source Name Details Category Date Date Treatment Clinician Date Acute on Acute on Disease Active Unive rs chronic chronic 2-17 [place] congest[place] congestive [place] dical heart heart Branch failure failure Respirator Respirator Disease Active U nivers y failure y failure 2-16 ity of 00:00: [place] [facility] Obesity Obesity Disease Active Univers (BMI (BMI 9-11 ity of 30-39.9) 30-39.9) 00:00: [place] [address] Medical Branch Tobacco Tobacco Disease [facility] Hypoxemia Hypoxemia Disease [facility] COPD COPD Disease Active [facility] exacerbati exacerbati 6-05 Pema kes on on 00:00: [facility] Center Acute Acute Disease Active [facility] hypercapni hypercapni 05 Pema kes c c 00:00: Medical respirator respirator 00 Ce nter y failure y failure [id number] Severe Problem Common chronic Spirit obstructiv - e [facility] Hypertensi Hypertensi Problem C ommon on on [facility] Hypothyroi Hypothyroi Problem C ommon dism dism [facility] Counseling Tobacco Problem Comm on about abuse Spirit tobacco counseling - use [facility] Hyperlipid Hyperlipid Problem C ommon emia emia, Spirit unspecifie [facility] Chronic Chronic Problem Common pain pain Spirit syndrome syndrome - [facility] Bipolar Bipolar Problem Common disorder disorder [facility] [id number] Nasal Problem Common bleeding [facility] Essential Essential Problem Com mon hypertensi hypertensi Sp kiley on on - CHI [facility] [id number] History of Problem Co mmon congestive Spirit heart - CHI failure [facility] Pulmonary Pulmonary Problem Com mon hypertensi hypertensi Sp kiley on on, - CHI unspecie [facility] Chronic Chronic Problem Common obstructiv obstructiv Sp kiley e e - CHI pulmonary pulmonary St disease [facility] unspecifie Medica l d COPD Center type [id number] Morbid Problem Common obesity [facility] [id number] On Problem Common supplement Spirit al oxygen - by nasal [facility] [id number] Body mass Problem Com mon index Spirit (BMI) - CHI 40.0-44.9, [facility] [id number] CPAP Problem Common (continuou Spirit s positive - CHI airway St pressure) [facility] dependence [facility] [id number] Nasal Problem Common congestion [facility] Vaginal Vaginal Problem Common bleeding bleeding [facility] Congestive Congestive Problem C ommon heart heart Spirit disease failure, - [facility] unspecifie [facility] chronicity Medica , Center unspecifie d heart failure type [id number] Pain in Problem Comm on [id number] right Spirit shoulder - CHI [facility] [id number] VIVEK Problem Common (obstructi Spirit ve sleep - CHI apnea) [facility] [id number] Nontraumat Problem C ommon 197532 ic Spirit complete - [facility]I tear of [facility] [place] rotator Medical cuff Center [id number] Abnormal Problem Comm on thyroid [facility] function - test [facility] [id number] RLS Problem Common (restless Spirit legs - CHI syndrome) [facility] [id number] 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 - CHI s [facility] [id number] SARS Problem Common pneumonia [facility] [id number] Other Problem Common chronic Spirit pain [facility] Wears Wears Disease Active Univers partial partial ity of dentures dentures [facility] Allergies, Adverse Reactions, Alerts Allergy Allergy Status [...] l s to to Branch drug codeine codeine codeine Active Unknown Common Spirit - CHI [facility] Social History Social Habit Start Date Stop Date Quantity Comments Source History of Common Spirit - Tobacco Use [facility] History SDRI University o f Alcohol Frequency [place] M edical Branch History SDOH University o f Alcohol Std [place] Medical Drinks Branch History SDRI University o f Alcohol Binge [place] Medic al Branch Exposure to 2022 2022-08-13 Not sure University of SARS-CoV-2 00:00:00 13:48:00 [facility] (event) [place] Alcohol intake 2022-08-13 2022-08-13 0 /d University of 00:00:00 00:00:00 [facility] Tobacco use and 2022-06-07 2022-06-07 Smokeless tobacco Un iversity of exposure 00:00:00 00:00:00 non-user [facility] Tobacco Comment 2022-06-07 2022-06-07 1-1.5 packs a day, U niversity of 00:00:00 00:00:00 quit 2018 [facility] Alcohol Comment 2020-11-12 2020-11-12 occasionally Univers ity of 00:00:00 00:00:00 [facility] Sex Ass[birth year] At [birth year] [place] 00:00:00 [facility]:00:00 [facility] Smoking Status Start Date Stop Date Source Ex-smoker 2022-06-07 00:00:00 2022-06-07 00:00:00 [facility] Medications Ordered Filled Start Stop Current Ordering Indication Dosage Frequency Signature Comments Components Source Medication Medication Date Date Medication? Clinician (SIG) Name Name Cefdinir Cefdinir 2021-09- No Cefdinir 300 MG 300 MG - 12-31 300 MG 00:00: 00:00 00 :00 predniSONE predniSONE 2021-09- No QD predniSONE 20 MG 20 MG 2-21 12-26 20 MG 00:00: 00:00 00 :00 Diclofenac 2021-09 Yes [id number] Apply to Univers Sodium 1-22 area(s) ity of (VOLTAREN) 00:00: daily. [place] 1 % gel [facility] gabapentin 2021-09 Yes [id number] 100mg Take 1 Univers 100 mg 1-22 capsule by ity of capsule 00:00: mouth in [place] [address] the Medical morning Branch and 1 capsule in the evening. Diclofenac 2021-09 Yes [id number] Apply to Univers Sodium 1-22 area(s) ity of (VOLTAREN) 00:00: daily. [place] 1 % gel [facility] gabapentin 2021-09 Yes [id number] 100mg Take 1 Univers 100 mg 1-22 capsule by ity of capsule 00:00: mouth in [place] [address] the Medical morning Branch and 1 capsule in the evening. Diclofenac 2021-09 Yes [id number] Apply to Univers Sodium 1-22 area(s) ity of (VOLTAREN) 00:00: daily. [place] 1 % gel [facility] Branch gabapentin 2021-09 Yes [id number] 100mg Take 1 Univers 100 mg 1-22 capsule by ity of capsule 00:00: mouth in [place] [address] the Medical morning Branch and 1 capsule in the evening. Diclofenac 2021-09 Yes [id number] Apply to Univers Sodium 1-22 area(s) ity of (VOLTAREN) 00:00: daily. [place] 1 % gel Medical Branch gabapentin 2021-09 Yes [id number] 100mg Take 1 Univers 100 mg 1-22 capsule by ity of capsule 00:00: mouth in [place] [address] the Medical morning Branch and 1 capsule in the evening. Diclofenac 2021-09 Yes [id number] Apply to Univers Sodium 1-22 area(s) ity of (VOLTAREN) 00:00: daily. [place] 1 % gel [facility] Branch gabapentin 2021-09 Yes [id number] 100mg Take 1 Univers 100 mg 1-22 capsule by ity of capsule 00:00: mouth in [place] [address] the Medical morning Branch and 1 capsule in the evening. Diclofenac 2021-09 Yes [id number] Apply to Univers Sodium 1-22 area(s) ity of (VOLTAREN) 00:00: daily. [place] 1 % gel [facility] Branch gabapentin 2021-09 Yes [id number] 100mg Take 1 Univers 100 mg 1-22 capsule by ity of capsule 00:00: mouth in [place] [address] the Medical morning Branch and 1 capsule in the evening. triamcinolo 2021-09- No [id number] 40mg Univers ne 10-05 ity of acetonide 19:00: 18:04 [place] (KENALOG) 00 :00 Medical injection Branch 40 mg triamcinolo 2021-09- No [id number] 40mg 40 mg, Univers ne 10-05 Intramuscu ity of acetonide 19:00: 18:04 [place], [place]CE, [place]KE[place] 00 :00 1 dose, On Medi derrick injection Mon Branch 40 mg 08/05/22 at 1300, Routine triamcinolo 2021-09 No [id number] 40mg Univers ne 10-05 ity of acetonide 19:00: 18:04 [place] (KENALOG) 00 :00 Medical injection Branch 40 mg triamcinolo 2021-09- No [id number] 40mg 40 mg, Univers ne 10-05 Intramuscu ity of acetonide 19:00: 18:04 [place] (KE[place]LOG[place] 00 :00 1 dose, On Medi derrick injection Mon Branch 40 mg 08/05/22 at 1300, Routine methylPREDN 2021- No [id number] 80mg U nivers ISolone 06-07 ity of acetate 19:30: 18:38 [place] (DEPO-MEDRO 00 :00 Medical L) Branch injection 80 mg methylPREDN 2021- No [id number] 80mg 80 mg, Univers ISolone 06-07 Intramuscu ity o f acetate 19:30: 18:38 [place], ONCE, [place] (DEPO-MEDRO 00 :00 1 dose, On Me dical L) Fri Branch injection 06/07/22 at 80 mg 1430, Routine methylPREDN 2021- No [id number] 80mg U nivers ISolone 06-07 ity of acetate 19:30: 18:38 [place] (DEPO-MEDRO 00 :00 Medical L) Branch injection 80 mg methylPREDN 2021- No [id number] 80mg 80 mg, Univers ISolone 06-07 Intramuscu ity o f acetate 19:30: 18:38 [place], ONCE, [place] (DEPO-MEDRO 00 :00 1 dose, On Me dical L) Fri Branch injection 06/07/22 at 80 mg 1430, Routine Kenalog Kenalog No 40mg Common (Triamcinol (Triamcinol 7-21 S pirit one) one) 00:00: - CHI [facility] Bupivicaine Bupivicaine 0 No 2.5mg Common Philo Philo 7-21 Spirit 00:00: - CHI [facility] Kenalog Kenalog No 40mg Common (Triamcinol (Triamcinol 7-21 S pirit one) one) 00:00: - CHI 00 [facility] Bupivicaine Bupivicaine 2-0 No 2.5mg Common Philo Philo 7-21 Spirit 00:00: - CHI 00 [facility] Kenalog Kenalog 2021-0 No 40mg Common (Triamcinol (Triamcinol 7-21 S pirit one) one) 00:00: - CHI 00 [facility] Bupivicaine Bupivicaine 2021-0 No 2.5mg Common Philo Philo 7-21 Spirit 00:00: - CHI 00 [facility] Kenalog Kenalog 2021-0 No 40mg Common (Triamcinol (Triamcinol 7-21 S pirit one) one) 00:00: - CHI 00 [facility] Bupivicaine Bupivicaine 2-0 No 2.5mg Common Philo Philo 7-21 Spirit 00:00: - CHI 00 [facility] Kenalog Kenalog 2021-0 No 40mg Common (Triamcinol (Triamcinol 7-21 S pirit one) one) 00:00: - CHI 00 [facility] Bupivicaine Bupivicaine 2021-0 No 2.5mg Common Philo Philo 7-21 Spirit 00:00: - CHI 00 [facility] Kenalog Kenalog 2021-0 No 40mg Common (Triamcinol (Triamcinol 7-21 S pirit one) one) 00:00: - CHI 00 [facility] Bupivicaine Bupivicaine 2-0 No 2.5mg Common Philo Philo 7-21 Spirit 00:00: - CHI 00 [facility] Kenalog Kenalog 2-0 No 40mg Common (Triamcinol (Triamcinol 4-27 S pirit one) one) 00:00: - CHI 00 [facility] Lidocaine Lidocaine 2-0 No 10mg Com mon 01-16 Spirit 00:00: - CHI 00 [facility] Kenalog Kenalog 2-0 No 40mg Common (Triamcinol (Triamcinol 4-27 S pirit one) one) 00:00: - CHI 00 [facility] Lidocaine Lidocaine 2-0 No 10mg Com mon 4-27 Spirit 00:00: - CHI [facility] Kenalog Kenalog 2-0 No 40mg Common (Triamcinol (Triamcinol 4-27 S pirit one) one) 00:00: - CHI 00 [facility] Lidocaine Lidocaine 2-0 No 10mg Com 01-16 Spirit 00:00: - CHI 00 [facility] Kenalog Kenalog 2-0 No 40mg Common (Triamcinol (Triamcinol 4-27 S pirit one) one) 00:00: - CHI 00 [facility] Lidocaine Lidocaine 2-0 No 10mg Com 01-16 Spirit 00:00: - CHI 00 [facility] Kenalog Kenalog 2-0 No 40mg Common (Triamcinol (Triamcinol 4-27 S pirit one) one) 00:00: - CHI [facility] Lidocaine Lidocaine 2-0 No 10mg Com 01-16 Spirit 00:00: - CHI 00 [facility] Kenalog Kenalog 2-0 No 40mg Common (Triamcinol (Triamcinol 4-27 S pirit one) one) 00:00: - CHI 00 [facility] Lidocaine Lidocaine 2-0 No 10mg Com 01-16 Spirit 00:00: - CHI [facility] Kenalog Kenalog 2-0 No 40mg Common (Triamcinol (Triamcinol 3-17 S pirit one) one) 00:00: - CHI [facility] Lidocaine Lidocaine 2-0 No 10mg Com 12-06 Spirit 00:00: - CHI 00 [facility] Kenalog Kenalog 2-0 No 40mg Common (Triamcinol (Triamcinol 3-17 S pirit one) one) 00:00: - CHI [facility] Lidocaine Lidocaine 2-0 No 10mg Com 12-06 Spirit 00:00: - CHI [facility] Kenalog Kenalog 2-0 No 40mg Common (Triamcinol (Triamcinol 3-17 S pirit one) one) 00:00: - CHI [facility] Lidocaine Lidocaine 2022-0 No 10mg Com 12-06 Spirit 00:00: - CH[facility] Kenalog Kenalog 2021-0 No 40mg Common (Triamcinol (Triamcinol 3-17 S pirit one) one) 00:00: - CHI [facility] Lidocaine Lidocaine 2021-0 No 10mg Com 12-06 Spirit 00:00: - CHI [facility] Kenalog Kenalog 2021-0 No 40mg Common (Triamcinol (Triamcinol 3-17 S pirit one) one) 00:00: - CHI [facility] Lidocaine Lidocaine 2021-0 No 10mg Com 12-06 Spirit 00:00: - CHI [facility] Kenalog Kenalog 2021-0 No 40mg Common (Triamcinol (Triamcinol 3-17 S pirit one) one) 00:00: - CHI [facility] Lidocaine Lidocaine 2021-0 No 10mg Com 12-06 Spirit 00:00: - [facility] carvedilol 0 Yes 3.125mg Take 3.125 Univers [...] 2 [place] tablet 41 (two) Medical times [place] daily with meals. traMADol 50 2020-0 Yes 50mg Take 50 mg Univers mg tablet 9-24 by mouth 3 ity of 14:31: (three) [place] 41 times Medical daily. Branch carvedilol 2020-0 Yes 3.125mg Take 3.125 Univers (COREG) 9-24 mg by ity of 3.125 mg 14:31: mouth 2 [place] tablet 41 (two) Medical times [place] daily with meals. traMADol 50 2020-0 Yes 50mg Take 50 mg Univers mg tablet 9-24 by mouth 3 ity of 14:31: (three) [place] 41 times Medical daily. Branch carvedilol 2020-0 Yes 3.125mg Take 3.125 Univers (COREG) 9-24 mg by ity of 3.125 mg 14:31: mouth 2 [place] tablet 41 (two) Medical times [place] daily with meals. traMADol 50 2020-0 Yes [...] 2 [place] tablet 41 (two) Medical times [place] daily with meals. traMADol 50 2020-0 Yes 50mg Take 50 mg Univers mg tablet 9-24 by mouth 3 ity of 14:31: (three) [place] 41 times Medical daily. Branch carvedilol Yes 3.125mg Take 3.125 Univers (COREG) 9-24 mg by ity of 3.125 mg 14:31: mouth 2 [place] tablet 41 (two) Medical times [place] daily with meals. traMADol 50 0 Yes 50mg Take 50 mg Univers mg tablet 9-24 by mouth 3 ity of 14:31: (three) [place] 41 times Medical daily. [place] DALIRESP 0 Yes Univers 500 mcg 9-22 ity of tablet 00:00: [place] 00 [facility] 2020-0 Yes Univers 500 mcg 9-22 ity of tablet 00:00: 00 [facility] 2020-0 Yes Univers 500 mcg 9-22 ity of tablet 00:00: 00 [facility] 2021-0 Yes Univers 500 mcg 9-22 ity of tablet 00:00: [place] [facility] 2020-0 Yes Univers 500 mcg 9-22 ity of tablet 00:00: [place] [facility] 2020-0 Yes Univers 500 mcg 9-22 ity of tablet 00:00: [place] [facility] 2020-0 Yes Univers 500 mcg 9-22 ity of tablet 00:00: [place] [facility] 2020-0 Yes Univers 500 mcg 9-22 ity of tablet 00:00: [place] [facility] 2020-0 Yes Univers 500 mcg 9-22 ity of tablet 00:00: [address] 2020-0 Yes Univers 500 mcg 9-22 ity of tablet 00:00: [address] 2020-0 Yes Univers 500 mcg 9-22 ity of tablet 00:00: [address] 2020-0 Yes Univers 500 mcg 9-22 ity of tablet 00:00: [address] 2020-0 Yes Univers 500 mcg 9-22 ity of tablet 00:00: [address] predniSONE 2020-0 Yes 10mg Take 10 mg U nivers 10 mg 8-31 by mouth ity of tablet 00:00: daily. [place] 00 [facility] predniSONE 2020-0 Yes 10mg Take 10 mg U nivers 10 mg 8-31 by mouth ity of tablet 00:00: daily. [address] predniSONE 1-0 Yes 10mg Take 10 mg U nivers 10 mg 8-31 by mouth ity of tablet 00:00: daily. [address] predniSONE 2020-0 Yes 10mg Take 10 mg U nivers 10 mg 8-31 by mouth ity of tablet 00:00: daily. [address] predniSONE 1-0 2022- No 10mg Take 10 mg Univers 10 mg 8-31 11-14 by mouth ity of tablet 00:00: 00:00 daily. [place] 00 :00 [facility] predniSONE 2021-0 2022- No 10mg Take 10 mg Univers 10 mg 8-31 11-14 by mouth ity of tablet 00:00: 00:00 daily. [place] 00 :00 [facility] predniSONE 2021-0 Yes TAKE 1 Unive rs 20 mg 8-26 TABLET BY ity of tablet 00:00: MOUTH [place] 00 TWICE Medical DAILY FOR Branch 7 DAYS THEN 1 TABLET FOR 7 DAYS predniSONE 2020-0 Yes TAKE 1 Unive rs 20 mg 8-26 TABLET BY ity of tablet 00:00: MOUTH [place] 00 TWICE Medical DAILY FOR Branch 7 DAYS THEN 1 TABLET FOR 7 DAYS predniSONE 2020-0 Yes TAKE 1 Unive rs 20 mg 8-26 TABLET BY ity of tablet 00:00: MOUTH [place] 00 TWICE Medical DAILY FOR Branch 7 DAYS THEN 1 TABLET FOR 7 DAYS predniSONE 2020-0 Yes TAKE 1 Unive rs 20 mg 8-26 TABLET BY ity of tablet 00:00: MOUTH [place] 00 TWICE Medical DAILY FOR Branch 7 DAYS THEN 1 TABLET FOR 7 DAYS predniSONE 2020-0 2021- No TAKE 1 Univ ers 20 mg 8-26 11-14 TABLET BY ity of tablet 00:00: 00:00 [facility] 00 :00 TWICE Medical DAILY FOR Branch 7 DAYS THEN 1 TABLET FOR 7 DAYS predniSONE 2020-0 2- No TAKE 1 Univ ers 20 mg 8-26 11-14 TABLET BY ity of tablet 00:00: 00:00 [facility] 00 :00 TWICE Medical DAILY FOR Branch 7 DAYS THEN 1 TABLET FOR 7 DAYS benzonatate 0 Yes TAKE 1 Univ ers 100 mg 8-25 CAPSULE BY ity of capsule 00:00: MOUTH [place] 00 THREE Medical TIMES [place] DAILY NEEDED FOR COUGH fluconazole Yes 200mg Take 200 U nivers 200 mg 8-25 mg by ity of tablet 00:00: mouth [place] 00 every Medical morning. Branch POLY-IRON Yes Take by Unive rs 150 mg iron 8-25 mouth ity of capsule 00:00: daily. [place] [address] Medical Branch LIDOCAINE 2020-0 Yes TAKE 15ML Uni vers VISCOUS 2 % 8-25 BY MOUTH ity of solution 00:00: THREE [place] 00 TIMES Medical DAILY Branch NEEDED FOR SORE THROAT benzonatate Yes TAKE 1 Univ ers 100 mg 8-25 CAPSULE BY ity of capsule 00:00: [place] [address] THREE Medical TIMES [place] DAILY NEEDED FOR COUGH fluconazole 0 Yes 200mg Take 200 U nivers 200 mg 8-25 mg by ity of tablet 00:00: mouth [place] 00 every Medical morning. Branch POLY-IRON Yes Take by Unive rs 150 mg iron 8-25 mouth ity of capsule 00:00: daily. [place] Medical Branch LIDOCAINE 2020-0 Yes TAKE 15ML Uni vers VISCOUS 2 % 8-25 BY MOUTH ity of solution 00:00: THREE [place] TIMES Medical DAILY Branch NEEDED FOR SORE THROAT benzonatate 2020-0 Yes TAKE 1 Univ ers 100 mg 8-25 CAPSULE BY ity of capsule 00:00: MOUTH [place] THREE Medical TIMES Branch DAILY NEEDED FOR COUGH fluconazole 2020-0 Yes 200mg Take 200 U nivers 200 mg 8-25 mg by ity of tablet 00:00: mouth [place] every Medical morning. Branch POLY-IRON 2020-0 Yes Take by Unive rs 150 mg iron 8-25 mouth ity of capsule 00:00: daily. [place] Medical Branch LIDOCAINE 2020-0 Yes TAKE 15ML Uni vers VISCOUS 2 % 8-25 BY MOUTH ity of solution 00:00: THREE [place] TIMES Medical DAILY Branch NEEDED FOR SORE THROAT benzonatate 2020-0 Yes TAKE 1 Univ ers 100 mg 8-25 CAPSULE BY ity of capsule 00:00: MOUTH [place] [address] THREE Medical TIMES Branch DAILY NEEDED FOR COUGH fluconazole 2020-0 Yes 200mg Take 200 U nivers 200 mg 8-25 mg by ity of tablet 00:00: mouth [place] every Medical morning. Branch POLY-IRON 2020-0 Yes Take by Unive rs 150 mg iron 8-25 mouth ity of capsule 00:00: daily. [place] Medical Branch LIDOCAINE 2020-0 Yes TAKE 15ML Uni vers VISCOUS 2 % 8-25 BY MOUTH ity of solution 00:00: THREE [place] TIMES Medical DAILY Branch NEEDED FOR SORE THROAT benzonatate 2020-0 Yes TAKE 1 Univ ers 100 mg 8-25 CAPSULE BY ity of capsule 00:00: MOUTH [place] [address] THREE Medical TIMES Branch DAILY NEEDED FOR COUGH fluconazole 2020-0 Yes 200mg Take 200 U nivers 200 mg 8-25 mg by ity of tablet 00:00: mouth [place] [address] every Medical morning. Branch POLY-IRON 2020-0 Yes Take by Unive rs 150 mg iron 8-25 mouth ity of capsule 00:00: daily. [place] Medical Branch LIDOCAINE 2020-0 Yes TAKE 15ML Uni vers VISCOUS 2 % 8-25 BY MOUTH ity of solution 00:00: THREE [place] TIMES Medical DAILY Branch NEEDED FOR SORE THROAT benzonatate 2020-0 Yes TAKE 1 Univ ers 100 mg 8-25 CAPSULE BY ity of capsule 00:00: MOUTH [place] THREE Medical TIMES Branch DAILY NEEDED FOR COUGH fluconazole 2020-0 Yes 200mg Take 200 U nivers 200 mg 8-25 mg by ity of tablet 00:00: mouth [place] every Medical morning. Branch POLY-IRON 2020-0 Yes Take by Unive rs 150 mg iron 8-25 mouth ity of capsule 00:00: daily. [place] Medical Branch LIDOCAINE 2020-0 Yes TAKE 15ML Uni vers VISCOUS 2 % 8-25 BY MOUTH ity of solution 00:00: THREE [place] TIMES Medical DAILY Branch NEEDED FOR SORE THROAT benzonatate 0 Yes TAKE 1 Univ ers 100 mg 8-25 CAPSULE BY ity of capsule 00:00: MOUTH [place] THREE Medical TIMES Branch DAILY NEEDED FOR COUGH fluconazole 2020-0 Yes 200mg Take 200 U nivers 200 mg 8-25 mg by ity of tablet 00:00: mouth [place] every Medical morning. Branch POLY-IRON 2020-0 Yes Take by Unive rs 150 mg iron 8-25 mouth ity of capsule 00:00: daily. [place] Medical Branch LIDOCAINE 2020-0 Yes TAKE 15ML Uni vers VISCOUS 2 % 8-25 BY MOUTH ity of solution 00:00: [place] TIMES Medical DAILY Branch NEEDED FOR SORE THROAT benzonatate 0 Yes TAKE 1 Univ ers 100 mg 8-25 CAPSULE BY ity of capsule 00:00: MOUTH [place] [address] THREE Medical TIMES Branch DAILY NEEDED FOR COUGH fluconazole 2020-0 Yes 200mg Take 200 U nivers 200 mg 8-25 mg by ity of tablet 00:00: mouth [place] every Medical morning. Branch POLY-IRON 2020-0 Yes Take by Unive rs 150 mg iron 8-25 mouth ity of capsule 00:00: daily. [place] Medical Branch LIDOCAINE 2020-0 Yes TAKE 15ML Uni vers VISCOUS 2 % 8-25 BY MOUTH ity of solution 00:00: THREE [place] TIMES Medical DAILY Branch NEEDED FOR SORE THROAT benzonatate 2020-0 Yes TAKE 1 Univ ers 100 mg 8-25 CAPSULE BY ity of capsule 00:00: MOUTH [place] [address] THREE Medical TIMES Branch DAILY NEEDED FOR COUGH fluconazole 2020-0 Yes 200mg Take 200 U nivers 200 mg 8-25 mg by ity of tablet 00:00: mouth [place] every Medical morning. Branch POLY-IRON 2020-0 Yes Take by Unive rs 150 mg iron 8-25 mouth ity of capsule 00:00: daily. [place] Medical Branch LIDOCAINE 2020-0 Yes TAKE 15ML Uni vers VISCOUS 2 % 8-25 BY MOUTH ity of solution 00:00: THREE [place] 00 TIMES Medical DAILY Branch NEEDED FOR SORE THROAT benzonatate 2020-0 Yes TAKE 1 Univ ers 100 mg 8-25 CAPSULE BY ity of capsule 00:00: MOUTH [place] THREE Medical TIMES Branch DAILY NEEDED FOR COUGH fluconazole 2020-0 Yes 200mg Take 200 U nivers 200 mg 8-25 mg by ity of tablet 00:00: mouth [place] every Medical morning. Branch POLY-IRON 2020-0 Yes Take by Unive rs 150 mg iron 8-25 mouth ity of capsule 00:00: daily. [place] Medical Branch LIDOCAINE 2020-0 Yes TAKE 15ML Uni vers VISCOUS 2 % 8-25 BY MOUTH ity of solution 00:00: THREE [place] 00 TIMES Medical DAILY Branch NEEDED FOR SORE THROAT benzonatate 0 Yes TAKE 1 Univ ers 100 mg 8-25 CAPSULE BY ity of capsule 00:00: MOUTH [place] THREE Medical TIMES Branch DAILY NEEDED FOR COUGH fluconazole 2020-0 Yes 200mg Take 200 U nivers 200 mg 8-25 mg by ity of tablet 00:00: mouth [place] every Medical morning. Branch POLY-IRON 2020-0 Yes Take by Unive rs 150 mg iron 8-25 mouth ity of capsule 00:00: daily. [place] [facility] LIDOCAINE 2020-0 Yes TAKE 15ML Uni vers VISCOUS 2 % 8-25 BY MOUTH ity of solution 00:00: THREE [place] 00 TIMES Medical DAILY Branch NEEDED FOR SORE THROAT benzonatate 0 Yes TAKE 1 Univ ers 100 mg 8-25 CAPSULE BY ity of capsule 00:00: MOUTH [place] [address] THREE Medical TIMES Branch DAILY NEEDED FOR COUGH fluconazole 2020-0 Yes 200mg Take 200 U nivers 200 mg 8-25 mg by ity of tablet 00:00: mouth [place] [address] every Medical morning. Branch POLY-IRON 2020-0 Yes Take by Unive rs 150 mg iron 8-25 mouth ity of capsule 00:00: daily. [place] [facility] LIDOCAINE 2021-0 Yes TAKE 15ML Uni vers VISCOUS 2 [...] mg by ity of tablet 00:00: mouth every Medical morning. Branch POLY-IRON Yes Take by Unive rs 150 mg iron 8-25 mouth ity of capsule 00:00: daily. Medical Branch LIDOCAINE Yes TAKE 15ML Uni vers VISCOUS 2 % 8-25 BY MOUTH ity of solution 00:00: THREE [place] TIMES Medical DAILY Branch NEEDED FOR SORE THROAT acetaZOLAMI Yes 250mg Take 250 U nivers DE 250 mg 7-28 mg by ity of tablet 00:00: mouth (two) Medical times Branch daily. ELIQUIS 5 Yes 5mg Take 5 mg Uni vers mg tablet 7-28 by mouth 2 ity of 00:00: (two) [place] 00 times Medical daily. Branch docusate Yes [...] by mouth 2 ity of 00:00: (two) [place] 00 times Medical daily. Branch docusate Yes TAKE 2 Univers 100 mg 7-28 CAPSULES ity of capsule 00:00: BY MOUTH [place] TWICE Medical DAILY. Branch nystatin Yes SHAKE [...] [place] 00 TWICE Medical DAILY. Branch nystatin 2021-0 Yes SHAKE Univers 100,000 7-28 LIQUID AND [...] mg) 00 daily. Medical capsule Branch acetaZOLAMI 0 Yes 250mg Take 250 U nivers DE 250 mg 7-28 mg by ity of tablet 00:00: mouth 2 [place] 00 (two) Medical times Branch daily. ELIQUIS 5 2020-0 Yes 5mg Take 5 mg Uni vers mg tablet 7-28 by mouth 2 ity of 00:00: (two) [place] 00 times Medical daily. Branch docusate 0 Yes TAKE 2 Univers 100 mg 7-28 CAPSULES ity of capsule 00:00: BY MOUTH [place] 00 TWICE Medical DAILY. Branch nystatin 0 Yes SHAKE Univers 100,000 7-28 LIQUID AND ity of unit/mL 00:00: TAKE 5 ML [place] suspension 00 BY MOUTH Medic al THREE Branch TIMES DAILY zinc 2020-0 Yes 220mg Take 220 Univers sulfate 50 7-28 mg by ity of mg zinc 00:00: mouth [place] (220 mg) 00 daily. Medical capsule Branch acetaZOLAMI 2020-0 Yes 250mg Take 250 U [...] (two) Medical times Branch daily. ELIQUIS 5 2020- Yes 5mg Take 5 mg Uni vers mg tablet 7-28 by mouth 2 ity of 00:00: (two) [place] 00 times Medical daily. Branch docusate Yes TAKE 2 Univers 100 mg 7-28 CAPSULES ity of capsule 00:00: BY MOUTH TWICE Medical DAILY. Branch nystatin 0 Yes SHAKE Univers 100,000 7-28 LIQUID AND ity of unit/mL 00:00: TAKE 5 ML [place] suspension 00 BY MOUTH Medic al THREE Branch TIMES DAILY zinc 2020-0 Yes 220mg Take 220 Univers sulfate 50 7-28 mg by ity of mg zinc 00:00: mouth [place] (220 mg) 00 daily. Medical capsule Branch acetaZOLAMI 0 Yes 250mg Take 250 U nivers DE [...] MOUTH 00 TWICE Medical DAILY. Branch nystatin 2021-0 Yes SHAKE Univers 100,000 7-28 LIQUID AND [...] mouth ity of tablet 16:35: at [place] bedtime. Medical Branch clonazePAM Yes .5mg Take [...] mouth ity of tablet 16:35: at [place] bedtime. Medical Branch clonazePAM 0 Yes .5mg [...] mouth as [place] 55 needed. Medical Branch bhargavu Yes Inhale. Uni vers m-vilantero 2-25 ity [...] mouth as [place] 55 needed. Medical Branch bhargavu Yes Inhale. Uni vers m-vilantero 2-25 ity [...] mcg/actuati on inhalation disk guaiFENesin 2020-0 Yes [id number] 100mg Take 5 mL Univers 100 mg/5 mL 2-25 by mouth ity of solution 00:00: every 4 [place] 00 (four) Medical hours as Branch needed for Cough. furosemide 2020-0 Yes [id number] 40mg Take 2 Univers 20 mg 2-25 tablets by ity of tablet 00:00: mouth [place] 00 daily. Medical Branch guaiFENesin 2020-0 Yes [id number] 100mg Take 5 mL Univers 100 mg/5 mL 2-25 by mouth ity of solution 00:00: every 4 [place] 00 (four) Medical hours as Branch needed for Cough. furosemide 2020-0 Yes [id number] 40mg Take 2 Univers 20 mg 2-25 tablets by ity of tablet 00:00: mouth [place] 00 daily. Medical Branch guaiFENesin 2020-0 Yes [id number] 100mg Take 5 mL Univers 100 mg/5 mL 2-25 by mouth ity of solution 00:00: every 4 [place] 00 (four) Medical hours as Branch needed for Cough. furosemide 2020-0 Yes [id number] 40mg Take 2 Univers 20 mg 2-25 tablets by ity of tablet 00:00: mouth [place] 00 daily. Medical Branch guaiFENesin 2020-0 Yes [id number] 100mg Take 5 mL Univers 100 mg/5 mL 2-25 by mouth ity of solution 00:00: every 4 [place] 00 (four) Medical hours as Branch needed for Cough. furosemide 2020-0 Yes [id number] 40mg Take 2 Univers 20 mg 2-25 tablets by ity of tablet 00:00: mouth [place] 00 daily. Medical Branch guaiFENesin 2020-0 Yes [id number] 100mg Take 5 mL Univers 100 mg/5 mL 2-25 by mouth ity of solution 00:00: every 4 [place] 00 (four) Medical hours as Branch needed for Cough. furosemide 2020-0 Yes [id number] 40mg Take 2 Univers 20 mg 2-25 tablets by ity of tablet 00:00: mouth [place] 00 daily. Medical Branch guaiFENesin 2020-0 Yes [id number] 100mg Take 5 mL Univers 100 mg/5 mL 2-25 by mouth ity of solution 00:00: every 4 [place] 00 (four) Medical hours as Branch needed for Cough. furosemide 2020-0 Yes [id number] 40mg Take 2 Univers 20 mg 2-25 tablets by ity of tablet 00:00: mouth [place] 00 daily. Medical Branch guaiFENesin 2020-0 Yes [id number] 100mg Take 5 mL Univers 100 mg/5 mL 2-25 by mouth ity of solution 00:00: every 4 [place] 00 (four) Medical hours as Branch needed for Cough. furosemide 2020-0 Yes [id number] 40mg Take 2 Univers 20 mg 2-25 tablets by ity of tablet 00:00: mouth [place] 00 daily. Medical Branch guaiFENesin 2020-0 Yes [id number] 100mg Take 5 mL Univers 100 mg/5 mL 2-25 by mouth ity of solution 00:00: every 4 [place] 00 (four) Medical hours as Branch needed for Cough. furosemide 2020-0 Yes [id number] 40mg Take 2 Univers 20 mg 2-25 tablets by ity of tablet 00:00: mouth [place] 00 daily. Medical Branch guaiFENesin 2020-0 Yes [id number] 100mg Take 5 mL Univers 100 mg/5 mL 2-25 by mouth ity of solution 00:00: every 4 [place] 00 (four) Medical hours as Branch needed for Cough. furosemide 2020-0 Yes [id number] 40mg Take 2 Univers 20 mg 2-25 tablets by ity of tablet 00:00: mouth [place] 00 daily. Medical Branch guaiFENesin 2020-0 Yes [id number] 100mg Take 5 mL Univers 100 mg/5 mL 2-25 by mouth ity of solution 00:00: every 4 [place] 00 (four) Medical hours as Branch needed for Cough. furosemide 2020-0 Yes [id number] 40mg Take 2 Univers 20 mg 2-25 tablets by ity of tablet 00:00: mouth [place] 00 daily. Medical Branch guaiFENesin 2020-0 Yes [id number] 100mg Take 5 mL Univers 100 mg/5 mL 2-25 by mouth ity of solution 00:00: every 4 [place] 00 (four) Medical hours as Branch needed for Cough. furosemide 2020-0 Yes [id number] 40mg Take 2 Univers 20 mg 2-25 tablets by ity of tablet 00:00: mouth [place] 00 daily. Medical Branch guaiFENesin 2020-0 Yes [id number] 100mg Take 5 mL Univers 100 mg/5 mL 2-25 by mouth ity of solution 00:00: every 4 [place] 00 (four) Medical hours as Branch needed for Cough. furosemide 2020-0 Yes [id number] 40mg Take 2 Univers 20 mg 2-25 tablets by ity of tablet 00:00: mouth [place] 00 daily. Medical Branch guaiFENesin 1-0 Yes [id number] 100mg Take 5 mL Univers 100 mg/5 mL 2-25 by mouth ity of solution 00:00: every 4 [place] 00 (four) Medical hours as Branch needed for Cough. furosemide 2020-0 Yes [id number] 40mg Take 2 Univers 20 mg 2-25 [...] tablet by ity of tablet 00:00: mouth daily. Medical Branch pantoprazol 1-0 Yes 40mg Take 1 Univ ers e 40 mg EC 2-21 tablet by ity of tablet 00:00: mouth daily. Medical Branch gabapentin 2020-0 Yes 300mg Take 1 Univ ers 300 mg 2-20 capsule by ity of capsule 00:00: mouth (two) Medical times Branch daily. melatonin 3 2020-0 Yes 6mg Take 2 Univ ers mg tablet 2-20 tablets by ity of 00:00: mouth at [place] bedtime. Medical Branch gabapentin 2020-0 Yes 300mg Take 1 Univ ers 300 mg 2-20 capsule by ity of capsule 00:00: mouth (two) Medical times Branch daily. melatonin 3 2020-0 Yes 6mg Take 2 Univ ers mg tablet 2-20 tablets by ity of 00:00: mouth at [place] bedtime. Medical Branch gabapentin 2020-0 Yes 300mg Take 1 Univ ers 300 mg 2-20 capsule by ity of capsule 00:00: mouth (two) Medical times Branch daily. melatonin 3 2020-0 Yes 6mg Take 2 Univ ers mg tablet 2-20 tablets by ity of 00:00: mouth at bedtime. Medical Branch gabapentin 2020-0 Yes 300mg Take 1 Univ ers 300 mg 2-20 capsule by ity of capsule 00:00: mouth (two) Medical times Branch daily. melatonin 3 2020-0 Yes 6mg Take 2 Univ ers mg tablet 2-20 tablets by ity of 00:00: mouth at [place] bedtime. Medical Branch gabapentin 2021-0 Yes 300mg Take 1 Univ ers 300 mg 2-20 capsule by ity of capsule 00:00: mouth (two) Medical times Branch daily. melatonin 3 2021-0 Yes 6mg Take 2 Univ ers mg tablet 2-20 tablets by ity of 00:00: mouth at [place] [address] bedtime. Medical Branch gabapentin 2021-0 Yes 300mg Take 1 Univ ers 300 mg 2-20 capsule by ity of capsule 00:00: mouth 2 [place] (two) Medical times Branch daily. melatonin 3 2021-0 Yes 6mg Take 2 Univ ers mg tablet 2-20 tablets by ity of 00:00: mouth at [place] [address] bedtime. Medical Branch gabapentin 2021-0 Yes 300mg Take 1 Univ ers 300 mg 2-20 capsule by ity of capsule 00:00: mouth 2 (two) Medical times Branch daily. melatonin 3 1-0 Yes 6mg Take 2 Univ ers mg tablet 2-20 tablets by ity of 00:00: mouth at [place] [address] bedtime. Medical Branch gabapentin 2021-0 Yes 300mg Take 1 Univ ers 300 mg 2-20 capsule by ity of capsule 00:00: mouth 2 [place] ([facility]) Medical times Branch daily. melatonin 3 2020-0 Yes 6mg Take 2 Univ ers mg tablet 2-20 tablets by ity of 00:00: mouth at [place] [address] bedtime. Medical Branch gabapentin 2020-0 Yes 300mg Take 1 Univ ers 300 mg 2-20 capsule by ity of capsule 00:00: mouth 2 [place] ([facility]) Medical times Branch daily. melatonin 3 2020-0 Yes 6mg Take 2 Univ ers mg tablet 2-20 tablets by ity of 00:00: mouth at [place] [address] bedtime. Medical Branch gabapentin 2021-0 Yes 300mg Take 1 Univ ers 300 mg 2-20 capsule by ity of capsule 00:00: mouth 2 [place] (two) Medical times Branch daily. melatonin 3 2020-0 Yes 6mg Take 2 Univ ers mg tablet 2-20 tablets by ity of 00:00: mouth at [place] [address] bedtime. Medical Branch gabapentin 2021-0 Yes 300mg Take 1 Univ ers 300 mg 2-20 capsule by ity of capsule 00:00: mouth 2 [place] (two) Medical times Branch daily. melatonin 3 2021-0 Yes 6mg Take 2 Univ ers mg tablet 2-20 tablets by ity of 00:00: mouth at [place] [address] bedtime. Medical Branch gabapentin 2021-0 Yes 300mg Take 1 Univ ers 300 mg 2-20 capsule by ity of capsule 00:00: mouth 2 [place] 00 (two) Medical times Branch daily. melatonin 3 2020-0 Yes 6mg Take 2 Univ ers mg tablet 2-20 tablets by ity of 00:00: mouth at [place] [address] bedtime. Medical Branch gabapentin 2020-0 Yes 300mg Take 1 Univ ers 300 mg 2-20 capsule by ity of capsule 00:00: mouth 2 [place] 00 (two) Medical times Branch daily. melatonin 3 2020-0 Yes 6mg Take 2 Univ ers mg tablet 2-20 tablets by ity of 00:00: mouth at [place] 00 bedtime. Medical Branch fluticasone 2019- Yes 1{spray Use 1 Un merry propionate 6-24 } [place] in ity o f 50 00:00: each [place] mcg/actuati 00 nostril Medic al on nasal daily. Branch spray fluticasone 2018-0 Yes 1{spray Use 1 Un merry propionate 6-24 } [place] in ity o f 50 00:00: each [place] mcg/actuati 00 nostril Medic al on nasal daily. Branch spray fluticasone 2018-0 Yes 1{spray Use 1 Un merry propionate 6-24 } [place] in ity o f 50 00:00: each [place] mcg/actuati 00 nostril Medic al on nasal daily. Branch spray fluticasone 2018-0 Yes 1{spray Use 1 Un merry propionate 6-24 } [place] in ity o f 50 00:00: each [place] mcg/actuati 00 nostril Medic al on nasal daily. Branch spray fluticasone 2019-0 Yes 1{spray Use 1 Un merry propionate 6-24 } [place] in ity o f 50 00:00: each [place] mcg/actuati 00 nostril Medic al on nasal daily. Branch spray fluticasone 2019-0 Yes 1{spray Use 1 Un merry propionate 6-24 } [place] in ity o f 50 00:00: each [place] mcg/actuati 00 nostril Medic al on nasal daily. Branch spray fluticasone 2018-0 Yes 1{spray Use 1 Un merry propionate 6-24 } [place] in ity o f 50 00:00: each [place] mcg/actuati 00 nostril Medic al on nasal daily. Branch spray fluticasone 2018-0 Yes 1{spray Use 1 Un merry propionate 6-24 } [place] in ity o f 50 00:00: each [place] mcg/actuati 00 nostril Medic al on nasal daily. Branch spray fluticasone 2018-0 Yes 1{spray Use 1 Un merry propionate 6-24 } [place] in ity o f 50 00:00: each [place] mcg/actuati 00 nostril Medic al on nasal daily. Branch spray fluticasone 2018-0 Yes 1{spray Use 1 Un merry propionate 6-24 } [place] in ity o f 50 00:00: each [place] mcg/actuati 00 nostril Medic al on nasal daily. Branch spray fluticasone 2018-0 Yes 1{spray Use 1 Un merry propionate 6-24 } [place] in ity o f 50 00:00: each [place] mcg/actuati 00 nostril Medic al on nasal daily. Branch spray fluticasone 2018-0 Yes 1{spray Use 1 Un merry propionate 6-24 } [place] in ity o f 50 00:00: each [place] mcg/actuati 00 nostril Medic al on nasal daily. Branch spray fluticasone 2018-0 Yes 1{spray Use 1 Un merry propionate 6-24 } [place] in ity o f 50 00:00: each [...] [place] 00 daily. Medical Branch latanoprost 2019-0 Yes 1[drp] Place 1 U nivers 0.005 [...] [place] drops 00 daily. Medical Branch latanoprost 2019-0 Yes 1[drp] Place 1 U nivers 0.005 % 6-23 Drop in ity of ophthalmic 00:00: [place] eyes [place] drops 00 daily. Medical Branch latanoprost 2019-0 Yes 1[drp] Place 1 U nivers 0.005 % 6-23 Drop in ity of ophthalmic 00:00: [place] eyes [place] drops 00 daily. Medical Branch latanoprost 2019-0 Yes 1[drp] Place 1 U nivers 0.005 % 6-23 Drop in ity of ophthalmic 00:00: [place] eyes [place] drops 00 daily. Medical Branch Kenalog Kenalog 2018-0 No 40mg [facility] (Triamcinol (Triamcinol 4-25 S pirit one) one) 00:00: - [facility] Kenalog Kenalog 2018-0 No 40mg Common (Triamcinol (Triamcinol 4-25 S pirit one) one) 00:00: - [facility] Kenalog Kenalog 2018-0 No 40mg Common (Triamcinol (Triamcinol 4-25 S pirit one) one) 00:00: - [facility] 2018-0 No 40mg Common (Triamcinol (Triamcinol 4-25 S pirit one) one) 00:00: - [facility] 2018-0 No 40mg Common (Triamcinol (Triamcinol 4-25 S pirit one) one) 00:00: - [facility] 2018-0 No 40mg Common (Triamcinol (Triamcinol 4-25 S pirit one) one) 00:00: - [facility] azithromyci 2017-0 Yes 250mg QD Take 1 [...] daily Take by mouth as directed.. predniSONE 2017-0 Yes Take 4 [facility] (DELTASONE) [...] Calcium 20 MG 20 MG 20 MG Aleve Aleve No Aleve Aspirin 81 Aspirin [...] t 0.005 % fected_ eye_in_ the_eve gera} rOPINIRole rOPINIRole No rOPINIRole HCl 1 MG HCl 1 MG HCl 1 MG Anoro Anoro No 1{puff} QD Anoro Ellipta Ellipta Ellipta 62.5-25 62.5-25 62.5-25 MCG/INH MCG/INH MCG/INH rOPINIRole rOPINIRole No QD rOPINIRole HCl 1 MG HCl 1 MG HCl 1 MG Albuterol Albuterol No 1{ml_as QID Albuterol Sulfate (5 Sulfate (5 _needed Sulfate (5 MG/ML) 0.5% MG/ML) 0.5% } MG/ML) 0.5% Pantoprazol Pantoprazol No 1{table QD Pantoprazo e Sodium 40 e Sodium 40 t} le Sodium MG MG 40 MG Atorvastati Atorvastati No Atorvastat n Calcium n Calcium in Calcium 20 MG 20 MG 20 MG Benzonatate Benzonatate No 1{capsu TID Benzonatat 200 MG 200 MG le} e 200 MG Aspirin 81 Aspirin 81 No 1{table QD Aspirin 81 MG MG t} MG acetaZOLAMI acetaZOLAMI No acetaZOLAM DE 250 MG DE 250 MG GAURAV 250 MG Flonase 50 Flonase 50 No 2{spray QD Flonase 50 MCG/ACT MCG/ACT s_in_ea MCG/ACT ch_nost ril} Levothyroxi Levothyroxi No Levothyrox ne Sodium ne Sodium ine Sodium 88 MCG 88 MCG 88 MCG traMADol traMADol No 1{table TID traMADol HCl 50 MG HCl 50 MG t_as_ne HCl 50 MG eded} Furosemide Furosemide No 1{table QD Furosemide 20 MG 20 MG t} 20 MG Carvedilol Carvedilol No BID Carvedilol 3.125 MG 3.125 MG 3.125 MG Atorvastati Atorvastati No QD Atorvastat n Calcium n Calcium in Calcium 20 MG 20 MG 20 MG clonazePAM clonazePAM No 1{table QD clonazePAM 0.5 MG 0.5 MG t_at_be 0.5 MG dtime} Levothyroxi Levothyroxi No QD Levothyrox ne Sodium ne Sodium ine Sodium 88 MCG 88 MCG 88 MCG Daliresp Daliresp No 1{table QD Daliresp 500 MCG 500 MCG t} 500 MCG Melatonin Melatonin No Melatonin Latanoprost Latanoprost No 1{drop_ QD Latanopros 0.005 % 0.005 % into_af t 0.005 % fected_ eye_in_ the_eve gera} Aleve Aleve No Aleve Flonase Flonase No Flonase Pantoprazol Pantoprazol No 1{table QD Pantoprazo e Sodium 40 e Sodium 40 t} le Sodium MG MG 40 MG Flonase 50 Flonase 50 No 2{spray QD Flonase 50 MCG/ACT MCG/ACT s_in_ea MCG/ACT ch_nost ril} Benzonatate Benzonatate No 1{capsu TID Benzonatat 200 MG 200 MG le} e 200 MG Atorvastati Atorvastati No QD Atorvastat n Calcium n Calcium in Calcium 20 MG 20 MG 20 MG rOPINIRole rOPINIRole No QD rOPINIRole HCl 1 MG HCl 1 MG HCl 1 MG clonazePAM clonazePAM No 1{table QD clonazePAM 0.5 MG 0.5 MG t_at_be 0.5 MG dtime} Aleve Aleve No Aleve traMADol traMADol No 1{table TID traMADol HCl 50 MG HCl 50 MG t_as_ne HCl 50 MG eded} Flonase Flonase No Flonase Aspirin 81 Aspirin 81 No 1{table QD Aspirin 81 MG MG t} MG acetaZOLAMI acetaZOLAMI No acetaZOLAM DE 250 MG DE 250 MG GAURAV 250 MG Atorvastati Atorvastati No Atorvastat n Calcium n Calcium in Calcium 20 MG 20 MG 20 MG rOPINIRole rOPINIRole No rOPINIRole HCl 1 MG HCl 1 MG HCl 1 MG Carvedilol Carvedilol No BID Carvedilol 3.125 MG 3.125 MG 3.125 MG Latanoprost Latanoprost No 1{drop_ QD Latanopros 0.005 % 0.005 % into_af t 0.005 % fected_ eye_in_ the_eve gera} Furosemide Furosemide No 1{table QD Furosemide 20 MG 20 MG t} 20 MG Melatonin Melatonin No Melatonin Albuterol Albuterol No 1{ml_as QID Albuterol Sulfate (5 Sulfate (5 _needed Sulfate (5 MG/ML) 0.5% MG/ML) 0.5% } MG/ML) 0.5% Anoro Anoro No 1{puff} QD Anoro Ellipta Ellipta Ellipta 62.5-25 62.5-25 62.5-25 MCG/INH MCG/INH MCG/INH Levothyroxi Levothyroxi No QD Levothyrox ne Sodium ne Sodium ine Sodium 88 MCG 88 MCG 88 MCG Levothyroxi Levothyroxi No Levothyrox ne Sodium ne Sodium ine Sodium 88 MCG 88 MCG 88 MCG Daliresp Daliresp No 1{table QD Daliresp 500 MCG 500 MCG t} 500 MCG Pantoprazol Pantoprazol No 1{table QD Pantoprazo e Sodium 40 e Sodium 40 t} le Sodium MG MG 40 MG Flonase 50 Flonase 50 No 2{spray QD Flonase 50 MCG/ACT MCG/ACT s_in_ea MCG/ACT ch_nost ril} traMADol traMADol No 1{table TID traMADol HCl 50 MG HCl 50 MG t_as_ne HCl 50 MG eded} clonazePAM clonazePAM No 1{table QD clonazePAM 0.5 MG 0.5 MG t_at_be 0.5 MG dtime} Aspirin 81 Aspirin 81 No 1{table QD Aspirin 81 MG MG t} MG Albuterol Albuterol No 1{ml_as QID Albuterol Sulfate (5 Sulfate (5 _needed Sulfate (5 MG/ML) 0.5% MG/ML) 0.5% } MG/ML) 0.5% acetaZOLAMI acetaZOLAMI No acetaZOLAM DE 250 MG DE 250 MG GAURAV 250 MG Flonase Flonase No Flonase Levothyroxi Levothyroxi No QD Levothyrox ne Sodium ne Sodium ine Sodium 88 MCG 88 MCG 88 MCG rOPINIRole rOPINIRole No rOPINIRole HCl 1 MG HCl 1 MG HCl 1 MG rOPINIRole rOPINIRole No QD rOPINIRole HCl 1 MG HCl 1 MG HCl 1 MG Aleve Aleve No Aleve Latanoprost Latanoprost No 1{drop_ QD Latanopros 0.005 % 0.005 % into_af t 0.005 % fected_ eye_in_ the_eve gera} Anoro Anoro No 1{puff} QD Anoro Ellipta Ellipta Ellipta 62.5-25 62.5-25 62.5-25 MCG/INH MCG/INH MCG/INH Levothyroxi Levothyroxi No Levothyrox ne Sodium ne Sodium ine Sodium 88 MCG 88 MCG 88 MCG Melatonin Melatonin No Melatonin Furosemide Furosemide No 1{table QD Furosemide 20 MG 20 MG t} 20 MG Benzonatate Benzonatate No 1{capsu TID Benzonatat 200 MG 200 MG le} e 200 MG Atorvastati Atorvastati No Atorvastat n Calcium n Calcium in Calcium 20 MG 20 MG 20 MG Carvedilol Carvedilol No BID Carvedilol 3.125 MG 3.125 MG 3.125 MG Daliresp Daliresp No 1{table QD Daliresp 500 MCG 500 MCG t} 500 MCG Atorvastati Atorvastati No QD Atorvastat n Calcium [...] blood 2022-08-13 20:06:00 158 mm[Hg] Univer sity [facility] Diastolic blood 2022-08-13 20:06:00 100 mm[Hg] Unive [facility] Heart rate 2022-08-13 20:06:00 89 /min [facility] Respiratory rate 2022-08-13 20:06:00 16 /min [facility] [place] [facility] Body height 2022-08-13 20:06:00 175.3 cm [facility] [place] [facility] Body weight 2022-08-13 20:06:00 130.636 kg [facility] [place] [facility] BMI 2022-08-13 20:06:00 42.53 kg/m2 [facility] [place] [facility] Oxygen saturation in 2022-08-13 20:06:00 87 /min [facility] of Arterial blood by [facility] Pulse oximetry Branch Systolic blood 2022-08-05 17:15:00 111 mm[Hg] Univer sity of pressure [place] [facility] Diastolic blood 2022-08-05 17:15:00 73 mm[Hg] Unive rsity of pressure [place] [facility] Heart rate 2022-08-05 17:15:00 97 /min [facility] [place] [facility] Respiratory rate 2022-08-05 17:15:00 26 /min [facility] ers[facility] [place] [facility] Body height 2022-08-05 17:15:00 175.3 cm [facility] [place] [facility] Body weight 2022-08-05 17:15:00 130.636 kg [facility] [place] [facility] BMI 2022-08-05 17:15:00 42.53 kg/m2 [facility] [place] [facility] Oxygen saturation in 2022-08-05 17:15:00 86 /min [facility] of Arterial blood by [facility] Pulse oximetry Branch Systolic blood 2022-06-07 18:07:00 153 mm[Hg] Univer sity of pressure [place] [facility] Diastolic blood 2022-06-07 18:07:00 97 mm[Hg] Unive rsity of pressure [place] [facility] Heart rate 2022-06-07 18:07:00 96 /min [facility] [place] [facility] Body temperature 2022-06-07 18:07:00 36.39 [place] [facility] [place] [facility] Body height 2022-06-07 18:07:00 175.3 cm [facility] [place] [facility] Body weight 2022-06-07 18:07:00 130.636 kg [facility] [place] [facility] BMI 2022-06-07 18:07:00 42.53 kg/m2 [facility] [place] [facility] height 2022-05-07 14:40:00 69 [in_i] [facility] weight 2022-05-07 14:40:00 282 [lb_av] [facility] temperature 2022-05-07 14:40:00 98.0 [degF] [facility] bmi 2022-05-07 14:40:00 41.64 kg/m2 [facility] oximetry 2022-05-07 14:40:00 96 % [facility] respiratory rate 2022-05-07 14:40:00 16 /min [facility] blood pressure 2022-05-07 14:40:00 132 mm[Hg] [facility] systolic [facility] blood pressure 2022-05-07 14:40:00 86 mm[Hg] [facility] diastolic [facility] Procedures Procedure Date / Time Performing Clinician Source Performed DME/SUPPLY JUSTIFICATION 2022-08-13 06:01:00 Doctor Unassigned, No [facility] XR CERVICAL SPINE 2 VW 2022-08-05 17:43:18 Calos Dunaway [facility] XR SHOULDER 2+ VW RIGHT 2022-08-05 17:43:18 [facility] CONSENT/REFUSAL FOR 2022-08-05 17:20:37 Doctor Unassigned, No [facility] DIAGNOSIS AND TREATMENT [facility] ASSIGNMENT OF BENEFITS 2022-08-05 17:02:56 Doctor Unassigned, No [facility] XR SHOULDER 2+ VW RIGHT 2022-06-07 18:28:19 Jethro Dodge [facility] Encounters Start End Encounter Admission Attending Care Care Encounter Source Date/Time Date/Time Type Type Clinicians Facility Department ID 2022-09-03 Outpatient LeeUBALDO [facility] Common 14:13:02 [facility] 2022-07-30 Outpatient LeeSTEKATERINARAVINDER [facility] Common 15:03:01 [facility] 2022-05-07 Outpatient [place], STLMLC STLMLC [id number] Common 14:36:03 [facility] [id number] [facility] 2022-10-21 2022-10-21 Outpatient R HAYLEE [facility] [id number] Univers 13:00:00 13:00:00 keisha BAKER of [facility] 2022-10-17 2022-10-17 (TEL) STLMLC STLMLC [id number] Co mmon 00:00:00 00:00:00 [facility] 2022-10-15 2022-10-15 Outpatient R DEANA [facility] [id number] Univers 14:00:00 14:00:00 MARTIN valdes [facility] 2022-10-15 2022-10-15 [facility] 1.2.971.384 [id number] Univers 00:00:00 00:00:00 Martin ADDISON 350.1.13.10 ity of [place] [phone] [address] [facility] 2022-10-08 2022-10-08 (TEL) STLMLC STLMLC [id number] Co mmon 00:00:00 00:00:00 [facility] 2022-09-11 2022-09-11 (TEL) STLMLC STLMLC [id number] Co mmon 00:00:00 00:00:00 [facility] 2022-09-10 2022-09-10 Outpatient R SHILO [facility] [id number] Univers 16:00:00 16:00:00 JETHRO valdes [facility] 2022-09-06 2022-09-06 [facility]phone [facility] 1.2.840.114 [id number] Univers 00:00:00 00:00:00 MAXI baker 350.1.13.10 ity of [facility] CARE [place] AT [phone] Id natalya[address] 2022-09-06 2022-09-06 Telephone Lanny [facility] 1.2.136.184 [id number] Univers 00:00:00 00:00:00 Sheryl [facility] 350.1.13.10 ity of [place] 4.2.7.2.686 [facility] [phone] [facility] [place] [address] [facility] 2022-08-13 2022-08-13 Outpatient R [facility] [id number] Univers 14:00:00 15:50:10 ASHLEY, ity of [facility] 2022-08-13 2022-08-13 Office Sheryl Ca [facility] 1.2.840.114 [id number] Univers 14:00:00 15:50:10 Visit [facility] 350 .1.13.10 ity of [facility] 4.2..2.[address] [place] [address] [phone] [facility] [place] [address] [facility] 2022-08-13 2022-08-13 Orders Doctor NESS 1.2.840.114 [id number] Univers 00:00:00 00:00:00 Only Unassigned, VANESSA 350.1.13.10 ity of [place] [address] [place] [address] [phone] [facility] [address] 2022-08-07 2022-08-07 (TEL) [facility] [id number] Co mmon 00:00:00 00:00:00 [facility] 2022-08-05 2022-08-05 Hospital [facility] 1.2.840.114 [id number] Univers 11:21:07 23:59:00 Encounter ashley [facility] 350.1.13.10 ity of [facility] 42.7.[address] [place] [address] [phone] [facility] PRIMARY & [address] SPECIALTY CARE 2022-08-05 2022-08-05 Office [facility] 1.2.840.114 [id number] Univers 11:40:00 12:00:00 [facility] 350.1.13.10 it y of [address]686 [facility] [phone] [facility] PRIMARY & [address] SPECIALTY CARE 2022-08-05 2022-08-05 [facility] [id number] Univers 11:40:00 11:40:00 david BAKERy of [facility] 2022-08-05 2022-08-05 Orders Doctor NESS 1.2.840.114 [id number] Univers 00:00:00 00:00:00 Only Unassigned, VANESSA 350.1.13.10 ity of [place] [address] [place] [address] [phone] [facility] [address] 2022-07-29 2022-07-29 Outpatient [facility] [id number] Univers 16:00:00 16:00:00 ANDREAdavid AD[facility] 2022-06-24 2022-06-24 Outpatient [facility] [id number] Univers 11:40:00 11:40:00 WYdavid [facility] 2022-06-07 2022-06-07 [facility] 1.2.840.114 [id number] Univers 13:11:58 23:59:00 Encounter Jethro SPECIALTY 350.1.13.10 ity of [place] [address] [place] [address] AT [phone] Id terrence HOOK 809 [facility] 2022-06-07 2022-06-07 Office [facility] 1.2.934.392 [id number] Univers 13:20:00 13:44:39 Visit Jethro SPECIALTY 350.1.13.10 ity of [facility] 4.2.7.2.686 [facility] CENTER AT [phone] Id terrence HOOK 198 [facility] 2022-06-07 2022-06-07 [facility] [id number] Univers 13:20:00 13:44:39 JETHRO ity [facility] 2022-06-07 2022-06-07 Outpatient [facility] [id number] Univers 13:20:00 13:44:39 JETHRO chiki [facility] 2022-06-07 2022-06-07 Outpatient Pepper DODGE [facility] [id number] Univers 13:20:00 13:20:00 JETHRO y [facility] 2022-05-30 2022-05-30 Outpatient Pepper DODGE [facility] [id number] Univers 13:10:00 13:10:00 JETHRO chiki [facility] 2022-05-22 2022-05-22 Orders Doctor THI 1.2.840.114 [id number] Univers 00:00:00 00:00:00 Only Unassigned, VANESSA 350.1.13.10 ity of [place] HOSPITAL 4.2.7.2.686 Satish as [phone] [address] 2022-05-07 2022-05-07 OFFICE STLC STLC [id number] Co mmon 00:00:00 00:00:00 VISIT Spirit [facility] PT - CHI LEVEL 4 [facility] 2022-05-07 2022-05-07 (TEL) STLC STLC [id number] Co mmon 00:00:00 00:00:00 [facility] 2022-04-18 2022-04-18 Orders Doctor THI 1.2.840.114 [id number] Univers 00:00:00 00:00:00 Only Unassigned, VANESSA 350.1.13.10 ity of [place] HOSPITAL 4.2.7.2.686 Satish as [phone] [address] 2021-06-15 2021-06-15 Office Christa King [facility] Michael 1.2.840.114 [id number] Univers 14:04:32 15:05:28 Visit Koki Girard 350.1.13.10 it y of [place] 4.2.[place].2.[place] [phone] [facility] [address] 2021-06-15 2021-06-15 Outpatient R CHRISTA KING [facility] [id number] Univers 14:30:00 14:30:00 ity [facility] 2021-06-08 2021-06-08 Outpatient R CHRISTA KING [facility] [id number] Univers 14:00:00 14:00:00 ity of [facility] 2021-06-04 2021-06-04 Outpatient R JESSE ARREDONDO [facility] [id number] Univers 13:00:00 13:00:00 ity [facility] 2021-01-25 2021-01-25 Orders Doctor NESS 1.2.840.114 [id number] 00:00:00 00:00:00 Only Unassigned, VANESSA 350.1.13.10 [place] [facility] 4.2.7.2.686 [id number] 009 2021-01-25 2021-01-25 Orders Doctor NESS 1.2.840.114 [id number] Univers 00:00:00 00:00:00 Only Unassigned, VANESSA 350.1.13.10 ity of [place] HOSPITAL 4.2.7.2.686 Satish as [phone] [address] 2021-01-15 2021-01-15 Orders Doctor NESS 1.2.840.114 [id number] 00:00:00 00:00:00 Only Unassigned, VANESSA 350.1.13.10 [place] [facility] 4.2.7.2.686 [id number] 009 2021-01-15 2021-01-15 Orders Doctor NESS 1.2.840.114 [id number] Univers 00:00:00 00:00:00 Only Unassigned, VANESSA 350.1.13.10 ity of [place] HOSPITAL 4.2.7.2.686 Satish as [phone] [address] 2020-11-17 2020-11-17 Case Ronaldo [facility] 1.2.840.114 [id number] 22 00:00:00 00:00:00 Management [place] ADDISON 350.1.13.10 UMU 4.2.7.2.686 [place] [phone] [facility] 085 [facility] 2020-11-17 2020-11-17 Transition Molly Hernandez 1.2.840.114 [id number] 00:00:00 00:00:00 of Care Viviana Chiu 350.1.13.10 [place] 4.2.7.2.686 [id number] 403 2020-11-17 2020-11-17 Transition Molly Hernandez 1.2.840.114 [id number] Univers 00:00:00 00:00:00 of Care Viviana Chiu 350.1.13.10 i ty of [place].2.7.2.[place] [id number] [facility] [address] 2020-11-17 2020-11-17 Case [facility] 1.2.840.114 [id number] Univers 00:00:00 00:00:00 Management [facility] 350.1.13.10 ity of [facility] 4.2.7.2.686 [place] [phone] [facility] [place] [address] DI[facility]ES [facility]INIC 2020-11-12 2020-11-16 [facility] Jeronimo [place]ogue 1.2.840.1 14 [id number] 18:33:00 16:20:00 Encounter Julian Gonzales 350.1.13.10 [facility] 4.2.7.2.68 Sammie Tarango [id number] Tyler Trevizo SungChu kim Shahzad Suthar, Krishna Moreno 2020-11-12 2020-11-16 Inpatient X [facility] [id number] Univers 18:33:00 16:20:00 CHU ity of [facility] 2020-11-12 2020-11-16 [facility] Jeronimo [place] 1.2.840.1 14 [id number] Univers 18:33:00 16:20:00 Encounter Julian Gonzales 350.1.13.10 ity of [facility] 4.2.7.2.686 Sammie Matthew [phone] Medical Tyler Trevizo Nithya [place] Chu Marin Morenojewel Trevizo, Tyler Marin, Chu Moreno 2020-11-14 2020-11-14 Telephone [facility] 1.2.840.114 [id number] 00:00:00 00:00:00 yonion, SPECIALTY 350.1.13.10 [place] CARE 4.2.7.2.686 CENTER AT [phone] [facility] 2020-11-14 2020-11-14 Telephone [facility] 1.2.840.114 [id number] Univers 00:00:00 00:00:00 andreaumon, SPECIALTY 350.1.13.10 ity of [place] CARE 4.2.[place].2.686 [place] AT [phone] [address] 2020-11-13 2020-11-13 Transition Molly [place] 1.2.840.114 [id number] 00:00:00 00:00:00 of Care Lizbeth Chiu 350.1.13.10 [place] 4.2.7.2.686 [phone] [facility] 2020-11-13 2020-11-13 Transition Molly [place] 1.2.840.114 [id number] Univers 00:00:00 00:00:00 of Care Lizbeth Chiu 350.1.13.10 it y of [place] 4.2.7.2.686 [place] [phone] [address] 2020-11-07 2020-11-11 [facility] Mykel [facility] [place] 1.2.840.1 14 [id number] 06:48:00 14:50:00 Encounter Annette Conrad 350.1.13.10 [place] 4.2.7.2.686 Annette Conrad [place] [id number] 080 2020-11-07 2020-11-11 Inpatient X DEEDEE CONRAD [facility] [id number] Univers 06:48:00 14:50:00 ANNETTE valdes [facility] 2020-11-07 2020-11-11 [facility] Mykel [facility] 1.2.840.1 14 [id number] Univers 06:48:00 14:50:00 Encounter Annette Conrad 350.1.13.10 ity of [place] 4.2.7.2.686 [facility] [phone] [place] 669430 Branch 2020-07-12 2020-07-12 Hospital HarmonyTyesha Carrin 1.2.840.114 [id number] 11:56:24 23:59:00 Encounter ashley, Pediatric 350.1.13.10 [place] and 4.2.7.2.686 Adult [id number] Primary 809 Care Clinic 2020-07-12 2020-07-12 [facility] 1.2.840.114 [id number] [facility] 11:56:24 23:59:00 Encounter ashley Pediatric 350.1.13.10 ity of [place] and 4.2.7.2.686 [place] [phone] [facility] Primary [address] [facility] 2020-07-12 2020-07-12 Office Harmony-Zane Ybarra 1.2.840.114 [id number] 11:00:10 13:58:54 Visit ashley Pediatric 350.1.13.10 [place] and 4.2.7.2.686 Adult [id number] Primary 198 Care Clinic 2020-07-12 2020-07-12 Office [facility] 1.2.840.114 [id number] [facility] 11:00:10 13:58:54 Visit ashley Pediatric 350.1.13.10 ity of [place] and 4.2.7.2.686 [place] Adult [id number] [facility] [address] [facility] 2020-07-12 2020-07-12 Outpatient R HARMONY-ZANE [facility] [id number] Univers 11:00:00 11:00:00 ASHLEY ity of [place] [facility] 2020-07-03 2020-07-03 Orders Doctor NESS 1.2.840.114 [id number] 00:00:00 00:00:00 Only Unassigned, VANESSA 350.1.13.10 [place] [facility] 4.2.7.2.686 [id number] 009 2020-07-03 2020-07-03 Orders Doctor THI 1.2.840.114 [id number] Univers 00:00:00 00:00:00 Only Unassigned, VANESSA 350.1.13.10 ity of [place] HOSPITAL 4.2.7.2.686 Satish as [id number] [address] 2020-06-02 2020-06-02 Office [facility] 1.2.840.114 [id number] Univers 12:31:11 14:20:12 Visit Edilma mAador 350.1.13.10 ity of [place] 4.2.7.2.686 [place] Profess[place] [phone] [address] 2020-06-02 2020-06-02 Out[facility] [id number] Univers 13:00:00 13:00:00 EDILMA ity [facility] 2020-06-02 2020-06-02 Orders Doctor THI 1.2.840.114 [id number] Univers 00:00:00 00:00:00 Only Unassigned, VANESSA 350.1.13.10 ity of [place] [facility] 4.2.7.2.686 Satish as [phone] [address] 2020-05-26 2020-05-26 Outpatient R [facility] [id number] Univers 10:45:00 10:45:00 EDILMA ity [facility] 2020-05-26 2020-05-26 [facility] 1.2.840.114 [id number] Univers 08:07:24 08:37:24 ne Visit Edilma Amador 350.1.13.10 ity of [place] 4.2.7.2.686 [place] [phone] Id dic[address] 2020-05-12 2020-05-12 Outpatient R [facility] [id number] Univers 13:00:00 13:00:00 EDILMA ity [facility] 2020-04-25 2020-04-25 [facility] 1.2.840.114 [id number] Univers 15:50:23 23:59:00 Encounter Edilma Amador 350.1.13.10 ity of [place] 4.2.7.2.686 [place] [facility] [phone] [facility] [address] 2020-04-25 2020-04-25 Outpatient R [facility] [id number] Univers 00:00:00 00:00:00 EDILMA valdes [facility] 2020-04-25 2020-04-25 Orders Doctor THI 1.2.840.114 [id number] Univers 00:00:00 00:00:00 Only Unassigned, VANESSA 350.1.13.10 ity of [place] [facility]OSPITAL 4.2.7.2.686 Satish as [phone] [facility] [address] 2020-04-14 2020-04-14 Office [facility] 1.2.840.114 [id number] Univers 14:15:54 14:56:38 Visit Edilma Rueda Perry 350.1.13.10 ity of [place] 4.2.7.2.686 [facility] [phone] Id dical [address] 2020-04-14 2020-04-14 Outpatient R [facility] [id number] Univers 13:30:00 13:30:00 EDILMA valdes [facility] 2020-04-13 2020-04-13 Orders Doctor THI 1.2.840.114 [id number] Univers 00:00:00 00:00:00 Only Unassigned, VANESSA 350.1.13.10 ity of [place] [facility]OSPITAL 4.2.7.2.686 Satish as [phone] [facility] [address] 2019-11-01 2019-11-01 Telephone [facility] 1.2.840.114 [id number] Univers 00:00:00 00:00:00 Jethro HEALTH 350.1.13.10 it y of [place] 4.2.7.2.686 [place] [phone] [facility] Primary & [address] Specialty Care 2019-10-28 2019-10-28 Telephone [facility] 1.2.840.114 [id number] Univers 00:00:00 00:00:00 Jethro HEALTH 350.1.13.10 it y of [place] 4.2.7.2.686 [place] [facility] [phone] [facility] Primary & [address] Specialty Care 2019-10-26 2019-10-26 Office [facility] 1.2.840.114 [id number] Univers 14:08:12 15:44:07 Visit Jethro ESTES 350.1.13.10 it y of [place] 4.2.7.2.686 [facility] [phone] [facility] Primary & [address] Specialty Care 2019-10-07 2019-10-07 Telephone [facility] 1.2.840.114 [id number] Univers 00:00:00 00:00:00 Jethro ZAVALA 350.1.13.10 i ty of [facility] 4.2.7.2.686 [place] [id number] [facility] [address] 2019-10-06 2019-10-06 Outpatient [facility] [id number] Univers 10:39:27 23:59:00 JETHRO ity of [facility] 2019-10-06 2019-10-06 [facility] Aleida Zhao 1.2.170.277 [id number] 2428 Univers 10:39:00 23:59:00 Encounter Jethro Vanessa 350.1.13.10 ity of [facility] 4.2.7.2.686 Satish [place] [id number] [facility] [address] 2019-10-06 2019-10-06 [facility] Aleida Zhao 1.2.346.114 [id number] Univers 09:41:27 16:32:00 Encounter Jethro Vanessa 350.1.13.10 ity of [facility] 4.2.7.2.686 Satish as [phone] [facility] [address] 2019-10-06 2019-10-06 Orders Doctor THI 1.2.840.114 [id number] Univers 00:00:00 00:00:00 Only Unassigned, VANESSA 350.1.13.10 ity of [place] [facility]OSPITAL 4.2.7.2.686 Satish as [id number] [facility] [address] 2019-05-28 2019-05-28 Office [facility] 1.2.840.114 [id number] Univers 13:10:51 15:03:17 Visit Nesha Amador 350.1.13.10 i ty of [place] 4.2.7.2.686 Roxanne Porter [phone] Id dical nal [address] Building Results Test [...] NOT 1092) ACCURATE CRE ATININE CLEARANCE IN RI EDICTING GLOMERULAR FILT RATION RATE. ESTIMATED GFR [...] 0-0 (BEAKER) (test code = 413) 0.00POCT-GLUCOSE [id number] 17:50:00 Test Item Value Reference Range Interpretation Comments POC-GLUCOSE METER 118 mg/dL 70-110 H TESTED AT [place] [address] ([facility]) (test code = [facility] Pepper [facility] 1538) 33373 POCT-GLUCOSE [id number] 11:59:00 Test Item Value Reference Range Interpretation Comments POC-GLUCOSE METER 247 mg/dL 70-110 H TESTED AT [place] [address] ([facility]) (test code = [facility] Pepper [facility] 1538) 62540 POCT-GLUCOSE [id number] 07:54:00 Test Item Value Reference Range Interpretation Comments POC-GLUCOSE METER 141 mg/dL 70-110 H TESTED AT [place] [address] ([facility]) (test code = [facility] 1538) [address] CBC W/PLT COUNT & AUTO [id number] 03:45:00 Test Item Value Reference Range Interpretation [...] K/ L 0.00-0.20 (test code = 417) [id number] 03:29:00 Test Item Value Reference Range Interpretation Comments MAGNESIUM (BEAKER) 1.8 mg/dL 1.6-2.6 Specimen slightly (test code = 627) hemolyzed BASIC METABOLIC [id number] 03:29:00 Test Item Value Reference Range Interpretation [...] NOT APPLICABLE FOR DIALYSIS PATIEN TS. POCT-GLUCOSE [id number] 00:05:00 Test Item Value Reference Range Interpretation Comments POC-GLUCOSE METER 117 mg/dL 70-110 H TESTED AT [facility] 6720 (BEAKER) (test code = DEANANH Pepper [place] 1538) [address] POCT-GLUCOSE [id number] 18:17:00 Test Item Value Reference Range Interpretation Comments POC-GLUCOSE METER 141 mg/dL 70-110 H TESTED AT [facility] 6720 ([facility]) (test code = [facility] Pepper [place] 1538) [address] CREATINE KINASE (CK), TOTAL AND [id number] 15:43:00 Test Item Value Reference Range Interpretation Comments CREATINE KINASE TOTAL (BEAKER) 31 U/L 29-200 (test code = 380) CREATINE KINASE-MB (BEAKER) (test 1.3 ng/mL 0.0-6.6 code = 750) CREATINE KINASE-MB INDEX (BEAKER) 4.2 % (test code = 395) Effective 08/09/2014: CK-MB Reference Range ChangeNew: 0.0-6.6 Previous: 0.0-4.9CK-MB Reference Range:<6.7 Normal6.7-10.0 Borderline>10.0 Abnormal BLOOD GAS, [id number] 15:26:00 Test Item Value Reference Range Interpretation [...] H (test code = 387) PATIENT TEMPERATURE ([facility]) 37.5 C (test code = 1818) FIO2 ([facility]) (test code = 1819) 35.0 % POCT-GLUCOSE [id number] 11:45:00 Test Item Value Reference Range Interpretation Comments POC-GLUCOSE METER 122 mg/dL 70-110 H TESTED AT [facility] 6720 ([facility]) (test code = KISHA GARCÍ[place] 1538) [address] CREATINE KINASE (CK), TOTAL AND [id number] 10:29:00 Test Item Value Reference Range Interpretation Comments CREATINE KINASE TOTAL ([facility]) 31 U/L 29-200 (test code = 380) CREATINE KINASE-MB ([facility]) (test 1.5 ng/mL 0.0-6.6 code = 750) CREATINE KINASE-MB INDEX ([facility]) 4.8 % (test code = 395) Effective 08/09/2014: CK-MB Reference Range ChangeNew: 0.0-6.6 Previous: 0.0-4.9CK-MB Reference Range:<6.7 Normal6.7-10.0 Borderline>10.0 Abnormal TROPONIN [id number] 10:29:00 Test Item Value Reference Range Interpretation Comments TROPONIN I ([facility]) (test code = 397) < ng/mL [...] failure, acidosis, acute neurological disease, and persistent tachyarrhythmia.[id number] 10:22:00 Test Item Value Reference Range Interpretation Comments PARTIAL THROMBOPLASTIN TIME 22.5 seconds 22.5-36.0 ([facility]) (test code = 760) PROTHROMBIN TIME/[id number] 10:21:00 Test Item Value Reference Range Interpretation Comments PROTIME (BEAKER) (test code = 12.4 seconds 11.7-14.7 759) INR (BEAKER) (test code = 370) 0.9 <=5.9 RECOMMENDED COUMADIN/WARFARIN INR THERAPY RANGESSTANDARD DOSE: 2.0 - 3.0 Includes: PROPHYLAXIS for venous thrombosis, systemic embolization; TREATMENT for venous thrombosis and/or pulmonary embolus.HIGH RISK: Target INR is 2.5-3.5 for patients with mechanical heart valves.BLOOD GAS, [id number] 10:17:00 Test Item Value Reference Range Interpretation [...] (test code = 1819) 40.0 % PLATELET [id number] 10:13:00 Test Item Value Reference Range Interpretation Comments PLATELET COUNT (BEAKER) (test 111 K/CU MM 150-430 L code = 756)
[2022-10-19 20:32] LABS: Potassium 4.4 mmol/L (3.5-5.1); Troponin High Sensitivity 28.6 pg/mL (<58.9)
--- NOTE | 2022-10-19 20:48 | RAD REPORT ---
EXAM DESCRIPTION: Nel Single View10/19/2022 8:15 pm CLINICAL HISTORY: sob COMPARISON: September 13, 2023 FINDINGS: Mild bilateral interstitial lung opacities. Heart is mildly enlarged IMPRESSION: No acute abnormalities displayed
[2022-10-19 20:52] LABS: Blood Morphology Comment NOTED (NOT SEEN); Platelet Estimate DECR; Platelets, Giant NOTED; Polychromasia SLIGHT
[2022-10-19 20:53] LABS: Basophilic Stippling 2+
--- NOTE | 2022-10-19 20:58 | EDPHYS ---
Physician Documentation [facility] Name: Vikki Zamudio Age: 62 yrs Sex: Female : 1960 Arrival Date: 10/19/2022 Time: 19:28 Bed 7 Private MD: ED Physician Maxx Ernst HPI: 10/19 22:36 This 62 yrs old Female presents to ER via EMS with complaints of shortness of bretah. kb 22:36 The patient has shortness of breath at rest. Onset: The symptoms/episode began/occurred kb 3 day(s) ago, and became worse today. Duration: The symptoms are continuous. The patient's shortness of breath is aggravated by nothing, is alleviated by nothing. Associated signs and symptoms: The patient has no apparent associated signs or symptoms. Severity of symptoms: At their worst the symptoms were severe in the emergency department the symptoms have improved. The patient has not experienced similar symptoms in the past. The patient has not recently seen a physician. Pt reports shortness of breath for 3 days, worse today. EMS reports o2 sat in the 70s upon their arrival to pt. . Historical: - Allergies: 19:32 No Known Allergies; mb9 - PMHx: 19:32 CHF; Sleep Apnea; COPD; GERD; High Cholesterol; Hypercarbia; Hypertension; mb9 Hypothyroidism; Panic Attacks; - PSHx: 19:32 None; mb9 - Immunization history:: Adult Immunizations up to date. - Social history:: Smoking status: Patient/guardian denies using tobacco. ROS: 22:35 Constitutional: Negative for fever, chills, and weight loss. kb 22:35 Respiratory: Positive for dyspnea on exertion, shortness of breath. 22:35 All other systems are negative. Exam: 20:09 Constitutional: This is a well developed, well nourished patient who is awake, alert, kb and in no acute distress. Head/Face: Normocephalic, atraumatic. ENT: Moist Mucous membranes Cardiovascular: Regular rate and rhythm with a normal S1 and S2. No gallops, murmurs, or rubs. No pulse deficits. Abdomen/GI: Soft, non-tender. No distention Skin: Warm, dry with normal turgor. Normal color. MS/ Extremity: Pulses equal, no cyanosis. Neurovascular intact. Full, normal range of motion. Neuro: Awake and alert, GCS 15, oriented to person, place, time, and situation. Moves all extremities. Normal gait. Psych: Awake, alert, with orientation to person, place and time. Behavior, mood, and affect are within normal limits. 20:09 ECG was reviewed by the Attending Physician. 20:09 Respiratory: moderate respiratory distress is noted, Respirations: labored breathing, Breath sounds: decreased breath sounds, that are moderate, are located in both bases. Vital Signs: 19:28 BP 135 / 71; Pulse 84; Resp 24; Pulse Ox 84% on 3 lpm NC; mb9 19:30 Pulse Ox 84% on 6 lpm NC; mb9 19:51 BP 123 / 50; Pulse 81; Resp 20; Pulse Ox 100% on 60% BiPAP; mb9 20:28 Temp 98.3(A); Weight 127.91 kg; vc1 20:49 BP 123 / 84; Pulse 75; Resp 20; Pulse Ox 100% on 60% BiPAP; mb9 21:28 BP 112 / 67; Pulse 76; Resp 20; Pulse Ox 100% on 60% BiPAP; mb9 MDM: 19:38 Patient medically screened. kb 20:50 Data reviewed: vital signs, nurses notes. kb 22:34 Differential diagnosis: Bronchitis CHF exacerbation, Chronic Obstructive Pulmonary kb Disease pneumonia. Antibiotic administration: Not indicated, the patient does not have an appreciated infiltrate. Consideration of Admission/Observation Patient was admitted/placed on observation. Management of patient was discussed with the following: Hospitalist: Viola accepts pt for admission under Dr Young. Historians other than the Patient: EMS: [facility]. Care significantly affected by the following chronic conditions: Congestive Heart Failure, Chronic Obstructive Pulmonary Disease. Counseling: I had a detailed discussion with the patient and/or guardian regarding: the historical points, exam findings, and any diagnostic results supporting the discharge/admit diagnosis, lab results, radiology results, the need for further work-up and treatment in the hospital. 10/19 19:39 Order name: Basic Metabolic Panel; Complete Time: 20:50 kb 10/19 19:39 Order name: CBC with Diff; Complete Time: 20:57 kb 10/19 19:39 Order name: NT PRO-BNP; Complete Time: 20:50 kb 10/19 19:39 Order name: Troponin HS; Complete Time: 20:50 kb 10/19 20:15 Order name: Manual Differential; Complete Time: 20:57 EDMS 10/19 21:00 Order name: SARS RAPID; Complete Time: 21:22 mb9 10/19 19:39 Order name: XRAY Chest (1 view); Complete Time: 20:50 kb 10/19 19:39 Order name: EKG; Complete Time: 19:39 kb 10/19 19:39 Order name: Cardiac monitoring; Complete Time: 19:51 kb 10/19 19:39 Order name: EKG - Nurse/Tech; Complete Time: 19:52 kb 10/19 19:39 Order name: IV Saline Lock; Complete Time: 19:52 kb 10/19 19:39 Order name: BIPAP kb 10/19 19:39 Order name: Labs collected and sent; Complete Time: 20:07 kb 10/19 19:39 Order name: O2 Per Protocol; Complete Time: 19:51 kb 10/19 19:39 Order name: O2 Sat Monitoring; Complete Time: 19:51 kb EC:09 Rate is 80 beats/min. Rhythm is regular. QRS [place] is Normal. MI interval is normal at kb 170 msec. QRS interval is normal at 96 msec. QT interval is normal at 442 msec. Administered Medications: 20:07 Drug: DuoNeb (albuterol 2.5 mg, ipratropium 0.5 mg) (3:1) (2.5 mg - 0.5 mg) 3 ml Route: mb9 Nebulizer; 20:43 Follow up: Response: No adverse reaction mb9 20:07 Drug: SOLU-Medrol (methylPrednisoLONE) 125 mg Route: IVP; Site: left antecubital; mb9 20:43 Follow up: Response: No adverse reaction mb9 Disposition: 23:25 Co-signature as Attending Physician, Maxx Ernst DO I reviewed the patient's care ms3 provided by the Advanced Practice Provider and agree with the diagnosis and treatment plan. Disposition Summary: 10/19/22 20:58 Hospitalization Ordered Hospitalization Status: Inpatient Admission kb Provider: Sarah Young Location: Telemetry/MedSurg (Inpatient) kb Condition: Fair kb Problem: an acute exacerbation kb Symptoms: are unchanged kb Bed/Room Type: Standard Room Assignment: 408(10/19/22 21:24) wm Diagnosis - COPD/ Chronic obstructive pulmonary disease with (acute) exacerbation kb - Hypoxia kb Forms: - Medication Reconciliation Form kb - SBAR form kb Signatures: Dispatcher [employer] EDLo Livingston, NAWAF COON-Maxx Reno, DO DO ms3 Shauna Blackman Minal Vásquez, RN RN mb9 Corrections: (The following items were deleted from the chart) 19:36 19:32 Social history: [facility] 19:37 19:33 Social history: Smoking status: Patient/guardian denies using tobacco, 9 mb9 21:24 20:58 kb wm
--- NOTE | 2022-10-19 20:58 | ER ---
Nurse's Notes [facility] Name: Vikki Zamudio Age: 62 yrs Sex: Female : 1960 Arrival Date: 10/19/2022 Time: 19:28 Bed 7 Private MD: Diagnosis: COPD/ Chronic obstructive pulmonary disease with (acute) exacerbation;Hypoxia Presentation: 10/19 19:28 Chief complaint: EMS states: "pt has been having difficulty breathing for the past mb9 three days and it's getting worse. Pt was 75% on 3 L/min on arrival. Pt uses Bipap at home but recently had it taken away". Coronavirus screen:. Ebola Screen: No symptoms or risks identified at this time. Initial Sepsis Screen: Does the patient meet any 2 criteria? No. Patient's initial sepsis screen is negative. Does the patient have a suspected source of infection? No. Patient's initial sepsis screen is negative. Risk Assessment: Do you want to hurt yourself or someone else? Patient reports no desire to harm self or others. Onset of symptoms was October 16, 2022. 19:28 Method Of Arrival: EMS: [facility] mb9 19:28 Acuity: LIZETH 3 mb9 Historical: - Allergies: 19:32 No Known Allergies; mb9 - PMHx: 19:32 CHF; Sleep Apnea; COPD; GERD; High Cholesterol; Hypercarbia; Hypertension; mb9 Hypothyroidism; Panic Attacks; - PSHx: 19:32 None; mb9 - Immunization history:: Adult Immunizations up to date. - Social history:: Smoking status: Patient/guardian denies using tobacco. Screenin:30 [facility] ED Fall Risk Assessment (Adult) History of falling in the last 3 months, mb9 including since admission No falls in past 3 months (0 pts) Confusion or Disorientation No (0 pts) Intoxicated or Sedated No (0 pts) Impaired Gait No (0 pts) Mobility Assist Device Used No (0 pt) Altered Elimination No (0 pt) Score/Fall Risk Level 0 - 2 = Low Risk Oriented to surroundings, Maintained a safe environment. Abuse screen: Denies threats or abuse. Nutritional screening: No deficits noted. Tuberculosis screening: No symptoms or risk factors identified. Assessment: 19:28 General: Appears uncomfortable, Behavior is anxious. Pain: Denies pain. Neuro: Level of mb9 Consciousness is awake, alert, obeys commands, Oriented to person, place, time, situation, Appropriate for age. Cardiovascular: Heart tones S1 S2 present Capillary refill < 3 seconds is brisk Patient's skin is warm and dry. Rhythm is atrial fibrillation. Respiratory: Airway is patent Respiratory effort is labored, using tripod position, Respiratory pattern is tachypnea Breath sounds with wheezes bilaterally. 19:28 Derm: Skin is fragile, Skin is moist, Skin is pale, Skin temperature is cool. mb9 19:46 Reassessment: RT at bedside. mb9 20:53 Reassessment:. General: Appears comfortable, Behavior is calm, cooperative, appropriate mb9 for age. Pain: Denies pain. Neuro: Level of Consciousness is awake, alert, obeys commands, Oriented to person, place, time, situation, Appropriate for age. Respiratory: Airway is patent Respiratory effort is even, unlabored, Respiratory pattern is regular, symmetrical. Derm: Skin is pink, warm \\T\\ dry. Vital Signs: 19:28 BP 135 / 71; Pulse 84; Resp 24; Pulse Ox 84% on 3 lpm NC; mb9 19:30 Pulse Ox 84% on 6 lpm NC; mb9 19:51 BP 123 / 50; Pulse 81; Resp 20; Pulse Ox 100% on 60% BiPAP; mb9 20:28 Temp 98.3(A); Weight 127.91 kg; vc1 20:49 BP 123 / 84; Pulse 75; Resp 20; Pulse Ox 100% on 60% BiPAP; mb9 21:28 BP 112 / 67; Pulse 76; Resp 20; Pulse Ox 100% on 60% BiPAP; mb9 ED Course: 19:28 Patient arrived in ED. mb9 19:30 Maxx Ernst DO is Attending Physician. ms3 19:30 Placed in gown. Bed in low position. Call light in reach. Side rails up X 1. Client mb9 placed on continuous cardiac and pulse oximetry monitoring. NIBP monitoring applied. cartridge assembling machine adjuster on. 19:30 Door closed. Noise minimized. Warm blanket given. mb9 19:32 Triage completed. mb9 19:32 Arm band placed on. mb9 19:38 Lo Girard FNP-C is PHCP. kb 19:52 Maintain EMS IV. Dressing intact. Good blood return noted. Site clean \\T\\ dry. Gauge \\T\\ mb 9 site: 20 gauge in left AC. 20:07 Basic Metabolic Panel Sent. mb9 20:07 CBC with Diff Sent. mb9 20:07 NT PRO-BNP Sent. mb9 20:07 Troponin HS Sent. mb9 20:17 XRAY Chest (1 view) In Process Unspecified. EDMS 20:55 No provider procedures requiring assistance completed. mb9 20:57 Sarah Young MD is Hospitalizing Provider. kb 20:59 Minal Sim, RN is Primary Nurse. mb9 21:03 SARS RAPID Sent. mb9 21:35 Patient admitted, IV remains in place. mb9 Administered Medications: 20:07 Drug: DuoNeb (albuterol 2.5 mg, ipratropium 0.5 mg) (3:1) (2.5 mg - 0.5 mg) 3 ml Route: mb9 Nebulizer; 20:43 Follow up: Response: No adverse reaction mb9 20:07 Drug: SOLU-Medrol (methylPrednisoLONE) 125 mg Route: IVP; Site: left antecubital; mb9 20:43 Follow up: Response: No adverse reaction mb9 Medication: 20:55 VIS not applicable for this client. mb9 Outcome: 20:58 Decision to Hospitalize by Provider. kb 21:38 Admitted to Tele accompanied by tech, via stretcher, room 408, with oxygen, with chart, mb9 Report called to DULCE Nicholson 21:38 Condition: stable 22:03 Patient left the ED. mb9 Signatures: Dispatcher [employer] EDMS Lo Girard, NAWAF COON-Maxx Reno, DO ms3 Damaris Dutta, RN RN vc1 Minal Sim, RN RN mb9 Corrections: (The following items were deleted from the chart) 19:32 19:28 Chief complaint: EMS states: "pt has been having difficulty breathing for the mb9 past three days and it's getting worse. Pt was 75% on 3 L/min on arrival. Placed pt on nonrebreather and oxygen saturation went up to 90%." mb9 19:36 19:28 Acuity: LIZETH 2 mb9 mb9 19:36 19:32 Social history: mb9 mb9 19:37 19:33 Social history: Smoking status: Patient/guardian denies using tobacco, mb9 mb9 20:18 19:37 Pulse Ox 90% 4 lpm Nasal Cannula; mb9 mb9
[2022-10-19 21:18] LABS: SARS-CoV-2 Antigen Rapid Res Negative (Negative)
[2022-10-19] MEDS ORDERED: ONDANSETRON 4 MG/2 ML VIAL IV PRN (21:47)
[2022-10-19] MEDS ORDERED: IPRATROPIUM BROM 0.5MG/2.5ML NEB PRN (21:47)
--- NOTE | 2022-10-19 22:32 | P.HP ---
Certification for Inpatient Patient admitted to: Inpatient With expected LOS: >2 Midnights Patient will require the following post-hospital care: None Practitioner: I am a practitioner with admitting privileges, knowledge of patient current condition, hospital course, and medical plan of care. Services: Services provided to patient in accordance with Admission requirements found in Title 42 Section 412.3 of the Code of Federal Regulations Patient History Date of Service: 10/20/22 Reason for admission: COPD Exacerbation History of Present Illness: Patient is a 62-year-old female with history of severe COPD on chronic home oxygen3 L with home NIV, CHF, pulmonary hypertension, VIVEK, hypothyroidism and obesity hypoventilation who presented to the emergency department via EMS with complaints of 3 days of worsening dyspnea unrelieved by home IV/nebulizer treatments. Patient was placed on BiPAP which she is currently tolerating well. Her labs are significant for hgb 11.2, platelet 143, CO2 39, BNP 1826. She received a breathing treatment and solumedrol in the emergency department. ED provider wishes to admit her for evaluation and management of acute on chronic hypercapnic respiratory failure/COPD exacerbation. Allergies No Known Allergies Allergy (Verified 10/19/22 22:27) Home medications list reviewed: Yes Home Medications: Apixaban [Eliquis] 5 mg PO BID 10/19/22 Atorvastatin Calcium 20 mg PO BEDTIME 10/19/22 Gabapentin 100 mg PO BID 10/19/22 Levothyroxine [Synthroid] 88 mcg PO [id number] 10/19/22 Roflumilast [Daliresp] 500 mcg PO DAILY 10/19/22 Ropinirole HCl 1 tab PO BEDTIME 10/19/22 acetaZOLAMIDE [Acetazolamide] 250 mg PO DAILY 10/19/22 clonazePAM [Clonazepam] 0.5 mg PO DAILY PRN 10/19/22 - Past Medical/Surgical History Diabetic: No -: Severe COPD, home oxygen/NIV,Pulmonary-Dr. Do -: Mild pulmonary hypertension -: Hypothyroidism -: Bipolar disorder -: Hypertension -: Chronic low back pain -: Obstructive sleep apnea -: GERD -: HLD -: GERD -: Appendectomy -: Psychosocial/ Personal History: She lives with a partner. She has 1 child. She is currently disabled. - Family History Father -: Heart disease, Hypertension, Diabetes Mother -: Heart disease, Hypertension, Diabetes Brother -: Diabetes Sister -: Heart disease, Diabetes - Social History Smoking Status: Former smoker Alcohol use: No CD- Drugs: No Caffeine use: Yes Review of Systems Respiratory: Shortness of Breath Physical Examination - Vital Signs Temperature: 98.9 F Blood Pressure: 139/70 Pulse: 82 Respirations: 22 Pulse Ox (%): 89 - Physical Exam General: Alert, In no apparent distress, Obese HEENT: Atraumatic, PERRLA, EOMI, Sclerae nonicteric Neck: Supple, 2+ carotid pulse no bruit, No LAD, Without JVD or thyroid abnormality Respiratory: Expiratory wheezes Cardiovascular: Regular rate/rhythm, Normal S1 S2 Gastrointestinal: Normal bowel sounds, No tenderness Musculoskeletal: No tenderness Integumentary: No rashes Neurological: Normal speech, Normal strength at 5/5 x4 extr, Normal tone, Normal affect - Studies Laboratory Data (last 24 hrs) 10/19/22 20:03: WBC 6.20, Hgb 11.2 L, Hct 36.0, Plt Count 143 L 10/19/22 20:03: Sodium 140, Potassium 4.4, BUN 10, Creatinine 0.76, Glucose 110 H Assessment and Plan - Problems (Diagnosis) (1) Acute on chronic respiratory failure with hypoxia and hypercapnia Current Visit: Yes Status: Acute (2) COPD exacerbation Current Visit: Yes Status: Acute (3) Obesity hypoventilation syndrome Current Visit: Yes Status: Chronic (4) CHF (congestive heart failure) Current Visit: Yes Status: Chronic Qualifiers: Heart failure type: diastolic Heart failure chronicity: acute on chronic Qualified Code(s): I50.33 - Acute on chronic diastolic (congestive) heart failure (5) Hypertension Current Visit: Yes Status: Chronic Qualifiers: Hypertension type: primary hypertension Qualified Code(s): I10 - Essential (primary) hypertension (6) Hypothyroidism Current Visit: Yes Status: Chronic Qualifiers: Hypothyroidism type: acquired Qualified Code(s): E03.9 - Hypothyroidism, unspecified (7) Obesity Current Visit: Yes Status: Chronic Qualifiers: Obesity type: due to excess calories Obesity classification: adult class 3 (BMI >= 40) Serious obesity comorbidity presence: with serious comorbidity Body mass index: BMI 40.0-44.9 Qualified Code(s): E66.01 - Morbid (severe) obesity due to excess calories; Z68.41 - Body mass index [BMI] 40.0-44.9, adult; Z68.41 - Body mass index [BMI] 40.0-44.9, adult - Plan Patient is admitted for acute on chronic hypoxic/hypercapnic respiratory failure secondary to COPD with exacerbation. Continue BiPAP, IV steroids, nebulizer treatments, ICS, home medications. Wean to NC when tolerated. Pulmonology consult in place. Patient reports she has been compliant with her medications as well as home NIV. Monitor and replete electrolytes per protocol. Reconcile and continue home medications. Eliquis for VTE prophyalxis. Full code. Discharge Plan: Home Plan to discharge in: Greater than 2 days - Advance Directives Does patient have a Living Will: No Does patient have a Durable POA for Healthcare: No - Code Status/Comfort Care Code Status Assessed: Yes Code Status: Full Code Physician Review: Patient Assessed, Agree with Above Assessment and Plan Critical Care: No Time Spent Managing Pts Care (In Minutes): 50
[2022-10-19 23:14] VITALS: BMI 42.8
[2022-10-19] MEDS ORDERED: MELATONIN 5 MG TABLET PO PRN (23:53)
[2022-10-20] MEDS: METHYLPREDNISOLONE 40 MG INJ IV SCH ×2 (00:09→09:16)
[2022-10-20] MEDS: ACETAMINOPHEN 500 MG TAB PO PRN (00:09)
[2022-10-20] MEDS: ALBUTEROL 2.5 MG/3 ML NEB SOL NEB PRN ×2 (03:20→21:20)
[2022-10-20 04:30] LABS: Absolute Lymphocytes (CBC) 0.4 K/uL (0.7-4.9); Hematocrit 34.4 % (36.0-45.0); Lymphocytes % 6.7 % (15.3-44.8); MCV 87.4 fL (80-100); RBC Red Blood Cell Count 3.94 M/uL (3.86-4.86)
[2022-10-20 04:45] LABS: Magnesium 2.6 mg/dL (1.6-2.4); Phosphorus 3.1 mg/dL (2.5-4.9); Potassium 4.9 mmol/L (3.5-5.1)
[2022-10-20] MEDS: LEVOTHYROXINE SOD 0.088 MG TAB PO SCH (06:11)
[2022-10-20] MEDS ORDERED: ENOXAPARIN 40 MG/0.4 ML SQ SCH (09:00)
[2022-10-20] MEDS: ROFLUMILAST 500 MCG TABLET PO SCH (09:16)
[2022-10-20] MEDS: GABAPENTIN 100 MG CAP PO SCH ×2 (09:16→20:43)
[2022-10-20] MEDS: acetaZOLAMIDE 250 MG TAB PO SCH (09:16)
[2022-10-20] MEDS: APIXABAN 5 MG TABLET PO SCH ×2 (09:16→20:43)
[2022-10-20] MEDS: clonazePAM 0.5 MG TAB PO PRN (10:22)
--- NOTE | 2022-10-20 11:25 | P.PN ---
Subjective Date of Service: 10/20/22 Chief Complaint: COPD Exacerbation Patient seen on BIPAP, awake, denies SOB. Physical Examination - Vital Signs Temperature: 97.1 F Blood Pressure: 138/78 Pulse: 62 Respirations: 17 Pulse Ox (%): 97 - Studies Laboratory Data (last 24 hrs) 10/19/22 20:03: WBC 6.20, Hgb 11.2 L, Hct 36.0, Plt Count 143 L 10/19/22 20:03: Sodium 140, Potassium 4.4, BUN 10, Creatinine 0.76, Glucose 110 H Assessment And Plan - Current Problems (Diagnosis) (1) Acute on chronic respiratory failure with hypoxia and hypercapnia Current Visit: Yes Status: Acute (2) COPD exacerbation Current Visit: Yes Status: Acute (3) Obesity hypoventilation syndrome Current Visit: Yes Status: Chronic (4) Atrial fibrillation Current Visit: No Status: Acute Qualifiers: Atrial fibrillation type: paroxysmal Qualified Code(s): I48.0 - Paroxysmal atrial fibrillation (5) Obstructive sleep apnea Current Visit: No Status: Chronic (6) Morbid obesity Current Visit: Yes Status: Acute - Plan Physical Exam General: Alert, Obese HEENT: Atraumatic, PERRLA, EOMI, Sclerae nonicteric Neck: Supple, no elevated JVD. Respiratory: Diminished breath sounds. Cardiovascular: Regular rate/rhythm, Normal S1 S2 Gastrointestinal: Normal bowel sounds, No tenderness Musculoskeletal: No tenderness Integumentary: No rashes Neurological: Normal speech, Normal strength at 5/5 x4 extr. Plan: Wean off BiPAP to oxygen by nasal cannula during the day. Use BiPAP during sleep and at night. Continue bronchodilators, steroid. Continue Roflumilast. No indication for antibiotics. Continue acetazolamide for metabolic acidosis. Monitor renal function. Activity as tolerated.
--- NOTE | 2022-10-20 11:37 | P.CNS ---
Date of Consult: 10/20/22 Reason for Consult: COPD exacerbation Chief Complaint: COPD Exacerbation History of Present Illness: Patient is 62 years of age with terminal COPD compliant with her medication and oxygen at home not have a noninvasive ventilator came into the emergency room w ith worsening shortness of breath doing much better on the BiPAP apparently her noninvasive ventilator was taken away from her eyes any fever or chills otherwise compliant with her therapy Allergies No Known Allergies Allergy (Verified 10/19/22 22:27) Home Medications: Apixaban [Eliquis] 5 mg PO BID 10/19/22 Atorvastatin Calcium 20 mg PO BEDTIME 10/19/22 Gabapentin 100 mg PO BID 10/19/22 Levothyroxine [Synthroid] 88 mcg PO [id number] 10/19/22 Roflumilast [Daliresp] 500 mcg PO DAILY 10/19/22 Ropinirole HCl 1 tab PO BEDTIME 10/19/22 acetaZOLAMIDE [Acetazolamide] 250 mg PO DAILY 10/19/22 clonazePAM [Clonazepam] 0.5 mg PO DAILY PRN 10/19/22 - Past Medical/Surgical History Diabetic: No -: Severe COPD, home oxygen/NIV,Pulmonary-Dr. Do -: Mild pulmonary hypertension -: Hypothyroidism -: Bipolar disorder -: Hypertension -: Chronic low back pain -: Obstructive sleep apnea -: GERD -: HLD -: GERD -: Appendectomy -: Psychosocial/ Personal History: She lives with a partner. She has 1 child. She is currently disabled. - Family History Father Medical History: Heart disease, Hypertension, Diabetes Mother Medical History: Heart disease, Hypertension, Diabetes Brother Medical History: Diabetes Sister Medical History: Heart disease, Diabetes - Social History Smoking Status: Unknown if ever smoked Alcohol use: No CD- Drugs: No Caffeine use: Yes Place of Residence: Home Review of Systems General: Weakness Respiratory: Shortness of Breath Cardiovascular: Edema Physical Examination Temp Pulse Resp BP Pulse Ox 97.1 F 62 17 138/78 97 10/20/22 11:26 10/20/22 11:26 10/20/22 11:26 10/20/22 11:26 10/20/22 11:26 General: Alert, In no apparent distress, Oriented x3, Mild distress Respiratory: Clear to auscultation bilaterally, Normal air movement Cardiovascular: Regular rate/rhythm, Normal S1 S2, Edema Gastrointestinal: Normal bowel sounds, Soft and benign Musculoskeletal: No clubbing Laboratory Data (last 24 hrs) 10/19/22 20:03: WBC 6.20, Hgb 11.2 L, Hct 36.0, Plt Count 143 L 10/19/22 20:03: Sodium 140, Potassium 4.4, BUN 10, Creatinine 0.76, Glucose 110 H - Problems (1) COPD exacerbation Current Visit: Yes Status: Acute Plan: Patient is 62 years of age admitted with COPD exacerbation recurrent admissions does not have a noninvasive ventilator at home we will check with [facility] patient tomorrow much better on a BiPAP Sherif's reviewed she probably has chronic CO2 retention bicarbonate is elevated would add some Diamox titrate sat down to 90% check arterial blood gases chest x-ray shows some interstitial changes BNP is elevated may have an element of diastolic heart failure 2D echo with Doppler add spironolactone changed to p.o. prednisone
[2022-10-20] MEDS: SPIRONOLACTONE 25 MG TABLET PO SCH ×2 (12:26→20:45)
[2022-10-20] MEDS: IPRATROPIUM BROM 0.5MG/2.5ML NEB SCH ×2 (14:36→21:20)
[2022-10-20 14:49] LABS: Arterial Blood Carboxyhemoglob 1.5 % (0-1.5); Blood Gas Oxyhemoglobin 72.9 % (94-97)
[2022-10-20] MEDS: ROPINIROLE HCL 1 MG TAB PO SCH (20:43)
[2022-10-20] MEDS: predniSONE 20 MG TAB PO SCH (20:43)
[2022-10-20] MEDS: ATORVASTATIN 20 MG TAB PO SCH (20:43)
[2022-10-21] MEDS: ALBUTEROL 2.5 MG/3 ML NEB SOL NEB PRN ×2 (02:00→15:31)
[2022-10-21] MEDS: IPRATROPIUM BROM 0.5MG/2.5ML NEB SCH ×4 (02:00→19:25)
[2022-10-21 04:04] LABS: Absolute Lymphocytes (CBC) 0.7 K/uL (0.7-4.9); MCV 86.3 fL (80-100); MPV 7.9 fL (7.6-11.3)
[2022-10-21 05:02] LABS: Potassium 4.8 mmol/L (3.5-5.1)
[2022-10-21] MEDS: LEVOTHYROXINE SOD 0.088 MG TAB PO SCH (06:15)
[2022-10-21] MEDS: acetaZOLAMIDE 250 MG TAB PO SCH (08:26)
[2022-10-21] MEDS: ROFLUMILAST 500 MCG TABLET PO SCH (08:26)
[2022-10-21] MEDS: APIXABAN 5 MG TABLET PO SCH ×2 (08:27→20:32)
[2022-10-21] MEDS: predniSONE 20 MG TAB PO SCH (08:27)
[2022-10-21] MEDS: SPIRONOLACTONE 25 MG TABLET PO SCH ×2 (08:27→20:32)
[2022-10-21] MEDS: GABAPENTIN 100 MG CAP PO SCH ×2 (08:27→20:32)
--- NOTE | 2022-10-21 11:57 | P.PN ---
Subjective Date of Service: 10/21/22 Chief Complaint: COPD Exacerbation Subjective: Improving (Patient is doing better no new complaints still compliant with BiPAP) Review of Systems Unremarkable Respiratory: Shortness of Breath Physical Examination - Vital Signs Temperature: 97.5 F Blood Pressure: 126/87 Pulse: 60 Respirations: 18 Pulse Ox (%): 96 - Physical Exam General: Alert, Oriented x3 Respiratory: Clear to auscultation bilaterally, Diminished Cardiovascular: No edema, Normal pulses Assessment And Plan - Current Problems (Diagnosis) (1) COPD exacerbation Current Visit: Yes Status: Acute Plan: Patient admitted with COPD exacerbation hypoxic hypercapnic respiratory failure discussed with [facility] patient noncompliant with noninvasive ventilator we will plan to do an overnight pulse oximetry recorded off BiPAP on O2 document desaturation for more than 5 minutes for patient to qualify for another BiPAP reduce dose of prednisone discharge when patient has another BiPAP Physician Review: Patient Assessed, Agree with Above Assessment and Plan
[2022-10-21] MEDS: clonazePAM 0.5 MG TAB PO PRN (14:16)
--- NOTE | 2022-10-21 14:58 | P.PN ---
Subjective Date of Service: 10/21/22 Chief Complaint: COPD Exacerbation Patient seen short of breath on oxygen by nasal cannula. She has just ambulated to and from bathroom. She stated his home NIV was taking away. Physical Examination - Vital Signs Temperature: 97.8 F Blood Pressure: 130/63 Pulse: 57 Respirations: 18 Pulse Ox (%): 97 Assessment And Plan - Current Problems (Diagnosis) (1) Acute on chronic respiratory failure with hypoxia and hypercapnia Current Visit: Yes Status: Acute (2) COPD exacerbation Current Visit: Yes Status: Acute (3) Obesity hypoventilation syndrome Current Visit: Yes Status: Chronic (4) Atrial fibrillation Current Visit: No Status: Acute Qualifiers: Atrial fibrillation type: paroxysmal Qualified Code(s): I48.0 - Paroxysmal atrial fibrillation (5) Obstructive sleep apnea Current Visit: No Status: Chronic (6) Morbid obesity Current Visit: Yes Status: Acute - Plan Physical Exam General: Alert, Obese. Neck: Supple, no elevated JVD. Respiratory: Diminished breath sounds. Cardiovascular: Regular rate/rhythm, Normal S1 S2 Gastrointestinal: Normal bowel sounds, No tenderness Musculoskeletal: No tenderness Integumentary: No rashes Neurological: Normal speech, Normal strength at 5/5 x4 extr. Plan: Wean off BiPAP to oxygen by nasal cannula during the day. Use BiPAP during sleep and at night. Continue bronchodilators, steroid. Continue Roflumilast. No indication for antibiotics. Continue acetazolamide for metabolic acidosis. Monitor renal function. Activity as tolerated. Continue Eliquis for A. fib. Social service assisting with arrangement for a new NIV.
[2022-10-21] MEDS ORDERED: ALBUTEROL 2.5 MG/3 ML NEB SOL NEB PRN (18:00)
--- NOTE | 2022-10-21 20:27 | P.PN ---
Date of Service: 10/22/22 Subjective: no acute events overnight. feels ok, bipap used overnight nasal cannula as tolerated. no new/worsening symptoms ROS: A complete review of systems was performed and is negative except as mentioned above Physical Exam: Gen: AOx3 HEENT: normal conjunctiva, sclera anicteric CV: regular rate & rhythm, no edema Pulm: mild labored respirations, on nasal cannula Abd: soft, non-tender, non-distended Neuro: normal speech, normal affect, moves all extremities vitals reviewed Problem List acute on chronic hypoxemic and hypercapnic respiratory failure acute on chronic copd exacerbation on home O2 / NIV obesity hypoventilation syndrome afib, paroxysmal VIVEK morbid obesity bipap at night, nasal cannula during the day. Continue bronchodilators, steroid. Continue Roflumilast. Pulm consulted. No indication for antibiotics. Continue acetazolamide for metabolic acidosis. Monitor renal function. Activity as tolerated. Continue Eliquis for A. fib. seems to be stable / at baseline VTE: home eliquis, 5mg BID Code: full Dispo: home, once NIV set up Social service assisting with arrangement for a new NIV. Patient states her NIV was taken away
[2022-10-21] MEDS: ATORVASTATIN 20 MG TAB PO SCH (20:32)
[2022-10-21] MEDS: predniSONE 10 MG TAB PO SCH (20:32)
[2022-10-21] MEDS: ROPINIROLE HCL 1 MG TAB PO SCH (20:32)
[2022-10-22] MEDS: IPRATROPIUM BROM 0.5MG/2.5ML NEB SCH ×4 (01:40→20:00)
[2022-10-22 04:01] LABS: Absolute Lymphocytes (CBC) 0.8 K/uL (0.7-4.9); Hematocrit 33.2 % (36.0-45.0); Lymphocytes % 16.3 % (15.3-44.8); MCV 85.5 fL (80-100); MPV 7.8 fL (7.6-11.3); RBC Red Blood Cell Count 3.88 M/uL (3.86-4.86)
[2022-10-22 04:15] LABS: Potassium 4.5 mmol/L (3.5-5.1)
[2022-10-22] MEDS: LEVOTHYROXINE SOD 0.088 MG TAB PO SCH (05:47)
--- NOTE | 2022-10-22 08:22 | ECHO ---
HEIGHT: 5 ft 9 in WEIGHT: 290 lb 3.2 oz DATE OF STUDY: 10/21/[address]: Isai Do MD 2-DIMENSIONAL: YES M.MODE: YES DOPPLER: YES COLOR FLOW: YES TDS: YES PORTABLE: YES DEFINITY: BUBBLE STUDY: DIAGNOSIS: CONGESTIVE HEART FAILURE CARDIAC HISTORY: CATHERIZATION: NO SURGERY: NO PROSTHETIC VALVE: NO PACEMAKER: NO MEASUREMENTS (cm) DIASTOLIC (NORMALS) SYSTOLIC (NORMALS) IVSd 1.1 (0.6-1.2) LA Diam 2.9 (1.9-4.0) LVEF 51% LVIDd 5.4 (3.5-5.7) LVIDs 4.0 (2.0-3.5) %FS 26% LVPWd 1.1 (0.6-1.2) Ao Diam 2.5 (2.0-3.7) 2 DIMENSIONAL ASSESSMENT: RIGHT ATRIUM: NORMAL LEFT ATRIUM: NORMAL RIGHT VENTRICLE: NORMAL LEFT VENTRICLE: NOT WELL SEEN TRICUSPID VALVE: TRACE TRICUSPID REGURGITATION MITRAL VALVE: NORMAL PULMONIC VALVE: NORMAL AORTIC VALVE: NORMAL PERICARDIAL EFFUSION: NONE AORTIC ROOT: NORMAL LEFT VENTRICULAR WALL MOTION: UNABLE TO EVALUATE DUE TO POOR WINDOWS DOPPLER/COLOR FLOW: SEE BELOW COMMENTS: 1. POOR WINDOWS 2. LEFT VENTRICULAR EJECTION FRACTION OVERALL APPEARS LOW NORMAL, RECOMMEND CONTRAST ECHOCARDIOGRAM 3. TRACE TRICUSPID REGURGITATION TECHNOLOGIST: ESTHER GAITAN
[2022-10-22] MEDS: acetaZOLAMIDE 250 MG TAB PO SCH (10:19)
[2022-10-22] MEDS: SPIRONOLACTONE 25 MG TABLET PO SCH ×2 (10:19→20:25)
[2022-10-22] MEDS: predniSONE 10 MG TAB PO SCH ×2 (10:19→20:26)
[2022-10-22] MEDS: GABAPENTIN 100 MG CAP PO SCH ×2 (10:20→20:25)
[2022-10-22] MEDS: APIXABAN 5 MG TABLET PO SCH ×2 (10:20→20:25)
[2022-10-22] MEDS: ROFLUMILAST 500 MCG TABLET PO SCH (10:20)
--- NOTE | 2022-10-22 12:18 | P.PN ---
Subjective Date of Service: 10/22/22 Chief Complaint: COPD Exacerbation chronic respiratory failure Subjective: Improving (Improving no change tolerating BiPAP some chest congestion) Review of Systems Respiratory: Cough, Shortness of Breath Physical Examination - Vital Signs Temperature: 97.9 F Blood Pressure: 137/71 Pulse: 72 Respirations: 16 Pulse Ox (%): 92 - Physical Exam General: Alert, Oriented x3 Respiratory: Diminished, Expiratory wheezes Cardiovascular: No edema, Normal pulses Assessment And Plan - Current Problems (Diagnosis) (1) Chronic respiratory failure Current Visit: Yes Status: Acute Plan: Patient has chronic respiratory failure combination of obesity hypoventilation syndrome sleep apnea and a severe terminal COPD recurrent exacerbations waiting BiPAP patient did experience frequent desaturation and will qualify for a BiPAP noninvasive ventilator was returned vital signs oxygenation stable discharge treatment BiPAP set up Qualifiers: Respiratory failure complication: hypoxia and hypercapnia Qualified Code(s): J96.11 - Chronic respiratory failure with hypoxia; J96.12 - Chronic respiratory failure with hypercapnia; J96.12 - Chronic respiratory failure with hypercapnia Physician Review: Patient Assessed, Agree with Above Assessment and Plan
[2022-10-22] MEDS: clonazePAM 0.5 MG TAB PO PRN (13:47)
--- NOTE | 2022-10-22 17:05 | EKG ---
Test Date: 2022-10-19 Test Time: 19:50:15 [place] Instructor: JESSICA MEASUREMENT RESULTS: Intervals: Rate: 80 NJ: 170 QRSD: 96 QT: 384 QTc: 442 [place]: P: 68 NJ: 170 QRS: 93 T: 93 INTERPRETIVE STATEMENTS: Sinus rhythm with premature atrial complexes Rightward axis Borderline ECG Compared to ECG 09/11/2022 23:30:33 Right-axis deviation now present Fusion complex(es) no longer present Ventricular premature complex(es) no longer present Electronically Signed On 10-22-22 16:58:30 PAINT STOCK CLERK by Maykel Posey
[2022-10-22] MEDS: ACETAMINOPHEN 500 MG TAB PO PRN (18:04)
[2022-10-22] MEDS: ROPINIROLE HCL 1 MG TAB PO SCH (20:25)
[2022-10-22] MEDS: ATORVASTATIN 20 MG TAB PO SCH (20:25)
[2022-10-23] MEDS: ACETAMINOPHEN 500 MG TAB PO PRN (00:39)
[2022-10-23] MEDS: IPRATROPIUM BROM 0.5MG/2.5ML NEB SCH ×3 (02:10→14:27)
[2022-10-23 04:02] LABS: Potassium 4.6 mmol/L (3.5-5.1)
[2022-10-23] MEDS: LEVOTHYROXINE SOD 0.088 MG TAB PO SCH (06:09)
[2022-10-23] MEDS: SPIRONOLACTONE 25 MG TABLET PO SCH (08:12)
[2022-10-23] MEDS: ROFLUMILAST 500 MCG TABLET PO SCH (08:15)
[2022-10-23] MEDS: predniSONE 10 MG TAB PO SCH (08:15)
[2022-10-23] MEDS: acetaZOLAMIDE 250 MG TAB PO SCH (08:16)
[2022-10-23] MEDS: APIXABAN 5 MG TABLET PO SCH (08:16)
[2022-10-23] MEDS: GABAPENTIN 100 MG CAP PO SCH (08:16)
[2022-10-23 10:07] VITALS: O2SAT 93
[2022-10-23 12:21] VITALS: BP 101/45; TEMP 97.2
--- NOTE | 2022-10-23 12:45 | P.PN ---
Subjective Date of Service: 10/23/22 Chief Complaint: COPD Exacerbation chronic respiratory failure Subjective: Improving (Patient is doing well without any new BiPAP and is compliant) Review of Systems General: Weakness Respiratory: Shortness of Breath Physical Examination - Vital Signs Temperature: 97.2 F Blood Pressure: 101/45 Pulse: 62 Respirations: 16 Pulse Ox (%): 90 - Physical Exam General: Alert, Oriented x3, Mild distress Respiratory: Diminished Assessment And Plan - Current Problems (Diagnosis) (1) Chronic respiratory failure Current Visit: Yes Status: Acute Plan: Chronic respiratory failure doing better regarding new BiPAP patient is okay with the mask and the pressure Labs and chemistries reviewed plan for discharge resume all home medication patient to resume her regular dose of prednisone advised her to use the BiPAP as much as she can Qualifiers: Respiratory failure complication: hypoxia and hypercapnia Qualified Code(s): J96.11 - Chronic respiratory failure with hypoxia; J96.12 - Chronic respiratory failure with hypercapnia; J96.12 - Chronic respiratory failure with hypercapnia Physician Review: Patient Assessed, Agree with Above Assessment and Plan
--- NOTE | 2022-10-23 21:29 | P.DS ---
Admission Date: 10/19/22 Discharge Date: 10/23/22 Disposition: DC HOME/HOME HEALTH CARE Discharge Condition: FAIR Reason for Admission: COPD Exacerbation chronic respiratory failure Consultations: Radha Do Brief History of Present Illness: 62-year-old female with history of severe COPD on chronic home oxygen3 L with home NIV, CHF, pulmonary hypertension, VIVEK, hypothyroidism and obesity hypoventilation who presented to the emergency department via EMS with complaints of 3 days of worsening dyspnea unrelieved by home IV/nebulizer treatments. Patient was placed on BiPAP which she is currently tolerating well. Her labs are significant for hgb 11.2, platelet 143, CO2 39, BNP 1826. She received a breathing treatment and solumedrol in the emergency department. Admitted for evaluation and management of acute on chronic hypercapnic respiratory failure/COPD exacerbation. Hospital Course: Problem List acute on chronic hypoxemic and hypercapnic respiratory failure acute on chronic copd exacerbation on home O2 / NIV obesity hypoventilation syndrome afib, paroxysmal VIVEK morbid obesity Presented with shrotness of breath, found to be in acute respiratory failure with hypercapnia, after no longer having her BIPAP at home. Pulmonology was consulted. She had improvement of her symptoms and return to baseline with continuation of home medications and BIPAP. vocational services specialist was consulted and patient was set up with a new BIPAP machine and deemed stable for discharge home. Resume home medications as previously prescribed. Continue BIPAP as often as possible. Follow up with PCP and Dr. Do Vital Signs/Physical Exam: Temp Pulse Resp BP Pulse Ox 97.2 F 62 16 101/45 L 90 L 10/23/22 12:45 10/23/22 12:45 10/23/22 12:45 10/23/22 12:45 10/23/22 12:45 General: Alert, In no apparent distress, Oriented x3 HEENT: Other, Sclerae nonicteric Respiratory: Diminished, Expiratory wheezes, Other (nonlabored on nasal cannula) Cardiovascular: No edema, Regular rate/rhythm Gastrointestinal: Soft and benign, Non-distended, No tenderness Musculoskeletal: No contractures, No tenderness Integumentary: No rashes, No significant lesion Neurological: Normal speech, Normal affect Laboratory Data at Discharge: WBC 5.10 K/uL (4.3-10.9) 10/22/22 03:14 Hgb 10.6 g/dL (12.0-15.0) L 10/22/22 03:14 Hct 33.2 % (36.0-45.0) L 10/22/22 03:14 Plt Count 178 K/uL (152-406) 10/22/22 03:14 Sodium 141 mmol/L (136-145) 10/23/22 03:04 Potassium 4.6 mmol/L (3.5-5.1) 10/23/22 03:04 BUN 19 mg/dL (7-18) H 10/23/22 03:04 Creatinine 0.85 mg/dL (0.55-1.02) 10/23/22 03:04 Glucose 148 mg/dL (74-106) H 10/23/22 03:04 Phosphorus 3.1 mg/dL (2.5-4.9) 10/20/22 04:05 Magnesium 2.6 mg/dL (1.6-2.4) H 10/20/22 04:05 Home Medications: Apixaban [Eliquis] 5 mg PO BID 10/19/22 Atorvastatin Calcium 20 mg PO BEDTIME 10/19/22 Gabapentin 100 mg PO BID 10/19/22 Levothyroxine [Synthroid*] 88 mcg PO [id number] 10/19/22 Roflumilast [Daliresp] 500 mcg PO DAILY 10/19/22 Ropinirole HCl 1 tab PO BEDTIME 10/19/22 acetaZOLAMIDE [Acetazolamide] 250 mg PO DAILY 10/19/22 clonazePAM [Clonazepam] 0.5 mg PO DAILY PRN 10/19/22 Physician Discharge Instructions: Presented with shrotness of breath, found to be in acute respiratory failure with hypercapnia, after no longer having her BIPAP at home. Pulmonology was consulted. She had improvement of her symptoms and return to baseline with continuation of home medications and BIPAP. vocational services specialist was consulted and patient was set up with a new BIPAP machine and deemed stable for discharge home. Resume home medications as previously prescribed. Continue BIPAP as often as possible. Follow up with PCP and Dr. Do Followup: NONE,NONE [Primary Care Provider] - 1 Week (Follow up with Dr. Do in one week.) Time spent managing pt's care (in minutes): 45
== END 2022-10-23 16:02 | disposition home health service (06) | DRG 189 ==
LOC: ER 19:25 → ERHOLD 21:06 → 4TH 21:27
PROVIDERS: ADMIT Internal Medicine; ATTEND Hospitalist
PROC: 5A09457 Assistance with Respiratory Ventilation, 24-96 Consecutive Hours, Continuous Positive Airway Pressure (ICD-10-PCS; principal; 2022-10-19)
DX: J96.22 Acute and chronic respiratory failure with hypercapnia (principal); I50.33 Acute on chronic diastolic (congestive) heart failure; J44.1 Chronic obstructive pulmonary disease with (acute) exacerbation; Z68.42 Body mass index [BMI] 45.0-49.9, adult; E66.2 Morbid (severe) obesity with alveolar hypoventilation; E87.20 Acidosis, unspecified; J96.21 Acute and chronic respiratory failure with hypoxia; I11.0 Hypertensive heart disease with heart failure; K21.9 Gastro-esophageal reflux disease without esophagitis; I48.0 Paroxysmal atrial fibrillation; E03.9 Hypothyroidism, unspecified; G89.29 Other chronic pain; M54.50 Low back pain, unspecified; Z99.81 Dependence on supplemental oxygen; Z79.01 Long term (current) use of anticoagulants; Z90.49 Acquired absence of other specified parts of digestive tract; Z79.890 Hormone replacement therapy; Z87.891 Personal history of nicotine dependence; Z79.899 Other long term (current) drug therapy; Z20.822 Contact with and (suspected) exposure to COVID-19
CPT/HCPCS: 36415; 71045; 80048; 82805; 82947; 83735; 83880; 84100; 84484; 85025; 87811; 93005; 93306; 94640; 94660; 94760; 96374; 99285; J2920; J2930; J7512; J7613; J7644

== ENCOUNTER 2022-12-11 12:02 | Inpatient (IN) | payer OTHER ==
[2022-12-11 12:15] LABS: Arterial Blood Carboxyhemoglob 1.6 % (0-1.5); Blood O2 Saturation 88.5 % (92-98.5)
[2022-12-11] MEDS ORDERED: ALBUTEROL 2.5 MG/3 ML NEB SOL ONE ×2 (12:18→20:11)
[2022-12-11] MEDS ORDERED: IPRATROPIUM BROM 0.5MG/2.5ML ONE ×2 (12:19→20:11)
--- OUTSIDE RECORDS SUMMARY | 2022-12-11 12:23 | XMS REPORT | Continuity of Care Document ---
:1960 Author Organization [facility] t Address [address] [place] [address] Care Team Providers Name Role Phone JOSE MCGUIRE Primary Care Physician Unavailable Billy Howard Attending Clinician Unavailable MRATIN LEBLANC Attending Clinician Unavailable KRISTEN PATRICK Attending Clinician Unavailable KRISTEN PATRICK Attending Clinician Unavailable Martin Leblanc MD Attending Clinician Doctor Unassigned, [place] Attending Clinician Unavailable JETHRO ZHAO Attending Clinician Unavailable Negra Gregory Attending Clinician [phone] NEGRA DUNAWAY Attending Clinician Unavailable Lanny DIETRICH, Sheryl Attending Clinician Jethro Dodge MD Attending Clinician [phone] JETHRO DODGE Attending Clinician Unavailable Alex DIETRICH, Christa Lincoln Attending Clinician CHRISTA KING Attending Clinician Unavailable JESSE ARREDONDO Attending Clinician Unavailable Ronaldo DIETRICH, [place] Oates Attending Clinician David CARDONA, Viviana Person Attending Clinician Jeronimo Hogue MD Attending Clinician Christian DIETRICH, Julian Rose Attending Clinician Sammie Tarango MD Attending Clinician Jordin DIETRICH, [place] Attending Clinician Chu Marin MD Attending Clinician [phone] CHU MARIN Attending Clinician Unavailable Lizbeht Verdugo RN Attending Clinician Gita DIETRICH, Annette [...] Number Effective Date Expiration Date S harshad FORMERLY [facility] [id number] 2012 PLUS 00:00:00 [place] [address] [id number] 2019 Common [facility] 00:00:00 [facility] Problems Condition Condition Condition Status Onset Resolution Last Treating Co mments Source Name Details Category Date Date Treatment Clinician Date Acute on Acute on Disease Active Unive rs chronic chronic 2-17 [place]y of [place] congest[place] congest[place] dical heart heart Branch failure failure Respirator Respirator Disease Active U nivers y failure y failure 2-16 ity of 00:00: [address] Obesity Obesity Disease Active Univers (BMI (BMI 9-11 ity of 30-39.9) 30-39.9) 00:00: [address] Tobacco Tobacco Disease [facility] [address] Hypoxemia Hypoxemia Disease [facility]: [address] COPD COPD Disease Recurre [facility] exacerbati exacerbati nce 6-05 Pema kes on on 00:00: [address] Acute Acute Disease Recurre [facility] hypercapni hypercapni nce 6-05 Pema kes c c 00:00: Medical respirator respirator 00 Ce nter y failure y failure Wears Wears Disease Active Univers partial partial ity of dentures dentures [facility] [id number] Severe Problem Common chronic Spirit obstructiv - [facility] e [facility] Hypertensi Hypertensi Problem C ommon on on [facility] Hypothyroi Hypothyroi Problem C ommon dism dism [facility] Counseling Tobacco Problem Comm on about abuse Spirit tobacco counseling - [facility] use [facility] Hyperlipid Hyperlipid Problem C ommon emia emia, [facility] Chronic Chronic Problem Common pain pain Spirit syndrome syndrome [facility] Bipolar Bipolar Problem Common disorder disorder [facility] [id number] Nasal Problem Common bleeding [facility] Essential Essential Problem Com mon hypertensi hypertensi Sp kiley on on - CHI [facility] [id number] History of Problem Co mmon congestive Spirit heart - CHI failure [facility] Pulmonary Pulmonary Problem Com mon hypertensi hypertensi Sp kiley on on, [facility] Chronic Problem Common obstructiv obstructiv Sp kiley e e - [facility] pulmonary pulmonary St disease [facility] unspecifie Medica l d COPD Center type [id number] Morbid Problem Common obesity Spirit - CHI [facility] [id number] On Problem Common supplement Spirit al oxygen - CHI by nasal [facility] [id number] Body mass Problem Com mon index Spirit (BMI) - CHI 40.0-44.9, [facility] [id number] CPAP Problem Common (continuou Spirit s positive - CHI airway St pressure) [facility] dependence [facility] [id number] Nasal Problem Common congestion [facility] Vaginal Vaginal Problem Common bleeding bleeding [facility] Congestive Congestive Problem C ommon heart heart Spirit disease failure, - [facility] unspecifie [facility] d 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 [facility] [id number] SARS Problem Common pneumonia [facility] [id number] Other Problem Common chronic Spirit pain - [facility] Allergies, Adverse Reactions, Alerts Allergy [...] codeine Active Unknown Common Spirit - CH[facility] Social History Social Habit Start Date Stop Date Quantity Comments Source History SDOH University o f Alcohol Frequency [place] M edical Branch History SDOH University o f Alcohol Std [place] Medical Drinks Branch History SDCO University o f Alcohol Binge [place] Medic al Branch History of Common Spirit - Tobacco Use [facility] Exposure to 2022-11-16 2022-11-26 Not sure [place] of SARS-CoV-2 00:00:00 14:49:00 [facility] (event) [place] Alcohol intake 2022-08-13 2022-08-13 0 /d University of 00:00:00 00:00:00 [facility] Tobacco use and 2022-06-07 2022-06-07 Smokeless tobacco Un iversity of exposure 00:00:00 00:00:00 non-user [facility] Tobacco Comment 2022-06-07 2022-06-07 1-1.5 packs a day, U niversity of 00:00:00 00:00:00 quit 2018 [facility] Alcohol Comment 2020-11-12 2020-11-12 occasionally Univers ity of 00:00:00 00:00:00 [facility] Sex Assigned At [address] [facility]ids[facility] 00:00:00 00:00:00 [facility] Smoking Status Start Date Stop Date Source Ex-smoker 2022-06-07 00:00:00 2022-06-07 00:00:00 [facility] Medications Ordered Filled Start Stop Current Ordering Indication Dosage Frequency Signature Comments Components Source Medication Medication Date Date Medication? Clinician (SIG) Name Name gabapentin Yes [id number] 300mg Take 1 Univers 300 mg 3-07 capsule by ity of capsule 00:00: mouth in [place] [address] the Medical morning Branch and 1 capsule at noon and 1 capsule in the evening. Diclofenac Yes [id number] Apply to Univers Sodium 3-07 area(s) ity of (VOLTAREN) 00:00: daily. [place] 1 % gel [facility] gabapentin Yes [id number] 300mg Take 1 Univers 300 mg 3-07 capsule by ity of capsule 00:00: mouth in [place] [address] the Medical morning Branch and 1 capsule at noon and 1 capsule in the evening. Diclofenac Yes [id number] Apply to Univers Sodium 3-07 area(s) ity of (VOLTAREN) 00:00: daily. [place] 1 % gel [facility] Cefdinir Cefdinir 2021-09- Cefdinir 300 MG 300 MG 11-12-31 300 MG 00:00: 00:00 00 :00 predniSONE predniSONE 2021-09 2022- No QD predniSONE 20 MG 20 MG 2-21 12-26 20 MG 00:00: 00:00 00 :00 Diclofenac 2021-09 Yes [id number] Apply to Univers Sodium 1-22 area(s) ity of (VOLTAREN) 00:00: daily. [place] 1 % gel [facility] gabapentin 2021-09 Yes [id number] 100mg Take 1 Univers 100 mg 1-22 capsule by ity of capsule 00:00: mouth in [address] Medical morning [place] and 1 capsule in the evening. Diclofenac 2021-09 Yes [id number] Apply to Univers Sodium 1-22 area(s) ity of (VOLTAREN) 00:00: daily. [place] 1 % gel [facility] gabapentin 2021-09 Yes [id number] 100mg Take 1 Univers 100 mg 1-22 capsule by ity of capsule 00:00: mouth in [address] morning [place] and 1 capsule in the evening. Diclofenac 2021-09 Yes [id number] Apply to Univers Sodium 1-22 area(s) ity of (VOLTAREN) 00:00: daily. [place] 1 % gel [facility] gabapentin 2021-09 Yes [id number] 100mg Take 1 Univers 100 mg 1-22 capsule by ity of capsule 00:00: mouth in [address] morning [place] and 1 capsule in the evening. Diclofenac 2021-09 Yes [id number] Apply to Univers Sodium 1-22 area(s) ity of (VOLTAREN) 00:00: daily. [place] 1 % gel [facility] gabapentin 2021-09 Yes [id number] 100mg Take 1 Univers 100 mg 1-22 capsule by ity of capsule 00:00: mouth in [address] morning [place] and 1 capsule in the evening. Diclofenac 2021-09 Yes [id number] Apply to Univers Sodium 1-22 area(s) ity of (VOLTAREN) 00:00: daily. [place] 1 % gel [facility] gabapentin 2021-09 Yes [id number] 100mg Take 1 Univers 100 mg 1-22 capsule by ity of capsule 00:00: mouth in [address] morning [place] and 1 capsule in the evening. Diclofenac 2021-09 Yes [id number] Apply to Univers Sodium 1-22 area(s) ity of (VOLTAREN) 00:00: daily. [place] 1 % gel 00 Medical Branch gabapentin 2021-09 Yes [id number] 100mg Take 1 Univers 100 mg 1-22 capsule by ity of capsule 00:00: mouth in [place] 00 the Medical morning Branch and 1 capsule in the evening. Diclofenac 2021-09 Yes [id number] Apply to Univers Sodium 1-22 area(s) ity of (VOLTAREN) 00:00: daily. [place] 1 % gel Medical Branch gabapentin 2021-09 Yes [id number] 100mg Take 1 Univers 100 mg 1-22 capsule by ity of capsule 00:00: mouth in [place] 00 the Medical morning Branch and 1 capsule in the evening. Diclofenac 2021-09 Yes [id number] Apply to Univers Sodium 1-22 area(s) ity of (VOLTAREN) 00:00: daily. [place] 1 % gel [facility] Branch gabapentin 2021-09 Yes [id number] 100mg Take 1 Univers 100 mg 1-22 capsule by ity of capsule 00:00: mouth in [place] [address] the Medical morning Branch and 1 capsule in the evening. triamcinolo 2021-09- No [id number] 40mg Univers ne 10-05 ity of acetonide 19:00: 18:04 [place] (KENALOG) 00 :00 Medical injection Branch 40 mg triamcinolo 2021-09- No [id number] 40mg 40 mg, Univers ne 10-05 Intramuscu ity of acetonide 19:00: 18:04 [place], [place]CE, [place] (KENALOG[place] 00 :00 1 dose, On Medi derrick injection Mon Branch 40 mg 08/05/22 at 1300, Routine triamcinolo 2021-09- No [id number] 40mg Univers ne 10-0514 ity of acetonide 19:00: 18:04 [place] (KENALOG) 00 :00 Medical injection Branch 40 mg triamcinolo 2021-09- No [id number] 40mg 40 mg, Univers ne 10-05 Intramuscu ity of acetonide 19:00: 18:04 [place], [place]CE, [place] (KENALOG) 00 :00 1 dose, On Medi derrick injection Mon Branch 40 mg 08/05/22 at 1300, Routine methylPREDN 2- No [id number] 80mg U nivers ISolone 06-07 ity of acetate 19:30: 18:38 [place] (DEPO-MEDRO 00 :00 Medical L) Branch injection 80 mg methylPREDN 0 2021- No [id number] 80mg 80 mg, Univers ISolone 06-07 Intramuscu ity o f acetate 19:30: 18:38 [place], ONCE, [place] (DEPO-MEDRO 00 :00 1 dose, On Me dical L) Fri Branch injection 06/07/22 at 80 mg 1430, Routine methylPREDN 2021- No [id number] 80mg U nivers ISolone 06-07 ity of acetate 19:30: 18:38 [place] (DEPO-MEDRO 00 :00 Medical L) Branch injection 80 mg methylPREDN 0 2021- No [id number] 80mg 80 mg, Univers ISolone 06-07 Intramuscu ity o f acetate 19:30: 18:38 [place], ONCE, [place] (DEPO-MEDRO 00 :00 1 dose, On Me dical L) Fri Branch injection 06/07/22 at 80 mg 1430, Routine Kenalog Kenalog 2021-0 No 40mg Common (Triamcinol (Triamcinol 7-21 S pirit one) one) 00:00: - [facility] Bupivicaine Bupivicaine 2-0 No 2.5mg Common Zebulon Zebulon 7-21 Spirit 00:00: - [facility] Kenalog Kenalog 2021-0 No 40mg Common (Triamcinol (Triamcinol 7-21 S pirit one) one) 00:00: - [facility]I [facility] Bupivicaine Bupivicaine 2-0 No 2.5mg Common Zebulon Zebulon 7-21 Spirit 00:00: - [facility] Kenalog Kenalog 2-0 No 40mg Common (Triamcinol (Triamcinol 7-21 S pirit one) one) 00:00: - CHI [facility] Bupivicaine Bupivicaine 2-0 No 2.5mg Common Zebulon Zebulon 7-21 Spirit 00:00: - CHI 00 [facility] Kenalog Kenalog 2-0 No 40mg Common (Triamcinol (Triamcinol 7-21 S pirit one) one) 00:00: - CHI 00 [facility] Bupivicaine Bupivicaine 2-0 No 2.5mg Common Zebulon Zebulon 7- Spirit 00:00: - CHI 00 [facility] Kenalog Kenalog 2021-0 No 40mg Common (Triamcinol (Triamcinol 7-21 S pirit one) one) 00:00: - CHI 00 [facility] Bupivicaine Bupivicaine 2-0 No 2.5mg Common Zebulon Zebulon 7- Spirit 00:00: - CHI 00 [facility] Kenalog Kenalog 2021-0 No 40mg Common (Triamcinol (Triamcinol 7-21 S pirit one) one) 00:00: - CHI 00 [facility] Bupivicaine Bupivicaine 2021-0 No 2.5mg Common Zebulon Zebulon 7- Spirit 00:00: - CHI 00 [facility] Kenalog Kenalog 2021-0 No 40mg Common (Triamcinol (Triamcinol 7-21 S pirit one) one) 00:00: - CHI 00 [facility] Bupivicaine Bupivicaine 2-0 No 2.5mg Common Zebulon Zebulon 7- Spirit 00:00: - CHI 00 [facility] Kenalog Kenalog 2-0 No 40mg Common (Triamcinol (Triamcinol 4-27 S pirit one) one) 00:00: - CHI 00 [facility] Lidocaine Lidocaine 2-0 No 10mg Com mon 01-16 Spirit 00:00: - CHI 00 [facility] Kenalog Kenalog 2-0 No 40mg Common (Triamcinol (Triamcinol 4-27 S pirit one) one) 00:00: - CHI 00 [facility] Lidocaine Lidocaine 2-0 No 10mg Com mon 01-16 Spirit 00:00: - CHI 00 [facility] Kenalog Kenalog 2-0 No 40mg Common (Triamcinol (Triamcinol 4-27 S pirit one) one) 00:00: - CHI 00 [facility] Lidocaine Lidocaine 2-0 No 10mg Com 01-16 Spirit 00:00: - CHI 00 [facility] Kenalog Kenalog 2-0 No 40mg Common (Triamcinol (Triamcinol 4-27 S pirit one) one) 00:00: - CHI 00 [facility] Lidocaine Lidocaine 2-0 No 10mg Com 01-16 Spirit 00:00: - CHI 00 [facility] Kenalog Kenalog 2-0 No 40mg Common (Triamcinol (Triamcinol 4-27 S pirit one) one) 00:00: - [facility] Lidocaine Lidocaine 2-0 No 10mg Com 01-16 Spirit 00:00: - CHI [facility] Kenalog Kenalog 2-0 No 40mg Common (Triamcinol (Triamcinol 4-27 S pirit one) one) 00:00: - [facility] Lidocaine Lidocaine 2-0 No 10mg Com 01-16 Spirit 00:00: - CHI 00 [facility] Kenalog Kenalog 2-0 No 40mg Common (Triamcinol (Triamcinol 4-27 S pirit one) one) 00:00: - CHI 00 [facility] Lidocaine Lidocaine 2-0 No 10mg Com 01-16 Spirit 00:00: - [facility] Lidocaine Lidocaine 2-0 No 10mg Com 12-06 Spirit 00:00: - [facility] Kenalog Kenalog 2-0 No 40mg Common (Triamcinol (Triamcinol 3-17 S pirit one) one) 00:00: - [facility] Lidocaine Lidocaine 2-0 No 10mg Com 12-06 Spirit 00:00: - CHI 00 [facility] Kenalog Kenalog 2-0 No 40mg Common (Triamcinol (Triamcinol 3-17 S pirit one) one) 00:00: - [facility] Lidocaine Lidocaine 2-0 No 10mg Com 12-06 Spirit 00:00: - [facility] Kenalog Kenalog 2021-0 No 40mg Common (Triamcinol (Triamcinol 3-17 S pirit one) one) 00:00: - [facility] Lidocaine Lidocaine 2021-0 No 10mg Com 12-06 Spirit 00:00: - [facility] Kenalog Kenalog 2021-0 No 40mg Common (Triamcinol (Triamcinol 3-17 S pirit one) one) 00:00: - [facility] Lidocaine Lidocaine 2021-0 No 10mg Com 12-06 Spirit 00:00: - [facility] Kenalog Kenalog 2021-0 No 40mg Common (Triamcinol (Triamcinol 3-17 S pirit one) one) 00:00: - [facility] Lidocaine Lidocaine 2021-0 No 10mg Com 12-06 Spirit 00:00: - [facility] Johannalog Kenalog 2021-0 No 40mg Common (Triamcinol (Triamcinol 3-17 S pirit one) one) 00:00: - [facility] Lidocaine Lidocaine 2021-0 No 10mg Com 12-06 Spirit 00:00: - [facility] Johannalog Kenalog 2021-0 No 40mg Common (Triamcinol (Triamcinol 3-17 S pirit one) one) 00:00: - [facility] carvedilol 0 Yes 3.125mg Take 3.125 Univers [...] 2 [place] tablet 41 (two) Medical times [place] daily with meals. traMADol 50 2020-0 Yes 50mg Take 50 mg Univers mg tablet 9-24 by mouth 3 ity of 14:31: (three) [place] 41 times Medical daily. Branch carvedilol 2020-0 Yes 3.125mg Take 3.125 Univers (COREG) 9-24 mg by ity of 3.125 mg 14:31: mouth 2 [place] tablet 41 (two) Medical times [place] daily with meals. traMADol 50 2020-0 Yes [...] [place] 41 times Medical daily. Branch carvedilol 1-0 Yes 3.125mg Take 3.125 Univers (COREG) 9-24 [...] 2 [place] tablet 41 (two) Medical times [place] daily with meals. traMADol 50 0 Yes 50mg Take 50 mg Univers mg tablet 9-24 by mouth 3 ity of 14:31: (three) [place] 41 times Medical daily. Branch carvedilol 0 Yes 3.125mg Take 3.125 Univers (COREG) 9-24 mg by ity of 3.125 mg 14:31: mouth 2 [place] tablet 41 (two) Medical times [place] daily with meals. traMADol 50 0 Yes 50mg Take 50 mg Univers mg tablet 9-24 by mouth 3 ity of 14:31: (three) [place] 41 times Medical daily. Branch carvedilol Yes 3.125mg Take 3.125 Univers (COREG) 9-24 mg by ity of 3.125 mg 14:31: mouth 2 [place] tablet 41 (two) Medical [facility] daily with meals. carvedilol Yes 3.125mg Take 3.125 Univers (COREG) 9-24 mg by ity of 3.125 mg 14:31: mouth 2 [place] tablet 41 (two) Medical [facility] daily with meals. [facility] 0 Yes Univers 500 mcg 9-22 ity of tablet 00:00: [facility] [place] [place] 2020-0 Yes Univers 500 mcg 9-22 ity of tablet 00:00: [facility] [place] 2020-0 Yes Univers 500 mcg 9-22 ity of tablet 00:00: [facility] [place] 0 Yes Univers 500 mcg 9-22 ity of tablet 00:00: [facility] [place] 2020-0 Yes Univers 500 mcg 9-22 ity of tablet 00:00: [facility] [place] 2020-0 Yes Univers 500 mcg 9-22 ity of tablet 00:00: [facility] [place] 2020-0 Yes Univers 500 mcg 9-22 ity of tablet 00:00: [facility] [place] 2020-0 Yes Univers 500 mcg 9-22 ity of tablet 00:00: [place] [address] [facility] [place] 2020-0 Yes Univers 500 mcg 9-22 ity of tablet 00:00: [place] Medical [facility] 2020-0 Yes Univers 500 mcg 9-22 ity of tablet 00:00: [place] Medical Branch [facility] 2020-0 Yes Univers 500 mcg 9-22 ity of tablet 00:00: [place] [address] Medical Branch [facility] 2020-0 Yes Univers 500 mcg 9-22 ity of tablet 00:00: [place] Medical [facility] 2020-0 Yes Univers 500 mcg 9-22 ity of tablet 00:00: [place] Medical [facility] 2020-0 Yes Univers 500 mcg 9-22 ity of tablet 00:00: [place] [address] Medical [facility] 2020-0 Yes Univers 500 mcg 9-22 ity of tablet 00:00: [place] [address] Medical [facility] 2020-0 Yes Univers 500 mcg 9-22 ity of tablet 00:00: [address] 2020-0 Yes Univers 500 mcg 9-22 ity of tablet 00:00: [address] predniSONE 2020-0 Yes 10mg Take 10 mg U nivers 10 mg 8-31 by mouth ity of tablet 00:00: daily. [place] [facility] predniSONE 2020-0 Yes 10mg Take 10 mg U nivers 10 mg 8-31 by mouth ity of tablet 00:00: daily. [address] predniSONE 2020-0 Yes 10mg Take 10 mg U nivers 10 mg 8-31 by mouth ity of tablet 00:00: daily. [address] predniSONE 2020-0 Yes 10mg Take 10 mg U nivers 10 mg 8-31 by mouth ity of tablet 00:00: daily. [place] [facility] predniSONE 1-0 2- No 10mg Take 10 mg Univers 10 mg 8-31 11-14 by mouth ity of tablet 00:00: 00:00 daily. [place] 00 :00 [facility] predniSONE 2021-0 2- No 10mg Take 10 mg Univers 10 mg 8-31 11-14 by mouth ity of tablet 00:00: 00:00 daily. [place] 00 :00 [facility] predniSONE 2021-0 Yes TAKE 1 Unive rs 20 mg 8-26 TABLET BY ity of tablet 00:00: MOUTH [place] [address] TWICE Medical DAILY FOR Branch 7 DAYS THEN 1 TABLET FOR 7 DAYS predniSONE 2020-0 Yes TAKE 1 Unive rs 20 mg 8-26 TABLET BY ity of tablet 00:00: MOUTH [place] 00 TWICE Medical DAILY FOR Branch 7 DAYS THEN 1 TABLET FOR 7 DAYS predniSONE 2020-0 Yes TAKE 1 Unive rs 20 mg 8-26 TABLET BY ity of tablet 00:00: MOUTH [place] 00 TWICE Medical DAILY FOR Branch 7 DAYS THEN 1 TABLET FOR 7 DAYS predniSONE 2020-0 Yes TAKE 1 Unive rs 20 mg 8-26 TABLET BY ity of tablet 00:00: MOUTH [place] 00 TWICE Medical DAILY FOR Branch 7 [...] TABLET BY ity of tablet 00:00: 00:00 [facility] 00 :00 TWICE Medical DAILY FOR Branch 7 DAYS THEN 1 TABLET FOR 7 DAYS benzonatate Yes TAKE 1 Univ ers 100 mg 8-25 CAPSULE BY ity of capsule 00:00: MOUTH [place] 00 THREE Medical TIMES Branch DAILY NEEDED FOR COUGH fluconazole Yes 200mg Take 200 U nivers 200 mg 8-25 mg by ity of tablet 00:00: mouth [place] 00 every Medical morning. Branch POLY-IRON Yes Take by Unive rs 150 mg iron 8-25 mouth ity of capsule 00:00: daily. [place] Medical Branch LIDOCAINE Yes TAKE 15ML Uni vers VISCOUS 2 % 8-25 BY MOUTH ity of solution 00:00: THREE [place] 00 TIMES Medical DAILY Branch NEEDED FOR SORE THROAT benzonatate Yes TAKE 1 Univ ers 100 mg 8-25 CAPSULE BY ity of capsule 00:00: MOUTH [place] [address] THREE Medical TIMES Branch DAILY NEEDED FOR COUGH fluconazole Yes 200mg Take 200 U nivers 200 mg 8-25 mg by ity of tablet 00:00: mouth [place] 00 every Medical morning. Branch POLY-IRON Yes Take by Unive rs 150 mg iron 8-25 mouth ity of capsule 00:00: daily. [place] Medical Branch LIDOCAINE 2021-0 Yes TAKE 15ML Uni vers VISCOUS 2 % 8-25 BY MOUTH ity of solution 00:00: THREE [place] 00 TIMES Medical DAILY Branch NEEDED FOR SORE THROAT benzonatate 2020-0 Yes TAKE 1 Univ ers 100 mg 8-25 CAPSULE BY ity of capsule 00:00: MOUTH [place] THREE Medical TIMES Branch DAILY NEEDED FOR COUGH fluconazole 2020-0 Yes 200mg Take 200 U nivers 200 mg 8-25 mg by ity of tablet 00:00: mouth [place] every Medical morning. Branch POLY-IRON 2020-0 Yes Take by Unive rs 150 mg iron 8-25 mouth ity of capsule 00:00: daily. Medical Branch LIDOCAINE 2020- Yes TAKE 15ML Uni vers VISCOUS 2 % 8-25 BY MOUTH ity of solution 00:00: THREE [place] TIMES Medical DAILY Branch NEEDED FOR SORE THROAT benzonatate 0 Yes TAKE 1 Univ ers 100 mg 8-25 CAPSULE BY ity of capsule 00:00: MOUTH [place] THREE Medical TIMES Branch DAILY NEEDED FOR COUGH fluconazole 2020-0 Yes 200mg Take 200 U nivers 200 mg 8-25 mg by ity of tablet 00:00: mouth [place] every Medical morning. Branch POLY-IRON 2020-0 Yes Take by Unive rs 150 mg iron 8-25 mouth ity of capsule 00:00: daily. [place] Medical Branch LIDOCAINE 2020-0 Yes TAKE 15ML Uni vers VISCOUS 2 % 8-25 BY MOUTH ity of solution 00:00: THREE [place] TIMES Medical DAILY Branch NEEDED FOR SORE THROAT benzonatate 2020-0 Yes TAKE 1 Univ ers 100 mg 8-25 CAPSULE BY ity of capsule 00:00: MOUTH [place] THREE Medical TIMES Branch DAILY NEEDED FOR COUGH fluconazole 2020-0 Yes 200mg Take 200 U nivers 200 mg 8-25 mg by ity of tablet 00:00: mouth [place] every Medical morning. Branch POLY-IRON 2020-0 Yes Take by Unive rs 150 mg iron 8-25 mouth ity of capsule 00:00: daily. [place] Medical Branch LIDOCAINE 2020-0 Yes TAKE 15ML Uni vers VISCOUS 2 % 8-25 BY MOUTH ity of solution 00:00: THREE [place] TIMES Medical DAILY Branch NEEDED FOR SORE THROAT benzonatate 2020-0 Yes TAKE 1 Univ ers 100 mg 8-25 CAPSULE BY ity of capsule 00:00: MOUTH THREE Medical TIMES Branch DAILY NEEDED FOR COUGH fluconazole 2020-0 Yes 200mg Take 200 U nivers 200 mg 8-25 mg by ity of tablet 00:00: mouth [place] every Medical morning. Branch POLY-IRON 2020-0 Yes Take by Unive rs 150 mg iron 8-25 mouth ity of capsule 00:00: daily. [place] Medical Branch LIDOCAINE 2020-0 Yes TAKE 15ML Uni vers VISCOUS 2 % 8-25 BY MOUTH ity of solution 00:00: THREE [place] TIMES Medical DAILY Branch NEEDED FOR SORE THROAT benzonatate 2020-0 Yes TAKE 1 Univ ers 100 mg 8-25 CAPSULE BY ity of capsule 00:00: MOUTH [place] THREE Medical TIMES Branch DAILY NEEDED FOR COUGH fluconazole 2020-0 Yes 200mg Take 200 U nivers 200 mg 8-25 mg by ity of tablet 00:00: mouth [place] every Medical morning. Branch POLY-IRON 2020-0 Yes Take by Unive rs 150 mg iron 8-25 mouth ity of capsule 00:00: daily. [place] [facility] LIDOCAINE 2020-0 Yes TAKE 15ML Uni vers VISCOUS 2 % 8-25 BY MOUTH ity of solution 00:00: [place] TIMES Medical DAILY Branch NEEDED FOR SORE THROAT benzonatate 2020-0 Yes TAKE 1 Univ ers 100 mg 8-25 CAPSULE BY ity of capsule 00:00: MOUTH [place] THREE Medical TIMES Branch DAILY NEEDED FOR COUGH fluconazole 2020-0 Yes 200mg Take 200 U nivers 200 mg 8-25 mg by ity of tablet 00:00: mouth [place] every Medical morning. Branch POLY-IRON 2020-0 Yes Take by Unive rs 150 mg iron 8-25 mouth ity of capsule 00:00: daily. [place] [facility] LIDOCAINE 2020-0 Yes TAKE 15ML Uni vers VISCOUS 2 % 8-25 BY MOUTH ity of solution 00:00: THREE [place] TIMES Medical DAILY Branch NEEDED FOR SORE THROAT benzonatate 2020-0 Yes TAKE 1 Univ ers 100 mg 8-25 CAPSULE BY ity of capsule 00:00: MOUTH [place] [address] THREE Medical TIMES Branch DAILY NEEDED FOR COUGH fluconazole 2020-0 Yes 200mg Take 200 U nivers 200 mg 8-25 mg by ity of tablet 00:00: mouth [place] 00 every Medical morning. Branch POLY-IRON 2020-0 Yes Take by Unive rs 150 mg iron 8-25 mouth ity of capsule 00:00: daily. Medical Branch LIDOCAINE 2020-0 Yes TAKE 15ML Uni vers VISCOUS 2 % 8-25 BY MOUTH ity of solution 00:00: THREE [place] TIMES Medical DAILY Branch NEEDED FOR SORE THROAT benzonatate 0 Yes TAKE 1 Univ ers 100 mg 8-25 CAPSULE BY ity of capsule 00:00: MOUTH [place] THREE Medical TIMES Branch DAILY NEEDED FOR COUGH fluconazole 2020-0 Yes 200mg Take 200 U nivers 200 mg 8-25 mg by ity of tablet 00:00: mouth [place] every Medical morning. Branch POLY-IRON 2020-0 Yes Take by Unive rs 150 mg iron 8-25 mouth ity of capsule 00:00: daily. [place] [facility] LIDOCAINE 2020-0 Yes TAKE 15ML Uni vers VISCOUS 2 % 8-25 BY MOUTH ity of solution 00:00: THREE [place] TIMES Medical DAILY Branch NEEDED FOR SORE THROAT benzonatate 0 Yes TAKE 1 Univ ers 100 mg 8-25 CAPSULE BY ity of capsule 00:00: MOUTH [place] THREE Medical TIMES Branch DAILY NEEDED FOR COUGH fluconazole 2020-0 Yes 200mg Take 200 U nivers 200 mg 8-25 mg by ity of tablet 00:00: mouth [place] every Medical morning. Branch POLY-IRON 2020-0 Yes Take by Unive rs 150 mg iron 8-25 mouth ity of capsule 00:00: daily. [place] [facility] LIDOCAINE 2020-0 Yes TAKE 15ML Uni vers VISCOUS 2 % 8-25 BY MOUTH ity of solution 00:00: THREE [place] TIMES Medical DAILY Branch NEEDED FOR SORE THROAT benzonatate 0 Yes TAKE 1 Univ ers 100 mg 8-25 CAPSULE BY ity of capsule 00:00: MOUTH [place] THREE Medical TIMES Branch DAILY NEEDED FOR COUGH fluconazole 2020-0 Yes 200mg Take 200 U nivers 200 mg 8-25 mg by ity of tablet 00:00: mouth [place] every Medical morning. Branch POLY-IRON 2020-0 Yes Take by Unive rs 150 mg iron 8-25 mouth ity of capsule 00:00: daily. [place] [facility] LIDOCAINE 2020-0 Yes TAKE 15ML Uni vers VISCOUS 2 % 8-25 BY MOUTH ity of solution 00:00: THREE [place] TIMES Medical DAILY Branch NEEDED FOR SORE THROAT benzonatate 2020-0 Yes TAKE 1 Univ ers 100 mg 8-25 CAPSULE BY ity of capsule 00:00: MOUTH [place] THREE Medical TIMES Branch DAILY NEEDED FOR COUGH fluconazole 2020-0 Yes 200mg Take 200 U nivers 200 mg 8-25 mg by ity of tablet 00:00: mouth [place] every Medical morning. Branch POLY-IRON 2020-0 Yes Take by Unive rs 150 mg iron 8-25 mouth ity of capsule 00:00: daily. [place] [facility] LIDOCAINE 2020-0 Yes TAKE 15ML Uni vers VISCOUS 2 % 8-25 BY MOUTH ity of solution 00:00: [place] TIMES Medical DAILY Branch NEEDED FOR SORE THROAT benzonatate 2020-0 Yes TAKE 1 Univ ers 100 mg 8-25 CAPSULE BY ity of capsule 00:00: MOUTH [place] THREE Medical TIMES Branch DAILY NEEDED FOR COUGH fluconazole 2020-0 Yes 200mg Take 200 U nivers 200 mg 8-25 mg by ity of tablet 00:00: mouth [place] every Medical morning. Branch POLY-IRON 2020-0 Yes Take by Unive rs 150 mg iron 8-25 mouth ity of capsule 00:00: daily. [place] [facility] LIDOCAINE 2020-0 Yes TAKE 15ML Uni vers VISCOUS 2 % 8-25 BY MOUTH ity of solution 00:00: THREE [place] Medical DAILY Branch NEEDED FOR SORE THROAT benzonatate 2020-0 Yes TAKE 1 Univ ers 100 mg 8-25 CAPSULE BY ity of capsule 00:00: MOUTH [place] THREE Medical TIMES Branch DAILY NEEDED FOR COUGH fluconazole 2020-0 Yes 200mg Take 200 U nivers 200 mg 8-25 mg by ity of tablet 00:00: mouth [place] every Medical morning. Branch POLY-IRON 2020-0 Yes Take by Unive rs 150 mg iron 8-25 mouth ity of capsule 00:00: daily. [place] [facility] LIDOCAINE 2020-0 Yes TAKE 15ML Uni vers VISCOUS 2 % 8-25 BY MOUTH ity of solution 00:00: THREE [place] TIMES Medical DAILY Branch NEEDED FOR SORE THROAT LIDOCAINE 2020-0 Yes TAKE 15ML Uni vers VISCOUS 2 % 8-25 BY MOUTH ity of solution 00:00: THREE [place] 00 TIMES Medical DAILY Branch NEEDED FOR SORE THROAT LIDOCAINE Yes TAKE 15ML Uni vers VISCOUS [...] [place] 00 TWICE Medical DAILY. Branch nystatin 2020-0 Yes SHAKE Univers 100,000 7-28 LIQUID AND ity of unit/mL 00:00: TAKE 5 ML [place] suspension 00 BY MOUTH Medic al THREE Branch TIMES DAILY zinc 2021-0 Yes 220mg Take 220 Univers sulfate 50 7-28 mg by ity of mg zinc 00:00: mouth [place] (220 mg) 00 daily. Medical capsule Branch acetaZOLAMI Yes 250mg Take 1 Uni vers DE 250 mg 7-28 tablet by ity o f tablet 00:00: mouth in [place] 00 the Medical morning Branch and 1 tablet in the evening. ELIQUIS 5 Yes 5mg Take 1 Univer s mg tablet 7-28 tablet by ity o f 00:00: mouth in [place] 00 the Medical morning Branch and 1 tablet in the evening. acetaZOLAMI Yes 250mg Take 1 Uni vers DE 250 mg 7-28 tablet by ity o f tablet 00:00: mouth in [place] 00 the Medical morning Branch and 1 tablet in the evening. ELIQUIS 5 Yes 5mg Take 1 Univer s mg tablet 7-28 tablet by ity o f 00:00: mouth in [place] 00 the Medical morning Branch and 1 tablet in the evening. Omeprazole Omeprazole No QD Omeprazole 20 MG 20 MG 4-02 20 MG 00:00: 00 Omeprazole Omeprazole 0 No QD Omeprazole 20 MG 20 MG 4-02 20 MG 00:00: 00 Omeprazole Omeprazole 0 No QD Omeprazole 20 MG 20 MG 4-02 20 MG 00:00: 00 Omeprazole Omeprazole 2020-0 No QD Omeprazole 20 MG 20 MG 4-02 20 MG 00:00: 00 Omeprazole Omeprazole 2020-0 No QD Omeprazole 20 MG 20 MG 4-02 20 MG 00:00: 00 Omeprazole Omeprazole 2020-0 No QD Omeprazole 20 MG 20 MG [...] 62.5-25 Branch mcg/actuati on inhalation disk albuterol 2020-0 Yes 2.5mg Inhale 2.5 U nivers (PROVENTIL) [...] by mouth ity of tablet 16:35: at [place] [address] bedtime. Medical Branch clonazePAM Yes .5mg Take [...] by mouth ity of tablet 16:35: at [place] [address] bedtime. Medical Branch clonazePAM 0 Yes .5mg Take 0.5 Uni vers 0.5 mg 2-25 mg by ity of tablet 16:35: mouth as [place] 55 needed. Medical Branch umeclidiniu 0 Yes Inhale. Uni vers m-vilantero 2-25 ity of l (ANORO 16:35: [place] ELLIPTA) 55 Medical 62.5-25 Branch mcg/actuati on inhalation disk guaiFENesin 2020-0 Yes [id number] 100mg Take 5 mL Univers 100 mg/5 mL 2-25 by mouth ity of solution 00:00: every 4 [place] 00 (four) Medical hours as Branch needed for Cough. furosemide 0 Yes [id number] 40mg Take 2 Univers 20 mg 2-25 tablets by ity of tablet 00:00: mouth [place] 00 daily. Medical Branch guaiFENesin 0 Yes [id number] 100mg Take 5 mL Univers 100 mg/5 mL 2-25 by mouth ity of solution 00:00: every 4 [place] 00 (four) Medical hours as Branch needed for Cough. furosemide 2020-0 Yes [id number] 40mg Take 2 Univers 20 mg 2-25 tablets by ity of tablet 00:00: mouth [place] 00 daily. Medical Branch guaiFENesin 0 Yes [id number] 100mg Take 5 mL [facility] 100 mg/5 mL 2-25 by mouth ity of solution 00:00: every 4 [place] 00 (four) Medical hours as Branch needed for Cough. furosemide 2020-0 Yes [id number] 40mg Take 2 Univers 20 mg 2-25 tablets by ity of tablet 00:00: mouth [place] 00 daily. Medical Branch guaiFENesin 0 Yes [id number] 100mg Take 5 mL Univers 100 mg/5 mL 2-25 by mouth ity of solution 00:00: every 4 [place] 00 (four) Medical hours as Branch needed for Cough. furosemide 2020-0 Yes [id number] 40mg Take 2 Univers 20 mg 2-25 tablets by ity of tablet 00:00: mouth [place] 00 daily. Medical Branch guaiFENesin 0 Yes [id number] 100mg Take 5 mL Univers 100 mg/5 mL 2-25 by mouth ity of solution 00:00: every 4 [place] 00 (four) Medical hours as Branch needed for Cough. furosemide 2020-0 Yes [id number] 40mg Take 2 [facility] 20 mg 2-25 tablets by ity of tablet 00:00: mouth [place] 00 daily. Medical Branch guaiFENesin 2020-0 Yes [id number] 100mg Take 5 mL Univers 100 mg/5 mL 2-25 by mouth ity of solution 00:00: every 4 [place] 00 (four) Medical hours as Branch needed for Cough. furosemide 2020-0 Yes [id number] 40mg Take 2 [facility] 20 mg 2-25 tablets by ity of tablet 00:00: mouth [place] 00 daily. Medical Branch guaiFENesin 2020-0 Yes [id number] 100mg Take 5 mL [facility] 100 mg/5 mL 2-25 by mouth ity of solution 00:00: every 4 [place] 00 (four) Medical hours as Branch needed for Cough. furosemide 2020-0 Yes [id number] 40mg Take 2 [facility] 20 mg 2-25 tablets by ity of tablet 00:00: mouth [place] 00 daily. Medical Branch guaiFENesin 2020-0 Yes [id number] 100mg Take 5 mL [facility] 100 mg/5 mL 2-25 by mouth ity of solution 00:00: every 4 [place] 00 (four) Medical hours as Branch needed for Cough. furosemide 2020-0 Yes [id number] 40mg Take 2 [facility] 20 mg 2-25 tablets by ity of tablet 00:00: mouth [place] 00 daily. Medical Branch guaiFENesin 2020-0 Yes [id number] 100mg Take 5 mL [facility] 100 mg/5 mL 2-25 by mouth ity of solution 00:00: every 4 [place] 00 (four) Medical hours as Branch needed for Cough. furosemide 2020-0 Yes [id number] 40mg Take 2 [facility] 20 mg 2-25 tablets by ity of tablet 00:00: mouth [place] 00 daily. Medical Branch guaiFENesin 2020-0 Yes [id number] 100mg Take 5 mL [facility] 100 mg/5 mL 2-25 by mouth ity of solution 00:00: every 4 [place] 00 (four) Medical hours as Branch needed for Cough. furosemide 2020-0 Yes [id number] 40mg Take 2 [facility] 20 mg 2-25 tablets by ity of tablet 00:00: mouth [place] 00 daily. Medical Branch guaiFENesin 2020-0 Yes [id number] 100mg Take 5 mL [facility] 100 mg/5 mL 2-25 by mouth ity of solution 00:00: every 4 [place] 00 (four) Medical hours as Branch needed for Cough. furosemide 2020-0 Yes [id number] 40mg Take 2 [facility] 20 mg 2-25 tablets by ity of tablet 00:00: mouth [place] 00 daily. Medical Branch guaiFENesin 2020-0 Yes [id number] 100mg Take 5 mL [facility] 100 mg/5 mL 2-25 by mouth ity of solution 00:00: every 4 [place] 00 (four) Medical hours as Branch needed for Cough. furosemide 2020-0 Yes [id number] 40mg Take 2 [facility] 20 mg 2-25 tablets by ity of tablet 00:00: mouth [place] 00 daily. Medical Branch guaiFENesin 2020-0 Yes [id number] 100mg Take 5 mL [facility] 100 mg/5 mL 2-25 by mouth ity of solution 00:00: every 4 [place] 00 (four) Medical hours as Branch needed for Cough. furosemide 2020-0 Yes [id number] 40mg Take 2 [facility] 20 mg 2-25 tablets by ity of tablet 00:00: mouth [place] 00 daily. Medical Branch guaiFENesin 2020-0 Yes [id number] 100mg Take 5 mL [facility] 100 mg/5 mL 2-25 by mouth ity of solution 00:00: every 4 [place] 00 (four) Medical hours as Branch needed for Cough. furosemide 2020-0 Yes [id number] 40mg Take 2 [facility] 20 mg 2-25 tablets by ity of tablet 00:00: mouth [place] 00 daily. Medical Branch guaiFENesin 2020-0 Yes [id number] 100mg Take 5 mL [facility] 100 mg/5 mL 2-25 by mouth ity of solution 00:00: every 4 [place] 00 (four) Medical hours as Branch needed for Cough. furosemide 2020-0 Yes [id number] 40mg Take 2 [facility] 20 mg 2-25 tablets by ity of tablet 00:00: mouth [place] 00 daily. Medical Branch furosemide 2020-0 Yes [id number] 40mg Take 2 [facility] 20 mg 2-25 tablets by ity of tablet 00:00: mouth [place] 00 daily. Medical Branch furosemide 2020-0 Yes [id number] 40mg Take 2 Univers 20 mg 2-25 [...] tablet 00:00: mouth daily. Medical Branch pantoprazol 202-0 Yes 40mg Take 1 Univ ers e 40 mg EC 2-21 tablet by ity of tablet 00:00: mouth daily. Medical Branch gabapentin 2021-0 Yes 300mg Take 1 [facility] ers 300 mg 2-20 capsule by ity of capsule 00:00: mouth 2 (two) Medical times Branch daily. melatonin 3 202-0 Yes 6mg Take 2 Univ ers mg tablet 2-20 tablets by ity of 00:00: mouth at [place] bedtime. Medical Branch gabapentin 2021-0 Yes 300mg Take 1 [facility] ers 300 mg 2-20 capsule by ity of capsule 00:00: mouth () Medical times Branch daily. melatonin 3 2020-0 Yes 6mg Take 2 Univ ers mg tablet 2-20 tablets by ity of 00:00: mouth at [place] bedtime. Medical Branch gabapentin 2020-0 Yes 300mg Take 1 [facility] ers 300 mg 2-20 capsule by ity of capsule 00:00: mouth () Medical times Branch daily. melatonin 3 2020-0 Yes 6mg Take 2 [facility] ers mg tablet 2-20 tablets by ity of 00:00: mouth at [place] bedtime. Medical Branch gabapentin 2021-0 Yes 300mg Take 1 [facility] ers 300 mg 2-20 capsule by ity of capsule 00:00: mouth () Medical times Branch daily. melatonin 3 2020-0 Yes 6mg Take 2 [facility] ers mg tablet 2-20 tablets by ity of 00:00: mouth at [place] bedtime. Medical Branch gabapentin 2021-0 Yes 300mg Take 1 [facility] ers 300 mg 2-20 capsule by ity of capsule 00:00: mouth 2 (two) Medical times Branch daily. melatonin 3 1-0 Yes 6mg Take 2 Univ ers mg tablet 2-20 tablets by ity of 00:00: mouth at [place] bedtime. Medical Branch gabapentin 2021-0 Yes 300mg Take 1 [facility] ers 300 mg 2-20 capsule by ity of capsule 00:00: mouth 2 (two) Medical times Branch daily. melatonin 3 2020-0 Yes 6mg Take 2 [facility] ers mg tablet 2-20 tablets by ity of 00:00: mouth at [place] [address] bedtime. Medical Branch gabapentin 2021-0 Yes 300mg Take 1 [facility] ers 300 mg 2-20 capsule by ity of capsule 00:00: mouth 2 () Medical times Branch daily. melatonin 3 2021-0 Yes 6mg Take 2 [facility] ers mg tablet 2-20 tablets by ity of 00:00: mouth at [place] [address] bedtime. Medical Branch gabapentin 2021-0 Yes 300mg Take 1 [facility] ers 300 mg 2-20 capsule by ity of capsule 00:00: mouth 2 () Medical times Branch daily. melatonin 3 2021-0 Yes 6mg Take 2 Univ ers mg tablet 2-20 tablets by ity of 00:00: mouth at [place] [address] bedtime. Medical Branch gabapentin 2021-0 Yes 300mg Take 1 [facility] ers 300 mg 2-20 capsule by ity of capsule 00:00: mouth 2 () Medical times Branch daily. melatonin 3 1-0 Yes 6mg Take 2 Univ ers mg tablet 2-20 tablets by ity of 00:00: mouth at [place] [address] bedtime. Medical Branch gabapentin 2021-0 Yes 300mg Take 1 [facility] ers 300 mg 2-20 capsule by ity of capsule 00:00: mouth 2 [place] () Medical times Branch daily. melatonin 3 2020-0 Yes 6mg Take 2 Univ ers mg tablet 2-20 tablets by ity of 00:00: mouth at [place] [address] bedtime. Medical Branch gabapentin 2021-0 Yes 300mg Take 1 [facility] ers 300 mg 2-20 capsule by ity of capsule 00:00: mouth 2 [place] () Medical times Branch daily. melatonin 3 1-0 Yes 6mg Take 2 Univ ers mg tablet 2-20 tablets by ity of 00:00: mouth at [place] [address] bedtime. Medical Branch gabapentin 2021-0 Yes 300mg Take 1 Univ ers 300 mg 2-20 capsule by ity of capsule 00:00: mouth 2 [place] () Medical times Branch daily. melatonin 3 2021-0 Yes 6mg Take 2 Univ ers mg tablet 2-20 tablets by ity of 00:00: mouth at [place] [address] bedtime. Medical Branch gabapentin 2021-0 Yes 300mg Take 1 [facility] ers 300 mg 2-20 capsule by ity of capsule 00:00: mouth 2 [place] (two) Medical times Branch daily. melatonin 3 2021-0 Yes 6mg Take 2 Univ ers mg tablet 2-20 tablets by ity of 00:00: mouth at [place] [address] bedtime. Medical Branch gabapentin 2020-0 Yes 300mg Take 1 Univ ers 300 mg 2-20 capsule by ity of capsule 00:00: mouth 2 [place] (two) Medical times Branch daily. melatonin 3 2020-0 Yes 6mg Take 2 Univ ers mg tablet 2-20 tablets by ity of 00:00: mouth at [place] [address] bedtime. Medical Branch gabapentin 2020-0 Yes 300mg Take 1 Univ ers 300 mg 2-20 capsule by ity of capsule 00:00: mouth 2 [place] (two) Medical times Branch daily. melatonin 3 2020-0 Yes 6mg Take 2 Univ ers mg tablet 2-20 tablets by ity of 00:00: mouth at [place] [address] bedtime. Medical Branch melatonin 3 2020-0 Yes 6mg Take 2 Univ ers mg tablet 2-20 tablets by ity of 00:00: mouth at [place] [address] bedtime. Medical Branch melatonin 3 2020-0 Yes 6mg Take 2 Univ ers mg tablet 2-20 tablets by ity of 00:00: mouth at [place] [address] bedtime. Medical Branch fluticasone 2018- Yes 1{spray Use 1 Un merry propionate 6-24 } [place] in ity o f 50 00:00: each [place] mcg/actuati 00 nostril Medic al on nasal daily. Branch spray fluticasone 2018-0 Yes 1{spray Use 1 Un merry propionate 6-24 } [place] in ity o f 50 00:00: each [place] mcg/actuati 00 nostril Medic al on nasal daily. Branch spray fluticasone 2018-0 Yes 1{spray Use 1 Un merry propionate 6-24 } [place] in ity o f 50 00:00: each [place] mcg/actuati 00 nostril Medic al on nasal daily. Branch spray fluticasone 2019-0 Yes 1{spray Use 1 Un merry propionate 6-24 } [place] in ity o f 50 00:00: each [place] mcg/actuati 00 nostril Medic al on nasal daily. Branch spray fluticasone 2018-0 Yes 1{spray Use 1 Un merry propionate 6-24 } [place] in ity o f 50 00:00: each [place] mcg/actuati 00 nostril Medic al on nasal daily. Branch spray fluticasone 2019-0 Yes 1{spray Use 1 Un merry propionate 6-24 } [place] in ity o f 50 00:00: each [place] mcg/actuati 00 nostril Medic al on nasal daily. Branch spray fluticasone 2019-0 Yes 1{spray Use 1 Un merry propionate 6-24 } [place] in ity o f 50 00:00: each [place] mcg/actuati 00 nostril Medic al on nasal daily. Branch spray fluticasone 2019-0 Yes 1{spray Use 1 Un merry propionate 6-24 } [place] in ity o f 50 00:00: each [place] mcg/actuati 00 nostril Medic al on nasal daily. Branch spray fluticasone 2019-0 Yes 1{spray Use 1 Un merry propionate 6-24 } [place] in ity o f 50 00:00: each [place] mcg/actuati 00 nostril Medic al on nasal daily. Branch spray fluticasone 2018-0 Yes 1{spray Use 1 Un merry propionate 6-24 } [place] in ity o f 50 00:00: each [place] mcg/actuati 00 nostril Medic al on nasal daily. Branch spray fluticasone 2018-0 Yes 1{spray Use 1 Un merry propionate 6-24 } [place] in ity o f 50 00:00: each [place] mcg/actuati 00 nostril Medic al on nasal daily. Branch spray fluticasone 2018-0 Yes 1{spray Use 1 Un merry propionate 6-24 } [place] in ity o f 50 00:00: each [place] mcg/actuati 00 nostril Medic al on nasal daily. Branch spray fluticasone 2019-0 Yes 1{spray Use 1 Un merry propionate 6-24 } [place] in ity o f 50 00:00: each [place] mcg/actuati 00 nostril Medic al on nasal daily. Branch spray fluticasone 2019-0 Yes 1{spray Use 1 Un merry propionate 6-24 } [place] in ity o f 50 00:00: each [place] mcg/actuati 00 nostril Medic al on nasal daily. Branch spray fluticasone 2019-0 Yes 1{spray Use 1 Un merry propionate 6-24 } [place] in ity o f 50 00:00: each [place] mcg/actuati 00 nostril Medic al on nasal daily. Branch spray fluticasone Yes 1{spray Use 1 Un merry propionate 6-24 } [place] in ity o f 50 00:00: each [place] mcg/actuati 00 nostril Medic al on nasal daily. Branch spray fluticasone Yes 1{spray Use 1 Un merry propionate 6-24 } [place] in ity o f 50 00:00: each [...] both eyes [place] drops 00 daily. [facility] Branch latanoprost 2018-0 Yes 1[drp] Place 1 U nivers 0.005 % 6-23 Drop in ity of ophthalmic 00:00: both eyes [place] drops 00 daily. [facility] Branch latanoprost 2018-0 Yes 1[drp] Place 1 U nivers 0.005 % 6-23 Drop in ity of ophthalmic 00:00: both eyes [place] drops 00 daily. [facility] Branch latanoprost 2018-0 Yes 1[drp] Place 1 U nivers 0.005 % 6-23 Drop in ity of ophthalmic 00:00: both eyes [place] drops 00 daily. [facility] latanoprost 2018-0 Yes 1[drp] Place 1 U nivers 0.005 % 6-23 Drop in ity of ophthalmic 00:00: both eyes [place] drops 00 daily. [facility] latanoprost 2018-0 Yes 1[drp] Place 1 U nivers 0.005 % 6-23 Drop in ity of ophthalmic 00:00: both eyes [place] drops 00 daily. [facility] Kenalog Kenalog 2018-0 No 40mg Common (Triamcinol (Triamcinol 4-25 S pirit one) one) 00:00: - [facility] Kenalog Kenalog 2018-0 No 40mg Common (Triamcinol (Triamcinol 4-25 S pirit one) one) 00:00: - [facility] 00 [facility] Kenalog Kenalog 2018-0 No 40mg Common (Triamcinol (Triamcinol 4-25 S pirit one) one) 00:00: - [facility] 00 [facility] [place] 2018-0 No 40mg Common (Triamcinol (Triamcinol 4-25 S pirit one) one) 00:00: - [facility] 2018-0 No 40mg Common (Triamcinol (Triamcinol 4-25 S pirit one) one) 00:00: - [facility] 2018-0 No 40mg Common (Triamcinol (Triamcinol 4-25 S pirit one) one) 00:00: - [facility] [place] 2018-0 No 40mg Common (Triamcinol (Triamcinol 4-25 S pirit one) one) 00:00: - [facility] 00 [facility] predniSONE 2017-0 Yes Take 4 [facility] [...] daily Take by mouth as directed.. azithromyci 2017-0 Yes 250mg QD Take 1 [...] tablets daily until tablets run out.. azithromyci 2016- Yes 250mg QD Take 1 [...] 2 tablets daily until tablets run out.. Flonase Flonase No Flonase Furosemide Furosemide No [...] Name Observation Time Observation Value Comments Source height 2022-09-11 13:20:00 69 [in_i] [facility] weight 2022-09-11 13:20:00 284 [lb_av] [facility] bmi 2022-09-11 13:20:00 41.93 kg/m2 [facility] oximetry 2022-09-11 13:20:00 94 % [facility] Systolic blood 2022-08-13 20:06:00 158 mm[Hg] Univer sity of [facility] Diastolic blood 2022-08-13 20:06:00 100 mm[Hg] Unive rsity [facility] Heart rate 2022-08-13 20:06:00 89 /min [facility] Respiratory rate 2022-08-13 20:06:00 16 /min [facility] 2022-08-13 20:06:00 175.3 cm [facility] Body weight 2022-08-13 20:06:00 130.636 kg [facility] BMI 2022-08-13 20:06:00 42.53 kg/m2 [facility] Oxygen saturation in 2022-08-13 20:06:00 87 /min [facility] Arterial blood by [facility] Pulse oximetry Branch Systolic blood 2022-08-05 17:15:00 111 mm[Hg] Univer sity of [facility] Diastolic blood 2022-08-05 17:15:00 73 mm[Hg] Unive rsity of [facility] Heart rate 2022-08-05 17:15:00 97 /min [facility] Respiratory rate 2022-08-05 17:15:00 26 /min Univ ersity of [facility] Body height 2022-08-05 17:15:00 175.3 cm [facility] [place] [facility] Body weight 2022-08-05 17:15:00 130.636 kg [facility] [place] [facility] BMI 2022-08-05 17:15:00 42.53 kg/m2 Universi ty [facility] Oxygen saturation in 2022-08-05 17:15:00 86 /min University Arterial blood by [facility] Pulse oximetry Branch Systolic blood 2022-06-07 18:07:00 153 mm[Hg] Univer sity of pressure [facility] Diastolic blood 2022-06-07 18:07:00 97 mm[Hg] Unive rsity of [facility] Heart rate 2022-06-07 18:07:00 96 /min [facility]i ty [facility] Body temperature 2022-06-07 18:07:00 36.39 [place] [facility] Body height 2022-06-07 18:07:00 175.3 cm Universi ty of [facility] Body weight 2022-06-07 18:07:00 130.636 kg [facility] [place] [facility] BMI 2022-06-07 18:07:00 42.53 kg/m2 Universi ty of [facility] height 2022-05-07 14:40:00 69 [in_i] [facility] weight 2022-05-07 14:40:00 282 [lb_av] [facility] temperature 2022-05-07 14:40:00 98.0 [degF] [facility] bmi 2022-05-07 14:40:00 41.64 kg/m2 [facility] oximetry 2022-05-07 14:40:00 96 % [facility] respiratory rate 2022-05-07 14:40:00 16 /min [facility] blood pressure 2022-05-07 14:40:00 132 mm[Hg] Common [facility] systolic [facility] blood pressure 2022-05-07 14:40:00 86 mm[Hg] Common [facility] Procedures Procedure Date / Time Performing Clinician Source Performed [facility] PATIENT FINANCIAL 2022-11-26 20:50:29 Doctor Unassigned, No [facility] POLICY [facility] DME/SUPPLY JUSTIFICATION 2022-08-13 06:01:00 Doctor Unassigned, No [facility] XR CERVICAL SPINE 2 VW 2022-08-05 17:43:18 [facility]W RIGHT 2022-08-05 17:43:18 Enriqueta[facility]REFUSAL FOR 2022-08-05 17:20:37 Doctor Unassigned, No Un [facility] DIAGNOSIS AND TREATMENT [facility] ASSIGNMENT OF BENEFITS 2022-08-05 17:02:56 Doctor Unassigned, No [facility] XR SHOULDER 2+ VW RIGHT 2022-06-07 18:28:19 Jethro [facility] Encounters Start End Encounter Admission Attending Care Care Encounter Source Date/Time Date/Time Type Type Clinicians Facility Department ID 2022-09-03 Outpatient Howard, STLMLC STLMLC [id number] Common 14:13:02 [facility] [address] [facility] 2022-07-30 Outpatient Howard, STLMLC STLMLC [id number] Common 15:03:01 [facility] 66622 [facility] 2022-05-07 Outpatient Howard, STLMLC STLMLC [id number] Common 14:36:03 [facility] 03656 [facility] 2022-12-17 2022-12-17 Outpatient KRISTEN FORTE [facility] 1 [id number] Univers 10:00:00 10:00:[address] [facility] 2022-12-10 2022-12-10 Outpatient KRISTEN FORTE [facility] 1 [id number] Univers 14:30:00 14:30:00 KRISTEN PATRICK [facility] 2022-12-10 2022-12-10 Telephone Deana [facility] 1.2.840.114 [id number] Univers 00:00:00 00:00:00 Martin MULTISPEC 350.1.13.10 ity of IALTY 4.2.7.2.686 [facility] [id number] [facility] [place] [address] [facility] 2022-12-09 2022-12-09 [facility] 1.2.342.464 [id number] Univers 00:00:00 00:00:00 elen MULTISPEC 350.1.13.10 ity of IALTY 4.2.7.2.686 [facility] [phone] [facility] AND [address] DI[facility]ETES [facility] 2022-11-26 2022-11-26 Outpatient Pepper LEBLANC [facility] [id number] Univers 15:30:00 15:30:[address] [facility] 2022-11-26 2022-11-26 Orders Doctor THI 1.2.840.114 [id number] Univers 00:00:00 00:00:00 Only Unassigned, VIRGILIO 350.1.13.10 [facility] 4.2.7.2.686 [facility] [id number] [facility] [address] 2022-11-05 2022-11-05 Outpatient Pepper ZHAO [facility] [id number] Univers 14:00:00 14:00:[address] [facility] 2022-10-29 2022-10-29 Telephone Hillary [facility] 1.2.840.114 [id number] Univers 00:00:00 00:00:00 MEERA baker 350.1.13.10 it y of [facility] 4.2.7.2.686 [facility] [id number] [facility] PRIMARY & [address] SPECIALTY CARE 2022-10-22 2022-10-22 Outpatient Pepper LEBLANC [facility] [id number] Univers 15:00:00 15:00:[address] [facility] 2022-10-21 2022-10-21 Outpatient Pepper LEACH [facility] [id number] Univers 13:00:00 13:00:00 keisha BAKER [facility] 2022-10-17 2022-10-17 (TEL) STLC STLMLC [id number] Co mmon 00:00:00 00:00:00 [facility] 2022-10-15 2022-10-15 Outpatient R DEANA [facility] [id number] Univers 14:00:00 14:00:[address] [facility] 2022-10-15 2022-10-15 Refill [facility] [id number] Univers 00:00:00 00:00:00 Martin MULTISPEC 350.1.13.10 ity of IALTY 4.2.7.2.686 [facility] [id number] [address] [facility]ETES [facility] 2022-10-08 2022-10-08 (TEL) STLMLC STLMLC [id number] Co mmon 00:00:00 00:00:00 [facility] 2022-09-11 2022-09-11 (TEL) STLMLC STLMLC [id number] Co mmon 00:00:00 00:00:00 [facility] 2022-09-11 2022-09-11 OFFICE STLMLC STLMLC [id number] Co mmon 00:00:00 00:00:00 VISIT [facility] LEVEL 4 [facility] 2022-09-10 2022-09-10 Outpatient Pepper ZHAO [facility] [id number] Univers 16:00:00 16:00:00 [facility] 2022-09-06 2022-09-06 Telephone Hillary [facility] 1.2.840.114 [id number] Univers 00:00:00 00:00:00 ashley, MAXI 350.1.13.10 ity of [place] CARE 4.2.7.2.686 [facility] AT [phone] [address] 2022-09-06 2022-09-06 Telephone Lanny [facility] 1.2.448.757 [id number] Univers 00:00:00 00:00:00 Sheryl MULTISPEC 350.1.13.10 ity of IALTY 4.2.7.2.686 [facility] [id number] [facility] AND [place] [address] [facility] 2022-08-13 2022-08-13 Outpatient R HARMONYRAKEL [facility] [id number] Univers 14:00:00 15:50:10 ASHLEY, ity of [facility] 2022-08-13 2022-08-13 Office Sheryl Ca [facility] 1.2.840.114 [id number] Univers 14:00:00 15:50:10 Visit Enriqueta [facility] 350 .1.13.10 ity of IALTY 4.2.7.2.[address] [place] [address] [id number] [facility] [place] [address] [facility] 2022-08-13 2022-08-13 Orders Doctor NESS 1.2.840.114 [id number] Univers 00:00:00 00:00:00 Only Unassigned, VIRGILIO 350.1.13.10 ity of [place] [facility] 4.2.7.2.686 [facility] [id number] [facility] [address] 2022-08-07 2022-08-07 (TEL[facility] [id number] Co mmon 00:00:00 00:00:00 [facility] 2022-08-05 2022-08-05 [facility] 1.2.840.114 [id number] Univers 11:21:07 23:59:00 Encounter [facility] 350.1.13.10 ity of [facility] 4.2.7.[address] [place] [address] [id number] [facility] PRIMARY & [address] SPECIALTY CARE 2022-08-05 2022-08-05 Office [facility] 1.2.840.114 [id number] Univers 11:40:00 12:00:00 Visit [facility] 350.1.13.10 it y of [facility] 4.2.7.2.686 [facility] [id number] [facility] PRIMARY & [address] SPECIALTY CARE 2022-08-05 2022-08-05 [facility] [id number] Univers 11:40:00 11:40:00 keisha BAKER [facility] 2022-08-05 2022-08-05 Orders Doctor THI 1.2.840.114 [id number] Univers 00:00:00 00:00:00 Only Unassigned, VIRGILIO 350.1.13.10 ity of [place] [facility] 4.2.7.2.686 Satish as [id number] [address] 2022-07-29 2022-07-29 Out[facility] [id number] Univers 16:00:00 16:00:00 ANDREAkeisha ADAMES [facility] 2022-06-24 2022-06-24 Outpatient [facility] [id number] Univers 11:40:00 11:40:00 PRIYAADRY keisha [facility] 2022-06-07 2022-06-07 [facility] 1.2.840.114 [id number] Univers 13:11:58 23:59:00 Encounter Jethro SPECIALTY 350.1.13.10 ity [facility] 4.2.7.2.[place] [phone] Pa terrence HOOK 809 [facility] 2022-06-07 2022-06-07 Office [facility] 1.2.220.948 [id number] Univers 13:20:00 13:44:39 Visit Jethro SPECIALTY 350.1.13.10 [facility] [place].2.7.[place] [phone] Pa terrence HOOK 198 [facility] 2022-06-07 2022-06-07 [facility] [id number] Univers 13:20:00 13:44:[address] [facility] 2022-06-07 2022-06-07 [facility] [id number] Univers 13:20:00 13:44:[address] [facility] 2022-06-07 2022-06-07 Outpatient [facility] [id number] Univers 13:20:00 13:20:[address] [facility] 2022-05-30 2022-05-30 Outpatient Pepper DODGE [facility] [id number] Univers 13:10:00 13:10:[address] [facility] 2022-05-22 2022-05-22 Orders Doctor THI 1.2.840.114 [id number] Univers 00:00:00 00:00:00 Only Unassigned, VIRGILIO 350.1.13.10 ity of [place] [facility] 4.2.7.2.686 Satish as [phone] [address] 2022-05-07 2022-05-07 [facility] [id number] Co mmon 00:00:00 00:00:00 VISIT [facility] LEVEL 4 [facility] 2022-05-07 2022-05-07 (TEL) [facility] ST[facility] [id number] Co mmon 00:00:00 00:00:00 [facility] 2022-04-18 2022-04-18 Orders Doctor THI 1.2.840.114 [id number] Univers 00:00:00 00:00:00 Only Unassigned, VIRGILIO 350.1.13.10 ity of [place] [facility] 4.2.7.2.686 Satish as [id number] [address] 2021-06-15 2021-06-15 Office Christa [address] [facility] 1.2.840.114 [id number] Univers 14:04:32 15:05:28 Visit Salazar Girard 350.1.13.10 it y of [place] 4.2.7.2.686 [place] [facility] [phone] [facility] [address] 2021-06-15 2021-06-15 Outpatient CHRISTA MEANS [facility] [id number] Univers 14:30:00 14:30:[address] [facility] 2021-06-08 2021-06-08 Outpatient CHRISTA MEANS [facility] [id number] Univers 14:00:00 14:00:[address] [facility] 2021-06-04 2021-06-04 Outpatient JESSE GOMEZ [facility] [id number] Univers 13:00:00 13:00:00 ity of [facility] 2021-01-25 2021-01-25 Orders Doctor THI 1.2.840.114 [id number] 00:00:00 00:00:00 Only Unassigned, VIRGILIO 350.1.13.10 [place] [facility] 4.2.7.2.686 [id number] 009 2021-01-25 2021-01-25 Orders Doctor THI 1.2.840.114 [id number] Univers 00:00:00 00:00:00 Only Unassigned, VIRGILIO 350.1.13.10 ity of [place] [facility] 4.2.7.2.686 Satish as [phone] [address] 2021-01-15 2021-01-15 Orders Doctor THI 1.2.840.114 [id number] 00:00:00 00:00:00 Only Unassigned, VIRGILIO 350.1.13.10 [place] [facility] 4.2.7.2.686 [id number] 009 2021-01-15 2021-01-15 Orders Doctor THI 1.2.840.114 [id number] Univers 00:00:00 00:00:00 Only Unassigned, VIRGILIO 350.1.13.10 ity of [place] [facility] 4.2.7.2.686 Satish as [phone] [address] 2020-11-17 2020-11-17 Jimmy Higgins [facility] 1.2.840.114 [id number] 00:00:00 00:00:00 Management [place] ADDISON 350.1.13.10 IALTY 4.2.7.2.686 [facility] [phone] AND [facility]85 [facility] 2020-11-17 2020-11-17 Transition Molly Hernandez 1.2.840.114 [id number] 00:00:00 00:00:00 of Care Viviana Naya Chiu 350.1.13.10 [place] 4.2.7.2.686 [id number] 403 2020-11-17 2020-11-17 Transition Molly Hernandez 1.2.840.114 [id number] Univers 00:00:00 00:00:00 of Care Viviana Person Chiu 350.1.13.10 i ty of [place] [phone] [facility] [address] 2020-11-17 2020-11-17 Case [facility] 1.2.840.114 [id number] Univers 00:00:00 00:00:00 Management [facility] 350.1.13.10 ity of [facility] 4.2.7.2.[place] [phone] [facility] [place] [address] [facility] 2020-11-12 2020-11-16 [facility] Jeronimo [place]ogue 1.2.840.1 14 [id number] 18:33:00 16:20:00 Encounter Julian Gonzales 350.1.13.[address] [facility] 4.2.7.2.686 Sammie Tarango [phone] Tyler Trevizo Nithya [facility], Chu MorenoTyler Harris Krishna Moreno 2020-11-12 2020-11-16 Inpatient X [facility] [id number] Univers 18:33:00 16:20:[address] [facility] 2020-11-12 2020-11-16 [facility] Jeronimo [place] 1.2.840.1 14 [id number] Univers 18:33:00 16:20:00 Encounter Julian Gonzales 350.1.13.10 ity of [facility] 4.2.7.2.686 [place] Sammie Tarango [phone] Medical Tyler Trevizo Nithya [facility], Chu MorenoTyler Harris, Chu Moreno 2020-11-14 2020-11-14 Telephone [facility] 1.2.840.114 [id number] 00:00:00 00:00:00 MAXI baker 350.1.13.10 [facility] 4.2.7.2.686 CENTER AT [phone] VIKY 198 [facility] 2020-11-14 2020-11-14 Telephone Harmony-Zane [facility] 1.2.840.114 [id number] Univers 00:00:00 00:00:00 MAXI baker 350.1.13.10 ity of [place] CARE [place].2.7.2.[place] [phone] Pa dical VIK 198 [facility] 2020-11-13 2020-11-13 Transition Molly Verdugo 1.2.840.114 [id number] 00:00:00 00:00:00 of Care Lizbeth Chiu 350.1.13.10 [place] 4.2.7.2.686 [id number] 403 2020-11-13 2020-11-13 Transition Molly Verdugo 1.2.840.114 [id number] Univers 00:00:00 00:00:00 of Care Lizbeth Chiu 350.1.13.10 it y of [place]2.7.2.[place] [id number] [facility] [address] 2020-11-07 2020-11-11 [facility] Jeronimo Hogue [facility] 1.2.840.1 14 [id number] 06:48:00 14:50:00 Encounter Annette Conrad 350.1.13.10 [place] 4.2.7.2.686 Gita Annette [place] [id number] [id number] 2020-11-07 2020-11-11 Inpatient X GITA PAADRIANNE [facility] [id number] Univers 06:48:00 14:50:00 ANNETTE ity of [facility] 2020-11-07 2020-11-11 [facility] Jeronimo Hogue [facility] 1.2.840.1 14 [id number] Univers 06:48:00 14:50:00 Encounter Annette Conrad 350.1.13.10 ity of Jeron[place] 4.2.7.2.686 [place] [facility] [phone] [place] [address] [address] 2020-07-12 2020-07-12 [facility] 1.2.840.114 [id number] 11:56:24 23:59:00 Encounter ashley Pediatric 350.1.13.10 [place] and 4.2.7.2.686 Adult [id number] Primary 809 Care Clinic 2020-07-12 2020-07-12 Hospital HarmonyZane Carrin 1.2.840.114 [id number] [facility] 11:56:24 23:59:00 Encounter ashley Pediatric 350.1.13.10 ity of [place] and [place]2.7.2.[place] [id number] [facility] Primary [address] Care Clinic 2020-07-12 2020-07-12 Office HarmonyZane Carrin 1.2.840.114 [id number] 11:00:10 13:58:54 Visit ashley Pediatric 350.1.13.10 [place] and 4.2.7.2.686 Adult [id number] Primary [facility] Care [facility] 2020-07-12 2020-07-12 [facility] 1.2.840.114 [id number] [facility] 11:00:10 13:58:54 Visit ashley Pediatric 350.1.13.10 ity of [place] and [place]2.7.2.686 [place] Adult [phone] [facility] [address] Care Clinic 2020-07-12 2020-07-12 Outpatient R HARMONYRAKEL [facility] [id number] [facility] 11:00:00 11:00:00 ANDREAKEVINADRY ity of [place] [facility] 2020-07-03 2020-07-03 Orders Doctor NESS 1.2.840.114 [id number] 00:00:00 00:00:00 Only Unassigned, VIRGILIO 350.1.13.10 [place] [facility] 4.2.7.2.686 [id number] 009 2020-07-03 2020-07-03 Orders Doctor NESS 1.2.840.114 [id number] Univers 00:00:00 00:00:00 Only Unassigned, VIRGILIO 350.1.13.10 ity of [place] [facility] 4.2.7.2.686 Satish as [id number] [facility] [address] 2020-06-02 2020-06-02 [facility] 1.2.840.114 [id number] Univers 12:31:11 14:20:12 Visit Edilma Amador 350.1.13.10 ity of [place].2.[place] Profess[place] [id number] Pa dical nal 134 [facility] 2020-06-02 2020-06-02 [facility] [id number] Univers 13:00:00 13:00:00 EDILMA ity of [facility] 2020-06-02 2020-06-02 Orders Doctor THI 1.2.840.114 [id number] Univers 00:00:00 00:00:00 Only Unassigned, VIRGILIO 350.1.13.10 ity of [place] [facility] 4.2.7.2.686 Satish as [phone] [facility] [address] 2020-05-26 2020-05-26 [facility] [id number] Univers 10:45:00 10:45:00 EDILMA ity of [facility] 2020-05-26 2020-05-26 [facility] 1.2.840.114 [id number] Univers 08:07:24 08:37:24 hi Visit Edilma Rueda Perry 350.1.13.10 ity [facility] 4.2.7.2.[place] [phone] Pa dical nal 134 [facility] 2020-05-12 2020-05-12 Outpatient R ADUM, [facility] [id number] Univers 13:00:00 13:00:00 EDILMA ity of [facility] 2020-04-25 2020-04-25 [facility] 1.2.840.114 [id number] Univers 15:50:23 23:59:00 Encounter Edilma Rueda [place] 350.1.13.10 ity [facility] 4.2.7.2.686 [place] [phone] [facility] [address] 2020-04-25 2020-04-25 [facility] [id number] Univers 00:00:00 00:00:[address] [facility] 2020-04-25 2020-04-25 Orders Doctor THI 1.2.840.114 [id number] Univers 00:00:00 00:00:00 Only Unassigned, VIRGILIO 350.1.13.10 ity of [place] [facility] 4.2.7.2.686 Satish as [phone] [address] 2020-04-14 2020-04-14 Office [facility] 1.2.840.114 [id number] Univers 14:15:54 14:56:38 Visit Edilma Mohit Amador 350.1.13.10 ity of [place] 4.2.7.2.686 [place] [facility] [phone] [address] 2020-04-14 2020-04-14 Outpatient R [facility] [id number] Univers 13:30:00 13:30:[address] [facility] 2020-04-13 2020-04-13 Orders Doctor THI 1.2.840.114 [id number] Univers 00:00:00 00:00:00 Only Unassigned, VIRGILIO 350.1.13.10 ity of [place] [facility] 4.2.7.2.686 Satish as [phone] [address] 2019-11-01 2019-11-01 Telephone [facility] 1.2.840.114 [id number] Univers 00:00:00 00:00:00 Jethro HEALTH 350.1.13.10 it y of [place] 4.2.7.2.686 [facility] [phone] [facility] Primary & [facility] Branch Specialty Care 2019-10-28 2019-10-28 Telephone [facility] 1.2.840.114 [id number] Univers 00:00:00 00:00:00 Jethro HEALTH 350.1.13.10 it y of [place] 4.2.7.2.686 [facility] [id number] [facility] Primary & [facility] Branch Specialty Care 2019-10-26 2019-10-26 Office [facility] 1.2.840.114 [id number] Univers 14:08:12 15:44:07 Visit Jethro HEALTH 350.1.13.10 it y of [place] 4.2.7.2.686 [place] [facility] [phone] [facility] Primary & [address] Specialty Care 2019-10-07 2019-10-07 Telephone [facility] 1.2.840.114 [id number] Univers 00:00:00 00:00:00 Jethro ZAVALA 350.1.13.10 i ty of [facility] 4.[place].7.2.[place] [id number] [facility] [address] 2019-10-06 2019-10-06 Out[facility] [id number] Univers 10:39:27 23:59:00 JETHRO ity of [facility] 2019-10-06 2019-10-06 [facility] Aleida Zhao 1.2.421.298 [id number] Univers 10:39:00 23:59:00 Encounter Jethro Mendez 350.1.13.10 ity of [facility] 4.2.7.2.686 Satish as [id number] [facility] [address] 2019-10-06 2019-10-06 [facility] Aleida Zhao 1.2.261.446 [id number] [id number] Univers 09:41:27 16:32:00 Encounter Jethro Mendez 350.1.13.10 ity of [facility] 4.2.7.2.686 Satish as [id number] [facility] [address] 2019-10-06 2019-10-06 Orders Doctor THI 1.2.840.114 [id number] Univers 00:00:00 00:00:00 Only UnassignedVIRGILIO 350.1.13.10 ity of [place] [facility] 4.2.7.2.686 Satish as [id number] [facility] [address] 2019-05-28 2019-05-28 Office [facility] 1.2.840.114 [id number] Univers 13:10:51 15:03:17 Visit Nesha Perry 350.1.13.10 i ty of [place] 4.2.7.2.686 [place] [facility] [phone] Pa dical nal [address] Building Results Test [...] 0-0 (BEAKER) (test code = 413) 0.00POCT-GLUCOSE [id number] 17:50:00 Test Item Value Reference Range Interpretation Comments POC-GLUCOSE METER 118 mg/dL 70-110 H TESTED [place] [address] [facility] (test code = [facility] 1538) 936[address] POCT-GLUCOSE [id number] 11:59:00 Test Item Value Reference Range Interpretation Comments POC-GLUCOSE METER 247 mg/dL 70-110 H TESTED AT [place] [address] ([facility]) (test code = [facility] 1538) 16212 POCT-GLUCOSE [id number] 07:54:00 Test Item Value Reference Range Interpretation Comments POC-GLUCOSE METER 141 mg/dL 70-110 H TESTED AT [place] [address] ([facility]) (test code = [facility] 1538) 798[address] CBC W/PLT COUNT & AUTO [id number] 03:45:00 Test Item Value Reference Range Interpretation [...] K/ L 0.00-0.20 (test code = 417) [id number] 03:29:00 Test Item Value Reference Range Interpretation Comments MAGNESIUM (BEAKER) 1.8 mg/dL 1.6-2.6 Specimen slightly (test code = 627) hemolyzed BASIC METABOLIC [id number] 03:29:00 Test Item Value Reference Range Interpretation [...] NOT APPLICABLE FOR DIALYSIS PATIEN TS. POCT-GLUCOSE [id number] 00:05:00 Test Item Value Reference Range Interpretation Comments POC-GLUCOSE METER 117 mg/dL 70-110 H TESTED AT [facility] 6720 (BEAKER) (test code = DEANAMA Pepper [place] 1538) [address] POCT-GLUCOSE [id number] 18:17:00 Test Item Value Reference Range Interpretation Comments POC-GLUCOSE METER 141 mg/dL 70-110 H TESTED AT [facility] 6720 (BEAKER) (test code = [facility] [place] 1538) [address] CREATINE KINASE (CK), TOTAL AND [id number] 15:43:00 Test Item Value Reference Range Interpretation Comments CREATINE KINASE TOTAL (BEAKER) 31 U/L 29-200 (test code = 380) CREATINE KINASE-MB (BEAKER) (test 1.3 ng/mL 0.0-6.6 code = 750) CREATINE KINASE-MB INDEX (BEAKER) 4.2 % (test code = 395) Effective 08/09/2014: CK-MB Reference Range ChangeNew: 0.0-6.6 Previous: 0.0-4.9CK-MB Reference Range:<6.7 Normal6.7-10.0 Borderline>10.0 Abnormal BLOOD GAS, [id number] 15:26:00 Test Item Value Reference Range Interpretation [...] (test code = 1819) 35.0 % POCT-GLUCOSE [id number] 11:45:00 Test Item Value Reference Range Interpretation Comments POC-GLUCOSE METER 122 mg/dL 70-110 H TESTED AT [facility] 6720 ([facility]) (test code = [facility] 1538) [address] CREATINE KINASE (CK), TOTAL AND [id number] 10:29:00 Test Item Value Reference Range Interpretation Comments CREATINE KINASE TOTAL ([facility]) 31 U/L 29-200 (test code = 380) CREATINE KINASE-MB (AKER) (test 1.5 ng/mL 0.0-6.6 code = 750) CREATINE KINASE-MB INDEX ([facility]) 4.8 % (test code = 395) Effective 08/09/2014: CK-MB Reference Range ChangeNew: 0.0-6.6 Previous: 0.0-4.9CK-MB Reference Range:<6.7 Normal6.7-10.0 Borderline>10.0 Abnormal TROPONIN [id number] 10:29:00 Test Item Value Reference Range Interpretation Comments TROPONIN I (CAL) (test code = 397) < ng/mL 0.00-0.03 [...] failure, acidosis, acute neurological disease, and persistent tachyarrhythmia.[id number] 10:22:00 Test Item Value Reference Range Interpretation Comments PARTIAL THROMBOPLASTIN TIME 22.5 seconds 22.5-36.0 (GREGORY) (test code = 760) PROTHROMBIN TIME/[id number] 10:21:00 Test Item Value Reference Range Interpretation Comments PROTIME (CAL) (test code = 12.4 seconds 11.7-14.7 759) INR ([facility]) (test code = 370) 0.9 <=5.9 RECOMMENDED COUMADIN/WARFARIN INR THERAPY RANGESSTANDARD DOSE: 2.0 - 3.0 Includes: PROPHYLAXIS for venous thrombosis, systemic embolization; TREATMENT for venous thrombosis and/or pulmonary embolus.HIGH RISK: Target INR is 2.5-3.5 for patients with mechanical heart valves.BLOOD GAS, [id number] 10:17:00 Test Item Value Reference Range Interpretation [...] (test code = 1819) 40.0 % PLATELET [id number] 10:13:00 Test Item Value Reference Range Interpretation Comments PLATELET COUNT (BEAKER) (test 111 K/CU MM 150-430 L code = 756)
[2022-12-11 12:24] LABS: Absolute Lymphocytes (CBC) 1.5 K/uL (0.7-4.9); Lymphocytes % 16.2 % (15.3-44.8); MPV 7.6 fL (7.6-11.3); RBC Red Blood Cell Count 4.31 M/uL (3.86-4.86)
[2022-12-11 12:52] LABS: Albumin 3.2 g/dL (3.4-5.0); Bilirubin Total 0.4 mg/dL (0.2-1.0); Potassium 4.6 mEq/L (3.5-5.1); Protein, Total 6.5 g/dL (6.4-8.2); Troponin High Sensitivity 18.6 pg/mL (<58.9)
--- NOTE | 2022-12-11 13:21 | RAD REPORT ---
EXAM DESCRIPTION: Nel Single View12/11/2022 12:27 pm CLINICAL HISTORY: Shortness breath COMPARISON: September 2022 FINDINGS: Pulmonary venous congestion. The lungs appear clear of acute infiltrate. The heart is moderately enlarged
--- NOTE | 2022-12-11 15:06 | ER ---
Nurse's Notes [facility] Name: Vikki Zamudio Age: 62 yrs Sex: Female : 1960 Arrival Date: 12/11/2022 Time: 12:04 Bed 3 Private MD: Diagnosis: Acute respiratory failure with hypercapnia;Acute and chronic respiratory failure with hypoxia Presentation: 12/11 12:05 Chief complaint: EMS states: SOB x2 DAYS. Coronavirus screen: At this time, the client bp does not indicate any symptoms associated with coronavirus-19. Ebola Screen: No symptoms or risks identified at this time. Initial Sepsis Screen: Does the patient meet any 2 criteria? No. Patient's initial sepsis screen is negative. Does the patient have a suspected source of infection? No. Patient's initial sepsis screen is negative. Risk Assessment: Do you want to hurt yourself or someone else? Patient reports no desire to harm self or others. Onset of symptoms is unknown. Care prior to arrival: Oxygen administered. via a non-rebreather mask. 12:05 Method Of Arrival: EMS: [facility] ([email or web address]) EMS bp 12:05 Acuity: LIZETH 3 bp Triage Assessment: 12:05 General: Appears distressed, obese, Behavior is cooperative, appropriate for age, bp anxious. Pain: Denies pain. EENT: No deficits noted. Neuro: No deficits noted. Cardiovascular: Rhythm is sinus rhythm. Respiratory: Reports shortness of breath at rest Breath sounds with wheezes bilaterally. Onset: The symptoms/episode began/occurred at an unknown time. the patient has moderate shortness of breath. GI: No signs and/or symptoms were reported involving the gastrointestinal system. : No signs and/or symptoms were reported regarding the genitourinary system. Derm: No deficits noted. Musculoskeletal: No deficits noted. Historical: - Allergies: 12:41 No Known Allergies; bp - Home Meds: 12:41 acetazolamide 125 mg Oral tab 1 tab once daily [Active]; Albuterol Inhl [Active]; bp atorvastatin 20 mg Oral tab 1 tab once daily [Active]; famotidine 20 mg Oral tablet 2 times per day [Active]; gabapentin oral [Active]; levothyroxine 88 mcg tab 1 tab once daily [Active]; ropinirole oral [Active]; - PMHx: 12:41 CHF; Hypercarbia; Hypothyroidism; High Cholesterol; Sleep Apnea; Panic Attacks; bp Hypertension; GERD; COPD; - Immunization history:: Adult Immunizations up to date. - Social history:: Smoking status: Patient/guardian denies using tobacco. - Family history:: not pertinent. Screenin:05 [facility] ED Fall Risk Assessment (Adult) History of falling in the last 3 months, bp including since admission No falls in past 3 months (0 pts). Abuse screen: Denies threats or abuse. Denies injuries from another. Nutritional screening: No deficits noted. Tuberculosis screening: No symptoms or risk factors identified. Assessment: 12:05 General: SEE TRIAGE NOTE. bp 12:05 Cardiovascular: Capillary refill < 3 seconds Rhythm is sinus rhythm. Respiratory: kc6 Airway is patent Trachea midline Respiratory effort is even, unlabored, Respiratory pattern is symmetrical, tachypnea. 13:04 Reassessment: BIPAP 20/6, RATE 20, FIO2 35%. bp 13:05 Reassessment: Patient appears in no apparent distress at this time. No changes from kc6 previously documented assessment. Patient and/or family updated on plan of care and expected duration. Pain level reassessed. Patient is alert, oriented x 3, equal unlabored respirations, skin warm/dry/pink. 14:05 Reassessment: Patient appears in no apparent distress at this time. No changes from kc6 previously documented assessment. Patient and/or family updated on plan of care and expected duration. Pain level reassessed. Patient is alert, oriented x 3, equal unlabored respirations, skin warm/dry/pink. 15:05 Reassessment: Patient appears in no apparent distress at this time. No changes from kc6 previously documented assessment. Patient and/or family updated on plan of care and expected duration. Pain level reassessed. Patient is alert, oriented x 3, equal unlabored respirations, skin warm/dry/pink. 16:05 Reassessment: Patient appears in no apparent distress at this time. No changes from kc6 previously documented assessment. Patient and/or family updated on plan of care and expected duration. Pain level reassessed. Patient is alert, oriented x 3, equal unlabored respirations, skin warm/dry/pink. ADMIT INITIATED Patient states symptoms have improved. 17:05 Reassessment: Patient appears in no apparent distress at this time. No changes from kc6 previously documented assessment. Patient and/or family updated on plan of care and expected duration. Pain level reassessed. Patient is alert, oriented x 3, equal unlabored respirations, skin warm/dry/pink. 17:51 Reassessment: PT TO CT ON O2. kc6 18:05 Reassessment: Patient appears in no apparent distress at this time. No changes from kc6 previously documented assessment. Patient and/or family updated on plan of care and expected duration. Pain level reassessed. Patient is alert, oriented x 3, equal unlabored respirations, skin warm/dry/pink. 18:30 Reassessment: [facility] see [facility] for further charting. kc6 Vital Signs: 12:05 Pulse Ox 68% on 4 lpm NC; bp 12:15 BP 117 / 63; Pulse 74; Resp 25; Temp 98; Pulse Ox 98% ; bp 13:04 BP 110 / 54; Pulse 75; Resp 16; Pulse Ox 97% ; bp 13:52 BP 93 / 49; Pulse 61; Resp 20 S; Pulse Ox 92% on BiPAP; kc6 14:26 BP 112 / 61; Pulse 59; Resp 18 S; Pulse Ox 89% on BiPAP; kc6 15:30 BP 111 / 59; Pulse 58; Resp 23; Pulse Ox 93% ; kc6 16:30 BP 104 / 61; Pulse 61; Resp 23; Pulse Ox 92% ; kc6 17:30 BP 115 / 72; Pulse 76; Resp 22; Pulse Ox 95% ; kc6 ED Course: 12:04 Patient arrived in ED. eb 12:05 Mihai Myers MD is Attending Physician. rt 12:05 Arm band placed on. bp 12:05 Patient has correct armband on for positive identification. Bed in low position. Call bp light in reach. Side rails up X2. 12:16 Tremayne Peng, DULCE is Primary Nurse. bp 12:16 Inserted saline lock: 22 gauge in right wrist, using aseptic technique. Blood collected.bp 12:29 Chest Single View XRAY In Process Unspecified. EDMS 12:41 Triage completed. bp 15:05 Sarwat Olvera is Hospitalizing Provider. rt 17:53 CT completed. jg10 23:36 No provider procedures requiring assistance completed. Patient admitted, IV remains in ha1 place. Administered Medications: 12:23 Drug: DuoNeb Nebulize (3:1) (2.5 mg - 0.5 mg) 3 ml Route: Nebulizer; kc6 14:27 Follow up: Response: No adverse reaction kc6 Medication: 12:05 VIS not applicable for this client. bp Outcome: 15:05 Decision to Hospitalize by Provider. rt 23:36 Admitted to Tele accompanied by tech, via wheelchair, room 412, with chart, Report ha1 called to DULCE Hernandez 23:36 Condition: stable 23:39 Patient left the ED. jb4 Signatures: Dispatcher [employer] EDMS Ravi Maher RN RN jb4 Tremayne Peng RN RN bp Hetal Shetty Heidy, RN RN ha1 Zoey Ortega RN RN [email or web address] [facility] [place] Mihai Myers MD MD rt Corrections: (The following items were deleted from the chart) 18:15 16:00 Reassessment: Patient appears in no apparent distress at this time. ADMIT kc6 INITIATED Patient states symptoms have improved. kc6
--- NOTE | 2022-12-11 15:06 | EDPHYS ---
Physician Documentation [facility] Name: Vikki Zamudio Age: 62 yrs Sex: Female : 1960 Arrival Date: 12/11/2022 Time: 12:04 Bed 3 Private MD: ED Physician Mihai Myers HPI: 12/11 15:08 This 62 yrs old Female presents to ER via EMS with complaints of Breathing Difficulty. rt 15:08 Patient with history of CHF and COPD presents to the ED with dyspnea starting this rt morning. Her saturations on 4 L were reportedly 60%. Reports a chest tightness when she breathes, denies other acute complaints at this time. Symptoms are severe in severity, no other aggravating leaving factors. Historical: - Allergies: 12:41 No Known Allergies; bp - Home Meds: 12:41 acetazolamide 125 mg Oral tab 1 tab once daily [Active]; Albuterol Inhl [Active]; bp atorvastatin 20 mg Oral tab 1 tab once daily [Active]; famotidine 20 mg Oral tablet 2 times per day [Active]; gabapentin oral [Active]; levothyroxine 88 mcg tab 1 tab once daily [Active]; ropinirole oral [Active]; - PMHx: 12:41 CHF; Hypercarbia; Hypothyroidism; High Cholesterol; Sleep Apnea; Panic Attacks; bp Hypertension; GERD; COPD; - Immunization history:: Adult Immunizations up to date. - Social history:: Smoking status: Patient/guardian denies using tobacco. - Family history:: not pertinent. ROS: 15:08 Constitutional: Negative for fever, chills, and weight loss, Abdomen/GI: Negative for rt abdominal pain, nausea, vomiting, diarrhea, and constipation, MS/Extremity: Negative for injury and deformity, Skin: Negative for injury, rash, and discoloration, Neuro: Negative for headache, weakness, numbness, tingling, and seizure, Psych: Negative for depression, anxiety, suicide ideation, homicidal ideation, and hallucinations. 15:08 Cardiovascular: Positive for chest pain, Negative for edema. 15:08 Respiratory: Positive for cough, shortness of breath. Exam: 15:08 ECG was reviewed by the Attending Physician. rt 15:08 Respiratory: Moderate respiratory distress, wheezes heard in all lung bacon. 15:13 Constitutional: This is a well developed, well nourished patient who is awake, alert, rt and in no acute distress. Head/Face: Normocephalic, atraumatic. Chest/axilla: Normal chest wall appearance and motion. Nontender with no deformity. No lesions are appreciated. Cardiovascular: Regular rate and rhythm with a normal S1 and S2. No gallops, murmurs, or rubs. Normal PMI, no JVD. No pulse deficits. Abdomen/GI: Soft, non-tender, with normal bowel sounds. No distension or tympany. No guarding or rebound. No evidence of tenderness throughout. Skin: Warm, dry with normal turgor. Normal color with no rashes, no lesions, and no evidence of cellulitis. MS/ Extremity: Pulses equal, no cyanosis. Neurovascular intact. Full, normal range of motion. Neuro: Awake and alert, GCS 15, oriented to person, place, time, and situation. Cranial nerves II-XII grossly intact. Motor strength 5/5 in all extremities. Sensory grossly intact. Cerebellar exam normal. Normal gait. Psych: Awake, alert, with orientation to person, place and time. Behavior, mood, and affect are within normal limits. Vital Signs: 12:05 Pulse Ox 68% on 4 lpm NC; bp 12:15 BP 117 / 63; Pulse 74; Resp 25; Temp 98; Pulse Ox 98% ; bp 13:04 BP 110 / 54; Pulse 75; Resp 16; Pulse Ox 97% ; bp 13:52 BP 93 / 49; Pulse 61; Resp 20 S; Pulse Ox 92% on BiPAP; kc6 14:26 BP 112 / 61; Pulse 59; Resp 18 S; Pulse Ox 89% on BiPAP; kc6 15:30 BP 111 / 59; Pulse 58; Resp 23; Pulse Ox 93% ; kc6 16:30 BP 104 / 61; Pulse 61; Resp 23; Pulse Ox 92% ; kc6 17:30 BP 115 / 72; Pulse 76; Resp 22; Pulse Ox 95% ; kc6 MDM: 12:06 Patient medically screened. rt 15:13 Differential diagnosis: Pneumonia, pneumothorax, COPD, pulmonary embolism, CHF. Data rt reviewed: vital signs, nurses notes, lab test result(s), EKG, radiologic studies. Consideration of Admission/Observation Patient was admitted/placed on observation. Management of patient was discussed with the following: Hospitalist: Agrees to admit. I considered the following discharge prescriptions or medication management in the emergency department Medications were administered in the Emergency Department. See MAR. Independent interpretation of the following test(s) in the Emergency Department X-Ray: My interpretation is No consolidation seen on my interpretation of the x-ray images. Test considered but Not performed: CT: Low suspicion for PE, CT angiogram not indicated. External Records Reviewed: Inpatient record: Reviewed prior inpatient record. Care significantly affected by the following chronic conditions: Congestive Heart Failure, Chronic Obstructive Pulmonary Disease. Counseling: I had a detailed discussion with the patient and/or guardian regarding: the historical points, exam findings, and any diagnostic results supporting the discharge/admit diagnosis, lab results, radiology results, the need for further work-up and treatment in the hospital. 12/11 12:08 Order name: CBC with Diff; Complete Time: 12:44 rt 12/11 12:08 Order name: CMP; Complete Time: 12:55 rt 12/11 12:08 Order name: ABG; Complete Time: 12:55 rt 12/11 12:08 Order name: BNP; Complete Time: 12:55 rt 12/11 12:08 Order name: Troponin High Sensitivity; Complete Time: 12:55 rt 12/11 17:44 Order name: Phosphorus; Complete Time: 18:05 EDMS 12/11 17:44 Order name: Magnesium; Complete Time: 18:05 EDMS 12/11 20:44 Order name: SARS-COV-2 Antigen Rapid EDMS 12/11 12:08 Order name: Chest Single View XRAY; Complete Time: 14:50 rt 12/11 12:44 Order name: BIPAP rt 12/11 16:10 Order name: Thorax Wo Con EDMS 12/11 12:08 Order name: EKG; Complete Time: 12:09 rt 12/11 12:08 Order name: EKG - Nurse/Tech; Complete Time: 12:16 rt EC:08 Rate is 84 beats/min. Rhythm is regular, Normal Sinus Rhythm with Occasional PVCs. rt Right axis deviation noted. MT interval is normal. QRS interval is normal. QT interval is normal. Clinical impression: NSR w/ Non-specific ST/T Changes. Administered Medications: 12:23 Drug: DuoNeb Nebulize (3:1) (2.5 mg - 0.5 mg) 3 ml Route: Nebulizer; kc6 14:27 Follow up: Response: No adverse reaction kc6 Disposition: 15:51 Critical Care:. rt Disposition Summary: 12/11/22 15:05 Hospitalization Ordered Hospitalization Status: Inpatient Admission rt Provider: Sarwat Olvera rt Location: Telemetry/[facility] (Inpatient) rt Condition: Serious rt Problem: an acute exacerbation rt Symptoms: have improved rt Bed/Room Type: Standard rt Room Assignment: 412(12/11/22 22:37) cg Diagnosis - Acute respiratory failure with hypercapnia rt - Acute and chronic respiratory failure with hypoxia rt Forms: - Medication Reconciliation Form rt - SBAR form rt Critical care time excluding procedures: 15:51 Critical care time: Bedside Care: 30 minutes, Consultation: 5 minutes. Total time: 35 rt minutes Signatures: Dispatcher [employer] Belinda Calvillo RN RN cg Tremayne Peng RN RN Zoey Conley RN RN kc6 Mihai Myers MD MD rt Corrections: (The following items were deleted from the chart) 22:37 15:05 rt cg
[2022-12-11] MEDS ORDERED: ACETAMINOPHEN 325 MG TABLET PO PRN (16:10)
[2022-12-11] MEDS ORDERED: ONDANSETRON 4 MG/2 ML VIAL IV PRN (16:18)
--- NOTE | 2022-12-11 16:41 | P.HP ---
Certification for Inpatient Patient admitted to: Inpatient With expected LOS: >2 Midnights Patient will require the following post-hospital care: None Practitioner: I am a practitioner with admitting privileges, knowledge of patient current condition, hospital course, and medical plan of care. Services: Services provided to patient in accordance with Admission requirements found in Title 42 Section 412.3 of the Code of Federal Regulations Patient History Date of Service: 12/11/22 Reason for admission: SOB History of Present Illness: Patient is a 62-year-old female with a past medical history significant for GERD, COPD, CHF, hypothyroidism, HLD, GERD who presents with complaint of shortness of breath has been ongoing for the past 2 days. Patient reported that she used her bronchodilators at home but denies any improvement in symptoms. Patient reported associated signs and symptoms of cough chest tightness, fever, chills and nausea. Patient reported that she is on home O2 therapy at 3 L/min. Patient denies any other signs or symptoms. Symptoms are aggravated or relieved by nothing. Patient decided to present to the hospital due to worsening symptoms. Allergies No Known Allergies Allergy (Verified 10/19/22 22:27) Home Medications: Apixaban [Eliquis] 5 mg PO BID 10/19/22 Atorvastatin Calcium 20 mg PO BEDTIME 10/19/22 Gabapentin 100 mg PO BID 10/19/22 Levothyroxine [Synthroid*] 88 mcg PO [id number] 10/19/22 Roflumilast [Daliresp] 500 mcg PO DAILY 10/19/22 Ropinirole HCl 1 tab PO BEDTIME 10/19/22 acetaZOLAMIDE [Acetazolamide] 250 mg PO DAILY 10/19/22 clonazePAM [Clonazepam] 0.5 mg PO DAILY PRN 10/19/22 - Past Medical/Surgical History Diabetic: No -: Severe COPD, home oxygen/NIV,Pulmonary-Dr. Do -: Mild pulmonary hypertension -: Hypothyroidism -: Bipolar disorder -: Hypertension -: Chronic low back pain -: Obstructive sleep apnea -: GERD -: HLD -: GERD -: Appendectomy -: Psychosocial/ Personal History: She lives with a partner. She has 1 child. She is currently disabled. - Family History Father -: Heart disease, Hypertension, Diabetes Notes: from CHF Mother -: Heart disease, Hypertension, Diabetes Notes: from CHF Brother -: Diabetes Sister -: Heart disease, Diabetes Notes: from CHF - Social History Smoking Status: Former smoker Alcohol use: No CD- Drugs: No Caffeine use: Yes Place of Residence: Home Review of Systems General: Fever, Chills, Unremarkable Eyes: Unremarkable ENT: Unremarkable Respiratory: Cough, Shortness of Breath, Other (Chest tightness ) Cardiovascular: Unremarkable Gastrointestinal: Nausea Genitourinary: Unremarkable Musculoskeletal: Unremarkable Integumentary: Unremarkable Neurological: Unremarkable Lymphatics: Unremarkable Physical Examination - Physical Exam General: Alert, In no apparent distress, Oriented x3, Cooperative HEENT: Atraumatic, PERRLA, Mucous membr. moist/pink, EOMI, Sclerae nonicteric Neck: Supple, 2+ carotid pulse no bruit, No LAD, Without JVD or thyroid abnormality Respiratory: Diminished, Expiratory wheezes Cardiovascular: No edema, Regular rate/rhythm, Normal S1 S2 Capillary refill: <2 Seconds Gastrointestinal: Normal bowel sounds, Non-distended, No tenderness Musculoskeletal: No clubbing, No swelling, No tenderness Integumentary: No rashes, No breakdown, No significant lesion Neurological: Normal speech, Normal strength at 5/5 x4 extr, Normal tone, Normal affect Lymphatics: No axilla or inguinal lymphadenopathy - Studies Laboratory Data (last 24 hrs) 12/11/22 12:15: Sodium 138, Potassium 4.6, BUN 14, Creatinine 0.84, Glucose 150 H, Total Bilirubin 0.4, AST 9 L, ALT 13, Alkaline Phosphatase 104 12/11/22 12:15: WBC 9.10, Hgb 11.5 L, Hct 37.0, Plt Count 149 L Assessment and Plan - Plan --Acute on chronic COPD exacerbation. CT chest indicates "Mild interstitial prominence in the right more than left upper lobe, could reflect mild congestive changes or interstitial infectious or inflammatory opacities. Stable emphysematous changes". Patient on BiPAP therapy. Pulmonology consulted. Further management per lime burner. --Acute on chronic respiratory failure with hypercapnia and hypoxia. Continue BiPAP therapy and current treatment regimen. Further management per lime burner. --Acute on chronic systolic or diastolic CHF exacerbation. Continue diuresis with Lasix. Daily weight and strict I/O. -- GERD. Continue Protonix. --Hypothyroidism. Continue Synthroid. --Hyperlipidemia. Continue statin. -- Anemia of chronic disease. H&H stable. We will continue to monitor renal functions. --DVT prophylaxis with Eliquis. Discharge Plan: Home Plan to discharge in: Greater than 2 days - Advance Directives Does patient have a Living Will: No Does patient have a Durable POA for Healthcare: No - Code Status/Comfort Care Code Status Assessed: Yes Physician Review: Patient Assessed, Agree with Above Assessment and Plan Critical Care: No
[2022-12-11 17:44] LABS: Magnesium 2.2 mg/dL (1.6-2.4)
[2022-12-11 18:34] VITALS: BMI 43.4
--- NOTE | 2022-12-11 19:01 | RAD REPORT ---
EXAM DESCRIPTION: CT - Thorax Wo Con - 12/11/2022 5:52 pm CLINICAL HISTORY: SOB. COMPARISON: CT chest 10/22/2020 and 01/20/2018. Chest radiograph 12/11/2022 TECHNIQUE: Axial thin cut images of the chest were obtained without IV contrast. Multiplanar reforma ts were generated and reviewed. All CT scans are performed using dose optimization technique as appropriate and may include automated exposure control or mA/KV adjustment according to patient size. FINDINGS: Motion and beam hardening artifact somewhat limit evaluation. No mass or infiltrate in the lung parenchyma. Mild interstitial prominence in the right more than lef t upper lobe, could reflect mild congestive changes or interstitial infectious or inflammatory opacit ies. Lower lobe predominant centrilobular emphysematous changes again noted. Segmental right basilar atelectasis, stable. No pleural thickening or pleural effusion. No pneumothorax. No abnormal mediastinal or hilar masses or lymphadenopathy seen. No significant aortic or pulmonary a rtery findings. Assessment is limited in the absence of IV contrast. Stable mild cardiomegaly. No chest wall mass or abnormal axillary lymphadenopathy. Evaluation of the solid abdominal structures reveals no suspicious findings. IMPRESSION: Mild interstitial prominence in the right more than left upper lobe, could reflect mild congestive changes or interstitial infectious or inflammatory opacities. Stable emphysematous changes .
[2022-12-11] MEDS: ALBUTEROL 2.5 MG/3 ML NEB SOL NEB SCH (20:10)
[2022-12-11] MEDS: IPRATROPIUM BROM 0.5MG/2.5ML NEB SCH (20:10)
[2022-12-11 20:44] LABS: SARS-CoV-2 Antigen Rapid Res Negative (Negative)
[2022-12-11] MEDS: APIXABAN 5 MG TABLET PO SCH (21:00)
[2022-12-11] MEDS ORDERED: APIXABAN 5 MG TABLET ONE (22:39)
[2022-12-11] MEDS: TRAMADOL HCL 50 MG TAB PO PRN (22:46)
[2022-12-11] MEDS ORDERED: TRAMADOL HCL 50 MG TAB ONE (22:46)
[2022-12-12 00:22] LABS: Specific Gravity 1.027 (1.005-1.030); Urine Bacteria <20 /HPF (<20); Urine Bilirubin NEGATIVE (Negative); Urine Blood Negative (Negative); Urine Clarity Clear (Clear); Urine Color Yellow (Yellow); Urine Glucose NEGATIVE (Negative); Urine Mucus 1+ /HPF (None Seen); Urine Protein TRACE (Negative); Urine RBC <5 /HPF (None Seen); Urine Urobilinogen 1+ (Normal)
[2022-12-12] MEDS: IPRATROPIUM BROM 0.5MG/2.5ML NEB SCH ×4 (01:30→20:15)
[2022-12-12] MEDS: ALBUTEROL 2.5 MG/3 ML NEB SOL NEB SCH ×4 (01:30→20:15)
[2022-12-12 03:42] LABS: Absolute Lymphocytes (CBC) 1.5 K/uL (0.7-4.9); Hematocrit 31.7 % (36.0-45.0); Lymphocytes % 26.8 % (15.3-44.8); MCV 85.6 fL (80-100); MPV 7.9 fL (7.6-11.3)
[2022-12-12 04:05] LABS: Potassium 3.9 mEq/L (3.5-5.1)
[2022-12-12] MEDS: PANTOPRAZOLE 40MG TABLET PO SCH (06:45)
[2022-12-12] MEDS: ASPIRIN 81 MG CHEWABLE TABLET PO SCH (08:27)
[2022-12-12] MEDS: FUROSEMIDE 20 MG/ 2ML VIAL IV SCH ×2 (08:27→16:42)
[2022-12-12] MEDS: APIXABAN 5 MG TABLET PO SCH ×2 (08:27→21:46)
[2022-12-12] MEDS: TRAMADOL HCL 50 MG TAB PO PRN ×2 (08:38→21:52)
[2022-12-12] MEDS ORDERED: POTASSIUM CL SA 10 MEQ TAB PO ONE (09:00)
[2022-12-12] MEDS ORDERED: ENOXAPARIN 40 MG/0.4 ML SQ SCH (09:00)
--- NOTE | 2022-12-12 12:16 | EKG ---
Test Date: 2022-12-11 Test Time: 12:19:38 Gaming Manager: CASSI MEASUREMENT RESULTS: Intervals: Rate: 84 DE: 200 QRSD: 78 QT: 382 QTc: 451 [place]: P: 57 DE: 200 QRS: 93 T: 72 INTERPRETIVE STATEMENTS: Sinus rhythm with premature supraventricular complexes Rightward axis Cannot rule out Anterior infarct, age undetermined Abnormal ECG Compared to ECG 10/19/2022 19:50:15 Myocardial infarct finding now present Electronically Signed On 12-12-22 12:13:28 CDT by Maykel Posey
--- NOTE | 2022-12-12 14:10 | P.CNS ---
Date of Consult: 12/12/22 Reason for Consult: COPD exacerbation Chief Complaint: SOB History of Present Illness: Patient is 62 years of age well-known to me became sick over the past week started having increasing dyspnea significant desaturation minimal exertion denies any fever or chills Here in the hospital patient is compliant with her medication using her BiPAP Allergies No Known Allergies Allergy (Verified 10/19/22 22:27) Home Medications: Apixaban [Eliquis] 5 mg PO BID 10/19/22 Atorvastatin Calcium 20 mg PO BEDTIME 10/19/22 Gabapentin 100 mg PO BID 10/19/22 Levothyroxine [Synthroid*] 88 mcg PO [id number] 10/19/22 Roflumilast [Daliresp] 500 mcg PO DAILY 10/19/22 Ropinirole HCl 1 tab PO BEDTIME 10/19/22 acetaZOLAMIDE [Acetazolamide] 250 mg PO DAILY 10/19/22 clonazePAM [Clonazepam] 0.5 mg PO DAILY PRN 10/19/22 - Past Medical/Surgical History Diabetic: No -: Severe COPD, home oxygen/NIV,Pulmonary-Dr. Do -: Mild pulmonary hypertension -: Hypothyroidism -: Bipolar disorder -: Hypertension -: Chronic low back pain -: Obstructive sleep apnea -: GERD -: HLD -: GERD -: Appendectomy -: Psychosocial/ Personal History: She lives with a partner. She has 1 child. She is currently disabled. - Family History Father Medical History: Heart disease, Hypertension, Diabetes Notes: from CHF Mother Medical History: Heart disease, Hypertension, Diabetes Notes: from CHF Brother Medical History: Diabetes Sister Medical History: Heart disease, Diabetes Notes: from CHF - Social History Smoking Status: Unknown if ever smoked Alcohol use: No CD- Drugs: No Caffeine use: Yes Place of Residence: Home Review of Systems 10-point ROS is otherwise unremarkable General: Weakness Respiratory: Cough, Shortness of Breath Physical Examination Temp Pulse Resp BP Pulse Ox 97.5 F 75 18 140/64 90 L 12/12/22 12:00 12/12/22 12:00 12/12/22 12:00 12/12/22 12:00 12/12/22 12:00 General: Alert, In no apparent distress, Mild distress Respiratory: Clear to auscultation bilaterally, Diminished Cardiovascular: No edema, Regular rate/rhythm, Normal S1 S2 Gastrointestinal: Normal bowel sounds, Soft and benign Musculoskeletal: No clubbing, No contractures - Problems (1) Acute on chronic respiratory failure with hypoxia and hypercapnia Current Visit: No Status: Acute Plan: Patient is 62 years of age recurrent hospital admission terminal COPD chemotherapy at home was apparently compliant became worse and appeared in the emergency room labs reviewed has cute on chronic respiratory acidosis chest x- ray shows cardiomegaly mild interstitial changes possible evidence of volume overload have underlying diastolic dysfunction patient is mildly anemic today echocardiogram with Doppler ordered add low-dose spironolactone continue with Lasix and Diamox stable discharge tomorrow
[2022-12-12] MEDS: SPIRONOLACTONE 25 MG TABLET PO SCH ×2 (14:24→21:46)
[2022-12-12] MEDS: ALPRAZOLAM 0.25 MG TABLET PO PRN ×2 (14:24→18:24)
--- NOTE | 2022-12-12 16:20 | P.PN ---
Subjective Date of Service: 12/12/22 Chief Complaint: SOB Patient states he feels better today. She is tolerating oxygen by nasal cannula at the moment. Physical Examination - Vital Signs Temperature: 97.5 F Blood Pressure: 140/64 Pulse: 75 Respirations: 18 Pulse Ox (%): 90 Assessment And Plan - Current Problems (Diagnosis) (1) Atrial fibrillation Current Visit: No Status: Acute Qualifiers: Atrial fibrillation type: paroxysmal Qualified Code(s): I48.0 - Paroxysmal atrial fibrillation - Plan Physical Exam General: Alert, In no apparent distress, Oriented x3, morbidly obese. Neck: Supple, no elevated JVD. Respiratory: Diminished bilaterally. No rhonchi. Cardiovascular: No edema, Regular rate/rhythm, Normal S1 S2 Gastrointestinal: Normal bowel sounds, Non-distended, No tenderness Musculoskeletal: No clubbing, No swelling, No tenderness Integumentary: No rashes, No breakdown, No significant lesion Neurological: Normal speech, no focal motor deficit. Plan: Acute on chronic COPD exacerbation Continues bronchodilators, steroid. Pulmonary input appreciated. Obstructive sleep apnea/obesity hypoventilation/acute on chronic respiratory failure with hypoxia and hypercapnia Continue BiPAP as needed Supplemental oxygen, keep SPO2 between 88-92% Patient informed to bring her home BiPAP for inspection per pulmonary to make sure it is functioning well. Continue Aldactone Acute on chronic systolic or diastolic CHF exacerbation. Oral Diamox for diuresis. Monitor and optimize electrolytes. Hypothyroidism. Continue Synthroid. DVT prophylaxis: Patient is on Eliquis
[2022-12-12] MEDS ORDERED: ROPINIROLE HCL 1 MG TAB PO SCH (21:00)
[2022-12-12] MEDS: GABAPENTIN 100 MG CAP PO SCH (21:46)
[2022-12-12] MEDS ORDERED: MELATONIN 5 MG TABLET PO PRN (22:07)
[2022-12-13] MEDS: ALBUTEROL 2.5 MG/3 ML NEB SOL NEB SCH ×3 (01:40→13:00)
[2022-12-13] MEDS: IPRATROPIUM BROM 0.5MG/2.5ML NEB SCH ×3 (01:40→13:00)
[2022-12-13 05:27] LABS: Absolute Lymphocytes (CBC) 1.7 K/uL (0.7-4.9); MCV 84.3 fL (80-100); MPV 7.7 fL (7.6-11.3); RBC Red Blood Cell Count 3.91 M/uL (3.86-4.86)
[2022-12-13 05:43] LABS: Potassium 3.3 mEq/L (3.5-5.1)
[2022-12-13] MEDS ORDERED: LEVOTHYROXINE SOD 0.088 MG TAB PO SCH (06:00)
[2022-12-13] MEDS: PANTOPRAZOLE 40MG TABLET PO SCH (06:18)
[2022-12-13] MEDS: ASPIRIN 81 MG CHEWABLE TABLET PO SCH (08:26)
[2022-12-13] MEDS: APIXABAN 5 MG TABLET PO SCH (08:26)
[2022-12-13] MEDS: SPIRONOLACTONE 25 MG TABLET PO SCH (08:26)
[2022-12-13] MEDS: ALPRAZOLAM 0.25 MG TABLET PO PRN ×2 (08:26→15:20)
[2022-12-13] MEDS: GABAPENTIN 100 MG CAP PO SCH (08:26)
[2022-12-13] MEDS ORDERED: acetaZOLAMIDE 250 MG TAB PO SCH (09:00)
[2022-12-13] MEDS ORDERED: ROFLUMILAST 500 MCG TABLET PO SCH (09:00)
[2022-12-13] MEDS ORDERED: POTASSIUM CL SA 10 MEQ TAB PO ONE (09:00)
--- NOTE | 2022-12-13 10:53 | P.PN ---
Subjective Date of Service: 12/13/22 Chief Complaint: SOB Subjective: Improving (Patient is still wheezing doing a little better oxygenation satisfactory) Review of Systems General: Weakness Respiratory: Shortness of Breath Physical Examination - Vital Signs Temperature: 97.0 F Blood Pressure: 118/59 Pulse: 84 Respirations: 18 Pulse Ox (%): 90 - Physical Exam General: Alert, In no apparent distress, Oriented x3 Respiratory: Expiratory wheezes Cardiovascular: No edema, Regular rate/rhythm, Normal S1 S2 Assessment And Plan - Current Problems (Diagnosis) (1) Acute on chronic respiratory failure with hypoxia and hypercapnia Current Visit: No Status: Acute Plan: Patient is doing better plan for physical therapy oxygenation satisfactory continue with diuretics for discharge home on spironolactone and Diamox Lasix as needed for lower extremity edema vital signs stable oxygenation has improved labs reviewed mild hypokalemia patient is using BiPAP Physician Review: Patient Assessed, Agree with Above Assessment and Plan
--- NOTE | 2022-12-13 13:40 | EKG ---
Test Date: 2022-12-12 Test Time: 19:15:13 Reactor Service Operator: RADHA MEASUREMENT RESULTS: Intervals: Rate: 80 AL: 170 QRSD: 82 QT: 418 QTc: 482 [place]: P: 39 AL: 170 QRS: 86 T: 82 INTERPRETIVE STATEMENTS: Sinus rhythm with premature supraventricular complexes with frequent premature ventricular complexes Low voltage QRS Septal infarct, age undetermined Abnormal ECG Compared to ECG 12/11/2022 12:19:38 Ventricular premature complex(es) now present Low QRS voltage now present Right-axis deviation no longer present Myocardial infarct finding still present Electronically Signed On 12-13-22 13:38:27 CDT by Maykel Posey
[2022-12-13 16:27] VITALS: BP 135/81; TEMP 97.1
--- NOTE | 2022-12-13 17:01 | P.DS ---
Admission Date: 12/11/22 Discharge Date: 12/13/22 Disposition: [place] [facility] Discharge Condition: FAIR Reason for Admission: SOB - Problems (1) Atrial fibrillation Current Visit: No Status: Acute Qualifiers: Atrial fibrillation type: paroxysmal Qualified Code(s): I48.0 - Paroxysmal atrial fibrillation (2) Acute on chronic respiratory failure with hypoxia and hypercapnia Current Visit: No Status: Acute (3) Morbid obesity Current Visit: No Status: Acute (4) COPD exacerbation Onset Date: 05/30/16 Current Visit: No Status: Chronic (5) Obesity hypoventilation syndrome Current Visit: No Status: Chronic (6) Obstructive sleep apnea Current Visit: No Status: Chronic Brief History of Present Illness: Patient is a 62-year-old female with a past medical history significant for GERD, COPD, CHF, hypothyroidism, HLD, GERD who presented with complaint of shortness of breath that has been ongoing for 2 days. Patient reported that she used her bronchodilators at home but no improvement. Patient reported associated signs and symptoms of cough chest tightness, fever, chills and nausea. Patient reported that she is on home O2 therapy at 3 L/min. Chest CT done in the ED showed mild interstitial prominence in the right more than left upper lobe, could reflect mild congestive changes or interstitial infectious or inflammatory opacities. Patient was hypoxic in the ED, oxygen saturation was 68% on 4 L of oxygen by nasal cannula. Arterial blood gas showed respiratory acidosis with PCO2 up to 98. Patient was placed on BiPAP and hospitalized for further management. Hospital Course: Patient admitted to the medical floor and the following medical problems addressed Acute on chronic COPD exacerbation She was treated with bronchodilators and steroid. She was seen and evaluated by pulmonary Dr. Erenstina Reece recommended Aldactone. Obstructive sleep apnea/obesity hypoventilation/acute on chronic respiratory failure with hypoxia and hypercapnia Patient was treated with BiPAP and later transitioned to oxygen by nasal cannula. Mental status was stable after admission. She tolerated oxygen by nasal cannula. Patient ambulated to room today without hypoxia. Patient has clinically improved to baseline, seen by pulmonary today and deemed stable for discharge. Acute on chronic systolic or diastolic CHF exacerbation. She was treated briefly with IV Lasix and later started on oral Diamox per pulmonary. Patient discharged with oral Diamox Hypothyroidism. Continued Synthroid Vital Signs/Physical Exam: Temp Pulse Resp BP Pulse Ox 97.1 F 73 16 135/81 96 12/13/22 16:00 12/13/22 16:00 12/13/22 16:00 12/13/22 16:00 12/13/22 16:00 General: Alert, In no apparent distress, Oriented x3, Obese HEENT: Mucous membr. moist/pink Neck: JVD not distended Respiratory: Clear to auscultation bilaterally, Diminished Cardiovascular: Regular rate/rhythm, Normal S1 S2 Gastrointestinal: Soft and benign, Non-distended Musculoskeletal: No swelling Integumentary: No cyanosis Neurological: Normal strength at 5/5 x4 extr Laboratory Data at Discharge: WBC 6.40 thou/uL (4.3-10.9) 12/13/22 04:52 Hgb 10.5 g/dL (12.0-15.0) L 12/13/22 04:52 Hct 33.0 % (36.0-45.0) L 12/13/22 04:52 Plt Count 147 thou/uL (152-406) L D 12/13/22 04:52 Sodium 139 mEq/L (136-145) 12/13/22 04:52 Potassium 4.3 mEq/L (3.5-5.1) D 12/13/22 13:56 BUN 18 mg/dL (7-18) 12/13/22 04:52 Creatinine 0.94 mg/dL (0.55-1.02) 12/13/22 04:52 Glucose 119 mg/dL (74-106) H 12/13/22 04:52 Phosphorus 4.0 mg/dL (2.5-4.9) 12/11/22 17:11 Magnesium 2.2 mg/dL (1.6-2.4) 12/11/22 17:11 Total Bilirubin 0.4 mg/dL (0.2-1.0) 12/11/22 12:15 AST 9 U/L (15-37) L 12/11/22 12:15 ALT 13 U/L (13-56) 12/11/22 12:15 Alkaline Phosphatase 104 U/L (45-117) 12/11/22 12:15 Home Medications: Apixaban [Eliquis] 5 mg PO BID 10/19/22 Atorvastatin Calcium 20 mg PO BEDTIME 10/19/22 Gabapentin 100 mg PO BID 10/19/22 Levothyroxine [Synthroid*] 88 mcg PO [id number] 10/19/22 Roflumilast [Daliresp] 500 mcg PO DAILY 10/19/22 Ropinirole HCl 1 tab PO BEDTIME 10/19/22 acetaZOLAMIDE [Acetazolamide] 250 mg PO DAILY 10/19/22 clonazePAM [Clonazepam] 0.5 mg PO DAILY PRN 10/19/22 Pantoprazole [Protonix Tab*] 40 mg PO DAILYAC #30 tab 12/13/22 Spironolactone [Aldactone*] 25 mg PO BID #60 tab 12/13/22 predniSONE [Deltasone*] 10 mg PO DAILY #30 tab 12/13/22 New Medications: Spironolactone [Aldactone*] 25 mg PO BID #60 tab predniSONE [Deltasone*] 10 mg PO DAILY #30 tab Pantoprazole [Protonix Tab*] 40 mg PO DAILYAC #30 tab Diet: AHA Activity: Ad kristopher Followup: Isai Do MD [ACTIVE - CAN ADMIT] - (Within 2 weeks.) Billy Howard DO [Primary Care Provider] - 1-2 Weeks Time spent managing pt's care (in minutes): 32
[2022-12-13 18:33] VITALS: O2SAT 96
== END 2022-12-13 17:46 | disposition home health service (06) | DRG 189 ==
LOC: ER 12:02 → ERHOLD 16:10 → 4TH 23:06
PROVIDERS: ADMIT Internal Medicine; ATTEND Internal Medicine
PROC: 5A09457 Assistance with Respiratory Ventilation, 24-96 Consecutive Hours, Continuous Positive Airway Pressure (ICD-10-PCS; principal; 2022-12-12)
DX: J96.21 Acute and chronic respiratory failure with hypoxia (principal); I50.43 Acute on chronic combined systolic (congestive) and diastolic (congestive) heart failure; J44.1 Chronic obstructive pulmonary disease with (acute) exacerbation; Z68.41 Body mass index [BMI] 40.0-44.9, adult; E66.2 Morbid (severe) obesity with alveolar hypoventilation; J96.22 Acute and chronic respiratory failure with hypercapnia; I11.0 Hypertensive heart disease with heart failure; E03.9 Hypothyroidism, unspecified; K21.9 Gastro-esophageal reflux disease without esophagitis; D63.8 Anemia in other chronic diseases classified elsewhere; E87.6 Hypokalemia; I48.0 Paroxysmal atrial fibrillation; E78.5 Hyperlipidemia, unspecified; G89.29 Other chronic pain; M54.50 Low back pain, unspecified; Z90.49 Acquired absence of other specified parts of digestive tract; Z99.81 Dependence on supplemental oxygen; Z79.01 Long term (current) use of anticoagulants; Z79.52 Long term (current) use of systemic steroids; Z87.891 Personal history of nicotine dependence; Z79.890 Hormone replacement therapy; Z79.899 Other long term (current) drug therapy; Z20.822 Contact with and (suspected) exposure to COVID-19
CPT/HCPCS: 36415; 71045; 71250; 80048; 80053; 81001; 82805; 83735; 83880; 84100; 84132; 84484; 85025; 87811; 93005; 94640; 94660; 94760; 99285; J1940; J2405; J7613; J7644

== ENCOUNTER 2023-01-05 12:54 | Inpatient (IN) | payer OTHER ==
--- OUTSIDE RECORDS SUMMARY | 2023-01-05 13:03 | XMS REPORT | Continuity of Care Document ---
:1960 Author Organization [facility] t Address [address] [facility] [place] [address] Care Team Providers Name Role Phone Reena Moran Primary Care Physician Billy Howard Attending Clinician Unavailable MARTIN LEBLANC Attending Clinician Unavailable CLARA PATRICK Attending Clinician Unavailable CLARA PATRICK Attending Clinician Unavailable Martin Leblanc MD Attending Clinician Doctor Unassigned, Emmett Attending Clinician Unavailable JETHRO ZHAO Attending Clinician Unavailable Negra Gregory Attending Clinician [phone] [address] Attending Clinician Unavailable Sheryl Ca MD Attending Clinician Jethro Dodge MD Attending Clinician [phone] JETHRO DODGE Attending Clinician Unavailable Alex DIETRICH, Christa Lincoln Attending Clinician CHRISTA KING Attending Clinician Unavailable JESSE ARREDONDO Attending Clinician Unavailable Ronaldo DIETRICH, [place] Oates Attending Clinician David CARDONA, Viviana Person Attending Clinician Jeronimo Hogue MD Attending Clinician Christian DIETRICH, Julian Rose Attending Clinician Sammie Tarango MD Attending Clinician Jordin DIETRICH, [place] Attending Clinician Sung DIETRICH, Chu Mayer Attending Clinician [phone] CHU MARIN Attending Clinician Unavailable Lizbeth Verdugo RN Attending Clinician Annette Conrad [...] Effective Date Expiration Date S harshad FORMERLY [facility] [id number] 2012 PLUS 00:00:00 [place] [id number] 2019 [facility] 00:00:00 [facility] Problems Condition Condition Condition Status Onset Resolution Last Treating Co mments Source Name Details Category Date Date Treatment Clinician Date Acute on Acute on Disease Active Unive rs chronic chronic 2-17 [place] congest[place] dical heart heart Branch failure failure Respirator Respirator Disease Active U nivers y failure y failure 2-16 ity of 00:00: [address] Obesity Obesity Disease Active Univers (BMI (BMI 9-11 ity of 30-39.9) 30-39.9) 00:00: [address] Tobacco Tobacco Disease [facility] [address] Hypoxemia Hypoxemia Disease [facility] [address] COPD COPD Disease Recurre [facility] exacerbati exacerbati nce 6-05 Pema kes on on 00:00: [address] Acute Acute Disease Recurre [facility] hypercapni hypercapni nce 6-05 Pema kes c c 00:00: Medical respirator respirator 00 Ce nter y failure y failure Wears Wears Disease Active Univers partial partial ity of dentures dentures [facility] [id number] Severe Problem Common chronic Spirit obstructiv - [facility] e [facility] Hypertensi Hypertensi Problem C ommon on on [facility] Hypothyroi Hypothyroi Problem C ommon dism dism [facility] Counseling Tobacco Problem Comm on about abuse Spirit tobacco counseling - [facility] use [facility] Hyperlipid Hyperlipid Problem C ommon emia emia, [facility] [place] Chronic Chronic Problem Common pain pain Spirit syndrome syndrome - [facility] Bipolar Bipolar Problem Common disorder disorder [facility] [id number] Nasal Problem Common bleeding [facility] Essential Essential Problem Com mon hypertensi hypertensi Sp kiley on on - CHI [facility] [id number] History of Problem Co mmon congestive Spirit heart - CHI failure [facility] Pulmonary Pulmonary Problem Com mon hypertensi hypertensi Sp kiley on on, - [facility] Chronic Problem Common obstructiv obstructiv Sp kiley e e - CHI pulmonary pulmonary St disease [facility] unspecifie Medica l d COPD Center type [id number] Morbid Problem Common obesity Spirit - CHI [facility] [id number] On Problem Common supplement Spirit al oxygen - CHI by nasal [facility] [id number] Body mass Problem Com mon index Spirit (BMI) - CHI 40.0-44.9, [facility] [id number] CPAP Problem Common (continuou Spirit s positive - CHI airway St pressure) [facility] dependence Medica l [place] [id number] Nasal Problem Common congestion [facility] - [facility] Vaginal Vaginal Problem Common bleeding bleeding [facility] Congestive Congestive Problem C ommon heart heart Spirit disease failure, - [facility] unspecifie [facility] d HF [facility] chronicity Medica l , Center unspecifie d heart failure type [id number] Pain in Problem Comm on [id number] right Spirit shoulder - CHI [facility] [id number] VIVEK Problem Common (obstructi Spirit ve sleep - CHI apnea) [facility] [id number] Nontraumat Problem C ommon [id number] ic Spirit complete - CHI tear of [facility] rotator Medical cuff Center [id number] Abnormal Problem Comm on thyroid Spirit function - CHI test [facility] [id number] RLS Problem Common (restless Spirit legs - CHI syndrome) [facility] [id number] 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 [id number] SARS Problem Common pneumonia [facility] [id number] Other Problem Common chronic Spirit pain - [facility] Allergies, Adverse Reactions, Alerts Allergy [...] codeine Active Unknown Common Spirit - CHI [facility] Social History Social Habit Start Date Stop Date Quantity Comments Source History SDOH University o f Alcohol Frequency [place] M edical Branch History SDOR University o f Alcohol Std [place] Medical Drinks Branch History SDOR University o f Alcohol Binge [place] Medic al Branch History of Common Spirit - Tobacco Use [facility] Exposure to 2022-11-16 2022-11-26 Not sure University of SARS-CoV-2 00:00:00 14:49:00 [facility] (event) [place] Alcohol intake 2022-08-13 2022-08-13 0 /d University [...] [place] Sex Assigned At [birth year] [facility] kes 00:00:00 00:00:[address] [facility] Smoking Status Start Date Stop Date Source Ex-smoker 2022-06-07 00:00:00 2022-06-07 00:00:00 Universi ty of [facility] Medications Ordered Filled Start Stop Current Ordering Indication Dosage Frequency Signature Comments Components Source Medication Medication Date Date Medication? Clinician (SIG) Name Name gabapentin Yes [id number] 300mg Take 1 Univers 300 mg 3-07 capsule by ity of capsule 00:00: mouth in [address] Medical morning Branch and 1 capsule at noon and 1 capsule in the evening. Diclofenac Yes [id number] Apply to Univers Sodium 3-07 area(s) ity of (VOLTAREN) 00:00: daily. [place] 1 % gel [facility] gabapentin Yes [id number] 300mg Take 1 Univers 300 mg 3-07 capsule by ity of capsule 00:00: mouth in [address] morning Branch and 1 capsule at noon and 1 capsule in the evening. Diclofenac Yes [id number] Apply to Univers Sodium 3-07 area(s) ity of (VOLTAREN) 00:00: daily. [place] 1 % gel 00 [facility] gabapentin Yes [id number] 300mg Take 1 Univers 300 mg 3-07 capsule by ity of capsule 00:00: mouth in [address] Medical morning [place] and 1 capsule at noon and 1 capsule in the evening. Diclofenac Yes [id number] Apply to Univers Sodium 3-07 area(s) ity of (VOLTAREN) 00:00: daily. [place] 1 % gel [facility] Cefdinir Cefdinir 2021-09- No Cefdinir 300 MG 300 MG 2-09-21 300 MG 00:00: 00:00 00 :00 predniSONE predniSONE 2021-09- No QD predniSONE 20 MG 20 MG 2-11 09- 20 MG 00:00: 00:00 00 :00 Diclofenac 2021-09 Yes [id number] Apply to Univers Sodium 1-22 area(s) ity of (VOLTAREN) 00:00: daily. [place] 1 % gel [facility] gabapentin 2021-09 Yes [id number] 100mg Take 1 Univers 100 mg 1-22 capsule by ity of capsule 00:00: mouth in [address] morning [place] and 1 capsule in the evening. Diclofenac 2021-09 Yes [id number] Apply to Univers Sodium 1-22 area(s) ity of (VOLTAREN) 00:00: daily. [place] 1 % gel [facility] gabapentin 2021-09 Yes [id number] 100mg Take 1 Univers 100 mg 1-22 capsule by ity of capsule 00:00: mouth in [address] morning [place] and 1 capsule in the evening. Diclofenac 2021-09 Yes [id number] Apply to Univers Sodium 1-22 area(s) ity of (VOLTAREN) 00:00: daily. [place] 1 % gel [facility] gabapentin 2021-09 Yes [id number] 100mg Take 1 Univers 100 mg 1-22 capsule by ity of capsule 00:00: mouth in [address] morning [place] and 1 capsule in the evening. Diclofenac 2021-09 Yes [id number] Apply to Univers Sodium 1-22 area(s) ity of (VOLTAREN) 00:00: daily. [place] 1 % gel [facility] gabapentin 2021-09 Yes [id number] 100mg Take 1 Univers 100 mg 1-22 capsule by ity of capsule 00:00: mouth in [address] morning [place] and 1 capsule in the evening. Diclofenac 2021-09 Yes [id number] Apply to Univers Sodium 1-22 area(s) ity of (VOLTAREN) 00:00: daily. [place] 1 % gel 00 Medical Branch gabapentin 2021-09 Yes [id number] 100mg Take 1 Univers 100 mg 1-22 capsule by ity of capsule 00:00: mouth in [place] [address] the Medical morning Branch and 1 capsule in the evening. Diclofenac 2021-09 Yes [id number] Apply to Univers Sodium 1-22 area(s) ity of (VOLTAREN) 00:00: daily. [place] 1 % gel 00 Medical Branch gabapentin 2021-09 Yes [id number] 100mg Take 1 Univers 100 mg 1-22 capsule by ity of capsule 00:00: mouth in [place] [address] the Medical morning Branch and 1 capsule in the evening. Diclofenac 2021-09 Yes [id number] Apply to Univers Sodium 1-22 area(s) ity of (VOLTAREN) 00:00: daily. [place] 1 % gel Medical Branch gabapentin 2021-09 Yes [id number] 100mg Take 1 Univers 100 mg 1-22 capsule by ity of capsule 00:00: mouth in [place] [address] the Medical morning Branch and 1 capsule in the evening. Diclofenac 2021-09 Yes [id number] Apply to Univers Sodium 1-22 area(s) ity of (VOLTAREN) 00:00: daily. [place] 1 % gel Medical Branch gabapentin 2021-09 Yes [id number] 100mg Take 1 Univers 100 mg 1-22 capsule by ity of capsule 00:00: mouth in [place] [address] the Medical morning Branch and 1 capsule in the evening. triamcinolo 2021-09- No [id number] 40mg Univers ne 10-05 ity of acetonide 19:00: 18:04 [place] (KENALOG) 00 :00 Medical injection Branch 40 mg triamcinolo 2021-09- No [id number] 40mg 40 mg, Univers ne 10-05 Intramuscu ity of acetonide 19:00: 18:04 [place], ONCE, [place] (KENALOG) 00 :00 1 dose, On Medi derrick injection Mon Branch 40 mg 08/05/22 at 1300, Routine triamcinolo 2021-09- No [id number] 40mg Univers ne 1-14 11-14 ity of acetonide 19:00: 18:04 [place] (KENALOG) 00 :00 Medical injection Branch 40 mg triamcinolo 2021-09- No [id number] 40mg 40 mg, Univers ne 10-05-14 Intramuscu ity of acetonide 19:00: 18:04 [place]CE, [place] (KENALOG) 00 :00 1 dose, On Medi derrick injection Mon Branch 40 mg 08/05/22 at 1300, Routine methylPREDN 2021- No [id number] 80mg U nivers ISolone 06-07 ity of acetate 19:30: 18:38 [place] (DEPO-MEDRO 00 :00 Medical L) Branch injection 80 mg methylPREDN 2021- No [id number] 80mg 80 mg, Univers ISolone 06-07 Intramuscu ity o f acetate 19:30: 18:38 [place], ONCE, [place] (DEPO-MEDRO 00 :00 1 dose, On Me dical L) Fri Branch injection 06/07/22 at 80 mg 1430, Routine methylPREDN 2021- No [id number] 80mg U nivers ISolone 06-07 ity of acetate 19:30: 18:38 [place] (DEPO-MEDRO 00 :00 Medical L) Branch injection 80 mg methylPREDN 2021- No [id number] 80mg 80 mg, Univers ISolone 06-07 Intramuscu ity o f acetate 19:30: 18:38 [place], ONCE, [place] (DEPO-MEDRO 00 :00 1 dose, On Me dical L) Fri Branch injection 06/07/22 at 80 mg 1430, Routine Kenalog Kenalog No 40mg Common (Triamcinol (Triamcinol 7-21 S pirit one) one) 00:00: - [facility] Bupivicaine Bupivicaine 2021-0 No 2.5mg Common [place] 7-21 Spirit 00:00: - [facility] Kenalog Kenalog 2021-0 No 40mg Common (Triamcinol (Triamcinol 7-21 S pirit one) one) 00:00: - CHI [facility] Bupivicaine Bupivicaine 2021-0 No 2.5mg Common [place] 7-21 Spirit 00:00: - CHI 00 [facility] Kenalog Kenalog 2021-0 No 40mg Common (Triamcinol (Triamcinol 7-21 S pirit one) one) 00:00: - CHI 00 [facility] Bupivicaine Bupivicaine 2021-0 No 2.5mg Common [place] 7-21 Spirit 00:00: - CHI 00 [facility] Kenalog Kenalog 2021-0 No 40mg Common (Triamcinol (Triamcinol 7-21 S pirit one) one) 00:00: - CHI 00 [facility] Bupivicaine Bupivicaine 2021-0 No 2.5mg Common [place] 7-21 Spirit 00:00: - CHI 00 [facility] Kenalog Kenalog 2021-0 No 40mg Common (Triamcinol (Triamcinol 7-21 S pirit one) one) 00:00: - CHI 00 [facility] Bupivicaine Bupivicaine 2021-0 No 2.5mg Common [place] 7-21 Spirit 00:00: - CHI 00 [facility] Kenalog Kenalog 2021-0 No 40mg Common (Triamcinol (Triamcinol 7-21 S pirit one) one) 00:00: - CHI 00 [facility] Bupivicaine Bupivicaine 2021-0 No 2.5mg Common [place] 7-21 Spirit 00:00: - CHI 00 [facility] Kenalog Kenalog 2021-0 No 40mg Common (Triamcinol (Triamcinol 7-21 S pirit one) one) 00:00: - CHI 00 [facility] Bupivicaine Bupivicaine 2021-0 No 2.5mg Common [place] 7-21 Spirit 00:00: - CHI 00 [facility] Kenalog Kenalog 2021-0 No 40mg Common (Triamcinol (Triamcinol 4-27 S pirit one) one) 00:00: - CHI 00 [facility] Lidocaine Lidocaine 2-0 No 10mg Com mon - Spirit 00:00: - CHI 00 [facility] Kenalog Kenalog 2-0 No 40mg Common (Triamcinol (Triamcinol 4-27 S pirit one) one) 00:00: - CHI 00 [facility] Lidocaine Lidocaine 2-0 No 10mg Com 01-16 Spirit 00:00: - CHI 00 [facility] Kenalog Kenalog 2-0 No 40mg Common (Triamcinol (Triamcinol 4-27 S pirit one) one) 00:00: - CHI 00 [facility] Lidocaine Lidocaine 2-0 No 10mg Com 01-16 Spirit 00:00: - CHI 00 [facility] Kenalog Kenalog 2-0 No 40mg Common (Triamcinol (Triamcinol 4-27 S pirit one) one) 00:00: - CHI 00 [facility] Lidocaine Lidocaine 2-0 No 10mg Com 01-16 Spirit 00:00: - CHI [facility] Kenalog Kenalog 2-0 No 40mg Common (Triamcinol (Triamcinol 4-27 S pirit one) one) 00:00: - CHI 00 [facility] Lidocaine Lidocaine 2-0 No 10mg Com 01-16 Spirit 00:00: - CHI 00 [facility] Kenalog Kenalog 2-0 No 40mg Common (Triamcinol (Triamcinol 4-27 S pirit one) one) 00:00: - CHI [facility] Lidocaine Lidocaine 2-0 No 10mg Com 01-16 Spirit 00:00: - CHI 00 [facility] Kenalog Kenalog 2-0 No 40mg Common (Triamcinol (Triamcinol 4-27 S pirit one) one) 00:00: - CHI 00 [facility] Lidocaine Lidocaine 2-0 No 10mg Com 01-16 Spirit 00:00: - CHI 00 [facility] Lidocaine Lidocaine 2022-0 No 10mg Com 12-06 Spirit 00:00: - [facility] Kenalog Kenalog 2-0 No 40mg Common (Triamcinol (Triamcinol 3-17 S pirit one) one) 00:00: - CHI 00 [facility] Lidocaine Lidocaine 2022-0 No 10mg Com 12-06 Spirit 00:00: - [facility] Kenalog Kenalog 2021-0 No 40mg Common (Triamcinol (Triamcinol 3-17 S pirit one) one) 00:00: - CHI 00 [facility] Lidocaine Lidocaine 2021-0 No 10mg Com 12-06 Spirit 00:00: - [facility] Kenalog Kenalog 2021-0 No 40mg Common (Triamcinol (Triamcinol 3-17 S pirit one) one) 00:00: - CH[facility] Lidocaine Lidocaine 2021-0 No 10mg Com 12-06 Spirit 00:00: - [facility] Kenalog Kenalog 2021-0 No 40mg Common (Triamcinol (Triamcinol 3-17 S pirit one) one) 00:00: - [facility] Lidocaine Lidocaine 2021-0 No 10mg Com 12-06 Spirit 00:00: - [facility] Kenalog Kenalog 2021-0 No 40mg Common (Triamcinol (Triamcinol 3-17 S pirit one) one) 00:00: - [facility] Lidocaine Lidocaine 2021-0 No 10mg Com 12-06 Spirit 00:00: - [facility] Kenalog Kenalog 2021-0 No 40mg Common (Triamcinol (Triamcinol 3-17 S pirit one) one) 00:00: - [facility] Lidocaine Lidocaine 2021-0 No 10mg Com 12-06 Spirit 00:00: - [facility] Kenalog Kenalog 2021-0 No 40mg Common (Triamcinol (Triamcinol 3-17 S pirit one) one) 00:00: - [facility] carvedilol 2020-0 Yes 3.125mg Take 3.125 Univers [...] (two) Medical times Branch daily with meals. carvedilol Yes 3.125mg Take 3.125 Univers (COREG) 9-24 mg by ity of 3.125 mg 14:31: mouth 2 [place] tablet 41 (two) Medical times Branch daily with meals. carvedilol 0 Yes 3.125mg Take 3.125 Univers (COREG) 9-24 mg by ity of 3.125 mg 14:31: mouth 2 [place] tablet 41 (two) Medical times Branch daily with meals. DALIRESP Yes Univers 500 mcg 9-22 ity of tablet 00:00: 00 Medical [place] DALIRESP 0 Yes Univers 500 mcg 9-22 ity of tablet 00:00: [place] 00 [facility] 2020-0 Yes Univers 500 mcg 9-22 ity of tablet 00:00: [place] [facility] 2020-0 Yes Univers 500 mcg 9-22 ity of tablet 00:00: [place] [facility] 2020-0 Yes Univers 500 mcg 9-22 ity of tablet 00:00: [place] [facility] 2020-0 Yes Univers 500 mcg 9-22 ity of tablet 00:00: [place] [facility] 2020-0 Yes Univers 500 mcg 9-22 ity of tablet 00:00: [place] [facility] 2020-0 Yes Univers 500 mcg 9-22 ity of tablet 00:00: [address] 2020-0 Yes Univers 500 mcg 9-22 ity of tablet 00:00: [address] 2020-0 Yes Univers 500 mcg 9-22 ity of tablet 00:00: [address] 2020-0 Yes Univers 500 mcg 9-22 ity of tablet 00:00: [place] [facility] 2020-0 Yes Univers 500 mcg 9-22 ity of tablet 00:00: [address] 2020-0 Yes Univers 500 mcg 9-22 ity of tablet 00:00: [address] 2020-0 Yes Univers 500 mcg 9-22 ity of tablet 00:00: [address] 2020-0 Yes Univers 500 mcg 9-22 ity of tablet 00:00: [address] 2020-0 Yes Univers 500 mcg 9-22 ity of tablet 00:00: [address] 2020-0 Yes Univers 500 mcg 9-22 ity of tablet 00:00: [address] 2020-0 Yes Univers 500 mcg 9-22 ity of tablet 00:00: [address] predniSONE 2020-0 Yes 10mg Take 10 mg U nivers 10 mg 8-31 by mouth ity of tablet 00:00: daily. [address] predniSONE 2020-0 Yes 10mg Take 10 mg U nivers 10 mg 8-31 by mouth ity of tablet 00:00: daily. [address] predniSONE 2020-0 Yes 10mg Take 10 mg U nivers 10 mg 8-31 by mouth ity of tablet 00:00: daily. [place] Medical Branch predniSONE 0 Yes 10mg Take 10 mg U nivers 10 mg 8-31 by mouth ity of tablet 00:00: daily. [place] Medical Branch predniSONE 2020-0 2022- No 10mg Take 10 mg Univers 10 mg 8-31 11-14 by mouth ity of tablet 00:00: 00:00 daily. [place] 00 :00 Medical Branch predniSONE 2020-0 202- No 10mg Take 10 mg Univers 10 mg 8-31 11-14 by mouth ity of tablet 00:00: 00:00 daily. [place] 00 :00 Medical Branch predniSONE Yes TAKE 1 Unive rs 20 mg 8-26 TABLET BY ity of tablet 00:00: [facility] 00 TWICE Medical DAILY FOR Branch 7 DAYS THEN 1 TABLET FOR 7 DAYS predniSONE Yes TAKE 1 Unive rs 20 mg 8-26 TABLET BY ity of tablet 00:00: [facility] 00 TWICE Medical DAILY FOR Branch 7 DAYS THEN 1 TABLET FOR 7 DAYS predniSONE Yes TAKE 1 Unive rs 20 mg 8-26 TABLET BY ity of tablet 00:00: MOUTH [place] 00 TWICE Medical DAILY FOR Branch 7 DAYS THEN 1 TABLET FOR 7 DAYS predniSONE Yes TAKE 1 Unive rs 20 mg 8-26 TABLET BY ity of tablet 00:00: [facility] 00 TWICE Medical DAILY FOR Branch 7 DAYS THEN 1 TABLET FOR 7 DAYS predniSONE 2020-0 2021- No TAKE 1 Univ ers 20 mg 8-26 11-14 TABLET BY ity of tablet 00:00: 00:00 [facility] 00 :00 TWICE Medical DAILY FOR Branch 7 DAYS THEN 1 TABLET FOR 7 DAYS predniSONE 2020-0 2- No TAKE 1 Univ ers 20 mg 8-26 11-14 TABLET BY ity of tablet 00:00: 00:00 [facility] 00 :00 TWICE Medical DAILY FOR Branch 7 DAYS THEN 1 TABLET FOR 7 DAYS benzonatate Yes TAKE 1 Univ ers 100 mg 8-25 CAPSULE BY ity of capsule 00:00: MOUTH [place] 00 THREE Medical TIMES Branch DAILY NEEDED FOR COUGH fluconazole Yes 200mg Take 200 U nivers 200 mg 8-25 mg by ity of tablet 00:00: [facility] 00 every Medical morning. Branch POLY-IRON 2021-0 Yes Take by Unive rs 150 mg iron 8-25 mouth ity of capsule 00:00: daily. [place] Medical Branch LIDOCAINE 2020-0 Yes TAKE 15ML Uni vers VISCOUS 2 % 8-25 BY MOUTH ity of solution 00:00: THREE [place] TIMES Medical DAILY Branch NEEDED FOR SORE THROAT benzonatate 2020-0 Yes TAKE 1 Univ ers 100 mg 8-25 CAPSULE BY ity of capsule 00:00: MOUTH [place] THREE Medical TIMES Branch DAILY NEEDED FOR COUGH fluconazole 2020-0 Yes 200mg Take 200 U nivers 200 mg 8-25 mg by ity of tablet 00:00: mouth [place] every Medical morning. Branch POLY-IRON 2020-0 Yes Take by Unive rs 150 mg iron 8-25 mouth ity of capsule 00:00: daily. [place] Medical Branch LIDOCAINE 2020-0 Yes TAKE 15ML Uni vers VISCOUS 2 % 8-25 BY MOUTH ity of solution 00:00: THREE [place] Medical DAILY Branch NEEDED FOR SORE THROAT benzonatate 2020-0 Yes TAKE 1 Univ ers 100 mg 8-25 CAPSULE BY ity of capsule 00:00: MOUTH [place] THREE Medical TIMES Branch DAILY NEEDED FOR COUGH fluconazole 2020-0 Yes 200mg Take 200 U nivers 200 mg 8-25 mg by ity of tablet 00:00: mouth [place] every Medical morning. Branch POLY-IRON 2020-0 Yes Take by Unive rs 150 mg iron 8-25 mouth ity of capsule 00:00: daily. [place] [address] Medical Branch LIDOCAINE 2020-0 Yes TAKE 15ML Uni vers VISCOUS 2 % 8-25 BY MOUTH ity of solution 00:00: THREE [place] TIMES Medical DAILY Branch NEEDED FOR SORE THROAT benzonatate 2020-0 Yes TAKE 1 Univ ers 100 mg 8-25 CAPSULE BY ity of capsule 00:00: MOUTH [place] [address] THREE Medical TIMES Branch DAILY NEEDED FOR COUGH fluconazole 2020-0 Yes 200mg Take 200 U nivers 200 mg 8-25 mg by ity of tablet 00:00: mouth [place] [address] every Medical morning. Branch POLY-IRON 2020-0 Yes Take by Unive rs 150 mg iron 8-25 mouth ity of capsule 00:00: daily. [place] Medical Branch LIDOCAINE 2020-0 Yes TAKE 15ML Uni vers VISCOUS 2 % 8-25 BY MOUTH ity of solution 00:00: THREE [place] TIMES Medical DAILY Branch NEEDED FOR SORE THROAT benzonatate 2020-0 Yes TAKE 1 Univ ers 100 mg 8-25 CAPSULE BY ity of capsule 00:00: MOUTH [place] THREE Medical TIMES Branch DAILY NEEDED FOR COUGH fluconazole 2020-0 Yes 200mg Take 200 U nivers 200 mg 8-25 mg by ity of tablet 00:00: mouth [place] every Medical morning. Branch POLY-IRON 2020-0 Yes Take by Unive rs 150 mg iron 8-25 mouth ity of capsule 00:00: daily. [place] Medical Branch LIDOCAINE 2020-0 Yes TAKE 15ML Uni vers VISCOUS 2 % 8-25 BY MOUTH ity of solution 00:00: [place] TIMES Medical DAILY Branch NEEDED FOR SORE THROAT benzonatate 2020-0 Yes TAKE 1 [facility] ers 100 mg 8-25 CAPSULE BY ity of capsule 00:00: MOUTH [place] THREE Medical TIMES Branch DAILY NEEDED FOR COUGH fluconazole 2020-0 Yes 200mg Take 200 U nivers 200 mg 8-25 mg by ity of tablet 00:00: mouth [place] every Medical morning. Branch POLY-IRON 2020-0 Yes Take by Unive rs 150 mg iron 8-25 mouth ity of capsule 00:00: daily. [place] [facility] LIDOCAINE 2020-0 Yes TAKE 15ML Uni vers VISCOUS 2 % 8-25 BY MOUTH ity of solution 00:00: THREE [place] TIMES Medical DAILY Branch NEEDED FOR SORE THROAT benzonatate 2020-0 Yes TAKE 1 [facility] ers 100 mg 8-25 CAPSULE BY ity of capsule 00:00: MOUTH [place] THREE Medical TIMES Branch DAILY NEEDED FOR COUGH fluconazole 2020-0 Yes 200mg Take 200 U nivers 200 mg 8-25 mg by ity of tablet 00:00: [facility] every Medical morning. Branch POLY-IRON 2020-0 Yes Take by Unive rs 150 mg iron 8-25 mouth ity of capsule 00:00: daily. [place] [facility] LIDOCAINE 1-0 Yes TAKE 15ML Uni vers VISCOUS 2 % 8-25 BY MOUTH ity of solution 00:00: THREE [place] TIMES Medical DAILY Branch NEEDED FOR SORE THROAT benzonatate 2020-0 Yes TAKE 1 [facility] ers 100 mg 8-25 CAPSULE BY ity of capsule 00:00: MOUTH [place] THREE Medical TIMES Branch DAILY NEEDED FOR COUGH fluconazole 2020-0 Yes 200mg Take 200 U nivers 200 mg 8-25 mg by ity of tablet 00:00: mouth [place] every Medical morning. Branch POLY-IRON 2020-0 Yes Take by [facility] rs 150 mg iron 8-25 mouth ity of capsule 00:00: daily. [place] [facility] LIDOCAINE 2020-0 Yes TAKE 15ML Uni vers VISCOUS 2 % 8-25 BY MOUTH ity of solution 00:00: THREE [place] TIMES Medical DAILY Branch NEEDED FOR SORE THROAT benzonatate 0 Yes TAKE 1 [facility] ers 100 mg 8-25 CAPSULE BY ity of capsule 00:00: MOUTH [place] THREE Medical TIMES Branch DAILY NEEDED FOR COUGH fluconazole 2020-0 Yes 200mg Take 200 [facility] nivers 200 mg 8-25 mg by ity of tablet 00:00: mouth [place] every Medical morning. Branch POLY-IRON 2020-0 Yes Take by Un[facility] rs 150 mg iron 8-25 mouth ity of capsule 00:00: daily. [place] [facility] LIDOCAINE 2020-0 Yes TAKE 15ML Uni vers VISCOUS 2 % 8-25 BY MOUTH ity of solution 00:00: THREE [place] TIMES Medical DAILY Branch NEEDED FOR SORE THROAT benzonatate 0 Yes TAKE 1 [facility] ers 100 mg 8-25 CAPSULE BY ity of capsule 00:00: MOUTH [place] THREE Medical TIMES Branch DAILY NEEDED FOR COUGH fluconazole 2020-0 Yes 200mg Take 200 [facility] nivers 200 mg 8-25 mg by ity of tablet 00:00: mouth [place] every Medical morning. Branch POLY-IRON 2020-0 Yes Take by [facility] rs 150 mg iron 8-25 mouth ity of capsule 00:00: daily. [place] [facility] LIDOCAINE 2020-0 Yes TAKE 15ML [facility] vers VISCOUS 2 % 8-25 BY MOUTH ity of solution 00:00: THREE [place] TIMES Medical DAILY Branch NEEDED FOR SORE THROAT benzonatate 0 Yes TAKE 1 [facility] ers 100 mg 8-25 CAPSULE BY ity of capsule 00:00: MOUTH [place] THREE Medical TIMES Branch DAILY NEEDED FOR COUGH fluconazole 2020-0 Yes 200mg Take 200 [facility] nivers 200 mg 8-25 mg by ity of tablet 00:00: mouth [place] every Medical morning. Branch POLY-IRON 2020-0 Yes Take by [facility] rs 150 mg iron 8-25 mouth ity of capsule 00:00: daily. [place] [facility] LIDOCAINE 1-0 Yes TAKE 15ML Uni vers VISCOUS 2 % 8-25 BY MOUTH ity of solution 00:00: THREE [place] TIMES Medical DAILY Branch NEEDED FOR SORE THROAT benzonatate 2020-0 Yes TAKE 1 [facility] ers 100 mg 8-25 CAPSULE BY ity of capsule 00:00: MOUTH [place] THREE Medical TIMES Branch DAILY NEEDED FOR COUGH fluconazole 2020-0 Yes 200mg Take 200 U nivers 200 mg 8-25 mg by ity of tablet 00:00: mouth [place] every Medical morning. Branch POLY-IRON 2020-0 Yes Take by [facility] rs 150 mg iron 8-25 mouth ity of capsule 00:00: daily. Medical Branch LIDOCAINE 2020-0 Yes TAKE 15ML [facility] vers VISCOUS 2 % 8-25 BY MOUTH ity of solution 00:00: THREE [place] Medical DAILY Branch NEEDED FOR SORE THROAT benzonatate 2020-0 Yes TAKE 1 [facility] ers 100 mg 8-25 CAPSULE BY ity of capsule 00:00: MOUTH [place] THREE Medical TIMES Branch DAILY NEEDED FOR COUGH fluconazole 2020-0 Yes 200mg Take 200 U nivers 200 mg 8-25 mg by ity of tablet 00:00: mouth [place] every Medical morning. Branch POLY-IRON 2020-0 Yes Take by [facility] rs 150 mg iron 8-25 mouth ity of capsule 00:00: daily. [place] [facility] LIDOCAINE 2020-0 Yes TAKE 15ML [facility] vers VISCOUS 2 % 8-25 BY MOUTH ity of solution 00:00: THREE [place] TIMES Medical DAILY Branch NEEDED FOR SORE THROAT benzonatate 2020-0 Yes TAKE 1 [facility] ers 100 mg 8-25 CAPSULE BY ity of capsule 00:00: MOUTH [place] THREE Medical TIMES Branch DAILY NEEDED FOR COUGH fluconazole 2020-0 Yes 200mg Take 200 U nivers 200 mg 8-25 mg by ity of tablet 00:00: mouth [place] [id number] every Medical morning. Branch POLY-IRON 2020-0 Yes Take by Unive rs 150 mg iron 8-25 mouth ity of capsule 00:00: daily. [place] [facility] LIDOCAINE 2020-0 Yes TAKE 15ML Uni vers VISCOUS 2 % 8-25 BY MOUTH ity of solution 00:00: THREE [place] TIMES Medical DAILY Branch NEEDED FOR SORE [...] BY MOUTH ity of solution 00:00: THREE [place] 00 TIMES Medical DAILY Branch NEEDED FOR SORE THROAT LIDOCAINE Yes TAKE 15ML Uni vers VISCOUS 2 % 8-25 BY MOUTH ity of solution 00:00: THREE [place] 00 TIMES Medical DAILY Branch NEEDED FOR SORE THROAT LIDOCAINE Yes TAKE 15ML Uni vers VISCOUS 2 % 8-25 BY MOUTH ity of solution 00:00: THREE [place] TIMES Medical DAILY Branch NEEDED FOR SORE THROAT LIDOCAINE Yes TAKE 15ML Uni vers VISCOUS 2 % 8-25 BY MOUTH ity of solution 00:00: THREE [place] 00 TIMES Medical DAILY Branch NEEDED FOR SORE THROAT acetaZOLAMI Yes 250mg Take 250 U nivers DE 250 mg 7-28 mg by ity of tablet 00:00: mouth 2 [place] 00 (two) Medical times Branch daily. ELIQUIS 5 Yes 5mg Take 5 mg Uni vers mg tablet 7-28 by mouth 2 ity of 00:00: (two) [place] 00 times Medical daily. Branch docusate Yes [...] tablet 00:00: mouth 2 (two) Medical times [place] daily. ELIQUIS 5 Yes 5mg Take 5 [...] CAPSULES ity of capsule 00:00: BY MOUTH [place] 00 TWICE Medical DAILY. Branch nystatin Yes [...] [place] 00 times Medical daily. Branch docusate 2020-0 Yes TAKE 2 [facility] 100 mg 7-28 [...] MOUTH 00 TWICE Medical DAILY. Branch nystatin 2020-0 [...] [place] 00 times Medical daily. Branch docusate 2020- Yes TAKE 2 [facility] 100 mg 7-28 [...] ity o f tablet 00:00: mouth in [place] 00 the Medical morning Branch and 1 tablet in the evening. ELIQUIS 5 2020-0 Yes 5mg Take 1 Univer s mg tablet 7-28 tablet by ity o f 00:00: mouth in [place] 00 the Medical morning Branch and 1 tablet in the evening. acetaZOLAMI 0 Yes 250mg Take 1 Uni vers DE 250 mg 7-28 tablet by ity o f tablet 00:00: mouth in [place] 00 the Medical morning Branch and 1 tablet in the evening. ELIQUIS 5 2020-0 Yes 5mg Take 1 Univer s mg tablet 7-28 tablet by ity o f 00:00: mouth in [place] 00 the Medical morning Branch and 1 tablet in the evening. acetaZOLAMI 2020-0 Yes 250mg Take 1 Uni vers DE 250 mg 7-28 tablet by ity o f tablet 00:00: mouth in [place] 00 the Medical morning Branch and 1 tablet in the evening. ELIQUIS 5 2020-0 Yes 5mg Take 1 Univer s mg tablet 7-28 tablet by ity o f 00:00: mouth in [place] 00 the Medical morning Branch and 1 [...] 62.5-25 Branch mcg/actuati on inhalation disk albuterol 2021-0 Yes 2.5mg Inhale 2.5 U nivers (PROVENTIL) [...] at [place] 55 bedtime. Medical Branch clonazePAM 2021-0 Yes .5mg Take 0.5 Uni vers 0.5 [...] ity of tablet 16:35: mouth as [place] needed. Medical Branch umeclidiniu Yes Inhale. Uni [...] for Wheezing or Shortness of Breath. atorvastati 0 Yes 20mg Take 20 mg Univers n [...] Branch mcg/actuati on inhalation disk guaiFENesin Yes [id number] 100mg Take 5 mL Univers 100 mg/5 mL 2-25 by mouth ity of solution 00:00: every 4 [place] 00 (four) Medical hours as Branch needed for Cough. furosemide 0 Yes [id number] 40mg Take 2 [facility] 20 mg 2-25 tablets by ity of tablet 00:00: mouth [place] 00 daily. Medical Branch guaiFENesin Yes [id number] 100mg Take 5 mL [facility] 100 mg/5 mL 2-25 by mouth ity of solution 00:00: every 4 [place] 00 (four) Medical hours as Branch needed for Cough. furosemide 0 Yes [id number] 40mg Take 2 [facility] 20 mg 2-25 tablets by ity of tablet 00:00: mouth [place] 00 daily. Medical Branch guaiFENesin 0 Yes [id number] 100mg Take 5 mL Univers 100 mg/5 mL 2-25 by mouth ity of solution 00:00: every 4 [place] 00 (four) Medical hours as Branch needed for Cough. furosemide 2020-0 Yes [id number] 40mg Take 2 Univers 20 mg 2-25 tablets by ity of tablet 00:00: mouth [place] 00 daily. Medical Branch guaiFENesin 0 Yes [id number] 100mg Take 5 mL Univers 100 mg/5 mL 2-25 by mouth ity of solution 00:00: every 4 [place] 00 (four) Medical hours as Branch needed for Cough. furosemide 0 Yes [id number] 40mg Take 2 Univers 20 mg 2-25 tablets by ity of tablet 00:00: mouth [place] 00 daily. Medical Branch guaiFENesin 2020-0 Yes [id number] 100mg Take 5 mL Univers 100 mg/5 mL 2-25 by mouth ity of solution 00:00: every 4 [place] 00 (four) Medical hours as Branch needed for Cough. furosemide 2020-0 Yes [id number] 40mg Take 2 Univers 20 mg 2-25 tablets by ity of tablet 00:00: mouth [place] 00 daily. Medical Branch guaiFENesin 2020-0 Yes [id number] 100mg Take 5 mL Univers 100 mg/5 mL 2-25 by mouth ity of solution 00:00: every 4 [place] 00 (four) Medical hours as Branch needed for Cough. furosemide 2020-0 Yes [id number] 40mg Take 2 Univers 20 mg 2-25 tablets by ity of tablet 00:00: mouth [place] 00 daily. Medical Branch guaiFENesin 2020-0 Yes [id number] 100mg Take 5 mL Univers 100 mg/5 mL 2-25 by mouth ity of solution 00:00: every 4 [place] 00 (four) Medical hours as Branch needed for Cough. furosemide 2020-0 Yes [id number] 40mg Take 2 Univers 20 mg 2-25 tablets by ity of tablet 00:00: mouth [place] 00 daily. Medical Branch guaiFENesin 2020-0 Yes [id number] 100mg Take 5 mL Univers 100 mg/5 mL 2-25 by mouth ity of solution 00:00: every 4 [place] 00 (four) Medical hours as Branch needed for Cough. furosemide 2020-0 Yes [id number] 40mg Take 2 [facility] 20 mg 2-25 tablets by ity of tablet 00:00: mouth [place] 00 daily. Medical Branch guaiFENesin 2020-0 Yes [id number] 100mg Take 5 mL Univers 100 mg/5 mL 2-25 by mouth ity of solution 00:00: every 4 [place] 00 (four) Medical hours as Branch needed for Cough. furosemide 1-0 Yes [id number] 40mg Take 2 Univers 20 mg 2-25 tablets by ity of tablet 00:00: mouth [place] 00 daily. Medical Branch guaiFENesin 2020-0 Yes [id number] 100mg Take 5 mL Univers 100 mg/5 mL 2-25 by mouth ity of solution 00:00: every 4 [place] 00 (four) Medical hours as Branch needed for Cough. furosemide 2020-0 Yes [id number] 40mg Take 2 Univers 20 mg 2-25 tablets by ity of tablet 00:00: mouth [place] 00 daily. Medical Branch guaiFENesin 2020-0 Yes [id number] 100mg Take 5 mL Univers 100 mg/5 mL 2-25 by mouth ity of solution 00:00: every 4 [place] 00 (four) Medical hours as Branch needed for Cough. furosemide 2020-0 Yes [id number] 40mg Take 2 Univers 20 mg 2-25 tablets by ity of tablet 00:00: mouth [place] 00 daily. Medical Branch guaiFENesin 2020-0 Yes [id number] 100mg Take 5 mL Univers 100 mg/5 mL 2-25 by mouth ity of solution 00:00: every 4 [place] 00 (four) Medical hours as Branch needed for Cough. furosemide 2020-0 Yes [id number] 40mg Take 2 [facility] 20 mg 2-25 tablets by ity of tablet 00:00: mouth [place] 00 daily. Medical Branch guaiFENesin 2020-0 Yes [id number] 100mg Take 5 mL Univers 100 mg/5 mL 2-25 by mouth ity of solution 00:00: every 4 [place] 00 (four) Medical hours as Branch needed for Cough. furosemide 2020-0 Yes [id number] 40mg Take 2 [facility] 20 mg 2-25 tablets by ity of tablet 00:00: mouth [place] 00 daily. Medical Branch guaiFENesin 2020-0 Yes [id number] 100mg Take 5 mL Univers 100 mg/5 mL 2-25 by mouth ity of solution 00:00: every 4 [place] 00 (four) Medical hours as Branch needed for Cough. furosemide 2020-0 Yes [id number] 40mg Take 2 [facility] 20 mg 2-25 tablets by ity of tablet 00:00: mouth [place] 00 daily. Medical Branch guaiFENesin 1-0 Yes [id number] 100mg Take 5 mL Univers 100 mg/5 mL 2-25 by mouth ity of solution 00:00: every 4 [place] 00 (four) Medical hours as Branch needed for Cough. furosemide 2020-0 Yes [id number] 40mg Take 2 [facility] 20 mg 2-25 tablets by ity of tablet 00:00: mouth [place] 00 daily. Medical Branch furosemide 2021-0 Yes [id number] 40mg Take 2 Univers 20 mg 2-25 tablets by ity of tablet 00:00: mouth [place] 00 daily. Medical Branch furosemide 2020-0 Yes [id number] 40mg Take 2 Univers 20 mg 2-25 tablets by ity of tablet 00:00: mouth [place] 00 daily. Medical Branch furosemide 2020-0 Yes [id number] 40mg Take 2 Univers 20 mg 2-25 [...] of tablet 00:00: mouth daily. Medical Branch melatonin 3 2020-0 Yes 6mg Take 2 Univ ers mg tablet 2-20 tablets by ity of 00:00: mouth at [place] bedtime. Medical Branch melatonin 3 2020-0 Yes 6mg Take 2 Univ ers mg tablet 2-20 tablets by ity of 00:00: mouth at [place] bedtime. Medical Branch gabapentin 2020-0 Yes 300mg Take 1 [facility] ers 300 mg 2-20 capsule by ity of capsule 00:00: mouth 2 (two) Medical times Branch daily. melatonin 3 2020-0 Yes 6mg Take 2 [facility] ers mg tablet 2-20 tablets by ity of 00:00: mouth at [place] bedtime. Medical Branch gabapentin 2020-0 Yes 300mg Take 1 [facility] ers 300 mg 2-20 capsule by ity of capsule 00:00: mouth 2 (two) Medical times Branch daily. melatonin 3 2020-0 Yes 6mg Take 2 [facility] ers mg tablet 2-20 tablets by ity of 00:00: mouth at [place] bedtime. Medical Branch gabapentin 1-0 Yes 300mg Take 1 [facility] ers 300 mg 2-20 capsule by ity of capsule 00:00: mouth 2 (two) Medical times Branch daily. melatonin 3 2020-0 Yes 6mg Take 2 [facility] ers mg tablet 2-20 tablets by ity of 00:00: mouth at [place] [address] bedtime. Medical Branch gabapentin 2021-0 Yes 300mg Take 1 [facility] ers 300 mg 2-20 capsule by ity of capsule 00:00: mouth 2 () Medical times Branch daily. melatonin 3 2020-0 Yes 6mg Take 2 [facility] ers mg tablet 2-20 tablets by ity of 00:00: mouth at [place] bedtime. Medical Branch gabapentin 2021-0 Yes 300mg Take 1 [facility] ers 300 mg 2-20 capsule by ity of capsule 00:00: mouth 2 () Medical times Branch daily. melatonin 3 1-0 Yes 6mg Take 2 [facility] ers mg tablet 2-20 tablets by ity of 00:00: mouth at [place] bedtime. Medical Branch gabapentin 2020-0 Yes 300mg Take 1 [facility] ers 300 mg 2-20 capsule by ity of capsule 00:00: mouth 2 () Medical times Branch daily. melatonin 3 2020-0 Yes 6mg Take 2 [facility] ers mg tablet 2-20 tablets by ity of 00:00: mouth at [place] [address] bedtime. Medical Branch gabapentin 2020-0 Yes 300mg Take 1 [facility] ers 300 mg 2-20 capsule by ity of capsule 00:00: mouth 2 [place] ([facility]) Medical times Branch daily. melatonin 3 2020-0 Yes 6mg Take 2 [facility] ers mg tablet 2-20 tablets by ity of 00:00: mouth at [place] [address] bedtime. Medical Branch gabapentin 2020-0 Yes 300mg Take 1 [facility] ers 300 mg 2-20 capsule by ity of capsule 00:00: mouth 2 [place] ([facility]) Medical times Branch daily. melatonin 3 2020-0 Yes 6mg Take 2 [facility] ers mg tablet 2-20 tablets by ity of 00:00: mouth at [place] [address] bedtime. Medical Branch gabapentin 2021-0 Yes 300mg Take 1 [facility] ers 300 mg 2-20 capsule by ity of capsule 00:00: mouth 2 (two) Medical times Branch daily. melatonin 3 1-0 Yes 6mg Take 2 [facility] ers mg tablet 2-20 tablets by ity of 00:00: mouth at [place] bedtime. Medical Branch gabapentin 2021-0 Yes 300mg Take 1 [facility] ers 300 mg 2-20 capsule by ity of capsule 00:00: mouth 2 [place] (two) Medical times Branch daily. melatonin 3 1-0 Yes 6mg Take 2 [facility] ers mg tablet 2-20 tablets by ity of 00:00: mouth at [place] [address] bedtime. Medical Branch gabapentin 2021-0 Yes 300mg Take 1 [facility] ers 300 mg 2-20 capsule by ity of capsule 00:00: mouth 2 [place] (two) Medical times Branch daily. melatonin 3 2021-0 Yes 6mg Take 2 [facility] ers mg tablet 2-20 tablets by ity of 00:00: mouth at [place] bedtime. Medical Branch gabapentin 2021-0 Yes 300mg Take 1 [facility] ers 300 mg 2-20 capsule by ity of capsule 00:00: mouth 2 [place] (two) Medical times Branch daily. melatonin 3 2021-0 Yes 6mg Take 2 [facility] ers mg tablet 2-20 tablets by ity of 00:00: mouth at [place] bedtime. Medical Branch gabapentin 2021-0 Yes 300mg Take 1 [facility] ers 300 mg 2-20 capsule by ity of capsule 00:00: mouth 2 [place] (two) Medical times Branch daily. melatonin 3 1-0 Yes 6mg Take 2 [facility] ers mg tablet 2-20 tablets by ity of 00:00: mouth at [place] [address] bedtime. Medical Branch gabapentin 2021-0 Yes 300mg Take 1 [facility] ers 300 mg 2-20 capsule by ity of capsule 00:00: mouth 2 [place] (two) Medical times Branch daily. melatonin 3 2020-0 Yes 6mg Take 2 [facility] ers mg tablet 2-20 tablets by ity of 00:00: mouth at [place] bedtime. Medical Branch gabapentin 2021-0 Yes 300mg Take 1 [facility] ers 300 mg 2-20 capsule by ity of capsule 00:00: mouth 2 [place] (two) Medical times Branch daily. melatonin 3 2020-0 Yes 6mg Take 2 Univ ers mg tablet 2-20 tablets by ity of 00:00: mouth at [place] [address] bedtime. Medical Branch melatonin 3 2020-0 Yes 6mg Take 2 Univ ers mg tablet 2-20 tablets by ity of 00:00: mouth at [place] [address] bedtime. Medical Branch fluticasone 2019-0 Yes 1{spray Use 1 Un merry propionate 6-24 } [place] in ity o f 50 00:00: each [place] mcg/actuati 00 nostril Medic al on nasal daily. Branch spray fluticasone Yes 1{spray Use 1 Un merry propionate 6-24 } [place] in ity o f 50 00:00: each [place] mcg/actuati 00 nostril Medic al on nasal daily. Branch spray fluticasone 2019-0 Yes 1{spray Use 1 Un merry propionate 6-24 } [place] in ity o f 50 00:00: each [place] mcg/actuati 00 nostril Medic al on nasal daily. Branch spray fluticasone 2019-0 Yes 1{spray Use 1 Un merry propionate 6-24 } [place] in ity o f 50 00:00: each [place] mcg/actuati 00 nostril Medic al on nasal daily. Branch spray fluticasone 2019-0 Yes 1{spray Use 1 Un merry propionate 6-24 } [place] in ity o f 50 00:00: each [place] mcg/actuati 00 nostril Medic al on nasal daily. Branch spray fluticasone 2019-0 Yes 1{spray Use 1 Un merry propionate 6-24 } [place] in ity o f 50 00:00: each [place] mcg/actuati 00 nostril Medic al on nasal daily. Branch spray fluticasone 2018-0 Yes 1{spray Use 1 Un merry propionate 6-24 } [place] in ity o f 50 00:00: each [place] mcg/actuati 00 nostril Medic al on nasal daily. Branch spray fluticasone 2019-0 Yes 1{spray Use 1 Un merry propionate 6-24 } [place] in ity o f 50 00:00: each [place] mcg/actuati 00 nostril Medic al on nasal daily. Branch spray fluticasone 2019-0 Yes 1{spray Use 1 Un merry propionate 6-24 } [place] in ity o f 50 00:00: each [place] mcg/actuati 00 nostril Medic al on nasal daily. Branch spray fluticasone 2019-0 Yes 1{spray Use 1 Un merry propionate 6-24 } [place] in ity o f 50 00:00: each [place] mcg/actuati 00 nostril Medic al on nasal daily. Branch spray fluticasone 2019-0 Yes 1{spray Use 1 Un merry propionate 6-24 } [place] in ity o f 50 00:00: each [place] mcg/actuati 00 nostril Medic al on nasal daily. Branch spray fluticasone 2019-0 Yes 1{spray Use 1 Un merry propionate 6-24 } [place] in ity o f 50 00:00: each [place] mcg/actuati 00 nostril Medic al on nasal daily. Branch spray fluticasone 2018-0 Yes 1{spray Use 1 Un merry propionate 6-24 } [place] in ity o f 50 00:00: each [place] mcg/actuati 00 nostril Medic al on nasal daily. Branch spray fluticasone 2018-0 Yes 1{spray Use 1 Un merry propionate 6-24 } [place] in ity o f 50 00:00: each [place] mcg/actuati 00 nostril Medic al on nasal daily. Branch spray fluticasone 2018-0 Yes 1{spray Use 1 Un merry propionate 6-24 } [place] in ity o f 50 00:00: each [place] mcg/actuati 00 nostril Medic al on nasal daily. Branch spray fluticasone 2018-0 Yes 1{spray Use 1 Un merry propionate 6-24 } [place] in ity o f 50 00:00: each [place] mcg/actuati 00 nostril Medic al on nasal daily. Branch spray fluticasone 2018-0 Yes 1{spray Use 1 Un merry propionate 6-24 } [place] in ity o f 50 00:00: each [place] mcg/actuati 00 nostril Medic al on nasal daily. Branch spray fluticasone 2018-0 Yes 1{spray Use 1 Un merry propionate 6-24 } [place] in ity o f 50 00:00: each [place] mcg/actuati 00 nostril Medic al on nasal daily. Branch spray latanoprost 0 Yes 1[drp] Place 1 U [...] [place] 00 daily. Medical Branch latanoprost 0 Yes 1[drp] Place 1 U nivers 0.005 % 6-23 Drop in ity of ophthalmic 00:00: both eyes [place] drops 00 daily. Medical Branch latanoprost 0 Yes 1[drp] Place 1 [...] [place] drops 00 daily. Medical Branch latanoprost 0 Yes 1[drp] Place 1 U nivers 0.005 % 6-23 Drop in ity of ophthalmic 00:00: both eyes [place] drops 00 daily. Medical Branch latanoprost 0 Yes 1[drp] Place 1 U nivers 0.005 % 6-23 Drop in ity of ophthalmic 00:00: both eyes [place] drops 00 daily. Medical Branch latanoprost 0 Yes 1[drp] Place 1 U nivers 0.005 % 6-23 Drop in ity of ophthalmic 00:00: both eyes [place] drops 00 daily. Medical Branch latanoprost 0 Yes 1[drp] Place 1 U nivers 0.005 % 6-23 Drop in ity of ophthalmic 00:00: both eyes [place] drops 00 daily. Medical Branch latanoprost 0 Yes 1[drp] Place 1 U nivers 0.005 % 6-23 Drop in ity of ophthalmic 00:00: both eyes [place] drops 00 daily. Medical Branch latanoprost 0 Yes 1[drp] Place 1 U nivers 0.005 % 6-23 Drop in ity of ophthalmic 00:00: both eyes [place] drops 00 daily. Medical Branch latanoprost 2018- Yes 1[drp] Place 1 U nivers 0.005 % 6-23 Drop in ity of ophthalmic 00:00: both eyes [place] drops 00 daily. Medical Branch latanoprost 2018- Yes 1[drp] Place 1 U nivers 0.005 % 6-23 Drop in ity of ophthalmic 00:00: both eyes [place] drops 00 daily. Medical Branch latanoprost 2018- Yes 1[drp] Place 1 U nivers 0.005 % 6-23 Drop in ity of ophthalmic 00:00: [place] eyes [place] drops 00 daily. [facility] Branch Kenalog Kenalog 2018-0 No 40mg Common (Triamcinol (Triamcinol 4-25 S pirit one) one) 00:00: - [facility] 00 [facility] Kenalog Kenalog 2018-0 No 40mg Common (Triamcinol (Triamcinol 4-25 S pirit one) one) 00:00: - [facility] 00 [facility] Kenalog Kenalog 2018-0 No 40mg Common (Triamcinol (Triamcinol 4-25 S pirit one) one) 00:00: - [facility] 00 [facility] Kenalog Kenalog 2018-0 No 40mg Common (Triamcinol (Triamcinol 4-25 S pirit one) one) 00:00: - [facility] 00 [facility] Kenalog Kenalog 2018-0 No 40mg Common (Triamcinol (Triamcinol 4-25 S pirit one) one) 00:00: - [facility] 00 [facility] Kenalog Kenalog 2018-0 No 40mg Common (Triamcinol (Triamcinol 4-25 S pirit one) one) 00:00: - [facility] 00 [facility] Kenalog Kenalog 2018-0 No 40mg Common (Triamcinol (Triamcinol 4-25 S pirit one) one) 00:00: - [facility] 00 [facility] predniSONE 2017-0 Yes Take 4 [facility] [...] daily Take by mouth as directed.. predniSONE 2016-0 Yes Take 4 [facility] (DELTASONE) [...] daily Take by mouth as directed.. predniSONE 2016-0 Yes Take 4 [facility] (DELTASONE) [...] Comments Source height 2022-09-11 13:20:00 69 [in_i] [facility] weight 2022-09-11 13:20:00 284 [lb_av] [facility] bmi 2022-09-11 13:20:00 41.93 kg/m2 [facility] oximetry 2022-09-11 13:20:00 94 % [facility] Systolic blood 2022-08-13 20:06:00 158 mm[Hg] [facility] Diastolic blood 2022-08-13 20:06:00 100 mm[Hg] Unive rs[facility] Heart rate 2022-08-13 20:06:00 89 /min [facility] ty [facility] Respiratory rate 2022-08-13 20:06:00 16 /[facility] 2022-08-13 20:06:00 175.3 cm Universi ty [facility] Body weight 2022-08-13 20:06:00 130.636 kg Universi ty [facility] BMI 2022-08-13 20:06:00 42.53 kg/m2 Universi ty [facility] Oxygen saturation in 2022-08-13 20:06:00 87 /min [facility] Arterial blood by [facility] Pulse oximetry Branch Systolic blood 2022-08-05 17:15:00 111 mm[Hg] [facility]iver [facility] Diastolic blood 2022-08-05 17:15:00 73 mm[Hg] [facility]ive [facility] Heart rate 2022-08-05 17:15:00 97 /min Universi ty [facility] Respiratory rate 2022-08-05 17:15:00 26 /[facility] height 2022-08-05 17:15:00 175.3 cm [facility] Body weight 2022-08-05 17:15:00 130.636 kg [facility] BMI 2022-08-05 17:15:00 42.53 kg/m2 [facility] Oxygen saturation in 2022-08-05 17:15:00 86 /min [facility] Arterial blood by [facility] Pulse oximetry Branch Systolic blood 2022-06-07 18:07:00 153 mm[Hg] Univer sity of pressure [facility] Diastolic blood 2022-06-07 18:07:00 97 mm[Hg] Unive rsity of [facility] Heart rate 2022-06-07 18:07:00 96 /min [facility] Body temperature 2022-06-07 18:07:00 36.39 Sapna Univ ersity of [facility] Body height 2022-06-07 18:07:00 175.3 cm [facility] Body weight 2022-06-07 18:07:00 130.636 kg [facility] BMI 2022-06-07 18:07:00 42.53 kg/m2 [facility] height 2022-05-07 14:40:00 69 [in_i] [facility] weight 2022-05-07 14:40:00 282 [lb_av] [facility] temperature 2022-05-07 14:40:00 98.0 [degF] [facility] bmi 2022-05-07 14:40:00 41.64 kg/m2 [facility] oximetry 2022-05-07 14:40:00 96 % [facility] respiratory rate 2022-05-07 14:40:00 16 /min [facility] blood pressure 2022-05-07 14:40:00 132 mm[Hg] [facility] blood pressure 2022-05-07 14:40:00 86 mm[Hg] [facility] diastolic [facility] Procedures Procedure Date / Time Performing Clinician Source Performed [facility] PATIENT FINANCIAL 2022-11-26 20:50:29 Doctor Unassigned, No [facility] POLICY [facility] DME/SUPPLY JUSTIFICATION 2022-08-13 06:01:00 Doctor Unassigned, No [facility] XR CERVICAL SPINE 2 VW 2022-08-05 17:43:18 Enriqueta, [facility] [place]R SHOULDER 2+ VW RIGHT 2022-08-05 17:43:18 Enriqueta, U [facility] [place] CONSENT/REFUSAL FOR 2022-08-05 17:20:37 Doctor Unassigned, No [facility] ASSIGNMENT OF BENEFITS 2022-08-05 17:02:56 Doctor Unassigned, No [facility] XR SHOULDER 2+ VW RIGHT 2022-06-07 18:28:19 Jethro [facility] Encounters Start End Encounter Admission Attending Care Care Encounter Source Date/Time Date/Time Type Type Clinicians Facility Department ID 2022-09-03 [facility] [id number] Common 14:13:02 [facility] 04013 [facility] 2022-07-30 Outpatient Howard, STLMLC STLC [id number] Common 15:03:01 Billy 76015 [facility] 2022-05-07 Outpatient Howard, STLMLC STLMLC [id number] Common 14:36:03 [facility] 2022-12-17 2022-12-17 Outpatient CLARA FORTE [facility] [id number] [facility] 10:00:00 10:00:00 CLARA PATRICK itchiki [facility] 2022-12-11 2022-12-11 Telephone Som [facility] [id number] [facility] 00:00:00 00:00:00 Clara MULTISPEC 350.1.13.10 ity [facility] 4.2.7.2.686 [facility] [id number] [address] DI[facility]ETES [facility]IC 2022-12-10 2022-12-10 Outpatient CLARA FORTE [facility] [id number] Univers 14:30:00 14:30:00 SOMCLARA ity [facility] 2022-12-10 2022-12-10 Telephone Pop [facility] 1.2.840.114 [id number] Univers 00:00:00 00:00:00 Martin ADDISON 350.1.13.10 ity of [place] 4.2.7.2.[address] [place] [id number] [facility] AND [address] DIABETES CLINIC 2022-12-09 2022-12-09 [facility] [id number] Univers 00:00:00 00:00:00 [facility] 350.1.13.10 ity of IALTY .2.7.2.[address] [place] [id number] [facility] AND [address] DIABETES [facility]INIC 2022-11-26 2022-11-26 Outpatient Pepper LEBLANC [facility] [id number] Univers 15:30:00 15:30:00 MARTIN hernandezy [facility] 2022-11-26 2022-11-26 Orders Doctor THI 1.2.840.114 [id number] Univers 00:00:00 00:00:00 Only Unassigned, VANESSA 350.1.13.10 ity of [place] [facility] 4.2.7.[address] [place] [id number] [facility] [address] 2022-11-05 2022-11-05 Outpatient Pepper ZHAO [facility] [id number] Univers 14:00:00 14:00:00 JETHRO valdes [facility] 2022-10-29 2022-10-29 Telephone Hillary [facility] 1.2.840.114 [id number] Univers 00:00:00 00:00:00 ashley [facility] 350.1.13.10 it [facility] 4.2.7.2.686 [facility] [phone] [facility] PRIMARY & [address] SPECIALTY CARE 2022-10-22 2022-10-22 Outpatient Pepper LEBLANC [facility] [id number] Univers 15:00:00 15:00:00 MARTIN [facility] 2022-10-21 2022-10-21 Outpatient R HILLARY [facility] [id number] Univers 13:00:00 13:00:00 keisha BAKER [facility] 2022-10-17 2022-10-17 (TEL) STLMLC STLMLC [id number] Co mmon 00:00:00 00:00:00 [facility] 2022-10-15 2022-10-15 Outpatient Pepper LEBLANC [facility] [id number] Univers 14:00:00 14:00:00 [facility] 2022-10-15 2022-10-15 [facility] [id number] [id number] Univers 00:00:00 00:00:00 [facility] 350.1.13.10 ity [facility] 4.2.7.2.686 [facility] [id number] [address] DIABETES [facility]INIC 2022-10-08 2022-10-08 (TEL) STLMLC STLMLC [id number] Co mmon 00:00:00 00:00:00 [facility] 2022-09-11 2022-09-11 (TEL) STLMLC STLMLC [id number] Co mmon 00:00:00 00:00:00 [facility] 2022-09-11 2022-09-11 OFFICE STLMLC STLMLC [id number] Co mmon 00:00:00 00:00:00 VISIT [facility] LEVEL 4 [facility] 2022-09-10 2022-09-10 Outpatient Pepper ZHAO [facility] [id number] Univers 16:00:00 16:00:00 JETHRO valdes [facility] 2022-09-06 2022-09-06 Telephone [facility] 1.2.840.114 [id number] Univers 00:00:00 00:00:00 MAXI baker 350.1.13.10 ity [facility] 4.2.7.2.686 [facility] AT [phone] Oh terrence HOOK 198 [facility] 2022-09-06 2022-09-06 Telephone Lanny [facility] 1.2.737.014 [id number] Univers 00:00:00 00:00:00 Sheryl ADDISON 350.1.13.10 ity of [place] 4.2.7.2.686 [facility] [id number] [facility] AND ONEIL [address] DIABETES CLINIC 2022-08-13 2022-08-13 Outpatient R [facility] [id number] Univers 14:00:00 15:50:10 ASHLEY ity of [facility] 2022-08-13 2022-08-13 Office Sheryl Ca [facility] 1.2.840.114 [id number] Univers 14:00:00 15:50:10 Visit Negra Dunaway 350 .1.13.10 ity of [facility] 4.2..2.[address] [place] [phone] [facility] AND [place] [address] [place] [facility] 2022-08-13 2022-08-13 Orders Doctor THI 1.2.840.114 [id number] Univers 00:00:00 00:00:00 Only Unassigned, VANESSA 350.1.13.10 ity of [place] [facility] 4.2.7.2.686 Satish [id number] [facility] [address] 2022-08-07 2022-08-07 (TEL[facility] [id number] Co mmon 00:00:00 00:00:00 [facility] 2022-08-05 2022-08-05 Hospital [facility] 1.2.840.114 [id number] Univers 11:21:07 23:59:00 Encounter ashley [facility] 350.1.13.10 ity of [facility] 4.2.7.2.686 [facility] [id number] [facility] PRIMARY & 809 [address] SPECIALTY CARE 2022-08-05 2022-08-05 Office [facility] 1.2.840.114 [id number] Univers 11:40:00 12:00:00 Visit ashley [facility] 350.1.13.10 it y of [address]2.686 [facility] [phone] [facility] PRIMARY & [address] SPECIALTY CARE 2022-08-05 2022-08-05 Outpatient R [facility] [id number] Univers 11:40:00 11:40:00 david BAKERy of [facility] 2022-08-05 2022-08-05 Orders Doctor NESS 1.2.840.114 [id number] Univers 00:00:00 00:00:00 Only Unassigned, VANESSA 350.1.13.10 ity of [address]2.686 Satish as [phone] [place] [address] Branch 2022-07-29 2022-07-29 Outpatient R [facility] [id number] Univers 16:00:00 16:00:00 ANDREAkeisha ADAMES of [facility] 2022-06-24 2022-06-24 Outpatient R [facility] [id number] Univers 11:40:00 11:40:00 keisha BAKER [facility] 2022-06-07 2022-06-07 [facility] 1.2.840.114 [id number] Univers 13:11:58 23:59:00 Encounter Jethro SPECIALTY 350.1.13.10 ity of [facility] 4.2.7.2.686 [facility] AT [phone] Oh terrence HOOK 809 [facility] 2022-06-07 2022-06-07 Office [facility] 1.2.512.114 [id number] Univers 13:20:00 13:44:39 Visit Jethro SPECIALTY 350.1.13.10 ity of [facility] 4.2.7.2.686 [facility] C[facility] AT [id number] Oh terrence HOOK 198 [facility] 2022-06-07 2022-06-07 Outpatient [facility] [id number] Univers 13:20:00 13:44:39 JETHRO ity [facility] 2022-06-07 2022-06-07 Outpatient Pepper DODGE [facility] [id number] Univers 13:20:00 13:44:39 JETHRO chiki [facility] 2022-06-07 2022-06-07 Outpatient Pepper DODGE [facility] [id number] Univers 13:20:00 13:20:00 JETHRO keisha [facility] 2022-05-30 2022-05-30 Outpatient Pepper DODGE [facility] [id number] Univers 13:10:00 13:10:00 JETHRO hernandezy [facility] 2022-05-22 2022-05-22 Orders Doctor THI 1.2.840.114 [id number] Univers 00:00:00 00:00:00 Only Unassigned, VANESSA 350.1.13.10 ity of [place] [facility] 4.2.7.2.686 Satish as [phone] [address] 2022-05-07 2022-05-07 [facility] [id number] Co mmon 00:00:00 00:00:00 VISIT [facility] PT - CHI LEVEL 4 [facility] 2022-05-07 2022-05-07 (TEL) [facility] [id number] Co mmon 00:00:00 00:00:00 [facility] 2022-04-18 2022-04-18 Orders Doctor THI Thomas.2.840.114 [id number] Univers 00:00:00 00:00:00 Only UnassignedVANESSA 350.1.13.10 ity of [place] [facility] 4.2.7.2.686 Satish as [phone] [facility] [address] 2021-06-15 2021-06-15 Office Christa King [facility] Michael 1.2.840.114 [id number] Univers 14:04:32 15:05:28 Visit Salazar Girard 350.1.13.10 it y of [place] [phone] [facility] 134 [address] 2021-06-15 2021-06-15 Outpatient CHRISTA MEANS [facility] [id number] Univers 14:30:00 14:30:00 ity of [facility] 2021-06-08 2021-06-08 Outpatient R CHRISTA KING [facility] [id number] Univers 14:00:00 14:00:00 ity of [facility] 2021-06-04 2021-06-04 Outpatient R JESSE ARREDONDO [facility] 201 [id number] Univers 13:00:00 13:00:00 ity [facility] 2021-01-25 2021-01-25 Orders Doctor NESS 1.2.840.114 [id number] 00:00:00 00:00:00 Only Unassigned, VANESSA 350.1.13.10 [place] [facility] 4.2.7.2.686 [id number] 009 2021-01-25 2021-01-25 Orders Doctor NESS 1.2.840.114 [id number] Univers 00:00:00 00:00:00 Only Unassigned, VANESSA 350.1.13.10 ity of [place] [facility] 4.2.7.2.686 Satish as [phone] [address] 2021-01-15 2021-01-15 Orders Doctor NESS 1.2.840.114 [id number] 00:00:00 00:00:00 Only Unassigned, VANESSA 350.1.13.10 [place] [facility] 4.2.7.2.686 [id number] 009 2021-01-15 2021-01-15 Orders Doctor NESS 1.2.840.114 [id number] [facility] 00:00:00 00:00:00 Only Unassigned, VANESSA 350.1.13.10 ity of [place] [facility] 4.2.7.2.686 Satish as [phone] [address] 2020-11-17 2020-11-17 Case Ronaldo [facility] 1.2.840.114 [id number] 00:00:00 00:00:00 Management [place]DISON 350.1.13.10 IAY 4.2.7.2.686 CENTER [id number] AND [facility] 085 [facility]AB[facility]ES [facility]IN[facility] 2020-11-17 2020-11-17 Transition Molly Hernandez 1.2.840.114 [id number] 00:00:00 00:00:00 of Care Viviana Leviy 350.1.13.10 [place] 4.2.7.2.686 [id number] 403 2020-11-17 2020-11-17 Transition Molly Hernandez 1.2.840.114 [id number] Univers 00:00:00 00:00:00 of Care Viviana Leviy 350.1.13.10 i ty of [place].7.2.[place] [id number] [facility] [address] 2020-11-17 2020-11-17 Case [facility] 1.2.840.114 [id number] Univers 00:00:00 00:00:00 Management [facility] 350.1.13.10 ity of [facility] 4.2.7.2.[place] [id number] [facility] AND [place] [address] DIABETES CLINIC 2020-11-12 2020-11-16 [facility] Jeronimo Hogue 1.2.840.1 14 [id number] 18:33:00 16:20:00 Encounter Julian Gonzales 350.1.13.10 [facility] 4.2.7.2.68 Sammie Tarango [phone] [place] Trevizo Nithya SungChu kim MorenoTyler Harris Chu Moreno 2020-11-12 2020-11-16 Inpatient X [facility] [id number] Univers 18:33:00 16:20:00 CHU ity of [facility] 2020-11-12 2020-11-16 [facility] Jeronimo Hogue 1.2.840.1 14 [id number] [facility] 18:33:00 16:20:00 Encounter Julian Gonzales 350.1.13.10 ity of [facility] 4.2.7.2.686 [place] Sammie Tarango [id number] [facility] [place] Trevizo Nithya [place] Sung, Chu Morenojewel Trevizo, [place] Marin, Chu Moreno 2020-11-14 2020-11-14 Telephone Harmony-TASS [facility] 1.2.840.114 [id number] 00:00:00 00:00:00 andreaumon, SPECIALTY 350.1.13.10 [place] CARE 4.2.7.2.686 CENTER AT [id number] [address]STER [address] [place] [address] 2020-11-14 2020-11-14 Telephone [facility] 1.2.840.114 [id number] Univers 00:00:00 00:00:00 andreaumon, SPECIALTY 350.1.13.10 ity of [place] CARE [place].2.7.2.[place] C[place] AT [phone] Oh dical [address] 2020-11-13 2020-11-13 Transition Molly Verdugo 1.2.840.114 [id number] 00:00:00 00:00:00 of Care Lizbeth Chiu 350.1.13.10 [place] 4.2.7.2.686 [id number] [facility] 2020-11-13 2020-11-13 Transition Molly Verdugo 1.2.840.114 [id number] Univers 00:00:00 00:00:00 of Care Lizbeth Chiu 350.1.13.10 it y of [place]2.7.2.[place] [phone] [place] [address] Branch 2020-11-07 2020-11-11 [facility] Jeronimo Hogue [facility] 1.2.840.1 14 [id number] 06:48:00 14:50:00 Encounter Annette Conrad 350.1.13.10 Jeron[place] 4.2.7.2.686 Annette oCnrad [place] [phone] 080 2020-11-07 2020-11-11 Inpatient X DEEDEE CONRAD ARIANE [id number] Univers 06:48:00 14:50:00 ANNETTE valdes [facility] 2020-11-07 2020-11-11 [facility] Jeronimo Hogue [facility] 1.2.840.1 14 [id number] Univers 06:48:00 14:50:00 Encounter Annette Conrad 350.1.13.10 ity of Jeronimo [place] 4.2.7.2.686 [place] Annette Conrad [place] [phone] [place] [address] Branch 2020-07-12 2020-07-12 Hospital HarmonyTyesha Carrin 1.2.840.114 [id number] 11:56:24 23:59:00 Encounter ashley Pediatric 350.1.13.10 [place] and 4.2.7.2.686 Adult [id number] Primary 809 Care Clinic 2020-07-12 2020-07-12 [facility] 1.2.840.114 [id number] [facility] 11:56:24 23:59:00 Encounter ashley Pediatric 350.1.13.10 ity of [place] and [place]2.7.2.686 [place] Adult [id number] [facility] Primary 809 [address] Care Clinic 2020-07-12 2020-07-12 Office [facility] Tate 1.2.840.114 [id number] 11:00:10 13:58:54 Visit ashley Pediatric 350.1.13.10 [place] and 4.2.7.2.686 Adult [phone] Primary 198 Care Clinic 2020-07-12 2020-07-12 Office [facility] Tate 1.2.840.114 [id number] Univers 11:00:10 13:58:54 Visit ashley Pediatric 350.1.13.10 ity of [place] and [place]2.7.2.686 [place] [id number] [facility] Primary 198 Branch Care [facility] 2020-07-12 2020-07-12 Outpatient R HARMONY-ZANE [facility] 124 [id number] Univers 11:00:00 11:00:00 david BAKERy of [place] [facility] 2020-07-03 2020-07-03 Orders Doctor NESS 1.2.840.114 [id number] 00:00:00 00:00:00 Only Unassigned, VANESSA 350.1.13.10 [place] [facility] 4.2.7.2.686 [id number] [facility] 2020-07-03 2020-07-03 Orders Doctor THI 1.2.840.114 [id number] Univers 00:00:00 00:00:00 Only Unassigned, VANESSA 350.1.13.10 ity of [place] [facility] 4.2.7.2.686 Satish as [phone] [address] 2020-06-02 2020-06-02 [facility] 1.2.840.114 [id number] Univers 12:31:11 14:20:12 Visit Edilma Amador 350.1.13.10 ity of [place] Profess[place] [id number] Oh dical nal [address] [place] [address] 2020-06-02 2020-06-02 [facility] [id number] Univers 13:00:00 13:00:00 EDILMA itchiki [facility] 2020-06-02 2020-06-02 Orders Doctor THI 1.2.840.114 [id number] Univers 00:00:00 00:00:00 Only Unassigned, VANESSA 350.1.13.10 ity of [place] [facility] 4.2.7.2.686 Satish as [phone] [address] 2020-05-26 2020-05-26 Outpatient [facility] [id number] Univers 10:45:00 10:45:00 EDILMA itchiki of [facility] 2020-05-26 2020-05-26 [facility] 1.2.840.114 [id number] Univers 08:07:24 08:37:24 ne Visit Edilma Mohit Amador 350.1.13.10 ity of [place].7.2.[place] [phone] Oh dical nal [address] [place] [address] 2020-05-12 2020-05-12 Outpatient R [facility] [id number] Univers 13:00:00 13:00:00 EDILMA ity of [facility] 2020-04-25 2020-04-25 [facility] 1.2.840.114 [id number] Univers 15:50:23 23:59:00 Encounter Edilma Amador 350.1.13.10 ity of [place] 4.2.7.2.686 [facility] [id number] [facility] 8[address] 2020-04-25 2020-04-25 Outpatient R [facility] [id number] Univers 00:00:00 00:00:00 EDILMA valdes [facility] 2020-04-25 2020-04-25 Orders Doctor THI 1.2.840.114 [id number] Univers 00:00:00 00:00:00 Only Unassigned, VANESSA 350.1.13.10 ity of [place] [facility] 4.2.7.2.686 Satish as [phone] [facility] [address] [place] 2020-04-14 2020-04-14 [facility] 1.2.840.114 [id number] Univers 14:15:54 14:56:38 Visit Edilma Aamdor 350.1.13.10 ity of [place] 4.2.7.2.[address] [facility] [phone] Oh dical [address] 2020-04-14 2020-04-14 Outpatient R [facility] [id number] Univers 13:30:00 13:30:00 EDILMA valdes [facility] 2020-04-13 2020-04-13 Orders Doctor THI 1.2.840.114 [id number] Univers 00:00:00 00:00:00 Only Unassigned, VANESSA 350.1.13.10 ity of [place] [facility] 4.2.7.2.686 Satish as [id number] [facility] [address] [place] 2019-11-01 2019-11-[address] [facility] 1.2.840.114 [id number] Univers 00:00:00 00:00:00 Jethro HEALTH 350.1.13.10 it y of [place] 4.2.7.2.686 [facility] [id number] [facility] Primary & [address] Specialty Care 2019-10-28 2019-10-[address] [facility] 1.2.840.114 [id number] Univers 00:00:00 00:00:00 Jethro HEALTH 350.1.13.10 it y of [place] 4.2.7.2.686 [facility] [phone] [facility] Primary & 144 [address] Specialty Care 2019-10-26 2019-10-26 Office [facility] 1.2.840.114 [id number] Univers 14:08:12 15:44:07 Visit Jethro ESTES 350.1.13.10 it y of [place] 4.2.7.2.686 [facility] [phone] [facility] Primary & 144 [address] Specialty Care 2019-10-07 2019-10-07 Telephone [facility] 1.2.840.114 [id number] Univers 00:00:00 00:00:00 Jethro ZAVALA 350.1.13.10 i ty of [facility] 4[place].7.2.[place] [phone] [facility] [address] [place] 2019-10-06 2019-10-06 Outpatient [facility] [id number] Univers 10:39:27 23:59:00 JETHRO ity of [facility] 2019-10-06 2019-10-06 [facility] Aleida Zhao 1.2.342.987 [id number] Univers 10:39:00 23:59:00 Encounter Jethro Vanessa 350.1.13.10 ity of [facility] 4.2.7.2.686 Satish as [phone] [facility] 8[address] 2019-10-06 2019-10-06 [facility] Aleida Zhao 1.2.796.990 [id number] Univers 09:41:27 16:32:00 Encounter Jethro Vanessa 350.1.13.10 ity of [facility] 4.2.7.2.686 Satish as [id number] [facility] 104 [address] 2019-10-06 2019-10-06 Orders Doctor THI 1.2.840.114 [id number] Univers 00:00:00 00:00:00 Only Unassigned, VANESSA 350.1.13.10 ity of [place] [facility] 4.2.7.2.686 Satish as [id number] [facility] [address] 2019-05-28 2019-05-28 Office [facility] 1.2.840.114 [id number] Univers 13:10:51 15:03:17 Visit Nesha Amador 350.1.13.10 i ty of [place] 4.2.7.2.686 Roxanne Porter [phone] Oh dical nal [address] Building Results Test [...] 0-0 (BEAKER) (test code = 413) 0.00POCT-GLUCOSE [id number] 17:50:00 Test Item Value Reference Range Interpretation Comments POC-GLUCOSE METER 118 mg/dL 70-110 H TESTED AT [place] [address] ([facility]) (test code = [facility] 1538) [address] POCT-GLUCOSE [id number] 11:59:00 Test Item Value Reference Range Interpretation Comments POC-GLUCOSE METER 247 mg/dL 70-110 H TESTED AT [place] [address] ([facility]) (test code = [facility] 1538) [id number] POCT-GLUCOSE [id number] 07:54:00 Test Item Value Reference Range Interpretation Comments POC-GLUCOSE METER 141 mg/dL 70-110 H TESTED AT [place] [address] ([facility]) (test code = [facility] 1538) [id number] CBC W/PLT COUNT & AUTO [id number] 03:45:00 Test Item Value Reference Range Interpretation [...] K/ L 0.00-0.20 (test code = 417) [id number] 03:29:00 Test Item Value Reference Range Interpretation Comments MAGNESIUM (BEAKER) 1.8 mg/dL 1.6-2.6 Specimen slightly (test code = 627) hemolyzed BASIC METABOLIC [id number] 03:29:00 Test Item Value Reference Range Interpretation [...] NOT APPLICABLE FOR DIALYSIS PATIEN TS. POCT-GLUCOSE [id number] 00:05:00 Test Item Value Reference Range Interpretation Comments POC-GLUCOSE METER 117 mg/dL 70-[address] [facility] ([facility]) (test code = DEANAID Pepper [place] 1538) [address] POCT-GLUCOSE [id number] 18:17:00 Test Item Value Reference Range Interpretation Comments POC-GLUCOSE METER 141 mg/dL 70-[address] [facility] [facility] [address] ([facility]) (test code = DEANAID Pepper [facility] 1538) [address] CREATINE KINASE (CK), TOTAL AND [id number] 15:43:00 Test Item Value Reference Range Interpretation Comments CREATINE KINASE TOTAL (BEAKER) 31 U/L 29-200 (test code = 380) CREATINE KINASE-MB (BEAKER) (test 1.3 ng/mL 0.0-6.6 code = 750) CREATINE KINASE-MB INDEX (BEAKER) 4.2 % (test code = 395) Effective 08/09/2014: CK-MB Reference Range ChangeNew: 0.0-6.6 Previous: 0.0-4.9CK-MB Reference Range:<6.7 Normal6.7-10.0 Borderline>10.0 Abnormal BLOOD GAS, [id number] 15:26:00 Test Item Value Reference Range Interpretation [...] H (test code = 387) PATIENT TEMPERATURE ([facility]) 37.5 C (test code = 1818) FIO2 ([facility]) (test code = 1819) 35.0 % POCT-GLUCOSE [id number] 11:45:00 Test Item Value Reference Range Interpretation Comments POC-GLUCOSE METER 122 mg/dL 70-[address] [facility] [address] ([facility]) (test code = KISHA Pabon [facility] 1538) [address] CREATINE KINASE (CK), TOTAL AND [id number] 10:29:00 Test Item Value Reference Range Interpretation Comments CREATINE KINASE TOTAL ([facility]) 31 U/L 29-200 (test code = 380) CREATINE KINASE-MB ([facility]) (test 1.5 ng/mL 0.0-6.6 code = 750) CREATINE KINASE-MB INDEX ([facility]) 4.8 % (test code = 395) Effective 08/09/2014: CK-MB Reference Range ChangeNew: 0.0-6.6 Previous: 0.0-4.9CK-MB Reference Range:<6.7 Normal6.7-10.0 Borderline>10.0 Abnormal TROPONIN [id number] 10:29:00 Test Item Value Reference Range Interpretation Comments TROPONIN I ([facility]) (test code = 397) < ng/mL [...] failure, acidosis, acute neurological disease, and persistent tachyarrhythmia.[id number] 10:22:00 Test Item Value Reference Range Interpretation Comments PARTIAL THROMBOPLASTIN TIME 22.5 seconds 22.5-36.0 ([facility]) (test code = 760) PROTHROMBIN TIME/[id number] 10:21:00 Test Item Value Reference Range Interpretation Comments PROTIME (BEAKER) (test code = 12.4 seconds 11.7-14.7 759) INR (BEAKER) (test code = 370) 0.9 <=5.9 RECOMMENDED COUMADIN/WARFARIN INR THERAPY RANGESSTANDARD DOSE: 2.0 - 3.0 Includes: PROPHYLAXIS for venous thrombosis, systemic embolization; TREATMENT for venous thrombosis and/or pulmonary embolus.HIGH RISK: Target INR is 2.5-3.5 for patients with mechanical heart valves.BLOOD GAS, [id number] 10:17:00 Test Item Value Reference Range Interpretation [...] (test code = 1819) 40.0 % PLATELET [id number] 10:13:00 Test Item Value Reference Range Interpretation Comments PLATELET COUNT (BEAKER) (test 111 K/CU MM 150-430 L code = 756)
[2023-01-05 13:28] LABS: Arterial Blood Carboxyhemoglob 1.5 % (0-1.5); Blood Gas Oxyhemoglobin 50.2 % (94-97); Blood O2 Saturation 51.7 % (92-98.5)
[2023-01-05] MEDS ORDERED: CEFTRIAXONE 1000 MG/VIAL ONE (13:45)
[2023-01-05] MEDS ORDERED: LEVALBUTEROL 1.25 MG/3 ML NEB ONE (13:45)
[2023-01-05] MEDS ORDERED: IPRATROPIUM BROM 0.5MG/2.5ML ONE (13:45)
[2023-01-05] MEDS ORDERED: METHYLPREDNISOLONE 125 MG INJ ONE (13:45)
--- NOTE | 2023-01-05 14:25 | ER ---
Nurse's Notes [facility] Name: Vikki Zamudio Age: 62 yrs Sex: Female : 1960 Arrival Date: 01/05/2023 Time: 12:54 Bed 25 Private MD: Diagnosis: Hypoxemia;Acute and chronic respiratory failure with hypoxia;Acute and chronic respiratory failure with hypercapnia;Obesity, unspecified;COPD/ Chronic obstructive pulmonary disease with (acute) exacerbation Presentation: 01/05 13:03 Chief complaint: EMS states: toned out to patient home for SOB, chest pain/discomfort. ld1 Reports low SpO2 reading at home. Upon arrival SpO2 82% 3L NC. Coronavirus screen: At this time, the client does not indicate any symptoms associated with coronavirus-19. Ebola Screen: No symptoms or risks identified at this time. Initial Sepsis Screen: Does the patient meet any 2 criteria? No. Patient's initial sepsis screen is negative. Does the patient have a suspected source of infection? No. Patient's initial sepsis screen is negative. Risk Assessment: Do you want to hurt yourself or someone else? Patient reports no desire to harm self or others. Onset of symptoms was January 05, 2023. 13:03 Method Of Arrival: EMS: [facility] ld1 13:03 Acuity: LIZETH 3 ld1 Triage Assessment: 13:04 General: Appears in no apparent distress. comfortable, Behavior is calm, cooperative, ld1 appropriate for age. Pain: Complains of pain in chest Pain does not radiate. Pain currently is 10 out of 10 on a pain scale. Quality of pain is described as throbbing. EENT: No signs and/or symptoms were reported regarding the EENT system. Neuro: Level of Consciousness is awake, alert, obeys commands, Oriented to person, place, time, situation. Cardiovascular: Capillary refill < 3 seconds Patient's skin is warm and dry. Rhythm is irregular. Respiratory: Reports shortness of breath Airway is patent Respiratory effort is even, labored, Onset: The symptoms/episode began/occurred yesterday, the patient has moderate shortness of breath. GI: Abdomen is round obese. : No signs and/or symptoms were reported regarding the genitourinary system. Derm: No signs and/or symptoms reported regarding the dermatologic system. Musculoskeletal: No signs and/or symptoms reported regarding the musculoskeletal system. Historical: - Allergies: 13:04 No Known Allergies; ld1 - PMHx: 13:04 CHF; COPD; GERD; High Cholesterol; Hypercarbia; Hypertension; Hypothyroidism; Panic ld1 Attacks; Sleep Apnea; - PSHx: 13:04 section; ld1 - Immunization history:: Adult Immunizations up to date, Client reports receiving the 2nd dose of the Covid vaccine. - Social history:: Smoking status: Patient/guardian denies using tobacco, the patient reports quitting approximately 20 years ago, Patient/guardian denies using alcohol. Screenin:08 [facility] ED Fall Risk Assessment (Adult) History of falling in the last 3 months, ld1 including since admission No falls in past 3 months (0 pts). Abuse screen: Denies threats or abuse. Denies injuries from another. Nutritional screening: No deficits noted. Tuberculosis screening: No symptoms or risk factors identified. Assessment: 13:08 Reassessment: See triage assessment. ld1 13:30 Reassessment: RT at bedside - pt placed on BIPAP with breathing treatment. ld1 04 12:25 Reassessment: pt transferred to ER bed 25 via hospital bed, with O2, bipap at bedside. kc6 report given to Almita Freed RN. 19:49 Reassessment: Patient appears in no apparent distress at this time. Patient and/or nj1 family updated on plan of care and expected duration. Pain level reassessed. Patient is alert, oriented x 3, equal unlabored respirations, skin warm/dry/pink. Reassessment: Report given to nurse Trevino. Respiratory: Respiratory effort is slightly labored, pt has just gotten to bed from [facility]. This RN offers to put BiPAP back on, pt does put mask on. Condition improves. Vital Signs: 04 13:03 BP 139 / 79; Pulse 81; Resp 28; Temp 98.1(O); Pulse Ox 90% on 5 lpm NC; Weight 137.44 ld1 kg; Height 5 ft. 6 in. ; Pain 10/10; 13:30 BP 116 / 61; Pulse 80; Resp 18; Pulse Ox 99% on 45 lpm BiPAP; ld1 14:35 BP 115 / 51; Pulse 57; Resp 22; Pulse Ox 96% on 45 lpm BiPAP; ld1 15:30 BP 122 / 68; Pulse 69; Resp 22; Pulse Ox 97% on 45 lpm BiPAP; ld1 16:30 BP 117 / 51; Pulse 57; Resp 17; Pulse Ox 95% on 45 lpm BiPAP; ld1 17:30 BP 102 / 61; Pulse 52; Resp 20; Pulse Ox 95% on 45 lpm BiPAP; ld1 18:04 BP 102 / 61; Pulse 59; Resp 20; Pulse Ox 96% on 45 lpm BiPAP; ld1 18:08 BP 141 / 64; Pulse 64; Resp 18; Pulse Ox 95% on 45 lpm BiPAP; ld1 04 19:41 BP 122 / 105; Pulse 71; Resp 20; Pulse Ox 99% on BiPAP; nj1 01/05 13:03 Body Mass Index 48.90 (137.44 kg, 167.64 cm) ld1 01/05 13:03 Pain Scale: Adult ld1 ED Course: 01/05 13:01 Patient arrived in ED. aa5 13:01 Po Toure MD is Attending Physician. chato 13:03 Cathy Ernst, DULCE is Primary Nurse. ld1 13:04 Triage completed. ld1 13:04 Arm band placed on right wrist. ld1 13:08 Patient has correct armband on for positive identification. Placed in gown. Bed in low ld1 position. Call light in reach. Side rails up X2. emergency operator on. Pulse ox on. NIBP on. Door closed. Noise minimized. Warm blanket given. 13:08 No provider procedures requiring assistance completed. ld1 14:24 Tarun Amaro MD is Hospitalizing Provider. chato 14:29 COVID-19/FLU A+B Sent. ld1 14:29 Lactate w/ 2H reflex if indic. Sent. ld1 14:29 Blood Culture Adult (2) Sent. ld1 14:30 ABG Sent. ld1 14:30 Inserted saline lock: 20 gauge in left upper arm, using aseptic technique. Blood ld1 collected. 14:49 XRAY Chest (1 view) In Process Unspecified. EDMS 01/06 07:00 Report received from Curly Ch RN. kc6 07:06 Primary Nurse role handed off by Cathy Ernst, DULCE bd 20:27 Patient admitted, IV remains in place. nj1 Administered Medications: 01/05 13:47 Drug: Levalbuterol Inhalation 3.75 mg Route: Inhalation; ld1 13:47 Drug: Ipratropium Inhalation Aerosol 0.5 mg Route: Inhalation; ld1 14:29 Drug: MethylPrednisoLONE IVP 125 mg Route: IVP; Site: left upper arm; ld1 14:29 Drug: Rocephin IV 1 grams Route: IV; Rate: per protocol; Site: left upper arm; ld1 Medication: 13:08 VIS not applicable for this client. ld1 Outcome: 14:25 Decision to Hospitalize by Provider. chato 01/06 20:26 Admitted to Tele accompanied by tech, via wheelchair, room 411, with oxygen, Report nj1 called to Belinda (dog license officer supervisor) Condition: stable Instructed on the need for admit, Demonstrated understanding of instructions. 20:27 Patient left the ED. nj1 Signatures: Dispatcher [employer] EDMS Maryanne Guerra Corey, MD MD cha Calderon, Audri, RN RN aa5 Cathy Ernst RN RN ld1 Zoey Ortega RN RN kc6 Elena Acevedo RN RN nj1
--- NOTE | 2023-01-05 14:25 | EDPHYS ---
Physician Documentation [facility] Name: Vikki Zamudio Age: 62 yrs Sex: Female : 1960 Arrival Date: 01/05/2023 Time: 12:54 Bed 25 Private MD: ED Physician Po Toure HPI: 01/05 14:14 This 62 yrs old Female presents to ER via EMS with complaints of Shortness Of chato Breath. 14:14 The patient has shortness of breath at rest, with light activity. Onset: The chato symptoms/episode began/occurred 1 day(s) ago. Duration: The symptoms are continuous, and are steadily getting worse. The patient's shortness of breath is aggravated by coughing, is alleviated by nebulizer treatment, rest, sitting up, application of supplemental oxygen. Associated signs and symptoms: Pertinent positives: non-productive cough. Severity of symptoms: At their worst the symptoms were mild in the emergency department the symptoms are unchanged. The patient has not experienced similar symptoms in the past. Historical: - Allergies: 13:04 No Known Allergies; ld1 - PMHx: 13:04 CHF; COPD; GERD; High Cholesterol; Hypercarbia; Hypertension; Hypothyroidism; Panic ld1 Attacks; Sleep Apnea; - PSHx: 13:04 section; ld1 - Immunization history:: Adult Immunizations up to date, Client reports receiving the 2nd dose of the Covid vaccine. - Social history:: Smoking status: Patient/guardian denies using tobacco, the patient reports quitting approximately 20 years ago, Patient/guardian denies using alcohol. ROS: 14:16 Constitutional: Negative for fever, chills, and weight loss, Eyes: Negative for injury, chato pain, redness, and discharge, ENT: Negative for injury, pain, and discharge, Neck: Negative for injury, pain, and swelling, Cardiovascular: Negative for chest pain, palpitations, and edema, Abdomen/GI: Negative for abdominal pain, nausea, vomiting, diarrhea, and constipation, Back: Negative for injury and pain, : Negative for injury, bleeding, discharge, and swelling, MS/Extremity: Negative for injury and deformity, Skin: Negative for injury, rash, and discoloration, Neuro: Negative for headache, weakness, numbness, tingling, and seizure, Psych: Negative for depression, anxiety, suicide ideation, homicidal ideation, and hallucinations, Allergy/Immunology: Negative for hives, rash, and allergies, Endocrine: Negative for neck swelling, polydipsia, polyuria, polyphagia, and marked weight changes, Hematologic/Lymphatic: Negative for swollen nodes, abnormal bleeding, and unusual bruising. 14:16 Respiratory: Positive for cough, "sounds productive". Exam: 14:16 Constitutional: This is a well developed, well nourished patient who is awake, alert, chato and in no acute distress. Head/Face: Normocephalic, atraumatic. Eyes: Pupils equal round and reactive to light, extra-ocular motions intact. Lids and lashes normal. Conjunctiva and sclera are non-icteric and not injected. Cornea within normal limits. Periorbital areas with no swelling, redness, or edema. ENT: Nares patent. No nasal discharge, no septal abnormalities noted. Tympanic membranes are normal and external auditory canals are clear. Oropharynx with no redness, swelling, or masses, exudates, or evidence of obstruction, uvula midline. Mucous membranes moist. Neck: Trachea midline, no thyromegaly or masses palpated, and no cervical lymphadenopathy. Supple, full range of motion without nuchal rigidity, or vertebral point tenderness. No Meningismus. Chest/axilla: Normal chest wall appearance and motion. Nontender with no deformity. No lesions are appreciated. Cardiovascular: Regular rate and rhythm with a normal S1 and S2. No gallops, murmurs, or rubs. Normal PMI, no JVD. No pulse deficits. Abdomen/GI: Soft, non-tender, with normal bowel sounds. No distension or tympany. No guarding or rebound. No evidence of tenderness throughout. Back: No spinal tenderness. No costovertebral tenderness. Full range of motion. Female : Normal external genitalia. Skin: Warm, dry with normal turgor. Normal color with no rashes, no lesions, and no evidence of cellulitis. MS/ Extremity: Pulses equal, no cyanosis. Neurovascular intact. Full, normal range of motion. Neuro: Awake and alert, GCS 15, oriented to person, place, time, and situation. Cranial nerves II-XII grossly intact. Motor strength 5/5 in all extremities. Sensory grossly intact. Cerebellar exam normal. Normal gait. Psych: Awake, alert, with orientation to person, place and time. Behavior, mood, and affect are within normal limits. 14:16 Respiratory: mild respiratory distress is noted, Respirations: labored breathing, that is mild, Breath sounds: bronchial sounds, that are mild, are scattered, decreased breath sounds, that are moderate, are scattered, rhonchi, that are mild, are scattered, stridor, that is mild, + upper airway congestion. wheezing: expiratory 14:26 ECG was reviewed by the Attending Physician. [facility] Vital Signs: 13:03 BP 139 / 79; Pulse 81; Resp 28; Temp 98.1(O); Pulse Ox 90% on 5 lpm NC; Weight 137.44 ld1 kg; Height 5 ft. 6 in. ; Pain 10/10; 13:30 BP 116 / 61; Pulse 80; Resp 18; Pulse Ox 99% on 45 lpm BiPAP; ld1 14:35 BP 115 / 51; Pulse 57; Resp 22; Pulse Ox 96% on 45 lpm BiPAP; ld1 15:30 BP 122 / 68; Pulse 69; Resp 22; Pulse Ox 97% on 45 lpm BiPAP; ld1 16:30 BP 117 / 51; Pulse 57; Resp 17; Pulse Ox 95% on 45 lpm BiPAP; ld1 17:30 BP 102 / 61; Pulse 52; Resp 20; Pulse Ox 95% on 45 lpm BiPAP; ld1 18:04 BP 102 / 61; Pulse 59; Resp 20; Pulse Ox 96% on 45 lpm BiPAP; ld1 18:08 BP 141 / 64; Pulse 64; Resp 18; Pulse Ox 95% on 45 lpm BiPAP; ld1 01/06 19:41 BP 122 / 105; Pulse 71; Resp 20; Pulse Ox 99% on BiPAP; nj1 01/05 13:03 Body Mass Index 48.90 (137.44 kg, 167.64 cm) ld1 01/05 13:03 Pain Scale: Adult ld1 MDM: 01/05 13:01 Patient medically screened. [facility] 14:22 Differential diagnosis: Anxiety Reaction asthma, CHF exacerbation, Chronic Obstructive chato Pulmonary Disease obstructed airway, bronchitis, flu, URI, Myocardial Infarction pneumonia, Pneumothorax pulmonary edema, Pulmonary Embolism Sepsis. Antibiotic administration: Rocephin and Zithromax given. Immunization status: Influenza vaccine: within last 5 years. Data reviewed: vital signs, nurses notes, EMS record, lab test result(s), EKG, radiologic studies, plain films. Management of patient was discussed with the following: Hospitalist: dr amaro. Independent interpretation of the following test(s) in the Emergency Department X-Ray: My interpretation is copd. Test considered but Not performed: CT: ct chese ro PE. Care significantly affected by the following chronic conditions: Hypertension, Congestive Heart Failure, Chronic Obstructive Pulmonary Disease, Obesity. Counseling: I had a detailed discussion with the patient and/or guardian regarding: the historical points, exam findings, and any diagnostic results supporting the discharge/admit diagnosis, lab results, radiology results, the need for further work-up and treatment in the hospital. 01/05 13:03 Order name: Basic Metabolic Panel; Complete Time: 19:22 chato 01/05 13:03 Order name: CBC with Diff 01/05 13:03 Order name: LFT's; Complete Time: 19:22 01/05 13:03 Order name: Magnesium; Complete Time: 19:22 01/05 13:03 Order name: NT PRO-BNP; Complete Time: 19:22 01/05 13:03 Order name: PT-INR; Complete Time: 19:22 01/05 13:03 Order name: Troponin HS; Complete Time: 19:22 01/05 13:03 Order name: Blood Culture Adult (2) 01/05 13:03 Order name: Lactate w/ 2H reflex if indic.; Complete Time: 19:22 01/05 13:03 Order name: ABG; Complete Time: 19:22 01/05 13:03 Order name: Urinalysis W/Microscopic; Complete Time: 19:22 01/05 13:03 Order name: COVID-19/FLU A+B; Complete Time: 19:22 chato 01/05 16:34 Order name: CBC with Automated Diff EDMS 01/05 16:34 Order name: CBC with Automated Diff EDMS 01/05 16:34 Order name: Comprehensive Metabolic Panel EDMS 01/05 16:34 Order name: Comprehensive Metabolic Panel EDMS 01/05 16:34 Order name: Magnesium EDMS 01/05 16:34 Order name: Magnesium EDMS 01/05 16:34 Order name: Phosphorus EDMS 01/05 16:34 Order name: Phosphorus EDMS 01/05 20:53 Order name: Manual Differential [facility] 01/06 00:31 Order name: ABG Arterial Blood Gas [facility] 01/06 06:46 Order name: ABG Arterial Blood Gas [facility] 01/05 13:03 Order name: XRAY Chest (1 view); Complete Time: 19:22 [facility] 01/05 14:42 Order name: BIPAP [facility] 01/05 13:03 Order name: EKG; Complete Time: 13:04 [facility] 01/05 16:34 Order name: CONS Physician Consult [facility] 01/05 16:34 Order name: NPO [facility] 01/05 13:03 Order name: Cardiac monitoring; Complete Time: 13:23 [facility] 01/05 13:03 Order name: EKG - Nurse/Tech; Complete Time: 13:41 [facility] 01/05 13:03 Order name: IV Saline Lock; Complete Time: 14:30 [facility] 01/05 13:03 Order name: Labs collected and sent; Complete Time: 14:30 [facility] 01/05 13:03 Order name: O2 Per Protocol; Complete Time: 13:22 [facility] 01/05 13:03 Order name: O2 Sat Monitoring; Complete Time: 13:22 [facility] EC:26 Rate is 81 beats/min. Rhythm is regular. QRS Enterprise is Normal. VT interval is normal. QRS chato interval is normal. QT interval is normal. No Q waves. T waves are Normal. No ST changes noted. Clinical impression: NSR w/ Non-specific ST/T Changes and No evidence of ischemia. Interpreted by me. Reviewed by me. Administered Medications: 13:47 Drug: Levalbuterol Inhalation 3.75 mg Route: Inhalation; ld1 13:47 Drug: Ipratropium Inhalation Aerosol 0.5 mg Route: Inhalation; ld1 14:29 Drug: MethylPrednisoLONE IVP 125 mg Route: IVP; Site: left upper arm; ld1 14:29 Drug: Rocephin IV 1 grams Route: IV; Rate: per protocol; Site: left upper arm; ld1 Disposition Summary: 01/05/23 14:25 Hospitalization Ordered Hospitalization Status: Inpatient Admission chato Provider: Tarun Amaro cha Condition: Fair chato Problem: an acute exacerbation chato Symptoms: have improved chato Bed/Room Type: Standard chato Location: Telemetry/MedSurg (Inpatient)(01/06/23 19:06) Room Assignment: 411(01/06/23 19:06) bd Diagnosis - Hypoxemia chato - Acute and chronic respiratory failure with hypoxia chato - Acute and chronic respiratory failure with hypercapnia chato - Obesity, unspecified chato - COPD/ Chronic obstructive pulmonary disease with (acute) exacerbation chato Forms: - Medication Reconciliation Form chato - SBAR form chato Signatures: Dispatcher [employer] EDMS Maryanne Guerra Corey, MD MD cha Attema, Lee, INSURANCE ADMINISTRATIVE ASSISTANT-C INSURANCE ADMINISTRATIVE ASSISTANT-Cla1 Hetal Shetty Lauren, RN RN ld1 Corrections: (The following items were deleted from the chart) 15:14 14:25 Telemetry/MedSurg (Inpatient) chato eb 15:14 14:25 chato eb 16:34 13:04 Urinalysis W/Microscopic+U.LAB.BRZ ordered. EDNY EDMS 01/06 19:06 01/05 15:14 BR ER HOLD eb bd 01/06 19:06 01/05 15:14 ERHOLD- eb bd
[2023-01-05 14:43] LABS: Protime INR 1.05
[2023-01-05 14:59] LABS: Bilirubin Direct 0.1 mg/dL (0-0.2); Bilirubin Total 0.4 mg/dL (0.2-1.0); Magnesium 2.1 mg/dL (1.6-2.4); Potassium 4.3 mEq/L (3.5-5.1); Protein, Total 6.2 g/dL (6.4-8.2); Troponin High Sensitivity 22.7 pg/mL (<58.9)
[2023-01-05 15:14] LABS: SARS-COV-2 RT PCR NEGATIVE (NEGATIVE)
[2023-01-05 15:26] LABS: Absolute Lymphocytes (CBC) 1.3 K/uL (0.7-4.9); Hematocrit 32.4 % (36.0-45.0); MCV 84.7 fL (80-100); MPV 8.2 fL (7.6-11.3); RBC Red Blood Cell Count 3.83 M/uL (3.86-4.86)
--- NOTE | 2023-01-05 16:11 | P.HP ---
Certification for Inpatient Patient admitted to: Inpatient With expected LOS: >2 Midnights Patient will require the following post-hospital care: None Practitioner: I am a practitioner with admitting privileges, knowledge of patient current condition, hospital course, and medical plan of care. Services: Services provided to patient in accordance with Admission requirements found in Title 42 Section 412.3 of the Code of Federal Regulations Patient History Date of Service: 01/05/23 Reason for admission: Acute Respiratory Distress History of Present Illness: Ms. Vikki Zamudio is a pleasant 62-year-old female who has a past medical history of chronic hypercapnic respiratory failure secondary to chronic obstructive pulmonary disease, pulmonary hypertension, obstructive sleep apnea, chronic atrial fibrillation, dyslipidemia, hypothyroidism, gastroesophageal reflux disease, bipolar disorder, and hypertension who presents to the [facility] Emergency Department for shortness of breath. She reports that, over the last 1 week, she has been experiencing progressively worsening shortness of breath. She states that the symptoms have been associated with wheezing and a dry cough. She states that her symptoms are worse with exertion. She tried taking her home medications, without alleviation of her symptoms. On review of systems, she denies any fevers, chills, headaches, dizziness, syncope, chest pain, palpitations, abdominal pain, nausea/vomiting, diarrhea or any other symptoms. She presented to the Emergency Department for further evaluation. Upon presentation, her vital signs were notable for a respiratory rate of 28 breaths/min and an SpO2 90% on 5 L nasal cannula. Her laboratory studies were notable for a pH of 7.23, a PCO2 of 89.0, and a PO2 of 30.8. Blood cultures x 2 were obtained. EKG was without STEMI criteria. Her chest x-ray revealed, "changes suggestive of central venous congestion or CHF. No focal pneumonia." In the Emergency Department, she was given levalbuterol and ipratropium. She was admitted to the General Internal Medicine service for further evaluation. Allergies No Known Allergies Allergy (Verified 10/19/22 22:27) Home medications list reviewed: Yes Home Medications: Apixaban [Eliquis] 5 mg PO BID 10/19/22 Atorvastatin Calcium 20 mg PO BEDTIME 10/19/22 Gabapentin 300 mg PO TID 10/19/22 Levothyroxine [Synthroid*] 88 mcg PO [id number] 10/19/22 Roflumilast [Daliresp] 500 mcg PO DAILY 10/19/22 Ropinirole HCl 1 tab PO BEDTIME 10/19/22 acetaZOLAMIDE [Acetazolamide] 250 mg PO DAILY 10/19/22 clonazePAM [Clonazepam] 0.5 mg PO DAILY PRN 10/19/22 Pantoprazole [Protonix Tab*] 40 mg PO DAILYAC #30 tab 12/13/22 Spironolactone [Aldactone*] 25 mg PO BID #60 tab 12/13/22 predniSONE [Deltasone*] 10 mg PO DAILY #30 tab 12/13/22 Azithromycin Tab [Zithromax*] 500 mg PO DAILY tab 12/18/22 - Past Medical/Surgical History Diabetic: No -: Severe COPD, home oxygen/NIV,Pulmonary-Dr. Do -: Mild pulmonary hypertension -: Hypothyroidism -: Bipolar disorder -: Hypertension -: Chronic low back pain -: Obstructive sleep apnea -: GERD -: HLD -: GERD -: Appendectomy -: Psychosocial/ Personal History: She lives with a partner. She has 1 child. She is currently disabled. - Family History Father -: Heart disease, Hypertension, Diabetes Notes: from CHF Mother -: Heart disease, Hypertension, Diabetes Notes: from CHF Brother -: Diabetes Sister -: Heart disease, Diabetes Notes: from CHF - Social History Alcohol use: No CD- Drugs: No Caffeine use: No Review of Systems General: Unremarkable Eyes: Unremarkable ENT: Unremarkable Respiratory: Cough, Dry, Shortness of Breath, Wheezing Cardiovascular: Unremarkable Gastrointestinal: Unremarkable Genitourinary: Unremarkable Musculoskeletal: Unremarkable Integumentary: Unremarkable Neurological: Unremarkable Lymphatics: Unremarkable Physical Examination - Vital Signs Temperature: 98.1 F Blood Pressure: 139/79 Pulse: 81 Respirations: 28 Pulse Ox (%): 90 (5 L) - Physical Exam General: Alert, Oriented x3, Moderate distress HEENT: Atraumatic, Mucous membr. moist/pink, Sclerae nonicteric Neck: JVD not distended Respiratory: Diminished, Crackles/rales, Expiratory wheezes Cardiovascular: No edema, Regular rate/rhythm, Normal S1 S2, No gallops, No rubs, No murmurs Gastrointestinal: Normal bowel sounds, Soft and benign, Non-distended, No tenderness, No rebound, No guarding Musculoskeletal: No clubbing Integumentary: No rashes Neurological: Normal speech, Normal affect - Studies Laboratory Data (last 24 hrs) 01/05/23 14:21: PT 11.6, INR 1.05 01/05/23 14:21: WBC 6.90, Hgb 10.2 L, Hct 32.4 L, Plt Count 109 L 01/05/23 14:21: Sodium 139, Potassium 4.3, BUN 12, Creatinine 0.78, Glucose 115 H, Magnesium 2.1, Total Bilirubin 0.4, AST 6 L, ALT 12 L, Alkaline Phosphatase 91 Assessment and Plan - Plan # Acute on Chronic Hypercapnic, Hypoxemic Respiratory Failure - likely secondary to a Chronic Obstructive Pulmonary Disease Exacerbation # Pulmonary Hypertension # Obstructive Sleep Apnea - Evaluation thus far: - Initial ABG = pH 7.23, PCO2 89.0, PO2 30.8 - Chest x-ray = "changes suggestive of central venous congestion or CHF. No focal pneumonia." - Management plan: - Consulted Pulmonary Medicine - recommendations appreciated - Bronchodilators and steroids per Pulm - Continue home roflumilast, spironolactone, acetazolamide - May require portable NIV at home - appreciated Pulm recs - Started low-dose furosemide - monitor I/O - Consulted Respiratory Therapy - Supplemental oxygen to maintain SpO2 > 92% - Currently on BiPAP support - Encouraged incentive spirometry # Chronic Atrial Fibrillation - Rate-controlled without medication - Continue home apixaban # Dyslipidemia - Continue home atorvastatin # Hypothyroidism - Continue home levothyroxine # Chronic Low Back Pain with RLS? - Continue home gabapentin, ropinirole # Gastroesophageal Reflux Disease - Continue home pantoprazole # Bipolar Disorder # Hypertension - Continue home clonazepam to avoid benzodiazepine withdrawal Tarun Amaro M.D. - Advance Directives Does patient have a Living Will: No Does patient have a Durable POA for Healthcare: No
--- NOTE | 2023-01-05 16:14 | RAD REPORT ---
[facility] 2[facility]48 pm CLINICAL HISTORY: COPD;Cough COMPARISON: Chest Single View dated 12/16/2022; Chest Single View dated 12/14/2022; Chest Single View dated 12/11/2022; Chest Single View dated 10/19/2022 TECHNIQUE: Portable AP view of the chest. FINDINGS: The lungs show no focal consolidation. Central prominent interstitium and streaky opacitie s. No pneumothorax or effusion. The cardiomediastinal contours are unremarkable. IMPRESSION: Changes suggestive of central venous congestion or CHF. No focal pneumonia.
[2023-01-05] MEDS ORDERED: IPRATROPIUM BROM 0.5MG/2.5ML NEB PRN (16:29)
[2023-01-05] MEDS ORDERED: ALBUTEROL 2.5 MG/3 ML NEB SOL NEB PRN (16:29)
[2023-01-05] MEDS ORDERED: clonazePAM 0.5 MG TAB PO PRN (16:36)
[2023-01-05 19:05] LABS: Specific Gravity > 1.030 (1.005-1.030); Urine Bacteria 20-50 /HPF (<20); Urine Bilirubin NEGATIVE (Negative); Urine Blood 1+ (Negative); Urine Clarity Turbid (Clear); Urine Color Yellow (Yellow); Urine Glucose NEGATIVE (Negative); Urine Mucus 4+ /HPF (None Seen); Urine Protein 2+ (Negative); Urine RBC 21-50 /HPF (None Seen); Urine Urobilinogen 1+ (Normal); Urine pH 6.5 (5.0-7.0)
[2023-01-05 20:52] LABS: Blood Morphology Comment NOT SEEN (NOT SEEN); Platelet Estimate DECR
[2023-01-05] MEDS: ATORVASTATIN 20 MG TAB PO SCH (21:00)
[2023-01-05] MEDS: GABAPENTIN 100 MG CAP PO SCH ×2 (21:00→23:00)
[2023-01-05] MEDS: APIXABAN 5 MG TABLET PO SCH ×2 (21:00→23:00)
[2023-01-05] MEDS: SPIRONOLACTONE 25 MG TABLET PO SCH (21:00)
[2023-01-05] MEDS: ROPINIROLE HCL 1 MG TAB PO SCH (21:00)
[2023-01-05] MEDS: METHYLPREDNISOLONE 40 MG INJ IV SCH (22:00)
[2023-01-05] MEDS ORDERED: GABAPENTIN 300 MG CAP ONE (22:16)
[2023-01-05] MEDS ORDERED: METHYLPREDNISOLONE 40 MG INJ ONE (22:16)
[2023-01-05 23:33] VITALS: BMI 55.5
[2023-01-06 00:25] LABS: Arterial Blood Carboxyhemoglob 1.7 % (0-1.5); Blood Gas Oxyhemoglobin 91.7 % (94-97); Blood O2 Saturation 94.4 % (92-98.5)
[2023-01-06] MEDS: METHYLPREDNISOLONE 40 MG INJ IV SCH (01:00)
[2023-01-06] MEDS ORDERED: METHYLPREDNISOLONE 40 MG INJ ONE ×2 (01:43→08:00)
[2023-01-06 02:28] LABS: Albumin 2.9 g/dL (3.4-5.0); Bilirubin Total 0.4 mg/dL (0.2-1.0); Magnesium 2.2 mg/dL (1.6-2.4); Phosphorus 3.3 mg/dL (2.5-4.9); Potassium 4.9 mEq/L (3.5-5.1); Protein, Total 6.3 g/dL (6.4-8.2)
[2023-01-06] MEDS ORDERED: PANTOPRAZOLE 40MG TABLET PO ONE (05:51)
[2023-01-06] MEDS: LEVOTHYROXINE SOD 0.088 MG TAB PO SCH (06:00)
[2023-01-06] MEDS: PANTOPRAZOLE 40MG TABLET PO SCH (06:30)
[2023-01-06 06:45] LABS: Arterial Blood Carboxyhemoglob 1.4 % (0-1.5); Blood Gas Oxyhemoglobin 92.7 % (94-97); Blood O2 Saturation 95.3 % (92-98.5)
[2023-01-06] MEDS ORDERED: APIXABAN 5 MG TABLET ONE (07:59)
[2023-01-06] MEDS ORDERED: acetaZOLAMIDE 250 MG TAB ONE (07:59)
[2023-01-06] MEDS ORDERED: GABAPENTIN 300 MG CAP ONE ×2 (07:59→13:57)
[2023-01-06] MEDS ORDERED: SPIRONOLACTONE 25 MG TABLET ONE (08:01)
[2023-01-06] MEDS: GABAPENTIN 300 MG CAP PO SCH ×3 (09:00→21:30)
[2023-01-06] MEDS: DULERA 200/5 (MOMETASONE/FORMOTEROL) INHALER IH SCH ×2 (09:00→21:43)
[2023-01-06] MEDS: ROFLUMILAST 500 MCG TABLET PO SCH (09:00)
[2023-01-06] MEDS ORDERED: METHYLPREDNISOLONE 40 MG INJ IV SCH (09:00)
[2023-01-06] MEDS: APIXABAN 5 MG TABLET PO SCH ×2 (09:00→21:30)
[2023-01-06] MEDS: SPIRONOLACTONE 25 MG TABLET PO SCH ×2 (09:00→21:31)
[2023-01-06] MEDS: acetaZOLAMIDE 250 MG TAB PO SCH (09:00)
[2023-01-06] MEDS ORDERED: ENOXAPARIN 40 MG/0.4 ML SQ SCH (09:00)
--- NOTE | 2023-01-06 11:36 | P.CNS ---
Date of Consult: 01/06/23 Reason for Consult: Respiratory distress Chief Complaint: Acute Respiratory Distress History of Present Illness: Patient is 62 years of age with terminal COPD recurrent hospital admissions apparently she had a significant decline in her pulse ox ended up here in the hospital patient is compliant with her medication has a slight cough no fever or chills Allergies No Known Allergies Allergy (Verified 10/19/22 22:27) Home Medications: Apixaban [Eliquis] 5 mg PO BID 10/19/22 Atorvastatin Calcium 20 mg PO BEDTIME 10/19/22 Gabapentin 300 mg PO TID 10/19/22 Levothyroxine [Synthroid*] 88 mcg PO [id number] 10/19/22 Roflumilast [Daliresp] 500 mcg PO DAILY 10/19/22 Ropinirole HCl 1 tab PO BEDTIME 10/19/22 acetaZOLAMIDE [Acetazolamide] 250 mg PO DAILY 10/19/22 clonazePAM [Clonazepam] 0.5 mg PO DAILY PRN 10/19/22 Pantoprazole [Protonix Tab*] 40 mg PO DAILYAC #30 tab 12/13/22 Spironolactone [Aldactone*] 25 mg PO BID #60 tab 12/13/22 predniSONE [Deltasone*] 10 mg PO DAILY #30 tab 12/13/22 Azithromycin Tab [Zithromax*] 500 mg PO DAILY tab 12/18/22 - Past Medical/Surgical History Diabetic: No -: Severe COPD, home oxygen/NIV,Pulmonary-Dr. Do -: Mild pulmonary hypertension -: Hypothyroidism -: Bipolar disorder -: Hypertension -: Chronic low back pain -: Obstructive sleep apnea -: GERD -: HLD -: GERD -: Appendectomy -: Psychosocial/ Personal History: She lives with a partner. She has 1 child. She is currently disabled. - Family History Father Medical History: Heart disease, Hypertension, Diabetes Notes: from CHF Mother Medical History: Heart disease, Hypertension, Diabetes Notes: from CHF Brother Medical History: Diabetes Sister Medical History: Heart disease, Diabetes Notes: from CHF - Social History Smoking Status: Unknown if ever smoked Alcohol use: No CD- Drugs: No Caffeine use: No Review of Systems 10-point ROS is otherwise unremarkable General: Weakness Respiratory: Cough, Shortness of Breath Physical Examination Temp Pulse Resp BP Pulse Ox 97.1 F 86 17 142/76 H 97 01/06/23 04:00 01/06/23 09:00 01/06/23 08:00 01/06/23 09:00 01/06/23 08:00 General: Alert, In no apparent distress, Mild distress Respiratory: Clear to auscultation bilaterally, Diminished Cardiovascular: No edema, Normal pulses, Regular rate/rhythm Laboratory Data (last 24 hrs) 01/05/23 14:21: PT 11.6, INR 1.05 01/05/23 14:21: WBC 6.90, Hgb 10.2 L, Hct 32.4 L, Plt Count 109 L 01/05/23 14:21: Sodium 139, Potassium 4.3, BUN 12, Creatinine 0.78, Glucose 115 H, Magnesium 2.1, Total Bilirubin 0.4, AST 6 L, ALT 12 L, Alkaline Phosphatase 91 - Problems (1) Acute exacerbation of chronic obstructive airways disease Onset Date: 05/09/15 Current Visit: No Status: Acute Plan: Patient is 62 years of age with terminal COPD recurrent hospitalizations compliant with her therapy at home admitted with a significant decline in her pulse ox we will continue to monitor off the BiPAP for now titrate sat to 90% patient has chronic hypoxemia hypercarbia and is on BiPAP at home plan to titrate sat to 90% ambulate possible discharge tomorrow labs reviewed mild an emia chest x-ray shows some interstitial changes
--- NOTE | 2023-01-06 12:38 | EKG ---
Test Date: 2023-01-05 Test Time: 13:33:43 Tea Taster: GABRIELA MEASUREMENT RESULTS: Intervals: Rate: 81 HI: QRSD: 84 QT: 370 QTc: 429 Spurger: P: HI: QRS: 146 T: 93 INTERPRETIVE STATEMENTS: Atrial fibrillation Septal infarct, age undetermined Abnormal ECG Compared to ECG 12/14/2022 03:54:59 Myocardial infarct finding now present Sinus rhythm no longer present Sinus arrhythmia no longer present Electronically Signed On 01-06-23 12:37:06 CDT by Maykel Posey
[2023-01-06] MEDS: FUROSEMIDE 20 MG/ 2ML VIAL IV SCH (17:00)
--- NOTE | 2023-01-06 17:16 | P.PN ---
Subjective Date of Service: 01/06/23 Chief Complaint: Acute Respiratory Distress She appears to be much improved this morning. She has been weaned off of BiPAP. She reports significant shortness of breath with exertion. She denies any chest pain or palpitations. Review of Systems 10-point ROS is otherwise unremarkable Respiratory: Cough, Dry, SOB with Excertion, Wheezing Physical Examination - Vital Signs Temperature: 98 F Blood Pressure: 146/82 Pulse: 82 Respirations: 22 Pulse Ox (%): 91 - Studies Laboratory Data (last 24 hrs) 01/05/23 14:21: WBC 6.90, Hgb 10.2 L, Hct 32.4 L, Plt Count 109 L Assessment And Plan - Plan - Physical Exam General: Alert, Oriented x3, No distress HEENT: Atraumatic, Mucous membr. moist/pink, Sclerae nonicteric Neck: JVD not distended Respiratory: Diminished, End-expiratory wheezes Cardiovascular: No edema, Regular rate/rhythm, No murmurs Gastrointestinal: Normal bowel sounds, Soft, Non-distended, No tenderness Musculoskeletal: No clubbing Integumentary: No rashes Neurological: Normal speech, Normal affect - Plan # Acute on Chronic Hypercapnic, Hypoxemic Respiratory Failure - likely secondary to a Chronic Obstructive Pulmonary Disease Exacerbation # Pulmonary Hypertension # Obstructive Sleep Apnea - Evaluation thus far: - Initial ABG = pH 7.23, PCO2 89.0, PO2 30.8 - Chest x-ray = "changes suggestive of central venous congestion or CHF. No focal pneumonia." - Management plan: - Consulted Pulmonary Medicine and spoke with Dr. Do - recommendations appreciated - Bronchodilators and steroids per Pulm - Continue home roflumilast, spironolactone, acetazolamide - May require portable NIV at home - appreciated Pulm recs - Started low-dose furosemide - monitor I/O - Consulted Respiratory Therapy - Supplemental oxygen to maintain SpO2 > 92% - Currently weaned off of BiPAP support - Encouraged incentive spirometry # Chronic Atrial Fibrillation - Rate-controlled without medication - Continue home apixaban # Dyslipidemia - Continue home atorvastatin # Hypothyroidism - Continue home levothyroxine # Chronic Low Back Pain with RLS? - Continue home gabapentin, ropinirole # Gastroesophageal Reflux Disease - Continue home pantoprazole # Bipolar Disorder # Hypertension - Continue home clonazepam to avoid benzodiazepine withdrawal Tarun Amaro M.D.
[2023-01-06] MEDS ORDERED: FUROSEMIDE 20 MG/ 2ML VIAL ONE (17:38)
[2023-01-06] MEDS ORDERED: ALBUTEROL 2.5 MG/3 ML NEB SOL NEB PRN (19:00)
[2023-01-06] MEDS: ROPINIROLE HCL 1 MG TAB PO SCH (21:30)
[2023-01-06] MEDS: ATORVASTATIN 20 MG TAB PO SCH (21:30)
[2023-01-06] MEDS: predniSONE 20 MG TAB PO SCH (21:31)
[2023-01-07 05:30] LABS: Arterial Blood Carboxyhemoglob 1.5 % (0-1.5); Blood Gas Oxyhemoglobin 92.5 % (94-97); Blood O2 Saturation 95.1 % (92-98.5)
[2023-01-07] MEDS: PANTOPRAZOLE 40MG TABLET PO SCH (05:38)
[2023-01-07] MEDS: LEVOTHYROXINE SOD 0.088 MG TAB PO SCH (05:38)
[2023-01-07 06:21] LABS: Potassium 4.6 mEq/L (3.5-5.1)
[2023-01-07 07:51] VITALS: BP 146/66; TEMP 97.2
--- NOTE | 2023-01-07 08:53 | P.DS ---
Admission Date: 01/05/23 Discharge Date: 01/07/23 Disposition: ROUTINE DISCHARGE Discharge Condition: GOOD Reason for Admission: Acute Respiratory Distress Consultations: 1. Pulmonology Hospital Course: DIAGNOSES: # Acute on Chronic Hypercapnic, Hypoxemic Respiratory Failure - likely secondary to a Chronic Obstructive Pulmonary Disease Exacerbation # Suspected Acute on Chronic Diastolic Congestive Heart Failure - improved # Pulmonary Hypertension # Obstructive Sleep Apnea # Chronic Atrial Fibrillation # Dyslipidemia # Hypothyroidism # Chronic Low Back Pain with RLS? # Gastroesophageal Reflux Disease # Bipolar Disorder # Hypertension HOSPITAL COURSE: Ms. Vikki Zamudio is a pleasant 62 year old female with a past medical history significant for chronic hypercapnic respiratory failure secondary to chronic obstructive pulmonary disease, pulmonary hypertension, chronic atrial fibrillation, dyslipidemia, hypothyroidism, gastroesophageal reflux disease, bipolar disorder, and hypertension who was admitted to the [facility] on 01/05/2023 for shortness of breath. She was admitted to the Medicine service. Upon further evaluation, she was found to have acute on chronic hypercapnic, hypoxemic respiratory failure secondary to a COPD exacerbation. Her chest x-ray revealed, "changes suggestive of central venous congestion or CHF. No focal pneumonia." She was treated with bronchodilators, steroids, furosemide, and BiPAP. Over the course of her hospitalization, her symptoms improved significantly to her baseline. Pulmonology was consulted and she was evaluated by Dr. Do. He has cleared her for discharge home with her home medications. She stated that she feels well and would like to be discharged home. On 01/07/2023, she was seen on morning rounds and deemed medically stable for discharge. She was discharged with instructions to schedule follow-up appointments with her PCP (Dr. Howard) and with Pulmonology (Dr. Do). She was given the opportunity to ask questions and reported no further questions. Furthermore, all questions were answered to the best of my ability. A copy of this discharge summary will be sent to the above providers to facilitate continuity of care. Today, I personally spent 25 minutes on his case, of which greater than 50% of the time was spent in patient education, counseling, and coordination of care as described above. - Physical Exam General: Alert, Oriented x3, No distress HEENT: Atraumatic, Mucous membr. moist/pink, Sclerae nonicteric Neck: JVD not distended Respiratory: Diminished, Clear to auscultation without wheezes, rhonchi, or rales Cardiovascular: No edema, Regular rate/rhythm, No murmurs Gastrointestinal: Normal bowel sounds, Soft, Non-distended, No tenderness Musculoskeletal: No clubbing Integumentary: No rashes Neurological: Normal speech, Normal affect Vital Signs/Physical Exam: Temp Pulse Resp BP Pulse Ox 97.2 F 55 16 146/66 H 94 01/07/23 07:49 01/07/23 07:49 01/07/23 07:49 01/07/23 07:49 01/07/23 07:49 Laboratory Data at Discharge: WBC 6.90 thou/uL (4.3-10.9) 01/05/23 14:21 Hgb 10.2 g/dL (12.0-15.0) L 01/05/23 14:21 Hct 32.4 % (36.0-45.0) L 01/05/23 14:21 Plt Count 109 thou/uL (152-406) L 01/05/23 14:21 PT 11.6 SECONDS (9.5-12.5) 01/05/23 14:21 INR 1.05 01/05/23 14:21 Sodium 136 mEq/L (136-145) 01/07/23 05:30 Potassium 4.6 mEq/L (3.5-5.1) 01/07/23 05:30 BUN 28 mg/dL (7-18) H 01/07/23 05:30 Creatinine 1.02 mg/dL (0.55-1.02) 01/07/23 05:30 Glucose 160 mg/dL (74-106) H 01/07/23 05:30 Phosphorus 3.3 mg/dL (2.5-4.9) 01/06/23 01:56 Magnesium 2.2 mg/dL (1.6-2.4) 01/06/23 01:56 Total Bilirubin 0.4 mg/dL (0.2-1.0) 01/06/23 01:56 AST 10 U/L (15-37) L 01/06/23 01:56 ALT 13 U/L (13-56) 01/06/23 01:56 Alkaline Phosphatase 93 U/L (45-117) 01/06/23 01:56 Home Medications: Apixaban [Eliquis] 5 mg PO BID 10/19/22 Atorvastatin Calcium 20 mg PO BEDTIME 10/19/22 Gabapentin 300 mg PO TID 10/19/22 Levothyroxine [Synthroid*] 88 mcg PO [id number] 10/19/22 Roflumilast [Daliresp] 500 mcg PO DAILY 10/19/22 Ropinirole HCl 1 tab PO BEDTIME 10/19/22 acetaZOLAMIDE [Acetazolamide] 250 mg PO DAILY 10/19/22 clonazePAM [Clonazepam] 0.5 mg PO DAILY PRN 10/19/22 Pantoprazole [Protonix Tab*] 40 mg PO DAILYAC #30 tab 12/13/22 Spironolactone [Aldactone*] 25 mg PO BID #60 tab 12/13/22 predniSONE [Deltasone*] 10 mg PO DAILY #30 tab 12/13/22 Physician Discharge Instructions: 1. Please call and schedule a follow-up appointment with your PCP (Dr. Howard) in 3-5 days 2. Please call and schedule a follow-up appointment with Pulmonology (Dr. Do) in 3-5 days Diet: AHA Activity: Fall precautions Followup: Isai Do MD [ACTIVE - CAN ADMIT] - (call to schedule an appointment in 3-5 days) Billy Howard DO [ACTIVE - CAN ADMIT] - (call to schedule an appointment in 3-5 days) Time spent managing pt's care (in minutes): 25
[2023-01-07] MEDS: SPIRONOLACTONE 25 MG TABLET PO SCH (08:56)
[2023-01-07] MEDS: APIXABAN 5 MG TABLET PO SCH (08:56)
[2023-01-07] MEDS: ROFLUMILAST 500 MCG TABLET PO SCH (08:57)
[2023-01-07] MEDS: GABAPENTIN 300 MG CAP PO SCH (08:57)
[2023-01-07] MEDS: DULERA 200/5 (MOMETASONE/FORMOTEROL) INHALER IH SCH (08:57)
[2023-01-07] MEDS: FUROSEMIDE 20 MG/ 2ML VIAL IV SCH (08:57)
[2023-01-07] MEDS: predniSONE 20 MG TAB PO SCH (08:57)
[2023-01-07] MEDS: acetaZOLAMIDE 250 MG TAB PO SCH (08:57)
[2023-01-07] MEDS ORDERED: clonazePAM 0.5 MG TAB PO SCH (09:00)
[2023-01-07 09:15] VITALS: O2SAT 94
== END 2023-01-07 10:05 | disposition home or self-care (01) | DRG 189 ==
LOC: ER 12:54 → ERHOLD 15:54 → 4TH 01-06 19:21
PROVIDERS: ADMIT Internal Medicine; ATTEND Internal Medicine
PROC: 5A09357 Assistance with Respiratory Ventilation, Less than 24 Consecutive Hours, Continuous Positive Airway Pressure (ICD-10-PCS; principal; 2023-01-05)
DX: J96.21 Acute and chronic respiratory failure with hypoxia (principal); I50.33 Acute on chronic diastolic (congestive) heart failure; J44.1 Chronic obstructive pulmonary disease with (acute) exacerbation; Z68.42 Body mass index [BMI] 45.0-49.9, adult; J96.22 Acute and chronic respiratory failure with hypercapnia; E66.9 Obesity, unspecified; I11.0 Hypertensive heart disease with heart failure; E03.9 Hypothyroidism, unspecified; I48.0 Paroxysmal atrial fibrillation; K21.9 Gastro-esophageal reflux disease without esophagitis; F31.9 Bipolar disorder, unspecified; G47.33 Obstructive sleep apnea (adult) (pediatric); E78.00 Pure hypercholesterolemia, unspecified; I27.20 Pulmonary hypertension, unspecified; G89.29 Other chronic pain; M54.50 Low back pain, unspecified; Z79.52 Long term (current) use of systemic steroids; Z90.49 Acquired absence of other specified parts of digestive tract; Z79.01 Long term (current) use of anticoagulants; Z79.890 Hormone replacement therapy; Z87.891 Personal history of nicotine dependence; Z79.899 Other long term (current) drug therapy; Z20.822 Contact with and (suspected) exposure to COVID-19
CPT/HCPCS: 0240U; 36415; 71045; 80048; 80053; 80076; 81001; 82805; 83605; 83735; 83880; 84100; 84484; 85025; 85610; 87040; 93005; 94010; 94660; 94760; 96374; 96375; 99285; J0696; J1940; J2920; J2930; J3535; J7512; J7614; J7644

== ENCOUNTER 2023-01-24 00:11 | Inpatient (IN) | payer OTHER ==
--- OUTSIDE RECORDS SUMMARY | 2023-01-24 00:22 | XMS REPORT | Continuity of Care Document ---
:1960 Author Organization [facility] t Address [address] [facility]. [address] [place] [address] Care Team Providers Name Role Phone Reena Moran Primary Care Physician Billy Howard Attending Clinician Unavailable GIAN BRUCE Attending Clinician Unavailable MARTIN LEBLANC Attending Clinician Unavailable Martin Leblanc MD Attending Clinician CLARA PATRICK Attending Clinician Unavailable CLARA PATRICK Attending Clinician Unavailable Doctor Unassigned, [place] Attending Clinician Unavailable JETHRO ZHAO Attending Clinician Unavailable Negra Grgeory Attending Clinician [phone] NEGRA DUNAWAY Attending Clinician Unavailable Sheryl Ca MD Attending Clinician Jethro Dodge MD Attending Clinician [phone] JETHRO DODGE Attending Clinician Unavailable Alex DIETRICH, Christa Lincoln Attending Clinician CHRISTA KING Attending Clinician Unavailable JESSE ARREDONDO Attending Clinician Unavailable Ronaldo DIETRICH, [place] Oates Attending Clinician David CARDONA, Viviana Person Attending Clinician Jeronimo Hogue MD Attending Clinician Christian DIETRICH, Julian Rose Attending Clinician Sammie Tarango MD Attending Clinician Jordin DIETRICH, [place] Attending Clinician Chu Marin MD Attending Clinician [phone] CHU MARIN Attending Clinician Unavailable Lizbeth [...] Number Effective Date Expiration Date S harshad [facility] [id number] 2012 PLUS 00:00:00 [place] [id number] 2019 [facility] 00:[facility]00 [facility] Problems Condition Condition Condition Status Onset Resolution Last Treating Co mments Source Name Details Category Date Date Treatment Clinician Date Acute on Acute on Disease Active Unive rs chronic chronic 2-17 [place] congest[place] congestive [place] dical heart heart Branch failure failure Respirator Respirator Disease Active U nivers y failure y failure 2-16 ity of 00:00: [address] Obesity Obesity Disease Active Univers (BMI (BMI 9-11 ity of 30-39.9) 30-39.9) 00:00: [address] Tobacco Tobacco Disease [facility] Medical [address] [place] [address] Hypoxemia Hypoxemia Disease Active [facility] Medical [address] [place] [address] COPD COPD Disease Recurre [facility] exacerbati exacerbati nce 6-05 Pema kes on on 00:00: [address] Acute Acute Disease Recurre [facility] hypercapni hypercapni nce 6-05 Pema kes c c 00:00: Medical respirator respirator 00 Ce nter y failure y failure Wears Wears Disease Active Univers partial partial ity of dentures dentures [facility] [id number] Severe Problem Common chronic Spirit obstructiv - [facility] e [facility] Hypertensi Hypertensi Problem C ommon on on [facility] Hypothyroi Hypothyroi Problem C ommon dism dism [facility] Counseling Tobacco Problem Comm on about abuse Spirit tobacco counseling - [facility] use [facility] Hyperlipid Hyperlipid Problem C ommon emia emia, [facility] type [facility] Chronic Chronic Problem Common pain pain Spirit syndrome syndrome - [facility] Bipolar Bipolar Problem Common disorder disorder [facility] [id number] Nasal Problem Common bleeding [facility] Essential Essential Problem Com mon hypertensi hypertensi Sp kiley on on [facility] [id number] History of Problem Co mmon congestive Spirit heart - CHI failure [facility] Pulmonary Pulmonary Problem Com mon hypertensi hypertensi Sp kiley on on, - [facility] Chronic Chronic Problem Common obstructiv obstructiv Sp kiley e e - [facility] pulmonary pulmonary St disease disease, [facility] unspecifie Medica l d COPD Center type [id number] Morbid Problem Common obesity [facility] - [facility] [id number] On Problem Common supplement Spirit al oxygen - CHI by nasal [facility] [id number] Body mass Problem Com mon index Spirit (BMI) - CHI 40.0-44.9, [facility] [id number] CPAP Problem Common (continuou Spirit s positive - [facility] airway St pressure) [facility] dependence Medica l [place] [id number] Nasal Problem Common congestion [facility] - [facility] Vaginal Vaginal Problem Common bleeding bleeding [facility] - [facility] Congestive Congestive Problem C ommon heart heart Spirit disease failure, - [facility] unspecifie [facility] d HF 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 [id number] SARS Problem Common pneumonia [facility] [id number] Other Problem Common chronic Spirit pain [facility] Allergies, Adverse Reactions, Alerts Allergy [...] codeine Active Unknown Common [facility] - [facility] Social History Social Habit Start Date Stop Date Quantity Comments Source History SDOH University o f Alcohol Frequency [place] M edical Branch History SDVA University o f Alcohol Std [place] Medical Drinks Branch History SDVA University o f Alcohol Binge [place] Medic al Branch History of Common Spirit - Tobacco Use [facility] Exposure to 2023-01-04 2023-01-14 Not sure University of SARS-CoV-2 00:00:00 12:54:00 [facility] (event) [place] Alcohol intake 2022-08-13 2022-08-13 0 /d University of 00:00:00 00:00:00 [facility] Tobacco use and 2022-06-07 2022-06-07 Smokeless tobacco Un iversity of exposure 00:00:00 00:00:00 non-user [facility] Tobacco Comment 2022-06-07 2022-06-07 1-1.5 packs a day, U niversity of 00:00:00 00:00:00 quit 2018 [facility] Alcohol Comment 2020-11-12 2020-11-12 occasionally Univers ity of 00:00:00 00:00:00 [facility] Sex Ass[birth year] At [birth year] [facility] 00:00:00 00:00:00 [facility] Smoking Status Start Date Stop Date Source Ex-smoker 2022-06-07 00:00:00 2022-06-07 00:00:00 [facility] Medications Ordered Filled Start Stop Current Ordering Indication Dosage Frequency Signature Comments Components Source Medication Medication Date Date Medication? Clinician (SIG) Name Name tiZANidine Yes [id number] 2mg Take 1 Univers 2 mg tablet 4-25 tablet by ity of 00:00: mouth 3 00 (three) Medical times Branch daily as needed (muscle pain). Diclofenac Yes [id number] Apply to Univers Epolamine 4-25 skin once ity o f (FLECTOR) 00:00[place] 1[place] % patch 00 needed Medica l (shoulder Branch pain). tiZANidine Yes [id number] 2mg Take 1 Univers 2 mg tablet 4-25 tablet by ity of 00:00: mouth 3 [place] 00 (three) Medical times Branch daily as needed (muscle pain). Diclofenac Yes [id number] Apply to Univers Epolamine 4-25 skin once ity o f (FLECTOR) 00:00[place] 1.[place] % patch 00 needed Medica l (shoulder Branch pain). traMADol 50 2022-0 2022- No 50mg Take 50 mg Univers mg tablet 11-26-07 by mouth 3 ity of 15:02: 00:00 (three) [place] 43 :00 times Medical daily. Branch traMADol 50 2022-0 2022- No 50mg Take 50 mg Univers mg tablet 11-26-07 by mouth 3 ity of 15:02: 00:00 (three) [place] 43 :00 times Medical daily. Branch gabapentin 2022-0 Yes [id number] 300mg Take 1 Univers 300 mg 3-07 capsule by ity of capsule 00:00: mouth in [place] [address] the Medical morning Branch and 1 capsule at noon and 1 capsule in the evening. Diclofenac 2022-0 Yes [id number] Apply to Univers Sodium 3-07 area(s) ity of (VOLTAREN) 00:00: daily. [place] 1 % gel 00 [facility] Branch gabapentin 2022-0 Yes [id number] 300mg Take 1 Univers 300 mg 3-07 capsule by ity of capsule 00:00: mouth in [place] [address] the Medical morning Branch and 1 capsule at noon and 1 capsule in the evening. Diclofenac 2023-0 Yes [id number] Apply to Univers Sodium 3-07 area(s) ity of (VOLTAREN) 00:00: daily. [place] 1 % gel 00 [facility] Branch gabapentin 3-0 Yes [id number] 300mg Take 1 Univers 300 mg 3-07 capsule by ity of capsule 00:00: mouth in [place] [address] the Medical morning [place] and 1 capsule at noon and 1 capsule in the evening. Diclofenac 2023-0 Yes [id number] Apply to Univers Sodium 3-07 area(s) ity of (VOLTAREN) 00:00: daily. [place] 1 % gel 00 [facility] Branch gabapentin 3-0 Yes [id number] 300mg Take 1 Univers 300 mg 3-07 capsule by ity of capsule 00:00: mouth in [place] [address] the Medical morning Branch and 1 capsule at noon and 1 capsule in the evening. Diclofenac 2023-0 Yes [id number] Apply to Univers Sodium 3-07 area(s) ity of (VOLTAREN) 00:00: daily. [place] 1 % gel 00 Medical Branch gabapentin 2023-0 Yes [id number] 300mg Take 1 Univers 300 mg 3-07 capsule by ity of capsule 00:00: mouth in [place] [address] the Medical morning Branch and 1 capsule at noon and 1 capsule in the evening. Diclofenac 2022-0 Yes [id number] Apply to Univers Sodium 3-07 area(s) ity of (VOLTAREN) 00:00: daily. [place] 1 % gel [facility] gabapentin 2022-0 Yes [id number] 300mg Take 1 Univers 300 mg 3-07 capsule by ity of capsule 00:00: mouth in [place] [address] the Medical morning Branch and 1 capsule at noon and 1 capsule in the evening. Diclofenac 2022-0 Yes [id number] Apply to Univers Sodium 3-07 area(s) ity of (VOLTAREN) 00:00: daily. [place] 1 % gel [facility] gabapentin 2022-0 Yes [id number] 300mg Take 1 Univers 300 mg 3-07 capsule by ity of capsule 00:00: mouth in [address] morning [place] and 1 capsule at noon and 1 capsule in the evening. Diclofenac 2022-0 Yes [id number] Apply to Univers Sodium 3-07 area(s) ity of (VOLTAREN) 00:00: daily. [place] 1 % gel [facility] Cefdinir Cefdinir 2021-09- No Cefdinir 300 MG 300 MG 2-21 12-31 300 MG 00:00: 00:00 00 :00 predniSONE predniSONE 2021-09- No QD predniSONE 20 MG 20 MG 2-21 12-26 20 MG 00:00: 00:00 00 :00 Diclofenac 2021-09 Yes [id number] Apply to Univers Sodium 1-22 area(s) ity of (VOLTAREN) 00:00: daily. [place] 1 % gel [facility] gabapentin 2021-09 Yes [id number] 100mg Take 1 Univers 100 mg 1-22 capsule by ity of capsule 00:00: mouth in [address] morning [place] and 1 capsule in the evening. Diclofenac 2021- Yes [id number] Apply to Univers Sodium 1-22 area(s) ity of (VOLTAREN) 00:00: daily. [place] 1 % gel [facility] gabapentin 2021-09 Yes [id number] 100mg Take 1 Univers 100 mg 1-22 capsule by ity of capsule 00:00: mouth in [address] [place] and 1 capsule in the evening. Diclofenac 2021- Yes [id number] Apply to Univers Sodium 1-22 area(s) ity of (VOLTAREN) 00:00: daily. [place] 1 % gel [facility] Branch gabapentin 2021- Yes [id number] 100mg Take 1 Univers 100 mg 1-22 capsule by ity of capsule 00:00: mouth in [place] [address] the [facility] morning [place] and 1 capsule in the evening. Diclofenac 2021-09 Yes [id number] Apply to Univers Sodium 1-22 area(s) ity of (VOLTAREN) 00:00: daily. [place] 1 % gel [facility] Branch gabapentin 2021-09 Yes [id number] 100mg Take 1 Univers 100 mg 1-22 capsule by ity of capsule 00:00: mouth in [address] morning [place] and 1 capsule in the evening. Diclofenac 2021-09 Yes [id number] Apply to Univers Sodium 1-22 area(s) ity of (VOLTAREN) 00:00: daily. [place] 1 % gel [facility] Branch gabapentin 2021- Yes [id number] 100mg Take 1 Univers 100 mg 1-22 capsule by ity of capsule 00:00: mouth in [address] morning [place] and 1 capsule in the evening. Diclofenac 2021-09 Yes [id number] Apply to Univers Sodium 1-22 area(s) ity of (VOLTAREN) 00:00: daily. [place] 1 % gel [facility] gabapentin 2021- Yes [id number] 100mg Take 1 Univers 100 mg 1-22 capsule by ity of capsule 00:00: mouth in [place] [address] the [facility] morning [place] and 1 capsule in the evening. Diclofenac 2021- Yes [id number] Apply to Univers Sodium 1-22 area(s) ity of (VOLTAREN) 00:00: daily. [place] 1 % gel 00 [facility] gabapentin 2021- Yes [id number] 100mg Take 1 Univers 100 mg 1-22 capsule by ity of capsule 00:00: mouth in [address] morning [place] and 1 capsule in the evening. Diclofenac 2021- Yes [id number] Apply to Univers Sodium 1-22 area(s) ity of (VOLTAREN) 00:00: daily. [place] 1 % gel 00 [facility] gabapentin 2021- Yes [id number] 100mg Take 1 Univers 100 mg 10-13 capsule by ity of capsule 00:00: mouth in [place] 00 the Medical morning Branch and 1 capsule in the evening. Diclofenac 2021-09- No [id number] Apply to Univers Sodium 10-13-07 area(s) ity of (VOLTAREN) 00:00: 00:[place]. [place] 1 % gel 00 :00 Medical Branch gabapentin 2021-09- No [id number] 100mg Take 1 Univers 100 mg 10-13- capsule by ity of capsule 00:00: 00:00 mouth in [place] 00 :00 the Medical morning Branch and 1 capsule in the evening. Diclofenac 2021-09- No [id number] Apply to Univers Sodium 10-13 area(s) ity of (VOLTAREN) 00:00: 00:[place]. [place] 1 % gel 00 :00 Medical Branch gabapentin 2021-09- No [id number] 100mg Take 1 Univers 100 mg 10-13 capsule by ity of capsule 00:00: 00:00 mouth in [place] 00 :00 the Medical morning Branch and 1 capsule in the evening. triamcinolo 2021-09- No [id number] 40mg Univers ne 10-05 ity of acetonide 19:00: 18:04 [place] (KENALOG) 00 :00 Medical injection Branch 40 mg triamcinolo 2021-09- No [id number] 40mg 40 mg, Univers ne 10-05 Intramuscu ity of acetonide 19:00: 18:04 [place], ONCE, [place] (KENALOG) 00 :00 1 dose, On Medi derrick injection Mon Branch 40 mg 08/05/22 at 1300, Routine triamcinolo 2021-09- No [id number] 40mg Univers ne 10-05 ity of acetonide 19:00: 18:04 [place] (KENALOG) 00 :00 Medical injection Branch 40 mg triamcinolo 2021-09- No [id number] 40mg 40 mg, Univers ne 10-05 Intramuscu ity of acetonide 19:00: 18:04 [place], [place]CE, [place] (KENALOG) 00 :00 1 dose, On Medi derrick injection Mon Branch 40 mg 08/05/22 at 1300, Routine methylPREDN 2021-0 2021- No [id number] 80mg U nivers ISolone 06-07 ity of acetate 19:30: 18:38 [place] (DEPO-MEDRO 00 :00 Medical L) Branch injection 80 mg methylPREDN 0 2021- No [id number] 80mg 80 mg, Univers ISolone 06-07 Intramuscu ity o f acetate 19:30: 18:38 [place], ONCE, [place] (DEPO-MEDRO 00 :00 1 dose, On Me dical L) Fri Branch injection 06/07/22 at 80 mg 1430, Routine methylPREDN 2021-0 2021- No [id number] 80mg U nivers ISolone 06-07 ity of acetate 19:30: 18:38 [place] (DEPO-MEDRO 00 :00 Medical L) Branch injection 80 mg methylPREDN 2021-0 2021- No [id number] 80mg 80 mg, Univers ISolone 06-07 Intramuscu ity o f acetate 19:30: 18:38 [place], ONCE, [place] (DEPO-MEDRO 00 :00 1 dose, On Me dical L) Fri Branch injection 06/07/22 at 80 mg 1430, Routine Kenalog Kenalog 0 No 40mg Common (Triamcinol (Triamcinol 7-21 S pirit one) one) 00:00: - [facility] Bupivicaine Bupivicaine 2021-0 No 2.5mg Common [place] 7-21 Spirit 00:00: - [facility] Kenalog Kenalog 2-0 No 40mg Common (Triamcinol (Triamcinol 7-21 S pirit one) one) 00:00: - [facility] Bupivicaine Bupivicaine 2-0 No 2.5mg Common [place] 7-21 Spirit 00:00: - [facility] Kenalog Kenalog 2-0 No 40mg Common (Triamcinol (Triamcinol 7-21 S pirit one) one) 00:00: - [facility] Bupivicaine Bupivicaine 2-0 No 2.5mg Common [place] 7-21 Spirit 00:00: - CHI [facility] Kenalog Kenalog 2-0 No 40mg Common (Triamcinol (Triamcinol 7-21 S pirit one) one) 00:00: - CHI 00 [facility] Bupivicaine Bupivicaine 2-0 No 2.5mg Common [place] 7-21 Spirit 00:00: - CHI 00 [facility] Kenalog Kenalog 2021-0 No 40mg Common (Triamcinol (Triamcinol 7-21 S pirit one) one) 00:00: - CHI 00 [facility] Bupivicaine Bupivicaine 2021-0 No 2.5mg Common [place] 7-21 Spirit 00:00: - CHI 00 [facility] Kenalog Kenalog 2021-0 No 40mg Common (Triamcinol (Triamcinol 7-21 S pirit one) one) 00:00: - CHI 00 [facility] Bupivicaine Bupivicaine 2021-0 No 2.5mg Common [place] 7-21 Spirit 00:00: - CHI 00 [facility] Kenalog Kenalog 2021-0 No 40mg Common (Triamcinol (Triamcinol 7-21 S pirit one) one) 00:00: - CHI 00 [facility] Bupivicaine Bupivicaine 2-0 No 2.5mg Common [place] 7-21 Spirit 00:00: - CHI 00 [facility] Kenalog Kenalog 2021-0 No 40mg Common (Triamcinol (Triamcinol 4-27 S pirit one) one) 00:00: - CHI 00 [facility] Lidocaine Lidocaine 2-0 No 10mg Com mon 01-16 Spirit 00:00: - CHI 00 [facility] Kenalog Kenalog 2-0 No 40mg Common (Triamcinol (Triamcinol 4-27 S pirit one) one) 00:00: - CHI 00 [facility] Lidocaine Lidocaine 2-0 No 10mg Com mon - Spirit 00:00: - CHI 00 [facility] Kenalog Kenalog 2-0 No 40mg Common (Triamcinol (Triamcinol 4-27 S pirit one) one) 00:00: - [facility] Lidocaine Lidocaine 2-0 No 10mg Com 01-16 Spirit 00:00: - [facility] Kenalog Kenalog 2-0 No 40mg Common (Triamcinol (Triamcinol 4-27 S pirit one) one) 00:00: - [facility] Lidocaine Lidocaine 2-0 No 10mg Com 01-16 Spirit 00:00: - CHI 00 [facility] Kenalog Kenalog 2-0 No 40mg Common (Triamcinol (Triamcinol 4-27 S pirit one) one) 00:00: - [facility] Lidocaine Lidocaine 2-0 No 10mg Com 01-16 Spirit 00:00: - [facility] Kenalog Kenalog 2-0 No 40mg Common (Triamcinol (Triamcinol 4-27 S pirit one) one) 00:00: - [facility] Lidocaine Lidocaine 2-0 No 10mg Com 01-16 Spirit 00:00: - CHI 00 [facility] Kenalog Kenalog 2-0 No 40mg Common (Triamcinol (Triamcinol 4-27 S pirit one) one) 00:00: - [facility] Lidocaine Lidocaine 2-0 No 10mg Com 01-16 Spirit 00:00: - [facility] Lidocaine Lidocaine 2-0 No 10mg Com 12-06 Spirit 00:00: - [facility] Kenalog Kenalog 2-0 No 40mg Common (Triamcinol (Triamcinol 3-17 S pirit one) one) 00:00: - [facility] Lidocaine Lidocaine 2-0 No 10mg Com 12-06 Spirit 00:00: - [facility] Kenalog Kenalog 2-0 No 40mg Common (Triamcinol (Triamcinol 3-17 S pirit one) one) 00:00: - [facility] Lidocaine Lidocaine 2-0 No 10mg Com 12-06 Spirit 00:00: - [facility] Kenalog Kenalog 2021-0 No 40mg Common (Triamcinol (Triamcinol 3-17 S pirit one) one) 00:00: - [facility] Lidocaine Lidocaine 2-0 No 10mg Com 12-06 Spirit 00:00: - [facility] Kenalog Kenalog 2021-0 No 40mg Common (Triamcinol (Triamcinol 3-17 S pirit one) one) 00:00: - [facility] Lidocaine Lidocaine 2021-0 No 10mg Com 12-06 Spirit 00:00: - [facility] Kenalog Kenalog 2021-0 No 40mg Common (Triamcinol (Triamcinol 3-17 S pirit one) one) 00:00: - [facility] Lidocaine Lidocaine 2-0 No 10mg Com 12-06 Spirit 00:00: - [facility] Kenalog Kenalog 2021-0 No 40mg Common (Triamcinol (Triamcinol 3-17 S pirit one) one) 00:00: - [facility] Lidocaine Lidocaine 2021-0 No 10mg Com 12-06 Spirit 00:00: - [facility] Kenalog Kenalog 2021-0 No 40mg Common (Triamcinol (Triamcinol 3-17 S pirit one) one) 00:00: - [facility] carvedilol Yes 3.125mg Take 3.125 Univers [...] Medical times Branch daily with meals. carvedilol 2020-0 Yes 3.125mg Take 3.125 Univers (COREG) 9-24 mg by ity of 3.125 mg 14:31: mouth 2 [place] tablet 41 (two) Medical times Branch daily with meals. carvedilol 2020-0 Yes 3.125mg Take 3.125 Univers (COREG) 9-24 mg by ity of 3.125 mg 14:31: mouth 2 [place] tablet 41 (two) Medical times Branch daily with meals. carvedilol 2020-0 Yes 3.125mg Take 3.125 Univers (COREG) 9-24 mg by ity of 3.125 mg 14:31: mouth 2 [place] tablet 41 (two) Medical times Branch daily with meals. carvedilol 2020-0 Yes 3.125mg Take 3.125 Univers (COREG) 9-24 mg by ity of 3.125 mg 14:31: mouth 2 [place] tablet 41 (two) Medical times Branch daily with meals. carvedilol 2020-0 Yes 3.125mg Take 3.125 Univers (COREG) 9-24 mg by ity of 3.125 mg 14:31: mouth 2 [place] tablet 41 (two) Medical times [place] daily with meals. carvedilol 0 Yes 3.125mg Take 3.125 Univers (COREG) 9-24 mg by ity of 3.125 mg 14:31: mouth 2 [place] tablet 41 (two) [facility] daily with meals. [facility] 0 Yes Univers 500 mcg 9-22 ity of tablet 00:00: [place] [facility] 2020-0 Yes Univers 500 mcg 9-22 ity of tablet 00:00: [place] [facility] 2020-0 Yes Univers 500 mcg 9-22 ity of tablet 00:00: [place] [facility] 2020-0 Yes Univers 500 mcg 9-22 ity of tablet 00:00: [place] [facility] 2020-0 Yes Univers 500 mcg 9-22 ity of tablet 00:00: [place] [facility] 2020-0 Yes Univers 500 mcg 9-22 ity of tablet 00:00: [address] 2020-0 Yes Univers 500 mcg 9-22 ity of tablet 00:00: [address] 2020-0 Yes Univers 500 mcg 9-22 ity of tablet 00:00: [place] [facility] 2020-0 Yes Univers 500 mcg 9-22 ity of tablet 00:00: [address] 2020-0 Yes Univers 500 mcg 9-22 ity of tablet 00:00: [address] 2020-0 Yes Univers 500 mcg 9-22 ity of tablet 00:00: [place] [facility] 2020-0 Yes Univers 500 mcg 9-22 ity of tablet 00:00: [address] 2020-0 Yes Univers 500 mcg 9-22 ity of tablet 00:00: [place] [facility] 2020-0 Yes Univers 500 mcg 9-22 ity of tablet 00:00: [address] 2020-0 Yes Univers 500 mcg 9-22 ity of tablet 00:00: [place] [facility] 2020-0 Yes Univers 500 mcg 9-22 ity of tablet 00:00: [address] 2020-0 Yes Univers 500 mcg 9-22 ity of tablet 00:00: [place] [facility] 2021-0 Yes Univers 500 mcg 9-22 ity of tablet 00:00: [place] [facility] 2021-0 Yes Univers 500 mcg 9-22 ity of tablet 00:00: [place] [facility] 2021-0 Yes Univers 500 mcg 9-22 ity of tablet 00:00: [place] [facility] 2021-0 Yes Univers 500 mcg 9-22 ity of tablet 00:00: [place] [facility] 2021-0 Yes Univers 500 mcg 9-22 ity of tablet 00:00: [place] [facility] Branch predniSONE 1-0 Yes 10mg Take 10 mg U nivers 10 mg 8-31 by mouth ity of tablet 00:00: daily. [place] [facility] predniSONE 1-0 Yes 10mg Take 10 mg U nivers 10 mg 8-31 by mouth ity of tablet 00:00: daily. [place] [facility] predniSONE 1-0 Yes 10mg Take 10 mg U nivers 10 mg 8-31 by mouth ity of tablet 00:00: daily. [place] [facility] predniSONE 1-0 Yes 10mg Take 10 mg U nivers 10 mg 8-31 by mouth ity of tablet 00:00: daily. [place] [facility] Branch predniSONE 2021-0 2022- No 10mg Take 10 mg Univers 10 mg 8-31 11-14 by mouth ity of tablet 00:00: 00:00 daily. [place] 00 :00 [facility] Branch predniSONE 2021-0 2022- No 10mg Take 10 mg Univers 10 mg 8-31 11-14 by mouth ity of tablet 00:00: 00:00 daily. [place] 00 :00 Medical Branch predniSONE 2021-0 Yes TAKE 1 Unive rs 20 mg 8-26 TABLET BY ity of tablet 00:00: MOUTH [place] TWICE Medical DAILY FOR Branch 7 DAYS THEN 1 TABLET FOR 7 DAYS predniSONE 2021-0 Yes TAKE 1 [facility] 20 mg 8-26 TABLET BY it[facility] of tablet 00:00: MOUTH [place] TWICE Medical DAILY FOR Branch 7 DAYS THEN 1 TABLET FOR 7 DAYS predniSONE 1-0 Yes TAKE 1 [facility] 20 mg 8-26 TABLET BY ity of tablet 00:00: MOUTH [place] TWICE Medical DAILY FOR Branch 7 DAYS THEN 1 TABLET FOR 7 DAYS predniSONE 2020-0 Yes TAKE 1 [facility] 20 mg 8-26 TABLET BY ity of tablet 00:00: MOUTH [place] 00 TWICE Medical DAILY FOR Branch 7 [...] CAPSULE BY ity of capsule 00:00: MOUTH [place] 00 THREE Medical TIMES Branch DAILY NEEDED FOR COUGH fluconazole Yes 200mg Take 200 U nivers 200 mg 8-25 mg by ity of tablet 00:00: mouth [place] 00 every Medical morning. Branch POLY-IRON Yes Take by [facility] 150 mg iron 8-25 mouth ity of capsule 00:00: daily. [place] [facility] LIDOCAINE Yes TAKE 15ML [facility] vers VISCOUS 2 % 8-25 BY MOUTH ity of solution 00:00: THREE [place] 00 TIMES Medical DAILY Branch NEEDED FOR SORE THROAT benzonatate Yes TAKE 1 [facility] ers 100 mg 8-25 CAPSULE BY ity of capsule 00:00: MOUTH [place] [address] THREE Medical TIMES Branch DAILY NEEDED FOR COUGH fluconazole 0 Yes 200mg Take 200 U nivers 200 mg 8-25 mg by ity of tablet 00:00: [facility] 00 every Medical morning. Branch POLY-IRON Yes Take by [facility] rs 150 mg iron 8-25 mouth ity of capsule 00:00: daily. [place] [facility] LIDOCAINE 0 Yes TAKE 15ML Uni vers VISCOUS 2 % 8-25 BY MOUTH ity of solution 00:00: THREE [place] 00 TIMES Medical DAILY Branch NEEDED FOR SORE THROAT benzonatate Yes TAKE 1 Univ ers 100 mg 8-25 CAPSULE BY ity of capsule 00:00: MOUTH [place] [address] THREE Medical TIMES Branch DAILY NEEDED FOR COUGH fluconazole 0 Yes 200mg Take 200 U nivers 200 mg 8-25 mg by ity of tablet 00:00: mouth [place] every Medical morning. Branch POLY-IRON 2020-0 Yes Take by [facility] 150 mg iron 8-25 mouth ity of capsule 00:00: daily. [place] [facility] LIDOCAINE 2020-0 Yes TAKE 15ML [facility] vers VISCOUS 2 % 8-25 BY MOUTH ity of solution 00:00: THREE [place] 00 TIMES Medical DAILY Branch NEEDED FOR SORE THROAT benzonatate 2020-0 Yes TAKE 1 [facility] ers 100 mg 8-25 CAPSULE BY ity of capsule 00:00: MOUTH [place] THREE Medical TIMES Branch DAILY NEEDED FOR COUGH fluconazole 2020-0 Yes 200mg Take 200 U nivers 200 mg 8-25 mg by ity of tablet 00:00: mouth [place] every Medical morning. Branch POLY-IRON 2020-0 Yes Take by [facility] 150 mg iron 8-25 mouth ity of capsule 00:00: daily. [place] [facility] LIDOCAINE 2020-0 Yes TAKE 15ML [facility] vers VISCOUS 2 % 8-25 BY MOUTH ity of solution 00:00: THREE [place] 00 TIMES Medical DAILY Branch NEEDED FOR SORE THROAT benzonatate 0 Yes TAKE 1 [facility] ers 100 mg 8-25 CAPSULE BY ity of capsule 00:00: MOUTH [place] THREE Medical TIMES Branch DAILY NEEDED FOR COUGH fluconazole 2020-0 Yes 200mg Take 200 U nivers 200 mg 8-25 mg by ity of tablet 00:00: mouth [place] every Medical morning. Branch POLY-IRON 2020-0 Yes Take by [facility] rs 150 mg iron 8-25 mouth ity of capsule 00:00: daily. [place] [facility] LIDOCAINE 2020-0 Yes TAKE 15ML Uni vers VISCOUS 2 % 8-25 BY MOUTH ity of solution 00:00: THREE [place] 00 TIMES Medical DAILY Branch NEEDED FOR SORE THROAT benzonatate 0 Yes TAKE 1 Univ ers 100 mg 8-25 CAPSULE BY ity of capsule 00:00: MOUTH [place] [address] THREE Medical TIMES Branch DAILY NEEDED FOR COUGH fluconazole 2020-0 Yes 200mg Take 200 U nivers 200 mg 8-25 mg by ity of tablet 00:00: mouth [place] [address] every Medical morning. Branch POLY-IRON 2020-0 Yes Take by [facility] rs 150 mg iron 8-25 mouth ity of capsule 00:00: daily. [place] [facility] LIDOCAINE 2020-0 Yes TAKE 15ML [facility] vers VISCOUS 2 % 8-25 BY MOUTH ity of solution 00:00: THREE TIMES Medical DAILY Branch NEEDED FOR SORE THROAT benzonatate 2020-0 Yes TAKE 1 [facility] ers 100 mg 8-25 CAPSULE BY ity of capsule 00:00: MOUTH THREE Medical TIMES Branch DAILY NEEDED FOR COUGH fluconazole 2020-0 Yes 200mg Take 200 U nivers 200 mg 8-25 mg by ity of tablet 00:00: mouth [place] every Medical morning. Branch POLY-IRON 2020-0 Yes Take by [facility] rs 150 mg iron 8-25 mouth ity of capsule 00:00: daily. Medical Branch LIDOCAINE 2020-0 Yes TAKE 15ML Uni vers VISCOUS 2 % 8-25 BY MOUTH ity of solution 00:00: [place] TIMES Medical DAILY Branch NEEDED FOR SORE THROAT benzonatate 2020-0 Yes TAKE 1 [facility] ers 100 mg 8-25 CAPSULE BY ity of capsule 00:00: MOUTH THREE Medical TIMES Branch DAILY NEEDED FOR COUGH fluconazole 2020-0 Yes 200mg Take 200 U nivers 200 mg 8-25 mg by ity of tablet 00:00: mouth [place] every Medical morning. Branch POLY-IRON 2020-0 Yes Take by [facility] rs 150 mg iron 8-25 mouth ity of capsule 00:00: daily. Medical Branch LIDOCAINE 2020-0 Yes TAKE 15ML Uni vers VISCOUS 2 % 8-25 BY MOUTH ity of solution 00:00: THREE [place] TIMES Medical DAILY Branch NEEDED FOR SORE THROAT benzonatate 2020-0 Yes TAKE 1 Univ ers 100 mg 8-25 CAPSULE BY ity of capsule 00:00: MOUTH [place] THREE Medical TIMES Branch DAILY NEEDED FOR COUGH fluconazole 2020-0 Yes 200mg Take 200 U nivers 200 mg 8-25 mg by ity of tablet 00:00: mouth [place] every Medical morning. Branch POLY-IRON 2020-0 Yes Take by [facility] rs 150 mg iron 8-25 mouth ity of capsule 00:00: daily. Medical Branch LIDOCAINE 2020-0 Yes TAKE 15ML Uni vers VISCOUS 2 % 8-25 BY MOUTH ity of solution 00:00: THREE [place] TIMES Medical DAILY Branch NEEDED FOR SORE THROAT benzonatate 2020-0 Yes TAKE 1 Univ ers 100 mg 8-25 CAPSULE BY ity of capsule 00:00: MOUTH THREE Medical TIMES Branch DAILY NEEDED FOR COUGH fluconazole 2020-0 Yes 200mg Take 200 U nivers 200 mg 8-25 mg by ity of tablet 00:00: mouth [place] every Medical morning. Branch POLY-IRON 2020-0 Yes Take by [facility] rs 150 mg iron 8-25 mouth ity of capsule 00:00: daily. [place] [facility] LIDOCAINE 2020-0 Yes TAKE 15ML Uni vers VISCOUS 2 % 8-25 BY MOUTH ity of solution 00:00: THREE [place] TIMES Medical DAILY Branch NEEDED FOR SORE THROAT benzonatate 0 Yes TAKE 1 Univ ers 100 mg 8-25 CAPSULE BY ity of capsule 00:00: MOUTH [place] THREE Medical TIMES Branch DAILY NEEDED FOR COUGH fluconazole 2020-0 Yes 200mg Take 200 U nivers 200 mg 8-25 mg by ity of tablet 00:00: mouth [place] every Medical morning. Branch POLY-IRON 2020-0 Yes Take by [facility] rs 150 mg iron 8-25 mouth ity of capsule 00:00: daily. [place] [facility] LIDOCAINE 2020-0 Yes TAKE 15ML Uni vers VISCOUS 2 % 8-25 BY MOUTH ity of solution 00:00: [place] TIMES Medical DAILY Branch NEEDED FOR SORE THROAT benzonatate 2020-0 Yes TAKE 1 Univ ers 100 mg 8-25 CAPSULE BY ity of capsule 00:00: MOUTH [place] THREE Medical TIMES Branch DAILY NEEDED FOR COUGH fluconazole 2020-0 Yes 200mg Take 200 U nivers 200 mg 8-25 mg by ity of tablet 00:00: [facility] every Medical morning. Branch POLY-IRON 2020-0 Yes Take by Unive rs 150 mg iron 8-25 mouth ity of capsule 00:00: daily. [place] [facility] LIDOCAINE 2020-0 Yes TAKE 15ML Uni vers VISCOUS 2 % 8-25 BY MOUTH ity of solution 00:00: THREE [place] TIMES Medical DAILY Branch NEEDED FOR SORE THROAT benzonatate 2020-0 Yes TAKE 1 Univ ers 100 mg 8-25 CAPSULE BY ity of capsule 00:00: MOUTH [place] THREE Medical TIMES Branch DAILY NEEDED FOR COUGH fluconazole 2020-0 Yes 200mg Take 200 U nivers 200 mg 8-25 mg by ity of tablet 00:00: mouth [place] every Medical morning. Branch POLY-IRON 2021-0 Yes Take by [facility]ive rs 150 mg iron 8-25 mouth ity of capsule 00:00: daily. [place] [facility] LIDOCAINE 2020-0 Yes TAKE 15ML Uni vers VISCOUS 2 % 8-25 BY MOUTH ity of solution 00:00: THREE [place] TIMES Medical DAILY Branch NEEDED FOR SORE THROAT benzonatate 2020-0 Yes TAKE 1 Univ ers 100 mg 8-25 CAPSULE BY ity of capsule 00:00: MOUTH [place] THREE Medical TIMES Branch DAILY NEEDED FOR COUGH fluconazole 2020-0 Yes 200mg Take 200 U nivers 200 mg 8-25 mg by ity of tablet 00:00: mouth [place] every Medical morning. Branch POLY-IRON 2020-0 Yes Take by Unive rs 150 mg iron 8-25 mouth ity of capsule 00:00: daily. [place] [facility] LIDOCAINE 2020-0 Yes TAKE 15ML Uni vers VISCOUS 2 % 8-25 BY MOUTH ity of solution 00:00: THREE [place] TIMES Medical DAILY Branch NEEDED FOR SORE THROAT benzonatate 2020-0 Yes TAKE 1 Univ ers 100 mg 8-25 CAPSULE BY ity of capsule 00:00: MOUTH [place] [address] THREE Medical TIMES Branch DAILY NEEDED FOR COUGH fluconazole 2020-0 Yes 200mg Take 200 U nivers 200 mg 8-25 mg by ity of tablet 00:00: mouth [place] [address] every Medical morning. Branch POLY-IRON 2020-0 Yes Take by Unive rs 150 mg iron 8-25 mouth ity of capsule 00:00: daily. [place] [address] Medical Branch LIDOCAINE 2020-0 Yes TAKE 15ML Uni vers VISCOUS 2 % 8-25 BY MOUTH ity of solution 00:00: THREE [place] TIMES Medical DAILY Branch NEEDED FOR SORE THROAT LIDOCAINE 2020-0 Yes TAKE 15ML Uni vers VISCOUS 2 % 8-25 BY MOUTH ity of solution 00:00: [place] TIMES Medical DAILY Branch NEEDED FOR SORE THROAT LIDOCAINE 2020-0 Yes TAKE 15ML Uni vers VISCOUS 2 % 8-25 BY MOUTH ity of solution 00:00: THREE [place] TIMES Medical DAILY Branch NEEDED FOR SORE THROAT LIDOCAINE 2020-0 Yes TAKE 15ML Uni vers VISCOUS 2 % 8-25 BY MOUTH ity of solution 00:00: THREE [place] TIMES Medical DAILY Branch NEEDED FOR SORE THROAT LIDOCAINE Yes TAKE 15ML Uni vers VISCOUS 2 % 8-25 BY MOUTH ity of solution 00:00: THREE [place] 00 TIMES Medical DAILY Branch NEEDED FOR SORE THROAT LIDOCAINE Yes TAKE 15ML Uni vers VISCOUS 2 % 8-25 BY MOUTH ity of solution 00:00: THREE [place] 00 TIMES Medical DAILY Branch NEEDED FOR SORE THROAT LIDOCAINE Yes TAKE 15ML Uni vers VISCOUS 2 % 8-25 BY MOUTH ity of solution 00:00: THREE [place] 00 TIMES Medical DAILY Branch NEEDED FOR SORE THROAT LIDOCAINE Yes TAKE 15ML Uni vers VISCOUS 2 % 8-25 BY MOUTH ity of solution 00:00: THREE [place] 00 TIMES Medical DAILY Branch NEEDED FOR SORE THROAT benzonatate 2022- No TAKE 1 Uni vers 100 mg 8-25 03-07 CAPSULE BY ity of capsule 00:00: 00:00 MOUTH [place] 00 :00 THREE Medical TIMES Branch DAILY NEEDED FOR COUGH fluconazole 2022- No 200mg Take 1 Un merry 200 mg 8-25 03-07 tablet by ity of tablet 00:00: 00:00 mouth [place] 00 :00 every Medical morning. Branch POLY-IRON 2022- No Take by [facility] [place] [place] ers 150 mg iron 8-25 03-07 mouth ity of capsule 00:00: 00:00 daily. [place] 00 :00 Medical Branch benzonatate 2022- No TAKE 1 Uni vers 100 mg 8-25 03-07 CAPSULE BY ity of capsule 00:00: 00:00 MOUTH [place] 00 :00 THREE Medical TIMES Branch DAILY NEEDED FOR COUGH fluconazole 2022- No 200mg Take 1 Un merry 200 mg 8-25 03-07 tablet by ity of tablet 00:00: 00:00 mouth [place] 00 :00 every Medical morning. Branch POLY-IRON 2022- No Take by [facility] [place] [place] ers 150 mg iron 8-25 03-07 mouth ity of capsule 00:00: 00:00 daily. [place] 00 :00 Medical Branch acetaZOLAMI Yes 250mg Take 250 U [...] ity o f tablet 00:00: mouth in [place] 00 the Medical morning Branch and 1 tablet in the evening. ELIQUIS 5 0 Yes 5mg Take 1 Univer s mg tablet 7-28 tablet by ity o f 00:00: mouth in [place] 00 the Medical morning Branch and 1 tablet in the evening. acetaZOLAMI 2021-0 Yes 250mg Take 1 Uni vers DE 250 mg 7-28 tablet by ity o f tablet 00:00: mouth in [place] 00 the Medical morning Branch and 1 tablet in the evening. ELIQUIS 5 2021-0 Yes 5mg Take 1 Univer s mg tablet 7-28 tablet by ity o f 00:00: mouth in [place] 00 the Medical morning Branch and 1 tablet in the evening. acetaZOLAMI 2021-0 Yes 250mg Take 1 Uni vers DE 250 mg 7-28 tablet by ity o f tablet 00:00: mouth in [place] 00 the Medical morning Branch and 1 tablet in the evening. ELIQUIS 5 2021-0 Yes 5mg Take 1 Univer s mg tablet 7-28 tablet by ity o f 00:00: mouth in [place] 00 the Medical morning Branch and 1 tablet in the evening. acetaZOLAMI 1-0 Yes 250mg Take 1 Uni vers DE 250 mg 7-28 tablet by ity o f tablet 00:00: mouth in [place] 00 the Medical morning Branch and 1 tablet in the evening. ELIQUIS 5 1-0 Yes 5mg Take 1 Univer s mg tablet 7-28 tablet by ity o f 00:00: mouth in [place] 00 the Medical morning Branch and 1 tablet in the evening. acetaZOLAMI 1-0 Yes 250mg Take 1 Uni vers DE 250 mg 7-28 tablet by ity o f tablet 00:00: mouth in [place] 00 the Medical morning Branch and 1 tablet in the evening. ELIQUIS 5 2021-0 Yes 5mg Take 1 Univer s mg tablet 7-28 tablet by ity o f 00:00: mouth in [place] 00 the Medical morning Branch and 1 tablet in the evening. acetaZOLAMI 1-0 Yes 250mg Take 1 Uni vers DE 250 mg 7-28 tablet by ity o f tablet 00:00: mouth in [place] 00 the Medical morning Branch and 1 tablet in the evening. ELIQUIS 5 2021-0 Yes 5mg Take 1 Univer s mg tablet 7-28 tablet by ity o f 00:00: mouth in [place] 00 the Medical morning Branch and 1 tablet in the evening. acetaZOLAMI 2021-0 Yes 250mg Take 1 Uni vers DE 250 mg 7-28 tablet by ity o f tablet 00:00: mouth in [place] 00 the Medical morning Branch and 1 tablet in the evening. ELIQUIS 5 Yes 5mg Take 1 Univer s mg tablet - tablet by ity o f 00:00: mouth in [place] 00 the Medical morning Branch and 1 tablet in the evening. docusate 2022- No TAKE 2 Univer s 100 mg 04-18- CAPSULES ity of capsule 00:00: 00:00 BY MOUTH [place] 00 :00 TWICE Medical DAILY. Branch nystatin 2022- No SHAKE [facility] 100,000 04-18-07 LIQUID AND ity o f unit/mL 00:00: 00:00 TAKE 5 ML [place] suspension 00 :00 BY MOUTH Medic al THREE Branch TIMES DAILY zinc 2022- No 220mg Take 220 [facility] sulfate 50 04-18 03-07 mg by ity of mg zinc 00:00: 00:00 mouth [place] (220 mg) 00 :00 daily. Medical capsule Branch docusate 2022- No TAKE 2 Univer s 100 mg 04-18-07 CAPSULES ity of capsule 00:00: 00:00 BY MOUTH [place] 00 :00 TWICE Medical DAILY. Branch nystatin 2022- No SHAKE [facility] 100,000 04-18-07 LIQUID AND ity o f unit/mL 00:00: 00:00 TAKE 5 ML [place] suspension 00 :00 BY MOUTH Medic al THREE Branch TIMES DAILY zinc 2022- No 220mg Take 220 [facility] sulfate 50 04-18 03-07 mg by ity of mg zinc 00:00: 00:00 mouth [place] (220 mg) 00 :00 daily. Medical capsule Branch Omeprazole Omeprazole No [...] 4-02 20 MG 00:00: 00 albuterol Yes 2{puff} Inhale 2 U nivers [...] Wheezing solution or Shortness of Breath. albuterol 2020-0 Yes 2{puff} Inhale 2 U nivers (PROAIR [...] Wheezing solution or Shortness of Breath. albuterol 2020-0 Yes 2{puff} Inhale 2 U nivers (PROAIR 2-25 Puffs ity of HFA) 90 16:35: every 6 [place] mcg/actuati 55 (six) Medical on inhaler hours as Branc h needed for Wheezing or Shortness of Breath. atorvastati 0 Yes 20mg Take 20 mg Univers n 20 mg 2-25 by mouth ity of tablet 16:35: at [place] 55 bedtime. Medical Branch clonazePAM 2020-0 Yes .5mg Take 0.5 Uni vers 0.5 [...] mouth as [place] 55 needed. Medical Branch umkeniu Yes Inhale. Uni vers m-vilantero 2-25 ity [...] nebulizer Wheezing solution or Shortness of Breath. guaiFENesin 0 Yes [id number] 100mg Take 5 mL [facility] 100 mg/5 mL 2-25 by mouth ity of solution 00:00: every 4 [place] 00 (four) Medical hours as Branch needed for Cough. furosemide 0 Yes [id number] 40mg Take 2 [facility] 20 mg 2-25 tablets by ity of tablet 00:00: mouth [place] 00 daily. Medical Branch guaiFENesin 0 Yes [id number] 100mg Take 5 mL [facility] 100 mg/5 mL 2-25 by mouth ity of solution 00:00: every 4 [place] 00 (four) Medical hours as Branch needed for Cough. furosemide 0 Yes [id number] 40mg Take 2 [facility] 20 mg 2-25 tablets by ity of tablet 00:00: mouth [place] 00 daily. Medical Branch guaiFENesin 0 Yes [id number] 100mg Take 5 mL [facility] 100 mg/5 mL 2-25 by mouth ity of solution 00:00: every 4 [place] 00 (four) Medical hours as Branch needed for Cough. furosemide 2020-0 Yes [id number] 40mg Take 2 [facility] 20 mg 2-25 tablets by ity of tablet 00:00: mouth [place] 00 daily. Medical Branch guaiFENesin 0 Yes [id number] 100mg Take 5 mL [facility] 100 mg/5 mL 2-25 by mouth ity of solution 00:00: every 4 [place] 00 (four) Medical hours as Branch needed for Cough. furosemide 2020-0 Yes [id number] 40mg Take 2 [facility] 20 mg 2-25 tablets by ity of tablet 00:00: mouth [place] 00 daily. Medical Branch guaiFENesin 2020-0 Yes [id number] 100mg Take 5 mL [facility] 100 mg/5 mL 2-25 by mouth ity of solution 00:00: every 4 [place] 00 (four) Medical hours as Branch needed for Cough. furosemide 2020-0 Yes [id number] 40mg Take 2 [facility] 20 mg 2-25 tablets by ity of tablet 00:00: mouth [place] 00 daily. Medical Branch guaiFENesin 2020-0 Yes [id number] 100mg Take 5 mL [facility] 100 mg/5 mL 2-25 by mouth ity of solution 00:00: every 4 [place] 00 (four) Medical hours as Branch needed for Cough. furosemide 2020-0 Yes [id number] 40mg Take 2 [facility] 20 mg 2-25 tablets by ity of tablet 00:00: mouth [place] 00 daily. Medical Branch guaiFENesin 2020-0 Yes [id number] 100mg Take 5 mL [facility] 100 mg/5 mL 2-25 by mouth ity of solution 00:00: every 4 [place] 00 (four) Medical hours as Branch needed for Cough. furosemide 2020-0 Yes [id number] 40mg Take 2 [facility] 20 mg 2-25 tablets by ity of tablet 00:00: mouth [place] 00 daily. Medical Branch guaiFENesin 2020-0 Yes [id number] 100mg Take 5 mL [facility] 100 mg/5 mL 2-25 by mouth ity of solution 00:00: every 4 [place] 00 (four) Medical hours as Branch needed for Cough. furosemide 2020-0 Yes [id number] 40mg Take 2 [facility] 20 mg 2-25 tablets by ity of tablet 00:00: mouth [place] 00 daily. Medical Branch guaiFENesin 2020-0 Yes [id number] 100mg Take 5 mL [facility] 100 mg/5 mL 2-25 by mouth ity of solution 00:00: every 4 [place] 00 (four) Medical hours as Branch needed for Cough. furosemide 2020-0 Yes [id number] 40mg Take 2 [facility] 20 mg 2-25 tablets by ity of tablet 00:00: mouth [place] 00 daily. Medical Branch guaiFENesin 2020-0 Yes [id number] 100mg Take 5 mL [facility] 100 mg/5 mL 2-25 by mouth ity of solution 00:00: every 4 [place] 00 (four) Medical hours as Branch needed for Cough. furosemide 2020-0 Yes [id number] 40mg Take 2 [facility] 20 mg 2-25 tablets by ity of tablet 00:00: mouth [place] 00 daily. Medical Branch guaiFENesin 2020-0 Yes [id number] 100mg Take 5 mL [facility] 100 mg/5 mL 2-25 by mouth ity of solution 00:00: every 4 [place] 00 (four) Medical hours as Branch needed for Cough. furosemide 2020-0 Yes [id number] 40mg Take 2 [facility] 20 mg 2-25 tablets by ity of tablet 00:00: mouth [place] 00 daily. Medical Branch aiFENesin 2020-0 Yes [id number] 100mg Take 5 mL [facility] 100 mg/5 mL 2-25 by mouth ity of solution 00:00: every 4 [place] 00 (four) Medical hours as Branch needed for Cough. furosemide 2020-0 Yes [id number] 40mg Take 2 [facility] 20 mg 2-25 tablets by ity of tablet 00:00: mouth [place] 00 daily. Medical Branch aiFENesin 2020-0 Yes [id number] 100mg Take 5 mL [facility] 100 mg/5 mL 2-25 by mouth ity of solution 00:00: every 4 [place] 00 (four) Medical hours as Branch needed for Cough. furosemide 2020-0 Yes [id number] 40mg Take 2 [facility] 20 mg 2-25 tablets by ity of tablet 00:00: mouth [place] 00 daily. Medical Branch aiFENesin 2020-0 Yes [id number] 100mg Take 5 mL [facility] 100 mg/5 mL 2-25 by mouth ity of solution 00:00: every 4 [place] 00 (four) Medical hours as Branch needed for Cough. furosemide 2020-0 Yes [id number] 40mg Take 2 [facility] 20 mg 2-25 tablets by ity of tablet 00:00: mouth [place] 00 daily. Medical Branch aiFENesin 2020-0 Yes [id number] 100mg Take 5 mL [facility] 100 mg/5 mL 2-25 by mouth ity of solution 00:00: every 4 [place] 00 (four) Medical hours as Branch needed for Cough. furosemide 2020-0 Yes [id number] 40mg Take 2 [facility] 20 mg 2-25 tablets by ity of tablet 00:00: mouth [place] 00 daily. Medical Branch furosemide 2020-0 Yes [id number] 40mg Take 2 [facility] 20 mg 2-25 tablets by ity of tablet 00:00: mouth [place] 00 daily. Medical Branch furosemide 2020-0 Yes [id number] 40mg Take 2 [facility] 20 mg 2-25 tablets by ity of tablet 00:00: mouth [place] 00 daily. Medical Branch furosemide 2020-0 Yes [id number] 40mg Take 2 [facility] 20 mg 2-25 tablets by ity of tablet 00:00: mouth [place] 00 daily. Medical Branch furosemide 2020-0 Yes [id number] 40mg Take 2 [facility] 20 mg 2-25 tablets by ity of tablet 00:00: mouth [place] 00 daily. Medical Branch furosemide 2020-0 Yes [id number] 40mg Take 2 [facility] 20 mg 2-25 tablets by ity of tablet 00:00: mouth [place] 00 daily. Medical Branch furosemide 2020-0 Yes [id number] 40mg Take 2 [facility] 20 mg 2-25 tablets by ity of tablet 00:00: mouth [place] 00 daily. Medical Branch furosemide 2020-0 Yes [id number] 40mg Take 2 [facility] 20 mg 2-25 tablets by ity of tablet 00:00: mouth [place] 00 daily. Medical Branch guaiFENesin 3- No [id number] 100mg Take 5 mL [facility] 100 mg/5 mL 2-25 - by mouth ity of solution 00:00: 00:00 every 4 [place] 00 :00 (four) Medical hours as Branch needed for Cough. guaiFENesin 2020-3- No [id number] 100mg Take 5 mL [facility] 100 mg/5 mL 2-25 -07 by mouth ity of solution 00:00: 00:00 every 4 [place] 00 :00 (four) Medical hours as Branch needed for Cough. pantoprazol 0 Yes 40mg Take 1 Univ ers e 40 mg EC 2-21 tablet by ity of tablet 00:00: mouth [place] 00 daily. Medical Branch pantoprazol 0 Yes 40mg Take 1 Univ ers e 40 mg EC 2-21 tablet by ity of tablet 00:00: mouth [place] 00 daily. Medical Branch pantoprazol 2020-0 Yes 40mg Take 1 Univ ers e 40 mg EC 2-21 tablet by ity of tablet 00:00: mouth [place] 00 daily. Medical Branch pantoprazol 0 Yes 40mg Take 1 Univ ers e [...] [place] 00 daily. Medical Branch pantoprazol 2021-0 2023- No 40mg Take 1 Uni vers e 40 mg EC 2-21 -07 tablet by ity of tablet 00:00: 00:00 mouth [place] 00 :00 daily. Medical Branch pantoprazol 2021-0 2023- No 40mg Take 1 Uni vers e 40 mg EC 2-21 -07 tablet by ity of tablet 00:00: 00:00 mouth [place] 00 :00 daily. Medical Branch gabapentin 2021-0 Yes 300mg Take 1 Univ ers 300 mg 2-20 capsule by ity of capsule 00:00: mouth 2 () Medical times Branch daily. melatonin 3 2020-0 Yes 6mg Take 2 Univ ers mg tablet 2-20 tablets by ity of 00:00: mouth at [place] [address] bedtime. Medical Branch gabapentin 2021-0 Yes 300mg Take 1 Univ ers 300 mg 2-20 capsule by ity of capsule 00:00: mouth 2 (two) Medical times Branch daily. melatonin 3 2020-0 Yes 6mg Take 2 Univ ers mg tablet 2-20 tablets by ity of 00:00: mouth at [place] [address] bedtime. Medical Branch gabapentin 2020-0 Yes 300mg Take 1 Univ ers 300 mg 2-20 capsule by ity of capsule 00:00: mouth 2 () Medical times Branch daily. melatonin 3 2020-0 Yes 6mg Take 2 Univ ers mg tablet 2-20 tablets by ity of 00:00: mouth at [place] bedtime. Medical Branch gabapentin 2020-0 Yes 300mg Take 1 Univ ers 300 mg 2-20 capsule by ity of capsule 00:00: mouth 2 () Medical times Branch daily. melatonin 3 2020-0 Yes 6mg Take 2 Univ ers mg tablet 2-20 tablets by ity of 00:00: mouth at [place] bedtime. Medical Branch gabapentin 2020-0 Yes 300mg Take 1 Univ ers 300 mg 2-20 capsule by ity of capsule 00:00: mouth 2 [place] () Medical times Branch daily. melatonin 3 2020-0 Yes 6mg Take 2 Univ ers mg tablet 2-20 tablets by ity of 00:00: mouth at [place] [address] bedtime. Medical Branch gabapentin 2020-0 Yes 300mg Take 1 [facility] ers 300 mg 2-20 capsule by ity of capsule 00:00: mouth 2 (two) Medical times Branch daily. melatonin 3 1-0 Yes 6mg Take 2 Univ ers mg tablet 2-20 tablets by ity of 00:00: mouth at [place] [address] bedtime. Medical Branch gabapentin 2021-0 Yes 300mg Take 1 [facility] ers 300 mg 2-20 capsule by ity of capsule 00:00: mouth 2 (two) Medical times Branch daily. melatonin 3 2020-0 Yes 6mg Take 2 Univ ers mg tablet 2-20 tablets by ity of 00:00: mouth at [place] bedtime. Medical Branch gabapentin 2021-0 Yes 300mg Take 1 Univ ers 300 mg 2-20 capsule by ity of capsule 00:00: mouth (two) Medical times Branch daily. melatonin 3 2021-0 Yes 6mg Take 2 Univ ers mg tablet 2-20 tablets by ity of 00:00: mouth at [place] bedtime. Medical Branch gabapentin 2021-0 Yes 300mg Take 1 Univ ers 300 mg 2-20 capsule by ity of capsule 00:00: mouth 2 (two) Medical times Branch daily. melatonin 3 2021-0 Yes 6mg Take 2 Univ ers mg tablet 2-20 tablets by ity of 00:00: mouth at [place] bedtime. Medical Branch gabapentin 2021-0 Yes 300mg Take 1 [facility] ers 300 mg 2-20 capsule by ity of capsule 00:00: mouth () Medical times Branch daily. melatonin 3 2021-0 Yes 6mg Take 2 Univ ers mg tablet 2-20 tablets by ity of 00:00: mouth at [place] bedtime. Medical Branch gabapentin 2021-0 Yes 300mg Take 1 Univ ers 300 mg 2-20 capsule by ity of capsule 00:00: mouth () Medical times Branch daily. melatonin 3 2021-0 Yes 6mg Take 2 Univ ers mg tablet 2-20 tablets by ity of 00:00: mouth at [place] bedtime. Medical Branch gabapentin 2021-0 Yes 300mg Take 1 Univ ers 300 mg 2-20 capsule by ity of capsule 00:00: mouth () Medical times Branch daily. melatonin 3 2021-0 Yes 6mg Take 2 Univ ers mg tablet 2-20 tablets by ity of 00:00: mouth at [place] bedtime. Medical Branch gabapentin 2021-0 Yes 300mg Take 1 Univ ers 300 mg 2-20 capsule by ity of capsule 00:00: mouth (two) Medical times Branch daily. melatonin 3 2021-0 Yes 6mg Take 2 Univ ers mg tablet 2-20 tablets by ity of 00:00: mouth at [place] [address] bedtime. Medical Branch gabapentin 2021-0 Yes 300mg Take 1 Univ ers 300 mg 2-20 capsule by ity of capsule 00:00: mouth 2 [place] 00 (two) Medical times Branch daily. melatonin 3 2020-0 Yes 6mg Take 2 Univ ers mg tablet 2-20 tablets by ity of 00:00: mouth at [place] [address] bedtime. Medical Branch gabapentin 2020-0 Yes 300mg Take 1 Univ ers 300 mg 2-20 capsule by ity of capsule 00:00: mouth 2 [place] 00 (two) Medical times Branch daily. melatonin 3 2020-0 Yes 6mg Take 2 Univ ers mg tablet 2-20 tablets by ity of 00:00: mouth at [place] [address] bedtime. Medical Branch melatonin 3 2020-0 Yes 6mg Take 2 Univ ers mg tablet 2-20 tablets by ity of 00:00: mouth at [place] [address] bedtime. Medical Branch melatonin 3 2020-0 Yes 6mg Take 2 Univ ers mg tablet 2-20 tablets by ity of 00:00: mouth at [place] [address] bedtime. Medical Branch melatonin 3 2020-0 Yes 6mg Take 2 Univ ers mg tablet 2-20 tablets by ity of 00:00: mouth at [place] [address] bedtime. Medical Branch melatonin 3 2020-0 Yes 6mg Take 2 Univ ers mg tablet 2-20 tablets by ity of 00:00: mouth at [place] [address] bedtime. Medical Branch melatonin 3 2020-0 Yes 6mg Take 2 Univ ers mg tablet 2-20 tablets by ity of 00:00: mouth at [place] [address] bedtime. Medical Branch melatonin 3 2020-0 Yes 6mg Take 2 Univ ers mg tablet 2-20 tablets by ity of 00:00: mouth at [place] [address] bedtime. Medical Branch melatonin 3 2020-0 Yes 6mg Take 2 Univ ers mg tablet 2-20 tablets by ity of 00:00: mouth at [place] [address] bedtime. Medical Branch gabapentin 2020-0 2022- No 300mg Take 1 Uni vers 300 mg 2-20 - capsule by ity of capsule 00:00: 00:00 mouth 2 [place] 00 :00 (two) Medical times Branch daily. gabapentin 2020-0 2022- No 300mg Take 1 Uni vers 300 mg 2-20 - capsule by ity of capsule 00:00: 00:00 mouth 2 [place] 00 :00 (two) Medical times Branch daily. fluticasone 2019-0 Yes 1{spray Use 1 Un merry propionate 6-24 } [place] in ity o f 50 00:00: each [place] mcg/actuati 00 nostril Medic al on nasal daily. Branch spray fluticasone 2019-0 Yes 1{spray Use 1 Un merry propionate 6-24 } [place] in ity o f 50 00:00: each [place] mcg/actuati 00 nostril Medic al on nasal daily. Branch spray fluticasone 2019-0 Yes 1{spray Use 1 Un merry propionate 6-24 } [place] in ity o f 50 00:00: each [place] mcg/actuati 00 nostril Medic al on nasal daily. Branch spray fluticasone 2019-0 Yes 1{spray Use 1 Un merry propionate 6-24 } [place] in ity o f 50 00:00: each [place] mcg/actuati 00 nostril Medic al on nasal daily. Branch spray fluticasone 2019-0 Yes 1{spray Use 1 Un merry propionate 6-24 } [place] in ity o f 50 00:00: each [place] mcg/actuati 00 nostril Medic al on nasal daily. Branch spray fluticasone 2018-0 Yes 1{spray Use 1 Un merry propionate 6-24 } [place] in ity o f 50 00:00: each [place] mcg/actuati 00 nostril Medic al on nasal daily. Branch spray fluticasone 2019-0 Yes 1{spray Use 1 Un merry propionate 6-24 } [place] in ity o f 50 00:00: each [place] mcg/actuati 00 nostril Medic al on nasal daily. Branch spray fluticasone 2019-0 Yes 1{spray Use 1 Un merry propionate 6-24 } [place] in ity o f 50 00:00: each [place] mcg/actuati 00 nostril Medic al on nasal daily. Branch spray fluticasone 2019-0 Yes 1{spray Use 1 Un merry propionate 6-24 } [place] in ity o f 50 00:00: each [place] mcg/actuati 00 nostril Medic al on nasal daily. Branch spray fluticasone 2019-0 Yes 1{spray Use 1 Un merry propionate 6-24 } [place] in ity o f 50 00:00: each [place] mcg/actuati 00 nostril Medic al on nasal daily. Branch spray fluticasone 2019-0 Yes 1{spray Use 1 Un merry propionate 6-24 } [place] in ity o f 50 00:00: each [place] mcg/actuati 00 nostril Medic al on nasal daily. Branch spray fluticasone 2019-0 Yes 1{spray Use 1 Un merry propionate 6-24 } [place] in ity o f 50 00:00: each [place] mcg/actuati 00 nostril Medic al on nasal daily. Branch spray fluticasone 2019-0 Yes 1{spray Use 1 Un merry propionate 6-24 } [place] in ity o f 50 00:00: each [place] mcg/actuati 00 nostril Medic al on nasal daily. Branch spray fluticasone 2019-0 Yes 1{spray Use 1 Un merry propionate 6-24 } [place] in ity o f 50 00:00: each [place] mcg/actuati 00 nostril Medic al on nasal daily. Branch spray fluticasone 2019-0 Yes 1{spray Use 1 Un merry propionate 6-24 } [place] in ity o f 50 00:00: each [place] mcg/actuati 00 nostril Medic al on nasal daily. Branch spray fluticasone 2018-0 Yes 1{spray Use 1 Un merry propionate 6-24 } [place] in ity o f 50 00:00: each [place] mcg/actuati 00 nostril Medic al on nasal daily. Branch spray fluticasone 2019-0 Yes 1{spray Use 1 Un merry propionate 6-24 } [place] in ity o f 50 00:00: each [place] mcg/actuati 00 nostril Medic al on nasal daily. Branch spray fluticasone 2019-0 Yes 1{spray Use 1 Un merry propionate 6-24 } [place] in ity o f 50 00:00: each [place] mcg/actuati 00 nostril Medic al on nasal daily. Branch spray fluticasone 2019-0 Yes 1{spray Use 1 Un merry propionate 6-24 } [place] in ity o f 50 00:00: each [place] mcg/actuati 00 nostril Medic al on nasal daily. Branch spray fluticasone 2019-0 Yes 1{spray Use 1 Un merry propionate 6-24 } [place] in ity o f 50 00:00: each [place] mcg/actuati 00 nostril Medic al on nasal daily. Branch spray fluticasone 2019-0 Yes 1{spray Use 1 Un merry propionate 6-24 } [place] in ity o f 50 00:00: each [place] mcg/actuati 00 nostril Medic al on nasal daily. Branch spray fluticasone Yes 1{spray Use 1 Un merry propionate 6-24 } [place] in ity o f 50 00:00: each [...] [place] 00 daily. [facility] Ken[facility] 0 No 40mg Common (Triamcinol (Triamcinol 4-25 S pirit one) one) 00:00: - [facility] 00 [facility] Kenalog 0 No 40mg Common (Triamcinol (Triamcinol 4-25 S pirit one) one) 00:00: - [facility] 00 [facility] Kenalog 0 No 40mg Common (Triamcinol (Triamcinol 4-25 S pirit one) one) 00:00: - [facility] 00 [facility] Kenalog 0 No 40mg Common (Triamcinol (Triamcinol 4-25 S pirit one) one) 00:00: - [facility] 00 [facility] Kenalog 0 No 40mg Common (Triamcinol (Triamcinol 4-25 S pirit one) one) 00:00: - [facility] 00 [facility] Kenalog 2017-0 No 40mg Common (Triamcinol (Triamcinol 4-25 S pirit one) one) 00:00: - [facility] Kenalog 0 No 40mg Common (Triamcinol (Triamcinol 4-25 S pirit one) one) 00:00: - [facility] 00 [facility] azithromyci Yes 250mg QD Take [address] [facility] 02-26 [facility] (ZITHROMAX) 00:00: (250 mg Med ical 250 MG 00 total) by Center tablet mouth daily Take by mouth as directed.. predniSONE Yes Take 4 [facility] (DELTASONE) 02-26 tablets [facility] 10 MG 00:00: daily for [...] Time Observation Value Comments Source Systolic blood 2023-01-14 122 mm[Hg] University of pressure 18:20:00 [facility] Diastolic blood 2023-01-14 70 mm[Hg] University o f pressure 18:20:00 [facility] Heart rate 2023-01-14 50 /min University 18:20:00 [facility] Body height 2023-01-14 175.3 cm [facility] 18:20:00 [facility] Body weight 2023-01-14 133.584 kg University 18:20:00 [facility] BMI 2023-01-14 43.49 kg/m2 University 18:20:00 [facility] Oxygen saturation 2023-01-14 89 /min on personal O2 Universi ty of in Arterial blood 18:20:00 [facility] by Pulse oximetry [place] Systolic blood 2022-11-26 148 mm[Hg] University of pressure 21:03:00 [facility] Diastolic blood 2022-11-26 87 mm[Hg] University o f pressure 21:03:00 [facility] Heart rate 2022-11-26 87 /min University :03:00 [facility] Body height 2022-11-26 175.3 cm University 21:03:00 [facility] Body weight 2022-11-26 133.358 kg University 21:03:00 [facility] BMI 2022-11-26 43.42 kg/m2 University of 21:03:00 [facility] Oxygen saturation 2022-11-26 88 /min on oxygen tank Universi ty of in Arterial blood :03:00 [facility] by Pulse oximetry [place] height 2022-09-11 69 [in_i] [facility] 13:20:00 [facility] weight 2022-09-11 284 [lb_av] [facility] - 13:20:00 [facility] bmi 2022-09-11 41.93 kg/m2 [facility] - 13:20:00 [facility] oximetry 2022-09-11 94 % [facility] - 13:20:00 [facility] Systolic blood 2022-08-13 158 mm[Hg] University of pressure 20:06:00 [facility] Diastolic blood 2022-08-13 100 mm[Hg] University o f pressure 20:06:00 [facility] Heart rate 2022-08-13 89 /min University of 20:06:00 [facility] Respiratory rate 2022-08-13 16 /min University of 20:06:00 [facility] Body height 2022-08-13 175.3 cm University of 20:06:00 [facility] Body weight 2022-08-13 130.636 kg University of 20:06:00 [facility] BMI 2022-08-13 42.53 kg/m2 University of 20:06:00 [facility] Oxygen saturation 2022-08-13 87 /min University of in Arterial blood 20:06:00 [facility] by Pulse oximetry Branch Systolic blood 2022-08-05 111 mm[Hg] University of pressure 17:15:00 [facility] Diastolic blood 2022-08-05 73 mm[Hg] University o f pressure 17:15:00 [facility] Heart rate 2022-08-05 97 /min University of 17:15:00 [facility] Respiratory rate 2022-08-05 26 /min University of 17:15:00 [facility] Body height 2022-08-05 175.3 cm University of 17:15:00 [facility] Body weight 2022-08-05 130.636 kg University of 17:15:00 [facility] BMI 2022-08-05 42.53 kg/m2 University of 17:15:00 [facility] Oxygen saturation 2022-08-05 86 /min University of in Arterial blood 17:15:00 [place] Medi derrick by Pulse oximetry Branch Systolic blood 2022-06-07 153 mm[Hg] University of pressure 18:07:00 [facility] Diastolic blood 2022-06-07 97 mm[Hg] University o f pressure 18:07:00 [facility] Heart rate 2022-06-07 96 /min [facility] 18:07:00 [facility] Body temperature 2022-06-07 36.39 [place] [facility] 18:07:00 [facility] Body height 2022-06-07 175.3 cm [facility] 18:07:00 [facility] Body weight 2022-06-07 130.636 kg [facility] 18:07:00 [facility] BMI 2022-06-07 42.53 kg/m2 University 18:07:00 [facility] height 2022-05-07 69 [in_i] [facility] Spirit - 14:40:00 [facility] weight 2022-05-07 282 [lb_av] [facility] - 14:40:00 [facility] temperature 2022-05-07 98.0 [degF] [facility] - 14:40:00 [facility] bmi 2022-05-07 41.64 kg/m2 [facility] - 14:40:00 [facility] oximetry 2022-05-07 96 % [facility] - 14:40:00 [facility] respiratory rate 2022-05-07 16 /min [facility] - 14:40:00 [facility] blood pressure 2022-05-07 132 mm[Hg] [facility] - systolic 14:40:00 [facility] blood pressure 2022-05-07 86 mm[Hg] [facility] - diastolic 14:40:00 [facility] Procedures Procedure Date / Time Performing Clinician Source Performed [facility] PATIENT FINANCIAL 2022-11-26 20:50:29 Doctor Unassigned, No [facility] POLICY Name [facility] DME/SUPPLY JUSTIFICATION 2022-08-13 06:01:00 Doctor Unassigned, No [facility] XR CERVICAL SPINE 2 VW 2022-08-05 17:43:18 [facility]W RIGHT 2022-08-05 17:43:18 [facility]REFUSAL FOR 2022-08-05 17:20:37 Doctor Unassigned, No [facility] [place] DIAGNOSIS AND TREATMENT [facility] Branch ASSIGNMENT OF BENEFITS 2022-08-05 17:02:56 Doctor Unassigned, No [facility] XR SHOULDER 2+ VW RIGHT 2022-06-07 18:28:19 Jethro Dodge [facility] Encounters Start End Encounter Admission Attending Care Care Encounter Source Date/Time Date/Time Type Type Clinicians Facility Department ID 2022-09-03 Outpatient Hoawrd, STLMLC STLC [id number] Common 14:13:02 [facility] 2022-07-30 Outpatient Howard[facility] [id number] Common 15:03:01 [facility] 2022-05-07 Outpatient Howard, STLMLC [facility] [id number] Common 14:36:03 [facility] 2023-03-12 2023-03-12 Outpatient Pepper BRUCE [facility] [id number] Univers 09:30:00 09:30:00 GIAN [facility] 2023-01-14 2023-01-14 Outpatient R DEANA [facility] [id number] Univers 13:30:00 13:48:27 MARTIN [facility] 2023-01-14 2023-01-14 [facility] [id number] Univers 13:30:00 13:48:27 Visit Martin ADDISON 350.1.13.10 ity of [place] 4.2.7.2.686 [facility] [id number] [address] DIABETES CLINIC 2022-12-17 2022-12-17 Outpatient R CLARA PATRICK [facility] [id number] Univers 10:00:00 10:00:00 CLARA PATRICK [facility] 2022-12-11 2022-12-11 Telephone Som [facility] [id number] Univers 00:00:00 00:00:00 Clara ADDISON 350.1.13.10 ity of [place] 4.2.7.2.686 [facility] [id number] [address] DIABETES [facility]INIC 2022-12-10 2022-12-10 Outpatient R SOM LORRAINE [facility] [id number] Univers 14:30:00 14:30:00 SOM KISHALORRAINE [facility] 2022-12-10 2022-12-10 Telephone Deana [facility] [id number] Univers 00:00:00 00:00:00 Martin ADDISON 350.1.13.10 ity [place] [id number] [address] [facility]ES [facility]INIC 2022-12-09 2022-12-09 Telephone Som [facility] [id number] [facility] 00:00:00 00:00:00 Clara ADDISON 350.1.13.10 [place] [id number] [address] [facility] 2022-11-26 2022-11-26 Outpatient R DEANA [facility] [id number] Univers 15:30:00 15:49:04 MARTIN [facility] 2022-11-26 2022-11-26 [facility] [id number] Univers 15:30:00 15:49:04 Visit Martin ADDISON 350.1.13.10 [place] [id number] [address] [facility] 2022-11-26 2022-11-26 Orders Doctor THI 1.2.840.114 [id number] Univers 00:00:00 00:00:00 Only Unassigned, VANESSA 350.1.13.10 ity of [facility] 4.2.7.2.686 Satish as [id number] [place] [address] Branch 2022-11-05 2022-11-05 Outpatient R SHILO [facility] [id number] Univers 14:00:00 14:00:00 JETHRO [facility] 2022-10-29 2022-10-29 Telephone Hillary [facility] 1.2.840.114 [id number] Univers 00:00:00 00:00:00 [facility] 350.1.13.[address]7.2.686 [facility] [id number] [facility] PRIMARY & 198 Branch SPECIALTY CARE 2022-10-22 2022-10-22 Outpatient Pepper LEBLANC [facility] [id number] Univers 15:00:00 15:00:00 [facility]22-10-21 2022-10-21 Outpatient R HILLARY [facility] [id number] Univers 13:00:00 13:00:00 keisha BAKER [facility] 2022-10-17 2022-10-17 (TEL) STLMLC STLMLC [id number] Co mmon 00:00:00 00:00:00 [facility] 2022-10-15 2022-10-15 Outpatient Pepper LEBLANC [facility] [id number] Univers 14:00:00 14:00:00 [facility] 2022-10-15 2022-10-15 [facility] [id number] Univers 00:00:00 00:00:00 [facility] 350.1.13.10 [facility] 4.2.7.2.686 [facility] [id number] [facility] [place] [address] Branch DIABETES CLINIC 2022-10-08 2022-10-08 (TEL) STLMLC STLMLC [id number] Co mmon 00:00:00 00:00:00 [facility] 2022-09-11 2022-09-11 (TEL) STLMLC STLMLC [id number] Co mmon 00:00:00 00:00:00 [facility] 2022-09-11 2022-09-11 OFFICE STLMLC STLMLC [id number] Co mmon 00:00:00 00:00:00 VISIT [facility] LEVEL 4 [facility] 2022-09-10 2022-09-10 [facility] [id number] Univers 16:00:00 16:00:00 JETHRO ity of [facility] 2022-09-06 2022-09-06 Telephone [facility] 1.2.840.114 [id number] Univers 00:00:00 00:00:00 MAXI baker 350.1.13.10 ity of [facility] [place] [id number] [address] 2022-09-06 2022-09-06 Telephone [facility] [id number] Univers 00:00:00 00:00:00 [facility] 350.1.13.10 [facility] 4.2.7.2.686 [facility] [id number] [address] DIABETES CLINIC 2022-08-13 2022-08-13 Outpatient R [facility] [id number] Univers 14:00:00 15:50:10 keisha BAKER of [facility] 2022-08-13 2022-08-13 Office [facility] 1.2.840.114 [id number] Univers 14:00:00 15:50:10 Visit Enriqueta [facility] 350 .1.13.10 ity of [place] 4.2.7.2.686 [facility] [place] [id number] [address] DIABETES CLINIC 2022-08-13 2022-08-13 Orders Doctor THI 1.2.840.114 [id number] Univers 00:00:00 00:00:00 Only Unassigned, VANESSA 350.1.13.10 ity of [facility] 4.2.7.2.686 Satish as [id number] [place] [address] Branch 2022-08-07 2022-08-07 (TEL) STLC STLMLC [id number] Co mmon 00:00:00 00:00:00 [facility] 2022-08-05 2022-08-05 Hospital [facility] 1.2.840.114 [id number] Univers 11:21:07 23:59:00 Encounter azaelatilio [facility] 350.1.13.10 ity of [facility] [place] [facility] 4.2.7.2.686 [facility] [id number] [facility] PRIMARY & 809 Branch SPECIALTY CARE 2022-08-05 2022-08-05 Office [facility] 1.2.840.114 [id number] Univers 11:40:00 12:00:00 Visit [facility] 350.1.13.10 it y of [facility] [place] [facility] 4.2.7.2.686 [facility] [id number] [facility] PRIMARY & 198 Branch SPECIALTY CARE 2022-08-05 2022-08-05 Outpatient R [facility] [id number] Univers 11:40:00 11:40:00 david BAKERy of [facility] 2022-08-05 2022-08-05 Orders Doctor NESS 1.2.840.114 [id number] Univers 00:00:00 00:00:00 Only Unassigned, VANESSA 350.1.13.10 ity of [facility] 4.2.7.2.686 Satish [id number] [facility] 009 Branch 2022-07-29 2022-07-29 Outpatient [facility] [id number] Univers 16:00:00 16:00:00 david BAKERy of [facility] 2022-06-24 2022-06-24 Outpatient R [facility] [id number] Univers 11:40:00 11:40:00 ASHLEY, ity of [facility] 2022-06-07 2022-06-07 Hospital [facility] 1.2.840.114 [id number] Univers 13:11:58 23:59:00 Encounter Jethro SPECIALTY 350.1.13.10 ity of [facility] 4.2.7.2.[address] [place] [address] AT [id number] Ca terrence [facility] 809 Branch [place] 2022-06-07 2022-06-07 Office [facility] [id number] Univers 13:20:00 13:44:39 Visit Jethro SPECIALTY 350.1.13.10 ity of [facility] 4.2.7.2.686 [place] AT [id number] Ca terrence [facility] 2022-06-07 2022-06-07 Outpatient Pepper DODGE [facility] [id number] Univers 13:20:00 13:44:39 JETHRO chiki [facility] 2022-06-07 2022-06-07 Outpatient Pepper DODGE [facility] [id number] Univers 13:20:00 13:44:39 JETHRO davidchiki [facility] 2022-06-07 2022-06-07 Outpatient Pepper DODGE [facility] [id number] Univers 13:20:00 13:20:00 [facility] 2022-05-30 2022-05-30 Outpatient Pepper DODGE [facility] [id number] Univers 13:10:00 13:10:00 JETHRO valdes [facility] 2022-05-22 2022-05-22 Orders Doctor THI 1.2.840.114 [id number] Univers 00:00:00 00:00:00 Only Unassigned, VANESSA 350.1.13.10 ity of [facility] 4.2.7.2.686 Satish as [id number] [address] 2022-05-07 2022-05-[address] [facility] [id number] Co mmon 00:00:00 00:00:00 VISIT [facility] ESTAB PT - [facility] LEVEL 4 [facility] 2022-05-07 2022-05-07 [id number]mon 00:00:00 00:00:00 [facility] - [facility] 2022-04-18 2022-04-18 Orders Doctor THI Alvarez2.840.114 [id number] Univers 00:00:00 00:00:00 Only Unassigned, VANESSA 350.1.13.10 ity of [facility] 4.2.7.2.686 Satish as [id number] [address] 2021-06-15 2021-06-15 Office Christa King [facility] 1Xin2.840.114 [id number] Univers 14:04:32 15:05:28 Visit Salazar Shaji 350.1.13.10 it y of [facility] [place] [id number] [place] [address] Branch 2021-06-15 2021-06-15 Outpatient Pepper KING CHRISTA [facility] [id number] Univers 14:30:00 14:30:00 ity [facility] 2021-06-08 2021-06-08 Outpatient Pepper KING [facility] [id number] Univers 14:00:00 14:00:00 ity [facility] 2021-06-04 2021-06-04 Outpatient JESSE GOMEZ [facility] [id number] Univers 13:00:00 13:00:00 ity [facility] 2021-01-25 2021-01-25 Orders Doctor THI 1.2.840.114 [id number] 00:00:00 00:00:00 Only Unassigned, VANESSA 350.1.13.10 [facility] 4.2.7.2.686 [id number] 2021-01-25 2021-01-25 Orders Doctor NESS 1.2.840.114 [id number] Univers 00:00:00 00:00:00 Only Unassigned, VANESSA 350.1.13.10 ity of [facility] 4.2.7.2.686 Satish as [id number] [address] 2021-01-15 2021-01-15 Orders Doctor THI 1.2.840.114 [id number] 00:00:00 00:00:00 Only Unassigned, VANESSA 350.1.13.10 [facility] 4.2.7.2.686 [id number] 2021-01-15 2021-01-15 Orders Doctor THI 1.2.840.114 [id number] [facility] 00:00:00 00:00:00 Only Unassigned, VANESSA 350.1.13.10 ity of [facility] 4.2.7.2.686 Satish as [id number] [address] 2020-11-17 2020-11-17 [facility] 1.2.840.114 [id number] 00:00:00 00:00:00 Management [place] [facility] 350.1.13.10 I[place] 4.2.7.2.686 CENTER [id number] [place] [address] DIABETES CLINIC 2020-11-17 2020-11-17 Transition Hernandez Radhajumana 1.2.840.114 [id number] 00:00:00 00:00:00 of Care Viviana Leviy 350.1.13.10 [place] 4.2.7.2.686 [id number] 403 2020-11-17 2020-11-17 Transition Molly Hernandez 1.2.840.114 [id number] Univers 00:00:00 00:00:00 of Care Viviana Leviy 350.1.13.10 [place] [phone] [facility] [address] 2020-11-17 2020-11-17 [facility] 1.2.840.114 [id number] Univers 00:00:00 00:00:00 Management [place] Oates MULTISPEC 350.1.13.10 ity [facility] [place] [phone] [facility] AND [address] [facility] 2020-11-12 2020-11-16 [facility] Jeronimo Hogue 1.2.840.1 14 [id number] 18:33:00 16:20:00 Encounter Julian Gonzales 350.1.13.10 [place] coulter [facility] 4.2.7.2.686 Sammie Tarango [phone] Tyler Trevizo [address] Shahzad Suthar, Krishna Hemant 2020-11-12 2020-11-16 Inpatient X [facility] [id number] Univers 18:33:00 16:20:00 CHU itchiki [facility] 2020-11-12 2020-11-16 [facility] Jeronimo [place]ogue 1.2.840.1 14 [id number] [facility] 18:33:00 16:20:00 Encounter Julian Gonzalesy 350.1.13.10 ity of [place], [facility] 4.2.7.2.686 Sammie Matthew [phone] Medical Tyler Trevizo 09Nithya [place] SungElinaChu Moreno Josanjiv Tyler [facility], Chu Moreno 2020-11-14 2020-11-14 Telephone Note [facility] 1.2.840.114 [id number] 00:00:00 00:00:00 dereshmaon, SPECIALTY 350.1.13.10 [facility] 4.2.7.2.686 CENTER AT [phone] [address] 2020-11-14 2020-11-14 Telephone Note [facility] 1.2.840.114 [id number] [facility] 00:00:00 00:00:00 ashley, SPECIALTY 350.1.13.10 ity of [place] [facility] [place].2.[place] AT [phone] [facility] 2020-11-13 2020-11-13 Transition Molly Verdugo 1.2.840.114 [id number] 00:00:00 00:00:00 of Care Lizbeth Chiu 350.1.13.10 [place] [id number] [facility] 2020-11-13 2020-11-13 Transition Molly Verdugo 1.2.840.114 [id number] [facility] 00:00:00 00:00:00 of Care Lizbeth Chiu 350.1.13.10 it y [place] [phone] [place] [address] [address] 2020-11-07 2020-11-11 [facility] Jeronimo Hogue [facility] 1.2.840.1 14 [id number] 06:48:00 14:50:00 Encounter Annette Conrad 350.1.13.10 [place] 4.2.7.2.686 [facility] [phone] [facility] 2020-11-07 2020-11-11 Inpatient X [facility] [id number] Univers 06:48:00 14:50:00 ANNETTE ity of [facility] 2020-11-07 2020-11-11 [facility] Jeronimo Hogue [facility] 1.2.840.1 14 [id number] Univers 06:48:00 14:50:00 Encounter Annette Conrad [place] 350.1.13.10 ity of [place] 4.2.7.2.686 [facility] [phone] [address] 2020-07-12 2020-07-12 Hospital Hillary Ybarra 1.2.840.114 [id number] 11:56:24 23:59:00 Encounter yoniatilio, Pediatric 350.1.13.10 [place] and 4.2.7.2.686 Adult [phone] Primary [facility] 2020-07-12 2020-07-12 Hospital Hillary Carrin 1.2.840.114 [id number] Univers 11:56:24 23:59:00 Encounter azaelperez, Pediatric 350.1.13.10 ity of [place] [address] [phone] [facility] [address] [facility] 2020-07-12 2020-07-12 Office Hillary Carrin 1.2.840.114 [id number] 11:00:10 13:58:54 Visit njreshmaon, Pediatric 350.1.13.10 [place] and 4.2.7.2.686 Adult [phone] Primary [facility] 2020-07-12 2020-07-12 Office Hillary Carrin 1.2.840.114 [id number] Univers 11:00:10 13:58:54 Visit ashley, Pediatric 350.1.13.10 ity of [place] and [place] [address] [id number] [facility] [address] [facility] 2020-07-12 2020-07-12 Outpatient R HARMONY-KU [facility] [id number] Univers 11:00:00 11:00:00 keisha BAKER of [place] [facility] 2020-07-03 2020-07-03 Orders Doctor THI 1.2.840.114 [id number] 00:00:00 00:00:00 Only Unassigned, VANESSA 350.1.13.10 [facility] 4.2.7.2.686 [id number] 2020-07-03 2020-07-03 Orders Doctor THI 1.2.840.114 [id number] Univers 00:00:00 00:00:00 Only Unassigned, VANESSA 350.1.13.10 ity of [facility] 4.2.7.2.686 Satish as [phone] [address] 2020-06-02 2020-06-02 [facility] 1.2.840.114 [id number] Univers 12:31:11 14:20:12 Visit Edilma Amador 350.1.13.10 it[place] of [place] Profess[place] [phone] Ca dical [address] 2020-06-02 2020-06-02 Outpatient R ADUM, [facility] [id number] Univers 13:00:00 13:00:00 EDILMA valdes [facility] 2020-06-02 2020-06-02 Orders Doctor NESS 1.2.840.114 [id number] Univers 00:00:00 00:00:00 Only Unassigned, VANESSA 350.1.13.10 ity of [facility] 4.2.7.2.686 Satish as [phone] [address] 2020-05-26 2020-05-26 Outpatient R AD, [facility] [id number] Univers 10:45:00 10:45:00 EDILMA valdes [facility] 2020-05-26 2020-05-26 [facility] 1.2.840.114 [id number] Univers 08:07:24 08:37:24 ne Visit Edilma Amador 350.1.13.10 it[place] of [place] [phone] Ca dical nal [address] [facility] 2020-05-12 2020-05-12 Outpatient R [facility] [id number] Univers 13:00:00 13:00:00 EDILMA valdes [facility] 2020-04-25 2020-04-25 [facility] 1.2.840.114 [id number] Univers 15:50:23 23:59:00 Encounter Edilma Amador 350.1.13.10 it[place] of [place] [phone] [facility] [address] [place] 2020-04-25 2020-04-25 Outpatient R [facility] [id number] Univers 00:00:00 00:00:00 EDILMAJOSE MARTIN valdes [facility] 2020-04-25 2020-04-25 Orders Doctor THI 1.2.840.114 [id number] Univers 00:00:00 00:00:00 Only Unassigned, VANESSA 350.1.13.10 ity of [facility] 4.2.7.2.686 Satish as [phone] [address] 2020-04-14 2020-04-14 [facility] 1.2.840.114 [id number] Univers 14:15:54 14:56:38 Visit Edilma Amador 350.1.13.10 it[place] of [place] [facility] [phone] Ca dical nal 134 [facility] 2020-04-14 2020-04-14 Outpatient R [facility] [id number] Univers 13:30:00 13:30:00 EDILMA keisha [facility] 2020-04-13 2020-04-13 Orders Doctor THI 1.2.840.114 [id number] Univers 00:00:00 00:00:00 Only Unassigned, VANESSA 350.1.13.10 ity of [facility] 4.2.7.2.686 Satish as [phone] [facility] [address] [place] 2019-11-01 2019-11-01 Telephone [facility] 1.2.840.114 [id number] Univers 00:00:00 00:00:00 Jethro HEALTH 350.1.13.10 it y of [place] 4.2.7.2.686 [facility] [phone] [facility] Primary & [address] Specialty Care 2019-10-28 2019-10-28 Telephone [facility] 1.2.840.114 [id number] Univers 00:00:00 00:00:00 Jethro HEALTH 350.1.13.10 it y of [place] 4.2.7.2.686 [facility] [phone] [facility] Primary & [address] Specialty Care 2019-10-26 2019-10-26 Office [facility] 1.2.840.114 [id number] Univers 14:08:12 15:44:07 Visit Jethro HEALTH 350.1.13.10 it y of [place] 4.2.7.2.686 [facility] [phone] [facility] Primary & [address] Specialty Care 2019-10-07 2019-10-07 Telephone [facility] 1.2.840.114 [id number] Univers 00:00:00 00:00:00 Jethro ZAVALA 350.1.13.10 i ty [facility] [place].2.[place] [phone] [facility] [address] 2019-10-06 2019-10-06 [facility] [id number] Univers 10:39:27 23:59:00 JETHRO valdes [facility] 2019-10-06 2019-10-06 [facility] Aleida Zhao 1.2.596.770 [id number] Univers 10:39:00 23:59:00 Encounter Jethro Mendez 350.1.13.10 ity [facility] 4.2.7.2.686 Satish as [phone] [facility] [address] 2019-10-06 2019-10-06 [facility] Valeri Zhaonie [id number] Univers 09:41:27 16:32:00 Encounter Jethro Vanessa 350.1.13.10 ity [facility] 4.2.7.2.686 Satish as [phone] [facility] [address] 2019-10-06 2019-10-06 Orders Doctor NESS 1.2.840.114 [id number] Univers 00:00:00 00:00:00 Only Unassigned, VANESSA 350.1.13.10 ity of [facility] 4.2.7.2.686 Satish as [phone] [place] [address] [address] 2019-05-28 2019-05-28 Office Fabricio, [facility] 1.2.840.114 [id number] Univers 13:10:51 15:03:17 Visit Nesha Amador 350.1.13.10 i [place] of [place].2.[place] [phone] Ca dical nal [address] Building Results Test [...] NOT 1092) ACCURATE CRE ATININE CLEARANCE IN ND EDICTING GLOMERULAR FILT RATION RATE. ESTIMATED GFR [...] 39.4 % 36.0-45.0 411) MEAN CORPUSCULAR VOLUME ([facility]) 94.4 fL 82.0-99.0 (test code = 753) MEAN CORPUSCULAR HEMOGLOBIN 28.8 pg 27.0-33.0 (AKER) (test code = 751) MEAN CORPUSCULAR HEMOGLOBIN CONC 30.5 GM/DL 32.0-36.0 L ([facility]) (test code = 752) RED CELL DISTRIBUTION WIDTH 13.1 % 10.3-14.2 (AKER) (test code = 412) PLATELET COUNT ([facility]) (test 137 K/CU MM 150-430 L code = 756) MEAN PLATELET VOLUME ([facility]) 7.2 fL 6.5-10.5 (test code = 754) NUCLEATED RED BLOOD CELLS 0 /100 WBC 0-0 ([facility]) (test code = 413) 0.00POCT-GLUCOSE [id number] 17:50:00 Test Item Value Reference Range Interpretation Comments POC-GLUCOSE METER 118 mg/dL 70-110 H TESTED AT [place] [address] ([facility]) (test code = [facility] 1538) [id number] POCT-GLUCOSE [id number] 11:59:00 Test Item Value Reference Range Interpretation Comments POC-GLUCOSE METER 247 mg/dL 70-110 H TESTED AT [place] [address] ([facility]) (test code = [facility] 1538) [id number] POCT-GLUCOSE [id number] 07:54:00 Test Item Value Reference Range Interpretation Comments POC-GLUCOSE METER 141 mg/dL 70-110 H TESTED AT [place] [address] ([facility]) (test code = [facility] 1538) [id number] CBC W/PLT COUNT & AUTO [id number] 03:45:00 Test Item Value Reference Range Interpretation Comments WHITE BLOOD CELL COUNT ([facility]) 4.9 K/ L 4.0-10.0 (test code = 775) RED BLOOD CELL COUNT ([facility]) 4.03 M/ L 4.00-5.00 (test code = 761) HEMOGLOBIN ([facility]) (test code = 12.2 GM/DL 12.0-15.0 410) HEMATOCRIT ([facility]) (test code = 37.3 % 36.0-45.0 411) [...] K/ L 0.00-0.20 (test code = 417) [id number] 03:29:00 Test Item Value Reference Range Interpretation Comments MAGNESIUM (BEAKER) 1.8 mg/dL 1.6-2.6 Specimen slightly (test code = 627) hemolyzed BASIC METABOLIC [id number] 03:29:00 Test Item Value Reference Range Interpretation [...] NOT APPLICABLE FOR DIALYSIS PATIEN TS. POCT-GLUCOSE [id number] 00:05:00 Test Item Value Reference Range Interpretation Comments POC-GLUCOSE METER 117 mg/dL 70-110 H TESTED AT [place] [address] ([facility]) (test code = [facility] 1538) 34252 POCT-GLUCOSE [id number] 18:17:00 Test Item Value Reference Range Interpretation Comments POC-GLUCOSE METER 141 mg/dL 70-110 H TESTED AT [place] [address] ([facility]) (test code = [facility] 1538) 21553 CREATINE KINASE (CK), TOTAL AND [id number] 15:43:00 Test Item Value Reference Range Interpretation Comments CREATINE KINASE TOTAL (BEAKER) 31 U/L 29-200 (test code = 380) CREATINE KINASE-MB (BEAKER) (test 1.3 ng/mL 0.0-6.6 code = 750) CREATINE KINASE-MB INDEX ([facility]) 4.2 % (test code = 395) Effective 08/09/2014: CK-MB Reference Range ChangeNew: 0.0-6.6 Previous: 0.0-4.9CK-MB Reference Range:<6.7 Normal6.7-10.0 Borderline>10.0 Abnormal BLOOD GAS, [id number] 15:26:00 Test Item Value Reference Range Interpretation [...] (test code = 1819) 35.0 % POCT-GLUCOSE [id number] 11:45:00 Test Item Value Reference Range Interpretation Comments POC-GLUCOSE METER 122 mg/dL 70-110 H TESTED AT [facility] 6720 (BEAKER) (test code = KISHA GARCÍA ID 1538) 06094 CREATINE KINASE (CK), TOTAL AND [id number] 10:29:00 Test Item Value Reference Range Interpretation Comments CREATINE KINASE TOTAL (BEAKER) 31 U/L 29-200 (test code = 380) CREATINE KINASE-MB (BEAKER) (test 1.5 ng/mL 0.0-6.6 code = 750) CREATINE KINASE-MB INDEX (BEAKER) 4.8 % (test code = 395) Effective 08/09/2014: CK-MB Reference Range ChangeNew: 0.0-6.6 Previous: 0.0-4.9CK-MB Reference Range:<6.7 Normal6.7-10.0 Borderline>10.0 Abnormal TROPONIN [id number] 10:29:00 Test Item Value Reference Range Interpretation [...] failure, acidosis, acute neurological disease, and persistent tachyarrhythmia.[id number] 10:22:00 Test Item Value Reference Range Interpretation Comments PARTIAL THROMBOPLASTIN TIME 22.5 seconds 22.5-36.0 (BEAKER) (test code = 760) PROTHROMBIN TIME/[id number] 10:21:00 Test Item Value Reference Range Interpretation Comments PROTIME (BEAKER) (test code = 12.4 seconds 11.7-14.7 759) INR (BEAKER) (test code = 370) 0.9 <=5.9 RECOMMENDED COUMADIN/WARFARIN INR THERAPY RANGESSTANDARD DOSE: 2.0 - 3.0 Includes: PROPHYLAXIS for venous thrombosis, systemic embolization; TREATMENT for venous thrombosis and/or pulmonary embolus.HIGH RISK: Target INR is 2.5-3.5 for patients with mechanical heart valves.BLOOD GAS, [id number] 10:17:00 Test Item Value Reference Range Interpretation [...] (test code = 1819) 40.0 % PLATELET [id number] 10:13:00 Test Item Value Reference Range Interpretation Comments PLATELET COUNT (BEAKER) (test 111 K/CU MM 150-430 L code = 756)
[2023-01-24 01:01] LABS: Absolute Lymphocytes (CBC) 1.2 K/uL (0.7-4.9); Hematocrit 33.5 % (36.0-45.0); Lymphocytes % 14.2 % (15.3-44.8); MCV 84.5 fL (80-100); MPV 7.9 fL (7.6-11.3); RBC Red Blood Cell Count 3.97 M/uL (3.86-4.86)
[2023-01-24 02:08] LABS: Albumin 3.1 g/dL (3.4-5.0); Bilirubin Direct 0.1 mg/dL (0-0.2); Bilirubin Total 0.4 mg/dL (0.2-1.0); Potassium 3.6 mEq/L (3.5-5.1); Protein, Total 6.5 g/dL (6.4-8.2)
[2023-01-24 02:24] LABS: Troponin High Sensitivity 23.4 pg/mL (<58.9)
--- NOTE | 2023-01-24 03:52 | ER ---
Nurse's Notes [facility] Name: Vikki Zamudio Age: 62 yrs Sex: Female : 1960 Arrival Date: 01/24/2023 Time: 00:11 Bed 14 Private MD: Diagnosis: Chest pain, unspecified;Unstable angina;Shortness of breath Presentation: 01/24 00:13 Chief complaint: EMS states: 62 year old female reports shortness of breath and chest ha1 pain. on our arrival her oxygen saturation was 74 on four liters nasal canula. we put her on a non-rebreather mask and she seems to be doing better with it. 00:13 Coronavirus screen: Vaccine status:. Ebola Screen: No symptoms or risks identified at [facility] this time. Initial Sepsis Screen: Does the patient meet any 2 criteria? No. Patient's initial sepsis screen is negative. Does the patient have a suspected source of infection? No. Patient's initial sepsis screen is negative. Risk Assessment: Do you want to hurt yourself or someone else? Patient reports no desire to harm self or others. Onset of symptoms was January 24, 2023. 00:13 Method Of Arrival: EMS: [facility] 00:13 Acuity: LIZETH 3 ha1 Triage Assessment: 00:13 General: Appears uncomfortable, ill, Behavior is cooperative. Pain: Complains of pain ha1 in chest Pain does not radiate. Pain currently is 7 out of 10 on a pain scale. Quality of pain is described as pressure. EENT: No signs and/or symptoms were reported regarding the EENT system. Neuro: Level of Consciousness is awake, alert, obeys commands, Oriented to person, place, time, situation, Reports. Cardiovascular: Capillary refill < 3 seconds. Cardiovascular: Reports chest pain. Respiratory: Reports shortness of breath at rest Airway is patent Respiratory effort is even, unlabored, Respiratory pattern is regular, tachypnea. GI: Abdomen is round distended, obese, Abd is rigid X 4 quads. : No signs and/or symptoms were reported regarding the genitourinary system. Derm: Skin is dry, Skin is normal. Derm: Skin is fragile. Musculoskeletal: Circulation, motion, and sensation intact. Historical: - Allergies: 00:40 No Known Allergies; ha1 - PMHx: 00:40 CHF; COPD; GERD; High Cholesterol; Hypercarbia; Hypertension; Hypothyroidism; Panic ha1 Attacks; Sleep Apnea; - PSHx: 00:40 section; ha1 - Immunization history:: Adult Immunizations unknown. - Social history:: Smoking status: Patient reports the use of cigarette tobacco products, denies chronic smoking, but will smoke occasionally. Screenin:13 Abuse screen: Denies threats or abuse. Denies injuries from another. Nutritional ha1 screening: No deficits noted. Tuberculosis screening: No symptoms or risk factors identified. 10:17 [facility] ED Fall Risk Assessment (Adult) History of falling in the last 3 months, ap3 including since admission Confusion or Disorientation No (0 pts) Intoxicated or Sedated No (0 pts) Impaired Gait Yes (1 pt) Mobility Assist Device Used Yes (1 pt) Altered Elimination No (0 pt). Assessment: 00:13 Reassessment: respiratory therapy in the room. See triage assessment. ha1 02:00 Reassessment: eyes closed. General: Appears Behavior is calm, cooperative. Respiratory: ha1 Airway is patent Respiratory effort is even, unlabored, Respiratory pattern is regular, symmetrical. 03:00 Reassessment: Patient and/or family updated on plan of care and expected duration. Pain ha1 level reassessed. eyes closed. 03:00 Respiratory: Airway is patent Respiratory effort is even, unlabored, Respiratory ha1 pattern is regular, symmetrical. 04:00 Reassessment: Patient and/or family updated on plan of care and expected duration. Pain ha1 level reassessed. 04:00 Reassessment:. Respiratory: Airway is patent Respiratory effort is even, unlabored, ha1 Respiratory pattern is regular, symmetrical. 05:00 Reassessment: Patient and/or family updated on plan of care and expected duration. Pain ha1 level reassessed. General: Appears comfortable, Behavior is calm, cooperative. Respiratory: Airway is patent Respiratory effort is even, unlabored, Respiratory pattern is regular, symmetrical. Vital Signs: 00:13 BP 130 / 62; Pulse 92; Resp 25 S; Temp 97.9(A); Pulse Ox 97% on 15 lpm Non-rebreather ha1 mask; Weight 131.54 kg; Height 5 ft. 7 in. ; 02:00 BP 113 / 59; Pulse 66; Resp 20 S; Pulse Ox 97% on BiPAP; ha1 03:00 BP 117 / 57; Pulse 60; Resp 17 S; Pulse Ox 95% on BiPAP; ha1 04:00 BP 124 / 63; Pulse 57; Resp 18 S; Pulse Ox 99% on 30 lpm BiPAP; ha1 05:00 BP 121 / 66; Pulse 65; Resp 18 S; Pulse Ox 100% on 30 lpm BiPAP; ha1 05:30 BP 129 / 59; Pulse 88; Resp 20 S; Pulse Ox 99% on 30 lpm BiPAP; ha1 00:13 Body Mass Index 45.42 (131.54 kg, 170.18 cm) ha1 ED Course: 00:13 Patient arrived in ED. sb4 00:13 Arm band placed on right wrist. ha1 00:13 Patient has correct armband on for positive identification. Placed in gown. Bed in low ha1 position. Call light in reach. Side rails up X2. 00:22 Andrea Willson MD is Attending Physician. kdr 00:30 Beth French RN is Primary Nurse. ha1 00:30 Inserted saline lock: 22 gauge in right wrist, using aseptic technique. Blood collected.ha1 00:40 Triage completed. ha1 00:40 XRAY Chest (1 view) Sent. ha1 00:41 XRAY Chest (1 view) In Process Unspecified. EDMS 00:41 Basic Metabolic Panel Sent. ha1 00:41 CBC with Diff Sent. ha1 00:41 LFT's Sent. ha1 00:41 NT PRO-BNP Sent. ha1 00:41 Troponin HS Sent. ha1 01:08 US Extremity Venous Unilateral Ltd In Process Unspecified. EDMS 03:50 Sarah Young MD is Hospitalizing Provider. kdr 03:56 Sarwat Olvera is Hospitalizing Provider. kdr 06:36 No provider procedures requiring assistance completed. Patient admitted, IV remains in ha1 place. Administered Medications: No medications were administered Medication: 06:37 VIS not applicable for this client. ha1 Outcome: 03:51 Decision to Hospitalize by Provider. kdr 06:36 Admitted to ER Hold. [facility]. ha1 06:36 Condition: stable 06:36 Discharge instructions given to patient, Instructed on the need for admit, Demonstrated understanding of instructions. 10:27 Patient left the ED. kc6 Signatures: Dispatcher [employer] Andrea Martines MD MD kdr Prokisch, Amanda, RN RN ap3 Beth French RN RN ha1 Zoey Ortega RN RN kc6 Yanelis John PA-C PA-C sb4 Corrections: (The following items were deleted from the chart) 06:40 00:13 Reassessment: respiratory therapy in the room. see triage assessment ha1 ha1
--- NOTE | 2023-01-24 03:52 | EDPHYS ---
Physician Documentation [facility] Name: Vikki Zamudio Age: 62 yrs Sex: Female : 1960 Arrival Date: 01/24/2023 Time: 00:11 Bed 14 Private MD: ED Physician Andrea Willson HPI: 01/24 03:52 This 62 yrs old Female presents to ER via EMS with complaints of Chest pain and kdr shortness of breath. 03:52 Patient states that she was at home tonight her usual state of health when she suddenly kdr had chest discomfort. She says it feels like there is a heavy weight on her chest. She also complains of increasing shortness of breath. She had similar symptoms previously. She has been admitted often for similar evaluations. Patient is otherwise stable on BiPAP on arrival in the ED.. Onset: The symptoms/episode began/occurred suddenly, just prior to arrival. Severity of symptoms: At their worst the symptoms were mild moderate just prior to arrival, in the emergency department the symptoms are unchanged. The patient has experienced similar episodes in the past, chronically. The patient has been recently been admitted at [facility], was discharged last week. Historical: - Allergies: 00:40 No Known Allergies; ha1 - PMHx: 00:40 CHF; COPD; GERD; High Cholesterol; Hypercarbia; Hypertension; Hypothyroidism; Panic ha1 Attacks; Sleep Apnea; - PSHx: 00:40 section; ha1 - Immunization history:: Adult Immunizations unknown. - Social history:: Smoking status: Patient reports the use of cigarette tobacco products, denies chronic smoking, but will smoke occasionally. ROS: 03:52 Constitutional: Negative for fever, chills, and weight loss, Eyes: Negative for injury, kdr pain, redness, and discharge, ENT: Negative for injury, pain, and discharge, Neck: Negative for injury, pain, and swelling, Abdomen/GI: Negative for abdominal pain, nausea, vomiting, diarrhea, and constipation, Back: Negative for injury and pain, : Negative for injury, bleeding, discharge, and swelling, MS/Extremity: Negative for injury and deformity, Skin: Negative for injury, rash, and discoloration, Neuro: Negative for headache, weakness, numbness, tingling, and seizure activity. Psych: Negative for depression, anxiety, suicide ideation, homicidal ideation, and hallucinations, Allergy/Immunology: Negative for hives, rash, and allergies, Endocrine: Negative for neck swelling, polydipsia, polyuria, polyphagia, and marked weight changes, Hematologic/Lymphatic: Negative for swollen nodes, abnormal bleeding, and unusual bruising. 03:52 Cardiovascular: Positive for chest pain, edema, Right leg swollen greater than left, Negative for orthopnea, palpitations, paroxysmal nocturnal dyspnea. Exam: 03:52 Constitutional: This is a well developed, well nourished patient who is awake, alert, kdr and in mild distress. Head/Face: Normocephalic, atraumatic. Neck: Trachea midline, no thyromegaly or masses palpated, and no cervical lymphadenopathy. Supple, full range of motion without nuchal rigidity, or vertebral point tenderness. No Meningismus. Chest/axilla: Normal chest wall appearance and motion. Nontender with no deformity. No lesions are appreciated. Cardiovascular: Regular rate and rhythm with a normal S1 and S2. No gallops, murmurs, or rubs. Normal PMI, no JVD. No pulse deficits. Abdomen/GI: Soft, non-tender, with normal bowel sounds. No distension or tympany. No guarding or rebound. No evidence of tenderness throughout. Back: No spinal tenderness. No costovertebral tenderness. Full range of motion. Skin: Warm, dry with normal turgor. Normal color with no rashes, no lesions, and no evidence of cellulitis. MS/ Extremity: Pulses equal, no cyanosis. Neurovascular intact. Full, normal range of motion. 03:52 Cardiovascular: Edema: 1+ edema to level of right midcalf, right ankle, right foot and right toes, pedal edema, that is mild. Vital Signs: 00:13 BP 130 / 62; Pulse 92; Resp 25 S; Temp 97.9(A); Pulse Ox 97% on 15 lpm Non-rebreather ha1 mask; Weight 131.54 kg; Height 5 ft. 7 in. ; 02:00 BP 113 / 59; Pulse 66; Resp 20 S; Pulse Ox 97% on BiPAP; ha1 03:00 BP 117 / 57; Pulse 60; Resp 17 S; Pulse Ox 95% on BiPAP; ha1 04:00 BP 124 / 63; Pulse 57; Resp 18 S; Pulse Ox 99% on 30 lpm BiPAP; ha1 05:00 BP 121 / 66; Pulse 65; Resp 18 S; Pulse Ox 100% on 30 lpm BiPAP; ha1 05:30 BP 129 / 59; Pulse 88; Resp 20 S; Pulse Ox 99% on 30 lpm BiPAP; ha1 00:13 Body Mass Index 45.42 (131.54 kg, 170.18 cm) ha1 MDM: 03:51 Patient medically screened. kdr 03:52 Data reviewed: vital signs, nurses notes, lab test result(s), radiologic studies. kdr 01/24 00:24 Order name: Basic Metabolic Panel; Complete Time: 04:30 kdr 01/24 00:24 Order name: CBC with Diff; Complete Time: 04:30 kdr 01/24 00:24 Order name: LFT's; Complete Time: 04:30 kdr 01/24 00:24 Order name: NT PRO-BNP; Complete Time: 04:30 kdr 01/24 00:24 Order name: Troponin HS; Complete Time: 04:30 kdr 01/24 04:39 Order name: SARS RAPID sb4 01/24 04:39 Order name: Flu sb4 01/24 05:06 Order name: ABG sb4 01/24 06:10 Order name: ABG Arterial Blood Gas EDMS 01/24 10:27 Order name: Troponin High Sensitivity EDMS 01/24 00:24 Order name: XRAY Chest (1 view) kdr 01/24 00:35 Order name: US Extremity Venous Unilateral Ltd kdr 01/24 01:59 Order name: BIPAP as6 01/24 00:24 Order name: EKG; Complete Time: 00:25 kdr 01/24 00:24 Order name: Cardiac monitoring; Complete Time: 00:34 kdr 01/24 00:24 Order name: EKG - Nurse/Tech; Complete Time: 00:34 kdr 01/24 00:24 Order name: IV Saline Lock; Complete Time: 00:41 kdr 01/24 00:24 Order name: Labs collected and sent; Complete Time: 00:41 kdr 01/24 00:24 Order name: O2 Per Protocol; Complete Time: 00:41 kdr 01/24 00:24 Order name: O2 Sat Monitoring; Complete Time: 00:41 kdr Administered Medications: No medications were administered Disposition Summary: 01/24/23 03:51 Hospitalization Ordered Hospitalization Status: Inpatient Admission kdr Condition: Fair kdr Problem: an acute exacerbation kdr Symptoms: have improved kdr Bed/Room Type: Standard kdr Provider: Sarwat Olvera(01/24/23 03:56) kdr Location: Telemetry/MedSurg (Inpatient)(01/24/23 09:56) dw Room Assignment: 205(01/24/23 09:56) dw Diagnosis - Chest pain, unspecified kdr - Unstable angina kdr - Shortness of breath kdr Forms: - Medication Reconciliation Form kdr - SBAR form kdr Signatures: Dispatcher [employer] EDMS Sheryl Olivia RN RN mw Dayanna Almanzar RN RN dw Andrea Willson MD MD kdr Beth French RN RN haYanelis Rosa PA-C PARyan sb4 Corrections: (The following items were deleted from the chart) 03:56 03:51 Sarah Young kdr kdr 05:19 03:51 Telemetry/MedSurg (Inpatient) kdr mw 05:19 03:51 kdr mw 09:56 05:19 [facility] ER HOLD mw dw 09:56 05:19 ERHOLD- mw dw
--- NOTE | 2023-01-24 04:52 | P.HP ---
Certification for Inpatient Patient admitted to: Inpatient With expected LOS: >2 Midnights Patient will require the following post-hospital care: None Practitioner: I am a practitioner with admitting privileges, knowledge of patient current condition, hospital course, and medical plan of care. Services: Services provided to patient in accordance with Admission requirements found in Title 42 Section 412.3 of the Code of Federal Regulations Patient History Date of Service: 01/24/23 Primary Care Provider: Lee Reason for admission: Chest Pain, Acute on Chronic Respiratory Failure History of Present Illness: Ms. Zamudio is a 62-year-old female with past medical history of chronic hypercapnic respiratory failure secondary to COPD, pulmonary hypertension, obstructive sleep apnea, chronic atrial fibrillation, dyslipidemia, hypothyroidism, GERD, bipolar disorder, chronic diastolic CHF, and hypertension who presented to the emergency department via EMS with complaints of chest pain and shortness of breath. She states that it feels like she has had a large amount of weight on her chest. EMS had to place her on a nonrebreather to get her sats up and she required bipap upon arrival to ED. Her chest xray showed "Prominent interstitial markings suggestive of interstitial edema. Hazy bibasilar opacification. Left hemidiaphragm is obscured which can be seen with left pleural effusion, as well as left lower lobe consolidation or atelectasis." EKG without acute changes. Her labs are significant for sodium 133, chloride 1 11, CO2 37, hemoglobin 10.3, BNP 690, troponin WNL. ABG pending. ED provider wishes to admit patient for further management of chest pain and acute on chronic respiratory failure. Allergies No Known Allergies Allergy (Verified 10/19/22 22:27) Home medications list reviewed: Yes Home Medications: Apixaban [Eliquis] 5 mg PO BID 10/19/22 Atorvastatin Calcium 20 mg PO BEDTIME 10/19/22 Gabapentin 300 mg PO TID 10/19/22 Levothyroxine [Synthroid*] 88 mcg PO [id number] 10/19/22 Roflumilast [Daliresp] 500 mcg PO DAILY 10/19/22 Ropinirole HCl 1 tab PO BEDTIME 10/19/22 acetaZOLAMIDE [Acetazolamide] 250 mg PO DAILY 10/19/22 clonazePAM [Clonazepam] 0.5 mg PO DAILY PRN 10/19/22 Pantoprazole [Protonix Tab*] 40 mg PO DAILYAC #30 tab 12/13/22 Spironolactone [Aldactone*] 25 mg PO BID #60 tab 12/13/22 predniSONE [Deltasone*] 10 mg PO DAILY #30 tab 12/13/22 - Past Medical/Surgical History Diabetic: No -: Severe COPD, home oxygen/NIV,Pulmonary-Dr. Do -: Mild pulmonary hypertension -: Hypothyroidism -: Bipolar disorder -: Hypertension -: Chronic low back pain -: Obstructive sleep apnea -: GERD -: HLD -: GERD -: Appendectomy -: Psychosocial/ Personal History: She lives with a partner. She has 1 child. She is currently disabled. - Family History Father -: Heart disease, Hypertension, Diabetes Notes: from CHF Mother -: Heart disease, Hypertension, Diabetes Notes: from CHF Brother -: Diabetes Sister -: Heart disease, Diabetes Notes: from CHF - Social History Smoking Status: Current every day smoker Alcohol use: No CD- Drugs: No Caffeine use: No Place of Residence: Home Review of Systems Respiratory: Shortness of Breath Cardiovascular: Chest Pain Physical Examination - Vital Signs Temperature: 97.9 F Blood Pressure: 117/57 Pulse: 60 Respirations: 17 Pulse Ox (%): 95 (bipap) - Physical Exam General: Alert, In no apparent distress, Obese HEENT: Atraumatic, EOMI, Sclerae nonicteric Neck: Supple, 2+ carotid pulse no bruit Respiratory: Crackles/rales, Expiratory wheezes Cardiovascular: Regular rate/rhythm, Normal S1 S2 Gastrointestinal: Normal bowel sounds, No tenderness Musculoskeletal: No tenderness Integumentary: No rashes Neurological: Normal speech, Normal affect - Studies Laboratory Data (last 24 hrs) 01/24/23 00:30: WBC 8.50, Hgb 10.3 L, Hct 33.5 L, Plt Count 113 L 01/24/23 00:30: Sodium 133 L, Potassium 3.6, BUN 14, Creatinine 0.83, Glucose 145 H, Total Bilirubin 0.4, AST 14 L, ALT 16, Alkaline Phosphatase 95 Assessment and Plan - Problems (Diagnosis) (1) Chest pain Current Visit: Yes Status: Acute Qualifiers: Chest pain type: unspecified Qualified Code(s): R07.9 - Chest pain, unspecified (2) Acute on chronic respiratory failure with hypoxia and hypercapnia Current Visit: Yes Status: Acute (3) Atrial fibrillation Current Visit: Yes Status: Chronic Qualifiers: Atrial fibrillation type: paroxysmal Qualified Code(s): I48.0 - Paroxysmal atrial fibrillation (4) COPD with acute exacerbation Current Visit: Yes Status: Acute (5) Morbid obesity Current Visit: Yes Status: Chronic (6) CHF (congestive heart failure) Current Visit: Yes Status: Chronic Qualifiers: Heart failure type: diastolic Heart failure chronicity: acute on chronic Qualified Code(s): I50.33 - Acute on chronic diastolic (congestive) heart failure (7) Hypertension Current Visit: Yes Status: Chronic Qualifiers: Hypertension type: primary hypertension Qualified Code(s): I10 - Essential (primary) hypertension (8) Hypothyroidism Current Visit: Yes Status: Chronic Qualifiers: Hypothyroidism type: acquired Qualified Code(s): E03.9 - Hypothyroidism, unspecified (9) Nicotine dependence Current Visit: Yes Status: Chronic Qualifiers: Nicotine product type: cigarettes Substance use status: uncomplicated Qualified Code(s): F17.210 - Nicotine dependence, cigarettes, uncomplicated (10) Obesity hypoventilation syndrome Current Visit: Yes Status: Chronic (11) Chronic anemia Current Visit: Yes Status: Chronic - Plan Patient is admitted for chest pain and acute on chronic respiratory failure. Consult cardiology. Trend troponin. Monitor on telemetry. Obtain echocardiogram. Last echo done in September 2022 showed poor windows, tricuspid regurgitation, and recommended contrast echocardiogram. Consult pulmonology. Continue bipap as needed. PRN bronchodilators. ABG pending. Patient continues to smoke cigarettes daily. Cessation advised. Nicotine patch provided. Encouraged incentive spirometry Continue home clonazepam to avoid benzodiazepine withdrawal Monitor and replete electrolytes per protocol. Reconcile and continue home medications. Eliquis for VTE prophylaxis. Full code. Discharge Plan: Home Plan to discharge in: Greater than 2 days - Advance Directives Does patient have a Living Will: No Does patient have a Durable POA for Healthcare: No - Code Status/Comfort Care Code Status Assessed: Yes Code Status: Full Code Physician Review: Patient Assessed, Agree with Above Assessment and Plan Critical Care: No Time Spent Managing Pts Care (In Minutes): 50
[2023-01-24 05:46] LABS: SARS-CoV-2 Antigen Rapid Res Negative (Negative)
[2023-01-24 06:09] LABS: Arterial Blood Carboxyhemoglob 1.3 % (0-1.5); Blood Gas Oxyhemoglobin 95.9 % (94-97); Blood O2 Saturation 98.5 % (92-98.5)
[2023-01-24] MEDS ORDERED: ALBUTEROL 2.5 MG/3 ML NEB SOL NEB PRN (06:22)
[2023-01-24] MEDS ORDERED: ACETAMINOPHEN 500 MG TAB PO PRN (06:22)
[2023-01-24] MEDS ORDERED: ONDANSETRON 4 MG/2 ML VIAL IV PRN (06:22)
[2023-01-24] MEDS ORDERED: IPRATROPIUM BROM 0.5MG/2.5ML NEB PRN ×2 (06:22→08:00)
[2023-01-24 06:29] VITALS: BMI 43.6
[2023-01-24] MEDS ORDERED: PNEUMOCOCCAL VACCINE 0.5 ML IMVAC ONE (08:00)
[2023-01-24] MEDS: ASPIRIN EC 81 MG TAB PO SCH (08:49)
[2023-01-24] MEDS: APIXABAN 5 MG TABLET PO SCH ×2 (08:49→20:49)
[2023-01-24] MEDS ORDERED: ASPIRIN EC 81 MG TAB PO ONE (08:52)
[2023-01-24] MEDS ORDERED: APIXABAN 5 MG TABLET ONE (08:52)
[2023-01-24] MEDS: ALBUTEROL 2.5 MG/3 ML NEB SOL NEB SCH ×3 (11:00→20:15)
--- NOTE | 2023-01-24 11:08 | P.CNS ---
Date of Consult: 01/24/23 Reason for Consult: Respiratory failure hypoxemia Primary Care Provider: Lee Chief Complaint: Chest Pain, Acute on Chronic Respiratory Failure History of Present Illness: Patient is 62 years of age with a history of terminal COPD sleep apnea apparently she woke up in the middle of the night prior to go during going to the bathroom checked her pulse ox and dropped down to 38% while she was on BiPAP it took her 2 hours to bring it back up to 90% meanwhile she called the EMS and was admitted to the hospital where her PCO2 was 111 and states that she has been compliant with her medications at home including BiPAP started complaining of some retrosternal discomfort denies any swelling of her legs denies any cough sputum production Allergies No Known Allergies Allergy (Verified 10/19/22 22:27) Home Medications: Apixaban [Eliquis] 5 mg PO BID 10/19/22 Atorvastatin Calcium 20 mg PO BEDTIME 10/19/22 Gabapentin 300 mg PO TID 10/19/22 Levothyroxine [Synthroid*] 88 mcg PO [id number] 10/19/22 Roflumilast [Daliresp] 500 mcg PO DAILY 10/19/22 Ropinirole HCl 1 tab PO BEDTIME 10/19/22 acetaZOLAMIDE [Acetazolamide] 250 mg PO DAILY 10/19/22 clonazePAM [Clonazepam] 0.5 mg PO DAILY PRN 10/19/22 Pantoprazole [Protonix Tab*] 40 mg PO DAILYAC #30 tab 12/13/22 Spironolactone [Aldactone*] 25 mg PO BID #60 tab 12/13/22 predniSONE [Deltasone*] 10 mg PO DAILY #30 tab 12/13/22 Lidocaine 4% Patch [Lidoderm 5% Patch*] 1 patch TD DAILY 01/24/23 - Past Medical/Surgical History Diabetic: No -: Severe COPD, home oxygen/NIV,Pulmonary-Dr. Do -: Mild pulmonary hypertension -: Hypothyroidism -: Bipolar disorder -: Hypertension -: Chronic low back pain -: Obstructive sleep apnea -: GERD -: HLD -: GERD -: Appendectomy -: Psychosocial/ Personal History: She lives with a partner. She has 1 child. She is currently disabled. - Family History Father Medical History: Heart disease, Hypertension, Diabetes Notes: from CHF Mother Medical History: Heart disease, Hypertension, Diabetes Notes: from CHF Brother Medical History: Diabetes Sister Medical History: Heart disease, Diabetes Notes: from CHF - Social History Smoking Status: Current some day smoker Alcohol use: No CD- Drugs: No Caffeine use: No Place of Residence: Home Review of Systems 10-point ROS is otherwise unremarkable General: Weakness Respiratory: Shortness of Breath Cardiovascular: Chest Pain Physical Examination Temp Pulse Resp BP Pulse Ox 97.9 F 79 17 128/79 97 01/24/23 08:00 01/24/23 08:00 01/24/23 08:00 01/24/23 08:00 01/24/23 08:00 General: Alert, Oriented x3, Mild distress Neck: Supple Respiratory: Clear to auscultation bilaterally, Diminished Cardiovascular: No edema, Regular rate/rhythm, Normal S1 S2 Gastrointestinal: Normal bowel sounds, Soft and benign Musculoskeletal: No clubbing, No swelling, No contractures Laboratory Data (last 24 hrs) 01/24/23 00:30: WBC 8.50, Hgb 10.3 L, Hct 33.5 L, Plt Count 113 L 01/24/23 00:30: Sodium 133 L, Potassium 3.6, BUN 14, Creatinine 0.83, Glucose 145 H, Total Bilirubin 0.4, AST 14 L, ALT 16, Alkaline Phosphatase 95 - Problems (1) Acute on chronic respiratory failure with hypoxia and hypercapnia Current Visit: Yes Status: Acute Plan: Patient is 62 years of age terminal COPD admitted with hypoxemia hypercapnia currently on BiPAP of contacted [facility] patient to see if we can change her to a different mode of ventilation she did not like the noninvasive ventilator before may be BiPAP with a backup rate may be helpful for her continue with bronchodilators patient is on spironolactone we will also add Lasix possibility of diastolic heart failure continue with the present medication at home TSH level is pending there is no evidence of sepsis chest x- ray shows some haziness in the lower zones White count is normal BNP is only mildly elevated also placed patient on continuous pulse oximetry
[2023-01-24] MEDS: FUROSEMIDE 20 MG/ 2ML VIAL IV SCH ×2 (11:25→16:17)
[2023-01-24] MEDS: predniSONE 20 MG TAB PO SCH ×2 (11:25→20:49)
[2023-01-24] MEDS: ROFLUMILAST 500 MCG TABLET PO SCH (11:25)
[2023-01-24 12:16] LABS: Arterial Blood Carboxyhemoglob 1.6 % (0-1.5); Blood Gas Oxyhemoglobin 80.7 % (94-97); Blood O2 Saturation 83.3 % (92-98.5)
--- NOTE | 2023-01-24 13:29 | ECHO ---
HEIGHT: 5 ft 8 in WEIGHT: 287 lb 0 oz DATE OF STUDY: REFER DR: Yanelis John 2-DIMENSIONAL: YES M.MODE: YES DOPPLER: YES COLOR FLOW: YES TDS: PORTABLE: YES DEFINITY: BUBBLE STUDY: DIAGNOSIS: CHEST PAIN/ CONGESTIVE HEART FAILURE CARDIAC HISTORY: CATHERIZATION: SURGERY: PROSTHETIC VALVE: PACEMAKER: MEASUREMENTS (cm) DIASTOLIC (NORMALS) SYSTOLIC (NORMALS) IVSd 1.2 (0.6-1.2) LA Diam 4.6 (1.9-4.0) LVEF 60% LVIDd 3.7 (3.5-5.7) LVIDs 2.5 (2.0-3.5) %FS 31% LVPWd 1.1 (0.6-1.2) Ao Diam 2.8 (2.0-3.7) 2 DIMENSIONAL ASSESSMENT: RIGHT ATRIUM: NORMAL LEFT ATRIUM: NORMAL RIGHT VENTRICLE: NORMAL LEFT VENTRICLE: NORMAL TRICUSPID VALVE: NORMAL MITRAL VALVE: NORMAL PULMONIC VALVE: NORMAL AORTIC VALVE: NORMAL PERICARDIAL EFFUSION: NONE AORTIC ROOT: NORMAL LEFT VENTRICULAR WALL MOTION: NORMAL. DOPPLER/COLOR FLOW: MILD TRICUSPID REGURGITATON - SEVERE PULMONARY HYPERTENSION. COMMENTS: VERY TECHNICALLY DIFFICULT STUDY SEVERE PULMONARY HYPERTENSION 65mmHg OVERALL NORMAL LEFT VENTRICULAR SIZE AND FUNCTION NO EFFUSION TECHNOLOGIST: EYAD GARCIA
[2023-01-24 13:32] LABS: Specific Gravity 1.008 (1.005-1.030); Urine Bacteria <20 /HPF (<20); Urine Bilirubin NEGATIVE (Negative); Urine Blood Trace (Negative); Urine Clarity Clear (Clear); Urine Color Colorless (Yellow); Urine Glucose NEGATIVE (Negative); Urine Mucus Slight /HPF (None Seen); Urine Protein NEGATIVE (Negative); Urine RBC <5 /HPF (None Seen); Urine Urobilinogen Normal (Normal)
[2023-01-24] MEDS: GABAPENTIN 300 MG CAP PO SCH ×2 (13:33→20:49)
--- NOTE | 2023-01-24 14:04 | RAD REPORT ---
EXAM DESCRIPTION: US - Extremity Venous Uni Ltd - 01/24/2023 1:06 am CLINICAL HISTORY: The patient is 62 years old and is Female; SWELLING Extremity Venous Uni Ltd TECHNIQUE: Real-time duplex ultrasound scan of the right lower extremity veins integrating B-mode tw o-dimensional vascular structure, Doppler spectral analysis, color flow Doppler imaging and compressi on. COMPARISON: No relevant prior studies available. FINDINGS: Deep veins: Unremarkable. No DVT in the visualized common femoral, femoral, or poplite al veins. The veins demonstrate normal color flow, are normally compressible where visualized, with normal phasic flow and/or augmentation response. Soft tissues: No acute findings. IMPRESSION: No evidence of DVT in the right lower extremity veins. Electronically signed by: Freddy Pulido MD 01/24/2023 1:36 AM CDT Due to temporary technical issues with the PACS/Fluency reporting system, reports are being signed by the in house radiologists without review as a courtesy to insure prompt reporting. The interpreting radiologist is fully responsible for the content of the report.
[2023-01-24] MEDS: ARFORMOTEROL TARTRATE 15 MCG/2 ML VIAL.NEB NEB SCH ×2 (14:06→20:15)
--- NOTE | 2023-01-24 14:06 | RAD REPORT ---
EXAM DESCRIPTION: RAD - Chest Single View - 01/24/2023 12:39 am CLINICAL HISTORY: The patient is 62 years old and is Female; DYSPNEA TECHNIQUE: Frontal view of the chest. COMPARISON: No relevant prior studies available. FINDINGS: Lungs: Prominent interstitial markings suggestive of interstitial edema. Hazy bibasilar opacification. Pleural space: Left hemidiaphragm is obscured which can be seen with left pleural effusion, as we ll as left lower lobe consolidation or atelectasis. No pneumothorax. Heart: Unremarkable. Mediastinum: Unremarkable. Bones/joints: Unremarkable. IMPRESSION: 1. Prominent interstitial markings suggestive of interstitial edema. 2. Hazy bibasilar opacification. 3. Left hemidiaphragm is obscured which can be seen with left pleural effusion, as well as left low er lobe consolidation or atelectasis. Electronically signed by: Freddy Pulido MD 01/24/2023 1:42 AM CDT Due to temporary technical issues with the PACS/Fluency reporting system, reports are being signed by the in house radiologists without review as a courtesy to insure prompt reporting. The interpreting radiologist is fully responsible for the content of the report.
--- NOTE | 2023-01-24 16:28 | CON ---
Date of Consultation: 01/24/2023 Reason For Consultation: Chest pain. Respiratory failure. History Of Present Illness: Ms. Zamudio is 62 years old, has a history of diastolic congestive hea rt failure, COPD, gastroesophageal reflux disease, hypertension, dyslipidemia, panic disorder, and hy pothyroidism, comes in with respiratory failure, pO2 of 156, pCO2 of 111 with a pH of 7.14. Her BNP was 690. Troponin was mildly elevated at a normal ejection fraction in September of 2022 and with a te chnically difficult study. EKG showed atrial fibrillation, rate controlled. Most of her complaint w as really dyspnea on exertion. Denied PND or orthopnea. Has some pedal edema. Denied palpitations or syncope. Denied any fevers or chills. Past Medical History: As stated above. Allergies: NONE. Medications: Presently includes Eliquis, aspirin, inhalers, Diamox, Lasix, Synthroid, Neurontin, Ald actone, and steroids. Review of Systems: Noncontributory. Social History: Noncontributory. Family History: Noncontributory. Physical Examination: Vital Signs: Stable, on BiPAP. Atrial fibrillation, rate controlled. No fever. HEENT: Negative. Neck: Supple with no bruit. Chest: Revealed expiratory wheezing. Cardiac: Revealed atrial fibrillation. No murmurs, gallops, or rubs. Abdomen: Benign. Extremities: Revealed trace edema. Diagnostic Data: Showed BNP of 690. Rest of the blood work is fairly unremarkable. Impression And Plan: 1.Acute on chronic obstructive pulmonary disease exacerbation. Echocardiogram is pending, I believe . 2.Chronic atrial fibrillation, on Eliquis. 3.Diastolic congestive heart failure, well controlled, that is chronic. 4.History of hypertension. 5.Dyslipidemia. 6.Panic disorder. 7.Hypothyroidism. 8.Gastroesophageal reflux disease. Again, I will continue the present treatment including antibiotics, Eliquis, Diamox, Lasix, steroids, Aldactone. We will continue to follow. We will see what the echo shows. NB/MODL Voice ID: [id number] Report ID: [id number]
--- NOTE | 2023-01-24 18:39 | P.PN ---
Date of Service: 01/24/23 Patient seen and examined. Multiple recurrent admissions for COPD exacerbation, obesity hypoventilation with hypercapnia. Continue BiPAP/CPAP. Pulmonary input appreciated Bronchodilators-arformoterol Oral prednisone Roflumilast Spironolactone. Pulmonary to follow.
[2023-01-24] MEDS: ROPINIROLE HCL 1 MG TAB PO SCH (20:49)
[2023-01-24] MEDS: SPIRONOLACTONE 25 MG TABLET PO SCH (20:49)
[2023-01-24] MEDS: ATORVASTATIN 20 MG TAB PO SCH (20:49)
[2023-01-24] MEDS ORDERED: APIXABAN 5 MG TABLET PO SCH (21:00)
[2023-01-24] MEDS: TIZANIDINE 4 MG TABLET PO PRN (21:30)
[2023-01-25] MEDS: ALBUTEROL 2.5 MG/3 ML NEB SOL NEB SCH ×4 (01:25→20:00)
[2023-01-25] MEDS: LEVOTHYROXINE SOD 0.088 MG TAB PO SCH (05:43)
[2023-01-25] MEDS ORDERED: PANTOPRAZOLE 40MG TABLET PO SCH (06:30)
[2023-01-25 06:35] LABS: Absolute Lymphocytes (CBC) 0.4 K/uL (0.7-4.9); Hematocrit 30.3 % (36.0-45.0); MCV 84.6 fL (80-100); MPV 7.8 fL (7.6-11.3); RBC Red Blood Cell Count 3.59 M/uL (3.86-4.86)
[2023-01-25 07:27] LABS: Magnesium 2.1 mg/dL (1.6-2.4); Phosphorus 4.1 mg/dL (2.5-4.9); Potassium 4.3 mEq/L (3.5-5.1); Thyroid Stimulating Hormone 0.25 uIU/mL (0.358-3.740)
[2023-01-25] MEDS: ARFORMOTEROL TARTRATE 15 MCG/2 ML VIAL.NEB NEB SCH ×2 (07:32→20:00)
[2023-01-25] MEDS: PANTOPRAZOLE 40MG TABLET PO SCH (07:35)
[2023-01-25 07:53] LABS: Basophilic Stippling 1+; Blood Morphology Comment NOTED (NOT SEEN); Platelet Estimate DECR
[2023-01-25] MEDS: LIDOCAINE 4% PATCH TD SCH (08:47)
[2023-01-25] MEDS: ROFLUMILAST 500 MCG TABLET PO SCH (08:48)
[2023-01-25] MEDS: SPIRONOLACTONE 25 MG TABLET PO SCH ×2 (08:49→20:20)
[2023-01-25] MEDS: predniSONE 20 MG TAB PO SCH ×2 (08:49→20:21)
[2023-01-25] MEDS: GABAPENTIN 300 MG CAP PO SCH ×3 (08:49→20:21)
[2023-01-25] MEDS: acetaZOLAMIDE 250 MG TAB PO SCH (08:49)
[2023-01-25] MEDS: APIXABAN 5 MG TABLET PO SCH ×2 (08:50→20:22)
[2023-01-25] MEDS: ASPIRIN EC 81 MG TAB PO SCH (08:50)
[2023-01-25] MEDS: FUROSEMIDE 20 MG/ 2ML VIAL IV SCH (08:50)
[2023-01-25] MEDS ORDERED: ROFLUMILAST 500 MCG TABLET PO SCH (09:00)
--- NOTE | 2023-01-25 09:28 | P.PN ---
Subjective Date of Service: 01/25/23 Primary Care Provider: Lee Chief Complaint: Acute on chronic respiratory failure Subjective: Improving (Patient is improving did not experience significant episode of desat at night appears to me she may be complaining of orthopnea a pparently feels like she is drowning when she is lying back) Review of Systems General: Weakness Respiratory: Shortness of Breath Physical Examination - Vital Signs Temperature: 97.9 F Blood Pressure: 120/79 Pulse: 65 Respirations: 18 Pulse Ox (%): 95 - Physical Exam General: Alert, Oriented x3, Mild distress Respiratory: Clear to auscultation bilaterally, Diminished Cardiovascular: Regular rate/rhythm, Normal S1 S2 Assessment And Plan - Current Problems (Diagnosis) (1) Acute on chronic respiratory failure with hypoxia and hypercapnia Current Visit: Yes Status: Acute Plan: Patient admitted with respiratory failure and recurrent episodes may be having underlying heart failure continue with Lasix at home patient does have a BiPAP with a backup rate on average uses 4 hours at night patient to use her BiPAP tonight [employer]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 Lasix fluid restriction patient is compliant with her therapy at home if she is doing fine probably discharge her tomorrow on her regular medications plus Lasix 40 mg p.o. daily with fluid and salt restriction Physician Review: Patient Assessed, Agree with Above Assessment and Plan
[2023-01-25] MEDS: FUROSEMIDE 40 MG TABLET PO SCH (10:39)
[2023-01-25] MEDS: TIZANIDINE 4 MG TABLET PO PRN (12:11)
--- NOTE | 2023-01-25 15:15 | PN ---
Date of Progress Note: 01/25/2023 Ms. Zamudio came in with chest pain and respiratory failure. Today's blood gas are much improved. Her PO2 is 81, pH of 7.25, PCO2 of 53. Echo showed normal ejection fraction, very technically diffi cult study, pulmonary hypertension. The patient looks much better, feels much better. She is on inh chelsy, Eliquis, aspirin, Lipitor, Lasix, steroids, and Aldactone. She has a history of diastolic con gestive heart failure, chronic atrial fibrillation on Eliquis, COPD, hypertension, dyslipidemia. She is hemodynamically stable. I agree with her present regimen. We will continue to follow her. DESIRE/JENI Voice ID: [id number] Report ID: [id number]
[2023-01-25] MEDS ORDERED: CALCIUM GLUC 10% INJ 9.3 MEQ in NA CHLORIDE 0.9% 100 ML IV ONE (16:25)
--- NOTE | 2023-01-25 16:29 | P.PN ---
Subjective Date of Service: 01/25/23 Primary Care Provider: Lee Chief Complaint: Acute on chronic respiratory failure Patient reports spasms and pain in her hands I suspect is related to alkalosis. She was tolerating oxygen by nasal cannula during my assessment. She used BiPAP last night. Physical Examination - Vital Signs Temperature: 98.6 F Blood Pressure: 139/68 Pulse: 72 Respirations: 20 Pulse Ox (%): 91 Assessment And Plan - Current Problems (Diagnosis) (1) Metabolic alkalosis Current Visit: Yes Status: Acute (2) Acute on chronic respiratory failure with hypoxia and hypercapnia Current Visit: Yes Status: Acute (3) COPD with acute exacerbation Current Visit: Yes Status: Acute (4) Atrial fibrillation Current Visit: Yes Status: Chronic Qualifiers: Atrial fibrillation type: paroxysmal Qualified Code(s): I48.0 - Paroxysmal atrial fibrillation (5) Hypertension Current Visit: Yes Status: Chronic Qualifiers: Hypertension type: primary hypertension Qualified Code(s): I10 - Essential (primary) hypertension (6) Hypothyroidism Current Visit: Yes Status: Chronic Qualifiers: Hypothyroidism type: acquired Qualified Code(s): E03.9 - Hypothyroidism, unspecified (7) Morbid obesity Current Visit: Yes Status: Chronic (8) Obesity hypoventilation syndrome Current Visit: Yes Status: Chronic - Plan Physical Exam General: Alert, In no apparent distress, Obese Neck: Supple, no elevated JVD. Respiratory: Mild crackles/rales, expiratory wheezes, diminished breath sounds. Cardiovascular: Regular rate/rhythm, Normal S1 S2 Gastrointestinal: Normal bowel sounds, No tenderness Musculoskeletal: No tenderness Integumentary: No rashes Neurological: Normal speech, Normal affect. Plan: Continue BiPAP/CPAP, alternate with oxygen by nasal cannula. Pulmonary is following Bronchodilators-arformoterol Oral prednisone Roflumilast Spironolactone. IV calcium for carpopedal spasms secondary to alkalosis. Check ionized calcium level.
[2023-01-25] MEDS: ROPINIROLE HCL 1 MG TAB PO SCH (20:20)
[2023-01-25] MEDS: ATORVASTATIN 20 MG TAB PO SCH (20:21)
[2023-01-26] MEDS: TIZANIDINE 4 MG TABLET PO PRN ×3 (00:50→17:58)
[2023-01-26] MEDS: ALBUTEROL 2.5 MG/3 ML NEB SOL NEB SCH ×4 (01:45→20:00)
[2023-01-26 03:11] LABS: Absolute Lymphocytes (CBC) 0.5 K/uL (0.7-4.9); Hematocrit 29.7 % (36.0-45.0); Lymphocytes % 7.7 % (15.3-44.8); MCV 83.5 fL (80-100); MPV 8.1 fL (7.6-11.3); RBC Red Blood Cell Count 3.56 M/uL (3.86-4.86)
[2023-01-26 03:18] LABS: Potassium 4.9 mEq/L (3.5-5.1)
[2023-01-26] MEDS: LEVOTHYROXINE SOD 0.088 MG TAB PO SCH (06:15)
[2023-01-26] MEDS: PANTOPRAZOLE 40MG TABLET PO SCH (06:15)
[2023-01-26] MEDS: ARFORMOTEROL TARTRATE 15 MCG/2 ML VIAL.NEB NEB SCH ×2 (09:24→20:00)
[2023-01-26] MEDS: LIDOCAINE 4% PATCH TD SCH (10:15)
[2023-01-26] MEDS: FUROSEMIDE 40 MG TABLET PO SCH (10:16)
[2023-01-26] MEDS: ROFLUMILAST 500 MCG TABLET PO SCH (10:16)
[2023-01-26] MEDS: acetaZOLAMIDE 250 MG TAB PO SCH (10:17)
[2023-01-26] MEDS: SPIRONOLACTONE 25 MG TABLET PO SCH ×2 (10:17→20:23)
[2023-01-26] MEDS: GABAPENTIN 300 MG CAP PO SCH ×3 (10:17→20:23)
[2023-01-26] MEDS: predniSONE 20 MG TAB PO SCH (10:17)
[2023-01-26] MEDS: ASPIRIN EC 81 MG TAB PO SCH (10:17)
[2023-01-26] MEDS: APIXABAN 5 MG TABLET PO SCH ×2 (10:17→20:23)
--- NOTE | 2023-01-26 10:19 | P.PN ---
Subjective Date of Service: 01/26/23 Primary Care Provider: Lee Chief Complaint: Chronic respiratory failure Patient's condition has stabilized she is not experiencing any more nocturnal episodes of PND or orthopnea Review of Systems General: Weakness Respiratory: Shortness of Breath Physical Examination - Vital Signs Temperature: 97.3 F Blood Pressure: 136/62 Pulse: 65 Respirations: 23 Pulse Ox (%): 92 - Physical Exam General: Alert, Oriented x3 Cardiovascular: No edema, Normal S1 S2, Abnormal S3 Assessment And Plan - Current Problems (Diagnosis) (1) Acute on chronic respiratory failure with hypoxia and hypercapnia Current Visit: Yes Status: Acute Plan: Acute on chronic respiratory failure patient stable patient to try her on BiPAP settings reviewed his has a backup rate possible discharge today with Lasix resume spironolactone low-dose prednisone 10 mg twice a day for a week then 10 mg once a day Discharge Plan: Home Physician Review: Patient Assessed, Agree with Above Assessment and Plan
--- NOTE | 2023-01-26 15:15 | P.PN ---
Subjective Date of Service: 01/26/23 Primary Care Provider: Lee Chief Complaint: Chronic respiratory failure Patient states she feels much better today. She has been tolerating oxygen by nasal cannula with SaO2 greater than 92%. She has been using BiPAP at night. Physical Examination - Vital Signs Temperature: 97.6 F Blood Pressure: 102/56 Pulse: 78 Respirations: 24 Pulse Ox (%): 93 Assessment And Plan - Current Problems (Diagnosis) (1) Metabolic alkalosis Current Visit: Yes Status: Acute (2) Acute on chronic respiratory failure with hypoxia and hypercapnia Current Visit: Yes Status: Acute (3) COPD with acute exacerbation Current Visit: Yes Status: Acute (4) Atrial fibrillation Current Visit: Yes Status: Chronic Qualifiers: Atrial fibrillation type: paroxysmal Qualified Code(s): I48.0 - Paroxysmal atrial fibrillation (5) Hypertension Current Visit: Yes Status: Chronic Qualifiers: Hypertension type: primary hypertension Qualified Code(s): I10 - Essential (primary) hypertension (6) Hypothyroidism Current Visit: Yes Status: Chronic Qualifiers: Hypothyroidism type: acquired Qualified Code(s): E03.9 - Hypothyroidism, unspecified (7) Morbid obesity Current Visit: Yes Status: Chronic (8) Obesity hypoventilation syndrome Current Visit: Yes Status: Chronic - Plan Physical Exam General: Alert, In no apparent distress, Obese Neck: Supple, no elevated JVD. Respiratory: Mild crackles/rales, expiratory wheezes, diminished breath sounds. Cardiovascular: Regular rate/rhythm, Normal S1 S2 Gastrointestinal: Normal bowel sounds, No tenderness Musculoskeletal: No tenderness Integumentary: No rashes Neurological: Normal speech, Normal affect. Plan: Continue BiPAP/CPAP, alternate with oxygen by nasal cannula. Pulmonary is following Bronchodilators-arformoterol Oral prednisone Roflumilast Spironolactone. Ionized calcium level is pending. Possible discharge tomorrow.
--- NOTE | 2023-01-26 16:38 | P.DS ---
Admission Date: 01/24/23 Discharge Date: 01/27/23 Primary Care Provider: Lee Disposition: ROUTINE DISCHARGE Discharge Condition: FAIR Reason for Admission: Chronic respiratory failure - Problems (1) Metabolic alkalosis Status: Acute (2) Acute on chronic respiratory failure with hypoxia and hypercapnia Status: Acute (3) COPD with acute exacerbation Status: Acute (4) Atrial fibrillation Status: Chronic Qualifiers: Atrial fibrillation type: paroxysmal Qualified Code(s): I48.0 - Paroxysmal atrial fibrillation (5) Hypertension Status: Chronic Qualifiers: Hypertension type: primary hypertension Qualified Code(s): I10 - Essential (primary) hypertension (6) Hypothyroidism Status: Chronic Qualifiers: Hypothyroidism type: acquired Qualified Code(s): E03.9 - Hypothyroidism, unspecified (7) Morbid obesity Status: Chronic (8) Obesity hypoventilation syndrome Status: Chronic Brief History of Present Illness: Ms. Zamudio is a 62-year-old female with past medical history of chronic hypercapnic respiratory failure secondary to COPD, pulmonary hypertension, obstructive sleep apnea, chronic atrial fibrillation, dyslipidemia, hypothyroidism, GERD, bipolar disorder, chronic diastolic CHF, and hypertension who presented to the emergency department via EMS with complaints of chest pain and shortness of breath. She states that it feels like she has had a large amount of weight on her chest. EMS had to place her on a nonrebreather to get her sats up and she required bipap upon arrival to ED. Her chest xray showed "Prominent interstitial markings suggestive of interstitial edema. Hazy bibasilar opacification. Left hemidiaphragm is obscured which can be seen with left pleural effusion, as well as left lower lobe consolidation or atelectasis." EKG without acute changes. Her labs are significant for sodium 133, chloride 111, CO2 37, hemoglobin 10.3, BNP 690, troponin WNL. Patient admitted for further management of chest pain and acute on chronic respiratory failure. Hospital Course: Troponin trended negative. Chest pain considered noncardiac. Patient treated with oral steroid, bronchodilator-arformoterol, Roflumilast and Aldactone. Pulmonary evaluated patient and assisted with management She used CPAP/BIPAP during the hospital stay. She developed spasms in both hands likely related to alkalosis. The symptoms improved the next day. Patient seen by pulmonary today and deemed stable for discharge. She is prescribed an increased dose of prednisone for 5 days followed by her home maintenance prednisone dose. Vital Signs/Physical Exam: Temp Pulse Resp BP Pulse Ox 97.6 F 78 24 H 102/56 L 93 01/26/23 15:15 01/26/23 15:15 01/26/23 15:15 01/26/23 15:15 01/26/23 15:15 General: Alert, In no apparent distress, Oriented x3, Obese HEENT: Mucous membr. moist/pink Neck: JVD not distended Respiratory: Clear to auscultation bilaterally, Normal air movement Cardiovascular: No edema, Regular rate/rhythm, Normal S1 S2 Gastrointestinal: Soft and benign, Non-distended Musculoskeletal: No swelling Integumentary: No rashes Neurological: Normal strength at 5/5 x4 extr Laboratory Data at Discharge: WBC 6.60 thou/uL (4.3-10.9) 01/26/23 02:41 Hgb 9.2 g/dL (12.0-15.0) L 01/26/23 02:41 Hct 29.7 % (36.0-45.0) L 01/26/23 02:41 Plt Count 128 thou/uL (152-406) L 01/26/23 02:41 Sodium 136 mEq/L (136-145) 01/26/23 02:41 Potassium 4.9 mEq/L (3.5-5.1) D 01/26/23 02:41 BUN 28 mg/dL (7-18) H 01/26/23 02:41 Creatinine 0.98 mg/dL (0.55-1.02) 01/26/23 02:41 Glucose 195 mg/dL (74-106) H 01/26/23 02:41 Phosphorus 4.1 mg/dL (2.5-4.9) 01/25/23 06:23 Magnesium 2.1 mg/dL (1.6-2.4) 01/25/23 06:23 Total Bilirubin 0.4 mg/dL (0.2-1.0) 01/24/23 00:30 AST 14 U/L (15-37) L 01/24/23 00:30 ALT 16 U/L (13-56) 01/24/23 00:30 Alkaline Phosphatase 95 U/L (45-117) 01/24/23 00:30 Triglycerides 49 mg/dL (<150) 01/25/23 06:23 Cholesterol 138 mg/dL (<200) 01/25/23 06:23 HDL Cholesterol 66 mg/dL (40-60) H 01/25/23 06:23 Cholesterol/HDL Ratio 2.09 01/25/23 06:23 Home Medications: Apixaban [Eliquis] 5 mg PO BID 10/19/22 Atorvastatin Calcium 20 mg PO BEDTIME 10/19/22 Gabapentin 300 mg PO TID 10/19/22 Levothyroxine [Synthroid*] 88 mcg PO [id number] 10/19/22 Roflumilast [Daliresp] 500 mcg PO DAILY 10/19/22 Ropinirole HCl 1 tab PO BEDTIME 10/19/22 acetaZOLAMIDE [Acetazolamide] 250 mg PO DAILY 10/19/22 clonazePAM [Clonazepam] 0.5 mg PO DAILY PRN 10/19/22 Pantoprazole [Protonix Tab*] 40 mg PO DAILYAC #30 tab 12/13/22 Spironolactone [Aldactone*] 25 mg PO BID #60 tab 12/13/22 predniSONE [Deltasone*] 10 mg PO DAILY #30 tab 12/13/22 Lidocaine 4% Patch [Lidoderm 5% Patch*] 1 patch TD DAILY 01/24/23 Tizanidine HCl [Zanaflex] 2 mg PO TID PRN 01/24/23 Furosemide [Lasix*] 40 mg PO DAILY #7 tab 01/26/23 predniSONE [Deltasone*] 10 mg PO BID #10 tab 01/26/23 New Medications: predniSONE [Deltasone*] 10 mg PO BID #10 tab Furosemide [Lasix*] 40 mg PO DAILY #7 tab Diet: AHA Activity: Ad kristopher Followup: Isai Do MD [ACTIVE - CAN ADMIT] - (Within 2 weeks) Time spent managing pt's care (in minutes): 36
[2023-01-26] MEDS: ATORVASTATIN 20 MG TAB PO SCH (20:24)
[2023-01-26] MEDS: predniSONE 10 MG TAB PO SCH (20:24)
[2023-01-26] MEDS: ROPINIROLE HCL 1 MG TAB PO SCH (20:24)
[2023-01-27] MEDS: ALBUTEROL 2.5 MG/3 ML NEB SOL NEB SCH ×2 (01:30→08:00)
[2023-01-27] MEDS ORDERED: MAGNES/ALUMIN/SIMET 30ML UCUP PO ONE (01:39)
[2023-01-27 04:16] LABS: Absolute Lymphocytes (CBC) 0.7 K/uL (0.7-4.9); Hematocrit 30.8 % (36.0-45.0); Lymphocytes % 10.3 % (15.3-44.8); MCV 83.4 fL (80-100); MPV 7.9 fL (7.6-11.3)
[2023-01-27 04:33] LABS: Potassium 4.5 mEq/L (3.5-5.1)
[2023-01-27] MEDS: PANTOPRAZOLE 40MG TABLET PO SCH (05:24)
[2023-01-27] MEDS: LEVOTHYROXINE SOD 0.088 MG TAB PO SCH (05:24)
[2023-01-27] MEDS: ARFORMOTEROL TARTRATE 15 MCG/2 ML VIAL.NEB NEB SCH (08:00)
[2023-01-27 08:04] VITALS: O2SAT 96
[2023-01-27 08:20] VITALS: BP 119/63; TEMP 97.5
[2023-01-27] MEDS: ROFLUMILAST 500 MCG TABLET PO SCH (08:53)
[2023-01-27] MEDS: APIXABAN 5 MG TABLET PO SCH (08:54)
[2023-01-27] MEDS: predniSONE 10 MG TAB PO SCH (08:54)
[2023-01-27] MEDS: SPIRONOLACTONE 25 MG TABLET PO SCH (08:54)
[2023-01-27] MEDS: acetaZOLAMIDE 250 MG TAB PO SCH (08:54)
[2023-01-27] MEDS: ASPIRIN EC 81 MG TAB PO SCH (08:54)
[2023-01-27] MEDS: FUROSEMIDE 40 MG TABLET PO SCH (08:55)
[2023-01-27] MEDS: GABAPENTIN 300 MG CAP PO SCH (08:55)
[2023-01-27] MEDS: LIDOCAINE 4% PATCH TD SCH (08:55)
--- NOTE | 2023-01-27 12:44 | PN ---
The patient admitted with diastolic congestive heart failure exacerbation, hypertension, dyslipidemia , COPD, chronic atrial fibrillation, on Eliquis. Blood gases have improved dramatically since discha rge. No blood gases were done today, but she is saturating at 95% on BiPAP. Her last creatinine was 0.98. She is in sinus rhythm. I have no further recommendations regarding Mrs. Zamudio. Continu e present regimen. She can go home whenever it is okay with Dr. Amaro. DESIRE/JENI Voice ID: [id number] Report ID: [id number]
--- NOTE | 2023-01-28 08:03 | EKG ---
Test Date: 2023-01-24 Test Time: 00:18:01 [employer] Surveyor: ALEXEI MEASUREMENT RESULTS: Intervals: Rate: 79 FL: 170 QRSD: 96 QT: 396 QTc: 454 [place]: P: 39 FL: 170 QRS: 68 T: 72 INTERPRETIVE STATEMENTS: Sinus rhythm with premature atrial complexes Otherwise normal ECG Compared to ECG 01/05/2023 13:33:43 Atrial premature complex(es) now present Atrial fibrillation no longer present Myocardial infarct finding no longer present Electronically Signed On 01-28-23 07:54:31 CDT by Selvin Mar
== END 2023-01-27 10:48 | disposition home or self-care (01) | DRG 291 ==
LOC: ER 00:11 → ERHOLD 04:32 → 2ND 10:15
PROVIDERS: ADMIT Internal Medicine; ATTEND Internal Medicine
PROC: 5A09457 Assistance with Respiratory Ventilation, 24-96 Consecutive Hours, Continuous Positive Airway Pressure (ICD-10-PCS; principal; 2023-01-24)
DX: I11.0 Hypertensive heart disease with heart failure (principal); I50.33 Acute on chronic diastolic (congestive) heart failure; J96.21 Acute and chronic respiratory failure with hypoxia; J96.22 Acute and chronic respiratory failure with hypercapnia; Z68.42 Body mass index [BMI] 45.0-49.9, adult; J44.1 Chronic obstructive pulmonary disease with (acute) exacerbation; E66.2 Morbid (severe) obesity with alveolar hypoventilation; E87.3 Alkalosis; I48.0 Paroxysmal atrial fibrillation; F31.9 Bipolar disorder, unspecified; E03.9 Hypothyroidism, unspecified; F41.0 Panic disorder [episodic paroxysmal anxiety]; E78.00 Pure hypercholesterolemia, unspecified; G89.29 Other chronic pain; M54.50 Low back pain, unspecified; K21.9 Gastro-esophageal reflux disease without esophagitis; F17.210 Nicotine dependence, cigarettes, uncomplicated; Z79.01 Long term (current) use of anticoagulants; Z79.52 Long term (current) use of systemic steroids; Z79.899 Other long term (current) drug therapy; Z79.890 Hormone replacement therapy; Z20.822 Contact with and (suspected) exposure to COVID-19
CPT/HCPCS: 36415; 71045; 80048; 80061; 80076; 81001; 82805; 83735; 83880; 84100; 84443; 84484; 85025; 87804; 87811; 93005; 93306; 93971; 94640; 94660; 94760; 94762; 99285; J1940; J2001; J7512; J7605; J7613

== ENCOUNTER 2023-03-12 03:18 | Inpatient (IN) | payer OTHER ==
--- OUTSIDE RECORDS SUMMARY | 2023-03-12 03:26 | XMS REPORT | Continuity of Care Document ---
:1960 Author Organization [facility] t Address [address] [facility] [place] [address] Care Team Providers Name Role Phone Reena Moran Primary Care Physician Billy Howard Attending Clinician Unavailable GIAN CHURCH Attending Clinician Unavailable Gian Church MD Attending Clinician MARTIN LEBLANC Attending Clinician Unavailable Martin Leblanc MD Attending Clinician KRISTEN PATRICK Attending Clinician Unavailable KRISTEN PATRICK Attending Clinician Unavailable Doctor Unassigned, [place] Attending Clinician Unavailable JETHRO ZHAO Attending Clinician Unavailable Negra Gregory Attending Clinician [phone] NEGRA DUNAWAY Attending Clinician Unavailable Sheryl Ca MD Attending Clinician Dar DIETRICH, Jethro Ferguson Attending Clinician [phone] JETHRO DODGE Attending Clinician Unavailable Christine DIETRICH, Christa Lincoln Attending Clinician CHRISTA KING Attending Clinician Unavailable JESSE ARREDONDO Attending Clinician Unavailable Ronaldo DIETRICH, [place] Oates Attending Clinician David CARDONA, Viviana Person Attending Clinician Jeronimo Hogue MD Attending Clinician Christian DIETRICH, Julian Rose Attending Clinician Sammie Tarango MD Attending Clinician Jordin DIETRICH, [place] Attending Clinician Chu Marin MD Attending Clinician [phone] CHU MARIN Attending Clinician Unavailable Lizbeth [...] Number Effective Date Expiration Date [place] patricia [facility] [id number] 2012 PLUS 00:00:00 [place] [id number] 2019 [facility] 00:00:00 [facility] Problems Condition Condition Condition Status Onset Resolution Last Treating Co mments Source Name Details Category Date Date Treatment Clinician Date Acute on Acute on Disease Active Unive rs chronic chronic 2-17 [place] congest[place] dical heart heart Branch failure failure Respirator Respirator Disease Active U nivers y failure y failure 2-16 ity of 00:00: [address] Obesity Obesity Disease Active Univers (BMI (BMI 9-11 ity of 30-39.9) 30-39.9) 00:00: [address] Tobacco Tobacco Disease [facility] [address] Hypoxemia Hypoxemia Disease [facility] [address] COPD COPD Disease Recurre [facility] exacerbati exacerbati nce 6-05 Pema kes on on 00:00: [address] Acute Acute Disease Recurre [facility] hypercapni hypercapni nce 6-05 Pema kes c c 00:00: Medical respirator respirator 00 Ce nter y failure y failure Wears Wears Disease Active Univers partial partial ity of dentures dentures [facility] [id number] Severe Problem Common chronic Spirit obstructiv - [facility] e [facility] Hypertensi Hypertensi Problem C ommon on on [facility] Hypothyroi Hypothyroi Problem C ommon dism dism [facility] Counseling Tobacco Problem Comm on about abuse Spirit tobacco counseling - [facility] use [facility] Hyperlipid Hyperlipid Problem C ommon emia emia, Spirit unspecifie - [facility] d [facility] Chronic Chronic Problem Common pain pain Spirit syndrome syndrome - [facility] Bipolar Bipolar Problem Common disorder disorder [facility] [id number] Nasal Problem Common bleeding [facility] Essential Essential Problem Com mon hypertensi hypertensi Sp kiley on on - CHI [facility] [id number] History of Problem Co mmon congestive Spirit heart - CHI failure [facility] Pulmonary Pulmonary Problem Com mon hypertensi hypertensi Sp kiley on on, - CHI unspecifie [facility] Chronic Chronic Problem Common obstructiv obstructiv Sp kiley e e - CHI pulmonary pulmonary St disease disease, [facility] unspecifie Medica l d COPD Center type [id number] Morbid Problem Common obesity [facility] [id number] On Problem Common supplement Spirit al oxygen - CHI by nasal [facility] [id number] Body mass Problem Com mon index Spirit (BMI) - CHI 40.0-44.9, [facility] [id number] CPAP Problem Common (continuou Spirit s positive - CHI airway St pressure) [facility] dependence Medica l Center [id number] Nasal Problem Common congestion [facility] Vaginal Vaginal Problem Common bleeding bleeding [facility] Congestive Congestive Problem C ommon heart heart Spirit disease failure, - [facility] unspecifie [facility] d HF [facility] chronicity Medica l , Center unspecifie d heart failure type [id number] Pain in Problem Comm on [id number] right Spirit shoulder - CH[facility] [id number] VIVEK Problem Common (obstructi Spirit ve sleep - CHI apnea) [facility] [id number] Nontraumat Problem C ommon [id number] ic Spirit complete - CHI tear of right [facility] rotator Medical cuff Center [id number] Abnormal Problem Comm on thyroid [facility] function - CHI test [facility] [id number] RLS Problem Common (restless Spirit legs - CHI syndrome) [facility] [id number] 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 - CHI s infection [facility] [id number] SARS Problem Common pneumonia [facility] [id number] Other Problem Common chronic Spirit pain - [facility] Allergies, Adverse Reactions, Alerts Allergy Allergy Status [...] codeine Active Unknown Common Spirit - CHI [facility] Social History Social Habit Start Date Stop Date Quantity Comments Source History SDOH University o f Alcohol Frequency [place] [facility] History SDIN University o f Alcohol Std [place] Medical Drinks Branch History [facility] o f Alcohol Binge [place] Medic al Branch History of Common Spirit - Tobacco Use [facility] Exposure to 2023-01-04 2023-01-14 Not sure University of SARS-CoV-2 00:00:00 12:54:00 [facility] (event) Branch Alcohol intake 2022-08-13 2022-08-13 0 /d University of 00:00:00 00:00:00 [facility] Tobacco use and 2022-06-07 2022-06-07 Smokeless tobacco Un iversity of exposure 00:00:00 00:00:00 non-user [facility] Tobacco Comment 2022-06-07 2022-06-07 1-1.5 packs a day, U niversity of 00:00:00 00:00:00 quit 2018 [facility] Alcohol Comment 2020-11-12 2020-11-12 occasionally Univers ity of 00:00:00 00:00:00 [facility] Sex Assigned At [birth year] [facility] 00:00:00 00:00:00 [facility] Smoking Status Start Date Stop Date Source Ex-smoker 2022-06-07 00:00:00 2022-06-07 00:00:00 [facility] Medications Ordered Filled Start Stop Current Ordering Indication Dosage Frequency Signature Comments Components Source Medication Medication Date Date Medication? Clinician (SIG) Name Name tiZANidine Yes [id number] 2mg Take 1 Univers 2 mg tablet 4-25 tablet by ity of 00:00: mouth 3 (three) Medical times Branch daily as needed (muscle pain). Diclofenac Yes [id number] Apply to Univers Epolamine 4-25 skin once ity o f (FLECTOR) 00:00[place] 1[place] % patch 00 needed Medica l (shoulder Branch pain). tiZANidine Yes [id number] 2mg Take 1 Univers 2 mg tablet 4-25 tablet by ity of 00:00: mouth 3 00 (three) Medical times Branch daily as needed (muscle pain). Diclofenac Yes [id number] Apply to Univers Epolamine 4-25 skin once ity o f (FLECTOR) 00:00[place] 1[place] % patch 00 needed Medica l (shoulder Branch pain). tiZANidine 2022-0 Yes [id number] 2mg Take 1 Univers 2 mg tablet 4-25 tablet by ity of 00:00: mouth 3 [place] 00 (three) Medical times Branch daily as needed (muscle pain). Diclofenac 2022-0 Yes [id number] Apply to Univers Epolamine 4-25 skin once ity o f (FLECTOR) 00:00: [place] 1.[place] % patch 00 needed Medica l (shoulder Branch pain). traMADol 50 2022-0 202- No 50mg Take 50 mg Univers mg tablet 3-07 by mouth 3 ity of 15:02: 00:00 (three) [place] 43 :00 times Medical daily. Branch traMADol 50 2022-0 2022- No 50mg Take 50 mg Univers mg tablet 11-26-07 by mouth 3 ity of 15:02: 00:00 (three) [place] 43 :00 times Medical daily. Branch gabapentin 2022-0 Yes [id number] 300mg Take 1 Univers 300 mg 3-07 capsule by ity of capsule 00:00: mouth in [place] [address] the Medical morning Branch and 1 capsule at noon and 1 capsule in the evening. Diclofenac 2022-0 Yes [id number] Apply to Univers Sodium 3-07 area(s) ity of (VOLTAREN) 00:00: daily. [place] 1 % gel 00 [facility] Branch gabapentin 2022-0 Yes [id number] 300mg Take 1 Univers 300 mg 3-07 capsule by ity of capsule 00:00: mouth in [place] [address] the Medical morning Branch and 1 capsule at noon and 1 capsule in the evening. Diclofenac 3-0 Yes [id number] Apply to Univers Sodium 3-07 area(s) ity of (VOLTAREN) 00:00: daily. [place] 1 % gel 00 [facility] Branch gabapentin 2022-0 Yes [id number] 300mg Take 1 Univers 300 mg 3-07 capsule by ity of capsule 00:00: mouth in [place] [address] the Medical morning Branch and 1 capsule at noon and 1 capsule in the evening. Diclofenac 2023-0 Yes [id number] Apply to Univers Sodium 3-07 area(s) ity of (VOLTAREN) 00:00: daily. [place] 1 % gel 00 Medical Branch gabapentin 2023-0 Yes [id number] 300mg Take 1 Univers 300 mg 3-07 capsule by ity of capsule 00:00: mouth in [place] [address] the Medical morning Branch and 1 capsule at noon and 1 capsule in the evening. Diclofenac 2023-0 Yes [id number] Apply to Univers Sodium 3-07 area(s) ity of (VOLTAREN) 00:00: daily. [place] 1 % gel 00 [facility] Branch gabapentin 2023-0 Yes [id number] 300mg Take 1 Univers 300 mg 3-07 capsule by ity of capsule 00:00: mouth in [place] [address] the Medical morning [place] and 1 capsule at noon and 1 capsule in the evening. Diclofenac 2023-0 Yes [id number] Apply to Univers Sodium 3-07 area(s) ity of (VOLTAREN) 00:00: daily. [place] 1 % gel 00 [facility] Branch gabapentin 2023-0 Yes [id number] 300mg Take 1 Univers 300 mg 3-07 capsule by ity of capsule 00:00: mouth in [place] [address] the Medical morning [place] and 1 capsule at noon and 1 capsule in the evening. Diclofenac 2023-0 Yes [id number] Apply to Univers Sodium 3-07 area(s) ity of (VOLTAREN) 00:00: daily. [place] 1 % gel [facility] Branch gabapentin 2023-0 Yes [id number] 300mg Take 1 Univers 300 mg 3-07 capsule by ity of capsule 00:00: mouth in [place] [address] the Medical morning [place] and 1 capsule at noon and 1 capsule in the evening. Diclofenac 2023-0 Yes [id number] Apply to Univers Sodium 3-07 area(s) ity of (VOLTAREN) 00:00: daily. [place] 1 % gel 00 [facility] gabapentin 2023-0 Yes [id number] 300mg Take 1 Univers 300 mg 3-07 capsule by ity of capsule 00:00: mouth in [place] [address] the Medical morning [place] and 1 capsule at noon and 1 capsule in the evening. Diclofenac 2023-0 Yes [id number] Apply to Univers Sodium 3-07 area(s) ity of (VOLTAREN) 00:00: daily. [place] 1 % gel 00 [facility] Cefdinir Cefdinir 2021-2021- No Cefdinir 300 MG 300 MG 2-09-21 300 MG 00:00: 00:00 00 :00 predniSONE predniSONE 2021-2021- No QD predniSONE 20 MG 20 MG 2-11 09- 20 MG 00:00: 00:00 00 :00 Diclofenac 2021- Yes [id number] Apply to Univers Sodium 1-22 area(s) ity of (VOLTAREN) 00:00: daily. [place] 1 % gel [facility] Branch gabapentin 2021-09 Yes [id number] 100mg Take 1 Univers 100 mg 1-22 capsule by ity of capsule 00:00: mouth in [place] [address] the Medical morning [place] and 1 capsule in the evening. Diclofenac 2021-09 Yes [id number] Apply to Univers Sodium 1-22 area(s) ity of (VOLTAREN) 00:00: daily. [place] 1 % gel [facility] gabapentin 2021-09 Yes [id number] 100mg Take 1 Univers 100 mg 1-22 capsule by ity of capsule 00:00: mouth in [place] [address] the Medical morning [place] and 1 capsule in the evening. Diclofenac 2021-09 Yes [id number] Apply to Univers Sodium 1-22 area(s) ity of (VOLTAREN) 00:00: daily. [place] 1 % gel [facility] gabapentin 2021-09 Yes [id number] 100mg Take 1 Univers 100 mg 1-22 capsule by ity of capsule 00:00: mouth in [place] [address] the Medical morning [place] and 1 capsule in the evening. Diclofenac 2021-09 Yes [id number] Apply to Univers Sodium 1-22 area(s) ity of (VOLTAREN) 00:00: daily. [place] 1 % gel [facility] gabapentin 2021-09 Yes [id number] 100mg Take 1 Univers 100 mg 1-22 capsule by ity of capsule 00:00: mouth in [place] [address] the Medical morning [place] and 1 capsule in the evening. Diclofenac 2021-09 Yes [id number] Apply to Univers Sodium 1-22 area(s) ity of (VOLTAREN) 00:00: daily. [place] 1 % gel 00 [facility] gabapentin 2021-09 Yes [id number] 100mg Take 1 Univers 100 mg 1-22 capsule by ity of capsule 00:00: mouth in [place] [address] the Medical morning [place] and 1 capsule in the evening. Diclofenac 2021-09 Yes [id number] Apply to Univers Sodium 1-22 area(s) ity of (VOLTAREN) 00:00: daily. [place] 1 % gel 00 Medical Branch gabapentin 2021-09 Yes [id number] 100mg Take 1 Univers 100 mg 1-22 capsule by ity of capsule 00:00: mouth in [place] 00 the Medical morning Branch and 1 capsule in the evening. Diclofenac 2021-09 Yes [id number] Apply to Univers Sodium 1-22 area(s) ity of (VOLTAREN) 00:00: daily. [place] 1 % gel Medical Branch gabapentin 2021-09 Yes [id number] 100mg Take 1 Univers 100 mg 1-22 capsule by ity of capsule 00:00: mouth in [place] 00 the Medical morning Branch and 1 capsule in the evening. Diclofenac 2021-09 Yes [id number] Apply to Univers Sodium 1-22 area(s) ity of (VOLTAREN) 00:00: daily. [place] 1 % gel Medical Branch gabapentin 2021-09 Yes [id number] 100mg Take 1 Univers 100 mg 1-22 capsule by ity of capsule 00:00: mouth in [place] 00 the Medical morning Branch and 1 capsule in the evening. Diclofenac 2021-09- No [id number] Apply to Univers Sodium 1-22 03-07 area(s) ity of (VOLTAREN) 00:00: 00:00 [place]. [place] 1 % gel 00 :00 Medical Branch gabapentin 2021-09- No [id number] 100mg Take 1 Univers 100 mg 1-22 03-07 capsule by ity of capsule 00:00: 00:00 mouth in [place] 00 :00 the Medical morning Branch and 1 capsule in the evening. Diclofenac 2021-09- No [id number] Apply to Univers Sodium 1-22 03-07 area(s) ity of (VOLTAREN) 00:00: 00:[place]. [place] 1 % gel 00 :00 Medical Branch gabapentin 2021-09- No [id number] 100mg Take 1 Univers 100 mg 1-22 03-07 capsule by ity of capsule 00:00: 00:00 mouth in [place] 00 :00 the Medical morning Branch and 1 capsule in the evening. triamcinolo 2021-09- No [id number] 40mg Univers ne 1-14 11-14 ity of acetonide 19:00: 18:04 [place] (KENALOG) 00 :00 Medical injection Branch 40 mg triamcinolo 2021-09- No [id number] 40mg 40 mg, Univers ne 10-05 Intramuscu ity of acetonide 19:00: 18:04 [place], ONCE, [place] (KENALOG[place] 00 :00 1 dose, On Medi derrick injection Mon Branch 40 mg 08/05/22 at 1300, Routine triamcinolo 2021-09- No [id number] 40mg Univers ne 10-05 ity of acetonide 19:00: 18:04 [place] (KENALOG) 00 :00 Medical injection Branch 40 mg triamcinolo 2021-09- No [id number] 40mg 40 mg, Univers ia 10-05 Intramuscu ity of acetonide 19:00: 18:04 [place], [place]CE, [place] (KENALOG) 00 :00 1 dose, On Medi derrick injection Mon Branch 40 mg 08/05/22 at 1300, Routine methylPREDN 2021- No [id number] 80mg U nivers ISolone 06-07 ity of acetate 19:30: 18:38 [place] (DEPO-MEDRO 00 :00 Medical L) Branch injection 80 mg methylPREDN 2021- No [id number] 80mg 80 mg, [facility] ISolone 06-07 Intramuscu ity o f acetate 19:30: 18:38 [place], ONCE, [place] (DEPO-MEDRO 00 :00 1 dose, On Me dical L) Fri Branch injection 06/07/22 at 80 mg 1430, Routine methylPREDN 2021- No [id number] 80mg U nivers ISolone 06-07 ity of acetate 19:30: 18:38 [place] (DEPO-MEDRO 00 :00 Medical L) Branch injection 80 mg methylPREDN 2021- No [id number] 80mg 80 mg, [facility] ISolone 06-07 Intramuscu ity o f acetate 19:30: 18:38 lar, ONCE, [place] (DEPO-MEDRO 00 :00 1 dose, On Me dical L) Fri Branch injection 06/07/22 at 80 mg 1430, Routine Kenalog Kenalog 2-0 No 40mg Common (Triamcinol (Triamcinol 7-21 S pirit one) one) 00:00: - CHI 00 [facility] Bupivicaine Bupivicaine 2-0 No 2.5mg Common [place] 7-21 Spirit 00:00: - CHI 00 [facility] Kenalog Kenalog 2021-0 No 40mg Common (Triamcinol (Triamcinol 7-21 S pirit one) one) 00:00: - CHI 00 [facility] Bupivicaine Bupivicaine 2021-0 No 2.5mg Common [place] 7-21 Spirit 00:00: - CHI 00 [facility] Kenalog Kenalog 2021-0 No 40mg Common (Triamcinol (Triamcinol 7-21 S pirit one) one) 00:00: - CHI 00 [facility] Bupivicaine Bupivicaine 2021-0 No 2.5mg Common [place] 7-21 Spirit 00:00: - CHI 00 [facility] Kenalog Kenalog 2021-0 No 40mg Common (Triamcinol (Triamcinol 7-21 S pirit one) one) 00:00: - CHI 00 [facility] Bupivicaine Bupivicaine 2-0 No 2.5mg Common [place] 7-21 Spirit 00:00: - CHI 00 [facility] Kenalog Kenalog 2021-0 No 40mg Common (Triamcinol (Triamcinol 7-21 S pirit one) one) 00:00: - CHI 00 [facility] Bupivicaine Bupivicaine 2-0 No 2.5mg Common [place] 7-21 Spirit 00:00: - CHI 00 [facility] Kenalog Kenalog 2-0 No 40mg Common (Triamcinol (Triamcinol 7-21 S pirit one) one) 00:00: - CHI 00 [facility] Bupivicaine Bupivicaine 2-0 No 2.5mg Common [place] 7-21 Spirit 00:00: - CHI 00 [facility] Kenalog Kenalog 2021-0 No 40mg Common (Triamcinol (Triamcinol 7-21 S pirit one) one) 00:00: - CHI 00 [facility] Bupivicaine Bupivicaine 2-0 No 2.5mg Common [place] 04-11 Spirit 00:00: - CHI 00 [facility] Kenalog Kenalog 2-0 No 40mg Common (Triamcinol (Triamcinol 4-27 S pirit one) one) 00:00: - CHI 00 [facility] Lidocaine Lidocaine 2-0 No 10mg Com mon 01-16 Spirit 00:00: - CHI 00 [facility] Kenalog Kenalog 2-0 No 40mg Common (Triamcinol (Triamcinol 4-27 S pirit one) one) 00:00: - CHI 00 [facility] Lidocaine Lidocaine 2-0 No 10mg Com mon 01-16 Spirit 00:00: - CHI [facility] Kenalog Kenalog 2-0 No 40mg Common (Triamcinol (Triamcinol 4-27 S pirit one) one) 00:00: - CHI 00 [facility] Lidocaine Lidocaine 2-0 No 10mg Com mon 01-16 Spirit 00:00: - CHI 00 [facility] Kenalog Kenalog 2-0 No 40mg Common (Triamcinol (Triamcinol 4-27 S pirit one) one) 00:00: - CHI [facility] Lidocaine Lidocaine 2-0 No 10mg Com mon 01-16 Spirit 00:00: - CHI 00 [facility] Kenalog Kenalog 2-0 No 40mg Common (Triamcinol (Triamcinol 4-27 S pirit one) one) 00:00: - CHI 00 [facility] Lidocaine Lidocaine 2-0 No 10mg Com mon 01-16 Spirit 00:00: - CHI 00 [facility] Kenalog Kenalog 2-0 No 40mg Common (Triamcinol (Triamcinol 4-27 S pirit one) one) 00:00: - CH[facility] Lidocaine Lidocaine 2-0 No 10mg Com mon 01-16 Spirit 00:00: - CH[facility] Kenalog Kenalog 2-0 No 40mg Common (Triamcinol (Triamcinol 4-27 S pirit one) one) 00:00: - CH[facility] Lidocaine Lidocaine 2-0 No 10mg Com mon 01-16 Spirit 00:00: - CHI 00 [facility] Lidocaine Lidocaine 2-0 No 10mg Com 12-06 Spirit 00:00: - CHI [facility] Kenalog Kenalog 2-0 No 40mg Common (Triamcinol (Triamcinol 3-17 S pirit one) one) 00:00: - CHI 00 [facility] Lidocaine Lidocaine 2-0 No 10mg Com 12-06 Spirit 00:00: - CHI [facility] Kenalog Kenalog 2-0 No 40mg Common (Triamcinol (Triamcinol 3-17 S pirit one) one) 00:00: - CHI [facility] Lidocaine Lidocaine 2-0 No 10mg Com 12-06 Spirit 00:00: - CH[facility] Kenalog Kenalog 2-0 No 40mg Common (Triamcinol (Triamcinol 3-17 S pirit one) one) 00:00: - CH[facility] Lidocaine Lidocaine 2-0 No 10mg Com 12-06 Spirit 00:00: - CH[facility] Kenalog Kenalog 2-0 No 40mg Common (Triamcinol (Triamcinol 3-17 S pirit one) one) 00:00: - CH[facility] Lidocaine Lidocaine 2-0 No 10mg Com 12-06 Spirit 00:00: - CHI 00 [facility] Kenalog Kenalog 2-0 No 40mg Common (Triamcinol (Triamcinol 3-17 S pirit one) one) 00:00: - [facility] Lidocaine Lidocaine 2-0 No 10mg Com 12-06 Spirit 00:00: - CH[facility] Kenalog Kenalog 2-0 No 40mg Common (Triamcinol (Triamcinol 3-17 S pirit one) one) 00:00: - [facility] Lidocaine Lidocaine 2-0 No 10mg Com mon 3-17 Spirit 00:00: - CHI 00 [facility] Kenalog Kenalog 0 No 40mg Common (Triamcinol (Triamcinol 3-17 S pirit one) one) 00:00: - CHI 00 [facility] carvedilol Yes 3.125mg Take 3.125 Univers [...] (two) Medical times Branch daily with meals. [facility] Yes Univers 500 mcg 9-22 ity of tablet 00:00: [facility] Yes Univers 500 mcg 9-22 ity of tablet 00:00: [facility] Yes Univers 500 mcg 9-22 ity of tablet 00:00: [facility] 0 Yes Univers 500 mcg 9-22 ity of tablet 00:00: [facility] 0 Yes Univers 500 mcg 9-22 ity of tablet 00:00: [facility] 0 Yes Univers 500 mcg 9-22 ity of tablet 00:00: [facility] 2020-0 Yes Univers 500 mcg 9-22 ity of tablet 00:00: [place] [facility] 2020-0 Yes Univers 500 mcg 9-22 ity of tablet 00:00: [address] 2020-0 Yes Univers 500 mcg 9-22 ity of tablet 00:00: [address] 2020-0 Yes Univers 500 mcg 9-22 ity of tablet 00:00: [place] [facility] 2020-0 Yes Univers 500 mcg 9-22 ity of tablet 00:00: [address] 2020-0 Yes Univers 500 mcg 9-22 ity of tablet 00:00: [address] 2020-0 Yes Univers 500 mcg 9-22 ity of tablet 00:00: [address] 2020-0 Yes Univers 500 mcg 9-22 ity of tablet 00:00: [address] 2020-0 Yes Univers 500 mcg 9-22 ity of tablet 00:00: [address] 2020-0 Yes Univers 500 mcg 9-22 ity of tablet 00:00: [address] 2020-0 Yes Univers 500 mcg 9-22 ity of tablet 00:00: [address] 2020-0 Yes Univers 500 mcg 9-22 ity of tablet 00:00: [address] 2020-0 Yes Univers 500 mcg 9-22 ity of tablet 00:00: [address] 2020-0 Yes Univers 500 mcg 9-22 ity of tablet 00:00: [address] 2020-0 Yes Univers 500 mcg 9-22 ity of tablet 00:00: [address] 2020-0 Yes Univers 500 mcg 9-22 ity of tablet 00:00: [address] 2020-0 Yes Univers 500 mcg 9-22 ity of tablet 00:00: [address] predniSONE 2020-0 Yes 10mg Take 10 mg U nivers 10 mg 8-31 by mouth ity of tablet 00:00: daily. [address] predniSONE 2020-0 Yes 10mg Take 10 mg U nivers 10 mg 8-31 by mouth ity of tablet 00:00: daily. [place] [facility] predniSONE 2020-0 Yes 10mg Take 10 mg U nivers 10 mg 8-31 by mouth ity of tablet 00:00: daily. [place] [facility] predniSONE 2020-0 Yes 10mg Take 10 mg U nivers 10 mg 8-31 by mouth ity of tablet 00:00: daily. [place] [facility] predniSONE 2020-0 2- No 10mg Take 10 mg Univers 10 mg 8-31 11-14 by mouth ity of tablet 00:00: 00:00 daily. [place] 00 : Medical Branch predniSONE 2020-0 2- No 10mg Take 10 mg Univers 10 mg 8-31 11-14 by mouth ity of tablet 00:00: 00:00 daily. [place] 00 : Medical Branch predniSONE 2020- Yes TAKE 1 Unive rs 20 mg 8-26 TABLET BY ity of tablet 00:00: [facility] TWICE Medical DAILY FOR Branch 7 DAYS THEN 1 TABLET FOR 7 DAYS predniSONE 2020- Yes TAKE 1 Unive rs 20 mg 8-26 TABLET BY ity of tablet 00:00: [facility] TWICE Medical DAILY FOR Branch 7 DAYS THEN 1 TABLET FOR 7 DAYS predniSONE 2020-0 Yes TAKE 1 Unive rs 20 mg 8-26 TABLET BY ity of tablet 00:00: [facility] TWICE Medical DAILY FOR Branch 7 DAYS THEN 1 TABLET FOR 7 DAYS predniSONE 2020-0 Yes TAKE 1 [facility] rs 20 mg 8-26 TABLET BY ity of tablet 00:00: [facility] TWICE Medical DAILY FOR Branch 7 DAYS THEN 1 TABLET FOR 7 DAYS predniSONE 2020-0 2- No TAKE 1 [facility] ers 20 mg 8-26 11-14 TABLET BY ity of tablet 00:00: 00:00 [facility] 00 :00 TWICE Medical DAILY FOR Branch 7 DAYS THEN 1 TABLET FOR 7 DAYS predniSONE 2020-0 2- No TAKE 1 [facility] ers 20 mg 8-26 11-14 TABLET BY ity of tablet 00:00: 00:00 [facility] 00 :00 TWICE Medical DAILY FOR Branch 7 DAYS THEN 1 TABLET FOR 7 DAYS benzonatate Yes TAKE 1 Univ ers 100 mg 8-25 CAPSULE BY ity of capsule 00:00: [place] [id number] THREE Medical TIMES Branch DAILY NEEDED FOR COUGH fluconazole Yes 200mg Take 200 U nivers 200 mg 8-25 mg by ity of tablet 00:00: mouth [place] every Medical morning. Branch POLY-IRON 2020-0 Yes Take by [facility] rs 150 mg iron 8-25 mouth ity of capsule 00:00: daily. [place] [facility] LIDOCAINE 2020-0 Yes TAKE 15ML Uni vers VISCOUS 2 % 8-25 BY MOUTH ity of solution 00:00: THREE [place] 00 TIMES Medical DAILY Branch NEEDED FOR SORE THROAT benzonatate 2020-0 Yes TAKE 1 Univ ers 100 mg 8-25 CAPSULE BY ity of capsule 00:00: MOUTH [place] THREE Medical TIMES Branch DAILY NEEDED FOR COUGH fluconazole 2020-0 Yes 200mg Take 200 U nivers 200 mg 8-25 mg by ity of tablet 00:00: mouth [place] every Medical morning. Branch POLY-IRON 2020-0 Yes Take by [facility] rs 150 mg iron 8-25 mouth ity of capsule 00:00: daily. [place] [facility] LIDOCAINE 2020-0 Yes TAKE 15ML Uni vers VISCOUS 2 % 8-25 BY MOUTH ity of solution 00:00: THREE [place] 00 TIMES Medical DAILY Branch NEEDED FOR SORE THROAT benzonatate 0 Yes TAKE 1 Univ ers 100 mg 8-25 CAPSULE BY ity of capsule 00:00: MOUTH [place] THREE Medical TIMES Branch DAILY NEEDED FOR COUGH fluconazole 2020-0 Yes 200mg Take 200 U nivers 200 mg 8-25 mg by ity of tablet 00:00: mouth [place] every Medical morning. Branch POLY-IRON 2020-0 Yes Take by [facility] rs 150 mg iron 8-25 mouth ity of capsule 00:00: daily. [place] [facility] LIDOCAINE 2020-0 Yes TAKE 15ML Uni vers VISCOUS 2 % 8-25 BY MOUTH ity of solution 00:00: THREE [place] 00 TIMES Medical DAILY Branch NEEDED FOR SORE THROAT benzonatate 0 Yes TAKE 1 Univ ers 100 mg 8-25 CAPSULE BY ity of capsule 00:00: MOUTH [place] [address] THREE Medical TIMES Branch DAILY NEEDED FOR COUGH fluconazole 2020-0 Yes 200mg Take 200 U nivers 200 mg 8-25 mg by ity of tablet 00:00: mouth [place] [address] every Medical morning. Branch POLY-IRON 2020-0 Yes Take by [facility] rs 150 mg iron 8-25 mouth ity of capsule 00:00: daily. [place] [facility] LIDOCAINE 2020-0 Yes TAKE 15ML [...] mg by ity of tablet 00:00: mouth [place] every Medical morning. Branch POLY-IRON 2020-0 Yes Take by [facility] rs 150 mg iron 8-25 mouth ity of capsule 00:00: daily. Medical Branch LIDOCAINE 2020-0 Yes TAKE 15ML Uni vers VISCOUS 2 % 8-25 BY MOUTH ity of solution 00:00: [place] TIMES Medical DAILY Branch NEEDED FOR SORE THROAT benzonatate 2020-0 Yes TAKE 1 Univ ers 100 mg 8-25 CAPSULE BY ity of capsule 00:00: MOUTH THREE Medical TIMES Branch DAILY NEEDED FOR COUGH fluconazole 2020-0 Yes 200mg Take 200 U nivers 200 mg 8-25 mg by ity of tablet 00:00: mouth [place] every Medical morning. Branch POLY-IRON 2020-0 Yes Take by [facility] rs 150 mg iron 8-25 mouth ity of capsule 00:00: daily. Medical Branch LIDOCAINE 2020-0 Yes TAKE 15ML Uni vers VISCOUS 2 % 8-25 BY MOUTH ity of solution 00:00: THREE [place] TIMES Medical DAILY Branch NEEDED FOR SORE THROAT benzonatate 2020-0 Yes TAKE 1 [facility] ers 100 mg 8-25 CAPSULE BY ity of capsule 00:00: MOUTH [place] THREE Medical TIMES Branch DAILY NEEDED FOR COUGH fluconazole 2020-0 Yes 200mg Take 200 U nivers 200 mg 8-25 mg by ity of tablet 00:00: mouth [place] every Medical morning. Branch POLY-IRON 2020-0 Yes Take by [facility] rs 150 mg iron 8-25 mouth ity of capsule 00:00: daily. Medical Branch LIDOCAINE 2020-0 Yes TAKE 15ML Uni vers VISCOUS 2 % 8-25 BY MOUTH ity of solution 00:00: THREE [place] TIMES Medical DAILY Branch NEEDED FOR SORE THROAT benzonatate 2020-0 Yes TAKE 1 Univ ers 100 mg 8-25 CAPSULE BY ity of capsule 00:00: MOUTH THREE Medical TIMES Branch DAILY NEEDED FOR COUGH fluconazole 2020-0 Yes 200mg Take 200 U nivers 200 mg 8-25 mg by ity of tablet 00:00: mouth [place] every Medical morning. Branch POLY-IRON 2020-0 Yes Take by [facility] rs 150 mg iron 8-25 mouth ity of capsule 00:00: daily. [place] [facility] LIDOCAINE 2020-0 Yes TAKE 15ML Uni vers VISCOUS 2 % 8-25 BY MOUTH ity of solution 00:00: THREE [place] TIMES Medical DAILY Branch NEEDED FOR SORE THROAT benzonatate 0 Yes TAKE 1 Univ ers 100 mg 8-25 CAPSULE BY ity of capsule 00:00: MOUTH [place] THREE Medical TIMES Branch DAILY NEEDED FOR COUGH fluconazole 2020-0 Yes 200mg Take 200 U nivers 200 mg 8-25 mg by ity of tablet 00:00: mouth [place] every Medical morning. Branch POLY-IRON 2020-0 Yes Take by [facility] rs 150 mg iron 8-25 mouth ity of capsule 00:00: daily. [place] [facility] LIDOCAINE 2020-0 Yes TAKE 15ML Uni vers VISCOUS 2 % 8-25 BY MOUTH ity of solution 00:00: [place] TIMES Medical DAILY Branch NEEDED FOR SORE THROAT benzonatate 2020-0 Yes TAKE 1 Univ ers 100 mg 8-25 CAPSULE BY ity of capsule 00:00: MOUTH [place] THREE Medical TIMES Branch DAILY NEEDED FOR COUGH fluconazole 2020-0 Yes 200mg Take 200 U nivers 200 mg 8-25 mg by ity of tablet 00:00: [facility] every Medical morning. Branch POLY-IRON 2020-0 Yes Take by Unive rs 150 mg iron 8-25 mouth ity of capsule 00:00: daily. [place] [facility] LIDOCAINE 2020-0 Yes TAKE 15ML Uni vers VISCOUS 2 % 8-25 BY MOUTH ity of solution 00:00: THREE [place] TIMES Medical DAILY Branch NEEDED FOR SORE THROAT benzonatate 2020-0 Yes TAKE 1 Univ ers 100 mg 8-25 CAPSULE BY ity of capsule 00:00: MOUTH [place] THREE Medical TIMES Branch DAILY NEEDED FOR COUGH fluconazole 2020-0 Yes 200mg Take 200 U nivers 200 mg 8-25 mg by ity of tablet 00:00: mouth [place] every Medical morning. Branch POLY-IRON 2020-0 Yes Take by [facility] rs 150 mg iron 8-25 mouth ity of capsule 00:00: daily. [place] [facility] LIDOCAINE 2020-0 Yes TAKE 15ML Uni vers VISCOUS 2 % 8-25 BY MOUTH ity of solution 00:00: THREE [place] TIMES Medical DAILY Branch NEEDED FOR SORE THROAT benzonatate 2020-0 Yes TAKE 1 Univ ers 100 mg 8-25 CAPSULE BY ity of capsule 00:00: MOUTH [place] THREE Medical TIMES Branch DAILY NEEDED FOR COUGH fluconazole 2020-0 Yes 200mg Take 200 U nivers 200 mg 8-25 mg by ity of tablet 00:00: mouth [place] every Medical morning. Branch POLY-IRON 2020-0 Yes Take by [facility]ive rs 150 mg iron 8-25 mouth ity of capsule 00:00: daily. [place] [facility] LIDOCAINE 2020-0 Yes TAKE 15ML Uni vers VISCOUS 2 % 8-25 BY MOUTH ity of solution 00:00: THREE [place] TIMES Medical DAILY Branch NEEDED FOR SORE THROAT benzonatate 2020-0 Yes TAKE 1 Univ ers 100 mg 8-25 CAPSULE BY ity of capsule 00:00: MOUTH [place] THREE Medical TIMES Branch DAILY NEEDED FOR COUGH fluconazole 2020-0 Yes 200mg Take 200 U nivers 200 mg 8-25 mg by ity of tablet 00:00: mouth [place] every Medical morning. Branch POLY-IRON 2020-0 Yes Take by Unive rs 150 mg iron 8-25 mouth ity of capsule 00:00: daily. [place] [facility] LIDOCAINE 1-0 Yes TAKE 15ML Uni vers VISCOUS 2 % 8-25 BY MOUTH ity of solution 00:00: THREE [place] TIMES Medical DAILY Branch NEEDED FOR SORE THROAT benzonatate 2020-0 Yes TAKE 1 Univ ers 100 mg 8-25 CAPSULE BY ity of capsule 00:00: MOUTH [place] [address] THREE Medical TIMES Branch DAILY NEEDED FOR COUGH fluconazole 2020-0 Yes 200mg Take 200 U nivers 200 mg 8-25 mg by ity of tablet 00:00: mouth [place] [address] every Medical morning. Branch POLY-IRON 2020-0 Yes Take by Un[facility] rs 150 mg iron 8-25 mouth ity of capsule 00:00: daily. [place] [facility] LIDOCAINE 2020-0 Yes TAKE 15ML Uni vers VISCOUS 2 % 8-25 BY MOUTH ity of solution 00:00: THREE [place] TIMES Medical DAILY Branch NEEDED FOR SORE THROAT benzonatate Yes TAKE 1 Univ ers 100 mg 8-25 CAPSULE BY ity of capsule 00:00: MOUTH [place] [address] THREE Medical TIMES Branch DAILY NEEDED FOR COUGH fluconazole 0 Yes 200mg Take 200 U nivers 200 mg 8-25 mg by ity of tablet 00:00: mouth [place] [address] every Medical morning. Branch POLY-IRON Yes Take by Unive rs 150 mg iron 8-25 mouth ity of capsule 00:00: daily. [place] [address] Medical Branch LIDOCAINE Yes TAKE 15ML Uni vers VISCOUS 2 % 8-25 BY MOUTH ity of solution 00:00: [place] TIMES Medical DAILY Branch NEEDED FOR SORE THROAT LIDOCAINE 0 Yes TAKE 15ML Uni vers VISCOUS 2 % 8-25 BY MOUTH ity of solution 00:00: [place] TIMES Medical DAILY Branch NEEDED FOR SORE THROAT LIDOCAINE 0 Yes TAKE 15ML Uni vers VISCOUS 2 % 8-25 BY MOUTH ity of solution 00:00: THREE [place] TIMES Medical DAILY Branch NEEDED FOR SORE THROAT LIDOCAINE 0 Yes TAKE 15ML Uni vers VISCOUS 2 % 8-25 BY MOUTH ity of solution 00:00: [place] TIMES Medical DAILY Branch NEEDED FOR SORE THROAT LIDOCAINE 2020-0 Yes TAKE 15ML Uni vers VISCOUS 2 % 8-25 BY MOUTH ity of solution 00:00: THREE [place] TIMES Medical DAILY Branch NEEDED FOR SORE THROAT LIDOCAINE 0 Yes TAKE 15ML Uni vers VISCOUS 2 % 8-25 BY MOUTH ity of solution 00:00: THREE [place] TIMES Medical DAILY Branch NEEDED FOR SORE THROAT LIDOCAINE 2020-0 Yes TAKE 15ML Uni vers VISCOUS 2 % 8-25 BY MOUTH ity of solution 00:00: [place] TIMES Medical DAILY Branch NEEDED FOR SORE THROAT LIDOCAINE 2020-0 Yes TAKE 15ML Uni vers VISCOUS 2 % 8-25 BY MOUTH ity of solution 00:00: THREE [place] TIMES Medical DAILY Branch NEEDED FOR SORE THROAT LIDOCAINE 2020-0 Yes TAKE 15ML Uni vers VISCOUS 2 % 8-25 BY MOUTH ity of solution 00:00: [place] TIMES Medical DAILY Branch NEEDED FOR SORE THROAT benzonatate 2022- No TAKE 1 Uni vers 100 mg -11-26 CAPSULE BY ity of capsule 00:00: 00:00 MOUTH [place] 00 :00 THREE Medical TIMES Branch DAILY NEEDED FOR COUGH fluconazole 2022- No 200mg Take 1 Un merry 200 mg 8-25 - tablet by ity of tablet 00:00: 00:00 mouth [place] 00 :00 every Medical morning. Branch POLY-IRON 2022- No Take by [facility] ers 150 mg iron 8-11-26 mouth ity of capsule 00:00: 00:00 daily. [place] 00 :00 Medical Branch benzonatate 2022- No TAKE 1 Uni vers 100 mg -11-26 CAPSULE BY ity of capsule 00:00: 00:00 MOUTH [place] 00 :00 THREE Medical TIMES Branch DAILY NEEDED FOR COUGH fluconazole 2022- No 200mg Take 1 Un merry 200 mg 05-16 tablet by ity of tablet 00:00: 00:00 mouth [place] 00 :00 every Medical morning. Branch POLY-IRON 2022- No Take by [facility] ers 150 mg iron -11-26 mouth ity of capsule 00:00: 00:00 daily. [place] 00 :00 Medical Branch acetaZOLAMI Yes 250mg [...] MOUTH 00 TWICE Medical DAILY. Branch nystatin 0 [...] ity o f tablet 00:00: mouth in [place] 00 the Medical morning Branch and 1 tablet in the evening. ELIQUIS 5 Yes 5mg Take 1 Univer s mg tablet 7-28 tablet by ity o f 00:00: mouth in [place] 00 the Medical morning Branch and 1 tablet in the evening. acetaZOLAMI Yes 250mg Take 1 Uni vers DE 250 mg 7-28 tablet by ity o f tablet 00:00: mouth in [place] 00 the Medical morning Branch and 1 tablet in the evening. ELIQUIS 5 2020-0 Yes 5mg Take 1 Univer s mg tablet 7-28 tablet by ity o f 00:00: mouth in [place] 00 the Medical morning Branch and 1 tablet in the evening. acetaZOLAMI Yes 250mg Take 1 Uni vers DE 250 mg 7-28 tablet by ity o f tablet 00:00: mouth in [place] 00 the Medical morning Branch and 1 tablet in the evening. ELIQUIS 5 2021-0 Yes 5mg Take 1 Univer s mg tablet 7-28 tablet by ity o f 00:00: mouth in [place] 00 the Medical morning Branch and 1 tablet in the evening. acetaZOLAMI 1-0 Yes 250mg Take 1 Uni vers DE 250 mg 7-28 tablet by ity o f tablet 00:00: mouth in [place] 00 the Medical morning Branch and 1 tablet in the evening. ELIQUIS 5 2020-0 Yes 5mg Take 1 Univer s mg tablet 7-28 tablet by ity o f 00:00: mouth in [place] 00 the Medical morning Branch and 1 tablet in the evening. acetaZOLAMI 2020-0 Yes 250mg Take 1 Uni vers DE 250 mg 7-28 tablet by ity o f tablet 00:00: mouth in [place] 00 the Medical morning Branch and 1 tablet in the evening. ELIQUIS 5 1-0 Yes 5mg Take 1 Univer s mg tablet 7-28 tablet by ity o f 00:00: mouth in [place] 00 the Medical morning Branch and 1 tablet in the evening. acetaZOLAMI 2020-0 Yes 250mg Take 1 Uni vers DE 250 mg 7-28 tablet by ity o f tablet 00:00: mouth in [place] 00 the Medical morning Branch and 1 tablet in the evening. ELIQUIS 5 1-0 Yes 5mg Take 1 Univer s mg tablet 7-28 tablet by ity o f 00:00: mouth in [place] 00 the Medical morning Branch and 1 tablet in the evening. acetaZOLAMI 2020-0 Yes 250mg Take 1 Uni vers DE 250 mg 7-28 tablet by ity o f tablet 00:00: mouth in [place] 00 the Medical morning Branch and 1 tablet in the evening. ELIQUIS 5 2021-0 Yes 5mg Take 1 Univer s mg tablet 7-28 tablet by ity o f 00:00: mouth in [place] 00 the Medical morning Branch and 1 tablet in the evening. acetaZOLAMI 2021-0 Yes 250mg Take 1 Uni vers DE 250 mg 7-28 tablet by ity o f tablet 00:00: mouth in [place] 00 the Medical morning Branch and 1 tablet in the evening. ELIQUIS 5 2021-0 Yes 5mg Take 1 Univer s mg tablet 7-28 tablet by ity o f 00:00: mouth in [place] 00 the Medical morning Branch and 1 tablet in the evening. docusate 2022- No TAKE 2 Univer s 100 mg 04-18- CAPSULES ity of capsule 00:00: 00:00 BY MOUTH [place] 00 :00 TWICE Medical DAILY. Branch nystatin 2022- No SHAKE Univers 100,000 04-18 LIQUID AND ity o f unit/mL 00:00: 00:00 TAKE 5 [place] suspension 00 :00 BY MOUTH Medic al THREE Branch TIMES DAILY zinc 2022- No 220mg Take 220 [facility] sulfate 50 04-18-07 mg by ity of mg zinc 00:00: 00:00 mouth [place] (220 mg) 00 :00 daily. Medical capsule Branch docusate 2022- No TAKE 2 Univer s 100 mg 04-18 CAPSULES ity of capsule 00:00: 00:00 BY MOUTH [place] 00 :00 TWICE Medical DAILY. Branch nystatin 2022- No SHAKE Univers 100,000 04-18 LIQUID AND ity o f unit/mL 00:00: [...] 20 MG 4-02 20 MG 00:00: 00 clonazePAM 2020- Yes .5mg Take 0.5 Uni vers 0.5 [...] by mouth ity of tablet 16:35: at [place] 55 bedtime. Medical Branch clonazePAM Yes .5mg [...] by mouth ity of tablet 16:35: at [place] 55 bedtime. Medical Branch guaiFENesin Yes [id number] 100mg Take 5 mL Univers 100 mg/5 mL 2-25 by mouth ity of solution 00:00: every 4 [place] 00 (four) Medical hours as Branch needed for Cough. furosemide Yes [id number] 40mg Take 2 Univers 20 mg 2-25 tablets by ity of tablet 00:00: mouth [place] 00 daily. Medical Branch guaiFENesin Yes [id number] 100mg Take 5 mL Univers 100 mg/5 mL 2-25 by mouth ity of solution 00:00: every 4 [place] 00 (four) Medical hours as Branch needed for Cough. furosemide Yes [id number] 40mg Take 2 Univers 20 mg 2-25 tablets by ity of tablet 00:00: mouth [place] 00 daily. Medical Branch guaiFENesin 2021-0 Yes [id number] 100mg Take 5 mL Univers 100 mg/5 mL 2-25 by mouth ity of solution 00:00: every 4 [place] 00 (four) Medical hours as Branch needed for Cough. furosemide 2020-0 Yes [id number] 40mg Take 2 Univers 20 mg 2-25 tablets by ity of tablet 00:00: mouth [place] 00 daily. Medical Branch guaiFENesin 2020-0 Yes [id number] 100mg Take 5 mL Univers 100 mg/5 mL 2-25 by mouth ity of solution 00:00: every 4 [place] 00 (four) Medical hours as Branch needed for Cough. furosemide 2020-0 Yes [id number] 40mg Take 2 Univers 20 mg 2-25 tablets by ity of tablet 00:00: mouth [place] 00 daily. Medical Branch guaiFENesin 2020-0 Yes [id number] 100mg Take 5 mL Univers 100 mg/5 mL 2-25 by mouth ity of solution 00:00: every 4 [place] 00 (four) Medical hours as Branch needed for Cough. furosemide 2020-0 Yes [id number] 40mg Take 2 Univers 20 mg 2-25 tablets by ity of tablet 00:00: mouth [place] 00 daily. Medical Branch guaiFENesin 2020-0 Yes [id number] 100mg Take 5 mL Univers 100 mg/5 mL 2-25 by mouth ity of solution 00:00: every 4 [place] 00 (four) Medical hours as Branch needed for Cough. furosemide 2020-0 Yes [id number] 40mg Take 2 Univers 20 mg 2-25 tablets by ity of tablet 00:00: mouth [place] 00 daily. Medical Branch guaiFENesin 2020-0 Yes [id number] 100mg Take 5 mL Univers 100 mg/5 mL 2-25 by mouth ity of solution 00:00: every 4 [place] 00 (four) Medical hours as Branch needed for Cough. furosemide 2020-0 Yes [id number] 40mg Take 2 Univers 20 mg 2-25 tablets by ity of tablet 00:00: mouth [place] 00 daily. Medical Branch guaiFENesin 2020-0 Yes [id number] 100mg Take 5 mL Univers 100 mg/5 mL 2-25 by mouth ity of solution 00:00: every 4 [place] 00 (four) Medical hours as Branch needed for Cough. furosemide 2020-0 Yes [id number] 40mg Take 2 Univers 20 mg 2-25 tablets by ity of tablet 00:00: mouth [place] 00 daily. Medical Branch guaiFENesin 2020-0 Yes [id number] 100mg Take 5 mL Univers 100 mg/5 mL 2-25 by mouth ity of solution 00:00: every 4 [place] 00 (four) Medical hours as Branch needed for Cough. furosemide 2020-0 Yes [id number] 40mg Take 2 Univers 20 mg 2-25 tablets by ity of tablet 00:00: mouth [place] 00 daily. Medical Branch guaiFENesin 2020-0 Yes [id number] 100mg Take 5 mL Univers 100 mg/5 mL 2-25 by mouth ity of solution 00:00: every 4 [place] 00 (four) Medical hours as Branch needed for Cough. furosemide 2020-0 Yes [id number] 40mg Take 2 Univers 20 mg 2-25 tablets by ity of tablet 00:00: mouth [place] 00 daily. Medical Branch guaiFENesin 2020-0 Yes [id number] 100mg Take 5 mL Univers 100 mg/5 mL 2-25 by mouth ity of solution 00:00: every 4 [place] 00 (four) Medical hours as Branch needed for Cough. furosemide 2020-0 Yes [id number] 40mg Take 2 Univers 20 mg 2-25 tablets by ity of tablet 00:00: mouth [place] 00 daily. Medical Branch guaiFENesin 2020-0 Yes [id number] 100mg Take 5 mL Univers 100 mg/5 mL 2-25 by mouth ity of solution 00:00: every 4 [place] 00 (four) Medical hours as Branch needed for Cough. furosemide 2020-0 Yes [id number] 40mg Take 2 Univers 20 mg 2-25 tablets by ity of tablet 00:00: mouth [place] 00 daily. Medical Branch guaiFENesin 2020-0 Yes [id number] 100mg Take 5 mL Univers 100 mg/5 mL 2-25 by mouth ity of solution 00:00: every 4 [place] 00 (four) Medical hours as Branch needed for Cough. furosemide 1-0 Yes [id number] 40mg Take 2 Univers 20 mg 2-25 tablets by ity of tablet 00:00: mouth [place] 00 daily. Medical Branch guaiFENesin 2020-0 Yes [id number] 100mg Take 5 mL Univers 100 mg/5 mL 2-25 by mouth ity of solution 00:00: every 4 [place] 00 (four) Medical hours as Branch needed for Cough. furosemide 2020-0 Yes [id number] 40mg Take 2 Univers 20 mg 2-25 tablets by ity of tablet 00:00: mouth [place] 00 daily. Medical Branch guaiFENesin 2020-0 Yes [id number] 100mg Take 5 mL Univers 100 mg/5 mL 2-25 by mouth ity of solution 00:00: every 4 [place] 00 (four) Medical hours as Branch needed for Cough. furosemide 2020-0 Yes [id number] 40mg Take 2 [facility] 20 mg 2-25 tablets by ity of tablet 00:00: mouth [place] 00 daily. Medical Branch furosemide 2020-0 Yes [id number] 40mg Take 2 [facility] 20 mg 2-25 tablets by ity of tablet 00:00: mouth [place] 00 daily. Medical Branch furosemide 2020-0 Yes [id number] 40mg Take 2 [facility] 20 mg 2-25 tablets by ity of tablet 00:00: mouth [place] 00 daily. Medical Branch furosemide 2020-0 Yes [id number] 40mg Take 2 Univers 20 mg 2-25 tablets by ity of tablet 00:00: mouth [place] 00 daily. Medical Branch furosemide 2020-0 Yes [id number] 40mg Take 2 Univers 20 mg 2-25 tablets by ity of tablet 00:00: mouth [place] 00 daily. Medical Branch furosemide 2020-0 Yes [id number] 40mg Take 2 Univers 20 mg 2-25 tablets by ity of tablet 00:00: mouth [place] 00 daily. Medical Branch furosemide 2020-0 Yes [id number] 40mg Take 2 Univers 20 mg 2-25 tablets by ity of tablet 00:00: mouth [place] 00 daily. Medical Branch furosemide 2020-0 Yes [id number] 40mg Take 2 Univers 20 mg 2-25 tablets by ity of tablet 00:00: mouth [place] 00 daily. Medical Branch furosemide 2020-0 Yes [id number] 40mg Take 2 Univers 20 mg 2-25 tablets by ity of tablet 00:00: mouth [place] 00 daily. Medical Branch guaiFENesin 2020-0 2023- No [id number] 100mg Take 5 mL Univers 100 mg/5 mL 2-25 03-07 by mouth ity of solution 00:00: 00:00 every 4 [place] 00 :00 (four) Medical hours as Branch needed for Cough. guaiFENesin 1-0 2023- No [id number] 100mg Take 5 mL Univers 100 mg/5 mL 2-25 -07 by mouth ity of solution 00:00: 00:00 every 4 [place] 00 :00 (four) Medical hours as Branch needed for Cough. pantoprazol 1-0 Yes 40mg Take 1 Univ [...] mouth 00 daily. Medical Branch pantoprazol 2020-0 2023- No 40mg Take 1 Uni vers e 40 mg EC 2-21 -07 tablet by ity of tablet 00:00: 00:00 mouth [place] 00 :00 daily. Medical Branch pantoprazol 2020-0 3- No 40mg Take 1 Uni vers e 40 mg EC 2-21 -07 tablet by ity of tablet 00:00: 00:00 mouth [place] 00 :00 daily. Medical Branch gabapentin 2020-0 Yes 300mg Take 1 Univ ers 300 mg 2-20 capsule by ity of capsule 00:00: mouth (two) Medical times Branch daily. melatonin 3 2020-0 Yes 6mg Take 2 Univ ers mg tablet 2-20 tablets by ity of 00:00: mouth at [place] 00 bedtime. Medical Branch gabapentin 2020-0 Yes 300mg Take 1 Univ ers 300 mg 2-20 capsule by ity of capsule 00:00: mouth [place] (two) Medical times Branch daily. melatonin 3 2020-0 Yes 6mg Take 2 Univ ers mg tablet 2-20 tablets by ity of 00:00: mouth at [place] 00 bedtime. Medical Branch gabapentin 2020-0 Yes 300mg Take 1 Univ ers 300 mg 2-20 capsule by ity of capsule 00:00: mouth (two) Medical times Branch daily. melatonin 3 2020-0 Yes 6mg Take 2 Univ ers mg tablet 2-20 tablets by ity of 00:00: mouth at [place] 00 bedtime. Medical Branch gabapentin 2020-0 Yes 300mg Take 1 Univ ers 300 mg 2-20 capsule by ity of capsule 00:00: mouth (two) Medical times Branch daily. melatonin 3 2021-0 Yes 6mg Take 2 Univ ers mg tablet 2-20 tablets by ity of 00:00: mouth at [place] [address] bedtime. Medical Branch gabapentin 2021-0 Yes 300mg Take 1 Univ ers 300 mg 2-20 capsule by ity of capsule 00:00: mouth 2 (two) Medical times Branch daily. melatonin 3 2021-0 Yes 6mg Take 2 Univ ers mg tablet 2-20 tablets by ity of 00:00: mouth at [place] bedtime. Medical Branch gabapentin 2021-0 Yes 300mg Take 1 Univ ers 300 mg 2-20 capsule by ity of capsule 00:00: mouth 2 (two) Medical times Branch daily. melatonin 3 1-0 Yes 6mg Take 2 Univ ers mg tablet 2-20 tablets by ity of 00:00: mouth at [place] [address] bedtime. Medical Branch gabapentin 2021-0 Yes 300mg Take 1 Univ ers 300 mg 2-20 capsule by ity of capsule 00:00: mouth 2 [place] (two) Medical times Branch daily. melatonin 3 2020-0 Yes 6mg Take 2 Univ ers mg tablet 2-20 tablets by ity of 00:00: mouth at [place] [address] bedtime. Medical Branch gabapentin 2021-0 Yes 300mg Take 1 Univ ers 300 mg 2-20 capsule by ity of capsule 00:00: mouth 2 [place] () Medical times Branch daily. melatonin 3 1-0 Yes 6mg Take 2 Univ ers mg tablet 2-20 tablets by ity of 00:00: mouth at [place] [address] bedtime. Medical Branch gabapentin 2021-0 Yes 300mg Take 1 [facility] ers 300 mg 2-20 capsule by ity of capsule 00:00: mouth 2 [place] (two) Medical times Branch daily. melatonin 3 2021-0 Yes 6mg Take 2 Univ ers mg tablet 2-20 tablets by ity of 00:00: mouth at [place] [address] bedtime. Medical Branch gabapentin 2021-0 Yes 300mg Take 1 Univ ers 300 mg 2-20 capsule by ity of capsule 00:00: mouth 2 [place] (two) Medical times Branch daily. melatonin 3 2021-0 Yes 6mg Take 2 Univ ers mg tablet 2-20 tablets by ity of 00:00: mouth at [place] [address] bedtime. Medical Branch gabapentin 2021-0 Yes 300mg Take 1 Univ ers 300 mg 2-20 capsule by ity of capsule 00:00: mouth 2 (two) Medical times Branch daily. melatonin 3 2020-0 Yes 6mg Take 2 Univ ers mg tablet 2-20 tablets by ity of 00:00: mouth at [place] bedtime. Medical Branch gabapentin 2020-0 Yes 300mg Take 1 Univ ers 300 mg 2-20 capsule by ity of capsule 00:00: mouth 2 (two) Medical times Branch daily. melatonin 3 2020-0 Yes 6mg Take 2 [facility] ers mg tablet 2-20 tablets by ity of 00:00: mouth at [place] bedtime. Medical Branch gabapentin 2020-0 Yes 300mg Take 1 [facility] ers 300 mg 2-20 capsule by ity of capsule 00:00: mouth 2 (two) Medical times Branch daily. melatonin 3 2020-0 Yes 6mg Take 2 [facility] ers mg tablet 2-20 tablets by ity of 00:00: mouth at [place] bedtime. Medical Branch gabapentin 2020-0 Yes 300mg Take 1 [facility] ers 300 mg 2-20 capsule by ity of capsule 00:00: mouth 2 [place] (two) Medical times Branch daily. melatonin 3 2020-0 Yes 6mg Take 2 Univ ers mg tablet 2-20 tablets by ity of 00:00: mouth at [place] [address] bedtime. Medical Branch gabapentin 2020-0 Yes 300mg Take 1 Univ ers 300 mg 2-20 capsule by ity of capsule 00:00: mouth 2 [place] (two) Medical times Branch daily. melatonin 3 2020-0 Yes 6mg Take 2 Univ ers mg tablet 2-20 tablets by ity of 00:00: mouth at [place] [address] bedtime. Medical Branch melatonin 3 2020-0 Yes 6mg Take 2 Univ ers mg tablet 2-20 tablets by ity of 00:00: mouth at [place] [address] bedtime. Medical Branch melatonin 3 2020-0 Yes 6mg Take 2 Univ ers mg tablet 2-20 tablets by ity of 00:00: mouth at [place] [address] bedtime. Medical Branch melatonin 3 2020-0 Yes 6mg Take 2 Univ ers mg tablet 2-20 tablets by ity of 00:00: mouth at [place] [address] bedtime. Medical Branch melatonin 3 2020-0 Yes 6mg Take 2 Univ ers mg tablet 2-20 tablets by ity of 00:00: mouth at [place] [address] bedtime. Medical Branch melatonin 3 2020-0 Yes 6mg Take 2 Univ ers mg tablet 2-20 tablets by ity of 00:00: mouth at [place] [address] bedtime. Medical Branch melatonin 3 2020-0 Yes 6mg Take 2 Univ ers mg tablet 2-20 tablets by ity of 00:00: mouth at [place] [address] bedtime. Medical Branch melatonin 3 2020-0 Yes 6mg Take 2 Univ ers mg tablet 2-20 tablets by ity of 00:00: mouth at [place] [address] bedtime. Medical Branch melatonin 3 2020-0 Yes 6mg Take 2 Univ ers mg tablet 2-20 tablets by ity of 00:00: mouth at [place] [address] bedtime. Medical Branch gabapentin 2020-0 2023- No 300mg Take 1 Uni vers 300 mg 2-20 03-07 capsule by ity of capsule 00:00: 00:00 mouth 2 [place] 00 :00 (two) Medical times Branch daily. gabapentin 2020-0 2022- No 300mg Take 1 Uni vers 300 mg 2-20 03-07 capsule by ity of capsule 00:00: 00:00 mouth 2 [place] 00 :00 (two) Medical times Branch daily. fluticasone 2019-0 Yes 1{spray Use 1 Un merry propionate 6-24 } [place] in ity o f 50 00:00: each [place] mcg/actuati 00 nostril Medic al on nasal daily. Branch spray fluticasone 2018-0 Yes 1{spray Use 1 Un merry propionate 6-24 } [place] in ity o f 50 00:00: each [place] mcg/actuati 00 nostril Medic al on nasal daily. Branch spray fluticasone 2019-0 Yes 1{spray Use 1 Un merry propionate 6-24 } [place] in ity o f 50 00:00: each [place] mcg/actuati 00 nostril Medic al on nasal daily. Branch spray fluticasone 2019-0 Yes 1{spray Use 1 Un merry propionate 6-24 } [place] in ity o f 50 00:00: each [place] mcg/actuati 00 nostril Medic al on nasal daily. Branch spray fluticasone 2019-0 Yes 1{spray Use 1 Un merry propionate 6-24 } [place] in ity o f 50 00:00: each [place] mcg/actuati 00 nostril Medic al on nasal daily. Branch spray fluticasone 2019-0 Yes 1{spray Use 1 Un merry propionate 6-24 } [place] in ity o f 50 00:00: each [place] mcg/actuati 00 nostril Medic al on nasal daily. Branch spray fluticasone 2019-0 Yes 1{spray Use 1 Un merry propionate 6-24 } [place] in ity o f 50 00:00: each [place] mcg/actuati 00 nostril Medic al on nasal daily. Branch spray fluticasone 2018-0 Yes 1{spray Use 1 Un merry propionate 6-24 } [place] in ity o f 50 00:00: each [place] mcg/actuati 00 nostril Medic al on nasal daily. Branch spray fluticasone 2018-0 Yes 1{spray Use 1 Un merry propionate 6-24 } [place] in ity o f 50 00:00: each [place] mcg/actuati 00 nostril Medic al on nasal daily. Branch spray fluticasone 2018-0 Yes 1{spray Use 1 Un merry propionate 6-24 } [place] in ity o f 50 00:00: each [place] mcg/actuati 00 nostril Medic al on nasal daily. Branch spray fluticasone 2018-0 Yes 1{spray Use 1 Un merry propionate 6-24 } [place] in ity o f 50 00:00: each [place] mcg/actuati 00 nostril Medic al on nasal daily. Branch spray fluticasone 2018-0 Yes 1{spray Use 1 Un merry propionate 6-24 } [place] in ity o f 50 00:00: each [place] mcg/actuati 00 nostril Medic al on nasal daily. Branch spray fluticasone 2018-0 Yes 1{spray Use 1 Un merry propionate 6-24 } [place] in ity o f 50 00:00: each [place] mcg/actuati 00 nostril Medic al on nasal daily. Branch spray fluticasone 2019-0 Yes 1{spray Use 1 Un merry propionate 6-24 } [place] in ity o f 50 00:00: each [place] mcg/actuati 00 nostril Medic al on nasal daily. Branch spray fluticasone 2018-0 Yes 1{spray Use 1 Un merry propionate 6-24 } [place] in ity o f 50 00:00: each [place] mcg/actuati 00 nostril Medic al on nasal daily. Branch spray fluticasone 2019-0 Yes 1{spray Use 1 Un merry propionate 6-24 } [place] in ity o f 50 00:00: each [place] mcg/actuati 00 nostril Medic al on nasal daily. Branch spray fluticasone 2019-0 Yes 1{spray Use 1 Un merry propionate 6-24 } [place] in ity o f 50 00:00: each [place] mcg/actuati 00 nostril Medic al on nasal daily. Branch spray fluticasone 2018-0 Yes 1{spray Use 1 Un merry propionate 6-24 } [place] in ity o f 50 00:00: each [place] mcg/actuati 00 nostril Medic al on nasal daily. Branch spray fluticasone 2018-0 Yes 1{spray Use 1 Un merry propionate 6-24 } [place] in ity o f 50 00:00: each [place] mcg/actuati 00 nostril Medic al on nasal daily. Branch spray fluticasone 2018-0 Yes 1{spray Use 1 Un merry propionate 6-24 } [place] in ity o f 50 00:00: each [place] mcg/actuati 00 nostril Medic al on nasal daily. Branch spray fluticasone 2018-0 Yes 1{spray Use 1 Un merry propionate 6-24 } [place] in ity o f 50 00:00: each [place] mcg/actuati 00 nostril Medic al on nasal daily. Branch spray fluticasone 2018-0 Yes 1{spray Use 1 Un merry propionate 6-24 } [place] in ity o f 50 00:00: each [place] mcg/actuati 00 nostril Medic al on nasal daily. Branch spray fluticasone 2018-0 Yes 1{spray Use 1 Un merry propionate 6-24 } [place] in ity o f 50 00:00: each [place] mcg/actuati 00 nostril Medic al on nasal daily. Branch spray latanoprost 2019-0 Yes 1[drp] Place 1 U [...] pirit one) one) 00:00: - [facility] 00 [facility] 2017[facility]0 No 40mg Common (Triamcinol (Triamcinol 4-25 S pirit one) one) 00:00: - [facility] 2017-0 No 40mg Common (Triamcinol (Triamcinol 4-25 S pirit one) one) 00:00: - [facility] 2017-0 No 40mg Common (Triamcinol (Triamcinol 4-25 S pirit one) one) 00:00: - [facility] 2017-0 No 40mg Common (Triamcinol (Triamcinol 4-25 S pirit one) one) 00:00: - [facility] 2017-0 No 40mg Common (Triamcinol (Triamcinol 4-25 S pirit one) one) 00:00: - [facility] 2017-0 No 40mg Common (Triamcinol (Triamcinol 4-25 S pirit one) one) 00:00: - [facility] azithromyci 2017-0 Yes 250mg QD Take [address] [facility] (ZITHROMAX) 00:00: (250 mg Med ical 250 MG 00 total) by Center tablet mouth daily Take by mouth as directed.. predniSONE 0 Yes Take 4 [facility] S t (DELTASONE) [...] tablets daily until tablets run out.. predniSONE 2017-0 Yes Take 4 [facility] [...] daily Take by mouth as directed.. azithromyci Yes 250mg QD Take 1 [facility] [...] 2023-01-14 122 mm[Hg] University of pressure 18:20:00 [facility] [place] [facility] Diastolic blood 2023-01-14 70 mm[Hg] University o f pressure 18:20:00 [facility] [place] [facility] Heart rate 2023-01-14 50 /min University 18:20:00 [facility] [place] [facility] Body height 2023-01-14 175.3 cm University 18:20:00 [facility] [place] [facility] Body weight 2023-01-14 133.584 kg University 18:20:00 [facility] [place] [facility] BMI 2023-01-14 43.49 kg/m2 University of 18:20:00 [facility] [place] [facility] Oxygen saturation 2023-01-14 89 /min on personal O2 Universi ty of in Arterial blood 18:20:00 [facility] by Pulse oximetry [place] Systolic blood 2022-11-26 148 mm[Hg] University of pressure 21:03:00 [facility] [place] [facility] Diastolic blood 2022-11-26 87 mm[Hg] University o f pressure 21:03:00 [facility] [place] [facility] Heart rate 2022-11-26 87 /min University 21:03:00 [facility] [place] [facility] Body height 2022-11-26 175.3 cm University of 21:03:00 [facility] [place] [facility] Body weight 2022-11-26 133.358 kg University of 21:03:00 [facility] [place] [facility] BMI 2022-11-26 43.42 kg/m2 University of 21:03:00 [facility] [place] [facility] Oxygen saturation 2022-11-26 88 /min on oxygen tank Universi ty of in Arterial blood 21:03:00 [facility] by Pulse oximetry [place] height 2022-09-11 69 [in_i] [facility] - 13:20:00 [facility] weight 2022-09-11 284 [lb_av] [facility] - 13:20:00 [facility] bmi 2022-09-11 41.93 kg/m2 [facility] - 13:20:00 [facility] oximetry 2022-09-11 94 % [facility] - 13:20:00 [facility] Systolic blood 2022-08-13 158 mm[Hg] University of pressure 20:06:00 [facility] [place] [facility] Diastolic blood 2022-08-13 100 mm[Hg] University o f pressure 20:06:00 [facility] [place] [facility] Heart rate 2022-08-13 89 /min University of 20:06:00 [facility] Branch Respiratory rate 2022-08-13 16 /min University of 20:06:00 [facility] [place] [facility] Body height 2022-08-13 175.3 cm University of 20:06:00 [facility] [place] [facility] Body weight 2022-08-13 130.636 kg University of 20:06:00 [facility] [place] [facility] BMI 2022-08-13 42.53 kg/m2 University of 20:06:00 [facility] [place] [facility] Oxygen saturation 2022-08-13 87 /min University of in Arterial blood 20:06:00 [facility] derrick by Pulse oximetry Branch Systolic blood 2022-08-05 111 mm[Hg] University of pressure 17:15:00 [facility] Branch Diastolic blood 2022-08-05 73 mm[Hg] University o f pressure 17:15:00 [facility] [place] [facility] Heart rate 2022-08-05 97 /min University of 17:15:00 [facility] [place] [facility] Respiratory rate 2022-08-05 26 /min University of 17:15:00 [facility] [place] [facility] Body height 2022-08-05 175.3 cm University of 17:15:00 [facility] [place] [facility] Body weight 2022-08-05 130.636 kg University of 17:15:00 [facility] [place] [facility] BMI 2022-08-05 42.53 kg/m2 University of 17:15:00 [facility] [place] [facility] Oxygen saturation 2022-08-05 86 /min University of in Arterial blood 17:15:00 [place] [facility] by Pulse oximetry Branch Systolic blood 2022-06-07 153 mm[Hg] University of pressure 18:07:00 [facility] Branch Diastolic blood 2022-06-07 97 mm[Hg] University o f pressure 18:07:00 [facility] [place] [facility] Heart rate 2022-06-07 96 /min University of 18:07:00 [facility] Body temperature 2022-06-07 36.39 [facility] 18:07:00 [facility] Body height 2022-06-07 175.3 cm [facility] 18:07:00 [facility] Body weight 2022-06-07 130.636 kg [facility] 18:07:00 [facility] BMI 2022-06-07 42.53 kg/m2 [facility] 18:07:00 [facility] height 2022-05-07 69 [in_i] [facility] - 14:40:00 [facility] weight 2022-05-07 282 [lb_av] [facility] - 14:40:00 [facility] temperature 2022-05-07 98.0 [degF] [facility] - 14:40:00 [facility] bmi 2022-05-07 41.64 kg/m2 [facility] - 14:40:00 [facility] oximetry 2022-05-07 96 % [facility] Spirit - 14:40:00 [facility] respiratory rate 2022-05-07 16 /min [facility] - 14:40:00 [facility] blood pressure 2022-05-07 132 mm[Hg] [facility] - systolic 14:40:00 [facility] blood pressure 2022-05-07 86 mm[Hg] [facility] - diastolic 14:40:00 [facility] Procedures Procedure Date / Time Performing Clinician Source Performed [facility] PATIENT FINANCIAL 2022-11-26 20:50:29 Doctor Unassigned, No [facility] POLICY [facility] DME/SUPPLY JUSTIFICATION 2022-08-13 06:01:00 Doctor Unassigned, No [facility] XR CERVICAL SPINE 2 VW 2022-08-05 17:43:18 Calos Dunaway [facility] XR SHOULDER 2+ VW RIGHT 2022-08-05 17:43:18 [facility] FOR 2022-08-05 17:20:37 Doctor Unassigned, No Un [facility] DIAGNOSIS AND TREATMENT [facility] ASSIGNMENT OF BENEFITS 2022-08-05 17:02:56 Doctor Unassigned, No [facility] XR SHOULDER 2+ VW RIGHT 2022-06-07 18:28:19 Jethro Dodge [facility] Encounters Start End Encounter Admission Attending Care Care Encounter Source Date/Time Date/Time Type Type Clinicians Facility Department ID 2022-09-03 Outpatient HowardUBALDO florian [facility] Common 14:13:02 Billy [id number] [facility] 2022-07-30 Outpatient HowardUBALDO florian [facility] Common 15:03:01 Billy [id number] [facility] 2022-05-07 Outpatient HowardUBALDO florian [facility] Common 14:36:03 [facility] 2023-03-12 2023-03-12 Outpatient Pepper CHURCH [facility] [id number] Univers 09:30:00 09:30:00 GIAN [facility] 2023-03-06 2023-03-06 [facility] [id number] Univers 00:00:00 00:00:00 Gian HARTMANPEC 350.1.13.10 ity of IAL[place] 4.2.7.2.686 [facility] [id number] [address] DIABETES CLINIC 2023-01-14 2023-01-14 Outpatient Pepper LEBLANC [facility] [id number] Univers 13:30:00 13:48:27 MARTIN [facility]des [facility] 2023-01-14 2023-01-14 Office Deana [facility] [id number] Univers 13:30:00 13:48:27 Visit Martin ADDISON 350.1.13.10 ity evette IALTY 4.2.7.2.686 [facility] [id number] [address] DIABETES CLINIC 2022-12-17 2022-12-17 Outpatient KRISTEN FORTE [facility] [id number] Univers 10:00:00 10:00:00 [facility]RI[facility]EN PATRICK [facility] 2022-12-11 2022-12-11 [facility] [id number] Univers 00:00:00 00:00:00 [facility] MULTISPEC 350.1.13.10 ity [place] [id number] [address] DIABETES CLINIC 2022-12-10 2022-12-10 Outpatient R SOM LORRAINE [facility] [id number] Univers 14:30:00 14:30:00 SOM LORRAINE [facility] 2022-12-10 2022-12-[address] [facility] [id number] Univers 00:00:00 00:00:00 Martinaugust ADDISON 350.1.13.10 ity of [place] 4.2.7.2.686 [facility] [id number] [address] DIABETES CLINIC 2022-12-09 2022-12-09 [facility]phone [facility] [id number] Univers 00:00:00 00:00:00 [facility] CYN 350.1.13.10 ity of [place] 4.2.7.2.686 [facility] [place] [id number] [address] DIABETES CLINIC 2022-11-26 2022-11-26 Outpatient R DEANA [facility] [id number] Univers 15:30:00 15:49:04 MARTIN [facility]des [facility] 2022-11-26 2022-11-26 [facility] [id number] Univers 15:30:00 15:49:04 Visit Martin ADDISON 350.1.13.10 ity of [place] 4.2.7.2.686 [facility] [id number] [address] DIABETES CLINIC 2022-11-26 2022-11-26 Orders Doctor THI [id number] [id number] Univers 00:00:00 00:00:00 Only Unassigned, VIRGILIO 350.1.13.10 ity of [place] [facility] 4.2.7.2.686 Satish as [id number] [address] 2022-11-05 2022-11-05 Outpatient R SHILO [facility] [id number] Univers 14:00:00 14:00:00 JETHRO [facility]des [facility] 2022-10-29 2022-10-29 [facility] [id number] Univers 00:00:00 00:00:00 ashley [facility] 350.1.13.10 it [place] [id number] [facility] [id number] [facility] PRIMARY & [address] SPECIALTY CARE 2022-10-22 2022-10-22 Outpatient R DEANA [facility] [id number] Univers 15:00:00 15:00:00 MARTIN valdes [facility] 2022-10-21 2022-10-21 Outpatient R HILLARY [facility] [id number] Univers 13:00:00 13:00:00 keisha BAKER [facility] 2022-10-17 2022-10-17 (TEL) STLMLC STLMLC [id number] Co mmon 00:00:00 00:00:00 [facility] 2022-10-15 2022-10-15 Outpatient R DEANA [facility] [id number] Univers 14:00:00 14:00:00 MARTIN [facility] 2022-10-15 2022-10-15 [facility] [id number] Univers 00:00:00 00:00:00 Martin [facility] 350.1.13.10 ity [place] [id number] [facility] [id number] [facility] AND [place] [address] DIABETES CLINIC 2022-10-08 2022-10-08 (TEL) STLMLC STLMLC [id number] Co mmon 00:00:00 00:00:00 [facility] 2022-09-11 2022-09-11 (TEL) STLMLC STLMLC [id number] Co mmon 00:00:00 00:00:00 [facility] 2022-09-11 2022-09-11 [facility] [id number] Co mmon 00:00:00 00:00:00 VISIT Fabien WONG PT - CHI LEVEL 4 [facility] 2022-09-10 2022-09-10 Outpatient R SHILO [facility] [id number] Univers 16:00:00 16:00:00 JETHRO ity of [facility] 2022-09-06 2022-09-06 Telephone Hillary [facility] [id number] [id number] Univers 00:00:00 00:00:00 MAXI baker 350.1.13.10 ity of [facility] 4.2.7.2.[place] AT [id number] Ct [address] 2022-09-06 2022-09-06 Telephone Lanny [facility] [id number] Univers 00:00:00 00:00:00 Sheryl HARTMANPEC 350.1.13.10 [place] [id number] [address] DIABETES CLINIC 2022-08-13 2022-08-13 Outpatient R HILLARY [facility] [id number] Univers 14:00:00 15:50:10 keisha BAKER of [facility] 2022-08-13 2022-08-13 Office Sheryl Ca [facility] 1.2.840.114 [id number] Univers 14:00:00 15:50:10 Visit Negra Dunaway MULTISPEC 350 .1.13.10 [place] [id number] [facility] AND [place] [address] [place] [facility] 2022-08-13 2022-08-13 Orders Doctor NESS [id number] [id number] Univers 00:00:00 00:00:00 Only Unassigned, VIRGILIO 350.1.13.10 ity of [place] [facility] 4.2.7.2.686 Satish as [id number] [address] 2022-08-072022-08-07 (TEL) STLMLC STLMLC [id number] Co mmon 00:00:00 00:00:00 [facility] 2022-08-05 2022-08-05 [facility] 1.2.840.114 [id number] Univers 11:21:07 23:59:00 Encounter [facility] 350.1.13.10 ity of [facility] 4.2.7.2.686 [facility] [id number] [facility] PRIMARY & [address] SPECIALTY CARE 2022-08-05 2022-08-05 Office [facility] 1.2.840.114 [id number] Univers 11:40:00 12:00:00 Visit ashley [facility] 350.1.13.10 it y of [facility] 4.2.7.2.686 [facility] [id number] [facility] PRIMARY & [address] SPECIALTY CARE 2022-08-05 2022-08-05 Outpatient R [facility] [id number] Univers 11:40:00 11:40:00 [facility] 2022-08-05 2022-08-05 Orders Doctor NESS 1.2.840.114 [id number] Univers 00:00:00 00:00:00 Only Unassigned, VIRGILIO 350.1.13.10 ity of [place] [facility] 4.2.7.2.686 [facility] [id number] [place] [address] Branch 2022-07-29 2022-07-29 Outpatient R [facility] [id number] Univers 16:00:00 16:00:00 david BAKERy of [facility] 2022-06-24 2022-06-24 Outpatient R [facility] [id number] Univers 11:40:00 11:40:00 ASHLEY davidy [facility] 2022-06-07 2022-06-07 [facility] 1.2.840.114 [id number] Univers 13:11:58 23:59:00 Encounter Jethro SPECIALTY 350.1.13.10 ity [facility] 4.2.7.2.686 [facility] AT [id number] Ct terrence HOOK [address] [facility] 2022-06-07 2022-06-07 Office Dar [facility] [id number] Univers 13:20:00 13:44:39 Visit Jethro SPECIALTY 350.1.13.10 ity [facility] 4.2.7.2.686 [facility] AT [id number] Ct terrence HOOK [address] [facility] 2022-06-07 2022-06-07 Outpatient Pepper DODGE [facility] [id number] Univers 13:20:00 13:44:39 [facility] 2022-06-07 2022-06-07 Outpatient Pepper DODGE [facility] [id number] Univers 13:20:00 13:44:39 [facility] 2022-06-07 2022-06-07 Outpatient Pepper DODGE [facility] [id number] Univers 13:20:00 13:20:00 [facility] 2022-05-30 2022-05-30 Outpatient Pepper DODGE [facility] [id number] Univers 13:10:00 13:10:00 [facility] 2022-05-22 2022-05-22 Orders Doctor THI Alvarez2.840.114 [id number] Univers 00:00:00 00:00:00 Only Unassigned, VIRGILIO 350.1.13.10 ity of [place] [facility] 4.2.7.2.686 [facility] [id number] [address] 2022-05-07 2022-05-07 OFFICE [facility] [id number] Co mmon 00:00:00 00:00:00 VISIT Spirit ESTAB PT - CHI LEVEL 4 [facility] 2022-05-07 2022-05-07 [id number] Co mmon 00:00:00 00:00:00 Spirit - [facility] 2022-04-18 2022-04-18 Orders Doctor THI Alvarez2.840.114 [id number] Univers 00:00:00 00:00:00 Only Unassigned, VIRGILIO 350.1.13.10 ity of [place] [facility] 4.2.7.2.686 Satish as [id number] [facility] [address] [place] 2021-06-15 2021-06-15 Office Nette Kingen [facility] Michael 1.2.840.114 [id number] Univers 14:04:32 15:05:28 Visit Salazar Girard 350.1.13.10 it y of [facility] 4[place]2.[place].2.[place] [id number] [facility] [address] 2021-06-15 2021-06-15 Outpatient R CHRISTINE [facility] [id number] Univers 14:30:00 14:30:00 [facility]y [facility] 2021-06-08 2021-06-08 Outpatient R CHRISTINE [facility] [id number] Univers 14:00:00 14:00:00 ity [facility] 2021-06-04 2021-06-04 Outpatient R JESSE ARREDONDO [facility] [id number] Univers 13:00:00 13:00:00 ity [facility] 2021-01-25 2021-01-25 Orders Doctor NESS 1.2.840.114 [id number] 00:00:00 00:00:00 Only Unassigned, VIRGILIO 350.1.13.10 [place] [facility] 4.2.7.2.686 [id number] 2021-01-25 2021-01-25 Orders Doctor NESS 1.2.840.114 [id number] Univers 00:00:00 00:00:00 Only Unassigned, VIRGILIO 350.1.13.10 ity of [place] [facility] 4.2.7.2.686 Satish as [id number] [address] 2021-01-15 2021-01-15 Orders Doctor NESS 1.2.840.114 [id number] 00:00:00 00:00:00 Only Unassigned, VIRGILIO 350.1.13.10 [place] [facility] 4.2.7.2.686 [id number] 2021-01-15 2021-01-15 Orders Doctor NESS 1.2.840.114 [id number] Univers 00:00:00 00:00:00 Only Unassigned, VIRGILIO 350.1.13.10 ity of [place] [facility] 4.2.7.2.686 Satish as [phone] [facility] [address] 2020-11-17 2020-11-17 [facility] 1.2.840.114 [id number] 00:00:00 00:00:00 Management [place] Oates MULTISPEC 350.1.13.10 [place]AL[place] 4.2.7.2.686 VIENNA [phone] AND ONEIL [facility] DIABETES CLINIC 2020-11-17 2020-11-17 Transition Molly Hernandez 1.2.840.114 [id number] 00:00:00 00:00:00 of Care Viviana Leviy 350.1.13.10 [place] 4.2.7.2.686 [id number] 403 2020-11-17 2020-11-17 Transition Molly Hernandez 1.2.840.114 [id number] Univers 00:00:00 00:00:00 of Care Viviana Person Chiu 350.1.13.10 i [place] of [place].2.[place] [phone] [facility] [address] 2020-11-17 2020-11-17 [facility] 1.2.840.114 [id number] Univers 00:00:00 00:00:00 Management [place] Oates MULTISPEC 350.1.13.10 ity of [place] C[place] [phone] [facility] AND [address] DIABETES CLINIC 2020-11-12 2020-11-16 Hospital Jeronimo Hogue 1.2.840.1 14 [id number] 18:33:00 16:20:00 Encounter Julian Gonzales 350.1.13.10 [place] [facility] 4.2.7.2.686 Sammie Tarango [phone] Tyler Trevizo 09Chu Causey Shahzad Suthar, Krishna Hemant 2020-11-12 2020-11-16 Inpatient X [facility], [facility] [id number] Univers 18:33:00 16:20:00 CHU ity of [facility] 2020-11-12 2020-11-16 [facility] Jeronimo Hogue 1.2.840.1 14 [id number] Univers 18:33:00 16:20:00 Encounter Julian Gonzales 350.1.13.10 ity of [facility] 4.2.7.2.686 [facility] [phone] [facility] Tyler Trevizo [address] S[address] Chu MorenoTyler Harrishar Chu Moreno 2020-11-14 2020-11-14 Telephone [facility] 1.2.840.114 [id number] 00:00:00 00:00:00 ashley, SPECIALTY 350.1.13.10 [place] CARE 4.2.7.2.686 CENTER AT [phone] [address] 2020-11-14 2020-11-14 [facility] 1.2.840.114 [id number] Univers 00:00:00 00:00:00 ashley, SPECIALTY 350.1.13.10 ity of [place] C[place] AT [phone] Ct [address] 2020-11-13 2020-11-13 Transition Molly Verdugo 1.2.840.114 [id number] 00:00:00 00:00:00 of Care Lizbeth Chiu 350.1.13.10 [place] [phone] [facility] 2020-11-13 2020-11-13 Transition Molly Verdugo 1.2.840.114 [id number] [facility] 00:00:00 00:00:00 of Care Lizbeth Chiu 350.1.13.10 it y of [place]7.2.[place] [phone] [address] 2020-11-07 2020-11-11 [facility] Jeronimo Hogue [facility] 1.2.840.1 14 [id number] 06:48:00 14:50:00 Encounter Gita Annette Perry 350.1.13.10 [place] 4.2.7.2.686 [facility] [phone] [facility] 2020-11-07 2020-11-11 Inpatient X GITA [facility] [id number] Univers 06:48:00 14:50:00 ANNETTE ity [facility] 2020-11-07 2020-11-11 [facility] Jeronimo Hogue [facility] 1.2.840.1 14 [id number] Univers 06:48:00 14:50:00 Encounter Annette Conrad 350.1.13.10 ity of [place] 4.2.7.2.686 [facility] [phone] [address] 2020-07-12 2020-07-12 [facility] 1.2.840.114 [id number] 11:56:24 23:59:00 Encounter ashley, Pediatric 350.1.13.10 [place] and 4.2.7.2.686 Adult [phone] [place] 784049 Care Clinic 2020-07-12 2020-07-12 [facility] 1.2.840.114 [id number] [facility] 11:56:24 23:59:00 Encounter ashley, Pediatric 350.1.13.10 ity of [place] and [place]2.7.2.[place] [id number] [facility] Primary [address] Care Clinic 2020-07-12 2020-07-12 [facility] 1.2.840.114 [id number] 11:00:10 13:58:54 Visit ashley, Pediatric 350.1.13.10 [place] and 4.2.7.2.686 Adult [id number] Primary [address] [place] [address] 2020-07-12 2020-07-12 [facility] 1.2.840.114 [id number] Univers 11:00:10 13:58:54 Visit ashley, Pediatric 350.1.13.10 ity of [place] and [place].7.2.[place] [id number] [address] Clinic 2020-07-12 2020-07-12 Outpatient R HILLARY [facility] [id number] Univers 11:00:00 11:00:00 ASHLEY, ity of [place] [facility] 2020-07-03 2020-07-03 Orders Doctor THI 1.2.840.114 [id number] 00:00:00 00:00:00 Only Unassigned, V[place]ILIO 350.1.13.10 [place] [facility] 4.2.7.2.686 [id number] 2020-07-03 2020-07-03 Orders Doctor THI 1.2.840.114 [id number] Univers 00:00:00 00:00:00 Only Unassigned, VIRGILIO 350.1.13.10 ity of [place] HOSPITAL 4.2.7.2.686 Satish as [phone] [address] 2020-06-02 2020-06-02 [facility] 1.2.840.114 [id number] Univers 12:31:11 14:20:12 Visit Edilma Amador 350.1.13.10 ity of [place].2.[place] Profess[place] [phone] [address] 2020-06-02 2020-06-02 Outpatient R JENNIFER, [facility] [id number] Univers 13:00:00 13:00:00 EDILMA valdes of [facility] 2020-06-02 2020-06-02 Orders Doctor NESS 1.2.840.114 [id number] Univers 00:00:00 00:00:00 Only Unassigned, VIRGILIO 350.1.13.10 ity of [place] HOSPITAL 4.2.7.2.686 Satish as [phone] [address] 2020-05-26 2020-05-26 Outpatient R JENNIFER, [facility] [id number] Univers 10:45:00 10:45:00 EDILMA valdes [facility] 2020-05-26 2020-05-26 Telemedici [facility] 1.2.840.114 [id number] Univers 08:07:24 08:37:24 ne Visit Edilma Mohit [place] 350.1.13.10 ity of [place]2.[place] Profess[place] [phone] Ct dical [address] 2020-05-12 2020-05-12 [facility] [id number] Univers 13:00:00 13:00:00 EDILMA ity [facility] 2020-04-25 2020-04-25 Hospital [facility] 1.2.840.114 [id number] Univers 15:50:23 23:59:00 Encounter Edilmazeinab Amador 350.1.13.10 ity of [place].2.[place] [id number] [facility] [address] 2020-04-25 2020-04-25 Outpatient [facility] [id number] Univers 00:00:00 00:00:00 EDILMA ity [facility] 2020-04-25 2020-04-25 Orders Doctor THI 1.2.840.114 [id number] Univers 00:00:00 00:00:00 Only Unassigned, VIRGILIO 350.1.13.10 ity of [place] [facility] 4.2.7.2.686 Satish as [phone] [facility] [address] [place] 2020-04-14 2020-04-14 Office [facility] 1.2.840.114 [id number] Univers 14:15:54 14:56:38 Visit Edilma Amador 350.1.13.10 it[place] of [place].2.[place] Profess[place] [phone] Ct dical nal [address] [place] [address] 2020-04-14 2020-04-14 Outpatient R [facility] [id number] Univers 13:30:00 13:30:00 EDILMA ity [facility] 2020-04-13 2020-04-13 Orders Doctor THI 1.2.840.114 [id number] Univers 00:00:00 00:00:00 Only Unassigned, VIRGILIO 350.1.13.10 ity of [place] HOSPITAL 4.2.7.2.686 Satish as [phone] [facility] [address] 2019-11-01 2019-11-01 Telephone [facility] 1.2.840.114 [id number] Univers 00:00:00 00:00:00 [facility] 350.1.13.10 it y of [place] 4.2.7.2.686 [facility] [phone] [facility] Primary & [address] Specialty Care 2019-10-28 2019-10-28 Telephone [facility] 1.2.840.114 [id number] Univers 00:00:00 00:00:00 [facility] 350.1.13.10 it y of [place] 4.2.7.2.686 [facility] [phone] [facility] Primary & [address] Specialty Care 2019-10-26 2019-10-26 Office [facility] 1.2.840.114 [id number] Univers 14:08:12 15:44:07 Visit Jethro MEERA 350.1.13.10 it y of [place] 4.2.7.2.686 [facility] [phone] [facility] Primary & [address] Specialty Care 2019-10-07 2019-10-07 Telephone [facility] 1.2.840.114 [id number] Univers 00:00:00 00:00:00 Jethro ZAVALA 350.1.13.10 i ty of [facility] 4.[place].7.2.[place] [id number] [facility] [address] 2019-10-06 2019-10-06 Outpatient [facility] [id number] Univers 10:39:27 23:59:00 JETHRO ity of [facility] 2019-10-06 2019-10-06 [facility] Aleida Zhao 1.2.753.643 [id number] Univers 10:39:00 23:59:00 Encounter Jethro Menedz 350.1.13.10 ity of [facility] 4.2.7.2.686 [place] [phone] [facility] [address] 2019-10-06 2019-10-06 [facility] Aleida Zhao 1.2.409.473 [id number] Univers 09:41:27 16:32:00 Encounter Jethro Mendez 350.1.13.10 ity of [facility] 4.2.7.2.686 [place] as [id number] [facility] [address] 2019-10-06 2019-10-06 Orders Doctor THI 1.2.840.114 [id number] [facility] 00:00:00 00:00:00 Only Unassigned, VIRGILIO 350.1.13.10 ity of [place] [facility] 4.2.7.2.686 Satish as [phone] [facility] [address] 2019-05-28 2019-05-28 Office Regalado, [facility] 1.2.840.114 [id number] [facility] 13:10:51 15:03:17 Visit Nesha Amador 350.1.13.10 i ty of [place] [phone] Me dical nal [address] Building Results [...] NOT 1092) ACCURATE CRE ATININE CLEARANCE IN WI EDICTING GLOMERULAR FILT RATION RATE. ESTIMATED GFR [...] 0-0 (AKER) (test code = 413) 0.00POCT-GLUCOSE [id number] 17:50:00 Test Item Value Reference Range Interpretation Comments POC-GLUCOSE METER 118 mg/dL 70-110 H TESTED AT [place] [address] ([facility]) (test code = KISHA Pabon [facility] 1538) [id number] POCT-GLUCOSE [id number] 11:59:00 Test Item Value Reference Range Interpretation Comments POC-GLUCOSE METER 247 mg/dL 70-110 H TESTED AT [place] [address] ([facility]) (test code = [facility] 1538) [address] POCT-GLUCOSE [id number] 07:54:00 Test Item Value Reference Range Interpretation Comments POC-GLUCOSE METER 141 mg/dL 70-110 H TESTED AT [place] [address] ([facility]) (test code = [facility] Pepper [facility] 1538) [address] CBC W/PLT COUNT & AUTO [id number] 03:45:00 Test Item Value Reference Range Interpretation Comments WHITE BLOOD CELL COUNT ([facility]) 4.9 K/ L 4.0-10.0 (test code = [...] K/ L 0.00-0.20 (test code = 417) [id number] 03:29:00 Test Item Value Reference Range Interpretation Comments MAGNESIUM (BEAKER) 1.8 mg/dL 1.6-2.6 Specimen slightly (test code = 627) hemolyzed BASIC METABOLIC [id number] 03:29:00 Test Item Value Reference Range Interpretation [...] NOT APPLICABLE FOR DIALYSIS PATIEN TS. POCT-GLUCOSE [id number] 00:05:00 Test Item Value Reference Range Interpretation Comments POC-GLUCOSE METER 117 mg/dL 70-110 H TESTED AT [facility] 67[facility] (test code = [facility] [place] 1538) [address] POCT-GLUCOSE [id number] 18:17:00 Test Item Value Reference Range Interpretation Comments POC-GLUCOSE METER 141 mg/dL 70-110 H TESTED AT [facility] 67[facility] ([facility] (test code = [facility] [place] 1538) [address] CREATINE KINASE (CK), TOTAL AND [id number] 15:43:00 Test Item Value Reference Range Interpretation Comments CREATINE KINASE TOTAL (BEAKER) 31 U/L 29-200 (test code = 380) CREATINE KINASE-MB (BEAKER) (test 1.3 ng/mL 0.0-6.6 code = 750) CREATINE KINASE-MB INDEX (BEAKER) 4.2 % (test code = 395) Effective 08/09/2014: CK-MB Reference Range ChangeNew: 0.0-6.6 Previous: 0.0-4.9CK-MB Reference Range:<6.7 Normal6.7-10.0 Borderline>10.0 Abnormal BLOOD GAS, [id number] 15:26:00 Test Item Value Reference Range Interpretation [...] (test code = 1819) 35.0 % POCT-GLUCOSE [id number] 11:45:00 Test Item Value Reference Range Interpretation Comments POC-GLUCOSE METER 122 mg/dL 70-110 H TESTED AT [facility] 6720 (BEAKER) (test code = KISHA GARCÍA REDDY 1538) [address] CREATINE KINASE (CK), TOTAL AND [id number] 10:29:00 Test Item Value Reference Range Interpretation Comments CREATINE KINASE TOTAL (BEAKER) 31 U/L 29-200 (test code = 380) CREATINE KINASE-MB (BEAKER) (test 1.5 ng/mL 0.0-6.6 code = 750) CREATINE KINASE-MB INDEX (BEAKER) 4.8 % (test code = 395) Effective 08/09/2014: CK-MB Reference Range ChangeNew: 0.0-6.6 Previous: 0.0-4.9CK-MB Reference Range:<6.7 Normal6.7-10.0 Borderline>10.0 Abnormal TROPONIN [id number] 10:29:00 Test Item Value Reference Range Interpretation [...] failure, acidosis, acute neurological disease, and persistent tachyarrhythmia.[id number] 10:22:00 Test Item Value Reference Range Interpretation Comments PARTIAL THROMBOPLASTIN TIME 22.5 seconds 22.5-36.0 (BEAKER) (test code = 760) PROTHROMBIN TIME/[id number] 10:21:00 Test Item Value Reference Range Interpretation Comments PROTIME (BEAKER) (test code = 12.4 seconds 11.7-14.7 759) INR (BEAKER) (test code = 370) 0.9 <=5.9 RECOMMENDED COUMADIN/WARFARIN INR THERAPY RANGESSTANDARD DOSE: 2.0 - 3.0 Includes: PROPHYLAXIS for venous thrombosis, systemic embolization; TREATMENT for venous thrombosis and/or pulmonary embolus.HIGH RISK: Target INR is 2.5-3.5 for patients with mechanical heart valves.BLOOD GAS, [id number] 10:17:00 Test Item Value Reference Range Interpretation [...] (test code = 1819) 40.0 % PLATELET [id number] 10:13:00 Test Item Value Reference Range Interpretation Comments PLATELET COUNT (BEAKER) (test 111 K/CU MM 150-430 L code = 756)
[2023-03-12 04:22] LABS: Absolute Lymphocytes (CBC) 0.9 K/uL (0.7-4.9); Hematocrit 35.8 % (36.0-45.0); Lymphocytes % 13.1 % (15.3-44.8); MCV 82.8 fL (80-100); MPV 7.6 fL (7.6-11.3); RBC Red Blood Cell Count 4.32 M/uL (3.86-4.86)
[2023-03-12 04:23] LABS: Protime INR 1.15
--- NOTE | 2023-03-12 04:35 | ER ---
Nurse's Notes [facility] Name: Vikki Zamudio Age: 62 yrs Sex: Female : 1960 Arrival Date: 03/12/2023 Time: 03:18 Bed 5 Private MD: Diagnosis: CHF, COPD, shortness of breath, hypoxia Presentation: 03/12 03:26 Chief complaint: Patient states: CP STARTED YESTERDAY AT 5P EMS states: CALLED FOR CP jj7 AND LOW BP. Coronavirus screen: At this time, the client does not indicate any symptoms associated with coronavirus-19. Ebola Screen: No symptoms or risks identified at this time. Initial Sepsis Screen: Does the patient meet any 2 criteria? No. Patient's initial sepsis screen is negative. Does the patient have a suspected source of infection? No. Patient's initial sepsis screen is negative. Risk Assessment: Do you want to hurt yourself or someone else? Patient reports no desire to harm self or others. Onset of symptoms was March 11, 2023. Care prior to arrival: Medication(s) given: ASA, 325 mg. 03:26 Method Of Arrival: EMS: [facility] jj7 03:26 Acuity: LIZETH 3 jj7 Triage Assessment: 03:26 General: Appears in no apparent distress. uncomfortable, obese, Behavior is calm, jj7 cooperative, appropriate for age. Pain: Complains of pain in xiphoid area and mid-sternal area. Cardiovascular: Reports chest pain. 03:40 Cardiovascular: Chest pain is described as Pain is 7 out of 10 on a pain scale. quality jj7 is THROBBING is located in began. Historical: - Allergies: 03:33 No Known Allergies; jj7 - PMHx: 03:33 CHF; COPD; GERD; High Cholesterol; Hypercarbia; Hypertension; Hypothyroidism; Panic jj7 Attacks; Sleep Apnea; - PSHx: 03:33 section; Appendectomy; jj7 - Immunization history:: Adult Immunizations up to date, Client reports receiving the 2nd dose of the Covid vaccine. - Social history:: Smoking status: Patient/guardian denies using tobacco, but has a distant history of tobacco abuse. Screenin:50 [facility] ED Fall Risk Assessment (Adult) History of falling in the last 3 months, lg3 including since admission No falls in past 3 months (0 pts). Abuse screen: Denies threats or abuse. Denies injuries from another. Nutritional screening: No deficits noted. Tuberculosis screening: No symptoms or risk factors identified. Assessment: 03:42 Reassessment: SEE TRIAGE ASSESSMENT. jj7 03:50 General: Appears in no apparent distress. uncomfortable, Behavior is cooperative, lg3 anxious. Pain: Complains of pain in chest. Neuro: Bella Agitation-Sedation Scale (RASS): +1 Restless Level of Consciousness is awake, alert, obeys commands, Oriented to person, place, time, situation. Cardiovascular: No deficits noted. Reports chest pain, shortness of breath, Capillary refill < 3 seconds Clubbing of nail beds is absent JVD is absent Patient's skin is warm and dry. Respiratory: Reports shortness of breath air hunger labored breathing. GI: No deficits noted. No signs and/or symptoms were reported involving the gastrointestinal system. Abdomen is round non-distended, obese, Abd is soft and non tender X 4 quads. : No deficits noted. No signs and/or symptoms were reported regarding the genitourinary system. EENT: No deficits noted. No signs and/or symptoms were reported regarding the EENT system. Derm: No deficits noted. No signs and/or symptoms reported regarding the dermatologic system. Skin is intact, is healthy with good turgor, Skin is dry, Skin is normal, Skin temperature is warm. Musculoskeletal: No deficits noted. No signs and/or symptoms reported regarding the musculoskeletal system. Circulation, motion, and sensation intact. Range of motion: intact in all extremities. 05:31 General: pt became lethargic and arousable only to painful stimuli. pt desaturated to lg3 77% on 4 LNC. oxygen increased to 15 L via non -re breather. physician notified. . 06:12 Reassessment:. General: Appears in no apparent distress. comfortable, Behavior is calm, lg3 cooperative. Respiratory: No deficits noted. Airway is patent Respiratory effort is even, unlabored, Respiratory pattern is regular, symmetrical. Vital Signs: 03:26 BP 118 / 49; Pulse 87; Resp 19; Temp 98.3; Pulse Ox 100% on Non-rebreather mask; Weight jj7 136.98 kg; Height 5 ft. 9 in. ; Pain 7/10; 03:50 BP 125 / 78; Pulse 68; Resp 23 S; Pulse Ox 96% on 4 lpm NC; lg3 06:12 BP 117 / 53; Pulse 67; Resp 21; Pulse Ox 99% on 35 lpm BiPAP; lg3 03:26 Body Mass Index 44.60 (136.98 kg, 175.26 cm) j7 03:26 Pain Scale: Adult [facility] ED Course: 03:23 Patient arrived in ED. sp3 03:23 Kaila Howard MD is Attending Physician. sp3 03:26 Arm band placed on right wrist. Patient placed in an exam room, on a stretcher, on jj7 oxygen, on cardiac sonographer, on pulse oximetry. 03:30 Triage completed. j7 03:42 XRAY Chest (1 view) In Process Unspecified. EDMS 03:49 Yessica Cerna, DULCE is Primary Nurse. lg3 03:50 Patient has correct armband on for positive identification. Placed in gown. Bed in low lg3 position. Call light in reach. Side rails up X 1. Client placed on continuous cardiac and pulse oximetry monitoring. NIBP monitoring applied. library monitor on. Door closed. Noise minimized. Warm blanket given. 03:50 Oxygen administration via nasal cannula \T\ 4L/min Response to oxygen therapy: symptoms lg3 improved. 03:58 US Extremity Venous Unilateral Ltd In Process Unspecified. EDMS 04:07 Inserted saline lock: 22 gauge in right antecubital area, using aseptic technique. lg3 Blood collected. 04:35 Tarun Amaro MD is Hospitalizing Provider. sp3 05:37 CT Chest For PE Angio In Process Unspecified. EDMS 06:12 No provider procedures requiring assistance completed. Patient admitted, IV remains in lg3 place. intact, No redness/swelling at site. 06:23 BIPAP Sent. lg3 Administered Medications: 06:22 Drug: MethylPrednisoLONE IVP 125 mg Route: IVP; Site: right antecubital; lg3 07:12 Follow up: Response: No adverse reaction bp 06:23 Drug: Magnesium Sulfate IVPB 2 grams Route: IVPB; Infused Over: 2 hrs; Site: right lg3 antecubital; 07:12 Follow up: IV Status: Completed infusion bp 06:30 Drug: DuoNeb Nebulize (2.5 mg - 0.5 mg) 3 ml Route: Nebulizer; bp 07:14 Follow up: Response: No adverse reaction bp Medication: 06:12 VIS not applicable for this client. lg3 Outcome: 04:35 Decision to Hospitalize by Provider. sp3 14:55 Admitted to ICU ld1 14:55 Condition: stable 14:55 Instructed on the need for admit. 14:55 Patient left the ED. ld1 Signatures: Dispatcher [employer] EDTremayne Flores RN RN bp Yessica Cerna RN RN lg3 Cathy Ernst RN RN ld1 Kaila Howard MD MD sp3 Marcos Villegas RN RN jj7 Corrections: (The following items were deleted from the chart) 05:55 05:55 DuoNeb Nebulize (2.5 mg - 0.5 mg) 3 ml Nebulizer lg3 lg3 05:56 05:56 General: lg3 lg3
--- NOTE | 2023-03-12 04:35 | EDPHYS ---
Physician Documentation [facility] Name: Vikki Zamudio Age: 62 yrs Sex: Female : 1960 Arrival Date: 03/12/2023 Time: 03:18 Bed 5 Private MD: ED Physician Kaila Howard HPI: 03/12 03:25 This 62 yrs old Female presents to ER via Unassigned with complaints of shortness of sp3 breath, chest pain and right leg swelling. 03:29 62-year-old female with extensive past medical history including CHF, COPD on home O2 sp3 with goal saturations of 85%, hypertension, hyperlipidemia, paroxysmal atrial fibrillation presents to the ED with chief complaint chest pain for 24 hours, progressing shortness of breath, and right lower extremity swelling for approximately 2 to 3 days steadily increasing in nature. Patient has had multiple admissions here in the past and sees local physician Dr. Howard as primary care. She denies any new pattern in her presentation other than the right lower extremity swelling which is new. She denies any long airline or car travel or prolonged immobilization, known sick contacts or travel history. On review of systems, she denies headache, fever, neck pain, abdominal pain, back pain, nausea, vomiting, diarrhea, skin rash, focal neurological deficit, syncope, near syncope or any other signs or symptoms at this time.. Historical: - Allergies: 03:33 No Known Allergies; jj7 - PMHx: 03:33 CHF; COPD; GERD; High Cholesterol; Hypercarbia; Hypertension; Hypothyroidism; Panic jj7 Attacks; Sleep Apnea; - PSHx: 03:33 section; Appendectomy; jj7 - Immunization history:: Adult Immunizations up to date, Client reports receiving the 2nd dose of the Covid vaccine. - Social history:: Smoking status: Patient/guardian denies using tobacco, but has a distant history of tobacco abuse. ROS: 03:30 Constitutional: Negative for fever, chills, and weight loss, Eyes: Negative for injury, sp3 pain, redness, and discharge, ENT: Negative for injury, pain, and discharge, Neck: Negative for injury, pain, and swelling, Abdomen/GI: Negative for abdominal pain, nausea, vomiting, diarrhea, and constipation, Back: Negative for injury and pain, Skin: Negative for injury, rash, and discoloration, Neuro: Negative for headache, weakness, numbness, tingling, and seizure, Psych: Negative for depression, anxiety, suicide ideation, homicidal ideation, and hallucinations, Allergy/Immunology: Negative for hives, rash, and allergies, Endocrine: Negative for neck swelling, polydipsia, polyuria, polyphagia, and marked weight changes, Hematologic/Lymphatic: Negative for swollen nodes, abnormal bleeding, and unusual bruising. 03:30 All other systems are negative. Exam: 03:31 Head/Face: Normocephalic, atraumatic. Eyes: Pupils equal round and reactive to light, sp3 extra-ocular motions intact. Lids and lashes normal. Conjunctiva and sclera are non-icteric and not injected. Cornea within normal limits. Periorbital areas with no swelling, redness, or edema. ENT: Nares patent. No nasal discharge, no septal abnormalities noted. External auditory canals are clear. Oropharynx with no redness, swelling, or masses, exudates, or evidence of obstruction, uvula midline. Mucous membranes moist. Neck: Trachea midline, no thyromegaly or masses palpated, and no cervical lymphadenopathy. Supple, full range of motion without nuchal rigidity, or vertebral point tenderness. No Meningismus. Chest/axilla: Normal chest wall appearance and motion. Nontender with no deformity. No lesions are appreciated. Abdomen/GI: Soft, non-tender, with normal bowel sounds. No distension or tympany. No guarding or rebound. No evidence of tenderness throughout. Back: No spinal tenderness. No costovertebral tenderness. Full range of motion. Skin: Warm, dry with normal turgor. Normal color with no rashes, no lesions, and no evidence of cellulitis. 03:31 Constitutional: The patient appears alert, awake, Mild shortness of breath and use of accessory muscles with respiratory rate 20-22. 03:31 Cardiovascular: Patient is tachycardic. EKG is pending.. 03:31 Respiratory: Bilateral rales noted.. 04:17 ECG was reviewed by the Attending Physician. EKG demonstrates normal sinus rhythm at 65 sp3 bpm with normal intervals, normal axis, diffuse nonspecific diffuse ST/T changes without evidence of acute ischemia. Lots of artifact on this EKG but I do not believe it represents any acute ischemia at this time. Vital Signs: 03:26 BP 118 / 49; Pulse 87; Resp 19; Temp 98.3; Pulse Ox 100% on Non-rebreather mask; Weight jj7 136.98 kg; Height 5 ft. 9 in. ; Pain 7/10; 03:50 BP 125 / 78; Pulse 68; Resp 23 S; Pulse Ox 96% on 4 lpm NC; lg3 06:12 BP 117 / 53; Pulse 67; Resp 21; Pulse Ox 99% on 35 lpm BiPAP; lg3 03:26 Body Mass Index 44.60 (136.98 kg, 175.26 cm) [facility] 03:26 Pain Scale: Adult jj7 MDM: 03:32 Data reviewed: vital signs, nurses notes, EMS record, senior living records, lab test sp3 result(s), EKG, radiologic studies. ED course: 62-year-old female with extensive CHF and COPD history along with other past medical history noted above now presents again for dyspnea, chest pain, right lower extremity swelling. Differential diagnosis includes congestive heart failure, COPD, acute coronary syndrome, pulmonary embolism, DVT, sepsis, shock, pneumonia, among others. Patient most likely has a combination of COPD and CHF exacerbation and we will treat once laboratory values are reviewed and chest x-ray is also reviewed. EKG is pending will be reviewed immediately after this performed. Given the complexity and recurrent nature of her symptoms, patient will most likely be admitted for appropriate therapy and intervention.. 04:35 Patient medically screened. sp3 03/12 03:28 Order name: Basic Metabolic Panel; Complete Time: 04:45 sp3 03/12 03:28 Order name: CBC with Diff; Complete Time: 04:26 sp3 03/12 03:28 Order name: LFT's; Complete Time: 04:45 sp3 03/12 03:28 Order name: Magnesium; Complete Time: 04:45 sp3 03/12 03:28 Order name: NT PRO-BNP; Complete Time: 04:45 sp3 03/12 03:28 Order name: PT-INR; Complete Time: 04:26 sp3 03/12 03:28 Order name: Troponin HS; Complete Time: 04:45 sp3 03/12 05:41 Order name: ABG la1 03/12 10:30 Order name: ABG Arterial Blood Gas EDMS 03/12 13:16 Order name: Troponin High Sensitivity EDMS 03/12 03:28 Order name: XRAY Chest (1 view) sp3 03/12 03:28 Order name: CT Chest For PE Angio sp3 03/12 03:28 Order name: US Extremity Venous Unilateral Ltd sp3 03/12 05:41 Order name: BIPAP la1 03/12 03:28 Order name: EKG; Complete Time: 03:29 sp3 03/12 03:28 Order name: Cardiac monitoring; Complete Time: 03:58 sp3 03/12 03:28 Order name: EKG - Nurse/Tech; Complete Time: 04:01 sp3 03/12 03:28 Order name: IV Saline Lock; Complete Time: 04:06 sp3 03/12 03:28 Order name: Labs collected and sent; Complete Time: 04:06 sp3 03/12 03:28 Order name: O2 Per Protocol; Complete Time: 03:58 sp3 03/12 03:28 Order name: O2 Sat Monitoring; Complete Time: 03:58 sp3 Administered Medications: 06:22 Drug: MethylPrednisoLONE IVP 125 mg Route: IVP; Site: right antecubital; lg3 07:12 Follow up: Response: No adverse reaction bp 06:23 Drug: Magnesium Sulfate IVPB 2 grams Route: IVPB; Infused Over: 2 hrs; Site: right lg3 antecubital; 07:12 Follow up: IV Status: Completed infusion bp 06:30 Drug: DuoNeb Nebulize (2.5 mg - 0.5 mg) 3 ml Route: Nebulizer; bp 07:14 Follow up: Response: No adverse reaction bp Disposition Summary: 03/12/23 04:35 Hospitalization Ordered Hospitalization Status: Inpatient Admission sp3 Provider: Tarun Amaro spLee Condition: Stable sp3 Problem: an acute exacerbation sp3 Symptoms: have worsened sp3 Bed/Room Type: Standard sp3 Location: Intensive Care Unit(03/12/23 12:48) bd Room Assignment: 8-(03/12/23 12:48) bd Diagnosis - CHF, COPD, shortness of breath, hypoxia sp3 Forms: - Medication Reconciliation Form sp3 - SBAR form sp3 Signatures: Dispatcher [employer] [facility] Maryanne Guerra Martha, RN RN Rishi Holt, PSYCHIATRIC NURSE-C PSY[facility]IATRIC NUR[facility] Haley RN RN bp Yessica Cerna, DULCE RN lg3 Kaila Howard MD MD sp3 Marcos Villegas RN RN jj7 Corrections: (The following items were deleted from the chart) 06:06 04:35 sp3 mw 06:29 04:35 Telemetry/MedSurg (Inpatient) sp3 mw 06:29 06:06 408 mw mw 06:30 06:29 mw mw 12:48 06:29 [facility] ER HOLD mw bd 12:48 06:30 ERHOLD- mw bd
[2023-03-12 04:37] LABS: Albumin 3.1 g/dL (3.4-5.0); Bilirubin Direct 0.1 mg/dL (0-0.2); Bilirubin Indirect, Calculated 0.3 mg/dL (0.2-0.8); Bilirubin Total 0.4 mg/dL (0.2-1.0); Magnesium 2.1 mg/dL (1.6-2.4); Potassium 4.4 mEq/L (3.5-5.1); Protein, Total 6.6 g/dL (6.4-8.2); Troponin High Sensitivity 14.8 pg/mL (<58.9)
[2023-03-12 05:53] LABS: Arterial Blood Carboxyhemoglob 1.2 % (0-1.5); Blood Gas Oxyhemoglobin 96.1 % (94-97); Blood O2 Saturation 98.5 % (92-98.5)
[2023-03-12] MEDS ORDERED: IPRATROPIUM BROM 0.5MG/2.5ML ONE (05:58)
[2023-03-12] MEDS ORDERED: ALBUTEROL 2.5 MG/3 ML NEB SOL ONE (05:58)
[2023-03-12] MEDS ORDERED: MAGNESIUM SULFATE 1 gm IVPB 2 GM/200 ML BAG IV ONE (06:00)
[2023-03-12] MEDS ORDERED: METHYLPREDNISOLONE 125 MG INJ ONE (06:01)
--- NOTE | 2023-03-12 06:13 | P.HP ---
Certification for Inpatient Patient admitted to: Inpatient With expected LOS: >2 Midnights Patient will require the following post-hospital care: None Practitioner: I am a practitioner with admitting privileges, knowledge of patient current condition, hospital course, and medical plan of care. Services: Services provided to patient in accordance with Admission requirements found in Title 42 Section 412.3 of the Code of Federal Regulations <JonathonRishi Gonzalez - Last Filed: 03/12/23 06:09> Patient History Date of Service: 03/12/23 Reason for admission: Hypercapnic respiratory failure History of Present Illness: 62-year-old female with history of chronic hypercapnic respiratory failure, COPD, pulmonary hypertension, chronic atrial fibrillation, dyslipidemia, hypothyroidism, GERD, BPD, hypertension presents to the emergency department chief complaint of chest pain, shortness of breath. History is limited as patient is currently lethargic with hypercapnic respiratory failure being placed on BiPAP. She is evaluated in the emergency department her labs were significant for pH of 7.15 PCO2 104 PO2 166 HCO3 34.6, glucose [address] PE protocol currently pending to rule out pulmonary embolism. Patient placed on BiPAP for hypercapnic respiratory failure, given her drowsiness will need to be monitored in ICU for now. - Past Medical/Surgical History Diabetic: No -: Severe COPD, home oxygen/NIV,Pulmonary-Dr. Do -: Mild pulmonary hypertension -: Hypothyroidism -: Bipolar disorder -: Hypertension -: Chronic low back pain -: Obstructive sleep apnea -: GERD -: HLD -: GERD -: Appendectomy -: Psychosocial/ Personal History: She lives with a partner. She has 1 child. She is currently disabled. - Family History Father -: Heart disease, Hypertension, Diabetes Notes: from CHF Mother -: Heart disease, Hypertension, Diabetes Notes: from CHF Brother -: Diabetes Sister -: Heart disease, Diabetes Notes: from CHF - Social History Alcohol use: No CD- Drugs: No Caffeine use: No Place of Residence: Home <Rishi Holt - Last Filed: 03/12/23 06:09> Date of Service: 03/12/23 <Tarun Amaro - Last Filed: 03/12/23 11:18> Allergies No Known Allergies Allergy (Verified 10/19/22 22:27) Home Medications: RX: Apixaban [Eliquis] 5 mg PO BID 10/19/22 RX: Atorvastatin Calcium 20 mg PO BEDTIME 10/19/22 RX: Gabapentin 300 mg PO TID 10/19/22 RX: Levothyroxine [Synthroid*] 88 mcg PO [id number] 10/19/22 RX: Roflumilast [Daliresp] 500 mcg PO DAILY 10/19/22 RX: Ropinirole HCl 1 tab PO BEDTIME 10/19/22 RX: acetaZOLAMIDE [Acetazolamide] 250 mg PO DAILY 10/19/22 RX: clonazePAM [Clonazepam] 0.5 mg PO DAILY PRN 10/19/22 RX: Pantoprazole [Protonix Tab*] 40 mg PO DAILYAC #30 tab 12/13/22 RX: Spironolactone [Aldactone*] 25 mg PO BID #60 tab 12/13/22 RX: predniSONE [Deltasone*] 10 mg PO DAILY #30 tab 12/13/22 RX: Lidocaine 4% Patch [Lidoderm 5% Patch*] 1 patch TD DAILY 01/24/23 RX: Tizanidine HCl [Zanaflex] 2 mg PO TID PRN 01/24/23 RX: Furosemide [Lasix*] 40 mg PO DAILY #7 tab 01/26/23 RX: predniSONE [Deltasone*] 10 mg PO BID #10 tab 01/26/23 Review of Systems 10-point ROS is otherwise unremarkable Respiratory: Shortness of Breath Cardiovascular: Chest Pain <AttemRishi kwan Carlos - Last Filed: 03/12/23 06:09> Physical Examination - Physical Exam General: In no apparent distress, Obese, Other (Lethargic, oriented x1) HEENT: Atraumatic, PERRLA, Mucous membr. moist/pink, EOMI, Sclerae nonicteric Neck: Supple, 2+ carotid pulse no bruit, No LAD, Without JVD or thyroid abnormality Respiratory: Diminished, Expiratory wheezes Cardiovascular: Regular rate/rhythm, Normal S1 S2 Capillary refill: <2 Seconds Gastrointestinal: Normal bowel sounds, No tenderness Musculoskeletal: No tenderness Integumentary: No rashes Neurological: Normal speech, Normal strength at 5/5 x4 extr, Normal tone, Normal affect - Studies Laboratory Data (last 24 hrs) 03/12/23 04:04: PT 12.7 H, INR 1.15 06/21/23 04:04: WBC 6.50, Hgb 10.9 L, Hct 35.8 L, Plt Count 150 L 03/12/23 04:04: Sodium 137, Potassium 4.4, BUN 10, Creatinine 0.77, Glucose 153 H, Magnesium 2.1, Total Bilirubin 0.4, AST 13 L, ALT 15, Alkaline Phosphatase 91 <Rishi Holt - Last Filed: 03/12/23 06:09> - Studies Laboratory Data (last 24 hrs) 03/12/23 04:04: PT 12.7 H, INR 1.15 03/12/23 04:04: WBC 6.50, Hgb 10.9 L, Hct 35.8 L, Plt Count 150 L 03/12/23 04:04: Sodium 137, Potassium 4.4, BUN 10, Creatinine 0.77, Glucose 153 H, Magnesium 2.1, Total Bilirubin 0.4, AST 13 L, ALT 15, Alkaline Phosphatase 91 <Tarun Amaro - Last Filed: 03/12/23 11:18> Assessment and Plan - Plan Assessment: Acute on chronic hypercapnic respiratory failure secondary to COPD with exacerbation-on home O2 with home NIV/steroids Pulmonary hypertension Atrial fibrillation on chronic anticoagulation Chronic diastolic congestive heart failure Dyslipidemia Hypothyroidism GERD BPD Hypertension Plan: Acute on chronic hypercapnic respiratory failure secondary to COPD with exacerbation-on home O2 with home NIV/steroids Pulmonary hypertension Continue BiPAP, steroids, as needed nebulizer treatments, continuous pulse ox, pulmonology consult. Repeat ABG later this morning. Follow-up CT PE protocol. Atrial fibrillation on chronic anticoagulation Continue Eliquis, other home medications. Monitor on telemetry. We will trend troponins given complaint of chest pain on arrival. Chronic diastolic congestive heart failure Continue acetazolamide, monitor on telemetry, trend troponins. Dyslipidemia Hypothyroidism GERD BPD Hypertension Continue home medications. DVT PPX: Continue Eliquis Code status: Full Discharge Plan: Home Plan to discharge in: Greater than 2 days - Advance Directives Does patient have a Living Will: No Does patient have a Durable POA for Healthcare: No - Code Status/Comfort Care Code Status Assessed: Yes (Full code) Critical Care: No Time Spent Managing Pts Care (In Minutes): 70 <Rishi Holt - Last Filed: 03/12/23 06:09> Physician Review: Patient Assessed, Agree with Above Assessment and Plan <Tarun Amaro - Last Filed: 03/12/23 11:18>
[2023-03-12] MEDS ORDERED: ALBUTEROL 2.5 MG/3 ML NEB SOL NEB PRN (07:32)
[2023-03-12] MEDS: LEVOTHYROXINE SOD 0.088 MG TAB PO SCH (07:32)
[2023-03-12] MEDS ORDERED: IPRATROPIUM BROM 0.5MG/2.5ML NEB PRN (07:32)
[2023-03-12] MEDS: ROFLUMILAST 500 MCG TABLET PO SCH (09:00)
[2023-03-12] MEDS: SPIRONOLACTONE 25 MG TABLET PO SCH ×2 (09:00→19:55)
[2023-03-12] MEDS: acetaZOLAMIDE 250 MG TAB PO SCH (09:00)
[2023-03-12] MEDS: APIXABAN 5 MG TABLET PO SCH ×2 (09:00→19:55)
[2023-03-12] MEDS: dexAMETHasone 10 MG/ML VIAL IV SCH ×2 (09:00→19:55)
[2023-03-12] MEDS: GABAPENTIN 300 MG CAP PO SCH ×3 (09:00→19:56)
[2023-03-12 10:29] LABS: Arterial Blood Carboxyhemoglob 1.5 % (0-1.5); Blood Gas Oxyhemoglobin 87.3 % (94-97); Blood O2 Saturation 89.7 % (92-98.5)
[2023-03-12] MEDS ORDERED: GABAPENTIN 300 MG CAP ONE (11:17)
[2023-03-12] MEDS ORDERED: acetaZOLAMIDE 250 MG TAB ONE (11:17)
[2023-03-12] MEDS ORDERED: APIXABAN 5 MG TABLET ONE (11:17)
[2023-03-12] MEDS ORDERED: dexAMETHasone 10 MG/ML VIAL ONE (11:17)
[2023-03-12] MEDS ORDERED: SPIRONOLACTONE 25 MG TABLET ONE (11:20)
[2023-03-12] MEDS: FUROSEMIDE 40 MG/4 ML VIAL IV SCH ×2 (12:00→16:56)
--- NOTE | 2023-03-12 14:08 | RAD REPORT ---
EXAM DESCRIPTION: Chest Single View CLINICAL HISTORY: CHEST PAIN TECHNIQUE: AP chest COMPARISON: January 24 FINDINGS: CHEST: Cardiac silhouette is enlarged. There is increasing central vascular congestion and interstitial prominence suspicious for congestive failure and interstitial pulmonary edema. Evaluation limited by technique and patient's large body habitus. No airspace consolidation or pleural effusions. Clinical correlation and follow-up recommended. IMPRESSION: 1. Cardiomegaly with increasing central vascular congestion and interstitial prominenc e suspicious for congestive failure and interstitial pulmonary edema. 2. Evaluation limited by technique and patient's large body habitus. Electronically signed by: Jomar Young MD 03/12/2023 5:06 AM CDT Due to temporary technical issues with the PACS/Fluency reporting system, reports are being signed by the in house radiologists without review as a courtesy to insure prompt reporting. The interpreting radiologist is fully responsible for the content of the report.
--- NOTE | 2023-03-12 14:14 | RAD REPORT ---
EXAM DESCRIPTION: Ultrasound Lower Extremity Venous Doppler COMPARISON: None. CLINICAL HISTORY: [facility] MAIN SWELLING Extremity Venous [employer] TECHNIQUE: Multiple grayscale, color, and spectral Doppler images of the right lower extremity veins were obtained. FINDINGS: Right: The common femoral, greater saphenous, superficial femoral, popliteal, posterior tibial, and peroneal veins demonstrate normal flow, augmentation, and compressibility. IMPRESSION: No evidence of deep vein thrombosis. Electronically signed by: Mainor Douglas MD 03/12/2023 5:09 AM CDT Due to temporary technical issues with the PACS/Fluency reporting system, reports are being signed by the in house radiologists without review as a courtesy to insure prompt reporting. The interpreting radiologist is fully responsible for the content of the report.
--- NOTE | 2023-03-12 15:11 | RAD REPORT ---
EXAM DESCRIPTION: CT Angiography Chest With Intravenous Contrast CLINICAL HISTORY: The patient is 62 years old and is Female; CHEST PAIN [facility] MAIN TECHNIQUE: Axial computed tomographic angiography images of the chest with intravenous contrast. S agittal and coronal reformatted images were created and reviewed. This CT exam was performed using one or more of the following dose reduction techniques: automated exposure control, adjustment of t he mA and/or kV according to patient size, and/or use of iterative reconstruction technique. MIP reconstructed images were created and reviewed. COMPARISON: 12/11/2022 CT chest without contrast FINDINGS: PULMONARY ARTERIES: Evaluation for pulmonary embolism significantly degraded secondary t o severe bilateral respiratory motion artifact. Allowing for this, no central pulmonary embolism is d efinitively seen. Ectatic main pulmonary artery, suggesting pulmonary hypertension. AORTA: No acute findings. No thoracic aortic aneurysm. GREAT VESSELS OF AORTIC ARCH: Aberrant right subclavian artery. LUNGS: Expiratory lung volumes. Progressive bandlike atelectasis in the lingula, with redemonstrated bandlike atelectasis pankaj siva scarring in the right lower lobe. Otherwise, no new focal consolidation. PLEURAL SPACE: Unremarkable. No significant effusion. No pneumothorax. HEART: Multivessel coronary artery calcifications. No significant pericardial effusion. No evidence of RV dysfunction. BONES/JOINTS: No acute fracture. No dislocation. SOFT TISSUES: Unremarkable. LYMPH NODES: Unremarkable. No enlarged lymph nodes. GALLBLADDER AND BILE DUCTS: Small stone noted in the gallbladder neck. IMPRESSION: 1. Evaluation for pulmonary embolism significantly degraded secondary to severe bilate ral respiratory motion artifact. Allowing for this, no central pulmonary embolism is definitively see n. If there is a high clinical suspicion for pulmonary embolism, consider further characterization by VQ scan. 2. Progressive bandlike atelectasis in the lingula, with redemonstrated bandlike atelectasis versus scarring in the right lower lobe. Otherwise, no new focal consolidation, no acute cardiopulmonary ab normality. 3. Small stone noted in the gallbladder neck. 4. Ectatic main pulmonary artery, suggesting pulmonary hypertension. 5. Multivessel coronary artery calcifications. Electronically signed by: Rodrigue Hill MD 03/12/2023 6:10 AM CDT Due to temporary technical issues with the PACS/Fluency reporting system, reports are being signed by the in house radiologists without review as a courtesy to insure prompt reporting. The interpreting radiologist is fully responsible for the content of the report.
--- NOTE | 2023-03-12 19:08 | CON ---
Date of Consultation: 03/12/2023 Brief History Of Present Illness: The patient is a 62-year-old female with history of chronic hyperc apnic respiratory failure, COPD, pulmonary hypertension, chronic atrial fibrillation, dyslipidemia, h ypothyroidism, GERD, BPD, hypertension, who presents to the emergency department with chief complaint of chest pain and shortness of breath. The patient had been developing intermittent episodes of laureen bal abdominal pain and chest pain during her admission. As such, the patient had imaging, which show ed concern for cholelithiasis. As such, I am consulted for the above-stated issue. The patient stat es she has had global abdominal pain, which is intermittent. Has no exacerbating or alleviating fact ors. It is not related to food. It is not particularly localized to any area of the abdomen. There is no radiation and she has this intermittently for several years without any known causative or tri gger factors. Past Medical History: COPD, on home oxygen, mild pulmonary hypertension, hypothyroidism, bipolar dis order, hypertension, chronic low back pain, obstructive sleep apnea, GERD, hyperlipidemia. Past Surgical History: Includes appendectomy and . Family History: Significant for hypertension and diabetes in her father. Mother had heart disease, hypertension, diabetes, and from congestive heart failure. Brother and sister both had diabetes . Sister had heart disease as well and sister of congestive heart failure as well. Social History: She lives with a partner. She has 1 child. Currently disabled. The patient denies alcohol or recreational drug use. Does have a positive tobacco use history. Allergies: NO KNOWN DRUG ALLERGIES. Home Medications: Include Eliquis, atorvastatin, gabapentin, Synthroid, Daliresp, ropinirole, acetaz ginette, clonazepam, Protonix, Aldactone, Deltasone, Lidoderm patch, Zanaflex, Lasix. Review of Systems: Ten-point review of systems other than shortness of breath, chest pain and symptoms other than HPI, s he denies. Physical Examination: General: At the time of my examination; she is awake, alert, oriented. She is obese generally. Psychiatric: She is appropriate, conversive. HEENT: She is normocephalic. Sclerae anicteric. Mucous membranes moist. Oropharynx is clear. Neck: Supple without JVD. Chest: Expansion and excursion. She is on oxygen currently. Breath sounds decreased bilaterally. Abdomen: Soft, nontender, nondistended. She is obese generally. No rebound. No guarding. No foca l peritonitis. Extremities: No clubbing, cyanosis, edema. Skin: Warm and dry. Vital Signs: During my examination were a temperature 96.9, pulse is 82, respiratory rate 26, blood pressure 131/79, SpO2 90 on nasal cannula at 6 L. Laboratory Data: Revealed a white blood cell count of 6.5, hemoglobin 10.9, hematocrit 35.8, platele t count was 150. Coags showed a PT 12.7, INR 1.15. Her chemistry showed a sodium of 137, potassium 4.4, chloride 102, carbon dioxide of 34, BUN 10, creatinine 0.77, glucose is 153, calcium 8.4, magnes ium 2.1, total bilirubin 0.4, direct component 0.1, indirect component 0.3, AST 13, ALT 15, alkaline phosphatase 91. Troponin was 14.8 on high sensitivity, 3 checks were in similar range in the teens. ProBNP 520. She had imaging included a CTA chest and thorax, which was officially read on 03/12 as evaluation for pulmonary embolism significantly degraded secondary to severe bilateral respiratory mo tion artifact allowing no central pulmonary embolus is definitively seen. Progressive bandlike atele ctasis in the lingula, which re-demonstrated bandlike atelectasis versus scarring in the right upper lobe. No new focal consolidation, acute cardiopulmonary abnormality. Small stone noted in the gallb ladder neck, ectatic, and main pulmonary artery suggesting pulmonary hypertension, multivessel guerrero ry artery calcifications. Assessment And Plan: This is a 62-year-old female, who comes in with respiratory issues as described above. 1.Continue medical management for her multiple issues including respiratory primarily and cardiovasc ular evaluation per primary team. 2.The patient only has gallstone evident on CT imaging, which I do not find any evidence of cholecys titis based on the imaging. As such, I recommend continue medical management. I do not currently se e an indication for surgical intervention and the patient would be a poor surgical candidate should s he develop issues related to her biliary system. As such, I will follow along with you and the patie nt can follow up with me when she has been medically optimized from a surgical standpoint should she need further workup of her biliary system. I have explained the risks, benefits, and alternatives of the above stated plan. The patient agrees to proceed as indicated. Thank you for this interesting consult. YURI/JENI Voice ID: [id number] Report ID: [id number]
[2023-03-12] MEDS: ATORVASTATIN 20 MG TAB PO SCH (19:56)
[2023-03-12] MEDS: ROPINIROLE HCL 1 MG TAB PO SCH (19:56)
[2023-03-13 05:11] LABS: Absolute Lymphocytes (CBC) 0.6 K/uL (0.7-4.9); Hematocrit 32.9 % (36.0-45.0); Lymphocytes % 11.7 % (15.3-44.8); MCV 81.8 fL (80-100); MPV 7.8 fL (7.6-11.3); RBC Red Blood Cell Count 4.03 M/uL (3.86-4.86)
[2023-03-13 05:32] LABS: Potassium 4.3 mEq/L (3.5-5.1)
[2023-03-13] MEDS: LEVOTHYROXINE SOD 0.088 MG TAB PO SCH (05:52)
[2023-03-13] MEDS: ROFLUMILAST 500 MCG TABLET PO SCH (08:04)
[2023-03-13] MEDS: SPIRONOLACTONE 25 MG TABLET PO SCH ×2 (08:04→20:34)
[2023-03-13] MEDS: GABAPENTIN 300 MG CAP PO SCH ×3 (08:04→20:34)
[2023-03-13] MEDS: FUROSEMIDE 40 MG/4 ML VIAL IV SCH ×2 (08:04→18:21)
[2023-03-13] MEDS: acetaZOLAMIDE 250 MG TAB PO SCH (08:04)
[2023-03-13] MEDS: dexAMETHasone 10 MG/ML VIAL IV SCH ×2 (08:05→20:34)
[2023-03-13] MEDS: APIXABAN 5 MG TABLET PO SCH ×2 (08:35→20:37)
--- NOTE | 2023-03-13 11:00 | P.PN ---
Subjective Date of Service: 03/13/23 Chief Complaint: Hypercapnic respiratory failure Overnight, her symptoms have improved significantly. She has been weaned off of BiPAP support. She states that her shortness of breath is mildly improved. We had an extensive goals of care discussion this morning regarding continued agg ressive diseasedirected care versus comfort/symptomdirected care (i.e. hospice services). She understands that her COPD is quite advanced and likely terminal. She states that she is interested in learning more about hospice services. CM consulted. Review of Systems 10-point ROS is otherwise unremarkable Respiratory: Shortness of Breath Physical Examination - Vital Signs Temperature: 98 F Blood Pressure: 129/75 Pulse: 71 Respirations: 26 Pulse Ox (%): 90 - Physical Exam General: Alert, In no apparent distress, Oriented x3 HEENT: Atraumatic, Sclerae nonicteric Neck: JVD not distended Respiratory: Diminished, Crackles/rales (bibasilar), Expiratory wheezes Cardiovascular: Regular rate/rhythm, Normal S1 S2, No gallops, No rubs, No murmurs, Edema (trace-1+ BLE) Gastrointestinal: Normal bowel sounds, Soft and benign, Non-distended, No tenderness, No rebound, No guarding Musculoskeletal: No clubbing Integumentary: No rashes Neurological: Normal speech, Normal affect Assessment And Plan - Plan # Acute on Chronic Hypercapnic Respiratory Failure - likely secondary to a Chronic Obstructive Pulmonary Disease Exacerbation # Pulmonary Hypertension # Obstructive Sleep Apnea # Morbid Obesity - BMI 44.5 kg/m2 - Evaluation thus far: - Initial ABG = pH 7.15, PCO2 104.0 PO2 166.0 - on BiPAP - Chest x-ray = "1. Cardiomegaly with increasing central vascular congestion and interstitial prominence suspicious for congestive failure and interstitial pulmonary edema. 2. Evaluation limited by technique and patient's large body habitus." - CT chest angiogram = "1. Evaluation for pulmonary embolism significantly degraded secondary to severe bilateral respiratory motion artifact. Allowing for this, no central pulmonary embolism is definitively seen. If there is a high clinical suspicion for pulmonary embolism, consider further characterization by VQ scan. 2. Progressive bandlike atelectasis in the lingula, with redemonstrated bandlike atelectasis versus scarring in the right lower lobe. Otherwise, no new focal consolidation, no acute cardiopulmonary abnormality. 3. Small stone noted in the gallbladder neck. 4. Ectatic main pulmonary artery, suggesting pulmonary hypertension. 5. Multivessel coronary artery calcifications." - Management plan: - Consulted Pulmonary Medicine - recommendations appreciated - Bronchodilators and steroids per Pulm - Continue home roflumilast, spironolactone, acetazolamide - Started furosemide due to pulmonary edema with severe pulmonary hypertension - monitor I/O - Consulted Respiratory Therapy - Supplemental oxygen to maintain SpO2 > 92% - Currently weaned off of BiPAP support - Encouraged incentive spirometry - Had an extensive goals of care discussion with her and explained that her COPD is advanced. We discussed the difference between continued aggressive disease-directed therapy versus symptom-directed/hospice care. She states that she is interested in learning more about hospice. CM consulted. # Chronic Atrial Fibrillation - Rate-controlled without medication - Continue home apixaban # Dyslipidemia - Continue home atorvastatin # Hypothyroidism - Continue home levothyroxine # Chronic Low Back Pain with RLS? - Continue home gabapentin, ropinirole # Gastroesophageal Reflux Disease - Continue home pantoprazole # Bipolar Disorder # Hypertension - Continue home clonazepam to avoid benzodiazepine withdrawal # Cholelithiasis - Noted on CT scan. She denies any symptoms. - General Surgery consulted and spoke with Dr. Valencia - recommendations appreciated Tarun Amaro M.D.
[2023-03-13] MEDS ORDERED: PHENOL 1.4% ORAL SPRAY 180ML MM PRN (11:15)
[2023-03-13] MEDS: ACETAMINOPHEN 325 MG TABLET PO PRN (11:31)
[2023-03-13] MEDS: clonazePAM 0.5 MG TAB PO PRN (13:36)
--- NOTE | 2023-03-13 17:45 | EKG ---
Test Date: 2023-03-12 Test Time: 03:58:49 Chrome Cleaner: MEASUREMENT RESULTS: Intervals: Rate: 65 IN: 188 QRSD: 88 QT: 416 QTc: 432 [place]: P: -2 IN: 188 QRS: 63 T: 57 INTERPRETIVE STATEMENTS: Sinus rhythm with premature supraventricular complexes Low voltage QRS Borderline ECG Compared to ECG 01/24/2023 00:18:01 Low QRS voltage now present Electronically Signed On 03-13-23 17:40:18 CDT by Maykel Posey
[2023-03-13] MEDS: IPRATROPIUM BROM 0.5MG/2.5ML NEB PRN (20:10)
[2023-03-13] MEDS: ALBUTEROL 2.5 MG/3 ML NEB SOL NEB PRN (20:10)
[2023-03-13] MEDS: ROPINIROLE HCL 1 MG TAB PO SCH (20:34)
[2023-03-13] MEDS: ATORVASTATIN 20 MG TAB PO SCH (20:37)
[2023-03-14] MEDS: LEVOTHYROXINE SOD 0.088 MG TAB PO SCH (05:15)
[2023-03-14] MEDS: PANTOPRAZOLE 40MG TABLET PO SCH (05:15)
[2023-03-14] MEDS: IPRATROPIUM BROM 0.5MG/2.5ML NEB PRN (05:20)
[2023-03-14] MEDS: ALBUTEROL 2.5 MG/3 ML NEB SOL NEB PRN (05:20)
[2023-03-14 05:31] LABS: Potassium 4.1 mEq/L (3.5-5.1)
[2023-03-14] MEDS: GABAPENTIN 300 MG CAP PO SCH ×3 (08:25→21:13)
[2023-03-14] MEDS: acetaZOLAMIDE 250 MG TAB PO SCH (08:25)
[2023-03-14] MEDS: ACETAMINOPHEN 325 MG TABLET PO PRN (08:25)
[2023-03-14] MEDS: APIXABAN 5 MG TABLET PO SCH ×2 (08:25→21:11)
[2023-03-14] MEDS: dexAMETHasone 10 MG/ML VIAL IV SCH ×2 (08:26→21:10)
[2023-03-14] MEDS: FUROSEMIDE 40 MG/4 ML VIAL IV SCH ×2 (08:26→16:41)
[2023-03-14] MEDS: ROFLUMILAST 500 MCG TABLET PO SCH (08:28)
[2023-03-14] MEDS: SPIRONOLACTONE 25 MG TABLET PO SCH ×2 (08:28→21:11)
[2023-03-14] MEDS: clonazePAM 0.5 MG TAB PO PRN (10:12)
[2023-03-14] MEDS: ALBUTEROL 2.5 MG/3 ML NEB SOL NEB SCH ×3 (11:20→19:30)
[2023-03-14] MEDS: IPRATROPIUM BROM 0.5MG/2.5ML NEB SCH ×3 (11:20→19:30)
--- NOTE | 2023-03-14 16:52 | P.PN ---
Subjective Date of Service: 03/14/23 Chief Complaint: Hypercapnic respiratory failure Her breathing continues to improve. She states that, after further consideration, she is not interested in hospice services. She remains on nasal cannula. She feels that the breathing treatments are helping her symptoms significantly. Awaiting Pulmonology recommendations regarding disposition. She denies chest pain or palpitations. Review of Systems 10-point ROS is otherwise unremarkable Respiratory: Cough, Shortness of Breath Physical Examination - Vital Signs Temperature: 97.3 F Blood Pressure: 137/70 Pulse: 76 Respirations: 23 Pulse Ox (%): 96 Assessment And Plan - Plan - Physical Exam General: Alert, In no apparent distress, Oriented x3 HEENT: Atraumatic, Sclerae nonicteric Neck: JVD not distended Respiratory: Diminished, Crackles/rales (faint bibasilar), Faint expiratory wheezes Cardiovascular: Regular rate/rhythm, No murmurs, Edema (trace BLE) Gastrointestinal: Normal bowel sounds, Soft, Non-distended, No tenderness Musculoskeletal: No clubbing Integumentary: No rashes Neurological: Normal speech, Normal affect # Acute on Chronic Hypercapnic Respiratory Failure - likely secondary to a Chronic Obstructive Pulmonary Disease Exacerbation # Pulmonary Hypertension # Obstructive Sleep Apnea # Morbid Obesity - BMI 44.5 kg/m2 - Evaluation thus far: - Initial ABG = pH 7.15, PCO2 104.0 PO2 166.0 - on BiPAP - Chest x-ray = "1. Cardiomegaly with increasing central vascular congestion and interstitial prominence suspicious for congestive failure and interstitial pulmonary edema. 2. Evaluation limited by technique and patient's large body habitus." - CT chest angiogram = "1. Evaluation for pulmonary embolism significantly degraded secondary to severe bilateral respiratory motion artifact. Allowing for this, no central pulmonary embolism is definitively seen. If there is a high clinical suspicion for pulmonary embolism, consider further characterization by VQ scan. 2. Progressive bandlike atelectasis in the lingula, with redemonstrated bandlike atelectasis versus scarring in the right lower lobe. Otherwise, no new focal consolidation, no acute cardiopulmonary abnormality. 3. Small stone noted in the gallbladder neck. 4. Ectatic main pulmonary artery, suggesting pulmonary hypertension. 5. Multivessel coronary artery calcifications." - Management plan: - Consulted Pulmonary Medicine and notification sent to Dr. Do - recommendations appreciated - Bronchodilators and steroids per Pulm - Continue home roflumilast, spironolactone, acetazolamide - Started furosemide due to pulmonary edema with severe pulmonary hypertension - monitor I/O - Consulted Respiratory Therapy - Supplemental oxygen to maintain SpO2 > 92% - Currently weaned off of BiPAP support - Encouraged incentive spirometry - Had an extensive goals of care discussion with her and explained that her COPD is advanced. We discussed the difference between continued aggressive disease-directed therapy versus symptom-directed/hospice care. She states that she is not interested in hospice at this time. # Chronic Atrial Fibrillation - Rate-controlled without medication - Continue home apixaban # Dyslipidemia - Continue home atorvastatin # Hypothyroidism - Continue home levothyroxine # Chronic Low Back Pain with RLS? - Continue home gabapentin, ropinirole # Gastroesophageal Reflux Disease - Continue home pantoprazole # Bipolar Disorder # Hypertension - Continue home clonazepam to avoid benzodiazepine withdrawal # Cholelithiasis - Noted on CT scan. She denies any symptoms. - General Surgery consulted and spoke with Dr. Valencia - recommendations appreciated Tarun Amaro M.D.
[2023-03-14] MEDS: ATORVASTATIN 20 MG TAB PO SCH (21:10)
[2023-03-14] MEDS: ROPINIROLE HCL 1 MG TAB PO SCH (21:13)
[2023-03-15] MEDS: ALBUTEROL 2.5 MG/3 ML NEB SOL NEB SCH ×4 (01:20→19:55)
[2023-03-15] MEDS: IPRATROPIUM BROM 0.5MG/2.5ML NEB SCH ×4 (01:20→19:55)
[2023-03-15 05:16] LABS: Potassium 4.2 mEq/L (3.5-5.1)
[2023-03-15] MEDS: PANTOPRAZOLE 40MG TABLET PO SCH (05:42)
[2023-03-15] MEDS: LEVOTHYROXINE SOD 0.088 MG TAB PO SCH (05:42)
[2023-03-15] MEDS: SPIRONOLACTONE 25 MG TABLET PO SCH ×2 (08:52→21:13)
[2023-03-15] MEDS: FUROSEMIDE 40 MG/4 ML VIAL IV SCH (08:53)
[2023-03-15] MEDS: dexAMETHasone 10 MG/ML VIAL IV SCH (08:53)
[2023-03-15] MEDS: ROFLUMILAST 500 MCG TABLET PO SCH (08:54)
[2023-03-15] MEDS: acetaZOLAMIDE 250 MG TAB PO SCH (08:54)
[2023-03-15] MEDS: APIXABAN 5 MG TABLET PO SCH ×2 (08:54→21:10)
[2023-03-15] MEDS: GABAPENTIN 300 MG CAP PO SCH ×3 (08:54→21:10)
--- NOTE | 2023-03-15 09:57 | P.CNS ---
Date of Consult: 03/15/23 Reason for Consult: Respiratory failure swelling of the right leg Chief Complaint: Hypercapnic respiratory failure History of Present Illness: Johann is 62 years of age morbidly obese hypoxic hypercapnic respiratory failure recurrent hospital admissions came in short of breath swelling of the right leg denies any fever or chills patient has not changed since admission compliant with her medication Allergies No Known Allergies Allergy (Verified 10/19/22 22:27) Home Medications: Apixaban [Eliquis] 5 mg PO BID 10/19/22 Atorvastatin Calcium 20 mg PO BEDTIME 10/19/22 Gabapentin 300 mg PO TID 10/19/22 Levothyroxine [Synthroid*] 88 mcg PO [id number] 10/19/22 Roflumilast [Daliresp] 500 mcg PO DAILY 10/19/22 Ropinirole HCl 1 tab PO BEDTIME 10/19/22 acetaZOLAMIDE [Acetazolamide] 250 mg PO DAILY 10/19/22 clonazePAM [Clonazepam] 0.5 mg PO DAILY PRN 10/19/22 Pantoprazole [Protonix Tab*] 40 mg PO DAILYAC #30 tab 12/13/22 Spironolactone [Aldactone*] 25 mg PO BID #60 tab 12/13/22 predniSONE [Deltasone*] 10 mg PO DAILY #30 tab 12/13/22 Lidocaine 4% Patch [Lidoderm 5% Patch*] 1 patch TD DAILY 01/24/23 Tizanidine HCl [Zanaflex] 2 mg PO TID PRN 01/24/23 Furosemide [Lasix*] 40 mg PO DAILY #7 tab 01/26/23 - Past Medical/Surgical History Diabetic: No -: Severe COPD, home oxygen/NIV,Pulmonary-Dr. Do -: Mild pulmonary hypertension -: Hypothyroidism -: Bipolar disorder -: Hypertension -: Chronic low back pain -: Obstructive sleep apnea -: GERD -: HLD -: GERD -: Appendectomy -: Psychosocial/ Personal History: She lives with a partner. She has 1 child. She is currently disabled. - Family History Father Medical History: Heart disease, Hypertension, Diabetes Notes: from CHF Mother Medical History: Heart disease, Hypertension, Diabetes Notes: from CHF Brother Medical History: Diabetes Sister Medical History: Heart disease, Diabetes Notes: from CHF - Social History Smoking Status: Former smoker Alcohol use: No CD- Drugs: No Caffeine use: No Place of Residence: Home Review of Systems 10-point ROS is otherwise unremarkable General: Weakness Respiratory: Shortness of Breath Cardiovascular: Edema Physical Examination Temp Pulse Resp BP Pulse Ox 97.2 F 76 22 H 131/58 L 90 L 03/15/23 08:00 03/15/23 08:53 03/15/23 08:00 03/15/23 08:53 03/15/23 08:00 General: Alert, Oriented x3 Respiratory: Clear to auscultation bilaterally, Diminished, Friction rub Cardiovascular: Normal pulses, Normal S1 S2 Gastrointestinal: Normal bowel sounds, Soft and benign - Problems (1) Acute on chronic respiratory failure with hypoxia and hypercapnia Current Visit: No Status: Acute Plan: Patient is 62 years of age morbidly obese current hospital admissions with hypoxic hypercapnic respiratory failure doing better mated with the swelling of the right leg no evidence of DVT CT scan shows some atelectasis in the right lingular area history's labs all reviewed patient is mildly anemic adjusted her BiPAP change the settings to IPAP 20 EPAP 15 titrate sat to 90% patient has a small gallstone plan for discharge change to p.o. Lasix this dose of prednisone been instructed to stop drinking regular soda
--- NOTE | 2023-03-15 10:55 | P.PN ---
Subjective Date of Service: 03/15/23 Chief Complaint: Hypercapnic respiratory failure She reports that her breathing continues to improve. She was seen by Dr. Do. He is planning to adjust her BiPAP settings today. Plan to monitor her today with new BiPAP settings and possibly discharge tomorrow. She denies chest pain or palpitations. Review of Systems 10-point ROS is otherwise unremarkable Respiratory: Shortness of Breath Physical Examination - Vital Signs Temperature: 97.2 F Blood Pressure: 131/58 Pulse: 76 Respirations: 22 Pulse Ox (%): 90 Assessment And Plan - Plan - Physical Exam General: Alert, In no apparent distress, Oriented x3 HEENT: Atraumatic, Sclerae nonicteric Neck: JVD not distended Respiratory: Diminished, faint end-expiratory wheezes Cardiovascular: Regular rate/rhythm, No murmurs, Edema (trace BLE) Gastrointestinal: Soft, Non-distended, No tenderness Musculoskeletal: No clubbing Integumentary: No rashes Neurological: Normal speech, Normal affect # Acute on Chronic Hypercapnic Respiratory Failure - likely secondary to a Chronic Obstructive Pulmonary Disease Exacerbation # Pulmonary Hypertension # Obstructive Sleep Apnea # Morbid Obesity - BMI 44.5 kg/m2 - Evaluation thus far: - Initial ABG = pH 7.15, PCO2 104.0 PO2 166.0 - on BiPAP - Chest x-ray = "1. Cardiomegaly with increasing central vascular congestion and interstitial prominence suspicious for congestive failure and interstitial pulmonary edema. 2. Evaluation limited by technique and patient's large body habitus." - CT chest angiogram = "1. Evaluation for pulmonary embolism significantly degraded secondary to severe bilateral respiratory motion artifact. Allowing for this, no central pulmonary embolism is definitively seen. If there is a high clinical suspicion for pulmonary embolism, consider further characterization by VQ scan. 2. Progressive bandlike atelectasis in the lingula, with redemonstrated bandlike atelectasis versus scarring in the right lower lobe. Otherwise, no new focal consolidation, no acute cardiopulmonary abnormality. 3. Small stone noted in the gallbladder neck. 4. Ectatic main pulmonary artery, suggesting pulmonary hypertension. 5. Multivessel coronary artery calcifications." - Management plan: - Consulted Pulmonary Medicine and spoke with Dr. Do - recommendations appreciated -He adjusted her home BiPAP/NIV settings - Bronchodilators and steroids per Pulm - Continue home roflumilast, spironolactone, acetazolamide - Continue furosemide - Consulted Respiratory Therapy - Supplemental oxygen to maintain SpO2 > 92% - Encouraged incentive spirometry - Had an extensive goals of care discussion with her and explained that her COPD is advanced. We discussed the difference between continued aggressive disease-directed therapy versus symptom-directed/hospice care. She states that she is not interested in hospice at this time. # Chronic Atrial Fibrillation - Rate-controlled without medication - Continue home apixaban # Dyslipidemia - Continue home atorvastatin # Hypothyroidism - Continue home levothyroxine # Chronic Low Back Pain with RLS? - Continue home gabapentin, ropinirole # Gastroesophageal Reflux Disease - Continue home pantoprazole # Bipolar Disorder # Hypertension - Continue home clonazepam to avoid benzodiazepine withdrawal # Cholelithiasis - Noted on CT scan. She denies any symptoms. - General Surgery consulted and spoke with Dr. Valencia - recommendations appreciated Tarun Amaro M.D.
[2023-03-15] MEDS: ONDANSETRON 4 MG/2 ML VIAL IV PRN (15:59)
[2023-03-15] MEDS: ROPINIROLE HCL 1 MG TAB PO SCH (21:08)
[2023-03-15] MEDS: ATORVASTATIN 20 MG TAB PO SCH (21:10)
[2023-03-16] MEDS: ALBUTEROL 2.5 MG/3 ML NEB SOL NEB SCH ×4 (01:10→20:05)
[2023-03-16] MEDS: IPRATROPIUM BROM 0.5MG/2.5ML NEB SCH ×4 (01:10→20:05)
[2023-03-16 05:34] LABS: Potassium 4.5 mEq/L (3.5-5.1)
[2023-03-16] MEDS: PANTOPRAZOLE 40MG TABLET PO SCH (05:51)
[2023-03-16] MEDS: HYDROCODONE/APAP 5/325 MG TAB PO PRN ×3 (05:51→22:18)
[2023-03-16] MEDS: LEVOTHYROXINE SOD 0.088 MG TAB PO SCH (05:52)
[2023-03-16] MEDS: ONDANSETRON 4 MG/2 ML VIAL IV PRN ×2 (05:56→13:15)
[2023-03-16 06:10] VITALS: BMI 41.3
[2023-03-16] MEDS: predniSONE 10 MG TAB PO SCH (08:07)
[2023-03-16] MEDS: acetaZOLAMIDE 250 MG TAB PO SCH (08:07)
[2023-03-16] MEDS: SPIRONOLACTONE 25 MG TABLET PO SCH ×2 (08:07→22:17)
[2023-03-16] MEDS: APIXABAN 5 MG TABLET PO SCH ×2 (08:07→22:17)
[2023-03-16] MEDS: GABAPENTIN 300 MG CAP PO SCH ×3 (08:07→22:18)
[2023-03-16] MEDS: FUROSEMIDE 40 MG TABLET PO SCH (08:07)
[2023-03-16] MEDS: ROFLUMILAST 500 MCG TABLET PO SCH (09:37)
--- NOTE | 2023-03-16 13:04 | RAD REPORT ---
EXAM DESCRIPTION: RAD - Abdomen 1 View (KUB) - 03/16/2023 12:56 pm CLINICAL HISTORY: abdominal pain Pain COMPARISON: <Comparisons> FINDINGS: The bowel gas pattern is non-obstructive. No evidence of free air or pneumatosis. No suspi cious calcifications. No significant bony findings. IMPRESSION: Negative examination.
[2023-03-16] MEDS ORDERED: DICYCLOMINE HCL 10 MG CAP PO PRN (17:04)
--- NOTE | 2023-03-16 17:05 | P.PN ---
Subjective Date of Service: 03/16/23 Chief Complaint: Hypercapnic respiratory failure No acute events overnight. She reports persistent shortness of breath. This morning, she began to experience generalized abdominal cramping. She denies chest pain or palpitations. Review of Systems 10-point ROS is otherwise unremarkable Respiratory: Shortness of Breath Gastrointestinal: Nausea, Abdominal Pain Physical Examination - Vital Signs Temperature: 98.1 F Blood Pressure: 147/70 Pulse: 79 Respirations: 22 Pulse Ox (%): 97 Assessment And Plan - Plan - Physical Exam General: Alert, In no apparent distress, Oriented x3 HEENT: Atraumatic, Sclerae nonicteric Neck: JVD not distended Respiratory: Diminished, but clear to auscultation bilaterally Cardiovascular: Regular rate/rhythm, No murmurs, Edema (trace BLE) Gastrointestinal: Soft, Non-distended, Minimal generalized tenderness Musculoskeletal: No clubbing Integumentary: No rashes Neurological: Normal speech, Normal affect # Acute on Chronic Hypercapnic Respiratory Failure - likely secondary to a Chronic Obstructive Pulmonary Disease Exacerbation # Pulmonary Hypertension # Obstructive Sleep Apnea # Morbid Obesity - BMI 44.5 kg/m2 - Evaluation thus far: - Initial ABG = pH 7.15, PCO2 104.0 PO2 166.0 - on BiPAP - Chest x-ray = "1. Cardiomegaly with increasing central vascular congestion and interstitial prominence suspicious for congestive failure and interstitial pulmonary edema. 2. Evaluation limited by technique and patient's large body habitus." - CT chest angiogram = "1. Evaluation for pulmonary embolism significantly degraded secondary to severe bilateral respiratory motion artifact. Allowing for this, no central pulmonary embolism is definitively seen. If there is a high clinical suspicion for pulmonary embolism, consider further characterization by VQ scan. 2. Progressive bandlike atelectasis in the lingula, with redemonstrated bandlike atelectasis versus scarring in the right lower lobe. Otherwise, no new focal consolidation, no acute cardiopulmonary abnormality. 3. Small stone noted in the gallbladder neck. 4. Ectatic main pulmonary artery, suggesting pulmonary hypertension. 5. Multivessel coronary artery calcifications." - Management plan: - Consulted Pulmonary Medicine and spoke with Dr. Do - recommendations appreciated - He adjusted her home BiPAP/NIV settings - Bronchodilators and steroids per Pulm - Continue home roflumilast, spironolactone, acetazolamide - Continue furosemide - Consulted Respiratory Therapy - Supplemental oxygen to maintain SpO2 > 92% - Encouraged incentive spirometry - Had an extensive goals of care discussion with her and explained that her COPD is advanced. We discussed the difference between continued aggressive disease-directed therapy versus symptom-directed/hospice care. She states that she is not interested in hospice at this time. - Anticipate discharge in next 24-48 hours if breathing improves # Chronic Atrial Fibrillation - Rate-controlled without medication - Continue home apixaban # Dyslipidemia - Continue home atorvastatin # Hypothyroidism - Continue home levothyroxine # Chronic Low Back Pain with RLS? - Continue home gabapentin, ropinirole # Gastroesophageal Reflux Disease - Continue home pantoprazole # Bipolar Disorder # Hypertension - Continue home clonazepam to avoid benzodiazepine withdrawal # Cholelithiasis - Noted on CT scan. She denies any symptoms. - General Surgery consulted and spoke with Dr. Valencia - recommendations appreciated Tarun Amaro M.D.
[2023-03-16] MEDS: ATORVASTATIN 20 MG TAB PO SCH (22:17)
[2023-03-16] MEDS: ROPINIROLE HCL 1 MG TAB PO SCH (22:17)
[2023-03-17] MEDS: IPRATROPIUM BROM 0.5MG/2.5ML NEB SCH ×4 (01:53→20:35)
[2023-03-17] MEDS: ALBUTEROL 2.5 MG/3 ML NEB SOL NEB SCH ×4 (01:53→20:35)
[2023-03-17 05:55] LABS: Potassium 4.7 mEq/L (3.5-5.1)
[2023-03-17] MEDS: LEVOTHYROXINE SOD 0.088 MG TAB PO SCH (06:00)
[2023-03-17] MEDS: PANTOPRAZOLE 40MG TABLET PO SCH (06:17)
[2023-03-17] MEDS: predniSONE 10 MG TAB PO SCH (09:43)
[2023-03-17] MEDS: APIXABAN 5 MG TABLET PO SCH ×3 (09:44→23:27)
[2023-03-17] MEDS: GABAPENTIN 300 MG CAP PO SCH ×4 (09:44→23:27)
[2023-03-17] MEDS: SPIRONOLACTONE 25 MG TABLET PO SCH ×3 (09:44→23:27)
[2023-03-17] MEDS: acetaZOLAMIDE 250 MG TAB PO SCH (09:45)
[2023-03-17] MEDS: FUROSEMIDE 40 MG TABLET PO SCH (09:45)
[2023-03-17] MEDS: ROFLUMILAST 500 MCG TABLET PO SCH (09:45)
[2023-03-17] MEDS: HYDROCODONE/APAP 5/325 MG TAB PO PRN (10:06)
[2023-03-17] MEDS: ONDANSETRON 4 MG/2 ML VIAL IV PRN (10:06)
--- NOTE | 2023-03-17 11:49 | P.PN ---
Date of Service: 03/17/23 Subjective: ROS: 10 point ROS as noted above, otherwise negative Physical Exam: GEN: Alert, oriented, NAD HEENT: Normal conjunctiva, sclera anicteric CV: Regular rate & rhythm, trace BLE edema Pulm: Nonlabored respiraitons on 4L NC, diminished at bases b/l ABD: Soft, nontender, nondistended MSK: No joint tenderness Integumentary: No rashes Neuro: Normal speech, normal affect vitals reviewed Problem List: Acute on Chronic Hypercapnic Respiratory Failure - likely secondary to a Chronic Obstructive Pulmonary Disease Exacerbation Pulmonary Hypertension Obstructive Sleep Apnea Morbid Obesity - BMI 44.5 kg/m2 Cholelithiasis Chronic Atrial Fibrillation Dyslipidemia Hypothyroidism Chronic Low Back Pain GERD Bipolar Disorder Hypertension Acute on Chronic Hypercapnic Respiratory Failure - likely secondary to a Chronic Obstructive Pulmonary Disease Exacerbation Pulmonary Hypertension Obstructive Sleep Apnea Morbid Obesity - BMI 44.5 kg/m2 CXR (03/12): 1. Cardiomegaly with increasing central vascular congestion and interstitial prominence suspicious for congestive failure and interstitial pulmonary edema. CTA chest (03/12): no central pulmonary embolism is definitively seen. If there is a high clinical suspicion for pulmonary embolism, consider further characterization by VQ scan. Progressive bandlike atelectasis in the lingula, with redemonstrated bandlike atelectasis versus scarring in the right lower lobe. Otherwise, no new focal consolidation, no acute cardiopulmonary abnormality. Small stone noted in the gallbladder neck. Ectatic main pulmonary artery, suggesting pulmonary hypertension. Multivessel coronary artery calcifications." Pulmonology consulted adjusted her home BiPAP/NIV settings Bronchodilators and steroids Continue home roflumilast, spironolactone, acetazolamide Lasix incentive spirometry Cholelithiasis Noted on CT scan. She denies any symptoms. General Surgery consulted and spoke with Dr. Valencia - recommendations appreciated Chronic Atrial Fibrillation - Rate-controlled without medication; Continue home apixaban Dyslipidemia - Continue home atorvastatin Hypothyroidism - Continue home levothyroxine Chronic Low Back Pain with RLS? - Continue home gabapentin, ropinirole GERD - Continue home pantoprazole Bipolar Disorder Hypertension - Continue home clonazepam to avoid benzodiazepine withdrawal VTE: Eliquis Code: do not intubate Dispo: Home, Anticipate discharge in next 24-48 hours if breathing improves Had an extensive goals of care discussion with her and explained that her COPD is advanced. We discussed the difference between continued aggressive disease- directed therapy versus symptom-directed/hospice care. She states that she is not interested in hospice at this time.
--- NOTE | 2023-03-17 12:21 | P.PN ---
Subjective Date of Service: 03/17/23 Chief Complaint: Hypercapnic respiratory failure/right upper quadrant pain Patient is complaining of right upper quadrant pain and nausea and she is intolerant to the BiPAP Review of Systems General: Weakness Respiratory: Shortness of Breath Gastrointestinal: Abdominal Pain Physical Examination - Vital Signs Temperature: 98.5 F Blood Pressure: 131/65 Pulse: 81 Respirations: 18 Pulse Ox (%): 98 - Physical Exam General: Moderate distress Respiratory: Clear to auscultation bilaterally, Diminished Cardiovascular: No edema, Regular rate/rhythm Gastrointestinal: Normal bowel sounds, Tenderness Assessment And Plan - Current Problems (Diagnosis) (1) Acute on chronic respiratory failure with hypoxia and hypercapnia Current Visit: No Status: Acute Plan: Patient has history of hypoxic hypercapnic respiratory failure PAP settings changed to IPAP of 20 EPAP 8 is similar to the BiPAP here in the hospital she is also morbidly obese vital signs are stable (2) Right upper quadrant pain Current Visit: Yes Status: Acute Plan: May be related to her gallbladder have ordered ultrasound of the abdomen normal white count KUB is negative Physician Review: Patient Assessed, Agree with Above Assessment and Plan
[2023-03-17] MEDS ORDERED: NALOXONE HCL 2 MG/2 ML VIAL IV PRN ×2 (13:35→13:40)
[2023-03-17] MEDS ORDERED: NALOXONE 0.4 MG/ML VIAL ONE (13:44)
[2023-03-17 14:48] LABS: Blood Gas Oxyhemoglobin 91.6 % (94-97); Blood O2 Saturation 94.5 % (92-98.5)
[2023-03-17] MEDS ORDERED: SODIUM BICARB 50 MEQ/50ML VIAL IV ONE (15:00)
[2023-03-17 16:03] LABS: Blood O2 Saturation 92.6 % (92-98.5)
[2023-03-17 16:04] LABS: Blood Gas Oxyhemoglobin 89.5 % (94-97)
--- NOTE | 2023-03-17 18:10 | RAD REPORT ---
EXAM DESCRIPTION: US - Abdomen Exam Complete - 03/17/2023 5:36 pm CLINICAL HISTORY: Abdominal pain COMPARISON: none FINDINGS: The liver has a normal echotexture Small gallstone. The gallbladder wall is not thickened. The biliary tree is normal caliber. The pancreas is normal in size and echotexture The right kidney measures 10 centimeters with a normal echotexture. The left kidney measures 10 centimeters with a normal echotexture. The evaluation the spleen. It measures 10 centimeters Abdominal aorta/IVC do not demonstrate a significant abnormality IMPRESSION: Cholelithiasis without evidence of cholecystitis
[2023-03-17] MEDS: ROPINIROLE HCL 1 MG TAB PO SCH ×2 (21:00→23:33)
[2023-03-17] MEDS: ATORVASTATIN 20 MG TAB PO SCH ×2 (22:53→23:27)
[2023-03-18] MEDS: ALBUTEROL 2.5 MG/3 ML NEB SOL NEB SCH ×4 (01:50→20:25)
[2023-03-18] MEDS: IPRATROPIUM BROM 0.5MG/2.5ML NEB SCH ×4 (01:50→20:25)
[2023-03-18] MEDS: PANTOPRAZOLE 40MG TABLET PO SCH (06:00)
[2023-03-18] MEDS: LEVOTHYROXINE SOD 0.088 MG TAB PO SCH (06:00)
[2023-03-18] MEDS: ONDANSETRON 4 MG/2 ML VIAL IV PRN (07:51)
--- NOTE | 2023-03-18 08:34 | P.PN ---
Subjective Date of Service: 03/18/23 Chief Complaint: Hypercapnic respiratory failure/right upper quadrant pain Patient was transferred to the ICU for being unresponsive patient states that her machine is not working not blowing enough air very alert responsive cooperative right now planing of the right upper quadrant pain Review of Systems General: Weakness Respiratory: Shortness of Breath Gastrointestinal: Abdominal Pain Physical Examination - Vital Signs Temperature: 97.3 F Blood Pressure: 124/81 Pulse: 78 Respirations: 18 Pulse Ox (%): 94 - Physical Exam General: Alert, Oriented x3 Neck: Supple Respiratory: Clear to auscultation bilaterally, Friction rub Cardiovascular: Regular rate/rhythm Gastrointestinal: Tenderness (Mild tenderness in the right upper quadrant) Assessment And Plan - Current Problems (Diagnosis) (1) Acute on chronic respiratory failure with hypoxia and hypercapnia Current Visit: No Status: Acute Plan: Patient is currently stable doing well on hospital BiPAP will contact [facility] regarding changing the machine patient stated that is not working not blowing enough air (2) Right upper quadrant pain Current Visit: Yes Status: Acute Plan: Patient has cholelith lithiasis without evidence of cholecystitis seen by general surgery Physician Review: Patient Assessed, Agree with Above Assessment and Plan
[2023-03-18] MEDS: acetaZOLAMIDE 250 MG TAB PO SCH (10:14)
[2023-03-18] MEDS: FUROSEMIDE 40 MG TABLET PO SCH (10:14)
[2023-03-18] MEDS: ROFLUMILAST 500 MCG TABLET PO SCH (10:14)
[2023-03-18] MEDS: APIXABAN 5 MG TABLET PO SCH ×2 (10:14→20:26)
[2023-03-18] MEDS: predniSONE 10 MG TAB PO SCH (10:14)
[2023-03-18] MEDS: GABAPENTIN 300 MG CAP PO SCH ×3 (10:14→20:26)
[2023-03-18] MEDS: SPIRONOLACTONE 25 MG TABLET PO SCH ×2 (10:15→20:27)
[2023-03-18] MEDS: clonazePAM 0.5 MG TAB PO PRN (11:57)
[2023-03-18] MEDS: HYDROCODONE/APAP 5/325 MG TAB PO PRN ×2 (15:36→22:28)
[2023-03-18] MEDS: ATORVASTATIN 20 MG TAB PO SCH (20:26)
[2023-03-18] MEDS: ROPINIROLE HCL 1 MG TAB PO SCH (20:26)
[2023-03-19] MEDS: IPRATROPIUM BROM 0.5MG/2.5ML NEB SCH ×4 (02:00→20:50)
[2023-03-19] MEDS: ALBUTEROL 2.5 MG/3 ML NEB SOL NEB SCH ×4 (02:00→20:50)
[2023-03-19 04:52] LABS: Absolute Lymphocytes (CBC) 1.6 K/uL (0.7-4.9); Lymphocytes % 21.3 % (15.3-44.8); MCV 81.8 fL (80-100); MPV 7.2 fL (7.6-11.3); RBC Red Blood Cell Count 4.28 M/uL (3.86-4.86)
[2023-03-19 05:48] LABS: ALT/SGPT 14 U/L (13-56); AST/SGOT 8 U/L (15-37); Alkaline Phosphatase 76 U/L (45-117); BUN Blood Urea Nitrogen 31 mg/dL (7-18); Bilirubin Total 0.4 mg/dL (0.2-1.0); Glomerular Filtration Rate 75 ml/min (=/>90); Glucose Level 135 mg/dL (74-106); Magnesium 2.3 mg/dL (1.6-2.4); Potassium 4.1 mEq/L (3.5-5.1); Protein, Total 6.1 g/dL (6.4-8.2); Sodium Level 134 mEq/L (136-145)
[2023-03-19 05:54] LABS: Bicarbonate > 45 mEq/L (21-32)
[2023-03-19] MEDS: LEVOTHYROXINE SOD 0.088 MG TAB PO SCH (06:06)
[2023-03-19] MEDS: PANTOPRAZOLE 40MG TABLET PO SCH (06:06)
[2023-03-19] MEDS: SPIRONOLACTONE 25 MG TABLET PO SCH ×2 (08:53→22:12)
[2023-03-19] MEDS: predniSONE 10 MG TAB PO SCH (08:54)
[2023-03-19] MEDS: GABAPENTIN 300 MG CAP PO SCH ×3 (08:54→22:12)
[2023-03-19] MEDS: APIXABAN 5 MG TABLET PO SCH ×2 (08:54→22:12)
[2023-03-19] MEDS: ROFLUMILAST 500 MCG TABLET PO SCH (08:54)
[2023-03-19] MEDS: acetaZOLAMIDE 250 MG TAB PO SCH ×2 (08:54→22:12)
--- NOTE | 2023-03-19 11:48 | P.PN ---
Subjective Date of Service: 03/19/23 Chief Complaint: Hypercapnic respiratory failure/right upper quadrant pain Patient is improving she is very alert responsive cooperative tolerate her home BiPAP and has also improved patient is eating and drinking Review of Systems General: Weakness Respiratory: Shortness of Breath Physical Examination - Vital Signs Temperature: 98.1 F Blood Pressure: 130/77 Pulse: 70 Respirations: 19 Pulse Ox (%): 95 - Physical Exam General: Alert, In no apparent distress, Oriented x3 Respiratory: Clear to auscultation bilaterally, Diminished Cardiovascular: No edema, Regular rate/rhythm, Normal S1 S2 Assessment And Plan - Current Problems (Diagnosis) (1) Acute on chronic respiratory failure with hypoxia and hypercapnia Current Visit: No Status: Acute Plan: Patient is currently stable doing better bicarbonate is well very elevated have stopped her Lasix increase her Diamox to 50 mg twice a day patient is also on spironolactone contacted [facility] patient to replace her BiPAP machine and put on settings identical to when she has in the hospital he seems to tolerate it very well complaining of not getting enough air with her home BiPAP transferred to the floor possible discharge (2) Right upper quadrant pain Current Visit: Yes Status: Acute Plan: Pain has improved discussed with general surgery no further treatment evaluated advance diet Physician Review: Patient Assessed, Agree with Above Assessment and Plan
[2023-03-19 15:37] LABS: Arterial Blood Carboxyhemoglob 1.6 % (0-1.5); Blood Gas Oxyhemoglobin 90.7 % (94-97); Blood O2 Saturation 93.3 % (92-98.5)
[2023-03-19] MEDS ORDERED: LACTULOSE 20 GM/30 ML UCUP PO PRN (19:14)
[2023-03-19] MEDS: ATORVASTATIN 20 MG TAB PO SCH (22:12)
[2023-03-19] MEDS: ROPINIROLE HCL 1 MG TAB PO SCH (22:12)
[2023-03-20] MEDS: IPRATROPIUM BROM 0.5MG/2.5ML NEB SCH ×4 (02:00→20:45)
[2023-03-20] MEDS: ALBUTEROL 2.5 MG/3 ML NEB SOL NEB SCH ×4 (02:00→20:45)
[2023-03-20] MEDS: PANTOPRAZOLE 40MG TABLET PO SCH ×2 (06:46→15:44)
[2023-03-20] MEDS: LEVOTHYROXINE SOD 0.088 MG TAB PO SCH (06:46)
[2023-03-20] MEDS ORDERED: PROMETHAZINE-DM 5 ML OSYR PO PRN (08:31)
[2023-03-20] MEDS ORDERED: CALCIUM CARBONATE CHEW 500MG TAB PO PRN (08:32)
[2023-03-20] MEDS: ROFLUMILAST 500 MCG TABLET PO SCH (08:42)
[2023-03-20] MEDS: acetaZOLAMIDE 250 MG TAB PO SCH ×2 (08:42→20:37)
[2023-03-20] MEDS: SPIRONOLACTONE 25 MG TABLET PO SCH ×2 (08:42→20:38)
[2023-03-20] MEDS: APIXABAN 5 MG TABLET PO SCH ×2 (08:42→20:38)
[2023-03-20] MEDS: GABAPENTIN 300 MG CAP PO SCH ×3 (08:43→20:38)
[2023-03-20] MEDS: predniSONE 10 MG TAB PO SCH (08:43)
--- NOTE | 2023-03-20 09:49 | RAD REPORT ---
EXAM DESCRIPTION: RAD - Chest Single View - 03/20/2023 9:35 am CLINICAL HISTORY: acute cough Chest pain. COMPARISON: <Comparisons> FINDINGS: Portable technique limits examination quality. Mild pulmonary edema is present. The heart is moderately enlarged in size. No displaced fractures. IMPRESSION: Mild CHF versus volume overload pattern. This appears moderately improved since 03/12/20 23 study.
[2023-03-20 09:57] LABS: Potassium 4.3 mEq/L (3.5-5.1)
--- NOTE | 2023-03-20 12:32 | P.DS ---
Admission Date: 03/12/23 Discharge Date: 03/20/23 Disposition: ROUTINE DISCHARGE Discharge Condition: FAIR Reason for Admission: Hypercapnic respiratory failure/right upper quadrant pain - Problems (1) Acute on chronic respiratory failure with hypoxia and hypercapnia Current Visit: No Status: Acute (2) Right upper quadrant pain Current Visit: Yes Status: Acute Brief History of Present Illness: Johann is 62 years of age morbidly obese hypoxic hypercapnic respiratory failure recurrent hospital admissions came in short of breath swelling of the right leg denies any fever or chills patient has not changed since admission compliant with her medication Hospital Course: Patient is 62 years of age. With hypoxic hypercapnic respiratory failure she has recurrent admissions there was a problem with her BiPAP that was changed by taking home patient current settings IPAP 18 EPAP 6 rate of 18 and inspiratory time of 0.8 seconds stated was not enough air coming through the machine so her bicarbonate was also elevated I DC'd the Lasix it is Elimite was increased to twice daily labs reviewed at time of discharge alert oriented responsive cooperative this morning patient had a coughing spell that resolved treat the patient with a PPI in case she has reflux is inducing her coughing spells patient did complain of right upper quadrant pain has a small gallstone and was seen by Dr. Hong general surgery intervention at this time He have underlying peptic ulcer disease and was prescribed pantoprazole Vital Signs/Physical Exam: Temp Pulse Resp BP Pulse Ox 96.9 F 81 18 119/59 L 98 03/20/23 12:00 03/20/23 12:00 03/20/23 12:00 03/20/23 12:00 03/20/23 12:00 Laboratory Data at Discharge: WBC 7.60 thou/uL (4.3-10.9) 03/19/23 04:32 Hgb 10.6 g/dL (12.0-15.0) L 03/19/23 04:32 Hct 35.0 % (36.0-45.0) L 03/19/23 04:32 Plt Count 146 thou/uL (152-406) L 03/19/23 04:32 PT 12.7 SECONDS (9.5-12.5) H 03/12/23 04:04 INR 1.15 03/12/23 04:04 Sodium 135 mEq/L (136-145) L 03/20/23 09:23 Potassium 4.3 mEq/L (3.5-5.1) 03/20/23 09:23 BUN 24 mg/dL (7-18) H 03/20/23 09:23 Creatinine 0.93 mg/dL (0.55-1.02) 03/20/23 09:23 Glucose 153 mg/dL (74-106) H 03/20/23 09:23 Magnesium 2.3 mg/dL (1.6-2.4) 03/19/23 04:32 Total Bilirubin 0.4 mg/dL (0.2-1.0) 03/19/23 04:32 AST 8 U/L (15-37) L 03/19/23 04:32 ALT 14 U/L (13-56) 03/19/23 04:32 Alkaline Phosphatase 76 U/L (45-117) 03/19/23 04:32 Home Medications: Apixaban [Eliquis] 5 mg PO BID 10/19/22 Atorvastatin Calcium 20 mg PO BEDTIME 10/19/22 Gabapentin 300 mg PO TID 10/19/22 Levothyroxine [Synthroid*] 88 mcg PO [id number] 10/19/22 Roflumilast [Daliresp] 500 mcg PO DAILY 10/19/22 Ropinirole HCl 1 tab PO BEDTIME 10/19/22 Pantoprazole [Protonix Tab*] 40 mg PO DAILYAC #30 tab 12/13/22 Spironolactone [Aldactone*] 25 mg PO BID #60 tab 12/13/22 predniSONE [Deltasone*] 10 mg PO DAILY #30 tab 12/13/22 Lidocaine 4% Patch [Lidoderm 5% Patch*] 1 patch TD DAILY 01/24/23 Tizanidine HCl [Zanaflex] 2 mg PO TID PRN 01/24/23 Pantoprazole Sodium [Protonix] 40 mg PO DAILY 90 Days #90 tab 03/20/23 acetaZOLAMIDE [Acetazolamide] 250 mg PO BID 30 Days #60 tab 03/20/23 New Medications: acetaZOLAMIDE [Acetazolamide] 250 mg PO BID 30 Days #60 tab Pantoprazole Sodium [Protonix] 40 mg PO DAILY 90 Days #90 tab Physician Discharge Instructions: Patient to DC furosemide take acetazolamide to 50 mg twice a day/his BiPAP has been changed Diet: Regular Activity: Ad kristopher
[2023-03-20] MEDS: ATORVASTATIN 20 MG TAB PO SCH (20:37)
[2023-03-20] MEDS: ROPINIROLE HCL 1 MG TAB PO SCH (20:38)
[2023-03-21] MEDS: ALBUTEROL 2.5 MG/3 ML NEB SOL NEB SCH ×3 (01:50→13:35)
[2023-03-21] MEDS: IPRATROPIUM BROM 0.5MG/2.5ML NEB SCH ×3 (01:50→13:35)
[2023-03-21] MEDS: LEVOTHYROXINE SOD 0.088 MG TAB PO SCH (05:48)
[2023-03-21] MEDS: APIXABAN 5 MG TABLET PO SCH (08:26)
[2023-03-21] MEDS: predniSONE 10 MG TAB PO SCH (08:26)
[2023-03-21] MEDS: PANTOPRAZOLE 40MG TABLET PO SCH ×2 (08:26→16:52)
[2023-03-21] MEDS: GABAPENTIN 300 MG CAP PO SCH ×2 (08:26→12:39)
[2023-03-21] MEDS: acetaZOLAMIDE 250 MG TAB PO SCH (08:26)
[2023-03-21] MEDS: ROFLUMILAST 500 MCG TABLET PO SCH (08:26)
[2023-03-21] MEDS: SPIRONOLACTONE 25 MG TABLET PO SCH (08:30)
--- NOTE | 2023-03-21 08:33 | RAD REPORT ---
EXAM DESCRIPTION: RADChest Single View03/21/2023 4:35 am CLINICAL HISTORY: acute cough COMPARISON: Chest Single View dated 03/20/2023; Abdomen 1 View (KUB) dated 03/16/2023; Chest Single Vi ew dated 03/12/2023; Chest Single View dated 01/24/2023 TECHNIQUE: Portable AP view of the chest. FINDINGS: The lungs show no new focal airspace opacities. Mild cardiomegaly and mild central interst itial prominence, stable. No pneumothorax or effusion. The cardiomediastinal contours are unremarkabl e. IMPRESSION: Stable central interstitial prominence. No other acute findings.
[2023-03-21 09:57] VITALS: O2SAT 95
[2023-03-21] MEDS ORDERED: MAGNESIUM HYDROXIDE 8% 30 ML PO ONE (12:25)
[2023-03-21] MEDS ORDERED: BISACODYL E.C. 5 MG TAB PO ONE (12:25)
[2023-03-21 16:43] VITALS: BP 142/68; TEMP 98.4
[2023-03-21] MEDS ORDERED: DOCUSATE NA 100 MG CAP PO SCH (21:00)
== END 2023-03-21 19:00 | disposition home or self-care (01) | DRG 189 ==
LOC: ER 03:18 → ERHOLD 05:47 → 3RD-ICU 14:38 → 4TH 03-15 07:33 → 3RD-ICU 03-17 14:22 → 4TH 03-19 12:20
PROVIDERS: ADMIT Internal Medicine; ATTEND Hospitalist
PROC: 5A09557 Assistance with Respiratory Ventilation, Greater than 96 Consecutive Hours, Continuous Positive Airway Pressure (ICD-10-PCS; principal; 2023-03-12)
DX: J96.21 Acute and chronic respiratory failure with hypoxia (principal); J44.1 Chronic obstructive pulmonary disease with (acute) exacerbation; I50.32 Chronic diastolic (congestive) heart failure; Z68.41 Body mass index [BMI] 40.0-44.9, adult; J96.22 Acute and chronic respiratory failure with hypercapnia; I11.0 Hypertensive heart disease with heart failure; I48.0 Paroxysmal atrial fibrillation; K21.9 Gastro-esophageal reflux disease without esophagitis; E78.00 Pure hypercholesterolemia, unspecified; I27.20 Pulmonary hypertension, unspecified; D64.9 Anemia, unspecified; F31.9 Bipolar disorder, unspecified; K27.9 Peptic ulcer, site unspecified, unspecified as acute or chronic, without hemorrhage or perforation; G89.29 Other chronic pain; G47.33 Obstructive sleep apnea (adult) (pediatric); M54.50 Low back pain, unspecified; E66.01 Morbid (severe) obesity due to excess calories; K80.20 Calculus of gallbladder without cholecystitis without obstruction; E03.9 Hypothyroidism, unspecified; Z51.5 Encounter for palliative care; Z90.49 Acquired absence of other specified parts of digestive tract; Z99.81 Dependence on supplemental oxygen; Z79.01 Long term (current) use of anticoagulants; Z79.52 Long term (current) use of systemic steroids; Z79.890 Hormone replacement therapy; Z87.891 Personal history of nicotine dependence; Z79.899 Other long term (current) drug therapy
CPT/HCPCS: 36415; 36600; 71045; 71275; 74018; 76700; 80048; 80053; 80076; 82805; 82947; 83735; 83880; 84484; 85025; 85610; 93005; 93971; 94640; 94660; 94760; 96365; 96375; 99285; J1100; J1940; J2310; J2405; J2930; J3475; J7512; J7613; J7644; Q9967

== ENCOUNTER 2023-04-25 17:04 | Emergency (ER) | payer OTHER ==
--- OUTSIDE RECORDS SUMMARY | 2023-04-25 17:12 | XMS REPORT | Continuity of Care Document ---
:1960 Author Organization [facility] t Address [address] [facility] [place] [address] Care Team Providers Name Role Phone Reena Moran Primary Care Physician Billy Howard Attending Clinician Unavailable GIAN CHURCH Attending Clinician Unavailable Martin Leblanc MD Attending Clinician Unavailable Gian Church MD Attending Clinician MARTIN LEBLANC Attending Clinician Unavailable KRISTEN PATRICK Attending Clinician Unavailable KRISTEN PATRICK Attending Clinician Unavailable Doctor Unassigned, [place] Attending Clinician Unavailable JETHRO ZHAO Attending Clinician Unavailable Negra Gregory Attending Clinician [phone] [address] Attending Clinician Unavailable Sheryl Ca MD Attending Clinician Jethro Dodge MD Attending Clinician [phone] JETHRO DODGE Attending Clinician Unavailable Alex DIETRICH, Christa Lincoln Attending Clinician CHRISTA KING Attending Clinician Unavailable JESSE ARREDONDO Attending Clinician Unavailable Ronaldo DIETRICH, [place] Oates Attending Clinician David CARDONA, Viviana Person Attending Clinician Jeronimo Hogue MD Attending Clinician Christian DIETRICH, Julian Rose Attending Clinician Sammie Tarango MD Attending Clinician Jordin DIETRICH, [place] Attending Clinician Sung DIETRICH, Chu Mayer Attending Clinician [phone] CHU MARIN Attending Clinician Unavailable Lizbeth [...] Number Effective Date Expiration Date [place] [id number] 2019 Common [facility] 00:00:00 [facility] Problems Condition Condition Condition [...] failure y failure 2-16 ity of 00:00: [address] Obesity Obesity Disease Active Univers (BMI (BMI 9-11 ity of 30-39.9) 30-39.9) 00:00: [address] Tobacco Tobacco Disease [facility] Medical [address] [place] [address] Hypoxemia Hypoxemia Disease [facility] Medical [address] [place] [address] COPD COPD Disease Recurre [facility] exacerbati exacerbati nce 6-05 Pema kes on on 00:00: [address] Acute Acute Disease Recurre [facility] hypercapni hypercapni nce 6-05 Pema kes c c 00:00: Medical respirator respirator 00 Ce nter y failure y failure Wears Wears Disease Active Univers partial partial ity of dentures dentures [facility] [id number] Severe Problem Common chronic Spirit obstructiv - [facility] e [facility] Hypertensi Hypertensi Problem C ommon on on [facility] Hypothyroi Hypothyroi Problem C ommon dism dism [facility] Counseling Tobacco Problem Comm on about abuse Spirit tobacco counseling - [facility] use [facility] Hyperlipid Hyperlipid Problem C ommon emia emia, [facility] type [facility] Chronic Chronic Problem Common pain pain Spirit syndrome syndrome - [facility] Bipolar Bipolar Problem Common disorder disorder [facility] [id number] Nasal Problem Common bleeding [facility] Essential Essential Problem Com mon hypertensi hypertensi Sp kiley on on [facility] [id number] History of Problem Co mmon congestive Spirit heart - [facility] failure [facility] Pulmonary Pulmonary Problem Com mon hypertensi hypertensi Sp kiley on on, - [facility] Problem Common obstructiv obstructiv Sp kiley e e - [facility] pulmonary pulmonary [facility] disease [facility] unspecifie Medica l d COPD Center type [id number] Morbid Problem Common obesity Spirit - [facility] [id number] On Problem Common supplement Spirit al oxygen - CHI by nasal [facility] [id number] Body mass Problem Com mon index Spirit (BMI) - CHI 40.0-44.9, [facility] [id number] CPAP Problem Common (continuou Spirit s positive - [facility] airway [facility] pressure) [facility] f[facility] dependence Medica l [place] [id number] Nasal Problem Common congestion [facility] - [facility] Vaginal Vaginal Problem Common bleeding bleeding [facility] Congestive Congestive Problem C ommon heart heart Spirit disease failure, - [facility] unspecifie [facility] d HF [facility] chronicity Medica l , Center unspecifie d heart failure type [id number] Pain in Problem Comm on [id number] right Spirit shoulder - [facility] [id number] VIVEK Problem Common (obstructi Spirit ve sleep - [facility] apnea) [facility] [id number] Nontraumat Problem C ommon [id number] ic Spirit complete - [facility] tear of [facility] rotator Medical cuff Center [id number] Abnormal Problem Comm on thyroid Spirit function - [facility] test [facility] [id number] RLS Problem Common (restless Spirit legs - [facility] syndrome) [facility] [id number] 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 - CHI s [facility] [id number] SARS Problem Common pneumonia [facility] [id number] Other Problem Common chronic Spirit pain - [facility] Allergies, Adverse Reactions, Alerts Allergy Allergy Status [...] codeine Active Unknown Common Spirit - [facility] Social History Social Habit Start Date Stop Date Quantity Comments Source History SDOH University o f Alcohol Frequency [place] [facility] History [facility] University o f Alcohol Std Drinks [place] [facility] History [facility] University o f Alcohol Binge [place] [facility] Gender identity Universit y [facility] Sexual orientation Univer sity [facility] History of Tobacco Common Spirit - Use [facility] Exposure to 2023-01-04 2023-01-14 Not sure University of SARS-CoV-2 (event) 00:00:00 12:54:00 [facility] Alcohol intake 2022-08-13 2022-08-13 0 /d University of 00:00:00 00:00:00 [facility] History of Social 2022-08-05 2022-08-05 Univers ity of function 00:00:00 00:00:00 [facility] Tobacco use and 2022-06-07 2022-06-07 Smokeless tobacco Un iversity of exposure 00:00:00 00:00:00 non-user [facility] Tobacco Comment 2022-06-07 2022-06-07 1-1.5 packs a day, U niversity of 00:00:00 00:00:00 quit 2018 [facility] Alcohol Comment 2020-11-12 2020-11-12 occasionally Univers ity of 00:00:00 00:00:00 [facility] Sex Ass[birth year] At [birth year] [facility] 00:00:00 00:00:00 [facility] Smoking Status Start Date Stop Date Source Ex-smoker 2022-06-07 00:00:00 2022-06-07 00:00:00 Universi ty [facility] Medications Ordered Filled Start Stop Current Ordering Indication Dosage Frequency Signature Comments Components Source Medication Medication Date Date Medication? Clinician (SIG) Name Name gabapentin Yes [id number] 300mg Take 1 Univers 300 mg 7-21 capsule by ity of capsule 00:00: mouth in [place] 00 the Medical morning Branch and 1 capsule at noon and 1 capsule in the evening. tiZANidine Yes [id number] 2mg Take 1 Univers 2 mg tablet 7-21 tablet by ity of 00:00: mouth 3 [place] 00 (three) Medical times Branch daily as needed (muscle pain). tiZANidine Yes [id number] 2mg Take 1 Univers 2 mg tablet 4-25 tablet by ity of 00:00: mouth 3 [place] 00 (three) Medical times Branch daily as needed (muscle pain). Diclofenac 2022-0 Yes [id number] Apply to Univers Epolamine 4-25 skin once ity o f (FLECTOR) 00:00[place] 1[place] % patch 00 needed Medica l (shoulder Branch pain). tiZANidine 0 Yes [id number] 2mg Take 1 Univers 2 mg tablet 4-25 tablet by ity of 00:00: mouth 3 [place] 00 (three) Medical times Branch daily as needed (muscle pain). Diclofenac 0 Yes [id number] Apply to Univers Epolamine 4-25 skin once ity o f (FLECTOR) 00:00[place] 1.[place] % patch 00 needed Medica l (shoulder Branch pain). tiZANidine Yes [id number] 2mg Take 1 Univers 2 mg tablet 4-25 tablet by ity of 00:00: mouth 3 [place] 00 (three) Medical times Branch daily as needed (muscle pain). Diclofenac 0 Yes [id number] Apply to Univers Epolamine 4-25 skin once ity o f (FLECTOR) 00:00: [place] 1.[place] % patch 00 needed Medica l (shoulder Branch pain). Diclofenac 2022-0 Yes [id number] Apply to Univers Epolamine 4-25 skin once ity o f (FLECTOR) 00:00: [place] 1.[place] % patch 00 needed Medica l (shoulder Branch pain). tiZANidine 2022- No [id number] 2mg Take 1 Univers 2 mg tablet 01-14- tablet by it y of 00:00: 00:00 mouth 3 [place] 00 :00 (three) Medical times Branch daily as needed (muscle pain). traMADol 50 2022- No 50mg Take 50 mg Univers mg tablet 11-26 by mouth 3 ity of 15:02: 00:00 (three) [place] 43 :00 times Medical daily. Branch traMADol 50 2022- No 50mg Take 50 mg Univers mg tablet 11-26 by mouth 3 ity of 15:02: 00:00 (three) [place] 43 :00 times Medical daily. Branch gabapentin 2022- Yes [id number] 300mg Take 1 Univers 300 mg 3-07 capsule by ity of capsule 00:00: mouth in [place] [address] the Medical morning Branch and 1 capsule at noon and 1 capsule in the evening. Diclofenac 2023-0 Yes [id number] Apply to Univers Sodium 3-07 area(s) ity of (VOLTAREN) 00:00: daily. [place] 1 % gel 00 [facility] Branch gabapentin 2023-0 Yes [id number] 300mg Take 1 Univers 300 mg 3-07 capsule by ity of capsule 00:00: mouth in [place] [address] the Medical morning Branch and 1 capsule at noon and 1 capsule in the evening. Diclofenac 2023-0 Yes [id number] Apply to Univers Sodium 3-07 area(s) ity of (VOLTAREN) 00:00: daily. [place] 1 % gel [facility] Branch gabapentin 2023-0 Yes [id number] 300mg Take 1 Univers 300 mg 3-07 capsule by ity of capsule 00:00: mouth in [place] [address] the [facility] morning [place] and 1 capsule at noon and 1 capsule in the evening. Diclofenac 2023-0 Yes [id number] Apply to Univers Sodium 3-07 area(s) ity of (VOLTAREN) 00:00: daily. [place] 1 % gel [facility] Branch gabapentin 2023-0 Yes [id number] 300mg Take 1 Univers 300 mg 3-07 capsule by ity of capsule 00:00: mouth in [place] [address] the Medical morning [place] and 1 capsule at noon and 1 capsule in the evening. Diclofenac 2023-0 Yes [id number] Apply to Univers Sodium 3-07 area(s) ity of (VOLTAREN) 00:00: daily. [place] 1 % gel [facility] Branch gabapentin 2023-0 Yes [id number] 300mg Take 1 Univers 300 mg 3-07 capsule by ity of capsule 00:00: mouth in [place] [address] the Medical morning [place] and 1 capsule at noon and 1 capsule in the evening. Diclofenac 2023-0 Yes [id number] Apply to Univers Sodium 3-07 area(s) ity of (VOLTAREN) 00:00: daily. [place] 1 % gel 00 [facility] gabapentin 2023-0 Yes [id number] 300mg Take 1 Univers 300 mg 3-07 capsule by ity of capsule 00:00: mouth in [address] Medical morning [place] and 1 capsule at noon and 1 capsule in the evening. Diclofenac 2022-0 Yes [id number] Apply to Univers Sodium 3-07 area(s) ity of (VOLTAREN) 00:00: daily. [place] 1 % gel [facility] Branch gabapentin 2022-0 Yes [id number] 300mg Take 1 Univers 300 mg 3-07 capsule by ity of capsule 00:00: mouth in [place] 00 the Medical morning Branch and 1 capsule at noon and 1 capsule in the evening. Diclofenac 2022-0 Yes [id number] Apply to Univers Sodium 3-07 area(s) ity of (VOLTAREN) 00:00: daily. [place] 1 % gel [facility] Branch gabapentin 2022-0 Yes [id number] 300mg Take 1 Univers 300 mg 3-07 capsule by ity of capsule 00:00: mouth in [place] [address] the Medical morning Branch and 1 capsule at noon and 1 capsule in the evening. Diclofenac 2022-0 Yes [id number] Apply to Univers Sodium 3-07 area(s) ity of (VOLTAREN) 00:00: daily. [place] 1 % gel [facility] Branch Diclofenac 2022-0 Yes [id number] Apply to Univers Sodium 3-07 area(s) ity of (VOLTAREN) 00:00: daily. [place] 1 % gel [facility] gabapentin 2022-0 202- No [id number] 300mg Take 1 Univers 300 mg 3-07 07-21 capsule by ity of capsule 00:00: 00:00 mouth in [place] 00 :00 the Medical morning Branch and 1 capsule at noon and 1 capsule in the evening. Cefdinir Cefdinir 2021-09- No Cefdinir 300 MG 300 MG 2-21 12-31 300 MG 00:00: 00:00 00 :00 predniSONE predniSONE 2021-09- No QD predniSONE 20 MG 20 MG 2-21 12-26 20 MG 00:00: 00:00 00 :00 Diclofenac 2021- Yes [id number] Apply to Univers Sodium 1-22 area(s) ity of (VOLTAREN) 00:00: daily. [place] 1 % gel [facility] gabapentin 2021-09 Yes [id number] 100mg Take 1 Univers 100 mg 1-22 capsule by ity of capsule 00:00: mouth in [place] [address] the Medical morning Branch and 1 capsule in the evening. Diclofenac 2021-09 Yes [id number] Apply to Univers Sodium 1-22 area(s) ity of (VOLTAREN) 00:00: daily. [place] 1 % gel Medical Branch gabapentin 2021-09 Yes [id number] 100mg Take 1 Univers 100 mg 1-22 capsule by ity of capsule 00:00: mouth in [place] [address] the Medical morning [place] and 1 capsule in the evening. Diclofenac 2021-09 Yes [id number] Apply to Univers Sodium 1-22 area(s) ity of (VOLTAREN) 00:00: daily. [place] 1 % gel Medical Branch gabapentin 2021-09 Yes [id number] 100mg Take 1 Univers 100 mg 1-22 capsule by ity of capsule 00:00: mouth in [place] [address] the [facility] morning [place] and 1 capsule in the evening. Diclofenac 2021-09 Yes [id number] Apply to Univers Sodium 1-22 area(s) ity of (VOLTAREN) 00:00: daily. [place] 1 % gel [facility] Branch gabapentin 2021-09 Yes [id number] 100mg Take 1 Univers 100 mg 1-22 capsule by ity of capsule 00:00: mouth in [address] morning [place] and 1 capsule in the evening. Diclofenac 2021-09 Yes [id number] Apply to Univers Sodium 1-22 area(s) ity of (VOLTAREN) 00:00: daily. [place] 1 % gel [facility] Branch gabapentin 2021-09 Yes [id number] 100mg Take 1 Univers 100 mg 1-22 capsule by ity of capsule 00:00: mouth in [address] morning [place] and 1 capsule in the evening. Diclofenac 2021- Yes [id number] Apply to Univers Sodium 1-22 area(s) ity of (VOLTAREN) 00:00: daily. [place] 1 % gel [facility] Branch gabapentin 2021- Yes [id number] 100mg Take 1 Univers 100 mg 1-22 capsule by ity of capsule 00:00: mouth in [address] morning [place] and 1 capsule in the evening. Diclofenac 2021- Yes [id number] Apply to Univers Sodium 1-22 area(s) ity of (VOLTAREN) 00:00: daily. [place] 1 % gel 00 [facility] Branch gabapentin 2021- Yes [id number] 100mg Take 1 Univers 100 mg 1-22 capsule by ity of capsule 00:00: mouth in [place] 00 the Medical morning Branch and 1 capsule in the evening. Diclofenac 2021-09 Yes [id number] Apply to Univers Sodium -22 area(s) ity of (VOLTAREN) 00:00: daily. [place] 1 % gel 00 Medical Branch gabapentin 2021-09 Yes [id number] 100mg Take 1 Univers 100 mg 10-13 capsule by ity of capsule 00:00: mouth in [place] 00 the Medical morning Branch and 1 capsule in the evening. Diclofenac 2021-09- No [id number] Apply to Univers Sodium 22 -07 area(s) ity of (VOLTAREN) 00:00: 00:00 [place]. [place] 1 % gel 00 :00 Medical Branch gabapentin 2021-09- No [id number] 100mg Take 1 Univers 100 mg 10-13 capsule by ity of capsule 00:00: 00:00 mouth in [place] 00 :00 the Medical morning Branch and 1 capsule in the evening. Diclofenac 2021-09- No [id number] Apply to Univers Sodium 22 - area(s) ity of (VOLTAREN) 00:00: 00:00 [place]. [place] 1 % gel 00 :00 Medical Branch gabapentin 2021-09- No [id number] 100mg Take 1 Univers 100 mg 10-13 capsule by ity of capsule 00:00: 00:00 mouth in [place] 00 :00 the Medical morning Branch and 1 capsule in the evening. triamcinolo 2021-09- No [id number] 40mg Univers ne 10-05 ity of acetonide 19:00: 18:04 [place] (KENALOG) 00 :00 Medical injection Branch 40 mg triamcinolo 2021-09- No [id number] 40mg 40 mg, Univers ne 10-05 Intramuscu ity of acetonide 19:00: 18:04 [place], ONCE, [place] (KENALOG) 00 :00 1 dose, On Medi derrick injection Mon Branch 40 mg 08/05/22 at 1300, Routine triamcinolo 2021-09- No [id number] 40mg Univers ne 10-0514 ity of acetonide 19:00: 18:04 [place] (KENALOG) 00 :00 Medical injection Branch 40 mg triamcinolo 2021-09- No [id number] 40mg 40 mg, Univers ne 10-05 Intramuscu ity of acetonide 19:00: 18:04 [place], [place]CE, [place] (KENALOG) 00 :00 1 dose, On Medi derrick injection Mon Branch 40 mg 08/05/22 at 1300, Routine methylPREDN 2021- No [id number] 80mg U nivers ISolone 06-07 ity of acetate 19:30: 18:38 [place] (DEPO-MEDRO 00 :00 Medical L) Branch injection 80 mg methylPREDN 2021- No [id number] 80mg 80 mg, Univers ISolone 06-07 Intramuscu ity o f acetate 19:30: 18:38 [place], ONCE, [place] (DEPO-MEDRO 00 :00 1 dose, On Me dical L) Fri Branch injection 06/07/22 at 80 mg 1430, Routine methylPREDN 2021- No [id number] 80mg U nivers ISolone 06-07 ity of acetate 19:30: 18:38 [place] (DEPO-MEDRO 00 :00 Medical L) Branch injection 80 mg methylPREDN 2021- No [id number] 80mg 80 mg, Univers ISolone 06-07 Intramuscu ity o f acetate 19:30: 18:38 [place], ONCE, [place] (DEPO-MEDRO 00 :00 1 dose, On Me dical L) Fri Branch injection 06/07/22 at 80 mg 1430, Routine Kenalog Kenalog No 40mg Common (Triamcinol (Triamcinol 7-21 S pirit one) one) 00:00: - [facility] Bupivicaine Bupivicaine 2021-0 No 2.5mg Common Keymar Keymar 7-21 Spirit 00:00: - [facility] Kenalog Kenalog 2021-0 No 40mg Common (Triamcinol (Triamcinol 7-21 S pirit one) one) 00:00: - [facility] Bupivicaine Bupivicaine 2021-0 No 2.5mg Common Keymar Keymar 7-21 Spirit 00:00: - [facility] Kenalog Kenalog 2-0 No 40mg Common (Triamcinol (Triamcinol 7-21 S pirit one) one) 00:00: - [facility]I [facility] Bupivicaine Bupivicaine 2-0 No 2.5mg Common Keymar Keymar 7-21 Spirit 00:00: - [facility] 00 [facility] Kenalog Kenalog 2021-0 No 40mg Common (Triamcinol (Triamcinol 7-21 S pirit one) one) 00:00: - CHI 00 [facility] Bupivicaine Bupivicaine 2-0 No 2.5mg Common Keymar Keymar 7-21 Spirit 00:00: - CHI 00 [facility] Kenalog Kenalog 2021-0 No 40mg Common (Triamcinol (Triamcinol 7-21 S pirit one) one) 00:00: - CHI 00 [facility] Bupivicaine Bupivicaine 2-0 No 2.5mg Common Keymar Keymar 7-21 Spirit 00:00: - [facility] 00 [facility] Kenalog Kenalog 2-0 No 40mg Common (Triamcinol (Triamcinol 7-21 S pirit one) one) 00:00: - [facility]I 00 [facility] Bupivicaine Bupivicaine 2-0 No 2.5mg Common Keymar Keymar 7-21 Spirit 00:00: - [facility] 00 [facility] Kenalog Kenalog 2021-0 No 40mg Common (Triamcinol (Triamcinol 7-21 S pirit one) one) 00:00: - [facility]I 00 [facility] Bupivicaine Bupivicaine 2-0 No 2.5mg Common Keymar Keymar 7-21 Spirit 00:00: - [facility] 00 [facility] Kenalog Kenalog 2-0 No 40mg Common (Triamcinol (Triamcinol 4-27 S pirit one) one) 00:00: - [facility] Lidocaine Lidocaine 2-0 No 10mg Com mon - Spirit 00:00: - [facility] Kenalog Kenalog 2022-0 No 40mg Common (Triamcinol (Triamcinol 4-27 S pirit one) one) 00:00: - [facility] Lidocaine Lidocaine 2-0 No 10mg Com 01-16 Spirit 00:00: - [facility] Kenalog Kenalog 2-0 No 40mg Common (Triamcinol (Triamcinol 4-27 S pirit one) one) 00:00: - [facility] Lidocaine Lidocaine 2-0 No 10mg Com 01-16 Spirit 00:00: - [facility] Kenalog Kenalog 2-0 No 40mg Common (Triamcinol (Triamcinol 4-27 S pirit one) one) 00:00: - [facility] Lidocaine Lidocaine 2-0 No 10mg Com 01-16 Spirit 00:00: - [facility] Kenalog Kenalog 2-0 No 40mg Common (Triamcinol (Triamcinol 4-27 S pirit one) one) 00:00: - [facility] Lidocaine Lidocaine 2-0 No 10mg Com 01-16 Spirit 00:00: - [facility] Kenalog Kenalog 2-0 No 40mg Common (Triamcinol (Triamcinol 4-27 S pirit one) one) 00:00: - [facility] Lidocaine Lidocaine 2-0 No 10mg Com 01-16 Spirit 00:00: - [facility] Kenalog Kenalog 2-0 No 40mg Common (Triamcinol (Triamcinol 4-27 S pirit one) one) 00:00: - [facility] Lidocaine Lidocaine 2-0 No 10mg Com 01-16 Spirit 00:00: - [facility] Lidocaine Lidocaine 2022-0 No 10mg Com 12-06 Spirit 00:00: - [facility] Kenalog Kenalog 2-0 No 40mg Common (Triamcinol (Triamcinol 3-17 S pirit one) one) 00:00: - [facility] Lidocaine Lidocaine 2022-0 No 10mg Com 12-06 Spirit 00:00: - [facility] Kenalog Kenalog 2021-0 No 40mg Common (Triamcinol (Triamcinol 3-17 S pirit one) one) 00:00: - [facility] Lidocaine Lidocaine 2021-0 No 10mg Com 12-06 Spirit 00:00: - [facility] Kenalog Kenalog 2021-0 No 40mg Common (Triamcinol (Triamcinol 3-17 S pirit one) one) 00:00: - [facility] Lidocaine Lidocaine 2021-0 No 10mg Com 12-06 Spirit 00:00: - [facility] Kenalog Kenalog 2021-0 No 40mg Common (Triamcinol (Triamcinol 3-17 S pirit one) one) 00:00: - [facility] Lidocaine Lidocaine 2021-0 No 10mg Com 12-06 Spirit 00:00: - [facility] Kenalog Kenalog 2021-0 No 40mg Common (Triamcinol (Triamcinol 3-17 S pirit one) one) 00:00: - [facility] Lidocaine Lidocaine 2021-0 No 10mg Com 12-06 Spirit 00:00: - [facility] Kenalog Kenalog 2021-0 No 40mg Common (Triamcinol (Triamcinol 3-17 S pirit one) one) 00:00: - [facility] Lidocaine Lidocaine 2021-0 No 10mg Com 12-06 Spirit 00:00: - [facility] Kenalog Kenalog 2021-0 No 40mg Common (Triamcinol (Triamcinol 3-17 S pirit one) one) 00:00: - [facility] carvedilol 2020-0 Yes 3.125mg Take 3.125 Univers [...] 2 [place] tablet 41 (two) Medical times [place] daily with meals. traMADol 50 2020-0 Yes 50mg Take 50 mg Univers mg tablet 9-24 by mouth 3 ity of 14:31: (three) [place] 41 times Medical daily. Branch carvedilol 2020-0 Yes 3.125mg Take 3.125 Univers (COREG) 9-24 mg by ity of 3.125 mg 14:31: mouth 2 [place] tablet 41 (two) Medical times [place] daily with meals. traMADol 50 2020-0 Yes 50mg Take 50 mg Univers mg tablet 9-24 by mouth 3 ity of 14:31: (three) [place] 41 times Medical daily. Branch carvedilol 2020-0 Yes 3.125mg Take 3.125 Univers (COREG) 9-24 mg by ity of 3.125 mg 14:31: mouth 2 [place] tablet 41 (two) Medical times [place] daily with meals. traMADol 50 1-0 Yes [...] (two) Medical times Branch daily with meals. [facility] 0 Yes Univers 500 mcg 9-22 ity of tablet 00:00: [place] [facility] 2020-0 Yes Univers 500 mcg 9-22 ity of tablet 00:00: [place] [facility] 2020-0 Yes Univers 500 mcg 9-22 ity of tablet 00:00: [place] [facility] 2020-0 Yes Univers 500 mcg 9-22 ity of tablet 00:00: [place] [facility] 2020-0 Yes Univers 500 mcg 9-22 ity of tablet 00:00: [facility] 2020-0 Yes Univers 500 mcg 9-22 ity of tablet 00:00: [place] [facility] 2020-0 Yes Univers 500 mcg 9-22 ity of tablet 00:00: [place] [facility] 2020-0 Yes Univers 500 mcg 9-22 ity of tablet 00:00: [place] [facility] 2020-0 Yes Univers 500 mcg 9-22 ity of tablet 00:00: [place] [facility] 2020-0 Yes Univers 500 mcg 9-22 ity of tablet 00:00: [place] [facility] 2020-0 Yes Univers 500 mcg 9-22 ity of tablet 00:00: [place] [facility] 2020-0 Yes Univers 500 mcg 9-22 ity of tablet 00:00: [place] [facility] 2020-0 Yes Univers 500 mcg 9-22 ity of tablet 00:00: [place] [facility] 2020-0 Yes Univers 500 mcg 9-22 ity of tablet 00:00: [place] [facility] 2020-0 Yes Univers 500 mcg 9-22 ity of tablet 00:00: [address] 2020-0 Yes Univers 500 mcg 9-22 ity of tablet 00:00: [place] [facility] 2020-0 Yes Univers 500 mcg 9-22 ity of tablet 00:00: [place] [facility] 2020-0 Yes Univers 500 mcg 9-22 ity of tablet 00:00: [address] 2020-0 Yes Univers 500 mcg 9-22 ity of tablet 00:00: [place] [facility] 2020-0 Yes Univers 500 mcg 9-22 ity of tablet 00:00: [address] 2020-0 Yes Univers 500 mcg 9-22 ity of tablet 00:00: [address] 2020-0 Yes [facility] 500 mcg 9-22 ity of tablet 00:00: [address] 2020-0 Yes [facility] 500 mcg 9-22 ity of tablet 00:00: [address] 2020-0 Yes [facility] 500 mcg 9-22 ity of tablet 00:00: [address] predniSONE 2020-0 Yes 10mg Take 10 mg U nivers 10 mg 8-31 by mouth ity of tablet 00:00: daily. [address] predniSONE 2020-0 Yes 10mg Take 10 mg U nivers 10 mg 8-31 by mouth ity of tablet 00:00: daily. [address] predniSONE 2020-0 Yes 10mg Take 10 mg U nivers 10 mg 8-31 by mouth ity of tablet 00:00: daily. [address] predniSONE 1-0 Yes 10mg Take 10 mg U nivers 10 mg 8-31 by mouth ity of tablet 00:00: daily. [place] [address] Medical Branch predniSONE 2020-0 2022- No 10mg Take 10 mg [facility] 10 mg 8- 11-14 by mouth ity of tablet 00:00: 00:00 daily. [place] 00 : Medical Branch predniSONE 2020-0 2022- No 10mg Take 10 mg [facility] 10 mg 8-31 11-14 by mouth ity of tablet 00:00: 00:00 daily. [place] 00 :00 Medical Branch predniSONE 2020-0 Yes TAKE 1 Unive rs 20 mg 8-26 TABLET BY ity of tablet 00:00: MOUTH [place] 00 TWICE Medical DAILY FOR Branch 7 DAYS THEN 1 TABLET FOR 7 DAYS predniSONE Yes TAKE 1 Unive rs 20 mg 8-26 TABLET BY ity of tablet 00:00: [facility] TWICE Medical DAILY FOR Branch 7 DAYS THEN 1 TABLET FOR 7 DAYS predniSONE Yes TAKE 1 Unive rs 20 mg 8-26 TABLET BY ity of tablet 00:00: [facility] TWICE Medical DAILY FOR Branch 7 DAYS THEN 1 TABLET FOR 7 DAYS predniSONE Yes TAKE 1 Unive rs 20 mg 8-26 TABLET BY ity of tablet 00:00: [facility] 00 TWICE Medical DAILY FOR Branch 7 DAYS THEN 1 TABLET FOR 7 DAYS predniSONE 2020-0 2- No TAKE 1 Univ ers 20 mg 8-26 11-14 TABLET BY ity of tablet 00:00: 00:00 [facility] 00 :00 TWICE Medical DAILY FOR Branch 7 DAYS THEN 1 TABLET FOR 7 DAYS predniSONE 2020-0 2022- No TAKE 1 Univ ers 20 mg 8-26 11-14 TABLET BY ity of tablet 00:00: 00:00 [facility] 00 :00 TWICE Medical DAILY FOR Branch 7 DAYS THEN 1 TABLET FOR 7 DAYS benzonatate Yes TAKE 1 Univ ers 100 mg 8-25 CAPSULE BY ity of capsule 00:00: [facility] 00 THREE Medical TIMES [place] DAILY NEEDED FOR COUGH fluconazole Yes 200mg Take 200 U nivers 200 mg 8-25 mg by ity of tablet 00:00: mouth [place] 00 every Medical morning. Branch POLY-IRON Yes Take by Unive rs 150 mg iron 8-25 mouth ity of capsule 00:00: daily. [place] [address] Medical Branch LIDOCAINE Yes TAKE 15ML Uni vers VISCOUS 2 % 8-25 BY MOUTH ity of solution 00:00: THREE TIMES Medical DAILY Branch NEEDED FOR SORE THROAT benzonatate 2020-0 Yes TAKE 1 Univ ers 100 mg 8-25 CAPSULE BY ity of capsule 00:00: MOUTH [place] THREE Medical TIMES Branch DAILY NEEDED FOR COUGH fluconazole 2020-0 Yes 200mg Take 200 U nivers 200 mg 8-25 mg by ity of tablet 00:00: mouth [place] every Medical morning. Branch POLY-IRON 2020-0 Yes Take by Unive rs 150 mg iron 8-25 mouth ity of capsule 00:00: daily. [place] [facility] LIDOCAINE 2020-0 Yes TAKE 15ML Uni vers VISCOUS 2 % 8-25 BY MOUTH ity of solution 00:00: [place] TIMES Medical DAILY Branch NEEDED FOR SORE THROAT benzonatate 2020-0 Yes TAKE 1 Univ ers 100 mg 8-25 CAPSULE BY ity of capsule 00:00: MOUTH [place] THREE Medical TIMES Branch DAILY NEEDED FOR COUGH fluconazole 2020-0 Yes 200mg Take 200 U nivers 200 mg 8-25 mg by ity of tablet 00:00: mouth [place] every Medical morning. Branch POLY-IRON 2020-0 Yes Take by Unive rs 150 mg iron 8-25 mouth ity of capsule 00:00: daily. [place] [facility] LIDOCAINE 2020-0 Yes TAKE 15ML Uni vers VISCOUS 2 % 8-25 BY MOUTH ity of solution 00:00: THREE [place] TIMES Medical DAILY Branch NEEDED FOR SORE THROAT benzonatate 2020-0 Yes TAKE 1 Univ ers 100 mg 8-25 CAPSULE BY ity of capsule 00:00: MOUTH [place] THREE Medical TIMES Branch DAILY NEEDED FOR COUGH fluconazole 2020-0 Yes 200mg Take 200 U nivers 200 mg 8-25 mg by ity of tablet 00:00: mouth [place] every Medical morning. Branch POLY-IRON 2020-0 Yes Take by Unive rs 150 mg iron 8-25 mouth ity of capsule 00:00: daily. [place] [facility] LIDOCAINE 2020-0 Yes TAKE 15ML Uni vers VISCOUS 2 % 8-25 BY MOUTH ity of solution 00:00: THREE [place] TIMES Medical DAILY Branch NEEDED FOR SORE THROAT benzonatate 2020-0 Yes TAKE 1 Univ ers 100 mg 8-25 CAPSULE BY ity of capsule 00:00: MOUTH [place] THREE Medical TIMES Branch DAILY NEEDED FOR COUGH fluconazole 2020-0 Yes 200mg Take 200 U nivers 200 mg 8-25 mg by ity of tablet 00:00: mouth [place] every Medical morning. Branch POLY-IRON 2020-0 Yes Take by Unive rs 150 mg iron 8-25 mouth ity of capsule 00:00: daily. [place] [facility] LIDOCAINE 2020-0 Yes TAKE 15ML Uni vers VISCOUS 2 % 8-25 BY MOUTH ity of solution 00:00: [place] TIMES Medical DAILY Branch NEEDED FOR SORE THROAT benzonatate 2020-0 Yes TAKE 1 Univ ers 100 mg 8-25 CAPSULE BY ity of capsule 00:00: MOUTH [place] THREE Medical TIMES Branch DAILY NEEDED FOR COUGH fluconazole 2020-0 Yes 200mg Take 200 U nivers 200 mg 8-25 mg by ity of tablet 00:00: mouth [place] every Medical morning. Branch POLY-IRON 2020-0 Yes Take by Unive rs 150 mg iron 8-25 mouth ity of capsule 00:00: daily. [place] [facility] LIDOCAINE 2020-0 Yes TAKE 15ML Uni vers VISCOUS 2 % 8-25 BY MOUTH ity of solution 00:00: [place] Medical DAILY Branch NEEDED FOR SORE THROAT benzonatate 2020-0 Yes TAKE 1 Univ ers 100 mg 8-25 CAPSULE BY ity of capsule 00:00: MOUTH [place] Medical TIMES Branch DAILY NEEDED FOR COUGH fluconazole 2020-0 Yes 200mg Take 200 U nivers 200 mg 8-25 mg by ity of tablet 00:00: mouth [place] every Medical morning. Branch POLY-IRON 2020-0 Yes Take by Unive rs 150 mg iron 8-25 mouth ity of capsule 00:00: daily. [place] [facility] LIDOCAINE 2020-0 Yes TAKE 15ML Uni vers VISCOUS 2 % 8-25 BY MOUTH ity of solution 00:00: THREE [place] TIMES Medical DAILY Branch NEEDED FOR SORE THROAT benzonatate 2020-0 Yes TAKE 1 Univ ers 100 mg 8-25 CAPSULE BY ity of capsule 00:00: MOUTH [place] THREE Medical TIMES Branch DAILY NEEDED FOR COUGH fluconazole 2020-0 Yes 200mg Take 200 U nivers 200 mg 8-25 mg by ity of tablet 00:00: mouth [place] [address] every Medical morning. Branch POLY-IRON 2020-0 Yes Take by Unive rs 150 mg iron 8-25 mouth ity of capsule 00:00: daily. [place] [facility] LIDOCAINE 2020-0 Yes TAKE 15ML Uni vers VISCOUS 2 % 8-25 BY MOUTH ity of solution 00:00: THREE [place] TIMES Medical DAILY Branch NEEDED FOR SORE THROAT benzonatate 2020-0 Yes TAKE 1 Univ ers 100 mg 8-25 CAPSULE BY ity of capsule 00:00: MOUTH [place] THREE Medical TIMES Branch DAILY NEEDED FOR COUGH fluconazole 2020-0 Yes 200mg Take 200 U nivers 200 mg 8-25 mg by ity of tablet 00:00: mouth [place] every Medical morning. Branch POLY-IRON 2020-0 Yes Take by Unive rs 150 mg iron 8-25 mouth ity of capsule 00:00: daily. [place] [facility] LIDOCAINE 2020-0 Yes TAKE 15ML Uni vers VISCOUS 2 % 8-25 BY MOUTH ity of solution 00:00: [place] Medical DAILY Branch NEEDED FOR SORE THROAT benzonatate 2020-0 Yes TAKE 1 Univ ers 100 mg 8-25 CAPSULE BY ity of capsule 00:00: MOUTH [place] THREE Medical TIMES Branch DAILY NEEDED FOR COUGH fluconazole 2020-0 Yes 200mg Take 200 U nivers 200 mg 8-25 mg by ity of tablet 00:00: mouth [place] every Medical morning. Branch POLY-IRON 2020-0 Yes Take by Unive rs 150 mg iron 8-25 mouth ity of capsule 00:00: daily. [place] [facility] LIDOCAINE 2020-0 Yes TAKE 15ML Uni vers VISCOUS 2 % 8-25 BY MOUTH ity of solution 00:00: THREE [place] TIMES Medical DAILY Branch NEEDED FOR SORE THROAT benzonatate 2020-0 Yes TAKE 1 Univ ers 100 mg 8-25 CAPSULE BY ity of capsule 00:00: MOUTH [place] [address] THREE Medical TIMES Branch DAILY NEEDED FOR COUGH fluconazole 2020-0 Yes 200mg Take 200 U nivers 200 mg 8-25 mg by ity of tablet 00:00: mouth [place] [address] every Medical morning. Branch POLY-IRON 2020-0 Yes Take by Unive rs 150 mg iron 8-25 mouth ity of capsule 00:00: daily. [place] [facility] LIDOCAINE 2020-0 Yes TAKE 15ML Uni vers VISCOUS 2 % 8-25 BY MOUTH ity of solution 00:00: THREE TIMES Medical DAILY Branch NEEDED FOR SORE THROAT benzonatate 2020-0 Yes TAKE 1 Univ ers 100 mg 8-25 CAPSULE BY ity of capsule 00:00: MOUTH [place] THREE Medical TIMES Branch DAILY NEEDED FOR COUGH fluconazole 2020-0 Yes 200mg Take 200 U nivers 200 mg 8-25 mg by ity of tablet 00:00: mouth [place] every Medical morning. Branch POLY-IRON 2020-0 Yes Take by Unive rs 150 mg iron 8-25 mouth ity of capsule 00:00: daily. [place] [facility] LIDOCAINE 2020-0 Yes TAKE 15ML Uni vers VISCOUS 2 % 8-25 BY MOUTH ity of solution 00:00: [place] TIMES Medical DAILY Branch NEEDED FOR SORE THROAT benzonatate 2020-0 Yes TAKE 1 Univ ers 100 mg 8-25 CAPSULE BY ity of capsule 00:00: MOUTH [place] THREE Medical TIMES Branch DAILY NEEDED FOR COUGH fluconazole 2020-0 Yes 200mg Take 200 U nivers 200 mg 8-25 mg by ity of tablet 00:00: mouth [place] every Medical morning. Branch POLY-IRON 2020-0 Yes Take by Unive rs 150 mg iron 8-25 mouth ity of capsule 00:00: daily. [place] [facility] LIDOCAINE 2020-0 Yes TAKE 15ML Uni vers VISCOUS 2 % 8-25 BY MOUTH ity of solution 00:00: [place] TIMES Medical DAILY Branch NEEDED FOR SORE THROAT benzonatate 2020-0 Yes TAKE 1 Univ ers 100 mg 8-25 CAPSULE BY ity of capsule 00:00: MOUTH [place] THREE Medical TIMES Branch DAILY NEEDED FOR COUGH fluconazole 2020-0 Yes 200mg Take 200 U nivers 200 mg 8-25 mg by ity of tablet 00:00: [facility] every Medical morning. Branch POLY-IRON 2020-0 Yes Take by Unive rs 150 mg iron 8-25 mouth ity of capsule 00:00: daily. [place] [facility] LIDOCAINE 1-0 Yes TAKE 15ML Uni vers VISCOUS 2 % 8-25 BY MOUTH ity of solution 00:00: THREE [place] TIMES Medical DAILY Branch NEEDED FOR SORE THROAT benzonatate 2020-0 Yes TAKE 1 Univ ers 100 mg 8-25 CAPSULE BY ity of capsule 00:00: MOUTH [place] THREE Medical TIMES Branch DAILY NEEDED FOR COUGH fluconazole 2020-0 Yes 200mg Take 200 U nivers 200 mg 8-25 mg by ity of tablet 00:00: [facility] 00 every Medical morning. Branch POLY-IRON Yes Take by Unive rs 150 mg iron 8-25 mouth ity of capsule 00:00: daily. [place] [address] Medical Branch LIDOCAINE 0 Yes TAKE 15ML Uni vers VISCOUS 2 % 8-25 BY MOUTH ity of solution 00:00: THREE [place] 00 TIMES Medical DAILY Branch NEEDED FOR SORE THROAT LIDOCAINE 0 Yes TAKE 15ML Uni vers VISCOUS 2 % 8-25 BY MOUTH ity of solution 00:00: THREE [place] TIMES Medical DAILY Branch NEEDED FOR SORE THROAT LIDOCAINE 0 Yes TAKE 15ML Uni vers VISCOUS 2 % 8-25 BY MOUTH ity of solution 00:00: [facility] TIMES Medical DAILY Branch NEEDED FOR SORE THROAT LIDOCAINE 0 Yes TAKE 15ML Uni vers VISCOUS 2 % 8-25 BY MOUTH ity of solution 00:00: [facility] TIMES Medical DAILY Branch NEEDED FOR SORE THROAT LIDOCAINE 0 Yes TAKE 15ML Uni vers VISCOUS 2 % 8-25 BY MOUTH ity of solution 00:00: THREE [place] 00 TIMES Medical DAILY Branch NEEDED FOR SORE THROAT LIDOCAINE 0 Yes TAKE 15ML Uni vers VISCOUS 2 % 8-25 BY MOUTH ity of solution 00:00: [facility] TIMES Medical DAILY Branch NEEDED FOR SORE THROAT LIDOCAINE 0 Yes TAKE 15ML Uni vers VISCOUS 2 % 8-25 BY MOUTH ity of solution 00:00: [facility] TIMES Medical DAILY Branch NEEDED FOR SORE THROAT LIDOCAINE 0 Yes TAKE 15ML Uni vers VISCOUS 2 % 8-25 BY MOUTH ity of solution 00:00: THREE [place] TIMES Medical DAILY Branch NEEDED FOR SORE THROAT LIDOCAINE 0 Yes TAKE 15ML Uni vers VISCOUS 2 % 8-25 BY MOUTH ity of solution 00:00: [facility] TIMES Medical DAILY Branch NEEDED FOR SORE THROAT LIDOCAINE 0 Yes TAKE 15ML Uni vers VISCOUS 2 % 8-25 BY MOUTH ity of solution 00:00: [facility] 00 TIMES Medical DAILY Branch NEEDED FOR SORE THROAT benzonatate 2020-0 3- No TAKE 1 Uni vers 100 mg 8-25 - CAPSULE BY ity of capsule 00:00: 00:00 MOUTH [place] 00 :00 THREE Medical TIMES Branch DAILY NEEDED FOR COUGH fluconazole 2022- No 200mg Take 1 Un merry 200 mg 05-16 tablet by ity of tablet 00:00: 00:00 mouth [place] 00 :00 every Medical morning. Branch POLY-IRON 2022- No Take by [facility] ers 150 mg iron 05-16 mouth ity of capsule 00:00: 00:00 daily. [place] 00 :00 Medical Branch benzonatate 2022- No TAKE 1 Uni vers 100 mg 05-16 CAPSULE BY ity of capsule 00:00: 00:00 MOUTH [place] 00 :00 THREE Medical TIMES Branch DAILY NEEDED FOR COUGH fluconazole 2022- No 200mg Take 1 Un merry 200 mg 05-16 tablet by ity of tablet 00:00: 00:00 mouth [place] 00 :00 every Medical morning. Branch POLY-IRON 2022- No Take by [facility] ers 150 mg iron 05-16 mouth ity of capsule 00:00: 00:00 daily. [place] 00 :00 Medical Branch acetaZOLAMI Yes 250mg Take 250 U nivers DE 250 mg 7-28 mg by ity of tablet 00:00: mouth 2 00 (two) Medical times Branch daily. ELIQUIS 5 Yes 5mg Take 5 mg Uni vers mg tablet 7-28 by mouth 2 ity of 00:00: (two) [place] 00 times Medical daily. Branch docusate Yes [...] [place] 00 TWICE Medical DAILY. Branch nystatin 2020- Yes SHAKE [facility] 100,000 7-28 LIQUID AND [...] [place] 00 TWICE Medical DAILY. Branch nystatin 2020- Yes SHAKE [facility] 100,000 7-28 LIQUID AND [...] capsule Branch acetaZOLAMI 0 Yes 250mg Take 1 Uni vers DE 250 mg 7-28 tablet by ity o f tablet 00:00: mouth in [place] 00 the Medical morning Branch and 1 tablet in the evening. ELIQUIS 5 2020-0 Yes 5mg Take 1 Univer s mg tablet 7-28 tablet by ity o f 00:00: mouth in [place] 00 the Medical morning Branch and 1 tablet in the evening. acetaZOLAMI Yes 250mg Take 1 Uni vers DE 250 mg 7-28 tablet by ity o f tablet 00:00: mouth in [place] 00 the Medical morning Branch and 1 tablet in the evening. ELIQUIS 5 2020-0 Yes 5mg Take 1 Univer s mg tablet 7-28 tablet by ity o f 00:00: mouth in [place] 00 the Medical morning Branch and 1 tablet in the evening. acetaZOLAMI 2020-0 Yes 250mg Take 1 Uni vers DE 250 mg 7-28 tablet by ity o f tablet 00:00: mouth in [place] 00 the Medical morning Branch and 1 tablet in the evening. ELIQUIS 5 2020-0 Yes 5mg Take 1 Univer s mg tablet 7-28 tablet by ity o f 00:00: mouth in [place] 00 the Medical morning Branch and 1 tablet in the evening. acetaZOLAMI 2021-0 Yes 250mg Take 1 Uni vers DE 250 mg 7-28 tablet by ity o f tablet 00:00: mouth in [place] 00 the Medical morning Branch and 1 tablet in the evening. ELIQUIS 5 2021-0 Yes 5mg Take 1 Univer s mg tablet 7-28 tablet by ity o f 00:00: mouth in [place] 00 the Medical morning Branch and 1 tablet in the evening. acetaZOLAMI 2021-0 Yes 250mg Take 1 Uni vers DE 250 mg 7-28 tablet by ity o f tablet 00:00: mouth in [place] 00 the Medical morning Branch and 1 tablet in the evening. ELIQUIS 5 2021-0 Yes 5mg Take 1 Univer s mg tablet 7-28 tablet by ity o f 00:00: mouth in [place] 00 the Medical morning Branch and 1 tablet in the evening. acetaZOLAMI 2021-0 Yes 250mg Take 1 Uni vers DE 250 mg 7-28 tablet by ity o f tablet 00:00: mouth in [place] 00 the Medical morning Branch and 1 tablet in the evening. ELIQUIS 5 2021-0 Yes 5mg Take 1 Univer s mg tablet 7-28 tablet by ity o f 00:00: mouth in [place] 00 the Medical morning Branch and 1 tablet in the evening. acetaZOLAMI 2021-0 Yes 250mg Take 1 Uni vers DE 250 mg 7-28 tablet by ity o f tablet 00:00: mouth in [place] 00 the Medical morning Branch and 1 tablet in the evening. ELIQUIS 5 2021-0 Yes 5mg Take 1 Univer s mg tablet 7-28 tablet by ity o f 00:00: mouth in [place] 00 the Medical morning Branch and 1 tablet in the evening. acetaZOLAMI 2021-0 Yes 250mg Take 1 Uni vers DE 250 mg 7-28 tablet by ity o f tablet 00:00: mouth in [place] 00 the Medical morning Branch and 1 tablet in the evening. ELIQUIS 5 2021-0 Yes 5mg Take 1 Univer s mg tablet 7-28 tablet by ity o f 00:00: mouth in [place] 00 the Medical morning Branch and 1 tablet in the evening. acetaZOLAMI 2021-0 Yes 250mg Take 1 Uni vers DE 250 mg 7-28 tablet by ity o f tablet 00:00: mouth in [place] 00 the Medical morning Branch and 1 tablet in the evening. ELIQUIS 5 Yes 5mg Take 1 Univer s mg tablet 04-18 tablet by ity o f 00:00: mouth in [place] [address] the Medical morning Branch and 1 tablet in the evening. docusate 2022- No TAKE 2 Univer s 100 mg 04-18- CAPSULES ity of capsule 00:00: 00:00 BY MOUTH [place] 00 :00 TWICE Medical DAILY. Branch nystatin 2022- No SHAKE [facility] 100,000 04-18- LIQUID AND ity o f unit/mL 00:00: [...] ity of capsule 00:00: 00:00 BY MOUTH [place] 00 :00 TWICE Medical DAILY. Branch nystatin 2022- No SHAKE [facility] 100,000 04-18-07 LIQUID AND ity o f unit/mL 00:00: 00:00 TAKE 5 ML [place] suspension 00 :00 BY MOUTH Medic al THREE Branch TIMES DAILY zinc 2020-2022- No 220mg Take 220 [facility] sulfate 50 [...] MG 4-02 20 MG 00:00: 00 clonazePAM Yes .5mg Take 0.5 Uni vers [...] by ity of tablet 16:35: mouth as [place] [address] needed. Medical Branch umeclidiniu Yes Inhale. Uni [...] by mouth ity of tablet 16:35: at [place] [address] bedtime. Medical Branch clonazePAM Yes .5mg Take 0.5 Uni vers 0.5 mg 2-25 mg by ity of tablet 16:35: mouth as [place] needed. Medical Branch umeclidiniu 0 Yes Inhale. [...] by mouth ity of tablet 16:35: at [place] [address] bedtime. Medical Branch clonazePAM 2020-0 Yes .5mg [...] as [place] 55 needed. Medical Branch umeclidiniu 2021-0 Yes Inhale. Uni vers m-vilantero 2-25 ity [...] by mouth ity of tablet 16:35: at [place] [address] bedtime. Medical Branch clonazePAM Yes .5mg Take [...] Wheezing solution or Shortness of Breath. albuterol 2021-0 Yes 2{puff} Inhale 2 U nivers (PROAIR [...] 16:35: at [place] 55 bedtime. Medical Branch guaiFENesin Yes [id number] 100mg Take 5 mL [facility] 100 mg/5 mL 2-25 by mouth ity of solution 00:00: every 4 [place] 00 (four) Medical hours as Branch needed for Cough. furosemide 0 Yes [id number] 40mg Take 2 [facility] 20 mg 2-25 tablets by ity of tablet 00:00: mouth [place] 00 daily. Medical Branch guaiFENesin 0 Yes [id number] 100mg Take 5 mL [facility] 100 mg/5 mL 2-25 by mouth ity of solution 00:00: every 4 [place] 00 (four) Medical hours as Branch needed for Cough. furosemide 0 Yes [id number] 40mg Take 2 [facility] 20 mg 2-25 tablets by ity of tablet 00:00: mouth [place] 00 daily. Medical Branch guaiFENesin 0 Yes [id number] 100mg Take 5 mL [facility] 100 mg/5 mL 2-25 by mouth ity of solution 00:00: every 4 [place] 00 (four) Medical hours as Branch needed for Cough. furosemide 2020-0 Yes [id number] 40mg Take 2 [facility] 20 mg 2-25 tablets by ity of tablet 00:00: mouth [place] 00 daily. Medical Branch guaiFENesin 0 Yes [id number] 100mg Take 5 mL [facility] 100 mg/5 mL 2-25 by mouth ity of solution 00:00: every 4 [place] 00 (four) Medical hours as Branch needed for Cough. furosemide 2020-0 Yes [id number] 40mg Take 2 [facility] 20 mg 2-25 tablets by ity of tablet 00:00: mouth [place] 00 daily. Medical Branch guaiFENesin 2020-0 Yes [id number] 100mg Take 5 mL [facility] 100 mg/5 mL 2-25 by mouth ity of solution 00:00: every 4 [place] 00 (four) Medical hours as Branch needed for Cough. furosemide 2020-0 Yes [id number] 40mg Take 2 [facility] 20 mg 2-25 tablets by ity of tablet 00:00: mouth [place] 00 daily. Medical Branch guaiFENesin 2020-0 Yes [id number] 100mg Take 5 mL [facility] 100 mg/5 mL 2-25 by mouth ity of solution 00:00: every 4 [place] 00 (four) Medical hours as Branch needed for Cough. furosemide 2020-0 Yes [id number] 40mg Take 2 [facility] 20 mg 2-25 tablets by ity of tablet 00:00: mouth [place] 00 daily. Medical Branch guaiFENesin 2020-0 Yes [id number] 100mg Take 5 mL [facility] 100 mg/5 mL 2-25 by mouth ity of solution 00:00: every 4 [place] 00 (four) Medical hours as Branch needed for Cough. furosemide 2020-0 Yes [id number] 40mg Take 2 [facility] 20 mg 2-25 tablets by ity of tablet 00:00: mouth [place] 00 daily. Medical Branch guaiFENesin 2020-0 Yes [id number] 100mg Take 5 mL [facility] 100 mg/5 mL 2-25 by mouth ity of solution 00:00: every 4 [place] 00 (four) Medical hours as Branch needed for Cough. furosemide 2020-0 Yes [id number] 40mg Take 2 [facility] 20 mg 2-25 tablets by ity of tablet 00:00: mouth [place] 00 daily. Medical Branch guaiFENesin 2020-0 Yes [id number] 100mg Take 5 mL [facility] 100 mg/5 mL 2-25 by mouth ity of solution 00:00: every 4 [place] 00 (four) Medical hours as Branch needed for Cough. furosemide 2020-0 Yes [id number] 40mg Take 2 [facility] 20 mg 2-25 tablets by ity of tablet 00:00: mouth [place] 00 daily. Medical Branch guaiFENesin 2020-0 Yes [id number] 100mg Take 5 mL [facility] 100 mg/5 mL 2-25 by mouth ity of solution 00:00: every 4 [place] 00 (four) Medical hours as Branch needed for Cough. furosemide 2020-0 Yes [id number] 40mg Take 2 [facility] 20 mg 2-25 tablets by ity of tablet 00:00: mouth [place] 00 daily. Medical Branch guaiFENesin 2020-0 Yes [id number] 100mg Take 5 mL [facility] 100 mg/5 mL 2-25 by mouth ity of solution 00:00: every 4 [place] 00 (four) Medical hours as Branch needed for Cough. furosemide 2020-0 Yes [id number] 40mg Take 2 [facility] 20 mg 2-25 tablets by ity of tablet 00:00: mouth [place] 00 daily. Medical Branch guaiFENesin 2020-0 Yes [id number] 100mg Take 5 mL [facility] 100 mg/5 mL 2-25 by mouth ity of solution 00:00: every 4 [place] 00 (four) Medical hours as Branch needed for Cough. furosemide 2020-0 Yes [id number] 40mg Take 2 [facility] 20 mg 2-25 tablets by ity of tablet 00:00: mouth [place] 00 daily. Medical Branch guaiFENesin 2020-0 Yes [id number] 100mg Take 5 mL [facility] 100 mg/5 mL 2-25 by mouth ity of solution 00:00: every 4 [place] 00 (four) Medical hours as Branch needed for Cough. furosemide 2020-0 Yes [id number] 40mg Take 2 [facility] 20 mg 2-25 tablets by ity of tablet 00:00: mouth [place] 00 daily. Medical Branch guaiFENesin 2020-0 Yes [id number] 100mg Take 5 mL [facility] 100 mg/5 mL 2-25 by mouth ity of solution 00:00: every 4 [place] 00 (four) Medical hours as Branch needed for Cough. furosemide 2020-0 Yes [id number] 40mg Take 2 [facility] 20 mg 2-25 tablets by ity of tablet 00:00: mouth [place] 00 daily. Medical Branch guaiFENesin 2020-0 Yes [id number] 100mg Take 5 mL [facility] 100 mg/5 mL 2-25 by mouth ity of solution 00:00: every 4 [place] 00 (four) Medical hours as Branch needed for Cough. furosemide 2020-0 Yes [id number] 40mg Take 2 [facility] 20 mg 2-25 tablets by ity of tablet 00:00: mouth [place] 00 daily. Medical Branch furosemide 2020-0 Yes [id number] 40mg Take 2 [facility] 20 mg 2-25 tablets by ity of tablet 00:00: mouth [place] 00 daily. Medical Branch furosemide 2020-0 Yes [id number] 40mg Take 2 [facility] 20 mg 2-25 tablets by ity of tablet 00:00: mouth [place] 00 daily. Medical Branch furosemide 2020-0 Yes [id number] 40mg Take 2 [facility] 20 mg 2-25 tablets by ity of tablet 00:00: mouth [place] 00 daily. Medical Branch furosemide 2020-0 Yes [id number] 40mg Take 2 [facility] 20 mg 2-25 tablets by ity of tablet 00:00: mouth [place] 00 daily. Medical Branch furosemide 2020-0 Yes [id number] 40mg Take 2 [facility] 20 mg 2-25 tablets by ity of tablet 00:00: mouth [place] 00 daily. Medical Branch furosemide 2020-0 Yes [id number] 40mg Take 2 [facility] 20 mg 2-25 tablets by ity of tablet 00:00: mouth [place] 00 daily. Medical Branch furosemide 2020-0 Yes [id number] 40mg Take 2 [facility] 20 mg 2-25 tablets by ity of tablet 00:00: mouth [place] 00 daily. Medical Branch furosemide 2020-0 Yes [id number] 40mg Take 2 [facility] 20 mg 2-25 tablets by ity of tablet 00:00: mouth [place] 00 daily. Medical Branch furosemide 2020-0 Yes [id number] 40mg Take 2 [facility] 20 mg 2-25 tablets by ity of tablet 00:00: mouth [place] 00 daily. Medical Branch guaiFENesin 2020-0 2023- No [id number] 100mg Take 5 mL [facility] 100 mg/5 mL 2-25 -07 by mouth ity of solution 00:00: 00:00 every 4 [place] 00 :00 (four) Medical hours as Branch needed for Cough. guaiFENesin 2020-0 3- No [id number] 100mg Take 5 mL [facility] 100 mg/5 mL 2-25 03-07 by mouth ity of solution 00:00: 00:00 every 4 [place] 00 :00 (four) Medical hours as Branch needed for Cough. pantoprazol 2020-0 Yes 40mg Take 1 Univ [...] 00:00: mouth 00 daily. Medical Branch pantoprazol 2021-0 2023- No 40mg Take 1 Uni vers e 40 mg EC 11-12 tablet by ity of tablet 00:00: 00:00 mouth [place] 00 :00 daily. Medical Branch pantoprazol 2020-0 2023- No 40mg Take 1 Uni vers e 40 mg EC 11-12 tablet by ity of tablet 00:00: 00:00 mouth [place] 00 :00 daily. Medical Branch gabapentin 2021-0 Yes 300mg Take 1 Univ ers 300 mg 2-20 capsule by ity of capsule 00:00: mouth 2 [place] (two) Medical times Branch daily. melatonin 3 2020-0 Yes 6mg Take 2 Univ ers mg tablet 2-20 tablets by ity of 00:00: mouth at [place] [address] bedtime. Medical Branch gabapentin 1-0 Yes 300mg Take 1 Univ ers 300 mg 2-20 capsule by ity of capsule 00:00: mouth [place] ([facility]) Medical times Branch daily. melatonin 3 2020-0 Yes 6mg Take 2 Univ ers mg tablet 2-20 tablets by ity of 00:00: mouth at [place] [address] bedtime. Medical Branch gabapentin 2020-0 Yes 300mg Take 1 Univ ers 300 mg 2-20 capsule by ity of capsule 00:00: mouth [place] ([facility]) Medical times Branch daily. melatonin 3 2020-0 Yes 6mg Take 2 Univ ers mg tablet 2-20 tablets by ity of 00:00: mouth at [place] [address] bedtime. Medical Branch gabapentin 1-0 Yes 300mg Take 1 Univ ers 300 mg 2-20 capsule by ity of capsule 00:00: mouth [place] (two) Medical times Branch daily. melatonin 3 1-0 Yes 6mg Take 2 Univ ers mg tablet 2-20 tablets by ity of 00:00: mouth at [place] [address] bedtime. Medical Branch gabapentin 2021-0 Yes 300mg Take 1 Univ ers 300 mg 2-20 capsule by ity of capsule 00:00: mouth [place] (two) Medical times Branch daily. melatonin 3 1-0 Yes 6mg Take 2 Univ ers mg tablet 2-20 tablets by ity of 00:00: mouth at [place] [address] bedtime. Medical Branch gabapentin 2021-0 Yes 300mg Take 1 Univ ers 300 mg 2-20 capsule by ity of capsule 00:00: mouth 2 (two) Medical times Branch daily. melatonin 3 2020-0 Yes 6mg Take 2 Univ ers mg tablet 2-20 tablets by ity of 00:00: mouth at [place] [address] bedtime. Medical Branch gabapentin 2021-0 Yes 300mg Take 1 Univ ers 300 mg 2-20 capsule by ity of capsule 00:00: mouth 2 () Medical times Branch daily. melatonin 3 2020-0 Yes 6mg Take 2 Univ ers mg tablet 2-20 tablets by ity of 00:00: mouth at [place] [address] bedtime. Medical Branch gabapentin 2020-0 Yes 300mg Take 1 Univ ers 300 mg 2-20 capsule by ity of capsule 00:00: mouth 2 [place] () Medical times Branch daily. melatonin 3 2020-0 Yes 6mg Take 2 Univ ers mg tablet 2-20 tablets by ity of 00:00: mouth at [place] [address] bedtime. Medical Branch gabapentin 2020-0 Yes 300mg Take 1 Univ ers 300 mg 2-20 capsule by ity of capsule 00:00: mouth 2 [place] ([facility]) Medical times Branch daily. melatonin 3 2020-0 Yes 6mg Take 2 Univ ers mg tablet 2-20 tablets by ity of 00:00: mouth at [place] [address] bedtime. Medical Branch gabapentin 2020-0 Yes 300mg Take 1 Univ ers 300 mg 2-20 capsule by ity of capsule 00:00: mouth 2 [place] ([facility]) Medical times Branch daily. melatonin 3 2020-0 Yes 6mg Take 2 Univ ers mg tablet 2-20 tablets by ity of 00:00: mouth at [place] [address] bedtime. Medical Branch gabapentin 1-0 Yes 300mg Take 1 Univ ers 300 mg 2-20 capsule by ity of capsule 00:00: mouth 2 [place] (two) Medical times Branch daily. melatonin 3 1-0 Yes 6mg Take 2 Univ ers mg tablet 2-20 tablets by ity of 00:00: mouth at [place] [address] bedtime. Medical Branch gabapentin 2021-0 Yes 300mg Take 1 Univ ers 300 mg 2-20 capsule by ity of capsule 00:00: mouth 2 [place] (two) Medical times Branch daily. melatonin 3 1-0 Yes 6mg Take 2 Univ ers mg tablet 2-20 tablets by ity of 00:00: mouth at [place] [address] bedtime. Medical Branch gabapentin 2020-0 Yes 300mg Take 1 Univ ers 300 mg 2-20 capsule by ity of capsule 00:00: mouth 2 [place] (two) Medical times Branch daily. melatonin 3 2020-0 Yes 6mg Take 2 Univ ers mg tablet 2-20 tablets by ity of 00:00: mouth at [place] [address] bedtime. Medical Branch gabapentin 2020-0 Yes 300mg Take 1 Univ ers 300 mg 2-20 capsule by ity of capsule 00:00: mouth 2 [place] (two) Medical times Branch daily. melatonin 3 2020-0 Yes 6mg Take 2 Univ ers mg tablet 2-20 tablets by ity of 00:00: mouth at [place] [address] bedtime. Medical Branch gabapentin 2020-0 Yes 300mg Take 1 Univ ers 300 mg 2-20 capsule by ity of capsule 00:00: mouth 2 [place] (two) Medical times Branch daily. melatonin 3 2020-0 Yes 6mg Take 2 Univ ers mg tablet 2-20 tablets by ity of 00:00: mouth at [place] [address] bedtime. Medical Branch melatonin 3 2020-0 Yes 6mg Take 2 Univ ers mg tablet 2-20 tablets by ity of 00:00: mouth at [place] [address] bedtime. Medical Branch melatonin 3 2020-0 Yes 6mg Take 2 Univ ers mg tablet 2-20 tablets by ity of 00:00: mouth at [place] [address] bedtime. Medical Branch melatonin 3 2020-0 Yes 6mg Take 2 Univ ers mg tablet 2-20 tablets by ity of 00:00: mouth at [place] [address] bedtime. Medical Branch melatonin 3 2020-0 Yes 6mg Take 2 Univ ers mg tablet 2-20 tablets by ity of 00:00: mouth at [place] [address] bedtime. Medical Branch melatonin 3 2020-0 Yes 6mg Take 2 Univ ers mg tablet 2-20 tablets by ity of 00:00: mouth at [place] [address] bedtime. Medical Branch melatonin 3 2020-0 Yes 6mg Take 2 Univ ers mg tablet 2-20 tablets by ity of 00:00: mouth at [place] [address] bedtime. Medical Branch melatonin 3 2020-0 Yes 6mg Take 2 Univ ers mg tablet 2-20 tablets by ity of 00:00: mouth at [place] [address] bedtime. Medical Branch melatonin 3 2020-0 Yes 6mg Take 2 Univ ers mg tablet 2-20 tablets by ity of 00:00: mouth at [place] 00 bedtime. Medical Branch melatonin 3 2020-0 Yes 6mg Take 2 Univ ers mg tablet 2-20 tablets by ity of 00:00: mouth at [place] 00 bedtime. Medical Branch gabapentin 2020-0 2023- No 300mg Take 1 Uni vers 300 mg 2-20 03-07 capsule by ity of capsule 00:00: 00:00 mouth 2 [place] 00 :00 (two) Medical times Branch daily. gabapentin 2020-0 2022- No 300mg Take 1 Uni vers 300 mg 2-20 03-07 capsule by ity of capsule 00:00: 00:00 mouth 2 [place] 00 :00 (two) Medical times Branch daily. fluticasone 2019-0 Yes 1{spray Use 1 Un merry propionate 6-24 } [place] in ity o f 50 00:00: each [place] mcg/actuati 00 nostril Medic al on nasal daily. Branch spray fluticasone 2018-0 Yes 1{spray Use 1 Un merry propionate 6-24 } [place] in ity o f 50 00:00: each [place] mcg/actuati 00 nostril Medic al on nasal daily. Branch spray fluticasone 2019-0 Yes 1{spray Use 1 Un merry propionate 6-24 } [place] in ity o f 50 00:00: each [place] mcg/actuati 00 nostril Medic al on nasal daily. Branch spray fluticasone 2019-0 Yes 1{spray Use 1 Un merry propionate 6-24 } [place] in ity o f 50 00:00: each [place] mcg/actuati 00 nostril Medic al on nasal daily. Branch spray fluticasone 2019-0 Yes 1{spray Use 1 Un merry propionate 6-24 } [place] in ity o f 50 00:00: each [place] mcg/actuati 00 nostril Medic al on nasal daily. Branch spray fluticasone 2019-0 Yes 1{spray Use 1 Un merry propionate 6-24 } [place] in ity o f 50 00:00: each [place] mcg/actuati 00 nostril Medic al on nasal daily. Branch spray fluticasone 2019-0 Yes 1{spray Use 1 Un merry propionate 6-24 } [place] in ity o f 50 00:00: each [place] mcg/actuati 00 nostril Medic al on nasal daily. Branch spray fluticasone 2019-0 Yes 1{spray Use 1 Un merry propionate 6-24 } [place] in ity o f 50 00:00: each [place] mcg/actuati 00 nostril Medic al on nasal daily. Branch spray fluticasone 2019-0 Yes 1{spray Use 1 Un merry propionate 6-24 } [place] in ity o f 50 00:00: each [place] mcg/actuati 00 nostril Medic al on nasal daily. Branch spray fluticasone 2019-0 Yes 1{spray Use 1 Un merry propionate 6-24 } [place] in ity o f 50 00:00: each [place] mcg/actuati 00 nostril Medic al on nasal daily. Branch spray fluticasone 2019-0 Yes 1{spray Use 1 Un merry propionate 6-24 } [place] in ity o f 50 00:00: each [place] mcg/actuati 00 nostril Medic al on nasal daily. Branch spray fluticasone 2018-0 Yes 1{spray Use 1 Un merry propionate 6-24 } [place] in ity o f 50 00:00: each [place] mcg/actuati 00 nostril Medic al on nasal daily. Branch spray fluticasone 2018-0 Yes 1{spray Use 1 Un merry propionate 6-24 } [place] in ity o f 50 00:00: each [place] mcg/actuati 00 nostril Medic al on nasal daily. Branch spray fluticasone 2019-0 Yes 1{spray Use 1 Un merry propionate 6-24 } [place] in ity o f 50 00:00: each [place] mcg/actuati 00 nostril Medic al on nasal daily. Branch spray fluticasone 2019-0 Yes 1{spray Use 1 Un merry propionate 6-24 } [place] in ity o f 50 00:00: each [place] mcg/actuati 00 nostril Medic al on nasal daily. Branch spray fluticasone 2019-0 Yes 1{spray Use 1 Un merry propionate 6-24 } [place] in ity o f 50 00:00: each [place] mcg/actuati 00 nostril Medic al on nasal daily. Branch spray fluticasone 2019-0 Yes 1{spray Use 1 Un merry propionate 6-24 } [place] in ity o f 50 00:00: each [place] mcg/actuati 00 nostril Medic al on nasal daily. Branch spray fluticasone 2019-0 Yes 1{spray Use 1 Un merry propionate 6-24 } [place] in ity o f 50 00:00: each [place] mcg/actuati 00 nostril Medic al on nasal daily. Branch spray fluticasone 2018-0 Yes 1{spray Use 1 Un merry propionate 6-24 } [place] in ity o f 50 00:00: each [place] mcg/actuati 00 nostril Medic al on nasal daily. Branch spray fluticasone 2018-0 Yes 1{spray Use 1 Un merry propionate 6-24 } [place] in ity o f 50 00:00: each [place] mcg/actuati 00 nostril Medic al on nasal daily. Branch spray fluticasone 2018-0 Yes 1{spray Use 1 Un merry propionate 6-24 } [place] in ity o f 50 00:00: each [place] mcg/actuati 00 nostril Medic al on nasal daily. Branch spray fluticasone 2018-0 Yes 1{spray Use 1 Un merry propionate 6-24 } [place] in ity o f 50 00:00: each [place] mcg/actuati 00 nostril Medic al on nasal daily. Branch spray fluticasone 2018-0 Yes 1{spray Use 1 Un merry propionate 6-24 } [place] in ity o f 50 00:00: each [place] mcg/actuati 00 nostril Medic al on nasal daily. Branch spray fluticasone 2018-0 Yes 1{spray Use 1 Un merry propionate 6-24 } [place] in ity o f 50 00:00: each [...] [place] drops 00 daily. [facility] Branch latanoprost Yes 1[drp] Place 1 U [...] pirit one) one) 00:00: - [facility] [address] [facility] [place] [facility] 2018-0 No 40mg Common (Triamcinol (Triamcinol 4-25 S pirit one) one) 00:00: - [facility] 2018-0 No 40mg Common (Triamcinol (Triamcinol 4-25 S pirit one) one) 00:00: - [facility] 2018-0 No 40mg Common (Triamcinol (Triamcinol 4-25 S pirit one) one) 00:00: - [facility] 2018-0 No 40mg Common (Triamcinol (Triamcinol 4-25 S pirit one) one) 00:00: - [facility] 2018-0 No 40mg Common (Triamcinol (Triamcinol 4-25 S pirit one) one) 00:00: - [facility] 2018-0 No 40mg Common (Triamcinol (Triamcinol 4-25 S pirit one) one) 00:00: - [facility] 00 [facility] azithromyci 2017-0 Yes 250mg QD [...] daily Take by mouth as directed.. azithromyci 2017- Yes 250mg QD Take 1 [...] 2023-01-14 122 mm[Hg] University of pressure 18:20:00 [facility] Diastolic blood 2023-01-14 70 mm[Hg] University o f pressure 18:20:00 [facility] Heart rate 2023-01-14 50 /min University of 18:20:00 [facility] Body height 2023-01-14 175.3 cm University of 18:20:00 [facility] Body weight 2023-01-14 133.584 kg University of 18:20:00 [facility] BMI 2023-01-14 43.49 kg/m2 University of 18:20:00 [facility] Oxygen saturation 2023-01-14 89 /min on personal O2 Universi of in Arterial blood 18:20:00 [facility] by Pulse oximetry [place] Systolic blood 2022-11-26 148 mm[Hg] University of pressure 21:03:00 [facility] Diastolic blood 2022-11-26 87 mm[Hg] University o f pressure 21:03:00 [facility] Heart rate 2022-11-26 87 /min University 21:03:00 [facility] Body height 2022-11-26 175.3 cm University of 21:03:00 [facility] Body weight 2022-11-26 133.358 kg University of 21:03:00 [facility] BMI 2022-11-26 43.42 kg/m2 University of 21:03:00 [facility] Oxygen saturation 2022-11-26 88 /min on oxygen tank [facility] in Arterial blood 21:03:00 [facility] by Pulse oximetry Branch height 2022-09-11 69 [in_i] [facility] - 13:20:00 [facility] weight 2022-09-11 284 [lb_av] [facility] - 13:20:00 [facility] bmi 2022-09-11 41.93 kg/m2 [facility] - 13:20:00 [facility] oximetry 2022-09-11 94 % [facility] - 13:20:00 [facility] Systolic blood 2022-08-13 158 mm[Hg] University of pressure 20:06:00 [facility] Diastolic blood 2022-08-13 100 mm[Hg] University o f pressure 20:06:00 [facility] Heart rate 2022-08-13 89 /min University of 20:06:00 [facility] Respiratory rate 2022-08-13 16 /min University of 20:06:00 [facility] Body height 2022-08-13 175.3 cm University of 20:06:00 [facility] Body weight 2022-08-13 130.636 kg University of 20:06:00 [facility] BMI 2022-08-13 42.53 kg/m2 University of 20:06:00 [facility] Oxygen saturation 2022-08-13 87 /min [facility] in Arterial blood 20:06:00 [facility] by Pulse oximetry Branch Systolic blood 2022-08-05 111 mm[Hg] University of pressure 17:15:00 [facility] Diastolic blood 2022-08-05 73 mm[Hg] University o f pressure 17:15:00 [facility] Heart rate 2022-08-05 97 /min University of 17:15:00 [facility] Respiratory rate 2022-08-05 26 /min University of 17:15:00 [facility] Body height 2022-08-05 175.3 cm University of 17:15:00 [facility] Body weight 2022-08-05 130.636 kg University of 17:15:00 [facility] BMI 2022-08-05 42.53 kg/m2 [facility] 17:15:00 [facility] Oxygen saturation 2022-08-05 86 /min [facility] Arterial blood 17:15:00 [facility] by Pulse oximetry Branch Systolic blood 2022-06-07 153 mm[Hg] University of pressure 18:07:00 [facility] Diastolic blood 2022-06-07 97 mm[Hg] [place] o f pressure 18:07:00 [facility] Heart rate 2022-06-07 96 /min [facility] 18:07:00 [facility] Body temperature 2022-06-07 36.39 Sapna [facility] 18:07:00 [facility] Body height 2022-06-07 175.3 cm [facility] 18:07:00 [facility] Body weight 2022-06-07 130.636 kg [facility] 18:07:00 [facility] BMI 2022-06-07 42.53 kg/m2 [facility] 18:07:00 [facility] height 2022-05-07 69 [in_i] [facility] - 14:40:00 [facility] weight 2022-05-07 282 [lb_av] [facility] - 14:40:00 [facility] temperature 2022-05-07 98.0 [degF] [facility] - 14:40:00 [facility] bmi 2022-05-07 41.64 kg/m2 [facility] - 14:40:00 [facility] oximetry 2022-05-07 96 % [facility] - 14:40:00 [facility] respiratory rate 2022-05-07 16 /min [facility] - 14:40:00 [facility] blood pressure 2022-05-07 132 mm[Hg] [facility] - systolic 14:40:00 [facility] blood pressure 2022-05-07 86 mm[Hg] [facility] - diastolic 14:40:00 [facility] Procedures Procedure Date / Time Performing Clinician Source Performed [facility] PATIENT FINANCIAL 2022-11-26 20:50:29 Doctor Unassigned, No [facility] POLICY Name [facility] DME/SUPPLY JUSTIFICATION 2022-08-13 06:01:00 Doctor Unassigned, No [facility] XR CERVICAL SPINE 2 VW 2022-08-05 17:43:18 Ahrm[facility]unjumon[facility]W RIGHT 2022-08-05 17:43:18 [facility]REFUSAL FOR 2022-08-05 17:20:37 [facility], [facility] ASSIGNMENT OF BENEFITS 2022-08-05 17:02:56 Doctor Unassigned, No [facility] XR SHOULDER 2+ VW RIGHT 2022-06-07 18:28:19 Jethro [facility] Encounters Start End Encounter Admission Attending Care Care Encounter Source Date/Time Date/Time Type Type Clinicians Facility Department ID 2022-09-03 Outpatient Howard, STLMLC STLC [id number] Common 14:13:02 [facility] 2022-07-30 Outpatient Howard, STLMLC STLC [id number] Common 15:03:01 [facility] [address] [facility] 2022-05-07 Outpatient Howard, STLMLC STLC [id number] Common 14:36:03 [facility] 2023-04-11 2023-04-11 Telephone Deana [facility] [id number] [facility] 00:00:00 00:00:00 Martin ADDISON [id number] ity of IALTY [id number] [facility] [id number] [address] DIABETES CLINIC 2023-03-12 2023-03-12 Outpatient Pepper CHURCH [facility] [id number] Univers 09:30:00 09:30:00 GIAN valdes [facility] 2023-03-06 2023-03-06 [facility] [id number] [facility] 00:00:00 00:00:00 Gian HARTMANPEC [id number] ity of [place] [id number] [facility] [id number] [address] DIABETES CLINIC 2023-01-14 2023-01-14 Outpatient R DEANA [facility] [id number] Univers 13:30:00 13:48:27 MARTIN [facility] [place] [facility] 2023-01-14 2023-01-14 Office [facility] [id number] [facility] 13:30:00 13:48:27 Visit Martin ADDISON [id number] [id number] [id number] [facility] AND [address] DIABETES CLINIC 2022-12-17 2022-12-17 Outpatient R CELINA LORRAINE [facility] [id number] Univers 10:00:00 10:00:00 CELINA LORRAINE [facility] [place] [facility] 2022-12-11 2022-12-11 Telephone [facility] [id number] Univers 00:00:00 00:00:00 lorraine ADDISON [id number] [id number] [id number] [facility] AND [address] DIABETES CLINIC 2022-12-10 2022-12-10 Outpatient R CELINA LORRAINE [facility] [id number] Univers 14:30:00 14:30:00 CELINA LORRAINE [facility] [place] [facility] 2022-12-10 2022-12-10 [facility] [id number] Univers 00:00:00 00:00:00 Martinaugust HARTMANPEC [id number] [id number] [id number] [facility] AND [address] DIABETES CLINIC 2022-12-09 2022-12-09 Telephone [facility] [id number] Univers 00:00:00 00:00:00 [facility] MULTISPEC [id number] [id number] [id number] [facility] AND [address] DIABETES CLINIC 2022-11-26 2022-11-26 Outpatient R CEGELSKI, [facility] [id number] Univers 15:30:00 15:49:04 MARTIN [facility] [place] [facility] 2022-11-26 2022-11-26 Office Deana [facility] [id number] Univers 15:30:00 15:49:04 Visit Martin [facility] [id number] ity [facility] [id number] [facility] [id number] [facility] AND [place] [address] DIABETES CLINIC 2022-11-26 2022-11-26 Orders Doctor THI [id number] Univers 00:00:00 00:00:00 Only Unassigned, VIRGILIO [id number] ity of [facility] [id number] [facility] [id number] [facility] 009 Branch 2022-11-05 2022-11-05 Outpatient Pepper ZHAO [facility] [id number] Univers 14:00:00 14:00:00 JETHRO chiki [facility] 2022-10-29 2022-10-29 [facility] [id number] Univers 00:00:00 00:00:00 MEERA baker [id number] it y [facility] [id number] [facility] [id number] [facility] PRIMARY & [address] Branch SPECIALTY CARE 2022-10-22 2022-10-22 Outpatient R DEANA [facility] [id number] Univers 15:00:00 15:00:00 MARTIN valdes [facility] 2022-10-21 2022-10-21 Outpatient R HILLARY [facility] [id number] Univers 13:00:00 13:00:00 keisha BAKER [facility] 2022-10-17 2022-10-17 (TEL) STLC STLMLC [id number] Co mmon 00:00:00 00:00:00 [facility] 2022-10-15 2022-10-15 [facility] [id number] Univers 14:00:00 14:00:00 MARTIN [facility] [place] [facility] 2022-10-15 2022-10-15 [facility] [id number] Univers 00:00:00 00:00:00 Martin MULTISPEC [id number] ity of IALTY [id number] [facility] [place] [id number] [facility] AND [address] DIABETES CLINIC 2022-10-08 2022-10-08 (TEL) STLMLC STLMLC [id number] Co mmon 00:00:00 00:00:00 [facility] 2022-09-11 2022-09-11 (TEL) STLMLC STLMLC [id number] Co mmon 00:00:00 00:00:00 [facility] 2022-09-11 2022-09-11 OFFICE STLMLC STLMLC [id number] Co mmon 00:00:00 00:00:00 VISIT [facility] 2022-09-10 2022-09-10 Outpatient Pepper [facility] [id number] Univers 16:00:00 16:00:00 JETHRO [facility] 2022-09-06 2022-09-06 [facility]phone [facility] [id number] Univers 00:00:00 00:00:00 ashley, MAXI [id number] ity of [place] CARE [id number] [facility] [place] AT [id number] [place] [address] Branch [place] 2022-09-06 2022-09-06 Telephone [facility] [id number] Univers 00:00:00 00:00:00 Sheryl MULTISPEC [id number] ity of IALTY [id number] [facility] [id number] [facility] AND [place] [address] [place] [facility] 2022-08-13 2022-08-13 Outpatient R [facility]LEN [facility] [id number] Univers 14:00:00 15:50:10 ANDREAROSANGELA, ity of [facility] 2022-08-13 2022-08-13 Office Sheryl Ca [facility] [id number] Univers 14:00:00 15:50:10 [facility] 350 .1.13.10 ity of [facility] 4.2.7.[address] [place] [address] [id number] [facility] AND [place] [address] DIABETES [facility]INIC 2022-08-13 2022-08-13 Orders Doctor THI [id number] Univers 00:00:00 00:00:00 Only Unassigned, VIRGILIO [id number] ity of [place] [facility] [address] [place] [address] [id number] [facility] 00[address] Branch 2022-08-07 2022-08-07 ([facility] [id number] Co mmon 00:00:00 00:00:00 [facility] 2022-08-05 2022-08-05 [facility] [id number] Univers 11:21:07 23:59:00 Encounter [facility] [id number] ity of [facility] 4.2.7.2.[address] [place] [address] [id number] [facility] PRIMARY & 8[address] SPECIALTY CARE 2022-08-05 2022-08-05 Office [facility] [id number] Univers 11:40:00 12:00:00 Visit [facility] [id number] it y of [facility] 42.7.2.[address] [place] [address] [phone] [facility] PRIMARY & [address] SPECIALTY CARE 2022-08-05 2022-08-05 Outpatient R [facility] [id number] Univers 11:40:00 11:40:00 ASHLEY ity of [facility] 2022-08-05 2022-08-05 Orders Doctor NESS 1.2.840.114 [id number] Univers 00:00:00 00:00:00 Only Unassigned, VIRGILIO 350.1.13.10 ity of [place] [facility] 4.2.7.2.686 Satish as [phone] [address] 2022-07-29 2022-07-29 Outpatient R HARMONYZANE [facility] [id number] Univers 16:00:00 16:00:00 PRIAYADRYkeisha [facility] 2022-06-24 2022-06-24 [facility] [id number] Univers 11:40:00 11:40:00 [facility] 2022-06-07 2022-06-07 [facility] 1.2.840.114 [id number] Univers 13:11:58 23:59:00 Encounter Jethro SPECIALTY 350.1.13.10 ity of [facility] [place] [phone] [place] terrence HOOK 809 [facility] 2022-06-07 2022-06-07 [facility] 1.2.137.509 [id number] Univers 13:20:00 13:44:39 Visit Jethro SPECIALTY 350.1.13.10 ity of [facility] [place] [phone] [place] terrence HOOK 198 [facility] 2022-06-07 2022-06-07 Outpatient Pepper DODGE [facility] [id number] Univers 13:20:00 13:44:39 JETHRO valdes [facility] 2022-06-07 2022-06-07 Outpatient R SOFIA [facility] [id number] Univers 13:20:00 13:44:39 JETHRO valdes [facility] 2022-06-07 2022-06-07 Outpatient Pepper DODGE [facility] [id number] Univers 13:20:00 13:20:00 JETHRO valdes [facility] 2022-05-30 2022-05-30 Outpatient Pepper DODGE [facility] [id number] Univers 13:10:00 13:10:00 JETHRO valdes [facility] 2022-05-22 2022-05-22 Orders Doctor NESS 1.2.840.114 [id number] Univers 00:00:00 00:00:00 Only Unassigned, VIRGILIO 350.1.13.10 ity of [place] [facility] 4.2.7.2.686 Satish as [phone] [address] 2022-05-07 2022-05-07 [facility] [id number] Co mmon 00:00:00 00:00:00 VISIT Fabien [facility] PT - CHI LEVEL 4 [facility] 2022-05-07 2022-05-07 [facility] [id number] Co mmon 00:00:00 00:00:00 [facility] 2022-04-18 2022-04-18 Orders Doctor NESS 1.2.840.114 [id number] Univers 00:00:00 00:00:00 Only Unassigned, VIRGILIO 350.1.13.10 ity of [place] [facility] 4.2.7.2.686 Satish as [phone] [address] 2021-06-15 2021-06-15 Office Christa King [facility] 1.2.840.114 [id number] Univers 14:04:32 15:05:28 Visit Salazar Girard 350.1.13.10 it y of [facility]2.7.2.686 [facility] [phone] [facility] [address] 2021-06-15 2021-06-15 Outpatient CHRISTA MEANS [facility] [id number] Univers 14:30:00 14:30:00 ity of [facility] 2021-06-08 2021-06-08 Outpatient CHRISTA MEANS [facility] [id number] Univers 14:00:00 14:00:00 ity [facility] 2021-06-04 2021-06-04 Outpatient JESSE GOMEZ [facility] [id number] Univers 13:00:00 13:00:00 ity [facility] 2021-01-25 2021-01-25 Orders Doctor THI Alvarez2.840.114 [id number] 00:00:00 00:00:00 Only Unassigned, VIRGILIO 350.1.13.10 [place] [facility] 4.2.7.2.686 [phone] 009 2021-01-25 2021-01-25 Orders Doctor THI 1.2.840.114 [id number] Univers 00:00:00 00:00:00 Only Unassigned, VIRGILIO 350.1.13.10 ity of [place] [facility] 4.2.7.2.686 Satish as [phone] [facility] [address] 2021-01-15 2021-01-15 Orders Doctor THI 1.2.840.114 [id number] 00:00:00 00:00:00 Only Unassigned, VIRGILIO 350.1.13.10 [place] [facility] 4.2.7.2.686 [id number] 2021-01-15 2021-01-15 Orders Doctor THI 1.2.840.114 [id number] Univers 00:00:00 00:00:00 Only Unassigned, VIRGILIO 350.1.13.10 ity of [place] [facility] 4.2.7.2.686 Satish as [phone] [facility] [address] 2020-11-17 2020-11-17 Case HigginsDEEDEE 1.2.840.114 [id number] 22 00:00:00 00:00:00 Management [place] ADDISON 350.1.13.10 [place] 4.2.7.2.686 [place] [phone] [facility] 2020-11-17 2020-11-17 Transition Molly Hernandez 1.2.840.114 [id number] 00:00:00 00:00:00 of Care Viviana M Aram 350.1.13.10 [place] 4.2.7.2.686 [id number] [id number] 2020-11-17 2020-11-17 Transition Molly Hernandez 1.2.840.[id number] [facility] 00:00:00 00:00:00 of Care Viviana M Chiu 350.1.13.10 i ty of [place] [phone] [facility] [address] 2020-11-17 2020-11-17 Case [facility] 1.2.840.114 [id number] Univers 00:00:00 00:00:00 Management [facility].1.13.10 [facility] 4.2.7.2.686 [facility] [phone] [facility] AND ONEIL [address] [facility] 2020-11-12 2020-11-16 [facility] Jeronimo Hogue 1.2.840.1 14 [id number] 18:33:00 16:20:00 Encounter Julian Gonzales 350.1.13.10 [facility] 4.2.7.2.686 Sammie Tarango [phone] Tyler Trevizo [facility], Chu Moreno Jordin, Tyler Marin, Chu Moreno 2020-11-12 2020-11-16 [facility] [id number] Univers 18:33:00 16:20:00 [facility] 2020-11-12 2020-11-16 [facility] Jeronimo Hogue 1.2.840.[id number] [facility] 18:33:00 16:20:00 Encounter Julian Gonzales 350.1.13.10 ity [facility] 4.2.7.2.686 [place] Sammie Tarango [phone] Medical Tyler Trevizo Nithya [place] Sung, Chu Moreno Jordin, Tyler Marin, Chu Moreno 2020-11-14 2020-11-14 Tele[facility] 1.2.840.114 [id number] 00:00:00 00:00:00 MAXI baker 350.1.13.10 [facility] 4.2.7.2.686 CENTER AT [phone] MONSTER Pietro [facility] 2020-11-14 2020-11-14 Telephone [facility] 1.2.840.114 [id number] Univers 00:00:00 00:00:00 njumon, SPECIALTY 350.1.13.10 ity of [place] C[place] AT [phone] [place]s terrence HOOK 198 [facility] 2020-11-13 2020-11-13 Transition Molly Verdugo 1.2.840.114 [id number] 00:00:00 00:00:00 of Care Lizbeth Chiu 350.1.13.10 [place] 4.2.7.2.686 [phone] [facility] 2020-11-13 2020-11-13 Transition Radha Verdugojumana 1.2.840.[id number] [facility] 00:00:00 00:00:00 of Care Lizbeth Chiu 350.1.13.10 it y of [place] [phone] [address] 2020-11-07 2020-11-11 [facility] Jeronimo Hogue [facility] 1.2.840.1 14 [id number] 06:48:00 14:50:00 Encounter Annette Conrad 350.1.13.10 [place] 4.2.7.2.686 [facility] [id number] 0 2020-11-07 2020-11-11 Inpatient X DEEDEE CONRAD [facility] [id number] Univers 06:48:00 14:50:00 ANNETTE ity of [facility] 2020-11-07 2020-11-11 [facility] Jeronimo Hogue [facility] 1.2.840.1 14 [id number] Univers 06:48:00 14:50:00 Encounter Annette Conrad 350.1.13.10 ity of [place] 4.2.7.2.686 [facility] [id number] [place] [address] [address] 2020-07-12 2020-07-12 [facility] HarmonyZane Ybarra 1.2.840.114 7 [id number] 11:56:24 23:59:00 Encounter ashley, Pediatric 350.1.13.10 [place] and 4.2.7.2.686 Adult [id number] Primary 809 Care [facility] 2020-07-12 2020-07-12 Hospital Hillary Carrin 1.2.840.114 [id number] Univers 11:56:24 23:59:00 Encounter ashley Pediatric 350.1.13.10 ity of [place] and [place]2.[place].2.[place] [phone] [facility] Primary [address] [facility] 2020-07-12 2020-07-12 Office Hillary Carrin 1.2.840.114 [id number] 11:00:10 13:58:54 Visit ashley Pediatric 350.1.13.10 [place] and 4.2.7.2.686 Adult [id number] Primary 198 [facility] 2020-07-12 2020-07-12 Office Hillary Carrin 1.2.840.114 [id number] Univers 11:00:10 13:58:54 Visit ashley Pediatric 350.1.13.10 ity of [place] and [place].2.[place] [phone] [facility] [address] [facility] 2020-07-12 2020-07-12 Outpatient R HARMONYOdiliaZANE [facility] [id number] Univers 11:00:00 11:00:00 ASHLEY ity of [facility] 2020-07-03 2020-07-03 Orders Doctor NESS 1.2.840.114 [id number] 00:00:00 00:00:00 Only UnassignedVIRGILIO 350.1.13.10 [place] [facility] 4.2.7.2.686 [id number] 009 2020-07-03 2020-07-03 Orders Doctor NESS 1.2.840.114 [id number] Univers 00:00:00 00:00:00 Only Unassigned, VIRGILIO 350.1.13.10 ity of [place] [facility] 4.2.7.2.686 Satish as [phone] [place] [address] Branch 2020-06-02 2020-06-02 Office [facility] 1.2.840.114 [id number] Univers 12:31:11 14:20:12 Visit Edilma Amador 350.1.13.10 ity [facility] [place].2.7.2.[place] Profess[place] [phone] [place] dical nal 134 [facility] 2020-06-02 2020-06-02 Outpatient R ADUM, [facility] [id number] Univers 13:00:00 13:00:00 EDILMA ity of [facility] 2020-06-02 2020-06-02 Orders Doctor NESS 1.2.840.114 [id number] Univers 00:00:00 00:00:00 Only Unassigned, VIRGILIO 350.1.13.10 ity [facility] 4.2.7.2.686 [facility] [phone] [facility] [address] [place] 2020-05-26 2020-05-26 [facility] [id number] Univers 10:45:00 10:45:00 EDILMA itchiki of [facility] 2020-05-26 2020-05-26 [facility] 1.2.840.114 [id number] Univers 08:07:24 08:37:24 ne Visit Edilma Rueda [place] 350.1.13.10 [facility] 4.2.7.2.686 [facility] s Professio [phone] [place] dical nal [address] [place] [address] 2020-05-12 2020-05-12 Outpatient R ADUM, [facility] [id number] Univers 13:00:00 13:00:00 EDILMA ity of [facility] 2020-04-25 2020-04-25 [facility] 1.2.840.114 [id number] Univers 15:50:23 23:59:00 Encounter Edilma Rueda Perry 350.1.13.10 ity [facility] 4.2.7.2.686 [facility] [phone] [facility] [address] [place] 2020-04-25 2020-04-25 Outpatient R ADUM, [facility] [id number] Univers 00:00:00 00:00:00 EDILMA itchiki of [facility] 2020-04-25 2020-04-25 Orders Doctor NESS 1.2.840.114 [id number] Univers 00:00:00 00:00:00 Only Unassigned, VIRGILIO 350.1.13.10 ity of [place] [facility] 4.2.7.2.686 Satish as [phone] [place] [address] Branch 2020-04-14 2020-04-14 [facility] 1.2.840.114 [id number] Univers 14:15:54 14:56:38 Visit Edilma Amador 350.1.13.10 ity of [place].2.7.2.[place] Profess[place] [phone] Ks dical [address] 2020-04-14 2020-04-14 Outpatient R AD, [facility] [id number] Univers 13:30:00 13:30:00 EDILMA ity of [facility] 2020-04-13 2020-04-13 Orders Doctor THI 1.2.840.114 [id number] Univers 00:00:00 00:00:00 Only Unassigned, VIRGILIO 350.1.13.10 ity of [place] [facility] 4.2.7.2.686 Satish as [phone] [address] 2019-11-01 2019-11-01 Telephone [facility] 1.2.840.114 [id number] Univers 00:00:00 00:00:00 Jethro HEALTH 350.1.13.10 it y of [place] 4.2.7.2.686 [facility] [phone] [facility] Primary & [address] Specialty Care 2019-10-28 2019-10-28 Telephone [facility] 1.2.840.114 [id number] Univers 00:00:00 00:00:00 Jethro HEALTH 350.1.13.10 it y of [place] 4.2.7.2.686 [facility] [phone] [facility] Primary & [address] Specialty Care 2019-10-26 2019-10-26 Office [facility] 1.2.840.114 [id number] Univers 14:08:12 15:44:07 Visit Jethro HEALTH 350.1.13.10 it y of [place] 4.2.7.2.686 [facility] [id number] [facility] Primary & [address] Specialty Care 2019-10-07 2019-10-07 Telephone [facility] 1.2.840.114 [id number] Univers 00:00:00 00:00:00 Jethro ZAVALA 350.1.13.10 i ty of [place]2.[place] [phone] [facility] [address] 2019-10-06 2019-10-06 Outpatient Pepper ZHAO [facility] [id number] Univers 10:39:27 23:59:00 JETHRO ity of [facility] 2019-10-06 2019-10-06 [facility] Aleida Zhao 1.2.232.035 [id number] Univers 10:39:00 23:59:00 Encounter Jethro Mendez 350.1.13.10 ity of [facility] 4.2.7.2.686 Satish as [phone] [facility] [address] 2019-10-06 2019-10-06 [facility] Aleida Zhao 1.2.996.275 [id number] Univers 09:41:27 16:32:00 Encounter Jethro Mendez 350.1.13.10 ity of [facility] 4.2.7.2.686 Satish as [phone] [facility] [address] 2019-10-06 2019-10-06 Orders Doctor THI 1.2.840.114 [id number] Univers 00:00:00 00:00:00 Only Unassigned, VIRGILIO 350.1.13.10 ity of [place] [facility] 4.2.7.2.686 Satish as [phone] [facility] [address] 2019-05-28 2019-05-28 Office [facility] 1.2.840.114 [id number] Univers 13:10:51 15:03:17 Visit Nesha [place] 350.1.13.10 i ty of [place].2.[place] Profess[place] [phone] [place] dical nal [address] Building Results Test [...] 0-0 (BEAKER) (test code = 413) 0.00POCT-GLUCOSE [id number] 17:50:00 Test Item Value Reference Range Interpretation Comments POC-GLUCOSE METER 118 mg/dL 70-[address] [facility] 6720 (BEAKER) (test code = KISHA Pabon [place] 1538) [address] POCT-GLUCOSE [id number] 11:59:00 Test Item Value Reference Range Interpretation Comments POC-GLUCOSE METER 247 mg/dL 70-[address] [facility] 6720 (BEAKER) (test code = KISHA Pabon [facility] 1538) 68149 POCT-GLUCOSE [id number] 07:54:00 Test Item Value Reference Range Interpretation Comments POC-GLUCOSE METER 141 mg/dL 70-110 H TESTED AT [place] [address] (BEAKER) (test code = KISHA Pabon [facility] 1538) 82252 CBC W/PLT COUNT & AUTO [id number] 03:45:00 Test Item Value Reference Range Interpretation [...] K/ L 0.00-0.20 (test code = 417) [id number] 03:29:00 Test Item Value Reference Range Interpretation Comments MAGNESIUM (BEAKER) 1.8 mg/dL 1.6-2.6 Specimen slightly (test code = 627) hemolyzed BASIC METABOLIC [id number] 03:29:00 Test Item Value Reference Range Interpretation [...] NOT APPLICABLE FOR DIALYSIS PATIEN TS. POCT-GLUCOSE [id number] 00:05:00 Test Item Value Reference Range Interpretation Comments POC-GLUCOSE METER 117 mg/dL 70-[address] [facility] 6720 (BEAKER) (test code = KISHA Pab[place] 1538) 85609 POCT-GLUCOSE [id number] 18:17:00 Test Item Value Reference Range Interpretation Comments POC-GLUCOSE METER 141 mg/dL 70-[address] [facility] 6720 (BEAKER) (test code = KISHA Pab[place] 1538) [address] CREATINE KINASE (CK), TOTAL AND [id number] 15:43:00 Test Item Value Reference Range Interpretation Comments CREATINE KINASE TOTAL (BEAKER) 31 U/L 29-200 (test code = 380) CREATINE KINASE-MB (BEAKER) (test 1.3 ng/mL 0.0-6.6 code = 750) CREATINE KINASE-MB INDEX (BEAKER) 4.2 % (test code = 395) Effective 08/09/2014: CK-MB Reference Range ChangeNew: 0.0-6.6 Previous: 0.0-4.9CK-MB Reference Range:<6.7 Normal6.7-10.0 Borderline>10.0 Abnormal BLOOD GAS, [id number] 15:26:00 Test Item Value Reference Range Interpretation [...] (test code = 1819) 35.0 % POCT-GLUCOSE [id number] 11:45:00 Test Item Value Reference Range Interpretation Comments POC-GLUCOSE METER 122 mg/dL 70-[address] [facility] 6720 (BEAKER) (test code = KISHA P[place] 1538) 107[address] CREATINE KINASE (CK), TOTAL AND [id number] 10:29:00 Test Item Value Reference Range Interpretation Comments CREATINE KINASE TOTAL (BEAKER) 31 U/L 29-200 (test code = 380) CREATINE KINASE-MB (BEAKER) (test 1.5 ng/mL 0.0-6.6 code = 750) CREATINE KINASE-MB INDEX (BEAKER) 4.8 % (test code = 395) Effective 08/09/2014: CK-MB Reference Range ChangeNew: 0.0-6.6 Previous: 0.0-4.9CK-MB Reference Range:<6.7 Normal6.7-10.0 Borderline>10.0 Abnormal TROPONIN [id number] 10:29:00 Test Item Value Reference Range Interpretation [...] failure, acidosis, acute neurological disease, and persistent tachyarrhythmia.[id number] 10:22:00 Test Item Value Reference Range Interpretation Comments PARTIAL THROMBOPLASTIN TIME 22.5 seconds 22.5-36.0 (BEAKER) (test code = 760) PROTHROMBIN TIME/[id number] 10:21:00 Test Item Value Reference Range Interpretation Comments PROTIME (BEAKER) (test code = 12.4 seconds 11.7-14.7 759) INR (BEAKER) (test code = 370) 0.9 <=5.9 RECOMMENDED COUMADIN/WARFARIN INR THERAPY RANGESSTANDARD DOSE: 2.0 - 3.0 Includes: PROPHYLAXIS for venous thrombosis, systemic embolization; TREATMENT for venous thrombosis and/or pulmonary embolus.HIGH RISK: Target INR is 2.5-3.5 for patients with mechanical heart valves.BLOOD GAS, [id number] 10:17:00 Test Item Value Reference Range Interpretation [...] (test code = 1819) 40.0 % PLATELET [id number] 10:13:00 Test Item Value Reference Range Interpretation Comments PLATELET COUNT (BEAKER) (test 111 K/CU MM 150-430 L code = 756) Notes Date/Time Note Provider Source 2023-04-11 [facility] 15:09:00-00:00 Medication refilled per protocol 2023-04-11 Formatting of this note might be differe nt from the original. Ginna Mirza [facility] 14:55:10-00:00 Vikki Zamudio is a 62 year old female Pt requesting refill for Rx tiZANidine 2 mg tablet and gabapentin 300 mg capsule, please advise [id number] - [place] - [address] AT [employer] [address] [email or web address] [place] [address] Electronically signed by Ginna Mirza at 0 04/11/2023 2:55 PM CDT
[2023-04-25 17:54] LABS: Specific Gravity 1.018 (1.005-1.030); Urine Bacteria None Seen /HPF (<20); Urine Bilirubin NEGATIVE (Negative); Urine Blood Negative (Negative); Urine Clarity Clear (Clear); Urine Color Light-Yellow (Yellow); Urine Glucose NEGATIVE (Negative); Urine Protein NEGATIVE (Negative); Urine RBC <5 /HPF (None Seen); Urine Urobilinogen Normal (Normal); Urine WBC Clump Rare /HPF (None Seen)
--- NOTE | 2023-04-25 18:59 | EDPHYS ---
Physician Documentation [facility] Name: Vikki Zamudio Age: 62 yrs Sex: Female : 1960 Arrival Date: 04/25/2023 Time: 17:04 Bed DX4 Private MD: Lee [facility] ED Physician Andrea Willson HPI: 04/25 20:24 This 62 yrs old Female presents to ER via Wheelchair with complaints of Urinary Problem.kdr 20:25 Patient states she was having burning with urination that started about 2 or 3 years kdr ago. She has had urinary tract infections before but has been many years. She states that it hurts very bad when she initiates her urination. Pain then somewhat resides. Patient denies any back pain, fever, nausea, vomiting or other related symptoms suggesting something more serious than a UTI.. Onset: The symptoms/episode began/occurred gradually, 3 day(s) ago. Severity of symptoms: At their worst the symptoms were mild in the emergency department the symptoms are unchanged. The patient has experienced similar episodes in the past, a few times. The patient has not recently seen a physician. Historical: - Allergies: 17:14 No Known Allergies; mb9 - PMHx: 17:14 CHF; COPD; GERD; High Cholesterol; Hypercarbia; Hypertension; Hypothyroidism; Panic mb9 Attacks; Sleep Apnea; - PSHx: 17:14 Appendectomy; section; mb9 - Immunization history:: Adult Immunizations up to date. - Social history:: Smoking status: Patient denies any tobacco usage or history of. ROS: 20:25 Constitutional: Negative for fever, chills, and weight loss, Eyes: Negative for injury, kdr pain, redness, and discharge, ENT: Negative for injury, pain, and discharge, Neck: Negative for injury, pain, and swelling, Cardiovascular: Negative for chest pain, palpitations, and edema, Respiratory: Negative for shortness of breath, cough, wheezing, and pleuritic chest pain, Abdomen/GI: Negative for abdominal pain, nausea, vomiting, diarrhea, and constipation, Back: Negative for injury and pain, MS/Extremity: Negative for injury and deformity, Skin: Negative for injury, rash, and discoloration, Neuro: Negative for headache, weakness, numbness, tingling, and seizure activity. Psych: Negative for depression, anxiety, suicide ideation, homicidal ideation, and hallucinations, Allergy/Immunology: Negative for hives, rash, and allergies, Endocrine: Negative for neck swelling, polydipsia, polyuria, polyphagia, and marked weight changes, Hematologic/Lymphatic: Negative for swollen nodes, abnormal bleeding, and unusual bruising. 20:25 : Positive for urinary symptoms, Negative for pelvic pain, flank pain, bladder incontinence, foul smelling urine, vaginal bleeding. Exam: 20:25 Constitutional: This is a well developed, well nourished patient who is awake, alert, kdr and in no acute distress. Patient was seen in her wheelchair in the lobby. Minimal exam was done. The patient appeared generally well and without acute status. She is nontoxic-appearing.. She was happy with the care provided the plan for discharge and follow-up with minimal ER time. Vital Signs: 17:12 BP 142 / 93; Pulse 88; Resp 20; Temp 98.4; Pulse Ox 91% on 4 lpm NC; Weight 126.55 kg; mb9 Height 5 ft. 9 in. ; Pain 10/10; 19:31 BP 141 / 90; Pulse 80; Resp 18; Pulse Ox 94% on 4 lpm NC; ha1 17:12 Body Mass Index 41.20 (126.55 kg, 175.26 cm) mb9 17:12 Pain Scale: Adult mb9 MDM: 18:59 Patient medically screened. kdr 20:27 Data reviewed: vital signs, nurses notes, lab test result(s). kdr 04/25 17:20 Order name: Urinalysis w/ reflexes; Complete Time: 18:42 mb9 Administered Medications: No medications were administered Disposition Summary: 04/25/23 18:59 Discharge Ordered Location: Home kdr Problem: new kdr Symptoms: have improved kdr Condition: Stable kdr Diagnosis - UTI/ Urinary tract infection, site not specified kdr - Dysuria kdr Followup: kdr - With: Billy Howard, DO - When: 2 - 3 days - Reason: If symptoms return, Further diagnostic work-up, Recheck today's complaints, Continuance of care, Re-evaluation by your physician Discharge Instructions: - Discharge Summary Sheet kdr - Dysuria kdr - Urinary Tract Infection, Adult, Jsds-tn-Fyoz kdr Forms: - Medication Reconciliation Form kdr - Thank You Letter kdr - Antibiotic Education kdr - Patient Portal Instructions kdr Prescriptions: - Pyridium 200 mg Oral Tablet - take 1 tablet by ORAL route every 8 hours for 3 days; 9 tablet; Refills: 0, kdr Product Selection Permitted - Nystatin-Triamcinolone 100,000-0.1 unit/g-% Topical Cream - apply 1 application by TOPICAL route 2 times per day Dispense 1 small tube. kdr Apply to perineum twice daily; 1 Applicator; Refills: 0, Product Selection Permitted - Bactrim DS 800-160 mg Oral Tablet - take 1 tablet by ORAL route every 12 hours for 10 days; 20 tablet; Refills: 0, kdr Product Selection Permitted Signatures: Dispatcher [employer] Andrea Martines MD MD kdr Minal Sim RN RN mb9
--- NOTE | 2023-04-25 18:59 | ER ---
Nurse's Notes [facility] Name: Vikki Zamudio Age: 62 yrs Sex: Female : 1960 Arrival Date: 04/25/2023 Time: 17:04 Bed DX4 Private MD: Billy Howard Diagnosis: UTI/ Urinary tract infection, site not specified;Dysuria Presentation: 04/25 17:12 Chief complaint: Patient states: "I started having burning with urination about 2-3 mb9 days ago. It wing really bad and hurts. I don't have back pain or anything". Coronavirus screen: Vaccine status: Patient reports being unvaccinated. Ebola Screen: No symptoms or risks identified at this time. Initial Sepsis Screen: Does the patient meet any 2 criteria? No. Patient's initial sepsis screen is negative. Does the patient have a suspected source of infection? No. Patient's initial sepsis screen is negative. Risk Assessment: Do you want to hurt yourself or someone else? Patient reports no desire to harm self or others. Onset of symptoms was April 25, 2023. 17:12 Method Of Arrival: Wheelchair mb9 17:12 Acuity: LIZETH 4 mb9 Triage Assessment: 17:15 General: Appears in no apparent distress. Behavior is calm, cooperative. Pain:. Neuro: mb9 Bella Agitation-Sedation Scale (RASS): 0 - Alert and Calm Level of Consciousness is awake, alert, obeys commands, Oriented to person, place, time, situation, Appropriate for age. Cardiovascular: Patient's skin is warm and dry. Respiratory: Reports shortness of breath since 3 years ago Airway is patent Respiratory effort is even, unlabored, Respiratory pattern is regular, symmetrical, Onset: The symptoms/episode began/occurred gradually, the patient has mild shortness of breath. : Reports burning with urination, pain. Derm: Skin is pink, warm \\T\\ dry. Musculoskeletal: Range of motion: intact in all extremities. Historical: - Allergies: 17:14 No Known Allergies; mb9 - PMHx: 17:14 CHF; COPD; GERD; High Cholesterol; Hypercarbia; Hypertension; Hypothyroidism; Panic mb9 Attacks; Sleep Apnea; - PSHx: 17:14 Appendectomy; section; mb9 - Immunization history:: Adult Immunizations up to date. - Social history:: Smoking status: Patient denies any tobacco usage or history of. Screenin:31 [facility] ED Fall Risk Assessment (Adult) History of falling in the last 3 months, ha1 including since admission Yes- single mechanical fall (1 pt) Confusion or Disorientation No (0 pts) Intoxicated or Sedated No (0 pts) Impaired Gait Yes (1 pt) Mobility Assist Device Used Yes (1 pt) Altered Elimination No (0 pt) Score/Fall Risk Level 0 - 2 = Low Risk Oriented to surroundings, Maintained a safe environment, Educated pt \\T\\ family on fall prevention, incl call for assistance when getting out of bed. Abuse screen: Denies threats or abuse. Denies injuries from another. Nutritional screening: No deficits noted. Tuberculosis screening: No symptoms or risk factors identified. Assessment: 19:31 Reassessment: Patient and/or family updated on plan of care and expected duration. Pain ha1 level reassessed. Patient is alert, oriented x 3, equal unlabored respirations, skin warm/dry/pink. 19:32 Cardiovascular: Rhythm is. ha1 Vital Signs: 17:12 BP 142 / 93; Pulse 88; Resp 20; Temp 98.4; Pulse Ox 91% on 4 lpm NC; Weight 126.55 kg; mb9 Height 5 ft. 9 in. ; Pain 10/10; 19:31 BP 141 / 90; Pulse 80; Resp 18; Pulse Ox 94% on 4 lpm NC; ha1 17:12 Body Mass Index 41.20 (126.55 kg, 175.26 cm) mb9 17:12 Pain Scale: Adult mb9 ED Course: 17:07 Patient arrived in ED. mr 17:07 Billy Howard DO is Private Physician. mr 17:08 Andrea Willson MD is Attending Physician. kdr 17:12 Arm band placed on. mb9 17:14 Triage completed. mb9 17:48 Urine collected: clean catch specimen, clear. aw1 17:48 Urinalysis w/ reflexes Sent. aw1 18:58 Billy Howard DO is Referral Physician. kdr 19:00 Patient has correct armband on for positive identification. Bed in low position. Call ha1 light in reach. Side rails up X 1. 19:32 No provider procedures requiring assistance completed. Patient did not have IV access ha1 during this emergency room visit. 19:33 Provided Education on: medication administration . ha1 Administered Medications: No medications were administered Medication: 19:33 VIS not applicable for this client. ha1 Outcome: 18:59 Discharge ordered by . kdr 19:32 Discharged to home via wheelchair. ha1 19:32 Condition: stable 19:32 Discharge instructions given to patient, family, Instructed on discharge instructions, follow up and referral plans. medication usage, Demonstrated understanding of instructions, follow-up care, medications, Prescriptions given X 3. 19:33 Patient left the ED. ha1 Signatures: Andrea Willson MD MD kdr Rivera, Mary Bteh French RN RN ha1 Minal Sim RN RN mb9 Karlee Owen aw1 Corrections: (The following items were deleted from the chart) 17:14 17:12 BP 142 / 93; Pulse 88bpm; Resp 20bpm; Pulse Ox 87% 4 lpm Nasal Cannula; Temp mb9 98.4F; 126.55 kg; Height 5 ft. 9 in.; BMI: 41.2; Pain 10/10, Adult; mb9
[2023-04-25 19:47] VITALS: TEMP 98.4
[2023-04-25 19:48] VITALS: BP 141/90; O2SAT 94
== END 2023-04-25 19:33 | disposition home or self-care (01) ==
LOC: ER 17:04
DX: N39.0 Urinary tract infection, site not specified (principal)
CPT/HCPCS: 81001; 99283

== ENCOUNTER 2023-06-04 22:08 | Emergency (ER) | payer OTHER ==
--- OUTSIDE RECORDS SUMMARY | 2023-06-04 22:22 | XMS REPORT | Continuity of Care Document ---
:1960 Author Organization [facility] t Address [address] [place] [address] Care Team Providers Name Role Phone JOSE MCGUIRE Primary Care Physician Unavailable Billy Howard Attending Clinician Unavailable GIAN CHURCH Attending Clinician Unavailable Gian Church MD Attending Clinician Martin Leblanc MD Attending Clinician Unavailable MARTIN LEBLANC Attending Clinician Unavailable CLARA PATRICK Attending Clinician Unavailable CLARA PATRICK Attending Clinician Unavailable Doctor Unassigned, [place] Attending Clinician Unavailable JETHRO ZHAO Attending Clinician Unavailable Negra Gregory Attending Clinician [phone] NEGRA DUNAWAY Attending Clinician Unavailable Sheryl Ca MD Attending Clinician Jethro Dodge MD Attending Clinician [phone] JETHRO DODGE Attending Clinician Unavailable Christine DIETRICH, Christa Lincoln Attending Clinician CHRISTA KING Attending Clinician Unavailable JESSE ARREDONDO Attending Clinician Unavailable Ronaldo DIETRICH, [place] Oates Attending Clinician David CARDONA, Viviana Person Attending Clinician Jeronimo Hogue MD Attending Clinician Christian DIETRICH, Julian Rose Attending Clinician Sammie Tarango MD Attending Clinician Jordin DIETRICH, [place] Attending Clinician Chu Marni MD Attending Clinician [phone] CUH MARIN Attending Clinician Unavailable Lizbeth Verdugo RN [...] Number Effective Date Expiration Date S harshad [facility] [id number] 2012 PLUS 00:00:00 [place] [id number] 2019 Common [facility] 00:00:00 [facility] Problems Condition Condition Condition Status [...] failure y failure 2-16 ity of 00:00: [address] Obesity Obesity Disease Active Univers (BMI (BMI 9-11 ity of 30-39.9) 30-39.9) 00:00: [address] Tobacco Tobacco Disease Active [facility] [address] Hypoxemia Hypoxemia Disease Active [facility]: [address] COPD COPD Disease Recurre [facility] exacerbati exacerbati nce 6-05 Pema kes on on 00:00: [address] Acute Acute Disease Recurre [facility] hypercapni hypercapni nce 605 Pema kes c c 00:00: Medical respirator respirator 00 Ce nter y failure y failure Wears Wears Disease Active Univers partial partial ity of dentures dentures [facility] [id number] Severe Problem Common chronic Spirit obstructiv - e [facility] Hypertensi Hypertensi Problem C ommon on on [facility] Hypothyroi Hypothyroi Problem C ommon dism dism [facility] Counseling Tobacco Problem Comm on about abuse Spirit tobacco counseling - use [facility] Hyperlipid Hyperlipid Problem C ommon emia emia, [facility] unspecie [facility] d hyperlipid [facility] Chronic Chronic Problem Common pain pain Spirit syndrome syndrome - [facility] Bipolar Bipolar Problem Common disorder disorder [facility] [id number] Nasal Problem Common bleeding [facility] Essential Essential Problem Com mon hypertensi hypertensi Sp kiley on on CHI [facility] [id number] History of Problem Co mmon congestive Spirit heart - CHI failure [facility] Pulmonary Pulmonary Problem Com mon hypertensi hypertensi Sp kiley on on, - CHI unspecie [facility] Chronic Chronic Problem Common obstructiv obstructiv Sp kiley e e - pulmonary pulmonary St disease disease, [facility] unspecifie [facility] type [id number] Morbid Problem Common obesity Spirit - CHI [facility] [id number] On Problem Common supplement Spirit al oxygen - CHI by nasal [facility] [id number] Body mass Problem Com mon index Spirit (BMI) - CHI 40.0-44.9, [facility] [id number] CPAP Problem Common (continuou Spirit s positive - CHI airway St pressure) [facility] dependence Medica l [place] [id number] Nasal Problem Common congestion [facility] Vaginal Vaginal Problem Common bleeding bleeding [facility] Congestive Congestive Problem C ommon heart heart Spirit disease failure, - CHI unspecifie d [facility] chronicity Medica l , Center unspecifie d heart failure type [id number] Pain in Problem Comm on [id number] right Spirit shoulder - CHI [facility] [id number] VIVEK Problem Common (obstructi Spirit ve sleep - CHI apnea) [facility] [id number] Nontraumat Problem C ommon [id number] ic Spirit complete - CHI tear of [facility] rotator Medical cuff Center [id number] Abnormal Problem Comm on thyroid Spirit function - CHI test [facility] [id number] RLS Problem Common (restless Spirit legs - CHI syndrome) [facility] [id number] 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 University o f Alcohol Std Drinks [place] [facility] History SDOH University o f Alcohol Binge [facility] al [place] Gender identity Universit y of [facility] Sexual orientation Univer sity [facility] [place] History of Tobacco Common Spirit - Use [facility] Exposure to 2023-01-04 2023-01-14 Not sure University of SARS-CoV-2 (event) 00:00:00 12:54:00 [facility] Alcohol intake 2022-08-13 2022-08-13 0 /d University of 00:00:00 00:00:00 [facility] History of Social 2022-08-05 2022-08-05 Univers ity of function 00:00:00 00:00:00 [facility] Tobacco use and 2022-06-07 2022-06-07 Smokeless tobacco Un iversity of exposure 00:00:00 00:00:00 non-user [facility] Tobacco Comment 2022-06-07 2022-06-07 1-1.5 packs a day, U niversity of 00:00:00 00:00:00 quit 2019 [facility] Alcohol Comment 2020-11-12 2020-11-12 occasionally Univers ity of 00:00:00 00:00:00 [facility] Sex [facility]igned At [birth year] [facility] 00:[facility] 00:00:00 [facility] Smoking Status Start Date Stop Date Source Ex-smoker 2022-06-07 00:00:00 2022-06-07 00:00:[address] [facility] [place] Medications Ordered Filled Start Stop Current Ordering Indication Dosage Frequency Signature Comments Components Source Medication Medication Date Date Medication? Clinician (SIG) Name Name gabapentin Yes [id number] 300mg Take 1 Univers 300 mg 7-21 capsule by ity of capsule 00:00: mouth in [place] 00 the Medical morning Branch and 1 capsule at noon and 1 capsule in the evening. tiZANidine Yes [id number] 2mg Take 1 Univers 2 mg tablet 7-21 tablet by ity of 00:00: mouth 3 [place] 00 (three) Medical times Branch daily as needed (muscle pain). gabapentin Yes [id number] 300mg Take 1 Univers 300 mg 7-21 capsule by ity of capsule 00:00: mouth in [place] 00 the Medical morning Branch and 1 capsule at noon and 1 capsule in the evening. tiZANidine 2022-0 Yes [id number] 2mg Take 1 Univers 2 mg tablet 7-21 tablet by ity of 00:00: mouth 3 [place] 00 (three) Medical times Branch daily as needed (muscle pain). tiZANidine 0 Yes [id number] 2mg Take 1 Univers 2 mg tablet 4-25 tablet by ity of 00:00: mouth 3 [place] 00 (three) Medical times Branch daily as needed (muscle pain). Diclofenac 2022-0 Yes [id number] Apply to Univers Epolamine 4-25 skin once ity o f (FLECTOR) 00:00[place] 1.[place] % patch 00 needed Medica l (shoulder Branch pain). tiZANidine 0 Yes [id number] 2mg Take 1 Univers 2 mg tablet 4-25 tablet by ity of 00:00: mouth 3 [place] 00 (three) Medical times Branch daily as needed (muscle pain). Diclofenac 0 Yes [id number] Apply to Univers Epolamine 4-25 skin once ity o f (FLECTOR) 00:00[place] 1.[place] % patch 00 needed Medica l (shoulder Branch pain). tiZANidine 0 Yes [id number] 2mg Take 1 Univers 2 mg tablet 4-25 tablet by ity of 00:00: mouth 3 [place] 00 (three) Medical times Branch daily as needed (muscle pain). Diclofenac 0 Yes [id number] Apply to Univers Epolamine 4-25 skin once ity o f (FLECTOR) 00:00: daily [place] 1.[place] % patch 00 needed Medica l (shoulder Branch pain). Diclofenac 0 Yes [id number] Apply to Univers Epolamine 4-25 skin once ity o f (FLECTOR) 00:00: daily [place] 1.[place] % patch 00 needed Medica l (shoulder Branch pain). Diclofenac 2022-0 Yes [id number] Apply to Univers Epolamine 4-25 skin once ity o f (FLECTOR) 00:00: daily [place] 1.[place] % patch 00 needed Medica l (shoulder Branch pain). tiZANidine 0 2022- No [id number] 2mg Take 1 Univers 2 mg tablet 01-14 07-21 tablet by it y of 00:00: 00:00 mouth 3 [place] 00 :00 (three) Medical times [place] daily as needed (muscle pain). traMADol 50 2022-0 2022- No 50mg Take 50 mg Univers mg tablet 11-26-07 by mouth 3 ity of 15:02: 00:00 (three) [place] 43 :00 times Medical daily. Branch traMADol 50 2022-0 2022- No 50mg Take 50 mg Univers mg tablet 11-26- by mouth 3 ity of 15:02: 00:00 (three) [place] 43 :00 times Medical daily. Branch gabapentin 2022-0 Yes [id number] 300mg Take 1 Univers 300 mg 3-07 capsule by ity of capsule 00:00: mouth in [place] [address] the Medical morning Branch and 1 capsule at noon and 1 capsule in the evening. Diclofenac 2022-0 Yes [id number] Apply to Univers Sodium 3-07 area(s) ity of (VOLTAREN) 00:00: daily. [place] 1 % gel [facility] gabapentin 2022-0 Yes [id number] 300mg Take 1 Univers 300 mg 3-07 capsule by ity of capsule 00:00: mouth in [place] [address] the Medical morning Branch and 1 capsule at noon and 1 capsule in the evening. Diclofenac 2022-0 Yes [id number] Apply to Univers Sodium 3-07 area(s) ity of (VOLTAREN) 00:00: daily. [place] 1 % gel [facility] gabapentin 3-0 Yes [id number] 300mg Take 1 Univers 300 mg 3-07 capsule by ity of capsule 00:00: mouth in [place] [address] the Medical morning Branch and 1 capsule at noon and 1 capsule in the evening. Diclofenac 2023-0 Yes [id number] Apply to Univers Sodium 3-07 area(s) ity of (VOLTAREN) 00:00: daily. [place] 1 % gel [facility] gabapentin 3-0 Yes [id number] 300mg Take 1 Univers 300 mg 3-07 capsule by ity of capsule 00:00: mouth in [place] [address] the Medical morning [place] and 1 capsule at noon and 1 capsule in the evening. Diclofenac 2023-0 Yes [id number] Apply to Univers Sodium 3-07 area(s) ity of (VOLTAREN) 00:00: daily. [place] 1 % gel 00 [facility] Branch gabapentin 2023-0 Yes [id number] 300mg Take 1 Univers 300 mg 3-07 capsule by ity of capsule 00:00: mouth in [place] [address] the Medical morning Branch and 1 capsule at noon and 1 capsule in the evening. Diclofenac 2023-0 Yes [id number] Apply to Univers Sodium 3-07 area(s) ity of (VOLTAREN) 00:00: daily. [place] 1 % gel [facility] Branch gabapentin 2023-0 Yes [id number] 300mg Take 1 Univers 300 mg 3-07 capsule by ity of capsule 00:00: mouth in [place] [address] the Medical morning Branch and 1 capsule at noon and 1 capsule in the evening. Diclofenac 2023-0 Yes [id number] Apply to Univers Sodium 3-07 area(s) ity of (VOLTAREN) 00:00: daily. [place] 1 % gel [facility] gabapentin 2023-0 Yes [id number] 300mg Take 1 Univers 300 mg 3-07 capsule by ity of capsule 00:00: mouth in [place] [address] the Medical morning [place] and 1 capsule at noon and 1 capsule in the evening. Diclofenac 2023-0 Yes [id number] Apply to Univers Sodium 3-07 area(s) ity of (VOLTAREN) 00:00: daily. [place] 1 % gel [facility] gabapentin 2023-0 Yes [id number] 300mg Take 1 Univers 300 mg 3-07 capsule by ity of capsule 00:00: mouth in [place] [address] the [facility] morning [place] and 1 capsule at noon and 1 capsule in the evening. Diclofenac 2023-0 Yes [id number] Apply to Univers Sodium 3-07 area(s) ity of (VOLTAREN) 00:00: daily. [place] 1 % gel 00 Medical Branch Diclofenac 2023-0 Yes [id number] Apply to Univers Sodium 3-07 area(s) ity of (VOLTAREN) 00:00: daily. [place] 1 % gel 00 Medical Branch Diclofenac 2023-0 Yes [id number] Apply to Univers Sodium 3-07 area(s) ity of (VOLTAREN) 00:00: daily. [place] 1 % gel 00 [facility] gabapentin 2023-0 2023- No [id number] 300mg Take 1 Univers 300 mg 3-07 07-21 capsule by ity of capsule 00:00: 00:00 mouth in [place] 00 :00 the Medical morning Branch and 1 capsule at noon and 1 capsule in the evening. Cefdinir Cefdinir 2021-09- No Cefdinir 300 MG 300 MG 2-09-21 300 MG 00:00: 00:00 00 :00 predniSONE predniSONE 2021-09- No QD predniSONE 20 MG 20 MG 2-09-16 20 MG 00:00: 00:00 00 :00 Diclofenac 2021-09 Yes [id number] Apply to Univers Sodium 1-22 area(s) ity of (VOLTAREN) 00:00: daily. [place] 1 % gel [facility] gabapentin 2021-09 Yes [id number] 100mg Take 1 Univers 100 mg 1-22 capsule by ity of capsule 00:00: mouth in [place] [address] the Medical morning Branch and 1 capsule in the evening. Diclofenac 2021-09 Yes [id number] Apply to Univers Sodium 1-22 area(s) ity of (VOLTAREN) 00:00: daily. [place] 1 % gel [facility] gabapentin 2021-09 Yes [id number] 100mg Take 1 Univers 100 mg 1-22 capsule by ity of capsule 00:00: mouth in [place] [address] the Medical morning Branch and 1 capsule in the evening. Diclofenac 2021-09 Yes [id number] Apply to Univers Sodium 1-22 area(s) ity of (VOLTAREN) 00:00: daily. [place] 1 % gel [facility] gabapentin 2021-09 Yes [id number] 100mg Take 1 Univers 100 mg 1-22 capsule by ity of capsule 00:00: mouth in [place] [address] the Medical morning Branch and 1 capsule in the evening. Diclofenac 2021-09 Yes [id number] Apply to Univers Sodium 1-22 area(s) ity of (VOLTAREN) 00:00: daily. [place] 1 % gel [facility] gabapentin 2021-09 Yes [id number] 100mg Take 1 Univers 100 mg 1-22 capsule by ity of capsule 00:00: mouth in [place] [address] the Medical morning [place] and 1 capsule in the evening. Diclofenac 2021-09 Yes [id number] Apply to Univers Sodium 1-22 area(s) ity of (VOLTAREN) 00:00: daily. [place] 1 % gel Medical Branch gabapentin 2021-09 Yes [id number] 100mg Take 1 Univers 100 mg 1-22 capsule by ity of capsule 00:00: mouth in [place] 00 the Medical morning Branch and 1 capsule in the evening. Diclofenac 2021-09 Yes [id number] Apply to Univers Sodium 1-22 area(s) ity of (VOLTAREN) 00:00: daily. [place] 1 % gel [facility] gabapentin 2021-09 Yes [id number] 100mg Take 1 Univers 100 mg 1-22 capsule by ity of capsule 00:00: mouth in [place] [address] the Medical morning Branch and 1 capsule in the evening. Diclofenac 2021-09 Yes [id number] Apply to Univers Sodium 1-22 area(s) ity of (VOLTAREN) 00:00: daily. [place] 1 % gel [facility] gabapentin 2021-09 Yes [id number] 100mg Take 1 Univers 100 mg 1-22 capsule by ity of capsule 00:00: mouth in [place] [address] the Medical morning [place] and 1 capsule in the evening. Diclofenac 2021-09 Yes [id number] Apply to Univers Sodium 1-22 area(s) ity of (VOLTAREN) 00:00: daily. [place] 1 % gel [facility] gabapentin 2021-09 Yes [id number] 100mg Take 1 Univers 100 mg 1-22 capsule by ity of capsule 00:00: mouth in [place] [address] the Medical morning [place] and 1 capsule in the evening. Diclofenac 2021-09- No [id number] Apply to Univers Sodium 1-22 03-07 area(s) ity of (VOLTAREN) 00:00: 00:[place]. [place] 1 % gel 00 :00 Medical Branch gabapentin 2021-09- No [id number] 100mg Take 1 Univers 100 mg 1-22 03-07 capsule by ity of capsule 00:00: 00:00 mouth in [place] 00 :00 the Medical morning Branch and 1 capsule in the evening. Diclofenac 2021-09- No [id number] Apply to Univers Sodium 1-22 03-07 area(s) ity of (VOLTAREN) 00:00: 00:[place]. [place] 1 % gel 00 :00 Medical Branch gabapentin 2021-09- No [id number] 100mg Take 1 Univers 100 mg 1-22 03-07 capsule by ity of capsule 00:00: 00:00 mouth in [place] 00 :00 the Medical morning Branch and 1 capsule in the evening. triamcinolo 2021-09- No [id number] 40mg Univers ne 10-05 ity of acetonide 19:00: 18:04 [place] (KENALOG) 00 :00 Medical injection Branch 40 mg triamcinolo 2021-09- No [id number] 40mg 40 mg, Univers ne 10-05 Intramuscu ity of acetonide 19:00: 18:04 [place], [place]CE, [place] (KENALOG[place] 00 :00 1 dose, On Medi derrick injection Mon Branch 40 mg 08/05/22 at 1300, Routine triamcinolo 2021-09- No [id number] 40mg Univers ne 10-05 ity of acetonide 19:00: 18:04 [place] (KENALOG) 00 :00 Medical injection Branch 40 mg triamcinolo 2021-09- No [id number] 40mg 40 mg, Univers ne 10-05 Intramuscu ity of acetonide 19:00: 18:04 [place], [place], [place] (KENALOG) 00 :00 1 dose, On Medi derrick injection Mon Branch 40 mg 08/05/22 at 1300, Routine methylPREDN 2021- No [id number] 80mg U nivers ISolone 06-07 ity of acetate 19:30: 18:38 [place] (DEPO-MEDRO 00 :00 Medical L) Branch injection 80 mg methylPREDN 2021- No [id number] 80mg 80 mg, Univers ISolone 06-07 Intramuscu ity o f acetate 19:30: 18:38 [place], ONCE, [place] (DEPO-MEDRO 00 :00 1 dose, On Me dical L) Fri Branch injection 06/07/22 at 80 mg 1430, Routine methylPREDN 2021- No [id number] 80mg U nivers ISolone 06-07 ity of acetate 19:30: 18:38 [place] (DEPO-MEDRO 00 :00 Medical L) Branch injection 80 mg methylPREDN 2021- No [id number] 80mg 80 mg, Univers ISolone 06-07 Intramuscu ity o f acetate 19:30: 18:38 [place], ONCE, [place] (DEPO-MEDRO 00 :00 1 dose, On Me dical L) Fri Branch injection 06/07/22 at 80 mg 1430, Routine Kenalog Kenalog 2021-0 No 40mg Common (Triamcinol (Triamcinol 7-21 S pirit one) one) 00:00: - CHI 00 [facility] Bupivicaine Bupivicaine 2021-0 No 2.5mg Common [place] 7-21 Spirit 00:00: - CHI 00 [facility] Kenalog Kenalog 2021-0 No 40mg Common (Triamcinol (Triamcinol 7-21 S pirit one) one) 00:00: - CHI 00 [facility] Bupivicaine Bupivicaine 2-0 No 2.5mg Common [place] 7-21 Spirit 00:00: - CHI 00 [facility] Kenalog Kenalog 2021-0 No 40mg Common (Triamcinol (Triamcinol 7-21 S pirit one) one) 00:00: - CHI 00 [facility] Bupivicaine Bupivicaine 2-0 No 2.5mg Common [place] 7-21 Spirit 00:00: - CHI 00 [facility] Kenalog Kenalog 2-0 No 40mg Common (Triamcinol (Triamcinol 7-21 S pirit one) one) 00:00: - CHI 00 [facility] Bupivicaine Bupivicaine 2-0 No 2.5mg Common [place] 7-21 Spirit 00:00: - CHI 00 [facility] Kenalog Kenalog 2-0 No 40mg Common (Triamcinol (Triamcinol 7-21 S pirit one) one) 00:00: - CHI 00 [facility] Bupivicaine Bupivicaine 2-0 No 2.5mg Common [place] 7-21 Spirit 00:00: - CHI 00 [facility] Kenalog Kenalog 2-0 No 40mg Common (Triamcinol (Triamcinol 7-21 S pirit one) one) 00:00: - CHI 00 [facility] Bupivicaine Bupivicaine 2-0 No 2.5mg Common [place] 7-21 Spirit 00:00: - CHI 00 [facility] Kenalog Kenalog 2-0 No 40mg Common (Triamcinol (Triamcinol 7-21 S pirit one) one) 00:00: - CHI 00 [facility] Bupivicaine Bupivicaine 2-0 No 2.5mg Common [place] 7-21 Spirit 00:00: - CHI 00 [facility] Kenalog Kenalog 2-0 No 40mg Common (Triamcinol (Triamcinol 4-27 S pirit one) one) 00:00: - CHI 00 [facility] Lidocaine Lidocaine 2-0 No 10mg Com mon 01-16 Spirit 00:00: - CHI 00 [facility] Kenalog Kenalog 2-0 No 40mg Common (Triamcinol (Triamcinol 4-27 S pirit one) one) 00:00: - CHI [facility] Lidocaine Lidocaine 2-0 No 10mg Com mon 01-16 Spirit 00:00: - CHI 00 [facility] Kenalog Kenalog 2-0 No 40mg Common (Triamcinol (Triamcinol 4-27 S pirit one) one) 00:00: - CHI 00 [facility] Lidocaine Lidocaine 2-0 No 10mg Com mon 01-16 Spirit 00:00: - CHI 00 [facility] Kenalog Kenalog 2-0 No 40mg Common (Triamcinol (Triamcinol 4-27 S pirit one) one) 00:00: - CHI 00 [facility] Lidocaine Lidocaine 2-0 No 10mg Com mon 01-16 Spirit 00:00: - CHI 00 [facility] Kenalog Kenalog 2-0 No 40mg Common (Triamcinol (Triamcinol 4-27 S pirit one) one) 00:00: - CHI 00 [facility] Lidocaine Lidocaine 2022-0 No 10mg Com mon 01-16 Spirit 00:00: - CHI 00 [facility] Kenalog Kenalog 2-0 No 40mg Common (Triamcinol (Triamcinol 4-27 S pirit one) one) 00:00: - CHI [facility] Lidocaine Lidocaine 2-0 No 10mg Com 01-16 Spirit 00:00: - CHI [facility] Kenalog Kenalog 2-0 No 40mg Common (Triamcinol (Triamcinol 4-27 S pirit one) one) 00:00: - CHI [facility] Lidocaine Lidocaine 2-0 No 10mg Com 01-16 Spirit 00:00: - CHI [facility] Lidocaine Lidocaine 2022-0 No 10mg Com 12-06 Spirit 00:00: - CHI [facility] Kenalog Kenalog 2-0 No 40mg Common (Triamcinol (Triamcinol 3-17 S pirit one) one) 00:00: - CHI [facility] Lidocaine Lidocaine 2-0 No 10mg Com 12-06 Spirit 00:00: - CHI [facility] Kenalog Kenalog 2-0 No 40mg Common (Triamcinol (Triamcinol 3-17 S pirit one) one) 00:00: - CHI [facility] Lidocaine Lidocaine 2-0 No 10mg Com 12-06 Spirit 00:00: - CHI [facility] Kenalog Kenalog 2-0 No 40mg Common (Triamcinol (Triamcinol 3-17 S pirit one) one) 00:00: - CHI [facility] Lidocaine Lidocaine 2-0 No 10mg Com 12-06 Spirit 00:00: - CHI [facility] Kenalog Kenalog 2-0 No 40mg Common (Triamcinol (Triamcinol 3-17 S pirit one) one) 00:00: - CHI [facility] Lidocaine Lidocaine 2-0 No 10mg Com 12-06 Spirit 00:00: - CHI [facility] Kenalog Kenalog 2-0 No 40mg Common (Triamcinol (Triamcinol 3-17 S pirit one) one) 00:00: - CHI [facility] Lidocaine Lidocaine 2022-0 No 10mg Com 12-06 Spirit 00:00: - CHI [facility] Kenalog Kenalog 0 No 40mg Common (Triamcinol (Triamcinol 3-17 S pirit one) one) 00:00: - CHI [facility] Lidocaine Lidocaine 2021- No 10mg Com mon 3-17 Spirit 00:00: - CHI [facility] Kenalog Kenalog 0 No 40mg Common (Triamcinol (Triamcinol 3-17 S pirit one) one) 00:00: - CHI [facility] carvedilol Yes 3.125mg Take 3.125 Univers (COREG) [...] (two) Medical times Branch daily with meals. [facility] 2020-0 Yes Univers 500 mcg 9-22 ity of tablet 00:00: [address] 2020-0 Yes [facility] 500 mcg 9-22 ity of tablet 00:00: [address] 2020-0 Yes [facility] 500 mcg 9-22 ity of tablet 00:00: [address] 2020-0 Yes [facility] 500 mcg 9-22 ity of tablet 00:00: [address] 2020-0 Yes [facility] 500 mcg 9-22 ity of tablet 00:00: [address] 2020-0 Yes [facility] 500 mcg 9-22 ity of tablet 00:00: [address] 2020-0 Yes [facility] 500 mcg 9-22 ity of tablet 00:00: [address] 2020-0 Yes [facility] 500 mcg 9-22 ity of tablet 00:00: [address] 2020-0 Yes [facility] 500 mcg 9-22 ity of tablet 00:00: [address] 2020-0 Yes [facility] 500 mcg 9-22 ity of tablet 00:00: [address] 2020-0 Yes [facility] 500 mcg 9-22 ity of tablet 00:00: [address] 2020-0 Yes [facility] 500 mcg 9-22 ity of tablet 00:00: [address] 2020-0 Yes [facility] 500 mcg 9-22 ity of tablet 00:00: [address] 2020-0 Yes [facility] 500 mcg 9-22 ity of tablet 00:00: [address] 2020-0 Yes [facility] 500 mcg 9-22 ity of tablet 00:00: [address] 2020-0 Yes [facility] 500 mcg 9-22 ity of tablet 00:00: [address] 2020-0 Yes [facility] 500 mcg 9-22 ity of tablet 00:00: [address] 2020-0 Yes [facility] 500 mcg 9-22 ity of tablet 00:00: [address] 2020-0 Yes [facility] 500 mcg 9-22 ity of tablet 00:00: [address] 2021-0 Yes [facility] 500 mcg 9-22 ity of tablet 00:00: [place] [facility] 2020-0 Yes [facility] 500 mcg 9-22 ity of tablet 00:00: [place] [facility] 2020-0 Yes [facility] 500 mcg 9-22 ity of tablet 00:00: [place] [facility] 2020-0 Yes [facility] 500 mcg 9-22 ity of tablet 00:00: [place] [facility] Yes [facility] 500 mcg 9-22 ity of tablet 00:00: [place] [facility] 2020-0 Yes [facility] 500 mcg 9-22 ity of tablet 00:00: [place] [facility] predniSONE 1-0 Yes 10mg Take 10 mg U nivers 10 mg 8-31 by mouth ity of tablet 00:00: daily. [place] [facility] predniSONE 1-0 Yes 10mg Take 10 mg U nivers 10 mg 8-31 by mouth ity of tablet 00:00: daily. [place] [facility] predniSONE 2020-0 Yes 10mg Take 10 mg U nivers 10 mg 8-31 by mouth ity of tablet 00:00: daily. [place] [facility] predniSONE 2020-0 Yes 10mg Take 10 mg U nivers 10 mg 8-31 by mouth ity of tablet 00:00: daily. [place] [facility] predniSONE 1-0 2022- No 10mg Take 10 mg [facility] 10 mg 8-31 11-14 by mouth ity of tablet 00:00: 00:00 daily. [place] 00 :00 [facility] predniSONE 1-0 2022- No 10mg Take 10 mg [facility] 10 mg 8-31 11-14 by mouth ity of tablet 00:00: 00:00 daily. [place] 00 :00 Medical Branch predniSONE 1-0 Yes TAKE 1 Unive rs 20 mg 8-26 TABLET BY ity of tablet 00:00: MOUTH [place] TWICE Medical DAILY FOR Branch 7 DAYS THEN 1 TABLET FOR 7 DAYS predniSONE 2020-0 Yes TAKE 1 Unive rs 20 mg 8-26 TABLET BY ity of tablet 00:00: MOUTH [place] TWICE Medical DAILY FOR Branch 7 DAYS THEN 1 TABLET FOR 7 DAYS predniSONE 2020-0 Yes TAKE 1 Unive rs 20 mg 8-26 TABLET BY ity of tablet 00:00: MOUTH [place] TWICE Medical DAILY FOR Branch 7 DAYS THEN 1 TABLET FOR 7 DAYS predniSONE 2020-0 Yes TAKE 1 Unive rs 20 mg 8-26 TABLET BY ity of tablet 00:00: MOUTH [place] 00 TWICE Medical DAILY FOR Branch 7 [...] CAPSULE BY ity of capsule 00:00: MOUTH [place] 00 THREE Medical TIMES Branch DAILY NEEDED FOR COUGH fluconazole 0 Yes 200mg Take 200 U nivers 200 mg 8-25 mg by ity of tablet 00:00: [facility] 00 every Medical morning. Branch POLY-IRON Yes Take by Unive rs 150 mg iron 8-25 mouth ity of capsule 00:00: daily. [place] [facility] LIDOCAINE Yes TAKE 15ML Uni vers VISCOUS 2 % 8-25 BY MOUTH ity of solution 00:00: THREE [place] 00 TIMES Medical DAILY Branch NEEDED FOR SORE THROAT benzonatate 0 Yes TAKE 1 [facility] ers 100 mg 8-25 CAPSULE BY ity of capsule 00:00: MOUTH [place] 00 THREE Medical TIMES Branch DAILY NEEDED FOR COUGH fluconazole 0 Yes 200mg Take 200 U nivers 200 mg 8-25 mg by ity of tablet 00:00: mouth [place] 00 every Medical morning. Branch POLY-IRON Yes Take by Unive rs 150 mg iron 8-25 mouth ity of capsule 00:00: daily. [place] [facility] LIDOCAINE 2020-0 Yes TAKE 15ML Uni vers VISCOUS 2 % 8-25 BY MOUTH ity of solution 00:00: THREE [place] 00 TIMES Medical DAILY Branch NEEDED FOR SORE THROAT benzonatate Yes TAKE 1 Univ ers 100 mg 8-25 CAPSULE BY ity of capsule 00:00: MOUTH [place] [address] THREE Medical TIMES Branch DAILY NEEDED FOR COUGH fluconazole 2020-0 Yes 200mg Take 200 U nivers 200 mg 8-25 mg by ity of tablet 00:00: mouth [place] every Medical morning. Branch POLY-IRON 2020-0 Yes Take by Unive rs 150 mg iron 8-25 mouth ity of capsule 00:00: daily. Medical Branch LIDOCAINE 2020-0 Yes TAKE 15ML Uni vers VISCOUS 2 % 8-25 BY MOUTH ity of solution 00:00: THREE [place] TIMES Medical DAILY Branch NEEDED FOR SORE THROAT benzonatate 2020-0 Yes TAKE 1 Univ ers 100 mg 8-25 CAPSULE BY ity of capsule 00:00: MOUTH THREE Medical TIMES Branch DAILY NEEDED FOR COUGH fluconazole 0 Yes 200mg Take 200 U nivers 200 mg 8-25 mg by ity of tablet 00:00: mouth [place] every Medical morning. Branch POLY-IRON 2020-0 Yes Take by Unive rs 150 mg iron 8-25 mouth ity of capsule 00:00: daily. Medical Branch LIDOCAINE 2020-0 Yes TAKE 15ML Uni vers VISCOUS 2 % 8-25 BY MOUTH ity of solution 00:00: THREE 00 TIMES Medical DAILY Branch NEEDED FOR SORE THROAT benzonatate 0 Yes TAKE 1 Univ ers 100 mg 8-25 CAPSULE BY ity of capsule 00:00: MOUTH [place] THREE Medical TIMES Branch DAILY NEEDED FOR COUGH fluconazole 2020-0 Yes 200mg Take 200 U nivers 200 mg 8-25 mg by ity of tablet 00:00: mouth [place] every Medical morning. Branch POLY-IRON 2020-0 Yes Take by Unive rs 150 mg iron 8-25 mouth ity of capsule 00:00: daily. Medical Branch LIDOCAINE 2020-0 Yes TAKE 15ML Uni vers VISCOUS 2 % 8-25 BY MOUTH ity of solution 00:00: THREE [place] TIMES Medical DAILY Branch NEEDED FOR SORE THROAT benzonatate 0 Yes TAKE 1 Univ ers 100 mg 8-25 CAPSULE BY ity of capsule 00:00: MOUTH [place] THREE Medical TIMES Branch DAILY NEEDED FOR COUGH fluconazole 2020-0 Yes 200mg Take 200 U nivers 200 mg 8-25 mg by ity of tablet 00:00: mouth [place] every Medical morning. Branch POLY-IRON 2020-0 Yes Take by Unive rs 150 mg iron 8-25 mouth ity of capsule 00:00: daily. Medical Branch LIDOCAINE 2020-0 Yes TAKE 15ML Uni vers VISCOUS 2 % 8-25 BY MOUTH ity of solution 00:00: THREE [place] TIMES Medical DAILY Branch NEEDED FOR SORE THROAT benzonatate 2020-0 Yes TAKE 1 Univ ers 100 mg 8-25 CAPSULE BY ity of capsule 00:00: MOUTH [place] THREE Medical TIMES Branch DAILY NEEDED FOR COUGH fluconazole 2020-0 Yes 200mg Take 200 U nivers 200 mg 8-25 mg by ity of tablet 00:00: mouth [place] every Medical morning. Branch POLY-IRON 2020-0 Yes Take by Unive rs 150 mg iron 8-25 mouth ity of capsule 00:00: daily. [place] [facility] LIDOCAINE 2020-0 Yes TAKE 15ML Uni vers VISCOUS 2 % 8-25 BY MOUTH ity of solution 00:00: THREE [place] TIMES Medical DAILY Branch NEEDED FOR SORE THROAT benzonatate 2020-0 Yes TAKE 1 Univ ers 100 mg 8-25 CAPSULE BY ity of capsule 00:00: MOUTH [place] THREE Medical TIMES Branch DAILY NEEDED FOR COUGH fluconazole 2020-0 Yes 200mg Take 200 U nivers 200 mg 8-25 mg by ity of tablet 00:00: mouth [place] every Medical morning. Branch POLY-IRON 2020-0 Yes Take by Unive rs 150 mg iron 8-25 mouth ity of capsule 00:00: daily. [place] [facility] LIDOCAINE 2020-0 Yes TAKE 15ML Uni vers VISCOUS 2 % 8-25 BY MOUTH ity of solution 00:00: THREE [place] TIMES Medical DAILY Branch NEEDED FOR SORE THROAT benzonatate 2020-0 Yes TAKE 1 Univ ers 100 mg 8-25 CAPSULE BY ity of capsule 00:00: MOUTH [place] [address] THREE Medical TIMES Branch DAILY NEEDED FOR COUGH fluconazole 2020-0 Yes 200mg Take 200 U nivers 200 mg 8-25 mg by ity of tablet 00:00: mouth [place] [address] every Medical morning. Branch POLY-IRON 2020-0 Yes Take by Unive rs 150 mg iron 8-25 mouth ity of capsule 00:00: daily. [place] [facility] LIDOCAINE 2020-0 Yes TAKE 15ML Uni vers VISCOUS 2 % 8-25 BY MOUTH ity of solution 00:00: THREE [place] TIMES Medical DAILY Branch NEEDED FOR SORE THROAT benzonatate 2020-0 Yes TAKE 1 Univ ers 100 mg 8-25 CAPSULE BY ity of capsule 00:00: MOUTH [place] THREE Medical TIMES Branch DAILY NEEDED FOR COUGH fluconazole 2020-0 Yes 200mg Take 200 U nivers 200 mg 8-25 mg by ity of tablet 00:00: mouth [place] every Medical morning. Branch POLY-IRON 2020-0 Yes Take by Unive rs 150 mg iron 8-25 mouth ity of capsule 00:00: daily. [place] [facility] LIDOCAINE 2020-0 Yes TAKE 15ML Uni vers VISCOUS 2 % 8-25 BY MOUTH ity of solution 00:00: THREE [place] TIMES Medical DAILY Branch NEEDED FOR SORE THROAT benzonatate 0 Yes TAKE 1 Univ ers 100 mg 8-25 CAPSULE BY ity of capsule 00:00: MOUTH [place] THREE Medical TIMES Branch DAILY NEEDED FOR COUGH fluconazole 2020-0 Yes 200mg Take 200 U nivers 200 mg 8-25 mg by ity of tablet 00:00: mouth [place] every Medical morning. Branch POLY-IRON 2020-0 Yes Take by Unive rs 150 mg iron 8-25 mouth ity of capsule 00:00: daily. [place] [facility] LIDOCAINE 2020-0 Yes TAKE 15ML Uni vers VISCOUS 2 % 8-25 BY MOUTH ity of solution 00:00: THREE [place] TIMES Medical DAILY Branch NEEDED FOR SORE THROAT benzonatate 0 Yes TAKE 1 Univ ers 100 mg 8-25 CAPSULE BY ity of capsule 00:00: MOUTH [place] [address] THREE Medical TIMES Branch DAILY NEEDED FOR COUGH fluconazole 2020-0 Yes 200mg Take 200 U nivers 200 mg 8-25 mg by ity of tablet 00:00: [facility] every Medical morning. Branch POLY-IRON 2020-0 Yes Take by Unive rs 150 mg iron 8-25 mouth ity of capsule 00:00: daily. [place] [facility] LIDOCAINE 2020-0 Yes TAKE 15ML Uni vers VISCOUS 2 % 8-25 BY MOUTH ity of solution 00:00: THREE [place] 00 TIMES Medical DAILY Branch NEEDED FOR SORE THROAT benzonatate 2020-0 Yes TAKE 1 Univ ers 100 mg 8-25 CAPSULE BY ity of capsule 00:00: MOUTH [place] [address] THREE Medical TIMES Branch DAILY NEEDED FOR COUGH fluconazole 2020-0 Yes 200mg Take 200 U nivers 200 mg 8-25 mg by ity of tablet 00:00: mouth [place] [address] every Medical morning. Branch POLY-IRON 2021-0 Yes Take by Unive rs 150 mg iron 8-25 mouth ity of capsule 00:00: daily. [place] [facility] LIDOCAINE 2020-0 Yes TAKE 15ML Uni vers VISCOUS 2 % 8-25 BY MOUTH ity of solution 00:00: THREE [place] TIMES Medical DAILY Branch NEEDED FOR SORE THROAT benzonatate 2020-0 Yes TAKE 1 Univ ers 100 mg 8-25 CAPSULE BY ity of capsule 00:00: MOUTH [place] [address] THREE Medical TIMES Branch DAILY NEEDED FOR COUGH fluconazole 2020-0 Yes 200mg Take 200 U nivers 200 mg 8-25 mg by ity of tablet 00:00: mouth [place] [address] every Medical morning. Branch POLY-IRON 2020-0 Yes Take by Unive rs 150 mg iron 8-25 mouth ity of capsule 00:00: daily. [place] [facility] LIDOCAINE 2020-0 Yes TAKE 15ML Uni vers VISCOUS 2 % 8-25 BY MOUTH ity of solution 00:00: [place] Medical DAILY Branch NEEDED FOR SORE THROAT benzonatate 2020-0 Yes TAKE 1 Univ ers 100 mg 8-25 CAPSULE BY ity of capsule 00:00: MOUTH [place] [address] THREE Medical TIMES Branch DAILY NEEDED FOR COUGH fluconazole 2020-0 Yes 200mg Take 200 U nivers 200 mg 8-25 mg by ity of tablet 00:00: mouth [place] [address] every Medical morning. Branch POLY-IRON 2020-0 Yes Take by Unive rs 150 mg iron 8-25 mouth ity of capsule 00:00: daily. [place] [facility] LIDOCAINE 1-0 Yes TAKE 15ML Uni vers VISCOUS 2 % 8-25 BY MOUTH ity of solution 00:00: THREE [place] TIMES Medical DAILY Branch NEEDED FOR SORE THROAT LIDOCAINE 2020-0 Yes TAKE 15ML Uni vers VISCOUS 2 % 8-25 BY MOUTH ity of solution 00:00: [place] TIMES Medical DAILY Branch NEEDED FOR SORE THROAT LIDOCAINE 2020-0 Yes TAKE 15ML Uni vers VISCOUS 2 % 8-25 BY MOUTH ity of solution 00:00: [place] TIMES Medical DAILY Branch NEEDED FOR SORE THROAT LIDOCAINE 2020-0 Yes TAKE 15ML Uni vers VISCOUS 2 % 8-25 BY MOUTH ity of solution 00:00: THREE [place] 00 TIMES Medical DAILY Branch NEEDED FOR SORE THROAT LIDOCAINE Yes TAKE 15ML Uni vers VISCOUS 2 % 8-25 BY MOUTH ity of solution 00:00: THREE [place] 00 TIMES Medical DAILY Branch NEEDED FOR SORE THROAT LIDOCAINE Yes TAKE 15ML Uni vers VISCOUS 2 % 8-25 BY MOUTH ity of solution 00:00: THREE [place] 00 TIMES Medical DAILY Branch NEEDED FOR SORE THROAT LIDOCAINE Yes TAKE 15ML Uni vers VISCOUS 2 % 8-25 BY MOUTH ity of solution 00:00: THREE [place] 00 TIMES Medical DAILY Branch NEEDED FOR SORE THROAT LIDOCAINE Yes TAKE 15ML Uni vers VISCOUS 2 % 8-25 BY MOUTH ity of solution 00:00: THREE [place] 00 TIMES Medical DAILY Branch NEEDED FOR SORE THROAT LIDOCAINE Yes TAKE 15ML Uni vers VISCOUS 2 % 8-25 BY MOUTH ity of solution 00:00: THREE [place] 00 TIMES Medical DAILY Branch NEEDED FOR SORE THROAT LIDOCAINE Yes TAKE 15ML Uni vers VISCOUS 2 % 8-25 BY MOUTH ity of solution 00:00: THREE [place] 00 TIMES Medical DAILY Branch NEEDED FOR SORE THROAT LIDOCAINE Yes TAKE 15ML Uni vers VISCOUS 2 % 8-25 BY MOUTH ity of solution 00:00: THREE [place] 00 TIMES Medical DAILY Branch NEEDED FOR SORE THROAT benzonatate 2022- No TAKE 1 Uni vers 100 mg 8-25 03-07 CAPSULE BY ity of capsule 00:00: 00:00 MOUTH [place] 00 :00 THREE Medical TIMES Branch DAILY NEEDED FOR COUGH fluconazole 2022- No 200mg Take 1 Un merry 200 mg 8-25 03-07 tablet by ity of tablet 00:00: 00:00 mouth [place] 00 :00 every Medical morning. Branch POLY-IRON 2022- No Take by Univ ers 150 mg iron 8-25 03-07 mouth ity of capsule 00:00: 00:00 daily. [place] 00 :00 Medical Branch benzonatate 2022- No TAKE 1 Uni vers 100 mg 8-25 03-07 CAPSULE BY ity of capsule 00:00: 00:00 MOUTH [place] 00 :00 THREE Medical TIMES Branch DAILY NEEDED FOR COUGH fluconazole 2022- No 200mg Take 1 Un merry 200 mg 8-25 03-07 tablet by ity of tablet 00:00: 00:00 mouth [place] 00 :00 every Medical morning. Branch POLY-IRON 3- No Take by [facility] ers 150 mg iron 8-11-26 mouth ity [...] tablet 00:00: mouth 2 (two) Medical times [place] daily. ELIQUIS 5 Yes 5mg Take 5 [...] ity of tablet 00:00: mouth 2 [place] (two) Medical times Branch daily. ELIQUIS 5 [...] mg) 00 daily. Medical capsule Branch acetaZOLAMI 1-0 Yes 250mg Take 1 Uni vers [place] 250 mg 7-28 tablet by ity o f tablet 00:00: mouth in [place] 00 the Medical morning Branch and 1 tablet in the evening. ELIQUIS 5 2020-0 Yes 5mg Take 1 Univer s mg tablet 7-28 tablet by ity o f 00:00: mouth in [place] 00 the Medical morning Branch and 1 tablet in the evening. acetaZOLAMI 1-0 Yes 250mg Take 1 Uni vers DE 250 mg 7-28 tablet by ity o f tablet 00:00: mouth in [place] 00 the Medical morning Branch and 1 tablet in the evening. ELIQUIS 5 2020-0 Yes 5mg Take 1 Univer s mg tablet 7-28 tablet by ity o f 00:00: mouth in [place] 00 the Medical morning Branch and 1 tablet in the evening. acetaZOLAMI 2020-0 Yes 250mg Take 1 Uni vers DE 250 mg 7-28 tablet by ity o f tablet 00:00: mouth in [place] 00 the Medical morning Branch and 1 tablet in the evening. ELIQUIS 5 1-0 Yes 5mg Take 1 Univer s mg tablet 7-28 tablet by ity o f 00:00: mouth in [place] 00 the Medical morning Branch and 1 tablet in the evening. acetaZOLAMI 1-0 Yes 250mg Take 1 Uni vers DE 250 mg 7-28 tablet by ity o f tablet 00:00: mouth in [place] 00 the Medical morning Branch and 1 tablet in the evening. ELIQUIS 5 2020-0 Yes 5mg Take 1 Univer s mg tablet 7-28 tablet by ity o f 00:00: mouth in [place] 00 the Medical morning Branch and 1 tablet in the evening. acetaZOLAMI 1-0 Yes 250mg Take 1 Uni vers [place] 250 mg 7-28 tablet by ity o f tablet 00:00: mouth in [place] 00 the Medical morning Branch and 1 tablet in the evening. ELIQUIS 5 2020-0 Yes 5mg Take 1 Univer s mg tablet 7-28 tablet by ity o f 00:00: mouth in [place] 00 the Medical morning Branch and 1 tablet in the evening. acetaZOLAMI 2021-0 Yes 250mg Take 1 Uni vers DE 250 mg 7-28 tablet by ity o f tablet 00:00: mouth in [place] 00 the Medical morning Branch and 1 tablet in the evening. ELIQUIS 5 2021-0 Yes 5mg Take 1 Univer s mg tablet 7-28 tablet by ity o f 00:00: mouth in [place] 00 the Medical morning Branch and 1 tablet in the evening. acetaZOLAMI 2021-0 Yes 250mg Take 1 Uni vers DE 250 mg 7-28 tablet by ity o f tablet 00:00: mouth in [place] 00 the Medical morning Branch and 1 tablet in the evening. ELIQUIS 5 1-0 Yes 5mg Take 1 Univer s mg tablet 7-28 tablet by ity o f 00:00: mouth in [place] 00 the Medical morning Branch and 1 tablet in the evening. acetaZOLAMI 2021-0 Yes 250mg Take 1 Uni vers DE 250 mg 7-28 tablet by ity o f tablet 00:00: mouth in [place] 00 the Medical morning Branch and 1 tablet in the evening. ELIQUIS 5 1-0 Yes 5mg Take 1 Univer s mg tablet 7-28 tablet by ity o f 00:00: mouth in [place] 00 the Medical morning Branch and 1 tablet in the evening. acetaZOLAMI 1-0 Yes 250mg Take 1 Uni vers DE 250 mg 7-28 tablet by ity o f tablet 00:00: mouth in [place] 00 the Medical morning Branch and 1 tablet in the evening. ELIQUIS 5 2021-0 Yes 5mg Take 1 Univer s mg tablet 7-28 tablet by ity o f 00:00: mouth in [place] 00 the Medical morning Branch and 1 tablet in the evening. acetaZOLAMI 1-0 Yes 250mg Take 1 Uni vers DE 250 mg 7-28 tablet by ity o f tablet 00:00: mouth in [place] 00 the Medical morning Branch and 1 tablet in the evening. ELIQUIS 5 1-0 Yes 5mg Take 1 Univer s mg tablet 7-28 tablet by ity o f 00:00: mouth in [place] 00 the Medical morning Branch and 1 tablet in the evening. docusate 2020-0 2023- No TAKE 2 Univer s 100 mg 7-28 03-07 CAPSULES ity of capsule 00:00: 00:00 BY [...] MG 4-02 20 MG 00:00: 00 albuterol 2020- Yes 2.5mg Inhale 2.5 U nivers (PROVENTIL) [...] mcg/actuati on inhalation disk guaiFENesin 0 Yes [id number] 100mg Take 5 mL [facility] 100 mg/5 mL 2-25 by mouth ity of solution 00:00: every 4 [place] 00 (four) Medical hours as Branch needed for Cough. furosemide 2020-0 Yes [id number] 40mg Take 2 [facility] 20 mg 2-25 tablets by ity of tablet 00:00: mouth [place] 00 daily. Medical Branch guaiFENesin 0 Yes [id number] 100mg Take 5 mL [facility] 100 mg/5 mL 2-25 by mouth ity of solution 00:00: every 4 [place] 00 (four) Medical hours as Branch needed for Cough. furosemide 2020-0 Yes [id number] 40mg Take 2 [facility] 20 mg 2-25 tablets by ity of tablet 00:00: mouth [place] 00 daily. Medical Branch guaiFENesin 1-0 Yes [id number] 100mg Take 5 mL [facility] 100 mg/5 mL 2-25 by mouth ity of solution 00:00: every 4 [place] 00 (four) Medical hours as Branch needed for Cough. furosemide 2020-0 Yes [id number] 40mg Take 2 [facility] 20 mg 2-25 tablets by ity of tablet 00:00: mouth [place] 00 daily. Medical Branch guaiFENesin 2020-0 Yes [id number] 100mg Take 5 mL [facility] 100 mg/5 mL 2-25 by mouth ity of solution 00:00: every 4 [place] 00 (four) Medical hours as Branch needed for Cough. furosemide 2020-0 Yes [id number] 40mg Take 2 [facility] 20 mg 2-25 tablets by ity of tablet 00:00: mouth [place] 00 daily. Medical Branch guaiFENesin 2020-0 Yes [id number] 100mg Take 5 mL [facility] 100 mg/5 mL 2-25 by mouth ity of solution 00:00: every 4 [place] 00 (four) Medical hours as Branch needed for Cough. furosemide 2020-0 Yes [id number] 40mg Take 2 [facility] 20 mg 2-25 tablets by ity of tablet 00:00: mouth [place] 00 daily. Medical Branch guaiFENesin 2020-0 Yes [id number] 100mg Take 5 mL [facility] 100 mg/5 mL 2-25 by mouth ity of solution 00:00: every 4 [place] 00 (four) Medical hours as Branch needed for Cough. furosemide 2020-0 Yes [id number] 40mg Take 2 [facility] 20 mg 2-25 tablets by ity of tablet 00:00: mouth [place] 00 daily. Medical Branch guaiFENesin 2020-0 Yes [id number] 100mg Take 5 mL [facility] 100 mg/5 mL 2-25 by mouth ity of solution 00:00: every 4 [place] 00 (four) Medical hours as Branch needed for Cough. furosemide 1-0 Yes [id number] 40mg Take 2 [facility] 20 mg 2-25 tablets by ity of tablet 00:00: mouth [place] 00 daily. Medical Branch guaiFENesin 2020-0 Yes [id number] 100mg Take 5 mL [facility] 100 mg/5 mL 2-25 by mouth ity of solution 00:00: every 4 [place] 00 (four) Medical hours as Branch needed for Cough. furosemide 2020-0 Yes [id number] 40mg Take 2 [facility] 20 mg 2-25 tablets by ity of tablet 00:00: mouth [place] 00 daily. Medical Branch guaiFENesin 2020-0 Yes [id number] 100mg Take 5 mL [facility] 100 mg/5 mL 2-25 by mouth ity of solution 00:00: every 4 [place] 00 (four) Medical hours as Branch needed for Cough. furosemide 2020-0 Yes [id number] 40mg Take 2 [facility] 20 mg 2-25 tablets by ity of tablet 00:00: mouth [place] 00 daily. Medical Branch guaiFENesin 2020-0 Yes [id number] 100mg Take 5 mL [facility] 100 mg/5 mL 2-25 by mouth ity of solution 00:00: every 4 [place] 00 (four) Medical hours as Branch needed for Cough. furosemide 2020-0 Yes [id number] 40mg Take 2 [facility] 20 mg 2-25 tablets by ity of tablet 00:00: mouth [place] 00 daily. Medical Branch guaiFENesin 2020-0 Yes [id number] 100mg Take 5 mL [facility] 100 mg/5 mL 2-25 by mouth ity of solution 00:00: every 4 [place] 00 (four) Medical hours as Branch needed for Cough. furosemide 2020-0 Yes [id number] 40mg Take 2 [facility] 20 mg 2-25 tablets by ity of tablet 00:00: mouth [place] 00 daily. Medical Branch guaiFENesin 2020-0 Yes [id number] 100mg Take 5 mL [facility] 100 mg/5 mL 2-25 by mouth ity of solution 00:00: every 4 [place] 00 (four) Medical hours as Branch needed for Cough. furosemide 2020-0 Yes [id number] 40mg Take 2 [facility] 20 mg 2-25 tablets by ity of tablet 00:00: mouth [place] 00 daily. Medical Branch guaiFENesin 2020-0 Yes [id number] 100mg Take 5 mL [facility] 100 mg/5 mL 2-25 by mouth ity of solution 00:00: every 4 [place] 00 (four) Medical hours as Branch needed for Cough. furosemide 2020-0 Yes [id number] 40mg Take 2 [facility] 20 mg 2-25 tablets by ity of tablet 00:00: mouth [place] 00 daily. Medical Branch guaiFENesin 2021-0 Yes [id number] 100mg Take 5 mL [facility] 100 mg/5 mL 2-25 by mouth ity of solution 00:00: every 4 [place] 00 (four) Medical hours as Branch needed for Cough. furosemide 2020-0 Yes [id number] 40mg Take 2 [facility] 20 mg 2-25 tablets by ity of tablet 00:00: mouth [place] 00 daily. Medical Branch guaiFENesin 2020-0 Yes [id number] 100mg Take 5 mL [facility] 100 mg/5 mL 2-25 by mouth ity of solution 00:00: every 4 [place] 00 (four) Medical hours as Branch needed for Cough. furosemide 2020-0 Yes [id number] 40mg Take 2 [facility] 20 mg 2-25 tablets by ity of tablet 00:00: mouth [place] 00 daily. Medical Branch furosemide 2020-0 Yes [id number] 40mg Take 2 [facility] 20 mg 2-25 tablets by ity of tablet 00:00: mouth [place] 00 daily. Medical Branch furosemide 2020-0 Yes [id number] 40mg Take 2 [facility] 20 mg 2-25 tablets by ity of tablet 00:00: mouth [place] 00 daily. Medical Branch furosemide 2020-0 Yes [id number] 40mg Take 2 [facility] 20 mg 2-25 tablets by ity of tablet 00:00: mouth [place] 00 daily. Medical Branch furosemide 2020-0 Yes [id number] 40mg Take 2 [facility] 20 mg 2-25 tablets by ity of tablet 00:00: mouth [place] 00 daily. Medical Branch furosemide 2020-0 Yes [id number] 40mg Take 2 [facility] 20 mg 2-25 tablets by ity of tablet 00:00: mouth [place] 00 daily. Medical Branch furosemide 2020-0 Yes [id number] 40mg Take 2 [facility] 20 mg 2-25 tablets by ity of tablet 00:00: mouth [place] 00 daily. Medical Branch furosemide 2020-0 Yes [id number] 40mg Take 2 [facility] 20 mg 2-25 tablets by ity of tablet 00:00: mouth [place] 00 daily. Medical Branch furosemide 2020-0 Yes [id number] 40mg Take 2 [facility] 20 mg 2-25 tablets by ity of tablet 00:00: mouth [place] 00 daily. Medical Branch furosemide 2020-0 Yes [id number] 40mg Take 2 [facility] 20 mg 2-25 tablets by ity of tablet 00:00: mouth [place] 00 daily. Medical Branch furosemide 2020-0 Yes [id number] 40mg Take 2 [facility] 20 mg 2-25 tablets by ity of tablet 00:00: mouth [place] 00 daily. Medical Branch guaiFENesin 2020-0 2022- No [id number] 100mg Take 5 mL [facility] 100 mg/5 mL 2-25 03-07 by mouth ity of solution 00:00: 00:00 every 4 [place] 00 :00 (four) Medical hours as Branch needed for Cough. guaiFENesin 2020-0 2022- No [id number] 100mg Take 5 mL [facility] 100 mg/5 [...] mouth 00 daily. Medical Branch pantoprazol 1-0 2023- No 40mg Take 1 Uni vers e 40 mg EC 2-21 03-07 tablet by ity of tablet 00:00: 00:00 mouth [place] 00 :00 daily. Medical Branch pantoprazol 2021-0 3- No 40mg Take 1 Uni vers e 40 mg EC 2-21 03-07 tablet by ity of tablet 00:00: 00:00 mouth [place] 00 :00 daily. Medical Branch gabapentin 1-0 Yes 300mg Take 1 Univ ers 300 mg 2-20 capsule by ity of capsule 00:00: mouth 2 00 (two) Medical times Branch daily. melatonin 3 2020-0 Yes 6mg Take 2 Univ ers mg tablet 2-20 tablets by ity of 00:00: mouth at [place] 00 bedtime. Medical Branch gabapentin 2021-0 Yes 300mg Take 1 Univ ers 300 mg 2-20 capsule by ity of capsule 00:00: mouth 2 00 (two) Medical times Branch daily. melatonin 3 1-0 Yes 6mg Take 2 Univ ers mg tablet 2-20 tablets by ity of 00:00: mouth at [place] 00 bedtime. Medical Branch gabapentin 2021-0 Yes 300mg Take 1 Univ ers 300 mg 2-20 capsule by ity of capsule 00:00: mouth 2 (two) Medical times Branch daily. melatonin 3 2021-0 Yes 6mg Take 2 Univ ers mg tablet 2-20 tablets by ity of 00:00: mouth at [place] [address] bedtime. Medical Branch gabapentin 2021-0 Yes 300mg Take 1 Univ ers 300 mg 2-20 capsule by ity of capsule 00:00: mouth 2 () Medical times Branch daily. melatonin 3 1-0 Yes 6mg Take 2 Univ ers mg tablet 2-20 tablets by ity of 00:00: mouth at [place] [address] bedtime. Medical Branch gabapentin 202-0 Yes 300mg Take 1 Univ ers 300 mg 2-20 capsule by ity of capsule 00:00: mouth 2 () Medical times Branch daily. melatonin 3 1-0 Yes 6mg Take 2 Univ ers mg tablet 2-20 tablets by ity of 00:00: mouth at [place] [address] bedtime. Medical Branch gabapentin 2021-0 Yes 300mg Take 1 Univ ers 300 mg 2-20 capsule by ity of capsule 00:00: mouth 2 [place] [facility] Medical times Branch daily. melatonin 3 2020-0 Yes 6mg Take 2 Univ ers mg tablet 2-20 tablets by ity of 00:00: mouth at [place] [address] bedtime. Medical Branch gabapentin 1-0 Yes 300mg Take 1 Univ ers 300 mg 2-20 capsule by ity of capsule 00:00: mouth 2 [place] [facility] Medical times Branch daily. melatonin 3 1-0 Yes 6mg Take 2 Univ ers mg tablet 2-20 tablets by ity of 00:00: mouth at [place] [address] bedtime. Medical Branch gabapentin 2021-0 Yes 300mg Take 1 Univ ers 300 mg 2-20 capsule by ity of capsule 00:00: mouth 2 [place] (two) Medical times Branch daily. melatonin 3 1-0 Yes 6mg Take 2 Univ ers mg tablet 2-20 tablets by ity of 00:00: mouth at [place] [address] bedtime. Medical Branch gabapentin 2021-0 Yes 300mg Take 1 Univ ers 300 mg 2-20 capsule by ity of capsule 00:00: mouth 2 [place] (two) Medical times Branch daily. melatonin 3 2021-0 Yes 6mg Take 2 Univ ers mg tablet 2-20 tablets by ity of 00:00: mouth at [place] [address] bedtime. Medical Branch gabapentin 2021-0 Yes 300mg Take 1 Univ ers 300 mg 2-20 capsule by ity of capsule 00:00: mouth 2 () Medical times Branch daily. melatonin 3 1-0 Yes 6mg Take 2 Univ ers mg tablet 2-20 tablets by ity of 00:00: mouth at [place] [address] bedtime. Medical Branch gabapentin 2021-0 Yes 300mg Take 1 Univ ers 300 mg 2-20 capsule by ity of capsule 00:00: mouth 2 (two) Medical times Branch daily. melatonin 3 2020-0 Yes 6mg Take 2 Univ ers mg tablet 2-20 tablets by ity of 00:00: mouth at [place] [address] bedtime. Medical Branch gabapentin 202-0 Yes 300mg Take 1 Univ ers 300 mg 2-20 capsule by ity of capsule 00:00: mouth 2 () Medical times Branch daily. melatonin 3 2020-0 Yes 6mg Take 2 Univ ers mg tablet 2-20 tablets by ity of 00:00: mouth at [place] [address] bedtime. Medical Branch gabapentin 2021-0 Yes 300mg Take 1 Univ ers 300 mg 2-20 capsule by ity of capsule 00:00: mouth 2 [place] [facility] Medical times Branch daily. melatonin 3 2020-0 Yes 6mg Take 2 Univ ers mg tablet 2-20 tablets by ity of 00:00: mouth at [place] [address] bedtime. Medical Branch gabapentin 2020-0 Yes 300mg Take 1 Univ ers 300 mg 2-20 capsule by ity of capsule 00:00: mouth 2 [place] [facility] Medical times Branch daily. melatonin 3 2020-0 Yes 6mg Take 2 Univ ers mg tablet 2-20 tablets by ity of 00:00: mouth at [place] [address] bedtime. Medical Branch gabapentin 2021-0 Yes 300mg Take 1 Univ ers 300 mg 2-20 capsule by ity of capsule 00:00: mouth 2 [place] (two) Medical times Branch daily. melatonin 3 2021-0 Yes 6mg Take 2 Univ ers mg tablet 2-20 tablets by ity of 00:00: mouth at [place] [address] bedtime. Medical Branch melatonin 3 2020-0 Yes 6mg Take 2 Univ ers mg tablet 2-20 tablets by ity of 00:00: mouth at [place] [address] bedtime. Medical Branch melatonin 3 2021-0 Yes 6mg Take 2 Univ ers mg tablet 2-20 tablets by ity of 00:00: mouth at [place] [address] bedtime. Medical Branch melatonin 3 2020-0 Yes 6mg Take 2 Univ ers mg tablet 2-20 tablets by ity of 00:00: mouth at [place] [address] bedtime. Medical Branch melatonin 3 2020-0 Yes 6mg Take 2 Univ ers mg tablet 2-20 tablets by ity of 00:00: mouth at [place] [address] bedtime. Medical Branch melatonin 3 2020-0 Yes 6mg Take 2 Univ ers mg tablet 2-20 tablets by ity of 00:00: mouth at [place] [address] bedtime. Medical Branch melatonin 3 2020-0 Yes 6mg Take 2 Univ ers mg tablet 2-20 tablets by ity of 00:00: mouth at [place] [address] bedtime. Medical Branch melatonin 3 2020-0 Yes 6mg Take 2 Univ ers mg tablet 2-20 tablets by ity of 00:00: mouth at [place] [address] bedtime. Medical Branch melatonin 3 2020-0 Yes 6mg Take 2 Univ ers mg tablet 2-20 tablets by ity of 00:00: mouth at [place] [address] bedtime. Medical Branch melatonin 3 2020-0 Yes 6mg Take 2 Univ ers mg tablet 2-20 tablets by ity of 00:00: mouth at [place] [address] bedtime. Medical Branch melatonin 3 2020-0 Yes 6mg Take 2 Univ ers mg tablet 2-20 tablets by ity of 00:00: mouth at [place] [address] bedtime. Medical Branch gabapentin 2020-0 3- No 300mg Take 1 Uni vers 300 mg 2-20 -07 capsule by ity of capsule 00:00: 00:00 mouth 2 [place] 00 :00 (two) Medical times Branch daily. gabapentin 2020-0 2022- No 300mg Take 1 Uni vers 300 mg 2-20 -07 capsule by ity of capsule 00:00: 00:00 mouth 2 [place] 00 :00 (two) Medical times Branch daily. fluticasone Yes 1{spray Use 1 Un merry propionate 6-24 } Lancing in ity o f 50 00:00: each [place] mcg/actuati 00 nostril Medic al on nasal daily. Branch spray fluticasone Yes 1{spray Use 1 Un merry propionate 6-24 } [place] in ity o f 50 00:00: each [place] mcg/actuati 00 nostril Medic al on nasal daily. Branch spray fluticasone 2019-0 Yes 1{spray Use 1 Un merry propionate 6-24 } Lancing in ity o f 50 00:00: each [place] mcg/actuati 00 nostril Medic al on nasal daily. Branch spray fluticasone 2019-0 Yes 1{spray Use 1 Un merry propionate 6-24 } [place]ancing in ity o f 50 00:00: each [place] mcg/actuati 00 nostril Medic al on nasal daily. Branch spray fluticasone 2019-0 Yes 1{spray Use 1 Un merry propionate 6-24 } [place]ancing in ity o f 50 00:00: each [place] mcg/actuati 00 nostril Medic al on nasal daily. Branch spray fluticasone 2019-0 Yes 1{spray Use 1 Un merry propionate 6-24 } [place]ancing in ity o f 50 00:00: each [place] mcg/actuati 00 nostril Medic al on nasal daily. Branch spray fluticasone 2018-0 Yes 1{spray Use 1 Un merry propionate 6-24 } [place]ancing in ity o f 50 00:00: each [place] mcg/actuati 00 nostril Medic al on nasal daily. Branch spray fluticasone 2018-0 Yes 1{spray Use 1 Un merry propionate 6-24 } [place] in ity o f 50 00:00: each [place] mcg/actuati 00 nostril Medic al on nasal daily. Branch spray fluticasone 2019-0 Yes 1{spray Use 1 Un merry propionate 6-24 } [place] in ity o f 50 00:00: each [place] mcg/actuati 00 nostril Medic al on nasal daily. Branch spray fluticasone 2019-0 Yes 1{spray Use 1 Un merry propionate 6-24 } [place] in ity o f 50 00:00: each [place] mcg/actuati 00 nostril Medic al on nasal daily. Branch spray fluticasone 2019-0 Yes 1{spray Use 1 Un merry propionate 6-24 } [place] in ity o f 50 00:00: each [place] mcg/actuati 00 nostril Medic al on nasal daily. Branch spray fluticasone 2019-0 Yes 1{spray Use 1 Un merry propionate 6-24 } [place] in ity o f 50 00:00: each [place] mcg/actuati 00 nostril Medic al on nasal daily. Branch spray fluticasone 2019-0 Yes 1{spray Use 1 Un merry propionate 6-24 } [place]ancing in ity o f 50 00:00: each [place] mcg/actuati 00 nostril Medic al on nasal daily. Branch spray fluticasone 2019-0 Yes 1{spray Use 1 Un merry propionate 6-24 } [place] in ity o f 50 00:00: each [place] mcg/actuati 00 nostril Medic al on nasal daily. Branch spray fluticasone 2019-0 Yes 1{spray Use 1 Un merry propionate 6-24 } [place] in ity o f 50 00:00: each [place] mcg/actuati 00 nostril Medic al on nasal daily. Branch spray fluticasone 2019-0 Yes 1{spray Use 1 Un merry propionate 6-24 } [place]ancing in ity o f 50 00:00: each [place] mcg/actuati 00 nostril Medic al on nasal daily. Branch spray fluticasone 2018-0 Yes 1{spray Use 1 Un merry propionate 6-24 } [place]ancing in ity o f 50 00:00: each [place] mcg/actuati 00 nostril Medic al on nasal daily. Branch spray fluticasone 2018-0 Yes 1{spray Use 1 Un merry propionate 6-24 } [place] in ity o f 50 00:00: each [place] mcg/actuati 00 nostril Medic al on nasal daily. Branch spray fluticasone 2019-0 Yes 1{spray Use 1 Un merry propionate 6-24 } [place] in ity o f 50 00:00: each [place] mcg/actuati 00 nostril Medic al on nasal daily. Branch spray fluticasone 2019-0 Yes 1{spray Use 1 Un merry propionate 6-24 } [place] in ity o f 50 00:00: each [place] mcg/actuati 00 nostril Medic al on nasal daily. Branch spray fluticasone 2019-0 Yes 1{spray Use 1 Un merry propionate 6-24 } [place] in ity o f 50 00:00: each [place] mcg/actuati 00 nostril Medic al on nasal daily. Branch spray fluticasone 2019-0 Yes 1{spray Use 1 Un merry propionate 6-24 } [place] in ity o f 50 00:00: each [place] mcg/actuati 00 nostril Medic al on nasal daily. Branch spray fluticasone Yes 1{spray Use 1 Un merry propionate 6-24 } [place] in ity o f 50 00:00: each [place] mcg/actuati 00 nostril Medic al on nasal daily. Branch spray fluticasone Yes 1{spray Use 1 Un merry propionate 6-24 } [place] in ity o f 50 00:00: each [place] mcg/actuati 00 nostril Medic al on nasal daily. Branch spray fluticasone Yes 1{spray Use 1 Un merry propionate 6-24 } [place] in ity o f 50 00:00: each [...] both eyes [place] drops 00 daily. [facility] Branch latanoprost 2018-0 Yes 1[drp] Place 1 U nivers 0.005 % 6-23 Drop in ity of ophthalmic 00:00: [place] drops 00 daily. [facility] Branch latanoprost 2018-0 Yes 1[drp] Place 1 U nivers 0.005 % 6-23 Drop in ity of ophthalmic 00:00: [place] drops 00 daily. [facility] Branch latanoprost 2018-0 Yes 1[drp] Place 1 U nivers 0.005 % 6-23 Drop in ity of ophthalmic 00:00: [place] drops 00 daily. [facility] Branch latanoprost 2018-0 Yes 1[drp] Place 1 U nivers 0.005 % 6-23 Drop in ity of ophthalmic 00:00: [place] 00 daily. [facility] Kenalog Kenalog 2018-0 No 40mg Common (Triamcinol (Triamcinol 4-25 S pirit one) one) 00:00: - [facility] 00 [facility] Kenalog Kenalog 2018-0 No 40mg Common (Triamcinol (Triamcinol 4-25 S pirit one) one) 00:00: - [facility] 00 [facility] Kenalog Kenalog 2018-0 No 40mg Common (Triamcinol (Triamcinol 4-25 S pirit one) one) 00:00: - [facility] 00 [facility] Kenalog Kenalog 2018-0 No 40mg Common (Triamcinol (Triamcinol 4-25 S pirit one) one) 00:00: - [facility] 00 [facility] Kenalog Kenalog 2018-0 No 40mg Common (Triamcinol (Triamcinol 4-25 S pirit one) one) 00:00: - [facility] Brigido Fofana 2017-0 No 40mg Common (Triamcinol (Triamcinol 4-25 S pirit one) one) 00:00: - [facility] Brigido Fofana 2017-0 No 40mg Common (Triamcinol (Triamcinol 4-25 S pirit one) one) 00:00: - [facility] azithromyci 2017-0 Yes 250mg QD Take 1 [...] tablets daily until tablets run out.. predniSONE 2016- Yes Take 4 [facility] S [...] 2023-01-14 122 mm[Hg] University of pressure 18:20:00 [facility] Diastolic blood 2023-01-14 70 mm[Hg] University o f pressure 18:20:00 [facility] Heart rate 2023-01-14 50 /min University 18:20:00 [facility] Body height 2023-01-14 175.3 cm University 18:20:00 [facility] Body weight 2023-01-14 133.584 kg [facility] 18:20:00 [facility] BMI 2023-01-14 43.49 kg/m2 [facility] 18:20:00 [facility] Oxygen saturation 2023-01-14 89 /min on personal O2 Universi ty of in Arterial blood 18:20:00 [facility] by Pulse oximetry Branch Systolic blood 2022-11-26 148 mm[Hg] University of pressure 21:03:00 [place] [facility] Diastolic blood 2022-11-26 87 mm[Hg] University o f pressure 21:03:00 [facility] Heart rate 2022-11-26 87 /min University of 21:03:00 [facility] Body height 2022-11-26 175.3 cm University of 21:03:00 [facility] Body weight 2022-11-26 133.358 kg University of 21:03:00 [facility] BMI 2022-11-26 43.42 kg/m2 University of 21:03:00 [facility] Oxygen saturation 2022-11-26 88 /min on oxygen tank [facility] in Arterial blood 21:03:00 [facility] by Pulse oximetry [place] height 2022-09-11 69 [in_i] [facility] - 13:20:00 [facility] weight 2022-09-11 284 [lb_av] [facility] - 13:20:00 [facility] bmi 2022-09-11 41.93 kg/m2 [facility] - 13:20:00 [facility] oximetry 2022-09-11 94 % [facility] - 13:20:00 [facility] Systolic blood 2022-08-13 158 mm[Hg] University of pressure 20:06:00 [facility] Diastolic blood 2022-08-13 100 mm[Hg] University o f pressure 20:06:00 [facility] Heart rate 2022-08-13 89 /min University of 20:06:00 [facility] Respiratory rate 2022-08-13 16 /min University of 20:06:00 [facility] Body height 2022-08-13 175.3 cm University of 20:06:00 [facility] Body weight 2022-08-13 130.636 kg University of 20:06:00 [facility] BMI 2022-08-13 42.53 kg/m2 University of 20:06:00 [facility] Oxygen saturation 2022-08-13 87 /min University of in Arterial blood 20:06:00 [place] [facility] by Pulse oximetry [place] Systolic blood 2022-08-05 111 mm[Hg] University of pressure 17:15:00 [facility] Diastolic blood 2022-08-05 73 mm[Hg] University o f pressure 17:15:00 [facility] Heart rate 2022-08-05 97 /min University of 17:15:00 [facility] Respiratory rate 2022-08-05 26 /min University of 17:15:00 [facility] Body height 2022-08-05 175.3 cm University of 17:15:00 [facility] Body weight 2022-08-05 130.636 kg University of 17:15:00 [facility] BMI 2022-08-05 42.53 kg/m2 University of 17:15:00 [facility] Oxygen saturation 2022-08-05 86 /min [facility] Arterial blood 17:15:00 [facility] Pulse oximetry [place] Systolic blood 2022-06-07 153 mm[Hg] University of pressure 18:07:00 [facility] Diastolic blood 2022-06-07 97 mm[Hg] [place] o f pressure 18:07:00 [facility] Heart rate 2022-06-07 96 /min [place] of 18:07:00 [facility] Body temperature 2022-06-07 36.39 Sapna University of 18:07:00 [facility] Body height 2022-06-07 175.3 cm University of 18:07:00 [facility] Body weight 2022-06-07 130.636 kg University of 18:07:00 [facility] BMI 2022-06-07 42.53 kg/m2 University of 18:07:00 [facility] height 2022-05-07 69 [in_i] [facility] - 14:40:00 [facility] weight 2022-05-07 282 [lb_av] [facility] - 14:40:00 [facility] temperature 2022-05-07 98.0 [degF] [facility] - 14:40:00 [facility] bmi 2022-05-07 41.64 kg/m2 [facility] - 14:40:00 [facility] oximetry 2022-05-07 96 % [facility] - 14:40:00 [facility] respiratory rate 2022-05-07 16 /min [facility] - 14:40:00 [facility] blood pressure 2022-05-07 132 mm[Hg] [facility] - systolic 14:40:00 [facility] blood pressure 2022-05-07 86 mm[Hg] [facility] - diastolic 14:40:00 [facility] Procedures Procedure Date / Time Performing Clinician Source Performed [facility] PATIENT FINANCIAL 2022-11-26 20:50:29 Doctor Unassigned, No [facility] POLICY [facility] DME/SUPPLY JUSTIFICATION 2022-08-13 06:01:00 Doctor Unassigned, No [facility] XR CERVICAL SPINE 2 VW 2022-08-05 17:43:18 [facility] RIGHT 2022-08-05 17:43:18 [facility]REFUSAL FOR 2022-08-05 17:20:37 [facility] ASSIGNMENT OF BENEFITS 2022-08-05 17:02:56 Doctor Unassigned, No [facility] XR SHOULDER 2+ VW RIGHT 2022-06-07 18:28:19 [facility] Encounters Start End Encounter Admission Attending Care Care Encounter Source Date/Time Date/Time Type Type Clinicians Facility Department ID 2022-09-03 Outpatient Howard, STLMLC STLMLC [id number] Common 14:13:02 [facility] [address] [facility] 2022-07-30 Outpatient Howard, STLMLC STLMLC [id number] Common 15:03:01 [facility] [address] [facility] 2022-05-07 Outpatient Howard, STLMLC STLMLC [id number] Common 14:36:03 [facility] [address] [facility] 2023-06-12 2023-06-12 Outpatient Pepper [facility] [id number] Univers 15:00:00 15:00:[address] [facility] [place] [place] 2023-05-28 2023-05-28 Outpatient Pepper [facility] [id number] Univers 14:30:00 14:30:[address] [facility] [place] [place] 2023-05-22 2023-05-22 Chelsey [facility] [id number] Univers 00:00:00 00:00:00 Gian HARTMANPEC [id number] ity of [place] [id number] [facility] s [place] [id number] [address] DI[facility] 2023-04-11 2023-04-11 [facility] [id number] [facility] 00:00:00 00:00:00 Martin ADDISON [id number] ity of [place] [id number] [facility] [place] [id number] [address] DIABETES CLINIC 2023-03-12 2023-03-12 Outpatient R JANIS [facility] [id number] Univers 15:00:00 15:00:[address] [facility] [place] [place] 2023-03-06 2023-03-06 Telephone [facility] [id number] [facility] 00:00:00 00:00:00 Gian HARTMANPEC [id number] ity of [place] [id number] [facility] [place] [id number] [address] DIABETES CLINIC 2023-01-14 2023-01-14 Outpatient R DEANA [facility] [id number] Univers 13:30:00 13:48:[address] [facility] [place] [place] 2023-01-14 2023-01-14 [facility] [id number] [facility] 13:30:00 13:48:27 Visit Martin ADDISON [id number] ity of [place] [id number] [facility] [id number] [address] DIABETES CLINIC 2022-12-17 2022-12-17 Outpatient R CLARA PATRICK [facility] [id number] Univers 10:00:00 10:00:[address] [facility] [place] [place] 2022-12-11 2022-12-11 [facility] [id number] [facility] 00:00:00 00:00:00 Clara ADDISON [id number] [id number] [id number] [facility] AND [address] DIABETES CLINIC 2022-12-10 2022-12-10 Outpatient R CLARA PATRICK [facility] [id number] Univers 14:30:00 14:30:00 CLARA PATRICK [facility] 2022-12-10 2022-12-10 [facility] [id number] Univers 00:00:00 00:00:00 Martin ADDISON [id number] ity of [place] [id number] [facility] [id number] [address] DIAB[facility] CLINIC 2022-12-09 2022-12-09 [facility]phone [facility] [id number] [facility] 00:00:00 00:00:00 Clara ADDISON [id number] ity of [place] [id number] [facility] [place] [id number] [address] DI[facility]ES [facility]IC 2022-11-26 2022-11-26 Outpatient R DEANA [facility] [id number] Univers 15:30:00 15:49:04 MARTIN [facility] 2022-11-26 2022-11-26 [facility] [id number] Univers 15:30:00 15:49:04 Visit Martin ADDISON [id number] ity of [place] [id number] [facility] [place] [id number] [address] DIABETES CLINIC 2022-11-26 2022-11-26 Orders Doctor THI [id number] Univers 00:00:00 00:00:00 Only Unassigned, VIRGILIO [id number] ity of [place] [facility] [id number] Satish as [id number] [facility] 009 Branch 2022-11-05 2022-11-05 Outpatient R CECE [facility] [id number] Univers 14:00:00 14:00:00 JETHRO [facility] 2022-10-29 2022-10-29 [facility] [id number] Univers 00:00:00 00:00:00 yoniadryMEERA [id number] it [facility] [id number] [facility] [id number] [facility] PRIMARY & 198 Branch SPECIALTY CARE 2022-10-22 2022-10-22 Outpatient R DEANA [facility] [id number] Univers 15:00:00 15:00:[address] [facility] [place] [place] 2022-10-21 2022-10-21 Outpatient R HARMONYZANE [facility] [id number] Univers 13:00:00 13:00:00 ANDREAROSANGELAdavidchiki [facility] 2022-10-17 2022-10-17 (TEL) STLC STLMLC [id number] Co mmon 00:00:00 00:00:00 [facility] 2022-10-15 2022-10-15 Outpatient R DEANA [facility] [id number] Univers 14:00:00 14:00:00 [facility] 2022-10-15 2022-10-15 [facility]ill [facility] [id number] Univers 00:00:00 00:00:00 [facility] [id number] [facility] [id number] [facility] [id number] [facility] [place] [address] Branch DIABETES [facility]IC 2022-10-08 2022-10-08 (TEL) STLMLC STLMLC [id number] Co mmon 00:00:00 00:00:00 [facility] 2022-09-11 2022-09-11 (TEL) STLMLC STLMLC [id number] Co mmon 00:00:00 00:00:00 [facility] 2022-09-11 2022-09-11 OFFICE STLMLC STLMLC [id number] Co mmon 00:00:00 00:00:00 VISIT Spirit ESTAB PT - CHI LEVEL 4 [facility] 2022-09-10 2022-09-10 Outpatient R CECE [facility] [id number] Univers 16:00:00 16:00:[address] [facility] [place] [place] 2022-09-06 2022-09-06 Telephone Hillary [facility] [id number] Univers 00:00:00 00:00:00 MAXI baker [id number] ity of [facility] 4.2.7.2.686 [facility] [place] AT [id number] Ak natalya[address] 2022-09-06 2022-09-06 Telephone Lanny [facility] [id number] Univers 00:00:00 00:00:00 Sheryl ADDISON [id number] ity of [place] [id number] [facility] [id number] [address] DIABETES CLINIC 2022-08-13 2022-08-13 Outpatient R HILLARY [facility] [id number] Univers 14:00:00 15:50:10 keisha BAKER of [facility] 2022-08-13 2022-08-13 Office Sheryl Ca [facility] [id number] Univers 14:00:00 15:50:10 [facility] 350 .[id number] ity of [place] [id number] [facility] [place] [id number] [address] DIABETES [facility]INIC 2022-08-13 2022-08-13 Orders Doctor NESS [id number] [id number] Univers 00:00:00 00:00:00 Only Unassigned, VIRGILIO 350.1.13.10 ity of [place] [facility] 4.2.7.2.686 Satish as [phone] [place] [address] [address] 2022-08-07 2022-08-07 (TEL) STLMLC STLMLC [id number] Co mmon 00:00:00 00:00:00 Spirit - [facility] 2022-08-05 2022-08-05 Hospital [facility] 1.2.840.114 [id number] Univers 11:21:07 23:59:00 [facility] 350.1.13.[address] [facility] 4.2.7.2.686 [facility] [phone] [facility] PRIMARY & [address] SPECIALTY CARE 2022-08-05 2022-08-05 Office [facility] 1.2.840.114 [id number] Univers 11:40:00 12:00:00 [facility] 350.1.13.[address] [facility] 4.2.7.[address] [place] [address] [phone] [facility] PRIMARY & [address] SPECIALTY CARE 2022-08-05 2022-08-05 Outpatient R [facility] [id number] Univers 11:40:00 11:40:00 keisha BAKER [facility] 2022-08-05 2022-08-05 Orders Doctor NESS 1.2.840.114 [id number] Univers 00:00:00 00:00:00 Only Unassigned, VIRGILIO 350.1.13.10 ity of [place] [facility] 4.2.7.2.[address] [place] [address] [phone] [facility] [address] 2022-07-29 2022-07-29 Outpatient R [facility] 436 [id number] Univers 16:00:00 16:00:00 keisha BAKER of [facility] 2022-06-24 2022-06-24 Outpatient R [facility] 444 [id number] Univers 11:40:00 11:40:00 keisha BAKER of [facility] 2022-06-07 2022-06-07 Hospital [facility] 1.2.840.114 [id number] Univers 13:11:58 23:59:00 Encounter Jethro SPECIALTY 350.1.13.10 ity of [facility] 4.2.7.2.686 [facility] AT [phone] Ak terrence CHERY 809 [facility] 2022-06-07 2022-06-07 [facility] 1.2.119.531 [id number] Univers 13:20:00 13:44:39 Visit Jethro GERMAN 350.1.13.10 ity [facility] 4.2.7.2.686 [place] AT [phone] Ak terrence [place] [facility] 2022-06-07 2022-06-07 Outpatient Pepper DODGE [facility] [id number] Univers 13:20:00 13:44:[address] [facility] [place] [place] 2022-06-07 2022-06-07 Outpatient Pepper DODGE [facility] [id number] Univers 13:20:00 13:44:[address] [facility] [place] [place] 2022-06-07 2022-06-07 Outpatient Pepper DODGE [facility] [id number] Univers 13:20:00 13:20:[address] [facility] [place] [place] 2022-05-30 2022-05-30 Outpatient Pepper DODGE [facility] [id number] Univers 13:10:00 13:10:[address] [facility] [place] [place] 2022-05-22 2022-05-22 Orders Doctor THI 1.2.840.114 [id number] Univers 00:00:00 00:00:00 Only Unassigned, VIRGILIO 350.1.13.10 ity of [place] [facility] 4.2.7.2.686 Satish as [phone] [address] 2022-05-07 2022-05-07 OFFICE [facility] [id number] Co mmon 00:00:00 00:00:00 VISIT Spirit ESTAB PT - [facility] LEVEL 4 [facility] 2022-05-07 2022-05-07 (TEL) [facility] [id number] Co mmon 00:00:00 00:00:00 Spirit - [facility] 2022-04-18 2022-04-18 Orders Doctor THI Alvarez2.840.114 [id number] Univers 00:00:00 00:00:00 Only Unassigned, VIRGILIO 350.1.13.10 ity of [place] [facility] 4.2.7.2.686 Satish as [phone] [address] 2021-06-15 2021-06-15 Office Christine Christa [facility] Rodriguez 1.2.840.114 [id number] Univers 14:04:32 15:05:28 Visit Salazar Girard 350.1.13.10 it y of [facility] [place] [phone] [place] [address] [address] 2021-06-15 2021-06-15 Outpatient R CHRISTA KING [facility] [id number] Univers 14:30:00 14:30:[address] [facility] [place] [place] 2021-06-08 2021-06-08 Outpatient R CHRISTINE CHRISTA [facility] [id number] Univers 14:00:00 14:00:[address] [facility] [place] [place] 2021-06-04 2021-06-04 Outpatient JESSE GOMEZ [facility] [id number] Univers 13:00:00 13:00:[address] [facility] [place] [place] 2021-01-25 2021-01-25 Orders Doctor NESS 1.2.840.114 [id number] 00:00:00 00:00:00 Only Unassigned, VIRGILIO 350.1.13.10 [place] [facility] [id number] 2021-01-25 2021-01-25 Orders Doctor NESS 1.2.840.114 [id number] Univers 00:00:00 00:00:00 Only Unassigned, VIRGILIO 350.1.13.10 ity of [place] [facility]ITAL 4.2.7.2.686 Satish as [phone] [address] 2021-01-15 2021-01-15 Orders Doctor THI 1.2.840.114 [id number] 00:00:00 00:00:00 Only Unassigned, VIRGILIO 350.1.13.10 [place] [facility] 4.2.7.2.686 [id number] 2021-01-15 2021-01-15 Orders Doctor THI Thomas.2.840.114 [id number] Univers 00:00:00 00:00:00 Only Unassigned, VIRGILIO 350.1.13.10 ity of [place] [facility]OSPITAL 4.2.7.2.686 Satish as [phone] [facility] [address] 2020-11-17 2020-11-17 Case Ronaldo [facility] 1.2.840.114 [id number] 00:00:00 00:00:00 Management Dallas Oates MULTISPEC 350.1.13.10 IALTY 4.2.7.2.686 CENTER [phone] [facility] 2020-11-17 2020-11-17 Transition Molly Hernandez 1.2.840.114 [id number] 00:00:00 00:00:00 of Care Viviana Person Chiu 350.1.13.10 [place] 4.2.7.2.686 [id number] [id number] 2020-11-17 2020-11-17 Transition Molly Hernandez 1.2.840.114 [id number] Univers 00:00:00 00:00:00 of Care Viviana Person Chiu 350.1.13.10 i ty of [place].2.7.2.[place] [phone] [facility] [address] 2020-11-17 2020-11-17 Case Ronaldo [facility] 1.2.840.114 [id number] Univers 00:00:00 00:00:00 Management Dallas Oates MULTISPEC 350.1.13.10 ity [facility] 4.2.7.2.[place] [phone] [facility] AND CLARICE [address] [facility] 2020-11-12 2020-11-16 [facility] Jeronimo [place]ogue 1.2.840.1 14 [id number] 18:33:00 16:20:00 Encounter Julian Gonzales 350.1.13.10 [place] cou[facility]ter [facility] 4.2.7.2.686 Sammie Tarango [phone] Tyler Trevizo 095 [address] Marin Shahzad Suthar, Krishna Hemant 2020-11-12 2020-11-16 Inpatient X TOMAS VTADRIANNE [facility] [id number] Univers 18:33:00 16:20:00 CHU valdes of [facility] 2020-11-12 2020-11-16 [facility] Jeronimo [place] 1.2.840.1 14 [id number] [facility] 18:33:00 16:20:00 Encounter Julian Gonzales 350.1.13.10 ity of [facility] 4.2.7.2.686 [place] Severo [place]ine [phone] Medical Tyler Trevizo 095 [facility], Chu Moreno 2020-11-14 2020-11-14 Telephone [employer] [facility] 1.2.840.114 [id number] 00:00:00 00:00:00 samuel, SPECIALTY 350.1.13.10 [place] CARE 4.2.7.2.686 CENTER AT [phone] [address] 2020-11-14 2020-11-14 Telephone [facility] 1.2.840.114 [id number] [facility] 00:00:00 00:00:00 samuel, SPECIALTY 350.1.13.10 ity of [place] CARE 4.2.7.2.686 [facility] AT [phone] [address] 2020-11-13 2020-11-13 Transition Molly Verdugo 1.2.840.114 [id number] 00:00:00 00:00:00 of Care Lizbeth Chiu 350.1.13.10 [place] [phone] [facility] 2020-11-13 2020-11-13 Transition Molly Verdugo 1.2.840.114 [id number] [facility] 00:00:00 00:00:00 of Care Lizbeth Chiu 350.1.13.10 it y of [place]2.7.2.[place] [phone] [place] [address] [address] 2020-11-07 2020-11-11 [facility] Jeronimo Hogue [facility] 1.2.840.1 14 [id number] 06:48:00 14:50:00 Encounter Annette Conrad 350.1.13.10 [place] 4.2.7.2.686 [facility] [phone] [facility] 2020-11-07 2020-11-11 Inpatient X DEEDEE CONRAD [facility] [id number] [facility] 06:48:00 14:50:00 ANNETTE ity of [facility] 2020-11-07 2020-11-11 Hospital Jeronimo Hogue [facility] 1.2.840.1 14 [id number] Univers 06:48:00 14:50:00 Encounter Annette Conrad 350.1.13.10 ity of [place] 4.2.7.2[address] [facility] [phone] [address] 2020-07-12 2020-07-12 Hospital Harmony-Zane Carrin 1.2.840.114 [id number] 11:56:24 23:59:00 Encounter yonion, Pediatric 350.1.13.10 [place] and 4.2.7.2.686 Adult [id number] [address] 2020-07-12 2020-07-12 Hospital HarmonyZane Carrin 1.2.840.114 7 [id number] [facility] 11:56:24 23:59:00 Encounter andreaumon, Pediatric 350.1.13.10 ity of [place] and [place]2.7.2.686 [place] [phone] [address] 2020-07-12 2020-07-12 Office [facility] 1.2.840.114 [id number] 11:00:10 13:58:54 Visit njumon, Pediatric 350.1.13.10 [place] and 4.2.7.2.686 Adult [phone] [address] 2020-07-12 2020-07-12 Office Harmony-Zane Carrin 1.2.840.114 [id number] Univers 11:00:10 13:58:54 Visit njumon, Pediatric 350.1.13.10 ity of [place] and 4.2.7.2.686 [place] [phone] [facility] Primary [address] [facility] 2020-07-12 2020-07-12 Outpatient R HARMONY-KU [facility] [id number] Univers 11:00:00 11:00:00 YONIADRY ity of [place] [facility] 2020-07-03 2020-07-03 Orders Doctor THI 1.2.840.114 [id number] 00:00:00 00:00:00 Only Unassigned, VIRGILIO 350.1.13.10 [place] [facility] 4.2.7.2.686 [phone] 009 2020-07-03 2020-07-03 Orders Doctor THI 1.2.840.114 [id number] Univers 00:00:00 00:00:00 Only Unassigned, VIRGILIO 350.1.13.10 ity of [place] HOSPITAL 4.2.7.2.686 Satish as [phone] [address] 2020-06-02 2020-06-02 [facility] 1.2.840.114 [id number] Univers 12:31:11 14:20:12 Visit Edilma Amador 350.1.13.10 ity [facility] 4.2.7.2.[place] Profess[place] [phone] Ak dic[address] 2020-06-02 2020-06-02 Outpatient R AD, [facility] [id number] Univers 13:00:00 13:00:[address] [facility] [place] 2020-06-02 2020-06-02 Orders Doctor NESS 1.2.840.114 [id number] Univers 00:00:00 00:00:00 Only Unassigned, VIRGILIO 350.1.13.10 ity of [place] [facility]OSPITAL 4.2.7.2.686 Satish as [phone] [address] 2020-05-26 2020-05-26 Outpatient R AD, [facility] [id number] Univers 10:45:00 10:45:[address] [facility] [place] 2020-05-26 2020-05-26 Telemedici [facility] 1.2.840.114 [id number] Univers 08:07:24 08:37:24 ne Visit Edilma Amador 350.1.13.10 ity of [place].7.2.[place] [phone] [address] 2020-05-12 2020-05-12 Out[facility] [id number] Univers 13:00:00 13:00:[address] [facility] [place] 2020-04-25 2020-04-25 [facility] 1.2.840.114 [id number] Univers 15:50:23 23:59:00 Encounter Edilma Rueda Perry 350.1.13.10 ity of [place].2.[place] Phil [place] [phone] [address] 2020-04-25 2020-04-25 Outpatient R [facility] [id number] Univers 00:00:00 00:00:[address] [facility] [place] 2020-04-25 2020-04-25 Orders Doctor THI 1.2.840.114 [id number] Univers 00:00:00 00:00:00 Only Unassigned, VIRGILIO 350.1.13.10 ity of [place] [facility]OSPITAL 4.2.7.2.686 Satish as [phone] [address] 2020-04-14 2020-04-14 [facility] 1.2.840.114 [id number] Univers 14:15:54 14:56:38 Visit Edilma Rueda [place] 350.1.13.10 ity of [place] 4[place]2.7.2.[place] [phone] [address] 2020-04-14 2020-04-14 Outpatient [facility] [id number] Univers 13:30:00 13:30:[address] [facility] [place] [place] 2020-04-13 2020-04-13 Orders Doctor THI 1.2.840.114 [id number] Univers 00:00:00 00:00:00 Only Unassigned, VIRGILIO 350.1.13.10 ity of [place] [facility]OSPITAL 4.2.7.2.686 Satish as [phone] [address] 2019-11-01 2019-11-01 Telephone [place], [facility] 1.2.840.114 [id number] Univers 00:00:00 00:00:00 Jethro HEALTH 350.1.13.10 it y of [place] 4.2.7.2.686 [facility] [phone] [facility] Primary & [address] Specialty Care 2019-10-28 2019-10-28 Telephone [facility] 1.2.840.114 [id number] Univers 00:00:00 00:00:00 Jethro HEALTH 350.1.13.10 it y of [place] 4.2.7.2.686 [facility] [phone] [facility] Primary & [address] Specialty Care 2019-10-26 2019-10-26 Office [facility] 1.2.840.114 [id number] Univers 14:08:12 15:44:07 Visit Jethro HEALTH 350.1.13.10 it y of [place] 4.2.7.2.686 [facility] [phone] [facility] Primary & [address] Specialty Care 2019-10-07 2019-10-07 [facility] 1.2.840.114 [id number] Univers 00:00:00 00:00:00 Jethro ZAVALA 350.1.13.10 i ty [facility] [place].7.2.[place] [phone] [facility] [address] 2019-10-06 2019-10-06 Outpatient [facility] [id number] Univers 10:39:27 23:59:00 JETHRO valdes of [facility] 2019-10-06 2019-10-06 [facility] Cece Aleida 1.2.840.441 [id number] Univers 10:39:00 23:59:00 Encounter Jethro Mendez 350.1.13.10 ity of [facility] 4.2.7.2.686 Satish as [phone] [facility] [address] 2019-10-06 2019-10-06 [facility] Cece Aleida 1.2.556.907 [id number] Univers 09:41:27 16:32:00 Encounter Jethro Mendez 350.1.13.10 ity of [facility] 4.2.7.2.686 Satish as [phone] [facility] [address] 2019-10-06 2019-10-06 Orders Doctor THI 1.2.840.114 [id number] Univers 00:00:00 00:00:00 Only Unassigned, VIRGILIO 350.1.13.10 ity of [place] [facility] 4.2.7.2.686 Satish as [phone] [facility] [address] 2019-05-28 2019-05-28 Office Regalado, [facility] 1.2.840.114 [id number] Univers 13:10:51 15:03:17 Visit Nesha Amador 350.1.13.10 i ty of [place] 4.2.7.2.[place] [phone] Ak dical nal [address] Building Results Test [...] NOT 1092) ACCURATE CRE ATININE CLEARANCE IN NM EDICTING GLOMERULAR FILT RATION RATE. ESTIMATED GFR [...] 0-0 (AKER) (test code = 413) 0.00POCT-GLUCOSE [id number] 17:50:00 Test Item Value Reference Range Interpretation Comments POC-GLUCOSE METER 118 mg/dL 70-110 H TESTED AT [place] [address] ([facility]) (test code = KISHA Pabon [facility] 1538) 33832 POCT-GLUCOSE [id number] 11:59:00 Test Item Value Reference Range Interpretation Comments POC-GLUCOSE METER 247 mg/dL 70-110 H TESTED AT [place] [address] ([facility]) (test code = KISHA Pabon [facility] 1538) [address]37 POCT-GLUCOSE [id number] 07:54:00 Test Item Value Reference Range Interpretation Comments POC-GLUCOSE METER 141 mg/dL 70-110 H TESTED AT [place] [address] ([facility]) (test code = KISHA Pabon [facility] 1538) 20059 CBC W/PLT COUNT & AUTO [id number] 03:45:00 Test Item Value Reference Range Interpretation [...] K/ L 0.00-0.20 (test code = 417) [id number] 03:29:00 Test Item Value Reference Range Interpretation Comments MAGNESIUM (BEAKER) 1.8 mg/dL 1.6-2.6 Specimen slightly (test code = 627) hemolyzed BASIC METABOLIC [id number] 03:29:00 Test Item Value Reference Range Interpretation [...] NOT APPLICABLE FOR DIALYSIS PATIEN TS. POCT-GLUCOSE [id number] 00:05:00 Test Item Value Reference Range Interpretation Comments POC-GLUCOSE METER 117 mg/dL 70-110 H TESTED AT [facility] ([facility] [place]) (test code = KISHA GARCÍA [place] 1538) 566[address] POCT-GLUCOSE [id number] 18:17:00 Test Item Value Reference Range Interpretation Comments POC-GLUCOSE METER 141 mg/dL 70-110 H TESTED AT [facility] ([facility]) (test code = KISHA Pabon [facility] 1538) 75617 CREATINE KINASE (CK), TOTAL AND [id number] 15:43:00 Test Item Value Reference Range Interpretation Comments CREATINE KINASE TOTAL (BEAKER) 31 U/L 29-200 (test code = 380) CREATINE KINASE-MB (BEAKER) (test 1.3 ng/mL 0.0-6.6 code = 750) CREATINE KINASE-MB INDEX (BEAKER) 4.2 % (test code = 395) Effective 08/09/2014: CK-MB Reference Range ChangeNew: 0.0-6.6 Previous: 0.0-4.9CK-MB Reference Range:<6.7 Normal6.7-10.0 Borderline>10.0 Abnormal BLOOD GAS, [id number] 15:26:00 Test Item Value Reference Range Interpretation [...] (test code = 1819) 35.0 % POCT-GLUCOSE [id number] 11:45:00 Test Item Value Reference Range Interpretation Comments POC-GLUCOSE METER 122 mg/dL 70-110 H TESTED AT [facility] ([facility]) (test code = KISHA Pabon [facility] 1538) 30559 CREATINE KINASE (CK), TOTAL AND [id number] 10:29:00 Test Item Value Reference Range Interpretation Comments CREATINE KINASE TOTAL (BEAKER) 31 U/L 29-200 (test code = 380) CREATINE KINASE-MB (BEAKER) (test 1.5 ng/mL 0.0-6.6 code = 750) CREATINE KINASE-MB INDEX (BEAKER) 4.8 % (test code = 395) Effective 08/09/2014: CK-MB Reference Range ChangeNew: 0.0-6.6 Previous: 0.0-4.9CK-MB Reference Range:<6.7 Normal6.7-10.0 Borderline>10.0 Abnormal TROPONIN [id number] 10:29:00 Test Item Value Reference Range Interpretation [...] failure, acidosis, acute neurological disease, and persistent tachyarrhythmia.[id number] 10:22:00 Test Item Value Reference Range Interpretation Comments PARTIAL THROMBOPLASTIN TIME 22.5 seconds 22.5-36.0 (BEAKER) (test code = 760) PROTHROMBIN TIME/[id number] 10:21:00 Test Item Value Reference Range Interpretation Comments PROTIME (BEAKER) (test code = 12.4 seconds 11.7-14.7 759) INR (BEAKER) (test code = 370) 0.9 <=5.9 RECOMMENDED COUMADIN/WARFARIN INR THERAPY RANGESSTANDARD DOSE: 2.0 - 3.0 Includes: PROPHYLAXIS for venous thrombosis, systemic embolization; TREATMENT for venous thrombosis and/or pulmonary embolus.HIGH RISK: Target INR is 2.5-3.5 for patients with mechanical heart valves.BLOOD GAS, [id number] 10:17:00 Test Item Value Reference Range Interpretation [...] (test code = 1819) 40.0 % PLATELET [id number] 10:13:00 Test Item Value Reference Range Interpretation Comments PLATELET COUNT (BEAKER) (test 111 K/CU MM 150-430 L code = 756) Notes Date/Time Note Provider Source 2023-04-11 [facility] 15:09:00-00:00 Medication refilled per protocol 2023-04-11 Formatting of this note might be differe nt from the original. Ginna Mirza [facility] 14:55:10-00:00 Vikki Zamudio is a 62 year old female Pt requesting refill for Rx tiZANidine 2 mg tablet and gabapentin 300 mg capsule, please advise [id number] - [place], [place] - [address] AT [facility] [address] [place] [address] Electronically signed by Ginna Mirza at 0 04/11/2023 2:55 PM CDT
[2023-06-04] MEDS ORDERED: MORPHINE 2 MG/ML SYR ONE ×2 (22:46→23:44)
[2023-06-04 22:57] LABS: Absolute Lymphocytes (CBC) 2.3 K/uL (0.7-4.9); Lymphocytes % 26.2 % (15.3-44.8); MCV 82.9 fL (80-100); MPV 7.5 fL (7.6-11.3); Platelets 170 thou/uL (152-406); RBC Red Blood Cell Count 4.58 M/uL (3.86-4.86)
[2023-06-04 23:05] LABS: Albumin 3.2 g/dL (3.4-5.0); Bilirubin Total 0.5 mg/dL (0.2-1.0); Potassium 3.7 mEq/L (3.5-5.1); Protein, Total 6.3 g/dL (6.4-8.2)
[2023-06-05 00:46] LABS: Specific Gravity 1.022 (1.005-1.030); Urine Bilirubin NEGATIVE (Negative); Urine Blood Negative (Negative); Urine Clarity Clear (Clear); Urine Color Colorless (Yellow); Urine Glucose NEGATIVE (Negative); Urine Protein NEGATIVE (Negative); Urine Urobilinogen Normal (Normal)
--- NOTE | 2023-06-05 00:50 | EDPHYS ---
Physician Documentation [facility] Name: Vikki Zamudio Age: 62 yrs Sex: Female : 1960 Arrival Date: 06/04/2023 Time: 22:08 Bed 17 Private MD: ED Physician Donta An HPI: 06/04 23:13 This 62 yrs old Female presents to ER via EMS with complaints of Back pain. rn 23:13 The patient presents with pain that is acute. The symptoms are located in the low back. rn Onset: The symptoms/episode began/occurred today. The pain radiates to the abdomen. Modifying factors: The patient symptoms are alleviated by remaining still, the patient symptoms are aggravated by any movement. Severity of symptoms: At their worst the symptoms were moderate, in the emergency department the symptoms have improved. The patient has experienced similar episodes in the past. Patient reports low back pain, began today, stays in bed so denies any injury. Reports pain with rotation and any movement. No radiation down legs. No weakness of legs. No bowel or bladder problems. Does also report some right lower quadrant abdominal pain that began today as well. No fever. No vomiting or diarrhea.. Historical: - Allergies: 22:13 No Known Allergies; jb4 - PMHx: 22:13 CHF; COPD; GERD; High Cholesterol; Hypercarbia; Hypertension; Hypothyroidism; Panic jb4 Attacks; Sleep Apnea; - PSHx: 22:13 section; Appendectomy; jb4 - Immunization history:: Adult Immunizations up to date. - Social history:: Smoking status: Patient denies any tobacco usage or history of. - Family history:: not pertinent. - Hospitalizations: : No recent hospitalization is reported. ROS: 23:13 Constitutional: Negative for fever, chills, and weight loss, Cardiovascular: Negative rn for chest pain, palpitations, and edema, Respiratory: Negative for shortness of breath, cough, wheezing, and pleuritic chest pain, Abdomen/GI: Positive for right lower quadrant abdominal pain Back: Positive for lower back pain MS/Extremity: Negative for injury and deformity, Skin: Negative for injury, rash, and discoloration, Neuro: Negative for headache, weakness, numbness, tingling, and seizure. Exam: 23:13 Constitutional: This is a well developed, well nourished patient who is awake, alert, rn and in no acute distress. Sitting upright and leaning forward in bed. Cardiovascular: Regular rate and rhythm. No pulse deficits. Respiratory: Mild tachypnea (patient states her baseline) Abdomen/GI: Soft, mild right lower quadrant tenderness, no masses, no rebound Back: No spinal tenderness. No costovertebral tenderness. Pain to palpation across lower back and pain when sitting up from laying position. No skin discoloration or changes. MS/ Extremity: Pulses equal, no cyanosis. Neurovascular intact. Full, normal range of motion. Equal circumference. Neuro: Awake and alert, GCS 15, oriented to person, place, time, and situation. Cranial nerves II-XII grossly intact. Motor strength 5/5 in all extremities. Sensory grossly intact. Vital Signs: 22:10 BP 140 / 98; Pulse 95; Resp 20; Temp 98.5; Pulse Ox 95% on 4 lpm NC; Weight 124.74 kg jb4 (R); Height 5 ft. 9 in. ; 23:34 BP 145 / 89; Pulse 74; Resp 18; Pulse Ox 98% on 4 lpm NC; 4 06/05 00:20 BP 148 / 84; Pulse 102; Resp 16; Pulse Ox 98% on R/A; jb4 01:00 BP 117 / 54; Pulse 84; Resp 16; Pulse Ox 95% on 4 lpm NC; 4 06/04 22:10 Body Mass Index 40.61 (124.74 kg, 175.26 cm) [facility] MDM: 06/04 22:10 Patient medically screened. rn 06/05 00:48 Differential diagnosis: arthritis, Cholelithiasis chronic back pain, Obesity rn Osteoarthritis sprain, Ureterolithiasis. Data reviewed: vital signs, nurses notes, lab test result(s), radiologic studies, CT scan, and as a result, I will discharge patient. Counseling: I had a detailed discussion with the patient and/or guardian regarding the historical points, exam findings, and any diagnostic results supporting the discharge/admit diagnosis, lab results, radiology results, the need for outpatient follow up, to return to the emergency department if symptoms worsen or persist or if there are any questions or concerns that arise at home. Special discussion: I discussed with the patient/guardian in detail that at this point there is no indication for admission to the hospital. It is understood, however, that if the symptoms persist or worsen the patient needs to return immediately for re-evaluation. Based on the history and exam findings, there is no indication for further emergent testing or inpatient evaluation. I discussed with the patient/guardian the need to see the back specialist for further evaluation of the symptoms. I discussed with the patient/guardian the need to see the primary care provider for further evaluation of the symptoms. ED course: No acute findings and work-up today. Urinalysis negative. CT abdomen pelvis without acute findings. Patient denies increased dyspnea and reports his breathing at her baseline. Patient states normally her oxygen is 88-90 on 4 L. Currently 98% on 4 L oxygen here.. 06/04 22:11 Order name: CBC with Diff; Complete Time: 23:10 rn 06/04 22:11 Order name: CMP; Complete Time: 23:10 rn 06/04 22:11 Order name: Lipase; Complete Time: 23:10 rn 06/04 22:11 Order name: Urinalysis w/ reflexes; Complete Time: 00:48 rn 06/04 22:11 Order name: CT Abd/Pelvis - IV Contrast Only rn 06/04 22:11 Order name: IV Saline Lock; Complete Time: 22:32 rn 06/04 22:11 Order name: Labs collected and sent; Complete Time: 22:32 rn Administered Medications: 06/04 22:46 Drug: morphine IVP or IV 2 mg Route: IVP; Infused Over: 4 mins; Site: right antecubital;jb4 23:36 Drug: morphine IVP or IV 2 mg Route: IVP; Infused Over: 4 mins; Site: right antecubital;jb4 Disposition Summary: 06/05/23 00:50 Discharge Ordered Location: Home rn Problem: new rn Symptoms: have improved rn Condition: Stable rn Diagnosis - Low back pain rn Followup: rn - With: Private Physician - When: As needed - Reason: Recheck today's complaints, Re-evaluation by your physician Discharge Instructions: - Discharge Summary Sheet rn - Acute Back Pain, Adult rn Forms: - Medication Reconciliation Form rn - Thank You Letter rn - Antibiotic video production intern - Prescription Opioid Use rn - Patient Portal Instructions rn - Leadership Thank You Letter rn Prescriptions: - Diclofenac Sodium 75 mg Oral tablet,delayed release (DR/EC) - take 1 tablet by ORAL route 2 times per day; 15 tablet; Refills: 0, Product rn Selection Permitted - Cyclobenzaprine 5 mg Oral Tablet - take 1 tablet by ORAL route every 8-12 hours As needed; 10 tablet; Refills: 0, rn Product Selection Permitted Signatures: Dispatcher [employer] Donta Atwood MD MD rn Ravi Maher RN RN jb4
--- NOTE | 2023-06-05 00:50 | ER ---
Nurse's Notes [facility] Name: Vikki Zamudio Age: 62 yrs Sex: Female : 1960 Arrival Date: 06/04/2023 Time: 22:08 Bed 17 Private MD: Diagnosis: Low back pain Presentation: 06/04 22:10 Chief complaint: EMS states: Pt called for KEI back pain. Has a history of gallstones, jb4 COPD, A-fib, and CHF. Pt normally sats 85-90% on 4L NC at home. Coronavirus screen: At this time, the client does not indicate any symptoms associated with coronavirus-19. Ebola Screen: No symptoms or risks identified at this time. Initial Sepsis Screen: Does the patient meet any 2 criteria? No. Patient's initial sepsis screen is negative. Does the patient have a suspected source of infection? No. Patient's initial sepsis screen is negative. Risk Assessment: Do you want to hurt yourself or someone else? Patient reports no desire to harm self or others. Onset of symptoms was June 04, 2023. Transition of care: patient was not received from another setting of care. 22:10 Method Of Arrival: EMS: [facility] jb4 22:10 Acuity: LIZETH 3 jb4 Historical: - Allergies: 22:13 No Known Allergies; jb4 - PMHx: 22:13 CHF; COPD; GERD; High Cholesterol; Hypercarbia; Hypertension; Hypothyroidism; Panic jb4 Attacks; Sleep Apnea; - PSHx: 22:13 section; Appendectomy; jb4 - Immunization history:: Adult Immunizations up to date. - Social history:: Smoking status: Patient denies any tobacco usage or history of. - Family history:: not pertinent. - Hospitalizations: : No recent hospitalization is reported. Screenin/14 01:00 [facility] ED Fall Risk Assessment (Adult) History of falling in the last 3 months, jb4 including since admission No falls in past 3 months (0 pts) Confusion or Disorientation No (0 pts) Score/Fall Risk Level 0 - 2 = Low Risk Oriented to surroundings, Maintained a safe environment. Abuse screen: Denies threats or abuse. Nutritional screening: No deficits noted. Tuberculosis screening: No symptoms or risk factors identified. Assessment: 06/04 22:25 General: Appears in no apparent distress. uncomfortable, Behavior is calm, cooperative, jb4 agitated. Pain: Complains of pain in back Pain does not radiate. Pain currently is 8 out of 10 on a pain scale. Neuro: Level of Consciousness is awake, alert, obeys commands, Oriented to person, place, time, situation. Cardiovascular: Patient's skin is warm and dry. Respiratory: Airway is patent Respiratory effort is even, unlabored, Respiratory pattern is regular, symmetrical. GI: No signs and/or symptoms were reported involving the gastrointestinal system. : No signs and/or symptoms were reported regarding the genitourinary system. EENT: No signs and/or symptoms were reported regarding the EENT system. Derm: Skin is intact, Skin is pink, warm \T\ dry. Musculoskeletal: Circulation, motion, and sensation intact. Range of motion: intact in all extremities. 23:34 Reassessment: Patient appears in no apparent distress at this time. Patient and/or jb4 family updated on plan of care and expected duration. Pain level reassessed. Patient is alert, oriented x 3, equal unlabored respirations, skin warm/dry/pink. 06/05 00:20 Reassessment: Patient appears in no apparent distress at this time. Patient and/or jb4 family updated on plan of care and expected duration. Pain level reassessed. Patient is alert, oriented x 3, equal unlabored respirations, skin warm/dry/pink. 01:13 Reassessment: Patient appears in no apparent distress at this time. Patient and/or jb4 family updated on plan of care and expected duration. Pain level reassessed. Patient is alert, oriented x 3, equal unlabored respirations, skin warm/dry/pink. Vital Signs: 06/04 22:10 BP 140 / 98; Pulse 95; Resp 20; Temp 98.5; Pulse Ox 95% on 4 lpm NC; Weight 124.74 kg jb4 (R); Height 5 ft. 9 in. ; 23:34 BP 145 / 89; Pulse 74; Resp 18; Pulse Ox 98% on 4 lpm NC; jb4 06/05 00:20 BP 148 / 84; Pulse 102; Resp 16; Pulse Ox 98% on R/A; jb4 01:00 BP 117 / 54; Pulse 84; Resp 16; Pulse Ox 95% on 4 lpm NC; jb4 06/04 22:10 Body Mass Index 40.61 (124.74 kg, 175.26 cm) jb4 ED Course: 06/04 22:10 Patient arrived in ED. jb4 22:10 Donta An MD is Attending Physician. rn 22:13 Triage completed. jb4 22:13 Arm band placed on right wrist. jb4 23:34 Ravi Maher, RN is Primary Nurse. jb4 23:55 CT Abd/Pelvis - IV Contrast Only In Process Unspecified. EDMS 06/05 00:30 Urinalysis w/ reflexes Sent. oe 01:00 Patient has correct armband on for positive identification. Bed in low position. Call jb4 light in reach. Side rails up X 1. Client placed on continuous cardiac and pulse oximetry monitoring. NIBP monitoring applied. 01:14 No provider procedures requiring assistance completed. IV discontinued, intact, jb4 bleeding controlled, No redness/swelling at site. Pressure dressing applied. Administered Medications: 06/04 22:46 Drug: morphine IVP or IV 2 mg Route: IVP; Infused Over: 4 mins; Site: right antecubital;jb4 23:36 Drug: morphine IVP or IV 2 mg Route: IVP; Infused Over: 4 mins; Site: right antecubital;jb4 Outcome: 06/05 00:50 Discharge ordered by . rn 01:14 Discharged to home via ambulance. jb4 01:14 Condition: stable 01:14 Discharge instructions given to patient, Instructed on discharge instructions, follow up and referral plans. medication usage, Demonstrated understanding of instructions, follow-up care, medications, Prescriptions given X 2. 01:15 Patient left the ED. jb4 Signatures: Dispatcher [employer] EDMA Donta An MD MD rn Bryson, James, DULCE RN jb4 Ever Zaldivar oe
[2023-06-05 01:21] VITALS: TEMP 98.5
[2023-06-05 01:26] VITALS: BP 117/54; O2SAT 95
--- NOTE | 2023-06-06 10:11 | RAD REPORT ---
EXAM DESCRIPTION: CT - Abdomen Pelvis W Contrast - 06/05/2023 5:49 am CLINICAL HISTORY: 62 years Female ABD AND BACK PAIN COMPARISON: CT scan of the abdomen and pelvis dated March 15, 2021 as well as ultrasound of the abdom en dated March 17, 2023 TECHNIQUE: Images were obtained in axial, sagittal, and coronal planes. This exam was performed according to our departmental dose-optimization program which includes use of Automated Exposure Control, adjustment of the mA and/or kV according to patient size and/or use of iterative reconstruction technique. FINDINGS: No abnormality involving the liver, spleen, pancreas, or adrenal glands bilaterally. Radha lithiasis. Image degradation related to patient body size. No obstructing renal or ureteral calculi bilaterally. No hydronephrosis bilaterally. Unremarkable hayden dder. Appendix not well identified however no secondary signs for appendicitis. No bowel obstruction, perfo ration, or inflammation. Marked diverticulosis left colon with no associated inflammatory change. Calcification of abdominal aorta with no dilatation seen. Unremarkable portal vein. No adenopathy or abnormal fluid collections seen. Small periumbilical hernia which contains only mesenteric fat. No abnormality in the lower lungs bilaterally. No acute osseous abnormality. IMPRESSION: No acute intra-abdominal abnormality. Cholelithiasis. Diverticulosis left colon with no associated inflammatory change. Electronically signed by: Nimisha Gaxiola MD 06/05/2023 12:19 AM CDT Due to temporary technical issues with the PACS/Fluency reporting system, reports are being signed by the in house radiologists without review as a courtesy to insure prompt reporting. The interpreting radiologist is fully responsible for the content of the report.
== END 2023-06-05 01:15 | disposition home or self-care (01) ==
LOC: ER 22:08
DX: M54.50 Low back pain, unspecified (principal); I10 Essential (primary) hypertension
CPT/HCPCS: 85025; 36415; 81003; 83690; 80053; 74177; 96374; 99284; Q9967; J2270 ×2